=== PATIENT | female | born 1950 | race Caucasian/White ===

== ENCOUNTER → 2018-02-10 10:15 | Outpatient (CLI) | payer MEDICARE, SELFPAY ==
--- NOTE | 2018-02-10 | BRBX_PTH ---
PATIENT: LITO GONZALEZ LOC: [facility] U#:[id number] AGE/SX: 75/F ROOM: RE02/10/[address]: Dr. Mars Sanchez MD : [id number] BED: DIS: SPEC #: [id number] RECD: 02/10/18 14:33 STATUS: AJ LINDA #: [id number] CONRADO: 02/10/18 00:[address]: Mars Sanchez DEPT: SURGICAL PATHOLOGY RECD BY: Hal Jean ENTERED: 02/10/18 14:33 SP TYPE: BREAST BX OTHR DR: Dr. Marleny Camacho MD Tissues: Left breast, NOS Procedures: Surgery Specimen Level IV HEADER OPERATION: Left breast stereotactic needle core biopsy PRE-OP DIAGNOSIS: Left UIQ density at prior biopsy site TISSUE SUBMITTED: Left breast ISCHEMIC TIME: 1 minute FIXATION TIME: 8 hours MICROSCOPIC DIAGNOSIS Left breast, upper inner quadrant density at prior biopsy site, stereotactic needle core biopsy: Focal area of dense fibrosis, foreign body giant cell reaction and old hemorrhage. Fatty breast tissue with focal minimal fibrocystic changes and intraductal hyperplasia without atypia. A minute fragment of hyalinized fibroadenoma. Focal microcalcification. Negative for malignancy. AUDRA:forrest 02/11/18 COMMENT Please make reference to previous specimen ([id number]) left breast, stereotactic needle core biopsy, with diagnosis of adenosis and intraductal hyperplasia without atypia and hyalinized fibroadenoma with focal calcification. Correlation with clinical, radiologic findings and appropriate follow up are necessary. MICROSCOPIC DESCRIPTION Slides are reviewed. GROSS DESCRIPTION Received in fixative is one container labeled with the patient's name and designated left breast. The specimen consists of multiple elongated fragments of marquez-yellow fibroadipose tissue mixed with blood clot that in aggregate measure 5 x 3 x 1 cm. The entire specimen is submitted in eight cassettes. / AUDRA:forrest 02/10/18 TC:5 CPT: 49435
--- NOTE | 2018-02-10 12:24 | PCM.OPRPT ---
Problem List (1) Abnormal mammogram of left breast Status: Acute Report of Operation Date of Procedure: 02/10/18 Pre-Operative Diagnosis: r92.8 abnormal mammogram left Post-Operative Diagnosis: Same Surgery/Procedure Performed:: 37220 stereotactic breast biopsy left Type of Anesthesia:: Local Description of Procedure: Patient was brought into the stereotactic unit placed in the prone position on the fissure table. The left breast was brought down through the opening. A medial to lateral view was obtained. Previous biopsy clip and biopsy area was identified. ?15? views were obtained. I prepped the breast with Betadine. I injected 1% lidocaine plain. A skin hiro was made. Local was injected deep into the breast and the needle was advanced. 2 more stereo views were obtained. The needle was fired 360? circumferential biopsies were obtained. I then backed the needle 10 mm and I took more stereotactic breast biopsies. I then placed a small titanium clip in the biopsy cavity. The breast was x-rayed the clip was in good placement. I sutured the skin closed with a [id number] suture of 4-0 nylon. Sterile dressings were applied. Standard mammograms were obtained. The patient tolerated the procedure well. - Admit VTE Documentation VTE Present on Admission: No VTE Mechan Device Prophylaxis: None VTE Pharm Prophylaxis ordered?: No Reason prophylaxis not ordered:: Treatment Not Indicated
--- NOTE | 2018-02-10 12:32 | OP.PCM_ITS ---
Problem List (1) Abnormal mammogram of left breast Status: Acute Report of Operation Date of Procedure: 02/10/18 Pre-Operative Diagnosis: r92.8 abnormal mammogram left Post-Operative Diagnosis: Same Surgery/Procedure Performed:: 19919 stereotactic breast biopsy left Type of Anesthesia:: Local Description of Procedure: Patient was brought into the stereotactic unit placed in the prone position on the fissure table. The left breast was brought down through the opening. A medial to lateral view was obtained. Previous biopsy clip and biopsy area was identified. ?15? views were obtained. I prepped the breast with Betadine. I injected 1% lidocaine plain. A skin hiro was made. Local was injected deep into the breast and the needle was advanced. 2 more stereo views were obtained. The needle was fired 360? circumferential biopsies were obtained. I then backed the needle 10 mm and I took more stereotactic breast biopsies. I then placed a small titanium clip in the biopsy cavity. The breast was x-rayed the clip was in good placement. I sutured the skin closed with a figure-of- eight suture of 4-0 nylon. Sterile dressings were applied. Standard mammograms were obtained. The patient tolerated the procedure well. - Admit VTE Documentation VTE Present on Admission: No VTE Mechan Device Prophylaxis: None VTE Pharm Prophylaxis ordered?: No Reason prophylaxis not ordered:: Treatment Not Indicated
== END ==
PROVIDERS: Family Provider Internal Medicine; PCP Internal Medicine; Visit Provider Surgery
DX: D24.2 Benign neoplasm of left breast (principal); N60.12 Diffuse cystic mastopathy of left breast; N60.92 Unspecified benign mammary dysplasia of left breast; I47.1 Supraventricular tachycardia; I70.0 Atherosclerosis of aorta; I48.0 Paroxysmal atrial fibrillation; I10 Essential (primary) hypertension; G93.40 Encephalopathy, unspecified; E11.65 Type 2 diabetes mellitus with hyperglycemia; E66.01 Morbid (severe) obesity due to excess calories; Z68.41 Body mass index [BMI] 40.0-44.9, adult; Z79.82 Long term (current) use of aspirin; Z79.84 Long term (current) use of oral hypoglycemic drugs; Z79.899 Other long term (current) drug therapy
CPT/HCPCS: 19081; 88305; J7050; A4648

== ENCOUNTER → 2018-08-15 09:09 | Outpatient (CLI) | payer MEDICARE, SELFPAY ==
[2018-02-06 09:25] VITALS: BMI 43.7
--- NOTE | 2018-08-15 09:14 | BI_ITS ---
MAMMOGRAPHY - UNILATERAL DIAGNOSTIC: LEFT BREAST REASON FOR EXAM: Female, 68 years old. Six-month follow-up of stereotactic biopsy of the nodular density in the upper slightly medial portion of the left breast. PERTINENT HISTORY: Non-contributory. TECHNIQUE: Digital unilateral breast ernie (3D mammographic acquisition) in the CC and MLO projections. 2-D mediolateral oblique (MLO) and craniocaudad (CC) views of both breasts were obtained. CAD: Full Field Digital Mammography with Computer Added Detection was performed. COMPARISON: Comparison is made with prior outside examination dated November 19, 2017. FINDINGS: Breast Composition: There are scattered areas of fibroglandular density. A tissue marker is seen within nodular density in the slightly upper medial portion of the left breast. The nodular density has increased in size as compared to prior study. This most likely secondary to possible hematoma. Further follow-up is recommended. No other significant abnormalities are identified. BI/DIAG MAMM W/CAD, UNILAT IMPRESSION: Status post biopsy of a nodular density in the slightly upper medial portion of the left breast as described. The nodular density at the biopsy site as increase in size and may be related to postoperative film. Further follow-up is recommended. ASSESSMENT CATEGORY: BIRADS Category 3: Probably Benign - Short-Interval Follow-up Suggested. A letter regarding these results will be sent to the patient by the facility within 30 days. Approximately 10% of breast cancers are not detected by mammography. A normal mammogram should not delay biopsy of a clinically suspicious abnormality. Electronically Signed: Murali Malhotra MD at 10:33 EST Tel [phone], Service support ,
--- OUTSIDE RECORDS SUMMARY | 2018-10-19 16:08 | XMS RPT_ITS ---
:1950 Author Organization OHIP Support Name Relationship Address Phone OSIRIS, ADA Unavailable . + [place] [address] ANIBAL GONZALEZ Unavailable [address] + [place] [address] R Unavailable Unavailable Unavailable OSIRIS, ADA Unavailable Unavailable + ANIBAL GONZALEZ Unavailable [address] + [place] [address] R Unavailable Unavailable Unavailable OSIRIS, ADA Unavailable . + [place] [address] ANIBAL GONZALEZ Unavailable [address] + [place] [address] R Unavailable Unavailable Unavailable OSIRIS, ADA Unavailable . + [place] [address] ANIBAL GONZALEZ Unavailable [address] + [place] [address] R Unavailable Unavailable Unavailable OSIRIS, ADA Unavailable . + [place] [address] ANIBAL GONZALEZ Unavailable [address] + [place] [address] R Unavailable Unavailable Unavailable OSIRIS, ADA Unavailable . + [place] [address] ANIBAL GONZALEZ Unavailable [address] + [place] [address] R Unavailable Unavailable Unavailable OSIRIS, ADA Unavailable . + [place] [address] ANIBAL GONZALEZ Unavailable [address] + [place] [address] R Unavailable Unavailable Unavailable OSIRIS, ADA Unavailable . [phone] [place] [address] ANIBAL GONZALEZ Unavailable [address] [phone] [place] [address] R Unavailable Unavailable Unavailable Care Team Providers Name Role Phone TALAMPAS, ABBY D Referring Unavailable TALAMPAS, ABBY D Attending Unavailable TALAMPAS, ABBY D Referring Unavailable TALAMPAS, ABBY D Referring Unavailable TALAMPAS, ABBY D Referring Unavailable TALAMPAS, ABBY D Referring Unavailable TALAMPAS, ABBY D Attending Unavailable TALAMPAS, ABBY D Referring Unavailable Laura, Mars Attending Unavailable Laura, Mars Referring Unavailable Talampas, Abby Primary Care Unavailable [place], Mars Attending Unavailable Talampas, Abby Referring Unavailable Ac Hubbard Attending Unavailable Talampas, Abby Referring Unavailable Talampas, Abby Primary Care Unavailable Celia Petit Attending Unavailable [place], Mars Attending Unavailable Talampas, Abby Referring Unavailable Talampas, Abby Primary Care Unavailable [place] Attending Unavailable Talampas, Abby Primary Care Unavailable Laura, Mars Attending Unavailable Talampas, Abby Referring Unavailable Talampas, Abby Primary Care Unavailable Laura, Mars Attending Unavailable PROBLEMS PROBLEMS DATE TYPE CONDITION / CODE ATTENDING STATUS SOURCE 08/21/2018 Unknown R92.8 - Other Mars Sanchez Active [place] abnormal and [facility] inconclusive Hospital findings on Repository diagnostic imaging of breast / R92.8(ICD-10) 12/18/2017 Active Unknown / NA Active [facility] UNK(Unknown) [facility] [place] Repository 11/19/2017 Active Encounter for NA Active [facility] screening mammogram [facility] [place] for malignant Repository neoplasm of breast / Z12.31(ICD-10) 05/08/2017 Active Type 2 diabetes NA Active [facility] mellitus with other [facility] [place] specified Repository complication / E11.69(ICD-10) 05/08/2017 Active Hyperlipidemia, NA Active [facility] unspecified / [facility] [place] E78.5(ICD-10) Repository 03/26/2016 Active Essential (primary) NA Active [facility] hypertension / [facility] [place] I10(ICD-10) Repository 11/01/2017 Active Type 2 diabetes NA Active [facility] mellitus without [facility] [place] complications / Repository E11.9(ICD-10) 11/01/2017 Active 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 [place] [address] OFFICE VISIT Date of Service: 08/21/18 MR#: [id number] Acct: [id number] Name: LITO GONZALEZ Rep #: [id number] : 1950 Provider: Mars Sanchez MD Age/Sex: 68/F Location: [facility] Status: Draft Intake Intake Visit Reasons: 6 MONTH F/U L Breast U/S 08/15/18 Chief Complaint: 6 month left breast post biopsy Supervisor Fur Dressing Required: No Is patient in pain?: No Allergies No Known Allergies Allergy (Verified 08/21/18 12:47) Medications Aspirin [Aspirin, Baby] 81 mg PO DAILY@0800 #30 tab.chew 09/21/15 [Rx Confirmed 02/18/18] metformin 500 mg tablet 500 mg PO QDAY tab 10/25/17 [History Confirmed 02/18/18] metoprolol succinate ER 50 mg tablet,extended release 24 hr 50 mg PO DAILY #90 tab 07/09/18 [Rx] Is last menstrual period known: No Post menopausal: Yes Patient : No PFSH Medical History Valvular heart disease (Chronic) Sepsis (Acute) Diverticulitis (Acute) Encephalopathy (Acute) DKA (diabetic ketoacidoses) (Acute) Arthritis (Acute) Paroxysmal SVT (supraventricular tachycardia) (Acute) Hypertension (Chronic) Aortic valve calcification (Chronic) Paroxysmal atrial fibrillation (Chronic) Diabetes type 2, uncontrolled (Chronic) Morbid obesity (Chronic) Microcalcification of left breast on mammogram (Acute) Surgical History History of total right knee replacement (TKR) (Chronic) History of appendectomy (Chronic) History of total hysterectomy (Chronic) History of total left knee replacement (Chronic) S/P laparoscopic cholecystectomy (Acute) history left breast stereotactic biopsy (Acute 02/10/18) Family History Father COPD (chronic obstructive pulmonary disease) CAD (coronary artery disease) Mother Cancer Breast cancer Social History Smoking Status: Never smoker second hand exposure: No alcohol intake: never substance use type: does not use caffeine: No what type of physical activity do you participate in: none frequency: does not exercise seatbelt use: always HPI HPI HPI: LITO GONZALEZ, is a 68 F who presents to the office today for follow-up from a left stereotactic breast biopsy which was completed on 02/10/2018 pathology report came back as focal area of dense fibrosis foreign body giant cell reaction and old hemorrhage. Fatty breast tissue with focal minimal fibrocystic changes and intraductal hyperplasia without atypia. There is minute fragments of a hyalinized fibroadenoma and a few focal microcalcifications she recently obtained a mammogram on the left side on August 15, 2018. This showed status post biopsy of a nodular density in the slightly upper medial portion of the left breast. Nodular density at the biopsy site is increased in size and may be related to postoperative and they recommended further films in a short interval she has not been having any pain she has not noticed any cellulitis or signs of infection. Exam Chest Other: Biopsy site on the left side is healing without signs of infection. I cannot palpate any nodular abnormalities within her left breast. Her axillary exam is negative on the left side and a left supraclavicular exam is negative. The right side also shows normal fibroglandular pattern no new lumps or bumps are identified her axillary exam on the right side is negative as is her supraclavicular exam. Assessment AND Plan Problems 1. Abnormal mammogram of left breast R92.8 Plan The patient will be seen at this time and she will be able to obtain her routine mammograms in another 6 months on both sides. I will see her back at that time. Coding Level of Care Code Off vis,est,level 2 Diagnoses Abnormal mammogram of left breast R92.8 Date Mars Sanchez MD Cosigner Signature: Date (if applicable) CC: DIAG MAMM W/CAD, Observed: 08/15/2018 Status: F Source: K[place]STYN [place] 9:15 AM [facility] REPOSITORY [facility] Imaging Services [address] [place] [address] DIAG MAMM W/CAD, UNILAT MR#: [id number] Acct: [id number] Name: LITO GONZALEZ Rep #: [id number] : 1950 F 68 From: Murali Malhotra MD PCP: Abby Camacho MD Status: REG CLI Study: DIAG MAMM W/CAD, UNILAT Date of Exam: 08/15/18 Exam# [id number] Ordering Dr: Mars Sanchez MD MAMMOGRAPHY - UNILATERAL DIAGNOSTIC: LEFT BREAST REASON FOR EXAM: Female, 68 years old. Six-month follow- up of stereotactic biopsy of the nodular density in the upper slightly medial portion of the left breast. PERTINENT HISTORY: Non-contributory. TECHNIQUE: Digital unilateral breast antonio (3D mammographic acquisition) in the CC and MLO projections. 2-D mediolateral oblique (MLO) and craniocaudad (CC) views of both breasts were obtained. CAD: Full Field Digital Mammography with Computer Added Detection was performed. COMPARISON: Comparison is made with prior outside examination dated November 19, 2017. FINDINGS: Breast Composition: There are scattered areas of fibroglandular density. A tissue marker is seen within nodular density in the slightly upper medial portion of the left breast. The nodular density has increased in size as compared to prior study. This most likely secondary to possible hematoma. Further follow-up is recommended. No other significant abnormalities are identified. BI/DIAG MAMM W/CAD, UNILAT IMPRESSION: Status post biopsy of a nodular density in the slightly upper medial portion of the left breast as described. The nodular density at the biopsy site as increase in size and may be related to postoperative film. Further follow-up is recommended. ASSESSMENT CATEGORY: BIRADS Category 3: Probably Benign - Short-Interval Follow- up Suggested. A letter regarding these results will be sent to the patient by the facility within 30 days. Approximately 10% of breast cancers are not detected by mammography. A normal mammogram should not delay biopsy of a clinically suspicious abnormality. Electronically Signed: Murali Malhotra MD at 10:33 EST Tel [phone], Service support , CC: Mars Sanchez MD; Abby Camacho MD Animal Cruelty Investigation Supervisor: Signed PROGRESS Observed: 05/12/2018 Status: COMPLETED Source: [place] 1:21 PM [facility] [place] REPOSITORY HNO ID: [id number] Author: Abby Camacho Service: (none) Author Type: Physician Type: Progress Notes Filed: 05/26/2018 12:43 AM Note Text: Patient presents with: Recheck: Follow up Imm/Inj: Flu Vaccine SUBJECTIVE: Lito Gonzalez is a 67 year old year old lady here today for 6 month follow up appointment for review of medical conditions. Sleeps well. Some nocturia but able to go back to sleep easily. Mostly once a night. Treadmill at home Plans to start back at 15 minutes and work up to 20 minutes. Had insect bites on legs--triple antibiotic for over a week. PAST MEDICAL HISTORY Diagnosis Date - ABNORMAL LIVER FUNCTION STUDY 10/20/2007 - Arrhythmia - Diabetes (HCC) - GENERAL OSTEOARTHROSIS 05/10/2008 - HYPERGLYCEMIA 10/20/2007 - HYPERLIPIDEMIA NEC/NOS 10/12/2005 - HYPERTENSION NOS 10/12/2005 - Impaired fasting glucose 10/20/2007 - Intramural leiomyoma of uterus 1995 - Obesity, unspecified - Palpitations 2003 hospitalized September 2003 for evaluation - Polycythemia, secondary 03/28/2011 - Pure hypercholesterolemia - TACHYCARDIA NOS 04/03/2005 Current Outpatient Prescriptions: metFORMIN (GLUCOPHAGE) 500 mg tablet Take 1 tablet by mouth daily with breakfast. blood sugar diagnostic (BLOOD GLUCOSE TEST) test strip Test blood sugar(s) 4 times daily. Dx: Type 2 DM - Uncontrolled E11.65 Insulin: Yes; Accucheck [facility] Medical: [phone] aspirin, enteric coated (ASPIRIN, ENTERIC COATED) 81 mg EC tablet Take 1 tablet by mouth once daily. metoprolol succinate ER (TOPROL XL) 50 mg 24 hr tablet Take 1 tablet by mouth once daily. Lancets lancets Test blood sugar(s) 4 times daily. Dx: Type 2 DM - Uncontrolled E11.65 Insulin: Yes BRANNON-600 WITH VITAMIN D 600 MG-200 UNIT TAB Take one(1) tablet two(2) times daily. COMPOUNDED PRESCRIPTION Herbal Laxative Take as directed. GLUCOSAMINE 1,000 MG ORAL TAB Take one(1) tablet daily. benzonatate (TESSALON PERLE) 100 mg capsule Take 2 capsules by mouth three times daily as needed. (Patient not taking: Reported on 05/12/2018 ) naproxen sodium (ALEVE) 220 mg tablet Take 1 tablet by mouth twice daily with meals. TAKE WITH FOOD (Patient not taking: Reported on 05/12/2018 ) ranitidine (ZANTAC) 150 mg tablet Take 1 tablet by mouth once daily as needed (Attempting to wean prilosec). No current facility-administered medications for this visit. OBJECTIVE: BP 130/60 Pulse 76 Resp 20 Wt 106.3 kg (234 lb 6.4 oz) BMI 47.34 kg/m? Patient is alert, oriented times 3, no apparent distress, affect is bright, reactive. Last 5 Encounter BP Readings: Date: BP: 05/12/2018 130/60 11/06/2017 120/70 10/23/2017 122/70 05/08/2017 110/80 12/31/2016 128/78 Last 5 Encounter Wt Readings: Date: Wt: 05/12/2018 106.3 kg (234 lb 6.4 oz) 11/06/2017 105.7 kg (233 lb) 10/23/2017 106.1 kg (234 lb) 05/08/2017 104.3 kg (230 lb) 12/31/2016 100.7 kg (222 lb) Heart: Regular rate, rhythm, no murmurs, gallops, rubs. Lungs: Clear to auscultation, bilaterally, breathing non labored. Ext: No cyanosis, clubbing; mild doughy bilateral lower extremities edema. resolving insect bites--pink papules Component Latest Ref Rng AND Units 05/01/2017 11/01/2017 05/07/2018 Protein, Total 6.3 - 8.0 g/dL 7.1 Albumin 3.9 - 4.9 g/dL 4.5 Calcium 8.5 - 10.2 mg/dL 9.8 9.9 10.1 Bilirubin, Total 0.2 - 1.3 mg/dL 0.7 Alkaline Phosphatase 34 - 123 U/L 63 AST 13 - 35 U/L 23 Glucose 74 - 99 mg/dL 103 (H) 114 (H) 107 (H) BUN 7 - 21 mg/dL 25 (H) 23 (H) 24 (H) Creatinine 0.58 - 0.96 mg/dL 0.91 0.90 0.92 Sodium 136 - 144 mmol/L 143 142 141 Potassium 3.7 - 5.1 mmol/L 4.4 4.5 4.3 Chloride 97 - 105 mmol/L 102 104 100 CO2 22 - 30 mmol/L 28 28 26 Anion Gap 9 - 18 mmol/L 13 10 15 ALT 7 - 38 U/L 27 eGFR- >60 >60 >60 eGFR-All Other Races . >60 >60 >60 WBC 3.70 - 11.00 k/uL 7.82 RBC 3.90 - 5.20 m/uL 4.99 Hemoglobin 11.5 - 15.5 g/dL 15.7 (H) Hematocrit 36.0 - 46.0 % 50.4 (H) MCV 80.0 - 100.0 fL 101.0 (H) MCH 26.0 - 34.0 pG 31.5 MCHC 30.5 - 36.0 g/dL 31.2 RDW-CV 11.5 - 15.0 % 13.0 Platelet Count 150 - 400 k/uL 199 MPV 9.0 - 12.7 fL 11.7 Absolute nRBC <0.01 k/uL <0.01 Cholesterol, Total <200 mg/dL 180 185 Triglyceride <150 mg/dL 96 108 HDL Cholesterol >39 mg/dL 38 (L) 37 (L) LDL Cholesterol <100 mg/dL 123 (H) 126 (H) Non HDL Cholesterol <130 mg/dL 142 (H) 148 (H) Fasting Time hrs 9 9 VLDL Cholesterol <30 mg/dL 19 22 TC:HDL Ratio <5.10 4.74 5.00 LDL:HDL Ratio <2.54 3.24 (H) 3.41 (H) Creatinine, Ur Random (UCRR) 20 - 300 mg/dL 28.5 28.5 Albumin, Urine Random 0.0 - 23.0 mg/L <12.0 <12.0 Albumin/Creat Ratio 0 - 30 mg/g Not calculated Not calculated Hemoglobin A1C 4.3 - 5.6 % 6.2 (H) 6.0 (H) 5.9 (H) Estimated Average Glucose mg/dL 131 126 123 TSH 0.400 - 5.500 uU/mL 1.880 ASSESSMENT AND PLAN: Encounter Diagnosis ICD-10-CM 1. Controlled type 2 diabetes mellitus without complication, without long-term current use of insulin ([facility]) E11.9 HGB A1C COMP METABOLIC PANEL CBC 2. Hypertension goal BP (blood pressure) < 140/90 I10 COMP METABOLIC PANEL CBC 3. Hyperlipidemia associated with type 2 diabetes mellitus ([facility]) E11.69 LIPID PANEL BASIC E78.5 4. BMI 45.0-49.9, adult ([facility]) Z68.42 5. Need for vaccination Z23 INFLUENZA SEASONAL HIGH DOSE AGE 65+ 6. Polycythemia, secondary D75.1 CBC 7. Generalized OA M15.9 Above issues addressed with patient. Patient involved in shared decision making for management of medical issues. History and medications reviewed. Epic updated as needed Refills taken care of and meds adjusted as indicated after reviewed history, exam and labs. Health Maintenance reviewed. Updated record and/or ordered tests as recorded. Encouraged on efforts at healthy diet and regular exercise and adequate sleep. Needs to keep working on diet and exercise with lifestyle changes for effective weight loss as well as control of DM, and control of BP and lipids. The majority of the visit was spent counseling and/or coordinating care for the patient. Prno-sz-[id number] time was at least 25 minutes. Abby Camacho MD PROGRESS Observed: 05/12/2018 Status: COMPLETED Source: [place] 1:06 PM [facility] REPOSITORY HNO ID: [id number] Author: Helga Coy LPN Service: (none) Author Type: (none) Type: Progress Notes Filed: 05/26/2018 12:43 AM Note Text: 67 year old female here for INACTIVATED INFLUENZA VACCINE. Season Patient is identified by name and date of : Yes [] CONTRAINDICATIONS color enhanced section Age less than 6 months? No Allergy to eggs, chicken, chicken feathers, or chicken dander? No Allergy to thimerosal (a preservative) or formaldehyde, gelatin? No History of severe reaction to any vaccine component or a previous dose of influenza vaccination? No History of Guillain-[place] Syndrome within 6 weeks after a previous influenza vaccine? No Patient is not moderately or severely ill? No Current temperature greater or equal to 100.4F? No History of Bone Marrow Transplant prior 6 months or solid organ transplant in the past 3 months ? No History of fainting after a prior injection or medical procedure? No- ? If patient has fainted in the past, the CDC recommends sitting or lying down for 15 minutes after the vaccination. [] VERIFICATION color enhanced section Was the answer Yes for any of the above contraindications? No contraindications present. Acceptable to proceed with vaccine. Patient/guardian agrees the above answers are true to the best of their knowledge? Yes Flu vaccine information sheet given? Yes See immunization activity in [facility] for details of immunizations adminstered today. Patient age: [age] year old For The Flu Season 6-35 months old: Fluzone 0.25 ml - IM (Preservative Free) 3 years of age: Fluzone 0.5 ml - IM (Preservative Free) 3 years and older: Fluzone 0.5 ml- IM-(with Preservatives) 65+ years old: 2-49 years old Fluzone High-Dose 0.5 ml - IM (Preservative Free) FLUMIST- intranasal REMEMBER: If patient is less than 9 years of age and this is the first vaccine of Influenza to be received in any flu season, they should receive a second dose in one months time. CNOV Observed: 05/12/2018 Status: COMPLETED Source: [place] 11:40 AM [facility] REPOSITORY Office Visit (INTMWS) LITO GONZALEZ ([id number]) 1950 F Date Time Provider Department 05/12/18 11:40 AM ABBY CAMACHO INTMWS During your visit today, we recorded the following information about you: Pulse Respiration Blood pressure Weight 76/minute 20/minute 130/60 106.3 kg Helga Coy ORLY 05/26/2018 12:43 AM Signed 67 year old female here for INACTIVATED INFLUENZA VACCINE. [id number] Season Patient is identified by name and date of : Yes [] CONTRAINDICATIONS color enhanced section Age less than 6 months? No Allergy to eggs, chicken, chicken feathers, or chicken dander? No Allergy to thimerosal (a preservative) or formaldehyde, gelatin? No History of severe reaction to any vaccine component or a previous dose of influenza vaccination? No History of Guillain-[place] Syndrome within 6 weeks after a previous influenza vaccine? No Patient is not moderately or severely ill? No Current temperature greater or equal to 100.4F? No History of Bone Marrow Transplant prior 6 months or solid organ transplant in the past 3 months ? No History of fainting after a prior injection or medical procedure? No- ? If patient has fainted in the past, the CDC recommends sitting or lying down for 15 minutes after the vaccination. [] VERIFICATION color enhanced section Was the answer Yes for any of the above contraindications? No contraindications present. Acceptable to proceed with vaccine. Patient/guardian agrees the above answers are true to the best of their knowledge? Yes Flu vaccine information sheet given? Yes See immunization activity in [facility] for details of immunizations adminstered today. Patient age: [age] year old For The 1873-7498 Flu Season 6-35 months old: Fluzone 0.25 ml - IM (Preservative Free) 3 years of age: Fluzone 0.5 ml - IM (Preservative Free) 3 years and older: Fluzone 0.5 ml- IM-(with Preservatives) 65+ years old: 2-49 years old Fluzone High-Dose 0.5 ml - IM (Preservative Free) FLUMIST- intranasal REMEMBER: If patient is less than 9 years of age and this is the first vaccine of Influenza to be received in any flu season, they should receive a second dose in one months time. Abby Camacho MD 05/26/2018 12:43 AM Signed Patient presents with: Recheck: Follow up Imm/Inj: Flu Vaccine SUBJECTIVE: Lito Gonzalez is a 67 year old year old lady here today for 6 month follow up appointment for review of medical conditions. Sleeps well. Some nocturia but able to go back to sleep easily. Mostly once a night. Treadmill at home Plans to start back at 15 minutes and work up to 20 minutes. Had insect bites on legs--triple antibiotic for over a week. PAST MEDICAL HISTORY Diagnosis Date - ABNORMAL LIVER FUNCTION STUDY 10/20/2007 - Arrhythmia - Diabetes (HCC) - GENERAL OSTEOARTHROSIS 05/10/2008 - HYPERGLYCEMIA 10/20/2007 - HYPERLIPIDEMIA NEC/NOS 10/12/2005 - HYPERTENSION NOS 10/12/2005 - Impaired fasting glucose 10/20/2007 - Intramural leiomyoma of uterus 1995 - Obesity, unspecified - Palpitations 2003 hospitalized September 2003 for evaluation - Polycythemia, secondary 03/28/2011 - Pure hypercholesterolemia - TACHYCARDIA NOS 04/03/2005 Current Outpatient Prescriptions: metFORMIN (GLUCOPHAGE) 500 mg tablet Take 1 tablet by mouth daily with breakfast. blood sugar diagnostic (BLOOD GLUCOSE TEST) test strip Test blood sugar(s) 4 times daily. Dx: Type 2 DM - Uncontrolled E11.65 Insulin: Yes; Accucheck [facility] Medical: [phone] aspirin, enteric coated (ASPIRIN, ENTERIC COATED) 81 mg EC tablet Take 1 tablet by mouth once daily. metoprolol succinate ER (TOPROL XL) 50 mg 24 hr tablet Take 1 tablet by mouth once daily. Lancets lancets Test blood sugar(s) 4 times daily. Dx: Type 2 DM - Uncontrolled E11.65 Insulin: Yes BRANNON-600 WITH VITAMIN D 600 MG-200 UNIT TAB Take one(1) tablet two(2) times daily. COMPOUNDED PRESCRIPTION Herbal Laxative Take as directed. GLUCOSAMINE 1,000 MG ORAL TAB Take one(1) tablet daily. benzonatate (TESSALON PERLE) 100 mg capsule Take 2 capsules by mouth three times daily as needed. (Patient not taking: Reported on 05/12/2018 ) naproxen sodium (ALEVE) 220 mg tablet Take 1 tablet by mouth twice daily with meals. TAKE WITH FOOD (Patient not taking: Reported on 05/12/2018 ) ranitidine (ZANTAC) 150 mg tablet Take 1 tablet by mouth once daily as needed (Attempting to wean prilosec). No current facility-administered medications for this visit. OBJECTIVE: BP 130/60 Pulse 76 Resp 20 Wt 106.3 kg (234 lb 6.4 oz) BMI 47.34 kg/m? Patient is alert, oriented times 3, no apparent distress, affect is bright, reactive. Last 5 Encounter BP Readings: Date: BP: 05/12/2018 130/60 11/06/2017 120/70 10/23/2017 122/70 05/08/2017 110/80 12/31/2016 128/78 Last 5 Encounter Wt Readings: Date: Wt: 05/12/2018 106.3 kg (234 lb 6.4 oz) 11/06/2017 105.7 kg (233 lb) 10/23/2017 106.1 kg (234 lb) 05/08/2017 104.3 kg (230 lb) 12/31/2016 100.7 kg (222 lb) Heart: Regular rate, rhythm, no murmurs, gallops, rubs. Lungs: Clear to auscultation, bilaterally, breathing non labored. Ext: No cyanosis, clubbing; mild doughy bilateral lower extremities edema. resolving insect bites--pink papules Component Latest Ref Rng AND Units 05/01/2017 11/01/2017 05/07/2018 Protein, Total 6.3 - 8.0 g/dL 7.1 Albumin 3.9 - 4.9 g/dL 4.5 Calcium 8.5 - 10.2 mg/dL 9.8 9.9 10.1 Bilirubin, Total 0.2 - 1.3 mg/dL 0.7 Alkaline Phosphatase 34 - 123 U/L 63 AST 13 - 35 U/L 23 Glucose 74 - 99 mg/dL 103 (H) 114 (H) 107 (H) BUN 7 - 21 mg/dL 25 (H) 23 (H) 24 (H) Creatinine 0.58 - 0.96 mg/dL 0.91 0.90 0.92 Sodium 136 - 144 mmol/L 143 142 141 Potassium 3.7 - 5.1 mmol/L 4.4 4.5 4.3 Chloride 97 - 105 mmol/L 102 104 100 CO2 22 - 30 mmol/L 28 28 26 Anion Gap 9 - 18 mmol/L 13 10 15 ALT 7 - 38 U/L 27 eGFR- >60 >60 >60 eGFR-All Other Races . >60 >60 >60 WBC 3.70 - 11.00 k/uL 7.82 RBC 3.90 - 5.20 m/uL 4.99 Hemoglobin 11.5 - 15.5 g/dL 15.7 (H) Hematocrit 36.0 - 46.0 % 50.4 (H) MCV 80.0 - 100.0 fL 101.0 (H) MCH 26.0 - 34.0 pG 31.5 MCHC 30.5 - 36.0 g/dL 31.2 RDW-CV 11.5 - 15.0 % 13.0 Platelet Count 150 - 400 k/uL 199 MPV 9.0 - 12.7 fL 11.7 Absolute nRBC <0.01 k/uL <0.01 Cholesterol, Total <200 mg/dL 180 185 Triglyceride <150 mg/dL 96 108 HDL Cholesterol >39 mg/dL 38 (L) 37 (L) LDL Cholesterol <100 mg/dL 123 (H) 126 (H) Non HDL Cholesterol <130 mg/dL 142 (H) 148 (H) Fasting Time hrs 9 9 VLDL Cholesterol <30 mg/dL 19 22 TC:HDL Ratio <5.10 4.74 5.00 LDL:HDL Ratio <2.54 3.24 (H) 3.41 (H) Creatinine, Ur Random (UCRR) 20 - 300 mg/dL 28.5 28.5 Albumin, Urine Random 0.0 - 23.0 mg/L <12.0 <12.0 Albumin/Creat Ratio 0 - 30 mg/g Not calculated Not calculated Hemoglobin A1C 4.3 - 5.6 % 6.2 (H) 6.0 (H) 5.9 (H) Estimated Average Glucose mg/dL 131 126 123 TSH 0.400 - 5.500 uU/mL 1.880 ASSESSMENT AND PLAN: Encounter Diagnosis ICD-10-CM 1. Controlled type 2 diabetes mellitus without complication, without long-term current use of insulin ([facility]) E11.9 HGB A1C COMP METABOLIC PANEL CBC 2. Hypertension goal BP (blood pressure) < 140/90 I10 COMP METABOLIC PANEL CBC 3. Hyperlipidemia associated with type 2 diabetes mellitus ([facility]) E11.69 LIPID PANEL BASIC E78.5 4. BMI 45.0-49.9, adult ([facility]) Z68.42 5. Need for vaccination Z23 INFLUENZA SEASONAL HIGH DOSE AGE 65+ 6. Polycythemia, secondary D75.1 CBC 7. Generalized OA M15.9 Above issues addressed with patient. Patient involved in shared decision making for management of medical issues. History and medications reviewed. Epic updated as needed Refills taken care of and meds adjusted as indicated after reviewed history, exam and labs. Health Maintenance reviewed. Updated record and/or ordered tests as recorded. Encouraged on efforts at healthy diet and regular exercise and adequate sleep. Needs to keep working on diet and exercise with lifestyle changes for effective weight loss as well as control of DM, and control of BP and lipids. The majority of the visit was spent counseling and/or coordinating care for the patient. Bxxa-cq-ddlg time was at least 25 minutes. Abby Camacho MD Referring Provider: SELF [200] Allergies As of Date: 05/12/2018 Noted Allergy Reaction LIPITOR (ATORVASTATIN) 06/27/2016 2 - Rash Comments: red itchy rash around neck--resolved after stopping med; hands froze with stiffness that started a week after taking a couple pills--resolving Date Reviewed: 05/12/2018 Reviewed by: Helga Coy LPN - Fully Assessed Reason for Visit: Recheck [92] Cmt: Follow up Imm/Inj [58] Cmt: Flu Vaccine Reason For Visit History Recorded Primary Visit Diagnosis:Controlled type 2 diabetes mellitus without complication, without long-term current use of insulin ([facility]CC) [E11.9] Other Visit Diagnoses:Hypertension goal BP (blood pressure) < 140/90 [I10] Hyperlipidemia associated with type 2 diabetes mellitus (HCC) [E11.69, E78.5] BMI 45.0-49.9, adult (HCC) [Z68.42] Need for vaccination [Z23] Polycythemia, secondary [D75.1] Generalized OA [M15.9] Order(s):INFLUENZA SEASONAL HIGH DOSE AGE 65+ [21105LAF] Order #: [id number] metFORMIN (GLUCOPHAGE) 500 mg tabletTake 1 tablet by mouth daily with breakfast.Disp: 90 tabletRfl: 3 HGB A1C [LOPYU1I] Order #: [id number] FUTURE COMP METABOLIC PANEL [SQCMP] Order #: [id number] FUTURE CBC [SQCBC] Order #: [id number] FUTURE LIPID PANEL BASIC [SQLIPB] Order #: [id number] FUTURE Prescriptions as of 05/12/2018 Sig: METFORMIN 500 MG TABLET Take 1 tablet by mouth daily * BLOOD SUGAR DIAGNOSTIC STRIPS Test blood sugar(s) 4 times d* ASPIRIN 81 MG TABLET,DELAYED * Take 1 tablet by mouth once d* METOPROLOL SUCCINATE ER 50 MG* Take 1 tablet by mouth once d* LANCETS Test blood sugar(s) 4 times d* * BRANNON-600 WITH VITAMIN D 600 MG* Take one(1) tablet two(2) haleigh* * COMPOUNDED PRESCRIPTION Herbal Laxative Take as direc* * GLUCOSAMINE SULFATE DIPOTASSI* Take one(1) tablet daily. BENZONATATE 100 MG CAPSULE Take 2 capsules by mouth thre* Patient not taking: Reported on 05/12/2018 NAPROXEN SODIUM 220 MG TABLET Take 1 tablet by mouth twice * Patient not taking: Reported on 05/12/2018 RANITIDINE 150 MG TABLET Take 1 tablet by mouth once d* Problem List As Of Date 05/12/2018 Noted Resolved BMI 45.0-49.9, adult (HCC) [Z68.42] More... TACHYCARDIA NOS [R00.0] INVALID FOR* Hypertension goal BP (blood pressure) < 140/90 *INVALID FOR* More... Hyperlipidemia associated with type 2 diabetes *INVALID FOR* Pain in joint, lower leg [M25.569] INVALID FOR*12/15/2010 Nonspecific abnormal results of liver function *INVALID FOR*03/04/2012 Diabetes mellitus type 2, controlled, without c*INVALID FOR* More... Generalized OA [M15.9] INVALID FOR* Polycythemia, secondary [D75.1] INVALID FOR* More... Colon cancer screening [Z12.11] INVALID FOR*01/05/2016 Acid indigestion [K30] INVALID FOR* Prescriptions ordered this encounter Disp Refills Start End METFORMIN 500 MG TABLET 90 t* 3 05/12/2018 Route: ORAL Sig: Take 1 tablet by mouth daily with breakfast. Medications Discontinued During This Encounter metFORMIN (GLUCOPHAGE) 500 mg tablet 90 t* 0 03/25/2018 05/12/2018 Route: ORAL Sig: Take 1 tablet by mouth daily with breakfast. Disc: Reason for discontinue is not on file. Disposition: Return in about 6 months (around 11/10/2018) for 6 months follow up. Follow-up and Disposition History Recorded Encounter Status:Closed by ABBY CAMACHO MD on 05/26/18 ALBUMIN/CREAT RATIO Collected: 05/07/2018 Status: F Source: [place] 7:53 AM [facility] REPOSITORY TYPE CODE TESTS RESULT OUT OF REFERENCE UNITS RANGE LAB UCRR 20-300 mg/dL 28.5 Creatinine,Ur ine,Ran LAB UALBR 0.0-23.0 mg/L <12.0 Albumin Urine Random LAB UALBCR 0-30 mg/g Not Albumin/Creat calculated Ratio Performed By: #### UACR #### [facility] [address], [place] [address] CBC Collected: 05/07/2018 Status: F Source: [place] 7:46 AM [facility] REPOSITORY TYPE CODE TESTS RESULT OUT OF REFERENCE UNITS RANGE LAB WBC 3.70-11.00 k/uL WBC 7.82 LAB RBC 3.90-5.20 m/uL RBC 4.99 LAB HGB 11.5-15.5 g/dL High Hemoglobin 15.7 LAB HCT 36.0-46.0 % High Hematocrit 50.4 LAB MCV 80.0-100.0 fL MCV High 101.0 LAB MCH 26.0-34.0 pG MCH 31.5 LAB MCHC 30.5-36.0 g/dL MCHC 31.2 LAB RDWCV 11.5-15.0 % RDW-CV 13.0 LAB PLTCT 150-400 k/uL Platelet Count 199 LAB MPV 9.0-12.7 fL MPV 11.7 LAB ABSNUC <0.01 k/uL Absolute nRBC <0.01 Performed By: #### CBC, CMP, LIPB, HBA1C #### [facility] [address] [place], [place] [address] COMP METABOLIC PANEL Collected: 05/07/2018 Status: F Source: [place] 7:46 AM [facility] REPOSITORY TYPE CODE TESTS RESULT OUT OF REFERENCE UNITS RANGE LAB TP 6.3-8.0 g/dL Protein, Total 7.1 LAB ALB 3.9-4.9 g/dL Albumin 4.5 LAB CA 8.5-10.2 mg/dL Calcium, Total 10.1 LAB TBIL 0.2-1.3 mg/dL Bilirubin, Total 0.7 LAB ALKP 34-123 U/L Alkaline Phosphatase 63 LAB AST 13-35 U/L AST 23 LAB GLU 74-99 mg/dL Glucose High 107 Result Comment: The [place] Diabetes Association (ADA) provides guidance for cutoff values for fasting glucose and random glucose. The ADA defines fasting as no caloric intake for at least 8 hours. Fas ting plasma glucose results between 100 to 125 mg/dL indicate increased risk for diabetes (prediabetes). Fasting plasma glucose results greater than or equal to 126 mg/dL meet the criteria for diagnosis of diabetes. In the absence of unequivocal hyperglycemia, results should be confirmed by repeat testing. In a patient with classic symptoms of hyperglycemia or hyperglycemic crisis, random plasma glucose results greater than or equal to 200 mg/dL meet the criteria for diagnosis of diabetes. Reference: Standards of Medical Care in Diabetes 2016, [place] Diabetes Association. Diabetes Care. 2016.39(Suppl 1). LAB BUN 7-21 mg/dL BUN High 24 LAB CRET 0.58-0.96 mg/dL Creatinine 0.92 LAB NA 136-144 mmol/L Sodium 141 LAB K 3.7-5.1 mmol/L Potassium 4.3 LAB CL 97-105 mmol/L Chloride 100 LAB CO2 22-30 mmol/L CO2 26 LAB AGAP 9-18 mmol/L Anion Gap 15 LAB ALT 7-38 U/L ALT 27 LAB GFRAA eGFR- Amer. >60 LAB GFRNAA . eGFR-All Other Races >60 Result Comment: eGFR (Estimated GFR) Units of measure: mL/min/1.73 meters squared eGFR is derived from the reexpressed MDRD Study equation using the following parameters: serum creatinine, age, gender and race. The creatinine assay has been calibrated to be traceable to IDMS. An eGFR <60 mL/min/1.73m2 for >3 months is consistent with chronic kidney disease. Refer to KDOQI guidelines for clinical interpretation. In patients with unstable renal function, e.g. those with acute kidney injury, the eGFR may not accurately reflect actual GFR. Performed By: #### CBC, CMP, LIPB, HBA1C #### [facility] [address] [place] [place] [id number] LIPID PANEL, BASIC Collected: 05/07/2018 Status: F Source: [place] 7:46 AM [facility] REPOSITORY TYPE CODE TESTS RESULT OUT OF REFERENCE UNITS RANGE LAB CHOL <200 mg/dL Cholesterol 185 Result Comment: <200 mg/dL, Desirable 200-239 mg/dL, Borderline high >239 mg/dL, High LAB TRIGLY <150 mg/dL Triglyceride 108 Result Comment: <150 mg/dL, Normal 150-199 mg/dL, Borderline high 200-499 mg/dL, High >499 mg/dL, Very high LAB HDL >39 mg/dL HDL-Cholesterol Low 37 Result Comment: 40-59 mg/dL, Acceptable >59 mg/dL, High: Negative risk factor for coronary heart disease <40 mg/dL, Low: Positive risk factor for coronary heart disease LAB LDL <100 mg/dL LDL-Cholesterol High 126 Result Comment: <100 mg/dL, Optimal 100-129 mg/dL, Near optimal/above optimal 130-159 mg/dL, Borderline high 160-189 mg/dL, High >189 mg/dL, Very high Secondary prevention optimal LDL Cholesterol levels are recommended to be < 70 mg/dL LAB NONHDL <130 mg/dL Non HDL High Cholesterol 148 Result Comment: <130 mg/dL, Optimal 130-159 mg/dL, Near optimal/above optimal 160-189 mg/dL, Borderline high 190-219 mg/dL, High >219 mg/dL, Very high Secondary prevention optimal non HDL Cholesterol levels are recommended to be < 100 mg/dL LAB FT hrs Fasting Time 9 LAB VLDL <30 mg/dL VLDL Cholesterol 22 LAB TCHDL <5.10 TC:HDL Ratio 5.00 LAB LDLHDL <2.54 High LDL:HDL Ratio 3.41 Result Comment: Reference: 1. National Cholesterol Education Program ATP III Guideline At-A-Glance Quick Desk Reference: National Heart, Lung, and Blood [place]. National Institutes of Health. 2001: NIH Publication No. 01-3305. 2. An International Atherosclerosis Society position paper: global recommendations for the management of dyslipidemia: executive summary, Atherosclerosis. 2014: 232(2):410-413. Performed By: #### CBC, CMP, LIPB, HBA1C #### [facility] [address] [place], [place] [address] HEMOGLOBIN A1C Collected: 05/07/2018 Status: F Source: [place] 7:46 AM [facility] REPOSITORY TYPE CODE TESTS RESULT OUT OF REFERENCE UNITS RANGE LAB HGBA1C 4.3-5.6 % High Hemoglobin A1c 5.9 LAB HBA0 mg/dL Est. Average Glucose 123 Result Comment: eAG: (Estimated average glucose) is a calculated value from HgbA1c and is leasing representative of the average blood glucose level in the last 2-3 month period. Performed By: #### CBC, CMP, LIPB, HBA1C #### [facility] [address] [place], [place] [address] CNPTOUTREACH Observed: 04/29/2018 Status: COMPLETED Source: [place] 12:00 AM [facility] REPOSITORY Patient Outreach (FAMPST) LITO GONZALEZ ([id number]) 1950 F Date Time Provider Department 04/29/18 ABBY CAMACHO During your visit today, we recorded the following information about you: Allergies As of Date: 04/29/2018 Noted Allergy Reaction LIPITOR (ATORVASTATIN) 06/27/2016 2 - Rash Comments: red itchy rash around neck--resolved after stopping med; hands froze with stiffness that started a week after taking a couple pills--resolving Date Reviewed: 11/06/2017 Reviewed by: Musa Ferrell - Fully Assessed Visit Diagnosis:Medication management [Z79.899] Order(s):ALBUMIN/CREAT RATIO RND UR [SQUACR] Order #: [id number] FUTURE Prescriptions as of 04/29/2018 Sig: X METFORMIN 500 MG TABLET Take 1 tablet by mouth daily * BLOOD SUGAR DIAGNOSTIC STRIPS Test blood sugar(s) 4 times d* BENZONATATE 100 MG CAPSULE Take 2 capsules by mouth thre* Patient not taking: Reported on 05/12/2018 NAPROXEN SODIUM 220 MG TABLET Take 1 tablet by mouth twice * Patient not taking: Reported on 05/12/2018 RANITIDINE 150 MG TABLET Take 1 tablet by mouth once d* ASPIRIN 81 MG TABLET,DELAYED * Take 1 tablet by mouth once d* METOPROLOL SUCCINATE ER 50 MG* Take 1 tablet by mouth once d* LANCETS Test blood sugar(s) 4 times d* * BRANNON-600 WITH VITAMIN D 600 MG* Take one(1) tablet two(2) haleigh* * COMPOUNDED PRESCRIPTION Herbal Laxative Take as direc* * GLUCOSAMINE SULFATE DIPOTASSI* Take one(1) tablet daily. Problem List As Of Date 04/29/2018 Noted Resolved BMI 45.0-49.9, adult (HCC) [Z68.42] More... TACHYCARDIA NOS [R00.0] INVALID FOR* Hypertension goal BP (blood pressure) < 140/90 *INVALID FOR* More... Hyperlipidemia associated with type 2 diabetes *INVALID FOR* Pain in joint, lower leg [M25.569] INVALID FOR*12/15/2010 Nonspecific abnormal results of liver function *INVALID FOR*03/04/2012 Diabetes mellitus type 2, controlled, without c*INVALID FOR* More... GENERAL OSTEOARTHROSIS [M15.9] INVALID FOR* Polycythemia, secondary [D75.1] INVALID FOR* More... Colon cancer screening [Z12.11] INVALID FOR*01/05/2016 Acid indigestion [K30] INVALID FOR* Encounter Status:Closed by DENNYS DAVIS on 05/30/18 SURGERY VISIT REPORT Observed: 02/19/2018 Status: F Source: [place] 7:53 AM [facility] REPOSITORY [facility] [address] [place] [address] OFFICE VISIT Date of Service: 02/18/18 MR#: [id number] Acct: [id number] Name: LITO GONZALEZ Rep #: [id number] : 1950 Provider: Mars Sanchez MD Age/Sex: 67/F Location: [facility] Status: Signed Intake Intake Visit Reasons: Lt Breast Bx 02/10 Chief Complaint: left breast bx Supervisor Fur Dressing Required: No Is patient in pain?: No Allergies No Known Allergies Allergy (Verified 02/18/18 09:41) Medications Aspirin [Aspirin, Baby] 81 mg PO DAILY@0800 #30 tab.chew 09/21/15 [Rx Confirmed 02/18/18] metoprolol succinate ER 50 mg tablet,extended release 24 hr 50 mg PO DAILY #90 tab 08/27/17 [Rx Confirmed 02/18/18] metformin 500 mg tablet 500 mg PO QDAY tab 10/25/17 [History Confirmed 02/18/18] Is last menstrual period known: No Post menopausal: Yes Patient : No PFSH Medical History Valvular heart disease (Chronic) Sepsis (Acute) Diverticulitis (Acute) Encephalopathy (Acute) DKA (diabetic ketoacidoses) (Acute) Arthritis (Acute) Paroxysmal SVT (supraventricular tachycardia) (Acute) Hypertension (Chronic) Aortic valve calcification (Chronic) Paroxysmal atrial fibrillation (Chronic) Diabetes type 2, uncontrolled (Chronic) Morbid obesity (Chronic) Microcalcification of left breast on mammogram (Acute) Surgical History History of total right knee replacement (TKR) (Chronic) History of appendectomy (Chronic) History of total hysterectomy (Chronic) History of total left knee replacement (Chronic) S/P laparoscopic cholecystectomy (Acute) history left breast stereotactic biopsy (Acute 02/10/18) Family History Father COPD (chronic obstructive pulmonary disease) CAD (coronary artery disease) Mother Cancer Breast cancer Social History Smoking Status: Never smoker second hand exposure: No alcohol intake: never substance use type: does not use caffeine: No what type of physical activity do you participate in: none frequency: does not exercise seatbelt use: always HPI HPI HPI: LITO GONZALEZ, is a 67 F who presents to the office today for patient is status post a left stereotactic breast biopsy on 02/10/2018. Pathology came back as focal area of dense fibrosis, foreign body giant cell reaction and old hemorrhage. Fatty breast tissue with focal minimal fibrocystic changes and intraductal hyperplasia without atypia. A minute fragment of hyalinized fibroadenoma was identified. Focal microcalcifications are identified. It was negative for malignancy. She has no complaints and is noticing only minimal bruising Exam Chest Other: Incision is clean and dry and there is no signs of infection minimal bruising is identified Assessment AND Plan Problems 1. Abnormal mammogram of left breast R92.8 Plan At this point there is no further surgical interventions that we need to perform. I think we have biopsied the area appropriately and it is benign. She will need a six-month follow-up mammogram on that left breast. Orders Orders: Coding Level of Care Code Off vis,est,level 2 Diagnoses Abnormal mammogram of left breast R92.8 02/19/18 0753 <Electronically signed by Mars Sanchez MD> Date Mars Sanchez MD Cosigner Signature: Date (if applicable) CC: Abby Camacho MD OPERATIVE REPORT Observed: 02/10/2018 Status: F Source: [place] 12:33 PM [facility] REPOSITORY [facility] Medical Records Department [address] [place] [address] [place] [address] Operative Report 02/10/18 1224 MR#: [id number] Acct: [id number] Name: LITO GONZALEZ Rep #: [id number] : 1950 67 From: Mars Sanchez MD PCP: Abby Camacho MD Status: REG CLI Y Location: [facility] Problem List (1) Abnormal mammogram of left breast Status: Acute Report of Operation Date of Procedure: 02/10/18 Pre-Operative Diagnosis: r92.8 abnormal mammogram left Post-Operative Diagnosis: Same Surgery/Procedure Performed:: [id number] stereotactic breast biopsy left Type of Anesthesia:: Local Description of Procedure: Patient was brought into the stereotactic unit placed in the prone position on the fissure table. The left breast was brought down through the opening. A medial to lateral view was obtained. Previous biopsy clip and biopsy area was identified. 15 views were obtained. I prepped the breast with Betadine. I injected 1% lidocaine plain. A skin hiro was made. Local was injected deep into the breast and the needle was advanced. 2 more stereo views were obtained. The needle was fired 360 circumferential biopsies were obtained. I then backed the needle 10 mm and I took more stereotactic breast biopsies. I then placed a small titanium clip in the biopsy cavity. The breast was x-rayed the clip was in good placement. I sutured the skin closed with a [id number] suture of 4-0 nylon. Sterile dressings were applied. Standard mammograms were obtained. The patient tolerated the procedure well. - Admit VTE Documentation VTE Present on Admission: No VTE Mechan Device Prophylaxis: None VTE Pharm Prophylaxis ordered?: No Reason prophylaxis not ordered:: Treatment Not Indicated 02/10/18 1233 <Electronically signed by Mars Sanchez MD> Date Mars Sanchez MD CC: Mars Sanchez MD; Abby Camacho MD Signed BREAST BIOPSY Observed: 02/10/2018 Status: F Source: [place] (CHOOSE SITE) 12:00 AM [facility] REPOSITORY Patient: LITO GONZALEZ : 1950 (67/F) Acct Num: [id number] Phys: Mars Sanchez MD Unit Num: [id number] Loc: [facility] Specimen: [id number] Received: 02/10/18 - 1433 Spec Type: BREAST BX TISSUES TISSUES: Left breast, NOS COMMENT Please make reference to previous specimen ([id number]) left breast, stereotactic needle core biopsy, with diagnosis of adenosis and intraductal hyperplasia without atypia and hyalinized fibroadenoma with focal calcification. Correlation with clinical, radiologic findings and appropriate follow up are necessary. GROSS DESCRIPTION Received in fixative is one container labeled with the patient's name and designated left breast. The specimen consists of multiple elongated fragments of marquez-yellow fibroadipose tissue mixed with blood clot that in aggregate measure 5 x 3 x 1 cm. The entire specimen is submitted in eight cassettes. / SJ:forrest 02/10/18 TC:5 CPT: 15178 HEADER OPERATION: Left breast stereotactic needle core biopsy PRE-OP DIAGNOSIS: Left UIQ density at prior biopsy site TISSUE SUBMITTED: Left breast ISCHEMIC TIME: 1 minute FIXATION TIME: 8 hours MICROSCOPIC DESCRIPTION Slides are reviewed. MICROSCOPIC DIAGNOSIS Left breast, upper inner quadrant density at prior biopsy site, stereotactic needle core biopsy: Focal area of dense fibrosis, foreign body giant cell reaction and old hemorrhage. Fatty breast tissue with focal minimal fibrocystic changes and intraductal hyperplasia without atypia. A minute fragment of hyalinized fibroadenoma. Focal microcalcification. Negative for malignancy. SJ:forrest 02/11/18 Signed Roberto Peterson 02/11/18 <signature on file> Performed By: #### PBRBX #### [facility] [address] [place] [address] [place], [address] SURGERY VISIT REPORT Observed: 02/08/2018 Status: F Source: [place] 9:56 AM [facility] REPOSITORY [facility] [address] [place], [place] [address] [place] [address] OFFICE VISIT Date of Service: 02/06/18 MR#: [id number] Acct: [id number] Name: LITO GONZALEZ Rep #: [id number] : 1950 Provider: Mars Sanchez MD Age/Sex: 67/F Location: [facility] Status: Signed Intake Vital Signs02/06/18 Height 4 ft 11.5 in 02/06/18 Weight: 220 lb Intake Visit Reasons: F/U U/S AND MAMMO @ [facility] 12/18/2017 Chief Complaint: Follow-up visit. Supervisor Fur Dressing Required: No Is patient in pain?: No Allergies No Known Allergies Allergy (Verified 02/06/18 09:27) Medications Aspirin [Aspirin, Baby] 81 mg PO DAILY@0800 #30 tab.chew 09/21/15 [Rx Confirmed 02/06/18] metoprolol succinate ER 50 mg tablet,extended release 24 hr 50 mg PO DAILY #90 tab 08/27/17 [Rx Confirmed 02/06/18] metformin 500 mg tablet 500 mg PO QDAY tab 10/25/17 [History Confirmed 02/06/18] [facility] Medical History Valvular heart disease (Chronic) Sepsis (Acute) Diverticulitis (Acute) Encephalopathy (Acute) DKA (diabetic ketoacidoses) (Acute) Arthritis (Acute) Paroxysmal SVT (supraventricular tachycardia) (Acute) Hypertension (Chronic) Aortic valve calcification (Chronic) Paroxysmal atrial fibrillation (Chronic) Diabetes type 2, uncontrolled (Chronic) Morbid obesity (Chronic) Surgical History History of total right knee replacement (TKR) (Chronic) History of appendectomy (Chronic) History of total hysterectomy (Chronic) History of total left knee replacement (Chronic) Family History Father COPD (chronic obstructive pulmonary disease) CAD (coronary artery disease) Mother Cancer Breast cancer Social History Smoking Status: Never smoker second hand exposure: No alcohol intake: never substance use type: does not use caffeine: No what type of physical activity do you participate in: none frequency: does not exercise seatbelt use: always HPI HPI HPI: LITO GONZALEZ, is a 67 F who presents to the office today for evaluation of an abnormal mammogram. Patient had her mammograms done at the [facility] on 12/18/2017. This showed an irregular area of the left breast most likely a scar and has a low suspicion for malignancy. Stereotactic biopsy is recommended. They stated that this was the area of a prior stereotactic biopsy. This area had become more prominent since her prior mammograms. On rolled and MLO views this appears to be somewhat elongated and resembles postsurgical scarring. The ultrasound also resembles posterior scarring. Stereotactic biopsy was recommended for confirmation. The patient has not noticed any new changes in her breast exam she has not been having any new palpable lumps and no nipple discharge. ROS General General: No weight change, appetite, fatigue, colon cancer, breast cancer or weakness HEENT HEENT: No difficulty swallowing, eye injury, eye surgery, swollen glands or hoarseness Endo Endocrine: Yes diabetes mellitus; no thyroid disease, thyroid cancer, Hair loss, heat intolerance or cold intolerance Skin Skin: No rash or changing moles Breast Breast: Yes abnormal mammogram and abnormal US; no left breast lump, right breast lump, nipple discharge, breast pain or breast enlargement Musc Musculoskeletal: Yes arthritis; no back problems, rheumatoid arthritis, gout or joint pain Cardio Cardiovascular: No murmur, pacemaker, heart disease, atrial fibrillation, high blood pressure, heart attack, heart stent, palpitations, shortness of breat with exertion or chest pain Psych Psychiatric: No depression, anxiety or hearing voices Resp Respiratory: No shortness of breath, No sleep apnea, No cough, No COPD, No asthma, No emphysema, No wheezing Gastro Gastrointestinal: No abdominal pain, No nausea or vomiting, No diarrhea, No constipation, No blood in stool, No acid reflux, No hemorrhoids, No ulcers, No gallbladder problem, No black,tarry stools Isiah Hematologic: No blood thinners, No blood disorders, No bleeding, No anemia, No blood clots Neuro Neurologic: No system reviewed and no additional complaints, except as docu, No as per HPI, No abnormal walking, No abnormal hearing, No abnormal movements, No abnormal speech, No behavioral changes, No burning sensations, No confusion, No seizure-like activity, No unsteadiness, No dizziness, No localized weakness, No frequent falls, No headache(s), No lack of coordination, No loss of vision, No memory loss, No numbness, No other visual disturbances, No radiating pain, No restless legs, No sensory deficit, No fainting, No tingling, No tremor(s), No weakness, No other Exam HENMT Head: normal to inspection, normocephalic, atraumatic Mouth: moist mucous membranes, oropharynx normal Eyes General: appearance normal, both eyes and all related structures Sclera: sclerae normal Neck Neck: no lymphadenopathy noted, trachea midline Neck mass: No Thyroid: thyroid normal Lymphatic: no lymphadenopathy noted Chest Breast inspection: normal inspection of the breasts Breast Palpation: No nipple discharge Resp Other: Respiratory Exam: Deferred Cardio Heart Sounds: no murmurs Other: Cardiac Exam: Deferred GI Other: GI Exam: Deferred Other: Rectal Exam: Deferred Extrem Other: Extremity Exam: Deferred Assessment AND Plan Problems 1. Abnormal mammogram of left breast R92.8 Plan I have discussed above with the patient. I have recommended stereotactic needle core breast biopsy with vacuum assistance. I have described the procedure to the patient. I have discussed with the patient that sometimes the stereotactic lesion may be artifact and is user dependent and therefore prior to undergoing the procedure. A marker clip will be placed to identify the location. Patient has been counseled to the risks/benefits of the procedure. I have explained the risks of the surgery, including but not limited to: infection, bleeding, injury to any blood vessels/nerves, scar tissue, missing the lesion, further surgery, etc. - the patient understands and agrees to proceed. I have answered all of the patient's questions to her satisfaction and she has no further questions. Coding Level of Care Code Off vis,est,level 3 Diagnoses Abnormal mammogram of left breast R92.8 02/08/18 0956 <Electronically signed by Mars Sanchez MD> Date Mars Sanchez MD Cosigner Signature: Date (if applicable) CC: Abby Camacho MD CNCO Observed: 12/18/2017 Status: COMPLETED Source: [facility] 12:55 PM [facility] REPOSITORY HNO ID: [id number] Author: Mammography Coordinator Service: (none) Author Type: Physician Type: Letter Filed: 12/19/2017 11:32 PM Note Text: December 18, 2017 PID: [id number] Lito Gonzalez [address] [place] [address] Dear Ms. Gonzalez, Your recent breast imaging exam on 12/18/2017 showed an abnormal area. At this time we recommend further evaluation. This does not necessarily mean that there is a serious problem in your breast, but it should not be ignored. Please contact your physician as soon as possible to discuss the results of this exam and decide what the next steps in your medical care should be. If you have already been notified of these findings, please disregard this letter. Thank you for allowing us to help in meeting your health care needs. Sincerely, Dr. Portillo Interpreting Radiologist [facility] (Abnormal) CNCO Observed: 12/18/2017 Status: COMPLETED Source: [facility] 12:55 PM [facility] REPOSITORY HNO ID: [id number] Author: Mammography Coordinator Service: (none) Author Type: Physician Type: Letter Filed: 12/19/2017 11:32 PM Note Text: December 18, 2017 PID: [id number] Lito Gonzalez [address] [place] [address] Dear Ms. Gonzalez, Your recent breast imaging exam on 12/18/2017 showed an abnormal area. At this time we recommend further evaluation. This does not necessarily mean that there is a serious problem in your breast, but it should not be ignored. Please contact your physician as soon as possible to discuss the results of this exam and decide what the next steps in your medical care should be. If you have already been notified of these findings, please disregard this letter. Thank you for allowing us to help in meeting your health care needs. Sincerely, Dr. Portillo Interpreting Radiologist [facility] (Abnormal) [facility] BREAST LTD Observed: 12/18/2017 Status: F Source: [facility] 11:25 AM [facility] REPOSITORY * * *Final Report* * * DATE OF EXAM: Dec 18 2017 11:25AM [facility] 0593 - [facility] US BREAST LTD LT / PROCEDURE REASON: call back left breast / abnormal mammogram * * * * Physician Interpretation * * * * #[id number] - [facility] DIAGNOSTIC LT UNILATERAL LEFT DIGITAL DIAGNOSTIC MAMMOGRAM WITH CAD: 12/18/2017 HISTORY: Call Back Left Breast / Abnormal Mammogram. RESULT: TECHNIQUE: The study was acquired using full field digital technology and interpreted from soft copy. Current study was also evaluated with a Computer Aided Detection (CAD). Comparison is made to exams dated: 11/19/2017 mammogram, 08/06/2016 mammogram - [facility], 08/09/2015 mammogram - [facility], and 07/28/2015 mammogram - [facility]. There are scattered fibroglandular elements in the left breast. There is a 3 cm equal density asymmetry in the left breast at 12 o'clock middle depth. This correlates with the biopsy. No other significant masses or calcifications are seen in the breast. SUSPICIOUS OF MALIGNANCY The 3 cm equal density asymmetry in the left breast most likely is fat necrosis or a previous biopsy and is at a low suspicion for malignancy. A stereotactic biopsy is recommended. #[id number] - [facility] BREAST [facility] LT ULTRASOUND OF LEFT BREAST: 12/18/2017 RESULT: Comparison is made to exams dated: 11/19/2017 mammogram, 08/06/2016 mammogram - [facility], 08/09/2015 mammogram - [facility], and 07/28/2015 mammogram - [facility]. Color flow and real-time ultrasound of the left breast were performed. There is an irregular area with an indistinct margin in the left breast at 11 o'clock middle depth. This irregular area is hypoechoic. There is an associated biopsy clip. IMPRESSION: SUSPICIOUS OF MALIGNANCY - FOLLOW-UP RECOMMENDED The irregular area in the left breast most likely is a scar and is at a low suspicion for malignancy. A stereotactic biopsy is recommended. This is at the area of prior stereotactic biopsy. This has become more prominent since the prior mammogram. On rolled and ML views this appears to somewhat elongate and resembles post surgical scarring. The ultrasound also resembles post surgical scarring. Stereotactic biopsy is recommended for confirmation. Franklin de/casimiro:12/18/2017 12:55:50 Manager Party: Camille SABILLON(Rosa)(Ruiz), [facility] letter sent: Abnormal OVERALL STUDY BIRADS: 4a Suspicious abnormality - low suspicion for malignancy Animal Cruelty Investigation Supervisor: Casimiro Transcribe Date/Time: Dec 18 2017 10:35A Dictated by : FRANKLIN PORTILLO MD This examination was interpreted and the report reviewed and electronically signed by: FRANKLIN PORTILLO MD on Dec 18 2017 12:55PM EST [id number] Observed: 12/18/2017 Status: COMPLETED Source: [facility] 11:15 AM [facility] REPOSITORY HNO ID: [id number] Author: Carey Ruvalcaba Rdms Service: (none) Author Type: (none) Type: Progress Notes Filed: 12/18/2017 11:45 AM Note Text: Radiology Service Progress Note PATIENT NAME: Lito Gonzalez DATE OF SERVICE: December 18, 2017 TIME: 11:15 AM PATIENT IDENTITY VERIFICATION COMPLETED USING TWO (2) METHODS: Patient confirmed name verbally and Date of . PATIENT GENDER DATA: Female. status: : No status: NO. PATIENT RELEVANT IMPLANT DATA REVIEWED: Not Applicable RADIOLOGY DEPARTMENT: Ultrasound PERIPHERAL IV DATA: Not applicable SIGNED BY: Carey Ruvalcaba Rdms December 18, 2017 11:15 AM [facility] DIAGNOSTIC LT Observed: 12/18/2017 Status: F Source: [facility] 10:54 AM [facility] REPOSITORY * * *Final Report* * * DATE OF EXAM: Dec 18 2017 10:54AM [facility] 0621 - [facility] DIAGNOSTIC LT / PROCEDURE REASON: call back left breast / abnormal mammogram * * * * Physician Interpretation * * * * RESULT: #[id number] - [facility] DIAGNOSTIC LT UNILATERAL LEFT DIGITAL DIAGNOSTIC MAMMOGRAM WITH CAD: 12/18/2017 HISTORY: Call Back Left Breast / Abnormal Mammogram. RESULT: TECHNIQUE: The study was acquired using full field digital technology and interpreted from soft copy. Current study was also evaluated with a Computer Aided Detection (CAD). Comparison is made to exams dated: 11/19/2017 mammogram, 08/06/2016 mammogram - [facility], 08/09/2015 mammogram - [facility], and 07/28/2015 mammogram - [facility]. There are scattered fibroglandular elements in the left breast. There is a 3 cm equal density asymmetry in the left breast at 12 o'clock middle depth. This correlates with the biopsy. No other significant masses or calcifications are seen in the breast. SUSPICIOUS OF MALIGNANCY The 3 cm equal density asymmetry in the left breast most likely is fat necrosis or a previous biopsy and is at a low suspicion for malignancy. A stereotactic biopsy is recommended. #[id number] - [facility] ULTRASOUND OF LEFT BREAST: 12/18/2017 RESULT: Comparison is made to exams dated: 11/19/2017 mammogram, 08/06/2016 mammogram - [facility], 08/09/2015 mammogram - [facility], and 07/28/2015 mammogram - [facility]. Color flow and real-time ultrasound of the left breast were performed. There is an irregular area with an indistinct margin in the left breast at 11 o'clock middle depth. This irregular area is hypoechoic. There is an associated biopsy clip. IMPRESSION: SUSPICIOUS OF MALIGNANCY - FOLLOW-UP RECOMMENDED The irregular area in the left breast most likely is a scar and is at a low suspicion for malignancy. A stereotactic biopsy is recommended. This is at the area of prior stereotactic biopsy. This has become more prominent since the prior mammogram. On rolled and ML views this appears to somewhat elongate and resembles post surgical scarring. The ultrasound also resembles post surgical scarring. Stereotactic biopsy is recommended for confirmation. Franklin de/casimiro:12/18/2017 12:55:50 Manager Party: Camille HOLDER)(Ruiz), [facility] letter sent: Abnormal OVERALL STUDY BIRADS: 4a Suspicious abnormality - low suspicion for malignancy Animal Cruelty Investigation Supervisor: Casimiro Transcribe Date/Time: Dec 18 2017 10:35A Dictated by: FRANKLIN PORTILLO MD This examination was interpreted and the report reviewed and electronically signed by: FRANKLIN PORTILLO MD on Dec 18 2017 12:55PM EST [id number] Observed: 12/06/2017 Status: COMPLETED Source: [facility] 12:00 AM [facility] REPOSITORY Telephone (INTMWS) LITO GONZALEZ ([id number]) 1950 F Date Time Provider Department 12/06/17 ABBY CAMACHO INTMWS During your visit today, we recorded the following information about you: Inna Hitesh Psr 12/06/2017 1:54 PM Signed Lito Gonzalez is calling Abby Camacho MD today. She spoke to her mail order pharmacy - they are still waiting for a script for her test strips. The office issued a script on 11/26 - and confirmation was received. Can these be recalled in? Patient is getting low on her test strips blood sugar diagnostic (BLOOD GLUCOSE TEST) test strip 300 Strip 11 11/26/2017 Sig: Test blood sugar(s) 4 times daily. ?Dx: Type 2 DM - Uncontrolled E11.65 ?Insulin: Yes; Accucheck [facility] Medical: [phone] Class: Normal Order: [id number] E-Prescribing Status: Receipt confirmed by pharmacy (11/26/2017 ?5:31 PM EDT) Inna Proctor Psr 12/06/2017 2:08 PM Signed Patient calling again. She spoke to her mail order pharmacy and re confirmed they did not receive her test strips- They are resending a request today. The mail order pharmacy gave her a number the office can call- [phone] Abby Camacho MD 12/06/2017 8:49 PM Signed The following approved medication requests have been transmitted electronically. Signed Prescriptions Disp Refills blood sugar diagnostic (BLOOD GLUCOSE TEST) test strip 300 Strip 11 Sig: Test blood sugar(s) 4 times daily. Dx: Type 2 DM - Uncontrolled E11.65 Insulin: Yes; Accucheck [facility] Medical: [phone] JAYLEN: No Authorizing Provider: ABBY CAMACHO MD Does number need called also? Zena Otoole RN 12/07/2017 10:55 AM Signed [facility] medical office closed on Saturday, please call and check on 12/09/17. Thank you, Zena Morocho LPN 12/10/2017 4:06 PM Signed called [facility] medical and had them refax the CMN for Dr Camacho signature. In provider pod for signature. Musa Ferrell 12/10/2017 6:05 PM Signed Signed order faxed back to [facility]. RIKI Weinberg, [facility] 12/11/2017 10:08 AM Signed Patient called today. She states [facility] Medical does not have this fax. She states she would like office to refax. Please advise. Allergies As of Date: 12/06/2017 Noted Allergy Reaction LIPITOR (ATORVASTATIN) 06/27/2016 2 - Rash Comments: red itchy rash around neck--resolved after stopping med; hands froze with stiffness that started a week after taking a couple pills--resolving Date Reviewed: 11/06/2017 Reviewed by: Musa Ferrell - Fully Assessed Reason for Visit: Medication Question [8228] Order(s):blood sugar diagnostic (BLOOD GLUCOSE TEST) test stripTest blood sugar(s) 4 times daily. Dx: Type 2 DM - Uncontrolled E11.65 Insulin: Yes; Accucheck [facility] Medical: [phone]: 300 StripRfl: 11 Prescriptions as of 12/06/2017 Sig: BLOOD SUGAR DIAGNOSTIC STRIPS Test blood sugar(s) 4 times d* BENZONATATE 100 MG CAPSULE Take 2 capsules by mouth thre* METFORMIN 500 MG TABLET Take 1 tablet by mouth daily * NAPROXEN SODIUM 220 MG TABLET Take 1 tablet by mouth twice * RANITIDINE 150 MG TABLET Take 1 tablet by mouth once d* ASPIRIN 81 MG TABLET,DELAYED * Take 1 tablet by mouth once d* METOPROLOL SUCCINATE ER 50 MG* Take 1 tablet by mouth once d* LANCETS Test blood sugar(s) 4 times d* * BRANNON-600 WITH VITAMIN D 600 MG* Take one(1) tablet two(2) haleigh* * COMPOUNDED PRESCRIPTION Herbal Laxative Take as direc* * GLUCOSAMINE SULFATE DIPOTASSI* Take one(1) tablet daily. Problem List As Of Date 12/06/2017 Noted Resolved BMI 45.0-49.9, adult (HCC) [Z68.42] More... TACHYCARDIA NOS [R00.0] INVALID FOR* Hypertension goal BP (blood pressure) < 140/90 *INVALID FOR* More... Hyperlipidemia associated with type 2 diabetes *INVALID FOR* Pain in joint, lower leg [M25.569] INVALID FOR*12/15/2010 Nonspecific abnormal results of liver function *INVALID FOR*03/04/2012 Diabetes mellitus type 2, controlled, without c*INVALID FOR* More... GENERAL OSTEOARTHROSIS [M15.9] INVALID FOR* Polycythemia, secondary [D75.1] INVALID FOR* More... Colon cancer screening [Z12.11] INVALID FOR*01/05/2016 Acid indigestion [K30] INVALID FOR* Prescriptions ordered this encounter Disp Refills Start End BLOOD SUGAR DIAGNOSTIC STRIPS 300 * 11 12/06/2017 Sig: Test blood sugar(s) 4 times daily. Dx: Type 2 DM - Uncontrolled E11.65 Insulin: Yes; Accucheck [facility] Medical: [phone] Medications Discontinued During This Encounter blood sugar diagnostic (BLOOD GLUCOS* 300 * 11 11/26/2017 12/06/2017 Sig: Test blood sugar(s) 4 times daily. Dx: Type 2 DM - Uncontrolled E11.65 Insulin: Yes; Accucheck [facility] Medical: [phone] Disc: Reason for discontinue is not on file. Encounter Status:Closed by MUSA FERERLL on 12/10/17 CARDIOLOGY VISIT Observed: 11/19/2017 Status: F Source: [facility] RE[facility] 11:52 AM [facility] REPOSITORY [facility] [place] [address] OFFICE VISIT Date of Service: 11/15/17 MR#: [id number] Acct: [id number] Name: LITO GONZALEZ Rep #: [id number] : 1950 Provider: Ac Hubbard MD Age/Sex: 67/F Location: [facility] Status: Signed [facility] Chief Complaint: Follow-up visit. Details: LITO GONZALEZ, is a 67 F who presents to the office today for a follow-up visit. She is a lady with a history of hypertension supraventricular tachyarrhythmia atrial fibrillation aortic sclerosis who returns for routine follow-up visit she denies any chest pain or shortness breath or paroxysmal nocturnal dyspnea pedal edema she has had no neck arm or jaw discomfort suggest angina no dizziness or diaphoresis no near syncope or syncope. She tells me that she was recently seen in your office and was noted to be doing well. Her physical exam today demonstrates clear lung martinez regular rate and rhythm no pedal edema soft 1/6 to 2/6 systolic murmur noted left sternal border. Intake Vital Signs11/15/17 Height 5 ft 11/15/17 Weight: 236 lb 11/15/17 Body Mass Index (BMI) 46.0 11/15/17 Blood Pressure 120/72 11/15/17 Blood Pressure Location Lt brachial Intake Visit Reasons: 1 YR FU (we moved from 4-3) Supervisor Fur Dressing Required: No Accompanied by: None Is patient in pain?: No Allergies No Known Allergies Allergy (Verified 11/15/17 11:26) Medications Aspirin [Aspirin, Baby] 81 mg PO DAILY@0800 #30 tab.chew 09/21/15 [Rx Confirmed 11/14/17] metoprolol succinate ER 50 mg tablet,extended release 24 hr 50 mg PO DAILY #90 tab 08/27/17 [Rx Confirmed 11/14/17] metformin 500 mg tablet 500 mg PO QDAY tab 10/25/17 [History Confirmed 11/14/17] Ejection fraction %: 65 to 70 PFS Medical History Valvular heart disease (Chronic) Paroxysmal SVT (supraventricular tachycardia) (Acute) Hypertension (Chronic) Aortic valve calcification (Chronic) Paroxysmal atrial fibrillation (Chronic) Diabetes type 2, uncontrolled (Chronic) Morbid obesity (Chronic) Arthritis (Acute) DKA (diabetic ketoacidoses) (Acute) Diverticulitis (Acute) Encephalopathy (Acute) Sepsis (Acute) Surgical History History of appendectomy (Chronic) History of total hysterectomy (Chronic) History of total left knee replacement (Chronic) History of total right knee replacement (TKR) (Chronic) Family History Father COPD (chronic obstructive pulmonary disease) CAD (coronary artery disease) Mother Cancer Social History Smoking Status: Never smoker alcohol intake: never substance use type: does not use ROS Const Const: Negative for body ache, fever(s), chills, night sweats, daytime sleepiness, difficulty sleeping, weight gain, weight loss, increased appetite, poor appetite, anorexia, other, frequent falls, headache(s), weakness, fatigue or excessive sweating Eyes Eyes: Negative for blind spots, loss of peripheral vision, transient loss of vision, change in vision, floaters, tunnel vision, other, blurry vision or double vision ENT ENT: Positive for balance problems; negative for hearing loss, tinnitus, Nosebleed/epistaxis, post nasal drip, bleeding gums, hoarseness, neck pain, dry mouth, other, dizziness, headache(s), tongue swelling or lip swelling Cardio Chest Pain: No Palpitations: No Edema: None Muscle aches with walking: None Resp Respiratory: Negative for SOB with activity, SOB at rest, SOB orthopnea\SOB lying down, Cough, Coughing up blood/hemoptysis, chest congestion, pain on inspiration, snoring, stridor, wheezing, crackles, paroxysmal nocturnal dyspnea or other GI GI: Negative nausea, vomiting, heartburn, constipation, belching, bloating, cramping, vomiting blood/hematemesis, bright, red blood in stools, black,tarry stools, loose stools, Difficulty Swallowing or other : Negative for hematuria, frequent nighttime urination/ nocturia, erectile dysfunction or abnormal vaginal bleeding Musc Musc: Positive for balance problems; negative for muscle aches/ myalgia, muscle weakness or joint pain Skin Skin: Negative redness, non-healing lesions, unusual bruising, skin ulcer, wounds, jaundice, other or rash Neuro Neuro: Negative for dizziness, lightheadedness, near syncope, syncope, orthostatic symptoms, frequent falls, headache(s), weakness, confusion, memory loss, restless legs, blurry vision, double vision, vertigo, seizures, lack of coordination or other Isiah Hematologic/Lymphatic: Negative for easy bleeding, easy bruising, enlarged lymph nodes or other Endo Endo: Negative for fatigue, cold intolerance, heat intolerance, excessive sweating, flushing, increased thirst/drinking, increased hunger, hair loss, hair growth or other Psych Psych: Negative for anxiety, depression, thoughts of harming anyone, thoughts of harming yourself, visual hallucinations, panic attacks or audible hallucinations Allergy Allergy/Immunology: Negative for throat swelling, Negative for tongue swelling, Negative for hives, Negative for rash, Negative for lip swelling Cardiology Exam Const Appearance: cooperative, healthy appearing, well developed, well groomed and no acute distress Nutritional Appearance: well nourished and average body habitus Orientation: alert, awake and oriented x3 Head Head: normal to inspection, normocephalic and atraumatic Ears: hearing grossly normal bilaterally and external ears normal Nose: external nose normal, nasal mucous membranes and turbinates normal, nares normal, septum normal, no nasal discharge Face and Sinus: face symmetric Mouth: oral mucosae normal, tongue normal, oropharynx normal and moist mucous membranes Teeth and gingiva: dentition normal Throat: posterior oropharynx normal, tonsils normal and uvula midline Eyes General: appearance normal, both eyes and all related structures Eyelids: eyelids normal Conjunctivae: conjunctivae normal Pupils: PERRL, normal by confrontation and accommodation normal EOM: EOM intact bilaterally Neck Neck: normal visual inspection, trachea midline and no JVD JVD: +5 Carotids: normal carotid upstroke and bounding pulses Chest Chest inspection: normal inspection of the chest, symmetric chest movement and normal respiratory effort Auscultation: Bilateral: Clear to Auscultation Cardio Palpation: normal PMI Rate: regular rate Rhythm: regular rhythm Heart sounds: S1 normal and S2 normal Murmur: Grade 2/6 GI GI: normal to inspection, soft, no hepatosplenomegaly and bowel sounds present Neuro General: alert, awake, oriented x3, no focal sensory deficit, gait normal and moves all extremities Skin Skin: no rashes or lesions noted Extremities Pulses: Normal: Right Femoral Pulse, Left Femoral Pulse, Right Dorsalis Pedis Pulse, Left Dorsalis Pedis Pulse, Right Posterior Tibial Pulse, Left Posterior Tibial Pulse, Right Radial Pulse, Left Radial Pulse Lower Extremity Edema: None: Bilateral Musculoskel Musculoskeletal: No joint tenderness Psych Psychological: normal affect Assessment AND Plan 1. Hypertension I10 Plan Her blood pressure appears to be under excellent control on the current medical therapy and I would not recommend we make any changes. 2. Aortic valve calcification I35.9 Per echo 09/19/15, mild Plan She does have mild aortic sclerosis but with a preserved ejection fraction of 65% and no wall motion abnormalities I would recommend serial follow-up with physical exams as well as echocardiograms as deemed necessary. 3. Paroxysmal atrial fibrillation I48.0 Plan She does not appear to have had any recurrences of the above as well. My recommendation is to continue to monitor her carefully. Thank you for allowing me to participate in the care of your patient. 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) Coding Level of Care Code Off vis,est,level 3 Diagnoses Hypertension I10 Aortic valve calcification I35.9 Paroxysmal atrial fibrillation I48.0 Coding Level of Care Code Off vis,est,level 3 Diagnoses Hypertension I10 Aortic valve calcification I35.9 Paroxysmal atrial fibrillation I48.0 11/19/17 1152 <Electronically signed by Ac Hubbard MD> Date Ac Hubbard MD Cosigner Signature: Date (if applicable) CC: Abby Camacho MD PROGRESS Observed: 11/19/2017 Status: COMPLETED Source: [place] 11:02 AM [facility] REPOSITORY HNO ID: [id number] Author: Camille Sabillon Service: (none) Author Type: (none) Type: Progress Notes Filed: 11/19/2017 11:03 AM Note Text: Radiology Service Progress Note PATIENT NAME: Lito Gonzalez DATE OF SERVICE: November 19, 2017 TIME: 11:02 AM PATIENT IDENTITY VERIFICATION COMPLETED USING TWO (2) METHODS: Patient confirmed name verbally and Date of . PATIENT GENDER DATA: Female. status: : No status: NO. PATIENT RELEVANT IMPLANT DATA REVIEWED: Not Applicable RADIOLOGY DEPARTMENT: Women's Health screening PERIPHERAL IV DATA: Not applicable SIGNED BY: Camille Sabillon November 19, 2017 11:02 AM CNCO Observed: 11/19/2017 Status: COMPLETED Source: [place] 10:38 AM [facility] REPOSITORY HNO ID: [id number] Author: Mammography Coordinator Service: (none) Author Type: Physician Type: Letter Filed: 11/20/2017 11:31 PM Note Text: November 19, 2017 PID: [id number] Lito Gonzalez [address] [place] [address] Dear Ms. Gonzalez, Your recent breast imaging exam on 11/19/2017 showed a possible finding that requires additional imaging studies for a complete evaluation. Most such findings are probably benign (not cancer). Please call [phone] to schedule an appointment for these tests if you have not already done so. Your breast images and report will be kept on file here as part of your permanent medical record and are available for your continuing care. Thank you for allowing us to help in meeting your health care needs. Sincerely, Dr. Byers Interpreting Radiologist [facility] (Additional imaging) [facility] SCREENING Observed: 11/19/2017 Status: F Source: [place] 10:31 AM [facility] REPOSITORY * * *Final Report* * * DATE OF EXAM: Nov 19 2017 10:31AM WO [id number] - [facility] SCREENING / PROCEDURE REASON: Encounter for screening mammogram for malignant neoplasm of breast * * * * Physician Interpretation * * * * RESULT: #[id number] - [facility] SCREENING BILATERAL DIGITAL SCREENING MAMMOGRAM WITH CAD: 11/19/2017 HISTORY: Encounter For Screening Mammogram For Malignant Neoplasm Of Breast /Screening Mammogram - patient reports NO breast symptoms /Priors available for comparison. RESULT: TECHNIQUE: The study was acquired using full field digital technology and interpreted from soft copy. Current study was also evaluated with a Computer Aided Detection (CAD). Comparison is made to exams dated: 08/06/2016 mammogram - [facility], 08/09/2015 mammogram - [facility], 07/28/2015 mammogram, and 07/27/2014 mammogram - [facility]. There are scattered fibroglandular elements in both breasts. There is a biopsy clip in the left breast. There is a focal asymmetry in the left breast central to the nipple middle depth. No other significant masses, calcifications, or other findings are seen in either breast. IMPRESSION: INCOMPLETE: NEEDS ADDITIONAL IMAGING EVALUATION The focal asymmetry in the left breast is indeterminate. Additional views are recommended. Lorene cox/casimiro:11/19/2017 10:38:08 Manager Party: Camille SABILLON(Rosa)(Ruiz), [facility] letter sent: Additional Imaging Needed Mammogram BI-RADS: 0 Incomplete: needs additional imaging evaluation Animal Cruelty Investigation Supervisor: Casimiro Transcribe Date/Time: Nov 19 2017 10:11A Dictated by: LORENE BYERS MD This examination was interpreted and the report reviewed and electronically signed by: LORENE BYERS MD on Nov 19 2017 10:38AM EST [id number] PROGRESS Observed: 11/06/2017 Status: COMPLETED Source: [place] 11:59 AM [facility] HNO ID: [id number] Author: Abby Camacho Service: (none) Author Type: Physician Type: Progress Notes Filed: 11/14/2017 11:17 PM Note Text: Patient presents with: Radiology Mammogram: at [facility] SUBJECTIVE: Lito Gonzalez is a 67 year old year old lady here today for 6 month follow up appointment for review of medical conditions. Noted that someone had cough that resolved with chocolate covered coconut. Tried a piece after supper but sugar up to 166 after that. No better with cough. Treated for sinobronchitis through --better now. Cough resolved. had illness too. Doxy and tessalon perles given. Had tried Mucinex and Vicks Nyquil--helped her sleep at night. Was coughing for a bout a month. Sugars AM and 2 hours after supper. AMs run 100 to110 range and PM 110 to 130's. Knows pasta shoots up sugar. Noted has been to senior analyst developer. Treadmill 15 minutes started back daily--can go to 20 minutes once used to it. Got off this winter. PAST MEDICAL HISTORY Diagnosis Date - ABNORMAL LIVER FUNCTION STUDY 10/20/2007 - Arrhythmia - Diabetes (HCC) - GENERAL OSTEOARTHROSIS 05/10/2008 - HYPERGLYCEMIA 10/20/2007 - HYPERLIPIDEMIA NEC/NOS 10/12/2005 - HYPERTENSION NOS 10/12/2005 - Impaired fasting glucose 10/20/2007 - Intramural leiomyoma of uterus 1995 - Obesity, unspecified - Palpitations 2003 hospitalized September 2003 for evaluation - Polycythemia, secondary 03/28/2011 - Pure hypercholesterolemia - TACHYCARDIA NOS 04/03/2005 Current Outpatient Prescriptions: benzonatate (TESSALON PERLE) 100 mg capsule Take 2 capsules by mouth three times daily as needed. metFORMIN (GLUCOPHAGE) 500 mg tablet Take 1 tablet by mouth daily with breakfast. naproxen sodium (ALEVE) 220 mg tablet Take 1 tablet by mouth twice daily with meals. TAKE WITH FOOD ranitidine (ZANTAC) 150 mg tablet Take 1 tablet by mouth once daily as needed (Attempting to wean prilosec). blood sugar diagnostic (BLOOD GLUCOSE TEST) test strip Test blood sugar(s) 4 times daily. Dx: Type 2 DM - Uncontrolled E11.65 Insulin: Yes; Accucheck [facility] Medical: [phone] aspirin, enteric coated (ASPIRIN, ENTERIC COATED) 81 mg EC tablet Take 1 tablet by mouth once daily. metoprolol succinate ER (TOPROL XL) 50 mg 24 hr tablet Take 1 tablet by mouth once daily. Lancets lancets Test blood sugar(s) 4 times daily. Dx: Type 2 DM - Uncontrolled E11.65 Insulin: Yes BRANNON-600 WITH VITAMIN D 600 MG-200 UNIT TAB Take one(1) tablet two(2) times daily. COMPOUNDED PRESCRIPTION Herbal Laxative Take as directed. GLUCOSAMINE 1,000 MG ORAL TAB Take one(1) tablet daily. No current facility-administered medications for this visit. OBJECTIVE: BP 120/70 (BP Site: Left Arm, BP Position: Sitting, BP Cuff Size: Large Adult) Pulse 88 Resp 12 Wt 105.7 kg (233 lb) BMI 47.06 kg/m2 Patient is alert, oriented times 3, no apparent distress, affect is bright, reactive. Last 5 Encounter BP Readings: Date: BP: 11/06/2017 120/70 10/23/2017 122/70 05/08/2017 110/80 12/31/2016 128/78 09/26/2016 120/64 Last 5 Encounter Wt Readings: Date: Wt: 11/06/2017 105.7 kg (233 lb) 10/23/2017 106.1 kg (234 lb) 05/08/2017 104.3 kg (230 lb) 12/31/2016 100.7 kg (222 lb) 09/26/2016 101.2 kg (223 lb) Heart: Regular rate, rhythm, no murmurs, gallops, rubs. Lungs: Clear to auscultation, bilaterally, breathing non labored. Ext: No cyanosis, clubbing, or edema. Component Latest Ref Rng AND Units 09/15/2016 12/26/2016 05/01/2017 11/01/2017 Glucose 74 - 99 mg/dL 113 (H) 103 (H) 114 (H) BUN 7 - 21 mg/dL 21 25 (H) 23 (H) Creatinine 0.58 - 0.96 mg/dL 0.88 0.91 0.90 Sodium 136 - 144 mmol/L 142 143 142 Potassium 3.7 - 5.1 mmol/L 4.4 4.4 4.5 Chloride 97 - 105 mmol/L 102 102 104 CO2 22 - 30 mmol/L 26 28 28 Anion Gap 9 - 18 mmol/L 14 13 10 Calcium 8.5 - 10.2 mg/dL 9.8 9.8 9.9 eGFR- >60 >60 >60 eGFR-All Other Races . >60 >60 >60 Triglyceride <150 mg/dL 90 96 Cholesterol, Total <200 mg/dL 175 180 HDL Cholesterol >39 mg/dL 37 (L) 38 (L) VLDL Cholesterol <30 mg/dL 18 19 LDL Cholesterol <100 mg/dL 120 123 (H) Fasting Time hrs 12 9 TC:HDL Ratio <5.10 4.73 4.74 LDL:HDL Ratio <2.54 3.24 3.24 (H) Non HDL Cholesterol <130 mg/dL 138 142 (H) Creatinine, Ur Random (UCRR) 20 - 300 mg/dL 28.5 Albumin, Urine Random 0.0 - 23.0 mg/L <12.0 Albumin/Creat Ratio 0 - 30 mg/g Not calculated Hemoglobin A1C 4.3 - 5.6 % 5.8 (H) 6.3 (H) 6.2 (H) 6.0 (H) Estimated Average Glucose mg/dL 120 134 131 126 TSH 0.400 - 5.500 uU/mL 1.880 ASSESSMENT AND PLAN: Encounter Diagnosis ICD-10-CM 1. Controlled type 2 diabetes mellitus without complication, without long-term current use of insulin (HCC) E11.9 COMP METABOLIC PANEL CBC HGB A1C 2. Hypertension goal BP (blood pressure) < 140/90 I10 COMP METABOLIC PANEL CBC 3. BMI 45.0-49.9, adult (HCC) Z68.42 4. Screening for breast cancer Z12.31 DAVID SCREENING DAVID SCREENING W ANTONIO LIPID PANEL BASIC 5. Hyperlipidemia associated with type 2 diabetes mellitus (HCC) E11.69 E78.5 Above issues addressed with patient. Patient involved in shared decision making for management of her medical issues. History and medications reviewed. Epic updated as needed Refills taken care of and meds adjusted as indicated after reviewed history, exam and labs. Health Maintenance reviewed. Updated record and/or ordered tests as recorded. Encouraged on efforts at healthy diet and regular exercise and adequate sleep. Needs to keep working on diet and exercise with lifestyle changes for effective weight loss as well as DM control and improve lipids and continue BP control. Noted had gained weight since last year bu may have plateaued. The majority of the visit was spent counseling and/or coordinating care for the patient. Nill-sr-ddrm time was at least 25 minutes. Abby Camacho MD CNOV Observed: 11/06/2017 Status: COMPLETED Source: [place] 11:00 AM [facility] REPOSITORY Office Visit (INTMWS) LITO GONZALEZ ([id number]) 1950 F Date Time Provider Department 11/06/17 11:00 AM ABBY CAMACHO INTMWS During your visit today, we recorded the following information about you: Pulse Respiration Blood pressure Weight 88/minute 12/minute 120/70 105.7 kg Abby Camacho MD 11/14/2017 11:17 PM Signed Patient presents with: Radiology Mammogram: at [facility] SUBJECTIVE: Lito Gonzalez is a 67 year old year old lady here today for 6 month follow up appointment for review of medical conditions. Noted that someone had cough that resolved with chocolate covered coconut. Tried a piece after supper but sugar up to 166 after that. No better with cough. Treated for sinobronchitis through --better now. Cough resolved. had illness too. Doxy and tessalon perles given. Had tried Mucinex and Vicks Nyquil--helped her sleep at night. Was coughing for a bout a month. Sugars AM and 2 hours after supper. AMs run 100 to110 range and PM 110 to 130's. Knows pasta shoots up sugar. Noted has been to senior analyst developer. Treadmill 15 minutes started back daily--can go to 20 minutes once used to it. Got off this winter. PAST MEDICAL HISTORY Diagnosis Date - ABNORMAL LIVER FUNCTION STUDY 10/20/2007 - Arrhythmia - Diabetes (HCC) - GENERAL OSTEOARTHROSIS 05/10/2008 - HYPERGLYCEMIA 10/20/2007 - HYPERLIPIDEMIA NEC/NOS 10/12/2005 - HYPERTENSION NOS 10/12/2005 - Impaired fasting glucose 10/20/2007 - Intramural leiomyoma of uterus 1995 - Obesity, unspecified - Palpitations 2003 hospitalized September 2003 for evaluation - Polycythemia, secondary 03/28/2011 - Pure hypercholesterolemia - TACHYCARDIA NOS 04/03/2005 Current Outpatient Prescriptions: benzonatate (TESSALON PERLE) 100 mg capsule Take 2 capsules by mouth three times daily as needed. metFORMIN (GLUCOPHAGE) 500 mg tablet Take 1 tablet by mouth daily with breakfast. naproxen sodium (ALEVE) 220 mg tablet Take 1 tablet by mouth twice daily with meals. TAKE WITH FOOD ranitidine (ZANTAC) 150 mg tablet Take 1 tablet by mouth once daily as needed (Attempting to wean prilosec). blood sugar diagnostic (BLOOD GLUCOSE TEST) test strip Test blood sugar(s) 4 times daily. Dx: Type 2 DM - Uncontrolled E11.65 Insulin: Yes; Accucheck [facility] Medical: [phone] aspirin, enteric coated (ASPIRIN, ENTERIC COATED) 81 mg EC tablet Take 1 tablet by mouth once daily. metoprolol succinate ER (TOPROL XL) 50 mg 24 hr tablet Take 1 tablet by mouth once daily. Lancets lancets Test blood sugar(s) 4 times daily. Dx: Type 2 DM - Uncontrolled E11.65 Insulin: Yes BRANNON-600 WITH VITAMIN D 600 MG-200 UNIT TAB Take one(1) tablet two(2) times daily. COMPOUNDED PRESCRIPTION Herbal Laxative Take as directed. GLUCOSAMINE 1,000 MG ORAL TAB Take one(1) tablet daily. No current facility-administered medications for this visit. OBJECTIVE: BP 120/70 (BP Site: Left Arm, BP Position: Sitting, BP Cuff Size: Large Adult) Pulse 88 Resp 12 Wt 105.7 kg (233 lb) BMI 47.06 kg/m2 Patient is alert, oriented times 3, no apparent distress, affect is bright, reactive. Last 5 Encounter BP Readings: Date: BP: 11/06/2017 120/70 10/23/2017 122/70 05/08/2017 110/80 12/31/2016 128/78 09/26/2016 120/64 Last 5 Encounter Wt Readings: Date: Wt: 11/06/2017 105.7 kg (233 lb) 10/23/2017 106.1 kg (234 lb) 05/08/2017 104.3 kg (230 lb) 12/31/2016 100.7 kg (222 lb) 09/26/2016 101.2 kg (223 lb) Heart: Regular rate, rhythm, no murmurs, gallops, rubs. Lungs: Clear to auscultation, bilaterally, breathing non labored. Ext: No cyanosis, clubbing, or edema. Component Latest Ref Rng ANDamp; Units 09/15/2016 12/26/2016 05/01/2017 11/01/2017 Glucose 74 - 99 mg/dL 113 (H) 103 (H) 114 (H) BUN 7 - 21 mg/dL 21 25 (H) 23 (H) Creatinine 0.58 - 0.96 mg/dL 0.88 0.91 0.90 Sodium 136 - 144 mmol/L 142 143 142 Potassium 3.7 - 5.1 mmol/L 4.4 4.4 4.5 Chloride 97 - 105 mmol/L 102 102 104 CO2 22 - 30 mmol/L 26 28 28 Anion Gap 9 - 18 mmol/L 14 13 10 Calcium 8.5 - 10.2 mg/dL 9.8 9.8 9.9 eGFR- ANDgt;60 ANDgt;60 ANDgt;60 eGFR-All Other Races . ANDgt;60 ANDgt;60 ANDgt;60 Triglyceride ANDlt;150 mg/dL 90 96 Cholesterol, Total ANDlt;200 mg/dL 175 180 HDL Cholesterol ANDgt;39 mg/dL 37 (L) 38 (L) VLDL Cholesterol ANDlt;30 mg/dL 18 19 LDL Cholesterol ANDlt;100 mg/dL 120 123 (H) Fasting Time hrs 12 9 TC:HDL Ratio ANDlt;5.10 4.73 4.74 LDL:HDL Ratio ANDlt;2.54 3.24 3.24 (H) Non HDL Cholesterol ANDlt;130 mg/dL 138 142 (H) Creatinine, Ur Random (UCRR) 20 - 300 mg/dL 28.5 Albumin, Urine Random 0.0 - 23.0 mg/L ANDlt;12.0 Albumin/Creat Ratio 0 - 30 mg/g Not calculated Hemoglobin A1C 4.3 - 5.6 % 5.8 (H) 6.3 (H) 6.2 (H) 6.0 (H) Estimated Average Glucose mg/dL 120 134 131 126 TSH 0.400 - 5.500 uU/mL 1.880 ASSESSMENT AND PLAN: Encounter Diagnosis ICD-10-CM 1. Controlled type 2 diabetes mellitus without complication, without long-term current use of insulin (HCC) E11.9 COMP METABOLIC PANEL CBC HGB A1C 2. Hypertension goal BP (blood pressure) ANDlt; 140/90 I10 COMP METABOLIC PANEL CBC 3. BMI 45.0-49.9, adult (HCC) Z68.42 4. Screening for breast cancer Z12.31 DAVID SCREENING DAVID SCREENING W ANTONIO LIPID PANEL BASIC 5. Hyperlipidemia associated with type 2 diabetes mellitus (HCC) E11.69 E78.5 Above issues addressed with patient. Patient involved in shared decision making for management of her medical issues. History and medications reviewed. Epic updated as needed Refills taken care of and meds adjusted as indicated after reviewed history, exam and labs. Health Maintenance reviewed. Updated record and/or ordered tests as recorded. Encouraged on efforts at healthy diet and regular exercise and adequate sleep. Needs to keep working on diet and exercise with lifestyle changes for effective weight loss as well as DM control and improve lipids and continue BP control. Noted had gained weight since last year bu may have plateaued. The majority of the visit was spent counseling and/or coordinating care for the patient. Kakc-na-qpjr time was at least 25 minutes. Abby Camacho MD Referring Provider: ABBY CAMACHO [[id number]] Allergies As of Date: 11/06/2017 Noted Allergy Reaction LIPITOR (ATORVASTATIN) 06/27/2016 2 - Rash Comments: red itchy rash around neck--resolved after stopping med; hands froze with stiffness that started a week after taking a couple pills--resolving Date Reviewed: 11/06/2017 Reviewed by: Musa Ferrell - Fully Assessed Reason for Visit: F/U 6 Month [444] Reason For Visit History Recorded Primary Visit Diagnosis:Controlled type 2 diabetes mellitus without complication, without long-term current use of insulin (HCC) [E11.9] Other Visit Diagnoses:Hypertension goal BP (blood pressure) < 140/90 [I10] BMI 45.0-49.9, adult (HCC) [Z68.42] Screening for breast cancer [Z12.31] Hyperlipidemia associated with type 2 diabetes mellitus (HCC) [E11.69, E78.5] Order(s):DAVID SCREENING [[id number]] Order #: [id number] FUTURE DAVID SCREENING W ANTONIO [[id number]] Order #: [id number] FUTURE COMP METABOLIC PANEL [SQCMP] Order #: [id number] FUTURE CBC [SQCBC] Order #: [id number] FUTURE LIPID PANEL BASIC [SQLIPB] Order #: [id number] FUTURE HGB A1C [[id number]] Order #: [id number] FUTURE Prescriptions as of 11/06/2017 Sig: BENZONATATE 100 MG CAPSULE Take 2 capsules by mouth thre* METFORMIN 500 MG TABLET Take 1 tablet by mouth daily * NAPROXEN SODIUM 220 MG TABLET Take 1 tablet by mouth twice * RANITIDINE 150 MG TABLET Take 1 tablet by mouth once d* BLOOD SUGAR DIAGNOSTIC STRIPS Test blood sugar(s) 4 times d* ASPIRIN 81 MG TABLET,DELAYED * Take 1 tablet by mouth once d* METOPROLOL SUCCINATE ER 50 MG* Take 1 tablet by mouth once d* LANCETS Test blood sugar(s) 4 times d* * BRANNON-600 WITH VITAMIN D 600 MG* Take one(1) tablet two(2) haleigh* * COMPOUNDED PRESCRIPTION Herbal Laxative Take as direc* * GLUCOSAMINE SULFATE DIPOTASSI* Take one(1) tablet daily. Problem List As Of Date 11/06/2017 Noted Resolved BMI 45.0-49.9, adult (HCC) [Z68.42] More... TACHYCARDIA NOS [R00.0] INVALID FOR* Hypertension goal BP (blood pressure) < 140/90 *INVALID FOR* More... Hyperlipidemia associated with type 2 diabetes *INVALID FOR* Pain in joint, lower leg [M25.569] INVALID FOR*12/15/2010 Nonspecific abnormal results of liver function *INVALID FOR*03/04/2012 Diabetes mellitus type 2, controlled, without c*INVALID FOR* More... GENERAL OSTEOARTHROSIS [M15.9] INVALID FOR* Polycythemia, secondary [D75.1] INVALID FOR* More... Colon cancer screening [Z12.11] INVALID FOR*01/05/2016 Acid indigestion [K30] INVALID FOR* Disposition: Return in about 6 months (around 05/08/2018) for 6 months follow up, With labs prior. Follow-up and Disposition History Recorded Encounter Status:Closed by ABBY CAMACHO MD on 11/14/17 BASIC METABOLIC PANL Collected: 11/01/2017 Status: F Source: [place] 8:13 AM [facility] REPOSITORY TYPE CODE TESTS RESULT OUT OF REFERENCE UNITS RANGE LAB GLU 74-99 mg/dL High Glucose 114 Result Comment: The [place] Diabetes Association (ADA) provides guidance for cutoff values for fasting glucose and random glucose. The ADA defines fasting as no caloric intake for at least 8 hours. Fas ting plasma glucose results between 100 to 125 mg/dL indicate increased risk for diabetes (prediabetes). Fasting plasma glucose results greater than or equal to 126 mg/dL meet the criteria for diagnosis of diabetes. In the absence of unequivocal hyperglycemia, results should be confirmed by repeat testing. In a patient with classic symptoms of hyperglycemia or hyperglycemic crisis, random plasma glucose results greater than or equal to 200 mg/dL meet the criteria for diagnosis of diabetes. Reference: Standards of Medical Care in Diabetes 2016, [place] Diabetes Association. Diabetes Care. 2016.39(Suppl 1). LAB BUN 7-21 mg/dL BUN High 23 LAB CRET 0.58-0.96 mg/dL Creatinine 0.90 LAB NA 136-144 mmol/L Sodium 142 LAB K 3.7-5.1 mmol/L Potassium 4.5 LAB CL 97-105 mmol/L Chloride 104 LAB CO2 22-30 mmol/L CO2 28 LAB AGAP 9-18 mmol/L Anion Gap 10 LAB CA 8.5-10.2 mg/dL Calcium, Total 9.9 LAB GFRAA eGFR- Amer. >60 LAB GFRNAA . eGFR-All Other Races >60 Result Comment: eGFR (Estimated GFR) Units of measure: mL/min/1.73 meters squared eGFR is derived from the reexpressed MDRD Study equation using the following parameters: serum creatinine, age, gender and race. The creatinine assay has been calibrated to be traceable to IDMS. An eGFR <60 mL/min/1.73m2 for >3 months is consistent with chronic kidney disease. Refer to KDOQI guidelines for clinical interpretation. In patients with unstable renal function, e.g. those with acute kidney injury, the eGFR may not accurately reflect actual GFR. Performed By: #### BMP, LIPB, HBA1C #### [facility] [address] [place] [address] LIPID PANEL, BASIC Collected: 11/01/2017 Status: F Source: [place] 8:13 AM [facility] REPOSITORY TYPE CODE TESTS RESULT OUT OF REFERENCE UNITS RANGE LAB CHOL <200 mg/dL Cholesterol 180 Result Comment: <200 mg/dL, Desirable 200-239 mg/dL, Borderline high >239 mg/dL, High LAB TRIGLY <150 mg/dL Triglyceride 96 Result Comment: <150 mg/dL, Normal 150-199 mg/dL, Borderline high 200-499 mg/dL, High >499 mg/dL, Very high LAB HDL >39 mg/dL HDL-Cholesterol Low 38 Result Comment: 40-59 mg/dL, Acceptable >59 mg/dL, High: Negative risk factor for coronary heart disease <40 mg/dL, Low: Positive risk factor for coronary heart disease LAB LDL <100 mg/dL LDL-Cholesterol High 123 Result Comment: <100 mg/dL, Optimal 100-129 mg/dL, Near optimal/above optimal 130-159 mg/dL, Borderline high 160-189 mg/dL, High >189 mg/dL, Very high Secondary prevention optimal LDL Cholesterol levels are recommended to be < 70 mg/dL LAB NONHDL <130 mg/dL Non HDL High Cholesterol 142 Result Comment: <130 mg/dL, Optimal 130-159 mg/dL, Near optimal/above optimal 160-189 mg/dL, Borderline high 190-219 mg/dL, High >219 mg/dL, Very high Secondary prevention optimal non HDL Cholesterol levels are recommended to be < 100 mg/dL LAB FT hrs Fasting Time 9 LAB VLDL <30 mg/dL VLDL Cholesterol 19 LAB TCHDL <5.10 TC:HDL Ratio 4.74 LAB LDLHDL <2.54 High LDL:HDL Ratio 3.24 Result Comment: Reference: 1. National Cholesterol Education Program ATP III Guideline At-A-Glance Quick Desk Reference: National Heart, Lung, and Blood [place]. National Institutes of Health. 2001: NIH Publication No. 01-3305. 2. An International Atherosclerosis Society position paper: global recommendations for the management of dyslipidemia: executive summary, Atherosclerosis. 2014: 232(2):410-413. Performed By: #### BMP, LIPB, HBA1C #### [facility] [address] [place], [place] [address] HEMOGLOBIN A1C Collected: 11/01/2017 Status: F Source: [place] 8:13 AM [facility] REPOSITORY TYPE CODE TESTS RESULT OUT OF REFERENCE UNITS RANGE LAB HGBA1C 4.3-5.6 % High Hemoglobin A1c 6.0 LAB HBA0 mg/dL Est. Average Glucose 126 Result Comment: eAG: (Estimated average glucose) is a calculated value from HgbA1c and is leasing representative of the average blood glucose level in the last 2-3 month period. Performed By: #### BMP, LIPB, HBA1C #### [facility] [address] [place], [place] [address] TSH Collected: 11/01/2017 Status: F Source: [place] 8:13 AM [facility] REPOSITORY TYPE CODE TESTS RESULT OUT OF RANGE REFERENCE UNITS LAB TSH 0.400-5.500 uU/mL TSH 1.880 Performed By: #### TSH #### [facility] [address] [place], [place] [address] PROGRESS Observed: 10/23/2017 Status: COMPLETED Source: [place] 11:17 AM [facility] REPOSITORY HNO ID: [id number] Author: Jackson Chan) Abdirizak Service: (none) Author Type: Physician Knitter Helper Type: Progress Notes Filed: 10/23/2017 12:07 PM Note Text: Subjective HPI Pt presents with sinus congestion for 2 weeks. She has also had a cough. 5 days ago she tried mucinex dm and has been taking that during the day and nyquil. No fever. No vomiting or diarrhea. Review of Systems Constitutional: Negative. HENT: Positive for congestion, ear pain and sore throat. Eyes: Negative. Respiratory: Positive for cough. Cardiovascular: Negative. Gastrointestinal: Negative. Genitourinary: Negative. Skin: Negative. All other systems reviewed and are negative. PAST MEDICAL HISTORY Diagnosis Date - ABNORMAL LIVER FUNCTION STUDY 10/20/2007 - Arrhythmia - Diabetes (HCC) - GENERAL OSTEOARTHROSIS 05/10/2008 - HYPERGLYCEMIA 10/20/2007 - HYPERLIPIDEMIA NEC/NOS 10/12/2005 - HYPERTENSION NOS 10/12/2005 - Impaired fasting glucose 10/20/2007 - Intramural leiomyoma of uterus 1995 - Obesity, unspecified - Palpitations 2003 hospitalized September 2003 for evaluation - Polycythemia, secondary 03/28/2011 - Pure hypercholesterolemia - TACHYCARDIA NOS 04/03/2005 Current Outpatient Prescriptions: metFORMIN (GLUCOPHAGE) 500 mg tablet Take 1 tablet by mouth daily with breakfast. Disp: 90 tablet Rfl: 3 ranitidine (ZANTAC) 150 mg tablet Take 1 tablet by mouth once daily as needed (Attempting to wean prilosec). Disp: 30 tablet Rfl: 3 blood sugar diagnostic (BLOOD GLUCOSE TEST) test strip Test blood sugar(s) 4 times daily. Dx: Type 2 DM - Uncontrolled E11.65 Insulin: Yes; Accucheck [facility] Medical: [phone] Disp: 300 Strip Rfl: 11 aspirin, enteric coated (ASPIRIN, ENTERIC COATED) 81 mg EC tablet Take 1 tablet by mouth once daily. Disp: Rfl: 0 metoprolol succinate ER (TOPROL XL) 50 mg 24 hr tablet Take 1 tablet by mouth once daily. Disp: Rfl: 0 Lancets lancets Test blood sugar(s) 4 times daily. Dx: Type 2 DM - Uncontrolled E11.65 Insulin: Yes Disp: 100 Each Rfl: 11 BRANNON-600 WITH VITAMIN D 600 MG-200 UNIT TAB Take one(1) tablet two(2) times daily. Disp: Rfl: 0 COMPOUNDED PRESCRIPTION Herbal Laxative Take as directed. Disp: Rfl: 0 GLUCOSAMINE 1,000 MG ORAL TAB Take one(1) tablet daily. Disp: Rfl: 0 doxycycline (VIBRA-TABS) 100 mg tablet Take 1 tablet by mouth twice daily for 10 days. Disp: 20 tablet Rfl: 0 benzonatate (TESSALON PERLE) 100 mg capsule Take 2 capsules by mouth three times daily as needed. Disp: 30 capsule Rfl: 0 naproxen sodium (ALEVE) 220 mg tablet Take 1 tablet by mouth twice daily with meals. TAKE WITH FOOD Disp: Rfl: No current facility-administered medications for this visit. PAST SURGICAL HISTORY Procedure Laterality Date - APPENDECTOMY - BREAST BIOPSY W/STEREOTACTIC GUIDANCE Left 08/23/2015 - COLONOSCOP W/ OR W/O [facility] SPEC 03/02 Colonoscopy - COLONOSCOP W/ OR W/O [facility] SPEC 01/05/16 Colonoscopy - TOTAL ABDOM HYSTERECTOMY 1995 Hysterectomy, EVELIO, BSO for fibroids and bleeding - TOTAL KNEE REPLACEMENT 01/31/2009 Knee replacement, total, left per dr johnson - TOTAL KNEE REPLACEMENT 12/15/2012 right knee FAMILY HISTORY Problem Relation Age of Onset - Breast Cancer Mother dec.age 71 - Diabetes Father dec.age83 - Heart Father CABG, CHF - Alzheimer's Disease Father - Cancer Brother Lung Social History Substance Use Topics - Smoking status: Never Smoker - Smokeless tobacco: Never Used - Alcohol use No BP 122/70 Pulse 80 Temp 36.7 ?C (98 ?F) (Tympanic) Resp 16 Wt 106.1 kg (234 lb) SpO2 98% BMI 47.26 kg/m2 Objective Physical Exam Constitutional: She is oriented to person, place, and time and well-developed, well-nourished, and in no distress. HENT: Head: Normocephalic and atraumatic. Right Ear: Tympanic membrane, external ear and ear canal normal. Left Ear: Tympanic membrane, external ear and ear canal normal. Nose: Mucosal edema and rhinorrhea present. Right sinus exhibits maxillary sinus tenderness. Left sinus exhibits maxillary sinus tenderness. Mouth/Throat: Uvula is midline, oropharynx is clear and moist and mucous membranes are normal. Eyes: Conjunctivae are normal. Neck: Normal range of motion. Neck supple. Cardiovascular: Normal rate, regular rhythm and normal heart sounds. Pulmonary/Chest: Effort normal and breath sounds normal. Harsh cough noted Lymphadenopathy: She has no cervical adenopathy. Neurological: She is alert and oriented to person, place, and time. Skin: Skin is warm and dry. No rash noted. Psychiatric: Affect and judgment normal. Nursing note and vitals reviewed. ASSESSMENT/PLAN: 1. Sinobronchitis - ICD9: 473.9, 490, ICD10: J32.9, J40 - Will begin treatment with as per antibiotic as written, see orders- Doxycycline and tessalon - Supportive care with plenty of fluids, rest, and analgesia prn. - Follow up in one week if symptoms persist or worsen. - Discussed with patient concerning symptoms to go to the emergency department or follow up here. Pt agreeable with this plan. BAO Ruff Observed: 10/23/2017 Status: COMPLETED Source: [place] 10:45 AM [facility] REPOSITORY [facility] LITO [id number]) 1950 F Date Time Provider Department 10/23/17 10:45 AM JACKSON BRAVO (LANI) [facility] During your visit today, we recorded the following information about you: Temperature Pulse Respiration Blood pressure 98 degrees 80/minute 16/minute 122/70 Weight 106.1 kg Jackson Bravo PA-C 10/23/2017 12:07 PM Signed Subjective HPI Pt presents with sinus congestion for 2 weeks. She has also had a cough. 5 days ago she tried mucinex dm and has been taking that during the day and nyquil. No fever. No vomiting or diarrhea. Review of Systems Constitutional: Negative. HENT: Positive for congestion, ear pain and sore throat. Eyes: Negative. Respiratory: Positive for cough. Cardiovascular: Negative. Gastrointestinal: Negative. Genitourinary: Negative. Skin: Negative. All other systems reviewed and are negative. PAST MEDICAL HISTORY Diagnosis Date - ABNORMAL LIVER FUNCTION STUDY 10/20/2007 - Arrhythmia - Diabetes (HCC) - GENERAL OSTEOARTHROSIS 05/10/2008 - HYPERGLYCEMIA 10/20/2007 - HYPERLIPIDEMIA NEC/NOS 10/12/2005 - HYPERTENSION NOS 10/12/2005 - Impaired fasting glucose 10/20/2007 - Intramural leiomyoma of uterus 1995 - Obesity, unspecified - Palpitations 2003 hospitalized September 2003 for evaluation - Polycythemia, secondary 03/28/2011 - Pure hypercholesterolemia - TACHYCARDIA NOS 04/03/2005 Current Outpatient Prescriptions: metFORMIN (GLUCOPHAGE) 500 mg tablet Take 1 tablet by mouth daily with breakfast. Disp: 90 tablet Rfl: 3 ranitidine (ZANTAC) 150 mg tablet Take 1 tablet by mouth once daily as needed (Attempting to wean prilosec). Disp: 30 tablet Rfl: 3 blood sugar diagnostic (BLOOD GLUCOSE TEST) test strip Test blood sugar(s) 4 times daily. Dx: Type 2 DM - Uncontrolled E11.65 Insulin: Yes; Accucheck [facility] Medical: [phone] Disp: 300 Strip Rfl: 11 aspirin, enteric coated (ASPIRIN, ENTERIC COATED) 81 mg EC tablet Take 1 tablet by mouth once daily. Disp: Rfl: 0 metoprolol succinate ER (TOPROL XL) 50 mg 24 hr tablet Take 1 tablet by mouth once daily. Disp: Rfl: 0 Lancets lancets Test blood sugar(s) 4 times daily. Dx: Type 2 DM - Uncontrolled E11.65 Insulin: Yes Disp: 100 Each Rfl: 11 BRANNON-600 WITH VITAMIN D 600 MG-200 UNIT TAB Take one(1) tablet two(2) times daily. Disp: Rfl: 0 COMPOUNDED PRESCRIPTION Herbal Laxative Take as directed. Disp: Rfl: 0 GLUCOSAMINE 1,000 MG ORAL TAB Take one(1) tablet daily. Disp: Rfl: 0 doxycycline (VIBRA-TABS) 100 mg tablet Take 1 tablet by mouth twice daily for 10 days. Disp: 20 tablet Rfl: 0 benzonatate (TESSALON PERLE) 100 mg capsule Take 2 capsules by mouth three times daily as needed. Disp: 30 capsule Rfl: 0 naproxen sodium (ALEVE) 220 mg tablet Take 1 tablet by mouth twice daily with meals. TAKE WITH FOOD Disp: Rfl: No current facility-administered medications for this visit. PAST SURGICAL HISTORY Procedure Laterality Date - APPENDECTOMY - BREAST BIOPSY W/STEREOTACTIC GUIDANCE Left 08/23/2015 - COLONOSCOP W/ OR W/O [facility] SPEC 03/02 Colonoscopy - COLONOSCOP W/ OR W/O [facility] SPEC 01/05/16 Colonoscopy - TOTAL ABDOM HYSTERECTOMY 1995 Hysterectomy, EVELIO, BSO for fibroids and bleeding - TOTAL KNEE REPLACEMENT 01/31/2009 Knee replacement, total, left per dr johnson - TOTAL KNEE REPLACEMENT 12/15/2012 right knee FAMILY HISTORY Problem Relation Age of Onset - Breast Cancer Mother dec.age 71 - Diabetes Father dec.age83 - Heart Father CABG, CHF - Alzheimer's Disease Father - Cancer Brother Lung Social History Substance Use Topics - Smoking status: Never Smoker - Smokeless tobacco: Never Used - Alcohol use No BP 122/70 Pulse 80 Temp 36.7 ?C (98 ?F) (Tympanic) Resp 16 Wt 106.1 kg (234 lb) SpO2 98% BMI 47.26 kg/m2 Objective Physical Exam Constitutional: She is oriented to person, place, and time and well-developed, well-nourished, and in no distress. HENT: Head: Normocephalic and atraumatic. Right Ear: Tympanic membrane, external ear and ear canal normal. Left Ear: Tympanic membrane, external ear and ear canal normal. Nose: Mucosal edema and rhinorrhea present. Right sinus exhibits maxillary sinus tenderness. Left sinus exhibits maxillary sinus tenderness. Mouth/Throat: Uvula is midline, oropharynx is clear and moist and mucous membranes are normal. Eyes: Conjunctivae are normal. Neck: Normal range of motion. Neck supple. Cardiovascular: Normal rate, regular rhythm and normal heart sounds. Pulmonary/Chest: Effort normal and breath sounds normal. Harsh cough noted Lymphadenopathy: She has no cervical adenopathy. Neurological: She is alert and oriented to person, place, and time. Skin: Skin is warm and dry. No rash noted. Psychiatric: Affect and judgment normal. Nursing note and vitals reviewed. ASSESSMENT/PLAN: 1. Sinobronchitis - ICD9: 473.9, 490, ICD10: J32.9, J40 - Will begin treatment with as per antibiotic as written, see orders- Doxycycline and tessalon - Supportive care with plenty of fluids, rest, and analgesia prn. - Follow up in one week if symptoms persist or worsen. - Discussed with patient concerning symptoms to go to the emergency department or follow up here. Pt agreeable with this plan. Jackson Bravo PA-C Referring Provider: SELF [200] Allergies As of Date: 10/23/2017 Noted Allergy Reaction LIPITOR (ATORVASTATIN) 06/27/2016 2 - Rash Comments: red itchy rash around neck--resolved after stopping med; hands froze with stiffness that started a week after taking a couple pills--resolving Date Reviewed: 10/23/2017 Reviewed by: Luis Alfredo Hewitt Ma - Fully Assessed Reason for Visit: Head Congestion [234] Cmt: headache, cough x 2 weeks Primary Visit Diagnosis:Sinobronchitis [J32.9, J40] Order(s):doxycycline (VIBRA-TABS) 100 mg tabletTake 1 tablet by mouth twice daily for 10 days.Disp: 20 tabletRfl: 0 benzonatate (TESSALON PERLE) 100 mg capsuleTake 2 capsules by mouth three times daily as needed.Disp: 30 capsuleRfl: 0 Prescriptions as of 10/23/2017 Sig: METFORMIN 500 MG TABLET Take 1 tablet by mouth daily * RANITIDINE 150 MG TABLET Take 1 tablet by mouth once d* BLOOD SUGAR DIAGNOSTIC STRIPS Test blood sugar(s) 4 times d* ASPIRIN 81 MG TABLET,DELAYED * Take 1 tablet by mouth once d* METOPROLOL SUCCINATE ER 50 MG* Take 1 tablet by mouth once d* LANCETS Test blood sugar(s) 4 times d* * BRANNON-600 WITH VITAMIN D 600 MG* Take one(1) tablet two(2) haleigh* * COMPOUNDED PRESCRIPTION Herbal Laxative Take as direc* * GLUCOSAMINE SULFATE DIPOTASSI* Take one(1) tablet daily. DOXYCYCLINE HYCLATE 100 MG TA* Take 1 tablet by mouth twice * BENZONATATE 100 MG CAPSULE Take 2 capsules by mouth thre* NAPROXEN SODIUM 220 MG TABLET Take 1 tablet by mouth twice * Medication notes this encounter NAPROXEN SODIUM 220 MG TABLET >> Luis Alfredo Hewitt Ma 10/23/2017 11:06 AM >> LUIS ALFREDO HEWITT MA SatOct 23, 2017 11:06 AM not taking Problem List As Of Date 10/23/2017 Noted Resolved BMI 45.0-49.9, adult (HCC) [Z68.42] More... TACHYCARDIA NOS [R00.0] INVALID FOR* Hypertension goal BP (blood pressure) < 140/90 *INVALID FOR* More... Hyperlipidemia associated with type 2 diabetes *INVALID FOR* Pain in joint, lower leg [M25.569] INVALID FOR*12/15/2010 Nonspecific abnormal results of liver function *INVALID FOR*03/04/2012 Diabetes mellitus type 2, controlled, without c*INVALID FOR* More... GENERAL OSTEOARTHROSIS [M15.9] INVALID FOR* Polycythemia, secondary [D75.1] INVALID FOR* More... Colon cancer screening [Z12.11] INVALID FOR*01/05/2016 Acid indigestion [K30] INVALID FOR* Prescriptions ordered this encounter Disp Refills Start End DOXYCYCLINE HYCLATE 100 MG TABLET 20 t* 0 10/23/2017 11/02/2017 Route: ORAL Sig: Take 1 tablet by mouth twice daily for 10 days. BENZONATATE 100 MG CAPSULE 30 c* 0 10/23/2017 Route: ORAL Sig: Take 2 capsules by mouth three times daily as needed. Encounter Status:Closed by JACKSON BRAVO PA-C on 10/23/17 LUCAS Observed: 10/22/2017 Status: COMPLETED Source: [place] 12:00 AM [facility] REPOSITORY Patient Outreach ([facility]) LITO GONZALEZ ([id number]) 1950 F Date Time Provider Department [facility]22[facility] During your visit today, we recorded the following information about you: Allergies As of Date: 10/22/2017 Noted Allergy Reaction LIPITOR (ATORVASTATIN) 06/27/2016 2 - Rash Comments: red itchy rash around neck--resolved after stopping med; hands froze with stiffness that started a week after taking a couple pills--resolving Date Reviewed: 05/08/2017 Reviewed by: Dian Hirsch Manager Erp - Fully Assessed Visit Diagnosis:Medication management [Z79.899] Order(s):EDWARD BLD [SQTSH] Order #: [id number] FUTURE Prescriptions as of 10/22/2017 Sig: X METFORMIN 500 MG TABLET Take 1 tablet by mouth daily * NAPROXEN SODIUM 220 MG TABLET Take 1 tablet by mouth twice * RANITIDINE 150 MG TABLET Take 1 tablet by mouth once d* X BLOOD SUGAR DIAGNOSTIC STRIPS Test blood sugar(s) 4 times d* ASPIRIN 81 MG TABLET,DELAYED * Take 1 tablet by mouth once d* METOPROLOL SUCCINATE ER 50 MG* Take 1 tablet by mouth once d* LANCETS Test blood sugar(s) 4 times d* * BRANNON-600 WITH VITAMIN D 600 MG* Take one(1) tablet two(2) haleigh* * COMPOUNDED PRESCRIPTION Herbal Laxative Take as direc* * GLUCOSAMINE SULFATE DIPOTASSI* Take one(1) tablet daily. Problem List As Of Date 10/22/2017 Noted Resolved BMI 45.0-49.9, adult (HCC) [Z68.42] More... TACHYCARDIA NOS [R00.0] INVALID FOR* Hypertension goal BP (blood pressure) < 140/90 *INVALID FOR* More... Hyperlipidemia associated with type 2 diabetes *INVALID FOR* Pain in joint, lower leg [M25.569] INVALID FOR*12/15/2010 Nonspecific abnormal results of liver function *INVALID FOR*03/04/2012 Diabetes mellitus type 2, controlled, without c*INVALID FOR* More... GENERAL OSTEOARTHROSIS [M15.9] INVALID FOR* Polycythemia, secondary [D75.1] INVALID FOR* More... Colon cancer screening [Z12.11] INVALID FOR*01/05/2016 Acid indigestion [K30] INVALID FOR* Encounter Status:Closed by DENNYS DAVIS on 05/09/18 ALLERGIES ALLERGIES DATE TYPE / CODE NAME / CODE REACTION SEVERITY SOURCE 08/21/2018 Drug No Known Unknown [place] Allergy/416 Allergies/[id number] [facility] 322338(SN 8(RXNORM) Hospital ED CT) Repository 06/27/2016 DRUG ATORVASTATIN RASH [facility] INGREDI/[address] [place] [address] [id number](SNOM Repository ED CT) ENCOUNTERS ENCOUNTERS ADMIT/DISCHARGE ACCOUNT ADMITTING ENCOUNTER LOCATION SOURCE NUMBER CLASS 08/21/2018/08/21/19 [id number] Ambulatory BMSBuilding:Iron Simons 19 MS.[facility] Repository 08/15/2018 [id number] Ambulatory [facility] ing:OPUS Repository 05/12/2018/05/28/20 [id number] Ambulatory [address] Repository 05/07/2018/05/07/20 [id number] Ambulatory [address] Repository 02/18/2018/02/19/20 [id number] Ambulatory BMSBuilding:Iron Simons 18 MS.[facility] Repository 02/10/2018 [id number] Ambulatory [facility] ing:BIRAD Repository 02/10/2018 [id number] Ambulatory BMSBuilding:Iron Simons MS.CF.[facility] Repository 02/06/2018/02/07/20 [id number] Ambulatory BMSBuilding:B Kristyn 18 MS.[facility] Repository 12/18/2017/12/19/19 [id number] Ambulatory [address] Repository 12/18/2017/12/19/19 [id number] Ambulatory [address] Repository 11/19/2017/11/20/19 [id number] Ambulatory [address] Repository 11/15/2017/11/16/19 [id number] Ambulatory BMSBuilding:B Kristyn 18 MS.[facility] Repository 11/14/2017 [id number] Ambulatory BMSBuilding:B Kristyn MS.[facility] Repository 11/06/2017/11/16/[id number] Repository 11/01/[id number] [facility] Repository 10/23/2017/10/24/[id number] Repository PAYERS PAYERS ENCOUNTER GUARANTOR PAYER SUBSCRIBER SOURCE 08/21/2018 LITO Dejesus Primary LITO P [place] [id number] S Insurance:HUMANA MILLERDOB: Community [place] [facility] [id number] Number: Repository [address]Kyj: 330 [id number] [phone] () Date:[id number] [address] [address]EP: 08/21/2018 Secondary NOT GIVENUNK [place] Insurance:SELF PAY [facility] Number: Effective Repository Date:2018-08-18 08/15/2018 LITO Dejesus Primary LITO [place] [id number] S Insurance:AMADOU CUNNINGHAMB: Community [place] [facility] [place] [id number] Number: Repository [address]Phc: 330 [id number] [phone] () Date:[id number] [address]KC: 08/15/2018 Secondary NOT GIVENUNK [place] Insurance:SELF PAY [facility] Number: Effective Repository Date:2018-02-18 02/18/2018 Anibal Morgan Primary LITO CUNNINGHAMB: Kristyn [id number] S Insurance:HUMANA [id number] Community [place] [facility] [place] [place] Number: Repository [address]Yze: 330 [id number] [phone] () Date:[id number] [address]FR: 02/18/2018 Secondary NOT GIVENUNK [place] Insurance:SELF PAY [facility] Number: Effective Repository Date:2018-02-18 02/10/2018 Anibal A Primary LITO GONZALEZDOB: [place] [id number] S Insurance:HUMANA [id number] Community [place] [facility] [place] [place] Number: Repository [address]Efz: (330 [id number] [phone] (HP) Date:1628-26-83ZQ [address] [address]KB: 02/10/2018 Secondary NOT GIVENUNK [place] Insurance:SELF PAY [facility] Number: Effective Repository Date:2018-02-06 02/10/2018 Anibal A Primary LTIO GONZALEZDOB: Kristyn [id number] S Insurance:HUMANA [id number] Community [place] [facility] [place] [place] Number: Repository [address]Iel: 330 [id number] [phone] (HP) Date:[id number] [address]WP: 02/10/2018 Secondary NOT GIVENUNK [place] Insurance:SELF PAY [facility] Number: Effective Repository Date:2018-02-10 02/06/2018 Anibal A Primary LITO GONZALEZDOB: Kristyn [id number] S Insurance:HUMANA [id number] [facility] [place] [facility]ARE [place] [place] Number: Repository [address]Kky: 330 [id number] [phone] (HP) Date:7819-31-96GB [place] [address]WP: 02/06/2018 Secondary NOT GIVENUNK Kristyn Insurance:SELF PAY [facility] Number: Effective Repository Date:2018-02-06 11/15/2017 Anibal A Primary LITO GONZALEZDOB: Kristyn [id number] S Insurance:HUMANA [id number] [facility] [place] [facility] [place] Number: Repository [address]Wgg: 330 [id number] [phone] (HP) Date:5377-00-01LB [place] [address]WP: 11/15/2017 Secondary NOT GIVENUNK Kristyn Insurance:SELF PAY [facility] Number: Effective Repository Date:2017-10-28 11/14/2017 Anibal A Primary NOT GIVENUNK [place] [id number] S Insurance:SELF PAY [facility] alvina Enriquez Number: Effective Repository [phone]: 330) Date:2017-11-14 [phone] ()
== END ==
PROVIDERS: Family Provider Internal Medicine; PCP Internal Medicine; Referring Provider Surgery; Visit Provider Surgery
DX: R92.8 Other abnormal and inconclusive findings on diagnostic imaging of breast (principal); Z98.890 Other specified postprocedural states
CPT/HCPCS: 77061; 77065; G0279

== ENCOUNTER → 2018-12-05 10:56 | Outpatient (CLI) | payer MEDICARE, SELFPAY ==
[2018-11-18 11:11] VITALS: BMI 46.8
--- NOTE | 2018-12-05 11:05 | ECHOD_ITS ---
Reason For Study: MURMUR Procedure This was a 2D Doppler, Color Flow transthoracic echocardiogram. The study was technically difficult. Due to body habitus. Contrast injection was performed. Exam performed in department. Left Ventricle Normal LV size. Left ventricular systolic function is normal. The estimated ejection fraction is 60 %. Stage 2 diastolic dysfunction. No regional wall motion abnormalities noted. Right Ventricle Normal RV size. Normal systolic function. Atria The left atrium is mildly enlarged. Normal right atrium. Mitral Valve Normal mitral valve. Tricuspid Valve The tricuspid valve is not well visualized. Mild tricuspid valve insufficiency. Pulmonary artery systolic pressure is 24 mmHg. Aortic Valve Trisinus/trileaflet aortic valve. Moderate focal aortic valve calcification. Peak aortic valve gradient 25 mmHg. Mean aortic valve gradient 17 mmHg. Calculated aortic valve area (continuity equation) is 1.4 cm2. Pulmonic Valve Normal pulmonic valve. Great Vessels Normal aortic root. The pulmonary artery is normal size. Normal inferior vena cava. Pericardium/Pleural No pericardial effusion. Medication 22 gauge I.V. with prn adaptor inserted into right arm. Diluted definity 2.0ml given slow IV push to enhance endocardial definition. MMode/2D Measurements & Calculations LVIDd: 4.1 cm IVSd: 1.1 cm LVOT diam: 2.0 cm LVIDs: 2.7 cm LVPWd: 1.1 cm RVDd: 2.9 cm FS: 33.3 % LVOT area: 3.0 cm2 Ao root diam: 3.2 cm LAV(MOD-bp): 67.1 ml LA A4 area: 21.3 cm2 LAV(MOD-bp) Indexed: 34.0 ml/m2 LAV(MOD-sp2): 66.2 ml LAV(MOD-sp4): 64.9 ml LA dimension(2D): 3.9 cm RA A4 area: 10.8 cm2 Time Measurements MV dec time: 0.19 sec Doppler Measurements & Calculations MV E max alcides: 122.8 cm/sec Lat Peak E' Alcides: 7.5 cm/sec Med Peak E' Alcides: 6.4 cm/sec MV A max alcides: 102.4 cm/sec E/E' lat: 16.4 E/E' med: 19.2 MV E/A: 1.2 Ao V2 max: 243.3 cm/sec LV V1 max: 113.9 cm/sec SV(LVOT): 80.2 ml Ao max P.7 mmHg LV V1 max P.2 mmHg Ao V2 mean: 202.3 cm/sec LV V1 mean P.8 mmHg Ao mean P.6 mmHg LV V1 mean: 80.3 cm/sec Ao V2 VTI: 65.0 cm LV V1 VTI: 26.6 cm BENITA(I,D): 1.2 cm2 BENITA(V,D): 1.4 cm2 PA V2 max: 86.9 cm/sec TR max alcides: 224.1 cm/sec TR max P.1 mmHg Interpretation Summary Normal LV size. Left ventricular systolic function is normal. The estimated ejection fraction is 60 %. Stage 2 diastolic dysfunction. Mean aortic valve gradient 17 mmHg. Calculated aortic valve area (continuity equation) is 1.4 cm2. Moderate focal aortic valve calcification. Ordering Physician: Celia Calles Referring Physician: Celia Calles Performed By: Jennifer Mays, LYNN, RVT
== END ==
PROVIDERS: Family Provider Internal Medicine; PCP Internal Medicine; Referring Provider Physician Assistant Medical; Visit Provider Physician Assistant Medical
DX: I38 Endocarditis, valve unspecified (principal)
CPT/HCPCS: 93306; Q9957; A4216

== ENCOUNTER 2019-02-02 06:37 | Day surgery (SDC) | payer MEDICARE, SELFPAY ==
[2019-01-05 13:08] VITALS: BMI 46.8
--- NOTE | 2019-01-06 11:23 | HP_ITS ---
Intake Vital Signs 01/05/19 Body Mass Index (BMI) 46.8 01/05/19 Height 0 in 01/05/19 Weight: 248 lb 5 oz 01/05/19 Body Mass Index (BMI) 0.0 01/05/19 Blood Pressure 116/73 01/05/19 Blood Pressure Location Rt brachial 01/05/19 Blood Pressure Position Sitting 01/05/19 Respiratory Rate 18 01/05/19 Pulse Rate 90 01/05/19 Pulse Ox 96 Intake Visit Reasons: C-Scope/[facility] 01/05/16 Marylou Chief Complaint: discuss colonoscopy Community Engagement Representative Required: No Is patient in pain?: No Allergies atorvastatin [From Lipitor] Allergy (Intermediate, Verified 01/05/19 13:06) Rash Medications Aspirin [Aspirin, Baby] 81 mg PO DAILY@0800 #30 tab.chew 09/21/15 [Rx Confirmed 01/05/19] metformin 500 mg tablet 500 mg PO QDAY tab 10/25/17 [History Confirmed 01/05/19] metoprolol succinate ER 50 mg tablet,extended release 24 hr 50 mg PO DAILY #90 tab 07/09/18 [Rx Confirmed 01/05/19] calcium carbonate 500 mg calcium (1,250 mg) tablet 500 mg PO DAILY tab 01/05/19 [History Confirmed 01/05/19] glucosamine HCl 750 mg tablet 750 mg PO BID 01/05/19 [History Confirmed 01/05/19] Is last menstrual period known: No Post menopausal: Yes Patient : No PFSH Medical History Valvular heart disease (Chronic) Sepsis (Resolved) Diverticulitis (Resolved) Encephalopathy (Resolved) DKA (diabetic ketoacidoses) (Resolved) Arthritis (Chronic) Paroxysmal SVT (supraventricular tachycardia) (Acute) Hypertension (Chronic) Aortic valve calcification (Chronic) Paroxysmal atrial fibrillation (Chronic) Diabetes type 2, uncontrolled (Chronic) Morbid obesity (Chronic) Microcalcification of left breast on mammogram (Resolved) Surgical History History of total right knee replacement (TKR) (Chronic) History of appendectomy (Chronic) History of total hysterectomy (Chronic) History of total left knee replacement (Chronic) history left breast stereotactic biopsy (Resolved ~02/10/18) Family History Father COPD (chronic obstructive pulmonary disease) CAD (coronary artery disease) Mother Cancer Breast cancer Social History Smoking Status: Never smoker second hand exposure: No alcohol intake: never substance use type: does not use caffeine: No what type of physical activity do you participate in: none frequency: does not exercise seatbelt use: always HPI HPI HPI: LITO GONZALEZ, is a 68 F who presents to the office today for HPI HPI Surgical H&P: Yes HPI: LITO GONZALEZ, is a 68 F who presents to the office today for evaluation for colonoscopy. Patient had her last colonoscopy in December 2015 where she was noted to have a tubular adenoma removed from her transverse colon. She has not had any further problems with her bowels she is moving her bowels normally and there is no and no blood. Her weight is stable. ROS General General: No weight change, appetite, fatigue, colon cancer, breast cancer or weakness HEENT HEENT: No difficulty swallowing, eye injury, eye surgery, swollen glands or hoarseness Endo Endocrine: Yes diabetes mellitus; no thyroid disease, thyroid cancer, Hair loss, heat intolerance or cold intolerance Musc Musculoskeletal: Yes arthritis; no back problems, rheumatoid arthritis, gout or joint pain Cardio Cardiovascular: Yes murmur; no pacemaker, heart disease, atrial fibrillation, high blood pressure, heart attack, heart stent, palpitations, shortness of breat with exertion or chest pain Resp Respiratory: No shortness of breath, No sleep apnea, No cough, No COPD, No asthma, No emphysema, No wheezing Gastro Gastrointestinal: No abdominal pain, No nausea or vomiting, No diarrhea, No constipation, No blood in stool, No acid reflux, No hemorrhoids, No ulcers, No gallbladder problem, No black,tarry stools Neuro Neurologic: No weakness Exam Const General: no acute distress, well developed, well hydrated Orientation: oriented to person, oriented to place, oriented to time [facility] Head: normocephalic, atraumatic Ears: external ears normal Mouth: moist mucous membranes Eyes Sclera: sclerae normal Pupils: normal by confrontation Neck Neck: no lymphadenopathy noted Neck mass: No Thyroid: thyroid normal, symmetrical Chest Chest palpation & inspection: normal inspection of the chest Resp Effort & Inspection: normal respiratory effort Auscultation: clear to auscultation bilaterally Percussion: percussion normal Cardio Rate: regular rate Rhythm: regular rhythm Heart Sounds: murmur GI Palpation: soft, no hepatosplenomegaly, no masses, nontender Rectal Exam: other Other: Rectal exam deferred. Extrem General: normal to inspection, no clubbing, cyanosis or edema Assessment & Plan Problems 1. Personal history of colonic polyps Z86.010 Plan I have discussed the above with the patient. I have offered the patient colonoscopy for evaluation. I have explained the risks/benefits of the procedure and described the procedure. I have discussed the risks with the patient, including but not limited to: infection, bleeding, perforation of the GI tract requiring emergency surgery, inability to complete the procedure, injury to any internal organs, complications of anesthesia, etc. - the patient understands and agrees to proceed. I have answered all the patient's questions to the patient's satisfaction and the patient has no further questions. The patient has been given instructions for the colon cleansing preparation. Orders Orders: Colonoscopy 01/05/19 Coding Level of Care Code Off vis,new,level 3 Diagnoses Personal history of colonic polyps Z86.010 01/06/19 1124 <Electronically signed by Mars luis MD> Date _ Mars Sanchez MD I have re-examined the patient. There are no clinical changes since date of exam.
[2019-02-02 07:12] VITALS: BP 125/70; PULSE 87; RESP 16; TEMP 36.6; O2SAT 99; BMI 47.2
[2019-02-02 07:31] LABS: Bedside Glucose 121 mg/dL (70-110)
[2019-02-02 08:25] VITALS: BP 125/70; BP 144/83; PULSE 83; RESP 18; TEMP 36.8; O2SAT 94
--- NOTE | 2019-02-02 08:27 | OP.ENDO_ITS ---
02/02/2019 Marleny Camacho [address] [place] [address] Re : Colonoscopy procedure for Jennifer Fabricio Dear Dr. Camacho This procedure was performed on Saturday, February 02, 2019. My impressions and recommendations are as follows: Impressions : - Non-bleeding internal hemorrhoids. - The examination was otherwise normal. - No specimens collected. Recommendations : - Discharge patient to home. - Resume previous diet. - Continue present medications. - Repeat colonoscopy in 10 years for screening purposes. - Return to primary care physician PRN. My findings are described in the full procedure note, which is enclosed. If I can be of further assistance, please feel free to contact me at Doctor phone number(s): , Fax: [phone], Work: . Sincerely, MD Mars Trevino MD 02/02/2019 8:26:48 AM This report has been signed electronically.
[2019-02-02 08:30] VITALS: BP 125/70; BP 139/83; PULSE 82; RESP 18; O2SAT 97
[2019-02-02 08:35] VITALS: BP 125/70; BP 138/79; PULSE 83; RESP 18; O2SAT 97
[2019-02-02 08:40] VITALS: BP 125/70; BP 130/74; PULSE 84; RESP 18; TEMP 36.7; O2SAT 97
[2019-02-02 08:43] VITALS: BP 125/70
== END 2019-02-02 09:21 | disposition home or self-care (01) ==
LOC: EN 06:37 → AC 06:39
PROVIDERS: Family Provider Internal Medicine; PCP Internal Medicine; Referring Provider Internal Medicine; Visit Provider Surgery
PROC: 0DJD8ZZ Inspection of Lower Intestinal Tract, Via Natural or Artificial Opening Endoscopic (ICD-10-PCS; CPT 45378; principal; 2019-02-02 07:55)
DX: Z86.010 Personal history of colon polyps (principal); K64.8 Other hemorrhoids; I47.1 Supraventricular tachycardia; I48.0 Paroxysmal atrial fibrillation; I10 Essential (primary) hypertension; J44.9 Chronic obstructive pulmonary disease, unspecified; E11.9 Type 2 diabetes mellitus without complications; M19.90 Unspecified osteoarthritis, unspecified site; E66.01 Morbid (severe) obesity due to excess calories; Z68.42 Body mass index [BMI] 45.0-49.9, adult; Z79.82 Long term (current) use of aspirin; Z79.899 Other long term (current) drug therapy; Z79.84 Long term (current) use of oral hypoglycemic drugs
CPT/HCPCS: G0105; 82962; J7120

== ENCOUNTER → 2019-04-15 10:44 | Outpatient (CLI) | payer MEDICARE, SELFPAY ==
--- NOTE | 2019-04-15 10:46 | BI_ITS ---
MAMMOGRAPHY - BILATERAL SCREENING REASON FOR EXAM: Female, 68 years old. Routine annual screening examination. PERTINENT HISTORY: Mother with breast cancer. Grandmother with breast cancer. Remote left stereotactic breast biopsy. TECHNIQUE: Digital bilateral breast antonio (3D mammographic acquisition) in the CC and MLO projections. 2-D mediolateral oblique (MLO) and craniocaudad (CC) views of both breasts were obtained. CAD: Full Field Digital Mammography with Computer Added Detection was performed. COMPARISON: Comparison is made with prior study dated November 19, 2017 and August 15, 2018. FINDINGS: Breast Composition: There are scattered areas of fibroglandular density. There are no dominant masses or suspicious calcifications. A tissue clip marker is once again seen in the small density in the upper slightly deep medial portion of the left breast. This has decreased in size as compared to prior study. This most likely represents postbiopsy changes. No other significant abnormalities are identified. BI/SCREEN MAMM (CAD) W/ANTONIO BILAT IMPRESSION: Stable bilateral screening mammogram. Yearly follow-up mammogram recommended. (A) ASSESSMENT CATEGORY: BIRADS Category 2: Benign. A letter regarding these results will be sent to the patient by the facility within 30 days. Approximately 10% of breast cancers are not detected by mammography. A normal mammogram should not delay biopsy of a clinically suspicious abnormality. [id number] Electronically Signed: Murali Malhotra, at 12:38 EDT , Service support ,
== END ==
PROVIDERS: Family Provider Internal Medicine; PCP Internal Medicine; Referring Provider Surgery; Visit Provider Surgery
DX: R92.8 Other abnormal and inconclusive findings on diagnostic imaging of breast (principal); Z12.31 Encounter for screening mammogram for malignant neoplasm of breast
CPT/HCPCS: 77063; 77067

== ENCOUNTER → 2019-11-25 05:56 | Outpatient (CLI) | payer MEDICARE, SELFPAY ==
[2019-11-03 10:58] VITALS: BMI 42.0
--- NOTE | 2019-11-25 08:45 | STRESSREP ---
Stress Test Report Pharmacologic myocardial perfusion stress test. 69-year-old lady with a history of paroxysmal atrial fibrillation, supraventricular tachyarrhythmia, hypertension for preoperative evaluation for hip surgery. Stress protocol: Resting EKG demonstrates normal sinus rhythm with a rate of 80 bpm. An incomplete right bundle branch block is noted. 0.4 mg of regadenoson was infused per usual protocol followed by Intravenous saline flush injection continuous EKG monitoring was performed. The maximum heart rate attained was 106 bpm which was 71% of maximum predicted heart rate the maximum workload was 1 metabolic equivalent. At rest there were no ST or T wave changes noted to suggest abnormal flow reserve at peak infusion nonspecific ST-T wave changes were noted to suggest abnormal flow reserve. The resting blood pressure was 124/62 with a final blood pressure 138/82. No clinical angina was noted. Myocardial perfusion protocol. 15.0 mCi of technetium 99m sestamibi was injected at rest. 0.4 mg of regadenoson was infused per usual protocol peak infusion 45.0 mCi of technetium 99m sestamibi was injected stress images were obtained stress and rest images were reconstructed in comparing the short axis vertical long horizontal long axis. Gated images were also obtained per Perfusion SPECT analysis: Review of the stress images demonstrate normal uptake of tracer noted in all areas of the myocardium the resting images similar demonstrate normal uptake of tracer noted in all areas of the myocardium. No areas of reversibility are noted to suggest ischemia no previous infarct is noted. Gated SPECT analysis: The gated ejection fraction is 64%. Conclusion: Normal pharmacologic myocardial perfusion stress test. Preserved ejection fraction.
== END ==
PROVIDERS: PCP Internal Medicine; Referring Provider Physician Assistant Medical; Visit Provider Physician Assistant Medical
DX: Z01.810 Encounter for preprocedural cardiovascular examination (principal); I45.10 Unspecified right bundle-branch block
CPT/HCPCS: 78452; 93017; A9500; A4216; J2785

== ENCOUNTER 2019-12-02 07:28 | Observation (INO) | payer MEDICARE, SELFPAY ==
[2019-11-03 10:58] VITALS: BMI 42.0
--- NOTE | 2019-11-19 12:16 | EKG12_ITS ---
Test Reason : PREOP Blood Pressure : / mmHG Vent. Rate : 087 BPM Atrial Rate : 087 BPM P-R Int : 162 ms QRS Dur : 130 ms QT Int : 400 ms P-R-T Axes : 065 094 -03 degrees QTc Int : 481 ms Normal sinus rhythm Right bundle branch block T wave abnormality, consider inferior ischemia Abnormal ECG Confirmed by VICKIE RAZA, VIC ([id number]), film or videotape editor EULOGIO GONZALEZ ([id number]) on 11/23/2019 10:57:36 AM Referred By: Roberto Carlos Barney Confirmed By:ELIEL JOHNSTON MD
--- NOTE | 2019-11-19 12:45 | HP.PCM_ITS ---
History and Physical History and Physical [facility] Patient Name: Jennifer Regalado : 1950 From: VILLA GOODSON PA-C DATE OF SURGERY: 11/24/2019 SCHEDULED PROCEDURE: right total hip arthroplasty HISTORY OF PRESENT ILLNESS: Preoperative history and physical exam was performed on November 19, 2019. This is a 69-year-old female who has been having ongoing pain in her right hip for the past 6-8 months. Patient's pain has been intermittent, aching. She has difficulty with going up and down stairs and walking secondary to the pain. She does have start up pain. Pain is located in the right groin and anterior thigh. Patient states she has very difficult time with getting dressed and doing any bathing/showering due to the pain. Patient has had recent falls secondary to her right hip pain. She denies previous surgery on the right hip. Patient has been using a wheelchair and walker for the past 6-8 months. Patient has lost approximately 16 pounds to get ready for the surgery. Patient has attempted conservative measures consisting of physical therapy with no relief in symptoms. She has tried water therapy and land physical therapy. She has also had corticosteroid injection which only gave temporary relief. Patient currently denies any recent chest pain, shortness of breath, fevers chills, recent infections. She does have a medical history pertinent for hypertension, supraventricular tachycardia, diabetes, and obesity. Patient has obtain surgical clearance from the plant electrician Dr. Hubbard and PCP Dr. Camacho. After failing conservative measures and discussing treatment options with Dr. Roberto Carlos Barney, the patient does wish to proceed with a right total hip arthroplasty. Patient has had continued worsening pain in the hip with falls and had progressive osteoarthritis and flattening of the femoral head on x-rays. REVIEW OF SYSTEMS: ROS: Const: Denies anorexia, change in appetite, fever, hard of hearing, vision problems and weight change. CV: Reports irregular heartbeat, but denies chest pain, heart murmur and peripheral vascular disease. Resp: Denies asthma, cough, pneumonia, sleep apnea, SOB, tuberculosis and wheezing. GI: Denies constipation, diarrhea, difficulty swallowing, heartburn, nausea, bloody stools and vomiting. : Urinary: denies incontinence. Musculo: Denies leg swelling, limp, trouble walking and weakness. Skin: Denies Raynaud's, history of shingles and tattoo. Neuro: Denies ambulatory dysfunction, dizziness, numbness/tingling and tremor. Psych: Denies anxiety, depression, insomnia, mental illness and stress. Isiah/Lymph: Denies anemia, bleeding/bruising tendency and past transfusion. Reviewed, no changes - 11/19/2019 at 12:35 pm by Villa Goodson PAST MEDICAL HISTORY: Advance Care Plan: No Advance Directives Effective Date: 12/18/2018 PMH: Medical Problems: Arthritis, Rapid Heart Beat, Diabetes, Supraventricular Tachycardia, Hypertension, Hypercholesterolemia, Secondary Polycythemia Accidents: Fracture - LT ARM - 4TH GRADE Surgical Hx: Appendectomy - [facility] - DR. 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 Personal Habits: Cigarette Use: Never.Alcohol: Denies use.Drug Use: Denies Use.Enjoy Exercising: Daily. Reviewed, no changes - 11/19/2019 at 12:35 pm by Villa Goodson VITALS: Ht: 59 Wt: 224lb Wt k.606 BMI: 45.2 BP: 116/70 Pulse: 79 T: 97.9 T: 36.6C ALLERGIES: Lipitor MEDICATIONS: Metformin HCL 500 mg 1 by mouth every day, Metoprolol Succinate ER 50 mg 1 by mouth every day, Aspirin 81 mg 1 by mouth every day, Calcium Magnesium 750 300- 300 mg 1 tab PO daily, SM Glucosamine Sulfate 1000 mg 1 qd, Factor V 400MG 2 daily PRE-OP EXAM: General appearance:NORMAL Other: Eyes: Conjunctivae and lids: NORMAL Pupils: ERR Ears, Nose, Mouth, and Throat: NORMAL Other: Inspection of lips, teeth and gums: NORMAL Other: Neck: Examination of neck: no masses noted. Respiratory: Assessment of respiratory effort: NORMAL Other: Auscultation of lungs: clear to auscultation no wheezes, rhonchi or rales. Cardiovascular: Auscultation of heart: regular rate and rhythm, positive systolic murmurs. Exam of carotid arteries: NORMAL Other: Gastrointestinal: Exam of abdomen: soft, nontender, nondistended bowel sounds present. PHYSICAL EXAMINATION: Patient presents today in a wheelchair but does ambulate with a walker. Right hip is cool to touch without erythema or signs of infection. Right hip flexion 60, internal rotation neutral, external rotation 20 with increased pain. There is evidence of previous bilateral total knee arthroplasties with incisions well healed without erythema. Sensation intact to light touch. Neurovascularly intact. IMAGING STUDIES: X-rays were obtained that [facility] on November 19, 2019 including 3 views AP pelvis, AP right hip, frog leg right hip reveals no acute finding for fracture or dislocation. Patient has progressive osteoarthritis with progressive flattening of the femoral head, subchondral sclerosis, bone cysts and femoral head and acetabulum, osteophyte formation consistent with severe erosive osteoarthritis. No lytic or blastic lesions were appreciated. IMPRESSION: 1. Severe right hip erosive osteoarthritis 2. Hypertension 3. Supraventricular tachycardia 4. Type 2 diabetes mellitus 5. Hypercholesterolemia 6. Secondary polycythemia 7. Aortic Calcification PLAN: Dr. Roberto Carlos Barney did discuss and review with the patient all treatment options including surgical versus nonsurgical options. Patient does wish to proceed with the above-stated procedure. Potential risks, benefits, and complications of the procedure were discussed in detail including but not limited to , infection, nerve and blood vessel damage, persistent pain, numbness, tingling, paresthesias, blood clot, pulmonary embolism, and requirement for possible further surgery. The patient expressed full understanding and has no further questions for the doctor. Patient does agree to proceed with the above-stated procedure and has signed the surgery consent form. This dictation was created using voice recognition software. Phonetic and/or grammatical errors may exist. ___ I have re-examined the patient. There are no clinical changes since date of exam. ___ See progress notes for changes. ___ Dictated on admission Date: Time: Signature:
[2019-11-19 12:48] LABS: Absolute Lymphocyte Count 2.29 X10^3/uL (0.83-4.51); Absolute Neutrophil Count 4.7 X10^3/uL (2.0-7.7); Basophil# 0.09 X10^3/uL; Basophil% 1.1 % (0-1); Eosinophil# 0.34 X10^3/uL; Eosinophils% 4.1 % (0-5); Hematocrit 45.5 % (37-47); Lymphocyte # 2.29 X10^3/ul (4.0); Lymphocyte % 27.6 % (19-41); Mean Platelet Vol. 11.4 fl (6.2-12.0); Monocyte# 0.89 X10^3/uL; Monocyte% 10.7 % (0-10); NRBC Flagged by Analyzer 0 % (0-5); Neutrophil # 4.68 X10^3/uL (2.7-7.7); Neutrophil % 56.3 % (47-70); Platelet Count 170 K/mm3 (150-450); RBC Distribution Width CV 12.7 % (11.6-14.6); RBC Distribution Width SD 43.5 fl (35.1-43.9); Red Blood Count 4.84 M/mm3 (4.2-5.4); White Blood Count 8.3 K/mm3 (4.4-11.0)
[2019-11-19 13:30] LABS: Anion Gap 9 (5-15); BUN 25 mg/dL (7-18); BUN/Creat Ratio 37.7 RATIO (10-20); Calcium,Total 9.3 mg/dL (8.5-10.1); Chloride 109 mmol/L (98-107); Creatinine, Serum 0.66 mg/dL (0.55-1.02); EST Glomerular Filtration Rate 93 mL/min (>60); Est Glom Filt Rate - Afr Amer 113 mL/min (>60); Glucose 83 mg/dL (74-106); Hemoglobin A1c 6.2 % (4.2-6.3); Potassium 4.3 mmol/L (3.5-5.1); Sodium Level 141 mmol/L (136-145)
[2019-12-02] VITALS (11 sets, daily range): BP systolic 101–140; BP diastolic 49–83; PULSE 68–88; RESP 16–18; TEMP 36.1–36.8; O2SAT 98–100; BMI 44.8; BMI 44.7
--- NOTE | 2019-12-02 | HIP_PTH ---
PATIENT: LITO GONZALEZ LOC: [facility] U#:[id number] AGE/SX: 69/F ROOM: [id number] RE12/02/[address]: Dr. Zahida Love MD : 1950 BED: 1 DIS: 12/03/2019 SPEC #: [id number] RECD: 12/02/19 14:14 STATUS: AJ REQ #: [id number] CONRADO: 12/02/19 00:[address]: Roberto Carlos Barney DEPT: SURGICAL PATHOLOGY RECD BY: Hal Jean ENTERED: 12/03/19 10:14 SP TYPE: TOTAL HIP OTHR DR: MD Dr. Paulino Palomo MD Dr. Liza D Talampas, MD Dr. Steven Widmer, MD Tissues: Hip, NOS Procedures: Decalcification bone/plaque Surgery Specimen Level IV Comments: @ Ordering doctor for DEC edited from to @ by HERMAN at 12/04/19 0841 @ Ordering doctor for SUIV edited from to @ by HERMAN at 12/04/19 0841 @ Submitting doctor edited from to @ by HERMAN at 12/04/19 0841 HEADER OPERATION: ERAS, total hip anterior approach PRE-OP DIAGNOSIS: Severe right hip erosive osteoarthritis TISSUE SUBMITTED: Right femoral head MICROSCOPIC DIAGNOSIS Right femoral head, total hip replacement/resection: Femoral head with degenerative osteoarthritic changes. AUDRA:forrest 12/07/19 MICROSCOPIC DESCRIPTION Slides are reviewed. GROSS DESCRIPTION Received is one container designated right femoral head. The specimen consists of a marquez femoral head measuring 4 x 4 x 3.5 cm. The articular surface displays prominent osteophyte formation, eburnation and bone erosion. No soft tissue is identified. Professor Of Special Education sections are submitted in one cassette after decalcification. / AUDRA:forrest 12/03/19 TC:5 CPT: 57960, 98560
[2019-12-02] MEDS: Gabapentin 600 MG Tablet PO ×2 (07:00→07:24)
[2019-12-02] MEDS: Celecoxib 200 MG Capsule 400 MG PO ×2 (07:00→07:25)
[2019-12-02] MEDS: Acetaminophen 500 MG Tablet 1000 MG PO ×4 (07:00→22:12)
--- NOTE | 2019-12-02 07:00 | RAD_ITS ---
STUDY: X-RAY - PELVIS AND RIGHT HIP REASON FOR EXAM: Female, 69 years old. ANTERIOR TOTAL HIP RIGHT TECHNIQUE: 1 views of the pelvis and hip. COMPARISON: None. FINDINGS: Intraoperative imaging provided for right hip replacement. RAD/Hip 1 view with Pelvis IMPRESSION: Intraoperative imaging provided for right total hip replacement. Electronically Signed: Murali Malhotra, at 12:52 EDT , Service support ,
[2019-12-02 07:20] LABS: Bedside Glucose 108 mg/dL (70-110)
[2019-12-02] MEDS: Lactated Ringers 1,000 ML 999 ML IV ×2 (07:23→12:00)
--- NOTE | 2019-12-02 07:28 | RAD_ITS ---
STUDY: X-RAY - PELVIS AND RIGHT HIP REASON FOR EXAM: Female, 69 years old. Post op anterior hip right TECHNIQUE: 2 views of the pelvis and hip. COMPARISON: Comparison is made with prior study dated September 16, 2015. FINDINGS: The patient is status post right total hip preplacement. There is good alignment. Postoperative soft tissue changes. RAD/Hip Min 2 Views (Portable) IMPRESSION: Status post right total hip replacement. There is good alignment. Postoperative soft tissue changes. Electronically Signed: Murali Malhotra, at 12:43 EDT , Service support ,
[2019-12-02] MEDS: Lactated Ringers 1,000 ML 785 ML IV (08:58)
[2019-12-02] MEDS: Cefazolin 2 GM in 0.9% Normal Saline 100 ML IV (09:12)
[2019-12-02] MEDS: dexAMETHasone 10 MG/ML Vial IV (09:50)
[2019-12-02] MEDS: Lidocaine/D5W 2,000 MG/250 ML IV.SOLN 2000 MG (09:50)
--- NOTE | 2019-12-02 11:04 | PCM.OPRPT ---
Report of Operation Date of Procedure: 12/02/19 Pre-Operative Diagnosis: Right hip primary osteoarthritis Post-Operative Diagnosis: Right hip primary osteoarthritis Surgery/Procedure Performed:: Right minimally invasive direct anterior hip replacement Description of Surgical Findings:: Stable hip equal leg lengths autocad operator: Jordan Sosa Type of Anesthesia:: General Anesthesiologist: Alok Mckeon Special Medications: 2 g Ancef, 1 g TXA at incision, 1 g TXA closure, 10 mg Decadron, joint cocktail (5 mg Duramorph, 30 mL of 0.5% Ropivicaine, 1000 units of epinephrine, 30 mg of Toradol) Estimated Blood Loss (mL): 200 ml Fluids Replaced: 1300 mL crystalloid Description of Procedure: Components used: 1. Accolade 2 Goodrich femoral stem size 2 127? 2. Goodrich trident 2 acetabular shell size 46 mm 3. Goodrich X3 polyethylene MDM femoral head, 36C 4. Luis Miguel [id number] mm, 0mm femoral head Brief history operative indications: 69yo female who failed conservative measures for their hip osteoarthritis. X-rays were consistent with osteoarthritis including joint space narrowing, osteophyte formation and subchondral cysts. Total hip replacement was discussed with the patient with risks and benefits including but not limited to blood loss, DVTs, PEs, neurovascular damage, dislocation, general risks of anesthesia including loss of life. Patient demonstrated an understanding medical clearance is obtained the patient was consented for surgery. Procedure: On the date of procedure the patient's right hip was marked in the preoperative area. Patient was then taken back to the operating room where anesthesia assumed control of the C-spine and airway and administered anesthetic. Patient was transferred to the operating table and placed in the supine position. The hips were placed at the break of the bed and a sacral bump was placed. The right lower extremity was then prepped out in a sterile fashion using chlorhexidine while the surgeon scrubbed. The PA was vital in the positioning of the patient. Upon reentering the room the right lower extremity was draped in the standard orthopedic fashion and the incision was marked. A timeout was called and everyone agreed upon the side, the site, the procedure be performed, antibody given, and patient's identity. At this time incision was made through skin, subcutaneous tissue, and fat down to fascia. The fascia was then incised and the TFL was retracted laterally. A retractor was placed on the lateral border of the femoral neck. Attention was directed to the inferior portion of the approach and all crossing vessels were identified and appropriately coagulated. A retractor was then placed on the medial portion of the femoral neck. The anterior capsule was then cleared of all soft tissue and then H shaped capsulotomy was made. The retractors were then placed inside the capsule. The femoral neck was identified and a cleanup cut was made. At this time a power corkscrew was used to remove the femoral head. The exposure portion of the case took an extended amount of time due to the patient's body habitus with a BMI of 44.8. This was done for the safety of the patient to ensure appropriate anatomic landmarks through the adipose tissue. Attention was then turned toward the acetabulum where the soft tissues were appropriately retracted and the acetabulum was sequentially reamed to 46 mm. A 46 mm cup was then selected and impacted into place. Acetabular liner was impacted into place and locking mechanism was verified. The position of the acetabular cup was then verified under live fluoroscopy. Due to the patient's body habitus and careful retractor placement as well as being careful not to over retract on the soft tissues and neurovascular structures this portion of the case took an extended amount of time. Attention was then turned to the femur. Soft tissue releases on the medial and lateral femoral neck were appropriately done, the leg was externally rotated and lateralized. A Diamond retractor was placed medially and proximally to the greater trochanter this allowed appropriate visualization and exposure of the femoral canal. Rongeour was then used to remove excess lateral bone. A canal finder and entry broach were used to open the proximal canal. Once we verified we were down the femoral canal we subsequently broached up to a size 2 femur. The appropriate neck was placed in the previously selected head was trialed with a 0 mm neck. Traction was pulled and the hip was reduced with internal rotation. Once it was appropriately reduced and stability was checked. There was minimal shuck, equal leg lengths and appropriate stability with hyperextension and external rotation as well as with 90? flexion and internal rotation. Fluoroscopy was then also used to verify the position of the components and leg lengths using the contralateral side for comparison. Due to the patient's body habitus it took an extended amount of time to appropriately and safely expose the femur. The leg had to be repositioned multiple times for appropriate visualization. The trial components were then dislocated the proximal femur was again exposed and the components were removed from the wound. The final components were verified and opened. The wound was copiously irrigated out with normal saline. The acetabulum was checked for any residual debris. The final components were placed and impacted. Traction and internal rotation were again used to reduce the hip. After adequate reduction the hip remained stable with appropriate leg lengths. The final components were once again checked with live fluoroscopy and were found to be satisfactory. The wound was then copiously irrigated with normal saline once more, and hemostasis was obtained. Closure was then done using #1 Vicryl runner to close the fascia. A 2-0 vicryl interuppted sutures were used to close the subcutaneous skin. A 3-0 Monocryl and Steri-Strips were used for final skin closure. Due to the patient's body habitus closure took an extended amount of time. A Silverlon dressing was placed. Patient was awakened by anesthesia and transferred to the [place]. Patient was then transferred to the PACU for recovery. Postoperative plan: Patient will get 24 hours postop antibiotics. Patient will get in-house physical therapy and will be weight-bear as tolerated. Patient will follow up in office in 2 weeks for a wound check and x-rays. Modifier 22: Due to the patient's body habitus with a BMI of 44.8 as you can see above this case took an extended amount of time. This is due to the adipose tissue and appropriate retraction and identifying appropriate landmarks as well as safety of the patient. This should be considered in reimbursement of this case. Case took roughly 30% longer. Grafts/Implants Used: Goodrich - Complications No intraoperative complications - Admit VTE Documentation VTE Present on Admission: No VTE Mechan Device Prophylaxis: SCD's, Thigh High LINDY Hose VTE Pharm Prophylaxis ordered?: Yes
[2019-12-02 12:15] LABS: Bedside Glucose 162 mg/dL (70-110)
[2019-12-02] MEDS: Cefazolin 1 GM/50 ML BAG IV ×2 (15:22→22:15)
--- NOTE | 2019-12-02 15:38 | PCM.CONS.GEN ---
Problem List (1) Status post right hip replacement Status: Acute (2) Type 2 diabetes mellitus Status: Chronic (3) Paroxysmal SVT (supraventricular tachycardia) Status: Chronic (4) Paroxysmal atrial fibrillation Status: Chronic (5) Nonrheumatic aortic (valve) stenosis Status: Chronic (6) Essential (primary) hypertension Status: Chronic Reason for Consult Date of Consultation: 12/02/19 Reason for Consultation: Postoperative medical management. History of Present Illness: The patient is a 69 year old F with past medical history as mentioned above underwent elective right direct anterior hip replacement for right hip osteoarthritis today and I am seeing this patient in consultation for postoperative medical management. At this time, she complained of mild dizziness, no other complaints. She denied right hip pain. She is eating her lunch and sitting in the chair comfortably. She denied chest pain or shortness of breath. She does have a history of type 2 diabetes mellitus, she has been on metformin and her blood sugar has been under control, hemoglobin A1c was 6.2% on October,. She will history of hypertension which has been under control with metoprolol. She will history of paroxysmal atrial fibrillation, currently on sinus rhythm and she is on metoprolol for rate control but not on anticoagulation. Her vital signs are stable. Her preoperative routine blood work that was done on November 19, 2019 was unremarkable. Preoperative EKG done on the same date and revealed normal sinus rhythm and right bundle branch block, no acute ischemic changes or cardiac arrhythmias. She had preoperative nuclear stress test that was normal without evidence of stress-induced myocardial ischemia and ejection fraction was 64%. Past Medical History Past Medical History (Chronic Problems): Chronic Problems (Last Reviewed 11/03/19 @ 11:[address] Ac Hubbard MD) Type 2 diabetes mellitus (Chronic) Paroxysmal SVT (supraventricular tachycardia) (Chronic) Paroxysmal atrial fibrillation (Chronic) Nonrheumatic aortic (valve) stenosis (Chronic) Aortic valve calcification (Chronic) Per echo 09/19/15, mild Essential (primary) hypertension (Chronic) Medical History: Medical History (Last Reviewed 11/03/19 @ 11:[address] Ac Hubbard MD) Paroxysmal SVT (supraventricular tachycardia) (Chronic) I47.1 Paroxysmal atrial fibrillation (Chronic) I48.0 Nonrheumatic aortic (valve) stenosis (Chronic) I35.0 Aortic valve calcification (Chronic) I35.9 Per echo 09/19/15, mild Essential (primary) hypertension (Chronic) I10 Abnormal mammogram of left breast R92.8 Arthritis M19.90 Diabetes type 2, uncontrolled E11.65 Morbid obesity E66.01 DKA (diabetic ketoacidoses) E13.10 Diverticulitis K57.92 Encephalopathy G93.40 Microcalcification of left breast on mammogram R92.0 Sepsis A41.9 Allergies atorvastatin [From Lipitor] Allergy (Intermediate, Verified 12/02/19 07:14) Rash Home Medications: Ambulatory Orders Medication Instructions Recorded metformin 500 mg tablet 500 mg PO QDAY tab 10/25/17 calcium carbonate 500 mg calcium 500 mg PO DAILY tab 01/05/19 (1,250 mg) tablet glucosamine HCl 750 mg tablet 750 mg PO DAILY 01/05/19 aspirin 81 mg tablet,delayed 81 mg PO DAILY 11/03/19 release Metoprolol Succinate 50 mg PO DAILY 11/20/19 Naproxen Sodium [Aleve] 220 mg PO QHS 11/20/19 Naproxen Sodium [Aleve] 440 mg PO DAILY 11/20/19 Surgical History: Surgical History (Last Reviewed 11/03/19 @ 11:[address] Ac Hubbard MD) History of total right knee replacement (TKR) Z96.651 History of appendectomy Z90.49 History of total hysterectomy Z90.710 History of total left knee replacement Z96.652 01/31/2009 history left breast stereotactic biopsy Onset Date: 02/10/18 Surgical History: hysterectomy, total knee arthroplasty, - Psychiatric History: No pertinent psych hx Lives: Spouse/ Significant Other Smoking Status: Never smoker Tobacco Use: Non-smoker Alcohol: None Drugs: None - *Family History Maternal Family History: Family History (Last Reviewed 12/02/19 @ 15:[address] Paulino Harvey MD) Father COPD (chronic obstructive pulmonary disease) CAD (coronary artery disease) Mother Cancer Breast cancer Review of Systems Constitutional: Denies: Anorexia, Chills, Fever, Weakness Eyes: Denies: Blurred vision, Double vision, Drainage, Eyelid Inflammation, Redness HEENT: Denies: Difficulty Hearing, Ear Pain, Eye Pain, Nasal Congestion, Sore Throat Cardiovascular: Reports: Light Headedness. Denies: Chest Pain, Chest Pressure, Chest Tightness, Heaviness, Palpitations, Syncope Respiratory: Denies: Cough, Hemoptysis, Pleuritic Pain, Shortness of Breath, Sputum production, Wheezing Gastrointestinal: Denies: Abdominal Pain, Constipation, Diarrhea, Nausea, Vomiting Genitourinary: Denies: Dysuria, Frequency, Hematuria Musculoskeletal: Denies: Arm Pain, Back Pain, Foot Pain Skin: Denies: Dryness, Rash Neurological: Denies: Balance problems, Blurred vision, Double vision, Change in Speech, Slurred speech, Headaches, Incoordination, Numbness Psychiatric: Denies: Anxiety, Depression Endocrine: Denies: Change in Body Habitus, Polydipsia, Polyuria Patient Problems: Active and Suspected Problems (Last Reviewed 11/03/19 @ 11:[address] Ac Hubbard MD) Status post right hip replacement (Acute) - Physical Exam Vitals/I&O's: Vital Signs Temp Pulse Resp BP Pulse Ox 97.6 F L 80 18 124/64 H 100 12/02/19 13:55 12/02/19 13:55 12/02/19 13:55 12/02/19 13:55 12/02/19 13:55 Oxygen Flow Rate (L/min) 6 Oxygen Delivery Method Room Air Weight: 222 lb 0.088 oz Body Mass Index (BMI) 44.7 Finger Stick Blood Glucose 168 Intake and Output for Last 24 Hours 11/30/19 12/01/19 12/02/19 23:59 23:59 23:59 Intake Total 2860 / 2860 Output Total 450 / 450 Balance 2410 / 2410 General: Alert, Oriented x3, Cooperative, No apparent distress HEENT: Atraumatic, PERRLA, EOMI, Normocephalic Oral: Moist Mucosa, No Gingival or Mucosal Lesions/ Ulcerations Neck: Supple, No JVD, Negative Carotid Bruits, Trachea Midline, Thyroid Normal Size and Texture Lungs: Clear to auscultation, Normal air movement, No rhonchi, No wheeze, No rales Cardiovascular: Regular rate, Regular Rhythm, Normal S1, Normal S2, PMI Normal Abdomen: Bowel Sounds Present, Soft, Non Tender, Non-Distended, No Hepato-splenomegaly, Obese Extremities: No clubbing, No cyanosis, Edema - Nonpitting edema. Skin: No rashes, No breakdown Lymphatic: No Cervical, Supraclavicular, or Inguinal Adenopathy Neurological: Cranial nerves II-XII grossly intact, Motor Exam 5/5 strength throughout Psych/Mental Status: Normal Affect, Appropriate, Alert and oriented to time, place, person, mood and affect Laboratory Results 12/02/19 07:16: POC Glucose 108 12/02/19 12:11: POC Glucose 162 H Clinical Impression(s) from Imaging Studies Hip/Pelvis X-Ray 12/02/19 07:00 IMPRESSION: Intraoperative imaging provided for right total hip replacement. Electronically Signed: Murali Roscoe, at 12:52 EDT , Service support , Hip X-Ray 12/02/19 07:28 IMPRESSION: Status post right total hip replacement. There is good alignment. Postoperative soft tissue changes. Electronically Signed: Murali Malhotra, at 12:43 EDT , Service support , Current Medications Acetaminophen (Tylenol) 1,000 mg PO Q8 [facility] Last Admin: 12/02/19 15:22 Dose: 1,000 mg Documented by: Aspirin (Aspirin, Baby) 81 mg PO BID [facility] Calcium Carbonate (Os-Benito 500) 500 mg PO DAILY@0800 [facility] Last Admin: 12/02/19 14:00 Dose: Not Given Documented by: Enteral Nutritional Formula (Ensure Surgery) 237 ml PO TIDCM [facility] Famotidine (Pepcid) 20 mg PO DAILY [facility] Lactated Ringer's () 1,000 mls @ 125 mls/hr IV .Q8H [facility] Cefazolin Sodium () 1 gm in 50 mls @ 150 mls/hr IV Q8H [facility] Stop: 12/02/19 23:19 Last Admin: 12/02/19 15:22 Dose: 150 mls/hr Documented by: Insulin Human Lispro (Humalog Kwikpen (Bkc)) 0 unit SC ACHS [facility]; Protocol Ketorolac Tromethamine (Toradol (Bkc)) 15 mg IV Q6H PRN PRN PRN Reason: Pain Score 1-5/10 [facility]) [facility] Metformin HCl (Glucophage) 500 mg PO DAILY@0800 [facility] Metoprolol Succinate (Toprol Xl (Beta Glenys)) 50 mg PO DAILY [facility] Morphine Sulfate () 2 - 4 mg IV Q2H PRN PRN PRN Reason: Pain Score 4-10/10 Morphine Sulfate () 0 mg IV Q2H PRN PRN PRN Reason: PAIN SCORE 4-10/10 Ondansetron HCl (Zofran) 4 mg IV Q8H PRN PRN PRN Reason: NAUSEA Oxycodone HCl (Oxyir) 5 - 10 mg PO Q4H PRN PRN PRN Reason: Pain Score 4-10/10 Promethazine HCl (Phenergan) 12.5 mg IM Q6H PRN PRN; Protocol PRN Reason: NAUSEA/VOMITING Senna/Docusate Sodium (Senokot-S, Faby-Colace) 2 tablet PO BID [facility] Sodium Chloride () 10 - 40 ml IV UD PRN PRN Reason: SALINE FLUSH Assessment/Plan All Active Problems (Last Reviewed 11/03/19 @ 11:[address] Ac Hubbard MD) Status post right hip replacement (Acute) This is a 69 years old female patient underwent elective right direct anterior hip replacement for right hip osteoarthritis today and I am seeing this patient for consultation for postoperative medical management. #1 status post right minimally invasive direct anterior hip replacement: This was done for right hip osteoarthritis, postoperative day 0. At this time, she has no pain. Her vital signs are stable. Preoperative CBC, BMP, EKG and stress test reviewed as above. She is on IV cefazolin for perioperative prophylaxis. She is on IV morphine and OxyIR PRN for pain. CBC and BMP was ordered for tomorrow. Orthopedic surgery is managing. #2 type 2 diabetes mellitus: Controlled, hemoglobin A1c was 6.2% on October,. Plan to continue metformin, start Accu-Cheks q. before meals at bedtime, insulin sliding scale. #3 hypertension: Blood pressure stable, continue metoprolol. #4 paroxysmal atrial fibrillation: She is in sinus rhythm, rate is controlled. Continue metoprolol for rate control, she is not on anticoagulation. #5 DVT prophylaxis: She is on aspirin twice daily. This note was generated with [employer] software. It may contain incorrect words, spelling, and punctuation that were not noted in checking the note before signing. Inpatient E&M: 86471 Init Hosp L2
[2019-12-02 15:56] LABS: Bedside Glucose 148 mg/dL (70-110)
[2019-12-02] MEDS: Lactated Ringers 1,000 ML 100 ML IV (15:57)
[2019-12-02] MEDS: Ensure Surgery 237 ML LIQUID PO (17:09)
[2019-12-02] MEDS: Insulin Lispro 100 UNIT/ML INSULN.PEN SC (22:12)
[2019-12-02] MEDS: Aspirin 81 MG TAB.CHEW PO (22:12)
[2019-12-02] MEDS: Senna/Docusate Sodium 1 Tablet 2 TABLET PO (22:12)
[2019-12-02 23:10] LABS: Bedside Glucose 159 mg/dL (70-110)
[2019-12-03 02:13] VITALS: BP 109/58; PULSE 73; RESP 16; TEMP 36.9; O2SAT 100
[2019-12-03 05:35] LABS: Hematocrit 37.6 % (37-47); Hemoglobin 12.4 g/dL (12.0-15.0); Mean Corpuscular Hgb 31.2 pg (27.0-32.0); Mean Corpuscular Volume 94.5 fL (81-99); Platelet Count 181 K/mm3 (150-450); RBC Distribution Width CV 12.8 % (11.6-14.6); RBC Distribution Width SD 44.5 fl (35.1-43.9); Red Blood Count 3.98 M/mm3 (4.2-5.4); White Blood Count 12.8 K/mm3 (4.4-11.0)
[2019-12-03 05:56] LABS: Anion Gap 8 (5-15); BUN 20 mg/dL (7-18); BUN/Creat Ratio 26.7 RATIO (10-20); Calcium,Total 8.9 mg/dL (8.5-10.1); Chloride 108 mmol/L (98-107); Creatinine, Serum 0.75 mg/dL (0.55-1.02); EST Glomerular Filtration Rate 81 mL/min (>60); Est Glom Filt Rate - Afr Amer 98 mL/min (>60); Estimated Creatinine Clearance 82.03 ml/min; Glucose 122 mg/dL (74-106); Potassium 4.1 mmol/L (3.5-5.1); Sodium Level 141 mmol/L (136-145)
[2019-12-03] MEDS: Acetaminophen 500 MG Tablet 1000 MG PO ×2 (07:01→13:34)
[2019-12-03 07:11] LABS: Bedside Glucose 120 mg/dL (70-110)
--- NOTE | 2019-12-03 07:41 | PCM.PN.HOSP ---
Patient Problems: Active and Suspected Problems (Last Reviewed 11/03/19 @ 11:[address] Ac Hubbard MD) Status post right hip replacement (Acute) Reason for Visit: Follow-up on right hip replacement Subjective: Patient was seen and examined. She denied any new complaints. Her blood pressures have been running low this morning. Has mild dizziness when she exerts, no chest pain or shortness of breath. Objective: Physical exam: General: Alert, Oriented x3, Cooperative, No apparent distress HEENT: Atraumatic, PERRLA, EOMI, Normocephalic Oral: Moist Mucosa, No Gingival or Mucosal Lesions/ Ulcerations Neck: Supple, No JVD, Negative Carotid Bruits, Trachea Midline, Thyroid Normal Size and Texture Lungs: Clear to auscultation, Normal air movement, No rhonchi, No wheeze, No rales Cardiovascular: Regular rate, Regular Rhythm, Normal S1, Normal S2, PMI Normal Abdomen: Bowel Sounds Present, Soft, Non Tender, Non-Distended, No Hepato-splenomegaly, Obese Extremities: No clubbing, No cyanosis, Edema - Nonpitting edema. Skin: No rashes, No breakdown Lymphatic: No Cervical, Supraclavicular, or Inguinal Adenopathy Neurological: Cranial nerves II-XII grossly intact, Motor Exam 5/5 strength throughout Psych/Mental Status: Normal Affect, Appropriate, Alert and oriented to time, place, person, mood and affect Vitals/I&O's: Vital Signs Temp Pulse Resp BP Pulse Ox 98.4 F 73 16 109/58 L 100 12/03/19 02:13 12/03/19 02:13 12/03/19 02:13 12/03/19 02:13 12/03/19 02:13 Oxygen Flow Rate (L/min) 2 Oxygen Delivery Method Nasal Cannula Weight: 100.7 kg Body Mass Index (BMI) 44.7 Finger Stick Blood Glucose 168 Intake and Output for Last 24 Hours 12/01/19 12/02/19 12/03/19 23:59 23:59 23:59 Intake Total 4410 / 4410 1600 / 1600 Output Total 2600 / 2600 750 / 750 Balance 1810 / 1810 850 / 850 Laboratory Results 12/02/19 12:11: POC Glucose 162 H 12/02/19 15:53: POC Glucose 148 H 12/02/19 22:03: POC Glucose 159 H 12/03/19 05:09: WBC 12.8 H, RBC 3.98 L, Hgb 12.4, Hct 37.6, MCV 94.5, MCH 31.2, MCHC 33.0, RDW Std Deviation 44.5 H, RDW Coeff of Yovany 12.8, Plt Count 181, MPV 11.0 12/03/19 05:09: Sodium 141, Potassium 4.1, Chloride 108 H, Carbon Dioxide 25.0, Anion Gap 8, BUN 20 H, Creatinine 0.75, Estim Creat Clear Calc 82.03, Est GFR (MDRD) Af Amer 98, Est GFR (MDRD) Non-Af 81, BUN/Creatinine Ratio 26.7 H, Glucose 122 H, Calcium 8.9 12/03/19 07:00: POC Glucose 120 H Current Medications Acetaminophen (Tylenol) 1,000 mg PO Q8 [facility] Last Admin: 12/03/19 07:01 Dose: 1,000 mg Documented by: Aspirin (Aspirin, Baby) 81 mg PO BID [facility] Last Admin: 12/02/19 22:12 Dose: 81 mg Documented by: Calcium Carbonate (Os-Benito 500) 500 mg PO DAILY@0800 [facility] Last Admin: 12/02/19 14:00 Dose: Not Given Documented by: Enteral Nutritional Formula (Ensure Surgery) 237 ml PO TIDCM [facility] Last Admin: 12/02/19 17:09 Dose: 237 ml Documented by: Famotidine (Pepcid) 20 mg PO DAILY [facility] Insulin Human Lispro (Humalog Kwikpen (Bkc)) 0 unit SC [facility]; Protocol Last Admin: 12/03/19 07:01 Dose: Not Given Documented by: Ketorolac Tromethamine (Toradol (Bkc)) 15 mg IV Q6H PRN PRN PRN Reason: Pain Score 1-5/10 [facility] ([facility]) [facility] Metformin HCl (Glucophage) 500 mg PO DAILY@0800 [facility] Metoprolol Succinate (Toprol Xl (Beta Glenys)) 50 mg PO DAILY [facility] Morphine Sulfate () 2 - 4 mg IV Q2H PRN PRN PRN Reason: Pain Score 4-10/10 Morphine Sulfate () 0 mg IV Q2H PRN PRN PRN Reason: PAIN SCORE 4-10/10 Ondansetron HCl (Zofran) 4 mg IV Q8H PRN PRN PRN Reason: NAUSEA Oxycodone HCl (Oxyir) 5 - 10 mg PO Q4H PRN PRN PRN Reason: Pain Score 4-10/10 Promethazine HCl (Phenergan) 12.5 mg IM Q6H PRN PRN; Protocol PRN Reason: NAUSEA/VOMITING Senna/Docusate Sodium (Senokot-S, Faby-Colace) 2 tablet PO BID [facility] Last Admin: 12/02/19 22:12 Dose: 2 tablet Documented by: Sodium Chloride () 10 - 40 ml IV UD PRN PRN Reason: SALINE FLUSH Medical Necessity - Tobacco Use Smoking Status: Never smoker Tobacco Use: Non-smoker Assessment/Plan All Active Problems (Last Reviewed 11/03/19 @ 11:[address] Ac Hubbard MD) Status post right hip replacement (Acute) 69-year-old female who comes in for elective right direct anterior hip replacement for right hip osteoarthritis. 1. POD#11 status post minimally invasive direct anterior hip replacement, pain is fairly controlled, stable vitals 2. Hypertension, blood pressure slightly low, not orthostatic, Recommend metoprolol 25 mg p.o. daily Daily blood pressure checks, discussed log of BP readings with primary care doctor/garnetter in 1 week Discussed with patient and orthopedic team 3. Type II DM, BS are fairly controlled, continue on metformin 4. Paroxysmal atrial fibrillation, in NSR, continue on metoprolol, aspirin 5. DVT prophylaxis: On aspirin twice daily Inpatient E&M: 66266 [facility] Hosp L2
[2019-12-03] MEDS: Ensure Surgery 237 ML LIQUID PO ×2 (07:52→11:25)
[2019-12-03] MEDS: Calcium (Elemental) 500 MG Tablet PO (07:52)
[2019-12-03] MEDS: Aspirin 81 MG TAB.CHEW PO (07:53)
[2019-12-03] MEDS: Famotidine 20 MG Tablet PO (07:53)
[2019-12-03] MEDS: Senna/Docusate Sodium 1 Tablet 2 TABLET PO (07:53)
[2019-12-03] MEDS: metFORMIN HCl 500 MG Tablet PO (07:54)
[2019-12-03 07:57] VITALS: PULSE 80
[2019-12-03] MEDS: Metoprolol(XL)Succ 50 MG Tablet PO (07:57)
--- NOTE | 2019-12-03 08:06 | PCM.PN.ORT ---
Patient Problems: Active and Suspected Problems (Last Reviewed 11/03/19 @ 11:[address] Ac Hubbard MD) Status post right hip replacement (Acute) Subjective: The patient was sitting in bedside chair upon examination. Patient denies any chest pain, shortness of breath, dizziness, lightheadedness, nausea or vomiting, or calf pain. Pain is controlled on medications, patient is only required Tylenol for pain control. No adverse overnight events. Patient is wishing to try to go home today. Objective: Vital signs stable and afebrile. Patient has had some lower blood pressure readings but currently is asymptomatic with no dizziness, lightheadedness. Other vitals are within normal limits. Patient is able to plantarflex and dorsiflex actively. Sensation is intact to light touch to saphenous, sural, superficial and deep peroneal, and tibial distribution. Dressing is clean dry and intact. Negative Homans bilaterally, negative signs and symptoms of DVT. - Physical Exam Vitals/I&O's: Vital Signs Temp Pulse Resp BP Pulse Ox 98.4 F 80 16 109/58 L 100 12/03/19 02:13 12/03/19 07:57 12/03/19 02:13 12/03/19 02:13 12/03/19 02:13 Oxygen Flow Rate (L/min) 2 Oxygen Delivery Method Nasal Cannula Weight: 100.7 kg Body Mass Index (BMI) 44.7 Finger Stick Blood Glucose 168 Intake and Output for Last 24 Hours 12/01/19 12/02/19 12/03/19 23:59 23:59 23:59 Intake Total 4410 / 4410 1600 / 1600 Output Total 2600 / 2600 750 / 750 Balance 1810 / 1810 850 / 850 General: Alert, Oriented x3, Cooperative, No apparent distress Laboratory Results 12/02/19 12:11: POC Glucose 162 H 12/02/19 15:53: POC Glucose 148 H 12/02/19 22:03: POC Glucose 159 H 12/03/19 05:09: WBC 12.8 H, RBC 3.98 L, Hgb 12.4, Hct 37.6, MCV 94.5, MCH 31.2, MCHC 33.0, RDW Std Deviation 44.5 H, RDW Coeff of Yovany 12.8, Plt Count 181, MPV 11.0 12/03/19 05:09: Sodium 141, Potassium 4.1, Chloride 108 H, Carbon Dioxide 25.0, Anion Gap 8, BUN 20 H, Creatinine 0.75, Estim Creat Clear Calc 82.03, Est GFR (MDRD) Af Amer 98, Est GFR (MDRD) Non-Af 81, BUN/Creatinine Ratio 26.7 H, Glucose 122 H, Calcium 8.9 12/03/19 07:00: POC Glucose 120 H Current Medications Acetaminophen (Tylenol) 1,000 mg PO Q8 [facility] Last Admin: 12/03/19 07:01 Dose: 1,000 mg Documented by: Aspirin (Aspirin, Baby) 81 mg PO BID [facility] Last Admin: 12/03/19 07:53 Dose: 81 mg Documented by: Calcium Carbonate (Os-Benito 500) 500 mg PO DAILY@0800 [facility] Last Admin: 12/03/19 07:52 Dose: 500 mg Documented by: Enteral Nutritional Formula (Ensure Surgery) 237 ml PO TIDCM [facility] Last Admin: 12/03/19 07:52 Dose: 237 ml Documented by: Famotidine (Pepcid) 20 mg PO DAILY [facility] Last Admin: 12/03/19 07:53 Dose: 20 mg Documented by: Insulin Human Lispro (Humalog Kwikpen (Bkc)) 0 unit SC [facility]; Protocol Last Admin: 12/03/19 07:01 Dose: Not Given Documented by: Ketorolac Tromethamine (Toradol (Bkc)) 15 mg IV Q6H PRN PRN PRN Reason: Pain Score 1-5/10 [facility] Metformin HCl (Glucophage) 500 mg PO DAILY@0800 [facility] Last Admin: 12/03/19 07:54 Dose: 500 mg Documented by: Metoprolol Succinate (Toprol Xl (Beta Glenys)) 50 mg PO DAILY [facility] Last Admin: 12/03/19 07:57 Dose: 50 mg Documented by: Morphine Sulfate () 2 - 4 mg IV Q2H PRN PRN PRN Reason: Pain Score 4-10/10 Morphine Sulfate () 0 mg IV Q2H PRN PRN PRN Reason: PAIN SCORE 4-10/10 Ondansetron HCl (Zofran) 4 mg IV Q8H PRN PRN PRN Reason: NAUSEA Oxycodone HCl (Oxyir) 5 - 10 mg PO Q4H PRN PRN PRN Reason: Pain Score 4-10/10 Promethazine HCl (Phenergan) 12.5 mg IM Q6H PRN PRN; Protocol PRN Reason: NAUSEA/VOMITING Senna/Docusate Sodium (Senokot-S, Faby-Colace) 2 tablet PO BID [facility] Last Admin: 12/03/19 07:53 Dose: 2 tablet Documented by: Sodium Chloride () 10 - 40 ml IV UD PRN PRN Reason: SALINE FLUSH Medical Necessity - Tobacco Use Smoking Status: Never smoker Tobacco Use: Non-smoker Assessment/Plan All Active Problems (Last Reviewed 11/03/19 @ 11:[address] Ac Hubbard MD) Status post right hip replacement (Acute) 1. S/P right direct anterior total hip arthroplasty POD #1 2. Continue Pain Medications: Tylenol, meloxicam, oxycodone as needed 3. DVT Prophylaxis: Take 81 mg aspirin twice daily for 4 weeks postoperatively for DVT prophylaxis 4. PT/OT: Weightbearing as tolerated with walker 5. H & H: 12.4/37.6, asymptomatic 6. Reactive leukocytosis: Currently 12.8, afebrile. Patient did receive Decadron intraoperatively 7. Continue postoperative medical management per medicine: case was discussed with Dr. Love, will order orthostatic vitals. Plan for possible discharge today pending results. 8. Encouraged Incentive Spirometry 9. Disposition: Plan will be for possible discharge home today if cleared by medicine. Plan will be for patient to get physical therapy this morning and be discharged to try to limit the amount of time in the hospital. Prescriptions will be E scribed to [facility]. I will print the oxycodone prescription and she will only fill if needed. Currently her pain is been well controlled on Tylenol. Patient will follow-up per postop instructions. She will begin outpatient physical therapy on Saturday, December 07, 2019. Patient will follow-up as scheduled for 2-week follow-up with [facility]. I have reviewed the [place] Automated Rx Reporting System (OARRS) report for this patient for refill pattern and other prescriber involvement as part of the appropriate surveillance for the provision of acute and chronic controlled medications. The report was requested and reviewed on the date of this entry and was considered in the prescribing process.
[2019-12-03 08:09] VITALS: BP 104/46; PULSE 86; RESP 18; TEMP 36.8; O2SAT 99
--- NOTE | 2019-12-03 08:39 | PCM.DC.THR ---
Discharge Diet: No Restrictions Discharge Activity: May Not Drive - while taking narcotic pain medications. May shower in (days): 1 - Turn dressing away from water. Dressing must be intact to skin Ice area for (Minutes): 20 - Every 1-2 hours while awake Weight Bearing Status: Weight bearing as tolerated - With walker Elevate: Operative Extremity Additional Activity Instructions:: Wear elastic stockings for 2 weeks. DO NOT use alcohol with narcotic pain medication. DO NOT make important decisions while taking narcotic medication. If you have problems with taking your medication (rash, itching, nausea, etc.) call the office at once. Call your doctor if your incision/area has: Increased Pain/ Swelling, Increased Redness, Foul Smelling Discharge Call your doctor if you observe: Fever of 101 or Higher Remove Dressing in (days):: 4 - Okay to remove dressing on December 07, 2019 Additional Instructions: Follow orthopedic postop instructions After dressing has been removed over the incision, please place washcloth or gauze pad between skin and incision to prevent skin breakdown at the incision. Allergies/Adverse Reactions: Allergies atorvastatin [From Lipitor] Allergy (Intermediate, Verified 12/02/19 07:14) Rash Medications to take at Discharge metformin 500 mg tablet 500 mg PO QDAY tab 10/25/17 calcium carbonate 500 mg calcium (1,250 mg) tablet 500 mg PO DAILY tab 01/05/19 Metoprolol Succinate 50 mg PO DAILY 11/20/19 Acetaminophen [Tylenol] 1,000 mg PO Q8 #100 tab 12/03/19 Aspirin [Aspirin, Baby] 81 mg PO BID 30 Days tab 12/03/19 Famotidine [Pepcid] 20 mg PO DAILY #30 tab 12/03/19 Meloxicam [Mobic] 7.5 mg PO BIDCM #60 tablet 12/03/19 Oxycodone [Oxyir] 5 - 10 mg PO Q4H PRN PRN 3 Days #30 tab 12/03/19 Senna/Docusate Sodium [Senokot-S] 2 tab PO BID #10 tab 12/03/19 The following prescriptions were given: Oxycodone [Oxyir] 5 - 10 mg PO Q4H PRN PRN 3 Days #30 tab PRN Reason: Pain Score 4-1010 Prescription Printed Famotidine [Pepcid] 20 mg PO DAILY #30 tab Transmission Status: Pending to [facility] Senna/Docusate Sodium [Senokot-S] 2 tab PO BID #10 tab Transmission Status: Pending to [facility] Acetaminophen [Tylenol] 1,000 mg PO Q8 #100 tab Transmission Status: Pending to [facility] Primary Care Physician: Marleny Camacho MD [Primary Care Provider] - Test Results: Test results from this visit will be discussed in further detail at your follow-up appointment, if applicable. Please Follow Up With: Onsite Physical Therapy When: 12/07/19 Please Follow Up With: Sergio Torres PA-C When: 12/16/19 @ 9:30 am
--- NOTE | 2019-12-03 10:05 | CASEMGMT ---
STORM CM Face to Face with patient for initial transition planning/care coordination assessment. RN CM introduced self and role at [facility]. Patient sitting in chair, alert and oriented. Patient willing to participate in assessment and is able to answer all questions appropriately. Care providers, pharmacy, and demographics verified. Patient wishes to discharge home and is setup with On-site outpatient therapy in [place]. Patient states she has no further needs or concerns at this time. CM to follow for discharge planning needs that may arise. PCP: Doug Specialists: Haydee branch examiner; lora Barney Preferred Pharmacy: Kenneth getting filled at [facility]. Insurance: [employer] Prescription Benefit: yes Living Will/HPOA: yes, Anibal Regalado LNOK: Living Arrangements: Patient lives with in 2 story house. Patient able to ambulate stairs. Patient states she is independent prior to surgery. Transportation: DME/HHC: Patient states she has shower chair, walker, and cane. Patient is setup for outpatient therapy beginning Saturday. Disposition Plan: Patient to discharge home with outpatient therapy, family support, and follow-up plans in place. Ene SWAN, RN, CM
[2019-12-03 10:28] VITALS: BP 84/45; BP 86/49; BP 91/44; PULSE 86; PULSE 91
--- NOTE | 2019-12-03 11:10 | CASEMGMT ---
JUNG form completed with patient at this time. STORM PITTMAN reviewed JUNG form with patient. Patient voiced understanding and had no questions or concerns at this time. Copy of signed form given to patient, original placed in chart.
[2019-12-03 11:35] LABS: Bedside Glucose 123 mg/dL (70-110)
[2019-12-03] MEDS: oxyCODONE 5 MG Tablet PO (13:34)
== END 2019-12-03 14:08 | disposition home or self-care (01) ==
LOC: MS3 13:24 → SDC 13:37 → MS3 13:37
PROVIDERS: Admitting Provider Specialist; PCP Internal Medicine; Referring Provider Specialist; Visit Provider Internal Medicine
PROC: (CPT 27284; principal; 2019-12-02 08:35)
DX: M16.11 Unilateral primary osteoarthritis, right hip (principal); E11.9 Type 2 diabetes mellitus without complications; I47.1 Supraventricular tachycardia; I45.10 Unspecified right bundle-branch block; I10 Essential (primary) hypertension; D75.1 Secondary polycythemia; E78.00 Pure hypercholesterolemia, unspecified; Z68.41 Body mass index [BMI] 40.0-44.9, adult; Z79.899 Other long term (current) drug therapy; Z79.84 Long term (current) use of oral hypoglycemic drugs; Z79.82 Long term (current) use of aspirin; I48.0 Paroxysmal atrial fibrillation; E66.01 Morbid (severe) obesity due to excess calories
CPT/HCPCS: 27130; 36415; 73501; 73502; 76000; 80048; 82962; 83036; 85025; 85027; 88305; 88311; 93005; 96361; 96365; 96366; 97110; 97116; 97162; 97166; 97530; 97535; 99218; 99251; C1776; J7040; J7120; G0378; G0379; G0463; J2405

== ENCOUNTER → 2020-04-19 10:32 | Outpatient (CLI) | payer MEDICARE, SELFPAY ==
[2019-12-02 13:55] VITALS: BMI 44.7
--- NOTE | 2020-04-19 10:33 | BI_ITS ---
MAMMOGRAPHY - BILATERAL SCREENING REASON FOR EXAM: Female, 69 years old. Routine annual screening examination. PERTINENT HISTORY: Mother with breast cancer. Grandmother with breast cancer. History of prior left stereotactic breast biopsies. TECHNIQUE: Digital bilateral breast antonio (3D mammographic acquisition) in the CC and MLO projections. 2-D mediolateral oblique (MLO) and craniocaudad (CC) views of both breasts were obtained. CAD: Full Field Digital Mammography with Computer Added Detection was performed. COMPARISON: Comparison is made with prior study dated 04/15/2019 and 08/15/2018. FINDINGS: Breast Composition: There are scattered areas of fibroglandular density. There are no dominant masses or suspicious calcifications. A tissue clip marker is once again seen in the central medial aspect of the left breast. This measures 1.2 cm. There has been further decrease in size as compared to prior study. Stable benign-appearing bilateral axillary lymph nodes. No other significant abnormalities are identified. There has been no significant change since the prior study. BI/SCREEN MAMM (CAD) W/ANTONIO BILAT IMPRESSION: Stable bilateral screening mammogram. Yearly follow-up mammogram recommended. (A) ASSESSMENT CATEGORY: BIRADS Category 2: Benign. A letter regarding these results will be sent to the patient by the facility within 30 days. Approximately 10% of breast cancers are not detected by mammography. A normal mammogram should not delay biopsy of a clinically suspicious abnormality. [id number] Electronically Signed: Murali Malhotra, at 12:17 EDT , Service support ,
== END ==
PROVIDERS: PCP Internal Medicine; Referring Provider Surgery; Visit Provider Surgery
DX: Z12.31 Encounter for screening mammogram for malignant neoplasm of breast (principal); Z80.3 Family history of malignant neoplasm of breast
CPT/HCPCS: 77063; 77067

== ENCOUNTER → 2020-05-19 17:27 | Outpatient (CLI) | payer MEDICARE, SELFPAY ==
[2020-04-26 09:30] VITALS: BMI 44.7
== END ==
PROVIDERS: PCP Internal Medicine; Referring Provider Registered Nurse; Visit Provider Registered Nurse
DX: U07.1 COVID-19 (principal)
CPT/HCPCS: 87635; C9803; U0003

== ENCOUNTER → 2021-04-20 09:55 | Outpatient (CLI) | payer MEDICARE, SELFPAY ==
[2020-11-03 11:13] VITALS: BMI 45.1
--- NOTE | 2021-04-20 09:57 | BI_ITS ---
MAMMOGRAPHY - BILATERAL SCREENING REASON FOR EXAM: Female, 70 years old. Routine annual screening examination. PERTINENT HISTORY: Mother with breast cancer. Grandmother with breast cancer. Prior left stereotactic breast biopsies. TECHNIQUE: Digital bilateral breast antonio (3D mammographic acquisition) in the CC and MLO projections. 2-D mediolateral oblique (MLO) and craniocaudad (CC) views of both breasts were obtained. CAD: Full Field Digital Mammography with Computer Added Detection was performed. COMPARISON: Comparison is made with prior study dated 04/19/2020 and 04/15/2019. FINDINGS: Breast Composition: There are scattered areas of fibroglandular density. There are no dominant masses or suspicious calcifications. Again, a tissue clip marker is seen in the central medial aspect of the left breast. The nodular density has decreased in size as compared to prior study. Stable benign-appearing bilateral axillary. No other significant abnormalities are identified. There has been no significant change since the prior study. BI/SCRN MAMM (CAD)W/ANTONIO BILAT IMPRESSION: Stable bilateral screening mammogram. Yearly follow-up mammogram recommended. (A) ASSESSMENT CATEGORY: BIRADS Category 2: Benign. A letter regarding these results will be sent to the patient by the facility within 30 days. Approximately 10% of breast cancers are not detected by mammography. A normal mammogram should not delay biopsy of a clinically suspicious abnormality. [id number] Electronically Signed: Murali Malhotra MD at 11:09 EDT , Service support ,
== END ==
PROVIDERS: PCP Internal Medicine; Referring Provider Internal Medicine; Visit Provider Internal Medicine
DX: Z12.31 Encounter for screening mammogram for malignant neoplasm of breast (principal); Z80.3 Family history of malignant neoplasm of breast
CPT/HCPCS: 77063; 77067

== ENCOUNTER → 2021-12-01 | Outpatient (CLI) | payer MEDICARE, SELFPAY ==
--- NOTE | 2021-12-01 13:53 | ECHOCS_ITS ---
Reason For Study: MURMUR Procedure This was a 2D Doppler, Color Flow transthoracic echocardiogram. The study was technically difficult. Exam performed in department. Left Ventricle Normal LV size. Left ventricular systolic function is normal. The estimated ejection fraction is 60 %. No regional wall motion abnormalities noted. Right Ventricle Normal RV size. Normal systolic function. Atria Normal left atrium. Normal right atrium. Mitral Valve Normal mitral valve. Tricuspid Valve Normal tricuspid valve. Aortic Valve Trisinus/trileaflet aortic valve. Moderate focal aortic valve calcification. Peak aortic valve gradient 54 mmHg. Mean aortic valve gradient 32 mmHg. Moderate aortic stenosis. Mild (1+) aortic valve insufficiency. Pulmonic Valve Normal pulmonic valve. Great Vessels Normal aortic root. The pulmonary artery is normal size. Normal inferior vena cava. Pericardium/Pleural No pericardial effusion. Medication 22 gauge I.V. with prn adaptor inserted into right arm. Diluted definity 2.5ml given slow IV push to enhance endocardial definition. MMode/2D Measurements & Calculations LVIDd: 3.4 cm IVSd: 1.5 cm LVOT diam: 2.0 cm LVIDs: 1.7 cm LVPWd: 1.0 cm FS: 51.1 % LVOT area: 3.0 cm2 Ao root diam: 3.1 cm LAV(MOD-bp): 46.4 ml LVAd ap4: 24.9 cm2 LAV(MOD-bp) Indexed: 25.4 ml/m2 LVLd ap4: 6.9 cm LAV(MOD-sp2): 37.3 ml EDV(MOD-sp4): 72.8 ml LAV(MOD-sp4): 54.9 ml EDV(sp4-el): 76.2 ml LVAs ap4: 15.1 cm2 LVLs ap4: 6.8 cm ESV(MOD-sp4): 28.1 ml ESV(sp4-el): 28.3 ml EF(MOD-sp4): 61.4 % EF(sp4-el): 62.9 % LVAd ap2: 23.9 cm2 SV(MOD-sp4): 44.7 ml SV(MOD-sp2): 39.4 ml LVLd ap2: 7.2 cm EDV(MOD-sp2): 64.6 ml EDV(sp2-el): 67.0 ml LVAs ap2: 12.8 cm2 LVLs ap2: 5.5 cm ESV(MOD-sp2): 25.3 ml ESV(sp2-el): 25.2 ml EF(MOD-sp2): 60.9 % SV(sp4-el): 47.9 ml RA A4 area: 15.4 cm2 Doppler Measurements & Calculations MV E max alcides: 109.0 cm/sec Lat Peak E' Alcides: 8.4 cm/sec Med Peak E' Alcides: 7.7 cm/sec E/E' lat: 13.0 E/E' med: 14.2 Ao V2 max: 368.3 cm/sec AI max alcides: 419.6 cm/sec LV V1 max: 133.9 cm/sec Ao max P.3 mmHg AI max P.4 mmHg LV V1 max P.2 mmHg Ao V2 mean: 265.8 cm/sec AI dec slope: 383.0 cm/sec2 LV V1 mean P.6 mmHg Ao mean P.0 mmHg AI P1/2t: 320.9 msec LV V1 mean: 88.2 cm/sec Ao V2 VTI: 78.2 cm LV V1 VTI: 28.1 cm BENITA(I,D): 1.1 cm2 BENITA(V,D): 1.1 cm2 SV(LVOT): 85.1 ml PA V2 max: 119.2 cm/sec ECHO/Echo Complete W/ Contrast Interpretation Summary Normal LV size. Left ventricular systolic function is normal. The estimated ejection fraction is 60 %. Moderate focal aortic valve calcification. Mean aortic valve gradient 32 mmHg. Moderate aortic stenosis. Mild (1+) aortic valve insufficiency. Ordering Physician: Celia Calles Referring Physician: Celia Calles Performed By: Blanche Guerrier RCS
== END | disposition home or self-care (01) ==
PROVIDERS: PCP Internal Medicine; Referring Provider Physician Assistant Medical; Visit Provider Physician Assistant Medical
DX: I35.0 Nonrheumatic aortic (valve) stenosis (principal); R01.1 Cardiac murmur, unspecified
CPT/HCPCS: 93306; Q9957; A4216; C8929

== ENCOUNTER → 2022-04-25 | Outpatient (CLI) | payer MEDICARE, SELFPAY ==
--- NOTE | 2022-04-25 10:56 | BI_ITS ---
MAMMOGRAPHY - BILATERAL SCREENING REASON FOR EXAM: Female, 71 years old. Routine annual screening examination. PERTINENT HISTORY: Mother with breast cancer. Grandmother with breast cancer. Prior left stereotactic breast biopsy. TECHNIQUE: Digital bilateral breast antonio (3D mammographic acquisition) in the CC and MLO projections. 2-D mediolateral oblique (MLO) and craniocaudad (CC) views of both breasts were obtained. CAD: Full Field Digital Mammography with Computer Added Detection was performed. COMPARISON: Comparison is made with prior study 04/20/2021 and 04/19/2020. FINDINGS: Breast Composition: There are scattered areas of fibroglandular density. There are no dominant masses or suspicious calcifications. A tissue clip marker is once again seen in the small nodular density in the central medial aspect of the left breast. Stable benign-appearing bilateral axillary lymph nodes. No other significant abnormalities are identified. There has been no significant change since the prior study. BI/SCRN MAMM (CAD)W/ANTONIO BILAT IMPRESSION: Stable bilateral screening mammogram. Yearly follow-up mammogram recommended. (A) ASSESSMENT CATEGORY: BIRADS Category 2: Benign. A letter regarding these results will be sent to the patient by the facility within 30 days. Approximately 10% of breast cancers are not detected by mammography. A normal mammogram should not delay biopsy of a clinically suspicious abnormality. [id number] Electronically Signed: Murali Malhotra MD at 12:18 EDT ,
== END | disposition home or self-care (01) ==
LOC: OPBI 10:54
PROVIDERS: PCP Internal Medicine; Referring Provider Internal Medicine; Visit Provider Internal Medicine
DX: Z12.31 Encounter for screening mammogram for malignant neoplasm of breast (principal); Z80.3 Family history of malignant neoplasm of breast
CPT/HCPCS: 77063; 77067

== ENCOUNTER → 2022-12-12 | Outpatient (CLI) | payer MEDICARE, SELFPAY ==
--- NOTE | 2022-12-12 | LES_PTH ---
PATIENT: LITO GONZALEZ LOC: [facility] U#:[id number] AGE/SX: 72/F ROOM: RE12/12/[address]: Dr. Honey Ford DPM : 1950 BED: DIS: 12/12/2022 SPEC #: [id number] RECD: 12/12/22 11:51 STATUS: AJ REYony #: [id number] OCNRADO: 12/12/22 00:[address]: Honey Ford DEPT: SURGICAL PATHOLOGY RECD BY: Hal Jean ENTERED: 12/13/22 11:52 SP TYPE: Lesion OTHR DR: Dr. Marleny Camacho MD Tissues: Skin, NOS Procedures: Surgery Specimen Level IV HEADER OPERATION: Skin biopsy PRE-OP DIAGNOSIS: B07.7 TISSUE SUBMITTED: Skin MICROSCOPIC DIAGNOSIS Right heel skin, biopsy: Consistent with verruca vulgaris. SJ:forrest 12/14/2022 COMMENT Case has been reviewed in consultation with Dr. Starkey who concurs with the above diagnosis. IDC:AM MICROSCOPIC DESCRIPTION Slides are reviewed. GROSS DESCRIPTION Received in fixative is one container labeled with the patient's name and designated right heel. The specimen consists of multiple pieces of marquez-white skin that in aggregate measure 1.5 x 1.0 x 0.3 cm. A few of the pieces show verrucous surfaces. The entire specimen is submitted in one cassette. / SJ:forrest 12/13/2022 TC:5 CPT: 13870
== END | disposition home or self-care (01) ==
LOC: LABSPEC 15:28
PROVIDERS: PCP Internal Medicine; Referring Provider Podiatrist; Visit Provider Podiatrist
DX: B07.0 Plantar wart (principal)
CPT/HCPCS: 88305

== ENCOUNTER → 2024-01-08 | Outpatient (CLI) | payer MEDICARE, SELFPAY ==
--- NOTE | 2024-01-08 12:41 | ECHOCS_ITS ---
Reason For Study: Murmur Procedure This was a 2D Doppler, Color Flow transthoracic echocardiogram. Contrast injection was performed. Exam performed in department. Left Ventricle Normal LV size. Left ventricular systolic function is normal. The estimated ejection fraction is 70 %. No regional wall motion abnormalities noted. Right Ventricle Normal RV size. Normal systolic function. Atria Normal left atrium. Normal right atrium. Mitral Valve Normal mitral valve. Tricuspid Valve Normal tricuspid valve. Aortic Valve Trisinus/trileaflet aortic valve. Moderate focal aortic valve calcification. Peak aortic valve gradient 85 mmHg. Mean aortic valve gradient 56 mmHg. Severe aortic stenosis. Mild (1+) aortic valve insufficiency. Pulmonic Valve Normal pulmonic valve. Great Vessels Normal aortic root. The pulmonary artery is normal size. Normal inferior vena cava. Pericardium/Pleural No pericardial effusion. Medication Diluted definity 2ml given slow IV push to enhance endocardial definition. MMode/2D Measurements & Calculations LVIDd: 4.6 cm IVSd: 0.99 cm LVOT diam: 1.9 cm LVIDs: 2.5 cm LVPWd: 1.0 cm RVDd: 3.1 cm FS: 45.0 % LVOT area: 2.7 cm2 Ao root diam: 3.5 cm LAV(MOD-bp): 41.4 ml LVAd ap4: 25.8 cm2 ACS: 0.72 cm LAV(MOD-bp) Indexed: 20.7 ml/m2 LVLd ap4: 7.4 cm LAV(MOD-sp2): 32.1 ml EDV(MOD-sp4): 73.8 ml LAV(MOD-sp4): 50.7 ml EDV(sp4-el): 76.4 ml LVAs ap4: 11.8 cm2 LVLs ap4: 6.4 cm ESV(MOD-sp4): 19.6 ml ESV(sp4-el): 18.3 ml EF(MOD-sp4): 73.5 % EF(sp4-el): 76.0 % SV(MOD-sp4): 54.2 ml SV(sp4-el): 58.1 ml LA A4 area: 17.9 cm2 LA dimension(2D): 4.1 cm RA A4 area: 10.4 cm2 TAPSE: 2.0 cm Time Measurements MV dec time: 0.31 sec Doppler Measurements & Calculations MV E max alcides: 118.2 cm/sec Lat Peak E' Alcides: 7.9 cm/sec Med Peak E' Alcides: 5.1 cm/sec MV A max alcides: 138.7 cm/sec E/E' lat: 14.9 E/E' med: 23.3 MV E/A: 0.85 MV V2 max: 158.0 cm/sec MV dec slope: 376.5 cm/sec2 Ao V2 max: 459.8 cm/sec MV max P.0 mmHg Ao max P.6 mmHg MV V2 mean: 108.1 cm/sec Ao V2 mean: 362.8 cm/sec MV mean P.2 mmHg Ao mean P.8 mmHg MV V2 VTI: 32.0 cm Ao V2 VTI: 96.8 cm MVA(VTI): 2.1 cm2 AV (velocity ratio): 0.26 BENITA(I,D): 0.70 cm2 BENITA(V,D): 0.70 cm2 AI max alcides: 378.6 cm/sec LV V1 max: 116.6 cm/sec SV(LVOT): 67.8 ml AI max P.3 mmHg LV V1 max P.4 mmHg LV V1 mean P.2 mmHg AI dec slope: 397.9 cm/sec2 LV V1 mean: 86.2 cm/sec AI P1/2t: 278.7 msec LV V1 VTI: 24.7 cm PA V2 max: 88.3 cm/sec ECHO/Echo Complete W/ Contrast Interpretation Summary Normal LV size. Left ventricular systolic function is normal. The estimated ejection fraction is 70 %. Moderate focal aortic valve calcification. Mean aortic valve gradient 56 mmHg. Mild (1+) aortic valve insufficiency. Severe aortic stenosis. Ordering Physician: Celia Calles Referring Physician: Marleny Camacho Performed By: Trini Guadalupe, MANGOCS, RVT
== END | disposition home or self-care (01) ==
LOC: CVS 12:37
PROVIDERS: PCP Internal Medicine; Referring Provider Physician Assistant Medical; Visit Provider Physician Assistant Medical
DX: I35.0 Nonrheumatic aortic (valve) stenosis (principal)
CPT/HCPCS: 93306; Q9957; A4216; C8929

== ENCOUNTER 2024-01-20 08:15 | Day surgery (SDC) | payer MEDICARE, SELFPAY ==
--- NOTE | 2024-01-14 12:21 | RAD_ITS ---
STUDY: X-RAY CHEST REASON FOR EXAM: Female, 73 years old. Aortic valve stenosis. TECHNIQUE: Frontal and lateral views of the chest. COMPARISON: September 16, 2015 FINDINGS: Mild hyperinflation. There is no demonstrated pleural abnormality. Normal size heart. Normal mediastinum and rebel. Normal visualized pulmonary arteries. Aortic tortuosity. Thoracic osteopenia with diffuse mild thoracic spondylosis and increased kyphosis. Normal visualized ribs, clavicles, and shoulders. No abnormality of the visualized soft tissue structures of the upper abdomen. RAD/Chest PA and Lateral IMPRESSION: Hyperinflation with no acute or active cardiopulmonary disease. Electronically Signed: Xiang Murillo MD at 12:51 EDT ,
[2024-01-14 13:01] LABS: Absolute Lymphocyte Count 2.49 X10^3/uL (0.83-4.51); Absolute Neutrophil Count 4.3 X10^3/uL (2.0-7.7); Basophil# 0.11 X10^3/uL; Basophil% 1.3 % (0-1); Eosinophil# 0.46 X10^3/uL; Eosinophils% 5.5 % (0-5); Hematocrit 43.6 % (37-47); Hemoglobin 13.9 g/dL (12.0-15.0); Lymphocyte # 2.49 X10^3/ul (0.83-4.51); Lymphocyte % 29.6 % (19-41); Mean Corp Hgb Conc 31.9 g/dL (32-36); Mean Corpuscular Hgb 30.8 pg (27.0-32.0); Mean Corpuscular Volume 96.5 fL (81-99); Mean Platelet Vol. 12.1 fl (6.2-12.0); Monocyte# 0.98 X10^3/uL; Monocyte% 11.7 % (0-10); NRBC Flagged by Analyzer 0 % (0-5); Neutrophil # 4.33 X10^3/uL (2.7-7.7); Neutrophil % 51.5 % (47-70); Platelet Count 155 K/mm3 (150-450); RBC Distribution Width CV 13.2 % (11.6-14.6); Red Blood Count 4.52 M/mm3 (4.2-5.4); White Blood Count 8.4 K/mm3 (4.4-11.0)
--- NOTE | 2024-01-14 13:11 | PCM.HP.BLA ---
History and Physical Date of Admission: 01/20/24 Jennifer Regalado is a 73 year old female who presents here today for a cardiac catheterization. She has a history of hypertension, supraventricular tachyarrhythmia, paroxysmal atrial fibrillation, aortic sclerosis and stenosis. She does not have any chest discomfort/heaviness/tightness. She does not have any worsening symptoms of shortness of breath. She ambulates with a wheeled walker. She does not have any orthopnea. She denies PND. She does not have any symptoms of congestive heart failure. She does not have any palpitations that she is aware of. She does have positional dizziness. She does not have any near-syncope or syncope. She does not have any lower extremity edema. She does not have any symptoms of claudication. Intake Vital Signs See EMR Allergies See EMR Medications See EMR [facility] Medical History Abnormal mammogram of left breast Aortic valve calcification Arthritis Atrial fibrillation with rapid ventricular response (08/2015) COVID-19 virus detected (05/19/20) Diabetes Diabetes type 2, uncontrolled Diverticulitis DKA (diabetic ketoacidoses) Encephalopathy Essential (primary) hypertension Microcalcification of left breast on mammogram Morbid obesity Nonrheumatic aortic (valve) stenosis Obesity Right bundle branch block (RBBB) Sepsis Type 2 diabetes mellitus Surgical History history left breast stereotactic biopsy (02/10/18) History of appendectomy History of right hip replacement (12/02/19) History of total hysterectomy History of total left knee replacement (01/31/09) History of total right knee replacement (TKR) Family History Father COPD (chronic obstructive pulmonary disease) CAD (coronary artery disease)Mother Cancer Breast cancer Social History Smoking Status: Never smoker second hand exposure: No alcohol intake: never substance use type: does not use caffeine: No what type of physical activity do you participate in: none frequency: does not exercise seatbelt use: always ROS Const Const: Negative for fatigue, weakness, headache(s), frequent falls, difficulty sleeping or excessive sweating Eyes Eyes: Negative for loss of peripheral vision, transient loss of vision, blurry vision, double vision or tunnel vision ENT ENT: Negative for headache(s), dizziness, Nosebleed/epistaxis or balance problems Cardio Chest Pain: No Palpitations: No Edema: Right Muscle aches with walking: None Resp Respiratory: Negative for SOB with activity, SOB at rest, SOB orthopnea\SOB lying down, Cough or paroxysmal nocturnal dyspnea GI GI: Negative nausea, vomiting or heartburn : Negative for hematuria Musc Musc: Negative for muscle aches/ myalgia, muscle weakness, joint pain or balance problems Skin Skin: Negative non-healing lesions, rash or unusual bruising Neuro Neuro: Negative for dizziness, lightheadedness, near syncope, syncope, orthostatic symptoms, frequent falls, headache(s), weakness, confusion, memory loss, blurry vision, double vision, vertigo or lack of coordination Isiah Hematologic/Lymphatic: Negative for easy bleeding or easy bruising Endo Endo: Negative for fatigue, excessive sweating, flushing or increased thirst/drinking Psych Psych: Negative for anxiety or depression Allergy Allergy/Immunology: Negative for hives and Negative for rash Cardiology Exam Const Appearance: cooperative, healthy appearing, comfortable, no acute distress and well developed Orientation: alert, awake and oriented x3 Limitations: physical limitations (ambulates with walker) Head Head: normal to inspection Ears: hearing grossly normal bilaterally Nose: external nose normal Face and Sinus: face symmetric Mouth: oral mucosae normal, lip normal and moist mucous membranes Eyes General: appearance normal, both eyes and all related structures Eyelids: eyelids normal Conjunctivae: conjunctivae normal Pupils: PERRL EOM: EOM intact bilaterally Neck Neck: normal visual inspection and trachea midline; Negative no JVD Carotids: Negative bruit Chest Chest inspection: normal inspection of the chest Auscultation: Bilateral: Clear to Auscultation Cardio Palpation: normal PMI Rate: regular rate Rhythm: regular rhythm Heart sounds: S1 normal, S2 normal and murmur; Negative rub or gallop Murmur: Grade 3/6, harsh and mid systolic GI GI: soft, no hepatosplenomegaly and bowel sounds present Neuro General: patient alert, patient awake, patient oriented x3 and CN's II-XI intact bilaterally Extremities Pulses: Normal: Right Posterior Tibial Pulse, Left Posterior Tibial Pulse, Right Radial Pulse and Left Radial Pulse Lower Extremity Edema: None: Bilateral Psych Psychological: normal affect Supplemental Info Supplemental Information Echocardiogram 01/08/2024: Interpretation Summary Normal LV size. Left ventricular systolic function is normal. The estimated ejection fraction is 70 %. Moderate focal aortic valve calcification. Mean aortic valve gradient 56 mmHg. Mild (1+) aortic valve insufficiency. Severe aortic stenosis. ECHOCARDIOGRAM 12/01/21: Interpretation Summary Normal LV size. Left ventricular systolic function is normal. The estimated ejection fraction is 60 %. Moderate focal aortic valve calcification. Mean aortic valve gradient 32 mmHg. Moderate aortic stenosis. Mild (1+) aortic valve insufficiency. Pharmacologic myocardial perfusion stress test 10/2019: Perfusion SPECT analysis: Review of the stress images demonstrate normal uptake of tracer noted in all areas of the myocardium the resting images similar demonstrate normal uptake of tracer noted in all areas of the myocardium. No areas of reversibility are noted to suggest ischemia no previous infarct is noted. Gated SPECT analysis: The gated ejection fraction is 64%. Conclusion: Normal pharmacologic myocardial perfusion stress test. Preserved ejection fraction. Echocardiogram 2019: Normal LV size. Left ventricular systolic function is normal. The estimated ejection fraction is 60 %. Stage 2 diastolic dysfunction. Mean aortic valve gradient 17 mmHg. Calculated aortic valve area (continuity equation) is 1.4 cm2. Moderate focal aortic valve calcification. Assessment and Plan Assessment and Plan (1) Nonrheumatic aortic (valve) stenosis: Status: Chronic Plan: Patient has a history of aortic valve stenosis. Her most recent echocardiogram from 01/08/2024 demonstrated severe aortic valve stenosis. Would like to proceed with a cardiac catheterization to further assess this. Depending on results, further recommendations will be made.
[2024-01-14 13:13] LABS: Anion Gap 6 (5-15); BUN 24 mg/dL (7-18); BUN/Creat Ratio 28.1 RATIO (10-20); Calcium,Total 9.9 mg/dL (8.5-10.1); Chloride 108 mmol/L (98-107); Creatinine, Serum 0.85 mg/dL (0.55-1.02); EST Glomerular Filtration Rate 69 mL/min (>60); Est Glom Filt Rate - Afr Amer 83 mL/min (>60); Glucose 166 mg/dL (74-106); Potassium 4.7 mmol/L (3.5-5.1); Sodium Level 140 mmol/L (136-145)
[2024-01-17 09:12] VITALS: BMI 47.5
--- NOTE | 2024-01-20 10:51 | CL.D_ITS ---
Patient Name: LITO GONZALEZ Study Date: 01/20/2024 Performing: Ac Hubbard MD Ht: 60 inches 152.4 cm : 1950 Wt: 243.3 lbs 110.22 kg Age: 73 Gender: female BSA: 2.03 PROCEDURE(S) PERFORMED [id number])[facility] CLINICAL PROFILE AND INDICATIONS Indications: Valvular Disease Heart Failure: None Stress/Imaging Stress/Image Study Performed: No CAD Presentations: Other: valve CONCLUSIONS Normal coronary arteries Normal LV size, wall motion,and systolic function Aortic Valve Stenosis- Severe RECOMMENDATIONS Refer for TAVR DESCRIPTION OF PROCEDURE The patient arrived to the procedure lab. The risks and benefits of the procedure as well as a full description of our services here and current unavailability of surgical backup were fully explained to the patient and/or their significant other prior to the catheterization. The Timeout was completed, verifying the correct patient and procedure. The patient's procedural site was prepped and draped in the usual fashion. Local anesthetic was given subcutaneously to right radial region with Lidocaine 2%. Using a modified Seldinger technique, arterial access was obtained via the right radial artery, a 6Fr sheath was inserted. Left Coronary Artery selective angiography was performed in multiple views using a 5 Fr. 4.0 Sublette catheter. Right Coronary Artery selective angiography was then performed in multiple views using a 5 Fr. 4.0 Sublette catheter.The arterial sheath was pulled and a TR Band was applied for hemostasis CORONARY ANGIOGRAPHY DOMINANCE: Left Dominant LEFT HEART ASSESSMENT Left Ventricular Ejection Fraction: by Echo 65 % Normal LV wall motion Normal Left Ventricular systolic function LEFT MAIN: Angiographically normal LEFT ANTERIOR DESCENDING ARTERY: Angiographically normal CIRCUMFLEX ARTERY: Angiographically normal RIGHT CORONARY ARTERY: Angiographically normal VALVE FINDINGS: Aortic Valve Stenosis - severe COMPLICATIONS No Complications PROCEDURE MEDICATIONS Versed 1 mg IV Fentanyl 50 mcg IV Oxygen: 2 L/min via nasal cannula Heparin given IA 01/20/2024 10:12:17 Verapamil 2.5mg, 3000 units of Heparin given IA 01/20/2024 10:12:17 SUMMARY OF HEMODYNAMIC DATA Time AIR REST ECG 08:56:47 ECG 09:57:53 AO 125/78 (99) SA 10:21:59 Signed By Ac Hubbard MD On 01/20/2024 10:50:39 Ac Hubbard MD
== END 2024-01-20 12:30 | disposition home or self-care (01) ==
PROVIDERS: Nurse Practitioner Gerontology; PCP Internal Medicine; Referring Provider Internal Medicine Cardiovascular Disease; Visit Provider Internal Medicine Cardiovascular Disease
DX: I35.0 Nonrheumatic aortic (valve) stenosis (principal); I48.0 Paroxysmal atrial fibrillation; E11.9 Type 2 diabetes mellitus without complications; I10 Essential (primary) hypertension; R42 Dizziness and giddiness
CPT/HCPCS: 36415; 71046; 80048; 85025; 93005; 93454; 99152; 99153; J7040; Q9967; C1769; C1894

== ENCOUNTER 2025-02-25 20:40 | Inpatient (IN) | payer MEDICARE, SELFPAY ==
[2025-02-25] VITALS (14 sets, daily range): BP systolic 94–149; BP diastolic 56–131; PULSE 115–132; RESP 23–37; TEMP 38.4–39.6; O2SAT 97–100; BMI 46.5
--- NOTE | 2025-02-25 20:51 | EKG12_ITS ---
Test Reason : ALTERED LOC Blood Pressure : */* mmHG Vent. Rate : 125 BPM Atrial Rate : 125 BPM P-R Int : 152 ms QRS Dur : 128 ms QT Int : 302 ms P-R-T Axes : 42 92 -19 degrees QTcB Int : 435 ms Sinus tachycardia Right bundle branch block T wave abnormality, consider inferior ischemia Abnormal ECG Confirmed by AMANDA RAZA, LUCIANA ([id number]), industrial editor DAMI JETER ([id number]) on 03/01/2025 10:27:04 AM Referred By: CAROLYN Confirmed By: LUCIANA PATEL MD
--- NOTE | 2025-02-25 21:05 | EKG12_ITS ---
Test Reason : TACHY Blood Pressure : */* mmHG Vent. Rate : 186 BPM Atrial Rate : * BPM P-R Int : * ms QRS Dur : 128 ms QT Int : 248 ms P-R-T Axes : * 99 -40 degrees QTcB Int : 436 ms Critical Test Result: High HR atrial flutter with rapid response Right bundle branch block T wave abnormality, consider inferior ischemia Abnormal ECG When compared with ECG of 25-Feb-2025 20:51, MANUAL COMPARISON REQUIRED DATA IS UNCONFIRMED Confirmed by AMANDA RAZA, LUCIANA ([id number]), assignment editor MOUNIKA SANABRIA ([id number]) on 02/26/2025 10:59:39 AM Referred By: Argueta Confirmed By: LUCIANA PATEL MD
--- NOTE | 2025-02-25 21:07 | EDS_ITS ---
HPI History of Present Illness Chief Complaint: Confusion Informant: spouse/S.O., family and EMS Narrative Narrative: History of hypertension, SVT, paroxysmal atrial fibrillation, aortic sclerosis and mild stenosis. She is status post TAVR 04/06/2024. Patient had a pacemaker placed at that time as well secondary to intermittent complete heart block observed while hospitalized. Primary EMS increased altered mental status. Spouse and family present. States she was driving earlier today however confused. Despite no cough unclear of any vomiting. Spouse states at times will have memory lapse however no diagnosis dementia. From records she is on Eliquis for history of A-fib. On arrival she is confused she has a fever she is tachycardic. Blood pressure 121/73. [facility] Medical History Intermittent complete heart block Presence of cardiac pacemaker Obesity Diabetes COVID-19 virus detected (05/19/20) Atrial fibrillation with rapid ventricular response (08/2015) Right bundle branch block (RBBB) Type 2 diabetes mellitus Nonrheumatic aortic (valve) stenosis Essential (primary) hypertension Microcalcification of left breast on mammogram Abnormal mammogram of left breast Sepsis Diverticulitis Encephalopathy DKA (diabetic ketoacidoses) Arthritis Aortic valve calcification Diabetes type 2, uncontrolled Morbid obesity Home Medications ?Medication ?Instructions ?Recorded ?Last Taken ?Type calcium carbonate (Calcium 500) 500 mg PO DAILY supple ment 01/05/19 Unknown History glucosamine HCl 1,500 mg tablet 1,500 mg PO DAILY 03/30 04/17 Unknown History metoprolol succinate 25 mg 50 mg PO DAILY bp 06/01/24 Unknown History tablet,extended release 24 hr glimepiride 2 mg tablet 4 mg PO BID 06/02/24 Unknown History metformin 500 mg tablet 1,000 mg PO BID diabetes 12/19 Unknown History apixaban 5 mg tablet (Eliquis) 5 mg PO BID #180 tabs 0 02/08/25 Unknown Rx losartan 50 mg tablet 50 mg PO QDAY 02/08/25 Unkno wn History Allergy/AdvReac Type Severity Reaction Status Date / Time atorvastatin (From Lipitor) Allergy Intermediate Rash Verified 02/08/25 10:33 Family History Father COPD (chronic obstructive pulmonary disease) CAD (coronary artery disease) Mother Cancer Breast cancer Surgical History History of right hip replacement (12/02/19) history left breast stereotactic biopsy (02/10/18) History of total right knee replacement (TKR) History of total left knee replacement (01/31/09) History of total hysterectomy History of appendectomy Social History Smoking Status: Never smoker second hand exposure: No alcohol intake: never substance use type: does not use caffeine: No what type of physical activity do you participate in: none frequency: does not exercise seatbelt use: always ROS ROS ED Review of Systems ROS Unobtainable: due to mental status EXAM Physical Exam Const Vital Signs: 02/25/25 20:42 02/25/25 20:56 02/25/25 21:00 Temperature 103 F H Temperature Source Axillary Pulse Rate 129 H 128 H 131 H Respiratory Rate 30 H 23 H 27 H Blood Pressure 121/73 H Blood Pressure Mean 89 Pulse Ox 98 Oxygen Delivery Method Room Air 02/25/25 21:08 02/25/25 21:15 02/25/25 21:30 Temperature Temperature Source Pulse Rate 125 H 128 H Respiratory Rate 36 H 30 H Blood Pressure 149/80 H Blood Pressure Mean 103 Pulse Ox Oxygen Delivery Method Room Air 02/25/25 21:32 02/25/25 21:32 02/25/25 21:45 Temperature Temperature Source Pulse Rate 132 H 128 H Respiratory Rate 25 H 37 H Blood Pressure 143/131 H 143/131 H 149/128 H Blood Pressure Mean 137 137 137 Pulse Ox Oxygen Delivery Method 02/25/25 21:56 02/25/25 22:00 02/25/25 22:47 Temperature 103.2 F H 102.7 F H Temperature Source Axillary Oral Pulse Rate 124 H 123 H 115 H Respiratory Rate 27 H 28 H 26 H Blood Pressure 139/66 H 119/65 94/56 L Blood Pressure Mean 90 83 68 Pulse Ox 99 100 97 Oxygen Delivery Method Room Air Room Air Room Air 02/25/25 23:00 02/25/25 23:29 02/25/25 23:30 Temperature 101.1 F H 101.1 F H Temperature Source Axillary Oral Pulse Rate 119 H 118 H 127 H Respiratory Rate 28 H 29 H 23 H Blood Pressure 135/84 H 135/87 H 131/62 H Blood Pressure Mean 101 103 85 Pulse Ox 97 97 97 Oxygen Delivery Method Room Air Room Air Room Air 02/25/25 23:31 02/26/25 00:00 Temperature 101.1 F H 101.0 F H Temperature Source Axillary Pulse Rate 119 H 117 H Respiratory Rate 29 H 30 H Blood Pressure 138/90 H 131/62 H Blood Pressure Mean 106 85 Pulse Ox 97 100 Oxygen Delivery Method Room Air Positive well nourished and well developed Constitutional Narrative: Nontoxic however confused. Moving all 4 extremities. General Appearance ED: well developed HEENT Reports moist mucous membranes normocephalic and atraumatic Eyes General Eye ED: Yes normal appearance of both eyes Neck full ROM Chest Wall Chest: Negative for tenderness Resp normal respiratory effort and normal air movement Effort and Inspection: symmetric chest movement; Negative for respiratory distress Cardio regular rhythm and no murmurs Rate: tachycardic Peripheral Pulses: pulses 2+ throughout GI normal to inspection, nondistended, normoactive bowel sounds and non-tender Palpation: Negative for guarding or rebound tenderness present Extremity normal to inspection General Extremety ED: Negative for edema or tenderness General Extremity: Negative for edema Neuro Neuro Narrative: Patient tell me her name cannot tell me the place or time. Skin no rashes or lesions noted and no wounds Sepsis Attestation Sepsis Alert: Yes Sepsis Attestation: Agree w/Sepsis Date exam was performed: 02/25/25 Time exam was performed: 21:00 Possible Source of Sepsis: Unknown Sepsis Organ Dysfunction Criteria Present: Lactic Acid > 2 mmol/L Fluid Resuscitation Amount of fluid ordered: 2,000 Reason for lesser fluid bolus:: Concern for fluid overload Sepsis Note Date exam was performed: 02/26/25 Time exam was performed: 00:29 Sepsis Attestation: Sepsis re-evaluation was performed MDM MDM MDM Narrative Medical decision making narrative: Interventions / MDM: Differential diagnosis: Febrile illness, encephalopathy Diagnosis considered but do not suspect: Intra hemorrhage heart CT negative. UTI however urine negative. My EKG interpretation: Sinus tachycardia rate of 125, no ST changes, right bundle branch block. Imaging independently reviewed and interpreted by myself: CT brain: No intracranial hemorrhage. Will be chest x-ray: No acute process. External documents reviewed: N/A Test considered but not ordered:N/A ED course: Presentation confusion febrile tachycardic respirate noted 30s however she was not in any respiratory distress. Sepsis workup initial. She is on Eliquis for CT scan will be ordered. Nursing did cath for urine. Rectal Tylenol for her fever. 2217: CT negative chest x-ray labs white count 11.7. Lactic acid 2.2. Creatinine 1.06. Cath urine negative for infection. COVID flu RSV pending. Febrile illness unclear etiology at this time. I will add viral panel will obtain chest abdomen pelvis CT looking for potential source of infection. 8: CT chest abdomen pelvis IV contrast returning negative. Viral panel pending. No clear etiology with her fever at this time. She is communicating however not baseline. Heart rate 120s blood pressure 120 in the room. Zosyn was started will add vancomycin febrile with unknown origin. Will discuss with hospitalist for admission. Symptomatic to the possibility of atrial flutter with her heart rate now improved with fluids. IV Lopressor x 1 was given. 0000: I spoke with hospitalist Dr. Grimm updated on the findings and workup. Fever of unknown origin tachycardia will place in the ICU. Re-evaluation: stable Disposition discussed with patient/family/significant other: Patient and family Case discussed with consulting clinician: Hospitalist This note was generated with [employer] dictation software. It may contain incorrect words, spelling, and punctuation that were not noted in checking the note before signing. Lab Data Attestation: I reviewed the patient's lab results. Labs: Laboratory Results - last 24 hr 02/25/25 02/25/25 02/25/25 20:30 20:50 21:10 WBC 11.7 H RBC 4.59 Hgb 14.3 Hct 42.3 MCV 92.2 MCH 31.2 MCHC 33.8 RDW Std Deviation 44.8 H RDW Coeff of Yovany 13.2 Plt Count 115 L MPV 11.4 Immature Gran % (Auto) 0.600 Neut % (Auto) 89.7 H Lymph % (Auto) 5.8 L [place] % (Auto) 3.0 Eos % (Auto) 0.0 Baso % (Auto) 0.9 Absolute Neuts (auto) 10.5 H Absolute Lymphs (auto) 0.68 L Nucleated RBC % 0 PT 15.5 H INR 1.2 APTT 30.0 Sodium 134 Potassium 4.5 Chloride 99 Carbon Dioxide 22.3 Anion Gap 13 BUN 22 H Creatinine 1.06 Estim Creat Clear Calc 50.25 Est GFR (MDRD) Non-Af 54 L BUN/Creatinine Ratio 20.8 H Glucose 279 H Lactic Acid 2.2 H* Calcium 9.6 Total Bilirubin 1.33 H AST 21 ALT 27 Alkaline Phosphatase 65 Total Protein 6.7 Albumin 4.1 Globulin 2.6 Albumin/Globulin Ratio 1.5 Urine Color Yellow Urine Clarity Sl. Cloudy Urine pH 7.0 Ur Specific [place] 1.005 Urine Protein 30 H Urine Glucose (UA) 1000 H Urine Ketones Negative Urine Occult Blood 25 H Urine Nitrite Negative Urine Bilirubin Negative Urine Urobilinogen Normal Ur Leukocyte Esterase Negative Urine RBC 0-5 SEEN Urine WBC 0-5 SEEN Ur Squamous Epith Cells 0-5 SEEN Urine Bacteria 0 SEEN Urine Mucus 0 SEEN Radiography Diagnostic Testing: Clinical Impression(s) from Imaging Studies Brain CT 02/25/25 21:45 IMPRESSION: No acute intracranial findings Reading Location: [place] [address] Chest X-Ray 02/25/25 21:45 IMPRESSION: No acute chest findings. Reading Location: [place] [address] Chest/Abdomen/Pelvis CT 02/25/25 22:19 IMPRESSION: No acute chest abdomen or pelvic pathology. Reading Location: [place] [address] Critical Care Time Critical Care Time: Yes Critical care time (excluding procedures): 30-74 minutes, Discussing w/Patient &/or Family/Senior Java Ui Developer, Discussing w/Consultants, Arranging Admission or Transfer, Performing Direct Patient Care at Bedside and - (45 minutes) Discharge Plan Dx/Rx/DC Orders Clinical Impression: Fever, Presence of cardiac pacemaker, Encephalopathy, Acidosis, lactic, Chronic anticoagulation Disposition Disposition: Acute Care [facility]
[2025-02-25 21:18] LABS: Mucous, Urine 0 SEEN /hpf (<or=2+)
[2025-02-25 21:24] LABS: Hematocrit 42.3 % (37-47); Hemoglobin 14.3 g/dL (12.0-15.0); Immature Granulocytes Count 0.070 X10^3/uL (0.0-0.0); Mean Corp Hgb Conc 33.8 g/dL (32-36); Mean Corpuscular Volume 92.2 fL (81-99); Mean Platelet Vol. 11.4 fl (6.2-12.0); NRBC Flagged by Analyzer 0 % (0-5); Platelet Count 115 K/mm3 (150-450); RBC Distribution Width CV 13.2 % (11.6-14.6); RBC Distribution Width SD 44.8 fl (35.1-43.9); Red Blood Count 4.59 M/mm3 (4.2-5.4); White Blood Count 11.7 K/mm3 (4.4-11.0)
[2025-02-25] MEDS: 0.9% Normal Saline (1000mL) 1,000 ML 999 ML IV ×2 (21:27→23:26)
[2025-02-25 21:37] LABS: Color, Urine Yellow (Yellow); Glucose, Dipstick 1000 mg/dl (Normal); Ketone-Dipstick Negative (Negative); Leukocyte Esterase-Dipstick Negative /ul (Negative); Nitrite-Dipstick Negative (Negative); Occult Blood-Urine 25 /ul (Negative); Protein-Dipstick 30 mg/dl (Negative); Specific Gravity, Urine 1.005 (1.002-1.030); Urine Bilirubin Dipstick Negative (Negative)
[2025-02-25 21:41] LABS: Prothrombin Time (Protime)PT. 15.5 SECONDS (11.7-14.9)
[2025-02-25 21:42] LABS: Partial Thromboplast Time 30.0 Seconds (24.1-36.2)
[2025-02-25 21:43] LABS: AST(SGOT) 21 U/L (<=31); Alanine Aminotransfer ALT/SGPT 27 U/L (<=34); Albumin, Serum 4.1 g/dL (3.4-4.8); Alkaline Phosphatase 65 U/L (35-104); Anion Gap 13 (5-15); BUN 22 mg/dL (4-19); BUN/Creat Ratio 20.8 RATIO (10-20); Calcium,Total 9.6 mg/dL (7.6-11.0); Carbon Dioxide 22.3 mmol/L (21.0-32.0); Chloride 99 mmol/L (98-108); Estimated Creatinine Clearance 50.25 ml/min (50-250); Globulin 2.6 g/dL (2.2-4.2); Glucose 279 mg/dL (70-99); Potassium 4.5 mmol/L (3.3-5.1)
--- NOTE | 2025-02-25 21:45 | CT_ITS ---
PROCEDURE: BRAIN/HEAD WITHOUT CONTRAST 02/25/2025 REASON FOR EXAM: ALTERED MENTAL STATUS TECHNIQUE: BRAIN/HEAD WITHOUT CONTRAST Coronal and Sagittal reconstruction series were provided. One or more dose reduction techniques were used (e.g., Automated exposure control, adjustment of the mA and/or kV according to patient size, use of iterative reconstruction technique. RADIATION DOSE SUMMARY: CTDlvol: 45 mGy DLP: 813 mGycm COMPARISON: No FINDINGS: Mild atrophy. Mild white matter change. 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 Arterial calcifications. No acute abnormal brain densities. No intracranial hemorrhage. No hydrocephalus or midline shift. No acute scalp or skull pathology. Unremarkable orbits. Clear sinuses, mastoid air cells, middle ear cavities. CT/Brain/Head without Contrast IMPRESSION: No acute intracranial findings Reading Location: [place] [id number]
--- NOTE | 2025-02-25 21:45 | RAD_ITS ---
PROCEDURE: CHEST 1 VIEW (PORTABLE) 02/25/2025 REASON FOR EXAM: ALTERED MENTAL STATUS TECHNIQUE: Frontal view of the chest. COMPARISON: 01/14/2024 FINDINGS: Normal heart size. Status post AVR. Unremarkable cardiac device. Well inflated lungs. No consolidation, effusion or pneumothorax. Chronic right-sided rotator cuff tear. RAD/Chest 1 View (Portable) IMPRESSION: No acute chest findings. [facility]
[2025-02-25 22:06] LABS: Red Blood Cells-Urine 0-5 SEEN /hpf (0-5); Squamous Epithelial Cells - UA 0-5 SEEN /hpf (5-10)
--- OUTSIDE RECORDS SUMMARY | 2025-02-25 22:07 | XMS RPT_ITS | CCD ---
Author Organization [facility] Care Team Providers Care Dining Service Inspector Name Role Phone Dr. Abby Mcclellan Primary Care Provider [phone] Dr. Abby Mcclellan Referring Provider Marli GARIBAY, LANI Melchor Attending Provider Dr. Ac Hubbard Attending Provider Abby Mcclellan MD Primary Care Provider Dr. Abby Mcclellan Primary Care Provider Dr. Abby Mcclellan Referring Provider Dr. Hawk Flannery Attending Provider [phone] Abby Mcclellan MD Primary Care Provider Abby Mcclellan MD Primary Care Provider Abby Mcclellan MD Primary Care Provider Abby Mcclellan Primary Care Provider [phone] SRINIVASA POON Admitting Unavailable SRINIVASA POON Attending Unavailable TALAMPAS, ABBY, Primary Care Unavailable LINDSEY TOLENTINO Attending Unavailable LINDSEY TOLENTINO Referring Unavailable TALAMPAS, ABBY, Primary Care Unavailable AMERICA DAVIS Attending Unavailable AMERICA DAVIS Referring Unavailable TALAMPAS, ABBY, Primary Care Unavailable TALAMPAS, ABBY, Primary Care Unavailable AMERICA DAVIS Attending Unavailable TALAMPAS, ABBY, Primary Care Unavailable SRINIVASA POON Attending Unavailable TALAMPAS, ABBY, Primary Care Unavailable RENZO HORTA Attending Unavailable TALAMPAS, ABBY, Primary Care Unavailable IRA AQUINO Attending Unavailable LINDSEY TOLENTINO Attending Unavailable TALAMPAS, ABBY, Primary Care Unavailable Hawk LAB SUPPORT TECH.SPA HOST, Heidy Unavailable Dave LAB SUPPORT TECH.WALL MAN, Kamlesh Unavailable Dave LAB SUPPORT TECH.WALL MAN, Kamlesh Gely Unavailable Dave LAB SUPPORT TECH.WALL MAN, Kamlesh Unavailable Dave LAB SUPPORT TECH.WALL MAN, Kamlesh Unavailable Vy RAZA, Dr. Abby Edwards Primary Care Provider Haydee RAZA, Dr. Shen Attending Provider Hawk LAB SUPPORT TECH.SPA HOST, Heidy Unavailable DAVE, KAMLESH Attending Unavailable TALAMPAS, ABBY D Primary Care Unavailable DAVE, KAMLESH Referring Unavailable TALAMPAS, ABBY D Primary Care Unavailable DAVE, KAMLESH Attending Unavailable TALAMPAS, ABBY D Primary Care Unavailable TALAMPAS, ABBY D Primary Care Unavailable TALAMPAS, ABBY D Primary Care Unavailable TALAMPAS, ABBY D Referring Unavailable TALAMPAS, ABBY D Primary Care Unavailable DAVE, KAMLESH Attending Unavailable TALAMPAS, ABBY D Primary Care Unavailable DAVE, KAMLESH Attending Unavailable TALAMPAS, ABBY D Primary Care Unavailable Hawk LAB SUPPORT TECH.SPA HOST, Heidy Unavailable Dr. Abby Mcclellan MD Primary Care Provider Dr. Ac Hubbard MD Attending Provider Dr. Abby Mcclellan MD Referring Provider Hilary Jackman Attending Provider Unavailable Gm Carter Attending Provider Ac Hubbard Attending Unavailable Talampas, Abby D Primary Care Unavailable Haydee, Ac Attending Unavailable Talampas, Abby D Primary Care Unavailable Haydee, [place] Attending Unavailable Talampas, Abby D Primary Care Unavailable Talampas, Abby D Primary Care Unavailable Haydee, Ac Attending Unavailable Talampas, Abby D Primary Care Unavailable Haydee, [place] Attending Unavailable Talampas, Abby D Referring Unavailable Talampas, Abby D Primary Care Unavailable Haydee, Ac Attending Unavailable Talampas, Abby D Referring Unavailable Talampas, Abby D Primary Care Unavailable Gm Robledo Attending Unavailable HaydeeAc tang Attending Unavailable Talampas, Abby D Primary Care Unavailable Talampas, Abby D Primary Care Unavailable Talampas, Abby D Referring Unavailable Jacinda Dexter NP Attending Unavailable Talampas, Abby D Primary Care Unavailable Ac Hubbard Attending Unavailable Talampas, Abby D Referring Unavailable Allergies Allergy Classification Reported Allergen(s) Allergy Type Date of Onset Reaction(s) Facility (20 sources) atorvastatin; Translations: [ATORVASTATIN] Drug Allergy 06-27-2016 [facility] Work Phone: (17 sources) atorvastatin Drug Allergy 06-27-2016 [facility] (1 source) atorvastatin Drug Allergy 02-08-2025 [facility] Repository Medications Current Medications Medication Drug Class(es) Dates Sig (Normalized) Sig (Original) Blood-Glucose Meter (3 sources) Start: 01-11-2025 End: 01-11-2026 Blood-Glucose Meter Indications: Type 2 diabetes mellitus with hyperglycemia, without long-term current use of insulin (HCC) 1 device as directed. For daily fasting am glucose checks. Not on insulin 1 each 01/11/2025 01/11/2026 Active calcium carbonate 1250 mg oral tablet (20 sources) Start: 01-05-2019 take 1 tablet by mouth once daily Calcium Carbonate (Calcium 500) 500 mg calcium (1,250 mg) tablet Active 500 mg PO DAILY January 05, 2019 12:00am supplement calcium carbonat e 500 MG chewable tablet Chew 500 mg daily. Active calcium carbonate 1500 mg / cholecalciferol 200 unt oral tablet (20 sources) Vitamin D Start: 01-09-2006 BRANNON-600 WITH VITAMIN D 600 MG-200 UNIT TAB Take one(1) tablet two(2) times daily. 0 01/09/2006 Active Comment on above: Take one(1) tablet t wo(2) times daily. doxycycline monohydrate 100 mg oral tablet (1 source) Tetracycline-class Drug Start: 07-31-2022 End: 08-07-2022 take 1 tablet by mouth twice daily doxycycline monohydrate 100 mg tablet Take 1 tablet by mouth twice daily for 7 days. 14 tablet 0 07/31/2022 08/07/2022 Active Comment on above: Take 1 tablet by james th twice daily for 7 days. empagliflozin 10 mg oral tablet (3 sources) Sodium-Glucose Cotransporter 2 Inhibitor Start: 01-11-2025 empagliflozin (JARDIANCE) 10 mg tablet Indications: Type 2 diabetes mellitus with hyperglycemia, without long-term current use of insulin (HCC) , Nonrheumatic aortic valve stenosis , Cardiac pacemaker , Hyperlipidemia associated with type 2 diabetes mellitus (HCC) , Hypertension goal BP (blood pressure) Take 1 tablet by mouth daily with breakfast. 90 tablet 1 01/11/2025 Active flaxseed oil (OMEGA 3 ORAL) (3 sources) take 2 capsules by mouth twice daily flaxseed oil (OMEGA 3 ORAL) Take 2 capsules by mouth two times a day. Active glimepiride 4 mg oral tablet (20 sources) Sulfonylurea Start: 09-23-2024 End: 02-15-2025 take 1 tablet by mouth twice daily at mealtime glimepiride (AMARYL) 4 mg tablet Take 1 tablet by mouth two times a day with meals. 180 tablet 3 02/16/2025 Active Start: 06-02-2024 take 2 tablets by mo [facility] twice daily Glimepiride 2 mg tablet Active 4 mg PO TWICE A DAY June 02, 2024 5:09pm Start: 11-15-2023 End: 09-21-2024 take 1 tablet by mouth twice daily at mealtime glimepiride (AMARYL) 4 mg tablet Take 1 tablet by mouth two times a day with meals. 180 tablet 1 09/23/2024 Active Start: 11-15-2023 End: 02-25-2024 take 2 tablets by mouth once daily at breakfast glimepiride (AMARYL) 4 mg tablet Take 2 tablets by mouth daily with breakfast. 14 tablet 0 11/15/2023 02/25/2024 Discontinued Start: 04-19-2023 End: 11-15-2023 take 1 tablet by mouth once daily at breakfast glimepiride (AMARYL) 4 mg tablet Take 1 tablet by mouth daily with breakfast. 14 tablet 0 11/13/2023 11/15/2023 Discontinued Start: 02-12-2022 Glimepiride Ac tive MG PO February 12, 2022 12:00am Start: 12-05-2021 End: 06-02-2024 take 2 tablets by mouth once daily Glimepiride 2 mg tablet Discontinued 4 mg PO DAILY February 12, 2022 12:00am June 02, 2024 5:11pm Comment on above: Take 1 tablet by james th daily with breakfast. Take 2 tablets by mo uth daily with breakfast. Take 1 tablet by james th two times a day with meals. glucosamine hydrochloride 1500 mg oral tablet (20 sources) Start: 0 take 1 tablet by mouth once daily Glucosamine Hcl 1,500 mg tablet Active 1500 mg PO DAILY April 26, 2020 12:00am administer with a meal Start: 01-05-2019 End: 12-03-2019 take 1 tablet by mouth once daily Glucosamine Hcl 750 mg tablet Discontinued 750 mg PO DAILY January 05, 2019 12:00am December 03, 2019 8:47am supplement Start: 04-03-2005 take 1 tablet by james th once daily GLUCOSAMINE 1,000 MG ORAL TAB Take one(1) tablet daily. 0 04/03/2005 Active Comment on above: Take one(1) tablet d aily. Gswpdbkiytl-Sojgbhsel-Z it C-Mn (GLUCOSAMINE 1500 COMPLEX PO) (17 sources) Glucosamine-Calderon oit-Vit C-Mn (GLUCOSAMINE 1500 COMPLEX PO) Take by mouth. Active metFORMIN hydrochloride 500 mg oral tablet (20 sources) Biguanide Start: 5 take 1 tablet by mouth twice daily at mealtime metFORMIN (GLUCOPHAGE) 500 mg tablet Take 1 tablet by mouth two times a day with meals. 180 tablet 3 02/15/2025 Active Start: 09-29-2024 End: 02-09-2025 take 1 tablet by mouth twice daily at mealtime metFORMIN (GLUCOPHAGE) 500 mg tablet Take 1 tablet by mouth two times a day with meals. 180 tablet 3 09/29/2024 02/09/2025 Discontinued Start: 07-31-2023 End: 09-29-2024 take 2 tablets by mouth twice daily Metformin 500 mg tablet Active 1000 mg PO TWICE A DAY June 02, 2024 5:10pm diabetes Start: 09-06-2021 End: 06-02-2024 take 1 tablet by mouth twice daily Metformin 500 mg tablet Discontinued 500 mg PO TWICE A DAY November 01, 2021 2:09pm June 02, 2024 5:11pm diabetes Start: 10-25-2017 End: 11-01-2021 take 1 tablet by mouth once daily Metformin 500 mg tablet Discontinued 500 mg PO daily October 25, 2017 12:00am November 01, 2021 2:09pm diabetes Comment on above: Take 1 tablet by james th twice daily with meals. Take 1 tablet by james th two times a day with meals. Take 2 tablets by mo ut two times a day with meals. 24 hr metoprolol succinate 25 mg extended release oral tablet (20 sources) beta-Adrenergic Liliya Start: 05-07-2024 End: 05-19-2024 take 1 tablet by mouth once daily metoprolol succinate XL (Toprol-XL) 50 MG 24 hr tablet Take 1 tablet (50 mg) by mouth daily. 90 tablet 3 05/19/2024 Active Start: 02-14-2021 take 1 tablet by james th once daily metoprolol succinate ER (TOPROL XL) 25 mg 24 hr tablet Indications: Essential hypertension Take 1 tablet by mouth once daily. (Dr. Hubbard) 02/14/2021 Active Start: 02-14-2021 End: 05-07-2024 take 1 tablet by mouth once daily metoprolol succinate ER (TOPROL XL) 25 mg 24 hr tablet Indications: Essential hypertension Take 1 tablet by mouth once daily. (Dr. Hubbard) 02/14/2021 Active Start: 02-08-2020 End: 06-01-2024 take 1 tablet by mouth once daily Metoprolol Succinate 25 mg tablet extended release 24 hr Discontinued 25 mg PO DAILY 90 3 October 07, 2023 11:57am June 01, 2024 4:04pm bp Start: 12-03-2019 End: 02-08-2020 take 2 tablets by mouth once daily Metoprolol Succinate 50 MG tablet extended release 24 hr Discontinued 25 mg PO DAILY 0 December 03, 2019 11:02am February 08, 2020 2:14pm bp Start: 09-23-2015 End: 02-14-2021 take 25 mg by mouth once daily Metoprolol Succinate Di scontinued 25 MG PO DAILY December 03, 2019 11:02am February 08, 2020 2:14pm Start: 09-21-2015 End: 12-03-2019 take 1 tablet by mouth once daily Metoprolol Succinate 50 mg tablet extended release 24 hr Discontinued 50 mg PO DAILY 90 April 29, 2019 10:28am November 20, 2019 10:29am Start: 09-16-2015 End: 09-21-2015 take 1 tablet by mouth once daily Metoprolol Succinate 25 MG tablet Discontinued 25 mg PO DAILY September 16, 2015 1:00am September 21, 2015 3:17pm Comment on above: Take 1 tablet by james th once daily. (Dr. Hubbard) semaglutide (OZEMPIC) 0.25 mg or 0.5 mg (2 mg/3 mL) pen (13 sources) Start: 03-12-2025 semaglutide (OZEMPIC) 0.25 mg or 0.5 mg (2 mg/3 mL) pen Indications: Class 3 severe obesity due to excess calories with body mass index (BMI) of 45.0 to 49.9 in adult, unspecified whether serious comorbidity present (HCC) , Hyperlipidemia associated with type 2 diabetes mellitus (HCC) , Type 2 diabetes mellitus with hyperglycemia, without long-term current use of insulin (HCC) Inject 0.25 mg subcutaneously one time a week. Patient should start on March 12, 2025. 3 mL 1 03/12/2025 Active Start: 02-15-2025 semaglutide (O ZEMPIC) 0.25 mg or 0.5 mg (2 mg/3 mL) pen Indications: Class 3 severe obesity due to excess calories with body mass index (BMI) of 45.0 to 49.9 in adult, unspecified whether serious comorbidity present (HCC) , Hyperlipidemia associated with type 2 diabetes mellitus (HCC) , Type 2 diabetes mellitus with hyperglycemia, without long-term current use of insulin (HCC) Inject 0.25 mg subcutaneously one time a week. 3 mL 02/15/2025 Active Start: 11-10-2024 End: 02-09-2025 semaglutide (OZEMPIC) 0.25 m g or 0.5 mg (2 mg/3 mL) pen Indications: Class 3 severe obesity due to excess calories with body mass index (BMI) of 45.0 to 49.9 in adult, unspecified whether serious comorbidity present (HCC) , Hyperlipidemia associated with type 2 diabetes mellitus (HCC) , Type 2 diabetes mellitus with hyperglycemia, without long-term current use of insulin (HCC) Inject 0.5 mg subcutaneously one time a week. 3 mL 1 11/10/2024 02/09/2025 Discontinued (Changing Therapy/Dosage Form) Start: 11-10-2024 semaglutide (O ZEMPIC) 0.25 mg or 0.5 mg (2 mg/3 mL) pen Indications: Class 3 severe obesity due to excess calories with body mass index (BMI) of 45.0 to 49.9 in adult, unspecified whether serious comorbidity present (HCC) , Hyperlipidemia associated with type 2 diabetes mellitus (HCC) , Type 2 diabetes mellitus with hyperglycemia, without long-term current use of insulin (HCC) Inject 0.5 mg subcutaneously one time a week. 3 mL 1 11/10/2024 Active Start: 09-29-2024 End: 11-10-2024 semaglutide (OZEMPIC) 0.25 m g or 0.5 mg (2 mg/3 mL) pen Indications: Class 3 severe obesity due to excess calories with body mass index (BMI) of 45.0 to 49.9 in adult, unspecified whether serious comorbidity present (HCC) , Hyperlipidemia associated with type 2 diabetes mellitus (HCC) , Type 2 diabetes mellitus with hyperglycemia, without long-term current use of insulin (HCC) Inject 0.25 mg subcutaneously one time a week. 3 mL 1 09/29/2024 11/10/2024 Discontinued Start: 09-29-2024 semaglutide (O ZEMPIC) 0.25 mg or 0.5 mg (2 mg/3 mL) pen Indications: Class 3 severe obesity due to excess calories with body mass index (BMI) of 45.0 to 49.9 in adult, unspecified whether serious comorbidity present (HCC) , Hyperlipidemia associated with type 2 diabetes mellitus (HCC) (HCC) , Type 2 diabetes mellitus with hyperglycemia, without long-term current use of insulin (HCC) Inject 0.25 mg subcutaneously one time a week. 3 mL 1 09/29/2024 Active traMADol hydrochloride 50 mg oral tablet (1 source) Opioid Agonist Start: 01-11-2025 End: 01-18-2025 take 1 tablet by mouth three times daily as needed for pain traMADol (ULTRAM) 50 mg tablet Indications: Sciatic leg pain Take 1 tablet by mouth three times a day as needed for pain for up to 7 days. 21 tablet 01/11/2025 01/18/2025 Active Walker misc (20 sources) Start: 11-14-2018 Walker misc Indications: Generalized OA , Difficulty walking Trio Rolling Walker 1 Each 11/14/2018 Active Start: 11-14-2018 Walker misc In dications: Generalized OA , Difficulty walking Trio Rolling Walker 1 Each 0 11/14/2018 Active Comment on above: Trio Rolling Walker Completed/Discontinued Medications Medication Drug Class(es) Dates Sig (Normalized) Sig (Original) acetaminophen 325 mg oral tablet (9 sources) Start: 04-06-2024 End: 04-08-2024 take 1 tablet by mouth every four hours as needed for pain Start: 12-03-2019 End: 04-26-2020 Acetaminophen 500 MG tablet Discontinued 1000 mg PO EVERY 8 HOURS 100 0 December 03, 2019 12:00am April 26, 2020 9:27am Do not take more than 3000 mg Tylenol in a 24-hour period. Start: 12-03-2019 End: 04-26-2020 take 3000 mg by mouth every eight hours Acetaminophen Discontinued 1000 MG PO EVERY 8 HOURS December 03, 2019 8:45am April 26, 2020 9:27am Do not take more than 3000 mg Tylenol in a 24-hour period. apixaban 5 mg oral tablet (20 sources) Factor Xa Inhibitor Start: 05-07-2024 End: 02-08-2025 take 1 tablet by mouth twice daily Apixaban (Eliquis) 5 mg tablet Discontinued 5 mg PO TWICE A DAY 60 0 December 15, 2024 4:16pm February 08, 2025 10:52am aspirin 81 mg chewable tablet (20 sources) Platelet Aggregation Inhibitor, Nonsteroidal Anti-inflammatory Drug Start: 12-03-2019 End: 01-02-2020 take 1 tablet by mouth twice daily Aspirin 81 MG tablet,chewable Discontinued 81 mg PO TWICE A DAY 30 0 December 03, 2019 12:00am January 01, 2020 12:00am January 02, 2020 12:02am Take 81 mg aspirin twice daily for 4 weeks postoperatively for DVT prophylaxis Start: 09-23-2015 End: 09-29-2024 take 1 tablet by mouth once daily Aspirin (Adult Aspirin Regimen) 81 mg tablet,delayed release (DR/EC) Discontinued 81 mg PO DAILY November 03, 2020 12:00am June 02, 2024 5:11pm Start: 09-21-2015 End: 11-03-2019 take 1 tablet by mouth once daily Aspirin 81 MG tablet,chewable Discontinued 81 mg PO DAILY@0800 30 0 September 21, 2015 1:00am November 03, 2019 11:03am Comment on above: Take 1 tablet by james th once daily. 10 ml atropine sulfate 0.1 mg/ml prefilled syringe (2 sources) Anticholinergic, Cholinergic Muscarinic Antagonist Start: 4 End: 4 Starting on Sat04/07/24 at 0947, For 1 dose, Shavonne Sutherland: cabinet override benzonatate 100 mg oral capsule (1 source) Non-narcotic Antitussive Start: 8 End: 0 take 2 capsules by mouth every eight hours as needed benzonatate (TESSALON PERLE) 100 mg capsule Take 2 capsules by mouth three times daily as needed. 30 capsule 10/23/2017 05/31/2020 Discontinued Blood-Glucose Meter (TRUE METRIX GLUCOSE METER) (20 sources) Start: 3 End: 5 Blood-Glucose Meter (TRUE METRIX GLUCOSE METER) Indications: Controlled type 2 diabetes mellitus without complication, without long-term current use of insulin (HCC) 1 Each as directed. 1 Each 01/20/2023 01/11/2025 Discontinued Start: 01-20-2023 Blood-Glucose Meter (TRUE METRIX GLUCOSE METER) Indications: Controlled type 2 diabetes mellitus without complication, without long-term current use of insulin (HCC) 1 Each as directed. 1 Each 01/20/2023 Active Start: 01-20-2023 Blood-Glucose Meter (TRUE METRIX GLUCOSE METER) Indications: Controlled type 2 diabetes mellitus without complication, without long-term current use of insulin (HCC) 1 Each as directed. 1 Each 0 01/20/2023 Active Comment on above: 1 Each as directed. cholecalciferol 9.52 unt/ml / glucose 357 mg/ml oral gel (2 sources) Vitamin D Start: 04-06-2024 End: 04-08-2024 15 g, Oral, As needed, low blood sugar, Starting on 04/06/24 at 1422, If blood glucose less than 50 mg/dL and patient ALERT and NOT NPO, give 2 tubes glucose gel. If blood glucose less than 70 mg/dL and patient ALERT and NOT NPO, give 1 tube glucose gel. Repeat blood glucose in 15 minutes. If blood glucose is less than 70 mg/dL, repeat treatment and recheck blood glucose in 15 minutes x2 and notify provider. COMPOUNDED PRESCRIPTION (20 sources) Start: 10-12-2005 End: 09-29-2024 COMPOUNDED PRESCRIPTION Herbal Laxative Take as directed. 0 10/12/2005 09/29/2024 Discontinued Start: 10-12-2005 COMPOUNDED PRE SCRIPTION Herbal Laxative Take as directed. 0 10/12/2005 Active Comment on above: Herbal Laxative Take as directed. docusate sodium 50 mg / sennosides, jail 8.6 mg oral tablet (7 sources) Start: 12-03-2019 End: 04-26-2020 Sennosides-Docusate Sodium 1 TABLET tablet Discontinued 2 {tbl} PO TWICE A DAY 10 December 03, 2019 12:00am April 26, 2020 9:28am Take until first bowel movement, then as needed Start: 12-03-2019 End: 04-26-2020 Sennosides-Docusate Sodium D iscontinued 2 TABLET PO TWICE A DAY December 03, 2019 8:45am April 26, 2020 9:28am Take until first bowel movement, then as needed famotidine 20 mg oral tablet (7 sources) Histamine-2 Receptor Antagonist Start: 12-03-2019 End: 04-26-2020 take 1 tablet by mouth once daily Famotidine 20 MG tablet Discontinued 20 mg PO DAILY 30 December 03, 2019 12:00am April 26, 2020 9:28am glipiZIDE 10 mg oral tablet (2 sources) Sulfonylurea Start: 04-07-2024 End: 04-08-2024 10 mg, Oral, Daily before breakfast, First dose on Sat04/07/24 at 0900, Substituted for glimepiride (Amaryl). glucagon (rdna) 1 mg injection (2 sources) Antihypoglycemic Agent Start: 04-06-2024 End: 04-08-2024 1 mg, IntraMUSCular, PRN, low blood sugar, Blood glucose less than 70 mg/dL and patient NOT ALERT or NPO and does not have IV access., Starting on Sat04/06/24 at 1422, After administration, attempt intravenous access and start D5W at 100 mL/hr. Repeat blood glucose in 15 minutes x2 and notify provider. 150 ml glucose 50 mg/ml injection (4 sources) Start: 04-06-2024 End: 04-08-2024 12.5 g, IntraVENous, PRN, low blood sugar, Blood glucose less than 70 mg/dL and patient NOT ALERT or NPO., Starting on Sat04/06/24 at 1422, If patient does not respond within 5 minutes, repeat dose x1. Start D5W at 100 mL/hour until ordering provider can be reached. Repeat blood glucose in 15 minutes. If blood glucose is less than 70 mg/dL, repeat treatment and recheck blood glucose in 15 minutes x2. If using Glucostabilizer, dose as instructed per system. Start: 04-06-2024 End: 04-08-2024 100 mL/hr, IntraVENous, PRN, Blood sugar less than 70mg/dL, Starting on Sat04/06/24 at 1422, Start infusion following administration of dextrose 50% or glucagon. 3 ml insulin aspart, human 100 unt/ml pen injector (7 sources) Insulin Analog Start: 09-21-2015 End: 10-25-2017 Insulin Aspart U-100 100 UNITS/ML insulin pen Discontinued 6 U SC THREE TIMES DAILY BEFORE MEALS September 21, 2015 1:00am October 25, 2017 3:24pm Start: 09-21-2015 End: 10-25-2017 Insulin Aspart U-100 Discont inued 6 UNITS SC THREE TIMES DAILY BEFORE MEALS September 21, 2015 3:12pm October 25, 2017 3:24pm 3 ml insulin detemir 100 unt/ml pen injector (7 sources) Insulin Analog Start: 09-21-2015 End: 10-25-2017 Insulin Detemir U-100 100 UNITS/ML insulin pen Discontinued 40 U SC TWICE A DAY September 21, 2015 1:00am October 25, 2017 3:24pm Start: 09-21-2015 End: 10-25-2017 Insulin Detemir U-100 Discon tinued 40 UNITS SC TWICE A DAY September 21, 2015 3:12pm October 25, 2017 3:24pm insulin glargine 100 unt/ml injectable solution (2 sources) Insulin Analog Start: 04-07-2024 End: 04-06-2024 inject 10 [IU] by subcutaneous injection once 10 Units, SubCUTAneous, Once, On Sat04/07/24 at 0000, For 1 dose Start: 04-07-2024 End: 04-06-2024 inject 10 [IU] by subcutaneous injection once 10 Units, SubCUTAneous, Once, On Sat04/07/24 at 0000, For 1 dose insulin lispro 100 unt/ml injectable solution (2 sources) Insulin Analog Start: 04-06-2024 End: 04-06-2024 inject 6 [IU] by subcutaneous injection once 6 Units, SubCUTAneous, Once, On Sat04/06/24 at 0930, For 1 dose, Preprocedure iopamidol (Isovue-370) 76 % injection 100 mL (2 sources) Start: 03-10-2024 End: 03-10-2024 take 100 mL intravenously once as needed 100 mL, IntraVENous, IMG once PRN, contrast, Starting on Sat03/10/24 at 1349, For 1 dose levoFLOXacin 500 mg oral tablet (7 sources) Quinolone Antimicrobial Start: 09-21-2015 End: 10-25-2017 take 1 tablet by mouth once daily Levofloxacin 500 MG tablet Discontinued 500 mg PO DAILY September 21, 2015 1:00am October 25, 2017 3:24pm losartan potassium 50 mg oral tablet (20 sources) Angiotensin 2 Receptor Liliya Start: 04-08-2024 End: 05-14-2025 take 1 tablet by mouth once daily Losartan 50 mg tablet Discontinued 50 mg PO daily June 02, 2024 1:00am February 08, 2025 10:34am meloxicam 7.5 mg oral tablet (7 sources) Nonsteroidal Anti-inflammatory Drug Start: 12-03-2019 End: 04-26-2020 take 1 tablet by mouth twice daily at mealtime Meloxicam 7.5 MG tablet Discontinued 7.5 mg PO TWICE DAILY WITH MEALS 60 0 December 03, 2019 12:00am April 26, 2020 9:28am Do not take any other nonsteroidal anti-inflammatory while on meloxicam mupirocin 0.02 mg/mg topical ointment (2 sources) RNA Synthetase Inhibitor Antibacterial Start: 04-06-2024 End: 04-08-2024 1 Application, Nasal, 2 times daily, First dose on Sat04/06/24 at 1430, For 5 days, Recovery & On Unit, Indications: MRSA Nasal Decolonization naproxen sodium 220 mg oral capsule (16 sources) Nonsteroidal Anti-inflammatory Drug Start: 11-20-2019 End: 12-03-2019 take 2 capsules by mouth once daily Naproxen Sodium 220 MG capsule Discontinued 440 mg PO DAILY November 20, 2019 12:00am December 03, 2019 8:48am Start: 11-20-2019 End: 12-03-2019 take 440 mg by mouth once daily Naproxen Sodium Discon tinued 440 MG PO DAILY November 20, 2019 10:45am December 03, 2019 8:48am Start: 09-26-2016 End: 02-14-2021 take 1 tablet by mouth at bedtime Naproxen Sodium 220 MG tablet Discontinued 220 mg PO AT BEDTIME November 20, 2019 12:00am December 03, 2019 8:48am End: 01-11-2025 take 1 capsule by mouth twice daily naproxen sodium (ALEVE) 220 mg cap Take 1 capsule by mouth two times a day. 01/11/2025 Discontinued oxyCODONE hydrochloride 5 mg oral tablet (7 sources) Opioid Agonist Start: 12-03-2019 End: 12-06-2019 take 5-10 mg by mouth every four hours as needed for pain Oxycodone 5 MG tablet Discontinued 5 - 10 mg PO EVERY 4 HOURS NEEDED as needed for Pain Score 4-10/10 30 3 0 December 03, 2019 December 05, 2019 12:00am December 06, 2019 12:02am Presence of right artificial hip joint pantoprazole (2 sources) Proton Pump Inhibitor Start: 04-08-2024 End: 04-08-2024 pantoprazole (ProtoNix) EC tablet 40 mg Pen Needle, Diabetic (2 sources) Start: 09-21-2015 End: 10-25-2017 Pen Needle, Diabetic Discontinued 1 EACH MC 5 TIMES DAILY 150 September 21, 2015 3:23pm October 25, 2017 3:24pm Start: 09-21-2015 End: 10-25-2017 Pen Needle, Diabetic Discont inued 1 EACH MC 5 TIMES DAILY 150 September 21, 2015 1:00am October 25, 2017 3:24pm Pen Needle, Diabetic 1 EACH needle (5 sources) Start: 09-21-2015 End: 10-25-2017 Pen Needle, Diabetic 1 EACH needle Discontinued 1 NMA MC 5 TIMES DAILY 150 0 September 21, 2015 1:00am October 25, 2017 3:24pm Start: 09-21-2015 End: 10-25-2017 Pen Needle, Diabetic 1 EACH needle Discontinued 1 NMA MC 5 TIMES DAILY 150 September 21, 2015 1:00am October 25, 2017 3:24pm microencapsulated potassium chloride 10 meq extended release oral tablet (2 sources) Start: 04-06-2024 End: 04-06-2024 20 mEq, Oral, Once, On Sat04/06/24 at 1630, For 1 dose, Best given with food and plenty of water to minimize gastric irritation. Do not crush or chew. raNITIdine 150 mg oral tablet (1 source) Histamine-2 Receptor Antagonist Start: 03-26-2016 End: 07-01-2020 take 1 tablet by mouth once daily as needed ranitidine (ZANTAC) 150 mg tablet Indications: Acid indigestion Take 1 tablet by mouth once daily as needed (Attempting to wean prilosec). 30 tablet 3 03/26/2016 07/01/2020 Discontinued 5 ml sodium chloride 9 mg/ml injection (4 sources) Start: 04-06-2024 End: 04-07-2024 10 mL, IntraVENous, Every 12 hours scheduled (2 times per day), First dose on Sat04/06/24 at 2100, Recovery (only) Start: 04-06-2024 End: 04-06-2024 take 50 mL intravenously every hour 50 mL/hr, IntraVENous, Continuous, Starting on Sat04/06/24 at 0915, Preprocedure, Upon admission to sameday - please start iv if patient does not have iv access. vancomycin (Vancocin) 1,000 mg in sodium chloride 0.9 % 250 mL IVPB (2 sources) Start: 04-07-2024 End: 04-07-2024 1,000 mg, IntraVENous, at 16 6.7 mL/hr, Administer over 90 Minutes, Once, On Sat04/07/24 at 1215, For 1 dose, Preprocedure, Please send to EP lab [facility] bag, Suspected Indication (Select all that apply): Surgical Prophylaxis Problems Active Problems Problem Classification Problem Date Documented Date Episodic/Chronic Cardiac dysrhythmias (20 sources) Atrial fibrillation with rapid ventricular response; Translations: [Unspecified atrial fibrillation] Onset: 08-29-2015 Chronic Comment on above: sepsis and DKA Conduction disorders (20 sources) Right bundle branch block; Translations: [Unspecified right bundle-branch block] Onset: 03-17-2024 04-07-2024 Chronic Diabetes mellitus with complications (20 sources) Hyperlipidemia; Translations: [Type 2 diabetes mellitus with other specified complication] Onset: 10-12-2005 05-08-2017 Chronic Diabetes mellitus without complication (20 sources) Diabetes mellitus; Translations: [Type 2 diabetes mellitus without complications] Onset: 10-20-2007 Chronic Disorders of lipid metabolism (2 sources) Hyperlipidemia, unspecified; Translations: [Hyperlipidemia associated with type 2 diabetes mellitus (HCC)] Onset: 05-08-2017 Chronic Essential hypertension (20 sources) Essential hypertension; Translations: [Essential (primary) hypertension] Onset: 10-12-2005 Chronic Heart valve disorders (20 sources) Aortic valve calcification; Translations: [Nonrheumatic aortic valve disorder, unspecified] Onset: 12-07-2021 Chronic Comment on above: TAVR 04/06/2024: Ryan odell MAKENZIE 3 transcatheter bioprosthetic aortic valve with a size of 23mm Immunizations and screening for infectious disease (3 sources) Vaccination needed; Translations: [Encounter for immunization] Episodic Malaise and fatigue (7 sources) Fatigue; Translations: [Other fatigue] 11-03-2020 Episodic Osteoarthritis (20 sources) Degenerative joint disease involving multiple joints; Translations: [Polyosteoarthritis, unspecified] Onset: 05-10-2008 Resolved: 10-25-2023 05-12-2018 Chronic Other connective tissue disease (20 sources) History of repair of hip joint; Translations: [Presence of right artificial hip joint] Onset: 12-23-2019 12-23-2019 Chronic Other connective tissue disease (1 source) Plantar fasciitis of right foot; Translations: [Plantar fascial fibromatosis] Episodic Other connective tissue disease (1 source) Falls; Translations: [Repeated falls] 02-25-2024 Episodic Other lower respiratory disease (2 sources) Cough; Translations: [Acute cough] Episodic Other lower respiratory disease (1 source) Cough; Translations: [Acute cough] 07-31-2022 Episodic Other nervous system disorders (20 sources) Walking difficulty due to lower leg; Translations: [Difficulty in walking, not elsewhere classified] 11-28-2018 Chronic Other nervous system disorders (15 sources) Difficulty walking; Translations: [Difficulty in walking, not elsewhere classified] 11-28-2018 Chronic Other nervous system disorders (1 source) Abnormal gait; Translations: [Unspecified abnormalities of gait and mobility] 02-25-2024 Episodic Other nutritional; endocrine; and metabolic disorders (8 sources) Body mass index 40+ - severely obese; Translations: [Morbid (severe) obesity due to excess calories] 09-04-2021 Chronic Other nutritional; endocrine; and metabolic disorders (6 sources) Obesity; Translations: [Obesity, unspecified] 02-12-2022 Chronic Other nutritional; endocrine; and metabolic disorders (1 source) Obesity, unspecified; Translations: [Obesity, unspecified] Chronic Other nutritional; endocrine; and metabolic disorders (20 sources) Severe obesity; Translations: [Morbid (severe) obesity due to excess calories] 12-17-2022 Chronic Residual codes; unclassified (18 sources) Daytime somnolence; Translations: [Other hypersomnia] Onset: 03-10-2024 03-10-2024 Chronic Residual codes; unclassified (2 sources) Other hypersomnia; Translations: [Other hypersomnia] Onset: 03-10-2024 Chronic Residual codes; unclassified (1 source) Edema of the upper extremity ; Translations: [Localized edema] 09-29-2024 Episodic Spondylosis; intervertebral disc disorders; other back problems (2 sources) Sciatica; Translations: [Sciatica, unspecified side] Onset: 01-11-2025 01-11-2025 Episodic Unclassified (2 sources) Cardiac Valve Problem; Translations: [Cardiac Valve Problem] Onset: 03-10-2024 Unclassified (2 sources) New Patient; Translations: [New Patient] Onset: 03-10-2024 Past or Other Problems Problem Classification Problem Date Documented Date Episodic/Chronic Cardiac dysrhythmias (20 sources) Tachycardia; Translations: [Tachycardia, unspecified] Onset: 04-03-2005 Resolved: 10-25-2023 04-16-2006 Episodic Conditions associated with dizziness or vertigo (20 sources) Dizziness; Translations: [Dizziness and giddiness] Onset: 03-10-2024 03-10-2024 Episodic Other aftercare (18 sources) Polypharmacy ; Translations: [Other penitentiary (current) drug therapy] Onset: 03-10-2024 4 Episodic Other aftercare (2 sources) Other penitentiary (current) drug therapy; Translations: [Other petroleum terminal plant operator (current) drug therapy] Onset: 03-10-2024 Episodic Other aftercare (1 source) Encounter for therapeutic drug level monitoring; Translations: [Encounter for therapeutic drug monitoring] Onset: 02-19-2024 Episodic Other connective tissue disease (1 source) Repeated falls; Translations: [Falling episodes] Onset: 02-25-2024 Episodic Other disorders of stomach and duodenum (20 sources) Indigestion; Translations: [Functional dyspepsia] Onset: 03-26-2016 03-26-2016 Episodic Other hematologic conditions (20 sources) Secondary polycythemia; Translations: [Secondary polycythemia] Onset: 03-28-2011 07-24-2021 Episodic Other nervous system disorders (16 sources) Impaired cognition; Translations: [Other symptoms and signs involving cognitive functions and awareness] Onset: 02-25-2024 02-25-2024 Episodic Other nervous system disorders (1 source) Other symptoms and signs involving cognitive functions and awareness; Translations: [Cognitive impairment] Onset: 02-25-2024 Episodic Other nervous system disorders (1 source) Unspecified abnormalities of gait and mobility; Translations: [Abnormality of gait] Onset: 02-25-2024 Episodic Other non-traumatic joint disorders (17 sources) Pain in lower limb; Translations: [Pain in unspecified knee] Onset: 04-21-2007 Resolved: 12-15-2010 12-15-2010 Episodic Other screening for suspected conditions (not mental disorders or infectious disease) (20 sources) Patient encounter status; Translations: [Encounter for screening mammogram for malignant neoplasm of breast] Onset: 10-20-2007 Resolved: 01-05-2016 Episodic Residual codes; unclassified (18 sources) Amnesia; Translations: [Other amnesia] Onset: 03-10-2024 03-10-2024 Episodic Residual codes; unclassified (2 sources) Other amnesia; Translations: [Other amnesia] Onset: 03-10-2024 Episodic Screening and history of mental health and substance abuse codes (2 sources) Encounter for screening for depression; Translations: [Encounter for screening examination for other mental health and behavioral disorders] Onset: 02-25-2024 Episodic Viral infection (7 sources) COVID-19; Translations: [Severe acute respiratory syndrome coronavirus 2 (SARS-CoV-2) detected] Onset: 05-19-2020 11-03-2020 Episodic Results Test Name Value Interpretation Reference Range Facility Cardiology Visit Reporton Cardiology Visit Report [facility] [address] [place] [address] OFFICE VISIT Date of Service: 02/08/25 MR#: [id number] Acct: [id number] Name: LITO GONZALEZ Rep #: [id number] : 1950 Provider: LANI Cartagena Age/Sex: 74/F Location: [facility] Status: Signed HPI HPI History of Present Illness Details: Lito Gonzalez is a 74-year-old female who presents to office today for follow-up for monitoring her cardiovascular health. She has a history of hypertension, SVT, paroxysmal atrial fibrillation, aortic sclerosis and mild stenosis. She is status post TAVR 04/06/2024. Patient had a pacemaker placed at that time as well secondary to intermittent complete heart block observed while hospitalized. Upon presentation today, patient reports right LE edema from her ankle to her toes that is chronic and unchanged over the past 5 years. She reports her feels her breathing is much better now when she is sleeping. Further ROS below. Intake Vital Signs 12/03/23 13:08 06/01/24 13:38 02/08/25 10:29 Height 5 ft 5 ft 5 ft Weight: 230 lb BMI 44.9 BP 129/79 H Blood Pressure Location Lt brachial Position Sitting Respiration 18 Pulse 95 Pulse Source Monitor Pulse Oximetry (%) 97 Intake Visit Reasons: 1 Y FU/BARON @ 10 Air Chipper Required: No Is patient in pain?: No Allergies atorvastatin (From Lipitor) Allergy (Intermediate, Verified 02/08/25 10:33) Rash Medications ???Medication ???Instructions ???Recorded ???Confirmed ???Type calcium carbonate (Calcium 500) 500 mg PO DAILY supplement 9 02/08/25 History glucosamine HCl 1,500 mg tablet 1,500 mg PO DAILY 04/26/20 5 History metoprolol succinate 25 mg 50 mg PO DAILY bp 06/01/24 5 History tablet,extended release 24 hr glimepiride 2 mg tablet 4 mg PO BID 06/02/24 02/08/25 Hist ory metformin 500 mg tablet 1,000 mg PO BID diabetes 06/02/24 02/08/25 History apixaban 5 mg tablet (Eliquis) 5 mg PO BID #180 tabs 02/08/25 Rx losartan 50 mg tablet 50 mg PO QDAY 02/08/25 02/08/25 Hi story Ejection fraction %: 65 Have you fallen in the past year?: Yes PFSH Medical History Intermittent complete heart block Presence of cardiac pacemaker Obesity Diabetes COVID-19 virus detected (05/19/20) Atrial fibrillation with rapid ventricular response (08/2015) Right bundle branch block (RBBB) Type 2 diabetes mellitus Nonrheumatic aortic (valve) stenosis Essential (primary) hypertension Microcalcification of left breast on mammogram Abnormal mammogram of left breast Sepsis Diverticulitis Encephalopathy DKA (diabetic ketoacidoses) Arthritis Aortic valve calcification Diabetes type 2, uncontrolled Morbid obesity Surgical History History of right hip replacement (12/02/19) history left breast stereotactic biopsy (02/10/18) History of total right knee replacement (TKR) History of total left knee replacement (01/31/09) History of total hysterectomy History of appendectomy Family History Father COPD (chronic obstructive pulmonary disease) CAD (coronary artery disease) Mother Cancer Breast cancer Social History Smoking Status: Never smoker second hand exposure: No alcohol intake: never substance use type: does not use caffeine: No what type of physical activity do you participate in: none frequency: does not exercise seatbelt use: always ROS Const Const: Negative for fatigue or weakness Eyes Eyes: Negative for change in vision ENT ENT: Negative for dizziness or balance problems Cardio Chest Pain: No Palpitations: No Edema: Right and None Resp Respiratory: Negative for SOB with activity, SOB at rest or SOB orthopnea SOB lying down GI GI: Negative nausea or heartburn Musc Musc: Negative for balance problems Neuro Neuro: Negative for dizziness, lightheadedness, near syncope, syncope or weakness Endo Endo: Negative for fatigue Cardiology Exam Const Appearance: cooperative, comfortable, no acute distress and well developed; Negative diaphoretic or ill appearing Nutritional Appearance: obese Orientation: alert and oriented x3 Ambulating via wheelchair Head Head: normal to inspection, normocephalic and atraumatic Ears: hearing grossly normal bilaterally Nose: external nose normal and Negative epistaxis Face and Sinus: face symmetric Eyes General: appearance normal, both eyes and all related structures Eyelids: eyelids normal Conjunctivae: conjunctivae normal; Negative scleral icterus EOM: EOM intact bilaterally Neck Neck: no JVD Carot (more content not included)... Normal [facility] Pacemaker Checkon 02-08-2025 Pacemaker Check [facility] [address] [place] [address]. [address] [place] [address] Pacemaker Check Date of Service: 02/08/25 1334 MR#: [id number] Acct: [id number] Name: LITO GONZALEZ Rep #: [id number] : 1950 From: Hilary Jackman Age/Sex: 74/F Location: [facility] Status: Signed Billing Codes PM Device Codes: 82021 PM Dev Prog Eval, Dual Assessment and Plan Assessment and Plan (1) Paroxysmal atrial fibrillation: Status: Acute (2) Intermittent complete heart block: Status: Acute (3) Presence of cardiac pacemaker: Status: Chronic 02/08/25 1335 Date Hilary Espinoza Signature: Date (if applicable) CC: Normal [facility] CNOVon 01-11-2025 CNOV Office Visit (INTMWS ) LITO GONZALEZ ([id number]) 1950 F Date Time Provider Department 01/11/25 11:20 AM KAMLESH ACOSTA During your visit today, we recorded the following information about you: Pulse Blood pressure Weight 108/minute 120/78 110.4 kg Kamlesh Acosta APRN.WALL MAN 01/11/2025 12:32 PM Signed SUBJECTIVE Lito Gonzalez is a 74 year old female here today for a check up on her medical problems. Chief Complaint Patient presents with: Recheck: Oxempic was unable to tolerate the 0.5 mg as it did cause constipation but at 0.25 mg she is back to normal. HPI Lito Gonzalez is a 74 year old female. She is an established patient of Abby Mcclellan MD. Here today for follow up on her DM. Last visit we increased Ozempic. She had to decrease her Ozempic back down to the 0.25 mg dose because of issues with the 0.5 mg dose causing constipation. Not checking her sugars right now. Has labs ordered but has not completed them. Taking Aleve because of low back pain, thinks she is having issues with sciatic pain. Her medications were reviewed today and her list is now up to date. Medications Current Outpatient Medications Medication Sig semaglutide (OZEMPIC) 0.25 mg or 0.5 mg (2 mg/3 mL) pen Inject 0.5 mg subcutaneously one time a week. ELIQUIS 5 mg tab(s) Take 5 mg by mouth two times a day. metFORMIN (GLUCOPHAGE) 500 mg tablet Take 1 tablet by mouth two times a day with meals. glimepiride (AMARYL) 4 mg tablet Take 1 tablet by mouth two times a day with meals. metoprolol succinate ER (TOPROL XL) 25 mg 24 hr tablet Take 1 tablet by mouth once daily. (Dr. Hubbard) BRANNON-600 WITH VITAMIN D 600 MG-200 UNIT TAB Take one(1) tablet two(2) times daily. GLUCOSAMINE 1,000 MG ORAL TAB Take one(1) tablet daily. flaxseed oil (OMEGA 3 ORAL) Take 2 capsules by mouth two times a day. blood sugar diagnostic (BLOOD GLUCOSE TEST) test strip Test blood sugar(s) 1 time daily as directed. Dx: Type 2 DM - Controlled E11.9 Insulin: No traMADol (ULTRAM) 50 mg tablet Take 1 tablet by mouth three times a day as needed for pain for up to 7 days. Blood-Glucose Meter 1 device as directed. For daily fasting am glucose checks. Not on insulin empagliflozin (JARDIANCE) 10 mg tablet Take 1 tablet by mouth daily with breakfast. Walker misc Trio Rolling Walker Lancets lancets Test blood sugar(s) 4 times daily. Dx: Type 2 DM - Uncontrolled E11.65 Insulin: Yes No current facility-administered medications for this visit. ALLERGIES Allergen Reactions Lipitor [Atorvastat* Rash red itchy rash around neck--resolved after stopping med; hands froze with stiffness that started a week after taking a couple pills--resolving ACTIVE PROBLEM LIST Cardiac Pacemaker - 09/29/2024 Cognitive Impairment - 02/25/2024 Paf (Paroxysmal Atrial Fibrillation) ([facility]) - 12/07/2021 Comment: [facility] Nonrheumatic Aortic Valve Stenosis - 12/07/2021 Comment: [facility], echo [facility] Status Post Right Hip Replacement - 12/23/2019 Difficulty in Walking Involving Lower Leg Joint Acid Indigestion - 03/26/2016 Polycythemia, Secondary - 03/28/2011 Comment: This was abnormal, seen by , testing was normal. Generalized Osteoarthrosis, Involving Multiple Sites - 05/10/2008 Diabetes Mellitus ([facility]) - 10/20/2007 Hypertension Goal Bp (Blood Pressure) < 140/90 - 10/12/2005 Hyperlipidemia Associated With Type 2 Diabetes Mellitus ([facility]) - 10/12/2005 Class 3 Severe Obesity Due to Excess Calories With Body Mass Index (Bmi) of 45.0 to 49.9 in Adult ([facility]) Social History Tobacco Use Smoking status: Never Smokeless tobacco: Never Substance Use Topics Alcohol use: No Drug use: No Review of Systems Respiratory: Negative. Cardiovascular: Negative. Musculoskeletal: Positive for back pain. OBJECTIVE BP 120/78 Pulse 108 Wt 243 lb 6.2 oz (110.4kg) SpO2 97% Physical Exam Vitals and nursing note reviewed. Constitutional: General: She is awake. She is not in acute distress. Appearance: Normal appearance. She is well-developed and well-groomed. She is not ill-appearing, toxic-appearing or diaphoretic. HENT: Head: Normocephalic. Right Ear: External ear normal. Left Ear: External ear normal. Nose: Nose normal. Eyes: General: Vision grossly intact. Conjunctiva/sclera: Conjunctivae normal. Pupils: Pupils are equal, round, and reactive to light. Neck: Vascular: No JVD. Trachea: Trachea normal. Cardiovascular: Rate and Rhythm: Normal rate and regular rhythm. Pulses: Normal pulses. Heart sounds: Normal heart sounds. No murmur heard. Pulmonary: Effort: Pulmonary effort is normal. No accessory muscle usage, prolonged expiration or respiratory distress. Breath sounds: Normal breath sounds. Musculoskeletal: Cervical back: Neck supple. Skin: General: Skin is warm and dry. Capillary Refill: Capi (more content not included)... Normal [facility] 01-07-2025 CNPN Telephone (INTMWS) LITO GONZALEZ ([id number]) 1950 F Date Time Provider Department 01/07/25 ABBY MCCLELLAN INTWS During your visit today, we recorded the following information about you: Loretta Guerin RN 01/11/2025 12:25 PM Addendum Patient calls and states that she has appointment with Kamlesh on 01/11/2025. Patient is asking about labs to be done prior to appointment? Please review and advise, STORM Rocha Stephanie, RN 01/11/2025 12:25 PM Signed Patient saw Kamlesh today 01/11/2025. Loretta Guerin RN Allergies As of Date: 01/07/2025 Noted Allergy Reaction LIPITOR (ATORVASTATIN) 06/27/2016 2 - Rash Comments: red itchy rash around neck--resolved after stopping med; hands froze with stiffness that started a week after taking a couple pills--resolving Date Reviewed: 11/10/2024 Reviewed by: Kamlesh Acosta APRN.WALL MAN - Fully Assessed Reason for Visit: Lab Orders [[id number]] Primary Visit Diagnosis:Type 2 diabetes mellitus with hyperglycemia, without long-term current use of insulin (HCC) [E11.65] Other Visit Diagnoses:Hyperlipide shruti associated with type 2 diabetes mellitus (HCC) [E11.69, E78.5] Hypertension goal BP (blood pressure) < 140/90 [I10] Prescriptions as of 01/11/2025 - flaxseed oil (OMEGA 3 ORAL) Take 2 capsules by mouth two times a day. - blood sugar diagnostic (BLOOD GLUCOSE TEST) test strip Test blood sugar(s) 1 time daily as directed. Dx: Type 2 DM - Controlled E11.9 Insulin: No - traMADol (ULTRAM) 50 mg tablet Take 1 tablet by mouth three times a day as needed for pain for up to 7 days. - Blood-Glucose Meter 1 device as directed. For daily fasting am glucose checks. Not on insulin - empagliflozin (JARDIANCE) 10 mg tablet Take 1 tablet by mouth daily with breakfast. - semaglutide (OZEMPIC) 0.25 mg or 0.5 mg (2 mg/3 mL) pen Inject 0.5 mg subcutaneously one time a week. - ELIQUIS 5 mg tab(s) Take 5 mg by mouth two times a day. - metFORMIN (GLUCOPHAGE) 500 mg tablet Take 1 tablet by mouth two times a day with meals. - glimepiride (AMARYL) 4 mg tablet Take 1 tablet by mouth two times a day with meals. - metoprolol succinate ER (TOPROL XL) 25 mg 24 hr tablet Take 1 tablet by mouth once daily. (Dr. Hubbard) - [facility] Tri[facility] Walker - Lancets lancets Test blood sugar(s) 4 times daily. Dx: Type 2 DM - Uncontrolled E11.65 Insulin: Yes - BRANNON-600 WITH VITAMIN D 600 MG-200 UNIT TAB Take one(1) tablet two(2) times daily. - GLUCOSAMINE 1,000 MG ORAL TAB Take one(1) tablet daily. Problem List As Of Date 01/07/2025 Noted Resolved Class 3 severe obesity due to excess calories w* Tachycardia, unspecified [R00.0] 04/03/2005 10/25/2023 Hypertension goal BP (blood pressure) < 140/90 *10/12/2005 Hyperlipidemia associated with type 2 diabetes *10/12/2005 Pain in joint, lower leg [M25.569] 04/21/2007 12/15/2010 Nonspecific abnormal results of liver function *10/20/2007 03/04/2012 Diabetes mellitus (HCC) [E11.9] 10/20/2007 Generalized OA [M15.9] 05/10/2008 10/25/2023 Polycythemia, secondary [D75.1] 03/28/2011 Colon cancer screening [Z12.11] 01/05/2016 01/05/2016 Acid indigestion [K30] 03/26/2016 Difficulty in walking involving lower leg joint* Generalized osteoarthrosis, involving multiple *05/10/2008 Status post right hip replacement [Z96.641] 12/23/2019 PAF (paroxysmal atrial fibrillation) (HCC) [I48*12/07/2021 Nonrheumatic aortic valve stenosis [I35.0] 12/07/2021 Cognitive impairment [R41.89] 02/25/2024 Cardiac pacemaker [Z95.0] 09/29/2024 Encounter Status:Closed by LORETTA GUERIN on 01/11/25 [facility] CNEnedelia 11-10-2024 CNOV Office Visit (INTMWS ) GELY GONZALEZA ([id number]) 1950 F Date Time Provider Department 11/10/24 11:20 AM KAMLESH ACOSTA INTRuizWS During your visit today, we recorded the following information about you: Pulse Blood pressure Weight 84/minute 128/74 108.8 kg Kamlesh Acosta APRN.WALL MAN 11/10/2024 1:23 PM Signed SUBJECTIVE Lito Gonzalez is a 74 year old female here today for a check up on her medical problems. Chief Complaint Patient presents with: Recheck HPI Lito Gonzalez is a 74 year old female. She is an established patient of Abby Mcclellan MD. Here today for follow up. Last visit we started her on Ozempic to improve DM control. She reports few side effects, really the only issue with the medication is she is having some occasional constipation. Treating with Herb lax daily and prunes for constipation. Working on diet. She has had no symptoms of hypoglycemia. She has noticed some weight loss. Overall feeling well. Trying to watch cholesterol intake. Her medications were reviewed today and her list is now up to date. She is compliant on taking her medications: Yes She is tolerating her medication(s) without side effects: Yes She is following an appropriate diet for her medical problems: Yes She is getting some exercise in? Yes- has stationarity bike but has back pain and has not used in a few weeks. She has visited another health care provider since being seen last? :N/A She has had a visit to the emergency department or hospital since being seen last? Yes Medications Current Outpatient Medications Medication Sig ELIQUIS 5 mg tab(s) Take 5 mg by mouth two times a day. metFORMIN (GLUCOPHAGE) 500 mg tablet Take 1 tablet by mouth two times a day with meals. glimepiride (AMARYL) 4 mg tablet Take 1 tablet by mouth two times a day with meals. metoprolol succinate ER (TOPROL XL) 25 mg 24 hr tablet Take 1 tablet by mouth once daily. (Dr. Hubbard) BRANNON-600 WITH VITAMIN D 600 MG-200 UNIT TAB Take one(1) tablet two(2) times daily. GLUCOSAMINE 1,000 MG ORAL TAB Take one(1) tablet daily. semaglutide (OZEMPIC) 0.25 mg or 0.5 mg (2 mg/3 mL) pen Inject 0.5 mg subcutaneously one time a week. blood sugar diagnostic (BLOOD GLUCOSE TEST) test strip Test blood sugar(s) 1 time daily as directed. Dx: Type 2 DM - Controlled E11.9 Insulin: No Blood-Glucose Meter (TRUE METRIX GLUCOSE METER) 1 Each as directed. Walker misc Trio Rolling Walker Lancets lancets Test blood sugar(s) 4 times daily. Dx: Type 2 DM - Uncontrolled E11.65 Insulin: Yes No current facility-administered medications for this visit. ALLERGIES Allergen Reactions Lipitor [Atorvastat* Rash red itchy rash around neck--resolved after stopping med; hands froze with stiffness that started a week after taking a couple pills--resolving ACTIVE PROBLEM LIST Cardiac Pacemaker - 09/29/2024 Cognitive Impairment - 02/25/2024 Paf (Paroxysmal Atrial Fibrillation) (Formerly [facility]) - 12/07/2021 Comment: [facility] Nonrheumatic Aortic Valve Stenosis - 12/07/2021 Comment: [facility], echo 2021 [facility] Status Post Right Hip Replacement - 12/23/2019 Difficulty in Walking Involving Lower Leg Joint Acid Indigestion - 03/26/2016 Polycythemia, Secondary - 03/28/2011 Comment: This was abnormal, seen by , testing was normal. Generalized Osteoarthrosis, Involving Multiple Sites - 05/10/2008 Diabetes Mellitus (Former[facility]) - 10/20/2007 Hypertension Goal Bp (Blood Pressure) < 140/90 - 10/12/2005 Hyperlipidemia Associated With Type 2 Diabetes Mellitus ([facility]) - 10/12/2005 Class 3 Severe Obesity Due to Excess Calories With Body Mass Index (Bmi) of 45.0 to 49.9 in Adult (Formerly [facility]) Social History Tobacco Use Smoking status: Never Smokeless tobacco: Never Substance Use Topics Alcohol use: No Drug use: No Review of Systems Respiratory: Negative. Cardiovascular: Negative. Gastrointestinal: Positive for constipation. Negative for abdominal pain and diarrhea. OBJECTIVE BP 128/74 Pulse 84 Wt 239 lb 13.8 oz (108.8kg) SpO2 98% Physical Exam Vitals and nursing note reviewed. Constitutional: General: She is awake. She is not in acute distress. Appearance: Normal appearance. She is well-developed and well-groomed. She is not ill-appearing, toxic-appearing or diaphoretic. HENT: Head: Normocephalic. Right Ear: External ear normal. Left Ear: External ear normal. Nose: Nose normal. Eyes: General: Vision grossly intact. Conjunctiva/sclera: Conjunctivae normal. Pupils: Pupils are equal, round, and reactive to light. Neck: Vascular: No JVD. Trachea: Trachea normal. Cardiovascular: Rate and Rhythm: Normal rate and regular rhythm. Pulses: Normal pulses. Heart sounds: Normal heart sounds. No murmur heard. Pulmonary: Effort: Pulmonary effort is normal. No accessory muscle usage, prolonged expiration or respiratory distress. (more content not included)... Normal [facility] CNOVon 09-29-2024 CNOV Office Visit (INTMWS ) LITO GONZALEZ ([id number]) 1950 F Date Time Provider Department 09/29/24 11:40 AM KAMLESH ACOSTA INTMWS During your visit today, we recorded the following information about you: Pulse Blood pressure Weight 96/minute 106/72 111.2 kg Kamlesh Acosta APRN.WALL MAN 09/29/2024 1:05 PM Signed SUBJECTIVE Lito Gonzalez is a 74 year old female here today for a check up on her medical problems. Chief Complaint Patient presents with: Recheck: swelling in left arm compared to right No injury that she is aware and no pain HPI Lito Gonzalez is a 74 year old female. She is an established patient of Abby Mcclellan MD. Here today for routine follow up. S/p TAVR on 04/06/2024. Had her heart surgery, had a pacemaker placed the next day. Notes some mild edema in the left upper extremity, no pain, redness or tenderness. This has been slight since she is post pacemaker placement. Seeing [facility] for cardiology follow up. She had labs done 09/19. Lito Gonzalez is a 74 year old female here today for a check up on her diabetes. She is compliant on taking her medications :Yes but she is having some diarrhea with her metformin. She has been checking fingerstick blood sugars: Yes Denies difficulty with this skill. Any low blood sugar reactions? No Denies increased urinating, eating, and drinking. Most recent HbA1c tests were: Lab Results Component Value Date HBA1C 8.9 (H) 09/19/2024 HBA1C 7.9 (H) 02/19/2024 HBA1C 7.7 (H) 10/18/2023 Her medications were reviewed today and her list is now up to date. Medications Current Outpatient Medications Medication Sig ELIQUIS 5 mg tab(s) Take 5 mg by mouth two times a day. glimepiride (AMARYL) 4 mg tablet Take 1 tablet by mouth two times a day with meals. metoprolol succinate ER (TOPROL XL) 25 mg 24 hr tablet Take 1 tablet by mouth once daily. (Dr. Hubbard) BRANNON-600 WITH VITAMIN D 600 MG-200 UNIT TAB Take one(1) tablet two(2) times daily. GLUCOSAMINE 1,000 MG ORAL TAB Take one(1) tablet daily. metFORMIN (GLUCOPHAGE) 500 mg tablet Take 1 tablet by mouth two times a day with meals. semaglutide (OZEMPIC) 0.25 mg or 0.5 mg (2 mg/3 mL) pen Inject 0.25 mg subcutaneously one time a week. blood sugar diagnostic (BLOOD GLUCOSE TEST) test strip Test blood sugar(s) 1 time daily as directed. Dx: Type 2 DM - Controlled E11.9 Insulin: No Blood-Glucose Meter (TRUE METRIX GLUCOSE METER) 1 Each as directed. Walker misc Trio Rolling Walker Lancets lancets Test blood sugar(s) 4 times daily. Dx: Type 2 DM - Uncontrolled E11.65 Insulin: Yes No current facility-administered medications for this visit. ALLERGIES Allergen Reactions Lipitor [Atorvastat* Rash red itchy rash around neck--resolved after stopping med; hands froze with stiffness that started a week after taking a couple pills--resolving ACTIVE PROBLEM LIST Cardiac Pacemaker - 09/29/2024 Cognitive Impairment - 02/25/2024 Paf (Paroxysmal Atrial Fibrillation) (Former[facility]) - 12/07/2021 Comment: [facility] Nonrheumatic Aortic Valve Stenosis - 12/07/2021 Comment: [facility], echo 2021 [facility] Status Post Right Hip Replacement - 12/23/2019 Difficulty in Walking Involving Lower Leg Joint Acid Indigestion - 03/26/2016 Polycythemia, Secondary - 03/28/2011 Comment: This was abnormal, seen by , testing was normal. Generalized Osteoarthrosis, Involving Multiple Sites - 05/10/2008 Diabetes Mellitus ([facility]) - 10/20/2007 Hypertension Goal Bp (Blood Pressure) < 140/90 - 10/12/2005 Hyperlipidemia Associated With Type 2 Diabetes Mellitus ([facility]) ([facility]) - 10/12/2005 Class 3 Severe Obesity Due to Excess Calories With Body Mass Index (Bmi) of 45.0 to 49.9 in Adult ([facility]) Social History Tobacco Use Smoking status: Never Smokeless tobacco: Never Substance Use Topics Alcohol use: No Drug use: No Review of Systems Constitutional: Negative. Respiratory: Negative. Cardiovascular: Negative. OBJECTIVE BP 106/72 Pulse 96 Wt 245 lb 2.4 oz (111.2kg) SpO2 97% Physical Exam Vitals and nursing note reviewed. Constitutional: General: She is awake. She is not in acute distress. Appearance: Normal appearance. She is well-developed and well-groomed. She is not ill-appearing, toxic-appearing or diaphoretic. HENT: Head: Normocephalic. Right Ear: External ear normal. Left Ear: External ear normal. Nose: Nose normal. Eyes: General: Vision grossly intact. Conjunctiva/sclera: Conjunctivae normal. Pupils: Pupils are equal, round, and reactive to light. Neck: Vascular: No JVD. Trachea: Trachea normal. Cardiovascular: Rate and Rhythm: Normal rate and regular rhythm. Pulses: Normal pulses. Heart sounds: Normal heart sounds. No murmur heard. Pulmonary: Effort: Pulmonary effort is normal. No accessory muscle usage, prolonged expiration or respiratory distress. Leydi (more content not included)... Normal [facility] ALBUMIN/CREATININE RATIO, UR INEon 09-19-2024 Albumin DL <= 20 mg/L (U) [Mass/Vol] mg/dL Normal [facility] Comment on above: Order Comment: Speci men Type: URINE SPECIMENOrdering Facility: [facility] Address: [address] [place] [address] Performed By: #### U ACR ####[facility] LABCLIA [id number] [facility] [id number] [place] [address] [place] Albumin/Creatinine (U) [Mass ratio] <13 Normal <30 [facility] Comment on above: Order Comment: Speci men Type: URINE SPECIMENOrdering Facility: [facility] Address: [address] [place] [address] Result Comment: Adul t Male and Female Nephrotic Criteria: <30 mg/g is considered normal to mildly increased 30-300 mg/g is considered moderately increased >300 mg/g is considered severely increased KDIGO. (2013). KDIGO 2012 Clinical Practice Guideline for the Evaluation and Management of Chronic Kidney Disease. Official Journal of the International Society of Nephrology, 3(1), 1-150. Performed By: #### U ACR ####[facility] LABCLIA [id number] [place] [address] [place] Creatinine (U) [Mass/Vol] 95.1 mg/dL Normal 20.0-300.0 [facility] Comment on above: Order Comment: Speci men Type: URINE SPECIMENOrdering Facility: [facility] Address: [address] [place] [address] Performed By: #### U ACR ####[facility] LABCLIA [id number] [place] [address] [place] Comprehensive metabolic 2000 panelon 09-19-2024 Albumin [Mass/Vol] 4.3 g/dL Normal 3.9-4.9 [facility] Comment on above: Order Comment: Speci men Type: BLOOD SPECIMENOrdering Facility: [facility] Address: [address] [place] [address] Performed By: #### 2 4323-8, 33246-9 ####[facility] LABCLIA [id number] [place] [address] [place] ALP [Catalytic activity/Vol] 70 U/L Normal 34-123 [facility] Comment on above: Order Comment: Speci men Type: BLOOD SPECIMENOrdering Facility: [facility] Address: [address] [place] [address] Performed By: #### 2 4323-8, 22890-4 ####[facility] LABCLIA [id number] [place] [id number] [place] ALT [Catalytic activity/Vol] 26 U/L Normal 7-38 [facility] Comment on above: Order Comment: Speci men Type: BLOOD SPECIMENOrdering Facility: [facility] Address: [address] [place] [address] Performed By: #### 2 4323-8, 83887-2 ####[facility] LABCLIA [id number] [place] [id number] [place] Anion gap [Moles/Vol] 13 mmol/L Normal 8-15 [facility] Comment on above: Order Comment: Speci men Type: BLOOD SPECIMENOrdering Facility: [facility] Address: [address] [place] [address] Performed By: #### 2 4323-8, 88337-5 ####[facility] LABCLIA [id number] [place] [address] [place] AST [Catalytic activity/Vol] 21 U/L Normal 13-35 [facility] Comment on above: Order Comment: Speci men Type: BLOOD SPECIMENOrdering Facility: [facility] Address: [address] [place] [address] Performed By: #### 2 4323-8, 96248-6 ####[facility] LABCLIA [id number] [place] [address] [place] Bilirubin [Mass/Vol] 0.5 mg/dL Normal 0.2-1.3 [facility] Comment on above: Order Comment: Speci men Type: BLOOD SPECIMENOrdering Facility: [facility] Address: [address] [place] [address] Performed By: #### 2 4323-8, 44054-3 ####[facility] LABCLIA [id number] [place] [address] [place] Calcium [Mass/Vol] 9.7 mg/dL Normal 8.5-10.2 [facility] Comment on above: Order Comment: Speci men Type: BLOOD SPECIMENOrdering Facility: [facility] Address: [address] [place] [address] Performed By: #### 2 4323-8, 11198-4 ####[facility] LABCLIA [id number] [place] [address] [place] Chloride [Moles/Vol] 104 mmol/L Normal 98-107 [facility] Comment on above: Order Comment: Speci men Type: BLOOD SPECIMENOrdering Facility: [facility] Address: [address] [place] [address] Performed By: #### 2 4323-8, 82479-2 ####[facility] LABCLIA [id number] [place] [address] [place] CO2 [Moles/Vol] 22 mmol/L Normal 22-30 [facility] Comment on above: Order Comment: Speci men Type: BLOOD SPECIMENOrdering Facility: [facility] Address: [address] [place] [address] Performed By: #### 2 4323-8, 73868-7 ####[facility] LABIA [id number] [place] [address] [place] Creatinine [Mass/Vol] 0.84 mg/dL Normal 0.58-0.96 [facility] Comment on above: Order Comment: Speci men Type: BLOOD SPECIMENOrdering Facility: [facility] Address: [address] [place] [address] Performed By: #### 2 4323-8, 89783-5 ####[facility] LABIA [id number] [place] [address] [place] Creatinine and Glomerular filtration rate.predicted panel (S/P/Bld) 72 mL/min/1.73m??? Normal >=60 [facility] Comment on above: Order Comment: Speci men Type: BLOOD SPECIMENOrdering Facility: [facility] Address: [address] [place] [address] Result Comment: Angélica mated Glomerular Filtration Rate (eGFR) is calculated using the 2020 CKD-EPI creatinine equation. This equation utilizes serum creatinine, sex, and age as parameters. The creatinine assay has traceable calibration to isotope dilution-mass spectrometry. Refer to KDIGO guidelines for clinical interpretation. In patients with unstable renal function, e.g. those with acute kidney injury, the eGFR may not accurately reflect actual GFR. Performed By: #### 2 4323-8, 14467-2 ####[facility] LABCLIA [id number] [place] [address] [place] Glucose [Mass/Vol] 190 mg/dL High 74-99 [facility] Comment on above: Order Comment: Speci men Type: BLOOD SPECIMENOrdering Facility: [facility] Address: [address] [place] [address] Result Comment: The [place] Diabetes Association (ADA) provides guidance for cutoff values for fasting glucose and random glucose. The ADA defines fasting as no caloric intake for at least 8 hours. Fasting plasma glucose results between 100 to 125 [...] Standards of Medical Care in Diabetes 2016, [place] Diabetes Association. Diabetes Care. 2016.39(Suppl 1). Performed By: #### 2 4323-8, 31578-0 ####[facility] LABCLIA [id number] [place] [address] [place] Potassium [Moles/Vol] 4.3 mmol/L Normal 3.7-5.1 [facility] Comment on above: Order Comment: Speci men Type: BLOOD SPECIMENOrdering Facility: [facility] Address: [address] [place] [address] Performed By: #### 2 4323-8, 26364-7 ####[facility] LABIA [id number] [place] [address] [place] Protein [Mass/Vol] 7.3 g/dL Normal 6.3-8.0 [facility] Comment on above: Order Comment: Speci men Type: BLOOD SPECIMENOrdering Facility: [facility] Address: [address] [place] [address] Performed By: #### 2 4323-8, 16470-3 ####[facility] LABCLIA [id number] [address] [address] [place] Sodium [Moles/Vol] 139 mmol/L Normal 136-144 [facility] Comment on above: Order Comment: Speci men Type: BLOOD SPECIMENOrdering Facility: [facility] Address: [address] [place] [address] Performed By: #### 2 4323-8, 74612-2 ####[facility] LABCLIA [id number] [place] [address] [place] Urea nitrogen [Mass/Vol] 23 mg/dL High 7-21 [facility] Comment on above: Order Comment: Speci men Type: BLOOD SPECIMENOrdering Facility: [facility] Address: [address] [place] [address] Performed By: #### 2 4323-8, 68357-6 ####[facility] LABIA [id number] [place] [address] [place] HbA1c (Bld)on 09-19-2024 Average glucose Estimated from glycated hemoglobin (Bld) [Mass/Vol] 209 mg/dL Normal [facility] Comment on above: Order Comment: Speci men Type: BLOOD SPECIMENOrdering Facility: [facility] Address: [address] [place] [address] Result Comment: eAG: (Estimated average glucose) is a calculated value from HgbA1c and is public utilities 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 of the average blood glucose level in the last 2-3 month period. Performed By: #### 5 5454-3 ####[facility] [id number] [place] [address] [place] HbA1c (Bld) [Mass fraction] 8.9 % High 4.3-5.6 [facility] Comment on above: Order Comment: Speci men Type: BLOOD SPECIMENOrdering Facility: [facility] Address: [address] [place] [address] Result Comment: Amer [place] Diabetes Association guidelines indicate that patients with HgbA1c in the range 5.7-6.4% are at increased risk for development of diabetes, and intervention by lifestyle modification may be beneficial. HgbA1c greater or equal to 6.5% is considered diagnostic of diabetes. Performed By: #### 5 5454-3 ####[facility] LABCLIA [id number] [place] [address] [place] Lipid 1996 panelon 5 Cholesterol [Mass/Vol] 183 mg/dL Normal <200 [facility] Comment on above: Order Comment: Thomas men Type: BLOOD SPECIMENOrdering Facility: [facility] Address: [address] [place] [address] Result Comment: <200 mg/dL, Desirable 200-239 mg/dL, Borderline high >239 mg/dL, High Performed By: #### 2 4323-8, 80974-8 ####[facility] LABCLIA [id number] [address] [place] Cholesterol in HDL [Mass/Vol] 38 mg/dL Low >39 [facility] Comment on above: Order Comment: Thomas shelton Type: BLOOD SPECIMENOrdering Facility: [facility] Address: [address] [place] [address] Result Comment: 40-5 9 mg/dL, Acceptable >59 mg/dL, High: Negative risk factor for coronary heart disease <40 mg/dL, Low: Positive risk factor for coronary heart disease Performed By: #### 2 4323-8, 96796-3 ####[facility] LABCLIA [id number] [place] [address] [place] Cholesterol in LDL [Mass/Vol] 121 mg/dL High <100 [facility] Comment on above: Order Comment: Thomas shelton Type: BLOOD SPECIMENOrdering Facility: [facility] Address: [address] [place] [address] Result Comment: <100 mg/dL, Optimal 100-129 mg/dL, Near optimal/above optimal 130-159 mg/dL, Borderline high 160-189 mg/dL, High >189 mg/dL, Very high Secondary prevention optimal LDL Cholesterol levels are recommended to be < 70 mg/dL Performed By: #### 2 4323-8, 42944-9 ####[facility] LABCLIA [id number] [place] [address] [place] Cholesterol in LDL/Cholesterol in HDL [Mass ratio] 3.18 {ratio} High <2.54 [facility] Comment on above: Order Comment: Speci men Type: BLOOD SPECIMENOrdering Facility: [facility] Address: [address] [place] [address] Result Comment: Refe ludwince: 1. National Cholesterol Education Program ATP III Guideline At-A-Glance Quick Desk Reference: National Heart, Lung, and Blood [place]. National Institutes of Health. 2001: NIH Publication No. 01-3305. 2. An International Atherosclerosis Society position paper: global recommendations for the management of dyslipidemia: executive summary, Atherosclerosis. 2014: 232(2):410-413. Performed By: #### 2 4323-8, 30762-2 ####[facility] LABCLIA [id number] [place] [address] [place] Cholesterol in VLDL [Mass/Vol] 24 mg/dL Normal <30 [facility] Comment on above: Order Comment: Fransiscoi men Type: BLOOD SPECIMENOrdering Facility: [facility] Address: [address] [place] [address] Performed By: #### 2 4323-8, 21785-8 ####[facility] LABCLIA [id number] [place] [id number] [place] Cholesterol non HDL [Mass/Vol] 145 mg/dL High <130 [facility] Comment on above: Order Comment: Fransiscoi men Type: BLOOD SPECIMENOrdering Facility: [facility] Address: [address] [place] [address] Result Comment: <130 mg/dL, Optimal 130-159 mg/dL, Near optimal/above optimal 160-189 mg/dL, Borderline high 190-219 mg/dL, High >219 mg/dL, Very high Secondary prevention optimal non HDL Cholesterol levels are recommended to be <100 mg/dL Performed By: #### 2 4323-8, 42856-4 ####[facility] LABCLIA [id number] [address] [place] Cholesterol.total/Choles terol in HDL [Mass ratio] 4.82 {ratio} Normal <5.10 [facility] Comment on above: Order Comment: Speci men Type: BLOOD SPECIMENOrdering Facility: [facility] Address: [address] [place] [address] Performed By: #### 2 4323-8, 05367-4 ####[facility] LABCLIA [id number] [address] FASTING TIME 12 hrs Normal [facility] Comment on above: Order Comment: Speci men Type: BLOOD SPECIMENOrdering Facility: [facility] Address: [address] [place] [address] Performed By: #### 2 4323-8, 20459-5 ####[facility] LABIA [id number] [address] STATES [facility] Triglyceride [Mass/Vol] 118 mg/dL Normal <150 [facility] Comment on above: Order Comment: Speci men Type: BLOOD SPECIMENOrdering Facility: [facility] Address: [address] [place] [address] Result Comment: <150 mg/dL, Normal 150-199 mg/dL, Borderline high 200-499 mg/dL, High >499 mg/dL, Very high Performed By: #### 2 4323-8, 32895-1 ####[facility] LABCLIA [id number] [place] [address] [place] Elias 08-18-2024 RYAN Telephone (INTMWS) LITO GONZALEZ ([id number]) 1950 F Date Time Provider Department 08/18/24 ABBY MCCLELLAN INTMWS During your visit today, we recorded the following information about you: Barbara Duran 08/18/2024 12:53 PM Signed Lito is calling Abby Mcclellan MD today to request Lab Orders (September appointment) Patient has been identified by name and birthdate. Duration of symptoms: N/A Person calling: self Call patient at: at home [phone] (home) [phone] (cell) Was an appointment scheduled: Yes: Date/Time: 09-29-24 Closing statement: Abby Light MD 08/19/2024 6:13 PM Signed Labs set to August to available for September appointment Included UACR Allergies As of Date: 08/18/2024 Noted Allergy Reaction LIPITOR (ATORVASTATIN) 06/27/2016 2 - Rash Comments: red itchy rash around neck--resolved after stopping med; hands froze with stiffness that started a week after taking a couple pills--resolving Date Reviewed: 02/25/2024 Reviewed by: Kamlesh Acosta APRN.WALL MAN - Fully Assessed Reason for Visit: Lab Orders [1688] Cmt: September appointment Primary Visit Diagnosis:Type 2 diabetes mellitus with other specified complication, without long-term current use of insulin (HCC) [E11.69] Other Visit Diagnoses:Hypertensio n goal BP (blood pressure) < 140/90 [I10] Hyperlipidemia associated with type 2 diabetes mellitus (HCC) ([facility]) [E11.69, E78.5] Order(s):HEMOGLOBIN A1C [MVTZJ5H] Order #: [id number] FUTURE LIPID PANEL BASIC [SQLIPB] Order #: [id number] FUTURE COMPREHENSIVE METABOLIC PANEL [SQCMP] Order #: [id number] FUTURE ALBUMIN/CREATININE RATIO, URINE [SQUACR] Order #: [id number] FUTURE Prescriptions as of 08/20/2024 - metFORMIN (GLUCOPHAGE) 500 mg tablet Take 2 tablets by mouth two times a day with meals. - glimepiride (AMARYL) 4 mg tablet Take 1 tablet by mouth two times a day with meals. - blood sugar diagnostic (BLOOD GLUCOSE TEST) test strip Test blood sugar(s) 1 time daily as directed. Dx: Type 2 DM - Controlled E11.9 Insulin: No - Blood-Glucose Meter (TRUE METRIX GLUCOSE METER) 1 Each as directed. - metoprolol succinate ER (TOPROL XL) 25 mg 24 hr tablet Take 1 tablet by mouth once daily. (Dr. Hubbard) - Walker misc Trio Rolling Walker - aspirin, enteric coated (ASPIRIN, ENTERIC COATED) 81 mg EC tablet Take 1 tablet by mouth once daily. - Lancets lancets Test blood sugar(s) 4 times daily. Dx: Type 2 DM - Uncontrolled E11.65 Insulin: Yes - BRANNON-600 WITH VITAMIN D 600 MG-200 UNIT TAB Take one(1) tablet two(2) times daily. - COMPOUNDED PRESCRIPTION Herbal Laxative Take as directed. - GLUCOSAMINE 1,000 MG ORAL TAB Take one(1) tablet daily. Problem List As Of Date 08/18/2024 Noted Resolved Class 3 severe obesity due to excess calories w* Tachycardia, unspecified [R00.0] 04/03/2005 10/25/2023 Hypertension goal BP (blood pressure) < 140/90 *10/12/2005 Hyperlipidemia associated with type 2 diabetes *10/12/2005 Pain in joint, lower leg [M25.569] 04/21/2007 12/15/2010 Nonspecific abnormal results of liver function *10/20/2007 03/04/2012 Diabetes mellitus (HCC) [E11.9] 10/20/2007 Generalized OA [M15.9] 05/10/2008 10/25/2023 Polycythemia, secondary [D75.1] 03/28/2011 Colon cancer screening [Z12.11] 01/05/2016 01/05/2016 Acid indigestion [K30] 03/26/2016 Difficulty in walking involving lower leg joint* Generalized osteoarthrosis, involving multiple *05/10/2008 Status post right hip replacement [Z96.641] 12/23/2019 PAF (paroxysmal atrial fibrillation) (HCC) [I48*12/07/2021 Nonrheumatic aortic valve stenosis [I35.0] 12/07/2021 Cognitive impairment [R41.89] 02/25/2024 Encounter Status:Closed by KRISTA JI on 08/20/24 Normal [facility] 36on 06-12-2024 36 3 attempts have no been made to reach patient. She can reach us at [phone] M-F 8-5. We will continue to reach out as well. Normal [facility] Cardiology Visit Reporton Cardiology Visit Report [facility] [address] [place] [address] OFFICE VISIT Date of Service: 06/01/24 MR#: [id number] Acct: [id number] Name: LITO GONZALEZ Rep #: [id number] : 1950 Provider: BRENDA vila Age/Sex: 73/F Location: [facility] Status: Signed HPI HPI History of Present Illness Details: Lito Gonzalez is a 73 year old female who presents here today for a cardiovascular follow up. She has a history of history of hypertension, supraventricular tachyarrhythmia, paroxysmal atrial fibrillation, aortic sclerosis and mild stenosis. She is status post TAVR on 04/06/2024. During her hospitalization, she had intermittent complete heart block, and underwent pacemaker placement. From a cardiac standpoint, the patient is doing well. She denies any palpitations, chest pain, pressure or heaviness. She denies SOB, Orthopnea, and PND. She does not have bleeding issues; no blood in urine, stool or nosebleeds. She does acknowledge a decrease in energy level. She denies myalgias, or claudication. She does not have edema, or sudden weight gain. She denies dizziness, lightheadedness, syncopal or near syncopal episodes, and headaches. Intake Vital Signs 01/20/24 08:53 06/01/24 13:36 06/01/24 13:38 Height 5 ft 5 ft 5 ft Weight: 245 lb BMI 47.8 BP 123/74 H Blood Pressure Location Lt brachial Position Sitting Respiration 20 H Pulse 89 Pulse Source Monitor Pulse Oximetry (%) 95 Intake Visit Reasons: 8 W FU/BARON @ 1:30 (PACER @ [facility]) Air Chipper Required: No Is patient in pain?: No Allergies atorvastatin (From Lipitor) Allergy (Intermediate, Verified 06/01/24 13:53) Rash Medications ???Medication ???Instructions ???Recorded ???Confirmed ???Type calcium carbonate (Calcium 500) 500 mg PO DAILY supplement 01/05/19 06/01/24 History glucosamine HCl 1,500 mg tablet 1,500 mg PO DAILY 04/26/20 06/01/24 History aspirin 81 mg tablet,delayed 81 mg PO DAILY 11/03/20 06/01/24 History release (Adult Aspirin Regimen) metformin 500 mg tablet 500 mg PO BID diabetes 11/01/21 06/01/24 History glimepiride 2 mg tablet 4 mg PO DAILY 02/12/22 06/01/24 History apixaban 5 mg tablet (Eliquis) 5 mg PO BID #180 tabs 06/01/24 06/01/24 Rx metoprolol succinate 25 mg 50 mg PO DAILY bp 06/01/24 History tablet,extended release 24 hr Have you fallen in the past year?: Yes Nurse's Note: no medication list, is on other medications not listed but has no idea what they are [facility] Medical History Intermittent complete heart block Presence of cardiac pacemaker Obesity Diabetes COVID-19 virus detected (05/19/20) Atrial fibrillation with rapid ventricular response (08/2015) Right bundle branch block (RBBB) Type 2 diabetes mellitus Nonrheumatic aortic (valve) stenosis Essential (primary) hypertension Microcalcification of left breast on mammogram Abnormal mammogram of left breast Sepsis Diverticulitis Encephalopathy DKA (diabetic ketoacidoses) Arthritis Aortic valve calcification Diabetes type 2, uncontrolled Morbid obesity Surgical History History of right hip replacement (12/02/19) history left breast stereotactic biopsy (02/10/18) History of total right knee replacement (TKR) History of total left knee replacement (01/31/09) History of total hysterectomy History of appendectomy Family History Father COPD (chronic obstructive pulmonary disease) CAD (coronary artery disease) Mother Cancer Breast cancer Social History Smoking Status: Never smoker second hand exposure: No alcohol intake: never substance use type: does not use caffeine: No what type of physical activity do you participate in: none frequency: does not exercise seatbelt use: always ROS Const Const: Positive for fatigue; Negative for weakness, fever(s), headache(s), chills, frequent falls, weight gain or weight loss Eyes Eyes: Negative for blind spots, loss of peripheral vision, transient loss of vision, blurry vision, change in vision, double vision, floaters or tunnel vision ENT ENT: Negative for headache(s), dizziness, Nosebleed/epistaxis, balance problems or neck pain Cardio Chest Pain: No Palpitations: No Edema: None Muscle aches with walking: None Resp Respiratory: Negative for SOB with activity, SOB at rest or SOB orthopnea SOB lying down GI GI: Negative nausea, vomiting, heartburn, bloating, vomiting blood/hematemesis, bright, red blood in stools or black,tarry stools Musc Musc: Negative for muscle aches/ myalgia, muscle weakness, joint pain or balance problems Neuro Neuro: (more content not included)... Normal [facility] Pacemaker Checkon 06-01-2024 Pacemaker Check [facility] [address] [place] [address]. [address] [place] [address] Pacemaker Check Date of Service: 06/01/24 1418 MR#: [id number] Acct: [id number] Name: LITO GONZALEZ Rep #: [id number] : 1950 From: Hilary Jackman Age/Sex: 73/F Location: [facility] Status: Signed Billing Codes PM Device Codes: 51395 PM Dev Prog Eval, Dual Assessment and Plan Assessment and Plan (1) Presence of cardiac pacemaker: Status: Chronic (2) Intermittent complete heart block: Status: Acute 06/01/24 1545 Date Hilary Gasper Cosigner Signature: Date (if applicable) CC: [facility] 36on 05-27-2024 36 Prior Auth was required and has been approved through 07/28/2025. I attempted to reach the patient to inform of authorization and offer [facility] services but no one answered and VM was is full. Will continue to make further outreaches. Thank you! [facility] 36on 05-19-2024 36 Chart reviewed, Eliquis was started @ [facility] OV 05/07/24, samples & 30 D free card given, pt will be following up w/ Dr. Hubbard. I spoke w/pt, she has 30 Day free card, but needs RX sent in. She has appt w/ Dr. Hubbard in 2 weeks. Gloria Davis to route RX. [facility] 36 Requesting refill apixaban (Eliquis) 5 MG tablet Kenneth Gordon verified [facility] Office Visiton 05-07-2024 Follow-up visit [id number] Lito Gonzalez 1950 F Date Provider Department Center 05/07/2024 [id number] DAVIS [facility] [address] Family History Problem Relation Age of Onset Breast cancer Mother COPD Father Coronary artery disease Father Family Status - Relation Status Age at Mother Father Level of Service:98077 MA OFFICE/OUTPATIENT ESTABLISHED MOD MDM 30 MIN Reason for Visit and Comments: 1 Month Follow Up [[id number]] [facility] Progress Noteon 05-07-2024 Progress Note [facility] [address] [facility] [address] Dept: [phone] Dept Loc: [phone] Reason for Visit: 1 Month Follow Up Assessment and Plan 1. Severe aortic stenosis Assessment & Plan: S/p TAVR with 23 mm Makenzie S3 valve on 04/06/24 -stable, NYHA Class II -stop ASA, start Eliquis, see below -repeat echo to be done today -lifelong SBE prophylaxis -Cardiac Rehab-advised her to schedule an orientation Orders: - ECG 12 lead - CLINIC PERFORMED 2. PAF (paroxysmal atrial fibrillation) (HCC) Assessment & Plan: Hx PAF with RVR in setting of DKA and sepsis -Today pacemaker check reveals PAF with some RVR, AFib burden 2.3% with longest episode 3 hours -CHADS-VASC=4 -HAS-BLED=1 -patient asymptomatic with episodes of AFib -will increase metoprolol succinate to 50 mg daily -stop ASA. Will initiate Eliquis 5 mg BID (age 73, wt 109kg, SCr 0.87). samples provided and 30 day free card given to patient 3. Essential hypertension Assessment & Plan: Well controlled on current doses of losartan and metoprolol succinate 4. Complete heart block (HCC) Assessment & Plan: Noted post TAVR, PPM placed on 04/06/24 -will follow with device clinic at [facility] Follow up for Dr. Hubbard 1-2 months. Subjective HPI Lito Gonzalez is a 73 y.o. female known to Dr. Hubbard with a history of paroxysmal atrial fibrillation, nonrheumatic aortic valve stenosis, T2DM, hypertension, RBBB and left posterior fascicular block. Cath showed minimal CAD. She underwent femoral TAVR with 23 mm Makenzie S3 valve on 04/06/2024. POD 1 echo showed EF 66%, mean ao gradient 12 mm Hg. She developed high degree AV block with intermittent SVT. PPM was implanted on 04/06, beta liliya was resumed. She was discharged on 04/08/2024. She presents today for a one week TAVR follow up accompanied by her . She reports improvement in her SOB that is especially noticed by her and sister. Still reports some fatigue. Denies angina, orthopnea, PND, dizziness, palpitations or abnormal bleeding. Device check today showed PAF with longest AFib event 3 hours, AFib burden 2.3%. Poor rate control with some HR up to 160 bpm. Patient asymptomatic. Review of Systems Constitutional: Negative for chills and fever. Respiratory: Negative for cough and shortness of breath. Cardiovascular: Negative for chest pain, palpitations and leg swelling. Gastrointestinal: Negative for abdominal pain, blood in stool and vomiting. Genitourinary: Negative for hematuria. Neurological: Negative for dizziness and syncope. Allergies Allergen Reactions Atorvastatin Rash red itchy rash around neck--resolved after stopping med; hands froze with stiffness that started a week after taking a couple pills--resolving Outpatient Medications Prior to Visit Medication Sig Dispense Refill calcium carbonate 500 MG chewable tablet Chew 500 mg daily. glimepiride (Amaryl) 4 MG tablet Take 1 tablet by mouth in the morning and 1 tablet in the evening. Take with meals. Glucosamine-Chondroit -Vit C-Mn (GLUCOSAMINE 1500 COMPLEX PO) Take by mouth. [employer] Blood Glucose Test test strip Test blood sugar(s) 1 time daily as directed. Dx: Type 2 DM - Controlled E11.9 Insulin: No metFORMIN (Glucophage) 500 MG tablet Take 2 tablets (1,000 mg) by mouth in the morning and 2 tablets (1,000 mg) in the evening. Take with meals. Resume 04/09/2024. aspirin 81 MG EC tablet Take 81 mg by mouth daily. losartan (Cozaar) 50 MG tablet Take 1 tablet (50 mg) by mouth daily. 30 tablet 3 metoprolol succinate XL (Toprol-XL) 25 MG 24 hr tablet Take 50 mg by mouth daily. No facility-administered medications prior to visit. Past Medical History: Diagnosis Date Atrial fibrillation (HCC) Diabetes mellitus (HCC) Heart valve disease Hypertension Social History Tobacco Use Smoking status: Never Smokeless tobacco: Never Substance Use Topics Alcohol use: Never Past Surgical History: Procedure Laterality Date APPENDECTOMY CARDIAC CATHETERIZATION N/A 04/06/2024 Performed by Srinivasa Poon MD at [facility] OR CARDIAC ELECTROPHYSIOLOGY PROCEDURE N/A 04/07/2024 Performed by Eric Okeefe MD at [facility] Cardiac Cath/EP Lab HYSTERECTOMY TOTAL HIP ARTHROPLASTY Right 12/02/2019 TOTAL KNEE ARTHROPLASTY Left 01/31/2009 TOTAL KNEE ARTHROPLASTY Right Family History Problem Relation Name Age of Onset Breast cancer Mother COPD Father Coronary artery disease Father Objective Vitals: 05/07/24 1537 BP: 122/70 BP Location: Left arm Patient Position: Sitting BP Cuff Size: Large adult Pulse: 103 Weight: 240 lb (109 kg) Height: 4' 11.5 (1.511 m) Body mass index is 47.66 kg/m?. Physical Exam Constitutional: Appearance: Normal appearance. HENT: Head: Normocephalic. Eyes: General: No scleral icterus. Right eye: No discharge. Left eye: No discharge. Cardiovascular: Rate a (more content not included)... [facility] Progress Note Well controlled on current doses of losartan and metoprolol succinate Normal [facility] Progress Note Hx PAF with RVR in setting of DKA and sepsis -Today pacemaker check reveals PAF with some RVR, AFib burden 2.3% with longest episode 3 hours -CHADS-VASC=4 -HAS-BLED=1 -patient asymptomatic with episodes of AFib -will increase metoprolol succinate to 50 mg daily -stop ASA. Will initiate Eliquis 5 mg BID (age 73, wt 109kg, SCr 0.87). samples provided and 30 day free card given to patient [facility] Progress Note Noted post TAVR, PPM placed on 04/06/24 -will follow with device clinic at [facility] Progress Note S/p TAVR with 23 mm Makenzie S3 valve on 04/06/24 -stable, NYHA Class II -stop ASA, start Eliquis, see below -repeat echo to be done today -lifelong SBE prophylaxis -Cardiac Rehab-advised her to schedule an orientation [facility] US Heart TransthoracicOrdere d By: Anibal Young on 05-07-2024 AV Area by Peak Velocity 1.5 cm2 [facility] [employer] Work Phone: AV Area by VTI 1.5 cm2 [facility] Work Phone: AV Mean Gradient 15 mmHg [facility] Work Phone: AV Mean Velocity 1.8 m/s [facility] Work Phone: AV Peak Gradient 28 mmHg [facility] Work Phone: AV Peak Velocity 2.6 m/s [facility] Work Phone: AV Velocity Ratio 0.46 [facility] Work Phone: AV VTI 50.3 cm [facility] [employer] Work Phone: BENITA/BSA Peak Velocity 0.8 cm2/m2 [facility] Work Phone: BENITA/BSA VTI 0.8 cm2/m2 [facility] [employer] Work Phone: E/E' Lateral 16.83 [facility] [employer] Work Phone: E/E' Ratio (Averaged) 16.83 [facility] Work Phone: E/E' Septal 16.83 [facility] [employer] Work Phone: EF BP 67 % 55 - 100 % [facility] [employer] Work Phone: Fractional Shortening 2D 36 % 28 - 44 % [facility] [employer] Work Phone: Interpretation and review of laboratory results Abnormal [facility] [employer] Work Phone: IVC Diameter 1.3 cm [facility] [employer] Work Phone: IVSd 1.0 cm Abnormal 0.6 - 0.9 cm [facility] [employer] Work Phone: LA Diameter 4.1 cm [facility] [employer] Work Phone: LA Size Index 2.05 cm/m2 [facility] [employer] Work Phone: LA Volume 2C 35 mL 22 - 52 mL [facility] [employer] Work Phone: LA Volume 4C 46 mL 22 - 52 mL [facility] [employer] Work Phone: LA Volume A/L 45 mL [facility] [employer] Work Phone: LA Volume BP 41 mL 22 - 52 mL [facility] [employer] Work Phone: LA Volume Index 2C 18 mL/m2 16 - 34 mL/m2 [facility] [employer] Work Phone: LA Volume Index 4C 23 mL/m2 16 - 34 mL/m2 [facility] [employer] Work Phone: LA Volume Index A/L 23 mL/m2 16 - 34 mL/m2 [facility] [employer] Work Phone: LA Volume Index BP 21 ml/m2 16 - 34 ml/m2 [facility] [employer] Work Phone: LV E' Lateral Velocity 6 cm/s [facility] Work Phone: LV E' Septal Velocity 6 cm/s [facility] Work Phone: LV EDV A2C 43 mL [facility] Work Phone: LV EDV A4C 51 mL [facility] Work Phone: LV EDV BP 49 mL Abnormal 56 - 104 mL [facility] Work Phone: LV EDV Index A2C 22 mL/m2 [facility] Work Phone: LV EDV Index A4C 26 mL/m2 [facility] Work Phone: LV EDV Index BP 25 mL/m2 [facility] Work Phone: LV Ejection Fraction A2C 70 % [facility] Work Phone: LV Ejection Fraction A4C 65 % [facility] Work Phone: LV ESV A2C 13 mL [facility] Work Phone: LV ESV A4C 18 mL [facility] Work Phone: LV ESV BP 16 mL Abnormal 19 - 49 mL [facility] Work Phone: LV ESV Index A2C 7 mL/m2 [facility] Work Phone: LV ESV Index A4C 9 mL/m2 [facility] Work Phone: LV ESV Index BP 8 mL/m2 [facility] Work Phone: LV Mass 2D 107.9 g 67 - 162 g [facility] Work Phone: LV Mass 2D Index 53.9 g/m2 43 - 95 g/m2 [facility] Work Phone: LV RWT Ratio 0.56 [facility] Work Phone: LVIDd 3.6 cm Abnormal 3.9 - 5.3 cm [facility] Work Phone: LVIDd Index 1.80 cm/m2 [facility] Work Phone: LVIDs 2.3 cm [facility] Work Phone: LVIDs Index 1.15 cm/m2 [facility] Work Phone: LVOT Area 3.1 cm2 [facility] Work Phone: LVOT Cardiac Output 7.2 liter/minute [facility] Work Phone: LVOT Diameter 2.0 cm [facility] Work Phone: LVOT Mean Gradient 3 mmHg [facility] Work Phone: LVOT Peak Gradient 6 mmHg [facility] Work Phone: LVOT Peak Velocity 1.2 m/s [facility] Work Phone: LVOT Stroke Volume Index 35.8 mL/m2 [facility] Work Phone: LVOT SV 71.6 ml [facility] Work Phone: LVOT VTI 22.8 cm [facility] Work Phone: LVOT:AV VTI Index 0.45 [facility] ealth Work Phone: LVPWd 1.0 cm Abnormal 0.6 - 0.9 cm [facility] Work Phone: MV A Velocity 1.39 m/s [facility] Work Phone: MV Area by VTI 2.3 cm2 [facility] Work Phone: MV E Velocity 1.01 m/s [facility] Work Phone: MV E Wave Deceleration Time 165.2 ms [facility] Work Phone: MV E/A 0.73 [facility] Work Phone: MV Max Velocity 1.5 m/s [facility] Work Phone: MV Mean Gradient 3 mmHg [facility] Work Phone: MV Mean Velocity 0.9 m/s [facility] Work Phone: MV Peak Gradient 9 mmHg [facility] Work Phone: MV VTI 30.7 cm [facility] Work Phone: MV:LVOT VTI Index 1.35 [facility] Work Phone: RA Area 4C 28.4 mL [facility] Work Phone: RA Area 4C 27.9 mL [facility] Work Phone: RV Basal Dimension 3.0 cm [facility] Work Phone: RV Free Wall Peak S' 14 cm/s [facility] Work Phone: RV Longitudinal Dimension 6.3 cm [facility] Work Phone: RV Mid Dimension 2.7 cm [facility] Work Phone: TAPSE 2.2 cm 1.7 cm [facility] Work Phone: [facility] Work Phone: Heart Transthoracicon Left Ventricle: Left ventricle size is normal. Mildly increased wall thickness. Mild septal thickening. Normal left ventricular systolic function. The EF by visual approximation is 65%. Normal wall motion. Right Ventricle: Right ventricle size is normal. Normal systolic function. Aortic Valve: Not well visualized. Marsh Makenzie 3 transcatheter bioprosthetic aortic valve with a size of 23 mm. AV mean gradient is 15 mmHg. Technically difficult study. Left Ventricle Left ventricle size is normal. Mildly increased wall thickness. Mild septal thickening. Normal left ventricular systolic function. The EF by visual approximation is 65%. Normal wall motion. Right Ventricle Right ventricle size is normal. Normal systolic function. Left Atrium Left atrium size is normal. LA Vol Index A/L is 23 mL/m2. Right Atrium Right atrium size is normal. IVC/SVC IVC diameter is normal and decreases greater than 50% during inspiration; therefore the estimated right atrial pressure is normal (~3 mmHg). Mitral Valve Valve structure is normal. MV mean gradient is 3 mmHg. Mild annular calcification (posterior). No regurgitation. No stenosis noted. MV mean gradient is 3 mmHg. Tricuspid Valve Valve structure is normal. Trace regurgitation. Unable to assess RVSP due to insignificant tricuspid regurgitation. Aortic Valve Not well visualized. Marsh Makenzie 3 transcatheter bioprosthetic aortic valve with a size of 23 mm. AV mean gradient is 15 mmHg. No regurgitation. Normal prosthetic gradient. AV mean gradient is 15 mmHg. AV peak velocity is 2.6 m/s. LVOT:AV VTI Index is 0.45. Pulmonic Valve Valve structure is normal. Trace regurgitation. Ascending Aorta Not well visualized. Normal sized sinuses of Valsalva and ascending aorta. Pericardium No pericardial effusion. Septum No interatrial shunt visualized on color Doppler. Study Details Image quality: adequate. Heart rate: 97 bpm. Blood pressure: 143/74 mmHg. Technical qualifiers: Technically difficult study due to patient's body habitus. No contrast was given. Comparison Study There is a prior study available for comparison. Prior study date: 04/07/2024. Echo Additional Conclusions Technically difficult study. CV CPACS Basic metabolic 2000 panelon 05-04-2024 Anion gap [Moles/Vol] 14 mmol/L Normal 8-15 [facility] Comment on above: Order Comment: Speci men Type: BLOOD SPECIMENOrdering Facility: [facility] Address: [address] [place] [address] Performed By: #### 2 4321-2, 3015-3 ####[facility] LABCLIA [id number] [place] [address] [place] Calcium [Mass/Vol] 10.0 mg/dL Normal 8.5-10.2 [facility] Comment on above: Order Comment: Speci men Type: BLOOD SPECIMENOrdering Facility: [facility] Address: [address] [place] [address] Performed By: #### 2 4321-2, 6-3 ####[facility] LABCLIA [id number] [place] [address] [place] Chloride [Moles/Vol] 103 mmol/L Normal 98-107 [facility] Comment on above: Order Comment: Speci men Type: BLOOD SPECIMENOrdering Facility: [facility] Address: [address] [place] [address] Performed By: #### 2 4321-2, 3016-3 ####[facility] LABCLIA [id number] [place] [id number] [place] CO2 [Moles/Vol] 24 mmol/L Normal 22-30 [facility] Comment on above: Order Comment: Speci men Type: BLOOD SPECIMENOrdering Facility: [facility] Address: [address] [place] [address] Performed By: #### 2 4321-2, 3016-3 ####[facility] LABCLIA [id number] [place] [address] [place] Creatinine [Mass/Vol] 0.87 mg/dL Normal 0.58-0.96 [facility] Comment on above: Order Comment: Speci men Type: BLOOD SPECIMENOrdering Facility: [facility] Address: [address] [place] [address] Performed By: #### 2 4321-2, 3016-3 ####[facility] LABCLIA [id number] [place] [address] [place] Creatinine and Glomerular filtration rate.predicted panel (S/P/Bld) 70 mL/min/1.73m??? Normal >=60 [facility] Comment on above: Order Comment: Speci men Type: BLOOD SPECIMENOrdering Facility: [facility] Address: [address] [place] [address] Result Comment: Angélica mated Glomerular Filtration Rate (eGFR) is calculated using the 2020 CKD-EPI creatinine equation. This equation utilizes serum creatinine, sex, and age as parameters. The creatinine assay has traceable calibration to isotope dilution-mass spectrometry. Refer to KDIGO guidelines for clinical interpretation. In patients with unstable renal function, e.g. those with acute kidney injury, the eGFR may not accurately reflect actual GFR. Performed By: #### 2 4321-2, 6-3 ####[facility] LABCLIA [id number] [address] [address] [place] Glucose [Mass/Vol] 213 mg/dL High 74-99 [facility] Comment on above: Order Comment: Thomas shelton Type: BLOOD SPECIMENOrdering Facility: [facility] Address: [address] [place] [address] Result Comment: The [place] [employer] (ADA) provides guidance for cutoff values for fasting glucose and random glucose. The ADA defines fasting as no caloric intake for at least 8 hours. Fasting plasma glucose results between 100 to 125 [...] Standards of Medical Care in Diabetes 2016, [place] [employer]. Diabetes Care. 2016.39(Suppl 1). Performed By: #### 2 4321-2, 3015-3 ####[facility] LABCLIA [id number] [address] [address] [place] Potassium [Moles/Vol] 4.6 mmol/L Normal 3.7-5.1 [facility] Comment on above: Order Comment: Thomas shelton Type: BLOOD SPECIMENOrdering Facility: [facility] Address: [address] [place] [address] Performed By: #### 2 4321-2, 6-3 ####[facility] LABCLIA [id number] [address] [address] [place] Sodium [Moles/Vol] 141 mmol/L Normal 136-144 [facility] Comment on above: Order Comment: Thomas shelton Type: BLOOD SPECIMENOrdering Facility: [facility] Address: [address] [place] [address] Performed By: #### 2 4321-2, 3016-3 ####[facility] LABCLIA [id number] [place] [address] [place] Urea nitrogen [Mass/Vol] 20 mg/dL Normal 7-21 [facility] Comment on above: Order Comment: Speci men Type: BLOOD SPECIMENOrdering Facility: [facility] Address: [address] [place] [address] Performed By: #### 2 4321-2, 3016-3 ####[facility] LABCLIA [id number] [place] [address] [place] CBC W Auto Differential pane l (Bld)on 05-04-2024 Basophils (Bld) [#/Vol] 0.09 10*3/uL Normal <0.11 [facility] Comment on above: Order Comment: Speci men Type: BLOOD SPECIMENOrdering Facility: [facility] Address: [address] [place] [address] Performed By: #### 5 7021-8 ####[facility] LABCLIA [id number] [place] [address] [place] Basophils/100 WBC (Bld) 1.2 % Normal [facility] Comment on above: Order Comment: Speci men Type: BLOOD SPECIMENOrdering Facility: [facility] Address: [address] [place] [address] Performed By: #### 5 7021-8 ####[facility] LABCLIA [id number] [place] [id number] [place] Differential cell count method Nom (Bld) Auto Normal [facility] Comment on above: Order Comment: Speci men Type: BLOOD SPECIMENOrdering Facility: [facility] Address: [address] [place] [address] Performed By: #### 5 7021-8 ####[facility] LABCLIA [id number] [place] [id number] [place] Eosinophils (Bld) [#/Vol] 0.37 10*3/uL Normal <0.46 [facility] Comment on above: Order Comment: Speci men Type: BLOOD SPECIMENOrdering Facility: [facility] Address: [address] [place] [address] Performed By: #### 5 7021-8 ####[facility] LABCLIA [id number] [place] [address] [place] Eosinophils/100 WBC (Bld) 4.8 % Normal [facility] Comment on above: Order Comment: Speci men Type: BLOOD SPECIMENOrdering Facility: [facility] Address: [address] [place] [address] Performed By: #### 5 7021-8 ####[facility] LABCLIA [id number] [place] [address] [place] Erythrocyte distribution width (RBC) [Ratio] 13.2 % Normal 11.5-15.0 [facility] Comment on above: Order Comment: Speci men Type: BLOOD SPECIMENOrdering Facility: [facility] Address: [address] [place] [address] Performed By: #### 5 7021-8 ####[facility] LABCLIA [id number] [place] [address] [place] Hematocrit (Bld) [Volume fraction] 43.6 % Normal 36.0-46.0 [facility] Comment on above: Order Comment: Speci men Type: BLOOD SPECIMENOrdering Facility: [facility] Address: [address] [place] [address] Performed By: #### 5 7021-8 ####[facility] LABCLIA [id number] [place] [address] [place] Hemoglobin (Bld) [Mass/Vol] 14.1 g/dL Normal 11.5-15.5 [facility] Comment on above: Order Comment: Speci men Type: BLOOD SPECIMENOrdering Facility: [facility] Address: [address] [place] [address] Performed By: #### 5 7021-8 ####[facility] LABCLIA [id number] [place] [address] [place] Immature granulocytes (Bld) [#/Vol] 10*3/uL Normal <0.10 [facility] Comment on above: Order Comment: Speci men Type: BLOOD SPECIMENOrdering Facility: [facility] Address: [address] [place] [address] Performed By: #### 5 7021-8 ####[facility] LABCLIA [id number] [place] [address] [place] Immature granulocytes/100 WBC (Bld) 0.3 % Normal [facility] Comment on above: Order Comment: Speci men Type: BLOOD SPECIMENOrdering Facility: [facility] Address: [address] [place] [address] Performed By: #### 5 7021-8 ####[facility] LABCLIA [id number] [place] [address] [place] Lymphocytes (Bld) [#/Vol] 1.67 10*3/uL Normal 1.00-4.00 [facility] Comment on above: Order Comment: Speci men Type: BLOOD SPECIMENOrdering Facility: [facility] Address: [address] [place] [address] Performed By: #### 5 7021-8 ####[facility] LABCLIA [id number] [place] [address] [place] Lymphocytes/100 WBC (Bld) 21.7 % Normal [facility] Comment on above: Order Comment: Speci men Type: BLOOD SPECIMENOrdering Facility: [facility] Address: [address] [place] [address] Performed By: #### 5 7021-8 ####[facility] LABCLIA [id number] [place] [address] [place] MCH (RBC) [Entitic mass] 31.1 pg Normal 26.0-34.0 [facility] Comment on above: Order Comment: Speci men Type: BLOOD SPECIMENOrdering Facility: [facility] Address: [address] [place] [address] Performed By: #### 5 7021-8 ####[facility] LABCLIA [id number] [place] [address] [place] MCHC (RBC) [Mass/Vol] 32.3 g/dL Normal 30.5-36.0 [facility] Comment on above: Order Comment: Speci men Type: BLOOD SPECIMENOrdering Facility: [facility] Address: [address] [place] [address] Performed By: #### 5 7021-8 ####[facility] LABCLIA [id number] [place] [address] [place] MCV (RBC) [Entitic vol] 96.0 fL Normal 80.0-100.0 [facility] Comment on above: Order Comment: Speci men Type: BLOOD SPECIMENOrdering Facility: [facility] Address: [address] [place] [address] Performed By: #### 5 7021-8 ####[facility] LABCLIA [id number] [place] [address] [place] Monocytes (Bld) [#/Vol] 1.04 10*3/uL High <0.87 [facility] Comment on above: Order Comment: Speci men Type: BLOOD SPECIMENOrdering Facility: [facility] Address: [address] [place] [address] Performed By: #### 5 7021-8 ####[facility] LABCLIA [id number] [place] [address] [place] Monocytes/100 WBC (Bld) 13.5 % Normal [facility] Comment on above: Order Comment: Speci men Type: BLOOD SPECIMENOrdering Facility: [facility] Address: [address] [place] [address] Performed By: #### 5 7021-8 ####[facility] LABCLIA [id number] [facility] [address] [address] [place] Neutrophils (Bld) [#/Vol] 4.52 10*3/uL Normal 1.45-7.50 [facility] Comment on above: Order Comment: Speci men Type: BLOOD SPECIMENOrdering Facility: [facility] Address: [address] [place] [address] Performed By: #### 5 7021-8 ####[facility] LABCLIA [id number] [facility] [address] [address] [place] Neutrophils/100 WBC (Bld) 58.5 % Normal [facility] Comment on above: Order Comment: Speci men Type: BLOOD SPECIMENOrdering Facility: [facility] Address: [address] [place] [address] Performed By: #### 5 7021-8 ####[facility] LABCLIA [id number] [place] [address] [place] Nucleated RBC (Bld) [#/Vol] 10*3/uL Normal <0.01 [facility] Comment on above: Order Comment: Speci men Type: BLOOD SPECIMENOrdering Facility: [facility] Address: [address] [place] [address] Performed By: #### 5 7021-8 ####[facility] LABCLIA [id number] [place] [address] [place] Nucleated RBC/100 WBC (Bld) [Ratio] 0.0 /100 WBC Normal [facility] Comment on above: Order Comment: Speci men Type: BLOOD SPECIMENOrdering Facility: [facility] Address: [address] [place] [address] Performed By: #### 5 7021-8 ####[facility] LABCLIA [id number] [facility] [address] [address] [place] Platelet mean volume (Bld) [Entitic vol] 11.9 fL Normal 9.0-12.7 [facility] Comment on above: Order Comment: Speci men Type: BLOOD SPECIMENOrdering Facility: [facility] Address: [address] [place] [address] Performed By: #### 5 7021-8 ####[facility] LABCLIA [id number] [place] [address] [place] Platelets (Bld) [#/Vol] 144 10*3/uL Low 150-400 [facility] Comment on above: Order Comment: Speci men Type: BLOOD SPECIMENOrdering Facility: [facility] Address: [address] [place] [address] Performed By: #### 5 7021-8 ####[facility] LABCLIA [id number] [place] [address] [place] RBC (Bld) [#/Vol] 4.54 10*6/uL Normal 3.90-5.20 [facility] Comment on above: Order Comment: Speci men Type: BLOOD SPECIMENOrdering Facility: [facility] Address: [address] [place] [address] Performed By: #### 5 7021-8 ####[facility] LABIA [id number] [place] [address] [place] WBC (Bld) [#/Vol] 7.71 10*3/uL Normal 3.70-11.00 [facility] Comment on above: Order Comment: Speci men Type: BLOOD SPECIMENOrdering Facility: [facility] Address: [address] [place] [address] Performed By: #### 5 7021-8 ####[facility] LABIA [id number] [place] [address] [place] TSH SerPl-aCncon 05-04-2024 TSH Qn 0.980 m[IU]/L Normal 0.270-4.200 [facility] Comment on above: Order Comment: Speci men Type: BLOOD SPECIMENOrdering Facility: [facility] Address: [address] [place] [id number] Performed By: #### 2 4321-2, 3016-3 ####[facility] LABCLIA [id number] [facility] [id number] [address] [facility] [place] Office Visiton 04-17-2024 Follow-up visit [id number] Lito Gonzalez 1950 F Date Provider Department Center 04/17/2024 [address]96[address]-TQTARSLINDSEY [facility] [address] Family History Problem Relation Age of Onset Breast cancer Mother COPD Father Coronary artery disease Father Family Status - Relation Status Age at Mother Father Level of Service:61705 MA OFFICE/OUTPATIENT ESTABLISHED MOD MDM 30 MIN Reason for Visit and Comments: Hospital Follow-up [832] Normal [facility] Progress Noteon 04-17-2024 Progress Note [facility] [place] [address] [facility] [address] Dept: [phone] Dept Visit type: Established : 1950 Reason for Visit: No chief complaint on file. Assessment and Plan 1. S/P TAVR (transcatheter aortic valve replacement). She has a resting tachycardia today, unclear etiology. Will check labs - Basic metabolic panel - CBC auto differential - [facility] 2. Essential hypertension. BP controlled, continue metoprolol. - ECG 12 lead - CLINIC PERFORMED - Basic metabolic panel - CBC auto differential - TSH - [facility] 3. Aortic valve stenosis, etiology of cardiac valve disease unspecified. S/p TAVR. Continue ASA, SBE prophylaxis. Referred to cardiac rehabEcho and re evaluation in one month. - Basic metabolic panel - CBC auto differential - [facility] 4. Complete heart block (CMS/HCC) (HCC). S/p PPm. Has follow up with device clinic. One month follow up Subjective Lito Gonzalez is a 73 y.o. female with PMH paroxysmal atrial fibrillation ?, nonrheumatic aortic valve stenosis, DM, hypertension, RBBB and left posterior fascicular block that presented to [facility] on 04/06/2024 for TAVR. Femoral TAVR with 23 mm Makenzie S3 valve was performed on 04/06/2024. POD 1 echo showed EF 66%, mean ao gradient 12 mm Hg. She developed high degree AV block with intermittent SVT. PPM was implanted on 04/06, beta liliya was resumed. She was discharged on 04/08/2024. Today she is here for one week follow up. Lito denies any chest pain, dyspnea, groin/wrist complaints, bleeding. Her spouse notes improvement in breathing. Allergies Allergen Reactions Atorvastatin Rash red itchy rash around neck--resolved after stopping med; hands froze with stiffness that started a week after taking a couple pills--resolving Outpatient Medications Prior to Visit Medication Sig Dispense Refill aspirin 81 MG EC tablet Take 81 mg by mouth daily. calcium carbonate 500 MG chewable tablet Chew 500 mg daily. glimepiride (Amaryl) 4 MG tablet Take 1 tablet by mouth in the morning and 1 tablet in the evening. Take with meals. Glucosamine-Chondroit -Vit C-Mn (GLUCOSAMINE 1500 COMPLEX PO) Take by mouth. [employer] Blood Glucose Test test strip Test blood sugar(s) 1 time daily as directed. Dx: Type 2 DM - Controlled E11.9 Insulin: No losartan (Cozaar) 50 MG tablet Take 1 tablet (50 mg) by mouth daily. 30 tablet 3 metFORMIN (Glucophage) 500 MG tablet Take 2 tablets (1,000 mg) by mouth in the morning and 2 tablets (1,000 mg) in the evening. Take with meals. Resume 04/09/2024. metoprolol succinate XL (Toprol-XL) 25 MG 24 hr tablet Take 25 mg by mouth daily. No facility-administered medications prior to visit. Past Medical History: Diagnosis Date Atrial fibrillation (HCC) Diabetes mellitus (HCC) Heart valve disease Hypertension Social History Tobacco Use Smoking status: Never Smokeless tobacco: Never Substance Use Topics Alcohol use: Never Past Surgical History: Procedure Laterality Date APPENDECTOMY CARDIAC CATHETERIZATION N/A 04/06/2024 Performed by Srinivasa Poon MD at [facility] OR CARDIAC ELECTROPHYSIOLOGY PROCEDURE N/A 04/07/2024 Performed by Eric Okeefe MD at [facility] Cardiac Cath/EP Lab HYSTERECTOMY TOTAL HIP ARTHROPLASTY Right 12/02/2019 TOTAL KNEE ARTHROPLASTY Left 01/31/2009 TOTAL KNEE ARTHROPLASTY Right Family History Problem Relation Name Age of Onset Breast cancer Mother COPD Father Coronary artery disease Father Objective Vitals: 04/17/24 1302 BP: 110/70 BP Location: Right arm Patient Position: Sitting BP Cuff Size: Large adult Pulse: 110 SpO2: 100% Weight: 240 lb (109 kg) Height: 4' 11 (1.499 m) Physical Exam Constitutional: Appearance: Normal appearance. She is obese. HENT: Head: Normocephalic and atraumatic. Nose: Nose normal. Eyes: Conjunctiva/sclera: Conjunctivae normal. Pupils: Pupils are equal, round, and reactive to light. Cardiovascular: Rate and Rhythm: Regular rhythm. Tachycardia present. Pulmonary: Effort: Pulmonary effort is normal. Breath sounds: Normal breath sounds. Abdominal: General: Bowel sounds are normal. Palpations: Abdomen is soft. Musculoskeletal: General: Normal range of motion. Cervical back: Normal range of motion and neck supple. Right lower leg: Edema present. Left lower leg: Edema present. Skin: General: Skin is warm and dry. Comments: Right wrist and groin soft without bleeding or hematoma Neurological: General: No focal deficit present. Mental Status: She is alert and oriented to person, place, and time. Psychiatric: Mood and Affect: Mood normal. Thought Content: Thought content normal. Data Reviewed and Summarized EF BP Date Value Ref Range Status 04/07/2024 66 55 - 100 % Final Review of tests/labs done/ordered within my specialty: EKG in office: ST with RBBB Rev (more content not included)... Normal [facility] 36on 04-10-2024 36 Patient s/p TAVR 04/06/24 with CHB s/p PPM placement 04/07/24. BP elevated, 50 mg losartan. Spoke with patient and diarrhea has resolved, she took losartan this morning without concerns. Rescheduled 1 week follow-up to 04/17 as patient's has EGD on 04/16. Normal [facility] 36on 04-09-2024 36 Patient called b/c she started the losartan this morning and now c/o diarrhea Normal [facility] CALCIUM, IONIZEDon 4 CALCIUM IONIZED 4.60 mg/dL Normal 4.30-5.20 [facility] Comment on above: Performed By: #### L AB54 ####Supplier Quality Engineering Manager: GRISEL GARZA ([phone])[facility] ([address] PH, IONIZED CALCIUM 7.39 Normal 7.31-7.46 [facility] Comment on above: Performed By: #### L AB54 ####Supplier Quality Engineering Manager: GRISEL GARZA ([phone])[facility] ([facility])[address] CBC W Auto Differential pane l (Bld)on 04-08-2024 Basophils (Bld) [#/Vol] 0.1 10*3/uL 0.0 - 0.2 10*3/uL [facility] Basophils/100 WBC (Bld) 0.8 % 0.0 - 2.0 % [facility] Eosinophils (Bld) [#/Vol] 0.4 10*3/uL 0.0 - 0.5 10*3/uL [facility] Eosinophils/100 WBC (Bld) 3.7 % 0.0 - 6.0 % [facility] Erythrocyte distribution width (RBC) [Ratio] 13.7 % 11.5 - 15.0 % [facility] Hematocrit (Bld) [Volume fraction] 41.2 % 35.0 - 47.0 % [facility] Hemoglobin (Bld) [Mass/Vol] 13.5 g/dL 11.7 - 16.0 g/dL [facility] Immature granulocytes (Bld) [#/Vol] 0.0 10*3/uL NINF - 0.1 10*3/uL [facility] [employer] Immature granulocytes/100 WBC (Bld) 0.3 % 0.0 - 2.0 % [facility] Interpretation and review of laboratory results Abnormal [facility] Lymphocytes (Bld) [#/Vol] 2.3 10*3/uL 1.0 - 4.3 10*3/uL [facility] Lymphocytes/100 WBC (Bld) 22.5 % 15.0 - 45.0 % [facility] MCH (RBC) [Entitic mass] 30.5 pg 26. 0 - 34.0 pg [facility] MCHC (RBC) [Mass/Vol] 32.8 % 30.5 - 36.0 % [facility] MCV (RBC) [Entitic vol] 93.0 fL 77.0 - 99.0 fL [facility] Monocytes (Bld) [#/Vol] 1.4 10*3/uL High 0.0 - 0.9 10*3/uL [facility] Monocytes/100 WBC (Bld) 13.4 % High 5.0 - 13.0 % [facility] Neutrophils (Bld) [#/Vol] 6.0 10*3/uL 1.8 - 7.5 10*3/uL [facility] Neutrophils/100 WBC (Bld) 59.3 % 38.0 - 82.0 % [facility] Nucleated RBC/100 WBC (Bld) [Ratio] 0.0 % [facility] Platelet mean volume (Bld) [Entitic vol] 11.3 fL 9.0 - 12.7 fL [facility] Platelets (Bld) [#/Vol] 144 10*3/uL 140 - 440 10*3/uL [facility] RBC (Bld) [#/Vol] 4.43 10*6/uL 3.80 - 5.2 0 10*6/uL [facility] WBC (Bld) [#/Vol] 10.1 10*3/uL 3.6 - 10.7 10*3/uL [facility] CBC WITH AUTO DIFFERENTIALon 04-08-2024 Basophils (Bld) [#/Vol] 0.1 10*3/uL Normal 0.0-0.2 [facility] Comment on above: Performed By: #### L [id number] ####Supplier Quality Engineering Manager: GRISEL [phone])[facility] ([facility])[address] [place] [address] Basophils/100 WBC (Bld) 0.8 % Normal 0.0-2.0 S [facility] Comment on above: Performed By: #### L [id number] ####Supplier Quality Engineering Manager: GRISEL GARZA ([phone])[facility] ([facility])[address] [place] [address] [place] Eosinophils (Bld) [#/Vol] 0.4 10*3/uL Normal 0.0-0.5 [facility] Comment on above: Performed By: #### L [id number] ####Supplier Quality Engineering Manager: GRISEL GARZA ([phone])[facility] ([facility])[address] [place] [address] [place] Eosinophils/100 WBC (Bld) 3.7 % Normal 0.0-6.0 [facility] Comment on above: Performed By: #### L [id number] ####Supplier Quality Engineering Manager: GRISEL GARZA ([phone])[facility])[address] [place] [address] Erythrocyte distribution width (RBC) [Ratio] 13.7 % Normal 11.5-15.0 [facility] Comment on above: Performed By: #### L [id number] ####Supplier Quality Engineering Manager: GRISEL GARZA ([phone])[facility])[address] [place] [address] Hematocrit (Bld) [Volume fraction] 41.2 % Normal 35.0-47.0 [facility] Comment on above: Performed By: #### L [id number] ####Supplier Quality Engineering Manager: GRISEL GARZA ([phone])[address] Hemoglobin (Bld) [Mass/Vol] 13.5 g/dL Normal 11.7-16.0 [facility] Comment on above: Performed By: #### L [id number] ####Supplier Quality Engineering Manager: GRISEL GARZA ([phone])[address] IMMATURE GRANS % 0.3 % Normal 0.0-2.0 [facility] Comment on above: Performed By: #### L [id number] ####Supplier Quality Engineering Manager: GRISEL GARZA ([phone])[address] IMMATURE GRANS ABSOLUTE 0.0 10*3/uL Normal <0.1 [facility] Comment on above: Performed By: #### L [id number] ####Supplier Quality Engineering Manager: GRISEL GARZA ([phone])[facility])[address] [place] [address] Lymphocytes (Bld) [#/Vol] 2.3 10*3/uL Normal 1.0-4.3 [facility] Comment on above: Performed By: #### L [id number] ####Supplier Quality Engineering Manager: GRISEL GARZA ([phone])[facility] ([facility])[address] [place] [address] Lymphocytes/100 WBC (Bld) 22.5 % Normal 15.0-45.0 [facility] Comment on above: Performed By: #### L [id number] ####Supplier Quality Engineering Manager: GRISEL GARZA ([phone])[facility] ([facility])[address] [place] [address] MCH (RBC) [Entitic mass] 30.5 pg Normal 26.0-34.0 [facility] Comment on above: Performed By: #### L [id number] ####Supplier Quality Engineering Manager: GRISEL GARZA ([phone])[facility])[address] [place] [address] MCHC 32.8 % Normal 30.5-36.0 [facility] Comment on above: Performed By: #### L [id number] ####Supplier Quality Engineering Manager: GRISEL GARZA ([phone])[facility] ([facility])[address] [place] [address] MCV (RBC) [Entitic vol] 93.0 fL Normal 77.0-99.0 S [facility] Comment on above: Performed By: #### L [id number] ####Supplier Quality Engineering Manager: GRISEL GARZA ([phone])[facility])[address] [place] [address] Monocytes (Bld) [#/Vol] 1.4 10*3/uL High 0.0-0.9 [facility] Comment on above: Performed By: #### L [id number] ####Supplier Quality Engineering Manager: GRISEL GARZA ([phone])[facility])[address] [place] [address] Monocytes/100 WBC (Bld) 13.4 % High 5.0-13.0 S [facility] Comment on above: Performed By: #### L [id number] ####Supplier Quality Engineering Manager: GRISEL GARZA ([phone])[facility] [place] [address] NEUTROPHILS ABSOLUTE 6.0 10*3/uL Normal 1.8-7.5 [facility] Comment on above: Performed By: #### L [id number] ####Supplier Quality Engineering Manager: GRISEL GARZA ([phone])[facility] ([facility])[address] [place] [address] Neutrophils/100 WBC (Bld) 59.3 % Normal 38.0-82.0 [facility] Comment on above: Performed By: #### L [id number] ####Supplier Quality Engineering Manager: GRISEL GARZA ([phone])[facility] ([facility])[address] [place] [address] NRBC 0.0 /100 WBCs Normal 0.0-2.0 [facility] Comment on above: Performed By: #### L [id number] ####Supplier Quality Engineering Manager: GRISEL GARZA ([phone])[facility] ([facility])[address] [place] [address] Platelet mean volume (Bld) [Entitic vol] 11.3 fL Normal 9.0-12.7 [facility] Comment on above: Performed By: #### L [id number] ####Supplier Quality Engineering Manager: GRISEL GARZA ([phone])[facility] ([facility])[address] [place] [address] Platelets (Bld) [#/Vol] 144 10*3/uL Normal 140-440 [facility] Comment on above: Performed By: #### L [id number] ####Supplier Quality Engineering Manager: GRISEL GARZA ([phone])[facility] ([facility])[address] [place] [address] RBC (Bld) [#/Vol] 4.43 10*6/uL Normal 3.80-5.20 [facility] Comment on above: Performed By: #### L [id number] ####Supplier Quality Engineering Manager: GRISEL GARZA ([phone])[facility] ([facility])[address] [place] [address] [place] WBC (Bld) [#/Vol] 10.1 10*3/uL Normal 3.6-10.7 [facility] Comment on above: Performed By: #### L [id number] ####Supplier Quality Engineering Manager: GRISEL GARZA ([phone])[facility] ([facility])[address] [place] [address] COMPREHENSIVE METABOLIC PANE Cedric 04-08-2024 Albumin [Mass/Vol] 3.9 g/dL Normal 3.5-5.0 [facility] Comment on above: Performed By: #### L [id number], [id number], [id number] ####Supplier Quality Engineering Manager: GRISEL GARZA ([phone])[facility] ([facility])[address] [place] [address] ALP [Catalytic activity/Vol] 54 U/L Normal 38-126 [facility] Comment on above: Performed By: #### L [id number], [id number], [id number] ####Supplier Quality Engineering Manager: GRISEL GARZA ([phone])[facility] ([facility])[address] [place] [address] ALT [Catalytic activity/Vol] 27 U/L Normal 0-34 [facility] Comment on above: Performed By: #### L [id number], [id number], [id number] ####Supplier Quality Engineering Manager: GRISEL GARZA ([phone])[facility] ([facility])[address] [place] [address] Anion gap [Moles/Vol] 5 mmol/L Normal 3-13 [facility] Comment on above: Performed By: #### L [id number], [id number], [id number] ####Supplier Quality Engineering Manager: GRISEL GARZA ([phone])[facility] ([facility])[address] [place] [address] AST [Catalytic activity/Vol] 27 U/L Normal 15-46 [facility] Comment on above: Performed By: #### L AB17, [id number], [id number] ####Supplier Quality Engineering Manager: GRISEL GARZA ([phone])[facility])[address] [place] [address] Bilirubin [Mass/Vol] 1.3 mg/dL Normal 0.2-1.3 [facility] Comment on above: Performed By: #### L [id number], [id number], [id number] ####Supplier Quality Engineering Manager: GRISEL GARZA ([phone])[facility])[address] [place] [address] Calcium [Mass/Vol] 9.4 mg/dL Normal 8.4-10.4 [facility] Comment on above: Performed By: #### L [id number], [id number], [id number] ####Supplier Quality Engineering Manager: GRISEL GARZA ([phone])[facility] [place] [address] Chloride [Moles/Vol] 108 mmol/L High 98-107 [facility] Comment on above: Performed By: #### L AB17, [id number], [id number] ####Supplier Quality Engineering Manager: GRISEL GARZA ([phone])[facility] ([facility])[address] [place] [address] CO2 [Moles/Vol] 22 mmol/L Normal 22-30 [facility] Comment on above: Performed By: #### L AB17, [id number], [id number] ####Supplier Quality Engineering Manager: GRISEL GARZA ([phone])[facility])[address] [place] [address] Creatinine [Mass/Vol] 0.74 mg/dL Normal 0.52-1.04 [facility] Comment on above: Performed By: #### L AB17, [id number], [id number] ####Supplier Quality Engineering Manager: GRISEL GARZA ([phone])[facility])[address] [place] [address] GLOMERULAR FILTRATION RATE ML/MIN/1.73 SQ M.PREDICTED 84.5 mL/min/1.73m*2 Normal >60.0 [facility] Comment on above: Result Comment: Calc ulation based on the Chronic Kidney Disease Epidemiology Collaboration (CKD-EPI) equation refit without adjustment for race Performed By: #### L AB17, [id number], [id number] ####Supplier Quality Engineering Manager: GRISEL GARZA ([phone])[facility] ([facility])[address] [place] [address] [place] Glucose [Mass/Vol] 159 mg/dL High 70-100 [facility] Comment on above: Performed By: #### L AB17, [id number], [id number] ####Supplier Quality Engineering Manager: GRISEL GARZA ([phone])[facility] [place] [address] Potassium [Moles/Vol] 3.9 mmol/L Normal 3.5-5.1 [facility] Comment on above: Performed By: #### L AB17, [id number], [id number] ####Supplier Quality Engineering Manager: GRISEL GARZA ([phone])[facility] ([facility])[address] [place] [address] Protein [Mass/Vol] 6.8 g/dL Normal 6.3-8.2 [facility] Comment on above: Performed By: #### L AB17, [id number], [id number] ####Supplier Quality Engineering Manager: GRISEL GARZA ([phone])[facility] [place] [address] Sodium [Moles/Vol] 135 mmol/L Normal 135-145 [facility] Comment on above: Performed By: #### L AB17, [id number], [id number] ####Supplier Quality Engineering Manager: GRISEL GARZA ([phone])[facility] [place] [address] Urea nitrogen [Mass/Vol] 18 mg/dL High 7-17 [facility] Comment on above: Performed By: #### L AB17, [id number], [id number] ####Supplier Quality Engineering Manager: GRISEL GARZA ([phone])[facility] ([facility])[address] [place] [address] [place] Calcium.ionized [Moles/Vol]o n 04-08-2024 Calcium.ionized (Bld) [Moles/Vol] 4.60 mg/dL 4.30 - 5.20 mg/dL [facility] Interpretation and review of laboratory results Normal [facility] PH, IONIZED CALCIUM 7.39 7.31 - 7.46 [facility] Comprehensive metabolic 1998 panelon 04-08-2024 Albumin [Mass/Vol] 3.9 g/dL 3.5 - 5.0 g/dL [facility] ALP [Catalytic activity/Vol] 54 U/L 38 - 126 U/L [facility] ALT [Catalytic activity/Vol] 27 U/L 0 - 34 U/L [facility] Anion gap [Moles/Vol] 5 mmol/L 3 - 13 mmol/L [facility] AST [Catalytic activity/Vol] 27 U/L 15 - 46 U/L [facility] Bilirubin [Mass/Vol] 1.3 mg/dL 0.2 - 1 .3 mg/dL [facility] Calcium [Mass/Vol] 9.4 mg/dL 8.4 - 10. 4 mg/dL [facility] Chloride [Moles/Vol] 108 mmol/L High 98 - 10 7 mmol/L [facility] CO2 [Moles/Vol] 22 mmol/L 22 - 30 mmol/L [facility] Creatinine [Mass/Vol] 0.74 mg/dL 0.52 - 1.04 mg/dL [facility] GFR/1.73 sq M.predicted (S/P/Bld) [Vol rate/Area] 84.5 mL/min - PINF [facility] Comment on above: Calculation based on the Chronic Kidney Disease Epidemiology Collaboration (CKD-EPI) equation refit without adjustment for race Glucose [Mass/Vol] 159 mg/dL High 70 - 100 mg/dL [facility] Interpretation and review of laboratory results Abnormal [facility] Potassium [Moles/Vol] 3.9 mmol/L 3.5 - 5.1 mmol/L [facility] Protein [Mass/Vol] 6.8 g/dL 6.3 - 8.2 g/dL [facility] Sodium [Moles/Vol] 135 mmol/L 135 - 145 mmol/L [facility] Urea nitrogen [Mass/Vol] 18 mg/dL High 7 - 17 mg/d L [facility] ECG 12-LEADon 04-08-2024 ECG 12-LEAD IMPRESSION: Sinus tachycardia RBBB and LPFB Nonspecific ST and T wave changes Electronically Signed On 04-08-2024 08:58:15 EDT by Alen Hernández Normal [facility] ECG 12-LEAD IMPRESSION: Sinus tachycardia RBBB and LPFB Nonspecific ST and T wave changes Electronically Signed On 04-08-2024 08:58:33 EDT by Alen Hidalgo [facility] ECG 12-LEAD IMPRESSION: Sinus tachycardia RBBB and LPFB Nonspecific ST and T wave changes Electronically Signed On 04-08-2024 08:57:47 EDT by Alen Hidalgo [facility] ECG 12-LEAD IMPRESSION: Sinus tachycardia RBBB and LPFB Electronically Signed On 04-08-2024 08:56:00 EDT by Alen Hidalgo [facility] Electrophysiology studyon [facility] - Chemistry and C hemistry - challengeon 04-08-2024 Glucose [Mass/Vol] 253 mg/dL High 70 - 100 mg/dL [facility] Glucose [Mass/Vol] 210 mg/dL High 70 - 100 mg/dL [facility] Magnesium [Mass/Vol] 1.8 mg/dL 1.6 - 2 .3 mg/dL [facility] MAGNESIUMon 04-08-2024 Magnesium [Mass/Vol] 1.8 mg/dL Normal 1.6-2.3 [facility] Comment on above: Performed By: #### L AB17, [id number], [id number] ####Supplier Quality Engineering Manager: GRISEL GARZA ([phone])[facility] ([facility])[address] [place] [address] No Panel Informationon 04-08 Interpretation and review of laboratory results Abnormal [facility] Performed by: [facility], [address] [place] [address] CLIA ID: [id number] [facility] Health P [place] 26 degrees [facility] Health MA Interval 194 ms [facility] Health QRS [place] 93 degrees [facility] QRSD Interval 146 ms [facility] Healt h QT Interval 371 ms [facility] QTC Interval 482 ms [facility] T Wave [place] -72 degrees [facility] Sinus tachycardia RBBB and LPFB Nonspecific ST and T wave changes Electronically Signed On 04-08-2024 08:58:33 EDT by Alen Zurita MD - 04/08/2024 IMPRESSION: Sinus tachycardia RBBB and LPFB Nonspecific ST and T wave changes Electronically Signed On 04-08-2024 08:58:33 EDT [facility] P [place] 52 degrees [facility] MA Interval 173 ms [facility] Health QRS [place] 95 degrees [facility] Health QRSD Interval 138 ms [facility] QT Interval 347 ms [facility] Health QTC Interval 478 ms [facility] Health T Wave [place] -70 degrees [facility] Health Sinus tachycardia RBBB and LPFB Nonspecific ST and T wave changes Electronically Signed On 04-08-2024 08:58:15 EDT by Alen Zurita MD - 04/08/2024 IMPRESSION: Sinus tachycardia RBBB and LPFB Nonspecific ST and T wave changes Electronically Signed On 04-08-2024 08:58:15 EDT by Alen Hernández [facility] Sinus tachycardia RBBB and LPFB Nonspecific ST and T wave changes Electronically Signed On 04-08-2024 08:57:47 EDT by Alen Zurita MD - 04/08/2024 IMPRESSION: Sinus tachycardia RBBB and LPFB Nonspecific ST and T wave changes Electronically Signed On 04-08-2024 08:57:47 EDT by Alen Hernández [facility] [employer] P [place] 40 degrees [facility] MA Interval 204 ms [facility] Health QRS [place] 95 degrees [facility] Health QRSD Interval 141 ms [facility]alt [facility] QT Interval 362 ms [facility] Health QTC Interval 477 ms [facility] T Wave [place] -65 degrees [facility] Sinus tachycardia RBBB and LPFB Electronically Signed On 04-08-2024 08:56:00 EDT by Alen Zurita MD - 04/08/2024 IMPRESSION: Sinus tachycardia RBBB and LPFB Electronically Signed On 04-08-2024 08:56:00 EDT by Alen Hernández [facility] Interpretation and review of laboratory results Abnormal [facility] Performed by: [facility], [address] [place] [address] CLIA ID: [id number] [facility] Interpretation and review of laboratory results Normal [facility] No Panel InformationOrdered By: Alen Hernández on 04-08-2024 P [place] 42 degrees [facility] [employer] Work Phone: [place] Interval 155 ms [employer] Work Phone: QRS [place] 91 degrees [employer] Work Phone: QRSD Interval 143 ms [facility] [facility] Work Phone: QT Interval 356 ms Portr Work Phone: [phone] QTC Interval 474 ms [employer] Work Phone: T Wave [place] -64 degrees [employer] Work Phone: Portr Work Phone: PHOSPHORUSon 04-08-2024 Phosphate [Mass/Vol] 3.4 mg/dL Normal 2.5-4.5 [facility] [employer] [facility] Comment on above: Performed By: #### L AB17, [id number], [id number] ####Supplier Quality Engineering Manager: GRISEL GARZA ([phone])[address] Phosphate [Moles/Vol]on 03-29 Phosphate [Mass/Vol] 3.4 mg/dL 2.5 - 4 .5 mg/dL [facility] Progress Noteon 04-08-2024 Progress Note Nutrition rescreen completed. Chart reviewed. Patient to be monitored and followed by the diet broadcast technician. .BOBBY Dugan Normal [facility] [employer] [facility] Progress Note - Attestation signed by Calvin Barnard MD PhD at 04/08/2024 10:06 AM (Updated) I, Dr. Barnard, saw and evaluated the patient. I personally obtained the parker and critical portions of the history and physical exam. I reviewed the chart, the Team's documentation, and discussed the patient with the Team. I agree with the Team's medical decision making and have edited the note to reflect my clinical findings and my assessment and plan. DOS 04/08/24 73 yo female s/p TAVR on 04/06 who had bifascicular block prior to procedure. Also hx of PAF. Patient developed prolonged AV block now s/p PPM placement. CXR pending and interrogation of PPM BP treated with losartan EF preserved Ok to d/c later today, d/w patient meds and f/u [facility] PROGRESS NOTE Patient Name: Lito Gonzalez : 1950 Subjective: Lito Gonzalez is a 73 y.o. female with PMH paroxysmal atrial fibrillation, nonrheumatic aortic valve stenosis, DM, hypertension, RBBB and left posterior fascicular block that presented to [facility] on 04/06/2024 for TAVR procedure. Pre TAVR echo showing calcified AV with severe stenosis, the peak and mean gradients are 69/46 mm Hg, the BENITA 0.6 cm2 with DI 0.19. Patient underwent successful TAVR through right femoral access. 04/06 Post-TAVR Echo showed EF 69%, AV Mean Gradient 4, no valvular regurg. 04/07 TTE showed EF 66%, AV mean gradient 12 mmHg, no regurgitation. Telemetry showed.'s of both SVT into the 170s, high-grade AV block,. 04 S2 1 AV block and 3 is to 1 AV block. Dose of atropine was given during prolonged run of block with improvement in HR. Patient denied heart palpitations, chest pain, lightheadedness, prior syncopal episodes. Patient diagnosed with new onset complete heart block and dual chamber PPM placed on 04/07/2024. Currently awaiting CXR and Pacemaker interrogation. Interval History: NAEON. Patient only complains of a dull relapsing and remitting headache, but currently no issues. She denies SOB, CP, n/v/c/d. She denies previous history of HTN. Sating well 96% on RA. Review of Systems: Review of Systems Constitutional: Negative for chills and fever. Respiratory: Negative for shortness of breath. Cardiovascular: Negative for chest pain, palpitations and leg swelling. Gastrointestinal: Negative for abdominal distention, abdominal pain, constipation, diarrhea, nausea and vomiting. Neurological: Positive for headaches (dull, relapsing and remitting). Negative for dizziness and light-headedness. Inpatient Medications: Scheduled Meds:aspirin, 81 mg, Oral, Daily glipiZIDE, 10 mg, Oral, qAM AC [Held by provider] metoprolol succinate XL, 25 mg, Oral, Daily mupirocin, 1 Application, Nasal, BID pantoprazole, 40 mg, Oral, qAM AC Or pantoprazole (ProtoNix) 40 mg in sodium chloride (PF) 0.9 % 10 mL injection, 40 mg, IntraVENous, qAM AC Continuous Infusions: PRN Meds used in the last 24hr: n/a Objective: Physical Examination: BP 149/71 (BP Location: Right arm, Patient Position: Lying) Pulse 91 Temp 37 ?C (98.6 ?F) (Temporal) Resp (!) 26 Ht 4' 11 (1.499 m) Wt 243 lb (110 kg) SpO2 93% BMI 49.08 kg/m? Intake/Output Summary (Last 24 hours) at 04/08/2024 0612 Last data filed at 04/08/2024 0141 Gross per 24 hour Intake 370 ml Output 10 ml Net 360 ml Physical Exam Constitutional: General: She is not in acute distress. Appearance: She is obese. She is not ill-appearing. HENT: Head: Normocephalic and atraumatic. Cardiovascular: Rate and Rhythm: Normal rate and regular rhythm. Heart sounds: Normal heart sounds. No murmur heard. Pulmonary: Effort: Pulmonary effort is normal. Breath sounds: Normal breath sounds. No wheezing, rhonchi or rales. Abdominal: General: Abdomen is flat. There is no distension. Palpations: Abdomen is soft. Tenderness: There is no abdominal tenderness. Musculoskeletal: Right lower leg: No edema. Left lower leg: No edema. Skin: General: Skin is warm and dry. Neurological: General: No focal deficit present. Mental Status: She is alert and oriented to person, place, and time. Pertinent Labs: BMP: Lab Results Component Value Date NA 135 04/08/2024 K 3.9 04/08/2024 CL 108 (H) 04/08/2024 CO2 22 04/08/2024 BUN 18 (H) 04/08/2024 CREATININE 0.74 04/08/2024 GLUCOSE 159 (H) 04/08/2024 CALCIUM 9.4 04/08/2024 MG 1.8 04/08/2024 PHOS 3.4 04/08/2024 CBC: Lab Results Component Value Date WBC 10.1 04/08/2024 HGB 13.5 04/08/2024 HCT 41.2 04/08/2024 MCV 93.0 04/08/2024 PLT 144 04/08/2024 Cardiac profile: No results found for: CKTOTAL, CKMB, TROPONINI Coagulation: No results found for: INR, PTT Lipid panel: No results found for: CHOL, HDL, LDL, TRIG Other: No results found for: HGBA1C, T (more content not included)... Normal [facility] Vital signson 04-08-2024 Heart rate 101 /min bpm Port[employer] Heart rate 113 /min bpm [employer] Heart rate 104 /min bpm [facility] [employer] Vital signsOrdered By: Aeln Hernández on 04-08-2024 Heart rate 107 /min bpm Portr Work Phone: XR CHEST 2 VIEWSon 4 XR CHEST 2 VIEWS Patient Name: LITO GONZALEZ : 1950 [facility]#: [id number] Exam Date/Time: 04/08/2024 09:54 Procedure: XR CHEST 2 VIEWS Ordering Provider: MCKNIGHT SHARON Reason For Exam: Post PPM Implant CHEST X-RAY PA/LATERAL CLINICAL INDICATION: Post PPM Implant TECHNIQUE: Frontal and lateral plain films of the chest were obtained. COMPARISON: None FINDINGS: Cardiomediastinal silhouette: There is a left-sided pacemaker device with intact leads in the right atrium and ventricle. Heart size is within normal limits. There is a prosthetic aortic valve. Lungs: No pneumothorax or pleural effusion. No lung consolidation. Bones: Degenerative changes are seen in the thoracic spine and shoulders. No acute osseous findings. IMPRESSION: Recent pacemaker placement with intact leads. No procedural complication identified. Report Dictated on Electronically Signed By: Xiang Miranda MD Electronically Signed Date/Time: 04/08/2024 12:12 PM EDT [facility] XR Chest 2 Viewson Recent pacemaker placement with intact leads. No procedural complication identified. Report Dictated on Electronically Signed By: Xiang Miranda MD Electronically Signed Date/Time: 04/08/2024 12:12 PM EDT [facility] Patient Name: LITO GONZALEZ : 1950 Exam Date/Time: 04/08/2024 09:54 Procedure: XR CHEST 2 VIEWS Ordering Provider: MCKNIGHT SHARON Reason For Exam: Post PPM Implant CHEST X-RAY PA/LATERAL CLINICAL INDICATION: Post PPM Implant TECHNIQUE: Frontal and lateral plain films of the chest were obtained. COMPARISON: None FINDINGS: Cardiomediastinal silhouette: There is a left-sided pacemaker device with intact leads in the right atrium and ventricle. Heart size is within normal limits. There is a prosthetic aortic valve. Lungs: No pneumothorax or pleural effusion. No lung consolidation. Bones: Degenerative changes are seen in the thoracic spine and shoulders. No acute osseous findings. [facility] Xiang Miranda M D - 04/08/2024 Patient Name: LITO GONZALEZ : 1950 Exam Date/Time: 04/08/2024 09:54 Procedure: XR CHEST 2 VIEWS Ordering Provider: MCKNIGHT SHARON Reason For Exam: Post PPM Implant CHEST X-RAY PA/LATERAL CLINICAL INDICATION: Post PPM Implant TECHNIQUE: Frontal and lateral plain films of the chest were obtained. COMPARISON: None FINDINGS: Cardiomediastinal silhouette: There is a left-sided pacemaker device with intact leads in the right atrium and ventricle. Heart size is within normal limits. There is a prosthetic aortic valve. Lungs: No pneumothorax or pleural effusion. No lung consolidation. Bones: Degenerative changes are seen in the thoracic spine and shoulders. No acute osseous findings. IMPRESSION: Recent pacemaker placement with intact leads. No procedural complication identified. Report Dictated on Electronically Signed By: Xiang Miranda MD Electronically Signed Date/Time: 04/08/2024 12:12 PM EDT [facility] Radiology Study observation (narrative) [facility] XR Chest 2 ViewsOrdered By: Xiang Miranda on 04-08-2024 [facility] Work Phone: 36on 04-07-2024 36 scheduled Normal [facility] 36 Can I have an order for a 1 mo follow up echo please? Normal [facility] BASIC METABOLIC PANELon 03-29 Anion gap [Moles/Vol] 4 mmol/L Normal 3-13 [facility] Comment on above: Performed By: #### L AB15 #### Supplier Quality Engineering Manager: GRISEL GARZA ([phone]) [facility] ([facility]) [address] [place] [address] Calcium [Mass/Vol] 8.9 mg/dL Normal 8.4-10.4 [facility] Comment on above: Performed By: #### L AB15 #### Supplier Quality Engineering Manager: GRISEL GARZA ([phone]) [facility] [address] [place] [address] [place] Chloride [Moles/Vol] 109 mmol/L High 98-107 [facility] Comment on above: Performed By: #### L AB15 #### Supplier Quality Engineering Manager: GRISEL GARZA ([phone]) [facility] [address] [place] [address] [place] CO2 [Moles/Vol] 23 mmol/L Normal 22-30 [facility] Comment on above: Performed By: #### L AB15 #### Supplier Quality Engineering Manager: GRISEL GARZA ([phone]) [facility] ([facility]) [address] [place] [address] [place] Creatinine [Mass/Vol] 0.79 mg/dL Normal 0.52-1.04 [facility] Comment on above: Performed By: #### L AB15 #### Supplier Quality Engineering Manager: GRISEL GARZA ([phone]) [facility] ([facility] [address] [place] [address] GLOMERULAR FILTRATION RATE ML/MIN/1.73 SQ M.PREDICTED 78.1 mL/min/1.73m*2 Normal >60.0 [facility] Comment on above: Result Comment: Calc ulation based on the Chronic Kidney Disease Epidemiology Collaboration (CKD-EPI) equation refit without adjustment for race Performed By: #### L AB15 #### Supplier Quality Engineering Manager: GRISEL GARZA ([phone]) [facility] ([facility]) [address] [place] [address] Glucose [Mass/Vol] 270 mg/dL High 70-100 [facility] Comment on above: Performed By: #### L AB15 #### Supplier Quality Engineering Manager: GRISEL GARZA ([phone]) [facility] ([facility]) [address] [place] [address] Potassium [Moles/Vol] 4.1 mmol/L Normal 3.5-5.1 [facility] Comment on above: Performed By: #### L AB15 #### Supplier Quality Engineering Manager: GRISEL GARZA ([phone]) [facility] [address] [place] [address] Sodium [Moles/Vol] 136 mmol/L Normal 135-145 [facility] Comment on above: Performed By: #### L AB15 #### Supplier Quality Engineering Manager: GRISEL AGRZA ([phone]) [facility] ([facility]) [address] [place] [address] Urea nitrogen [Mass/Vol] 20 mg/dL High 7-17 [facility] Comment on above: Performed By: #### L AB15 #### Supplier Quality Engineering Manager: GRISEL GARZA ([phone]) [facility] ([facility]) [address] [place] [address] Basic metabolic 1998 panelon 04-07-2024 Anion gap [Moles/Vol] 4 mmol/L 3 - 13 mmol/L [facility] Calcium [Mass/Vol] 8.9 mg/dL 8.4 - 10. 4 mg/dL [facility] Chloride [Moles/Vol] 109 mmol/L High 98 - 10 7 mmol/L [facility] CO2 [Moles/Vol] 23 mmol/L 22 - 30 mmol/L [facility] [employer] Creatinine [Mass/Vol] 0.79 mg/dL 0.52 - 1.04 mg/dL [facility] [employer] GFR/1.73 sq M.predicted (S/P/Bld) [Vol rate/Area] 78.1 mL/min - PINF [facility] [employer] Comment on above: Calculation based on the Chronic Kidney Disease Epidemiology Collaboration (CKD-EPI) equation refit without adjustment for race Glucose [Mass/Vol] 270 mg/dL High 70 - 100 mg/dL [facility] [employer] Interpretation and review of laboratory results Abnormal [facility] [employer] Potassium [Moles/Vol] 4.1 mmol/L 3.5 - 5.1 mmol/L [facility] [employer] Sodium [Moles/Vol] 136 mmol/L 135 - 145 mmol/L [facility] [employer] Urea nitrogen [Mass/Vol] 20 mg/dL High 7 - 17 mg/d L [facility] [employer] [facility] [employer] CARECOORDon 04-07-2024 [facility] Care Managment Initial Assessment Date: 04/07/2024 Patient Name: Lito Gonzalez : 1950 Patient Information Source of Information: Patient Cognition/Language: WFL - Within Functional Limits Permission given to speak with 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 utilities 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/[facility] as indicated: Yes Confirmation of Payer with patient/family: Yes Payer Name: [employer] [place]: No Confirmation of Primary Care Physician: Confirmed PCP Name: Abby Mcclellan Seen in last 2 years?: Yes Primary Caregiver: Self If assistance needed, confirmed caregiver ready, willing and able to care for patient at discharge: Confirmed with: Living Arrangements Current Residence: House Number of Floors 2 Number of Entry Steps: Bed/Bath Levels: Both second floor Facility: Facility Name: Plan to Return: Lives with: Spouse/significant other Support Systems: Spouse/significant other, Family members Activities of Daily Living Ambulation: Assistance (using a FWW) Bathing/Dressing: Independent Elimination/Continenc e/Toileting: Independent Feeding: Independent Who Assists with Activities of Daily Living: Instrumental Activities of Daily Living Prescription Coverage: Yes [facility]acy Used: [facility] Medication Management: Independent Transportation/Shoppi ng: Independent Transportation Mode: Car Needs Assistance with Transportation at Discharge: No Meal Preparation: Independent Laundry/Cleaning: Independent Finances/Bill Paying: Independent Communication: Independent Types of Care Services/Equipment Utilized Care Services: Dialysis Type: Durable Medical Equipment: Walker Patient's Goal/Discharge Plan Patient expects to be discharged to: home Discharge Planning Actions: No needs identified Patient's Choice Rights and [employer] and Collaborative Relationships Disclosed as Indicated for Post-Acute Care: Interdisciplinary Team Engagement: Social Work Referral for: Additional Information: Patient admitted to [facility] ICU s/p TAVR complicated by CHB today requiring PPM. Spoke with patient and at bedside, introduced self and role. Patient from home with , is using a walker for ambulation otherwise is independent, has PCP and prescription coverage, will have a ride home and denies discharge needs. Breonna Jimenez RN Normal [facility] CBC (HEMOGRAM)on 04-07-2024 Erythrocyte distribution width (RBC) [Ratio] 13.5 % Normal 11.5-15.0 [facility] Comment on above: Performed By: #### L [id number] #### Supplier Quality Engineering Manager: GRISEL GARZA ([phone]) [address] Hematocrit (Bld) [Volume fraction] 40.5 % Normal 35.0-47.0 [facility] Comment on above: Performed By: #### L [id number] #### Supplier Quality Engineering Manager: GRISEL [id number]) [address] Hemoglobin (Bld) [Mass/Vol] 13.1 g/dL Normal 11.7-16.0 [facility] Comment on above: Performed By: #### L [id number] #### Supplier Quality Engineering Manager: GRISEL [id number]) [address] MCH (RBC) [Entitic mass] 30.1 pg Normal 26.0-34.0 [facility] Comment on above: Performed By: #### L [id number] #### Supplier Quality Engineering Manager: GRISEL [id number]) [address] [address] [place] MCHC 32.3 % Normal 30.5-36.0 [facility] Comment on above: Performed By: #### L [id number] #### Supplier Quality Engineering Manager: GRISEL GARZA ([phone]) [facility] ([facility]) [address] [place] [address] MCV (RBC) [Entitic vol] 93.1 fL Normal 77.0-99.0 S [facility] Comment on above: Performed By: #### L [id number] #### Supplier Quality Engineering Manager: GRISEL GARZA ([phone]) [facility] ([facility]) [address] [place] [address] Platelet mean volume (Bld) [Entitic vol] 11.5 fL Normal 9.0-12.7 [facility] Comment on above: Performed By: #### L [id number] #### Supplier Quality Engineering Manager: GRISEL GARZA ([phone]) [facility] ([facility]) [address] [place] [address] Platelets (Bld) [#/Vol] 168 10*3/uL Normal 140-440 [facility] Comment on above: Performed By: #### L [id number] #### Supplier Quality Engineering Manager: GRISEL GARZA ([phone]) [facility] ([facility]) [address] [place] [address] RBC (Bld) [#/Vol] 4.35 10*6/uL Normal 3.80-5.20 [facility] Comment on above: Performed By: #### L [id number] #### Supplier Quality Engineering Manager: GRISEL GARZA ([phone]) [facility] ([facility]) [address] [place] [address] WBC (Bld) [#/Vol] 9.3 10*3/uL Normal 3.6-10.7 [facility] Comment on above: Performed By: #### L [id number] #### Supplier Quality Engineering Manager: GRISEL GARZA ([phone]) [facility] ([facility]) [address] [place] [address] CBC panel Auto (Bld)on 04-07 Erythrocyte distribution width (RBC) [Ratio] 13.5 % 11.5 - 15.0 % [facility] Hematocrit (Bld) [Volume fraction] 40.5 % 35.0 - 47.0 % [facility] Hemoglobin (Bld) [Mass/Vol] 13.1 g/dL 11.7 - 16.0 g/dL [facility] Interpretation and review of laboratory results Normal [facility] MCH (RBC) [Entitic mass] 30.1 pg 26. 0 - 34.0 pg [facility] MCHC (RBC) [Mass/Vol] 32.3 % 30.5 - 36.0 % [facility] MCV (RBC) [Entitic vol] 93.1 fL 77.0 - 99.0 fL [facility] Platelet mean volume (Bld) [Entitic vol] 11.5 fL 9.0 - 12.7 fL [facility] Platelets (Bld) [#/Vol] 168 10*3/uL 140 - 440 10*3/uL [facility] RBC (Bld) [#/Vol] 4.35 10*6/uL 3.80 - 5.2 0 10*6/uL [facility] WBC (Bld) [#/Vol] 9.3 10*3/uL 3.6 - 10.7 10*3/uL [facility] Consulton 04-07-2024 Consult [facility] [place] [facility]iology Consult Note Reason for Consult/Chief Complaint: Complete heart block Referring provider: Ayah Established ornamenter hand: Ayah History of Present Illness: Lito Gonzalez is a 73 y.o. female who was referred urgently by structural heart due to episode of complete heart block. She has a history of right bundle branch block and left posterior fascicular block but denies prior episodes of bradycardia or syncope. She did states she has had prior episodes of tachycardia episodes. She apparently carries a diagnosis of atrial fibrillation but from the outside cardiology I do not have access to EKGs demonstrating his arrhythmia. She has critical aortic stenosis and yesterday had TAVR. Today she had multiple episodes of complete heart block once associated with loss of consciousness briefly. She denies prior history of syncope before the TAVR procedure. Assessment/Plan HF NYHA Class [] I [] II [] III [] IV []Unable to assess The patient new onset complete heart block. She has baseline bifascicular block and no episodes of complete heart block after TAVR. The risks and benefits of a permanent pacemaker were discussed and she agrees to proceed. Medications: aspirin, 81 mg, Oral, Daily atropine, , , glipiZIDE, 10 mg, Oral, qAM AC [Held by provider] metoprolol succinate XL, 25 mg, Oral, Daily mupirocin, 1 Application, Nasal, BID sodium chloride 0.9%, 10 mL, IntraVENous, 2 times per day Infusion Medications: Physical Examination: Vitals: 04/07/24 0945 04/07/24 0946 04/07/24 0947 04/07/24 0949 BP: 105/59 BP Location: Patient Position: Pulse: 110 (!) 24 (!) 49 59 Resp: (!) 28 20 (!) 31 Temp: TempSrc: SpO2: 94% 94% 96% Weight: Height: Intake/Output Summary (Last 24 hours) at 04/07/2024 1200 Last data filed at 04/07/2024 0608 Gross per 24 hour Intake 1240 ml Output 30 ml Net 1210 ml Wt Readings from Last 3 Encounters: 04/07/24 243 lb (110 kg) 03/10/24 249 lb 1.9 oz (113 kg) 03/10/24 250 lb (113 kg) Physical Exam Constitutional: Appearance: Normal appearance. She is obese. She is not ill-appearing. Eyes: General: No scleral icterus. Extraocular Movements: Extraocular movements intact. Pupils: Pupils are equal, round, and reactive to light. Cardiovascular: Rate and Rhythm: Regular rhythm. Tachycardia present. Heart sounds: No gallop. Pulmonary: Effort: Pulmonary effort is normal. Breath sounds: Normal breath sounds. Musculoskeletal: General: No swelling. Skin: General: Skin is warm and dry. Neurological: Mental Status: She is alert and oriented to person, place, and time. Psychiatric: Mood and Affect: Mood normal. Thought Content: Thought content normal. Laboratory Tests: Recent Labs 04/06/24 1422 04/07/24 0007 NA 137 136 K 3.4* 4.1 CL 112* 109* CO2 21* 23 BUN 17 20* CREATININE 0.55 0.79 EGFR >90.0 78.1 No results for input(s): CKTOTAL, CKMB, CKMBINDEX, TROPONINI in the last 72 hours. Recent Labs 04/06/24 1422 04/07/24 0007 WBC 7.2 9.3 HGB 11.7 13.1 HCT 36.1 40.5 MCV 93.8 93.1 PLT 156 168 No results found for: HGBA1C No results found for: TSH No results found for: CHOL No results found for: HDL No results found for: LDLCALC No results found for: TRIG No results found for: CHOLHDL No results found for: LDLCHOLESTER No results for input(s): BNP in the last 72 hours. No results for input(s): INR in the last 72 hours. Results from last 7 days Lab Units 04/01/24 0000 AST U/L 21 ALT U/L 26 Cardiac Tests Personally Reviewed: Last EKG 04/06/24 ECG 12-LEAD (Preliminary) This result has not been signed. Information might be incomplete. Impression Sinus tachycardia RBBB and LPFB Nonspecific repol abnormality, lateral leads Telemetry findings: Sinus rhythm with multiple episodes of complete heart block Reports reviewed: Last Echo 04/06/24 TRANSTHORACIC ECHOCARDIOGRAM (TTE) COMPLETE (CONTRAST/BUBBLE/3D PRN) 04/07/2024 11:40 AM (Final) Interpretation Summary Aortic Valve: Marsh Makenzie 3 Ultra bioprosthetic aortic valve with a size of 23mm mm. AV mean gradient is 12 mmHg. No cusp thickening. No cusp calcification. No regurgitation. No paravalvular regurgitation. No stenosis. AV mean gradient is 12 mmHg. Left Ventricle: Left ventricle size is normal. Mildly increased wall thickness. Normal left ventricular systolic function. EF by 2D Simpsons Biplane is 66%. Normal wall motion. Right Ventricle: Right ventricle size is normal. Normal systolic function. Signed by: Smith Nobles MD on 04/07/2024 11:40 AM Last Cath 04/06/24 CARDIAC PROCEDURE 04/06/2024 1:41 PM (Final) Conclusion Successful TAVR with a 23mm Makenzie S3u, via right transfemoral approach TAVR Procedural Report Interventional Cardiologists: -Srinivasa Poon MD -Devaughn Young MD (F (more content not included)... 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 female with PMH significant for atrial fibrillation, aortic stenosis, DM, underlying bifascicular block admitted for TAVR, which was performed successfully on 04/06. EP service is consulted as patient now with reported complete heart block on telemetry associated with reported syncope per nursing staff. On review of telemetry, patient with periods of both SVT into the 170s and high-grade AV block today with, at one point, 8 consecutive QRS complexes dropped in a row, and with other periods of 4:1 AV block and 3:1 AV block. Dose of atropine given by nursing staff during a prolonged run of block with improvement in HR. During my discussion with the patient this morning, she denies memory of her syncopal episode. Feels very tired and thinks she fell asleep earlier rather than syncopized. Denies heart palpitations, chest pain, lightheadedness. Has chronic LE edema. Assessment/Plan High-Grade AV Block Syncope Recent TAVR - will place PPM this afternoon in the setting of recurrent episodes associated with symptoms SVT - resume home BB after PPM placement Medications: aspirin, 81 mg, Oral, Daily atropine, , , glipiZIDE, 10 mg, Oral, qAM AC [Held by provider] metoprolol succinate XL, 25 mg, Oral, Daily mupirocin, 1 Application, Nasal, BID sodium chloride 0.9%, 10 mL, IntraVENous, 2 times per day Infusion Medications: Physical Examination: Vitals: 04/07/24 0945 04/07/24 0946 04/07/24 0947 04/07/24 0949 BP: 105/59 BP Location: Patient Position: Pulse: 110 (!) 24 (!) 49 59 Resp: (!) 28 20 (!) 31 Temp: TempSrc: SpO2: 94% 94% 96% Weight: Height: Intake/Output Summary (Last 24 hours) at 04/07/2024 1040 Last data filed at 04/07/2024 0608 Gross per 24 hour Intake 1240 ml Output 30 ml Net 1210 ml Wt Readings from Last 3 Encounters: 04/07/24 243 lb (110 kg) 03/10/24 249 lb 1.9 oz (113 kg) 03/10/24 250 lb (113 kg) Physical Exam Constitutional: Appearance: She is not diaphoretic. Comments: Sleeping upon my entrance to the room but easily awakened HENT: Head: Normocephalic and atraumatic. Nose: No rhinorrhea. Eyes: General: No scleral icterus. Cardiovascular: Rate and Rhythm: Regular rhythm. Bradycardia present. Heart sounds: No murmur heard. No friction rub. No gallop. Pulmonary: Effort: Pulmonary effort is normal. Breath sounds: Normal breath sounds. No wheezing. Abdominal: Palpations: Abdomen is soft. Tenderness: There is no abdominal tenderness. Musculoskeletal: Right lower leg: Edema present. Left lower leg: Edema present. Skin: General: Skin is warm and dry. Psychiatric: Mood and Affect: Mood normal. Behavior: Behavior normal. Laboratory Tests: Recent Labs 04/06/24 1422 04/07/24 0007 NA 137 136 K 3.4* 4.1 CL 112* 109* CO2 21* 23 BUN 17 20* CREATININE 0.55 0.79 EGFR >90.0 78.1 No results for input(s): CKTOTAL, CKMB, CKMBINDEX, TROPONINI in the last 72 hours. Recent Labs 04/06/24 1422 04/07/24 0007 WBC 7.2 9.3 HGB 11.7 13.1 HCT 36.1 40.5 MCV 93.8 93.1 PLT 156 168 No results found for: HGBA1C No results found for: TSH No results found for: CHOL No results found for: HDL No results found for: LDLCALC No results found for: TRIG No results found for: CHOLHDL No results found for: LDLCHOLESTER No results for input(s): BNP in the last 72 hours. No results for input(s): INR in the last 72 hours. Results from last 7 days Lab Units 04/01/24 0000 AST U/L 21 ALT U/L 26 No results found for: IRON, TIBC, FERRITIN Cardiac Tests Personally Reviewed: Last EKG 04/06/24 ECG 12-LEAD (Preliminary) This result has not been signed. Information might be incomplete. Impression Sinus tachycardia RBBB and LPFB Anteroseptal infarct, old Telemetry findings: intermittent SVT to 170, high-grade AV block Reports reviewed: Last Echo 04/06/24 TRANSTHORACIC ECHOCARDIOGRAM (TTE) COMPLETE (CONTRAST/BUBBLE/3D PRN) (Preliminary) This result has not been signed. Information might be incomplete. Interpretation Summary Aortic Valve: Marsh Makenzie 3 Ultra bioprosthetic aortic valve with a size of 23mm mm. AV mean gradient is 12 mmHg. No cusp thickening. No cusp calcification. No regurgitation. No stenosis. AV peak gradient is 21 mmHg. AV peak velocity is 2.3 m/s. LVOT:AV VTI Index is 0.58. Left Ventricle: Left ventricle size is normal. Mildly increased wall thickness. Normal left ventricular systolic function. EF by 2D Simpsons Biplane is 66%. Normal wall motion. Right Ventricle: Right ventricle size is normal. Normal systolic function. Aorta: Normal sized annulus and sinuses of Valsalva. Mildly dilated ascending (more content not included)... Normal [facility] ECG 12-LEADon 04-07-2024 ECG 12-LEAD IMPRESSION: Sinus arrhythmia RBBB and LPFB Nonspecific ST and T wave changes Electronically Signed On 04-07-2024 10:38:52 EDT by Charles Dunaway Normal [facility] ECG 12-LEAD IMPRESSION: Sinus rhythm RBBB and LPFB Nonspecific ST and T wave changes Electronically Signed On 04-07-2024 10:38:42 EDT by Charles Dunaway [facility] IDNon 04-07-2024 IDN Problem: Cardiovascular - Adult Goal: Maintains optimal cardiac output and hemodynamic stability Outcome: Progressing Goal: Absence of cardiac dysrhythmias or at baseline Outcome: Progressing Problem: Hematologic - Adult Goal: Maintains hematologic stability Outcome: Progressing Normal [facility] Laboratory - Chemistry and C hemistry - challengeon 04-07-2024 Glucose [Mass/Vol] 162 mg/dL High 70 - 100 mg/dL [facility] [employer] Glucose [Mass/Vol] 222 mg/dL High 70 - 100 mg/dL [facility] [employer] Glucose [Mass/Vol] 208 mg/dL High 70 - 100 mg/dL [facility] [employer] No Panel Informationon 04-07 Interpretation and review of laboratory results Abnormal [facility] [employer] Performed by: [facility], [address] [place] [address] CLIA ID: [id number] [facility] Interpretation and review of laboratory results Abnormal [facility] [employer] Performed by: [facility], [address] [place] [id number] CLIA ID: [id number] [facility] Sinus arrhythmia RBBB and LPFB Nonspecific ST and T wave changes Electronically Signed On 04-07-2024 10:38:52 EDT by Charles Burgess MD - 04/07/2024 IMPRESSION: Sinus arrhythmia RBBB and LPFB Nonspecific ST and T wave changes Electronically Signed On 04-07-2024 10:38:52 EDT by Charles Dunaway [facility] [employer] P [place] 35 degrees [facility] MA Interval 174 ms [facility] QRS [place] 94 degrees [facility] QRSD Interval 143 ms [facility] QT Interval 375 ms [facility] [employer] QTC Interval 483 ms [facility] [employer] T Wave [place] -67 degrees [facility] [employer] Sinus rhythm RBBB and LPFB Nonspecific ST and T wave changes Electronically Signed On 04-07-2024 10:38:42 EDT by Charles Burgess MD - 04/07/2024 IMPRESSION: Sinus rhythm RBBB and LPFB Nonspecific ST and T wave changes Electronically Signed On 04-07-2024 10:38:42 EDT by Charles Dunaway [facility] Interpretation and review of laboratory results Abnormal [facility] [employer] Performed by: [facility], [address] [place] [id number] CLIA ID: [id number] [facility] [employer] [facility] [employer] No Panel InformationOrdered By: Charles Dunaway on 04-07-2024 P [place] 51 degrees [facility] Work Phone: MA Interval 194 ms [facility] Work Phone: QRS [place] 114 degrees [facility] Work Phone: QRSD Interval 144 ms [facility] Work Phone: QT Interval 406 ms [facility] Work Phone: QTC Interval 461 ms [facility] Work Phone: T Wave [place] 208 degrees [facility] Work Phone: [facility] Work Phone: Nursing Noteon 04-07-2024 Nursing Note 1054: Pt monitor alarming bradycardia. This RN to patient's room, pt is alert, HR returned to baseline ST in low 100s. Pt asymptomatic and all other VSS. Pt strip showing short episode of high grade AV block with several dropped QRS complexes. 1057: Pt monitor alarmed for tachycardia. HR was seen at 177. Pt remains asymptomatic. Denies chest pain, SOB, palpitations. This was followed by a prolonged episode of high grade heart block with dropped QRS. After a few seconds, pt became unresponsive with labored breathing. Code Blue called. Minh, RN pushed 1 mg atropine with return of patient to a perfusing bradycardic rhythm prior to CPR being initiated. Pt regained consciousness and denied any discomfort. 1058: Dr. Lucas to bedside. Pacing pads placed on patient and connected to defibrillator, transcutaneous pacing not initiated at this time as pt HR 110-120s. All other VSS. Lindsey Tolentino CNP to bedside. EP consult ordered. 1138: Pt had another episode of tachycardia with HR in 170s. All other VSS. Pt asymptomatic 1159: Dr. Okeefe to bedside for EP consult. Plan to take patient for permanent pacemaker placement. 1215: Pt taken to EP lab for Pacemaker placement. Consent signed. Normal [facility] Progress Noteon 04-07-2024 Progress Note Spoke with Mr. Jagdish kaiser regarding patient status. Questions answered. He will be here around 1-2 p today. He is aware that she will likely be going for pacemaker here shortly. Normal [facility] US Heart TransthoracicOrdere d By: Smith Nobles on 04-07-2024 Ascending Aorta 3.5 cm [facility] Work Phone: Ascending Aorta Index 1.75 cm/m2 [facility] Work Phone: AV Area by Peak Velocity 1.3 cm2 [facility] Work Phone: AV Area by VTI 1.[address] [facility] Work Phone: AV Mean Gradient 12 mmHg [facility] Work Phone: AV Mean Velocity 1.6 m/s [facility] Work Phone: AV Peak Gradient 21 mmHg [facility] Work Phone: [phone] AV Peak Velocity 2.3 m/s [facility] Work Phone: AV Velocity Ratio 0.52 [facility] Work Phone: [phone] AV VTI 37.1 cm [facility] Work Phone: [phone] BENITA/BSA Peak Velocity 0.7 cm2/m2 [facility] Work Phone: [phone] BENITA/BSA VTI 0.8 cm2/m2 [facility] Work Phone: [phone] EF BP 66 % 55 - 100 % [facility] Work Phone: Fractional Shortening 2D 30 % 28 - 44 % [facility] [employer] Work Phone: Interpretation and review of laboratory results Abnormal [facility] [employer] Work Phone: [phone] IVC Diameter 1.7 cm [facility] Work Phone: IVSd 1.4 cm Abnormal 0.6 - 0.9 cm [facility] [employer] Work Phone: [phone] LA Volume 2C 44 mL 22 - 52 mL [facility] [employer] Work Phone: [phone] LA Volume 4C 63 mL Abnormal 22 - 52 mL [facility] [employer] Work Phone: [phone] LA Volume A/L 62 mL [facility] Work Phone: LA Volume BP 59 mL Abnormal 22 - 52 mL [facility] [employer] Work Phone: LA Volume Index 2C 22 mL/m2 16 - 34 mL/m2 [facility] Work Phone: LA Volume Index 4C 32 mL/m2 16 - 34 mL/m2 [facility] Work Phone: [phone] LA Volume Index A/L 31 mL/m2 16 - 34 mL/m2 [facility] [employer] Work Phone: LA Volume Index BP 30 ml/m2 16 - 34 ml/m2 [facility] [employer] Work Phone: [phone] LV E' Lateral Velocity 8 cm/s [facility] Work Phone: LV EDV A2C 56 mL [facility] Work Phone: LV EDV A4C 62 mL [facility] Work Phone: LV EDV BP 63 mL 56 - 104 mL [facility] Work Phone: LV EDV Index A2C 28 mL/m2 [facility] Work Phone: LV EDV Index A4C 31 mL/m2 [facility] Work Phone: LV EDV Index BP 32 mL/m2 [facility] Work Phone: LV Ejection Fraction A2C 68 % [facility] Work Phone: LV Ejection Fraction A4C 69 % [facility] [employer] Work Phone: LV ESV A2C 18 mL [facility] [employer] Work Phone: LV ESV A4C 20 mL [facility] [employer] Work Phone: LV ESV BP 21 mL 19 - 49 mL [facility] [employer] Work Phone: LV ESV Index A2C 9 mL/m2 [facility] Work Phone: LV ESV Index A4C 10 mL/m2 [facility] Work Phone: LV ESV Index BP 11 mL/m2 [facility] Work Phone: LV Mass 2D 175.8 g Abnormal 67 - 162 g [facility] [employer] Work Phone: LV Mass 2D Index 87.9 g/m2 43 - 95 g/m2 [facility] [employer] Work Phone: LV RWT Ratio 0.55 [facility] [employer] Work Phone: LVIDd 4.0 cm 3.9 - 5.3 cm [facility] [employer] Work Phone: LVIDd Index 2.00 cm/m2 [facility] [employer] Work Phone: LVIDs 2.8 cm [facility] [employer] Work Phone: LVIDs Index 1.40 cm/m2 [facility] [employer] Work Phone: LVOT Area 2.5 cm2 [facility] [employer] Work Phone: LVOT Cardiac Output 6.8 liter/minute [facility] Work Phone: LVOT Diameter 1.8 cm [facility] [employer] Work Phone: LVOT Mean Gradient 3 mmHg [facility] [employer] Work Phone: LVOT Peak Gradient 5 mmHg [facility] [employer] Work Phone: LVOT Peak Velocity 1.2 m/s [facility] [employer] Work Phone: [phone] LVOT Stroke Volume Index 27.2 mL/m2 [facility] [employer] Work Phone: LVOT SV 54.4 ml [facility] [employer] Work Phone: LVOT VTI 21.4 cm [facility] [employer] Work Phone: LVOT:AV VTI Index 0.58 [facility] Work Phone: LVPWd 1.1 cm Abnormal 0.6 - 0.9 cm [facility] [employer] Work Phone: Pulm Vein A Duration 108.5 ms [facility] [employer] Work Phone: [phone] Pulm Vein A Velocity 0.4 m/s [facility] [employer] Work Phone: [phone] Pulm Vein Peak D Velocity 0.5 m/s [facility] [employer] Work Phone: [phone] Pulm Vein Peak S Velocity 0.4 m/s [facility] [employer] Work Phone: Pulm Vein S/D 0.8 [facility] h Work Phone: RA Area 4C 41.8 mL [facility] [employer] Work Phone: RA Area 4C 40.8 mL [facility] [employer] Work Phone: [phone] RV Basal Dimension 2.5 cm [facility] [employer] Work Phone: RV Free Wall Peak S' 11 cm/s [facility] [employer] Work Phone: RV Longitudinal Dimension 4.8 cm [facility] [employer] Work Phone: [phone] RV Mid Dimension 2.1 cm [facility] Work Phone: TAPSE 2.3 cm 1.7 cm [facility] Work Phone: [facility] Work Phone: US Heart Transthoracicon Aortic Valve: Frank s Makenzie 3 Ultra bioprosthetic aortic valve with a size of 23mm mm. AV mean gradient is 12 mmHg. No cusp thickening. No cusp calcification. No regurgitation. No paravalvular regurgitation. No stenosis. AV mean gradient is 12 mmHg. Left Ventricle: Left ventricle size is normal. Mildly increased wall thickness. Normal left ventricular systolic function. EF by 2D Simpsons Biplane is 66%. Normal wall motion. Right Ventricle: Right ventricle size is normal. Normal systolic function. Left Ventricle Left ventricle size is normal. Mildly increased wall thickness. Normal left ventricular systolic function. EF by 2D Simpsons Biplane is 66%. Normal wall motion. Indeterminate diastolic function. Right Ventricle Right ventricle size is normal. Normal systolic function. Left Atrium Left atrium size is normal. Right Atrium Right atrium size is normal. IVC/SVC IVC was not assessed. Mitral Valve Mildly thickened leaflets. Mild annular calcification. Trace regurgitation. No stenosis noted. Tricuspid Valve Valve structure is normal. Trace regurgitation. Aortic Valve Marsh Makenzie 3 Ultra bioprosthetic aortic valve with a size of 23mm mm. AV mean gradient is 12 mmHg. No cusp thickening. No cusp calcification. No regurgitation. No paravalvular regurgitation. No stenosis. AV mean gradient is 12 mmHg. Pulmonic Valve Valve structure is normal. Trace regurgitation. Ascending Aorta Normal sized annulus and sinuses of Valsalva. Mildly dilated ascending aorta. Ao ascending diameter is 3.5 cm. Pericardium No pericardial effusion. Septum No interatrial shunt visualized on color Doppler. Pulmonary Artery Pulmonary artery was not well visualized. Study Details Image quality: technically difficult. Heart rate: 112 bpm. Blood pressure: 125/52 mmHg. Technical qualifiers: Technically difficult study and technically difficult study due to patient's body habitus. No contrast was given. CV CPACS Vital signsOrdered By: Charles Dunaway on 04-07-2024 Heart rate 77 /min bpm [facility] Work Phone: Vital signson 04-07-2024 Heart rate 99 /min bpm [facility] ABO and Rh group Confirm Nom (Bld)on 04-06-2024 ABO group Nom (Bld) O [facility] D Ag Ql (RBC) Negative [facility] BASIC METABOLIC PANELon Anion gap [Moles/Vol] 4 mmol/L Normal 3-13 [facility] Comment on above: Performed By: #### L [id number] #### Supplier Quality Engineering Manager: GRISEL GARZA ([phone]) [facility] ([facility]) [address] [place] [address] Calcium [Mass/Vol] 7.7 mg/dL Low 8.4-10.4 [facility] Comment on above: Performed By: #### L [id number] #### Supplier Quality Engineering Manager: GRISEL GARZA ([phone]) [facility] ([facility]) [address] [place] [address] [place] Chloride [Moles/Vol] 112 mmol/L High 98-107 [facility] Comment on above: Performed By: #### L [id number] #### Supplier Quality Engineering Manager: GRISEL GARZA ([phone]) [facility] ([facility]) [address] [place] [address] [place] CO2 [Moles/Vol] 21 mmol/L Low 22-30 [facility] Comment on above: Performed By: #### L [id number] #### Supplier Quality Engineering Manager: GRISEL GARZA ([phone]) [facility]) [address] [place] [address] Creatinine [Mass/Vol] 0.55 mg/dL Normal 0.52-1.04 [facility] Comment on above: Performed By: #### L [id number] #### Supplier Quality Engineering Manager: GRISEL GARZA ([phone]) [facility] ([facility]) [address] [place] [address] [place] GLOMERULAR FILTRATION RATE ML/MIN/1.73 SQ M.PREDICTED >90.0 Normal >60.0 [facility] Comment on above: Result Comment: Calc ulation based on the Chronic Kidney Disease Epidemiology Collaboration (CKD-EPI) equation refit without adjustment for race Performed By: #### L [id number] #### Supplier Quality Engineering Manager: GRISEL GARZA ([phone]) [facility] [address] [place] [address] Glucose [Mass/Vol] 158 mg/dL High 70-100 [facility] Comment on above: Performed By: #### L AB15 #### Supplier Quality Engineering Manager: GRISEL GARZA ([phone]) [facility] ([facility]) [address] [place] [address] Potassium [Moles/Vol] 3.4 mmol/L Low 3.5-5.1 [facility] Comment on above: Performed By: #### L AB15 #### Supplier Quality Engineering Manager: GRISEL GARZA ([phone]) [facility] ([facility]) [address] [place] [address] Sodium [Moles/Vol] 137 mmol/L Normal 135-145 [facility] Comment on above: Performed By: #### L AB15 #### Supplier Quality Engineering Manager: GRISEL GARZA ([phone]) [facility] ([facility]) [address] [place] [address] Urea nitrogen [Mass/Vol] 17 mg/dL Normal 7-17 [facility] Comment on above: Performed By: #### L AB15 #### Supplier Quality Engineering Manager: GRISEL GARZA ([phone]) [facility]) [address] [place] [address] BLOOD TYPE AND SCREEN GELon 04-06-2024 ABO GROUPING O Normal [facility] Comment on above: Performed By: #### L [id number] ####Supplier Quality Engineering Manager: GRISEL GARZA ([phone])[facility] ([facility])[address] [place] [address] RH TYPE IN BLOOD Negative Normal [facility] Comment on above: Performed By: #### L [id number] ####Supplier Quality Engineering Manager: GRISEL GARZA ([phone])[facility] ([facility])[address] [place] [address] Basic metabolic 1998 panelon 04-06-2024 Anion gap [Moles/Vol] 4 mmol/L 3 - 13 mmol/L [facility] Calcium [Mass/Vol] 7.7 mg/dL Low 8.4 - 10. 4 mg/dL [facility] Chloride [Moles/Vol] 112 mmol/L High 98 - 10 7 mmol/L [facility] CO2 [Moles/Vol] 21 mmol/L Low 22 - 30 mmol/L [facility] Creatinine [Mass/Vol] 0.55 mg/dL 0.52 - 1.04 mg/dL [facility] GFR/1.73 sq M.predicted (S/P/Bld) [Vol rate/Area] - PINF [facility] Comment on above: Calculation based on the Chronic Kidney Disease Epidemiology Collaboration (CKD-EPI) equation refit without adjustment for race Glucose [Mass/Vol] 158 mg/dL High 70 - 100 mg/dL [facility] Interpretation and review of laboratory results Abnormal [facility] Potassium [Moles/Vol] 3.4 mmol/L Low 3.5 - 5.1 mmol/L [facility] Sodium [Moles/Vol] 137 mmol/L 135 - 145 mmol/L [facility] Urea nitrogen [Mass/Vol] 17 mg/dL 7 - 17 mg/d L [facility] Blood type and Crossmatch pa bill (Bld)on 04-06-2024 ABO group Nom (Bld) O [facility] Blood group antibody screen GEL Ql Negative [facility] D Ag Ql (RBC) Negative [facility] CBC (HEMOGRAM)on 04-06-2024 Erythrocyte distribution width (RBC) [Ratio] 13.5 % Normal 11.5-15.0 [facility] Comment on above: Performed By: #### L [id number] ####Supplier Quality Engineering Manager: GRISEL GARZA ([phone])[address] Hematocrit (Bld) [Volume fraction] 36.1 % Normal 35.0-47.0 [facility] Comment on above: Performed By: #### L [id number] ####Supplier Quality Engineering Manager: GRISEL GARZA ([phone])[address] Hemoglobin (Bld) [Mass/Vol] 11.7 g/dL Normal 11.7-16.0 [facility] Comment on above: Performed By: #### L [id number] ####Supplier Quality Engineering Manager: GRISEL GARZA ([id number])[facility] ([facility])[address] [place] [address] MCH (RBC) [Entitic mass] 30.4 pg Normal 26.0-34.0 [facility] Comment on above: Performed By: #### L [id number] ####Supplier Quality Engineering Manager: GRISEL GARZA ([id number])[facility])[address] [place] [address] MCHC 32.4 % Normal 30.5-36.0 [facility] Comment on above: Performed By: #### L [id number] ####Supplier Quality Engineering Manager: GRISEL GARZA ([id number])[facility])[address] [place] [address] MCV (RBC) [Entitic vol] 93.8 fL Normal 77.0-99.0 S [facility] Comment on above: Performed By: #### L [id number] ####Supplier Quality Engineering Manager: GRISEL GARZA ([id number])[facility] ([facility])[address] [place] [address] Platelet mean volume (Bld) [Entitic vol] 11.6 fL Normal 9.0-12.7 [facility] Comment on above: Performed By: #### L [id number] ####Supplier Quality Engineering Manager: GRISEL GARZA ([id number])[facility])[address] [place] [address] Platelets (Bld) [#/Vol] 156 10*3/uL Normal 140-440 [facility] Comment on above: Performed By: #### L [id number] ####Supplier Quality Engineering Manager: GRISEL GARZA ([id number])[facility])[address] [place] [address] RBC (Bld) [#/Vol] 3.85 10*6/uL Normal 3.80-5.20 [facility] Comment on above: Performed By: #### L [id number] ####Supplier Quality Engineering Manager: GRISEL GARZA ([phone])[facility])[address] [place] [address] WBC (Bld) [#/Vol] 7.2 10*3/uL Normal 3.6-10.7 [facility] Comment on above: Performed By: #### L [id number] ####Supplier Quality Engineering Manager: GRISEL GARZA ([id number])[facility] ([facility])[address] [place] [address] CBC panel Auto (Bld)on 04-06 Erythrocyte distribution width (RBC) [Ratio] 13.5 % 11.5 - 15.0 % [facility] Hematocrit (Bld) [Volume fraction] 36.1 % 35.0 - 47.0 % [facility] Hemoglobin (Bld) [Mass/Vol] 11.7 g/dL 11.7 - 16.0 g/dL [facility] Interpretation and review of laboratory results Normal [facility] MCH (RBC) [Entitic mass] 30.4 pg 26. 0 - 34.0 pg [facility] MCHC (RBC) [Mass/Vol] 32.4 % 30.5 - 36.0 % [facility] MCV (RBC) [Entitic vol] 93.8 fL 77.0 - 99.0 fL [facility] Platelet mean volume (Bld) [Entitic vol] 11.6 fL 9.0 - 12.7 fL [facility] Platelets (Bld) [#/Vol] 156 10*3/uL 140 - 440 10*3/uL [facility] RBC (Bld) [#/Vol] 3.85 10*6/uL 3.80 - 5.2 0 10*6/uL [facility] WBC (Bld) [#/Vol] 7.2 10*3/uL 3.6 - 10.7 10*3/uL [facility] Cardiac catheterization stud yon 04-06-2024 Successful TAVR with a 23mm Makenzie S3u, via right transfemoral approach TAVR Procedural Report Interventional Cardiologists: -Srinivasa Poon MD -Devaughn Young MD (Fellow) Cardiothoracic Surgeon: -Jayson Key MD Procedure: 1. A 23 MAKENZIE S3 VALVE IMPLANTATION. 2. TRANSFEMORAL TRANSCATHETER AORTIC VALVE REPLACEMENT. Preoperative Diagnosis: Severe and symptomatic aortic stenosis. Postoperative Diagnosis: Severe aortic stenosis. Anesthesia: Conscious Sedation History of Present Illness: This is a very pleasant 73 y.o. female with a history of severe and symptomatic aortic stenosis. her case was discussed in our multidisciplinary valve conference and was felt to be of appropriate candidacy for TAVR. The pros, cons, risks, benefits, and alternatives of transcatheter aortic valve replacement were reviewed with the patient, and questions were answered, she provided informed consent and wished to proceed with the procedure. Description of Procedure: The patient was brought to the operating suite by anesthesia. The patient was placed under light sedation. The patient was then cleaned, prepped and draped in the normal sterile manner. Access was then gained in the right femoral artery, right radial artery, and right femoral vein. Via the right femoral vein, a 6 [place] sheath was placed and temporary pacing wire was placed into the RV apex with appropriate capture, in addition sterile tubing was attached and given the anesthesia for central access. Via right radial artery, a 6-[place] sheath was placed and the pigtail catheter was placed into the aortic annulus with confirmation the implant angle. Via the right femoral artery, a 6-[place] sheath was placed. The patient was then heparinized. Next, two Perclose devices were used using the pre-close strategy. A Super Stiff wire was then placed through the second Perclose into the descending aorta. Then, a 14-[place] Makenzie E-sheath was introduced over the wire into the descending aorta. The sheath was then flushed. Next, an AL1 catheter and a straight wire were used to cross the aortic valve through the e- sheath. The straight wire was then removed and an Amplatz extra stiff wire (formed into a curve) was placed into the LV apex. Next, the AL1 catheter was removed. Next a 23mm Makenzie S3 valve was then advanced through the sheath into the descending aorta.The valve was then mounted on the balloon, the delivery catheter was flexed and advanced around the aortic arch and across the aortic annulus. The valve was then deployed under rapid pacing. Confirmation of an appropriate implant position and appropriately functioning valve was done using TTE. Next, the delivery catheter, extra stiff wire, and large sheath were removed and the Perclose devices were used for hemostasis. A radial band was used for hemostasis of the additional arterial site. Manual pressure was used for hemostasis of the femoral venous access site. Overall, the patient tolerated the procedure well with minimal blood loss. No immediate complications. The patient will return to the Cardiac Care unit for continued monitoring. It was a pleasure taking care of your patient while hospitalized at [facility]. I will continue to follow along while hospitalized. Please do not hesitate to call with any questions. [facility] Cardiac catheterization stud yOrdered By: Srinivasa Poon on 04-06-2024 [facility] [employer] Work Phone: IDNon 04-06-2024 IDN The patient is Moderately Unstable - Medium risk of patient condition declining or worsening The patient's goals for the shift include go home The clinical goals for the shift include hemodynamic stability Over the shift, the patient did not make progress toward the following goals. Barriers to progression include pt with poor short term memory, stable. Recommendations to address these barriers include continue to reinforce and monitor. Normal [facility] Laboratory - Chemistry and C hemistry - challengeon 04-06-2024 Glucose [Mass/Vol] 239 mg/dL High 70 - 100 mg/dL [facility] [employer] Glucose [Mass/Vol] 166 mg/dL High 70 - 100 mg/dL [facility] [employer] Glucose [Mass/Vol] 174 mg/dL High 70 - 100 mg/dL [facility] [employer] Glucose [Mass/Vol] 253 mg/dL High 70 - 100 mg/dL [facility] [employer] No Panel Informationon 04-06 Interpretation and review of laboratory results Abnormal [facility] [employer] Performed by: [facility], [address] [place] [address] CLIA ID: [id number] [facility] [employer] [facility] Interpretation and review of laboratory results Abnormal [facility] Performed by: [facility], [address] [place] [address] CLIA ID: [id number] [facility] [employer] [facility] Interpretation and review of laboratory results Abnormal [facility] Performed by: [facility], [address] [place] [address] CLIA ID: [id number] [facility] [employer] [facility] Interpretation and review of laboratory results Abnormal [facility] Performed by: [facility], [address] [place] [address] CLIA ID: [id number] [facility] Nursing Noteon 04-06-[address] Hernandez made aware of MBS 253 new orders received. Normal [facility] Op Noteon 04-06-2024 Op Note TAVR Procedural Report Interventional Cardiologists: -Srinivasa Poon MD -Devaughn Young MD (Fellow) Cardiothoracic Surgeon: -Jayson Key MD, who served as a collaborating cardiothoracic surgeon and was present for the procedure and remained available in the event that emergency surgical intervention was required. Procedure: 1. A 23 MAKENZIE S3 VALVE IMPLANTATION. 2. TRANSFEMORAL TRANSCATHETER AORTIC VALVE REPLACEMENT. Preoperative Diagnosis: Severe and symptomatic aortic stenosis. Postoperative Diagnosis: Severe aortic stenosis. Anesthesia: Conscious Sedation History of Present Illness: This is a very pleasant 73 y.o. female with a history of severe and symptomatic aortic stenosis. her case was discussed in our multidisciplinary valve conference and was felt to be of appropriate candidacy for TAVR. The pros, cons, risks, benefits, and alternatives of transcatheter aortic valve replacement were reviewed with the patient, and questions were answered, she provided informed consent and wished to proceed with the procedure. Description of Procedure: The patient was brought to the operating suite by anesthesia. The patient was placed under light sedation. The patient was then cleaned, prepped and draped in the normal sterile manner. Access was then gained in the right femoral artery, right radial artery, and right femoral vein. Via the right femoral vein, a 6 [place] sheath was placed and temporary pacing wire was placed into the RV apex with appropriate capture, in addition sterile tubing was attached and given the anesthesia for central access. Via right radial artery, a 6-[place] sheath was placed and the pigtail catheter was placed into the aortic annulus with confirmation the implant angle. Via the right femoral artery, a 6-[place] sheath was placed. The patient was then heparinized. Next, two Perclose devices were used using the pre-close strategy. A Super Stiff wire was then placed through the second Perclose into the descending aorta. Then, a 14-[place] Makenzie E-sheath was introduced over the wire into the descending aorta. The sheath was then flushed. Next, an AL1 catheter and a straight wire were used to cross the aortic valve through the e- sheath. The straight wire was then removed and an Amplatz extra stiff wire (formed into a curve) was placed into the LV apex. Next, the AL1 catheter was removed. Next a 23mm Makenzie S3 valve was then advanced through the sheath into the descending aorta.The valve was then mounted on the balloon, the delivery catheter was flexed and advanced around the aortic arch and across the aortic annulus. The valve was then deployed under rapid pacing. Confirmation of an appropriate implant position and appropriately functioning valve was done using TTE. Next, the delivery catheter, extra stiff wire, and large sheath were removed and the Perclose devices were used for hemostasis. A radial band was used for hemostasis of the additional arterial site. Manual pressure was used for hemostasis of the femoral venous access site. Overall, the patient tolerated the procedure well with minimal blood loss. No immediate complications. Normal [employer] [facility] Heart TransthoracicOrdere d By: Alejandro Walls on 04-06-2024 AV Area (Pre-TAVR) 0.5 cm2 [facility] Work Phone: AV Area by Peak Velocity 1.7 cm2 [facility] Work Phone: AV Area by VTI 1.7 cm2 [facility] Work Phone: AV Mean Gradient 4 mmHg [facility] Work Phone: AV Mean Gradient (Pre-TAVR) 46 mmHg [facility] Work Phone: AV Mean Velocity 0.9 m/s [facility] Work Phone: AV Peak Gradient 7 mmHg [facility] Work Phone: AV Peak Gradient (Pre-TAVR) 69 mmHg [facility] Work Phone: AV Peak Velocity 1.3 m/s [facility] Work Phone: AV Peak Velocity (Pre-TAVR) 4.1 m/s [facility] Work Phone: AV Velocity Ratio 0.62 [facility] Work Phone: AV VTI 24.9 cm [facility] Work Phone: BENITA/BSA Peak Velocity 0.8 cm2/m2 [facility] Work Phone: BENITA/BSA VTI 0.8 cm2/m2 [facility] Work Phone: EF BP 69 % 55 - 100 % [facility] Work Phone: Fractional Shortening 2D 20 % 28 - 44 % [facility] Work Phone: Interpretation and review of laboratory results Abnormal [facility] Work Phone: IVSd 1.4 cm Abnormal 0.6 - 0.9 cm [facility] Work Phone: LV EDV A2C 49 mL [facility] Work Phone: LV EDV A4C 83 mL [facility] Work Phone: LV EDV BP 69 mL 56 - 104 mL [facility] Work Phone: LV EDV Index A2C 24 mL/m2 [facility] Work Phone: LV EDV Index A4C 41 mL/m2 [facility] Work Phone: LV EDV Index BP 34 mL/m2 [facility] Work Phone: LV Ejection Fraction A2C 63 % [facility] Work Phone: LV Ejection Fraction A4C 74 % [facility] [employer] Work Phone: LV ESV A2C 18 mL [facility] Work Phone: LV ESV A4C 22 mL [facility] Work Phone: LV ESV BP 22 mL 19 - 49 mL [facility] Work Phone: LV ESV Index A2C 9 mL/m2 [facility] Work Phone: LV ESV Index A4C 11 mL/m2 [facility] Work Phone: LV ESV Index BP 11 mL/m2 [facility] Work Phone: LV Mass 2D 209.0 g Abnormal 67 - 162 g [facility] Work Phone: LV Mass 2D Index 103.4 g/m2 Abnormal 43 - 95 g/m2 [facility] Work Phone: LV RWT Ratio 0.70 [facility] Work Phone: LVIDd 4.0 cm 3.9 - 5.3 cm [facility] [employer] Work Phone: LVIDd Index 1.98 cm/m2 [facility] [employer] Work Phone: LVIDs 3.2 cm [facility] [employer] Work Phone: LVIDs Index 1.58 cm/m2 [facility] [employer] Work Phone: LVOT Area 2.8 cm2 [facility] [employer] Work Phone: LVOT Cardiac Output 2.8 liter/minute [facility] [employer] Work Phone: LVOT Diameter 1.9 cm [facility] Work Phone: LVOT Mean Gradient 1 mmHg [facility] [employer] Work Phone: LVOT Peak Gradient 2 mmHg [facility] [employer] Work Phone: LVOT Peak Velocity 0.8 m/s [facility] [employer] Work Phone: LVOT Stroke Volume Index 20.5 mL/m2 [facility] [employer] Work Phone: LVOT SV 41.4 ml [facility] [employer] Work Phone: LVOT VTI 14.6 cm [facility] [employer] Work Phone: LVOT:AV VTI Index 0.59 [facility]alt Work Phone: LVPWd 1.4 cm Abnormal 0.6 - 0.9 cm [facility] [employer] Work Phone: [facility] [employer] Work Phone: Heart Transthoracicon Left Ventricle: Left ventricle size is normal. Mildly increased wall thickness. Mass index 2D is 103.4 g/m2. Findings consistent with concentric hypertrophy. Normal left ventricular systolic function. EF by 2D Simpsons Biplane is 69%. Normal wall motion. Right Ventricle: Right ventricle size is normal. Normal systolic function. Aortic Valve: Pre TAVR: Calcified AV with severe stenosis. The peak and mean gradients are 69/46 mm Hg. The BENITA 0.6 cm2 with DI 0.19. Post TAVR: Marsh Makenzie 3 Ultra bioprosthetic aortic valve that is well-seated with a size of 23 mm. AV mean gradient is 4 mmHg. No regurgitation. No paravalvular regurgitation. AV peak velocity is 1.3 m/s. LVOT:AV VTI Index is 0.59. AV area by continuity VTI is 1.7 cm2. Technically difficult study. This echo was done to assist the successful placement of a TAVR valve. Left Ventricle Left ventricle size is normal. Mildly increased wall thickness. Mass index 2D is 103.4 g/m2. Findings consistent with concentric hypertrophy. Normal left ventricular systolic function. EF by 2D Simpsons Biplane is 69%. Normal wall motion. Right Ventricle Right ventricle size is normal. Normal systolic function. Mitral Valve Valve structure is normal. Calcified leaflets. Mild annular calcification. Trace regurgitation. No stenosis noted. Tricuspid Valve Trace regurgitation. Aortic Valve Pre TAVR: Calcified AV with severe stenosis. The peak and mean gradients are 69/46 mm Hg. The BENITA 0.6 cm2 with DI 0.19. Post TAVR: Marsh Makenzie 3 Ultra bioprosthetic aortic valve that is well-seated with a size of 23 mm. AV mean gradient is 4 mmHg. No regurgitation. No paravalvular regurgitation. AV peak velocity is 1.3 m/s. LVOT:AV VTI Index is 0.59. AV area by continuity VTI is 1.7 cm2. Pericardium Evidence of prominent epicardial fat. No pericardial effusion. Study Details Image quality: technically difficult. Heart rate: 96 bpm. Blood pressure: 141/76 mmHg. Technical qualifiers: Technically difficult study due to patient's body habitus and procedure performed with the patient in a supine position. No contrast was given. Structural Heart Pre Procedure Findings Severe aortic valve stenosis. Echo Additional Conclusions Technically difficult study. CV [facility] 36on 04-01-2024 36 Patient called me back and requested me to fax lab orders to [facility]. [phone] I faxed CBC and CMP orders only.Confirmed She is going today. Normal [facility] 36 Spoke with patient and she will have CMP and CBC completed at [facility] today. Jamie Godinez to fax lab orders Normal [facility] CBC W Auto Differential pane l (Bld)on 04-01-2024 Basophils (Bld) [#/Vol] 0.10 10*3/uL Normal <0.11 [facility] Comment on above: Order Comment: Speci men Type: BLOOD SPECIMENOrdering Facility: [facility] Address: [address] [place] [address] Performed By: #### 5 7021-8 ####[facility] LABCLIA [id number] [address] [address] [place] Basophils/100 WBC (Bld) 1.2 % Normal [facility] Comment on above: Order Comment: Speci men Type: BLOOD SPECIMENOrdering Facility: [facility] Address: [address] [place] [address] Performed By: #### 5 7021-8 ####[facility] LABCLIA [id number] [place] [address] [place] Differential cell count method Nom (Bld) Auto Normal [facility] Comment on above: Order Comment: Speci men Type: BLOOD SPECIMENOrdering Facility: [facility] Address: [address] [place] [address] Performed By: #### 5 7021-8 ####[facility] LABCLIA [id number] [place] [address] [place] Eosinophils (Bld) [#/Vol] 0.44 10*3/uL Normal <0.46 [facility] Comment on above: Order Comment: Speci men Type: BLOOD SPECIMENOrdering Facility: [facility] Address: [address] [place] [address] Performed By: #### 5 7021-8 ####[facility]CLIA [id number] [facility] [place] [id number] [place] Eosinophils/100 WBC (Bld) 5.1 % Normal [facility] Comment on above: Order Comment: Speci men Type: BLOOD SPECIMENOrdering Facility: [facility] Address: [address] [place] [address] Performed By: #### 5 7021-8 ####[facility]CLIA [id number] [facility] [place] [id number] [place] Erythrocyte distribution width (RBC) [Ratio] 13.4 % Normal 11.5-15.0 [facility] Comment on above: Order Comment: Speci men Type: BLOOD SPECIMENOrdering Facility: [facility] Address: [address] [place] [address] Performed By: #### 5 7021-8 ####[facility]CLIA [id number] [facility] [place] [address] [place] Hematocrit (Bld) [Volume fraction] 45.5 % Normal 36.0-46.0 [facility] Comment on above: Order Comment: Speci men Type: BLOOD SPECIMENOrdering Facility: [facility] Address: [address] [place] [address] Performed By: #### 5 7021-8 ####[facility] LABCLIA [id number] [place] [address] [place] Hemoglobin (Bld) [Mass/Vol] 14.6 g/dL Normal 11.5-15.5 [facility] Comment on above: Order Comment: Speci men Type: BLOOD SPECIMENOrdering Facility: [facility] Address: [address] [place] [address] Performed By: #### 5 7021-8 ####[facility]CLIA [id number] [facility] [place] [address] [place] Immature granulocytes (Bld) [#/Vol] 0.03 10*3/uL Normal <0.10 [facility] Comment on above: Order Comment: Speci men Type: BLOOD SPECIMENOrdering Facility: [facility] Address: [address] [place] [address] Performed By: #### 5 7021-8 ####[facility] LABCLIA [id number] [place] [address] [place] Immature granulocytes/100 WBC (Bld) 0.4 % Normal [facility] Comment on above: Order Comment: Speci men Type: BLOOD SPECIMENOrdering Facility: [facility] Address: [address] [place] [address] Performed By: #### 5 7021-8 ####[facility] LABCLIA [id number] [place] [address] [place] Lymphocytes (Bld) [#/Vol] 2.30 10*3/uL Normal 1.00-4.00 [facility] Comment on above: Order Comment: Speci men Type: BLOOD SPECIMENOrdering Facility: [facility] Address: [address] [place] [address] Performed By: #### 5 7021-8 ####[facility] LABCLIA [id number] [place] [address] [place] Lymphocytes/100 WBC (Bld) 26.8 % Normal [facility] Comment on above: Order Comment: Speci men Type: BLOOD SPECIMENOrdering Facility: [facility] Address: [address] [place] [address] Performed By: #### 5 7021-8 ####[facility] LABCLIA [id number] [place] [address] [place] MCH (RBC) [Entitic mass] 31.1 pg Normal 26.0-34.0 [facility] Comment on above: Order Comment: Speci men Type: BLOOD SPECIMENOrdering Facility: [facility] Address: [address] [place] [address] Performed By: #### 5 7021-8 ####[facility] LABCLIA [id number] [place] [address] [place] MCHC (RBC) [Mass/Vol] 32.1 g/dL Normal 30.5-36.0 [facility] Comment on above: Order Comment: Speci men Type: BLOOD SPECIMENOrdering Facility: [facility] Address: [address] [place] [address] Performed By: #### 5 7021-8 ####[facility] LABCLIA [id number] [place] [address] [place] MCV (RBC) [Entitic vol] 97.0 fL Normal 80.0-100.0 [facility] Comment on above: Order Comment: Speci men Type: BLOOD SPECIMENOrdering Facility: [facility] Address: [address] [place] [address] Performed By: #### 5 7021-8 ####[facility]CLIA [id number] [facility] [address] [address] [place] Monocytes (Bld) [#/Vol] 0.88 10*3/uL High <0.87 [facility] Comment on above: Order Comment: Speci men Type: BLOOD SPECIMENOrdering Facility: [facility] Address: [address] [place] [address] Performed By: #### 5 7021-8 ####[facility]CLIA [id number] [facility] [address] [address] [place] Monocytes/100 WBC (Bld) 10.3 % Normal [facility] Comment on above: Order Comment: Speci men Type: BLOOD SPECIMENOrdering Facility: [facility] Address: [address] [place] [address] Performed By: #### 5 7021-8 ####[facility] LABCLIA [id number] [address] [address] [place] Neutrophils (Bld) [#/Vol] 4.82 10*3/uL Normal 1.45-7.50 [facility] Comment on above: Order Comment: Speci men Type: BLOOD SPECIMENOrdering Facility: [facility] Address: [address] [place] [address] Performed By: #### 5 7021-8 ####[facility] LABCLIA [id number] [place] [id number] [place] Neutrophils/100 WBC (Bld) 56.2 % Normal [facility] Comment on above: Order Comment: Speci men Type: BLOOD SPECIMENOrdering Facility: [facility] Address: [address] [place] [address] Performed By: #### 5 7021-8 ####[facility] LABCLIA [id number] [place] [address] [place] Nucleated RBC (Bld) [#/Vol] 10*3/uL Normal <0.01 [facility] Comment on above: Order Comment: Speci men Type: BLOOD SPECIMENOrdering Facility: [facility] Address: [address] [place] [address] Performed By: #### 5 7021-8 ####[facility] LABCLIA [id number] [place] [address] [place] Nucleated RBC/100 WBC (Bld) [Ratio] 0.0 /100 WBC Normal [facility] Comment on above: Order Comment: Speci men Type: BLOOD SPECIMENOrdering Facility: [facility] Address: [address] [place] [address] Performed By: #### 5 7021-8 ####[facility] LABCLIA [id number] [place] [address] [place] Platelet mean volume (Bld) [Entitic vol] 12.0 fL Normal 9.0-12.7 [facility] Comment on above: Order Comment: Speci men Type: BLOOD SPECIMENOrdering Facility: [facility] Address: [address] [place] [address] Performed By: #### 5 7021-8 ####[facility] LABCLIA [id number] [place] [address] [place] Platelets (Bld) [#/Vol] 199 10*3/uL Normal 150-400 [facility] Comment on above: Order Comment: Speci men Type: BLOOD SPECIMENOrdering Facility: [facility] Address: [address] [place] [address] Performed By: #### 5 7021-8 ####[facility] LABCLIA [id number] [place] [address] [place] RBC (Bld) [#/Vol] 4.69 10*6/uL Normal 3.90-5.20 [facility] Comment on above: Order Comment: Speci men Type: BLOOD SPECIMENOrdering Facility: [facility] Address: [address] [place] [address] Performed By: #### 5 7021-8 ####[facility] LABCLIA [id number] [place] [address] [place] WBC (Bld) [#/Vol] 8.57 10*3/uL Normal 3.70-11.00 [facility] Comment on above: Order Comment: Speci men Type: BLOOD SPECIMENOrdering Facility: [facility] Address: [address] [place] [address] Performed By: #### 5 7021-8 ####[facility] LABCLIA [id number] [place] [address] [place] Comprehensive metabolic 2000 panelon 04-01-2024 Albumin [Mass/Vol] 4.2 g/dL Normal 3.9-4.9 [facility] Comment on above: Order Comment: Speci men Type: BLOOD SPECIMENOrdering Facility: [facility] Address: [address] [place] [address] Performed By: #### 2 4323-8 ####[facility] LABCLIA [id number] [place] [address] [place] ALP [Catalytic activity/Vol] 68 U/L Normal 34-123 [facility] Comment on above: Order Comment: Speci men Type: BLOOD SPECIMENOrdering Facility: [facility] Address: [address] [place] [address] Performed By: #### 2 4323-8 ####[facility] LABCLIA [id number] [place] [address] [place] ALT [Catalytic activity/Vol] 26 U/L Normal 7-38 [facility] Comment on above: Order Comment: Speci men Type: BLOOD SPECIMENOrdering Facility: [facility] Address: [address] [place] [address] Performed By: #### 2 4323-8 ####[facility]CLIA [id number] [facility] [address] [address] [place] Anion gap [Moles/Vol] 13 mmol/L Normal 8-15 [facility] Comment on above: Order Comment: Speci men Type: BLOOD SPECIMENOrdering Facility: [facility] Address: [address] [place] [address] Performed By: #### 2 4323-8 ####[facility] LABCLIA [id number] [facility] [place] [id number] [place] AST [Catalytic activity/Vol] 21 U/L Normal 13-35 [facility] Comment on above: Order Comment: Speci men Type: BLOOD SPECIMENOrdering Facility: [facility] Address: [address] [place] [address] Performed By: #### 2 4323-8 ####[facility] LABCLIA [id number] [facility] [place] [address] [place] Bilirubin [Mass/Vol] 0.8 mg/dL Normal 0.2-1.3 [facility] Comment on above: Order Comment: Speci men Type: BLOOD SPECIMENOrdering Facility: [facility] Address: [address] [place] [address] Performed By: #### 2 4323-8 ####[facility] LABCLIA [id number] [facility] [place] [id number] [place] Calcium [Mass/Vol] 9.5 mg/dL Normal 8.5-10.2 [facility] Comment on above: Order Comment: Speci men Type: BLOOD SPECIMENOrdering Facility: [facility] Address: [address] [place] [address] Performed By: #### 2 4323-8 ####[facility] LABCLIA [id number] [facility] [place] [id number] [place] Chloride [Moles/Vol] 105 mmol/L Normal 98-107 [facility] Comment on above: Order Comment: Speci men Type: BLOOD SPECIMENOrdering Facility: [facility] Address: [address] [place] [address] Performed By: #### 2 4323-8 ####[facility] LABCLIA [id number] [place] [address] [place] CO2 [Moles/Vol] 21 mmol/L Low 22-30 [facility] Comment on above: Order Comment: Speci men Type: BLOOD SPECIMENOrdering Facility: [facility] Address: [address] [place] [address] Performed By: #### 2 4323-8 ####[facility] LABCLIA [id number] [address] [place] Creatinine [Mass/Vol] 0.69 mg/dL Normal 0.58-0.96 [facility] Comment on above: Order Comment: Speci men Type: BLOOD SPECIMENOrdering Facility: [facility] Address: [address] [place] [address] Performed By: #### 2 4323-8 ####[facility] LABCLIA [id number] [address] Creatinine and Glomerular filtration rate.predicted panel (S/P/Bld) 91 mL/min/1.73m??? Normal >=60 [facility] Comment on above: Order Comment: Speci men Type: BLOOD SPECIMENOrdering Facility: [facility] Address: [address] [place] [address] Result Comment: Angélica mated Glomerular Filtration Rate (eGFR) is calculated using the 2020 CKD-EPI creatinine equation. This equation utilizes serum creatinine, sex, and age as parameters. The creatinine assay has traceable calibration to isotope dilution-mass spectrometry. Refer to KDIGO guidelines for clinical interpretation. In patients with unstable renal function, e.g. those with acute kidney injury, the eGFR may not accurately reflect actual GFR. Performed By: #### 2 4323-8 ####[facility] LABCLIA [id number] [place] [id number] [place] Glucose [Mass/Vol] 215 mg/dL High 74-99 [facility] Comment on above: Order Comment: Thomas shelton Type: BLOOD SPECIMENOrdering Facility: [facility] Address: [address] [place], [place] [id number] Result Comment: The [place] [employer] (ADA) provides guidance for cutoff values for fasting glucose and random glucose. The ADA defines fasting as no caloric intake for at least 8 hours. Fasting plasma glucose results between 100 to 125 [...] Standards of Medical Care in Diabetes 2016, [place] [employer]. Diabetes Care. 2016.39(Suppl 1). Performed By: #### 2 4323-8 ####[facility] LABCLIA [id number] [place] [address] [place] Potassium [Moles/Vol] 4.6 mmol/L Normal 3.7-5.1 [facility] Comment on above: Order Comment: Thomas shelton Type: BLOOD SPECIMENOrdering Facility: [facility] Address: [address] [place] [address] Performed By: #### 2 4323-8 ####[facility] LABCLIA [id number] [address] [address] [place] Protein [Mass/Vol] 7.0 g/dL Normal 6.3-8.0 [facility] Comment on above: Order Comment: Thomas shelton Type: BLOOD SPECIMENOrdering Facility: [facility] Address: [address] [place], [place] [address] Performed By: #### 2 4323-8 ####[facility] LABCLIA [id number] [place] [id number] [place] Sodium [Moles/Vol] 139 mmol/L Normal 136-144 [facility] Comment on above: Order Comment: Speci men Type: BLOOD SPECIMENOrdering Facility: [facility] Address: [address] [place] [address] Performed By: #### 2 4323-8 ####[facility] LABCLIA [id number] [place] [address] [place] Urea nitrogen [Mass/Vol] 21 mg/dL Normal 7-21 [facility] Comment on above: Order Comment: Speci men Type: BLOOD SPECIMENOrdering Facility: [facility] Address: [address] [place] [address] Performed By: #### 2 4323-8 ####[facility] LABCLIA [id number] [place] [address] [place] TYPE + SCREENon 04-01-2024 ABO O Normal [facility] Comment on above: Order Comment: Speci men Type: BLOOD SPECIMENOrdering Facility: [facility] Address: [address] [place] [address] Performed By: #### T SCR ####[facility] MAIN BLOOD BANKCLIA [id number] [place] [address] [place] HISTORICAL AB SCR STATUS Negative Normal [facility] Comment on above: Order Comment: Speci men Type: BLOOD SPECIMENOrdering Facility: [facility] Address: [address] [place] [address] Performed By: #### T SCR ####[facility] MAIN BLOOD BANKCLIA [id number] [place] [id number] [place] Rh Nom (Bld) Negative Normal [facility] Comment on above: Order Comment: Speci men Type: BLOOD SPECIMENOrdering Facility: [facility] Address: [address] [place] [address] Performed By: #### T SCR ####[facility] MAIN BLOOD BANKCLIA [id number] [place] [address] [place] TYPE AND SCREEN EXPIRATION 04/04/2024 23:59 Normal [facility] Comment on above: Order Comment: Speci men Type: BLOOD SPECIMENOrdering Facility: [facility] Address: [address] [place] [address] Performed By: #### T SCR ####CC MAIN BLOOD BANKCLIA [id number] [address] [address] [facility] 3603-17-2024 36 Requested on [employer] Normal [facility] 36on 03-16-2024 36 Approved through [employer]. Scanned under Media Auth# [id number] 04/06-04/07/24 Calendars updated. Just waiting for case request to add to [employer]. Normal [facility] 36 Pended TAVR case request, Gloria Davis LAB SUPPORT TECH to sign. Normal [facility] CT ANGIOGRAM TAVRon 03-11-20 CT ANGIOGRAM TAVR Patient Name: LITO GONZALEZ : 1950 Exam Date/Time: 03/10/2024 14:01 Procedure: CT ANGIOGRAM TAVR Ordering Provider: DAVIS MEGGAN Reason For Exam: AORTIC VALVE STENOSIS [facility] Valve [facility] Cardiovascular CTA CLINICAL INDICATION: 73-year-old female with severe aortic stenosis, being evaluated for transcatheter aortic valve implantation. Computed tomography of the heart, thoracoabdominal aorta, and iliofemoral system was performed using a [employer] Aquilion One 320 detector scanner. Images were reconstructed and analyzed on an advanced post-processing 3D workstation. Dose reduction was employed with automated exposure control. Contrast: 100 mL Isovue-370 Total DLP: 1116 mGy-cm Study Quality: Average Extracardiac Findings: No focal consolidation is seen within the lungs. There is no pleural effusion or pneumothorax. No suspicious pulmonary nodules are identified. No lymphadenopathy is seen within the chest. There is decreased density of the liver parenchyma consistent with fatty infiltration. The gallbladder, spleen, pancreas, adrenal glands, and kidneys appear within normal limits. There is no lymphadenopathy within the abdomen or pelvis. The urinary bladder appears grossly normal. The uterus has been removed. Large and small bowel loops do not appear abnormally dilated or thickened. There is no free fluid or free air within the abdomen or pelvis. No lytic or blastic lesions are seen on the bone windows. Cardiac Chambers: The pericardium is unremarkable. The left and right ventricles are normal in size. The left atrium is mildly dilated. The left atrial appendage is normal in appearance. The right atrium is normal in size. Coronary Arteries: The coronaries have normal origins. Images are limited due to motion artifact. There is a pattern of probably right coronary dominance. There is evidence of coronary atherosclerosis. The present study was not optimized for evaluation of the coronary arteries. Mitral Valve: The mitral annulus has mild calcification, without significant extension into the LVOT. The anterior mitral leaflet is free of the LVOT during systole. Aortic Valve: The aortic valve is tricuspid and heavily calcified. Aortic valve area by planimetry at 35% R-R Interval: 0.94 cm2 Predicted deployment angle (3-cusp view): TELUGU 10, CAU 8 Aortic Annulus: Dimensions: 2.3 x 2.1 cm Area: 3.5 cm2 Perimeter: 69 mm Left coronary height: 10 mm Right coronary height: 10 mm Aorta and Iliofemoral System Note: All vascular measurements are minimal luminal diameters using a centerline technique. Aortic Root and Thoracic Aorta: Sinuses: 3.1 x 3.0 cm Sinotubular junction: 2.7 x 2.6 cm Mid ascending Aorta: 3.6 x 3.3 cm Abdominal Aorta: Infrarenal: 16 mm Bifurcation: 13 mm Right Iliac System: Calcification: Mild. Tortuosity: Mild. RCIA: 10 mm REIA: 7 mm RCFA: 7 mm Left Iliac System: Calcification: Minimal. Tortuosity: Mild. LCIA: 9 mm JADON: 7 mm LCFA: 7 mm IMPRESSION: Aortic stenosis, with descriptive anatomy and annular / aortic root measurements as detailed above. Iliofemoral system as detailed above. Report Dictated on Electronically Signed By: Abdullahi Alvarenga MD Electronically Signed Date/Time: 03/11/2024 12:28 PM EDT [facility] Office Visiton 03-10-2024 Follow-up visit [id number] Lito Gonzalez 1950 F Date Provider Department Center 03/10/2024 [id number] AQUINO [facility] [address] Family History Problem Relation Age of Onset Breast cancer Mother COPD Father Coronary artery disease Father Family Status - Relation Status Age at Mother Father Level of Service:83009 [place] OFFICE/OUTPATIENT NEW HIGH MDM 60 MINUTES Reason for Visit and Comments: Other [0] - Aortic Stenosis [facility] Follow-up visit [id number] Lito Gonzalez 1950 Date Provider Department Center 03/10/2024 [id number] HORTA [facility] [address] Family History Problem Relation Age of Onset Breast cancer Mother COPD Father Coronary artery disease Father Family Status - Relation Status Age at Mother Father Level of Service:18464 [place] OFFICE/OUTPATIENT NEW HIGH MDM 60 MINUTES Reason for Visit and Comments: Cardiac Valve Problem [1334] New Patient [542] - Heart Valve Clinic [facility] Follow-up visit [id number] Lito Gonzalez 1950 Date Provider Department [place] 03/10/2024 [id number] SRINIVASA [facility] [address] Family History Problem Relation Age of Onset Breast cancer Mother COPD Father Coronary artery disease Father Family Status - Relation Status Age at Mother Father Level of Service:17050 [place] OFFICE/OUTPATIENT NEW HIGH MDM 60 MINUTES Reason for Visit and Comments: Cardiac Valve Problem [1334] New Patient [542] - Heart Valve Clinic [facility] PATINSon 03-10-2024 [facility] DISCHARGE INSTRUCTIONS: Please talk with your PCP (primary care provider) Sharon Mcclellan regarding possible sleep apnea testing which can reduce fatigue if you have it diagnosed and start CPAP if necessary. Please change positions slowly to avoid dizziness and falls. Consider getting a falls detection bracelet or emergency response necklace. Please talk with your PCP (primary care provider) to check how to use your glucometer and test strips. Please BEGIN TO USE (or continue to use) your pillbox and have someone else (like a trusted friend or family member) look over your pillbox (AT LEAST ONCE A WEEK) to make sure you're taking what you are supposed to be taking and not doubling up or missing doses (which can be dangerous). [facility] Progress Noteon 03-10-2024 Progress Note Likely multifactoria l Encouraged patient to change positions slowly to avoid dizziness and falls Encouraged continued follow-up with PCP (primary care provider) and cardiology regarding her dizziness - patient and agree/confirm understanding monitor [facility] Progress Note Chronic Patient had had c/o memory loss for AWV (Annual Wellness Visit) from 02/25/24 but declined a geriatrics referral at that time I strongly encouraged patient/ to have patient schedule appt with us at [facility] for baseline memory testing I suspect either MCI (Mild Cognitive Impairment) or mild dementia based on my conversation with patient in our visit today [facility] Progress Note Reviewed med list with patient/ Advised patient speak with PCP (primary care provider) regarding alternative medication for diabetes other than glimepiride given risk of falls, hypoglycemia -patient/ amenable to this suggestion Recommended patient begin to use pillbox. [facility] Progress Note Chronic Never had sleep apnea testing Encouraged her to discuss with her PCP (primary care provider) regarding JUDITH (Obstructive Sleep Apnea) evaluation with sleep study I suspect likely component of untreated JUDITH (Obstructive Sleep Apnea) in addition to obesity hypoventilation syndrome. Treatment of this could improve her overall sleep quality, reduce fatigue, and improve quality of life. Patient/ voice understanding and agreement with this plan. [facility] Progress Note I agree with cardiology plan as discussed with ornamenter hand on same date regarding next steps for further workup/treatment of cardiac disease which likely includes TAVR. On this date of evaluation, the patient has sufficient understanding of procedure(s) to consent to the procedure(s) being discussed and has adequate social support(s). [facility] Progress Note [facility] [address] [facility] [address] Dept: [phone] Dept Loc: [phone] Today's Visit Location: [place]AVR (transcather aortic valve replacement) [place] [facility] [address] [place] [id number] Visit type: [facility] Assessment at TAVR (transcather aortic valve replacement) Clinic Visit Date: 03/10/2024 Reason for Visit: Other (Aortic Stenosis) Assessment and Plan 1. Severe aortic stenosis Assessment & Plan: I agree with cardiology plan as discussed with ornamenter hand on same date regarding next steps for further workup/treatment of cardiac disease which likely includes TAVR. On this date of evaluation, the patient has sufficient understanding of procedure(s) to consent to the procedure(s) being discussed and has adequate social support(s). 2. Memory loss Assessment & Plan: Chronic Patient had had c/o memory loss for AWV (Annual Wellness Visit) from 02/25/24 but declined a geriatrics referral at that time I strongly encouraged patient/ to have patient schedule appt with us at [facility] for baseline memory testing I suspect either MCI (Mild Cognitive Impairment) or mild dementia based on my conversation with patient in our visit today 3. Dizziness Assessment & Plan: Likely multifactorial Encouraged patient to change positions slowly to avoid dizziness and falls Encouraged continued follow-up with PCP (primary care provider) and cardiology regarding her dizziness - patient and agree/confirm understanding monitor 4. Daytime hypersomnolence Assessment & Plan: Chronic Never had sleep apnea testing Encouraged her to discuss with her PCP (primary care provider) regarding JUDITH (Obstructive Sleep Apnea) evaluation with sleep study I suspect likely component of untreated JUDITH (Obstructive Sleep Apnea) in addition to obesity hypoventilation syndrome. Treatment of this could improve her overall sleep quality, reduce fatigue, and improve quality of life. Patient/ voice understanding and agreement with this plan. 5. Polypharmacy Assessment & Plan: Reviewed med list with patient/ Advised patient speak with PCP (primary care provider) regarding alternative medication for diabetes other than glimepiride given risk of falls, hypoglycemia -patient/ amenable to this suggestion Recommended patient begin to use pillbox. Patient and/or patient's family instructed of the following: GERIATRICS DISCHARGE INSTRUCTIONS: Please talk with your PCP (primary care provider) Sharon Mcclellan regarding possible sleep apnea testing which can reduce fatigue if you have it diagnosed and start CPAP if necessary. Please change positions slowly to avoid dizziness and falls. Consider getting a falls detection bracelet or emergency response necklace. Please talk with your PCP (primary care provider) to check how to use your glucometer and test strips. Please BEGIN TO USE (or continue to use) your pillbox and have someone else (like a trusted friend or family member) look over your pillbox (AT LEAST ONCE A WEEK) to make sure you're taking what you are supposed to be taking and not doubling up or missing doses (which can be dangerous). Subjective HPI: Lito Gonzalez is a 73 y.o. female who presents to TAVR (transcather aortic valve replacement) clinic for a combined geriatric/cardiac assessment. The patient is new to me. TAVR Clinic Geriatrics Screening Tool: Presence of cognitive decline (yes=2 points, no=0 points) 2 Living alone with no help from partner/family (yes=1 point, no=0 points) 0 Reduce mobility or falls in the last 6 mos (yes=1 point, no=0 points) 1 Hospitalized in the last 3 mos (yes=1 point, no=0 points) 0 Polypharmacy (>5 medications daily) (yes=1 point, no=0 points)1 Total points: 4 History obtained from caregiver(s): Reece accompanies patient to today's appt AWV (Annual Wellness Visit) performed on 02/25/24 per Care Everywhere indicates: worsening memory, frequent imbalance/falls. Noticing memory is not as good. Some concerns about this. Takes time to remember. More falls, balance is not as good because of arthritis. Using a walker outside of the home now. PMHx of Hypertension, SVT, Paroxysmal A fib, COVID 04/2020, Diabetes, previous cath revealed no coronary disease; CTA performed on 03/10/24. Examples of difficulties patient is experiencing: Positional dizziness Transthoracic Echo (TTE): 01/08/2024 - MG56, EF 70%, BENITA 0.7cm (per my communication with cardiology Nurse Practitioner America Davis) Per note from Julienne Kumar from 03/06/24, she documents: Per note, patient with past medical history HTN, SVT, paroxysmal A Fib, DM. Pt had cardiology follow up on 12/03/2023 where she reported positional dizzines, denied any other symptoms. Echocardiogram was ordered to evaluate status of aortic stenosis, previously m (more content not included)... Normal [facility] Progress Note [facility]: Cardiothoracic Surgery Multidisciplinary Heart Valve Clinic Date: 03/10/24 Patient:Lito Gonzalez 1950 73 y.o. female [id number] Subjective: HPI: Lito Gonzalez [address] Hubbard is being evaluated for aortic valve stenosis. Echocardiogram completed on 01/08/2024 showed severe aortic valve stenosis with peak/mean gradients 85/56 mm Hg. Per note, patient with past medical history HTN, SVT, paroxysmal A Fib, DM. Pt had cardiology follow up on 12/03/2023 where she reported positional dizzines, denied any other symptoms. Echocardiogram was ordered to evaluate status of aortic stenosis, previously moderate with mean gradient 32 mmHg on last echocardiogram in 2021. Echo was completed on 01/08/2024 which demonstrated EF 70%, mild aortic valve insufficiency, severe aortic stenosis with mean gradient 56 mmHg. Cardiac catheterization completed on 01/20/2024 demonstrated normal coronary arteries and severe aortic valve stenosis with recommendation of TAVR. Pt scheduled for CTA TAVR on 03/10/2024. Medical History Past Medical History: Diagnosis Date Atrial fibrillation (HCC) Diabetes mellitus (HCC) Heart valve disease Hypertension Blood thinner - none Cardiac Catheterization 01/20/2024 Transthoracic Echocardiogram 01/08/2024 Review of Systems Constitutional: Positive for fatigue. Negative for activity change, chills, diaphoresis and fever. HENT: Negative for nosebleeds and trouble swallowing. Eyes: Negative for discharge and visual disturbance. Respiratory: Positive for shortness of breath (on exertion going up stairs). Negative for apnea, cough, chest tightness and wheezing. Cardiovascular: Positive for leg swelling. Negative for chest pain and palpitations. Gastrointestinal: Negative for abdominal distention, abdominal pain, blood in stool, diarrhea, nausea and vomiting. Endocrine: Negative for cold intolerance and heat intolerance. Genitourinary: Negative for hematuria. Musculoskeletal: Positive for gait problem (in wheelchair during visit; uses walker). Negative for myalgias. Skin: Negative for color change and rash. Neurological: Positive for syncope (possible syncopal episode while sweeping). Negative for dizziness, seizures, facial asymmetry, speech difficulty, weakness, light-headedness, numbness and headaches. Hematological: Does not bruise/bleed easily. Psychiatric/Behaviora l: Negative for dysphoric mood. Allergies: Atorvastatin Past Medical History: has a past medical history of Atrial fibrillation (HCC), Diabetes mellitus (HCC), Heart valve disease, and Hypertension. Past Surgical History: has a past surgical history that includes Appendectomy; Total hip arthroplasty (Right, 12/02/2019); Hysterectomy; Total knee arthroplasty (Left, 01/31/2009); and Total knee arthroplasty (Right). Social History: reports that she has never smoked. She has never used smokeless tobacco. She reports that she does not drink alcohol. Family History: family history includes Breast cancer in her mother; COPD in her father; Coronary artery disease in her father. Medications: Prior to Admission medications Medication Sig Start Date End Date Taking? Authorizing Provider aspirin 81 MG EC tablet Take 81 mg by mouth daily. Historical Provider, calcium carbonate 500 MG chewable tablet Chew 500 mg daily. Historical Provider, glimepiride (Amaryl) 4 MG tablet Take 1 tablet by mouth in the morning and 1 tablet in the evening. Take with meals. 11/15/23 Historical Provider, Glucosamine-Chondroit -Vit C-Mn (GLUCOSAMINE 1500 COMPLEX PO) Take by mouth. Historical Provider, metFORMIN (Glucophage) 500 MG tablet Take 2 tablets by mouth in the morning and 2 tablets in the evening. Take with meals. 07/31/23 Historical Provider, metoprolol succinate XL (Toprol-XL) 25 MG 24 hr tablet Take 25 mg by mouth daily. 12/19/23 Historical Provider, Objective: BP 128/72 (BP Location: Left arm, Patient Position: Sitting, BP Cuff Size: Adult) Pulse 87 Ht 4' 11 (1.499 m) Wt 249 lb 1.9 oz (113 kg) SpO2 97% BMI 50.32 kg/m? Physical Exam Vitals: BP 128/72 (BP Location: Left arm, Patient Position: Sitting, BP Cuff Size: Adult) Pulse 87 Ht 4' 11 (1.499 m) Wt 249 lb 1.9 oz (113 kg) SpO2 97% BMI 50.32 kg/m? Constitutional: General: Not in acute distress. Appearance: Normal appearance. Not toxic-appearing. Ear, nose, mouth: Bilateral external ear and nose normal. Nose: Nose normal. Mouth: Appearance normal, no bleeding, moist mucus membranes Eyes: General: No scleral icterus. No discharge from bilateral eyes Extraocular Movements: Extraocular movements intact. Pupils equal and reactive bilaterally Cardiovascular: Heart: Regular rhythm. +murmur. Vascular: No carotid bruit. + radiation to bilateral carotids Edema: + edema in bilateral lower extremities Pulmonary: Effort: Pulmonary effort is normal. No respirator (more content not included)... Normal [facility] Progress Note [facility] CARDIOLOGY [address] [address] Dept: [phone] Dept Visit type: New : 1950 Reason for Visit: Cardiac Valve Problem and New Patient (Heart [facility]ve [facility]) Assessment and Plan 1. Nonrheumatic aortic valve stenosis 2. PAF (paroxysmal atrial fibrillation) ([facility]) - ECG 12 lead - CLINIC PERFORMED This is a very pleasant 73 y.o. female with severe and symptomatic aortic stenosis. she is in need of aortic valve replacement. Will get a CTA for anatomic planning. If favorable anatomy for transfemoral TAVR, will likely proceed with TAVR. This decision was made after multidisciplinary discussion, using a shared decision making strategy. CT surgery also saw patient to aide in discussion. It was a pleasure seeing your patient in the office today. Please do not hesitate to call me with any questions. Follow up for Recheck after TAVR. Subjective HPI Lito Gonzalez is a very pleasant 73 y.o. female who is here for evaluation of her aortic valve disease. her symptoms include progressive dyspnea on exertion and fatigue. her most recent echo (reviewed by me today) shows severe aortic stenosis with normal EF and mean aortic valve gradient 56mmHg. Cath showed minimal CAD. Review of Systems Constitutional: Positive for fatigue. Negative for activity change, chills, diaphoresis and fever. HENT: Negative for nosebleeds and trouble swallowing. Eyes: Negative for discharge and visual disturbance. Respiratory: Positive for shortness of breath (on exertion going up to the stairs). Negative for apnea, cough, chest tightness and wheezing. Cardiovascular: Negative for chest pain, palpitations and leg swelling. Gastrointestinal: Negative for abdominal distention, abdominal pain, blood in stool, diarrhea, nausea and vomiting. Endocrine: Negative for cold intolerance and heat intolerance. Genitourinary: Negative for hematuria. Musculoskeletal: Positive for gait problem (in wheelchair during visit, uses walker). Negative for myalgias. Skin: Negative for color change and rash. Neurological: Positive for syncope (possible syncopal episode while sweeping). Negative for dizziness, seizures, facial asymmetry, speech difficulty, weakness, light-headedness, numbness and headaches. Hematological: Does not bruise/bleed easily. Psychiatric/Behaviora l: Positive for confusion (known memory loss). Negative for dysphoric mood. Allergies Allergen Reactions Atorvastatin Rash red itchy rash around neck--resolved after stopping med; hands froze with stiffness that started a week after taking a couple pills--resolving Outpatient Medications Prior to Visit Medication Sig Dispense Refill aspirin 81 MG EC tablet Take 81 mg by mouth daily. calcium carbonate 500 MG chewable tablet Chew 500 mg daily. glimepiride (Amaryl) 4 MG tablet Take 1 tablet by mouth in the morning and 1 tablet in the evening. Take with meals. Glucosamine-Chondroit -Vit C-Mn (GLUCOSAMINE 1500 COMPLEX PO) Take by mouth. [employer] Blood Glucose Test test strip Test blood sugar(s) 1 time daily as directed. Dx: Type 2 DM - Controlled E11.9 Insulin: No metFORMIN (Glucophage) 500 MG tablet Take 2 tablets by mouth in the morning and 2 tablets in the evening. Take with meals. metoprolol succinate XL (Toprol-XL) 25 MG 24 hr tablet Take 25 mg by mouth daily. No facility-administered medications prior to visit. Past Medical History: Diagnosis Date Atrial fibrillation (HCC) Diabetes mellitus (HCC) Heart valve disease Hypertension Social History Tobacco Use Smoking status: Never Smokeless tobacco: Never Substance Use Topics Alcohol use: Never Past Surgical History: Procedure Laterality Date APPENDECTOMY HYSTERECTOMY TOTAL HIP ARTHROPLASTY Right 12/02/2019 TOTAL KNEE ARTHROPLASTY Left 01/31/2009 TOTAL KNEE ARTHROPLASTY Right Family History Problem Relation Name Age of Onset Breast cancer Mother COPD Father Coronary artery disease Father Objective Vitals: 03/10/24 1505 BP: 128/72 BP Location: Left arm Patient Position: Sitting BP Cuff Size: Large adult Pulse: 87 SpO2: 97% Weight: 250 lb (113 kg) Height: 4' 11.5 (1.511 m) Physical Exam Constitutional: General: She is not in acute distress. Appearance: She is not diaphoretic. HENT: Head: Normocephalic. Nose: Nose normal. Mouth/Throat: Mouth: Mucous membranes are moist. Pharynx: No oropharyngeal exudate. Eyes: General: No scleral icterus. Right eye: No discharge. Left eye: No discharge. Neck: Thyroid: No thyromegaly. Vascular: No carotid bruit or JVD. Cardiovascular: Rate and Rhythm: Normal rate and regular rhythm. Pulses: Normal pulses. Heart sounds: Murmur heard. Systolic murmur is present with a grade of 3/6. Pulmonary: Effort: Pulmonary effort is normal. Breath sounds: Normal breath sounds. Abdominal: General: Bowel sounds are normal. There is no (more content not included)... Normal [facility] Progress Noteon 03-06-2024 Progress Note Lito Gonzalez 73 [address] Hubbard is being evaluated for aortic valve stenosis. Echocardiogram completed on 01/08/2024 showed severe aortic valve stenosis with peak/mean gradients 85/56 mm Hg. Per note, patient with past medical history HTN, SVT, paroxysmal A Fib, DM. Pt had cardiology follow up on 12/03/2023 where she reported positional dizzines, denied any other symptoms. Echocardiogram was ordered to evaluate status of aortic stenosis, previously moderate with mean gradient 32 mmHg on last echocardiogram in 2021. Echo was completed on 01/08/2024 which demonstrated EF 70%, mild aortic valve insufficiency, severe aortic stenosis with mean gradient 56 mmHg. Cardiac catheterization completed on 01/20/2024 demonstrated normal coronary arteries and severe aortic valve stenosis with recommendation of TAVR. Pt scheduled for CTA TAVR on 03/10/2024. Past Medical History: Diagnosis Date Atrial fibrillation (HCC) Diabetes mellitus (HCC) Heart valve disease Hypertension Blood thinner - none Cardiac Catheterization 01/20/2024 Transthoracic Echocardiogram 01/08/2024 [facility] 36on 03-04-2024 36 Spoke with patient and scheduled CTA 95 Arch 03/10 1 pm. Reviewed fasting 4 hours prior and oral hydration protocol. Verbalized understanding. [facility] 36on 03-03-2024 36 Labs reviewed and stable. Orders signed. [facility] 36 Reviewed patient's chart, next step In TAVR work-up will be CTA. Pended order, routed to Gloria Davis APRN to sign if appropriate. Will call patient to schedule once signed. BMP completed 01/14/24. Will also pended pre-TAVR labs for patient to complete with CTA. CXR completed 01/14/24. [facility] 36on 02-26-2024 36 Map mailed [facility] CNOVon 02-25-2024 CNOV Office Visit (INTMWS ) LITO GONZALEZ ([id number]) 1950 F Date Time Provider Department 02/25/24 11:20 AM KAMLESH ACOSTA During your visit today, we recorded the following information about you: Pulse Blood pressure Weight 99/minute 122/76 111.1 kg Kamlesh Acosta APRN.CNP 02/25/2024 12:36 PM Signed Korey Gonzalez is a 73 year old female here for a Medicare wellness visit. Medicare Health Risk Assessment General Health Okay Exercise: Minutes/Day No regular routine Exercise: Days/Week N/a Alcohol: Daily Use None Alcohol: Drinks/Day N/a Alcohol: 6 or more drinks N/a Feel off balance Yes, has had some falls, using a walker outside of the house Concerns: Teeth/Dentures No Concerns: Sexual function No Troubled by feelings No Frequency: Eating healthy diet Tries to eat healthy ADLs requiring help No Safety precautions in home/vehicle Yes Smoke, vape, chews tobacco No Difficulty hearing No Difficulty seeing No Current Providers Specialists: I have reviewed specialist-related care of the patient in the medical record. Current care team: Patient Care Team: Abby Mcclellan MD as PCP - General (Internal Medicine) Outside specialists seen: cardiology with [facility] Medical/Family history review Reviewed and updated problem list, medical/surgical/fami ly/social history, medications, and allergies. Opioid use review Opioid Medications (last 90 days) No data to display Anxiety/Depression screening No concerns about depression Recommendation: no further intervention at this time Cognitive screening Mini Cog Score: 1 Cognitive screening reviewed and Recommended referral for further evaluation (score 0-2). Functional Observation Was the patient's Timed Up AND Go test unsteady or ? 12 seconds? Yes Advance Care Planning Surrogate decision maker and/or advance care plan documented Measurements BP 122/76 Pulse 99 Wt 111.1 kg (245 lb) SpO2 97% BMI 47.85 kg/m? Vision Screening: Follows with optometry/ophthalmolo gy SUBJECTIVE Lito Gonzalez is a 73 year old female here today for a check up on her medical problems. Chief Complaint Patient presents with: Medicare Wellness Exam 4 month folllow up HPI Lito Gonzalez is a 73 year old female. Recent work up with cardiology, sees [facility]. Had an ECHO and a heart cath. No blockages but per patient her aorta is small. Referred for TAVR for severe aortic stenosis. Noticing memory is not as good. Some concerns about this. Takes time to remember. More falls, balance is not as good because of arthritis. Using a walker outside of the home now. Otherwise doing well, recent labs stable. Her medications were reviewed today and her list is now up to date. Medications Current Outpatient Medications Medication Sig glimepiride (AMARYL) 4 mg tablet Take 1 tablet by mouth two times a day with meals. metFORMIN (GLUCOPHAGE) 500 mg tablet Take 2 tablets by mouth two times a day with meals. metoprolol succinate ER (TOPROL XL) 25 mg 24 hr tablet Take 1 tablet by mouth once daily. (Dr. Hubbard) aspirin, enteric coated (ASPIRIN, ENTERIC COATED) 81 mg EC tablet Take 1 tablet by mouth once daily. BRANNON-600 WITH VITAMIN D 600 MG-200 UNIT TAB Take one(1) tablet two(2) times daily. GLUCOSAMINE 1,000 MG ORAL TAB Take one(1) tablet daily. blood sugar diagnostic (BLOOD GLUCOSE TEST) test strip Test blood sugar(s) 1 time daily as directed. Dx: Type 2 DM - Controlled E11.9 Insulin: No Blood-Glucose Meter (TRUE METRIX GLUCOSE METER) 1 Each as directed. Walker misc Trio Rolling Walker Lancets lancets Test blood sugar(s) 4 times daily. Dx: Type 2 DM - Uncontrolled E11.65 Insulin: Yes COMPOUNDED PRESCRIPTION Herbal Laxative Take as directed. (Patient not taking: Reported on 02/25/2024) No current facility-administered medications for this visit. ALLERGIES Allergen Reactions Lipitor [Atorvastat* Rash red itchy rash around neck--resolved after stopping med; hands froze with stiffness that started a week after taking a couple pills--resolving ACTIVE PROBLEM LIST Cognitive Impairment - 02/25/2024 Paf (Paroxysmal Atrial Fibrillation) (Hcc) - 12/07/2021 Comment: [facility] Nonrheumatic Aortic Valve Stenosis - 12/07/2021 Comment: [facility], echo 2021 [facility] Status Post Right Hip Replacement - 12/23/2019 Difficulty in Walking Involving Lower Leg Joint Acid Indigestion - 03/26/2016 Polycythemia, Secondary - 03/28/2011 Comment: This was abnormal, seen by , testing was normal. Generalized Osteoarthrosis, Involving Multiple Sites - 05/10/2008 Diabetes Mellitus (Hcc) - 10/20/2007 Hypertension Goal Bp (Blood Pressure) < 140/90 - 10/12/2005 Hyperlipidemia Associated With Type 2 Diabetes Mellitus (Hcc) ([facility]) - 10/12/2005 Class 3 Severe Obesity Due to Excess Calories With Body Mass Index (B (more content not included)... Normal [facility] 36on 02-19-2024 36 Made chart and isabella d [employer] packet w/o map. If I get one by next week I will mail it otherwise I'll call patient w/ good directions. Normal [facility] CBC W Auto Differential pane l (Bld)on 02-19-2024 Basophils (Bld) [#/Vol] 0.14 10*3/uL High <0.11 [facility] Comment on above: Order Comment: Specjosiah men Type: BLOOD SPECIMENOrdering Facility: [facility] Address: [address] [place] [address] Performed By: #### 5 7021-8 ####[facility] LABCLIA [id number] [place] [address] [place] Basophils/100 WBC (Bld) 1.6 % Normal [facility] Comment on above: Order Comment: Thomas shelton Type: BLOOD SPECIMENOrdering Facility: [facility] Address: [address] [place] [address] Performed By: #### 5 7021-8 ####[facility] LABCLIA [id number] [place] [address] [place] Differential cell count method Nom (Bld) Auto Normal [facility] Comment on above: Order Comment: Speci men Type: BLOOD SPECIMENOrdering Facility: [facility] Address: [address] [place] [address] Performed By: #### 5 7021-8 ####[facility] LABCLIA [id number] [place] [address] [place] Eosinophils (Bld) [#/Vol] 0.66 10*3/uL High <0.46 [facility] Comment on above: Order Comment: Speci men Type: BLOOD SPECIMENOrdering Facility: [facility] Address: [address] [place] [address] Performed By: #### 5 7021-8 ####[facility] LABCLIA [id number] [place] [address] [place] Eosinophils/100 WBC (Bld) 7.4 % Normal [facility] Comment on above: Order Comment: Speci men Type: BLOOD SPECIMENOrdering Facility: [facility] Address: [address] [place] [address] Performed By: #### 5 7021-8 ####[facility] LABCLIA [id number] [place] [address] [place] Erythrocyte distribution width (RBC) [Ratio] 13.4 % Normal 11.5-15.0 [facility] Comment on above: Order Comment: Speci men Type: BLOOD SPECIMENOrdering Facility: [facility] Address: [address] [place] [address] Performed By: #### 5 7021-8 ####[facility] LABCLIA [id number] [place] [address] [place] Hematocrit (Bld) [Volume fraction] 45.3 % Normal 36.0-46.0 [facility] Comment on above: Order Comment: Speci men Type: BLOOD SPECIMENOrdering Facility: [facility] Address: [address] [place] [address] Performed By: #### 5 7021-8 ####[facility] LABCLIA [id number] [place] [id number] [place] Hemoglobin (Bld) [Mass/Vol] 14.5 g/dL Normal 11.5-15.5 [facility] Comment on above: Order Comment: Speci men Type: BLOOD SPECIMENOrdering Facility: [facility] Address: [address] [place] [address] Performed By: #### 5 7021-8 ####[facility] LABCLIA [id number] [place] [address] [place] Immature granulocytes (Bld) [#/Vol] 10*3/uL Normal <0.10 [facility] Comment on above: Order Comment: Speci men Type: BLOOD SPECIMENOrdering Facility: [facility] Address: [address] [place] [address] Performed By: #### 5 7021-8 ####[facility] LABCLIA [id number] [place] [address] [place] Immature granulocytes/100 WBC (Bld) 0.2 % Normal [facility] Comment on above: Order Comment: Speci men Type: BLOOD SPECIMENOrdering Facility: [facility] Address: [address] [place] [address] Performed By: #### 5 7021-8 ####[facility] LABCLIA [id number] [place] [address] [place] Lymphocytes (Bld) [#/Vol] 2.97 10*3/uL Normal 1.00-4.00 [facility] Comment on above: Order Comment: Speci men Type: BLOOD SPECIMENOrdering Facility: [facility] Address: [address] [place] [address] Performed By: #### 5 7021-8 ####[facility] LABCLIA [id number] [place] [address] [place] Lymphocytes/100 WBC (Bld) 33.4 % Normal [facility] Comment on above: Order Comment: Speci men Type: BLOOD SPECIMENOrdering Facility: [facility] Address: [address] [place] [address] Performed By: #### 5 7021-8 ####[facility] LABCLIA [id number] [place] [address] [place] MCH (RBC) [Entitic mass] 30.8 pg Normal 26.0-34.0 [facility] Comment on above: Order Comment: Speci men Type: BLOOD SPECIMENOrdering Facility: [facility] Address: [address] [place] [address] Performed By: #### 5 7021-8 ####[facility] LABCLIA [id number] [place] [address] [place] MCHC (RBC) [Mass/Vol] 32.0 g/dL Normal 30.5-36.0 [facility] Comment on above: Order Comment: Speci men Type: BLOOD SPECIMENOrdering Facility: [facility] Address: [address] [place] [address] Performed By: #### 5 7021-8 ####[facility] LABIA [id number] [place] [address] [place] MCV (RBC) [Entitic vol] 96.2 fL Normal 80.0-100.0 [facility] Comment on above: Order Comment: Speci men Type: BLOOD SPECIMENOrdering Facility: [facility] Address: [address] [place] [address] Performed By: #### 5 7021-8 ####[facility] LABIA [id number] [place] [address] [place] Monocytes (Bld) [#/Vol] 1.09 10*3/uL High <0.87 [facility] Comment on above: Order Comment: Speci men Type: BLOOD SPECIMENOrdering Facility: [facility] Address: [address] [place] [address] Performed By: #### 5 7021-8 ####[facility] LABCLIA [id number] [place] [address] [place] Monocytes/100 WBC (Bld) 12.3 % Normal [facility] Comment on above: Order Comment: Speci men Type: BLOOD SPECIMENOrdering Facility: [facility] Address: [address] [place] [address] Performed By: #### 5 7021-8 ####[facility] LABCLIA [id number] [place] [address] [place] Neutrophils (Bld) [#/Vol] 4.00 10*3/uL Normal 1.45-7.50 [facility] Comment on above: Order Comment: Speci men Type: BLOOD SPECIMENOrdering Facility: [facility] Address: [address] [place] [address] Performed By: #### 5 7021-8 ####[facility] LABCLIA [id number] [place] [address] [place] Neutrophils/100 WBC (Bld) 45.1 % Normal [facility] Comment on above: Order Comment: Speci men Type: BLOOD SPECIMENOrdering Facility: [facility] Address: [address] [place] [address] Performed By: #### 5 7021-8 ####[facility] LABCLIA [id number] [place] [address] [place] Nucleated RBC (Bld) [#/Vol] 10*3/uL Normal <0.01 [facility] Comment on above: Order Comment: Speci men Type: BLOOD SPECIMENOrdering Facility: [facility] Address: [address] [place] [address] Performed By: #### 5 7021-8 ####[facility] LABCLIA [id number] [place] [address] [place] Nucleated RBC/100 WBC (Bld) [Ratio] 0.0 /100 WBC Normal [facility] Comment on above: Order Comment: Speci men Type: BLOOD SPECIMENOrdering Facility: [facility] Address: [address] [place] [address] Performed By: #### 5 7021-8 ####[facility] LABCLIA [id number] [place] [address] [place] Platelet mean volume (Bld) [Entitic vol] 11.9 fL Normal 9.0-12.7 [facility] Comment on above: Order Comment: Speci men Type: BLOOD SPECIMENOrdering Facility: [facility] Address: [address] [place] [address] Performed By: #### 5 7021-8 ####[facility] LABCLIA [id number] [place] [address] [place] Platelets (Bld) [#/Vol] 196 10*3/uL Normal 150-400 [facility] Comment on above: Order Comment: Speci men Type: BLOOD SPECIMENOrdering Facility: [facility] Address: [address] [place] [address] Performed By: #### 5 7021-8 ####[facility] LABCLIA [id number] [place] [address] [place] RBC (Bld) [#/Vol] 4.71 10*6/uL Normal 3.90-5.20 [facility] Comment on above: Order Comment: Speci men Type: BLOOD SPECIMENOrdering Facility: [facility] Address: [address] [place] [address] Performed By: #### 5 7021-8 ####[facility] LABCLIA [id number] [place] [address] [place] WBC (Bld) [#/Vol] 8.88 10*3/uL Normal 3.70-11.00 [facility] Comment on above: Order Comment: Speci men Type: BLOOD SPECIMENOrdering Facility: [facility] Address: [address] [place] [address] Performed By: #### 5 7021-8 ####[facility] LABIA [id number] [place] [address] [place] Comprehensive metabolic 2000 panelon 02-19-2024 Albumin [Mass/Vol] 4.3 g/dL Normal 3.9-4.9 [facility] Comment on above: Order Comment: Speci men Type: BLOOD SPECIMENOrdering Facility: [facility] Address: [address] [place] [id number] Performed By: #### 2 4323-8 ####[facility] LABCLIA [id number] [place] [id number] [place] ALP [Catalytic activity/Vol] 61 U/L Normal 34-123 [facility] Comment on above: Order Comment: Speci men Type: BLOOD SPECIMENOrdering Facility: [facility] Address: [address] [place] [address] Performed By: #### 2 4323-8 ####[facility] LABCLIA [id number] [place] [address] [place] ALT [Catalytic activity/Vol] 30 U/L Normal 7-38 [facility] Comment on above: Order Comment: Speci men Type: BLOOD SPECIMENOrdering Facility: [facility] Address: [address] [place] [address] Performed By: #### 2 4323-8 ####[facility] LABCLIA [id number] [place] [address] [place] Anion gap [Moles/Vol] 11 mmol/L Normal 8-15 [facility] Comment on above: Order Comment: Speci men Type: BLOOD SPECIMENOrdering Facility: [facility] Address: [address] [place], [place] [address] Performed By: #### 2 4323-8 ####[facility] LABCLIA [id number] [place] [id number] [place] AST [Catalytic activity/Vol] 25 U/L Normal 13-35 [facility] Comment on above: Order Comment: Speci men Type: BLOOD SPECIMENOrdering Facility: [facility] Address: [address] [place], [place] [address] Performed By: #### 2 4323-8 ####[facility] LABCLIA [id number] [place] [id number] [place] Bilirubin [Mass/Vol] 0.7 mg/dL Normal 0.2-1.3 [facility] Comment on above: Order Comment: Speci men Type: BLOOD SPECIMENOrdering Facility: [facility] Address: [address] [place] [address] Performed By: #### 2 4323-8 ####[facility] LABCLIA [id number] [place] [address] [place] Calcium [Mass/Vol] 9.8 mg/dL Normal 8.5-10.2 [facility] Comment on above: Order Comment: Speci men Type: BLOOD SPECIMENOrdering Facility: [facility] Address: [address] [place] [address] Performed By: #### 2 4323-8 ####[facility] LABCLIA [id number] [place] [address] [place] Chloride [Moles/Vol] 107 mmol/L Normal 98-107 [facility] Comment on above: Order Comment: Speci men Type: BLOOD SPECIMENOrdering Facility: [facility] Address: [address] [place] [address] Performed By: #### 2 4323-8 ####[facility] LABCLIA [id number] [place] [address] [place] CO2 [Moles/Vol] 23 mmol/L Normal 22-30 [facility] Comment on above: Order Comment: Speci men Type: BLOOD SPECIMENOrdering Facility: [facility] Address: [address] [place], [place] [address] Performed By: #### 2 4323-8 ####[facility] LABCLIA [id number] [place] [address] [place] Creatinine [Mass/Vol] 0.79 mg/dL Normal 0.58-0.96 [facility] Comment on above: Order Comment: Speci men Type: BLOOD SPECIMENOrdering Facility: [facility] Address: [address] [place] [address] Performed By: #### 2 4323-8 ####[facility] LABCLIA [id number] [place] [address] [place] Creatinine and Glomerular filtration rate.predicted panel (S/P/Bld) 78 mL/min/1.73m??? Normal >=60 [facility] Comment on above: Order Comment: Thomas shelton Type: BLOOD SPECIMENOrdering Facility: [facility] Address: [address] [place] [address] Result Comment: Angélica mated Glomerular Filtration Rate (eGFR) is calculated using the 2020 CKD-EPI creatinine equation. This equation utilizes serum creatinine, sex, and age as parameters. The creatinine assay has traceable calibration to isotope dilution-mass spectrometry. Refer to KDIGO guidelines for clinical interpretation. In patients with unstable renal function, e.g. those with acute kidney injury, the eGFR may not accurately reflect actual GFR. Performed By: #### 2 4323-8 ####[facility] LABCLIA [id number] [place] [address] [place] Glucose [Mass/Vol] 198 mg/dL High 74-99 [facility] Comment on above: Order Comment: Thomas shelton Type: BLOOD SPECIMENOrdering Facility: [facility] Address: [address] [place] [address] Result Comment: The [place] Diabetes Association (ADA) provides guidance for cutoff values for fasting glucose and random glucose. The ADA defines fasting as no caloric intake for at least 8 hours. Fasting plasma glucose results between 100 to 125 [...] Standards of Medical Care in Diabetes 2016, [place] [employer] Association. Diabetes Care. 2016.39(Suppl 1). Performed By: #### 2 4323-8 ####[facility] LABCLIA [id number] [place] [address] [place] Potassium [Moles/Vol] 4.7 mmol/L Normal 3.7-5.1 [facility] Comment on above: Order Comment: Speci men Type: BLOOD SPECIMENOrdering Facility: [facility] Address: [address] [place] [address] Performed By: #### 2 4323-8 ####[facility] LABCLIA [id number] [place] [address] [place] Protein [Mass/Vol] 7.0 g/dL Normal 6.3-8.0 [facility] Comment on above: Order Comment: Speci men Type: BLOOD SPECIMENOrdering Facility: [facility] Address: [address] [place] [address] Performed By: #### 2 4323-8 ####[facility] LABCLIA [id number] [place] [address] [place] Sodium [Moles/Vol] 141 mmol/L Normal 136-144 [facility] Comment on above: Order Comment: Speci men Type: BLOOD SPECIMENOrdering Facility: [facility] Address: [address] [place] [address] Performed By: #### 2 4323-8 ####[facility] LABCLIA [id number] [place] [address] [place] Urea nitrogen [Mass/Vol] 21 mg/dL Normal 7-21 [facility] Comment on above: Order Comment: Speci men Type: BLOOD SPECIMENOrdering Facility: [facility] Address: [address] [place] [address] Performed By: #### 2 4323-8 ####[facility] LABCLIA [id number] [place] [address] [place] HbA1c (Bld)on 02-19-2024 Average glucose Estimated from glycated hemoglobin (Bld) [Mass/Vol] 180 mg/dL Normal [facility] Comment on above: Order Comment: Thomas shelton Type: BLOOD SPECIMENOrdering Facility: [facility] Address: [address] [place] [address] Result Comment: eAG: (Estimated average glucose) is a calculated value from HgbA1c and is public utilities 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 of the average blood glucose level in the last 2-3 month period. Performed By: #### 5 5454-3 ####[facility] LABCLIA [id number] [address] STATES OF [facility] HbA1c (Bld) [Mass fraction] 7.9 % High 4.3-5.6 [facility] Comment on above: Order Comment: Thomas shelton Type: BLOOD SPECIMENOrdering Facility: [facility] Address: [address] [place] [address] Result Comment: [place] Diabetes Association guidelines indicate that patients with HgbA1c in the range 5.7-6.4% are at increased risk for development of diabetes, and intervention by lifestyle modification may be beneficial. HgbA1c greater or equal to 6.5% is considered diagnostic of diabetes. Performed By: #### 5 5454-3 ####[facility] LABCLIA [id number] [address] OF [facility] 36on 02-13-2024 36 Patient referred to [facility] from Dr Hubbard. Records scanned under Media and printed. I called and scheduled her for 03/10/24 w/ PB (waiting on surgeon availability). I need to make chart and mail AVIATION MANAGER packet. Normal [facility] DAVID SCREENINGon 04-26-2023 [facility] XR CHEST 2V FRONTAL/LATon [facility] XR Chest PA and Lateralon IMPRESSION: No acute radiographic abnormality. Fitness Services Manager: PSCB Transcribe Date/Time: Jul 31 2022 4:03P Dictated by : BRE SAMSON MD This examination was interpreted and the report reviewed and electronically signed by: BRE SAMSON MD on Jul 31 2022 4:04PM [facility] DIVISION OF RADIOLOGY * * *Final Report* * * DATE OF EXAM: Jul 31 2022 3:58PM WOX [id number] - XR CHEST 2V FRONTAL/LAT / PROCEDURE REASON: Acute cough * * * * Physician Interpretation * * * * EXAMINATION: CHEST RADIOGRAPH (2 VIEW FRONTAL & LATERAL) CLINICAL HISTORY: Acute cough MQ: XC2_6 EXAM DATE/TIME: 07/31/2022 3:58 PM COMPARISON: Chest x-ray on 05/18/2020 RESULT: Lines, tubes, and devices: None. Lungs and pleura: Tiny nodular opacities are again visualized in the right upper lung. No consolidation. No lung mass. No pleural effusion. No pneumothorax. Cardiomediastinal silhouette: Stable cardiac silhouette, with tortuosity of the thoracic aorta. There are mediastinal and hilar lymph node calcifications. Bones and soft tissues: The spine shows degenerative changes. DIVISION OF RADIOLOGY Provider, [facility] - 07/31/2022 * * *Final Report* * * DATE OF EXAM: Jul 31 2022 3:58PM WOX 5291 - XR CHEST 2V FRONTAL/LAT / PROCEDURE REASON: Acute cough * * * * Physician Interpretation * * * * EXAMINATION: CHEST RADIOGRAPH (2 VIEW FRONTAL & LATERAL) CLINICAL HISTORY: Acute cough MQ: XC2_6 EXAM DATE/TIME: 07/31/2022 3:58 PM COMPARISON: Chest x-ray on 05/18/2020 RESULT: Lines, tubes, and devices: None. Lungs and pleura: Tiny nodular opacities are again visualized in the right upper lung. No consolidation. No lung mass. No pleural effusion. No pneumothorax. Cardiomediastinal silhouette: Stable cardiac silhouette, with tortuosity of the thoracic aorta. There are mediastinal and hilar lymph node calcifications. Bones and soft tissues: The spine shows degenerative changes. IMPRESSION IMPRESSION: No acute radiographic abnormality. Fitness Services Manager: PSCB Transcribe Date/Time: Jul 31 2022 4:03P Dictated by : BRE SMASON MD This examination was interpreted and the report reviewed and electronically signed by: BRE SAMSON MD on Jul 31 2022 4:04PM EST [facility] Radiology Study observation (narrative) [facility] XR Chest PA and LateralOrder ed By: Cc Provider on 07-31-2022 [facility] XR Chest PA and Lateralon IMPRESSION: Hazy opacities overlying the left midlung. Clinically correlate. Fitness Services Manager: BOOGIE Transcribe Date/Time: May 18 2020 4:48P Dictated by : BRE SAMSON MD This examination was interpreted and the report reviewed and electronically signed by: BRE SAMSON MD on May 18 2020 4:50PM [facility] DIVISION OF RADIOLOGY * * *Final Report* * * DATE OF EXAM: May 18 2020 4:47PM WOX [id number] - XR CHEST 2V FRONTAL/LAT / PROCEDURE REASON: Cough * * * * Physician Interpretation * * * * EXAMINATION: CHEST RADIOGRAPH (2 VIEW FRONTAL & LATERAL) CLINICAL HISTORY: Cough MQ: XC2_6 EXAM DATE/TIME: 05/18/2020 4:47 PM COMPARISON: No relevant prior studies available. RESULT: Lines, tubes, and devices: None. Lungs and pleura: There are hazy opacities overlying the left midlung. The right lung appears clear. No mass lesion identified. No pleural effusions or pneumothorax. Cardiomediastinal silhouette: The cardiac silhouette and mediastinal contour are within normal limits, although lymph node calcifications seen in the right upper mediastinum. Bones and soft tissues: The spine shows degenerative changes. DIVISION OF RADIOLOGY Provider, [facility] - 05/18/2020 * * *Final Report* * * DATE OF EXAM: May 18 2020 4:47PM WOX 5291 - XR CHEST 2V FRONTAL/LAT / PROCEDURE REASON: Cough * * * * Physician Interpretation * * * * EXAMINATION: CHEST RADIOGRAPH (2 VIEW FRONTAL & LATERAL) CLINICAL HISTORY: Cough MQ: XC2_6 EXAM DATE/TIME: 05/18/2020 4:47 PM COMPARISON: No relevant prior studies available. RESULT: Lines, tubes, and devices: None. Lungs and pleura: There are hazy opacities overlying the left midlung. The right lung appears clear. No mass lesion identified. No pleural effusions or pneumothorax. Cardiomediastinal silhouette: The cardiac silhouette and mediastinal contour are within normal limits, although lymph node calcifications seen in the right upper mediastinum. Bones and soft tissues: The spine shows degenerative changes. IMPRESSION IMPRESSION: Hazy opacities overlying the left midlung. Clinically correlate. Fitness Services Manager: BOOGIE Transcribe Date/Time: May 18 2020 4:48P Dictated by : BRE SAMSON MD This examination was interpreted and the report reviewed and electronically signed by: BRE SAMSON MD on May 18 2020 4:50PM EST [facility] Radiology Study observation (narrative) [facility] XR Chest PA and LateralOrder ed By: Ccf Provider on 05-18-2020 [facility] Vital Signs Date Time Vital Sign Value Performing Clinician Harshad hendrickson 02-08-2025 10:29-0400 Body height 152.[address] Abby Mcclellan MD Work Phone: [phone] [place] [address] 02-08-2025 10:29-0400 Body mass index (BMI) [Ratio] 44.9 kg/m2 Dr. Abby Mcclellan MD Work Phone: [phone] [place] [address] 02-08-2025 10:29-0400 Body weight 104.[address] Abby Mcclellan MD Work Phone: 4([phone])[phone] [place] [address] 02-08-2025 10:29-0400 Diastolic blood pressure 79 mm[Hg] Dr. Abby Mcclellan MD Work Phone: 8(468)757-745556 [place] [address] 02-08-2025 10:29-0400 Heart rate 95 /min Dr. Abby Mcclellan MD Work Phone: [facility] 02-08-2025 10:29-0400 Respiratory rate 18 /min Dr. Abby Mcclellan MD Work Phone: [facility] 02-08-2025 10:29-0400 SaO2% (BldA) [Mass fraction] 97 % Dr. Abby Mcclellan MD Work Phone: [facility] 02-08-2025 10:29-0400 Systolic blood pressure 129 mm[Hg] Dr. Abby Mcclellan MD Work Phone: [facility] 01-11-2025 11:16-0400 Body mass index (BMI) [Ratio] 47.53 kg/m2 Kamlesh Acosta APRN.WALL MAN Work Phone: [facility] 01-11-2025 11:16-0400 Body weight 110.4 kg Kamlesh Dave LAB SUPPORT TECH.CN P Work Phone: [facility] 01-11-2025 11:16-0400 Diastolic blood pressure 78 mm[Hg] Kamlesh Dave LAB SUPPORT TECH.WALL MAN Work Phone: [facility] 01-11-2025 11:16-0400 Heart rate 108 /min Kamlesh Dave LAB SUPPORT TECH.CN P Work Phone: [facility] 01-11-2025 11:16-0400 SaO2% (BldA) [Mass fraction] 97 % Kamlesh Dave LAB SUPPORT TECH.WALL MAN Work Phone: [facility] 01-11-2025 11:16-0400 Systolic blood pressure 120 mm[Hg] Kamlesh Dave LAB SUPPORT TECH.WALL MAN Work Phone: [facility] 11-10-2024 11:15-0400 Body mass index (BMI) [Ratio] 46.84 kg/m2 Kamlesh Dave LAB SUPPORT TECH.WALL MAN Work Phone: [facility] 11-10-2024 11:15-0400 Body weight 108.8 kg Kamlesh Dave LAB SUPPORT TECH.CN P Work Phone: [facility] 11-10-2024 11:15-0400 Diastolic blood pressure 74 mm[Hg] Kamlesh Dave LAB SUPPORT TECH.WALL MAN Work Phone: [facility] 11-10-2024 11:15-0400 Heart rate 84 /min Kamlesh Dave LAB SUPPORT TECH.CN P Work Phone: [facility] 11-10-2024 11:15-0400 SaO2% (BldA) [Mass fraction] 98 % Kamlesh Dave LAB SUPPORT TECH.WALL MAN Work Phone: [facility] 11-10-2024 11:15-0400 Systolic blood pressure 128 mm[Hg] Kamlesh Dave LAB SUPPORT TECH.WALL MAN Work Phone: [facility] 09-29-2024 12:05-0500 Body mass index (BMI) [Ratio] 47.88 kg/m2 Kamlesh Dave LAB SUPPORT TECH.WALL MAN Work Phone: [facility] 09-29-2024 12:05-0500 Body weight 111.2 kg Kamlesh Dave LAB SUPPORT TECH.CN P Work Phone: [facility] 09-29-2024 12:05-0500 Diastolic blood pressure 72 mm[Hg] Kamlesh Dave LAB SUPPORT TECH.WALL MAN Work Phone: [facility] 09-29-2024 12:05-0500 Heart rate 96 /min Kamlesh Dave LAB SUPPORT TECH.CN P Work Phone: [facility] 09-29-2024 12:05-0500 SaO2% (BldA) [Mass fraction] 97 % Kamlesh Dave LAB SUPPORT TECH.WALL MAN Work Phone: [facility] 09-29-2024 12:05-0500 Systolic blood pressure 106 mm[Hg] Kamlesh Dave LAB SUPPORT TECH.WALL MAN Work Phone: [facility] 05-07-2024 15:37-0400 Body height 151.1 cm Americaoscar Davis LAB SUPPORT TECH - WALL MAN Work Phone: [facility] [employer] 05-07-2024 15:37-0400 Body mass index (BMI) [Ratio] 47.66 kg/m2 America Davis LAB SUPPORT TECH - WALL MAN Work Phone: [facility] [employer] 05-07-2024 15:37-0400 Body weight 108.86 kg Americaoscar Davis LAB SUPPORT TECH - WALL MAN Work Phone: [facility] [employer] 05-07-2024 15:37-0400 Diastolic blood pressure 70 mm[Hg] America Davis LAB SUPPORT TECH - WALL MAN Work Phone: [facility] [employer] 05-07-2024 15:37-0400 Heart rate 103 /min America Davis LAB SUPPORT TECH - WALL MAN Work Phone: [facility] [employer] 05-07-2024 15:37-0400 Systolic blood pressure 122 mm[Hg] America Davis LAB SUPPORT TECH - WALL MAN Work Phone: [facility] [employer] 05-07-2024 14:26-0400 Body height 149.9 cm Lindsey Tolentino LAB SUPPORT TECH - WALL MAN Work Phone: [facility] [employer] 05-07-2024 14:26-0400 Body mass index (BMI) [Ratio] 48.47 kg/m2 Lindsey Tolentino LAB SUPPORT TECH - WALL MAN Work Phone: [facility] [employer] 05-07-2024 14:26-0400 Body weight 108.86 kg Lindsey Tolentino LAB SUPPORT TECH - WALL MAN Work Phone: [facility] [employer] 04-17-2024 13:02-0400 Body height 149.9 cm Lindsey Tolentino LAB SUPPORT TECH - WALL MAN Work Phone: [facility] [employer] 04-17-2024 13:02-0400 Body mass index (BMI) [Ratio] 48.47 kg/m2 Lindsey Tolentino LAB SUPPORT TECH - WALL MAN Work Phone: [facility] [employer] 04-17-2024 13:02-0400 Body weight 108.86 kg Lindsey Tolentino APRN - WALL MAN Work Phone: [facility] [employer] 04-17-2024 13:02-0400 Diastolic blood pressure 70 mm[Hg] Lindsey Tolentino LAB SUPPORT TECH - WALL MAN Work Phone: [facility] [employer] 04-17-2024 13:02-0400 Heart rate 110 /min Lindsey Tolentino LAB SUPPORT TECH - WALL MAN Work Phone: [facility] [employer] 04-17-2024 13:02-0400 SaO2% (BldA) [Mass fraction] 100 % Lindsey Tolentino LAB SUPPORT TECH - WALL MAN Work Phone: [facility] [employer] 04-17-2024 13:02-0400 Systolic blood pressure 110 mm[Hg] Linsdey Tolentino LAB SUPPORT TECH - WALL MAN Work Phone: [facility] [employer] 04-08-2024 13:00-0400 Diastolic blood pressure 74 mm[Hg] Srinivasa Poon MD Work Phone: [facility] [employer] 04-08-2024 13:00-0400 Heart rate 108 /min Srinivasa Edwards Work Phone: [facility] [employer] 04-08-2024 13:00-0400 Respiratory rate 35 /min Srinivasa Edwards Work Phone: [facility] [employer] 04-08-2024 13:00-0400 Systolic blood pressure 141 mm[Hg] Srinivasa Poon MD Work Phone: [facility] [employer] 04-08-2024 12:07-0400 Body temperature 99.1 [degF] Srinivasa Edwards Work Phone: [facility] [employer] 04-08-2024 12:07-0400 SaO2% (BldA) [Mass fraction] 92 % Srinivasa Poon MD Work Phone: [facility] [employer] 04-08-2024 06:00-0400 Body mass index (BMI) [Ratio] 49.43 kg/m2 Srinivasa Poon MD Work Phone: [facility] [employer] 04-08-2024 06:00-0400 Body weight 111 kg Srinivasa Edwards Work Phone: [facility] [employer] 04-07-2024 09:44-0400 Body height 149.9 cm Srinivasa Edwards Work Phone: [facility] [employer] 03-10-2024 15:49-0400 Body height 149.9 cm Renzo Hernandezung DO Work Phone: [facility] [employer] 03-10-2024 15:49-0400 Body mass index (BMI) [Ratio] 50.32 kg/m2 Renzo Horta DO Work Phone: [facility] [employer] 03-10-2024 15:49-0400 Body weight 113 kg Renzo Hernandezung DO Work Phone: [facility] [employer] 03-10-2024 15:49-0400 Diastolic blood pressure 72 mm[Hg] Renzo Hernandezung DO Work Phone: [facility] [employer] 03-10-2024 15:49-0400 Heart rate 87 /min Renzo Hernandezung DO Work Phone: [facility] [employer] 03-10-2024 15:49-0400 SaO2% (BldA) [Mass fraction] 97 % Renzo Hernandezung DO Work Phone: [facility] [employer] 03-10-2024 15:49-0400 Systolic blood pressure 128 mm[Hg] Renzo Horta DO Work Phone: [facility] [employer] 03-10-2024 15:05-0400 Body height 151.1 cm Srinivasa Edwards Work Phone: [facility] [employer] 03-10-2024 15:05-0400 Body mass index (BMI) [Ratio] 49.65 kg/m2 Srinivasa Poon MD Work Phone: [facility] [employer] 03-10-2024 15:05-0400 Body weight 113.4 kg Srinivasa Edwards Work Phone: [facility] 03-10-2024 15:05-0400 Diastolic blood pressure 72 mm[Hg] Srinivasa Poon MD Work Phone: [facility] 03-10-2024 15:05-0400 Heart rate 87 /min Srinivasa Edwards Work Phone: [facility] [employer] 03-10-2024 15:05-0400 SaO2% (BldA) [Mass fraction] 97 % Srinivasa Poon MD Work Phone: [facility] 03-10-2024 15:05-0400 Systolic blood pressure 128 mm[Hg] Srinivasa Poon MD Work Phone: [facility] 02-25-2024 11:25-0400 Body mass index (BMI) [Ratio] 47.85 kg/m2 Kamlesh Parekhr LAB SUPPORT TECH.WALL MAN Work Phone: [facility] 02-25-2024 11:25-0400 Body weight 111.13 kg Kamlesh Dave LAB SUPPORT TECH.CN P Work Phone: [facility] 02-25-2024 11:25-0400 Diastolic blood pressure 76 mm[Hg] Kamlesh Dave LAB SUPPORT TECH.WALL MAN Work Phone: [facility] 02-25-2024 11:25-0400 Heart rate 99 /min Kamlesh Dave LAB SUPPORT TECH.CN P Work Phone: [facility] 02-25-2024 11:25-0400 SaO2% (BldA) [Mass fraction] 97 % Kamlesh Dave LAB SUPPORT TECH.WALL MAN Work Phone: [facility] 02-25-2024 11:25-0400 Systolic blood pressure 122 mm[Hg] Kamlesh Dave LAB SUPPORT TECH.WALL MAN Work Phone: [facility] 04-19-2023 11:50-0400 Body weight 109.77 kg Kamlesh Dave LAB SUPPORT TECH.CN P Work Phone: [facility] 04-19-2023 11:50-0400 Diastolic blood pressure 78 mm[Hg] Kamlesh Dave LAB SUPPORT TECH.WALL MAN Work Phone: [facility] 04-19-2023 11:50-0400 Heart rate 112 /min Kamlesh Dave LAB SUPPORT TECH.CN P Work Phone: [facility] 04-19-2023 11:50-0400 SaO2% (BldA) [Mass fraction] 96 % Kamlesh Dave LAB SUPPORT TECH.WALL MAN Work Phone: [facility] 04-19-2023 11:50-0400 Systolic blood pressure 118 mm[Hg] Kamlesh Dave LAB SUPPORT TECH.WALL MAN Work Phone: [facility] 07-31-2022 15:17-0500 Body temperature 98.71 [degF] Keily Mckinney LAB SUPPORT TECH.WALL MAN Work Phone: [facility] 07-31-2022 15:17-0500 Body weight 106.87 kg Keily Mckinney LAB SUPPORT TECH.WALL MAN Work Phone: [facility] 07-31-2022 15:17-0500 Diastolic blood pressure 72 mm[Hg] Keily Mckinney LAB SUPPORT TECH.WALL MAN Work Phone: [facility] 07-31-2022 15:17-0500 Heart rate 101 /min Keily Mckinney LAB SUPPORT TECH.WALL MAN Work Phone: [facility] 07-31-2022 15:17-0500 Respiratory rate 18 /min Keily Mckinney LAB SUPPORT TECH.WALL MAN Work Phone: [facility] 07-31-2022 15:17-0500 SaO2% (BldA) [Mass fraction] 96 % Keily Mckinney LAB SUPPORT TECH.WALL MAN Work Phone: [facility] 07-31-2022 15:17-0500 Systolic blood pressure 128 mm[Hg] Keily Mckinney LAB SUPPORT TECH.WALL MAN Work Phone: [facility] 04-18-2022 14:10-0400 Body weight 100.7 kg Abby Mcclellan MD Work Phone: [facility] 04-18-2022 14:10-0400 Diastolic blood pressure 70 mm[Hg] Abby Mcclellan MD Work Phone: [facility] 04-18-2022 14:10-0400 Heart rate 98 /min Abby Mcclellan MD Work Phone: [facility] [facility] 04-18-2022 14:10-0400 SaO2% (BldA) [Mass fraction] 95 % Abby Mcclellan MD Work Phone: [facility] 04-18-2022 14:10-0400 Systolic blood pressure 110 mm[Hg] Abby Mcclellan MD Work Phone: [facility] 02-12-2022 14:09-0400 Body height 152.[address] Abby Mcclellan Work Phone: [facility] Work Phone: 02-12-2022 14:09-0400 Body mass index (BMI) [Ratio] 42 kg/m2 Dr. Abby Mcclellan Work Phone: [facility] Work Phone: 02-12-2022 14:09-0400 Body temperature 96.6 [degF] Dr. Abby Mcclellan Work Phone: [facility] Work Phone: 02-12-2022 14:09-0400 Body weight 97.[address] Abby Mcclellan Work Phone: [facility] Work Phone: 02-12-2022 14:09-0400 Diastolic blood pressure 82 mm[Hg] Dr. Abyb Mcclellan Work Phone: [facility] Work Phone: 02-12-2022 14:09-0400 Heart rate 102 /min Dr. Abby Mcclellan Work Phone: [facility] Work Phone: 02-12-2022 14:09-0400 Respiratory rate 22 /min Dr. Abby Mcclellan Work Phone: [facility] Work Phone: 02-12-2022 14:09-0400 SaO2% (BldA) [Mass fraction] 99 % Dr. Abby Mcclellan Work Phone: [facility] Work Phone: 02-12-2022 14:09-0400 Systolic blood pressure 140 mm[Hg] Dr. Abby Mcclellan Work Phone: [facility] Work Phone: 11-01-2021 13:40-0400 Body height 152.[address] Abby Mcclellan Work Phone: [facility] Work Phone: 11-01-2021 13:40-0400 Body mass index (BMI) [Ratio] 39.8 kg/m2 Dr. Abby Mcclellan Work Phone: [facility] Work Phone: 11-01-2021 13:40-0400 Body weight 92.[address] Abby Mcclellan Work Phone: [facility] Work Phone: 11-01-2021 13:40-0400 Diastolic blood pressure 78 mm[Hg] Dr. Abby Mcclellan Work Phone: [facility] Work Phone: 11-01-2021 13:40-0400 Heart rate 96 /min Dr. Abby Mcclellan Work Phone: [facility] Work Phone: 11-01-2021 13:40-0400 Respiratory rate 20 /min Dr. Abby Mcclellan Work Phone: [facility] Work Phone: 11-01-2021 13:40-0400 SaO2% (BldA) [Mass fraction] 95 % Dr. Abby Mcclellan Work Phone: [facility] Work Phone: 11-01-2021 13:40-0400 Systolic blood pressure 118 mm[Hg] Dr. Abby Mcclellan Work Phone: [facility] Work Phone: Encounters Encounter Date Encounter Type Care Provider Facility Start: 02-15-2025 End: 02-16-2025 Refill Abby Mcclellan MD Work Phone: [facility] [place] Comment on above: Refill Request Start: 02-09-2025 End: 02-15-2025 Refill Abby Mcclellan MD Work Phone: [facility] [place] Comment on above: Medication Problem; Refill Request Start: 02-08-2025 End: 02-08-[address] Abby Mcclellan MD Work Phone: -[facility] Start: 02-08-2025 End: 02-08-2025 Patient encounter procedure Gm Robledo PA -[facility] Work Phone: Start: 01-11-2025 End: 01-11-2025 Patient encounter procedure Kamlesh Acosta APRN.CNP Work Phone: [facility] [place] Comment on above: Type 2 diabetes jose roberto itus with hyperglycemia, without long-term current use of insulin (HCC) (Primary Dx); Nonrheumatic aortic valve stenosis; Cardiac pacemaker; Hyperlipidemia associated with type 2 diabetes mellitus (HCC); Hypertension goal BP (blood pressure) < 140/90; Sciatic leg pain Start: 01-11-2025 End: 01-11-2025 ambulatory KAMLESH PAREKHR Facility:[facility] Start: 01-07-2025 End: 01-07-2025 ambulatory Nu Bruce [facility] Work Phone: [facility] Start: 01-07-2025 End: 01-07-2025 Patient encounter procedure Nu Bruce [facility] Work Phone: [facility] Start: 01-07-2025 End: 01-11-2025 Telephone encounter Abby Mcclellan MD Work Phone: [facility] [place] Comment on above: Lab Orders Start: 01-01-2025 End: 01-01-2025 ambulatory Deshawn Sarmientoamor [facility] [place] Start: 01-01-2025 End: 01-01-2025 Patient encounter procedure Deshawn Sierra [facility] [place] Comment on above: Population Health Na vigation Outreach ([facility]) Start: 12-10-2024 End: 01-30-2025 Refill Abby Mcclellan MD Work Phone: [facility] [place] Comment on above: patient cancelled re quest Start: 12-07-2024 End: 12-07-[address] Abby Mcclellan MD Work Phone: [facility] Work Phone: Start: 12-07-2024 End: 12-07-[address] Ac Hubbard MD -[facility] Work Phone: Start: 12-02-2024 End: 12-02-[address] Abby Mcclellan MD Work Phone: [facility] Work Phone: Start: 12-02-2024 End: 12-02-[address] Ac Hubbard MD -[facility] Work Phone: Start: 11-10-2024 End: 11-10-2024 ambulatory KAMLESH DAVE Facility:[facility] Start: 11-10-2024 End: 11-10-2024 Patient encounter procedure Kamlesh Acosta LAB SUPPORT TECH.WALL MAN Work Phone: [facility] [place] Comment on above: Type 2 diabetes jose roberto itus with hyperglycemia, without long-term current use of insulin (HCC) (Primary Dx); Class 3 severe obesity due to excess calories with body mass index (BMI) of 45.0 to 49.9 in adult, unspecified whether serious comorbidity present (HCC); Hyperlipidemia associated with type 2 diabetes mellitus (HCC) Start: 09-29-2024 End: 09-29-2024 ambulatory KAMLESH ACOSTA Facility:[facility] Start: 09-29-2024 End: 09-29-2024 Patient encounter procedure Kamlesh Acosta LAB SUPPORT TECH.WALL MAN Work Phone: [facility] [place] Comment on above: Type 2 diabetes jose roberto itus with hyperglycemia, without long-term current use of insulin (HCC) (Primary Dx); Hyperlipidemia associated with type 2 diabetes mellitus (HCC) (HCC); Hypertension goal BP (blood pressure) < 140/90; PAF (paroxysmal atrial fibrillation) (HCC); Class 3 severe obesity due to excess calories with body mass index (BMI) of 45.0 to 49.9 in adult, unspecified whether serious comorbidity present (HCC); Encounter for immunization; Nonrheumatic aortic valve stenosis; Arm edema; Cardiac pacemaker Start: 09-21-2024 End: 09-23-2024 Refjose Mcclellan MD Work Phone: [facility] [place] Comment on above: Refill Request Start: 09-19-2024 End: 09-19-2024 ambulatory ABBY MCCLELLAN Facility:[facility] Start: 09-07-2024 End: 09-07-2024 ambulatory Ac Hubbard Facility:[facility] Start: 09-07-2024 End: 09-07-[address] Ac Hubbard MD -[facility] Work Phone: Start: 08-18-2024 End: 08-20-2024 Roosevelt Mcclellan MD Work Phone: [facility] [place] Comment on above: Refill Request Lab Orders (September pointment) Start: 2024 End: 2024 ambulatory Ac Hubbard Facility:[facility] Start: 06-01-2024 End: 06-01-2024 ambulatory Abby Jerry Mcclelaln Facility:[facility] Start: 05-27-2024 End: 12-11-2024 Telephone encounter America Davis LAB SUPPORT TECH - [employer]ALL [employer] Work Phone: [facility]: Prior Authorization Start: 05-19-2024 End: 05-19-2024 ambulatory America Davis LAB SUPPORT TECH - WALL [employer] Work Phone: [facility] Comment on above: PAF (paroxysmal atri al fibrillation) ([facility]) Start: 05-07-2024 End: 05-07-2024 ambulatory AMERICA DAVIS [facility] Start: 05-07-2024 End: 05-07-2024 Office outpatient visit 25 minutes America Davis LAB SUPPORT TECH - WALL [employer] Work Phone: [facility] Comment on above: Severe aortic stenos is (Primary Dx); PAF (paroxysmal atrial fibrillation) (HCC); Essential hypertension; Complete heart block (HCC) Start: 05-07-2024 End: 05-07-2024 ambulatory LINDSEY TOLENTINO [facility] Start: 05-07-2024 End: 05-07-2024 Subsequent hospital visit by physician Lindsey Tolentino APRN - [place] Work Phone: [facility] [address] Non-Invasive [facility] Comment on above: Aortic valve stenosi s, etiology of cardiac valve disease unspecified Start: 05-07-2024 End: 05-07-2024 ambulatory VY MORA [facility] Start: 05-04-2024 End: 05-04-2024 ambulatory ABBY Jerry MCCLELLAN Facility:[facility] Start: 04-23-2024 End: 04-23-2024 Refill Abby Mcclellan MD Work Phone: [facility] [place] Comment on above: Refill Request Start: 04-17-2024 End: 04-17-2024 Office outpatient visit 25 minutes Lindsey Tolentino APRN - [employer] Work Phone: [facility] [place] Comment on above: S/P TAVR (transcathe ter aortic valve replacement) (Primary Dx); Essential hypertension; Aortic valve stenosis, etiology of cardiac valve disease unspecified; Complete heart block (CMS/HCC) ([facility]) Start: 04-17-2024 End: 04-17-2024 ambulatory LINDSEY TOLENTINO [facility] Start: 04-06-2024 End: 04-08-2024 Evaluation and management of inpatient Srinivasa Poon MD Work Phone: [facility] Cardiac Thoracic Vascular Intensive Care Unit CTV ICU T1 Comment on above: Nonrheumatic aortic valve stenosis (Primary Dx); Severe aortic stenosis; Complete heart block (CMS/HCC) ([facility]) Start: 04-03-2024 End: 04-03-2024 ambulatory America Davis LAB SUPPORT TECH - [employer] Work Phone: [facility] Comment on above: Severe aortic stenos is (Primary Dx) Start: 04-01-2024 End: 04-01-2024 ambulatory ABBY MCCLELLAN Facility:[facility] Start: 03-10-2024 End: 03-10-2024 Office outpatient new 60 minutes Ira Aquino MD Work Phone: [facility] Comment on above: Severe aortic stenos is (Primary Dx); Memory loss; Dizziness; Daytime hypersomnolence; Polypharmacy Nonrheumatic aortic valve stenosis (Primary Dx); PAF (paroxysmal atrial fibrillation) ([facility]) Severe aortic stenos is (Primary Dx) Start: 03-10-2024 End: 03-10-2024 ambulatory AMERICAOSCAR DAVIS [facility] Start: 03-10-2024 End: 03-10-2024 Subsequent hospital visit by physician America Davis LAB SUPPORT TECH - [employer] Work Phone: [facility] [address] Comment on above: Nonrheumatic aortic valve stenosis Start: 03-06-2024 Refill Abby monroy MD Work Phone: [facility] [place] Comment on above: Refill Request Start: 02-25-2024 End: 02-25-2024 ambulatory KAMLESH ACOSTA Facility:[facility] Start: 02-25-2024 End: 02-25-2024 Patient encounter procedure Kamlesh Acosta LAB SUPPORT TECH.WALL MAN Work Phone: [facility] [place] Comment on above: Medicare annual well ness visit, subsequent (Primary Dx); Nonrheumatic aortic valve stenosis; Cognitive impairment; Abnormality of gait; Falling episodes; Screening for depression; Encounter for screening examination for other mental health and behavioral disorders; Hypertension goal BP (blood pressure) < 140/90; Type 2 diabetes mellitus with other specified complication, without long-term current use of insulin (HCC); Hyperlipidemia associated with type 2 diabetes mellitus (HCC) (HCC); Encounter for therapeutic drug monitoring Start: 02-19-2024 End: 02-19-2024 ambulatory KAMLESH ACOSTA Facility:[facility] Start: 11-15-2023 Refill Abby monroy MD Work Phone: [facility] [place] Comment on above: Refill Request Start: 11-12-2023 Refill Kamlesh Morgan PRN.WALL MAN Work Phone: [facility] [place] Comment on above: Refill Request Start: 10-07-2023 Telephone encounter Myranda [facility] Comment on above: New Primary Care Pha rmacy Appt. Start: 10-03-2023 ambulatory [facility] Work Phone: [facility] Start: 07-12-2023 Telephone encounter Abby doshi MD Work Phone: Radiology Comment on above: Orders (labs) Start: 05-16-2023 Refill Abby monroy MD Work Phone: [facility] [place] Comment on above: Refill Request Start: 05-11-2023 End: 05-11-2023 ambulatory [facility] Work Phone: [facility] [place] Start: 04-29-2023 Documentation procedure Mammog andre Coordinator [facility] Start: 04-29-2023 Letter encounter Mammography Coordinator [facility] Department Start: 04-26-2023 End: 04-26-2023 Subsequent hospital visit by physician Screen Mammo [facility] Comment on above: Encounter for screen ing mammogram for breast cancer [Z12.31] Start: 04-19-2023 End: 04-19-2023 Patient encounter procedure Kamlesh Dave LAB SUPPORT TECH.WALL MAN Work Phone: [facility] [place] Comment on above: Type 2 diabetes jose roberto itus with hyperglycemia, without long-term current use of insulin (HCC) (Primary Dx); Essential hypertension; Hyperlipidemia associated with type 2 diabetes mellitus (HCC) ; Moderate aortic stenosis by prior echocardiogram; Acute cough Start: 01-18-2023 Telephone encounter Abby doshi MD Work Phone: [facility] [place] Comment on above: Orders (glucometer) Start: 01-16-2023 ambulatory Genna Steiner [facility] [place] Comment on above: Population Health Na vigation Outreach ([employer] [facility] ) Start: 11-09-2022 Refill Abby monroy MD Work Phone: [facility] Comment on above: Refill Request Start: 10-18-2022 Telephone encounter Abby doshi MD Work Phone: [facility] [place] Comment on above: Statin Therapy Start: 07-31-2022 End: 07-31-2022 Subsequent hospital visit by physician Xr [facility] Work Phone: Radiology Comment on above: Acute cough [R05.1] Start: 07-31-2022 End: 07-31-2022 Patient encounter procedure Keily Faye LAB SUPPORT TECH.WALL MAN Work Phone: [facility] Comment on above: Acute cough (Primary Dx) Start: 05-15-2022 End: 05-15-2022 Nursing evaluation of patient and report Mi Nurse Work Phone: [facility] [place] Comment on above: Need for vaccination (Primary Dx) Start: 05-04-2022 Telephone encounter [facility] holden LAB SUPPORT TECH.SPA HOST Work Phone: [facility] [place] Comment on above: Orders Start: 04-25-2022 End: 04-25-[address] Abby Mcclellan Work Phone: [facility] Work Phone: Start: 04-25-2022 End: 04-25-[address] Abby Mcclellan Work Phone: [facility]-Outpatient Breast Imaging Start: 04-18-2022 End: 04-18-2022 Office outpatient visit 25 minutes Abby Mcclellan MD Work Phone: [facility] [place] Comment on above: Controlled type 2 di abetes mellitus without complication, without long-term current use of insulin (HCC) (Primary Dx); Plantar fasciitis of right foot; Nonrheumatic aortic valve stenosis; Encounter for screening mammogram for breast cancer; Essential hypertension Start: 02-12-2022 End: 02-12-[address] Abby Mcclellan Work Phone: [facility] Endocrinology Start: 12-22-2021 ambulatory Munira Edouard [place] [facility] [place] Comment on above: Population Health Na vigation Outreach ([employer] care gaps) Start: 12-05-2021 Telephone encounter Abby doshi MD Work Phone: [facility] [place] Comment on above: Follow Up (helevated glucose) Start: 12-01-2021 Non-patient / Non-visit Dr. Alyssa Mcclellan Work Phone: [facility] Start: 12-01-2021 End: 12-01-[address] Abby Mcclellan Work Phone: [facility]-Cardiovascula r Services Start: 11-01-2021 End: 11-01-[address] Abby Mcclellan Work Phone: [facility] Start: 05-18-2020 End: 05-18-2020 Subsequent hospital visit by physician Xr [facility] Work Phone: Radiology Comment on above: Cough [R05] Procedures Date Procedure Procedure Detail Performing Clinician Start: 05-07-2024 Echo tthrc r-t 2d w/ wom-mode compl spec&colr d Lindsey Tolentino APRN - WALL [employer] Work Phone: Start: 05-07-2024 Ecg routine ecg w/le ast 12 lds trcg only w/o i&r Srinivasa Poon MD Work Phone: Start: 04-17-2024 Ecg routine ecg w/le ast 12 lds trcg only w/o i&r Srinivasa Poon MD Work Phone: Start: 04-08-2024 Glucose quantitative blood xcpt reagent strip Srinivasa Poon MD Work Phone: Start: 04-08-2024 Radiologic exam ches t 2 views Pita Vasquezhan LAB SUPPORT TECH - WALL MAN Work Phone: Start: 04-08-2024 Glucose quantitative blood xcpt reagent strip Srinivasa Poon MD Work Phone: Start: 04-08-2024 Ecg routine ecg w/le ast 12 lds trcg only w/o i&r Jose Herndon MD Work Phone: Start: 04-08-2024 Comprehensive metabo lic panel Jose Herndon MD Work Phone: Start: 04-07-2024 Glucose quantitative blood xcpt reagent strip Srinivasa Poon MD Work Phone: Start: 04-07-2024 Ecg routine ecg w/le ast 12 lds trcg only w/o i&r Pita Horvathoolagkala LAB SUPPORT TECH - WALL MAN Work Phone: Start: 04-07-2024 Electrophysiology study Katia Augustin LAB SUPPORT TECH - WALL MAN Work Phone: Start: 04-07-2024 Ecg routine ecg w/le ast 12 lds trcg only w/o i&r Lindsey Tolentino LAB SUPPORT TECH - WALL MAN Work Phone: Start: 04-07-2024 Ecg routine ecg w/le ast 12 lds trcg only w/o i&r Srinivasa Poon MD Work Phone: Start: 04-07-2024 Echo tthrc r-t 2d w/ wom-mode compl spec&colr d Lindsey Tolentino LAB SUPPORT TECH - W[employer] Work Phone: Start: 04-07-2024 End: 04-07-2024 Glucose quantitative blood xcpt reagent strip Srinivasa Poon MD Work Phone: Start: 04-07-2024 OXYGEN THERAPY Lindsey Delatorre Fer LAB SUPPORT TECH - WALL MAN Work Phone: Start: 04-07-2024 Ecg routine ecg w/le ast 12 lds trcg only w/o i&r Lindsey Delatorre Fer LAB SUPPORT TECH - W[employer] Work Phone: Start: 04-07-2024 Basic metabolic pane l calcium total Lindsey Delatorre Fer LAB SUPPORT TECH - W[employer] Work Phone: Start: 04-06-2024 Glucose quantitative blood xcpt reagent strip Srinivasa Poon MD Work Phone: Start: 04-06-2024 OXYGEN THERAPY Lindsey Delatorre Fer LAB SUPPORT TECH - WALL MAN Work Phone: Start: 04-06-2024 Glucose quantitative blood xcpt reagent strip Srinivasa Poon MD Work Phone: Start: 04-06-2024 Ecg routine ecg w/le ast 12 lds trcg only w/o i&r Lindsey Delatorre Fer LAB SUPPORT TECH - WALL MAN Work Phone: Start: 04-06-2024 Basic metabolic pane l calcium total Lindsey Delatorre Fer LAB SUPPORT TECH - WALL MAN Work Phone: Start: 04-06-2024 End: 04-06-2024 OXYGEN THERAPY Al HADLEY RN - PROCESS DEVELOPMENT CHEMIST Work Phone: Start: 04-06-2024 Cardiac catheterizat ion study Srinivasa Poon MD Work Phone: Start: 04-06-2024 Echo transthorc r-t 2d w/wo m-mode rec f-up/lmtd Joao Davis MD Work Phone: Start: 04-06-2024 End: 04-06-2024 TRANSCATHETER AORTIC VALVE REPLACEMENT (TAVR) - OR Jayson Key MD Work Phone: Start: 04-06-2024 Glucose quantitative blood xcpt reagent strip Srinivasa Poon MD Work Phone: Start: 04-06-2024 Antibody screen SRINIVASA RENDON Comment on above: Performed By: #### L [id number] ####Supplier Quality Engineering Manager: GRISEL GARZA ([phone])[facility] ([facility])[address] [place] [address] Start: 04-06-2024 ABO and Rh group [Ty pe] in Blood by Confirmatory method America Davis LAB SUPPORT TECH - WALL MAN Work Phone: Start: 04-06-2024 Blood typing serologic abo America Davis LAB SUPPORT TECH - WALL MAN Work Phone: Start: 04-06-2024 Glucose quantitative blood xcpt reagent strip Srinivasa Poon MD Work Phone: Start: 04-01-2024 Antibody screen KAMLESH PIRES Comment on above: Order Comment: Speci men Type: BLOOD SPECIMENOrdering Facility: [facility] Address: [address] [place] [address] Performed By: #### T SCR ####[facility] [id number] [place] [address] [place] Start: 03-10-2024 Ecg routine ecg w/le ast 12 lds trcg only w/o i&r Srinivasa Poon MD Work Phone: Start: 02-25-2024 Adult depression scr eening assessment Kamlesh Acosta LAB SUPPORT TECH.WALL MAN Work Phone: Start: 05-11-2023 INFLUENZA VACCINE, P RSV FREE, AGE 65+ YR, HIGH DOSE, QUADRIVALENT (FLUZONE HIGH-DOSE) Abby Mcclellan MD Work Phone: Start: 04-26-2023 Screening mammograph y bi 2-view breast inc cad Abby Mcclellan MD Work Phone: Start: 07-31-2022 Radiologic exam ches t 2 views Keily Mckinney LAB SUPPORT TECH.WALL MAN Work Phone: Start: 04-25-2022 End: 04-25-[address] Abby Mcclellan Work Phone: Start: 04-20-2021 Mammography Abby pierce MD Work Phone: Start: 02-14-2021 Adult depression scr eening assessment Abby Mcclellan MD Work Phone: Start: 05-18-2020 Radiologic exam ches t 2 views Abdullahi Flannery LAB SUPPORT TECH.WALL MAN Work Phone: Start: 02-10-2019 Colonoscopy [facility] holden LAB SUPPORT TECH.SPA HOST Work Phone: Start: 02-02-2019 Colonoscopy Abby pierce MD Work Phone: Plan of Treatment Date Care Activity Detail Author Start: 02-10-2029 Colonoscopy COLONOSCOPY [facility] Start: 02-10-2029 COLORECTAL CANCER SCREENING COLORECTAL CANCER SCREENING [facility] Start: 02-10-2029 Screening for malign ant neoplasm of colon [facility] Start: 01-11-2026 Annual PCP Team [employer] kaleb Disease Visit Annual PCP Team Chronic Disease Visit [facility] Start: 11-10-2025 Annual PCP Team [employer] kaleb Disease Visit Annual PCP Team Chronic Disease Visit [facility] Start: 11-10-2025 BP Controlled (<130/80) BP Controlle d (<130/80) [facility] Start: 09-29-2025 Annual PCP Team [employer] kaleb Disease Visit Annual PCP Team Chronic Disease Visit [facility] Start: 09-29-2025 BP Controlled (<130/80) BP Controlle d (<130/80) [facility] Start: 09-19-2025 Hepatitis B screening Urine Al bumin:Creatinine Ratio [facility] Start: 09-19-2025 Hepatitis B surface antibody level LDL Cholesterol [facility] Start: 06-19-2025 Glaucoma screening Dilated Retinal E xam [facility] Start: 05-21-2025 End: 04-17-2026 US Heart Transthoracic Transthoracic echocardiogram (TTE) complete with contrast, bubble, strain, and 3D PRN CV Echocardiography Routine S/P TAVR (transcatheter aortic valve replacement) Aortic valve stenosis, etiology of cardiac valve disease unspecified Expected: 05/21/2025 (Approximate), Expires: 04/17/2026 [facility] Comment on above: Expected: 05/21/2025 (Approximate), Expires: 04/17/2026 Start: 05-04-2025 Diabetes: Estimated Glomerular Filtration Rate for [facility]ney [facility] Diabetes: Estimated Glomerular Filtration Rate for [facility] Start: 04-08-2025 Diabetes: Estimated Glomerular Filtration Rate for [facility] Diabetes: Estimated Glomerular Filtration Rate for [facility] Start: 04-01-2025 Diabetes: Estimated Glomerular Filtration Rate for [facility] Diabetes: Estimated Glomerular Filtration Rate for [facility] Start: 03-29-2025 Influenza vaccination S [facility] [employer] Start: 03-04-2025 End: 03-04-2025 Patient encounter procedure [facility] [address] Non-Invasive Cardiology Start: 02-24-2025 Annual PCP Team [employer] kaleb Disease Visit Annual PCP Team Chronic Disease Visit [facility] Start: 02-24-2025 Anxiety Screening Anxiety Screening [facility] Start: 02-24-2025 BP Controlled (<130/80) BP Controlle d (<130/80) [facility] Start: 02-24-2025 Depression Screening Depression Scre ening [facility] Start: 02-15-2025 End: 02-15-2025 Patient encounter procedure 02/15/2025 11:00 AM EDT Office Visit [facility] [place] [address] [place] [address] Kamlesh Acosta APRN.WALL MAN [address] [place] [address] 5 week follow up of pain and new medications [facility] Comment on above: 5 week follow up of pain and new medications Start: 01-11-2025 End: 01-11-2025 Patient encounter procedure 01/11/2025 11:20 AM EDT Office Visit Internal Medicine [facility] [address] [place] [address] Kamlesh Acosta APRN.WALL MAN [address] [place] [address] 8 week follow up Internal Medicine Heidi Comment on above: 8 week follow up Start: 12-17-2024 Hemoglobin A1c measurement HbA1C [facility] Start: 11-10-2024 End: 11-10-2024 Patient encounter procedure 11/10/2024 11:20 AM EDT Office Visit Internal Medicine Heidi [address] [place] [address] Kamlesh Acosta APRN.WALL MAN [address] [place] [place] [address] 6 week follow up Internal Medicine Heidi Comment on above: 6 week follow up Start: 10-24-2024 Annual PCP Team Solar/Renewable [employer] Sales kaleb Disease Visit Annual PCP Team Chronic Disease Visit [facility] Start: 10-24-2024 BP Controlled (<130/80) BP Controlle d (<130/80) [facility] Start: 10-24-2024 Covid-19 Vaccine () Covid-19 Vaccine () [facility] Comment on above: Postponed from 03/29 (Declined at this time) Start: 10-24-2024 Diabetic foot examination Diabetic Foot Exam [facility] Start: 10-17-2024 Hepatitis B surface antibody level LDL Cholesterol [facility] Start: 09-29-2024 End: 09-29-2024 Patient encounter procedure Internal Medicine Heidi Comment on above: follow up Start: 09-12-2024 End: 12-12-2024 Comprehensive metabolic 2000 panel - Serum or Plasma COMPREHENSIVE METABOLIC PANEL Lab Routine Type 2 diabetes mellitus with other specified complication, without long-term current use of insulin (HCC) Hypertension goal BP (blood pressure) < 140/90 Expected: 09/12/2024 (Approximate), Expires: 12/12/2024 [facility] Comment on above: Expected: 09/12/2024 (Approximate), Expires: 12/12/2024 Start: 09-12-2024 End: 12-12-2024 Hemoglobin A1c in Blood HEMOGLOBIN A1C Lab Routine Type 2 diabetes mellitus with other specified complication, without long-term current use of insulin (HCC) Expected: 09/12/2024 (Approximate), Expires: 12/12/2024 [facility] Work Phone: Comment on above: Expected: 09/12/2024 (Approximate), Expires: 12/12/2024 Start: 09-12-2024 End: 12-12-2024 Lipid 1996 panel - Serum or Plasma LIPID PANEL BASIC Lab Routine Hyperlipidemia associated with type 2 diabetes mellitus (HCC) (HCC) Expected: 09/12/2024 (Approximate), Expires: 12/12/2024 [facility] Comment on above: Expected: 09/12/2024 (Approximate), Expires: 12/12/2024 Start: 09-12-2024 End: 12-12-2024 Microalbumin/Creatinine [Mass Ratio] in Urine ALBUMIN/CREATININE RATIO, URINE Lab Routine Type 2 diabetes mellitus with other specified complication, without long-term current use of insulin (HCC) Expected: 09/12/2024 (Approximate), Expires: 12/12/2024 [facility] Comment on above: Expected: 09/12/2024 (Approximate), Expires: 12/12/2024 Start: 08-21-2024 Hemoglobin A1c measurement HbA1C [facility] Start: 07-29-2024 Advance Directive Discussion Advance Directive Discussion [facility] Start: 07-29-2024 Medicare Advantage Annual Wellness Visit Medicare Advantage Annual Wellness Visit [facility] Start: 07-26-2024 Annual PCP Team Solar[employer]Ren[employer] Sales kaleb Disease Visit Annual PCP Team Chronic Disease Visit [facility] Start: 07-26-2024 BP Controlled (<130/80) BP Controlle d (<130/80) [facility] Start: 07-26-2024 Diabetes: Urine Albumin-Creatinine Ratio for Kidney Health Diabetes: Urine Albumin-Creatinine Ratio for Kidney Health [facility] Start: 07-26-2024 Hepatitis B screening Urine Al bumin:Creatinine Ratio [facility] Start: 07-10-2024 End: 07-10-2024 Professional / ancillary services management 07/10/2024 1:00 PM EST Ancillary Procedure [facility] [place] [address] [place] [id number] [facility] Start: 06-29-2024 End: 06-29-2024 Patient encounter procedure 06/29/2024 11:20 AM EST Office Visit Internal Medicine Heidi [address] [place] [address] Heidy Hawk, LAB SUPPORT TECH.SPA HOST [address] [place], [place] [id number] 4 month follow up Internal Medicine Heidi Comment on above: 4 month follow up Start: 06-01-2024 End: 08-31-2024 CBC W Auto Differential panel - Blood COMPLETE BLOOD COUNT AND DIFFERENTIAL Lab Routine Encounter for therapeutic drug monitoring Expected: 06/01/2024, Expires: 08/31/2024 [facility] Work Phone: Comment on above: Expected: 06/01/2024 , Expires: 08/31/2024 Start: 06-01-2024 End: 08-31-2024 Comprehensive metabolic 2000 panel - Serum or Plasma COMPREHENSIVE METABOLIC PANEL Lab Routine Encounter for therapeutic drug monitoring Expected: 06/01/2024, Expires: 08/31/2024 [facility] Comment on above: Expected: 06/01/2024 , Expires: 08/31/2024 Start: 06-01-2024 End: 08-31-2024 Hemoglobin A1c in Blood HEMOGLOBIN A1C Lab Routine Type 2 diabetes mellitus with other specified complication, without long-term current use of insulin (HCC) Expected: 06/01/2024, Expires: 08/31/2024 [facility] Comment on above: Expected: 06/01/2024 , Expires: 08/31/2024 Start: 06-01-2024 End: 08-31-2024 Lipid 1996 panel - Serum or Plasma LIPID PANEL BASIC Lab Routine Hyperlipidemia associated with type 2 diabetes mellitus (HCC) (HCC) Expected: 06/01/2024, Expires: 08/31/2024 [facility] Comment on above: Expected: 06/01/2024 , Expires: 08/31/2024 Start: 05-29-2024 Glaucoma screening Dilated Retinal E xam [facility] Start: 05-29-2024 Hepatitis C antibody , confirmatory test Dilated Retinal Exam [facility] Start: 05-07-2024 End: 05-07-2024 Patient encounter procedure [facility] [address] [facility]-In[facility] Start: 05-07-2024 End: 05-07-2024 Professional / ancillary services management 05/07/2024 1:30 PM EDT Ancillary Procedure [facility] [place] [address] [place] [id number] [facility] Start: 04-28-2024 End: 04-28-2024 Professional / ancillary services management 04/28/2024 1:00 PM EDT Ancillary Procedure [facility] [address] [place] [address] [facility] Start: 04-26-2024 Mammography Mammogram Screening [facility] Start: 04-26-2024 Screening for malign ant neoplasm of breast Mammogram Screening [facility] Start: 04-19-2024 Annual PCP Team Solar[employer] Sales kaleb Disease Visit Annual PCP Team Chronic Disease Visit [facility] Start: 04-19-2024 BP Controlled (<130/80) BP Controlle d (<130/80) [facility] Start: 04-19-2024 Hemoglobin A1c measurement HbA1C [facility] Start: 04-17-2024 End: 04-17-2025 Basic metabolic 1998 panel - Serum or Plasma Basic metabolic panel Lab Routine Essential hypertension S/P TAVR (transcatheter aortic valve replacement) Aortic valve stenosis, etiology of cardiac valve disease unspecified Expected: 04/17/2024 (Approximate), Expires: 04/17/2025 [facility] Work Phone: Comment on above: Expected: 04/17/2024 (Approximate), Expires: 04/17/2025 Start: 04-17-2024 End: 04-17-2025 CBC W Auto Differential panel - Blood CBC auto differential Lab Routine Essential hypertension S/P TAVR (transcatheter aortic valve replacement) Aortic valve stenosis, etiology of cardiac valve disease unspecified Expected: 04/17/2024 (Approximate), Expires: 04/17/2025 [facility] Comment on above: Expected: 04/17/2024 (Approximate), Expires: 04/17/2025 Start: 04-17-2024 End: 04-17-2025 Thyrotropin [Units/volume] in Serum or Plasma TSH Lab Routine Essential hypertension S/P TAVR (transcatheter aortic valve replacement) Aortic valve stenosis, etiology of cardiac valve disease unspecified Expected: 04/17/2024 (Approximate), Expires: 04/17/2025 [facility] Comment on above: Expected: 04/17/2024 (Approximate), Expires: 04/17/2025 Start: 04-16-2024 End: 04-16-2024 Patient encounter procedure 04/16/2024 1:30 PM EDT Office Visit [facility] [address] [place] [phone] America Davis APRN - WALL [employer] [address] [place] [address] [facility] Start: 04-15-2024 Hepatitis B surface antibody level LDL Cholesterol [facility] Start: 04-06-2024 End: 04-06-2024 Admission to same day surgery center 04/06/2024 11:00 AM EDT - 04/06/2024 12:45 PM EDT Surgery [facility] [address] [facility] [place] [address] Srinivasa Poon MD [address] [facility] [address] [place] [address] TRANSCATHETER AORTIC VALVE REPLACEMENT, TRANSTHORACIC ECHOCARDIOGRAM [facility] Comment on above: TRANSCATHETER AORTIC VALVE REPLACEMENT, TRANSTHORACIC ECHOCARDIOGRAM Start: 04-06-2024 End: 04-06-2024 Anesthesia consultation 04/06/2024 11:00 AM EDT Anesthesia Event [facility] [address] [facility] [place] [address] Radha Marquez, LAB SUPPORT TECH - WALL MAN [address] [facility] [address] [place] [address] [facility] Start: 04-06-2024 Subsequent hospital visit by physician 04/06/2024 11:00 AM EDT Hospital Encounter [facility] [address] [facility] [place] [address] Srinivasa Poon MD [address] [facility] [address] [place], [place] [id number] Nonrheumatic aortic valve stenosis [facility] Comment on above: Nonrheumatic aortic valve stenosis Start: 04-06-2024 End: 04-06-2024 TRANSCATHETER AORTIC VALVE REPLACEMENT (TAVR) - OR TRANSCATHETER AORTIC VALVE REPLACEMENT (TAVR) - OR Nonrheumatic aortic valve stenosis 04/06/2024 11:00 AM EDT [facility] Start: 03-29-2024 COVID-19 Vaccine ( season) COVID-19 Vaccine ( season) [facility] Start: 03-29-2024 Covid-19 Vaccine ( season) Covid-19 Vaccine () [facility] Start: 03-29-2024 Influenza vaccination Influenza Vacc ine (#1) [facility] Start: 12-18-2023 ANNUAL PCP TEAM BUMPER MACHINE OPERATOR KALEB DISEASE VISIT ANNUAL PCP TEAM CHRONIC DISEASE VISIT [facility] Start: 12-18-2023 BP CONTROLLED (<130/80) BP CONTROLLE D (<130/80) [facility] Start: 12-13-2023 Hepatitis B surface antibody level LDL CHOLESTEROL [facility] Start: 10-25-2023 Hemoglobin A1c measurement HbA1C [facility] Start: 08-14-2023 ANNUAL PCP TEAM BUMPER MACHINE OPERATOR KALEB DISEASE VISIT ANNUAL PCP TEAM CHRONIC DISEASE VISIT [facility] Start: 08-06-2023 Hepatitis B screening URINE AL BUMIN:CREATININE RATIO [facility] Start: 08-06-2023 Hepatitis B surface antibody level LDL CHOLESTEROL [facility] Start: 07-31-2023 BP CONTROLLED (<130/80) BP CONTROLLE D (<130/80) [facility] Start: 07-29-2023 Advance Directive Discussion Advance Directive Discussion [facility] Start: 07-29-2023 Behavioral Health Screening Behavioral Health Screening [facility] Start: 07-29-2023 Depression Assessment Depression Ass essment [facility] Start: 07-29-2023 Medicare Advantage Annual Wellness Visit Medicare Advantage Annual Wellness Visit [facility] Start: 07-15-2023 Hemoglobin A1c measurement HbA1C [facility] Start: 07-15-2023 Hemoglobin A1c/Hemoglobin.total in Blood HbA1C [facility] Start: 2023 Hemoglobin A1c/Hemoglobin.total in Blood HBA1C [facility] Start: 2023 RSV Immunization for Adults (1 - 1-dose 75+ series) RSV Immunization for Adults (1 - 1-dose 75+ series) [facility] Start: 2023 RSV Vaccine (1 - 1-d ose 75+ series) RSV Vaccine (1 - 1-dose 75+ series) [facility] Start: 04-25-2023 Mammography [facility] Start: 04-18-2023 ANNUAL PCP TEAM BUMPER MACHINE OPERATOR KALEB DISEASE VISIT ANNUAL PCP TEAM CHRONIC DISEASE VISIT [facility] Start: 04-18-2023 BP CONTROLLED (<130/80) BP CONTROLLE D (<130/80) [facility] Start: 04-18-2023 COVID-19 VACCINE (#1) COVID-19 VACCI NE (#1) [facility] Comment on above: Postponed from 12/12 (Declined at this time) Start: 04-18-2023 SHINGRIX VACCINE (1 of 2) SHINGRIX VACCINE (1 of 2) [facility] Comment on above: Postponed from 06/14 (Declined at this time) Start: 04-18-2023 Urine microalbumin profile DTAP,TDAP,TD (1 - Tdap) [facility] Comment on above: Postponed from 09/07 (Declined at this time) Start: 04-03-2023 Hepatitis C antibody , confirmatory test DILATED RETINAL EXAM [facility] Start: 03-29-2023 Covid-19 Vaccine ( season) Covid-19 Vaccine ( season) [facility] Start: 03-29-2023 Influenza vaccination Influenza Vacc ine (#1) [facility] Start: 02-03-2023 Hemoglobin A1c/Hemoglobin.total in Blood HBA1C [facility] Start: 12-07-2022 BP CONTROLLED (<130/80) BP CONTROLLE D (<130/80) [facility] Start: 10-10-2022 Hemoglobin A1c/Hemoglobin.total in Blood HBA1C [facility] Start: 09-06-2022 ANNUAL PCP TEAM BUMPER MACHINE OPERATOR KALEB DISEASE VISIT ANNUAL PCP TEAM CHRONIC DISEASE VISIT [facility] Start: 08-28-2022 Hepatitis B screening URINE AL BUMIN:CREATININE RATIO [facility] Start: 08-18-2022 End: 10-18-2022 ALBUMIN/CREAT RATIO RND UR ALBUMIN/CREAT RATIO RND UR Lab Routine Controlled type 2 diabetes mellitus without complication, without long-term current use of insulin (HCC) Expected: 08/18/2022 (Approximate), Expires: 10/18/2022 [facility] Work Phone: Comment on above: Expected: 08/18/2022 (Approximate), Expires: 10/18/2022 Start: 08-18-2022 End: 10-18-2022 CBC panel - Blood by Automated count CBC Lab Routine Controlled type 2 diabetes mellitus without complication, without long-term current use of insulin (HCC) Essential hypertension Expected: 08/18/2022 (Approximate), Expires: 10/18/2022 [facility] Work Phone: Comment on above: Expected: 08/18/2022 (Approximate), Expires: 10/18/2022 Start: 08-18-2022 End: 10-18-2022 Comprehensive metabolic 2000 panel - Serum or Plasma COMP METABOLIC PANEL Lab Routine Controlled type 2 diabetes mellitus without complication, without long-term current use of insulin (HCC) Essential hypertension Expected: 08/18/2022 (Approximate), Expires: 10/18/2022 [facility] Work Phone: Comment on above: Expected: 08/18/2022 (Approximate), Expires: 10/18/2022 Start: 08-18-2022 End: 10-18-2022 Hemoglobin A1c in Blood HGB A1C Lab Routine Controlled type 2 diabetes mellitus without complication, without long-term current use of insulin (HCC) Expected: 08/18/2022 (Approximate), Expires: 10/18/2022 [facility] Work Phone: Comment on above: Expected: 08/18/2022 (Approximate), Expires: 10/18/2022 Start: 08-18-2022 End: 10-18-2022 Lipid 1996 panel - Serum or Plasma LIPID PANEL BASIC Lab Routine Controlled type 2 diabetes mellitus without complication, without long-term current use of insulin (HCC) Essential hypertension Expected: 08/18/2022 (Approximate), Expires: 10/18/2022 [facility] Work Phone: Comment on above: Expected: 08/18/2022 (Approximate), Expires: 10/18/2022 Start: 07-29-2022 ADVANCE DIRECTIVE DISCUSSION ADVANCE DIRECTIVE DISCUSSION [facility] Start: 07-29-2022 DEPRESSION ASSESSMENT DEPRESSION ASS ESSMENT [facility] Start: 07-10-2022 SHINGRIX VACCINE (2 of 2) SHINGRIX VACCINE (2 of 2) [facility] Start: 07-03-2022 Hzv zoster vacc recombinant adjuvanted im njx ZOSTER VACC RECOMBINANT,IM Immunization/Injection Routine Need for vaccination Expected: 07/03/2022 (Approximate) [facility] Work Phone: Comment on above: Expected: 07/03/2022 (Approximate) Start: 04-20-2022 Mammography MAMMOGRAM [facility] Start: 03-29-2022 Influenza vaccination INFLUENZA (#1) [facility] Start: 03-06-2022 Hemoglobin A1c/Hemoglobin.total in Blood HBA1C [facility] Start: 02-14-2022 3 comp foot exam completed DIABETIC FOOT EXAM [facility] Start: 02-14-2022 Adult depression screening assessment DEPRESSION SCREENING [facility] Start: 02-14-2022 COVID-19 VACCINE (#1) COVID-19 VACCI NE (#1) [facility] Comment on above: Postponed from 06/14 (Declined at this time) Start: 02-14-2022 Diabetic foot examination Diabetic Foot Exam [facility] Start: 02-10-2022 Hepatitis B surface antibody level LDL CHOLESTEROL [facility] Start: 02-02-2022 Colonoscopy COLONOSCOPY [facility] Start: 02-02-2022 COLORECTAL CANCER SCREENING COLORECTAL CANCER SCREENING [facility] Start: 07-29-2021 ADVANCE DIRECTIVE DISCUSSION ADVANCE DIRECTIVE DISCUSSION [facility] Start: 07-29-2021 DEPRESSION ASSESSMENT DEPRESSION ASS ESSMENT [facility] Start: 03-10-2021 Hepatitis C antibody , confirmatory test DILATED RETINAL EXAM [facility] Start: 09-07-2011 DTaP/Tdap/Td Vaccine s (1 - Tdap) DTaP/Tdap/Td Vaccines (1 - Tdap) [facility] Start: 09-07-2011 Urine microalbumin profile [facility] Start: 2008 Hepatitis B Vaccine (1 of 3 - Risk 3-dose series) Hepatitis B Vaccine (1 of 3 - Risk 3-dose series) [facility] Start: 2008 RSV Immunization age d 60 or older (1 - 1-dose 60+ series) RSV Immunization aged 60 or older (1 - 1-dose 60+ series) [facility] Start: 2008 RSV Vaccine (1 - 1-d ose 60+ series) RSV Vaccine (1 - 1-dose 60+ series) [facility] Start: 1998 SHINGRIX VACCINE (1 of 2) SHINGRIX VACCINE (1 of 2) [facility] Start: 1993 COLOGUARD (FIT-DNA) COLOGUARD (FIT-D NA) [facility] Start: [address] COLONOGRAPHY [facility] Start: 1993 FECAL OCCULT BLOOD FECAL OCCULT BLOO D [facility] Start: 1993 Screening for malign ant neoplasm of colon [facility] Start: 1993 SIGMOIDOSCOPY SIGMOIDOSCOPY [facility] Start: 1966 BP CONTROLLED (<130/80) BP CONTROLLE D (<130/80) [facility] Start: 1966 Diabetes: Estimated Glomerular Filtration Rate for Kidney Health Diabetes: Estimated Glomerular Filtration Rate for Kidney Health [facility] Start: 1966 Hepatitis C screening Hepatitis C Sc reening [facility] Start: 1960 Depression Screening Depression Scre ening [facility] Start: 1958 Glaucoma screening Diabetes: R etinopathy Screening [facility] Start: 1948 Covid-19 Vaccine (#1) Covid-19 Vacci ne (#1) [facility] Start: 1948 Screening for malign ant neoplasm of colon [facility] Start: 1948 Screening for osteoporosis Bone Density Scan [facility] End: 03-10-2024 CT Chest WO and CT angiogram Coronary arteries W contrast IV [facility] Work Phone: Comment on above: Once for 1 Occurrenc es starting 03/10/2024 until 03/10/2024 ECG 12 lead - CLINIC PERFORMED ECG 12 lead - CLINIC PERFORMED CV ECG Routine PAF (paroxysmal atrial fibrillation) (HCC) 03/10/2024 3:05 PM [facility] ECG 12 lead - CLINIC PERFORMED ECG 12 lead - CLINIC PERFORMED CV ECG Routine Essential hypertension 04/17/2024 1:10 PM EDT [facility] Work [facility]: ECG 12 lead - CLINIC PERFORMED ECG 12 lead - CLINIC PERFORMED CV ECG Routine Severe aortic stenosis 05/07/2024 3:40 PM EDT [facility] Work Phone: Hzv zoster vacc recombinant adjuvanted im njx ZOSTER VACC RECOMBINANT,IM Immunization/Injection Routine Need for vaccination Ordered: 05/04/2022 [facility] Work Phone: Comment on above: Ordered: 05/04/2022 End: 05-18-2023 Screening mammography bi 2-view breast inc cad DAVID SCREENING Radiology Routine Encounter for screening mammogram for breast cancer 1 Occurrences starting 04/18/2022 until 05/18/2023 [facility] Work Phone: Comment on above: 1 Occurrences starti ng 04/18/2022 until 05/18/2023 [facility] Immunizations Immunization Date Immunization Notes Care Provider Chelsie barry 09-29-2024 influenza, high dose seasonal, preservative-free Kamlesh Acosta LAB SUPPORT TECH.[employer] Work Phone: [facility] 09-29-2024 influenza virus vaccine, unspecified formulation Abby Mcclellan MD Work Phone: [facility] 05-11-2023 influenza (HD-IIV4) vaccine, age 65+ yr, high dose, quadrivalent, PF (FLUZONE HIGH-DOSE) Immunization [place] Work Phone: [facility] 05-11-2023 influenza virus vaccine, unspecified formulation Kamlesh Acosta LAB SUPPORT TECH.WALL MAN Work Phone: [facility] 08-14-2022 zoster vaccine recombinant Abby Mcclellan MD Work Phone: [facility] 05-19-2022 influenza, high-dose , quadrivalent vaccine (FLUZONE HIGH DOSE QUADRIVALENT) Keily Mckinney LAB SUPPORT TECH.WALL MAN Work Phone: [facility] 05-19-2022 influenza virus vaccine, unspecified formulation Kamlesh Acosta LAB SUPPORT TECH.[employer] Work Phone: [facility] 05-15-2022 zoster vaccine recombinant Mi Nurse Work Phone: [facility] Work Phone: 06-03-2021 influenza, high-dose , quadrivalent vaccine (FLUZONE HIGH DOSE QUADRIVALENT) Abby Mcclellan MD Work Phone: [facility] 07-01-2020 influenza, high-dose , quadrivalent vaccine (FLUZONE HIGH DOSE QUADRIVALENT) Abby Mcclellan MD Work Phone: [facility] 05-27-2019 influenza, high dose seasonal, preservative-free Abby Mcclellan MD Work Phone: [facility] 05-12-2018 influenza, high dose seasonal, preservative-free Abby Mcclellan MD Work Phone: [facility] 05-08-2017 influenza, high dose seasonal, preservative-free Abby Mcclellan MD Work Phone: [facility] 12-31-2016 pneumococcal polysaccharide vaccine, 23 valent Abby Mcclellan MD Work Phone: [facility] 06-27-2016 influenza, high dose seasonal, preservative-free Abby Mcclellan MD Work Phone: [facility] 11-07-2015 pneumococcal conjuga te vaccine, 13 valent Abby Mcclellan MD Work Phone: [facility] 05-29-2015 influenza, injectabl e, quadrivalent, preservative free Kamlesh Acosta APRN.CNP Work Phone: [facility] 05-29-2015 influenza, seasonal, injectable Dr. Abby Mcclellan Work Phone: [facility] 05-25-2015 influenza, high dose seasonal, preservative-free Abby Mcclellan MD Work Phone: [facility] 08-10-2013 influenza virus vaccine, unspecified formulation Abby Mcclellan MD Work Phone: [facility] 05-19-2012 influenza virus vaccine, unspecified formulation Abby Mcclellan MD Work Phone: [facility] 09-06-2011 tetanus and diphther ia toxoids, adsorbed, preservative free, for adult use (2 Lf of tetanus toxoid and 2 Lf of diphtheria toxoid) Abby Mcclellan MD Work Phone: [facility] Work Phone: 07-25-2011 influenza virus vaccine, unspecified formulation Abby Mcclellan MD Work Phone: [facility] 05-16-2010 influenza virus vaccine, unspecified formulation Abby Mcclellan MD Work Phone: [facility] 05-10-2008 influenza virus vaccine, unspecified formulation Abby Mcclellan MD Work Phone: [facility] 07-08-2007 influenza virus vaccine, unspecified formulation Abby Mcclellan MD Work Phone: [facility] 04-16-2006 tetanus and diphther ia toxoids, adsorbed, preservative free, for adult use (2 Lf of tetanus toxoid and 2 Lf of diphtheria toxoid) Abby Mcclellan MD Work Phone: [facility] Work Phone: Payers Date Payer Category Payer Self-pay [id number] 2022 Medicare (Managed Care) [facility] [id number] 2022 Medicare HMO [employer] [id number] 2022 Medicare [id number] 2021 Medicare [employer] MEDICARE [employer] PPO [id number] 2021-Present [phone] [address] [address] [place] [address] PPO [id number] 2017 Medicare [id number] 2014 Unknown [id number] Unknown [id number] Unknown [id number] Unknown [id number] [id number] Unknown [id number] [id number] Unknown [id number] [id number] Unknown [id number] [id number] Unknown [id number] [id number] Unknown [id number] [id number] Unknown [id number] [id number] Unknown [id number] Social History Date Type Detail Facility Start: 11-01-2021 End: 02-12-2022 Tobacco smoking status NHIS Unknown if ever smoked [facility] Work Phone: Start: 12-02-2019 None [facility] Start: 12-02-2019 Spouse/ Signif icant Other [facility] Start: 11-20-2019 Non-smoker [facility] Start: 1950 Sex Assigned At Female W [facility] Start: 12-15-2010 End: 01-20-2024 Tobacco smoking status NHIS Never smoked tobacco [facility] Work Phone: Start: 02-14-2021 End: 01-11-2025 Alcohol intake Current non-drinker of alcohol (finding) [facility] Start: 1950 Sex Assigned At Not on file [facility] Start: 04-18-2020 End: 04-26-2022 Exposure to SARS-CoV-2 (event) Not sure [facility] Work Phone: Start: 12-15-2010 End: 03-03-2024 Tobacco use and exposure Smokeless tobacco non-user [facility] Work Phone: Start: 12-17-2022 End: 04-19-2023 History of Social function [facility] Work Phone: Start: 12-17-2022 End: 04-19-2023 Tobacco use panel [facility] Work Phone: Adult Depression Screening Assessment 0 [facility] Work Phone: Start: 03-10-2024 End: 05-07-2024 Alcoholic beverage intake Lifetime non-drinker (finding) [facility] Start: 02-07-2024 Sex Female (finding) [facility] [employer] [facility] Procedure Code Equipment Code Equipment Original Text Equipment Identifier Dates Minimally invasive total replacement of hip joint by anterior approach 127 DEGREE STEM FDA Start: 12-02-2019 Minimally invasive total replacement of hip joint by anterior approach ACETABULAR SHELL FDA Start: 12-02-2019 Minimally invasive total replacement of hip joint by anterior approach MDM LINER FDA Start: 12-02-2019 Minimally invasive total replacement of hip joint by anterior approach MDM LINER FDA Start: 12-02-2019 Minimally invasive total replacement of hip joint by anterior approach V40 FEMORAL HEAD FDA Start: 12-02-2019 Minimally invasive total replacement of hip joint by anterior approach 127 DEGREE STEM FDA Start: 12-02-2019 Minimally invasive total replacement of hip joint by anterior approach ACETABULAR SHELL FDA Start: 12-02-2019 Minimally invasive total replacement of hip joint by anterior approach MDM LINER FDA Start: 12-02-2019 Minimally invasive total replacement of hip joint by anterior approach MDM LINER FDA Start: 12-02-2019 Minimally invasive total replacement of hip joint by anterior approach V40 FEMORAL HEAD FDA Start: 12-02-2019 Minimally invasive total replacement of hip joint by anterior approach 127 DEGREE STEM FDA Start: 12-02-2019 Minimally invasive total replacement of hip joint by anterior approach ACETABULAR SHELL FDA Start: 12-02-2019 Minimally invasive total replacement of hip joint by anterior approach MDM LINER FDA Start: 12-02-2019 Minimally invasive total replacement of hip joint by anterior approach MDM LINER FDA Start: 12-02-2019 Minimally invasive total replacement of hip joint by anterior approach V40 FEMORAL HEAD FDA Start: 12-02-2019 Minimally invasive total replacement of hip joint by anterior approach 127 DEGREE STEM FDA Start: 12-02-2019 Minimally invasive total replacement of hip joint by anterior approach ACETABULAR SHELL FDA Start: 12-02-2019 Minimally invasive total replacement of hip joint by anterior approach MDM LINER FDA Start: 12-02-2019 Minimally invasive total replacement of hip joint by anterior approach MDM LINER FDA Start: 12-02-2019 Minimally invasive total replacement of hip joint by anterior approach V40 FEMORAL HEAD FDA Start: 12-02-2019 Minimally invasive total replacement of hip joint by anterior approach 127 DEGREE STEM FDA Start: 12-02-2019 Minimally invasive total replacement of hip joint by anterior approach ACETABULAR SHELL FDA Start: 12-02-2019 Minimally invasive total replacement of hip joint by anterior approach MDM LINER FDA Start: 12-02-2019 Minimally invasive total replacement of hip joint by anterior approach MDM LINER FDA Start: 12-02-2019 Minimally invasive total replacement of hip joint by anterior approach V40 FEMORAL HEAD FDA Start: 12-02-2019 Minimally invasive total replacement of hip joint by anterior approach 127 DEGREE STEM FDA Start: 12-02-2019 Minimally invasive total replacement of hip joint by anterior approach ACETABULAR SHELL FDA Start: 12-02-2019 Minimally invasive total replacement of hip joint by anterior approach MDM LINER FDA Start: 12-02-2019 Minimally invasive total replacement of hip joint by anterior approach MDM LINER FDA Start: 12-02-2019 Minimally invasive total replacement of hip joint by anterior approach V40 FEMORAL HEAD FDA Start: 12-02-2019 Minimally invasive total replacement of hip joint by anterior approach 127 DEGREE STEM FDA Start: 12-02-2019 Minimally invasive total replacement of hip joint by anterior approach ACETABULAR SHELL FDA Start: 12-02-2019 Minimally invasive total replacement of hip joint by anterior approach MDM LINER FDA Start: 12-02-2019 Minimally invasive total replacement of hip joint by anterior approach MDM LINER FDA Start: 12-02-2019 Minimally invasive total replacement of hip joint by anterior approach V40 FEMORAL HEAD FDA Start: 12-02-2019 Lancets-Blood Glucose Strips Start: 09-21-2015 End: 10-25-2017 [id number], [id number], [id number], [id number] Start: 09-22-2015 End: 01-11-2025 Comment on above: Test blood sugar(s) 4 times daily. Dx: Type 2 DM - Uncontrolled E11.65 Insulin: Yes; Accucheck [facility] Medical: [phone] Test blood sugar(s) 4 times daily. Dx: Type 2 DM - Uncontrolled E11.65 Insulin: Yes Test blood sugar(s) 1 time daily as directed. Dx: Type 2 DM - Controlled E11.9 Insulin: No Lancets-Blood Glucose Strips Start: 09-21-2015 End: 10-25-2017 Lead Pacing Tendril Sts 58cm - [id number] - [id number] Start: 04-07-2024 Lead Pacing Tendril Sts 52cm - [id number] - [id number] Start: 04-07-2024 Pacer Assurity D r Rf [place] - [id number] - [id number] Start: 04-07-2024 Valve Aor Makenzie 3 Ultra 23mm - [id number] - [id number] Start: 04-06-2024 Comment on above: Description: [id number] Lancets-Blood Glucose Strips 1 EACH combo pack Start: 09-21-2015 End: 10-25-2017 Lancets-Blood Glucose Strips 1 EACH combo pack Start: 09-21-2015 End: 10-25-2017 Lancets-Blood Glucose Strips 1 EACH combo pack Start: 09-21-2015 End: 10-25-2017 Lancets-Blood Glucose Strips 1 EACH combo pack Start: 09-21-2015 End: 10-25-2017 Lancets-Blood Glucose Strips 1 EACH combo pack Start: 09-21-2015 End: 10-25-2017 Functional Status Date Assessment Result Facility 03-01-2015 Are you deaf, or do you have serious difficulty hearing No 03/01/2015 2:54 PM EDT Chely Burger LPN No [facility] 03-01-2015 Are you blind, or do you have serious difficulty seeing, even when wearing glasses No 03/01/2015 2:54 PM EDT Chely Burger LPN No [facility] 03-01-2015 Do you have serious difficulty walking or climbing stairs Yes 03/01/2015 2:54 PM EDT Chely Burger LPN Yes [facility] 03-01-2015 Do you have difficul ty dressing or bathing No 03/01/2015 2:54 PM EDT Chely Burger LPN No [facility] 03-01-2015 Because of a physica l, mental, or emotional condition, do you have difficulty doing errands alone such as visiting a physician's office or shopping No 03/01/2015 2:54 PM EDT Chely Burger LPN No [facility] Mental Status Date Assessment Result Facility 03-01-2015 Because of a physica l, mental, or emotional condition, do you have serious difficulty concentrating, remembering, or making decisions No 03/01/2015 2:54 PM EDT Chely Burger LPN No [facility] Clinical Notes 08-29-2015 to 02-15-2025 Telephone Encounter - Keisha Petersen - 02/15/2025 11:16 AM EDTTelephone Encounter - Keisha Petersen - 02/15/2025 11:16 AM EDTTelephone Encounter - Lois Ellis RN - 02/09/2025 5:11 PM EDT Note Date & Type Note Facility 02-15-2025 Telephone encount er Note Prescription Refill Information The patient has been identified by name and date of : Yes Caregiver verified no other encounters exist for this prescription request: Yes Caregiver confirmed with patient/requestor that no other refills are due, in the near future, with this provider at this time: Yes The last office visit in the department: 01-11-25 Does the patient have a future office visit with this provider/department: Yes Requested Prescriptions Pending Prescriptions Disp Refills glimepiride (AMARYL) 4 mg tablet 180 tablet 1 Sig: Take 1 tablet by mouth two times a day with meals. Keisha Petersen February 15, 2025 11:17 AM [facility] 02-15-2025 Miscellaneous Notes Formattin g of this note is different from the original. Prescription Refill Information The patient has been identified by name and date of : Yes Caregiver verified no other encounters exist for this prescription request: Yes Caregiver confirmed with patient/requestor that no other refills are due, in the near future, with this provider at this time: Yes The last office visit in the department: 01-11-25 Does the patient have a future office visit with this provider/department: Yes Requested Prescriptions Pending Prescriptions Disp Refills glimepiride (AMARYL) 4 mg tablet 180 tablet 1 Sig: Take 1 tablet by mouth two times a day with meals. Keisha Petersen February 15, 2025 11:17 AM documented in this encounter [facility] 02-09-2025 Telephone encount er Note Pt's last appt was 01/11 with Kamlesh and next appt 02/15 with Kamlesh. Pt calling in stating [facility] has been telling her that she needs to contact her provider's office to get refills on her Metformin. It appears in med history that pt was originally taking 2 tablets by mouth 2 times daily but then in September of this year, it was updated to take 1 tablet by mouth 2 times a day. Last script was sent to [facility] on 08/19/24 but would have originally only been a 4 month supply but since pt decreased down to 1 tab 2 times a day, the script lasted her longer. Pt also states she needs a refill on her Ozempic sent to [facility] in [place]. Due to constipation issues, pt is still only taking 0.25 mg weekly. So pt does not want to increase dosage. She would like this script to be sent to [facility] too but currently she [facility] at [facility] as she is out of medication. [facility] 02-09-2025 Miscellaneous Notes Formattin g of this note might be different from the original. Pt's last appt was 01/11 with Kamlesh and next appt 02/15 with Kamlesh. Pt calling in stating [facility] has been telling her that she needs to contact her provider's office to get refills on her Metformin. It appears in med history that pt was originally taking 2 tablets by mouth 2 times daily but then in September of this year, it was updated to take 1 tablet by mouth 2 times a day. Last script was sent to [facility] on 08/19/24 but would have originally only been a 4 month supply but since pt decreased down to 1 tab 2 times a day, the script lasted her longer. Pt also states she needs a refill on her Ozempic sent to [facility] in [place]. Due to constipation issues, pt is still only taking 0.25 mg weekly. So pt does not want to increase dosage. She would like this script to be sent to [facility] too but currently she needs at least a one month supply to [facility] as she is out of medication. documented in this encounter [facility] 02-08-2025 Procedure note [facility] 02-08-2025 Evaluation note Diagnosis Onset Date Resolution Intermittent complete heart block acute February 08, 2025 10:08am Paroxysmal atrial fibrillation acute February 08, 2025 10:08am Presence of cardiac pacemaker chronic February 08, 2025 10:08am Intermittent complete heart block acute February 08, 2025 10:09am Paroxysmal atrial fibrillation acute February 08, 2025 10:09am Essential (primary) hypertension chronic February 08, 2025 10:09am Nonrheumatic aortic (valve) stenosis chronic February 08, 2025 10:09am [facility] Work Phone: [phone] Telephone encounter Note* Telephone Encounter - Loretta Guerin RN - 01/11/2025 12:24 PM EDT Patient saw Kamlesh today 01/11/2025. Loretta Guerin RN [facility]06-16-2025 Miscellaneous Notes* Telephone Encounter - Loretta Guerin RN - 01/11/2025 12:24 PM EDT Patient saw Kamlesh today 01/11/2025. Loretta Guerin RN * Telephone Encounter - Loretta Guerin RN - 01/07/2025 12:05 PM EDT Patient calls and states that she has appointment with Kamlesh on 01/11/2025. Patient is asking about labs to be done prior to appointment? Please review and advise, Loretta Guerin RN [facility] NoteHNO ID: [id number] Author: KAMLESH ACOSTA APRN.[employer] Service: ? Author Type: Nurse Practitioner Type: Progress Notes Filed: 01/11/2025 12:32 Note Text: SUBJECTIVE Lito Gonzalez is a 74 year old female here today for a check up on her medical problems. Chief Complaint Patient presents with: Recheck: Oxempic was unable to tolerate the 0.5 mg as it did cause constipation but at 0.25 mg she is back to normal. HPI Lito Gonzalez is a 74 year old female. She is an established patient of Abby Mcclellan MD. Here today for follow up on her DM. Last visit we increased Ozempic. She had to decrease her Ozempic back down to the 0.25 mg dose because of issues with the 0.5 mg dose causing constipation. Not checking her sugars right now. Has labs ordered but has not completed them. Taking Aleve because of low back pain, thinks she is having issues with sciatic pain. Her medications were reviewed today and her list is now up to date. Medications Current Outpatient Medications Medication Sig semaglutide (OZEMPIC) 0.25 mg or 0.5 mg (2 mg/3 mL) pen Inject 0.5 mg subcutaneously one time a week. ELIQUIS 5 mg tab(s) Take 5 mg by mouth two times a day. metFORMIN (GLUCOPHAGE) 500 mg tablet Take 1 tablet by mouth two times a day with meals. glimepiride (AMARYL) 4 mg tablet Take 1 tablet by mouth two times a day with meals. metoprolol succinate ER (TOPROL XL) 25 mg 24 hr tablet Take 1 tablet by mouth once daily. (Dr. Hubbard) BRANNON-600 WITH VITAMIN D 600 MG-200 UNIT TAB Take one(1) tablet two(2) times daily. GLUCOSAMINE 1,000 MG ORAL TAB Take one(1) tablet daily. flaxseed oil (OMEGA 3 ORAL) Take 2 capsules by mouth two times a day. blood sugar diagnostic (BLOOD GLUCOSE TEST) test strip Test blood sugar(s) 1 time daily as directed. Dx: Type 2 DM - Controlled E11.9 Insulin: No traMADol (ULTRAM) 50 mg tablet Take 1 tablet by mouth three times a day as needed for pain for up to 7 days. Blood-Glucose Meter 1 device as directed. For daily fasting am glucose checks. Not on insulin empagliflozin (JARDIANCE) 10 mg tablet Take 1 tablet by mouth daily with breakfast. Walker misc Trio Rolling Walker Lancets lancets Test blood sugar(s) 4 times daily. Dx: Type 2 DM - Uncontrolled E11.65 Insulin: Yes No current facility-administered medications for this visit. ALLERGIES Allergen Reactions Lipitor [Atorvastat* Rash red itchy rash around neck--resolved after stopping med; hands froze with stiffness that started a week after taking a couple pills--resolving ACTIVE PROBLEM LIST Cardiac Pacemaker - 09/29/2024 Cognitive Impairment - 02/25/2024 Paf (Paroxysmal Atrial Fibrillation) ([facility]) - 12/07/2021 Comment: [facility] Nonrheumatic Aortic Valve Stenosis - 12/07/2021 Comment: [facility], echo 2021 [facility] Status Post Right Hip Replacement - 12/23/2019 Difficulty in Walking Involving Lower Leg Joint Acid Indigestion - 03/26/2016 Polycythemia, Secondary - 03/28/2011 Comment: This was abnormal, seen by , testing was normal. Generalized Osteoarthrosis, Involving Multiple Sites - 05/10/2008 Diabetes Mellitus ([facility]) - 10/20/2007 Hypertension Goal Bp (Blood Pressure) < 140/90 - 10/12/2005 Hyperlipidemia Associated With Type 2 Diabetes Mellitus ([facility]) - 10/12/2005 Class 3 Severe Obesity Due to Excess Calories With Body Mass Index (Bmi) of 45.0 to 49.9 in Adult ([facility]) Social History Tobacco Use Smoking status: Never Smokeless tobacco: Never Substance Use Topics Alcohol use: No Drug use: No Review of Systems Respiratory: Negative. Cardiovascular: Negative. Musculoskeletal: Positive for back pain. OBJECTIVE BP 120/78 Pulse 108 Wt 243 lb 6.2 oz (110.4kg) SpO2 97% Physical Exam Vitals and nursing note reviewed. Constitutional: General: She is awake. She is not in acute distress. Appearance: Normal appearance. She is well-developed and well-groomed. She is not ill-appearing, toxic-appearing or diaphoretic. HENT: Head: Normocephalic. Right Ear: External ear normal. Left Ear: External ear normal. Nose: Nose normal. Eyes: General: Vision grossly intact. Conjunctiva/sclera: Conjunctivae normal. Pupils: Pupils are equal, round, and reactive to light. Neck: Vascular: No JVD. Trachea: Trachea normal. Cardiovascular: Rate and Rhythm: Normal rate and regular rhythm. Pulses: Normal pulses. Heart sounds: Normal heart sounds. No murmur heard. Pulmonary: Effort: Pulmonary effort is normal. No accessory muscle usage, prolonged expiration or respiratory distress. Breath sounds: Normal breath sounds. Musculoskeletal: Cervical back: Neck supple. Skin: General: Skin is warm and dry. Capillary Refill: Capillary refill takes less than 2 seconds. Neurological: General: No focal deficit present. Mental Status: She is alert and oriented to person, place, and time. Mental status is at baseline. Psychiatric: Attention and Perception: (more content not included)...[facility]06-16-2025 History of Present illness Narrative* Kamlesh Acosta APRN.W[employer] MAN - 01/11/2025 11:17 AM EDT SUBJECTIVE Lito Gonzalez is a 74 year old female here today for a check up on her medical problems. Chief Complaint Patient presents with: Recheck: Oxempic was unable to tolerate the 0.5 mg as it did cause constipation but at 0.25 mg she is back to normal. HPI Lito Gonzalez is a 74 year old female. She is an established patient of Abby Mcclellan MD. Here today for follow up on her DM. Last visit we increased Ozempic. She had to decrease her Ozempic back down to the 0.25 mg dose because of issues with the 0.5 mg dose causing constipation. Not checking hersugars right now. Has labs ordered but has not completed them. Taking Aleve because of low back pain, thinks she is having issues with sciatic pain. Her medications were reviewed today and her list is now up to date. Medications Current Outpatient Medications Medication Sig semaglutide (OZEMPIC) 0.25 mg or 0.5 mg (2 mg/3 mL) pen Inject 0.5 mg subcutaneously one time a week. ELIQUIS 5 mg tab(s) Take 5 mg by mouth two times a day. metFORMIN (GLUCOPHAGE) 500 mg tablet Take 1 tablet by mouth two times a day with meals. glimepiride (AMARYL) 4 mg tablet Take 1 tablet by mouth two times a day with meals. metoprolol succinate ER (TOPROL XL) 25 mg 24 hr tablet Take 1 tablet by mouth once daily. (Dr. Hubbard) BRANNON-600 WITH VITAMIN D 600 MG-200 UNIT TAB Take one(1) tablet two(2) times daily. GLUCOSAMINE 1,000 MG ORAL TAB Take one(1) tablet daily. flaxseed oil (OMEGA 3 ORAL) Take 2 capsules by mouth two times a day. blood sugar diagnostic (BLOOD GLUCOSE TEST) test strip Test blood sugar(s) 1 time daily as directed. Dx: Type 2 DM - Controlled E11.9 Insulin: No traMADol (ULTRAM) 50 mg tablet Take 1 tablet by mouth three times a day as needed for pain for up to 7 days. Blood-Glucose Meter 1 device as directed. For daily fasting am glucose checks. Not on insulin empagliflozin (JARDIANCE) 10 mg tablet Take 1 tablet by mouth daily with breakfast. Walker misc Trio Rolling Walker Lancets lancets Test blood sugar(s) 4 times daily. Dx: Type 2 DM - Uncontrolled E11.65 Insulin: Yes No current facility-administered medications for this visit. ALLERGIES Allergen Reactions Lipitor [Atorvastat* Rash red itchy rash around neck--resolved after stopping med; hands froze with stiffness that started a week after taking a couple pills--resolving ACTIVE PROBLEM LIST Cardiac Pacemaker - 09/29/2024 Cognitive Impairment - 02/25/2024 Paf (Paroxysmal Atrial Fibrillation) ([facility]) - 12/07/2021 Comment: [facility] Nonrheumatic Aortic Valve Stenosis - 12/07/2021 Comment: [facility], echo 2021 [facility] Status Post Right Hip Replacement - 12/23/2019 Difficulty in Walking Involving Lower Leg Joint Acid Indigestion - 03/26/2016 Polycythemia, Secondary - 03/28/2011 Comment: This was abnormal, seen by , testing was normal. Generalized Osteoarthrosis, Involving Multiple Sites - 05/10/2008 Diabetes Mellitus ([facility]) - 10/20/2007 Hypertension Goal Bp (Blood Pressure) < 140/90 - 10/12/2005 Hyperlipidemia Associated With Type 2 Diabetes Mellitus ([facility]) - 10/12/2005 Class 3 Severe Obesity Due to Excess Calories With Body Mass Index (Bmi) of 45.0 to 49.9 in Adult ([facility]) Social History Tobacco Use Smoking status: Never Smokeless tobacco: Never Substance Use Topics Alcohol use: No Drug use: No Review of Systems Respiratory: Negative. Cardiovascular: Negative. Musculoskeletal: Positive for back pain. OBJECTIVE BP 120/78 Pulse 108 Wt 243 lb 6.2 oz (110.4kg) SpO2 97% Physical Exam Vitals and nursing note reviewed. Constitutional: General: She is awake. She is not in acute distress. Appearance: Normal appearance. She is well-developed and well-groomed. She is not ill-appearing, toxic-appearing or diaphoretic. HENT: Head: Normocephalic. Right Ear: External ear normal. Left Ear: External ear normal. Nose: Nose normal. Eyes: General: Vision grossly intact. Conjunctiva/sclera: Conjunctivae normal. Pupils: Pupils are equal, round, and reactive to light. Neck: Vascular: No JVD. Trachea: Trachea normal. Cardiovascular: Rate and Rhythm: Normal rate and regular rhythm. Pulses: Normal pulses. Heart sounds: Normal heart sounds. No murmur heard. Pulmonary: Effort: Pulmonary effort is normal. No accessory muscle usage, prolonged expiration or respiratory distress. Breath sounds: Normal breath sounds. Musculoskeletal: Cervical back: Neck supple. Skin: General: Skin is warm and dry. Capillary Refill: Capillary refill takes less than 2 seconds. Neurological: General: No focal deficit present. Mental Status: She is alert and oriented to person, place, and time. Mental status is at baseline. Psychiatric: Attention and Perception: Attention and perception normal. Mood and Affect: Mood and affect normal. Speech: Speech normal. Behavior: Behavior normal. Behavior is cooperative. Thought Content: Thought content normal. Cognition and Memory: Cognition and memory normal. Judgment: Judgment normal. ASSESSMENT/PLAN: 1. Type 2 diabetes mellitus with hyperglycemia, without long-term current use of insulin (HCC) - ICD9: 250.00, 790.29, ICD10: E11.65 (primary diagnosis) - Barriers to control: diet adherence and lack of exercise - Continue current medications - Start empagliflozin (Jardiance) - Counseled on healthy diet and regular exercise - Discussed need for and benefit of weight loss. BMI 47.53 kg/(m^2) - Not ready for pharmD consult yet - BLOOD SUGAR DIAGNOSTIC STRIPS - BLOOD-GLUCOSE METER - EMPAGLIFLOZIN 10 MG TABLET 2. Nonrheumatic aortic valve stenosis - ICD9: 424.1, ICD10: I35.0 - EMPAGLIFLOZIN 10 MG TABLET 3. Cardiac pacemaker - ICD9: V45.01, ICD10: Z95.0 - EMPAGLIFLOZIN 10 MG TABLET 4. Hyperlipidemia associated with type 2 diabetes mellitus (HCC) - ICD9: 250.80, 272.4, ICD10: E11.69, E78.5 - EMPAGLIFLOZIN 10 MG TABLET 5. Hypertension goal BP (blood pressure) < 140/90 - ICD9: 401.9, ICD10: I10 - Controlled - EMPAGLIFLOZIN 10 MG TABLET 6. Sciatic leg pain - ICD9: 724.3, ICD10: M54.30 Sciatica - Ice for localized tenderness - Warm moist heat for 20 min three times a day - NO NSAIDS - Patient given instructions use of medications as ordered - Follow up if symptoms persist or worsen - TRAMADOL 50 MG TABLET Discussed with patient that although Ultram/tramadol is not a narcotic it does carry the risk of addiction if taken over a long period of time. [place] report reviewed and prescription is reasonable. Discussed that in addition this medicine can lower the seizure threshold and if patient had any history of seizures or seizure like activity which was not shared with provider today, they should not take this medicine. While taking ultram/tramadol patient was instructed to not drive or operate or be in vicinity of heavy machinery. Portions of this note have been entered by ancillary staff. I have reviewed and when necessary edited, so that they are an adequate record of my encounter with this patient Please note that parts of this document were created using voice recognition software and therefore may contain grammatical errors. Patient verbalizes understanding of instructions from today's visit and in agreement with treatmentplan. Questions answered. Agrees to call the office if questions, concerns of issues with acute symptoms not improving or if they worsen. See diagnoses and orders for additional plan(s). Allergies and medications were reviewed, list was updated, and refills given if needed. Past medical, surgical, social, and family history reviewed and updated as appropriate. Encouraged proper diet & exercise as well as compliance with taking medications. Age- appropriate health preventative measures were discussed. Return in about 5 weeks (around 02/15/2025) for recheck on new medication.. Kamlesh Acosta APRN-DANILO [facility] Tele[facility] encounter Note * Telephone Encounter - Loretta Guerin RN - 01/07/2025 12:05 PM EDT Patient calls and states that she has appointment with Kamlesh on 01/11/2025. Patient is asking about labs to be done prior to appointment? Please review and advise, Loretta Guerin RN [facility]06-12-[facility] History of Present illness Narrative* Nu Bruce [facility] - 01/07/2025 11:47 AM EDT Primary Care Pharmacy Panel Management This patient has been identified through Specialty Integration/[employer] Diabetes Registry Review by the primary care pharmacy team. After review, determined that the patient is not a candidate for pharmacy referral at this time dueto follows closely with PCP. Next PCP appt scheduled for next week. Will send not to provider suggesting to place PharmD referral if repeat A1c returns elevated. Nu Bruce RPh documented in this encounterE[facility]06-[facility]-2025 NoteHNO ID: [id number] Author: NU BURCE RPh Service: ? Author Type: Pharmacist Type: Progress Notes Filed: 01/07/2025 11:49 Note Text: Primary Care Pharmacy Panel Management This patient has been identified through Specialty Integration/[employer] Diabetes Registry Review by the primary care pharmacy team. After review, determined that the patient is not a candidate for pharmacy referral at this time due to follows closely with PCP. Next PCP appt scheduled for next week. Will send not to provider suggesting to place PharmD referral if repeat A1c returns elevated. [facility] [place] NotePatient Outreach (PHMEWO) LITO GONZALEZ ([id number]) 1950 F Date Time Provider Department 01/07/25 NU BRUCE PHWHien During your visit today, we recorded the following information about you: Nu Bruce RPh 01/07/2025 11:49 AM Signed Primary Care Pharmacy Panel Management This patient has been identified through Specialty Integration/[employer] Diabetes Registry Review by the primary care pharmacy team. After review, determined that the patient is not a candidate for pharmacy referral at this time due to follows closely with PCP. Next PCP appt scheduled for next week. Will send not to provider suggesting to place PharmD referral if repeat A1c returns elevated. Nu Bruce [facility] Allergies As of Date: 01/07/2025 Noted Allergy Reaction LIPITOR (ATORVASTATIN) 06/27/2016 2 - Rash Comments: red itchy rash around neck--resolved after stopping med; hands froze with stiffness that started a week after taking a couple pills--resolving Date Reviewed: 11/10/2024 Reviewed by: Kamlesh Acosta APRN.WALL MAN - Fully Assessed Prescriptions as of 01/07/2025 - semaglutide (OZEMPIC) 0.25 mg or 0.5 mg (2 mg/3 mL) pen Inject 0.5 mg subcutaneously one time a week. - ELIQUIS 5 mg tab(s) Take 5 mg by mouth two times a day. - metFORMIN (GLUCOPHAGE) 500 mg tablet Take 1 tablet by mouth two times a day with meals. - glimepiride (AMARYL) 4 mg tablet Take 1 tablet by mouth two times a day with meals. - blood sugar diagnostic (BLOOD GLUCOSE TEST) test strip Test blood sugar(s) 1 time daily as directed. Dx: Type 2 DM - Controlled E11.9 Insulin: No - Blood-Glucose Meter (TRUE METRIX GLUCOSE METER) 1 Each as directed. - metoprolol succinate ER (TOPROL XL) 25 mg 24 hr tablet Take 1 tablet by mouth once daily. (Dr. Hubbard) - Walker misc Trio Rolling Walker - Lancets lancets Test blood sugar(s) 4 times daily. Dx: Type 2 DM - Uncontrolled E11.65 Insulin: Yes - BRANNON-600 WITH VITAMIN D 600 MG-200 UNIT TAB Take one(1) tablet two(2) times daily. - GLUCOSAMINE 1,000 MG ORAL TAB Take one(1) tablet daily. Problem List As Of Date 01/07/2025 Noted Resolved Class 3 severe obesity due to excess calories w* Tachycardia, unspecified [R00.0] 04/03/2005 10/25/2023 Hypertension goal BP (blood pressure) < 140/90 *10/12/2005 Hyperlipidemia associated with type 2 diabetes *10/12/2005 Pain in joint, lower leg [M25.569] 04/21/2007 12/15/2010 Nonspecific abnormal results of liver function *10/20/2007 03/04/2012 Diabetes mellitus (HCC) [E11.9] 10/20/2007 Generalized OA [M15.9] 05/10/2008 10/25/2023 Polycythemia, secondary [D75.1] 03/28/2011 Colon cancer screening [Z12.11] 01/05/2016 01/05/2016 Acid indigestion [K30] 03/26/2016 Difficulty in walking involving lower leg joint* Generalized osteoarthrosis, involving multiple *05/10/2008 Status post right hip replacement [Z96.641] 12/23/2019 PAF (paroxysmal atrial fibrillation) (HCC) [I48*12/07/2021 Nonrheumatic aortic valve stenosis [I35.0] 12/07/2021 Cognitive impairment [R41.89] 02/25/2024 Cardiac pacemaker [Z95.0] 09/29/2024 Encounter Status:Closed by NU BRUCE on 01/07/25[facility] 01-01-[facility]25 NoteHNO ID: [id number] Author: DESHAWN WEAVER MA Service: ? Author Type: Figure Clerk Type: Progress Notes Filed: 01/01/2025 15:51 Note Text: POPULATION HEALTH NAVIGATION OUTREACH Action/FYI Gaps due: AWV A1C [place] in [place] but this is confirmed to be done outside of [facility]. No HCCs or med adherence. Reason for Outreach Care Gap/HCC or Scheduling Wellness Visits Care Gaps due: Medicare Annual Wellness Visit HBA1C Patient Contacted: Unable or unnecessary to reach patient: Left message Updated appointment notes Navigation Signature: Deshawn Weaver MA January 01, 2025 3:49 [facility]06-06-2025 History of Present illness Narrative* Deshawn Weaver MA - 01/01/2025 3:49 PM EDT POPULATION HEALTH NAVIGATION OUTREACH Action/FYI Gaps due: AWV A1C [place] in [place] but this is confirmed to be done outside of [facility]. No HCCs or med adherence. Reason for Outreach Care Gap/HCC or Scheduling Wellness Visits Care Gaps due: Medicare Annual Wellness Visit HBA1C Patient Contacted: Unable or unnecessary to reach patient: Left message Updated appointment notes Navigation Signature: Deshawn Weaver MA January 01, 2025 3:49 PM documented in this encounterE[facility]06-[facility] NotePatient Outreach (NETNAV) LITO GONZALEZ ([id number]) 1950 F Date Time Provider Department 01/01/25 DESHAWN WEAVER During your visit today, we recorded the following information about you: Deshawn Weaver MA 01/01/2025 3:51 PM Signed POPULATION HEALTH NAVIGATION OUTREACH Action/FYI Gaps due: AWV A1C [place] in may but this is confirmed to be done outside of [facility]. No HCCs or med adherence. Reason for Outreach Care Gap/HCC or Scheduling Wellness Visits Care Gaps due: Medicare Annual Wellness Visit HBA1C Patient Contacted: Unable or unnecessary to reach patient: Left message Updated appointment notes Navigation Signature: Deshawn Weaver MA January 01, 2025 3:49 PM Allergies As of Date: 01/01/2025 Noted Allergy Reaction LIPITOR (ATORVASTATIN) 06/27/2016 2 - Rash Comments: red itchy rash around neck--resolved after stopping med; hands froze with stiffness that started a week after taking a couple pills--resolving Date Reviewed: 11/10/2024 Reviewed by: Kamlesh Acosta APRN.WALL MAN - Fully Assessed Reason for Visit: Population Health Navigation Outreach [3910] Cmt: Clay gordon Prescriptions as of 01/01/2025 - semaglutide (OZEMPIC) 0.25 mg or 0.5 mg (2 mg/3 mL) pen Inject 0.5 mg subcutaneously one time a week. - ELIQUIS 5 mg tab(s) Take 5 mg by mouth two times a day. - metFORMIN (GLUCOPHAGE) 500 mg tablet Take 1 tablet by mouth two times a day with meals. - glimepiride (AMARYL) 4 mg tablet Take 1 tablet by mouth two times a day with meals. - blood sugar diagnostic (BLOOD GLUCOSE TEST) test strip Test blood sugar(s) 1 time daily as directed. Dx: Type 2 DM - Controlled E11.9 Insulin: No - Blood-Glucose Meter (TRUE METRIX GLUCOSE METER) 1 Each as directed. - metoprolol succinate ER (TOPROL XL) 25 mg 24 hr tablet Take 1 tablet by mouth once daily. (Dr. Hubbard) - Walker misc Trio Rolling Walker - Lancets lancets Test blood sugar(s) 4 times daily. Dx: Type 2 DM - Uncontrolled E11.65 Insulin: Yes - BRANNON-600 WITH VITAMIN D 600 MG-200 UNIT TAB Take one(1) tablet two(2) times daily. - GLUCOSAMINE 1,000 MG ORAL TAB Take one(1) tablet daily. Problem List As Of Date 01/01/2025 Noted Resolved Class 3 severe obesity due to excess calories w* Tachycardia, unspecified [R00.0] 04/03/2005 10/25/2023 Hypertension goal BP (blood pressure) < 140/90 *10/12/2005 Hyperlipidemia associated with type 2 diabetes *10/12/2005 Pain in joint, lower leg [M25.569] 04/21/2007 12/15/2010 Nonspecific abnormal results of liver function *10/20/2007 03/04/2012 Diabetes mellitus (HCC) [E11.9] 10/20/2007 Generalized OA [M15.9] 05/10/2008 10/25/2023 Polycythemia, secondary [D75.1] 03/28/2011 Colon cancer screening [Z12.11] 01/05/2016 01/05/2016 Acid indigestion [K30] 03/26/2016 Difficulty in walking involving lower leg joint* Generalized osteoarthrosis, involving multiple *05/10/2008 Status post right hip replacement [Z96.641] 12/23/2019 PAF (paroxysmal atrial fibrillation) (HCC) [I48*12/07/2021 Nonrheumatic aortic valve stenosis [I35.0] 12/07/2021 Cognitive impairment [R41.89] 02/25/2024 Cardiac pacemaker [Z95.0] 09/29/2024 Encounter Status:Closed by DESHAWN WEAVER on 01/01/25[facility] 11-10-2024 NoteHNO ID: [id number] Author: KAMLESH ACOSTA APRN.[facility] Service: ? Author Type: Nurse Practitioner Type: Progress Notes Filed: 11/10/2024 13:23 Note Text: SUBJECTIVE Lito Gonzalez is a 74 year old female here today for a check up on her medical problems. Chief Complaint Patient presents with: Recheck HPI Lito Gonzalez is a 74 year old female. She is an established patient of Abby Mcclellan MD. Here today for follow up. Last visit we started her on Ozempic to improve DM control. She reports few side effects, really the only issue with the medication is she is having some occasional constipation. Treating with Herb lax daily and prunes for constipation. Working on diet. She has had no symptoms of hypoglycemia. She has noticed some weight loss. Overall feeling well. Trying to watch cholesterol intake. Her medications were reviewed today and her list is now up to date. She is compliant on taking her medications: Yes She is tolerating her medication(s) without side effects: Yes She is following an appropriate diet for her medical problems: Yes She is getting some exercise in? Yes- has stationarity bike but has back pain and has not used in a few weeks. She has visited another health care provider since being seen last? :N/A She has had a visit to the emergency department or hospital since being seen last? Yes Medications Current Outpatient Medications Medication Sig ELIQUIS 5 mg tab(s) Take 5 mg by mouth two times a day. metFORMIN (GLUCOPHAGE) 500 mg tablet Take 1 tablet by mouth two times a day with meals. glimepiride (AMARYL) 4 mg tablet Take 1 tablet by mouth two times a day with meals. metoprolol succinate ER (TOPROL XL) 25 mg 24 hr tablet Take 1 tablet by mouth once daily. (Dr. Hubbard) BRANNON-600 WITH VITAMIN D 600 MG-200 UNIT TAB Take one(1) tablet two(2) times daily. GLUCOSAMINE 1,000 MG ORAL TAB Take one(1) tablet daily. semaglutide (OZEMPIC) 0.25 mg or 0.5 mg (2 mg/3 mL) pen Inject 0.5 mg subcutaneously one time a week. blood sugar diagnostic (BLOOD GLUCOSE TEST) test strip Test blood sugar(s) 1 time daily as directed. Dx: Type 2 DM - Controlled E11.9 Insulin: No Blood-Glucose Meter (TRUE METRIX GLUCOSE METER) 1 Each as directed. Walker misc Trio Rolling Walker Lancets lancets Test blood sugar(s) 4 times daily. Dx: Type 2 DM - Uncontrolled E11.65 Insulin: Yes No current facility-administered medications for this visit. ALLERGIES Allergen Reactions Lipitor [Atorvastat* Rash red itchy rash around neck--resolved after stopping med; hands froze with stiffness that started a week after taking a couple pills--resolving ACTIVE PROBLEM LIST Cardiac Pacemaker - 09/29/2024 Cognitive Impairment - 02/25/2024 Paf (Paroxysmal Atrial Fibrillation) ([facility]) - 12/07/2021 Comment: [facility] Nonrheumatic Aortic Valve Stenosis - 12/07/2021 Comment: [facility], echo [facility] Status Post Right Hip Replacement - 12/23/2019 Difficulty in Walking Involving Lower Leg Joint Acid Indigestion - 03/26/2016 Polycythemia, Secondary - 03/28/2011 Comment: This was abnormal, seen by , testing was normal. Generalized Osteoarthrosis, Involving Multiple Sites - 05/10/2008 Diabetes Mellitus ([facility]) - 10/20/2007 Hypertension Goal Bp (Blood Pressure) < 140/90 - 10/12/2005 Hyperlipidemia Associated With Type 2 Diabetes Mellitus ([facility]) - 10/12/2005 Class 3 Severe Obesity Due to Excess Calories With Body Mass Index (Bmi) of 45.0 to 49.9 in Adult ([facility]) Social History Tobacco Use Smoking status: Never Smokeless tobacco: Never Substance Use Topics Alcohol use: No Drug use: No Review of Systems Respiratory: Negative. Cardiovascular: Negative. Gastrointestinal: Positive for constipation. Negative for abdominal pain and diarrhea. OBJECTIVE BP 128/74 Pulse 84 Wt 239 lb 13.8 oz (108.8kg) SpO2 98% Physical Exam Vitals and nursing note reviewed. Constitutional: General: She is awake. She is not in acute distress. Appearance: Normal appearance. She is well-developed and well-groomed. She is not ill-appearing, toxic-appearing or diaphoretic. HENT: Head: Normocephalic. Right Ear: External ear normal. Left Ear: External ear normal. Nose: Nose normal. Eyes: General: Vision grossly intact. Conjunctiva/sclera: Conjunctivae normal. Pupils: Pupils are equal, round, and reactive to light. Neck: Vascular: No JVD. Trachea: Trachea normal. Cardiovascular: Rate and Rhythm: Normal rate and regular rhythm. Pulses: Normal pulses. Heart sounds: Normal heart sounds. No murmur heard. Pulmonary: Effort: Pulmonary effort is normal. No accessory muscle usage, prolonged expiration or respiratory distress. Breath sounds: Normal breath sounds. Musculoskeletal: Cervical back: Neck supple. Skin: General: Skin is warm and dry. Capillary Refill: Capillary refill takes less than 2 seconds. Neurological: General: No focal deficit p (more content not included)...[facility]04-15-2025 History of Present illness Narrative* Kamlesh Acosta APRN.[employer] - 11/10/2024 11:30 AM EDT SUBJECTIVE Lito Gonzalez is a 74 year old female here today for a check up on her medical problems. Chief Complaint Patient presents with: Recheck HPI Lito Gonzalez is a 74 year old female. She is an established patient of Abby Mcclellan MD. Here today for follow up. Last visit we started her on Ozempic to improve DM control. She reports few side effects, really the only issue with the medication is she is having some occasional constipation. Treating with Herb lax daily and prunes for constipation. Working on diet. She has had no symptoms of hypoglycemia. She has noticed some weight loss. Overall feeling well. Trying to watch cholesterol intake. Her medications were reviewed today and her list is now up to date. She is compliant on taking her medications: Yes She is tolerating her medication(s) without side effects: Yes She is following an appropriate diet for her medical problems: Yes She is getting some exercise in? Yes- has stationarity bike but has back pain and has not used in afew weeks. She has visited another health care provider since being seen last? :N/A She has had a visit to the emergency department or hospital since being seen last? Yes Medications Current Outpatient Medications Medication Sig ELIQUIS 5 mg tab(s) Take 5 mg by mouth two times a day. metFORMIN (GLUCOPHAGE) 500 mg tablet Take 1 tablet by mouth two times a day with meals. glimepiride (AMARYL) 4 mg tablet Take 1 tablet by mouth two times a day with meals. metoprolol succinate ER (TOPROL XL) 25 mg 24 hr tablet Take 1 tablet by mouth once daily. (Dr. Hubbard) BRANNON-600 WITH VITAMIN D 600 MG-200 UNIT TAB Take one(1) tablet two(2) times daily. GLUCOSAMINE 1,000 MG ORAL TAB Take one(1) tablet daily. semaglutide (OZEMPIC) 0.25 mg or 0.5 mg (2 mg/3 mL) pen Inject 0.5 mg subcutaneously one time a week. blood sugar diagnostic (BLOOD GLUCOSE TEST) test strip Test blood sugar(s) 1 time daily as directed. Dx: Type 2 DM - Controlled E11.9 Insulin: No Blood-Glucose Meter (TRUE METRIX GLUCOSE METER) 1 Each as directed. Walker misc Trio Rolling Walker Lancets lancets Test blood sugar(s) 4 times daily. Dx: Type 2 DM - Uncontrolled E11.65 Insulin: Yes No current facility-administered medications for this visit. ALLERGIES Allergen Reactions Lipitor [Atorvastat* Rash red itchy rash around neck--resolved after stopping med; hands froze with stiffness that started a week after taking a couple pills--resolving ACTIVE PROBLEM LIST Cardiac Pacemaker - 09/29/2024 Cognitive Impairment - 02/25/2024 Paf (Paroxysmal Atrial Fibrillation) ([facility]) - 12/07/2021 Comment: [facility] Nonrheumatic Aortic Valve Stenosis - 12/07/2021 Comment: [facility], echo 2021 [facility] Status Post Right Hip Replacement - 12/23/2019 Difficulty in Walking Involving Lower Leg Joint Acid Indigestion - 03/26/2016 Polycythemia, Secondary - 03/28/2011 Comment: This was abnormal, seen by , testing was normal. Generalized Osteoarthrosis, Involving Multiple Sites - 05/10/2008 Diabetes Mellitus (Hcc) - 10/20/2007 Hypertension Goal Bp (Blood Pressure) < 140/90 - 10/12/2005 Hyperlipidemia Associated With Type 2 Diabetes Mellitus (Hcc) - 10/12/2005 Class 3 Severe Obesity Due to Excess Calories With Body Mass Index (Bmi) of 45.0 to 49.9 in Adult ([facility]) Social History Tobacco Use Smoking status: Never Smokeless tobacco: Never Substance Use Topics Alcohol use: No Drug use: No Review of Systems Respiratory: Negative. Cardiovascular: Negative. Gastrointestinal: Positive for constipation. Negative for abdominal pain and diarrhea. OBJECTIVE BP 128/74 Pulse 84 Wt 239 lb 13.8 oz (108.8kg) SpO2 98% Physical Exam Vitals and nursing note reviewed. Constitutional: General: She is awake. She is not in acute distress. Appearance: Normal appearance. She is well-developed and well-groomed. She is not ill-appearing, toxic-appearing or diaphoretic. HENT: Head: Normocephalic. Right Ear: External ear normal. Left Ear: External ear normal. Nose: Nose normal. Eyes: General: Vision grossly intact. Conjunctiva/sclera: Conjunctivae normal. Pupils: Pupils are equal, round, and reactive to light. Neck: Vascular: No JVD. Trachea: Trachea normal. Cardiovascular: Rate and Rhythm: Normal rate and regular rhythm. Pulses: Normal pulses. Heart sounds: Normal heart sounds. No murmur heard. Pulmonary: Effort: Pulmonary effort is normal. No accessory muscle usage, prolonged expiration or respiratory distress. Breath sounds: Normal breath sounds. Musculoskeletal: Cervical back: Neck supple. Skin: General: Skin is warm and dry. Capillary Refill: Capillary refill takes less than 2 seconds. Neurological: General: No focal deficit present. Mental Status: She is alert and oriented to person, place, and time. Mental status is at baseline. Psychiatric: Attention and Perception: Attention and perception normal. Mood and Affect: Mood and affect normal. Speech: Speech normal. Behavior: Behavior normal. Behavior is cooperative. Thought Content: Thought content normal. Cognition and Memory: Cognition and memory normal. Judgment: Judgment normal. ASSESSMENT/PLAN: 1. Type 2 diabetes mellitus with hyperglycemia, without long-term current use of insulin ([facility]) - ICD9: 250.00, 790.29, ICD10: E11.65 (primary diagnosis) - Improving control - Continue current medications - Increase semaglutide (Ozempic) - Counseled on healthy diet and regular exercise - Discussed need for and benefit of weight loss. BMI 46.84 kg/(m^2) - SEMAGLUTIDE 0.25 MG OR 0.5 MG (2 MG/3 ML) SUBCUTANEOUS PEN INJECTOR 2. Class 3 severe obesity due to excess calories with body mass index (BMI) of 45.0 to 49.9 in adult, unspecified whether serious comorbidity present (HCC) - ICD9: 278.01, V85.42, ICD10: E66.813, Z68.42, E66.01 Weight decreasing and overall stable. - Behavioral intervention, - Pharmacological intervention, - Continue current medications, and - Increase Semaglutide (Ozempic) - SEMAGLUTIDE 0.25 MG OR 0.5 MG (2 MG/3 ML) SUBCUTANEOUS PEN INJECTOR 3. Hyperlipidemia associated with type 2 diabetes mellitus (HCC) - ICD9: 250.80, 272.4, ICD10: E11.69, E78.5 See above for DM. Hyperlipidemia stable. - Continue current medications - Counseled on healthy diet and regular exercise - Discussed need for and benefit of weight loss. BMI 46.84 kg/(m^2) - Barriers to control: diet adherence and lack of exercise - Counseled on healthy diet and regular exercise - SEMAGLUTIDE 0.25 MG OR 0.5 MG (2 MG/3 ML) SUBCUTANEOUS PEN INJECTOR Medical Decision Making: Problems: Moderate: 2+ stable chronic illnesses Risk: Moderate: Drug management Medical Decision Making Level: 4 - Moderate Portions of this note have been entered by ancillary staff. I have reviewed and when necessary edited, so that they are an adequate record of my encounter with this patient Please note that parts of this document were created using voice recognition software and therefore may contain grammatical errors. Patient verbalizes understanding of instructions from today's visit and in agreement with treatmentplan. Questions answered. Agrees to call the office if questions, concerns of issues with acute symptoms not improving or if they worsen. See diagnoses and orders for additional plan(s). Allergies and medications were reviewed, list was updated, and refills given if needed. Past medical, surgical, social, and family history reviewed and updated as appropriate. Encouraged proper diet & exercise as well as compliance with taking medications. Age- appropriate health preventative measures were discussed. Return in about 8 weeks (around 01/05/2025) for DM follow up. FRANCISCO Brown documented in this [facility]25 NoteHNO ID: [id number] Author: KAMLESH ACOSTA APRN.CNP Service: ? Author Type: Nurse Practitioner Type: Progress Notes Filed: 09/29/2024 13:05 Note Text: SUBJECTIVE Lito Gonzalez is a 74 year old female here today for a check up on her medical problems. Chief Complaint Patient presents with: Recheck: swelling in left arm compared to right No injury that she is aware and no pain HPI Lito Gonzalez is a 74 year old female. She is an established patient of Abby Mcclellan MD. Here today for routine follow up. S/p TAVR on 04/06/2024. Had her heart surgery, had a pacemaker placed the next day. Notes some mild edema in the left upper extremity, no pain, redness or tenderness. This has been slight since she is post pacemaker placement. Seeing [facility] for cardiology follow up. She had labs done 09/19. Lito Gonzalez is a 74 year old female here today for a check up on her diabetes. She is compliant on taking her medications :Yes but she is having some diarrhea with her metformin. She has been checking fingerstick blood sugars: Yes Denies difficulty with this skill. Any low blood sugar reactions? No Denies increased urinating, eating, and drinking. Most recent HbA1c tests were: Lab Results Component Value Date HBA1C 8.9 (H) 09/19/2024 HBA1C 7.9 (H) 02/19/2024 HBA1C 7.7 (H) 10/18/2023 Her medications were reviewed today and her list is now up to date. Medications Current Outpatient Medications Medication Sig ELIQUIS 5 mg tab(s) Take 5 mg by mouth two times a day. glimepiride (AMARYL) 4 mg tablet Take 1 tablet by mouth two times a day with meals. metoprolol succinate ER (TOPROL XL) 25 mg 24 hr tablet Take 1 tablet by mouth once daily. (Dr. Hubbard) BRANNON-600 WITH VITAMIN D 600 MG-200 UNIT TAB Take one(1) tablet two(2) times daily. GLUCOSAMINE 1,000 MG ORAL TAB Take one(1) tablet daily. metFORMIN (GLUCOPHAGE) 500 mg tablet Take 1 tablet by mouth two times a day with meals. semaglutide (OZEMPIC) 0.25 mg or 0.5 mg (2 mg/3 mL) pen Inject 0.25 mg subcutaneously one time a week. blood sugar diagnostic (BLOOD GLUCOSE TEST) test strip Test blood sugar(s) 1 time daily as directed. Dx: Type 2 DM - Controlled E11.9 Insulin: No Blood-Glucose Meter (TRUE METRIX GLUCOSE METER) 1 Each as directed. Walker misc Trio Rolling Walker Lancets lancets Test blood sugar(s) 4 times daily. Dx: Type 2 DM - Uncontrolled E11.65 Insulin: Yes No current facility-administered medications for this visit. ALLERGIES Allergen Reactions Lipitor [Atorvastat* Rash red itchy rash around neck--resolved after stopping med; hands froze with stiffness that started a week after taking a couple pills--resolving ACTIVE PROBLEM LIST Cardiac Pacemaker - 09/29/2024 Cognitive Impairment - 02/25/2024 Paf (Paroxysmal Atrial Fibrillation) ([facility]) - 12/07/2021 Comment: [facility] Nonrheumatic Aortic Valve Stenosis - 12/07/2021 Comment: [facility], echo 2021 [facility] Status Post Right Hip Replacement - 12/23/2019 Difficulty in Walking Involving Lower Leg Joint Acid Indigestion - 03/26/2016 Polycythemia, Secondary - 03/28/2011 Comment: This was abnormal, seen by , testing was normal. Generalized Osteoarthrosis, Involving Multiple Sites - 05/10/2008 Diabetes Mellitus ([facility]) - 10/20/2007 Hypertension Goal Bp (Blood Pressure) < 140/90 - 10/12/2005 Hyperlipidemia Associated With Type 2 Diabetes Mellitus ([facility]) ([facility]) - 10/12/2005 Class 3 Severe Obesity Due to Excess Calories With Body Mass Index (Bmi) of 45.0 to 49.9 in Adult ([facility]) Social History Tobacco Use Smoking status: Never Smokeless tobacco: Never Substance Use Topics Alcohol use: No Drug use: No Review of Systems Constitutional: Negative. Respiratory: Negative. Cardiovascular: Negative. OBJECTIVE BP 106/72 Pulse 96 Wt 245 lb 2.4 oz (111.2kg) SpO2 97% Physical Exam Vitals and nursing note reviewed. Constitutional: General: She is awake. She is not in acute distress. Appearance: Normal appearance. She is well-developed and well-groomed. She is not ill-appearing, toxic-appearing or diaphoretic. HENT: Head: Normocephalic. Right Ear: External ear normal. Left Ear: External ear normal. Nose: Nose normal. Eyes: General: Vision grossly intact. Conjunctiva/sclera: Conjunctivae normal. Pupils: Pupils are equal, round, and reactive to light. Neck: Vascular: No JVD. Trachea: Trachea normal. Cardiovascular: Rate and Rhythm: Normal rate and regular rhythm. Pulses: Normal pulses. Heart sounds: Normal heart sounds. No murmur heard. Pulmonary: Effort: Pulmonary effort is normal. No accessory muscle usage, prolonged expiration or respiratory distress. Breath sounds: Normal breath sounds. Musculoskeletal: Cervical back: Neck supple. Skin: General: Skin is warm and dry. Capillary Refill: Capillary refill takes less than 2 seconds. Neurological: General: No focal deficit pres (more content not included)...[facility]03-04-2025 History of Present illness Narrative* Kamlesh Acosta APRN.[facility] - 09/29/2024 12:08 PM EST SUBJECTIVE Lito Gonzalez is a 74 year old female here today for a check up on her medical problems. Chief Complaint Patient presents with: Recheck: swelling in left arm compared to right No injury that she is aware and no pain HPI Lito Gonzalez is a 74 year old female. She is an established patient of Abby Mcclellan MD. Here today for routine follow up. S/p TAVR on 04/06/2024. Had her heart surgery, had a pacemaker placed the next day. Notes some mild edema in the left upper extremity, no pain, redness or tenderness. This has been slight since she is post pacemaker placement. Seeing [facility] for cardiology follow up. She had labs done 09/19. Lito Gonzalez is a 74 year old female here today for a check up on her diabetes. She is compliant on taking her medications :Yes but she is having some diarrhea with her metformin.She has been checking fingerstick blood sugars: Yes Denies difficulty with this skill. Any low blood sugar reactions? No Denies increased urinating, eating, and drinking. Most recent HbA1c tests were: Lab Results Component Value Date HBA1C 8.9 (H) 09/19/2024 HBA1C 7.9 (H) 02/19/2024 HBA1C 7.7 (H) 10/18/2023 Her medications were reviewed today and her list is now up to date. Medications Current Outpatient Medications Medication Sig ELIQUIS 5 mg tab(s) Take 5 mg by mouth two times a day. glimepiride (AMARYL) 4 mg tablet Take 1 tablet by mouth two times a day with meals. metoprolol succinate ER (TOPROL XL) 25 mg 24 hr tablet Take 1 tablet by mouth once daily. (Dr. Hubbard) BRANNON-600 WITH VITAMIN D 600 MG-200 UNIT TAB Take one(1) tablet two(2) times daily. GLUCOSAMINE 1,000 MG ORAL TAB Take one(1) tablet daily. metFORMIN (GLUCOPHAGE) 500 mg tablet Take 1 tablet by mouth two times a day with meals. semaglutide (OZEMPIC) 0.25 mg or 0.5 mg (2 mg/3 mL) pen Inject 0.25 mg subcutaneously one time a week. blood sugar diagnostic (BLOOD GLUCOSE TEST) test strip Test blood sugar(s) 1 time daily as directed. Dx: Type 2 DM - Controlled E11.9 Insulin: No Blood-Glucose Meter (TRUE METRIX GLUCOSE METER) 1 Each as directed. Walker misc Trio Rolling Walker Lancets lancets Test blood sugar(s) 4 times daily. Dx: Type 2 DM - Uncontrolled E11.65 Insulin: Yes No current facility-administered medications for this visit. ALLERGIES Allergen Reactions Lipitor [Atorvastat* Rash red itchy rash around neck--resolved after stopping med; hands froze with stiffness that started a week after taking a couple pills--resolving ACTIVE PROBLEM LIST Cardiac Pacemaker - 09/29/2024 Cognitive Impairment - 02/25/2024 Paf (Paroxysmal Atrial Fibrillation) ([facility]) - 12/07/2021 Comment: [facility] Nonrheumatic Aortic Valve Stenosis - 12/07/2021 Comment: [facility], echo 2021 [facility] Status Post Right Hip Replacement - 12/23/2019 Difficulty in Walking Involving Lower Leg Joint Acid Indigestion - 03/26/2016 Polycythemia, Secondary - 03/28/2011 Comment: This was abnormal, seen by , testing was normal. Generalized Osteoarthrosis, Involving Multiple Sites - 05/10/2008 Diabetes Mellitus ([facility]) - 10/20/2007 Hypertension Goal Bp (Blood Pressure) < 140/90 - 10/12/2005 Hyperlipidemia Associated With Type 2 Diabetes Mellitus ([facility]) ([facility]) - 10/12/2005 Class 3 Severe Obesity Due to Excess Calories With Body Mass Index (Bmi) of 45.0 to 49.9 in Adult ([facility]) Social History Tobacco Use Smoking status: Never Smokeless tobacco: Never Substance Use Topics Alcohol use: No Drug use: No Review of Systems Constitutional: Negative. Respiratory: Negative. Cardiovascular: Negative. OBJECTIVE BP 106/72 Pulse 96 Wt 245 lb 2.4 oz (111.2kg) SpO2 97% Physical Exam Vitals and nursing note reviewed. Constitutional: General: She is awake. She is not in acute distress. Appearance: Normal appearance. She is well-developed and well-groomed. She is not ill-appearing, toxic-appearing or diaphoretic. HENT: Head: Normocephalic. Right Ear: External ear normal. Left Ear: External ear normal. Nose: Nose normal. Eyes: General: Vision grossly intact. Conjunctiva/sclera: Conjunctivae normal. Pupils: Pupils are equal, round, and reactive to light. Neck: Vascular: No JVD. Trachea: Trachea normal. Cardiovascular: Rate and Rhythm: Normal rate and regular rhythm. Pulses: Normal pulses. Heart sounds: Normal heart sounds. No murmur heard. Pulmonary: Effort: Pulmonary effort is normal. No accessory muscle usage, prolonged expiration or respiratory distress. Breath sounds: Normal breath sounds. Musculoskeletal: Cervical back: Neck supple. Skin: General: Skin is warm and dry. Capillary Refill: Capillary refill takes less than 2 seconds. Neurological: General: No focal deficit present. Mental Status: She is alert and oriented to person, place, and time. Mental status is at baseline. Psychiatric: Attention and Perception: Attention and perception normal. Mood and Affect: Mood and affect normal. Speech: Speech normal. Behavior: Behavior normal. Behavior is cooperative. Thought Content: Thought content normal. Cognition and Memory: Cognition and memory normal. Judgment: Judgment normal. ASSESSMENT/PLAN: 1. Type 2 diabetes mellitus with hyperglycemia, without long-term current use of insulin ([facility]) - ICD9: 250.00, 790.29, ICD10: E11.65 (primary diagnosis) - Uncontrolled - Decrease metformin because of diarrhea side effect - Start semaglutide (Ozempic) to work on getting hgba1c down - Blood glucose monitoring on a once daily schedule - Counseled on healthy diet and regular exercise - Discussed need for and benefit of weight loss. BMI 47.88 kg/(m^2) - SEMAGLUTIDE 0.25 MG OR 0.5 MG (2 MG/3 ML) SUBCUTANEOUS PEN INJECTOR 2. Hyperlipidemia associated with type 2 diabetes mellitus (HCC) ([facility]) - ICD9: 250.80, 272.4, ICD10: E11.69, E78.5 - Barriers to control: diet adherence and lack of exercise, see above for DM plan Hyperlipidemia is stable. - Counseled on healthy diet and regular exercise - SEMAGLUTIDE 0.25 MG OR 0.5 MG (2 MG/3 ML) SUBCUTANEOUS PEN INJECTOR 3. Hypertension goal BP (blood pressure) < 140/90 - ICD9: 401.9, ICD10: I10 - Controlled - Continue current medications - Recommend home blood pressure monitoring, to bring results to next visit - Encouraged sodium restriction, DASH or Mediterranean diet - Recommend regular aerobic exercise 4. PAF (paroxysmal atrial fibrillation) (HCC) - ICD9: 427.31, ICD10: I48.0 Stable s/p pacemaker. 5. Class 3 severe obesity due to excess calories with body mass index (BMI) of 45.0 to 49.9 in adult, unspecified whether serious comorbidity present (HCC) - ICD9: 278.01, V85.42, ICD10: E66.813, Z68.42, E66.01 - Behavioral intervention, - Pharmacological intervention, and - Add Semaglutide (Ozempic) - SEMAGLUTIDE 0.25 MG OR 0.5 MG (2 MG/3 ML) SUBCUTANEOUS PEN INJECTOR 6. Encounter for immunization - ICD9: V03.89, ICD10: Z23 - INFLUENZA VACCINE, PRSV FREE, AGE 65+ YR, HIGH DOSE, TRIVALENT (FLUZONE HIGH-DOSE) 7. Nonrheumatic aortic valve stenosis - ICD9: 424.1, ICD10: I35.0 Doing well s/p TAVR, following with cardiology. 8. Arm edema - ICD9: 782.3, ICD10: R60.0 Slight edema since having had the incision to the left lateral chest/left medial arm area. No pain associated and this is not bothersome, will monitor. 9. Cardiac pacemaker - ICD9: V45.01, ICD10: Z95.0 Doing well. Portions of this note have been entered by ancillary staff. I have reviewed and when necessary edited, so that they are an adequate record of my encounter with this patient Please note that parts of this document were created using voice recognition software and therefore may contain grammatical errors. Patient verbalizes understanding of instructions from today's visit and in agreement with treatmentplan. Questions answered. Agrees to call the office if questions, concerns of issues with acute symptoms not improving or if they worsen. See diagnoses and orders for additional plan(s). Allergies and medications were reviewed, list was updated, and refills given if needed. Past medical, surgical, social, and family history reviewed and updated as appropriate. Encouraged proper diet & exercise as well as compliance with taking medications. Age- appropriate health preventative measures were discussed. Return in about 6 weeks (around 11/10/2024) for recheck on new medication.. Kamlesh Acosta APRN-DANILO documented [facility] Telephone encounter Note * Telephone Encounter - Abby Mcclellan MD - 09/23/2024 1:13 PM EST The following approved medication requests have been transmitted electronically. Requested Prescriptions Pending Prescriptions Disp Refills glimepiride (AMARYL) 4 mg tablet 180 tablet 1 Sig: Take 1 tablet by mouth two times a day with meals. Abby Mcclellan MD [facility]02-26-2025 Miscellaneous Notes* Telephone Encounter - Abby Mcclellan MD - 09/23/2024 1:13 PM EST The following approved medication requests have been transmitted electronically. Requested Prescriptions Pending Prescriptions Disp Refills glimepiride (AMARYL) 4 mg tablet 180 tablet 1 Sig: Take 1 tablet by mouth two times a day with meals. Abby Mcclellan MD * Telephone Encounter - Patricia Cuenca - 09/21/2024 1:36 PM EST Prescription Refill Information The patient has been identified by name and date of : Yes Caregiver verified no other encounters exist for this prescription request: Yes Caregiver confirmed with patient/requestor that no other refills are due, in the near future, with this provider at this time: Yes The last office visit in the department: 02/25/24 Does the patient have a future office visit with this provider/department: Yes 09/29/24 Requested Prescriptions Pending Prescriptions Disp Refills glimepiride (AMARYL) 4 mg tablet 180 tablet 1 Sig: Take 1 tablet by mouth two times a day with meals. Patricia Cuenca September 21, 2024 1:37 PM documented in this encounterEly[facility]02-24-2025 Telephone encounter Note * Telephone Encounter - Patricia Cuenca - 09/21/2024 1:36 PM EST Prescription Refill Information The patient has been identified by name and date of : Yes Caregiver verified no other encounters exist for this prescription request: Yes Caregiver confirmed with patient/requestor that no other refills are due, in the near future, with this provider at this time: Yes The last office visit in the department: 02/25/24 Does the patient have a future office visit with this provider/department: Yes 09/29/24 Requested Prescriptions Pending Prescriptions Disp Refills glimepiride (AMARYL) 4 mg tablet 180 tablet 1 Sig: Take 1 tablet by mouth two times a day with meals. Patricia Cuenca September 21, 2024 1:37 PM [facility]01-22-2025 Telephone encounter Note* Telephone Encounter - Abby Mcclellan MD - 08/19/2024 6:11 PM EST Labs set to August to for September appointment Included [facility]ACR [facility]01-22-2025 Miscellaneous Notes* Telephone Encounter - Abby Mcclellan MD - 08/19/2024 6:11 PM EST Labs set to August to for September appointment Included UACR * Telephone Encounter - Barbara Duran - 08/18/2024 12:52 PM EST Lito is calling Abby Mcclellan MD today to request Lab Orders (September appointment) Patient has been identified by name and birthdate. Duration of symptoms: N/A Person calling: self Call patient at: at home [phone] (home) [phone] (cell) Was an appointment scheduled: Yes: Date/Time: 09-29-24 Closing statement: Barbara Clements documented in this encounterEly[facility] Hospital01-22-2025 Telephone encounter Note * Telephone Encounter - Abby Mcclellan MD - 08/19/2024 1:04 PM EST The following approved medication requests have been transmitted electronically. Requested Prescriptions Pending Prescriptions Disp Refills metFORMIN (GLUCOPHAGE) 500 mg tablet 180 tablet 3 Sig: Take 2 tablets by mouth two times a day with meals. Abby Mcclellan MD [facility]01-22-2025 Miscellaneous Notes* Telephone Encounter - Abby Mcclellan MD - 08/19/2024 1:04 PM EST The following approved medication requests have been transmitted electronically. Requested Prescriptions Pending Prescriptions Disp Refills metFORMIN (GLUCOPHAGE) 500 mg tablet 180 tablet 3 Sig: Take 2 tablets by mouth two times a day with meals. Abby Mcclellan MD * Telephone Encounter - Barbara Duran - 08/18/2024 12:47 PM EST Prescription Refill Information The patient has been identified by name and date of : Yes Caregiver verified no other encounters exist for this prescription request: Yes Caregiver confirmed with patient/requestor that no other refills are due, in the near future, with this provider at this time: Yes The last office visit in the department: 02-25-24 Does the patient have a future office visit with this provider/department: Yes Requested Prescriptions Pending Prescriptions Disp Refills metFORMIN (GLUCOPHAGE) 500 mg tablet 180 tablet 3 Sig: Take 2 tablets by mouth two times a day with meals. Patient states the pharmacy said she has no refills. Barbara Melchor Jay Clements August 18, 2024 12:53 PM documented in this encounterElyria [facility] Hospital01-21-2025 Telephone encounter Note * Telephone Encounter - Barbara Duran - 08/18/2024 12:52 PM EST Lito is calling Abby Mcclellan MD today to request Lab Orders (September appointment) Patient has been identified by name and birthdate. Duration of symptoms: N/A Person calling: self Call patient at: at home [phone] (home) [phone] (cell) Was an appointment scheduled: Yes: Date/Time: 09-29-24 Closing statement: Barbara Ruiz Jay Clements [facility] Work Phone: 1(923) 498-528001-21-2025 Telephone encounter Note* Telephone Encounter - Barbara Duran - 08/18/2024 12:47 PM EST Prescription Refill Information The patient has been identified by name and date of : Yes Caregiver verified no other encounters exist for this prescription request: Yes Caregiver confirmed with patient/requestor that no other refills are due, in the near future, with this provider at this time: Yes The last office visit in the department: 02-25-24 Does the patient have a future office visit with this provider/department: Yes Requested Prescriptions Pending Prescriptions Disp Refills metFORMIN (GLUCOPHAGE) 500 mg tablet 180 tablet 3 Sig: Take 2 tablets by mouth two times a day with meals. Patient states the pharmacy said she has no refills. Barbara Melchor Jay Clements August 18, 2024 12:53 PM [facility] Work Phone: 1(689) 464-843411-15-2024 Telephone encounter Note* Telephone Encounter - Sadiq Babcock - 06/12/2024 1:54 PM EST 3 attempts have no been made to reach patient. She can reach us at [phone] M-F 8-5. We will continue to reach out as well. [facility] [id number] Miscellaneous Notes* Telephone Encounter - Sadiq Babcock - 06/12/2024 1:54 PM EST 3 attempts have no been made to reach patient. She can reach us at [phone] M-F 8-5. We will continue to reach out as well. * Telephone Encounter - Theresa Felipe - 05/27/2024 2:33 PM EDT Prior Auth was required and has been approved through 07/28/2025. I attempted to reach the patient to inform of authorization and offer SHSP services but no one answered and VM was is full. Will continue to make further outreaches. Thank you! documented in this encounterSSelect Medical Specialty [facility] [id number] Telephone encounter Note* Telephone Encounter - Theresa Felipe - 05/27/2024 2:33 PM EDT Prior Auth was required and has been approved through 07/28/2025. I attempted to reach the patient to inform of authorization and offer SHSP services but no one answered and VM was is full. Will continue to make further outreaches. Thank you! [facility] [id number] Telephone encounter Note* Telephone Encounter - Polly Coleman RN - 05/19/2024 11:01 AM EDT Chart reviewed, Ammy was started @ [facility] 05/07/24, samples & 30 D free card given, pt will be following up w/ Dr. Hubbard. I spoke w/pt, she has 30 Day free card, but needs RX sent in. She has appt w/ Dr. Hubbard in 2 weeks. Gloria Davis to route RX. [facility] [id number] Miscellaneous Notes* Telephone Encounter - Polly Coleman RN - 05/19/2024 11:01 AM EDT Chart reviewed, Eliquis was started @ [facility] 05/07/24, samples & 30 D free card given, pt will be following up w/ Dr. Hubbard. I spoke w/pt, she has 30 Day free card, but needs RX sent in. She has appt w/ Dr. Hubbard in 2 weeks. [facility] Davis to route RX. * Telephone Encounter - Charlotte Godinez - 05/19/2024 10:29 AM EDT Requesting refill apixaban (Eliquis) 5 MG tablet [facility] [place] verified documented in this encounterSSelect Medical Specialty Hospital - [facility] [id number] Telephone encounter Note* Telephone Encounter - Charlotte Godinez - 05/19/2024 10:29 AM EDT Requesting refill apixaban (Eliquis) 5 MG tablet [facility] [place] verified [facility] [id number] History of Present illness Narrative* America Davis APRN - [employer] - 05/07/2024 3:00 PM EDT Images from the original note were not included. [facility] - [address] [address] Dept: [phone] Dept Loc: [phone] Reason for Visit: 1 Month Follow Up Assessment and Plan 1. Severe aortic stenosis Assessment & Plan: S/p TAVR with 23 mm Makenzie S3 valve on 04/06/24 -stable, NYHA Class -continue ASA 81 mg daily -repeat echo to be done today -lifelong SBE prophylaxis -Cardiac Rehab Orders: - ECG 12 lead - CLINIC PERFORMED 2. PAF (paroxysmal atrial fibrillation) (HCC) Assessment & Plan: Hx PAF with RVR in setting of DKA and sepsis -no further episodes of AFib noted 3. Essential hypertension Assessment & Plan: Well controlled on current doses of losartan and metoprolol succinate 4. Complete heart block (HCC) Assessment & Plan: Noted post TAVR, PPM placed on 04/06/[address] Hubbard . Subjective HPI Lito Gonzalez is a 73 y.o. female known to Dr. Hubbard with a history of paroxysmal atrial fibrillation, nonrheumatic aortic valve stenosis, T2DM, hypertension, RBBB and left posterior fascicular block. Cath showed minimal CAD. She underwent femoral TAVR with 23 mm Makenzie S3 valve on 04/06/2024. POD 1 echo showed EF 66%, mean ao gradient 12 mm Hg. She developed high degree AV block with intermittent SVT. PPM was implanted on 04/06, beta liliya was resumed. She was discharged on 04/08/2024. One week noted improvement in SOB Echo at 2 pm SOB noticable better by and sister, Still get tired No cp No ortho, PND No dizzy, palps Sample and 30 day free card Review of Systems Constitutional: Negative for chills and fever. Respiratory: Negative for cough and shortness of breath. Cardiovascular: Negative for chest pain, palpitations and leg swelling. Gastrointestinal: Negative for abdominal pain, blood in stool and vomiting. Genitourinary: Negative for hematuria. Neurological: Negative for dizziness and syncope. Allergies Allergen Reactions Atorvastatin Rash red itchy rash around neck--resolved after stopping med; hands froze with stiffness that started a week after taking a couple pills--resolving Outpatient Medications Prior to Visit Medication Sig Dispense Refill calcium carbonate 500 MG chewable tablet Chew 500 mg daily. glimepiride (Amaryl) 4 MG tablet Take 1 tablet by mouth in the morning and 1 tablet in the evening.Take with meals. Cborlxhjdys-Ogjmfyfdw-Zrp C-Mn (GLUCOSAMINE 1500 COMPLEX PO) Take by mouth. [employer] Blood Glucose Test test strip Test blood sugar(s) 1 time daily as directed. Dx: Type 2 DM - Controlled E11.9 Insulin: No metFORMIN (Glucophage) 500 MG tablet Take 2 tablets (1,000 mg) by mouth in the morning and 2 tablets (1,000 mg) in the evening. Take with meals. Resume 04/09/2024. aspirin 81 MG EC tablet Take 81 mg by mouth daily. losartan (Cozaar) 50 MG tablet Take 1 tablet (50 mg) by mouth daily. 30 tablet 3 metoprolol succinate XL (Toprol-XL) 25 MG 24 hr tablet Take 50 mg by mouth daily. No facility-administered medications prior to visit. Past Medical History: Diagnosis Date Atrial fibrillation (HCC) Diabetes mellitus (HCC) Heart valve disease Hypertension Social History Tobacco Use Smoking status: Never Smokeless tobacco: Never Substance Use Topics Alcohol use: Never Past Surgical History: Procedure Laterality Date APPENDECTOMY CARDIAC CATHETERIZATION N/A 04/06/2024 Performed by Srinivasa Poon MD at [facility] OR CARDIAC ELECTROPHYSIOLOGY PROCEDURE N/A 04/07/2024 Performed by Eric Okeefe MD at [facility] Cardiac Cath/EP Lab HYSTERECTOMY TOTAL HIP ARTHROPLASTY Right 12/02/2019 TOTAL KNEE ARTHROPLASTY Left 01/31/2009 TOTAL KNEE ARTHROPLASTY Right Family History Problem Relation Name Age of Onset Breast cancer Mother COPD Father Coronary artery disease Father Objective Vitals: 05/07/24 1537 BP: 122/70 BP Location: Left arm Patient Position: Sitting BP Cuff Size: Large adult Pulse: 103 Weight: 240 lb (109 kg) Height: 4' 11.5 (1.511 m) Body mass index is 47.66 kg/m . Physical Exam Data Reviewed and Summarized Lab Results Component Value Date WBC 10.1 04/08/2024 HGB 13.5 04/08/2024 HCT 41.2 04/08/2024 MCV 93.0 04/08/2024 PLT 144 04/08/2024 Lab Results Component Value Date GLUCOSE 159 (H) 04/08/2024 CALCIUM 9.4 04/08/2024 NA 135 04/08/2024 K 3.9 04/08/2024 CO2 22 04/08/2024 CL 108 (H) 04/08/2024 BUN 18 (H) 04/08/2024 CREATININE 0.74 04/08/2024 EF BP Date Value Ref Range Status 05/07/2024 67 55 - 100 % MILDRED Ceja CNP documented in this [facility]10-10-2024 History of Present illness Narrative* MILDRED Fuentes CNP - 05/07/2024 3:00 PM EDT Images from the original note were not included. [facility] [place] [address] [facility] [address] Dept: [phone] Dept Loc: [phone] Reason for Visit: 1 Month Follow Up Assessment and Plan 1. Severe aortic stenosis Assessment & Plan: S/p TAVR with 23 mm Makenzie S3 valve on 04/06/24 -stable, NYHA Class II -stop ASA, start Eliquis, see below -repeat echo to be done today -lifelong SBE prophylaxis -Cardiac Rehab-advised her to schedule an orientation Orders: - ECG 12 lead - CLINIC PERFORMED 2. PAF (paroxysmal atrial fibrillation) (HCC) Assessment & Plan: Hx PAF with RVR in setting of DKA and sepsis -Today pacemaker check reveals PAF with some RVR, AFib burden 2.3% with longest episode 3 hours -CHADS-VASC=4 -HAS-BLED=1 -patient asymptomatic with episodes of AFib -will increase metoprolol succinate to 50 mg daily -stop ASA. Will initiate Eliquis 5 mg BID (age 73, wt 109kg, SCr 0.87). samples provided and 30 dayfree card given to patient 3. Essential hypertension Assessment & Plan: Well controlled on current doses of losartan and metoprolol succinate 4. Complete heart block (HCC) Assessment & Plan: Noted post TAVR, PPM placed on 04/06/24 -will follow with device clinic at [facility] Follow up for Dr. Hubbard 1-2 months. Subjective HPI Lito Gonzalez is a 73 y.o. female known to Dr. Hubbard with a history of paroxysmal atrial fibrillation, nonrheumatic aortic valve stenosis, T2DM, hypertension, RBBB and left posterior fascicular block. Cath showed minimal CAD. She underwent femoral TAVR with 23 mm Makenzie S3 valve on 04/06/2024. POD 1 echo showed EF 66%, mean ao gradient 12 mm Hg. She developed high degree AV block with intermittent SVT. PPM was implanted on 04/06, beta liliya was resumed. She was discharged on 04/08/2024. She presents today for a one week TAVR follow up accompanied by her . She reports improvement in her SOB that is especially noticed by her and sister. Still reports some fatigue. Denies angina, orthopnea, PND, dizziness, palpitations or abnormal bleeding. Device check today showed PAF with longest AFib event 3 hours, AFib burden 2.3%. Poor rate control with some HR up to 160 bpm. Patient asymptomatic. Review of Systems Constitutional: Negative for chills and fever. Respiratory: Negative for cough and shortness of breath. Cardiovascular: Negative for chest pain, palpitations and leg swelling. Gastrointestinal: Negative for abdominal pain, blood in stool and vomiting. Genitourinary: Negative for hematuria. Neurological: Negative for dizziness and syncope. Allergies Allergen Reactions Atorvastatin Rash red itchy rash around neck--resolved after stopping med; hands froze with stiffness that started a week after taking a couple pills--resolving Outpatient Medications Prior to Visit Medication Sig Dispense Refill calcium carbonate 500 MG chewable tablet Chew 500 mg daily. glimepiride (Amaryl) 4 MG tablet Take 1 tablet by mouth in the morning and 1 tablet in the evening.Take with meals. Xgbgzlpzkyf-Fbnxgeglz-Dvz C-Mn (GLUCOSAMINE 1500 COMPLEX PO) Take by mouth. [facility] Blood Glucose Test test strip Test blood sugar(s) 1 time daily as directed. Dx: Type 2 DM - Controlled E11.9 Insulin: No metFORMIN (Glucophage) 500 MG tablet Take 2 tablets (1,000 mg) by mouth in the morning and 2 tablets (1,000 mg) in the evening. Take with meals. Resume 04/09/2024. aspirin 81 MG EC tablet Take 81 mg by mouth daily. losartan (Cozaar) 50 MG tablet Take 1 tablet (50 mg) by mouth daily. 30 tablet 3 metoprolol succinate XL (Toprol-XL) 25 MG 24 hr tablet Take 50 mg by mouth daily. No facility-administered medications prior to visit. Past Medical History: Diagnosis Date Atrial fibrillation (HCC) Diabetes mellitus (HCC) Heart valve disease Hypertension Social History Tobacco Use Smoking status: Never Smokeless tobacco: Never Substance Use Topics Alcohol use: Never Past Surgical History: Procedure Laterality Date APPENDECTOMY CARDIAC CATHETERIZATION N/A 04/06/2024 Performed by Srinivasa Poon MD at [facility] OR CARDIAC ELECTROPHYSIOLOGY PROCEDURE N/A 04/07/2024 Performed by Eric Okeefe MD at [facility] Cardiac Cath/EP Lab HYSTERECTOMY TOTAL HIP ARTHROPLASTY Right 12/02/2019 TOTAL KNEE ARTHROPLASTY Left 01/31/2009 TOTAL KNEE ARTHROPLASTY Right Family History Problem Relation Name Age of Onset Breast cancer Mother COPD Father Coronary artery disease Father Objective Vitals: 05/07/24 1537 BP: 122/70 BP Location: Left arm Patient Position: Sitting BP Cuff Size: Large adult Pulse: 103 Weight: 240 lb (109 kg) Height: 4' 11.5 (1.511 m) Body mass index is 47.66 kg/m . Physical Exam Constitutional: Appearance: Normal appearance. HENT: Head: Normocephalic. Eyes: General: No scleral icterus. Right eye: No discharge. Left eye: No discharge. Cardiovascular: Rate and Rhythm: Normal rate and regular rhythm. Pulses: Normal pulses. Dorsalis pedis pulses are 2+ on the right side and 2+ on the left side. Posterior tibial pulses are 2+ on the right side and 2+ on the left side. Heart sounds: Normal heart sounds. No murmur heard. Pulmonary: Effort: Pulmonary effort is normal. Breath sounds: Normal breath sounds. Abdominal: General: Abdomen is flat. Palpations: Abdomen is soft. Musculoskeletal: General: Normal range of motion. Cervical back: Normal range of motion. Right lower le+ Edema present. Left lower le+ Edema present. Skin: General: Skin is warm and dry. Capillary Refill: Capillary refill takes less than 2 seconds. Neurological: Mental Status: She is alert and oriented to person, place, and time. Psychiatric: Mood and Affect: Mood normal. Data Reviewed and Summarized Lab Results Component Value Date WBC 10.1 04/08/2024 HGB 13.5 04/08/2024 HCT 41.2 04/08/2024 MCV 93.0 04/08/2024 PLT 144 04/08/2024 Lab Results Component Value Date GLUCOSE 159 (H) 04/08/2024 CALCIUM 9.4 04/08/2024 NA 135 04/08/2024 K 3.9 04/08/2024 CO2 22 04/08/2024 CL 108 (H) 04/08/2024 BUN 18 (H) 04/08/2024 CREATININE 0.74 04/08/2024 EF BP Date Value Ref Range Status 05/07/2024 67 55 - 100 % Final MILDRED Ceja CNP documented in this [facility]10-10-2024 Evaluation + Plan note* Assessment & Plan Note - MILDRED Fuentes CNP - 05/07/2024 10:31 AM EDT Associated Problem(s): Essential hypertension Well controlled on current doses of losartan and metoprolol succinate [id number] + Plan note* Assessment & Plan Note - MILDRED Fuentes CNP - 05/07/2024 10:31 AM EDTAssociated Problem(s): PAF (paroxysmal atrial fibrillation) (HCC) Hx PAF with RVR in setting of DKA and sepsis -Today pacemaker check reveals PAF with some RVR, AFib burden 2.3% with longest episode 3 hours -CHADS-VASC=4 -HAS-BLED=1 -patient asymptomatic with episodes of AFib -will increase metoprolol succinate to 50 mg daily -stop ASA. Will initiate Eliquis 5 mg BID (age 73, wt 109kg, SCr 0.87). samples provided and 30 dayfree card given to patient [id number] Miscellaneous Notes* Assessment & Plan Note - MILDRED Fuentes CNP - 05/07/2024 10:31 AM EDTAssociated Problem(s): Essential hypertension Well controlled on current doses of losartan and metoprolol succinate * Assessment & Plan Note - MILDRED Fuentes CNP - 05/07/2024 10:31 AM EDT Associated Problem(s): PAF (paroxysmal atrial fibrillation) (HCC) Hx PAF with RVR in setting of DKA and sepsis -no further episodes of AFib noted * Assessment & Plan Note - MILDRED Fuentes CNP - 05/07/2024 10:28 AM EDT Associated Problem(s): Complete heart block (HCC) Noted post TAVR, PPM placed on 04/06/24 * Assessment & Plan Note - MILDRED Fuentes CNP - 05/07/2024 10:13 AM EDT Associated Problem(s): Severe aortic stenosis S/p TAVR with 23 mm Makenzie S3 valve on 04/06/24 -stable, NYHA Class -continue ASA 81 mg daily -repeat echo to be done today -lifelong SBE prophylaxis -Cardiac Rehab documented in this [facility]10-10-2024 Miscellaneous Notes* Assessment & Plan Note - MILDRED Fuentes CNP - 05/07/2024 10:31 AM EDT Associated Problem(s): Essential hypertension Well controlled on current doses of losartan and metoprolol succinate * Assessment & Plan Note - MILDRED Fuentes CNP - 05/07/2024 10:31 AM EDT Associated Problem(s): PAF (paroxysmal atrial fibrillation) (HCC) Hx PAF with RVR in setting of DKA and sepsis -Today pacemaker check reveals PAF with some RVR, AFib burden 2.3% with longest episode 3 hours -CHADS-VASC=4 -HAS-BLED=1 -patient asymptomatic with episodes of AFib -will increase metoprolol succinate to 50 mg daily -stop ASA. Will initiate Eliquis 5 mg BID (age 73, wt 109kg, SCr 0.87). samples provided and 30 dayfree card given to patient * Assessment & Plan Note - MILDRED Fuentes CNP - 05/07/2024 10:28 AM EDT Associated Problem(s): Complete heart block (HCC) Noted post TAVR, PPM placed on 04/06/24 -will follow with device clinic at [facility] * Assessment & Plan Note - MILDRED Fuentes CNP - 05/07/2024 10:13 AM EDT Associated Problem(s): Severe aortic stenosis S/p TAVR with 23 mm Makenzie S3 valve on 04/06/24 -stable, NYHA Class II -stop ASA, start Eliquis, see below -repeat echo to be done today -lifelong SBE prophylaxis -Cardiac Rehab-advised her to schedule an orientation documented in this [facility]10-10-2024 Evaluation + Plan note* Assessment & Plan Note - MILDRED Fuentes CNP - 05/07/2024 10:28 AM EDT Associated Problem(s): Complete heart block (HCC) Noted post TAVR, PPM placed on 04/06/24 -will follow with device clinic at [id number] Evaluation + Plan note* Assessment & Plan Note - MILDRED Fuentes CNP - 05/07/2024 10:13 AM EDTAssociated Problem(s): Severe aortic stenosis S/p TAVR with 23 mm Makenzie S3 valve on 04/06/24 -stable, NYHA Class II -stop ASA, start Eliquis, see below -repeat echo to be done today -lifelong SBE prophylaxis -Cardiac Rehab-advised her to schedule an orientation [id number] Telephone encounter Note* Telephone Encounter - Inna Proctor - 04/23/2024 12:35 PM EDT Prescription Refill Information The patient has been identified by name and date of : Yes Caregiver verified no other encounters exist for this prescription request: Yes Caregiver confirmed with patient/requestor that no other refills are due, in the near future, with this provider at this time: Yes The last office visit in the department: 02/25/2024 Does the patient have a future office visit with this provider/department: Yes Requested Prescriptions Pending Prescriptions Disp Refills glimepiride (AMARYL) 4 mg tablet 180 tablet 1 Sig: Take 1 tablet by mouth two times a day with meals. Inna Proctor April 23, 2024 12:36 PM [facility]09-26-2024 Miscellaneous Notes* Telephone Encounter - Inna Proctor - 04/23/2024 12:35 PM EDT Prescription Refill Information The patient has been identified by name and date of : Yes Caregiver verified no other encounters exist for this prescription request: Yes Caregiver confirmed with patient/requestor that no other refills are due, in the near future, with this provider at this time: Yes The last office visit in the department: 02/25/2024 Does the patient have a future office visit with this provider/department: Yes Requested Prescriptions Pending Prescriptions Disp Refills glimepiride (AMARYL) 4 mg tablet 180 tablet 1 Sig: Take 1 tablet by mouth two times a day with meals. Inna Proctor April 23, 2024 12:36 PM [facility] History of Present illness Narrative* Lindsey Tolentino APRN - DANILO - 04/17/2024 12:45 PM EDT Images from the original note were not included. [facility] - [place] [address] [facility] [address] Dept: [phone] Dept Visit type: Established : 1950 Reason for Visit: No chief complaint on file. Assessment and Plan 1. S/P TAVR (transcatheter aortic valve replacement). She has a resting tachycardia today, unclear etiology. Will check labs - Basic metabolic panel - CBC auto differential - TSH - [facility] Cardiac/Pulmonary Rehab 2. Essential hypertension. BP controlled, continue metoprolol. - ECG 12 lead - CLINIC PERFORMED - Basic metabolic panel - CBC auto differential - TSH - [facility] Cardiac/Pulmonary Rehab 3. Aortic valve stenosis, etiology of cardiac valve disease unspecified. S/p TAVR. Continue ASA, SBE prophylaxis. Referred to cardiac rehabEcho and re evaluation in one month. - Basic metabolic panel - CBC auto differential - TSH - [facility] Cardiac/Pulmonary Rehab 4. Complete heart block (CMS/HCC) (HCC). S/p PPm. Has follow up with device clinic. One month follow up Subjective Lito Gonzalez is a 73 y.o. female with PMH paroxysmal atrial fibrillation ?, nonrheumatic aortic valve stenosis, DM, hypertension, RBBB and left posterior fascicular block that presented to [facility] on 04/06/2024 for TAVR. Femoral TAVR with 23 mm Makenzie S3 valve was performed on 04/06/2024. POD 1 echo showed EF 66%, mean ao gradient 12 mm Hg. She developed high degree AV block with intermittent SVT. PPM was implanted on 04/06, beta liliya was resumed. She was discharged on 04/08/2024. Today she is here for one week follow up. Lito denies any chest pain, dyspnea, groin/wrist complaints, bleeding. Her spouse notes improvement in breathing. Allergies Allergen Reactions Atorvastatin Rash red itchy rash around neck--resolved after stopping med; hands froze with stiffness that started a week after taking a couple pills--resolving Outpatient Medications Prior to Visit Medication Sig Dispense Refill aspirin 81 MG EC tablet Take 81 mg by mouth daily. calcium carbonate 500 MG chewable tablet Chew 500 mg daily. glimepiride (Amaryl) 4 MG tablet Take 1 tablet by mouth in the morning and 1 tablet in the evening.Take with meals. Orvdghnqvfs-Csjrzmfus-Nft C-Mn (GLUCOSAMINE 1500 COMPLEX PO) Take by mouth. [employer] Blood Glucose Test test strip Test blood sugar(s) 1 time daily as directed. Dx: Type 2 DM - Controlled E11.9 Insulin: No losartan (Cozaar) 50 MG tablet Take 1 tablet (50 mg) by mouth daily. 30 tablet 3 metFORMIN (Glucophage) 500 MG tablet Take 2 tablets (1,000 mg) by mouth in the morning and 2 tablets (1,000 mg) in the evening. Take with meals. Resume 04/09/2024. metoprolol succinate XL (Toprol-XL) 25 MG 24 hr tablet Take 25 mg by mouth daily. No facility-administered medications prior to visit. Past Medical History: Diagnosis Date Atrial fibrillation (HCC) Diabetes mellitus (HCC) Heart valve disease Hypertension Social History Tobacco Use Smoking status: Never Smokeless tobacco: Never Substance Use Topics Alcohol use: Never Past Surgical History: Procedure Laterality Date APPENDECTOMY CARDIAC CATHETERIZATION N/A 04/06/2024 Performed by Srinivasa Poon MD at [facility] OR CARDIAC ELECTROPHYSIOLOGY PROCEDURE N/A 04/07/2024 Performed by Eric Okeefe MD at [facility] Cardiac Cath/EP Lab HYSTERECTOMY TOTAL HIP ARTHROPLASTY Right 12/02/2019 TOTAL KNEE ARTHROPLASTY Left 01/31/2009 TOTAL KNEE ARTHROPLASTY Right Family History Problem Relation Name Age of Onset Breast cancer Mother COPD Father Coronary artery disease Father Objective Vitals: 04/17/24 1302 BP: 110/70 BP Location: Right arm Patient Position: Sitting BP Cuff Size: Large adult Pulse: 110 SpO2: 100% Weight: 240 lb (109 kg) Height: 4' 11 (1.499 m) Physical Exam Constitutional: Appearance: Normal appearance. She is obese. HENT: Head: Normocephalic and atraumatic. Nose: Nose normal. Eyes: Conjunctiva/sclera: Conjunctivae normal. Pupils: Pupils are equal, round, and reactive to light. Cardiovascular: Rate and Rhythm: Regular rhythm. Tachycardia present. Pulmonary: Effort: Pulmonary effort is normal. Breath sounds: Normal breath sounds. Abdominal: General: Bowel sounds are normal. Palpations: Abdomen is soft. Musculoskeletal: General: Normal range of motion. Cervical back: Normal range of motion and neck supple. Right lower leg: Edema present. Left lower leg: Edema present. Skin: General: Skin is warm and dry. Comments: Right wrist and groin soft without bleeding or hematoma Neurological: General: No focal deficit present. Mental Status: She is alert and oriented to person, place, and time. Psychiatric: Mood and Affect: Mood normal. Thought Content: Thought content normal. Data Reviewed and Summarized EF BP Date Value Ref Range Status 04/07/2024 66 55 - 100 % Final Review of tests/labs done/ordered within my specialty: EKG in office: with ALEYDA Review of tests/labs done/ordered outside my specialty: Independent interpretation of tests: MILDRED Maza CNP documented in this [facility]09-11-2024 NoteSuccessful dual-chamber pacemaker implant Procedure Details Following informed consent the patient was prepped and draped in usual sterile manner. Intravenous Versed and fentanyl given for sedation. 2% lidocaine with 0.5% bupivacaine with local anesthesia. 1 g vancomycin was administered prior to incision. An incision was made over the left deltopectoral groove. Electrocautery was performed to level the fascia. A pocket was created over the fascia with electrocautery. Using the modified Seldinger technique access was obtained x 2 in the left axillary vein. A 9 [place] sheath was placed and the ventricular is advanced in the heart. This was repeated to 7 [place] sheath for the atrial lead. The atrial lead was then placed into the RV apex for temporary pacing. A curved stylette was placed to the ventricular lead and was placed into the outflow tract and then a prolapsed into the apex. It was actively fixated. There is adequate pacing sensing and 10 V failed stimulate the diaphragm. The atrial lead was then placed into the atrium and a preformed J stylette was placed. The lead was placed in the high right atrium and actively fixated. There is adequate pacing sensing and 10 V felt similar to diaphragm. The lead was secured with 0 silk suture. The pocket irrigated gentamicin solution. The pacemaker attached to leads were placed in the pocket. The wound was closed with 2-0 Vicryl. And then 4-0 Vicryl subcuticular. A sterile dressing was placedand the patient went to lab in stable condition.[facility] [id number] Note Attestation signed by Calvin Barnard MD PhD at 04/21/2024 10:04 AM I, Dr. Barnard, saw and evaluated the patient. I personally obtained the parker and critical portions of the history and physical exam. I reviewed the chart, the Team's documentation, and discussed the patient with the Team. I agree with the Team's medical decision making and have edited the note to reflect my clinical findings and my assessment and plan. 73 yo female with severe s/p TAVR afte which she developed CHB leading to PPM placement. EF preserved. Of note, RBBB and LPFB pre-procedure put at increased risk for PPM after procedure. [facility] [place] [facility] Discharge Summary Name: Lito Gonzalez Date of : 1950 Date of Admission: 04/06/2024 Date of Discharge: 04/08/2024 Discharge Attending: Jose Herndon MD Primary Care Provider: ABBY MCCLELLAN Type of Admission: Admission Code Status: Full Code Reason for Admission Severe aortic stenosis s/p TAVR Discharge Diagnoses: New onset complete heart block Hx of paroxysmal A.fib Hx of hypertension Severe aortic stenosis s/p TAVR Diabetes mellitus with hyperglycemia Class 3 Obesity Hospital Course Lito Gonzalez is a 73 y.o. female with PMH paroxysmal atrial fibrillation, nonrheumatic aortic valve stenosis, DM, hypertension, RBBB and left posterior fascicular block that presented to [facility] on 04/06/2024 for TAVR procedure who presented to the [facility] on 04/06 for TAVR placement due to calcification of the aortic valve with severe stenosis. Her peak and mean gradients were 69/46. TAVR was done through right femoral access and post echo showed an EF of 69% with a mean gradient of 4 and no valvular regurg. Follow-up echo on 04/07 showed an EF of 66% with a AV mean gradient of 12 without regurgitation. Postprocedure patient developed 20s episode of AV block and required biventricular pacemaker placement. 2/2 HTN she was started on losartan 50 daily and resumed her home metoprolol succinate 25 daily for rate control in setting of documented paroxysmal afib. On 04/08 patient was cleared by TAVR team and EP team after CXR placement confirmation of the pacemaker, and was discharged home with cardiac rehab referral and follow-up with both EP and Structural Cardiology. During the patient's stay her chart was investigated to see why she has a hx of paroxysmal afib but has never been on anticoagulation. I could not find definitive diagnosis of Afib. In an office visit note from 07/01/2014 it referenced a hospitalization in September 2003 for palpitations. Outside if this her metoprolol seems to have been originally started for unspecified tachycardia. 2/2 this unclear hx, need for anticoagulation is also unclear at this time. During her time hospitalized in this stay she has not had any episodes of afib. Consultants: IP CONSULT TO CARDIAC REHAB IP CONSULT TO CARDIOLOGY Procedures: 04/06 TAVR placement, 04/07 Biventricular Pacemaker Placement Last diet during hospitalization: Adult diet Regular; Low Sodium (2 gm); Low Potassium (Less than 3000 mg/day) Recommended at discharge: Same as above. Activity No heavy lifting. Light work; Disposition: Home Condition at Discharge: fair Followup Testing/ Instructions: Start taking losartan 50 mg daily starting 04/09. Follow-up 04/16 @ 1:[address] Davis for TAVR follow-up. Programs/services: None Facility/Home Care Agency: NONE Future Appointments Date Time Provider Department Center 04/16/2024 1:30 PM MILDRED Fuentes CNP [facility] Ar 04/28/2024 1:00 PM MICHELLE KUMARI [facility] - DEVICE RN 3 [facility] Ar 05/07/2024 2:00 PM ARCH ECHO 2 [facility] 95 Arch Imag 05/07/2024 3:00 PM MILDRED Fuentes CNP [facility] Ar Discharge Plan Medication List START taking these medications losartan 50 MG tablet Commonly known as: Cozaar Take 1 tablet (50 mg) by mouth daily. Start taking on: April 09, 2024 CHANGE how you take these medications metFORMIN 500 MG tablet Commonly known as: Glucophage Take 2 tablets (1,000 mg) by mouth in the morning and 2 tablets (1,000 mg) in the evening. Take with meals. Resume 04/09/2024. What changed: additional instructions CONTINUE taking these medications aspirin 81 MG EC tablet calcium carbonate 500 MG chewable tablet glimepiride 4 MG tablet Commonly known as: Amaryl GLUCOSAMINE 1500 COMPLEX PO [employer] Blood Glucose Test test strip Generic drug: glucose blood metoprolol succinate XL 25 MG 24 hr tablet Commonly known as: Toprol-XL Where to Get Your Medications These medications were sent to [facility] [address] [place] [address] (more content not included)...[facility]09-11-2024 History of Present illness Narrative* Karli Gonzalez - 04/08/2024 10:30 AM EDT Nutrition rescreen completed. Chart reviewed. Patient to be monitored and followed by the diet broadcast technician. .BOBBY Dugan * MILDRED Juarez CNP - 04/08/2024 9:35 AM EDT [facility] [place]iology Progress Note HPI / Interval History: Lito Gonzalez is a 73 y.o. female with PMH significant for atrial fibrillation, aortic stenosis, DM, underlying bifascicular block admitted for TAVR, which was performed successfully on 04/06. EP serviceis consulted as patient now with reported complete heart block on telemetry associated with reported syncope per nursing staff. On review of telemetry, patient with periods of both SVT into the 170s and high- grade AV block today with, at one point, 8 consecutive QRS complexes dropped in a row, and with other periods of 4:1 AVblock and 3:1 AV block. Dose of atropine given by nursing staff during a prolonged run of block with improvement in HR. On 04/07/24 she underwent an Gasca dual chamber PPM implant without complications. Today, she is sitting up eating breakfast and denies c/o pain in her left shoulder. Also denies chest pain or palpitations. Assessment/Plan HF NYHA Class [] I [] II [] III [] IV []Unable to assess 1.High degree AV block post TAVR: s/p Gasca dual chamber PPM implant 04/07/24. Post implant instructions reviewed with patient, booklet placed with her belongings and follow up was scheduled. Post implant cxr reveals good lead placement and no pneumothorax. Reviewed with Dr Okeefe. Post implant device check revealed normal function. 2. Paroxysmal atrial fibrillation with RVR: she is not symptomatic. Would increase BB now protectedby PPM back up. Ok to resume Eliquis tomorrow with dinner. Ok to discharge from Card/EP standpoint. Medications: aspirin, 81 mg, Oral, Daily glipiZIDE, 10 mg, Oral, qAM AC losartan, 50 mg, Oral, Daily metoprolol succinate XL, 25 mg, Oral, Daily mupirocin, 1 Application, Nasal, BID pantoprazole, 40 mg, Oral, qAM AC Or pantoprazole (ProtoNix) 40 mg in sodium chloride (PF) 0.9 % 10 mL injection, 40 mg, IntraVENous, qAM AC Infusion Medications: Physical Examination: Vitals: 04/08/24 0544 04/08/24 0600 04/08/24 0700 04/08/24 0800 BP: 157/72 159/70 155/65 BP Location: Right arm Patient Position: Lying Pulse: 91 90 86 90 Resp: (!) 19 Temp: 37.3 C (99.1 F) TempSrc: Temporal SpO2: 97% 94% Weight: 244 lb 11.4 oz (111 kg) Height: Intake/Output Summary (Last 24 hours) at 04/08/2024 0936 Last data filed at 04/08/2024 0913 Gross per 24 hour Intake 370 ml Output 110 ml Net 260 ml Patient Vitals for the past 168 hrs: Weight Weight Method 04/08/24 0600 244 lb 11.4 oz (111 kg) -- 04/07/24 0944 243 lb (110 kg) -- 04/07/24 0539 243 lb 6.2 oz (110 kg) -- 04/06/24 1317 249 lb (113 kg) -- 04/06/24 0922 249 lb (113 kg) Stated Physical Exam Constitutional: NAD Psychiatric: Alert. Medical insight fair Neck: No JVD Respiratory: Lungs are CTA Heart: Tachy reg irreg ; Nl S1 and S2, no murmur, no rub, gallop Abdomen: NABS; soft, non-tender, non-distended Extremities: no LE edema Skin: Warm to touch and well perfused. PPM pocket with mild edema and mild ecchymosis, no hematoma Laboratory Tests: Recent Labs 04/06/24 1422 04/07/24 0007 04/08/24 0035 NA 137 136 135 K 3.4* 4.1 3.9 CL 112* 109* 108* CO2 21* 23 22 BUN 17 20* 18* CREATININE 0.55 0.79 0.74 Recent Labs 04/06/24 1422 04/07/24 0007 04/08/24 0035 WBC 7.2 9.3 10.1 HGB 11.7 13.1 13.5 HCT 36.1 40.5 41.2 MCV 93.8 93.1 93.0 PLT 156 168 144 No results for input(s): CKTOTAL, CKMB, CKMBINDEX, TROPONINI in the last 72 hours. No results for input(s): BNP in the last 72 hours. No results for input(s): TRIG, HDL, LDLCALC, CHOL in the last 72 hours. No results found for: LDLCHOLESTER No results found for: TSH EF BP Date Value Ref Range Status 04/07/2024 66 55 - 100 % Final 04/06/24 TRANSTHORACIC ECHOCARDIOGRAM (TTE) COMPLETE (CONTRAST/BUBBLE/3D PRN) 04/07/2024 11:40 AM (Final) Interpretation Summary Aortic Valve: Marsh Makenzie 3 Ultra bioprosthetic aortic valve with a size of 23mm mm. AV mean gradient is 12 mmHg. No cusp thickening. No cusp calcification. No regurgitation. No paravalvular regurgitation. No stenosis. AV mean gradient is 12 mmHg. Left Ventricle: Left ventricle size is normal. Mildly increased wall thickness. Normal left ventricular systolic function. EF by 2D Simpsons Biplane is 66%. Normal wall motion. Right Ventricle: Right ventricle size is normal. Normal systolic function. Signed by: Smith Nobles MD on 04/07/2024 11:40 AM Other reports reviewed: Cardiac Tests: ECG: ST Tracing reviewed. Telemetry findings reviewed: ST-Afib with RVR EF BP Date Value Ref Range Status 04/07/2024 66 55 - 100 % Final MILDRED Moscoso CNP Date Of Service 04/08/2024 * Jose Herndon MD - 04/08/2024 6:11 AM EDT Images from the original note were not included. [facility] CCU PROGRESS NOTE Patient Name: Lito Gonzalez : 1950 Subjective: Lito Gonzalez is a 73 y.o. female with PMH paroxysmal atrial fibrillation, nonrheumatic aortic valve stenosis, DM, hypertension, RBBB and left posterior fascicular block that presented to [facility] on 04/06/2024 for TAVR procedure. Pre TAVR echo showing calcified AV with severe stenosis, the peak and mean gradients are 69/46 mm Hg, the BENITA 0.6 cm2 with DI 0.19. Patient underwent successful TAVR through right femoral access. 04/06 Post-TAVR Echo showed EF 69%, AV Mean Gradient 4, no valvular regurg. 04/07 TTE showed EF 66%, AV mean gradient 12 mmHg, no regurgitation. Telemetry showed.'s of both SVT into the 170s, high-grade AV block,. 04 S2 1 AV block and 3 is to 1AV block. Dose of atropine was given during prolonged run of block with improvement in HR. Patient denied heart palpitations, chest pain, lightheadedness, prior syncopal episodes. Patient diagnosed with new onset complete heart block and dual chamber PPM placed on 04/07/2024. Currently awaiting CXR and Pacemaker interrogation. Interval History: NAEON. Patient only complains of a dull relapsing and remitting headache, but currently no issues. She denies SOB, CP, n/v/c/d. She denies previous history of HTN. Sating well 96% on RA. Review of Systems: Review of Systems Constitutional: Negative for chills and fever. Respiratory: Negative for shortness of breath. Cardiovascular: Negative for chest pain, palpitations and leg swelling. Gastrointestinal: Negative for abdominal distention, abdominal pain, constipation, diarrhea, nauseaand vomiting. Neurological: Positive for headaches (dull, relapsing and remitting). Negative for dizziness and light-headedness. Inpatient Medications: Scheduled Meds:aspirin, 81 mg, Oral, Daily glipiZIDE, 10 mg, Oral, qAM AC [Held by provider] metoprolol succinate XL, 25 mg, Oral, Daily mupirocin, 1 Application, Nasal, BID pantoprazole, 40 mg, Oral, qAM AC Or pantoprazole (ProtoNix) 40 mg in sodium chloride (PF) 0.9 % 10 mL injection, 40 mg, IntraVENous, qAM AC Continuous Infusions: PRN Meds used in the last 24hr: n/a Objective: Physical Examination: BP 149/71 (BP Location: Right arm, Patient Position: Lying) Pulse 91 Temp 37 C (98.6 F) (Temporal) Resp (!) 26 Ht 4' 11 (1.499 m) Wt 243 lb (110 kg) SpO2 93% BMI 49.08 kg/m Intake/Output Summary (Last 24 hours) at 04/08/2024 0612 Last data filed at 04/08/2024 0141 Gross per 24 hour Intake 370 ml Output 10 ml Net 360 ml Physical Exam Constitutional: General: She is not in acute distress. Appearance: She is obese. She is not ill-appearing. HENT: Head: Normocephalic and atraumatic. Cardiovascular: Rate and Rhythm: Normal rate and regular rhythm. Heart sounds: Normal heart sounds. No murmur heard. Pulmonary: Effort: Pulmonary effort is normal. Breath sounds: Normal breath sounds. No wheezing, rhonchi or rales. Abdominal: General: Abdomen is flat. There is no distension. Palpations: Abdomen is soft. Tenderness: There is no abdominal tenderness. Musculoskeletal: Right lower leg: No edema. Left lower leg: No edema. Skin: General: Skin is warm and dry. Neurological: General: No focal deficit present. Mental Status: She is alert and oriented to person, place, and time. Pertinent Labs: BMP: Lab Results Component Value Date NA 135 04/08/2024 K 3.9 04/08/2024 CL 108 (H) 04/08/2024 CO2 22 04/08/2024 BUN 18 (H) 04/08/2024 CREATININE 0.74 04/08/2024 GLUCOSE 159 (H) 04/08/2024 CALCIUM 9.4 04/08/2024 MG 1.8 04/08/2024 PHOS 3.4 04/08/2024 CBC: Lab Results Component Value Date WBC 10.1 04/08/2024 HGB 13.5 04/08/2024 HCT 41.2 04/08/2024 MCV 93.0 04/08/2024 PLT 144 04/08/2024 Cardiac profile: No results found for: CKTOTAL, CKMB, TROPONINI Coagulation: No results found for: INR, PTT Lipid panel: No results found for: CHOL, HDL, LDL, TRIG Other: No results found for: HGBA1C, TSH Chest Imaging: CXR: Cardiac Studies: Telemetry findings reviewed: few desats on RA o/n, few runs of tachycardia. ECG: Encounter Date: 04/06/24 ECG 12 lead Result Value Heart Rate 104 QRSD Interval 141 QT Interval 362 QTC Interval 477 P [place] 40 QRS [place] 95 T Wave [place] -65 MA Interval 204 Impression Sinus tachycardia RBBB and LPFB Anterior infarct, old Echo: 04/06/24 TRANSTHORACIC ECHOCARDIOGRAM (TTE) COMPLETE (CONTRAST/BUBBLE/3D PRN) 04/07/2024 11:40 AM (Final) Interpretation Summary Aortic Valve: Marsh Makenzie 3 Ultra bioprosthetic aortic valve with a size of 23mm mm. AV mean gradient is 12 mmHg. No cusp thickening. No cusp calcification. No regurgitation. No paravalvular regurgitation. No stenosis. AV mean gradient is 12 mmHg. Left Ventricle: Left ventricle size is normal. Mildly increased wall thickness. Normal left ventricular systolic function. EF by 2D Simpsons Biplane is 66%. Normal wall motion. Right Ventricle: Right ventricle size is normal. Normal systolic function. Signed by: Smith Nobles MD on 04/07/2024 11:40 AM Cath Report: 04/06/24 CARDIAC PROCEDURE 04/06/2024 1:41 PM (Final) Conclusion Successful TAVR with a 23mm Makenzie S3u, via right transfemoral approach TAVR Procedural Report Interventional Cardiologists: -Srinivasa Poon MD -Devaughn Young MD (Fellow) Cardiothoracic Surgeon: -Jayson Key MD Procedure: 1. A 23 MAKENZIE S3 VALVE IMPLANTATION. 2. TRANSFEMORAL TRANSCATHETER AORTIC VALVE REPLACEMENT. Preoperative Diagnosis: Severe and symptomatic aortic stenosis. Postoperative Diagnosis: Severe aortic stenosis. Anesthesia: Conscious Sedation History of Present Illness: This is a very pleasant 73 y.o. female with a history of severe and symptomatic aortic stenosis. her case was discussed in our multidisciplinary valve conference and was felt to be of appropriate candidacy for TAVR. The pros, cons, risks, benefits, and alternatives of transcatheter aortic valve replacement were reviewed with the patient, and questions were answered, she provided informed consent and wished to proceed with the procedure. Description of Procedure: The patient was brought to the operating suite by anesthesia. The patientwas placed under light sedation. The patient was then cleaned, prepped and draped in the normal sterile manner. Access was then gained in the right femoral artery, right radial artery, and right femoral vein. Via the right femoral vein, a 6 [place] sheath was placed and temporary pacing wire was placed into the RV apex with appropriate capture, in addition sterile tubing was attached and given theanesthesia for central access. Via right radial artery, a 6-[place] sheath was placed and the pigtail catheter was placed into the aortic annulus with confirmation the implant angle. Via the right femoral artery, a 6-[place] sheath was placed. The patient was then heparinized. Next, two Perclose devices were used using the pre-close strategy. A Super Stiff wire was then placed through the second Perclose into the descending aorta. Then, a 14-[place] Makenzie E-sheath was introduced over the wire into the descending aorta. The sheath was then flushed. Next, an AL1 catheter and a straight wire were used to cross the aortic valve through the e- sheath. The straight wire was then removed and an Amplatz extra stiff wire (formed into a curve) was placed into the LV apex. Next, the AL1 catheter was removed. Next a 23mm Makenzie S3 valve was then advanced through the sheath into the descending aorta.The valve was then mounted on the balloon, the delivery catheter was flexed and advanced around the aortic arch and across the aortic annulus. The valve was then deployed under rapid pacing. Confirmation of an appropriate implant position and appropriately functioning valve was done using TTE. Next, the delivery catheter, extra stiff wire, and large sheath were removed and the Perclose devices were used for hemostasis. A radial band was used for hemostasis of the additional arterial site. Manual pressure was used for hemostasis of the femoral venous access site. Overall, the patient tolerated the procedure well with minimal blood loss. No immediate complications. The patient will return to the Cardiac Care unit for continued monitoring. It was a pleasure taking care of your patient while hospitalized at [facility]. I will continue to follow along while hospitalized. Please do not hesitate to call with any questions. Signed by: Srinivasa Poon MD on 04/06/2024 1:41 PM Assessment/Plan New onset complete heart block -Per EP, baseline bifascicular block and no episodes of complete heart block after TAVR -Permanent dual PPM placed 04/07/2024 -No anticoagulation for 48 hours [04/07/2024-04/09/2024], SCD's in place -Telemetry monitoring -Daily CBC, BMP -EKG stable -CXR,Pacemaker interrogation today Hx of paroxysmal A.fib Hx of hypertension -patient reported -on metoprolol succinate 25 mg daily home med, resumed 2/2 afib with RVR hx -Overnight BP range 140s-150s systolic -Losartan 50 daily Severe aortic stenosis s/p TAVR -Bioprosthetic aortic valve with size of 23 mm placed -TTE post-TAVR showing bioprosthetic aortic valve with AV mean gradient 4 mmHg, normal LV, EF 69%, no regurg. -Patient started on aspirin 81 Mg. -Strict I/Os, currently charted +3.5L however wt 249 --> 244lbs during stay Diabetes mellitus with hyperglycemia -Home medications glimepiride 4 Mg twice daily, metformin thousand Mg twice daily -Start glipizide 10 Mg daily [substituted for glimepiride] -Continue to monitor blood glucose, consider sliding scale insulin if patient continues to be hyperglycemic. - Goals of Care: Full Code - DVT Prophylaxis: SCDs - GI Prophylaxis: Protonix daily - Diet: Regular, low sodium and potassium - BMI Classification: Body mass index is 49.08 kg/m . - Disposition: Likely discharge home pending Pacemaker interrogation and placement with CXR. Associated attestation - Calvin Barnard MD PhD - 04/08/2024 10:06 AM EDT I, Dr. Barnard, saw and evaluated the patient. I personally obtained the parker and critical portions of the history and physical exam. I reviewed the chart, the Team's documentation, and discussed the patient with the Team. I agree with the Team's medical decision making and have edited the note to reflect my clinical findings and my assessment and plan. DOS 04/08/24 73 yo female s/p TAVR on 04/06 who had bifascicular block prior to procedure. Also hx of PAF. Patient developed prolonged AV block now s/p PPM placement. CXR pending and interrogation of PPM BP treated with losartan EF preserved Ok to d/c later today, d/w patient meds and f/u * MILDRED Maza CNP - 04/07/2024 11:57 AM EDT Spoke with Mr. Gonzalez regarding patient status. Questions answered. He will be here around 1-2 p today. He is aware that she will likely be going for pacemaker here shortly. * MILDRED Maza CNP - 04/07/2024 10:17 AM EDT [facility] [place]rophysiology Progress Note HPI / Interval History: Ms Gonzalez is POD 1 TAVR. She denies any chest pain, dyspnea, palpitations, groin complaints. Moxyes90 am this morning she intermittent high degree block. Prior to that she had sinus tachycardia witha HR of 106. Assessment/Plan Severe . POD 1 TAVR. Echo this am. Continue ASA. High degree AV block. Will hold beta liliya, consult EP HTN. BP controlled DM. Her blood sugars have been elevated this admission, requiring insulin. Glucotrol was resumed this am before high degree AV block recognized. Will monitor for needs, continue glucose checks 5. Paroxysmal atrial fibrillation. She is unaware of this diagnosis, she has not been on OAC to herknowledge. CHADSVASC= 4. Will discuss with Dr. Poon/Dr. Hubbard Medications: aspirin, 81 mg, Oral, Daily atropine, , , atropine, , , glipiZIDE, 10 mg, Oral, qAM AC [Held by provider] metoprolol succinate XL, 25 mg, Oral, Daily mupirocin, 1 Application, Nasal, BID sodium chloride 0.9%, 10 mL, IntraVENous, 2 times per day Physical Examination: Vitals: 04/07/24 0945 04/07/24 0946 04/07/24 0947 04/07/24 0949 BP: 105/59 BP Location: Patient Position: Pulse: 110 (!) 24 (!) 49 59 Resp: (!) 28 20 (!) 31 Temp: TempSrc: SpO2: 94% 94% 96% Weight: Height: Intake/Output Summary (Last 24 hours) at 04/07/2024 1127 Last data filed at 04/07/2024 0608 Gross per 24 hour Intake 1240 ml Output 30 ml Net 1210 ml Patient Vitals for the past 168 hrs: Weight Weight Method 04/07/24 0944 243 lb (110 kg) -- 04/07/24 0539 243 lb 6.2 oz (110 kg) -- 04/06/24 1317 249 lb (113 kg) -- 04/06/24 0922 249 lb (113 kg) Stated Physical Exam Constitutional: Appearance: Normal appearance. She is obese. HENT: Head: Normocephalic and atraumatic. Nose: Nose normal. Eyes: Conjunctiva/sclera: Conjunctivae normal. Pupils: Pupils are equal, round, and reactive to light. Cardiovascular: Rate and Rhythm: Normal rate and regular rhythm. Pulmonary: Effort: Pulmonary effort is normal. Breath sounds: Normal breath sounds. Abdominal: General: Bowel sounds are normal. Palpations: Abdomen is soft. Musculoskeletal: General: Normal range of motion. Cervical back: Normal range of motion and neck supple. Right lower leg: Edema present. Left lower leg: Edema present. Skin: General: Skin is warm and dry. Comments: Right wrist and groin soft without bleeding or hematoma Neurological: General: No focal deficit present. Mental Status: She is alert and oriented to person, place, and time. Psychiatric: Mood and Affect: Mood normal. Thought Content: Thought content normal. Laboratory Tests: Recent Labs 04/06/24 1422 04/07/24 000 NA 137 136 K 3.4* 4.1 CL 112* 109* CO2 21* 23 BUN 17 20* CREATININE 0.55 0.79 Recent Labs 04/06/24 1422 04/07/24 0007 WBC 7.2 9.3 HGB 11.7 13.1 HCT 36.1 40.5 MCV 93.8 93.1 PLT 156 168 No results for input(s): CKTOTAL, CKMB, CKMBINDEX, TROPONINI in the last 72 hours. No results for input(s): BNP in the last 72 hours. No results for input(s): TRIG, HDL, LDLCALC, CHOL in the last 72 hours. No results found for: LDLCHOLESTER No results found for: TSH EF BP Date Value Ref Range Status 04/07/2024 66 55 - 100 % Preliminary 04/06/24 TRANSTHORACIC ECHOCARDIOGRAM (TTE) COMPLETE (CONTRAST/BUBBLE/3D PRN) (Preliminary) This result has not been signed. Information might be incomplete. Interpretation Summary Aortic Valve: Marsh Makenzie 3 Ultra bioprosthetic aortic valve with a size of 23mm mm. AV mean gradient is 12 mmHg. No cusp thickening. No cusp calcification. No regurgitation. No stenosis. AV peak gradient is 21 mmHg. AV peak velocity is 2.3 m/s. LVOT:AV VTI Index is 0.58. Left Ventricle: Left ventricle size is normal. Mildly increased wall thickness. Normal left ventricular systolic function. EF by 2D Simpsons Biplane is 66%. Normal wall motion. Right Ventricle: Right ventricle size is normal. Normal systolic function. Aorta: Normal sized annulus and sinuses of Valsalva. Mildly dilated ascending aorta. Ao ascending diameter is 3.5 cm. Other reports reviewed: Cardiac Tests: ECG: SR with RBBB, LPFB Tracing reviewed. Telemetry findings reviewed: see HPI EF BP Date Value Ref Range Status 04/07/2024 66 55 - 100 % Preliminary MILDRED Maza CNP Date Of Service 04/07/2024 documented in this [facility]09-11-2024 [facility] Cardiology /Electrophysiology Progress Note HPI / Interval History: Lito Gonzalez is a 73 y.o. female with PMH significant for atrial fibrillation, aortic stenosis, DM, underlying bifascicular block admitted for TAVR, which was performed successfully on 04/06. EP service is consulted as patient now with reported complete heart block on telemetry associated with reported syncope per nursing staff. On review of telemetry, patient with periods of both SVT into the 170s and high-grade AV block today with, at one point, 8 consecutive QRS complexes dropped in a row, and with other periods of 4:1 AV block and 3:1 AV block. Dose of atropine given by nursing staff during a prolonged run of block with improvement in HR. On 04/07/24 she underwent an Gasca dual chamber PPM implant without complications. Today, she is sitting up eating breakfast and denies c/o pain in her left shoulder. Also denies chest pain or palpitations. Assessment/Plan HF NYHA Class [] I [] II [] III [] IV []Unable to assess 1.High degree AV block post TAVR: s/p Gasca dual chamber PPM implant 04/07/24. Post implant instructions reviewed with patient, booklet placed with her belongings and follow up was scheduled. Post implant cxr reveals good lead placement and no pneumothorax. Reviewed with Dr Okeefe. Post implant device check revealed normal function. 2. Paroxysmal atrial fibrillation with RVR: she is not symptomatic. Would increase BB now protected by PPM back up. Ok to resume Eliquis tomorrow with dinner. Ok to discharge from Card/EP standpoint. Medications: aspirin, 81 mg, Oral, Daily glipiZIDE, 10 mg, Oral, qAM AC losartan, 50 mg, Oral, Daily metoprolol succinate XL, 25 mg, Oral, Daily mupirocin, 1 Application, Nasal, BID pantoprazole, 40 mg, Oral, qAM AC Or pantoprazole (ProtoNix) 40 mg in sodium chloride (PF) 0.9 % 10 mL injection, 40 mg, IntraVENous, qAM AC Infusion Medications: Physical Examination: Vitals: 04/08/24 0544 04/08/24 0600 04/08/24 0700 04/08/24 0800 BP: 157/72 159/70 155/65 BP Location: Right arm Patient Position: Lying Pulse: 91 90 86 90 Resp: (!) Temp: 37.3 ?C (99.1 ?F) TempSrc: Temporal SpO2: 97% 94% Weight: 244 lb 11.4 oz (111 kg) Height: Intake/Output Summary (Last 24 hours) at 04/08/2024 0936 Last data filed at 04/08/2024 0913 Gross per 24 hour Intake 370 ml Output 110 ml Net 260 ml Patient Vitals for the past 168 hrs: Weight Weight Method 04/08/24 0600 244 lb 11.4 oz (111 kg) -- 04/07/24 0944 243 lb (110 kg) -- 04/07/24 0539 243 lb 6.2 oz (110 kg) -- 04/06/24 1317 249 lb (113 kg) -- 04/06/24 0922 249 lb (113 kg) Stated Physical Exam Constitutional: NAD Psychiatric: Alert. Medical insight fair Neck: No JVD Respiratory: Lungs are CTA Heart: Tachy reg irreg ; Nl S1 and S2, no murmur, no rub, gallop Abdomen: NABS; soft, non-tender, non-distended Extremities: no LE edema Skin: Warm to touch and well perfused. PPM pocket with mild edema and mild ecchymosis, no hematoma Laboratory Tests: Recent Labs 04/06/24 1422 04/07/24 0007 04/08/24 0035 NA 137 136 135 K 3.4* 4.1 3.9 CL 112* 109* 108* CO2 21* 23 22 BUN 17 20* 18* CREATININE 0.55 0.79 0.74 Recent Labs 04/06/24 1422 04/07/24 0007 04/08/24 0035 WBC 7.2 9.3 10.1 HGB 11.7 13.1 13.5 HCT 36.1 40.5 41.2 MCV 93.8 93.1 93.0 PLT 156 168 144 No results for input(s): CKTOTAL, CKMB, CKMBINDEX, TROPONINI in the last 72 hours. No results for input(s): BNP in the last 72 hours. No results for input(s): TRIG, HDL, LDLCALC, CHOL in the last 72 hours. No results found for: LDLCHOLESTER No results found for: TSH EF BP Date Value Ref Range Status 04/07/2024 66 55 - 100 % Final 04/06/24 TRANSTHORACIC ECHOCARDIOGRAM (TTE) COMPLETE (CONTRAST/BUBBLE/3D PRN) 04/07/2024 11:40 AM (Final) Interpretation Summary Aortic Valve: Marsh Makenzie 3 Ultra bioprosthetic aortic valve with a size of 23mm mm. AV mean gradient is 12 mmHg. No cusp thickening. No cusp calcification. No regurgitation. No paravalvular regurgitation. No stenosis. AV mean gradient is 12 mmHg. Left Ventricle: Left ventricle size is normal. Mildly increased wall thickness. Normal left ventricular systolic function. EF by 2D Simpsons Biplane is 66%. Normal wall motion. Right Ventricle: Right ventricle size is normal. Normal systolic function. Signed by: Smith Nobles MD on 04/07/2024 11:40 AM Other reports reviewed: Cardiac Tests: ECG: ST Tracing reviewed. Telemetry findings reviewed: ST-Afib with RVR EF BP Date Value Ref Range Status 04/07/2024 66 55 - 100 % Final Susie Blas, LAB SUPPORT TECH - WALL MAN Date Of Service 04/08/2024[facility]10[facility] Plan of care note* Care Plan - Shasta Badillo RN - 04/07/2024 6:09 PM EDT Problem: Cardiovascular - Adult Goal: Maintains optimal cardiac output and hemodynamic stability Outcome: Progressing Goal: Absence of cardiac dysrhythmias or at baseline Outcome: Progressing Problem: Hematologic - Adult Goal: Maintains hematologic stability Outcome: Progressing [id number] Miscellaneous Notes* Care Plan - Shasta Badillo RN - 04/07/2024 6:09 PM EDT Problem: Cardiovascular - Adult Goal: Maintains optimal cardiac output and hemodynamic stability Outcome: Progressing Goal: Absence of cardiac dysrhythmias or at baseline Outcome: Progressing Problem: Hematologic - Adult Goal: Maintains hematologic stability Outcome: Progressing * Care Coordination - Breonna Jimenez RN - 04/07/2024 2:40 PM EDT Care Managment Initial Assessment Date: 04/07/2024 Patient Name: Lito Gonzalez : 1950 Patient Information Source of Information: Patient Cognition/Language: WFL - Within Functional Limits Permission given to speak with 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 utilities 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 as indicated: Yes Confirmation of Payer with patient/family: Yes Payer Name: [employer] [place]: No Confirmation of Primary Care Physician: Confirmed PCP Name: Abby Mcclellan Seen in last 2 years?: Yes Primary Caregiver: Self If assistance needed, confirmed caregiver ready, willing and able to care for patient at discharge: Confirmed with: Living Arrangements Current Residence: House Number of Floors 2 Number of Entry Steps: Bed/Bath Levels: Both second floor Facility: Facility Name: Plan to Return: Lives with: Spouse/significant other Support Systems: Spouse/significant other, Family members Activities of Daily Living Ambulation: Assistance (using a FWW) Bathing/Dressing: Independent Elimination/Continence/Toileting: Independent Feeding: Independent Who Assists with Activities of Daily Living: Instrumental Activities of Daily Living Prescription Coverage: Yes [facility] Medication Management: Independent Transportation/Shopping: Independent Transportation Mode: Car Needs Assistance with Transportation at Discharge: No Meal Preparation: Independent Laundry/Cleaning: Independent Finances/Bill Paying: Independent Communication: Independent Types of Care Services/Equipment Utilized Care Services: Dialysis Type: Durable Medical Equipment: Walker Patient's Goal/Discharge Plan Patient expects to be discharged to: home Discharge Planning Actions: No needs identified Patient's Choice Rights and [employer] and Collaborative Relationships Disclosed as Indicated for Post-Acute Care: Interdisciplinary Team Engagement: Social Work Referral for: Additional Information: Patient admitted to [facility] ICU s/p TAVR complicated by CHB today requiring PPM. Spoke with patient and at bedside, introduced self and role. Patient from home with , is using a walker for ambulation otherwise is independent, has PCP and prescription coverage, willhave a ride home and denies discharge needs. Breonna Jimenez RN * Care Plan - Irma Shane RN - 04/06/2024 7:11 PM EDT The patient is Moderately Unstable - Medium risk of patient condition declining or worsening The patient's goals for the shift include go home The clinical goals for the shift include hemodynamic stability Over the shift, the patient did not make progress toward the following goals. Barriers to progression include pt with poor short term memory, stable. Recommendations to address these barriers includecontinue to reinforce and monitor. * Perioperative Nursing Note - Tamela Lai RN - 04/06/2024 9:[address] Hernandez made aware of MBS 253 new orders received. documented in this [facility]09-10-2024 Note* Care Coordination - Breonna Jimenez RN - 04/07/2024 2:40 PM EDT Care Managment Initial Assessment Date: 04/07/2024 Patient Name: Lito Gonzalez : 1950 Patient Information Source of Information: Patient Cognition/Language: WFL - Within Functional Limits Permission given to speak with 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 utilities 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 as indicated: Yes Confirmation of Payer with patient/family: Yes Payer Name: [employer] : No Confirmation of Primary Care Physician: Confirmed PCP Name: Abby Vy Seen in last 2 years?: Yes Primary Caregiver: Self If assistance needed, confirmed caregiver ready, willing and able to care for patient at discharge: Confirmed with: Living Arrangements Current Residence: House Number of Floors 2 Number of Entry Steps: Bed/Bath Levels: Both second floor Facility: Facility Name: Plan to Return: Lives with: Spouse/significant other Support Systems: Spouse/significant other, Family members Activities of Daily Living Ambulation: Assistance (using a FWW) Bathing/Dressing: Independent Elimination/Continence/Toileting: Independent Feeding: Independent Who Assists with Activities of Daily Living: Instrumental Activities of Daily Living Prescription Coverage: Yes [facility] Medication Management: Independent Transportation/Shopping: Independent Transportation Mode: Car Needs Assistance with Transportation at Discharge: No Meal Preparation: Independent Laundry/Cleaning: Independent Finances/Bill Paying: Independent Communication: Independent Types of Care Services/Equipment Utilized Care Services: Dialysis Type: Durable Medical Equipment: Walker Patient's Goal/Discharge Plan Patient expects to be discharged to: home Discharge Planning Actions: No needs identified Patient's Choice Rights and [employer] and Collaborative Relationships Disclosed as Indicated for Post-Acute Care: Interdisciplinary Team Engagement: Social Work Referral for: Additional Information: Patient admitted to [facility] ICU s/p TAVR complicated by CHB today requiring PPM. Spoke with patient and at bedside, introduced self and role. Patient from home with , is using a walker for ambulation otherwise is independent, has PCP and prescription coverage, willhave a ride home and denies discharge needs. Breonna Jimenez RN [id number] [facility]* Care Coordination - Breonna Jimenez RN - 04/07/2024 2:40 PM EDT Care Managment Initial Assessment Date: 04/07/2024 Patient Name: Lito Gonzalez : 1950 Patient Information Source of Information: Patient Cognition/Language: WFL - Within Functional Limits Permission given to speak with 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 utilities 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 as indicated: Yes Confirmation of Payer with patient/family: Yes Payer Name: [employer] [place]: No Confirmation of Primary Care Physician: Confirmed PCP Name: Abby Mcclellan Seen in last 2 years?: Yes Primary Caregiver: Self If assistance needed, confirmed caregiver ready, willing and able to care for patient at discharge: Confirmed with: Living Arrangements Current Residence: House Number of Floors 2 Number of Entry Steps: Bed/Bath Levels: Both second floor Facility: Facility Name: Plan to Return: Lives with: Spouse/significant other Support Systems: Spouse/significant other, Family members Activities of Daily Living Ambulation: Assistance (using a FWW) Bathing/Dressing: Independent Elimination/Continence/Toileting: Independent Feeding: Independent Who Assists with Activities of Daily Living: Instrumental Activities of Daily Living Prescription Coverage: Yes [facility]acy Used[facility] Medication Management: Independent Transportation/Shopping: Independent Transportation Mode: Car Needs Assistance with Transportation at Discharge: No Meal Preparation: Independent Laundry/Cleaning: Independent Finances/Bill Paying: Independent Communication: Independent Types of Care Services/Equipment Utilized Care Services: Dialysis Type: Durable Medical Equipment: Walker Patient's Goal/Discharge Plan Patient expects to be discharged to: home Discharge Planning Actions: No needs identified Patient's Choice Rights and [employer] and Collaborative Relationships Disclosed as Indicated for Post-Acute Care: Interdisciplinary Team Engagement: Social Work Referral for: Additional Information: Patient admitted to [facility] ICU s/p TAVR complicated by CHB today requiring PPM. Spoke with patient and at bedside, introduced self and role. Patient from home with , is using a walker for ambulation otherwise is independent, has PCP and prescription coverage, willhave a ride home and denies discharge needs. Breonna Jimenez RN Pj [id number] Note Attestation signed by Calvin Barnard MD PhD at 04/21/2024 10:01 AM I, Dr. Barnard, saw and evaluated the patient. I personally obtained the parker and critical portions of the history and physical exam. I reviewed the chart, the Team's documentation, and discussed the patient with the Team. I agree with the Team's medical decision making and have edited the note to reflect my clinical findings and my assessment and plan. 73 yo female with severe s/p TAVR with CHB leading to admission to CCU and placement of PPM. EF preserved. Patient had RBBB and LAHB at baseline. [facility] [place] [facility] CCU HISTORY & PHYSICAL Patient Name: Lito Gonzalez : 1950 Date of Admission: 04/06/2024 8:27 AM Established ornamenter hand: [facility] Subjective: Chief Complaint: Complete heart block, severe POD 1 TAVR History of Present Illness: Lito Gonzalez is a 73 y.o. female with PMH paroxysmal atrial fibrillation, nonrheumatic aortic valve stenosis, DM, hypertension, RBBB and left posterior fascicular block that presented to [facility] on 04/06/2024 for TAVR procedure. Pre TAVR echo showing calcified AV with severe stenosis, the peak and mean gradients are 69/46 mm Hg, the BENITA 0.6 cm2 with DI 0.19. Patient underwent successful TAVR through right femoral access. Patient transferred to HLU for further monitoring. Electrophysiology consulted due to patient having reported complete heart block on telemetry associated with reported syncope per nursing staff. Telemetry showed.'s of both SVT into the 170s, high-grade AV block. Dose of atropine was given by nursing staff during prolonged run of block with improvement in HR. Patient denied any syncopal episode. Patient denied heart palpitations, chest pain, lightheadedness, prior syncopal episodes. Patient diagnosed with new onset complete heart block and dual PPM placed on 04/07/2024. On evaluation at bedside, patient alert, denied lightheadedness, chest pain, visual disturbance, palpitations, abdominal pain, difficulty urinating, headache. Patient stated she was feeling tired. Labs significant for hyperglycemia [208]. Review of Systems: Review of Systems Constitutional: Positive for fatigue. HENT: Negative for sore throat. Eyes: Negative for visual disturbance. Respiratory: Negative for chest tightness and shortness of breath. Cardiovascular: Negative for chest pain and palpitations. Gastrointestinal: Negative for abdominal pain, nausea and vomiting. Genitourinary: Negative for difficulty urinating. Neurological: Negative for syncope, light-headedness and headaches. Psychiatric/Behavioral: Negative for agitation. Past Medical History: Past Medical History: Diagnosis Date Atrial fibrillation (HCC) Diabetes mellitus (HCC) Heart valve disease Hypertension Past Surgical History: Past Surgical History: Procedure Laterality Date APPENDECTOMY CARDIAC CATHETERIZATION N/A 04/06/2024 Performed by Srinivasa Poon MD at [facility] OR HYSTERECTOMY TOTAL HIP ARTHROPLASTY Right 12/02/2019 TOTAL KNEE ARTHROPLASTY Left 01/31/2009 TOTAL KNEE ARTHROPLASTY Right Family History: Family History Problem Relation Name Age of Onset Breast cancer Mother COPD Father Coronary artery disease Father Social History: Social History Tobacco Use Smoking status: Never Smokeless tobacco: Never Substance Use Topics Alcohol use: Never Allergies: Allergies Allergen Reactions Atorvastatin Rash red itchy rash around neck--resolved after stopping med; hands froze with stiffness that started a week after taking a couple pills--resolving Medications: Current Outpatient Medications Medication Instructions aspirin 81 mg, Oral, Daily calcium carbonate 500 mg, Oral, Daily glimepiride (Amaryl) 4 MG tablet 1 tablet, Oral, 2 times daily with meals Vddjntpejpf-Zdvgyjpbx-Pch C-Mn (GLUCOSAMINE 1500 COMPLEX PO) Oral [employer] Blood Glucose Test test strip Test blood sugar(s) 1 time daily as directed. Dx: Type 2 DM - Controlled E11.9 Insulin: No metFORMIN (Glucophage) 500 MG tablet 2 tablets, Oral, 2 times daily with meals metoprolol succinate XL (TOPROL-XL) 25 mg, Oral, Daily Objective: Physical Examination: BP 143/57 (BP Location: Left arm, Patient Position: Lying) Pulse 96 Temp 37.2 ?C (98.9 ?F) (Temporal) Resp 23 Ht 1.499 m (4' 11) Wt 110 kg (243 lb) SpO2 93% BMI 49.08 kg/m? Intake/Output Summary (Last 24 hours) at 04/07/2024 1352 Last data filed at 04/07/2024 1337 Gross per 24 hour Intake 480 ml Output 10 ml Net 470 ml Physical Exam Vitals reviewed. Constitutional: General: She is not in acute distress. Appearance: She is not diaphoretic. HENT: Head: Normocephalic. Mouth/Throat: Mouth: Mucous membranes are dry. Eyes: Extraocular Mo (more content not included)...[facility]09-10-2024 Consult note* Eric Okeefe MD - 04/07/2024 11:59 AM EDT [facility] [place] [facility]rophysiology Consult Note Reason for Consult/Chief Complaint: Complete heart block Referring provider: Ayah Established ornamenter hand: Ayah History of Present Illness: Lito Gonzalez is a 73 y.o. female who was referred urgently by structural heart due to episode of complete heart block. She has a history of right bundle branch block and left posterior fascicular block but denies prior episodes of bradycardia or syncope. She did states she has had prior episodes of tachycardia episodes. She apparently carries a diagnosis of atrial fibrillation but from the outsidecardiology I do not have access to EKGs demonstrating his arrhythmia. She has critical aortic stenosis and yesterday had TAVR. Today she had multiple episodes of complete heart block once associated with loss of consciousness briefly. She denies prior history of syncope before the TAVR procedure. Assessment/Plan HF NYHA Class [] I [] II [] III [] IV []Unable to assess The patient new onset complete heart block. She has baseline bifascicular block and no episodes of complete heart block after TAVR. The risks and benefits of a permanent pacemaker were discussed and she agrees to proceed. Medications: aspirin, 81 mg, Oral, Daily atropine, , , glipiZIDE, 10 mg, Oral, qAM AC [Held by provider] metoprolol succinate XL, 25 mg, Oral, Daily mupirocin, 1 Application, Nasal, BID sodium chloride 0.9%, 10 mL, IntraVENous, 2 times per day Infusion Medications: Physical Examination: Vitals: 04/07/24 0945 04/07/24 0946 04/07/24 0947 04/07/24 0949 BP: 105/59 BP Location: Patient Position: Pulse: 110 (!) 24 (!) 49 59 Resp: (!) 28 20 (!) 31 Temp: TempSrc: SpO2: 94% 94% 96% Weight: Height: Intake/Output Summary (Last 24 hours) at 04/07/2024 1200 Last data filed at 04/07/2024 0608 Gross per 24 hour Intake 1240 ml Output 30 ml Net 1210 ml Wt Readings from Last 3 Encounters: 04/07/24 243 lb (110 kg) 03/10/24 249 lb 1.9 oz (113 kg) 03/10/24 250 lb (113 kg) Physical Exam Constitutional: Appearance: Normal appearance. She is obese. She is not ill-appearing. Eyes: General: No scleral icterus. Extraocular Movements: Extraocular movements intact. Pupils: Pupils are equal, round, and reactive to light. Cardiovascular: Rate and Rhythm: Regular rhythm. Tachycardia present. Heart sounds: No gallop. Pulmonary: Effort: Pulmonary effort is normal. Breath sounds: Normal breath sounds. Musculoskeletal: General: No swelling. Skin: General: Skin is warm and dry. Neurological: Mental Status: She is alert and oriented to person, place, and time. Psychiatric: Mood and Affect: Mood normal. Thought Content: Thought content normal. Laboratory Tests: Recent Labs 04/06/24142104/07/246 NA 137 136 K 3.4* 4.1 CL 112* 109* CO2 21* 23 BUN 17 20* CREATININE 0.55 0.79 EGFR >90.0 78.1 No results for input(s): CKTOTAL, CKMB, CKMBINDEX, TROPONINI in the last 72 hours. Recent Labs 04/06/24142104/07/24 000 WBC 7.2 9.3 HGB 11.7 13.1 HCT 36.1 40.5 MCV 93.8 93.1 PLT 156 168 No results found for: HGBA1C No results found for: TSH No results found for: CHOL No results found for: HDL No results found for: LDLCALC No results found for: TRIG No results found for: CHOLHDL No results found for: LDLCHOLESTER No results for input(s): BNP in the last 72 hours. No results for input(s): INR in the last 72 hours. Results from last 7 days Lab Units 04/01/24 0000 AST U/L 21 ALT U/L 26 Cardiac Tests Personally Reviewed: Last EKG 04/06/24 ECG 12-LEAD (Preliminary) This result has not been signed. Information might be incomplete. Impression Sinus tachycardia RBBB and LPFB Nonspecific repol abnormality, lateral leads Telemetry findings: Sinus rhythm with multiple episodes of complete heart block Reports reviewed: Last Echo 04/06/24 TRANSTHORACIC ECHOCARDIOGRAM (TTE) COMPLETE (CONTRAST/BUBBLE/3D PRN) 04/07/2024 11:40 AM (Final) Interpretation Summary Aortic Valve: Marsh Makenzie 3 Ultra bioprosthetic aortic valve with a size of 23mm mm. AV mean gradient is 12 mmHg. No cusp thickening. No cusp calcification. No regurgitation. No paravalvular regurgitation. No stenosis. AV mean gradient is 12 mmHg. Left Ventricle: Left ventricle size is normal. Mildly increased wall thickness. Normal left ventricular systolic function. EF by 2D Simpsons Biplane is 66%. Normal wall motion. Right Ventricle: Right ventricle size is normal. Normal systolic function. Signed by: Smith Nobles MD on 04/07/2024 11:40 AM Last Cath 04/06/24 CARDIAC PROCEDURE 04/06/2024 1:41 PM (Final) Conclusion Successful TAVR with a 23mm Makenzie S3u, via right transfemoral approach TAVR Procedural Report Interventional Cardiologists: -Srinivasa Poon MD -Devaughn Young MD (Fellow) Cardiothoracic Surgeon: -Jayson Key MD Procedure: 1. A 23 MAKENZIE S3 VALVE IMPLANTATION. 2. TRANSFEMORAL TRANSCATHETER AORTIC VALVE REPLACEMENT. Preoperative Diagnosis: Severe and symptomatic aortic stenosis. Postoperative Diagnosis: Severe aortic stenosis. Anesthesia: Conscious Sedation History of Present Illness: This is a very pleasant 73 y.o. female with a history of severe and symptomatic aortic stenosis. her case was discussed in our multidisciplinary valve conference and was felt to be of appropriate candidacy for TAVR. The pros, cons, risks, benefits, and alternatives of transcatheter aortic valve replacement were reviewed with the patient, and questions were answered, she provided informed consent and wished to proceed with the procedure. Description of Procedure: The patient was brought to the operating suite by anesthesia. The patientwas placed under light sedation. The patient was then cleaned, prepped and draped in the normal sterile manner. Access was then gained in the right femoral artery, right radial artery, and right femoral vein. Via the right femoral vein, a 6 [place] sheath was placed and temporary pacing wire was placed into the RV apex with appropriate capture, in addition sterile tubing was attached and given theanesthesia for central access. Via right radial artery, a 6-[place] sheath was placed and the pigtail catheter was placed into the aortic annulus with confirmation the implant angle. Via the right femoral artery, a 6-[place] sheath was placed. The patient was then heparinized. Next, two Perclose devices were used using the pre-close strategy. A Super Stiff wire was then placed through the second Perclose into the descending aorta. Then, a 14-[place] Makenzie E-sheath was introduced over the wire into the descending aorta. The sheath was then flushed. Next, an AL1 catheter and a straight wire were used to cross the aortic valve through the e- sheath. The straight wire was then removed and an Amplatz extra stiff wire (formed into a curve) was placed into the LV apex. Next, the AL1 catheter was removed. Next a 23mm Makenzie S3 valve was then advanced through the sheath into the descending aorta.The valve was then mounted on the balloon, the delivery catheter was flexed and advanced around the aortic arch and across the aortic annulus. The valve was then deployed under rapid pacing. Confirmation of an appropriate implant position and appropriately functioning valve was done using TTE. Next, the delivery catheter, extra stiff wire, and large sheath were removed and the Perclose devices were used for hemostasis. A radial band was used for hemostasis of the additional arterial site. Manual pressure was used for hemostasis of the femoral venous access site. Overall, the patient tolerated the procedure well with minimal blood loss. No immediate complications. The patient will return to the Cardiac Care unit for continued monitoring. It was a pleasure taking care of your patient while hospitalized at [facility]. I will continue to follow along while hospitalized. Please do not hesitate to call with any questions. Signed by: Srinivasa Poon MD on 04/06/2024 1:41 PM EF BP Date Value Ref Range Status 04/07/2024 66 55 - 100 % Final Eric Okeefe MD DATE of SERVICE: 04/07/2024 [facility] [employer] Work Phone: 1(913) 395-311409-10-2024 Consult note* Eric Okeefe MD - 04/07/2024 11:59 AM EDT [facility] [place] [facility]Electrophysiology Consult Note Reason for Consult/Chief Complaint: Complete heart block Referring provider: Ayah Established ornamenter hand: Ayah History of Present Illness: Lito Gonzalez is a 73 y.o. female who was referred urgently by structural heart due to episode of complete heart block. She has a history of right bundle branch block and left posterior fascicular block but denies prior episodes of bradycardia or syncope. She did states she has had prior episodes of tachycardia episodes. She apparently carries a diagnosis of atrial fibrillation but from the outsidecardiology I do not have access to EKGs demonstrating his arrhythmia. She has critical aortic stenosis and yesterday had TAVR. Today she had multiple episodes of complete heart block once associated with loss of consciousness briefly. She denies prior history of syncope before the TAVR procedure. Assessment/Plan HF NYHA Class [] I [] II [] III [] IV []Unable to assess The patient new onset complete heart block. She has baseline bifascicular block and no episodes of complete heart block after TAVR. The risks and benefits of a permanent pacemaker were discussed and she agrees to proceed. Medications: aspirin, 81 mg, Oral, Daily atropine, , , glipiZIDE, 10 mg, Oral, qAM AC [Held by provider] metoprolol succinate XL, 25 mg, Oral, Daily mupirocin, 1 Application, Nasal, BID sodium chloride 0.9%, 10 mL, IntraVENous, 2 times per day Infusion Medications: Physical Examination: Vitals: 04/07/24 0945 04/07/24 0946 04/07/24 0947 04/07/24 0949 BP: 105/59 BP Location: Patient Position: Pulse: 110 (!) 24 (!) 49 59 Resp: (!) 28 20 (!) 31 Temp: TempSrc: SpO2: 94% 94% 96% Weight: Height: Intake/Output Summary (Last 24 hours) at 04/07/2024 1200 Last data filed at 04/07/2024 0608 Gross per 24 hour Intake 1240 ml Output 30 ml Net 1210 ml Wt Readings from Last 3 Encounters: 04/07/24 243 lb (110 kg) 03/10/24 249 lb 1.9 oz (113 kg) 03/10/24 250 lb (113 kg) Physical Exam Constitutional: Appearance: Normal appearance. She is obese. She is not ill-appearing. Eyes: General: No scleral icterus. Extraocular Movements: Extraocular movements intact. Pupils: Pupils are equal, round, and reactive to light. Cardiovascular: Rate and Rhythm: Regular rhythm. Tachycardia present. Heart sounds: No gallop. Pulmonary: Effort: Pulmonary effort is normal. Breath sounds: Normal breath sounds. Musculoskeletal: General: No swelling. Skin: General: Skin is warm and dry. Neurological: Mental Status: She is alert and oriented to person, place, and time. Psychiatric: Mood and Affect: Mood normal. Thought Content: Thought content normal. Laboratory Tests: Recent Labs 04/06/24 1422 04/07/24 0007 NA 137 136 K 3.4* 4.1 CL 112* 109* CO2 21* 23 BUN 17 20* CREATININE 0.55 0.79 EGFR >90.0 78.1 No results for input(s): CKTOTAL, CKMB, CKMBINDEX, TROPONINI in the last 72 hours. Recent Labs 04/06/24 1422 04/07/24 0007 WBC 7.2 9.3 HGB 11.7 13.1 HCT 36.1 40.5 MCV 93.8 93.1 PLT 156 168 No results found for: HGBA1C No results found for: TSH No results found for: CHOL No results found for: HDL No results found for: LDLCALC No results found for: TRIG No results found for: CHOLHDL No results found for: LDLCHOLESTER No results for input(s): BNP in the last 72 hours. No results for input(s): INR in the last 72 hours. Results from last 7 days Lab Units 04/01/24 0000 AST U/L 21 ALT U/L 26 Cardiac Tests Personally Reviewed: Last EKG 04/06/24 ECG 12-LEAD (Preliminary) This result has not been signed. Information might be incomplete. Impression Sinus tachycardia RBBB and LPFB Nonspecific repol abnormality, lateral leads Telemetry findings: Sinus rhythm with multiple episodes of complete heart block Reports reviewed: Last Echo 04/06/24 TRANSTHORACIC ECHOCARDIOGRAM (TTE) COMPLETE (CONTRAST/BUBBLE/3D PRN) 04/07/2024 11:40 AM (Final) Interpretation Summary Aortic Valve: Marsh Makenzie 3 Ultra bioprosthetic aortic valve with a size of 23mm mm. AV mean gradient is 12 mmHg. No cusp thickening. No cusp calcification. No regurgitation. No paravalvular regurgitation. No stenosis. AV mean gradient is 12 mmHg. Left Ventricle: Left ventricle size is normal. Mildly increased wall thickness. Normal left ventricular systolic function. EF by 2D Simpsons Biplane is 66%. Normal wall motion. Right Ventricle: Right ventricle size is normal. Normal systolic function. Signed by: Smith Nobles MD on 04/07/2024 11:40 AM Last Cath 04/06/24 CARDIAC PROCEDURE 04/06/2024 1:41 PM (Final) Conclusion Successful TAVR with a 23mm Makenzie S3u, via right transfemoral approach TAVR Procedural Report Interventional Cardiologists: -Srinivasa Poon MD -Devaughn Young MD (Fellow) Cardiothoracic Surgeon: -Jayson Key MD Procedure: 1. A 23 MAKENZIE S3 VALVE IMPLANTATION. 2. TRANSFEMORAL TRANSCATHETER AORTIC VALVE REPLACEMENT. Preoperative Diagnosis: Severe and symptomatic aortic stenosis. Postoperative Diagnosis: Severe aortic stenosis. Anesthesia: Conscious Sedation History of Present Illness: This is a very pleasant 73 y.o. female with a history of severe and symptomatic aortic stenosis. her case was discussed in our multidisciplinary valve conference and was felt to be of appropriate candidacy for TAVR. The pros, cons, risks, benefits, and alternatives of transcatheter aortic valve replacement were reviewed with the patient, and questions were answered, she provided informed consent and wished to proceed with the procedure. Description of Procedure: The patient was brought to the operating suite by anesthesia. The patientwas placed under light sedation. The patient was then cleaned, prepped and draped in the normal sterile manner. Access was then gained in the right femoral artery, right radial artery, and right femoral vein. Via the right femoral vein, a 6 [place] sheath was placed and temporary pacing wire was placed into the RV apex with appropriate capture, in addition sterile tubing was attached and given theanesthesia for central access. Via right radial artery, a 6-[place] sheath was placed and the pigtail catheter was placed into the aortic annulus with confirmation the implant angle. Via the right femoral artery, a 6-[place] sheath was placed. The patient was then heparinized. Next, two Perclose devices were used using the pre-close strategy. A Super Stiff wire was then placed through the second Perclose into the descending aorta. Then, a 14-[place] Makenzie E-sheath was introduced over the wire into the descending aorta. The sheath was then flushed. Next, an AL1 catheter and a straight wire were used to cross the aortic valve through the e- sheath. The straight wire was then removed and an Amplatz extra stiff wire (formed into a curve) was placed into the LV apex. Next, the AL1 catheter was removed. Next a 23mm Makenzie S3 valve was then advanced through the sheath into the descending aorta.The valve was then mounted on the balloon, the delivery catheter was flexed and advanced around the aortic arch and across the aortic annulus. The valve was then deployed under rapid pacing. Confirmation of an appropriate implant position and appropriately functioning valve was done using TTE. Next, the delivery catheter, extra stiff wire, and large sheath were removed and the Perclose devices were used for hemostasis. A radial band was used for hemostasis of the additional arterial site. Manual pressure was used for hemostasis of the femoral venous access site. Overall, the patient tolerated the procedure well with minimal blood loss. No immediate complications. The patient will return to the Cardiac Care unit for continued monitoring. It was a pleasure taking care of your patient while hospitalized at [facility]. I will continue to follow along while hospitalized. Please do not hesitate to call with any questions. Signed by: Srinivasa Poon MD on 04/06/2024 1:41 PM EF BP Date Value Ref Range Status 04/07/2024 66 55 - 100 % Final Eric Okeefe MD DATE of SERVICE: 04/07/2024 * Tracey Solomon MD - 04/07/2024 10:40 AM EDTAssociated Order(s): IP CONSULT TO CARDIOLOGY [facility] [place] [facility] [place]iology Consult Note Reason for Consult/Chief Complaint: AV Block s/p TAVR Established ornamenter hand: Ayah History of Present Illness: Lito Gonzalez is a 73 y.o. female with PMH significant for atrial fibrillation, aortic stenosis, DM, underlying bifascicular block admitted for TAVR, which was performed successfully on 04/06. EP serviceis consulted as patient now with reported complete heart block on telemetry associated with reported syncope per nursing staff. On review of telemetry, patient with periods of both SVT into the 170s and high- grade AV block today with, at one point, 8 consecutive QRS complexes dropped in a row, and with other periods of 4:1 AVblock and 3:1 AV block. Dose of atropine given by nursing staff during a prolonged run of block with improvement in HR. During my discussion with the patient this morning, she denies memory of her syncopal episode. Feels very tired and thinks she fell asleep earlier rather than syncopized. Denies heart palpitations, chest pain, lightheadedness. Has chronic LE edema. Assessment/Plan High-Grade AV Block Syncope Recent TAVR - will place PPM this afternoon in the setting of recurrent episodes associated with symptoms SVT - resume home BB after PPM placement Medications: aspirin, 81 mg, Oral, Daily atropine, , , glipiZIDE, 10 mg, Oral, qAM AC [Held by provider] metoprolol succinate XL, 25 mg, Oral, Daily mupirocin, 1 Application, Nasal, BID sodium chloride 0.9%, 10 mL, IntraVENous, 2 times per day Infusion Medications: Physical Examination: Vitals: 04/07/24 0945 04/07/24 0946 04/07/24 0947 04/07/24 0949 BP: 105/59 BP Location: Patient Position: Pulse: 110 (!) 24 (!) 49 59 Resp: (!) 28 20 (!) 31 Temp: TempSrc: SpO2: 94% 94% 96% Weight: Height: Intake/Output Summary (Last 24 hours) at 04/07/2024 1040 Last data filed at 04/07/2024 0608 Gross per 24 hour Intake 1240 ml Output 30 ml Net 1210 ml Wt Readings from Last 3 Encounters: 04/07/24 243 lb (110 kg) 03/10/24 249 lb 1.9 oz (113 kg) 03/10/24 250 lb (113 kg) Physical Exam Constitutional: Appearance: She is not diaphoretic. Comments: Sleeping upon my entrance to the room but easily awakened HENT: Head: Normocephalic and atraumatic. Nose: No rhinorrhea. Eyes: General: No scleral icterus. Cardiovascular: Rate and Rhythm: Regular rhythm. Bradycardia present. Heart sounds: No murmur heard. No friction rub. No gallop. Pulmonary: Effort: Pulmonary effort is normal. Breath sounds: Normal breath sounds. No wheezing. Abdominal: Palpations: Abdomen is soft. Tenderness: There is no abdominal tenderness. Musculoskeletal: Right lower leg: Edema present. Left lower leg: Edema present. Skin: General: Skin is warm and dry. Psychiatric: Mood and Affect: Mood normal. Behavior: Behavior normal. Laboratory Tests: Recent Labs 04/06/24 1422 04/07/24 0007 NA 137 136 K 3.4* 4.1 CL 112* 109* CO2 21* 23 BUN 17 20* CREATININE 0.55 0.79 EGFR >90.0 78.1 No results for input(s): CKTOTAL, CKMB, CKMBINDEX, TROPONINI in the last 72 hours. Recent Labs 04/06/24 1422 04/07/24 0007 WBC 7.2 9.3 HGB 11.7 13.1 HCT 36.1 40.5 MCV 93.8 93.1 PLT 156 168 No results found for: HGBA1C No results found for: TSH No results found for: CHOL No results found for: HDL No results found for: LDLCALC No results found for: TRIG No results found for: CHOLHDL No results found for: LDLCHOLESTER No results for input(s): BNP in the last 72 hours. No results for input(s): INR in the last 72 hours. Results from last 7 days Lab Units 04/01/24 0000 AST U/L 21 ALT U/L 26 No results found for: IRON, TIBC, FERRITIN Cardiac Tests Personally Reviewed: Last EKG 04/06/24 ECG 12-LEAD (Preliminary) This result has not been signed. Information might be incomplete. Impression Sinus tachycardia RBBB and LPFB Anteroseptal infarct, old Telemetry findings: intermittent SVT to 170, high-grade AV block Reports reviewed: Last Echo 04/06/24 TRANSTHORACIC ECHOCARDIOGRAM (TTE) COMPLETE (CONTRAST/BUBBLE/3D PRN) (Preliminary) This result has not been signed. Information might be incomplete. Interpretation Summary Aortic Valve: Marsh Makenzie 3 Ultra bioprosthetic aortic valve with a size of 23mm mm. AV mean gradient is 12 mmHg. No cusp thickening. No cusp calcification. No regurgitation. No stenosis. AV peak gradient is 21 mmHg. AV peak velocity is 2.3 m/s. LVOT:AV VTI Index is 0.58. Left Ventricle: Left ventricle size is normal. Mildly increased wall thickness. Normal left ventricular systolic function. EF by 2D Simpsons Biplane is 66%. Normal wall motion. Right Ventricle: Right ventricle size is normal. Normal systolic function. Aorta: Normal sized annulus and sinuses of Valsalva. Mildly dilated ascending aorta. Ao ascending diameter is 3.5 cm. Last Cath 04/06/24 CARDIAC PROCEDURE 04/06/2024 1:41 PM (Final) Conclusion Successful TAVR with a 23mm Makenzie S3u, via right transfemoral approach TAVR Procedural Report Interventional Cardiologists: -Srinivasa Poon MD -Devaughn Young MD (Fellow) Cardiothoracic Surgeon: -Jayson Key MD Procedure: 1. A 23 MAKENZIE S3 VALVE IMPLANTATION. 2. TRANSFEMORAL TRANSCATHETER AORTIC VALVE REPLACEMENT. Preoperative Diagnosis: Severe and symptomatic aortic stenosis. Postoperative Diagnosis: Severe aortic stenosis. Anesthesia: Conscious Sedation History of Present Illness: This is a very pleasant 73 y.o. female with a history of severe and symptomatic aortic stenosis. her case was discussed in our multidisciplinary valve conference and was felt to be of appropriate candidacy for TAVR. The pros, cons, risks, benefits, and alternatives of transcatheter aortic valve replacement were reviewed with the patient, and questions were answered, she provided informed consent and wished to proceed with the procedure. Description of Procedure: The patient was brought to the operating suite by anesthesia. The patientwas placed under light sedation. The patient was then cleaned, prepped and draped in the normal sterile manner. Access was then gained in the right femoral artery, right radial artery, and right femoral vein. Via the right femoral vein, a 6 [place] sheath was placed and temporary pacing wire was placed into the RV apex with appropriate capture, in addition sterile tubing was attached and given theanesthesia for central access. Via right radial artery, a 6-[place] sheath was placed and the pigtail catheter was placed into the aortic annulus with confirmation the implant angle. Via the right femoral artery, a 6-[place] sheath was placed. The patient was then heparinized. Next, two Perclose devices were used using the pre-close strategy. A Super Stiff wire was then placed through the second Perclose into the descending aorta. Then, a 14-[place] Makenzie E-sheath was introduced over the wire into the descending aorta. The sheath was then flushed. Next, an AL1 catheter and a straight wire were used to cross the aortic valve through the e- sheath. The straight wire was then removed and an Amplatz extra stiff wire (formed into a curve) was placed into the LV apex. Next, the AL1 catheter was removed. Next a 23mm Makenzie S3 valve was then advanced through the sheath into the descending aorta.The valve was then mounted on the balloon, the delivery catheter was flexed and advanced around the aortic arch and across the aortic annulus. The valve was then deployed under rapid pacing. Confirmation of an appropriate implant position and appropriately functioning valve was done using TTE. Next, the delivery catheter, extra stiff wire, and large sheath were removed and the Perclose devices were used for hemostasis. A radial band was used for hemostasis of the additional arterial site. Manual pressure was used for hemostasis of the femoral venous access site. Overall, the patient tolerated the procedure well with minimal blood loss. No immediate complications. The patient will return to the Cardiac Care unit for continued monitoring. It was a pleasure taking care of your patient while hospitalized at [facility]. I will continue to follow along while hospitalized. Please do not hesitate to call with any questions. Signed by: Srinivasa Poon MD on 04/06/2024 1:41 PM Last Stress Test No results found for this or any previous visit. Last EP study No results found for this or any previous visit. EF BP Date Value Ref Range Status 04/07/2024 66 55 - 100 % Preliminary Tracey Solomon MD DATE of SERVICE: 04/07/2024 * Malika Greenberg - 04/07/2024 9:08 AM EDTAssociated Order(s): IP CONSULT TO CARDIAC REHAB Received referral and reviewed chart. Phase II Cardiopulmonary Rehab Referral discussed with Lito Gonzalez. Patient prefers cardiopulmonary rehab at [facility]. Given information on program at preferred location. documented in this encounterS[facility] [id number] Nurse Note* Shasta Badillo RN - 04/07/2024 10:54 AM EDT 1054: Pt monitor alarming bradycardia. This RN to patient's room, pt is alert, HR returned to baseline ST in low 100s. Pt asymptomatic and all other VSS. Pt strip showing short episode of high grade AV block with several dropped QRS complexes. 1057: Pt monitor alarmed for tachycardia. HR was seen at 177. Pt remains asymptomatic. Denies chestpain, SOB, palpitations. This was followed by a prolonged episode of high grade heart block with dropped QRS. After a few seconds, pt became unresponsive with labored breathing. Code Blue called. Minh, RN pushed 1 mg atropine with return of patient to a perfusing bradycardic rhythm prior to CPR being initiated. Pt regained consciousness and denied any discomfort. 1058: Dr. Lucas to bedside. Pacing pads placed on patient and connected to defibrillator, transcutaneous pacing not initiated at this time as pt HR 110- 120s. All other VSS. Lindsey Tolentino, WALL MAN tobedside. EP consult ordered. 1138: Pt had another episode of tachycardia with HR in 170s. All other VSS. Pt asymptomatic 1159: Dr. Okeefe to bedside for EP consult. Plan to take patient for permanent pacemaker placement. 1215: Pt taken to EP lab for Pacemaker placement. Consent signed. [id number]* Shasta Badillo RN - 04/07/2024 10:54 AM EDT 1054: Pt monitor alarming bradycardia. This RN to patient's room, pt is alert, HR returned to baseline ST in low 100s. Pt asymptomatic and all other VSS. Pt strip showing short episode of high grade AV block with several dropped QRS complexes. 1057: Pt monitor alarmed for tachycardia. HR was seen at 177. Pt remains asymptomatic. Denies chestpain, SOB, palpitations. This was followed by a prolonged episode of high grade heart block with dropped QRS. After a few seconds, pt became unresponsive with labored breathing. Code Blue called. Minh, RN pushed 1 mg atropine with return of patient to a perfusing bradycardic rhythm prior to CPR being initiated. Pt regained consciousness and denied any discomfort. 1058: Dr. Lucas to bedside. Pacing pads placed on patient and connected to defibrillator, transcutaneous pacing not initiated at this time as pt HR 110- 120s. All other VSS. Lindsey Tolentino, WALL MAN tobedside. EP consult ordered. 1138: Pt had another episode of tachycardia with HR in 170s. All other VSS. Pt asymptomatic 1159: Dr. Okeefe to bedside for EP consult. Plan to take patient for permanent pacemaker placement. 1215: Pt taken to EP lab for Pacemaker placement. Consent signed. documented in this [facility]09-10-2024 Consult note* Tracey Solomon MD - 04/07/2024 10:40 AM EDTAssociated Order(s): IP CONSULT TO CARDIOLOGY [facility] [place] [facility] [place]Electrophysiology Consult Note Reason for Consult/Chief Complaint: AV Block s/p TAVR Established ornamenter hand: Ayah History of Present Illness: Lito Gonzalez is a 73 y.o. female with PMH significant for atrial fibrillation, aortic stenosis, DM, underlying bifascicular block admitted for TAVR, which was performed successfully on 04/06. EP serviceis consulted as patient now with reported complete heart block on telemetry associated with reported syncope per nursing staff. On review of telemetry, patient with periods of both SVT into the 170s and high- grade AV block today with, at one point, 8 consecutive QRS complexes dropped in a row, and with other periods of 4:1 AVblock and 3:1 AV block. Dose of atropine given by nursing staff during a prolonged run of block with improvement in HR. During my discussion with the patient this morning, she denies memory of her syncopal episode. Feels very tired and thinks she fell asleep earlier rather than syncopized. Denies heart palpitations, chest pain, lightheadedness. Has chronic LE edema. Assessment/Plan High-Grade AV Block Syncope Recent TAVR - will place PPM this afternoon in the setting of recurrent episodes associated with symptoms SVT - resume home BB after PPM placement Medications: aspirin, 81 mg, Oral, Daily atropine, , , glipiZIDE, 10 mg, Oral, qAM AC [Held by provider] metoprolol succinate XL, 25 mg, Oral, Daily mupirocin, 1 Application, Nasal, BID sodium chloride 0.9%, 10 mL, IntraVENous, 2 times per day Infusion Medications: Physical Examination: Vitals: 04/07/24 0945 04/07/24 0946 04/07/24 0947 04/07/24 0949 BP: 105/59 BP Location: Patient Position: Pulse: 110 (!) 24 (!) 49 59 Resp: (!) 28 20 (!) 31 Temp: TempSrc: SpO2: 94% 94% 96% Weight: Height: Intake/Output Summary (Last 24 hours) at 04/07/2024 1040 Last data filed at 04/07/2024 0608 Gross per 24 hour Intake 1240 ml Output 30 ml Net 1210 ml Wt Readings from Last 3 Encounters: 04/07/24 243 lb (110 kg) 03/10/24 249 lb 1.9 oz (113 kg) 03/10/24 250 lb (113 kg) Physical Exam Constitutional: Appearance: She is not diaphoretic. Comments: Sleeping upon my entrance to the room but easily awakened HENT: Head: Normocephalic and atraumatic. Nose: No rhinorrhea. Eyes: General: No scleral icterus. Cardiovascular: Rate and Rhythm: Regular rhythm. Bradycardia present. Heart sounds: No murmur heard. No friction rub. No gallop. Pulmonary: Effort: Pulmonary effort is normal. Breath sounds: Normal breath sounds. No wheezing. Abdominal: Palpations: Abdomen is soft. Tenderness: There is no abdominal tenderness. Musculoskeletal: Right lower leg: Edema present. Left lower leg: Edema present. Skin: General: Skin is warm and dry. Psychiatric: Mood and Affect: Mood normal. Behavior: Behavior normal. Laboratory Tests: Recent Labs 04/06/24 1422 04/07/24 0007 NA 137 136 K 3.4* 4.1 CL 112* 109* CO2 21* 23 BUN 17 20* CREATININE 0.55 0.79 EGFR >90.0 78.1 No results for input(s): CKTOTAL, CKMB, CKMBINDEX, TROPONINI in the last 72 hours. Recent Labs 04/06/24 14204/07/24 0007 WBC 7.2 9.3 HGB 11.7 13.1 HCT 36.1 40.5 MCV 93.8 93.1 PLT 156 168 No results found for: HGBA1C No results found for: TSH No results found for: CHOL No results found for: HDL No results found for: LDLCALC No results found for: TRIG No results found for: CHOLHDL No results found for: LDLCHOLESTER No results for input(s): BNP in the last 72 hours. No results for input(s): INR in the last 72 hours. Results from last 7 days Lab Units 04/01/24 0000 AST U/L 21 ALT U/L 26 No results found for: IRON, TIBC, FERRITIN Cardiac Tests Personally Reviewed: Last EKG 04/06/24 ECG 12-LEAD (Preliminary) This result has not been signed. Information might be incomplete. Impression Sinus tachycardia RBBB and LPFB Anteroseptal infarct, old Telemetry findings: intermittent SVT to 170, high-grade AV block Reports reviewed: Last Echo 04/06/24 TRANSTHORACIC ECHOCARDIOGRAM (TTE) COMPLETE (CONTRAST/BUBBLE/3D PRN) (Preliminary) This result has not been signed. Information might be incomplete. Interpretation Summary Aortic Valve: Marsh Makenzie 3 Ultra bioprosthetic aortic valve with a size of 23mm mm. AV mean gradient is 12 mmHg. No cusp thickening. No cusp calcification. No regurgitation. No stenosis. AV peak gradient is 21 mmHg. AV peak velocity is 2.3 m/s. LVOT:AV VTI Index is 0.58. Left Ventricle: Left ventricle size is normal. Mildly increased wall thickness. Normal left ventricular systolic function. EF by 2D Simpsons Biplane is 66%. Normal wall motion. Right Ventricle: Right ventricle size is normal. Normal systolic function. Aorta: Normal sized annulus and sinuses of Valsalva. Mildly dilated ascending aorta. Ao ascending diameter is 3.5 cm. Last Cath 04/06/24 CARDIAC PROCEDURE 04/06/2024 1:41 PM (Final) Conclusion Successful TAVR with a 23mm Makenzie S3u, via right transfemoral approach TAVR Procedural Report Interventional Cardiologists: -Srinivasa Poon MD -Devaughn Young MD (Fellow) Cardiothoracic Surgeon: -Jayson Key MD Procedure: 1. A 23 MAKENZIE S3 VALVE IMPLANTATION. 2. TRANSFEMORAL TRANSCATHETER AORTIC VALVE REPLACEMENT. Preoperative Diagnosis: Severe and symptomatic aortic stenosis. Postoperative Diagnosis: Severe aortic stenosis. Anesthesia: Conscious Sedation History of Present Illness: This is a very pleasant 73 y.o. female with a history of severe and symptomatic aortic stenosis. her case was discussed in our multidisciplinary valve conference and was felt to be of appropriate candidacy for TAVR. The pros, cons, risks, benefits, and alternatives of transcatheter aortic valve replacement were reviewed with the patient, and questions were answered, she provided informed consent and wished to proceed with the procedure. Description of Procedure: The patient was brought to the operating suite by anesthesia. The patientwas placed under light sedation. The patient was then cleaned, prepped and draped in the normal sterile manner. Access was then gained in the right femoral artery, right radial artery, and right femoral vein. Via the right femoral vein, a 6 [place] sheath was placed and temporary pacing wire was placed into the RV apex with appropriate capture, in addition sterile tubing was attached and given theanesthesia for central access. Via right radial artery, a 6-[place] sheath was placed and the pigtail catheter was placed into the aortic annulus with confirmation the implant angle. Via the right femoral artery, a 6-[place] sheath was placed. The patient was then heparinized. Next, two Perclose devices were used using the pre-close strategy. A Super Stiff wire was then placed through the second Perclose into the descending aorta. Then, a 14-[place] Makenzie E-sheath was introduced over the wire into the descending aorta. The sheath was then flushed. Next, an AL1 catheter and a straight wire were used to cross the aortic valve through the e- sheath. The straight wire was then removed and an Amplatz extra stiff wire (formed into a curve) was placed into the LV apex. Next, the AL1 catheter was removed. Next a 23mm Makenzie S3 valve was then advanced through the sheath into the descending aorta.The valve was then mounted on the balloon, the delivery catheter was flexed and advanced around the aortic arch and across the aortic annulus. The valve was then deployed under rapid pacing. Confirmation of an appropriate implant position and appropriately functioning valve was done using TTE. Next, the delivery catheter, extra stiff wire, and large sheath were removed and the Perclose devices were used for hemostasis. A radial band was used for hemostasis of the additional arterial site. Manual pressure was used for hemostasis of the femoral venous access site. Overall, the patient tolerated the procedure well with minimal blood loss. No immediate complications. The patient will return to the Cardiac Care unit for continued monitoring. It was a pleasure taking care of your patient while hospitalized at [facility]. I will continue to follow along while hospitalized. Please do not hesitate to call with any questions. Signed by: Srinivasa Poon MD on 04/06/2024 1:41 PM Last Stress Test No results found for this or any previous visit. Last EP study No results found for this or any previous visit. EF BP Date Value Ref Range Status 04/07/2024 66 55 - 100 % Preliminary Tracey Solomon MD DATE of SERVICE: 04/07/2024 Portr Work Phone: [phone] 374-868809-10-2024 [facility] [place] [facility] [place]iology Progress Note HPI / Interval History: Ms Gonzalez is POD 1 TAVR. She denies any chest pain, dyspnea, palpitations, groin complaints. Around 10 am this morning she intermittent high degree block. Prior to that she had sinus tachycardia with a HR of 106. Assessment/Plan Severe . POD 1 TAVR. Echo this am. Continue ASA. High degree AV block. Will hold beta liliya, consult EP HTN. BP controlled DM. Her blood sugars have been elevated this admission, requiring insulin. Glucotrol was resumed this am before high degree AV block recognized. Will monitor for needs, continue glucose checks 5. Paroxysmal atrial fibrillation. She is unaware of this diagnosis, she has not been on OAC to her knowledge. CHADSVASC= 4. Will discuss with Dr. Poon/Dr. Hubbard Medications: aspirin, 81 mg, Oral, Daily atropine, , , atropine, , , glipiZIDE, 10 mg, Oral, qAM AC [Held by provider] metoprolol succinate XL, 25 mg, Oral, Daily mupirocin, 1 Application, Nasal, BID sodium chloride 0.9%, 10 mL, IntraVENous, 2 times per day Physical Examination: Vitals: 04/07/24 0945 04/07/24 0946 04/07/24 0947 04/07/24 0949 BP: 105/59 BP Location: Patient Position: Pulse: 110 (!) 24 (!) 49 59 Resp: (!) 28 20 (!) 31 Temp: TempSrc: SpO2: 94% 94% 96% Weight: Height: Intake/Output Summary (Last 24 hours) at 04/07/2024 1127 Last data filed at 04/07/2024 0608 Gross per 24 hour Intake 1240 ml Output 30 ml Net 1210 ml Patient Vitals for the past 168 hrs: Weight Weight Method 04/07/24 0944 243 lb (110 kg) -- 04/07/24 0539 243 lb 6.2 oz (110 kg) -- 04/06/24 1317 249 lb (113 kg) -- 04/06/24 0922 249 lb (113 kg) Stated Physical Exam Constitutional: Appearance: Normal appearance. She is obese. HENT: Head: Normocephalic and atraumatic. Nose: Nose normal. Eyes: Conjunctiva/sclera: Conjunctivae normal. Pupils: Pupils are equal, round, and reactive to light. Cardiovascular: Rate and Rhythm: Normal rate and regular rhythm. Pulmonary: Effort: Pulmonary effort is normal. Breath sounds: Normal breath sounds. Abdominal: General: Bowel sounds are normal. Palpations: Abdomen is soft. Musculoskeletal: General: Normal range of motion. Cervical back: Normal range of motion and neck supple. Right lower leg: Edema present. Left lower leg: Edema present. Skin: General: Skin is warm and dry. Comments: Right wrist and groin soft without bleeding or hematoma Neurological: General: No focal deficit present. Mental Status: She is alert and oriented to person, place, and time. Psychiatric: Mood and Affect: Mood normal. Thought Content: Thought content normal. Laboratory Tests: Recent Labs 04/06/24142104/07/24 000 NA 137 136 K 3.4* 4.1 CL 112* 109* CO2 21* 23 BUN 17 20* CREATININE 0.55 0.79 Recent Labs 04/06/24142104/07/24 000 WBC 7.2 9.3 HGB 11.7 13.1 HCT 36.1 40.5 MCV 93.8 93.1 PLT 156 168 No results for input(s): CKTOTAL, CKMB, CKMBINDEX, TROPONINI in the last 72 hours. No results for input(s): BNP in the last 72 hours. No results for input(s): TRIG, HDL, LDLCALC, CHOL in the last 72 hours. No results found for: LDLCHOLESTER No results found for: TSH EF BP Date Value Ref Range Status 04/07/2024 66 55 - 100 % Preliminary 04/06/24 TRANSTHORACIC ECHOCARDIOGRAM (TTE) COMPLETE (CONTRAST/BUBBLE/3D PRN) (Preliminary) This result has not been signed. Information might be incomplete. Interpretation Summary Aortic Valve: Marsh Makenzie 3 Ultra bioprosthetic aortic valve with a size of 23mm mm. AV mean gradient is 12 mmHg. No cusp thickening. No cusp calcification. No regurgitation. No stenosis. AV peak gradient is 21 mmHg. AV peak velocity is 2.3 m/s. LVOT:AV VTI Index is 0.58. Left Ventricle: Left ventricle size is normal. Mildly increased wall thickness. Normal left ventricular systolic function. EF by 2D Simpsons Biplane is 66%. Normal wall motion. Right Ventricle: Right ventricle size is normal. Normal systolic function. Aorta: Normal sized annulus and sinuses of Valsalva. Mildly dilated ascending aorta. Ao ascending diameter is 3.5 cm. Other reports reviewed: Cardiac Tests: ECG: SR with RBBB, LPFB Tracing reviewed. Telemetry findings reviewed: see HPI EF BP Date Value Ref Range Status 04/07/2024 66 55 - 100 % Preliminary Lindsey Tolentino, LAB SUPPORT TECH - WALL MAN Date Of Service 04/07/2024[facility]09[facility]10[facility] Consult note* Malika Greenberg - 04/07/2024 9:08 AM EDTAssociated Order(s): IP CONSULT TO CARDIAC REHAB Received referral and reviewed chart. Phase II Cardiopulmonary Rehab Referral discussed with Lito Gonzalez. Patient prefers cardiopulmonary rehab at [facility]. Given information on program at preferred location. [id number] NoteReceived referral and reviewed chart. Phase II Cardiopulmonary Rehab Referral discussed with Lito Gonzalez. Patient prefers cardiopulmonary rehab at [facility]. Given information on program at preferred location. [facility]09-09-2024 Plan of care note* Care Plan - Irma Shane RN - 04/06/2024 7:11 PM EDT The patient is Moderately Unstable - Medium risk of patient condition declining or worsening The patient's goals for the shift include go home The clinical goals for the shift include hemodynamic stability Over the shift, the patient did not make progress toward the following goals. Barriers to progression include pt with poor short term memory, stable. Recommendations to address these barriers includecontinue to reinforce and monitor. [id number] NotePatient was transferred to CCU team for stabilization and need for pacer placement when evidence of heart block developed POD1. Please see CCU team notes and discharge summary.[facility]09-09-2024 Hospital Discharge instructions* Discharge Instructions* MILDRED Cardoza CNP - 04/06/2024 4:27 PM EDT - Please call the Heart Valve Clinic with any questions: [phone] -You will have have the following follow up appointments in the Heart Valve Clinic: one week post procedure, one month post procedure with echocardiogram, one year post procedure with echocardiogram. -Wash groin/wrist incision with soap and water, pat dry. Apply bandage for 5 days. If you have a chest incision, you will receive specific instructions from your surgeon regarding care of the incision. -Check incision every day. If you see any changes in the way it looks, call the Heart Valve Clinic at . Look for any of these problems: redness and warmth that does not go away, yellow or green drainage from the wound, fever and chills, numbness in your legs, pain that is getting worse. -It is normal to have a bruise or soft lump in the groin. This will get smaller and go away with time -Do not drive until after your first Heart Valve Clinic Appointment. -Do not lift, push, or pull anything weighing more than 5 lbs or more for one week if you had the procedure through your groin and 4 weeks if you had the procedure through the chest -We strongly encourage a regular exercise program such as cardiac rehabilitation once you have beencleared to resume normal activity. -Eating well is important for your recovery. Eat nutritious foods every day. Please follow a cardiac, 2 gram sodium diet. Please continue to follow any other dietary recommendations provided by your health care provider prior to your valve surgery. -From now on, tell your doctors and health care providers about your heart valve implantation (prosthetic heart valve ). -If you go to the emergency room or are admitted to the hospital during the first year after your procedure, please call the Heart Valve Clinic at -If you have major dental work or other invasive medical procedures (like surgery) you may need to take antibiotics before the dental work or the procedure. Please discuss with your health care provider. - You will need to take blood thinning medications (antiplatelet) after your valve procedure. Generally, this includes aspirin alone, unless you take blood thinning medications for another indication(warfarin, apixaban, rivaroxaban). If you take blood thinning medications, these are generally sufficient and aspirin will not be required unless otherwise specified. Post Pacemaker Discharge Instructions Incision Care: Keep original bandage on for 5 days. Remove it on __04/12/24 . Then, leave incision open to air. Do not remove steri-strips (tape) from incision line if present. Do not put any creams, powders, or ointments on incision. Allow steri-strips to fall off naturally. If still on 10 days post-op, may remove. If you have a pressure dressing (marquez colored, elastic tape covering your shoulder), remove this themorning after your procedure. Pull the tape off slowly to avoid skin tears. There will be another dressing underneath. Leave this one on for 5 days. You may take a sponge bath up until _04/09/24 , then you may shower. No swimming or tub bathing for 6 weeks. Observe area for redness, swelling, or drainage. If these symptoms occur, notify the device clinic immediately: . Some bruising can be expected. If the area around your incision becomes painful to touch after early soreness has gone away, or ifyou experience fever or chills, notify the device clinic immediately. For bleeding that does not stop or increased swelling, come to the Emergency Department. Sedation: If you have received sedation, you must have someone drive you home. You should not drive a car, operate machinery, drink alcohol, or perform any activity that requiresalertness for the rest of the day. The effects of the sedative should resolve by tomorrow. Activity: Keep affected arm below shoulder level for 4 weeks. Do not raise affected arm over your head. No lifting more than 10 pounds with your affected arm for 4 weeks (a gallon of milk weighs 8 pounds). Limit pushing/pulling with affected arm. No driving for __7__ days. You may resume sexual activity in 3 weeks. General Instructions: Carry your ID card with you at all times. Refer to your information booklet for additional information. It is recommended that all family members be certified in CPR. Call the Device Clinic at [phone] if you have any questions regarding your incision, pacemaker, or follow-up appointments documented in this [facility]09-09-2024 NotePatient: Lito Gonzalez Procedure Summary Date: 04/06/24 Room / Location: [facility] Operating Room Anesthesia Start: 1148 Anesthesia Stop: 1345 Procedures: TRANSCATHETER AORTIC VALVE REPLACEMENT, TRANSTHORACIC ECHOCARDIOGRAM TRANSCATHETER AORTIC VALVE REPLACEMENT, TRANSTHORACIC ECHOCARDIOGRAM (Chest) Diagnosis: Nonrheumatic aortic valve stenosis (Same) Surgeons: Srinivasa Poon MD; Jayson Key MD Responsible Provider: Reynaldo Hernandez MD Anesthesia Type: MAC ASA Status: 4 Anesthesia Type: MAC Vitals Value Taken Time BP 111/65 04/06/24 1350 Temp 36.1 ?C (97 ?F) 04/06/24 1350 Pulse 95 04/06/24 1350 Resp 16 04/06/24 1350 SpO2 96 % 04/06/24 1350 Anesthesia Post Evaluation Patient location during evaluation: PACU Patient participation: complete - patient participated Level of consciousness: awake and alert Pain management: satisfactory to patient Airway patency: patent Dental Injury: no Cardiovascular status: acceptable, blood pressure returned to baseline and hemodynamically stable Respiratory status: acceptable and spontaneous ventilation Hydration status: euvolemic Nausea/Vomiting: controlled There were no known notable events for this encounter. Patient can be discharged once all PACU criteria has been met.[facility] [id number] NotePatient: Lito Gnozalez Procedure Summary Date: 04/06/24 [place] [facility] [place] Room Anesthesia Start: 1148 Anesthesia Stop: 1345 Procedures: TRANSCATHETER AORTIC VALVE REPLACEMENT, TRANSTHORACIC ECHOCARDIOGRAM TRANSCATHETER AORTIC VALVE REPLACEMENT, TRANSTHORACIC ECHOCARDIOGRAM (Chest) Diagnosis: Nonrheumatic aortic valve stenosis (Same) Surgeons: Srinivasa Poon MD; Jayson Key MD Responsible Provider: Reynaldo Hernandez MD Anesthesia Type: MAC ASA Status: 4 Anesthesia Type: MAC Vitals Value Taken Time BP 111/65 04/06/24 1350 Temp 36.1 ?C (97 ?F) 04/06/24 1350 Pulse 95 04/06/24 1350 Resp 16 04/06/24 1350 SpO2 96 % 04/06/24 1350 Anesthesia Post Evaluation Patient location during evaluation: ICU Patient participation: complete - patient participated Level of consciousness: awake and alert Pain score: 0 Pain management: satisfactory to patient Multimodal analgesia pain management approach Airway patency: patent Two or more strategies used to mitigate risk of obstructive sleep apnea Cardiovascular status: acceptable and hemodynamically stable Respiratory status: acceptable Hydration status: acceptable There were no known notable events for this encounter. MIPS #430 PONV Patient did not receive an inhalational anesthetic (XX430) MIPS # 424 Perioperative Temperature Management Anesthesia time was 60 minutes or longer (4255F) Anesthesai administered was General (inhalational or TIVA) or Neuraxial block (X0424) At least one body temperature greater than 95.8F/35.5C achieved within the 30 mins immediately prior to or the 15 minutes immediately following anesthesia end time (G9771) MIPS #477 Multimodal Pain Management Not emergent case Patient was administered multimodal pain management (two or more drugs and/or interventions excluding systemic opioids) in the periopeartive period occurring at some time between 6 hours prior to anesthesia start time until discharged from PACU (G2148) MIPS #404 Anesthesiology Smoking Abstinence The patient is not a current smoker (e.g. cigarette, cigar, pipe, e-cigarette/vaping/marijuana) If no stop here (XX404) I completed my handoff to the receiving clinician during which we: 1. Identified the patient 2. Identified the responsible provider 3. Reviewed the pertinent medical history 4. Discussed the surgical course 5. Reviewed intra-op anesthesia management and issues during anesthesia 6. Set expectations for post-procedure period 7. Allowed opportunity for questions and acknowledgement of understanding.[facility]09-09-2024 NoteArterial Line: Date/Time: 04/06/2024 12:28 PM An arterial line was placed Procedure performed using ultrasound guidance - Image permanently retained with wire or catheter in vein.in the Procedural for the following indication(s): continuous blood pressure monitoring and blood sampling needed. A (size) (length) (type) catheter was placed, into the Right femoral artery, secured by Tegaderm and tape. Events: patient tolerated procedure well with no complications. Staffing Performed: Other Other staff: Srinivasa Poon, [facility]09-09-2024 NoteH&P reviewed. The patient was examined and there are no changes to the H&P.[facility]09-09-2024 Note* Perioperative Nursing Note - Tamela Lai RN - 04/06/2024 9:[address] Hernandez made aware of MBS 253 new orders received. [id number] Note* Perioperative Nursing Note - Tamela Lai RN - 04/06/2024 9:[address] Hernandez made aware of MBS 253 new orders received. [id number] Note Attestation signed by Srinivasa Poon MD at 04/06/2024 10:28 PM I, Dr. Poon, saw and evaluated the patient. I personally obtained the parker and critical portions of the history and physical exam. I reviewed the chart and discussed the patient with the Nurse Practitioner. I agree with the Nurse Practitioner's medical decision making. I spoke with Lito Gonzalez this morning. she tells me that nothing has changed clinically since our last office visit. We will proceed with the planned procedure. Srinivasa Poon MD Cardiology Nonrheumatic aortic valve stenosis +1 more Dx Cardiac Valve Problem New Patient ; Referred by Ac Hubbard Reason for Visit Progress Notes Srinivasa Poon MD (Physician) Cardiology Expand All [facility] All [facility] CARDIOLOGY [address] [facility] [address] Dept: [phone] Dept Visit type: New : 1950 Reason for Visit: Cardiac Valve Problem and New Patient (Heart Valve Clinic) Assessment and Plan 1. Nonrheumatic aortic valve stenosis 2. PAF (paroxysmal atrial fibrillation) ([facility]) - ECG 12 lead - CLINIC PERFORMED This is a very pleasant 73 y.o. female with severe and symptomatic aortic stenosis. she is in need of aortic valve replacement. Will get a CTA for anatomic planning. If favorable anatomy for transfemoral TAVR, will likely proceed with TAVR. This decision was made after multidisciplinary discussion, using a shared decision making strategy. CT surgery also saw patient to aide in discussion. It was a pleasure seeing your patient in the office today. Please do not hesitate to call me with any questions. Follow up for Recheck after TAVR. Subjective HPI Lito Gonzalez is a very pleasant 73 y.o. female who is here for evaluation of her aortic valve disease. her symptoms include progressive dyspnea on exertion and fatigue. her most recent echo (reviewed by me today) shows severe aortic stenosis with normal EF and mean aortic valve gradient 56mmHg. Cath showed minimal CAD. Review of Systems Constitutional: Positive for fatigue. Negative for activity change, chills, diaphoresis and fever. HENT: Negative for nosebleeds and trouble swallowing. Eyes: Negative for discharge and visual disturbance. Respiratory: Positive for shortness of breath (on exertion going up to the stairs). Negative for apnea, cough, chest tightness and wheezing. Cardiovascular: Negative for chest pain, palpitations and leg swelling. Gastrointestinal: Negative for abdominal distention, abdominal pain, blood in stool, diarrhea, nausea and vomiting. Endocrine: Negative for cold intolerance and heat intolerance. Genitourinary: Negative for hematuria. Musculoskeletal: Positive for gait problem (in wheelchair during visit, uses walker). Negative for myalgias. Skin: Negative for color change and rash. Neurological: Positive for syncope (possible syncopal episode while sweeping). Negative for dizziness, seizures, facial asymmetry, speech difficulty, weakness, light-headedness, numbness and headaches. Hematological: Does not bruise/bleed easily. Psychiatric/Behavioral: Positive for confusion (known memory loss). Negative for dysphoric mood. Allergies Allergies Allergen Reactions Atorvastatin Rash red itchy rash around neck--resolved after stopping med; hands froze with stiffness that started a week after taking a couple pills--resolving Medications Prior to Visit Outpatient Medications Prior to Visit Medication Sig Dispense Refill aspirin 81 MG EC tablet Take 81 mg by mouth daily. calcium carbonate 500 MG chewable tablet Chew 500 mg daily. glimepiride (Amaryl) 4 MG tablet Take 1 tablet by mouth in the morning and 1 tablet in the evening. Take with meals. Nsumvhiritb-Vwqwytrnt-Rhq C-Mn (GLUCOSAMINE 1500 COMPLEX PO) Take by mouth. [employer] Blood Glucose Test test strip Test blood sugar(s) 1 time daily as directed. Dx: Type 2 DM - Controlled E11.9 Insulin: No metFORMIN (Glucophage) 500 MG tablet Take 2 tablets by mouth in the morning and 2 tablets in the evening. Take with meals. metoprolol succinate XL (Toprol-XL) 25 MG 24 hr tablet Take 25 mg by mouth daily. No facility-administered medications prior to visit. Medical History Past Medical History: Diagnosis Date Atrial fibrillation (HCC) Diabetes mellitus (HCC) Heart valve disease Hypertension Social History Tobacco Use Smoking status: Never Smokeless tobacco: Never Substance Use Topics Alcohol use: Never Surgical History Past Surgical History: Procedure Laterality Date APPENDECTOMY HYSTERECTOMY TOTAL HIP ARTHROPLASTY Right 12/02/2019 TOTAL KNEE ARTHROPLASTY Left 01/31/2009 TOTAL KNEE ARTHROPLASTY Right Family History Family History Problem Relation Name (more content not included)...[facility] 04-03-2024 Note Attestation signed by Srinivasa Poon MD at 04/06/2024 10:28 PM I, Dr. Poon, saw and evaluated the patient. I personally obtained the parker and critical portions of the history and physical exam. I reviewed the chart and discussed the patient with the Nurse Practitioner. I agree with the Nurse Practitioner's medical decision making. I spoke with Lito Gonzalez this morning. she tells me that nothing has changed clinically since our last office visit. We will proceed with the planned procedure. Srinivasa Poon MD Cardiology Nonrheumatic aortic valve stenosis +1 more Dx Cardiac Valve Problem New Patient ; Referred by Ac Hubbard Reason for Visit Progress Notes Srinivasa Poon MD (Physician) Cardiology Expand All [facility] All [facility] CARDIOLOGY [address] [facility] [address] Dept: [phone] Dept Visit type: New : 1950 Reason for Visit: Cardiac Valve Problem and New Patient (Heart Valve Clinic) Assessment and Plan 1. Nonrheumatic aortic valve stenosis 2. PAF (paroxysmal atrial fibrillation) ([facility]) - ECG 12 lead - CLINIC PERFORMED This is a very pleasant 73 y.o. female with severe and symptomatic aortic stenosis. she is in need of aortic valve replacement. Will get a CTA for anatomic planning. If favorable anatomy for transfemoral TAVR, will likely proceed with TAVR. This decision was made after multidisciplinary discussion, using a shared decision making strategy. CT surgery also saw patient to aide in discussion. It was a pleasure seeing your patient in the office today. Please do not hesitate to call me with any questions. Follow up for Recheck after TAVR. Subjective HPI Lito Gonzalez is a very pleasant 73 y.o. female who is here for evaluation of her aortic valve disease. her symptoms include progressive dyspnea on exertion and fatigue. her most recent echo (reviewed by me today) shows severe aortic stenosis with normal EF and mean aortic valve gradient 56mmHg. Cath showed minimal CAD. Review of Systems Constitutional: Positive for fatigue. Negative for activity change, chills, diaphoresis and fever. HENT: Negative for nosebleeds and trouble swallowing. Eyes: Negative for discharge and visual disturbance. Respiratory: Positive for shortness of breath (on exertion going up to the stairs). Negative for apnea, cough, chest tightness and wheezing. Cardiovascular: Negative for chest pain, palpitations and leg swelling. Gastrointestinal: Negative for abdominal distention, abdominal pain, blood in stool, diarrhea, nausea and vomiting. Endocrine: Negative for cold intolerance and heat intolerance. Genitourinary: Negative for hematuria. Musculoskeletal: Positive for gait problem (in wheelchair during visit, uses walker). Negative for myalgias. Skin: Negative for color change and rash. Neurological: Positive for syncope (possible syncopal episode while sweeping). Negative for dizziness, seizures, facial asymmetry, speech difficulty, weakness, light-headedness, numbness and headaches. Hematological: Does not bruise/bleed easily. Psychiatric/Behavioral: Positive for confusion (known memory loss). Negative for dysphoric mood. Allergies Allergies Allergen Reactions Atorvastatin Rash red itchy rash around neck--resolved after stopping med; hands froze with stiffness that started a week after taking a couple pills--resolving Medications Prior to Visit Outpatient Medications Prior to Visit Medication Sig Dispense Refill aspirin 81 MG EC tablet Take 81 mg by mouth daily. calcium carbonate 500 MG chewable tablet Chew 500 mg daily. glimepiride (Amaryl) 4 MG tablet Take 1 tablet by mouth in the morning and 1 tablet in the evening. Take with meals. Atpvtkynqkl-Pneshhicf-Xrr C-Mn (GLUCOSAMINE 1500 COMPLEX PO) Take by mouth. [employer] Blood Glucose Test test strip Test blood sugar(s) 1 time daily as directed. Dx: Type 2 DM - Controlled E11.9 Insulin: No metFORMIN (Glucophage) 500 MG tablet Take 2 tablets by mouth in the morning and 2 tablets in the evening. Take with meals. metoprolol succinate XL (Toprol-XL) 25 MG 24 hr tablet Take 25 mg by mouth daily. No facility-administered medications prior to visit. Medical History Past Medical History: Diagnosis Date Atrial fibrillation (HCC) Diabetes mellitus (HCC) Heart valve disease Hypertension Social History Tobacco Use Smoking status: Never Smokeless tobacco: Never Substance Use Topics Alcohol use: Never Surgical History Past Surgical History: Procedure Laterality Date APPENDECTOMY HYSTERECTOMY TOTAL HIP ARTHROPLASTY Right 12/02/2019 TOTAL KNEE ARTHROPLASTY Left 01/31/2009 TOTAL KNEE ARTHROPLASTY Right Family History Family History Problem Relation Name (more content not included)...[facility] 04-02-2024 NotePre TAVR phone call placed. Reviewed, procedure, instructions and meds. Pt verbalizes understanding. Pt knows to call [phone] with any concerns. Gloria Davis APRN notified for prep for proc orders. Diagnosis: Procedure being done: TAVR Date/time of procedure: 04/06/24 11 am Surgeon: Dr. Poon 2nd surgeon: Dr. Key Admission type: To be admitted Anesthesia: MAC Completed: H&P/EKG/CBC/CMP/CXR Date completed: 04/01/24 Additional orders will need T&S morning of [facility] 04-01-2024 NotePatient: Lito Gonzalez Procedure Information Date/Time: 04/06/24 1100 Procedures: TRANSCATHETER AORTIC VALVE REPLACEMENT, TRANSTHORACIC ECHOCARDIOGRAM TRANSCATHETER AORTIC VALVE REPLACEMENT, TRANSTHORACIC ECHOCARDIOGRAM (Chest) Location: [facility] Operating Room Surgeons: Srinivasa Poon MD; Renzo Horta DO Relevant Problems No relevant active problems Past Medical History: Past Medical History: No date: Atrial fibrillation (HCC) No date: Diabetes mellitus (HCC) No date: Heart valve disease No date: Hypertension Past Surgical History: Past Surgical History: No date: APPENDECTOMY No date: HYSTERECTOMY 12/02/2019: TOTAL HIP ARTHROPLASTY; Right 01/31/2009: TOTAL KNEE ARTHROPLASTY; Left No date: TOTAL KNEE ARTHROPLASTY; Right Social History: TOBACCO: reports that she has never smoked. She has never used smokeless tobacco. ETOH: reports no history of alcohol use. Social History Substance and Sexual Activity Drug Use Not on file Family History: Family History Problem Relation Name Age of Onset ? Breast cancer Mother ? COPD Father ? Coronary artery disease Father Screening: unknown Clinical information reviewed: Physical Exam Airway Mallampati: III TM distance: >3 FB Neck ROM: full Mouth Open: normalendotracheal tube not in place Cardiovascular Dental dentition normal Pulmonary Abdominal Anesthesia Plan patient is NPO appropriate Any family history or previous problems with anesthesia no ASA 4 MAC Any family history or previous problems with anesthesia no The patient is not a current smoker. Anesthetic plan and risks discussed with patient. ERAS Type 04/01/24 Chart reviewed. DOS orders for anesthesia placed according to ERAS protocol. Tavr, no eras Tavr checklist complete, documents in media under external cardiology Radha Marquez, LAB SUPPORT TECH - WALL MAN JUDITH Screening Labs: No results found for: WBC, HGB, HCT, MCV, PLT No results found for: NA, K, CL, CO2, BUN, CREATININE, GLUCOSE, CALCIUM, PROT, BILIRUBINFL, ALKPHOS, AST, ALT, EGFR, GLOB No echocardiogram results found for the past 14 days 03/10/24 ECG 12-LEAD 03/12/2024 10:37 PM (Final) Narrative Sinus Rhythm -Right bundle branch block and right axis -possible right ventricular hypertrophy -consider pulmonary disease. -Old anteroseptal infarct. -T-abnormality -Possible Anterolateral and inferior ischemia. ABNORMAL Signed by: Srinivasa Poon MD on 03/12/2024 10:37 PM Equipment Requests: Additional Equipment RequestsSherry [place] [id number] NoteTAVR procedure, instructions reviewed with pt and . Patient scheduled for TAVR on 04/06/24 at 11 am Will report to [facility] by 9 am Can park in the [facility] Parking Deck or use Assistant Paralegal parking at the [facility] entrance Plan on overnight stay in the hospital Will not be able to drive for 1 week after procedure Will receive moderate sedation through the IV, will be relaxed but awake during the procedure Nothing to eat or drink after midnight Instructed to take morning medications including ASA as prescribed with small sip of water EXCEPT to HOLD vitamins/supplements/glimepiride morning of surgery Hold metformin 2 days prior, last dose 04/03 Will call with any questions/concerns Pre-op testing done in [place] at least 1 week before. Provided patient with lab orders. CXR completed in December Patient/family verbalized understanding.[place] [id number] Note Dx: Procedure: TAVR Date/Time: 04/06/24 at 11:00a Surgeon: SHEILA Location: [facility] Admission: [facility] Anesthesia: [place] [id number] Evaluation + Plan note* Assessment & Plan Note - Ira Aquino MD - 03/10/2024 4:42 PM EDTAssociated Problem(s): Dizziness Likely multifactorial Encouraged patient to change positions slowly to avoid dizziness and falls Encouraged continued follow-up with PCP (primary care provider) and cardiology regarding her dizziness - patient and agree/confirm understanding monitor [address] Sw[address] [id number] Miscellaneous Notes* Assessment & Plan Note - Ira Aquino MD - 03/10/2024 4:42 PM EDTAssociated Problem(s): Dizziness Likely multifactorial Encouraged patient to change positions slowly to avoid dizziness and falls Encouraged continued follow-up with PCP (primary care provider) and cardiology regarding her dizziness - patient and agree/confirm understanding monitor * Assessment & Plan Note - Ira Aquino MD - 03/10/2024 4:41 PM EDTAssociated Problem(s): Memory loss Chronic Patient had had c/o memory loss for AWV (Annual Wellness Visit) from 02/25/24 but declined a geriatrics referral at that time I strongly encouraged patient/ to have patient schedule appt with us at [facility] for baseline memory testing I suspect either MCI (Mild Cognitive Impairment) or mild dementia based on my conversation with patient in our visit today * Assessment & Plan Note - Ira Aquino MD - 03/10/2024 4:28 PM EDTAssociated Problem(s): Polypharmacy Reviewed med list with patient/ Advised patient speak with PCP (primary care provider) regarding alternative medication for diabetes other than glimepiride given risk of falls, hypoglycemia -patient/ amenable to this suggestion Recommended patient begin to use pillbox. * Assessment & Plan Note - Ira Aquino MD - 03/10/2024 4:21 PM EDTAssociated Problem(s): Daytime hypersomnolence Chronic Never had sleep apnea testing Encouraged her to discuss with her PCP (primary care provider) regarding JUDITH (Obstructive Sleep Apnea) evaluation with sleep study I suspect likely component of untreated JUDITH (Obstructive Sleep Apnea) in addition to obesity hypoventilation syndrome. Treatment of this could improve her overall sleep quality, reduce fatigue, and improve quality of life. Patient/ voice understanding and agreement with this plan. * Assessment & Plan Note - Ira Aquino MD - 03/10/2024 4:20 PM EDTAssociated Problem(s): Type 2 diabetes mellitus, without long-term current use of insulin (HCC) 02/19/24 A1c 7.9% Discussed with patient and her the recommendation to have education surrounding how to use new glucometer/test strips so she can check her BG at home due to diabetes and falls as well as dizziness and patient taking glimepiride which has high risk of causing hypoglycemia, dizziness, confusion, falls, etc. - patient/ amenable to this recommendation * Assessment & Plan Note - Ira Aquino MD - 03/10/2024 4:16 PM EDTAssociated Problem(s): Severe aortic stenosis I agree with cardiology plan as discussed with ornamenter hand on same date regarding next steps for further workup/treatment of cardiac disease which likely includes TAVR. On this date of evaluation, the patient has sufficient understanding of procedure(s) to consent to the procedure(s) being discussed and has adequate social support(s). documented in this encounterSSelect Medical Specialty Hospital - [facility] [id number] Evaluation + Plan note* Assessment & Plan Note - Ira Aquino MD - 03/10/2024 4:41 PM EDTAssociated Problem(s): Memory loss Chronic Patient had had c/o memory loss for AWV (Annual Wellness Visit) from 02/25/24 but declined a geriatrics referral at that time I strongly encouraged patient/ to have patient schedule appt with us at [facility] for baseline memory testing I suspect either MCI (Mild Cognitive Impairment) or mild dementia based on my conversation with patient in our visit today [facility] [id number] Evaluation + Plan note* Assessment & Plan Note - Ira Aquino MD - 03/10/2024 4:28 PM EDTAssociated Problem(s): Polypharmacy Reviewed med list with patient/ Advised patient speak with PCP (primary care provider) regarding alternative medication for diabetes other than glimepiride given risk of falls, hypoglycemia -patient/ amenable to this suggestion Recommended patient begin to use pillbox. [facility] [id number] Evaluation + Plan note* Assessment & Plan Note - Ira Aquino MD - 03/10/2024 4:21 PM EDTAssociated Problem(s): Daytime hypersomnolence Chronic Never had sleep apnea testing Encouraged her to discuss with her PCP (primary care provider) regarding JUDITH (Obstructive Sleep Apnea) evaluation with sleep study I suspect likely component of untreated JUDITH (Obstructive Sleep Apnea) in addition to obesity hypoventilation syndrome. Treatment of this could improve her overall sleep quality, reduce fatigue, and improve quality of life. Patient/ voice understanding and agreement with this plan. [facility] [id number] Evaluation + Plan note* Assessment & Plan Note - Ira Aquino MD - 03/10/2024 4:20 PM EDTAssociated Problem(s): Type 2 diabetes mellitus, without long-term current use of insulin (HCC) 02/19/24 A1c 7.9% Discussed with patient and her the recommendation to have education surrounding how to use new glucometer/test strips so she can check her BG at home due to diabetes and falls as well as dizziness and patient taking glimepiride which has high risk of causing hypoglycemia, dizziness, confusion, falls, etc. - patient/ amenable to this recommendation [place] [id number] Note02/19/24 A1c 7.9% Discussed with patient and her the recommendation to have education surrounding how to use new glucometer/test strips so she can check her BG at home due to diabetes and falls as well as dizziness and patient taking glimepiride which has high risk of causing hypoglycemia, dizziness, confusion, falls, etc. - patient/ amenable to this [facility]08-13-2024 Evaluation + Plan note* Assessment & Plan Note - Ira Aquino MD - 03/10/2024 4:16 PM EDTAssociated Problem(s): Severe aortic stenosis I agree with cardiology plan as discussed with ornamenter hand on same date regarding next steps for further workup/treatment of cardiac disease which likely includes TAVR. On this date of evaluation, the patient has sufficient understanding of procedure(s) to consent to the procedure(s) being discussed and has adequate social support(s). [facility] [id number] History of Present illness Narrative* Ira Aquino MD - 03/10/2024 3:30 PM EDT Images from the original note were not included. [facility] [address] [facility] [id number] Dept: [phone] Dept Loc: [phone] Today's Visit Location: TAVR (transcather aortic valve replacement) Clinic [facility] [address] [place] [address] Visit type: [facility] Assessment at TAVR (transcather aortic valve replacement) Clinic Visit Date: 03/10/2024 Reason for Visit: Other (Aortic Stenosis) Assessment and Plan 1. Severe aortic stenosis Assessment & Plan: I agree with cardiology plan as discussed with ornamenter hand on same date regarding next steps for further workup/treatment of cardiac disease which likely includes TAVR. On this date of evaluation, the patient has sufficient understanding of procedure(s) to consent to the procedure(s) being discussed and has adequate social support(s). 2. Memory loss Assessment & Plan: Chronic Patient had had c/o memory loss for AWV (Annual Wellness Visit) from 02/25/24 but declined a geriatrics referral at that time I strongly encouraged patient/ to have patient schedule appt with us at [facility] for baseline memory testing I suspect either MCI (Mild Cognitive Impairment) or mild dementia based on my conversation with patient in our visit today 3. Dizziness Assessment & Plan: Likely multifactorial Encouraged patient to change positions slowly to avoid dizziness and falls Encouraged continued follow-up with PCP (primary care provider) and cardiology regarding her dizziness - patient and agree/confirm understanding monitor 4. Daytime hypersomnolence Assessment & Plan: Chronic Never had sleep apnea testing Encouraged her to discuss with her PCP (primary care provider) regarding JUDITH (Obstructive Sleep Apnea) evaluation with sleep study I suspect likely component of untreated JUDITH (Obstructive Sleep Apnea) in addition to obesity hypoventilation syndrome. Treatment of this could improve her overall sleep quality, reduce fatigue, and improve quality of life. Patient/ voice understanding and agreement with this plan. 5. Polypharmacy Assessment & Plan: Reviewed med list with patient/ Advised patient speak with PCP (primary care provider) regarding alternative medication for diabetes other than glimepiride given risk of falls, hypoglycemia -patient/ amenable to this suggestion Recommended patient begin to use pillbox. Patient and/or patient's family instructed of the following: GERIATRICS DISCHARGE INSTRUCTIONS: Please talk with your PCP (primary care provider) Sharon Mcclellan regarding possible sleep apnea testing which can reduce fatigue if you have it diagnosed and start CPAP if necessary. Please change positions slowly to avoid dizziness and falls. Consider getting a falls detection bracelet or emergency response necklace. Please talk with your PCP (primary care provider) to check how to use your glucometer and test strips. Please BEGIN TO USE (or continue to use) your pillbox and have someone else (like a trusted friend or family member) look over your pillbox (AT LEAST ONCE A WEEK) to make sure you're taking what you are supposed to be taking and not doubling up or missing doses (which can be dangerous). Subjective HPI: Lito Gonzalez is a 73 y.o. female who presents to TAVR (transcather aortic valve replacement) clinic for a combined geriatric/cardiac assessment. The patient is new to me. TAVR Clinic Geriatrics Screening Tool: Presence of cognitive decline (yes=2 points, no=0 points) 2 Living alone with no help from partner/family (yes=1 point, no=0 points) 0 Reduce mobility or falls in the last 6 mos (yes=1 point, no=0 points) 1 Hospitalized in the last 3 mos (yes=1 point, no=0 points) 0 Polypharmacy (>5 medications daily) (yes=1 point, no=0 points)1 Total points: 4 History obtained from caregiver(s): Reece accompanies patient to today's appt AWV (Annual Wellness Visit) performed on 02/25/24 per Care Everywhere indicates: worsening memory, frequent imbalance/falls. Noticing memory is not as good. Some concerns about this. Takes time to remember. More falls, balance is not as good because of arthritis. Using a walker outside of the home now. PMHx of Hypertension, SVT, Paroxysmal A fib, COVID 04/2020, Diabetes, previous cath revealed no coronary disease; CTA performed on 03/10/24. Examples of difficulties patient is experiencing: Positional dizziness Transthoracic Echo (TTE): 01/08/2024 - MG56, EF 70%, BENITA 0.7cm (per my communication with cardiologyNurse Practitioner America Davis) Per note from Julienne Kumar from 03/06/24, she documents: Per note, patient with past medical history HTN, SVT, paroxysmal A Fib, DM. Pt had cardiology follow up on 12/03/2023 where she reported positional dizzines, denied any other symptoms. Echocardiogram was ordered to evaluate status of aortic stenosis, previously moderate with mean gradient 32 mmHg on last echocardiogram in 2021. Echo was completed on 01/08/2024 which demonstrated EF 70%, mild aortic valve insufficiency, severe aortic stenosis with mean gradient 56 mmHg. Cardiac catheterization completed on 01/20/2024 demonstrated normal coronary arteries and severe aortic valve stenosis with recommendation of TAVR. History obtained from patient: Increased fatigue. Less exercise tolerance. Must take a break long term up stairs. Dizzy with quick changes in position. I don't walk much so I don't have a lot of shortness of breath. But I just feel like I am tired orfatigued a lot. Doesn't become short of breath just walking in house along main floor. Doesn't use any ambulatory aide in home but does use walker/wheelchair when out and about. daytime fatigue/hypersomnolence: patient advised Please talk with your PCP (primary care provider)Sharon Mcclellan regarding possible sleep apnea testing which can reduce fatigue if you have it diagnosed and start CPAP if necessary. Able to identify : YES Current events: Does know current [place] President (TEAJ PRICE Nimcophill). What is the name of the recent virus/pandemic? Patient does know about COVID19 pandemic. CAN'T RECALL THE NAME of covid despite oh I had that twice! Type 2 Diabetes Takes glimepiride 4mg daily, metformin 1000mg bid Patient does not check BG levels at home recently bc glucometer out of order. Reviewed progress notes completed by cardiology staff (MIKA) located in cardiology note performed onsame date. Review of Systems Constitutional: Positive for fatigue. Negative for activity change, chills, diaphoresis and fever. HENT: Negative for nosebleeds and trouble swallowing. Eyes: Negative for discharge and visual disturbance. Respiratory: Positive for shortness of breath (on exertion going up stairs). Negative for apnea, cough, chest tightness and wheezing. Cardiovascular: Positive for leg swelling. Negative for chest pain and palpitations. Gastrointestinal: Negative for abdominal distention, abdominal pain, blood in stool, diarrhea, nausea and vomiting. Endocrine: Negative for cold intolerance and heat intolerance. Genitourinary: Negative for hematuria. Musculoskeletal: Positive for gait problem (in wheelchair during visit; uses walker). Negative for myalgias. Skin: Negative for color change and rash. Neurological: Positive for syncope (possible syncopal episode while sweeping). Negative for dizziness, seizures, facial asymmetry, speech difficulty, weakness, light-headedness, numbness and headaches. Hematological: Does not bruise/bleed easily. Psychiatric/Behavioral: Negative for dysphoric mood. Allergies Allergen Reactions Atorvastatin Rash red itchy rash around neck--resolved after stopping med; hands froze with stiffness that started a week after taking a couple pills--resolving Current Outpatient Medications Medication Sig Dispense Refill aspirin 81 MG EC tablet Take 81 mg by mouth daily. calcium carbonate 500 MG chewable tablet Chew 500 mg daily. glimepiride (Amaryl) 4 MG tablet Take 1 tablet by mouth in the morning and 1 tablet in the evening.Take with meals. Whlybwpyxfs-Eiuhovyjv-Lpx C-Mn (GLUCOSAMINE 1500 COMPLEX PO) Take by mouth. [employer] Blood Glucose Test test strip Test blood sugar(s) 1 time daily as directed. Dx: Type 2 DM - Controlled E11.9 Insulin: No metFORMIN (Glucophage) 500 MG tablet Take 2 tablets by mouth in the morning and 2 tablets in the evening. Take with meals. metoprolol succinate XL (Toprol-XL) 25 MG 24 hr tablet Take 25 mg by mouth daily. No current facility-administered medications for this visit. Past Medical History: Diagnosis Date Atrial fibrillation (HCC) Diabetes mellitus (HCC) Heart valve disease Hypertension Social History Tobacco Use Smoking status: Never Smokeless tobacco: Never Substance Use Topics Alcohol use: Never Past Surgical History: Procedure Laterality Date APPENDECTOMY HYSTERECTOMY TOTAL HIP ARTHROPLASTY Right 12/02/2019 TOTAL KNEE ARTHROPLASTY Left 01/31/2009 TOTAL KNEE ARTHROPLASTY Right Family History Problem Relation Name Age of Onset Breast cancer Mother COPD Father Coronary artery disease Father Family Status Relation Name Status Mother (Not Specified) Father (Not Specified) No partnership data on file Functional Status (I: Independent, A: Assisted, D: Dependent) ADLs I A D Notes Bathing [x] [] [] Uses walk in shower Dressing [x] [] [] Toileting [x] [] [] Transfers [x] [] [] Feeding [x] [] [] Ambulation [x] [] [] Assistive devices: Wheelchair and walker (normally just uses walker) IADLs I A D Telephone [x] [] [] Transportation [x] [] [] Driving safety concerns: yes; Pt has had no recent automobile accidents, tickets, getting lost, or unexplained car damage. Family rides with patient and has no concerns. Pt/family is encouraged to notify us and PCP (primary care provider) if/when any of the above warning signs appear for patient driving safety risk. Shopping [x] [] [] Meal prep [x] [] [] No recent safety issues like leaving stove on or leaving water running. Housework [x] [] [] Patient just does what she can. Not like I used to Medications [x] [] [] Finances [x] [] [] Patient does still drive. Patient denies any recent tickets/accidents/getting lost/unexplained car damage. Objective Vitals: BP 128/72 (BP Location: Left arm, Patient Position: Sitting, BP Cuff Size: Adult) Pulse 87 Ht 4' 11 (1.499 m) Wt 249 lb 1.9 oz (113 kg) SpO2 97% BMI 50.32 kg/m Wt Readings from Last 3 Encounters: 03/10/24 249 lb 1.9 oz (113 kg) 03/10/24 250 lb (113 kg) Limited Physical Exam performed in office visit today. A&Ox3 Gait is: patient using Wheelchair. Normally uses walker at home. Must heavily rely upon pushing Wheelchair from behind for balance. Easily fatigued on walking short distances in office today. Mainly discussion at today's appt surrounding patient's chronic medical comorbidities and decision upon next appropriate steps to be taken in cardiac workup. Data Reviewed and Summarized Old records reviewed and summarized here: 02/19/24 CMP reviewed/normal 02/19/24 A1c 7.9% 02/19/24 CBC (blood count test) reviewed/normal with Hb 14.5 I spent total time of 61 minutes face to face with the patient and/or family discussing the diagnosis and importance of compliance with the treatment plan as well as documenting on the day of the visit. In addition, that total time includes the following: -Reviewing previous notes, -Reviewing labs, -Obtaining and/or reviewing separately obtained history, -Communicating results to the patient/family/caregiver, -Counseling/educating the patient/family/caregiver, - Documenting clinical information in the patients electronic record, and - Coordination of care for the patient (Please note: Portions of this note were completed with a voice recognition program. Efforts were made to edit the dictations but occasionally words and phrases are mis-transcribed.) documented in this [facility]08-13-2024 Instructions* Patient Instructions* Ira Aquino MD - 03/10/2024 3:30 PM EDT GERIATRICS DISCHARGE INSTRUCTIONS: Please talk with your PCP (primary care provider) Sharon Mcclellan regarding possible sleep apnea testing which can reduce fatigue if you have it diagnosed and start CPAP if necessary. Please change positions slowly to avoid dizziness and falls. Consider getting a falls detection bracelet or emergency response necklace. Please talk with your PCP (primary care provider) to check how to use your glucometer and test strips. Please BEGIN TO USE (or continue to use) your pillbox and have someone else (like a trusted friend or family member) look over your pillbox (AT LEAST ONCE A WEEK) to make sure you're taking what you are supposed to be taking and not doubling up or missing doses (which can be dangerous). documented in this [facility]08-13-2024 History of Present illness Narrative* Renzo Horta, - 03/10/2024 3:00 PM EDT Images from the original note were not included. [facility]: Cardiothoracic Surgery Multidisciplinary Heart Valve Clinic Date: 03/10/24 Patient:Lito Gonzalez 1950 73 y.o. female [id number] Subjective: HPI: Lito Gonzalez [address] Hubbard is being evaluated for aortic valve stenosis. Echocardiogram completed on 01/08/2024 showed severe aortic valve stenosis with peak/mean gradients 85/56 mm Hg. Per note, patient with past medical history HTN, SVT, paroxysmal A Fib, DM. Pt had cardiology follow up on 12/03/2023 where she reported positional dizzines, denied any other symptoms. Echocardiogram was ordered to evaluate status of aortic stenosis, previously moderate with mean gradient 32 mmHg on last echocardiogram in 2021. Echo was completed on 01/08/2024 which demonstrated EF 70%, mild aortic valve insufficiency, severe aortic stenosis with mean gradient 56 mmHg. Cardiac catheterization completed on 01/20/2024 demonstrated normal coronary arteries and severe aortic valve stenosis with recommendation of TAVR. Pt scheduled for CTA TAVR on 03/10/2024. Medical History Past Medical History: Diagnosis Date Atrial fibrillation (HCC) Diabetes mellitus (HCC) Heart valve disease Hypertension Blood thinner - none Cardiac Catheterization 01/20/2024 Transthoracic Echocardiogram 01/08/2024 Review of Systems Constitutional: Positive for fatigue. Negative for activity change, chills, diaphoresis and fever. HENT: Negative for nosebleeds and trouble swallowing. Eyes: Negative for discharge and visual disturbance. Respiratory: Positive for shortness of breath (on exertion going up stairs). Negative for apnea, cough, chest tightness and wheezing. Cardiovascular: Positive for leg swelling. Negative for chest pain and palpitations. Gastrointestinal: Negative for abdominal distention, abdominal pain, blood in stool, diarrhea, nausea and vomiting. Endocrine: Negative for cold intolerance and heat intolerance. Genitourinary: Negative for hematuria. Musculoskeletal: Positive for gait problem (in wheelchair during visit; uses walker). Negative for myalgias. Skin: Negative for color change and rash. Neurological: Positive for syncope (possible syncopal episode while sweeping). Negative for dizziness, seizures, facial asymmetry, speech difficulty, weakness, light-headedness, numbness and headaches. Hematological: Does not bruise/bleed easily. Psychiatric/Behavioral: Negative for dysphoric mood. Allergies: Atorvastatin Past Medical History: has a past medical history of Atrial fibrillation (HCC), Diabetes mellitus (HCC), Heart valve disease, and Hypertension. Past Surgical History: has a past surgical history that includes Appendectomy; Total hip arthroplasty (Right, 12/02/2019);Hysterectomy; Total knee arthroplasty (Left, 01/31/2009); and Total knee arthroplasty (Right). Social History: reports that she has never smoked. She has never used smokeless tobacco. She reports that she does not drink alcohol. Family History: family history includes Breast cancer in her mother; COPD in her father; Coronary artery disease inher father. Medications: Prior to Admission medications Medication Sig Start Date End Date Taking? Authorizing Provider aspirin 81 MG EC tablet Take 81 mg by mouth daily. Historical Provider, calcium carbonate 500 MG chewable tablet Chew 500 mg daily. Historical Provider, glimepiride (Amaryl) 4 MG tablet Take 1 tablet by mouth in the morning and 1 tablet in the evening.Take with meals. 11/15/23 Historical Provider, Aijwhfdaigg-Bmaozfzdt-Wfh C-Mn (GLUCOSAMINE 1500 COMPLEX PO) Take by mouth. Historical Provider, metFORMIN (Glucophage) 500 MG tablet Take 2 tablets by mouth in the morning and 2 tablets in the evening. Take with meals. 07/31/23 Historical Provider, metoprolol succinate XL (Toprol-XL) 25 MG 24 hr tablet Take 25 mg by mouth daily. 12/19/23 Historical Provider, Objective: BP 128/72 (BP Location: Left arm, Patient Position: Sitting, BP Cuff Size: Adult) Pulse 87 Ht 4' 11 (1.499 m) Wt 249 lb 1.9 oz (113 kg) SpO2 97% BMI 50.32 kg/m Physical Exam Vitals: BP 128/72 (BP Location: Left arm, Patient Position: Sitting, BP Cuff Size: Adult) Pulse 87 Ht 4' 11 (1.499 m) Wt 249 lb 1.9 oz (113 kg) SpO2 97% BMI 50.32 kg/m Constitutional: General: Not in acute distress. Appearance: Normal appearance. Not toxic-appearing. Ear, nose, mouth: Bilateral external ear and nose normal. Nose: Nose normal. Mouth: Appearance normal, no bleeding, moist mucus membranes Eyes: General: No scleral icterus. No discharge from bilateral eyes Extraocular Movements: Extraocular movements intact. Pupils equal and reactive bilaterally Cardiovascular: Heart: Regular rhythm. +murmur. Vascular: No carotid bruit. + radiation to bilateral carotids Edema: + edema in bilateral lower extremities Pulmonary: Effort: Pulmonary effort is normal. No respiratory distress. Breath sounds: Normal breath sounds. No wheezing. Chest wall: No tenderness. Abdominal: Appearance: Not distended Palpations: There is no abdominal tenderness, no guarding. Musculoskeletal: Bilateral upper and lower extremities: Normal range of motion, no deformity Head: Normocephalic and atraumatic. Neck: Normal range of motion and neck supple. No muscular tenderness. Lymphadenopathy: Cervical: No cervical adenopathy. Skin: General: Skin is warm and dry. Coloration: Skin is not jaundiced. Neurological: General: No focal deficit present. Cranial Nerves: No obvious cranial nerve deficit. Psychiatric: Mood and Affect: Mood normal. Thought Content: Thought content normal. Patient has good judgement and insight Mental Status: Alert and oriented to place, person, and time. Labs: Reviewed in EMR No results found for: WBC, HGB, HCT, MCV, PLT No results found for: NA, K, CL, CO2, BUN, CREATININE, GLUCOSE, CALCIUM Diagnostics: Reviewed in EMR Assessment/Plan: Mrs. Gonzalez is a pleasant 73 year old female who is seen with family today in valve clinic. They have known aortic stenosis which has progressed to severe and are now having increased symptoms. They would benefit both in quantity and quality of life with a valve replacement. The procedural details as well as risks, benefits and alteratives were discussed with them. They would not pursue if this required open heart surgery primarily but are interested in percutaneous options. This is very reasonable given their age, functional status and comorbidities. They are open to surgical salvage if the unlikely need arose. The patient and her families questions were answered to their satisfaction and they would like to proceed toward TAVR. Plan for CTA TAVR in near future with subsequent discussion at multidisciplinary conference and TAVR in the near future. Patient consents to surgical bailout: [x] Yes [] No If No why: ATTESTATION I personally performed the evaluation and management of Lito Gonzalez in the development of a treatment plan for this patient. I personally interviewed the patient and performed an individual physical examination. In addition, I discussed the patient's condition and treatment options with them. I have also reviewed and agree with the past medical, family and social history unless otherwise noted. All of the patient's questions were answered. I personally spent 60 minutes of time between the face to face encounter, physical exam, reviewing the medical history, coordinating the patient's care, cou nseling/educating the patient, ordering prescriptions/medications/tests/procedures, interpreting results and documenting clinical information in the patient's electronic health record on the day of e encounter. Electronically signed by Renzo Horta DO, TARIQ KAM Patient Care Team: Abby Mcclellan as PCP - General (Internal Medicine) Disclaimers: INFORMED CONSENT: The nature and purpose of the proposed treatment and/or procedure have been discussed. The risks and benefits of the proposed treatment or procedures have been reviewed. Alternatives have been reviewed in addition to the risks and benefits of not receiving treatments or undergoingprocedures. Pursuant to this discussion, the patient agrees to undergo the proposed treatment or procedure. Captured images seen in this note are not a substitute for a comprehensive interpretation of the entire data set as reflected by the interpreting physician with regard to radiology, echocardiography,and other diagnostic images. documented in this [facility]08-13-2024 History of Present illness Narrative* Srinivasa Poon MD - 03/10/2024 2:30 PM EDT Images from the original note were not included. [facility] [address] [id number] Dept: [phone] Dept Visit type: New : 1950 Reason for Visit: Cardiac Valve Problem and New Patient (Heart Valve Clinic) Assessment and Plan 1. Nonrheumatic aortic valve stenosis 2. PAF (paroxysmal atrial fibrillation) (HCC) - ECG 12 lead - CLINIC PERFORMED This is a very pleasant 73 y.o. female with severe and symptomatic aortic stenosis. she is in need of aortic valve replacement. Will get a CTA for anatomic planning. If favorable anatomy for transfemoral TAVR, will likely proceed with TAVR. This decision was made after multidisciplinary discussion, using a shared decision making strategy. CT surgery also saw patient to aide in discussion. It was a pleasure seeing your patient in the office today. Please do not hesitate to call me with any questions. Follow up for Recheck after TAVR. Subjective HPI Lito Gonzalez is a very pleasant 73 y.o. female who is here for evaluation of her aortic valve disease. her symptoms include progressive dyspnea on exertion and fatigue. her most recent echo (reviewed by me today) shows severe aortic stenosis with normal EF and mean aortic valve gradient 56mmHg. Cathshowed minimal CAD. Review of Systems Constitutional: Positive for fatigue. Negative for activity change, chills, diaphoresis and fever. HENT: Negative for nosebleeds and trouble swallowing. Eyes: Negative for discharge and visual disturbance. Respiratory: Positive for shortness of breath (on exertion going up to the stairs). Negative for apnea, cough, chest tightness and wheezing. Cardiovascular: Negative for chest pain, palpitations and leg swelling. Gastrointestinal: Negative for abdominal distention, abdominal pain, blood in stool, diarrhea, nausea and vomiting. Endocrine: Negative for cold intolerance and heat intolerance. Genitourinary: Negative for hematuria. Musculoskeletal: Positive for gait problem (in wheelchair during visit, uses walker). Negative for myalgias. Skin: Negative for color change and rash. Neurological: Positive for syncope (possible syncopal episode while sweeping). Negative for dizziness, seizures, facial asymmetry, speech difficulty, weakness, light-headedness, numbness and headaches. Hematological: Does not bruise/bleed easily. Psychiatric/Behavioral: Positive for confusion (known memory loss). Negative for dysphoric mood. Allergies Allergen Reactions Atorvastatin Rash red itchy rash around neck--resolved after stopping med; hands froze with stiffness that started a week after taking a couple pills--resolving Outpatient Medications Prior to Visit Medication Sig Dispense Refill aspirin 81 MG EC tablet Take 81 mg by mouth daily. calcium carbonate 500 MG chewable tablet Chew 500 mg daily. glimepiride (Amaryl) 4 MG tablet Take 1 tablet by mouth in the morning and 1 tablet in the evening.Take with meals. Cxeugesvlia-Duobagtqg-Gcq C-Mn (GLUCOSAMINE 1500 COMPLEX PO) Take by mouth. [employer] Blood Glucose Test test strip Test blood sugar(s) 1 time daily as directed. Dx: Type 2 DM - Controlled E11.9 Insulin: No metFORMIN (Glucophage) 500 MG tablet Take 2 tablets by mouth in the morning and 2 tablets in the evening. Take with meals. metoprolol succinate XL (Toprol-XL) 25 MG 24 hr tablet Take 25 mg by mouth daily. No facility-administered medications prior to visit. Past Medical History: Diagnosis Date Atrial fibrillation (HCC) Diabetes mellitus (HCC) Heart valve disease Hypertension Social History Tobacco Use Smoking status: Never Smokeless tobacco: Never Substance Use Topics Alcohol use: Never Past Surgical History: Procedure Laterality Date APPENDECTOMY HYSTERECTOMY TOTAL HIP ARTHROPLASTY Right 12/02/2019 TOTAL KNEE ARTHROPLASTY Left 01/31/2009 TOTAL KNEE ARTHROPLASTY Right Family History Problem Relation Name Age of Onset Breast cancer Mother COPD Father Coronary artery disease Father Objective Vitals: 03/10/24 1505 BP: 128/72 BP Location: Left arm Patient Position: Sitting BP Cuff Size: Large adult Pulse: 87 SpO2: 97% Weight: 250 lb (113 kg) Height: 4' 11.5 (1.511 m) Physical Exam Constitutional: General: She is not in acute distress. Appearance: She is not diaphoretic. HENT: Head: Normocephalic. Nose: Nose normal. Mouth/Throat: Mouth: Mucous membranes are moist. Pharynx: No oropharyngeal exudate. Eyes: General: No scleral icterus. Right eye: No discharge. Left eye: No discharge. Neck: Thyroid: No thyromegaly. Vascular: No carotid bruit or JVD. Cardiovascular: Rate and Rhythm: Normal rate and regular rhythm. Pulses: Normal pulses. Heart sounds: Murmur heard. Systolic murmur is present with a grade of 3/6. Pulmonary: Effort: Pulmonary effort is normal. Breath sounds: Normal breath sounds. Abdominal: General: Bowel sounds are normal. There is no distension. Palpations: There is no hepatomegaly. Tenderness: There is no abdominal tenderness. Musculoskeletal: General: Normal range of motion. Cervical back: Normal range of motion. Right lower leg: No edema. Left lower leg: No edema. Skin: General: Skin is warm and dry. Neurological: Mental Status: She is oriented to person, place, and time. Psychiatric: Mood and Affect: Mood normal. Behavior: Behavior normal. Data Reviewed and Summarized No results found for: EFBP, PLVEF, LVEFPHYS, LVEF2D, EF Review of tests/labs done/ordered within my specialty: EKG in office: Review of tests/labs done/ordered outside my specialty: Independent interpretation of tests: I personally reviewed the images from Lito Gonzalez's most recent TTE and cath in the office today, to help with medical decision making. My interpretation is noted in the HPI section of this note. Srinivasa Poon MD documented in this [facility]08-09-2024 Telephone encounter Note* Telephone Encounter - Abby Mcclellan MD - 03/06/2024 6:06 PM EDT The following approved medication requests have been transmitted electronically. Requested Prescriptions Signed Prescriptions Disp Refills metFORMIN (GLUCOPHAGE) 500 mg tablet 180 tablet 3 Sig: Take 2 tablets by mouth two times a day with meals. Authorizing Provider: ABBY MCCLELLAN MD [facility]08-09-2024 Miscellaneous Notes* Telephone Encounter - Abby Mcclellan MD - 03/06/2024 6:06 PM EDT The following approved medication requests have been transmitted electronically. Requested Prescriptions Signed Prescriptions Disp Refills metFORMIN (GLUCOPHAGE) 500 mg tablet 180 tablet 3 Sig: Take 2 tablets by mouth two times a day with meals. Authorizing Provider: ABBY MCCLELLAN MD * Telephone Encounter - Chrissy Dawn LPN - 03/06/2024 2:03 PM EDT In review this is a new pharmacy. Rx would be needed. * Telephone Encounter - Keisha Petersen - 03/06/2024 1:32 PM EDT Prescription Refill Information The patient has been identified by name and date of : Yes Caregiver verified no other encounters exist for this prescription request: Yes Caregiver confirmed with patient/requestor that no other refills are due, in the near future, with this provider at this time: Yes The last office visit in the department: 02-25-24 Does the patient have a future office visit with this provider/department: Yes Requested Prescriptions Pending Prescriptions Disp Refills metFORMIN (GLUCOPHAGE) 500 mg tablet 180 tablet 3 Sig: Take 2 tablets by mouth two times a day with meals. Keisha Petersen March 06, 2024 1:33 PM [facility] Tele[facility] encounter Note * Telephone Encounter - Chrissy Dawn LPN - 03/06/2024 2:03 PM EDT In review this is a new pharmacy. Rx would be needed. [facility]08-09-2024 Telephone encounter Note* Telephone Encounter - Keisha Petersen - 03/06/2024 1:32 PM EDT Prescription Refill Information The patient has been identified by name and date of : Yes Caregiver verified no other encounters exist for this prescription request: Yes Caregiver confirmed with patient/requestor that no other refills are due, in the near future, with this provider at this time: Yes The last office visit in the department: 02-25-24 Does the patient have a future office visit with this provider/department: Yes Requested Prescriptions Pending Prescriptions Disp Refills metFORMIN (GLUCOPHAGE) 500 mg tablet 180 tablet 3 Sig: Take 2 tablets by mouth two times a day with meals. Keisha Petersen March 06, 2024 1:33 PM [facility]07-30-2024 Instructions* Patient Instructions* Kamlesh Acosta APRN.[employer] - 02/25/2024 11:31 AM EDT Screening schedule The following prevention plan is recommended: Depression Screening Never done Anxiety Screening Never done RSV Vaccine(1 - 1-dose 60+ series) Never done DTaP,Tdap,Td Vaccine(1 - Tdap) due on 09/07/2011 WHAT YOU CAN DO TO PREVENT FALLS Many falls can be prevented. By making some changes, you can lower your chances of falling. Four things YOU can do to prevent falls for you* and your caregiver 1. Begin a regular exercise program Exercise is one of the most important ways to lower your chances of falling. It makes you stronger and helps you feel better. Exercises that improve balance and coordination (like Silver Chi) are the most helpful. Lack of exercise leads to weakness and increases your chances of falling. Ask your doctor or health care provider about the best type of exercise program for you. 2. Have your health care provider review your medicines Have your doctor or pharmacist review all the medicines you take, even [id number] medicines. As you get older, the way medicines work in your body can change. Some medicines, or combinations of medicines, can make you sleepy or dizzy andcan cause you to fall. 3. Have your vision checked Have your eyes checked by an eye doctor at least once a year. You may be wearing the wrong glasses or have a condition like glaucoma or cataracts that limits your vision. Poor vision can increase your chances of falling. 4. Make your home safer About half of all falls happen at home. To make your home safer: Remove things you can trip over (like papers, books, clothes, and shoes) from stairs and places where you walk. Remove small throw rugs or use double-sided tape to keep the rugs from slipping. Keep items you use often in cabinets you can reach easily without using a step stool. Have grab bars put in next to your toilet and in the tub or shower. Use non-slip mats in the bathtub and on shower floors. Improve the lighting in your home. As you get older, you need brighter lights to see well. Hang light-weight curtains or shades to reduce glare. Have handrails and lights put in on all staircases. Wear shoes both inside and outside the house. Avoid going barefoot or wearing slippers. For more information, contact: Centers for Disease Control and Prevention www.cdc.gov/injury * This information may not apply if you have certain medical conditions. WHAT YOU CAN DO TO PREVENT FALLS Many falls can be prevented. By making some changes, you can lower your chances of falling. Four things YOU can do to prevent falls for you* and your caregiver 1. Begin a regular exercise program Exercise is one of the most important ways to lower your chances of falling. It makes you stronger and helps you feel better. Exercises that improve balance and coordination (like Silver Chi) are the most helpful. Lack of exercise leads to weakness and increases your chances of falling. Ask your doctor or health care provider about the best type of exercise program for you. 2. Have your health care provider review your medicines Have your doctor or pharmacist review all the medicines you take, even [id number] medicines. As you get older, the way medicines work in your body can change. Some medicines, or combinations of medicines, can make you sleepy or dizzy andcan cause you to fall. 3. Have your vision checked Have your eyes checked by an eye doctor at least once a year. You may be wearing the wrong glasses or have a condition like glaucoma or cataracts that limits your vision. Poor vision can increase your chances of falling. 4. Make your home safer About half of all falls happen at home. To make your home safer: Remove things you can trip over (like papers, books, clothes, and shoes) from stairs and places where you walk. Remove small throw rugs or use double-sided tape to keep the rugs from slipping. Keep items you use often in cabinets you can reach easily without using a step stool. Have grab bars put in next to your toilet and in the tub or shower. Use non-slip mats in the bathtub and on shower floors. Improve the lighting in your home. As you get older, you need brighter lights to see well. Hang light-weight curtains or shades to reduce glare. Have handrails and lights put in on all staircases. Wear shoes both inside and outside the house. Avoid going barefoot or wearing slippers. For more information, contact: Centers for Disease Control and Prevention www.cdc.gov/injury * This information may not apply if you have certain medical conditions. documented in [facility]24 NoteHNO ID: [id number] Author: KAMLESH ACOSTA APRN.CNP Service: ? Author Type: Nurse Practitioner Type: Progress Notes Filed: 02/25/2024 12:36 Note Text: Korey Gonzalez is a 73 year old female here for a Medicare wellness visit. Medicare Health Risk Assessment General Health Okay Exercise: Minutes/Day No regular routine Exercise: Days/Week N/a Alcohol: Daily Use None Alcohol: Drinks/Day N/a Alcohol: 6 or more drinks N/a Feel off balance Yes, has had some falls, using a walker outside of the house Concerns: Teeth/Dentures No Concerns: Sexual function No Troubled by feelings No Frequency: Eating healthy diet Tries to eat healthy ADLs requiring help No Safety precautions in home/vehicle Yes Smoke, vape, chews tobacco No Difficulty hearing No Difficulty seeing No Current Providers Specialists: I have reviewed specialist-related care of the patient in the medical record. Current care team: Patient Care Team: Abby Mcclellan MD as PCP - General (Internal Medicine) Outside specialists seen: cardiology with [facility]/Family history review Reviewed and updated problem list, medical/surgical/family/social history, medications, and allergies. Opioid use review Opioid Medications (last 90 days) No data to display Anxiety/Depression screening No concerns about depression Recommendation: no further intervention at this time Cognitive screening Mini Cog Score: 1 Cognitive screening reviewed and Recommended referral for further evaluation (score 0-2). Functional Observation Was the patient's Timed Up AND Go test unsteady or ? 12 seconds? Yes Advance Care Planning Surrogate decision maker and/or advance care plan documented Measurements BP 122/76 Pulse 99 Wt 111.1 kg (245 lb) SpO2 97% BMI 47.85 kg/m? Vision Screening: Follows with optometry/ophthalmology SUBJECTIVE Lito Gonzalez is a 73 year old female here today for a check up on her medical problems. Chief Complaint Patient presents with: Medicare Wellness Exam 4 month folllow up HPI Lito Gonzalez is a 73 year old female. Recent work up with cardiology, sees [facility]. Had an ECHO and a heart cath. No blockages but per patient her aorta is small. Referred for TAVR for severe aortic stenosis. Noticing memory is not as good. Some concerns about this. Takes time to remember. More falls, balance is not as good because of arthritis. Using a walker outside of the home now. Otherwise doing well, recent labs stable. Her medications were reviewed today and her list is now up to date. Medications Current Outpatient Medications Medication Sig glimepiride (AMARYL) 4 mg tablet Take 1 tablet by mouth two times a day with meals. metFORMIN (GLUCOPHAGE) 500 mg tablet Take 2 tablets by mouth two times a day with meals. metoprolol succinate ER (TOPROL XL) 25 mg 24 hr tablet Take 1 tablet by mouth once daily. (Dr. Hubbard) aspirin, enteric coated (ASPIRIN, ENTERIC COATED) 81 mg EC tablet Take 1 tablet by mouth once daily. BRANNON-600 WITH VITAMIN D 600 MG-200 UNIT TAB Take one(1) tablet two(2) times daily. GLUCOSAMINE 1,000 MG ORAL TAB Take one(1) tablet daily. blood sugar diagnostic (BLOOD GLUCOSE TEST) test strip Test blood sugar(s) 1 time daily as directed. Dx: Type 2 DM - Controlled E11.9 Insulin: No Blood-Glucose Meter (TRUE METRIX GLUCOSE METER) 1 Each as directed. Walker misc Trio Rolling Walker Lancets lancets Test blood sugar(s) 4 times daily. Dx: Type 2 DM - Uncontrolled E11.65 Insulin: Yes COMPOUNDED PRESCRIPTION Herbal Laxative Take as directed. (Patient not taking: Reported on 02/25/2024) No current facility-administered medications for this visit. ALLERGIES Allergen Reactions Lipitor [Atorvastat* Rash red itchy rash around neck--resolved after stopping med; hands froze with stiffness that started a week after taking a couple pills--resolving ACTIVE PROBLEM LIST Cognitive Impairment - 02/25/2024 Paf (Paroxysmal Atrial Fibrillation) (Hcc) - 12/07/2021 Comment: [facility] Nonrheumatic Aortic Valve Stenosis - 12/07/2021 Comment: [facility], echo [facility] Status Post Right Hip Replacement - 12/23/2019 Difficulty in Walking Involving Lower Leg Joint Acid Indigestion - 03/26/2016 Polycythemia, Secondary - 03/28/2011 Comment: This was abnormal, seen by , testing was normal. Generalized Osteoarthrosis, Involving Multiple Sites - 05/10/2008 Diabetes Mellitus (Hcc) - 10/20/2007 Hypertension Goal Bp (Blood Pressure) < 140/90 - 10/12/2005 Hyperlipidemia Associated With Type 2 Diabetes Mellitus (Hcc) (Former[facility]) - 10/12/2005 Class 3 Severe Obesity Due to Excess Calories With Body Mass Index (Bmi) of 45.0 to 49.9 in Adult ([facility]) Social History Tobacco Use Smoking status: Never Smokeless tobacco: Never Substance Use Topics Alcohol use: No Drug use: No Review of Systems Constitutional: Negative. Respiratory: (more content not included)...[facility]07-30-2024 History of Present illness Narrative* Kamlesh Acotsa APRN.WALL MAN - 02/25/2024 11:21 AM EDT Images from the original note were not included. Korey Gonzalez is a 73 year old female here for a Medicare wellness visit. Medicare Health Risk Assessment General Health Okay Exercise: Minutes/Day No regular routine Exercise: Days/Week N/a Alcohol: Daily Use None Alcohol: Drinks/Day N/a Alcohol: 6 or more drinks N/a Feel off balance Yes, has had some falls, using a walker outside of the house Concerns: Teeth/Dentures No Concerns: Sexual function No Troubled by feelings No Frequency: Eating healthy diet Tries to eat healthy ADLs requiring help No Safety precautions in home/vehicle Yes Smoke, vape, chews tobacco No Difficulty hearing No Difficulty seeing No Current Providers Specialists: I have reviewed specialist-related care of the patient in the medical record. Current care team: Patient Care Team: Abby Mcclellan MD as PCP - General (Internal Medicine) Outside specialists seen: cardiology with [facility] Medical/Family history review Reviewed and updated problem list, medical/surgical/family/social history, medications, and allergies. Opioid use review Opioid Medications (last 90 days) No data to display Anxiety/Depression screening No concerns about depression Recommendation: no further intervention at this time Cognitive screening Mini Cog Score: 1 Cognitive screening reviewed and Recommended referral for further evaluation (score 0-2). Functional Observation Was the patient's Timed Up & Go test unsteady or ? 12 seconds? Yes Advance Care Planning Surrogate decision maker and/or advance care plan documented Measurements BP 122/76 Pulse 99 Wt 111.1 kg (245 lb) SpO2 97% BMI 47.85 kg/m Vision Screening: Follows with optometry/ophthalmology SUBJECTIVE Lito Gonzalez is a 73 year old female here today for a check up on her medical problems. Chief Complaint Patient presents with: Medicare Wellness Exam 4 month folllow up HPI Lito Gonzalez is a 73 year old female. Recent work up with cardiology, sees [facility]. Had an ECHO and a heart cath. No blockages but per patient her aorta is small. Referred for TAVR for severe aortic stenosis. Noticing memory is not as good. Some concerns about this. Takes time to remember. More falls, balance is not as good because of arthritis. Using a walker outside of the home now. Otherwise doing well, recent labs stable. Her medications were reviewed today and her list is now up to date. Medications Current Outpatient Medications Medication Sig glimepiride (AMARYL) 4 mg tablet Take 1 tablet by mouth two times a day with meals. metFORMIN (GLUCOPHAGE) 500 mg tablet Take 2 tablets by mouth two times a day with meals. metoprolol succinate ER (TOPROL XL) 25 mg 24 hr tablet Take 1 tablet by mouth once daily. (Dr. Hubbard) aspirin, enteric coated (ASPIRIN, ENTERIC COATED) 81 mg EC tablet Take 1 tablet by mouth once daily. BRANNON-600 WITH VITAMIN D 600 MG-200 UNIT TAB Take one(1) tablet two(2) times daily. GLUCOSAMINE 1,000 MG ORAL TAB Take one(1) tablet daily. blood sugar diagnostic (BLOOD GLUCOSE TEST) test strip Test blood sugar(s) 1 time daily as directed. Dx: Type 2 DM - Controlled E11.9 Insulin: No Blood-Glucose Meter (TRUE METRIX GLUCOSE METER) 1 Each as directed. Walker misc Trio Rolling Walker Lancets lancets Test blood sugar(s) 4 times daily. Dx: Type 2 DM - Uncontrolled E11.65 Insulin: Yes COMPOUNDED PRESCRIPTION Herbal Laxative Take as directed. (Patient not taking: Reported on 02/25/2024) No current facility-administered medications for this visit. ALLERGIES Allergen Reactions Lipitor [Atorvastat* Rash red itchy rash around neck--resolved after stopping med; hands froze with stiffness that started a week after taking a couple pills--resolving ACTIVE PROBLEM LIST Cognitive Impairment - 02/25/2024 Paf (Paroxysmal Atrial Fibrillation) ([facility]) - 12/07/2021 Comment: [facility] Nonrheumatic Aortic Valve Stenosis - 12/07/2021 Comment: [facility], echo 2021 [facility] Status Post Right Hip Replacement - 12/23/2019 Difficulty in Walking Involving Lower Leg Joint Acid Indigestion - 03/26/2016 Polycythemia, Secondary - 03/28/2011 Comment: This was abnormal, seen by , testing was normal. Generalized Osteoarthrosis, Involving Multiple Sites - 05/10/2008 Diabetes Mellitus ([facility]) - 10/20/2007 Hypertension Goal Bp (Blood Pressure) < 140/90 - 10/12/2005 Hyperlipidemia Associated With Type 2 Diabetes Mellitus ([facility]) ([facility]) - 10/12/2005 Class 3 Severe Obesity Due to Excess Calories With Body Mass Index (Bmi) of 45.0 to 49.9 in Adult ([facility]) Social History Tobacco Use Smoking status: Never Smokeless tobacco: Never Substance Use Topics Alcohol use: No Drug use: No Review of Systems Constitutional: Negative. Respiratory: Negative. Cardiovascular: Negative. OBJECTIVE BP 122/76 Pulse 99 Wt 245 lb (111.1kg) SpO2 97% Physical Exam Vitals and nursing note reviewed. Constitutional: General: She is awake. She is not in acute distress. Appearance: Normal appearance. She is well-developed and well-groomed. She is not ill-appearing, toxic-appearing or diaphoretic. HENT: Head: Normocephalic. Right Ear: External ear normal. Left Ear: External ear normal. Nose: Nose normal. Eyes: General: Vision grossly intact. Conjunctiva/sclera: Conjunctivae normal. Pupils: Pupils are equal, round, and reactive to light. Neck: Vascular: No JVD. Trachea: Trachea normal. Cardiovascular: Rate and Rhythm: Normal rate and regular rhythm. Pulses: Normal pulses. Heart sounds: Murmur heard. Pulmonary: Effort: Pulmonary effort is normal. No accessory muscle usage, prolonged expiration or respiratory distress. Breath sounds: Normal breath sounds. Musculoskeletal: Cervical back: Neck supple. Skin: General: Skin is warm and dry. Capillary Refill: Capillary refill takes less than 2 seconds. Neurological: General: No focal deficit present. Mental Status: She is alert and oriented to person, place, and time. Mental status is at baseline. Psychiatric: Attention and Perception: Attention and perception normal. Mood and Affect: Mood and affect normal. Speech: Speech normal. Behavior: Behavior normal. Behavior is cooperative. Thought Content: Thought content normal. Cognition and Memory: Cognition and memory normal. Judgment: Judgment normal. ASSESSMENT/PLAN: 1. Medicare annual wellness visit, subsequent - ICD9: V70.0, ICD10: Z00.00 (primary diagnosis) - Counseled on healthy diet and regular exercise - Fall avoidance information provided - Personalized prevention plan provided 2. Nonrheumatic aortic valve stenosis - ICD9: 424.1, ICD10: I35.0 Following with cardiology, referred for TAVR 3. Cognitive impairment - ICD9: 294.9, ICD10: R41.89 Discussed geriatrics consult, she declines at this time. 4. Abnormality of gait - ICD9: 781.2, ICD10: R26.9 - FALLS RISK EDUCATION 5. Falling episodes - ICD9: 781.99, E888.9, ICD10: R29.6 - FALLS RISK EDUCATION 6. Screening for depression - ICD9: V79.0, ICD10: Z13.31 - DEPRESSION SCREENING 7. Encounter for screening examination for other mental health and behavioral disorders - ICD9: V79.8, ICD10: Z13.39 - ANXIETY SCREENING 8. Hypertension goal BP (blood pressure) < 140/90 - ICD9: 401.9, ICD10: I10 - Controlled - Continue current medications - Recommend home blood pressure monitoring, to bring results to next visit - Encouraged sodium restriction, DASH or Mediterranean diet - Recommend regular aerobic exercise 9. Type 2 diabetes mellitus with other specified complication, without long-term current use of insulin (HCC) - ICD9: 250.80, ICD10: E11.69 - Improving control - Continue current medications - Counseled on healthy diet and regular exercise - Discussed need for and benefit of weight loss. BMI 47.85 kg/(m^2) - HEMOGLOBIN A1C 10. Hyperlipidemia associated with type 2 diabetes mellitus (HCC) (HCC) - ICD9: 250.80, 272.4, ICD10: E11.69, E78.5 - Control undetermined, due for labs - Counseled on healthy diet and regular exercise - LIPID PANEL BASIC 11. Encounter for therapeutic drug monitoring - ICD9: V58.83, ICD10: Z51.81 - COMPLETE BLOOD COUNT AND DIFFERENTIAL - COMPREHENSIVE METABOLIC PANEL Portions of this note have been entered by ancillary staff. I have reviewed and when necessary edited, so that they are an adequate record of my encounter with this patient Please note that parts of this document were created using voice recognition software and therefore may contain grammatical errors. Patient verbalizes understanding of instructions from today's visit and in agreement with treatmentplan. Questions answered. Agrees to call the office if questions, concerns of issues with acute symptoms not improving or if they worsen. See diagnoses and orders for additional plan(s). Allergies and medications were reviewed, list was updated, and refills given if needed. Past medical, surgical, social, and family history reviewed and updated as appropriate. Encouraged proper diet & exercise as well as compliance with taking medications. Age- appropriate health preventative measures were discussed. Return in about 4 months (around 06/27/2024) for Follow up on chronic conditions and medications.. Kamlesh Acosta APRN-[facility]O documented in this encounterE[facility]04-19-2024 Miscellaneous Notes* Addendum Note - Kamlesh Acosta APRN.CNP - 11/15/2023 12:08 PM EDTAddended by: KAMLESH ACOSTA on: 11/15/2023 12:08 PM Modules accepted: Orders * Telephone Encounter - Saji Choudhury LPN - 11/15/2023 11:51 AM EDT Pt calls to [facility] Looks like on 11/12, short term supply also went to mail away pharmacy. Also, the sig needs updated, pt states glimepiride was increased to 2 tablets daily, not 1. Rx pending. Please review and advise. Saji Choudhury LPN documented in this encounterEly[facility]04-17-2024 Miscellaneous Notes* Telephone Encounter - Zena Coleman LPN - 11/13/2023 10:40 AM EDT Detailed VM left on pt's identified voicemail of information below. Zena Coleman LPN * Telephone Encounter - Abby Mcclellan MD - 11/13/2023 10:03 AM EDT The following approved medication requests have been transmitted electronically. Requested Prescriptions Pending Prescriptions Disp Refills glimepiride (AMARYL) 4 mg tablet 14 tablet 0 Sig: Take 1 tablet by mouth daily with breakfast. Signed Prescriptions Disp Refills glimepiride (AMARYL) 4 mg tablet 180 tablet 3 Sig: Take 1 tablet by mouth daily with breakfast. Authorizing Provider: ABBY MCCLELLAN MD * Telephone Encounter - Zena Coleman LPN - 11/13/2023 8:55 AM EDT Spoke with pt and she does not take 2 mg any longer. Need to have the short term Amaryl 4 mg sent to local pharmacy. Pt is out of medication. Please advise when sent to the pharmacy. Zena Coleman LPN * Telephone Encounter - Abby Mcclellan MD - 11/12/2023 5:11 PM EDT The following approved medication requests have been transmitted electronically. Requested Prescriptions Signed Prescriptions Disp Refills glimepiride (AMARYL) 4 mg tablet 180 tablet 3 Sig: Take 1 tablet by mouth daily with breakfast. Authorizing Provider: ABBY MCCLELLAN glimepiride (AMARYL) 2 mg tablet 14 tablet 0 Sig: Take 1 tablet by mouth daily with breakfast. Authorizing Provider: ABBY MCCLELLAN MD * Telephone Encounter - Salud Vargas LPN - 11/12/2023 4:42 PM EDT Patient has been identified by name and date of : Yes Patient phones for refill(s): Requested Prescriptions Pending Prescriptions Disp Refills glimepiride (AMARYL) 4 mg tablet 180 tablet 3 Sig: Take 1 tablet by mouth daily with breakfast. glimepiride (AMARYL) 2 mg tablet 14 tablet 0 Sig: Take 1 tablet by mouth daily with breakfast. Date of last office visit in primary care: 10/25/2023 Date of next office visit in primary care: 02/25/2024 Please advise. Thank you. Salud Vargas LPN. * Telephone Encounter - Trini Calle - 11/12/2023 3:29 PM EDT Patient needs this sent locally for a gap supply to [facility] and to the mail order at [facility] please send TREVOR Patient has been identified by name and date of : Yes Requested Prescriptions Pending Prescriptions Disp Refills glimepiride (AMARYL) 4 mg tablet 180 tablet 3 Sig: Take 1 tablet by mouth daily with breakfast. RX INSTRUCTIONS: Patient aware RX will be sent to pharmacy. No need to notify patient. Patient aware RX escripted to mail away pharmacy. No need to notify patient. Trini Clements documented in this encounterElyria [facility] Hospital03-12-2024 Miscellaneous Notes* Telephone Encounter - Myranda Byrne HUC - 10/08/2023 2:09 PM EDT Telephoned the patient to schedule a new Primary Care pharmacy appt. Left a message. Made two attempts to contact the patient. Patient star not have MyChart. If the patient returns a call, an appt will be scheduled. Encounter routed to the clinical pharmacist. * Telephone Encounter - Myranda Byrne HUC - 10/07/2023 1:43 PM EDT Telephoned the patient to schedule a new Primary Care pharmacy appt. Left a message. documented in this encounterElyria [facility]03-08-2024 History of Present illness Narrative* Kamlesh Acosta APRN.CNP - 10/04/2023 7:28 AM EST Nu, I agree, I will sign off on the order and can discuss more with her at her visit. Thanks! * Nu Bruce RPh - 10/03/2023 11:48 AM EST Primary Care Pharmacy Panel Management This patient has been identified through panel management efforts by the primary care pharmacy team. Patient has appt with D[facility] upcoming on 10/24 to address diabetes. Consult to Pharmacy order pended toPCP for consideration and signature. Nu Bruce RPh documented in this encounterElyria [facility] Hospital12-15-2023 Miscellaneous Notes* Telephone Encounter - Tanja Lester Ma - 07/12/2023 1:40 PM EST Patient notified. * Telephone Encounter - Ema Beltran APRN.CNP - 07/12/2023 1:03 PM EST It is not quite time to get her HgbA1c drawn. She has upcoming appointment with Kamlesh and A1c can bedone in office and/or be ordered at that time. Thank you Ema Beltran APRN.DANILO * Telephone Encounter - Keily Gallardo - 07/12/2023 8:09 AM EST Hello! Patient came in requesting to get some lab work done, but there are no orders in. Please advise if patient needs labs done before her next 3 month follow up this month. Thank you! Keily. documented in this encounterElyria [facility] Hospital10-19-2023 Miscellaneous Notes* Telephone Encounter - Abby Mcclellan MD - 05/16/2023 12:01 PM EDT Okayed * Telephone Encounter - Inna Proctor - 05/16/2023 11:35 AM EDT Patient calling back [facility] did send her a meter and test strips. However, she just got a letter from [facility] stating they need a new script for the diabetic teststrips She's not sure why they need a new order. * Telephone Encounter - Teresa Worrell LPN - 05/16/2023 11:33 AM EDT Phone call to patient. Meter and test strips were refilled on 01/20/2023 and 12/17/2022. There shouldbe refills on the test strips. Advised to return call * Telephone Encounter - Camille Krause - 05/16/2023 10:04 AM EDT Patient has been identified by name and date of : Yes Requested Prescriptions Pending Prescriptions Disp Refills Blood-Glucose Meter (TRUE METRIX GLUCOSE METER) 1 Each 0 Si Each as directed. blood sugar diagnostic (BLOOD GLUCOSE TEST) test strip 100 Strip 3 Sig: Test blood sugar(s) 1 time daily as directed. Dx: Type 2 DM - Controlled E11.9 Insulin: No RX INSTRUCTIONS: Patient aware RX will be sent to pharmacy. No need to notify patient. Camille Clements documented in this encounterElyria [facility] Hospital10-02-2023 Miscellaneous Notes* Letter - [facility] - 04/29/2023 8:25 AM EDT April 29, 2023 PID: [id number] Lito Gonzalez [address] [place] [address] Dear Dangelo Fabricio, We are pleased to inform you that the results of your recent breast imaging exam on 04/26/2023 are normal. Early detection of cancer is very important. We also understand recommendations regarding breast cancer screening are controversial. Please discuss with your primary care provider which strategy is best for you and whether a mammogram is right for you. Your imaging studies and report will be [facility] as part of your permanent medical record and are available for your continuing care. Thank you for allowing us to help in meeting your health care needs. Sincerely, Dr. Alex Interpreting Radiologist [facility] (Normal over 40) documented in this encounterElyria Memorial Hospital09-29-2023 History of Present illness Narrative* Karla Armas RT(R) - 04/26/2023 2:50 PM EDT Radiology Service Progress Note PATIENT NAME: Lito Gonzalez DATE OF SERVICE: April 26, 2023 TIME: 2:43 PM PATIENT IDENTITY VERIFICATION COMPLETED USING TWO (2) IDENTIFIERS: Name and Date of confirmedby patient verbally. FALL SCREENING: Has the patient had 2 falls in the last year or 1 fall with injury or currently using an Ambulatory Assistive Device (Walker, Cane, Wheelchair, Crutches, etc.)? No PATIENT GENDER DATA: Female. status: : No status: NO. PATIENT RELEVANT IMPLANT DATA REVIEWED: Not Applicable RADIOLOGY DEPARTMENT: Mammography PERIPHERAL IV DATA: Not applicable SIGNED BY: RT Cha(Rosa) April 26, 2023 2:43 PM documented in this encounterElyria Memorial Hospital09-29-2023 Miscellaneous Notes* Result Encounter Note - Heidy Hawk APRN.CNS - 04/26/2023 2:50 PM EDT Negative, 1 year screening follow-up documented in this encounterElyria Memorial Hospital09-22-2023 Instructions* Patient Instructions* Kamlesh Acosta APRN.CNP - 04/19/2023 12:12 PM EDT Follow up in 3 months but call if blood sugar checks are consistently running above 175 with the higher dose of glimepiride. documented in this encounterElyria Memorial Hospital09-22-2023 History of Present illness Narrative* Kamlesh Acosta APRN.CNP - 04/19/2023 11:57 AM EDT SUBJECTIVE Lito Gonzalez is a 72 year old female here today for a check up on her medical problems. Chief Complaint Patient presents with: 4 month follow up Cough: for about two weeks. Moist non-productive. fatigue HPI Lito Gonzalez is a 72 year old female established patient who presents for a 4 month follow up. Last seen 12/17/2022. Discussed DM, HTN, HLD, obesity, moderate aortic stenosis, PAF and statin intolerance. Issues with a cough, getting better. Onset about 2 weeks ago. Cough is moist, not productive. She denies shortness of breath, chest pain or chest tightness. Other than the cough she is doing pretty well. No new swelling in the feet or legs. No abnomral weight gain. She had labs done prior to today that she would like to go over. Notes sugars running higher, no low blood sugars or symptoms of low blood sugars. She does admit to eating more fruit with it having been summer time. Her medications were reviewed today and her list is now up to date. Medications Current Outpatient Medications Medication Sig metFORMIN (GLUCOPHAGE) 500 mg tablet Take 1 tablet by mouth twice daily with meals. metoprolol succinate ER (TOPROL XL) 25 mg 24 hr tablet Take 1 tablet by mouth once daily. (Dr. Hubbard) aspirin, enteric coated (ASPIRIN, ENTERIC COATED) 81 mg EC tablet Take 1 tablet by mouth once daily. BRANNON-600 WITH VITAMIN D 600 MG-200 UNIT TAB Take one(1) tablet two(2) times daily. COMPOUNDED PRESCRIPTION Herbal Laxative Take as directed. GLUCOSAMINE 1,000 MG ORAL TAB Take one(1) tablet daily. glimepiride (AMARYL) 4 mg tablet Take 1 tablet by mouth daily with breakfast. Blood-Glucose Meter (TRUE METRIX GLUCOSE METER) 1 Each as directed. blood sugar diagnostic (BLOOD GLUCOSE TEST) test strip Test blood sugar(s) 1 time daily as directed. Dx: Type 2 DM - Controlled E11.9 Insulin: No Walker misc Trio Rolling Walker Lancets lancets Test blood sugar(s) 4 times daily. Dx: Type 2 DM - Uncontrolled E11.65 Insulin: Yes No current facility-administered medications for this visit. ALLERGIES Allergen Reactions Lipitor [Atorvastat* Rash red itchy rash around neck--resolved after stopping med; hands froze with stiffness that started a week after taking a couple pills--resolving ACTIVE PROBLEM LIST Paf (Paroxysmal Atrial Fibrillation) (Formerly [facility]) - 12/07/2021 Comment: [facility] Moderate Aortic Stenosis By Prior Echocardiogram - 12/07/2021 Comment: [facility], echo 2021 [facility] Status Post Right Hip Replacement - 12/23/2019 Difficulty in Walking Involving Lower Leg Joint Acid Indigestion - 03/26/2016 Polycythemia, Secondary - 03/28/2011 Comment: This was abnormal, seen by , testing was normal. Generalized Oa - 05/10/2008 Generalized Osteoarthrosis, Involving Multiple Sites - 05/10/2008 Hypertension Goal Bp (Blood Pressure) < 140/90 - 10/12/2005 Hyperlipidemia Associated With Type 2 Diabetes Mellitus (Hcc) - 10/12/2005 Tachycardia, Unspecified - 04/03/2005 Class 3 Severe Obesity Due to Excess Calories With Body Mass Index (Bmi) of 45.0 to 49.9 in Adult (Formerly [facility]) Social History Tobacco Use Smoking status: Never Smokeless tobacco: Never Substance Use Topics Alcohol use: No Drug use: No Review of Systems Constitutional: Negative. Respiratory: Positive for cough. Negative for apnea, choking, chest tightness, shortness of breath,wheezing and stridor. Cardiovascular: Negative. OBJECTIVE BP 118/78 Pulse 112 Wt 242 lb (109.8kg) SpO2 96% Physical Exam Vitals and nursing note reviewed. Constitutional: General: She is awake. She is not in acute distress. Appearance: Normal appearance. She is well-developed and well-groomed. She is not ill-appearing, toxic-appearing or diaphoretic. HENT: Head: Normocephalic. Right Ear: External ear normal. Left Ear: External ear normal. Nose: Nose normal. Eyes: General: Vision grossly intact. Conjunctiva/sclera: Conjunctivae normal. Pupils: Pupils are equal, round, and reactive to light. Neck: Vascular: No JVD. Trachea: Trachea normal. Cardiovascular: Rate and Rhythm: Normal rate and regular rhythm. Pulses: Normal pulses. Heart sounds: Murmur heard. Pulmonary: Effort: Pulmonary effort is normal. No accessory muscle usage, prolonged expiration or respiratory distress. Breath sounds: Normal breath sounds. Musculoskeletal: Cervical back: Neck supple. Right lower leg: No edema. Left lower leg: No edema. Skin: General: Skin is warm and dry. Capillary Refill: Capillary refill takes less than 2 seconds. Neurological: General: No focal deficit present. Mental Status: She is alert and oriented to person, place, and time. Mental status is at baseline. Psychiatric: Attention and Perception: Attention and perception normal. Mood and Affect: Mood and affect normal. Speech: Speech normal. Behavior: Behavior normal. Behavior is cooperative. Thought Content: Thought content normal. Cognition and Memory: Cognition and memory normal. Judgment: Judgment normal. ASSESSMENT/PLAN: 1. Type 2 diabetes mellitus with hyperglycemia, without long-term current use of insulin (HCC) - ICD9: 250.00, 790.29, ICD10: E11.65 (primary diagnosis) - Worsening control - Continue current medications - Increase glimepiride - Discussed diabetic education issues of diabetes complications and monitoring required, hypoglycemic/hyperglycemic symptoms, and medication-specific side effects and monitoring - Follow up in 3 months, sooner should any other issues arise. 2. Essential hypertension - ICD9: 401.9, ICD10: I10 - Controlled - Continue current medications - Recommend home blood pressure monitoring, to bring results to next visit - Encouraged sodium restriction, DASH or Mediterranean diet - Recommend regular aerobic exercise 3. Hyperlipidemia associated with type 2 diabetes mellitus (HCC) - ICD9: 250.80, 272.4, ICD10: E11.69, E78.5 - Controlled - Continue current medications 4. Moderate aortic stenosis by prior echocardiogram - ICD9: 424.1, ICD10: I35.0 Stable per patient, monitored by cardiology. 5. Acute cough - ICD9: 786.2, ICD10: R05.1 No signs of this being cardiac related, reviewed signs and symptoms to monitor for and when to seekmedical attention. Portions of this note have been entered by ancillary staff. I have reviewed and when necessary edited, so that they are an adequate record of my encounter with this patient Please note that parts of this document were created using voice recognition software and therefore may contain grammatical errors. Patient verbalizes understanding of instructions from today's visit and in agreement with treatmentplan. Questions answered. Agrees to call the office if questions, concerns of issues with acute symptoms not improving or if they worsen. See diagnoses and orders for additional plan(s). Allergies and medications were reviewed, list was updated, and refills given if needed. Past medical, surgical, social, and family history reviewed and updated as appropriate. Encouraged proper diet & exercise as well as compliance with taking medications. Age- appropriate health preventative measures were discussed. Return in about 3 months (around 07/19/2023) for follow up on DM. Kamlesh Acosta APRN-DANILO documented [facility] Miscellaneous Notes* Telephone Encounter - Abby Mcclellan MD - 01/20/2023 12:02 AM EDT The following approved medication requests have been transmitted electronically. Requested Prescriptions Signed Prescriptions Disp Refills Blood-Glucose Meter (TRUE METRIX GLUCOSE METER) 1 Each 0 Si Each as directed. Authorizing Provider: ABBY MCCLELLAN MD * Telephone Encounter - Rhonda Hernandez LPN - 01/18/2023 2:58 PM EDT Spoke with patient and the strips she was sent was True Metrix test strips. Would like a script for a True Metrix Glucose Meter sent to [facility] pharmacy. * Telephone Encounter - Barbara Thompson Pss - 01/18/2023 1:15 PM EDT Lito is calling because [facility] is supposed to send her a glucometer, but keeps sending strips instead. Please send an order for her glucometer (she reports having a Next Luiz?) documented in this [facility]06[facility]-2023 History of Present illness Narrative* Genna Steiner MA - 01/16/2023 7:51 AM EDT POPULATION HEALTH NAVIGATION OUTREACH Action/FYI Follow up due around 04/19/2023, with fasting labs prior Patient Identified by Name and : NO Outreach Outcome/Action Unable to reach patient: Left message Did you use a PCP flex slot to schedule this appointment? N/A Reason for Outreach Care Gap or Scheduling/Wellness visits Payer: Payor: [employer] MEDICARE / Plan: [employer] / Product Type: HMO / Care Gap Reviewed:: Follow-up appointment Advance Directive Reminder: Reminder note to check Health Maintenance for items below Health Maintenance items due: DIABETIC FOOT EXAM due on 02/14/2022 ADVANCE DIRECTIVE DISCUSSION due on 07/29/2022 Navigation Signature: Genna Steiner MA January 16, 2023 7:51 AM documented in this [facility]04-14-2023 Miscellaneous Notes* Telephone Encounter - Chrissy Dawn LPN - 11/09/2022 11:01 AM EDT Last seen pcp 08/14/22. Next appt is 12/17/22. * Telephone Encounter - Dina Messer [facility] - 11/09/2022 10:03 AM EDT Patient has been identified by name and date of : Yes Requested Prescriptions Pending Prescriptions Disp Refills glimepiride (AMARYL) 2 mg tablet 90 tablet 3 Sig: Take 1 tablet by mouth daily with breakfast. RX INSTRUCTIONS: Patient aware RX will be sent to pharmacy. No need to notify patient. Dina Messer [facility] documented in this [facility]03-24-2023 Miscellaneous Notes* Telephone Encounter - Krista Valerio LPN - 10/19/2022 12:32 PM EDT No answer. Did not leave patient name but left providers message and ask to call office and ask to speak to a nurse if they needed patient information. * Telephone Encounter - Heidy Hawk APRN.ZACH - 10/18/2022 4:44 PM EDT Who is Khushboo? Notes indicate prior atorvastatin intolerance. PCP can address at next visit if .anme would like to try alternate medication The 10-year ASCVD risk score (Anna Marie DK, et al., 2019) is: 34.5% Values used to calculate the score: Age: 72 years Sex: Female Is Non- : No Diabetic: Yes Tobacco smoker: No Systolic Blood Pressure: 130 mmHg Is BP treated: Yes HDL Cholesterol: 39 mg/dL Total Cholesterol: 191 mg/dL * Telephone Encounter - Mojgan Henriquez RN - 10/18/2022 3:37 PM EDT Khushboo Williamson called in and reports she had sent a fax in about the patient being a diabetic and that they are not on a Statin to help decrease the risk of Cardiovascular disease. She would likea call back to see how the provider has addressed this situation. documented in this [facility]01-03-2023 History of Present illness Narrative* Suzanne Zaidi RT(R) - 07/31/2022 3:50 PM EST Radiology Service Progress Note PATIENT NAME: Lito Gonzalez DATE OF SERVICE: July 31, 2022 TIME: 3:47 PM PATIENT IDENTITY VERIFICATION COMPLETED USING TWO (2) IDENTIFIERS: Name and Date of confirmedby patient verbally. FALL SCREENING: Has the patient had 2 falls in the last year or 1 fall with injury or currently using an Ambulatory Assistive Device (Walker, Cane, Wheelchair, Crutches, etc.)? Yes, Patient High Riskfor Falls What interventions were put in place to prevent falls during this visit? Offered Assistance with Transfers/Clothing and Instructed Patient to Remain Seated (Not on Exam Table) Until Exam PATIENT GENDER DATA: Female. status: : No status: NO. PATIENT RELEVANT IMPLANT DATA REVIEWED: Not Applicable RADIOLOGY DEPARTMENT: General X-ray: Exam(s) Completed: Chest X-Ray PERIPHERAL IV DATA: Not applicable SIGNED BY: RT Atul(R) July 31, 2022 3:47 PM documented in this [facility]01-03-2023 History of Present illness Narrative* Keily Mckinney APRN.WALL MAN - 07/31/2022 3:30 PM EST This note was created using NoteWriter. Subjective Lito Gonzalez is a 72 year old female. 72 year old female with PMH HTN, hyperlipidemia, PAF,DM, acid indigestion presents for complaints of illness. Acute onset of symptoms was July 15 +cough Dry and harsh Denies hemoptysis. Denies CP Denies fever or chills. Denies N/V/D Utilized Delsym cough syrup, stating that her sugars became elevated 121-128 is her normal sugars. Stating she takes her sugars on Saturday/Saturday and noticed that it was elevated Yesterdays sugar was 143. Denies tobacco usage States that she attended a family gathering mid June someone there was obviously sick The history is provided by the patient. No foreign languages department chair was used. Cough This is a new problem. The current episode started more than 1 week ago. The problem occurs constantly. The problem has been gradually worsening. The cough is Non-productive. There has been no fever.Pertinent negatives include no chest pain, no chills, no sweats, no weight loss, no ear congestion,no ear pain, no headaches, no rhinorrhea, no sore throat, no myalgias, no shortness of breath, no wheezing and no eye redness. She has tried nothing for the symptoms. The treatment provided no relief. She is not a smoker. Her past medical history does not include bronchitis, pneumonia, bronchiectasis, COPD, emphysema or asthma. PAST MEDICAL HISTORY Diagnosis Date ABNORMAL LIVER FUNCTION STUDY 10/20/2007 Arrhythmia Diabetes (HCC) Difficulty in walking involving lower leg joint GENERAL OSTEOARTHROSIS 05/10/2008 HYPERGLYCEMIA 10/20/2007 HYPERLIPIDEMIA NEC/NOS 10/12/2005 HYPERTENSION NOS 10/12/2005 Impaired fasting glucose 10/20/2007 Intramural leiomyoma of uterus 1995 Obesity, unspecified Palpitations 2003 hospitalized September 2003 for evaluation Polycythemia, secondary 03/28/2011 Pure hypercholesterolemia TACHYCARDIA NOS 04/03/2005 PAST SURGICAL HISTORY Procedure Laterality Date APPENDECTOMY ARTHRP ACETBLR/PROX FEM PROSTC AGRFT/ALGRFT Right 12/02/2019 Dr. Barney at [facility] ARTHRP KNE CONDYLE&PLATU MEDIAL&LAT COMPARTMENTS 01/31/2009 Knee replacement, total, left per dr johnson ARTHRP KNE CONDYLE&PLATU MEDIAL&LAT COMPARTMENTS 12/15/2012 right knee BX BREAST W/DEVICE 1ST LESION STEREOTACTIC GUID Left 08/23/2015 COLONOSCOPY FLX DX W/COLLJ SPEC WHEN PFRMD 03/02 Colonoscopy COLONOSCOPY FLX DX W/COLLJ SPEC WHEN PFRMD 01/05/16 Colonoscopy TOTAL ABDOMINAL HYSTERECT W/WO RMVL TUBE OVARY 1995 Hysterectomy, EVELIO, BSO for fibroids and bleeding ALLERGIES Lipitor [Atorvastatin] MEDICATIONS metFORMIN (GLUCOPHAGE) 500 mg tablet Take 1 tablet by mouth twice daily with meals. glimepiride (AMARYL) 2 mg tablet Take 1 tablet by mouth daily with breakfast. metoprolol succinate ER (TOPROL XL) 25 mg 24 hr tablet Take 1 tablet by mouth once daily. (Dr. Hubbard) blood sugar diagnostic (BLOOD GLUCOSE TEST) test strip Test blood sugar(s) 4 times daily. Dx: Type 2 DM - Uncontrolled Insulin: Yes; Accucheck [facility]RISTI. [facility] Medical: [phone] Walker misc Trio Rolling Walker aspirin, enteric coated (ASPIRIN, ENTERIC COATED) 81 mg EC tablet Take 1 tablet by mouth once daily. Lancets lancets Test blood sugar(s) 4 times daily. Dx: Type 2 DM - Uncontrolled Insulin: Yes BRANNON-600 WITH VITAMIN D 600 MG-200 UNIT TAB Take one(1) tablet two(2) times daily. COMPOUNDED PRESCRIPTION Herbal Laxative Take as directed. GLUCOSAMINE 1,000 MG ORAL TAB Take one(1) tablet daily. doxycycline monohydrate 100 mg tablet Take 1 tablet by mouth twice daily for 7 days. FAMILY HISTORY Problem Relation Age of Onset Breast Cancer Mother dec.age 71 Diabetes Father dec.age83 Heart Father CABG, CHF Alzheimer's Disease Father Cancer Brother Lung Social History Tobacco Use Smoking status: Never Smokeless tobacco: Never Substance Use Topics Alcohol use: No Drug use: No Review of Systems Constitutional: Negative for chills, fatigue, fever and weight loss. HENT: Positive for congestion. Negative for ear pain, rhinorrhea and sore throat. Eyes: Negative for pain, discharge, redness and itching. Respiratory: Positive for cough. Negative for apnea, chest tightness, shortness of breath and wheezing. Cardiovascular: Negative for chest pain. Gastrointestinal: Negative for abdominal pain, diarrhea, nausea and vomiting. Musculoskeletal: Negative for arthralgias, back pain and myalgias. Skin: Negative for color change, pallor, rash and wound. Allergic/Immunologic: Negative for environmental allergies, food allergies and immunocompromised state. Neurological: Negative for dizziness, facial asymmetry and headaches. Hematological: Negative for adenopathy. Does not bruise/bleed easily. Psychiatric/Behavioral: Negative for agitation and behavioral problems. Objective BP 128/72 Pulse 101 Temp 37.1 C (98.7 F) (Tympanic) Resp 18 Wt 106.9 kg (235 lb 9.6 oz) SpO2 96% BMI 46.01 kg/m Physical Exam Vitals and nursing note reviewed. Constitutional: General: She is not in acute distress. Appearance: Normal appearance. She is normal weight. She is not ill-appearing, toxic-appearing or diaphoretic. HENT: Head: Normocephalic and atraumatic. Right Ear: Ear canal and external ear normal. Left Ear: Ear canal and external ear normal. Nose: Nose normal. No congestion or rhinorrhea. Mouth/Throat: Mouth: Mucous membranes are moist. Pharynx: No oropharyngeal exudate or posterior oropharyngeal erythema. Eyes: General: Right eye: No discharge. Left eye: No discharge. Extraocular Movements: Extraocular movements intact. Conjunctiva/sclera: Conjunctivae normal. Pupils: Pupils are equal, round, and reactive to light. Cardiovascular: Rate and Rhythm: Normal rate and regular rhythm. Pulses: Normal pulses. Heart sounds: Normal heart sounds. No murmur heard. No friction rub. Pulmonary: Effort: Pulmonary effort is normal. No respiratory distress. Breath sounds: Normal breath sounds. No stridor. No wheezing, rhonchi or rales. Comments: Rhonchi right mid lobe and right lower lobe Chest: Chest wall: No tenderness. Abdominal: General: Abdomen is flat. There is no distension. Palpations: Abdomen is soft. There is no mass. Tenderness: There is no abdominal tenderness. There is no right CVA tenderness, left CVA tenderness, guarding or rebound. Hernia: No hernia is present. Musculoskeletal: General: No swelling, tenderness, deformity or signs of injury. Normal range of motion. Cervical back: Normal range of motion and neck supple. No rigidity. Right lower leg: No edema. Left lower leg: No edema. Lymphadenopathy: Cervical: No cervical adenopathy. Skin: General: Skin is warm and dry. Capillary Refill: Capillary refill takes less than 2 seconds. Coloration: Skin is not jaundiced or pale. Findings: No bruising, erythema, lesion or rash. Neurological: General: No focal deficit present. Mental Status: She is alert and oriented to person, place, and time. Cranial Nerves: No cranial nerve deficit. Sensory: No sensory deficit. Motor: No weakness. Coordination: Coordination normal. Gait: Gait normal. Psychiatric: Mood and Affect: Mood normal. Behavior: Behavior normal. Thought Content: Thought content normal. Judgment: Judgment normal. Assessment and Plan ASSESSMENT/PLAN: 1. Acute cough - ICD9: 786.2, ICD10: R05.1 X 2 weeks Harsh and non productive. Rhonchi noted right lobe Denies additional and accompanying sx. - XR CHEST 2V FRONTAL/LAT-negative Given worsening cough, rhonchi will cover with Doxcyline Discussed red flags Follow up with PCP Keily Mckinney APRN.WALL MAN documented [facility] this [facility]10-[facility] History of Present illness Narrative* Viki Sibley LPN - 05/15/2022 10:24 AM EDT Patient presents for Shingrix vaccines. Denies any problems at this time. Tolerated injection well. Viki Sibley LPN documented in this [facility]10-07-2022 Miscellaneous Notes* Telephone Encounter - Viki Sibley LPN - 05/04/2022 9:47 AM EDT Patient scheduled for nurse visit 05/15/22 to receive Shingrix vaccine. Please place order at this time. Viki Sibley LPN documented in this [facility]09-21-2022 Instructions* Patient Instructions* Abby Mcclellan MD - 04/18/2022 2:55 PM EDT Consider arch support socks. documented in this [facility]09-21-2022 History of Present illness Narrative* Abby Mcclellan MD - 04/18/2022 2:45 PM EDT This note was created using NoteWriter. Subjective Lito Gonzalez is a 71 year old female. Patient presents with: Follow Up SUBJECTIVE: Lito Gonzalez is a 71 year old year old lady here today for 3 month follow up appointment for review of medical conditions. Thinks had COVID in August. Flu like symptoms and cough. Lost appetite and nothing tasted good. Lost weight. Coughed rosy much ribs were sore. Did not get tested then. Lasted almost a month. Hair came out when went to get her head done. Told her had COVID head. Had documented COVID infection April 2020. Was treated back then. Heel hurts when walks on it--right. Thinks heel spur. Has corn on little toe left foot. Tried Dr. Chin's topical but only small amount comes off. Triedcompound W--no help. Trying duct tape now. Hurts sometimes really badly. Noted that had lost 21 pounds.Snacks a lot. Really exercising. Exercise bike 20 to 30 minutes. From 50 to 325 pedals. Form completed for insurance to [facility] and send test strips. Does not want COVID vaccine. Gets mammogram and colonoscopy at [facility]. Last scope was 2015. Lost wedding wring when had COVID probably in August. Colonoscopy done by Dr. Sanchez at [facility]. 2018. Told 10 years for next one. PAST MEDICAL HISTORY Diagnosis Date ABNORMAL LIVER FUNCTION STUDY 10/20/2007 Arrhythmia Diabetes (HCC) Difficulty in walking involving lower leg joint GENERAL OSTEOARTHROSIS 05/10/2008 HYPERGLYCEMIA 10/20/2007 HYPERLIPIDEMIA NEC/NOS 10/12/2005 HYPERTENSION NOS 10/12/2005 Impaired fasting glucose 10/20/2007 Intramural leiomyoma of uterus 1995 Obesity, unspecified Palpitations 2004 hospitalized September 2003 for evaluation Polycythemia, secondary 03/28/2011 Pure hypercholesterolemia TACHYCARDIA NOS 04/03/2005 Current Outpatient Medications Medication Sig glimepiride (AMARYL) 2 mg tablet Take 1 tablet by mouth daily with breakfast. metFORMIN (GLUCOPHAGE) 500 mg tablet Take 1 tablet by mouth twice daily with meals. metoprolol succinate ER (TOPROL XL) 25 mg 24 hr tablet Take 1 tablet by mouth once daily. (Dr. Hubbard) blood sugar diagnostic (BLOOD GLUCOSE TEST) test strip Test blood sugar(s) 4 times daily. Dx: Type 2 DM - Uncontrolled E11.65 Insulin: Yes; Accucheck [facility]RISTI. [facility] Medical: [phone] Walker misc Trio Rolling Walker aspirin, enteric coated (ASPIRIN, ENTERIC COATED) 81 mg EC tablet Take 1 tablet by mouth once daily. Lancets lancets Test blood sugar(s) 4 times daily. Dx: Type 2 DM - Uncontrolled E11.65 Insulin: Yes BRANONN-600 WITH VITAMIN D 600 MG-200 UNIT TAB Take one(1) tablet two(2) times daily. COMPOUNDED PRESCRIPTION Herbal Laxative Take as directed. GLUCOSAMINE 1,000 MG ORAL TAB Take one(1) tablet daily. No current facility-administered medications for this visit. Review of Systems Objective BP 110/70 Pulse 98 Wt 100.7 kg (222 lb) SpO2 95% BMI 43.36 kg/m Physical Exam Constitutional: Appearance: Normal appearance. She is obese. HENT: Head: Normocephalic. Eyes: Conjunctiva/sclera: Conjunctivae normal. Cardiovascular: Rate and Rhythm: Normal rate and regular rhythm. Heart sounds: Murmur (LUSB) heard. Systolic murmur is present with a grade of 3/6. Pulmonary: Effort: Pulmonary effort is normal. Breath sounds: Normal breath sounds. Musculoskeletal: Right lower le+ Edema present. Left lower le+ Edema present. Skin: General: Skin is warm and dry. Neurological: General: No focal deficit present. Mental Status: She is alert and oriented to person, place, and time. Psychiatric: Mood and Affect: Mood normal. Behavior: Behavior normal. Thought Content: Thought content normal. Judgment: Judgment normal. Component Latest Ref Rng & Units 06/30/2020 02/10/2021 08/28/2021 12/04/2021 04/12/2022 Protein, Total 6.3 - 8.0 g/dL 7.4 6.8 7.0 Albumin 3.9 - 4.9 g/dL 4.3 4.2 4.1 Calcium 8.5 - 10.2 mg/dL 9.8 9.5 9.9 Bilirubin, Total 0.2 - 1.3 mg/dL 0.8 0.7 0.7 Alkaline Phosphatase 34 - 123 U/L 66 70 83 AST 13 - 35 U/L 29 24 17 Glucose 74 - 99 mg/dL 121 (H) 146 (H) 585 (H) BUN 7 - 21 mg/dL 22 (H) 24 (H) 15 Creatinine 0.58 - 0.96 mg/dL 0.83 0.84 0.67 Sodium 136 - 144 mmol/L 140 140 129 (L) Potassium 3.7 - 5.1 mmol/L 4.2 4.3 4.9 Chloride 97 - 105 mmol/L 103 106 (H) 95 (L) CO2 22 - 30 mmol/L 29 23 22 Anion Gap 9 - 18 mmol/L 8 (L) 11 12 ALT 7 - 38 U/L 29 24 15 eGFR- >60 >60 eGFR-All Other Races . >60 >60 eGFR >=60 mL/min/1.73m 92 WBC 3.70 - 11.00 k/uL 5.96 7.48 RBC 3.90 - 5.20 m/uL 4.94 4.89 Hemoglobin 11.5 - 15.5 g/dL 15.1 15.4 Hematocrit 36.0 - 46.0 % 47.6 (H) 47.5 (H) MCV 80.0 - 100.0 fL 96.4 97.1 MCH 26.0 - 34.0 pG 30.6 31.5 MCHC 30.5 - 36.0 g/dL 31.7 32.4 RDW-CV 11.5 - 15.0 % 14.4 12.9 Platelet Count 150 - 400 k/uL 196 174 MPV 9.0 - 12.7 fL 11.7 12.1 Absolute nRBC <0.01 k/uL <0.01 <0.01 Cholesterol, Total <200 mg/dL 204 (H) 174 Triglyceride <150 mg/dL 136 90 HDL Cholesterol >39 mg/dL 37 (L) 37 (L) LDL Cholesterol <100 mg/dL 140 (H) 119 (H) Non HDL Cholesterol <130 mg/dL 167 (H) 137 (H) Fasting Time hrs 12 12 VLDL Cholesterol <30 mg/dL 27 18 TC:HDL Ratio <5.10 5.51 (H) 4.70 LDL:HDL Ratio <2.54 3.78 (H) 3.22 (H) Creatinine, Ur Random (UCRR) 20 - 300 mg/dL 52.4 Albumin, Urine Random mg/L <12.0 Albumin/Creat Ratio <30 mg/g Not calculated Hemoglobin A1C 4.3 - 5.6 % 6.5 (H) 6.9 (H) 10.2 (H) 13.8 (H) 6.2 (H) Estimated Average Glucose mg/dL 140 151 246 349 131 Assessment and Plan ASSESSMENT/PLAN: 1. Controlled type 2 diabetes mellitus without complication, without long-term current use of insulin (HCC) - ICD9: 250.00, ICD10: E11.9 (primary diagnosis) Controlled. - Continue current medications - HGB A1C - COMP METABOLIC PANEL - LIPID PANEL BASIC - CBC - ALBUMIN/CREAT RATIO RND UR 2. Plantar fasciitis of right foot - ICD9: 728.71, ICD10: M72.2 Further evaluation and treatment as indicated. 3. Nonrheumatic aortic valve stenosis - ICD9: 424.1, ICD10: I35.0 Further evaluation and treatment as indicated. 4. Encounter for screening mammogram for breast cancer - ICD9: V76.12, ICD10: Z12.31 - Set up for mammogram, yearly mammogram recommended - [facility] SCREENING 5. Essential hypertension - ICD9: 401.9, ICD10: I10 - good control - Continue current medication(s) - Recommended regular aerobic exercise. - Discussed need and benefit for weight loss. - Goal of BP <130/80 - COMP METABOLIC PANEL - LIPID PANEL BASIC - CBC Abby Mcclellan MD [facility] History of Present illness Narrative* Munira Edouard MA - 12/22/2021 1:38 PM EDT POPULATION HEALTH NAVIGATION OUTREACH Action/FYI LM for pt to call to schedule mammogram after 04/20/2022 and colonoscopy, emery,ad, hgba1c order is insystem, added notes to upcoming ov Pt identified by name and : NO Outreach Outcome/Action Unable to reach patient: Left message Reason for Outreach Care Gap or Scheduling/Wellness visits Payer: Payor: [employer]ICARE / Plan: [employer] MED[employer]ARE PPO / Product Type: PPO / Care Gap Reviewed:: Breast Cancer screening Colorectal Cancer Screening Diabetic Eye Exam HBA1C Reminder: Reminder note to check Health Maintenance for items below Health Maintenance items due: SHINGRIX VACCINE(1 of 2) Never done DTAP,TDAP,TD(1 - Tdap) due on 09/07/2011 DILATED RETINAL EXAM due on 03/10/2021 ADVANCE DIRECTIVE DISCUSSION Never done Message Sent to Practice: No Navigation Signature: Munira Edouard MA December 22, 2021 1:38 PM documented in [facility] Miscellaneous Notes* Telephone Encounter - Teresa Stuart Ma - 12/05/2021 2:22 PM EDT Left message for patient to call office * Telephone Encounter - Heidy Hawk APRN.CNS - 12/05/2021 1:56 PM EDT Let her know to start taking glimepiride daily until seen in office. Rx sent * Telephone Encounter - Teresa Stuart Ma - 12/05/2021 12:17 PM EDT Spoke to patient, states she feels fine and surprised it is this high. States blood sugar at home is 325 non fasting. She is agreeable to adding an additional medication. * Telephone Encounter - Abby Mcclellan MD - 12/05/2021 11:30 AM EDT Paged about critical value. Glucose on labs done yesterday afternoon 585 See labs below. Sugars are out of control with HgA1C up to 13.8--means average sugars 349. Call patient to see how she is doing. She has a glucometer--see how her sugar is doing. If clinically stable, can have her work with PharmD on medication adjustments TREVOR. If signs and symptoms of dehydration, infection, etc, needs to go to ER. Has follow up with Heidy this . If stable, I can add an oral med to start helping to get sugars down (add to metformin) Component Latest Ref Rng & Units 02/10/2021 08/28/2021 12/04/2021 Protein, Total 6.3 - 8.0 g/dL 6.8 7.0 Albumin 3.9 - 4.9 g/dL 4.2 4.1 Calcium 8.5 - 10.2 mg/dL 9.5 9.9 Bilirubin, Total 0.2 - 1.3 mg/dL 0.7 0.7 Alkaline Phosphatase 34 - 123 U/L 70 83 AST 13 - 35 U/L 24 17 Glucose 74 - 99 mg/dL 146 (H) 585 (H) BUN 7 - 21 mg/dL 24 (H) 15 Creatinine 0.58 - 0.96 mg/dL 0.84 0.67 Sodium 136 - 144 mmol/L 140 129 (L) Potassium 3.7 - 5.1 mmol/L 4.3 4.9 Chloride 97 - 105 mmol/L 106 (H) 95 (L) CO2 22 - 30 mmol/L 23 22 Anion Gap 9 - 18 mmol/L 11 12 ALT 7 - 38 U/L 24 15 eGFR- >60 eGFR-All Other Races . >60 eGFR >=60 mL/min/1.73m 92 WBC 3.70 - 11.00 k/uL 7.48 RBC 3.90 - 5.20 m/uL 4.89 Hemoglobin 11.5 - 15.5 g/dL 15.4 Hematocrit 36.0 - 46.0 % 47.5 (H) MCV 80.0 - 100.0 fL 97.1 MCH 26.0 - 34.0 pG 31.5 MCHC 30.5 - 36.0 g/dL 32.4 RDW-CV 11.5 - 15.0 % 12.9 Platelet Count 150 - 400 k/uL 174 MPV 9.0 - 12.7 fL 12.1 Absolute nRBC <0.01 k/uL <0.01 Cholesterol, Total <200 mg/dL 174 Triglyceride <150 mg/dL 90 HDL Cholesterol >39 mg/dL 37 (L) LDL Cholesterol <100 mg/dL 119 (H) Non HDL Cholesterol <130 mg/dL 137 (H) Fasting Time hrs 12 VLDL Cholesterol <30 mg/dL 18 TC:HDL Ratio <5.10 4.70 LDL:HDL Ratio <2.54 3.22 (H) Creatinine, Ur Random (UCRR) 20 - 300 mg/dL 52.4 Albumin, Urine Random mg/L <12.0 Albumin/Creat Ratio <30 mg/g Not calculated Hemoglobin A1C 4.3 - 5.6 % 6.9 (H) 10.2 (H) 13.8 (H) Estimated Average Glucose mg/dL 151 246 349 documented in [facility]10[facility] History of Present illness Narrative* Suzanne Zaidi (Rt), Carlos - 05/18/2020 4:30 PM EDT Radiology Service Progress Note PATIENT NAME: Lito Gonzalez DATE OF SERVICE: May 18, 2020 TIME: 4:47 PM PATIENT IDENTITY VERIFICATION COMPLETED USING TWO (2) IDENTIFIERS: Name and Date of confirmedby patient verbally. FALL SCREENING: Has the patient had 2 falls in the last year or 1 fall with injury or currently using an Ambulatory Assistive Device (Walker, Cane, Wheelchair, Crutches, etc.)? No PATIENT GENDER DATA: Female. status: : No status: NO. PATIENT RELEVANT IMPLANT DATA REVIEWED: Not Applicable RADIOLOGY DEPARTMENT: General X-ray: Exam(s) Completed: Chest X-Ray PERIPHERAL IV DATA: Not applicable SIGNED BY: RT Atul May 18, 2020 4:47 PM documented in this encounterE[facility]06[facility] History of Past illness Narrative* Problem Noted Date Resolved Date Colon cancer screening 01/05/2016 6 Nonspecific abnormal results of liver function s lorrie 10/20/2007 03/04/2012 Diabetes mellitus type 2, controlled, without co mplications 10/20/2007 06/29/2020 Last Assessment & Plan: DIABETES MELLITUS: Ms. Gonzalez was last seen on 05/2016. Since our last visit she denies excessive thirst or increased frequency of urination, chest pain or dyspnea , numbness, tingling or pain in extremities, new or unusual visual symptoms, low sugar/hypoglycemic reactions, weight loss/gain, lightheadedness/dizziness and bowel changes/loose stools. Follows a diabetic diet most of the time. She is compliant with medication(s) and is tolerating med(s) without any side effects. She reports checking her glucose on a once a day schedule with sugars twice daily range fastings: 104, 114. Patient's last HgA1C was Hemoglobin A1C (%) Date Value 09/15/2016 5.8 2016 Test sent to [facility]. ) Last Ophthalmology exam was within the past 12 months Assessment: Stable, good controle PLAN: No change. Cut back on testing to 1 x per Pain in joint, lower leg 04/21/2007 011 documented as of this encounter (statuses as of 12/08/2021) [facility] History of Past illness Narrative* Problem Noted Date Resolved Date Colon cancer screening 01/05/2016 6 Nonspecific abnormal results of liver function s lorrie 10/20/2007 03/04/2012 Diabetes mellitus type 2, controlled, without co mplications 10/20/2007 06/29/2020 Last Assessment & Plan: DIABETES MELLITUS: Ms. Gonzalez was last seen on 05/2016. Since our last visit she denies excessive thirst or increased frequency of urination, chest pain or dyspnea , numbness, tingling or pain in extremities, new or unusual visual symptoms, low sugar/hypoglycemic reactions, weight loss/gain, lightheadedness/dizziness and bowel changes/loose stools. Follows a diabetic diet most of the time. She is compliant with medication(s) and is tolerating med(s) without any side effects. She reports checking her glucose on a once a day schedule with sugars twice daily range fastings: 104, 114. Patient's last HgA1C was Hemoglobin A1C (%) Date Value 09/15/2016 5.8 2016 Test sent to [facility]. ) Last Ophthalmology exam was within the past 12 months Assessment: Stable, good controle PLAN: No change. Cut back on testing to 1 x per Pain in joint, lower leg 04/21/2007 011 documented as of this encounter (statuses as of 12/22/2021) [facility] of Past illness Narrative* Problem Noted Date Resolved Date Colon cancer screening 01/05/2016 6 Nonspecific abnormal results of liver function s lorrie 10/20/2007 03/04/2012 Diabetes mellitus type 2, controlled, without co mplications 10/20/2007 06/29/2020 Last Assessment & Plan: DIABETES MELLITUS: Ms. Gonzalez was last seen on 05/2016. Since our last visit she denies excessive thirst or increased frequency of urination, chest pain or dyspnea , numbness, tingling or pain in extremities, new or unusual visual symptoms, low sugar/hypoglycemic reactions, weight loss/gain, lightheadedness/dizziness and bowel changes/loose stools. Follows a diabetic diet most of the time. She is compliant with medication(s) and is tolerating med(s) without any side effects. She reports checking her glucose on a once a day schedule with sugars twice daily range fastings: 104, 114. Patient's last HgA1C was Hemoglobin A1C (%) Date Value 09/15/2016 5.8 2016 Test sent to [facility]. ) Last Ophthalmology exam was within the past 12 months Assessment: Stable, good controle PLAN: No change. Cut back on testing to 1 x per Pain in joint, lower leg 04/21/2007 011 documented as of this encounter (statuses as of 05/04/2022) [facility] of Past illness Narrative* Problem Noted Date Resolved Date Colon cancer screening 01/05/2016 6 Nonspecific abnormal results of liver function s lorrie 10/20/2007 03/04/2012 Diabetes mellitus type 2, controlled, without co mplications 10/20/2007 06/29/2020 Last Assessment & Plan: DIABETES MELLITUS: Ms. Gonzalez was last seen on 05/2016. Since our last visit she denies excessive thirst or increased frequency of urination, chest pain or dyspnea , numbness, tingling or pain in extremities, new or unusual visual symptoms, low sugar/hypoglycemic reactions, weight loss/gain, lightheadedness/dizziness and bowel changes/loose stools. Follows a diabetic diet most of the time. She is compliant with medication(s) and is tolerating med(s) without any side effects. She reports checking her glucose on a once a day schedule with sugars twice daily range fastings: 104, 114. Patient's last HgA1C was Hemoglobin A1C (%) Date Value 09/15/2016 5.8 2016 Test sent to [facility]. ) Last Ophthalmology exam was within the past 12 months Assessment: Stable, good controle PLAN: No change. Cut back on testing to 1 x per Pain in joint, lower leg 04/21/2007 011 documented as of this encounter (statuses as of 05/15/2022) [facility] of Past illness Narrative* Problem Noted Date Resolved Date Colon cancer screening 01/05/2016 6 Nonspecific abnormal results of liver function s bebecomfort 10/20/2007 03/04/2012 Diabetes mellitus type 2, controlled, without co mplications 10/20/2007 06/29/2020 Last Assessment & Plan: DIABETES MELLITUS: Ms. Gonzalez was last seen on 05/2016. Since our last visit she denies excessive thirst or increased frequency of urination, chest pain or dyspnea , numbness, tingling or pain in extremities, new or unusual visual symptoms, low sugar/hypoglycemic reactions, weight loss/gain, lightheadedness/dizziness and bowel changes/loose stools. Follows a diabetic diet most of the time. She is compliant with medication(s) and is tolerating med(s) without any side effects. She reports checking her glucose on a once a day schedule with sugars twice daily range fastings: 104, 114. Patient's last HgA1C was Hemoglobin A1C (%) Date Value 09/15/2016 5.8 2016 Test sent to [facility]. ) Last Ophthalmology exam was within the past 12 months Assessment: Stable, good controle PLAN: No change. Cut back on testing to 1 x per Pain in joint, lower leg 04/21/2007 011 documented as of this encounter (statuses as of 05/25/2022) [facility] of Past illness Narrative* Problem Noted Date Resolved Date Colon cancer screening 01/05/2016 6 Nonspecific abnormal results of liver function s bebecomfort 10/20/2007 03/04/2012 Diabetes mellitus type 2, controlled, without co mplications 10/20/2007 06/29/2020 Last Assessment & Plan: DIABETES MELLITUS: Ms. Gonzalez was last seen on 05/2016. Since our last visit she denies excessive thirst or increased frequency of urination, chest pain or dyspnea , numbness, tingling or pain in extremities, new or unusual visual symptoms, low sugar/hypoglycemic reactions, weight loss/gain, lightheadedness/dizziness and bowel changes/loose stools. Follows a diabetic diet most of the time. She is compliant with medication(s) and is tolerating med(s) without any side effects. She reports checking her glucose on a once a day schedule with sugars twice daily range fastings: 104, 114. Patient's last HgA1C was Hemoglobin A1C (%) Date Value 09/15/2016 5.8 2016 Test sent to [facility]. ) Last Ophthalmology exam was within the past 12 months Assessment: Stable, good controle PLAN: No change. Cut back on testing to 1 x per Pain in joint, lower leg 04/21/2007 011 documented as of this encounter (statuses as of 08/02/2022) [facility] of Past illness Narrative* Problem Noted Date Resolved Date Colon cancer screening 01/05/2016 6 Nonspecific abnormal results of liver function s lorrie 10/20/2007 03/04/2012 Diabetes mellitus type 2, controlled, without co mplications 10/20/2007 06/29/2020 Last Assessment & Plan: DIABETES MELLITUS: Ms. Gonzalez was last seen on 05/2016. Since our last visit she denies excessive thirst or increased frequency of urination, chest pain or dyspnea , numbness, tingling or pain in extremities, new or unusual visual symptoms, low sugar/hypoglycemic reactions, weight loss/gain, lightheadedness/dizziness and bowel changes/loose stools. Follows a diabetic diet most of the time. She is compliant with medication(s) and is tolerating med(s) without any side effects. She reports checking her glucose on a once a day schedule with sugars twice daily range fastings: 104, 114. Patient's last HgA1C was Hemoglobin A1C (%) Date Value 09/15/2016 5.8 2016 Test sent to [facility]. ) Last Ophthalmology exam was within the past 12 months Assessment: Stable, good controle PLAN: No change. Cut back on testing to 1 x per Pain in joint, lower leg 04/21/2007 011 documented as of this encounter (statuses as of 10/19/2022) [facility] of [facility] illness Narrative* Problem Noted Date Resolved Date Colon cancer screening 01/05/2016 6 Nonspecific abnormal results of liver function s bebecomfort 10/20/2007 03/04/2012 Diabetes mellitus type 2, controlled, without co mplications 10/20/2007 06/29/2020 Last Assessment & Plan: DIABETES MELLITUS: Ms. Gonzalez was last seen on 05/2016. Since our last visit she denies excessive thirst or increased frequency of urination, chest pain or dyspnea , numbness, tingling or pain in extremities, new or unusual visual symptoms, low sugar/hypoglycemic reactions, weight loss/gain, lightheadedness/dizziness and bowel changes/loose stools. Follows a diabetic diet most of the time. She is compliant with medication(s) and is tolerating med(s) without any side effects. She reports checking her glucose on a once a day schedule with sugars twice daily range fastings: 104, 114. Patient's last HgA1C was Hemoglobin A1C (%) Date Value 09/15/2016 5.8 2016 Test sent to [facility]. ) Last Ophthalmology exam was within the past 12 months Assessment: Stable, good controle PLAN: No change. Cut back on testing to 1 x per Pain in joint, lower leg 04/21/2007 011 documented as of this encounter (statuses as of 11/09/2022) [facility] of Past illness Narrative* Problem Noted Date Resolved Date Colon cancer screening 01/05/2016 6 Nonspecific abnormal results of liver function s bebedy 10/20/2007 03/04/2012 Diabetes mellitus type 2, controlled, without co mplications 10/20/2007 06/29/2020 Last Assessment & Plan: DIABETES MELLITUS: Ms. Gonzalez was last seen on 05/2016. Since our last visit she denies excessive thirst or increased frequency of urination, chest pain or dyspnea , numbness, tingling or pain in extremities, new or unusual visual symptoms, low sugar/hypoglycemic reactions, weight loss/gain, lightheadedness/dizziness and bowel changes/loose stools. Follows a diabetic diet most of the time. She is compliant with medication(s) and is tolerating med(s) without any side effects. She reports checking her glucose on a once a day schedule with sugars twice daily range fastings: 104, 114. Patient's last HgA1C was Hemoglobin A1C (%) Date Value 09/15/2016 5.8 2016 Test sent to [facility]. ) Last Ophthalmology exam was within the past 12 months Assessment: Stable, good controle PLAN: No change. Cut back on testing to 1 x per Pain in joint, lower leg 04/21/2007 011 documented as of this encounter (statuses as of 01/16/2023) [facility] of [facility] illness Narrative* Problem Noted Date Resolved Date Colon cancer screening 01/05/2016 6 Nonspecific abnormal results of liver function s lorrie 10/20/2007 03/04/2012 Diabetes mellitus type 2, controlled, without co mplications 10/20/2007 06/29/2020 Last Assessment & Plan: DIABETES MELLITUS: Ms. Gonzalez was last seen on 05/2016. Since our last visit she denies excessive thirst or increased frequency of urination, chest pain or dyspnea , numbness, tingling or pain in extremities, new or unusual visual symptoms, low sugar/hypoglycemic reactions, weight loss/gain, lightheadedness/dizziness and bowel changes/loose stools. Follows a diabetic diet most of the time. She is compliant with medication(s) and is tolerating med(s) without any side effects. She reports checking her glucose on a once a day schedule with sugars twice daily range fastings: 104, 114. Patient's last HgA1C was Hemoglobin A1C (%) Date Value 09/15/2016 5.8 2016 Test sent to [facility]. ) Last Ophthalmology exam was within the past 12 months Assessment: Stable, good controle PLAN: No change. Cut back on testing to 1 x per Pain in joint, lower leg 04/21/2007 011 documented as of this encounter (statuses as of 01/21/2023) [facility] illness Narrative* Problem Noted Date Diagnosed Date Resolved Date Colon cancer screening 01/05/201601/04 Nonspecific abnormal results of liver function study 10/20/2007 03/04/2012 Diabetes mellitus type 2, co ntrolled, without complications 10/20/2007 06/29/2020 Last Assessment & Plan: DIABETES MELLITUS: Ms. Gonzalez was last seen on 05/2016. Since our last visit she denies excessive thirst or increased frequency of urination, chest pain or dyspnea , numbness, tingling or pain in extremities, new or unusual visual symptoms, low sugar/hypoglycemic reactions, weight loss/gain, lightheadedness/dizziness and bowel changes/loose stools. Follows a diabetic diet most of the time. She is compliant with medication(s) and is tolerating med(s) without any side effects. She reports checking her glucose on a once a day schedule with sugars twice daily range fastings: 104, 114. Patient's last HgA1C was Hemoglobin A1C (%) Date Value 09/15/2016 5.8 2016 Test sent to [facility]. ) Last Ophthalmology exam was within the past 12 months Assessment: Stable, good controle PLAN: No change. Cut back on testing to 1 x per Pain in joint, lower leg 04/21/2007 documented as of this encounter (statuses as of 04/19/2023) [facility] illness Narrative* Problem Noted Date Diagnosed Date Resolved Date Colon cancer screening 01/05/201601/04 Nonspecific abnormal results of liver function study 10/20/2007 03/04/2012 Diabetes mellitus type 2, co ntrolled, without complications 10/20/2007 06/29/2020 Last Assessment & Plan: DIABETES MELLITUS: Ms. Gonzalez was last seen on 05/2016. Since our last visit she denies excessive thirst or increased frequency of urination, chest pain or dyspnea , numbness, tingling or pain in extremities, new or unusual visual symptoms, low sugar/hypoglycemic reactions, weight loss/gain, lightheadedness/dizziness and bowel changes/loose stools. Follows a diabetic diet most of the time. She is compliant with medication(s) and is tolerating med(s) without any side effects. She reports checking her glucose on a once a day schedule with sugars twice daily range fastings: 104, 114. Patient's last HgA1C was Hemoglobin A1C (%) Date Value 09/15/2016 5.8 2016 Test sent to [facility]. ) Last Ophthalmology exam was within the past 12 months Assessment: Stable, good controle PLAN: No change. Cut back on testing to 1 x per Pain in joint, lower leg 04/21/2007 documented as of this encounter (statuses as of 05/02/2023) [facility] illness Narrative* Problem Noted Date Diagnosed Date Resolved Date Colon cancer screening 01/05/201601/04 Nonspecific abnormal results of liver function study 10/20/2007 03/04/2012 Diabetes mellitus type 2, co ntrolled, without complications 10/20/2007 06/29/2020 Last Assessment & Plan: DIABETES MELLITUS: Ms. Gonzalez was last seen on 05/2016. Since our last visit she denies excessive thirst or increased frequency of urination, chest pain or dyspnea , numbness, tingling or pain in extremities, new or unusual visual symptoms, low sugar/hypoglycemic reactions, weight loss/gain, lightheadedness/dizziness and bowel changes/loose stools. Follows a diabetic diet most of the time. She is compliant with medication(s) and is tolerating med(s) without any side effects. She reports checking her glucose on a once a day schedule with sugars twice daily range fastings: 104, 114. Patient's last HgA1C was Hemoglobin A1C (%) Date Value 09/15/2016 5.8 2016 Test sent to [facility]. ) Last Ophthalmology exam was within the past 12 months Assessment: Stable, good controle PLAN: No change. Cut back on testing to 1 x per Pain in joint, lower leg 04/21/2007 documented as of this encounter (statuses as of 05/11/2023) [facility] illness Narrative* Problem Noted Date Diagnosed Date Resolved Date Colon cancer screening 01/05/201601/04 Nonspecific abnormal results of liver function study 10/20/2007 03/04/2012 Diabetes mellitus type 2, co ntrolled, without complications 10/20/2007 06/29/2020 Last Assessment & Plan: DIABETES MELLITUS: Ms. Gonzalez was last seen on 05/2016. Since our last visit she denies excessive thirst or increased frequency of urination, chest pain or dyspnea , numbness, tingling or pain in extremities, new or unusual visual symptoms, low sugar/hypoglycemic reactions, weight loss/gain, lightheadedness/dizziness and bowel changes/loose stools. Follows a diabetic diet most of the time. She is compliant with medication(s) and is tolerating med(s) without any side effects. She reports checking her glucose on a once a day schedule with sugars twice daily range fastings: 104, 114. Patient's last HgA1C was Hemoglobin A1C (%) Date Value 09/15/2016 5.8 2016 Test sent to [facility]. ) Last Ophthalmology exam was within the past 12 months Assessment: Stable, good controle PLAN: No change. Cut back on testing to 1 x per Pain in joint, lower leg 04/21/2007 documented as of this encounter (statuses as of 05/16/2023) [facility] History of Past illness Narrative* Problem Noted Date Diagnosed Date Resolved Date Colon cancer screening 01/05/201601/04 Nonspecific abnormal results of liver function study 10/20/2007 03/04/2012 Diabetes mellitus type 2, co ntrolled, without complications 10/20/2007 06/29/2020 Last Assessment & Plan: DIABETES MELLITUS: Ms. Gonzalez was last seen on 05/2016. Since our last visit she denies excessive thirst or increased frequency of urination, chest pain or dyspnea , numbness, tingling or pain in extremities, new or unusual visual symptoms, low sugar/hypoglycemic reactions, weight loss/gain, lightheadedness/dizziness and bowel changes/loose stools. Follows a diabetic diet most of the time. She is compliant with medication(s) and is tolerating med(s) without any side effects. She reports checking her glucose on a once a day schedule with sugars twice daily range fastings: 104, 114. Patient's last HgA1C was Hemoglobin A1C (%) Date Value 09/15/2016 5.8 2016 Test sent to [facility]. ) Last Ophthalmology exam was within the past 12 months Assessment: Stable, good controle PLAN: No change. Cut back on testing to 1 x per Pain in joint, lower leg 04/21/2007 documented as of this encounter (statuses as of 06/02/2023) [facility] History of Past illness Narrative* Problem Noted Date Diagnosed Date Resolved Date Colon cancer screening 01/05/201601/04 Nonspecific abnormal results of liver function study 10/20/2007 03/04/2012 Diabetes mellitus type 2, co ntrolled, without complications 10/20/2007 06/29/2020 Last Assessment & Plan: DIABETES MELLITUS: Ms. Gonzalez was last seen on 05/2016. Since our last visit she denies excessive thirst or increased frequency of urination, chest pain or dyspnea , numbness, tingling or pain in extremities, new or unusual visual symptoms, low sugar/hypoglycemic reactions, weight loss/gain, lightheadedness/dizziness and bowel changes/loose stools. Follows a diabetic diet most of the time. She is compliant with medication(s) and is tolerating med(s) without any side effects. She reports checking her glucose on a once a day schedule with sugars twice daily range fastings: 104, 114. Patient's last HgA1C was Hemoglobin A1C (%) Date Value 09/15/2016 5.8 2016 Test sent to [facility]. ) Last Ophthalmology exam was within the past 12 months Assessment: Stable, good controle PLAN: No change. Cut back on testing to 1 x per Pain in joint, lower leg 04/21/2007 documented as of this encounter (statuses as of 07/12/2023) [facility] History of Past illness Narrative* Problem Noted Date Diagnosed Date Resolved Date Colon cancer screening 01/05/201601/04 Nonspecific abnormal results of liver function study 10/20/2007 03/04/2012 Diabetes mellitus type 2, co ntrolled, without complications 10/20/2007 06/29/2020 Last Assessment & Plan: DIABETES MELLITUS: Ms. Gonzalez was last seen on 05/2016. Since our last visit she denies excessive thirst or increased frequency of urination, chest pain or dyspnea , numbness, tingling or pain in extremities, new or unusual visual symptoms, low sugar/hypoglycemic reactions, weight loss/gain, lightheadedness/dizziness and bowel changes/loose stools. Follows a diabetic diet most of the time. She is compliant with medication(s) and is tolerating med(s) without any side effects. She reports checking her glucose on a once a day schedule with sugars twice daily range fastings: 104, 114. Patient's last HgA1C was Hemoglobin A1C (%) Date Value 09/15/2016 5.8 2016 Test sent to [facility]. ) Last Ophthalmology exam was within the past 12 months Assessment: Stable, good controle PLAN: No change. Cut back on testing to 1 x per Pain in joint, lower leg 04/21/2007 documented as of this encounter (statuses as of 10/07/2023) [facility] History of Past illness Narrative* Problem Noted Date Diagnosed Date Resolved Date Colon cancer screening 01/05/201601/04 Nonspecific abnormal results of liver function study 10/20/2007 03/04/2012 Diabetes mellitus type 2, co ntrolled, without complications 10/20/2007 06/29/2020 Last Assessment & Plan: DIABETES MELLITUS: Ms. Gonzalez was last seen on 05/2016. Since our last visit she denies excessive thirst or increased frequency of urination, chest pain or dyspnea , numbness, tingling or pain in extremities, new or unusual visual symptoms, low sugar/hypoglycemic reactions, weight loss/gain, lightheadedness/dizziness and bowel changes/loose stools. Follows a diabetic diet most of the time. She is compliant with medication(s) and is tolerating med(s) without any side effects. She reports checking her glucose on a once a day schedule with sugars twice daily range fastings: 104, 114. Patient's last HgA1C was Hemoglobin A1C (%) Date Value 09/15/2016 5.8 2016 Test sent to [facility]. ) Last Ophthalmology exam was within the past 12 months Assessment: Stable, good controle PLAN: No change. Cut back on testing to 1 x per Pain in joint, lower leg 04/21/2007 documented as of this encounter (statuses as of 10/08/2023) [facility] History of Past illness Narrative* Problem Noted Date Diagnosed Date Resolved Date Colon cancer screening 01/05/201601/04 Generalized OA 05/10/2008 10/25/2023 Nonspecific abnormal results of liver function study 10/20/2007 03/04/2012 Diabetes mellitus type 2, co ntrolled, without complications 10/20/2007 06/29/2020 Last Assessment & Plan: DIABETES MELLITUS: Ms. Gonzalez was last seen on 05/2016. Since our last visit she denies excessive thirst or increased frequency of urination, chest pain or dyspnea , numbness, tingling or pain in extremities, new or unusual visual symptoms, low sugar/hypoglycemic reactions, weight loss/gain, lightheadedness/dizziness and bowel changes/loose stools. Follows a diabetic diet most of the time. She is compliant with medication(s) and is tolerating med(s) without any side effects. She reports checking her glucose on a once a day schedule with sugars twice daily range fastings: 104, 114. Patient's last HgA1C was Hemoglobin A1C (%) Date Value 09/15/2016 5.8 2016 Test sent to [facility]. ) Last Ophthalmology exam was within the past 12 months Assessment: Stable, good controle PLAN: No change. Cut back on testing to 1 x per Pain in joint, lower leg 04/21/2007 Tachycardia, unspecified 04/03/2005 documented as of this encounter (statuses as of 11/13/2023) [facility] History of Past illness Narrative* Problem Noted Date Diagnosed Date Resolved Date Colon cancer screening 01/05/201601/04 Generalized OA 05/10/2008 10/25/2023 Nonspecific abnormal results of liver function study 10/20/2007 03/04/2012 Diabetes mellitus type 2, co ntrolled, without complications 10/20/2007 06/29/2020 Last Assessment & Plan: DIABETES MELLITUS: Ms. Gonzalez was last seen on 05/2016. Since our last visit she denies excessive thirst or increased frequency of urination, chest pain or dyspnea , numbness, tingling or pain in extremities, new or unusual visual symptoms, low sugar/hypoglycemic reactions, weight loss/gain, lightheadedness/dizziness and bowel changes/loose stools. Follows a diabetic diet most of the time. She is compliant with medication(s) and is tolerating med(s) without any side effects. She reports checking her glucose on a once a day schedule with sugars twice daily range fastings: 104, 114. Patient's last HgA1C was Hemoglobin A1C (%) Date Value 09/15/2016 5.8 2016 Test sent to [facility]. ) Last Ophthalmology exam was within the past 12 months Assessment: Stable, good controle PLAN: No change. Cut back on testing to 1 x per Pain in joint, lower leg 04/21/2007 Tachycardia, unspecified 04/03/2005 documented as of this encounter (statuses as of 11/15/2023) [facility] Evaluation note* Diagnosis Onset Date Resolution Status Essential (primary) hypertension chronic Nonrheumatic aortic (valve) stenosis chronic Atrial fibrillation with rap id ventricular response August, resolved [facility] Work Phone: Evaluation note* Diagnosis Onset Date Resolution Status Diabetes acute Obesity acute Essential (primary) hypertension chronic [facility] Work Phone: Evaluation note* Diagnosis Need for vaccination- Primary Need for prophylactic vaccination and inoculation against unspecified single disease [facility] Diagnosis Need for vaccination- Primary Need for prophylactic vaccination and inoculation against unspecified single disease [facility] Diagnosis Controlled type 2 diabetes mellitus without complication, without long-term current use of insulin (HCC)- Primary Plantar fasciitis of right foot Plantar fascial fibromatosis Nonrheumatic aortic valve stenosis Aortic valve disorders Encounter for screening mammogram for breast cancer Essential hypertension Unspecified essential hypertension [facility] Diagnosis Acute cough- Primary [facility] Diagnosis Controlled type 2 diabetes mellitus without complication, without long-term current use of insulin (HCC)- Primary [facility] Diagnosis Type 2 diabetes mellitus with hyperglycemia, without long-term current use of insulin (HCC)- Primary Essential hypertension Unspecified essential hypertension Hyperlipidemia associated with type 2 diabetes mellitus (HCC) Moderate aortic stenosis by prior echocardiogram Aortic valve disorders Acute cough [facility] Diagnosis Controlled type 2 diabetes mellitus without complication, without long-term current use of insulin (HCC) [facility] Diagnosis Encounter for screening mammogram for breast cancer [facility] Diagnosis Type 2 diabetes mellitus with other specified complication, without long-term current use of insulin (HCC)- Primary Hypertension goal BP (blood pressure) < 140/90 Unspecified essential hypertension Hyperlipidemia associated with type 2 diabetes mellitus (HCC) (HCC) [facility]* Diagnosis Medicare annual wellness visit, subsequent- Primary Routine general medical examination at a health care facility Nonrheumatic aortic valve stenosis Aortic valve disorders Cognitive impairment Unspecified persistent mental disorders due to conditions classified elsewhere Abnormality of gait Falling episodes Lack of coordination Screening for depression Encounter for screening examination for other mental health and behavioral disorders Hypertension goal BP (blood pressure) < 140/90 Unspecified essential hypertension Type 2 diabetes mellitus with other specified complication, without long-term current use of insulin (HCC) Hyperlipidemia associated with type 2 diabetes mellitus (HCC) (HCC) Encounter for therapeutic drug monitoring [facility] Diagnosis Severe aortic stenosis- Primary Aortic valve disorders Memory loss Dizziness Dizziness and giddiness Daytime hypersomnolence Polypharmacy Issue of repeat prescriptions documented in this encounter [facility] note* Diagnosis Nonrheumatic aortic valve stenosis- Primary PAF (paroxysmal atrial fibrillation) ([facility]) Atrial fibrillation documented in this encounter [facility] note* Diagnosis Nonrheumatic aortic valve stenosis documented in this encounter [facility] note* Diagnosis Severe aortic stenosis- Primary Aortic valve disorders documented in this encounter [facility] note* Diagnosis Nonrheumatic aortic valve stenosis- Primary Severe aortic stenosis- Primary Aortic valve disorders Nonrheumatic aortic valve stenosis documented in this encounter [facility] note* Diagnosis Nonrheumatic aortic valve stenosis- Primary Nonrheumatic aortic valve stenosis Severe aortic stenosis Aortic valve disorders Complete heart block (CMS/HCC) (HCC) Atrioventricular block, complete Complete heart block (CMS/HCC) (HCC) Atrioventricular block, complete Nonrheumatic aortic valve stenosis Complete heart block (CMS/HCC) (HCC) Atrioventricular block, complete Encounter for adjustment or management of cardiac device documented in this encounter [facility] note* Diagnosis S/P TAVR (transcatheter aortic valve replacement)- Primary Essential hypertension Unspecified essential hypertension Aortic valve stenosis, etiology of cardiac valve disease unspecified Complete heart block (HCC) Atrioventricular block, complete documented in this encounter [facility] note* Diagnosis Controlled type 2 diabetes mellitus without complication, without long-term current use of insulin (HCC)- Primary BMI 45.0-49.9, adult ([facility]) Body Mass Index 45.0-49.9, adult Hypertension goal BP (blood pressure) < 140/90 Unspecified essential hypertension Hand pain, left Pain in limb Need for shingles vaccine Need for prophylactic vaccination and inoculation against other viral diseases Acute cough [facility] Diagnosis Severe aortic stenosis- Primary Aortic valve disorders PAF (paroxysmal atrial fibrillation) (HCC) Atrial fibrillation Essential hypertension Unspecified essential hypertension Complete heart block (HCC) Atrioventricular block, complete Encounter for adjustment or management of cardiac device documented in this encounter [facility] note* Diagnosis Aortic valve stenosis, etiology of cardiac valve disease unspecified Encounter for adjustment or management of cardiac device documented in this encounter [facility] note* Diagnosis Severe aortic stenosis- Primary Aortic valve disorders Memory loss Dizziness Dizziness and giddiness Daytime hypersomnolence Polypharmacy Issue of repeat prescriptions Severe aortic stenosis- Primary Aortic valve disorders PAF (paroxysmal atrial fibrillation) ([facility]) Atrial fibrillation Essential hypertension Unspecified essential hypertension Complete heart block (HCC) Atrioventricular block, complete PAF (paroxysmal atrial fibrillation) ([facility]) Atrial fibrillation Encounter for adjustment or management of cardiac device documented in this encounter [facility] note* Diagnosis Controlled type 2 diabetes mellitus without complication, without long-term current use of insulin ([facility])- Primary BMI 45.0-49.9, adult ([facility]) Body Mass Index 45.0-49.9, adult Hypertension goal BP (blood pressure) < 140/90 Unspecified essential hypertension Hand pain, left Pain in limb Need for shingles vaccine Need for prophylactic vaccination and inoculation against other viral diseases Type 2 diabetes mellitus with other specified complication, without long-term current use of insulin ([facility])- Primary Hypertension goal BP (blood pressure) < 140/90 Unspecified essential hypertension Hyperlipidemia associated with type 2 diabetes mellitus ([facility]) ([facility]) documented in this encounter [facility] note* Diagnosis Controlled type 2 diabetes mellitus without complication, without long-term current use of insulin ([facility])- Primary BMI 45.0-49.9, adult ([facility]) Body Mass Index 45.0-49.9, adult Hypertension goal BP (blood pressure) < 140/90 Unspecified essential hypertension Hand pain, left Pain in limb Need for shingles vaccine Need for prophylactic vaccination and inoculation against other viral diseases Type 2 diabetes mellitus with hyperglycemia, without long-term current use of insulin ([facility])- Primary Hyperlipidemia associated with type 2 diabetes mellitus (HCC) ([facility]) Hypertension goal BP (blood pressure) < 140/90 Unspecified essential hypertension PAF (paroxysmal atrial fibrillation) ([facility]) Atrial fibrillation Class 3 severe obesity due to excess calories with body mass index (BMI) of 45.0 to 49.9 in adult, unspecified whether serious comorbidity present ([facility]) Encounter for immunization Need for other specified prophylactic vaccination against single bacterial disease Nonrheumatic aortic valve stenosis Aortic valve disorders Arm edema Edema Cardiac pacemaker Cardiac pacemaker in situ documented in this encounter [facility] note* Diagnosis Controlled type 2 diabetes mellitus without complication, without long-term current use of insulin ([facility])- Primary BMI 45.0-49.9, adult ([facility]) Body Mass Index 45.0-49.9, adult Hypertension goal BP (blood pressure) < 140/90 Unspecified essential hypertension Hand pain, left Pain in limb Need for shingles vaccine Need for prophylactic vaccination and inoculation against other viral diseases Type 2 diabetes mellitus with hyperglycemia, without long-term current use of insulin (HCC)- Primary Class 3 severe obesity due to excess calories with body mass index (BMI) of 45.0 to 49.9 in adult, unspecified whether serious comorbidity present (HCC) Hyperlipidemia associated with type 2 diabetes mellitus (HCC) documented in this encounter [facility] noteNo assessment information availableK[facility] Work Phone: Evaluation note* Diagnosis Controlled type 2 diabetes mellitus without complication, without long-term current use of insulin (HCC)- Primary BMI 45.0-49.9, adult ([facility]) Body Mass Index 45.0-49.9, adult Hypertension goal BP (blood pressure) < 140/90 Unspecified essential hypertension Hand pain, left Pain in limb Need for shingles vaccine Need for prophylactic vaccination and inoculation against other viral diseases Type 2 diabetes mellitus with hyperglycemia, without long-term current use of insulin (HCC)- Primary Nonrheumatic aortic valve stenosis Aortic valve disorders Cardiac pacemaker Cardiac pacemaker in situ Hyperlipidemia associated with type 2 diabetes mellitus (HCC) Hypertension goal BP (blood pressure) < 140/90 Unspecified essential hypertension Sciatic leg pain documented in this encounter [facility] note* Diagnosis Controlled type 2 diabetes mellitus without complication, without long-term current use of insulin (HCC)- Primary BMI 45.0-49.9, adult (HCC) Body Mass Index 45.0-49.9, adult Hypertension goal BP (blood pressure) < 140/90 Unspecified essential hypertension Hand pain, left Pain in limb Need for shingles vaccine Need for prophylactic vaccination and inoculation against other viral diseases Type 2 diabetes mellitus with hyperglycemia, without long-term current use of insulin (HCC)- Primary Hyperlipidemia associated with type 2 diabetes mellitus (HCC) Hypertension goal BP (blood pressure) < 140/90 Unspecified essential hypertension documented in this encounter [facility] note* Diagnosis Controlled type 2 diabetes mellitus without complication, without long-term current use of insulin (HCC)- Primary BMI 45.0-49.9, adult (HCC) Body Mass Index 45.0-49.9, adult Hypertension goal BP (blood pressure) < 140/90 Unspecified essential hypertension Hand pain, left Pain in limb Need for shingles vaccine Need for prophylactic vaccination and inoculation against other viral diseases Class 3 severe obesity due to excess calories with body mass index (BMI) of 45.0 to 49.9 in adult, unspecified whether serious comorbidity present (HCC) Hyperlipidemia associated with type 2 diabetes mellitus (HCC) Type 2 diabetes mellitus with hyperglycemia, without long-term current use of insulin (HCC) [facility] Diagnosis Onset Date Resolution Status Admit Date Intermittent complete heart block acute February 08, 2025 10:09am Paroxysmal atrial fibrillation acute February 08, 2025 10:09am Essential (primary) hypertension chronic February 08, 2025 10:09am Nonrheumatic aortic (valve) stenosis chronic February 08, 2025 10:09am [place] [facility] Work Phone: Evaluation note* Diagnosis Controlled type 2 diabetes mellitus without complication, without long-term current use of insulin (HCC)- Primary BMI 45.0-49.9, adult (HCC) Body Mass Index 45.0-49.9, adult Hypertension goal BP (blood pressure) < 140/90 Unspecified essential hypertension Hand pain, left Pain in limb Need for shingles vaccine Need for prophylactic vaccination and inoculation against other viral diseases Class 3 severe obesity due to excess calories with body mass index (BMI) of 45.0 to 49.9 in adult, unspecified whether serious comorbidity present (HCC) Hyperlipidemia associated with type 2 diabetes mellitus (HCC) Type 2 diabetes mellitus with hyperglycemia, without long-term current use of insulin (HCC) [facility] Diagnostic Procedure Only (Routine) - Pending Review Specialty Diagnoses / Procedures Referred By Contac t Referred To Contact [facility] Diagnoses Encounter for screening mammogram for breast cancer Procedures DAVID SCREENING SCREENING MAMMOGRAPHY BI 2-VIEW BREAST INC Abby So MD [address] [place] [address] [facility] [address] [place] [address] Referral ID Status Reason Start Date Expiration Date Visits Requested Visits Authorized [id number] Pending Review Auto-Generat ed Referral 04/18/2022 05/18/2023 1 1 [facility] for referral (narrative)* Diagnostic Procedure Only (Routine) - Closed Specialty Diagnoses / Procedures Referred By Zandra oliva Referred To Contact [facility] Diagnoses Encounter for screening mammogram for breast cancer Procedures DAVID SCREENING SCREENING MAMMOGRAPHY BI 2-VIEW BREAST INC Abby So MD [address] [place] [address] [facility] [address] [place] [address] Referral ID Status Reason Start Date Expiration Date V isits Requested Visits Authorized [id number] Closed Auto-Generate d Referral 04/18/2022 05/18/2023 1 1 [facility] for referral (narrative)No reason for referral information availableK[facility] Work Phone: Reason for visit Narrative* Diagnostic Procedure Only (Routine) - Closed Specialty Diagnoses / Procedures Referred By Zandra oliva Referred To Contact [facility] Diagnoses Encounter for screening mammogram for breast cancer Procedures DAVID SCREENING SCREENING MAMMOGRAPHY BI 2-VIEW BREAST INC Abby So MD [address] [place] [address] [facility] [address] [place] [address] Referral ID Status Reason Start Date Expiration Date V isits Requested Visits Authorized [id number] Closed Auto-Generate d Referral 04/18/2022 05/18/2023 1 1 [facility] Chief Complaint and Reason for Visit Chief Complaint f/u visit Michael NONRHEUMATIC AORTIC STENOSIS HAYDEE Reason for Visit Essential (primary) hypertension Nonrheumatic aortic (valve) stenosis Atrial fibrillation with rapid ventricular response 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, 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, 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 ILED SCREENING Reason for Visit Diabetes Obesity Essential (primary) hypertension Chief Complaint Admit Date Pacer Check Remote September 07, 2024 2:00am Pacer Check Remote December 02, 2024 2:21am Pacer Check Remote December 07, 2024 2:00a m Chief Complaint Admit Date Pacer Check Remote December 02, 2024 2:21am Pacer Check Remote December 07, 2024 2:00a m ANNUAL IN CLINIC/SD @ 10:30 February 08, 2 025 10:08am 1 Y FU/BARON @ 10 February 08, 2025 10:0 9am Reason for Visit Admit Date Intermittent complete heart block January 262024 10:09am Paroxysmal atrial fibrillation January 10:09am Essential (primary) hypertension February 082024 10:09am Nonrheumatic aortic (valve) stenosis Jan 10:09am Reason for Visit Admit Date Intermittent complete heart block January 262024 10:08am Paroxysmal atrial fibrillation January 10:08am Presence of cardiac pacemaker February 08, 2025 10:08am Intermittent complete heart block January 262024 10:09am Paroxysmal atrial fibrillation January 10:09am Essential (primary) hypertension February 082024 10:09am Nonrheumatic aortic (valve) stenosis Jan 10:09am Chief Complaint Admit Date Pacer Check Remote December 02, 2024 2:21am Pacer Check Remote December 07, 2024 2:00a m Pacer Check Remote February 08, 2025 9:00 am ANNUAL IN CLINIC/SD @ 10:30 February 08, 2 025 10:08am 1 Y FU/BARON @ 10 February 08, 2025 10:0 9am Family History No Family History Records Found Relationship Condition Age at Onset Recorded Date/T glory father Chronic obstructive pulmonary disease Unk nown Coronary artery disease Unknown mother Malignant neoplasm Unknown Malignant neoplasm of breast Unknown Advance Directives No Advanced Directives Records Found Advance Directive Response Recorded Date/ Time Advance Directives No August 11:43am Living Will Yes December 02, 2019 1: 55pm Power of Hand Flatwork Finisher Yes December 02, 2019 1:55pm Documents on File Type Date Recorded 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 Yes December 02, 2019 1:55pm Advance Directives Yes January 19 8:53am Reason for Referral Specialty Diagnoses / Procedures Referred By Contac t Referred To Contact Radiology Diagnoses Nonrheumatic aortic valve stenosis Procedures CTA Angiogram TAVR America Davis APRN - WALL MAN [address] [place] [address] Referral ID Status Reason Start Date Expiration Date Visits Re quested Visits Authorized [id number] Closed 03/10/2024 05/09/2024 1 1 Specialty Diagnoses / Procedures Referred By Contac t Referred To Contact Cardiology Diagnoses S/P TAVR (transcatheter aortic valve replacement) Aortic valve stenosis, etiology of cardiac valve disease unspecified Procedures Transthoracic echocardiogram (TTE) complete with contrast, bubble, strain, and 3D PRN MA ECHO TTHRC R-T 2D W/WOM-MODE COMPL SPEC&COLR D MA TTE W OR WO FOL WCON,DOPPLER Lindsey Tolentino LAB SUPPORT TECH - WALL MAN [address] [address] Referral ID Status Reason Start Date Expiration Date V isits Requested Visits Authorized [id number] Pending Review 04/17/2024 04/17/2025 1 1 Specialty Diagnoses / Procedures Referred By Contac t Referred To Contact Cardiology Diagnoses Essential hypertension S/P TAVR (transcatheter aortic valve replacement) Aortic valve stenosis, etiology of cardiac valve disease unspecified Procedures MA OFFICE/OUTPATIENT [facility] 60 MINUTES Lindsey Tolentino LAB SUPPORT TECH - WALL MAN [address] [address] Referral ID Status Reason Start Date Expiration Date Visits Requested Visits Authorized [id number] Pending Review Specialty Services Required 04/17/2024 04/17/2025 1 1 [facility]ty Diagnoses / [facility] Ref[facility] To Contact Cardiology Diagnoses Aortic valve stenosis, etiology of cardiac valve disease unspecified Procedures Transthoracic echocardiogram (TTE) complete with contrast, bubble, strain, and 3D PRN MA ECHO TTHRC R-T 2D W/WOM-MODE COMPL SPEC&COLR D MA TTE W OR WO FOL WCON,Lindsey Castro, LAB SUPPORT TECH - WALL MAN [address] [place] [id number] Referral ID Status Reason Start Date Expiration Date Visits Re quested Visits Authorized [id number] Closed 05/07/2024 07/05/2024 1 1 Summary Purpose Additional Source Comments Goals (unrecognized section and content) Goals may be documented in a n alternate sectionGoals may be documented in an alternate sectionGoals may be documented in an alternate sectionGoals may be documented in an alternate sectionGoals may be documented in an alternate sectionGoals may be documented in an alternate sectionGoals may be documented in an alternate section Source Comments (unrecognize d section and content) In the event this informatio n is protected by the Federal Confidentiality of Alcohol and Drug Abuse Patient Records regulations: The Federal rules restrict any use of the information to criminally investigate or prosecute any alcohol or drug abuse patient.[facility] the event this information is protected by the Federal Confidentiality of Alcohol and Drug Abuse Patient Records regulations: The Federal rules restrict any use of the information to criminally investigate or prosecute any alcohol or drug abuse patient.[facility] HospitalIn the event this information is protected by the Federal Confidentiality of Alcohol and Drug Abuse Patient Records regulations: The Federal rules restrict any use of the information to criminally investigate or prosecute any alcohol or drug abuse patient.[facility] HospitalIn the event this information is protected by the Federal Confidentiality of Alcohol and Drug Abuse Patient Records regulations: The Federal rules restrict any use of the information to criminally investigate or prosecute any alcohol or drug abuse patient.[facility] HospitalIn the event this information is protected by the Federal Confidentiality of Alcohol and Drug Abuse Patient Records regulations: The Federal rules restrict any use of the information to criminally investigate or prosecute any alcohol or drug abuse patient.[facility] HospitalIn the event this information is protected by the Federal Confidentiality of Alcohol and Drug Abuse Patient Records regulations: The Federal rules restrict any use of the information to criminally investigate or prosecute any alcohol or drug abuse patient.[facility] HospitalIn the event this information is protected by the Federal Confidentiality of Alcohol and Drug Abuse Patient Records regulations: The Federal rules restrict any use of the information to criminally investigate or prosecute any alcohol or drug abuse patient.[facility] HospitalIn the event this information is protected by the Federal Confidentiality of Alcohol and Drug Abuse Patient Records regulations: The Federal rules restrict any use of the information to criminally investigate or prosecute any alcohol or drug abuse patient.[facility] HospitalIn the event this information is protected by the Federal Confidentiality of Alcohol and Drug Abuse Patient Records regulations: The Federal rules restrict any use of the information to criminally investigate or prosecute any alcohol or drug abuse patient.[facility] HospitalIn the event this information is protected by the Federal Confidentiality of Alcohol and Drug Abuse Patient Records regulations: The Federal rules restrict any use of the information to criminally investigate or prosecute any alcohol or drug abuse patient.[facility] HospitalIn the event this information is protected by the Federal Confidentiality of Alcohol and Drug Abuse Patient Records regulations: The Federal rules restrict any use of the information to criminally investigate or prosecute any alcohol or drug abuse patient.[facility] HospitalIn the event this information is protected by the Federal Confidentiality of Alcohol and Drug Abuse Patient Records regulations: The Federal rules restrict any use of the information to criminally investigate or prosecute any alcohol or drug abuse patient.[facility] HospitalIn the event this information is protected by the Federal Confidentiality of Alcohol and Drug Abuse Patient Records regulations: The Federal rules restrict any use of the information to criminally investigate or prosecute any alcohol or drug abuse patient.[facility] HospitalIn the event this information is protected by the Federal Confidentiality of Alcohol and Drug Abuse Patient Records regulations: The Federal rules restrict any use of the information to criminally investigate or prosecute any alcohol or drug abuse patient.[facility] HospitalIn the event this information is protected by the Federal Confidentiality of Alcohol and Drug Abuse Patient Records regulations: The Federal rules restrict any use of the information to criminally investigate or prosecute any alcohol or drug abuse patient.[facility] HospitalIn the event this information is protected by the Federal Confidentiality of Alcohol and Drug Abuse Patient Records regulations: The Federal rules restrict any use of the information to criminally investigate or prosecute any alcohol or drug abuse patient.[facility] HospitalIn the event this information is protected by the Federal Confidentiality of Alcohol and Drug Abuse Patient Records regulations: The Federal rules restrict any use of the information to criminally investigate or prosecute any alcohol or drug abuse patient.[facility] HospitalIn the event this information is protected by the Federal Confidentiality of Alcohol and Drug Abuse Patient Records regulations: The Federal rules restrict any use of the information to criminally investigate or prosecute any alcohol or drug abuse patient.[facility] HospitalIn the event this information is protected by the Federal Confidentiality of Alcohol and Drug Abuse Patient Records regulations: The Federal rules restrict any use of the information to criminally investigate or prosecute any alcohol or drug abuse patient.[facility] HospitalIn the event this information is protected by the Federal Confidentiality of Alcohol and Drug Abuse Patient Records regulations: The Federal rules restrict any use of the information to criminally investigate or prosecute any alcohol or drug abuse patient.[facility] HospitalIn the event this information is protected by the Federal Confidentiality of Alcohol and Drug Abuse Patient Records regulations: The Federal rules restrict any use of the information to criminally investigate or prosecute any alcohol or drug abuse patient.[facility] HospitalIn the event this information is protected by the Federal Confidentiality of Alcohol and Drug Abuse Patient Records regulations: The Federal rules restrict any use of the information to criminally investigate or prosecute any alcohol or drug abuse patient.[facility] HospitalIn the event this information is protected by the Federal Confidentiality of Alcohol and Drug Abuse Patient Records regulations: The Federal rules restrict any use of the information to criminally investigate or prosecute any alcohol or drug abuse patient.[facility] HospitalIn the event this information is protected by the Federal Confidentiality of Alcohol and Drug Abuse Patient Records regulations: The Federal rules restrict any use of the information to criminally investigate or prosecute any alcohol or drug abuse patient.[facility] HospitalIn the event this information is protected by the Federal Confidentiality of Alcohol and Drug Abuse Patient Records regulations: The Federal rules restrict any use of the information to criminally investigate or prosecute any alcohol or drug abuse patient.[facility] HospitalIn the event this information is protected by the Federal Confidentiality of Alcohol and Drug Abuse Patient Records regulations: The Federal rules restrict any use of the information to criminally investigate or prosecute any alcohol or drug abuse patient.[facility] HospitalIn the event this information is protected by the Federal Confidentiality of Alcohol and Drug Abuse Patient Records regulations: The Federal rules restrict any use of the information to criminally investigate or prosecute any alcohol or drug abuse patient.[facility] HospitalIn the event this information is protected by the Federal Confidentiality of Alcohol and Drug Abuse Patient Records regulations: The Federal rules restrict any use of the information to criminally investigate or prosecute any alcohol or drug abuse patient.[facility] HospitalIn the event this information is protected by the Federal Confidentiality of Alcohol and Drug Abuse Patient Records regulations: The Federal rules restrict any use of the information to criminally investigate or prosecute any alcohol or drug abuse patient.[facility] HospitalIn the event this information is protected by the Federal Confidentiality of Alcohol and Drug Abuse Patient Records regulations: The Federal rules restrict any use of the information to criminally investigate or prosecute any alcohol or drug abuse patient.[facility] the event this information is protected by the Federal Confidentiality of Alcohol and Drug Abuse Patient Records regulations: The Federal rules restrict any use of the information to criminally investigate or prosecute any alcohol or drug abuse patient.[facility] HospitalIn the event this information is protected by the Federal Confidentiality of Alcohol and Drug Abuse Patient Records regulations: The Federal rules restrict any use of the information to criminally investigate or prosecute any alcohol or drug abuse patient.[facility] HospitalIn the event this information is protected by the Federal Confidentiality of Alcohol and Drug Abuse Patient Records regulations: The Federal rules restrict any use of the information to criminally investigate or prosecute any alcohol or drug abuse patient.[facility]In the event this information is protected by the Federal Confidentiality of Alcohol and Drug Abuse Patient Records regulations: The Federal rules restrict any use of the information to criminally investigate or prosecute any alcohol or drug abuse patient.[facility] HospitalIn the event this information is protected by the Federal Confidentiality of Alcohol and Drug Abuse Patient Records regulations: The Federal rules restrict any use of the information to criminally investigate or prosecute any alcohol or drug abuse patient.[facility] HospitalIn the event this information is protected by the Federal Confidentiality of Alcohol and Drug Abuse Patient Records regulations: The Federal rules restrict any use of the information to criminally investigate or prosecute any alcohol or drug abuse patient.[facility] HospitalIn the event this information is protected by the Federal Confidentiality of Alcohol and Drug Abuse Patient Records regulations: The Federal rules restrict any use of the information to criminally investigate or prosecute any alcohol or drug abuse patient.[facility] Reason for Visit (unrecogniz ed section and content) Reason Comments Follow Up helevated glucose Reason Onset Date Comments Population Health Navigation Outreach 12/22/2021 [employer] [facility] gaps Reason Comments Orders Reason Comments Imm/Inj Reason Comments Follow Up Reason Comments Cough Cough and congestion x 2 weeks Reason Comments Statin Therapy Reason Comments Refill Request Reason Onset Date Comments Population Health Navigation Outreach 01/16/2023 [employer] [facility] Gaps Reason Comments Orders glucometer Reason Comments 4 month follow up Cough for about two weeks. Moist non-productive.fatigue Reason Comments Orders labs Reason Comments New Primary Care Pharmacy Appt. Reason Onset Date Comments Refill Request 11/12/2023 Reason Onset Date Comments Refill Request 11/15/2023 Reason Comments Medicare Wellness Exam 4 month folllow up Reason Onset Date Comments Refill Request 03/06/2024 Reason Comments Other Aortic Stenosis Reason Comments Cardiac Valve Problem New Patient [facility] Specialty Diagnoses / Procedures [facility] Ref[facility] To Contact Radiology Diagnoses Nonrheumatic aortic valve stenosis Procedures CTA Angiogram TAVR America Davis APRN - WALL MAN [address] [place] [address] Referral ID Status Reason Start Date Expiration Date Visits Re quested Visits Authorized [id number] Closed 03/10/2024 05/09/2024 1 1 Specialty Diagnoses / Procedures [facility] Referred To Contact Diagnoses Nonrheumatic aortic valve stenosis Procedures MA REPLACE AORTIC VALVE PERQ FEMORAL ARTRY APPROACH TRANSCATHETER AORTIC VALVE REPLACEMENT, TRANSTHORACIC ECHOCARDIOGRAM TRANSCATHETER AORTIC VALVE REPLACEMENT, TRANSTHORACIC ECHOCARDIOGRAM Srinivasa Poon MD [address] [place] [address] Referral ID Status Reason Start Date Expiration Date Visits Re quested Visits Authorized [id number] 03/17/2024 1 1 Reason Comments Hospital Follow-up Reason Onset Date Comments Refill Request 04/23/2024 Reason Comments 1 Month Follow Up Specialty Diagnoses / Procedures Referred By Contac t Referred To Contact Cardiology Diagnoses Aortic valve stenosis, etiology of cardiac valve disease unspecified Procedures Transthoracic echocardiogram (TTE) complete with contrast, bubble, strain, and 3D PRN MA ECHO TTHRC R-T 2D W/WOM-MODE COMPL SPEC&COLR D MA TTE W OR WO FOL WCON,DOPPLER FerLindsey, LAB SUPPORT TECH - WALL MAN [address] [address] Referral ID Status Reason Start Date Expiration Date Visits Re quested Visits Authorized [id number] Closed 05/07/2024 07/05/2024 1 1 Reason Onset Date Comments Refill Request 08/18/2024 Reason Comments Lab Orders March appointment Reason Onset Date Comments Refill Request 09/21/2024 Reason Comments Recheck swelling in left arm compared to right No injury that she is aware and no pain Reason Comments Recheck Reason Onset Date Comments Prior Authorization 05/27/2024 Reason Onset Date Comments Population Health Navigation Outreach 01/01/2025 [employer] work[employer] gordon Reason Comments Recheck Oxempic was unable t o tolerate the 0.5 mg as it did cause constipation but at 0.25 mg she is back to normal. Reason Comments Lab Orders Reason Onset Date Comments patient cancelled request 12/10/2024 Reason Comments Medication Problem Refill Request Reason Onset Date Comments Refill Request 02/15/2025 Care Teams (unrecognized sec tion and content) Dining Service Inspector Relationship Specialty Start Date End Date Abby Mcclellan MD [address] [place] [address] PCP - General Internal Medicine 12/05/12 Dining Service Inspector Relationship Specialty Start Date End Date Abby Mcclellan MD [address] [place] [address] PCP - General Internal Medicine 12/05/12 Dining Service Inspector Relationship Specialty Start Date End Date Abby Mcclellan MD [address] [place], [place] [address] PCP - General Internal Medicine 12/05/12 Dining Service Inspector Relationship Specialty Start Date End Date Abby Mcclellan MD [address] [place] [address] PCP - General Internal Medicine 12/05/12 Dining Service Inspector Relationship Specialty Start Date End Date Abby Mcclellan MD [address] [facility] [place] [address] PCP - General Internal Medicine 12/05/12 Dining Service Inspector Relationship Specialty Start Date End Date Abby Mcclellan MD [address] [facility] [place] [address] PCP - General Internal Medicine 12/05/12 Dining Service Inspector Relationship Specialty Start Date End Date Abby Mcclellan MD [address] [facility] [place] [address] PCP - General Internal Medicine 12/05/12 Dining Service Inspector Relationship Specialty Start Date End Date Abby Mcclellan MD [address] [facility] [place] [address] PCP - General Internal Medicine 12/05/12 Dining Service Inspector Relationship Specialty Start Date End Date Abby Mcclellan MD [address] [facility] [place] [address] PCP - General Internal Medicine 12/05/12 Dining Service Inspector Relationship Specialty Start Date End Date Abby Mcclellan MD [address] [facility] [place] [address] PCP - General Internal Medicine 12/05/12 Dining Service Inspector Relationship Specialty Start Date End Date Abby Mcclellan MD [address] [facility] [place] [address] PCP - General Internal Medicine 12/05/12 Dining Service Inspector Relationship Specialty Start Date End Date Abby Mcclellan MD [address] [facility] [place] [address] PCP - General Internal Medicine 12/05/12 Dining Service Inspector Relationship Specialty Start Date End Date Abby Mcclellan MD [address] [facility] [place] [address] PCP - General Internal Medicine 12/05/12 Dining Service Inspector Relationship Specialty Start Date End Date Abby Mcclellan MD [address] [facility] [place] [address] PCP - General Internal Medicine 12/05/12 Dining Service Inspector Relationship Specialty Start Date End Date Abby Mcclellan MD [address] [place] [address] PCP - General Internal Medicine 12/05/12 Dining Service Inspector Relationship Specialty Start Date End Date Abby Mcclellan MD [address] [place] [address] PCP - General Internal Medicine 12/05/12 Dining Service Inspector Relationship Specialty Start Date End Date Abby Mcclellan MD [address] [place] [address] PCP - General Internal Medicine 12/05/12 Dining Service Inspector Relationship Specialty Start Date End Date Abby Mcclellan [address] [facility] [place] [address] PCP - General Internal Medicine 03/10/24 Dining Service Inspector Relationship Specialty Start Date End Date Abby Mcclellan [address] [facility] [place] [address] PCP - General Internal Medicine 03/10/24 Dining Service Inspector Relationship Specialty Start Date End Date Abby Mcclellan [address] [facility] [place] [address] PCP - General Internal Medicine 03/10/24 Dining Service Inspector Relationship Specialty Start Date End Date Abby Mcclellan [address] [facility] [place] [address] PCP - General Internal Medicine 03/10/24 Dining Service Inspector Relationship Specialty Start Date End Date Abby Mcclellan [address] [place] [address] PCP - General Internal Medicine 03/10/24 Dining Service Inspector Relationship Specialty Start Date End Date Abby Mcclellan [address] [place] [address] PCP - General Internal Medicine 03/10/24 Dining Service Inspector Relationship Specialty Start Date End Date Abby Mcclellan MD [address] [place] [address] PCP - General Internal Medicine 12/05/12 Dining Service Inspector Relationship Specialty Start Date End Date Abby Mcclellan MD [address] [place] [address] PCP - General Internal Medicine 12/05/12 Dining Service Inspector Relationship Specialty Start Date End Date Abby Mcclellan [address] [facility] [place] [address] PCP - General Internal Medicine 03/10/24 Dining Service Inspector Relationship Specialty Start Date End Date Abby Mcclellan [address] [facility] [place] [address] PCP - General Internal Medicine 03/10/24 Dining Service Inspector Relationship Specialty Start Date End Date Abby Mcclellan [address] [place] [address] PCP - General Internal Medicine 03/10/24 Dining Service Inspector Relationship Specialty Start Date End Date Abby Mcclellan [address] [place] [address] PCP - General Internal Medicine 03/10/24 Dining Service Inspector Relationship Specialty Start Date End Date Abby Mcclellan MD [address] [place] [address] PCP - General Internal Medicine 12/05/12 Heidy Hawk APRN.SPA HOST [address] [place] [address] Friction Welding Machine Operator Internal Medicine 07/06/24 Kamlesh Acosta APRN.WALL MAN [address] [place] [id number] Friction Welding Machine Operator Internal Medicine 07/06/24 Dining Service Inspector Relationship Specialty Start Date End Date Abby Mcclellan MD [address] [place] [address] PCP - General Internal Medicine 12/05/12 Heidy Hawk, LAB SUPPORT TECH.SPA HOST [address] [place] [address] Friction Welding Machine Operator Internal Medicine 07/06/24 Kamlesh Acosta APRN.WALL MAN [address] [place] [address] Friction Welding Machine Operator Internal Medicine 07/06/24 Dining Service Inspector Relationship Specialty Start Date End Date Abby Mcclellan MD [address] [place] [address] PCP - General Internal Medicine 12/05/12 Heidy Hawk, LAB SUPPORT TECH.SPA HOST [address] [place] [address] Friction Welding Machine Operator Internal Medicine 07/06/24 Kamlesh Acosta LAB SUPPORT TECH.WALL MAN [address] [facility] [place] [address] Friction Welding Machine Operator Internal Medicine 07/06/24 Dining Service Inspector Relationship Specialty Start Date End Date Abby Mcclellan MD [address] [facility] [place] [address] PCP - General Internal Medicine 12/05/12 Heidy Hawk LAB SUPPORT TECH.SPA HOST [address] [facility] [place] [address] Friction Welding Machine Operator Internal Medicine 07/06/24 Kamlesh Acosta APRN.WALL MAN [address] [facility] [place] [address] Friction Welding Machine Operator Internal Medicine 07/06/24 Dining Service Inspector Relationship Specialty Start Date End Date Abby Mcclellan MD [address] [facility] [place] [place] [address] PCP - General Internal Medicine 12/05/12 Heidy Hawk LAB SUPPORT TECH.SPA HOST [address] [facility] [place] [place] [address] Friction Welding Machine Operator Internal Medicine 07/06/24 Kamlesh Acosta LAB SUPPORT TECH.WALL MAN [address] [facility] [place] [address] Friction Welding Machine Operator Internal Medicine 10/20/24 Team Status: Active Member Role Status Dates Dr. Abby Mcclellan MD Family Provider Active Dr. Abby Mcclellan MD Primary Care Provider Active Team Status: Inactive Member Role Status Dates Dr. Abby Mcclellan MD Primary Care Provider Active Start: September 07, 2024 End: September 07, 2024 Dr. Ac Hubbard MD Attending Provider Active S tart: September 07, 2024 End: September 07, 2024 Team Status: Inactive Member Role Status Dates Dr. Abby Mcclellan MD Primary Care Provider Active Start: December 02, 2024 End: December 02, 2024 Dr. Ac Hubbard MD Attending Provider Active S tart: December 02, 2024 End: December 02, 2024 Team Status: Inactive Member Role Status Dates Dr. Abby Mcclellan MD Primary Care Provider Active Start: December 07, 2024 End: December 07, 2024 Dr. Ac Hubbard MD Attending Provider Active S tart: December 07, 2024 End: December 07, 2024 Dining Service Inspector Relationship Specialty Start Date End Date Abby Mcclellan [address] [place] [address] PCP - General Internal Medicine 03/10/24 Dining Service Inspector Relationship Specialty Start Date End Date Abby Mcclellan MD [address] [place], [place] [id number] PCP - General Internal Medicine 12/05/12 Kamlesh Acosta, LAB SUPPORT TECH.WALL MAN [address] [facility] [place] [address] Friction Welding Machine Operator Internal Medicine 10/20/24 Heidy Hawk, MILDRED.SPA HOST [address] [facility] [place] [address] Friction Welding Machine Operator Internal Medicine 12/16/24 Dining Service Inspector Relationship Specialty Start Date End Date Abby Mcclellan MD [address] [facility] [place] [address] PCP - General Internal Medicine 12/05/12 Kamlesh Acosta APRN.WALL MAN [address] [facility] [place] [address] Friction Welding Machine Operator Internal Medicine 10/20/24 Heidy Hawk APRN.SPA HOST [address] [facility] [place] [address] Friction Welding Machine Operator Internal Medicine 12/16/24 Dining Service Inspector Relationship Specialty Start Date End Date Abby Mcclellan MD [address] [facility] [place] [address] PCP - General Internal Medicine 12/05/12 Kamlesh Acosta APRN.WALL MAN [address] [facility] [place] [address] Friction Welding Machine Operator Internal Medicine 10/20/24 Heidy Hawk APRN.SPA HOST [address] [facility] [place] [address] Friction Welding Machine Operator Internal Medicine 12/16/24 Dining Service Inspector Relationship Specialty Start Date End Date Abby Mcclellan MD [address] [facility] [place] [address] PCP - General Internal Medicine 12/05/12 Kamlesh Acosta APRN.WALL MAN [address] [facility] [place] [address] Friction Welding Machine Operator Internal Medicine 10/20/24 Heidy Hawk APRN.SPA HOST [address] [facility] [place] [address] Friction Welding Machine Operator Internal Medicine 12/16/24 Dining Service Inspector Relationship Specialty Start Date End Date Abby Mcclellan MD [address] [place] [address] PCP - General Internal Medicine 12/05/12 Heidy Hawk, LAB SUPPORT TECH.SPA HOST [address] [place] [address] Friction Welding Machine Operator Internal Medicine 07/06/24 12/15/24 Kalmesh Acosta LAB SUPPORT TECH.WALL MAN [address] [place], [place] [address] Friction Welding Machine Operator Internal Medicine 10/20/24 Heidy Hawk, LAB SUPPORT TECH.SPA HOST [address] [place] [address] Friction Welding Machine Operator Internal Medicine 12/16/24 Team Status: Active Member Role/Relationship Status Dates Dr. Abby Mcclellan MD Primary Care Provider Active Team Status: Inactive Member Role/Relationship Status Dates Dr. Abby Mcclellan MD Primary Care Provider Active Start: December 02, 2024 End: December 02, 2024 Dr. Ac Hubbard MD Attending Provider Active S tart: December 02, 2024 End: December 02, 2024 Team Status: Inactive Member Role/Relationship Status Dates Dr. Abby Mcclellan MD Primary Care Provider Active Start: December 07, 2024 End: December 07, 2024 Dr. Ac Hubbard MD Attending Provider Active S tart: December 07, 2024 End: December 07, 2024 Team Status: Active Member Role/Relationship Status Dates Dr. Abby Mcclellan MD Primary Care Provider Active Start: February 08, 2025 Dr. Abby Mcclellan MD Referring Provider Active Start: February 08, 2025 Hilary Jackman Attending Provider Active Start: Preeti mead 2024 Team Status: Inactive Member Role/Relationship Status Dates Dr. Abby Mcclellan MD Primary Care Provider Active Start: February 08, 2025 End: February 08, 2025 Dr. Abby Mcclellan MD Referring Provider Active Start: February 08, 2025 End: February 08, 2025 LANI Cartagena Attending Provider Active St art: February 08, 2025 End: February 08, 2025 Team Status: Inactive Member Role/Relationship Status Dates Dr. Abby Mcclellan MD Primary Care Provider Active Start: February 08, 2025 End: February 08, 2025 Dr. Abby Mcclellan MD Referring Provider Active Start: February 08, 2025 End: February 08, 2025 Hilary Jackman Attending Provider Active Start: 2024 End: February 08, 2025 Team Status: Inactive Member Role/Relationship Status Dates Dr. Abby Mcclellan MD Primary Care Provider Active Start: February 08, 2025 End: February 08, 2025 Dr. Ac Hubbard MD Attending Provider Active S tart: February 08, 2025 End: February 08, 2025 Team Status: Inactive Member Role/Relationship Status Dates Dr. Abby Mcclellan MD Primary Care Provider Active Start: February 08, 2025 End: February 08, 2025 Dr. Abby Mcclellan MD Referring Provider Active Start: February 08, 2025 End: February 08, 2025 Hilary Jackman Attending Provider Active Start: 2024 End: February 08, 2025 Team Status: Inactive Member Role/Relationship Status Dates Dr. Abby Mcclellan MD Primary Care Provider Active Start: February 08, 2025 End: February 08, 2025 Dr. Abby Mcclellan MD Referring Provider Active Start: February 08, 2025 End: February 08, 2025 LANI Cartagena Attending Provider Active St art: February 08, 2025 End: February 08, 2025 Dining Service Inspector Relationship Specialty Start Date End Date Abby Mcclellan MD [address] [place] [address] PCP - General Internal Medicine 12/05/12 Kamlesh Acosta APRN.WALL MAN [address] [place], [place] [address] [facility] Internal Medicine 10/20/24 Heidy Hawk APRN.SPA HOST [address] [place], [place] [address] [facility] Internal Medicine 12/16/24 Scheduled Active and Recently Administ ered Medications (unrecognized section and content) Medication Order 04/06/2024 04/07/2024 04/08/2024 aspirin EC tablet 81 mg 81 mg, Oral, Daily, First dose on Sat04/07/24 at 0900, Do not crush, chew, or split. 0933 (Given - Provider: Shasta Badillo RN) 0807 (Given - Provider: Alida Pina RN) ceFAZolin in dextrose 4% (Ancef) IVPB 2,000 mg (COMPLETED) 2,000 mg, IntraVENous, Administer over 30 Minutes, Once, On Sat04/06/24 at 0915, For 1 dose, Preprocedure, Administer within 1 hour prior to incision. Recommend to repeat in 3-4 hours after initial dose if still intra-op. premix bag, Suspected Indication (Select all that apply): Surgical Prophylaxis 1158 (Given - Provider: Al Araujo APRN - PROCESS DEVELOPMENT CHEMIST) glipiZIDE (Glucotrol) tablet 10 mg 10 mg, Oral, Daily before breakfast, First dose on Sat04/07/24 at 0900, Substituted for glimepiride (Amaryl). 0933 (Given - Provider: Shasta Badillo RN) 0630 (Given - Provider: Rhonda Kay, STORM) insulin glargine (Lantus) injection 10 Units (COMPLETED) 10 Units, SubCUTAneous, Once, On Sat04/07/24 at 0000, For 1 dose 2356 (Given - Provider: hRonda Kay, STORM - Comment: [id number]) Insulin Lispro (Humalog) injection 0-12 Units (CANCELED)(Linked Group 1) 0-12 Units, SubCUTAneous, 3 times daily with meals, First dose on Sat04/06/24 at 1700, Medium Dose Correction Algorithm Glucose: Dose: LESS than 139 No Insulin 140-199 2 Unit 200-249 4 Units 250-299 6 Units 300-349 8 Units 350-400 10 Units Above 400 12 Units 1642 (Given - Provider: Irma Shane, STORM) 0800 (Not Given - Provider: Shasta Badillo RN - Reason: Other - Comment: discontinued) Insulin Lispro (Humalog) injection 6 Units (COMPLETED) 6 Units, SubCUTAneous, Once, On Sat04/06/24 at 0930, For 1 dose, Preprocedure 0932 (Given - Provider: Tamela Lai, STORM) losartan (Cozaar) tablet 50 mg 50 mg, Oral, Daily, First dose on Sat04/08/24 at 0900 0802 (Given - Provider: Alida Pina RN) metoprolol succinate XL (Toprol-XL) 24 hr tablet 25 mg 25 mg, Oral, Daily, First dose on Sat04/07/24 at 0900, Do not crush or chew. 0933 (Given - Provider: Shasta Badillo RN)1020 (Held by provider - Provider: Lindsey Tolentino APRN - WALL MAN - Reason: Other) 0728 (Unheld by provider - Provider: Jose Herndon MD)0801 (Given - Provider: Alida Pina RN) mupirocin (Bactroban) 2 % ointment 1 Application 1 Application, Nasal, 2 times daily, First dose on Sat04/06/24 at 1430, For 5 days, Recovery & On Unit, Indications: MRSA Nasal Decolonization 164 (Given - Provider: Irma Shane, STORM)2107 (Given - Provider: Rhonda Kay, STORM) 0933 (Given - Provider: Shasta Badillo RN)2049 (Given - Provider: Rhonda Kay RN) 0808 (Given - Provider: Alida Pina RN) pantoprazole (ProtoNix) 40 mg in sodium chloride (PF) 0.9 % 10 mL injection(Linked Group 2) 40 mg, IntraVENous, Administer over 2 Minutes, Daily before breakfast, First dose on Sat04/08/24 at 0600, Give only if unable to tolerate po. 0630 (See Alternative - Provider: Rhonda Kay, STORM) pantoprazole (ProtoNix) EC tablet 40 mg(Linked Group 2) 40 mg, Oral, Daily before breakfast, First dose on Sat04/08/24 at 0600, Do not crush, chew, or split. 0630 (Given - Provider: Rhonda Kay, STORM) potassium chloride CR (Klor-Con M10) ER tablet 20 mEq (COMPLETED) 20 mEq, Oral, Once, On Sat04/06/24 at 1630, For 1 dose, Best given with food and plenty of water to minimize gastric irritation. Do not crush or chew. 1642 (Given - Provider: Irma Shane, STORM) sodium chloride 0.9% (NS) flush 10 mL (CANCELED) 10 mL, IntraVENous, Every 12 hours scheduled (2 times per day), First dose on Sat04/06/24 at 2100, Recovery (only) 2108 (Given - Provider: Rhonda Kay RN) 0900 (Given - Provider: Shasta Badillo, STORM) vancomycin (Vancocin) 1,000 mg in sodium chloride 0.9 % 250 mL IVPB (COMPLETED) 1,000 mg, IntraVENous, at 166.7 mL/hr, Administer over 90 Minutes, Once, On Sat04/07/24 at 1215, For 1 dose, Preprocedure, Please send to EP lab [facility] bag, Suspected Indication (Select all that apply): Surgical Prophylaxis 1238 (New Bag - Provider: Shivani Diaz RN)1350 (Stopped - Provider: Shasta Badillo RN - Comment: Not infusing on return to U) Continuous Medication Order 04/06/2024 04/07/2024 04/08/2024 sodium chloride 0.9 % infusion (CANCELED) 50 mL/hr, IntraVENous, Continuous, Starting on Sat04/06/24 at 0915, Preprocedure, Upon admission to sameday - please start iv if patient does not have iv access. 0943 (New Bag - Provider: Tamela Lai RN)1148 (Continued by Anesthesia - Provider: Al Araujo APRN - PROCESS DEVELOPMENT CHEMIST)1309 (Anesthesia Volume Adjustment - Provider: Al Araujo, LAB SUPPORT TECH - PROCESS DEVELOPMENT CHEMIST) 6620 (Stopped - Provider: Shasta Badillo RN - Comment: Not infusing on assessment) PRN Medication Order 04/06/2024 04/07/2024 04/08/2024 acetaminophen (Tylenol) tablet 650 mg 650 mg, Oral, Every 4 hours PRN, mild pain (1-3), Fever > 100.5 F (38 C), Starting on Sat04/06/24 at 1419, Recovery & On Unit, Maximum dose of acetaminophen is 4000 mg from all sources in 24 hours. bupivacaine PF (Marcaine) 0.5 % injection (CANCELED) As needed, Starting on Sat04/07/24 at 1246, Intraprocedure 1246 (Given - Provider: Eric Okeefe MD)1247 (Given - Provider: Eric Okeefe MD) dextrose 5 % infusion 100 mL/hr, IntraVENous, PRN, Blood sugar less than 70mg/dL, Starting on Sat04/06/24 at 1422, Start infusion following administration of dextrose 50% or glucagon. dextrose 50 % solution 12.5 g 12.5 g, IntraVENous, PRN, low blood sugar, Blood glucose less than 70 mg/dL and patient NOT ALERT or NPO., Starting on Sat04/06/24 at 1422, If patient does not respond within 5 minutes, repeat dose x1. Start D5W at 100 mL/hour until ordering provider can be reached. Repeat blood glucose in 15 minutes. If blood glucose is less than 70 mg/dL, repeat treatment and recheck blood glucose in 15 minutes x2. If using Glucostabilizer, dose as instructed per system. diphenhydrAMINE (BENADryl) injection (CANCELED) IntraVENous, As needed, Starting on Sat04/07/24 at 1245, Intraprocedure 1245 (Given - Provider: Shivani Diaz RN) fentaNYL (Sublimaze) injection (CANCELED) IntraVENous, As needed, Starting on Sat04/07/24 at 1238, Intraprocedure 1238 (Given - Provider: Shivani Diaz RN) gentamicin (Garamycin) 80 mg in sodium chloride 0.9 % 500 mL irrigation (CANCELED) Irrigation, As needed, Starting on Sat04/07/24 at 1328, Intraprocedure 1328 (Given - Provider: Shivani Diaz RN) glucagon (human recombinant) injection 1 mg 1 mg, IntraMUSCular, PRN, low blood sugar, Blood glucose less than 70 mg/dL and patient NOT ALERT or NPO and does not have IV access., Starting on Sat04/06/24 at 1422, After administration, attempt intravenous access and start D5W at 100 mL/hr. Repeat blood glucose in 15 minutes x2 and notify provider. glucose oral gel 15 g 15 g, Oral, As needed, low blood sugar, Starting on Sat04/06/24 at 1422, If blood glucose less than 50 mg/dL and patient ALERT and NOT NPO, give 2 tubes glucose gel. If blood glucose less than 70 mg/dL and patient ALERT and NOT NPO, give 1 tube glucose gel. Repeat blood glucose in 15 minutes. If blood glucose is less than 70 mg/dL, repeat treatment and recheck blood glucose in 15 minutes x2 and notify provider. heparin 4,000 Units in sodium chloride 0.9 % 4,000 mL OR irrigation (CANCELED) As needed, Starting on Sat04/06/24 at 1145, Intraprocedure 1145 (Given - Provider: Srinivasa Poon MD) iodixanol (VISIPaque) 320 MG/ML injection (COMPLETED) Continuous PRN, Starting on Sat04/06/24 at 1257, Intraprocedure 1257 (New Bag - Provider: Srinivasa Poon MD) 0700 (Stopped - Provider: Shasta Badillo RN - Comment: Given during procedure) lidocaine (Xylocaine) 2 % injection (CANCELED) Infiltration, As needed, Starting on Sat04/07/24 at 1246, Intraprocedure 1246 (Given - Provider: Eric Okeefe MD)1247 (Given - Provider: Shivani Diaz RN) midazolam (Versed) injection (CANCELED) IntraVENous, As needed, Starting on Sat04/07/24 at 1238, Intraprocedure 1238 (Given - Provider: Shivani Diaz RN) No Frequency Medication Order 04/06/2024 04/07/2024 04/08/2024 atropine 1 MG/10ML syringe - Pyxis ADS Override Pull (COMPLETED) Starting on Sat04/07/24 at 0947, For 1 dose, Shavonne Sutherland: cabinet override 1057 (Given - Provider: Jayson Badillo RN) Linked Groups Order Group 1: Insulin Lispro (Humalog) injection 0-12 Units (CANCELED)Jump to med 0-12 Units, SubCUTAneous, 3 times daily with meals, First dose on Sat04/06/24 at 1700, Medium Dose Correction Algorithm Glucose: Dose: LESS than 139 No Insulin 140-199 2 Unit 200-249 4 Units 250-299 6 Units 300-349 8 Units 350-400 10 Units Above 400 12 Units And Insulin Lispro (Humalog) injection 0-12 Units (CANCELED) 0-12 Units, SubCUTAneous, Nightly, First dose on Sat04/06/24 at 2100, If continuous tube feedings/TPN/NPO, give correction dose based on result, no reduction in dose. If eating or bolus tube feeding: Medium Dose Correction Algorithm Glucose: Dose: LESS than 139 No Insulin 140-199 2 Unit 200-249 4 Units 250-299 6 Units 300-349 8 Units 350-400 10 Units Above 400 12 Units Group 2: pantoprazole (ProtoNix) EC tablet 40 mgJump to med 40 mg, Oral, Daily before breakfast, First dose on Sat04/08/24 at 0600, Do not crush, chew, or split. Or pantoprazole (ProtoNix) 40 mg in sodium chloride (PF) 0.9 % 10 mL injectionJump to med 40 mg, IntraVENous, Administer over 2 Minutes, Daily before breakfast, First dose on Sat04/08/24 at 0600, Give only if unable to tolerate po. INFORMATION SOURCE (unrecogn ized section and content) DATE CREATED AUTHOR 06/15/2024 [facility] DATE CREATED AUTHOR AUTHOR'S ORGANIZ ATION 01/13/2025 [facility] DATE CREATED AUTHOR AUTHOR'S ORGANIZ ATION 02/18/2025 [facility] FOR RECORDS PERTAINING TO PATIENTS WHO ARE OR HAVE BEEN ENROLLED IN A CHEMICAL DEPENDENCY/SUBSTANCEABUSE PROGRAM, SOME INFORMATION MAY BE OMITTED. This clinical summary was aggregated from multiple sources. Caution should be exercised in using it in the provision of clinical care. This summary normalizes information from multiple sources, and as a consequence, information in this document may materially change the coding, format and clinical context of patient data. In addition, data may be omitted in some cases. CLINICAL DECISIONS SHOULD BE BASED ON THE PRIMARY CLINICAL RECORDS. [facility]. provides no warranty or guarantee of the accuracy or completeness of information in this document.
--- NOTE | 2025-02-25 22:19 | CT_ITS ---
PROCEDURE: CT CHEST, ABD, PEL W/CONTRAST 02/25/2025 REASON FOR EXAM: FEVER UNKNOWN CAUSE TECHNIQUE: Chest, abdomen and pelvis CT with intravenous contrast. Coronal and Sagittal reconstruction series were provided. One or more dose reduction techniques were used (e.g., Automated exposure control, adjustment of the mA and/or kV according to patient size, use of iterative reconstruction technique. PATIENT PREPARATION: Per protocol ORAL CONTRAST TYPE: None. AMOUNT: mL CONTRAST: Isovue 300 VOLUME: 88mL Gauge IV RADIATION DOSE SUMMARY: CTDlvol: 66 mGy DLP: 2188 mGycm COMPARISON: Chest x-ray 02/25/2025 FINDINGS: Unremarkable base of neck and axilla. Normal esophagus. Normal heart size. Status post AVR. No acute vascular pathology. Thoracic spine scoliosis and degeneration. Left-sided cardiac device. No acute chest wall findings. Central airways are patent. Under aerated lungs. No consolidation, effusion, or pneumothorax. Small gallstone. Unremarkable liver, pancreas,, kidneys. Bilateral small adrenal gland nodules favoring benign etiology. No hydronephrosis. Normal bladder. Status post hysterectomy. No retroperitoneal or pelvic adenopathy. Nondistended bowel. No signs of appendicitis. No acute large bowel findings. Status post right THR. Lumbar spine degeneration. No acute abdominal wall findings. CT/CT Chest, Abd, Pel w/Contrast IMPRESSION: No acute chest abdomen or pelvic pathology. Reading Location: [place] [address]
[2025-02-25] MEDS: Piperacil/Tazobactam 4.5 GM in 0.9% Normal Saline (100mL MB+) 100 ML IV (23:17)
[2025-02-25] MEDS: Vancomycin HCl 2,000 MG in 0.9% Normal Saline (500mL Bag) 500 ML 250 MG IV (23:57)
[2025-02-26] VITALS (48 sets, daily range): BP systolic 82–176; BP diastolic 48–134; PULSE 78–188; RESP 21–39; TEMP 37.3–39.4; O2SAT 95–100; BMI 47.5
--- NOTE | 2025-02-26 00:01 | PCM.HP.STD ---
[facility] - General General Date of Admission: 02/26/25 Date of Service: 02/26/25 Chief Complaint: Fever and Confusion. HPI Narrative LITO REGALADO, is a 74 F with a past medical history of essential hypertension on losartan and metoprolol, hyperlipidemia; with intolerance to atorvastatin (rash), morbid (class III) obesity; with BMI of 46.5 this admission, DM-2; of unknown control on glimepiride twice daily and metformin twice daily, history of DKA, paroxysmal atrial fibrillation; on apixaban twice daily, history of intermittent complete heart block; s/p PPM (03/2024), history of RBBB, history of SVT, history of nonrheumatic aortic valve stenosis with aortic valve calcification; s/p TAVR (03/2024), history of COVID-19 (2019), history of total hysterectomy, history of appendectomy, history of diverticulitis and OA; s/p Right THR (2019) and bilateral TKR's who presents to [facility] complaining of fever and confusion. Mrs. Regalado is not a fully-reliable historian at this time so information was gathered from chart, medical staff and computer. According to the records she was driving during the day of February 25, 2025 when her family noted she was confused causing them to activate EMS. The family had noted memory lapses but she has not no formal previous diagnosis of dementia. In the ER she was noted to have a fever of 103 ?F present on admission in addition to Leukocytosis of 11.7 K, Lactic acidosis of 2.2 mmol/L and persistent tachycardia of ~120 bpm all present on admission consistent with suspected Sepsis of unknown origin complicated by clinical evidence of Metabolic Encephalopathy possibly due at least in part to Adverse Drug Reaction to metformin with CT scan of the chest abdomen pelvis with IV contrast revealing no acute chest, abdomen or pelvic pathology and CXR that revealed no acute chest findings and head CT without contrast that revealed no acute intracranial findings. She was also noted to have moderate thrombocytopenia of 115 K present on admission and Hyperglycemia of 279 mg/dL present on admission with ABG and beta-hydroxybutyrate pending at this time. Her viral respiratory panel is still pending at this time. She was then admitted to the ICU for ongoing care under the Sepsis protocol for [facility] that is expected to extend beyond 2 midnights. [facility] Medical History Intermittent complete heart block Presence of cardiac pacemaker Obesity Diabetes COVID-19 virus detected (05/19/20) Atrial fibrillation with rapid ventricular response (08/2015) Right bundle branch block (RBBB) Type 2 diabetes mellitus Nonrheumatic aortic (valve) stenosis Essential (primary) hypertension Microcalcification of left breast on mammogram Abnormal mammogram of left breast Sepsis Diverticulitis Encephalopathy DKA (diabetic ketoacidoses) Arthritis Aortic valve calcification Diabetes type 2, uncontrolled Morbid obesity Home Medications ?Medication ?Instructions ?Recorded ?Last Taken ?Type calcium carbonate (Calcium 500) 500 mg PO DAILY supplement 01/05/19 Unknown History glucosamine HCl 1,500 mg tablet 1,500 mg PO DAILY 04/26/20 Unknown History metoprolol succinate 25 mg 50 mg PO DAILY bp 06/01/24 Unknown History tablet,extended release 24 hr glimepiride 2 mg tablet 4 mg PO BID 06/02/24 Unknown History metformin 500 mg tablet 1,000 mg PO BID diabetes 06/02/24 Unknown History apixaban 5 mg tablet (Eliquis) 5 mg PO BID #180 tabs 02/08/25 Unknown Rx losartan 50 mg tablet 50 mg PO QDAY 02/08/25 Unknown History Allergy/AdvReac Type Severity Reaction Status Date / Time atorvastatin (From Lipitor) Allergy Intermediate Rash Verified 02/08/25 10:33 Family History Father COPD (chronic obstructive pulmonary disease) CAD (coronary artery disease) Mother Cancer Breast cancer Surgical History History of right hip replacement (12/02/19) history left breast stereotactic biopsy (02/10/18) History of total right knee replacement (TKR) History of total left knee replacement (01/31/09) History of total hysterectomy History of appendectomy Social History Smoking Status: Never smoker second hand exposure: No alcohol intake: never substance use type: does not use caffeine: No what type of physical activity do you participate in: none frequency: does not exercise seatbelt use: always ROS ROS Narrative Full review of systems was not possible due to patient's confusion. Vital Signs Vital Signs Vital Signs: 02/25/25 20:42 02/25/25 20:56 02/25/25 21:00 Temperature 103 F H Temperature Source Axillary Pulse Rate 129 H 128 H 131 H Respiratory Rate 30 H 23 H 27 H Blood Pressure 121/73 H Blood Pressure Mean 89 Pulse Ox 98 Oxygen Delivery Method Room Air 02/25/25 21:08 02/25/25 21:15 02/25/25 21:30 Temperature Temperature Source Pulse Rate 125 H 128 H Respiratory Rate 36 H 30 H Blood Pressure 149/80 H Blood Pressure Mean 103 Pulse Ox Oxygen Delivery Method Room Air 02/25/25 21:32 02/25/25 21:32 02/25/25 21:45 Temperature Temperature Source Pulse Rate 132 H 128 H Respiratory Rate 25 H 37 H Blood Pressure 143/131 H 143/131 H 149/128 H Blood Pressure Mean 137 137 137 Pulse Ox Oxygen Delivery Method 02/25/25 21:56 02/25/25 22:00 02/25/25 22:47 Temperature 103.2 F H 102.7 F H Temperature Source Axillary Oral Pulse Rate 124 H 123 H 115 H Respiratory Rate 27 H 28 H 26 H Blood Pressure 139/66 H 119/65 94/56 L Blood Pressure Mean 90 83 68 Pulse Ox 99 100 97 Oxygen Delivery Method Room Air Room Air Room Air 02/25/25 23:00 02/25/25 23:29 02/25/25 23:30 Temperature 101.1 F H 101.1 F H Temperature Source Axillary Oral Pulse Rate 119 H 118 H 127 H Respiratory Rate 28 H 29 H 23 H Blood Pressure 135/84 H 135/87 H 131/62 H Blood Pressure Mean 101 103 85 Pulse Ox 97 97 97 Oxygen Delivery Method Room Air Room Air Room Air 02/25/25 23:31 Temperature 101.1 F H Temperature Source Pulse Rate 119 H Respiratory Rate 29 H Blood Pressure 138/90 H Blood Pressure Mean 106 Pulse Ox 97 Oxygen Delivery Method Weight Weight: 238 lb 1.588 oz Body Mass Index (BMI) 46.5 Physical Exam Const Constitutional Narrative: Patient is confused and lethargic but arousable. Orientation / Consciousness: confused and lethargic HEENT normocephalic, head/scalp atraumatic, hearing grossly normal bilaterally and moist oral mucous membranes Eyes PERRL, EOMs intact bilaterally and conjunctivae normal Neck no lymphadenopathy, supple and no JVD Resp normal respiratory effort, no retractions, no use of accessory muscles and clear to auscultation bilaterally Cardio regular rate and regular rhythm Cardio Narrative: Tachycardia at ~130 bpm noted. GI normal to inspection, nondistended, normoactive bowel sounds, soft to palpation, non-tender and non-distended Extremity normal to inspection, full ROM and no clubbing, cyanosis or edema Skin Skin Narrative: Patient has evidence of rash, abscess, wounds or jaundice. Neuro Neuro Narrative: Patient cannot tell me her name, time or place. Psych Psych Narrative: Patient is lethargic and confused but arousable. Results Medical Records Data Attestation: I reviewed the patient's medical records Lab / Micro Data Attestation: I reviewed the patient's lab results. 02/26/25 04:51 02/25/25 20:30 Labs: Laboratory Results - last 24 hr 02/25/25 20:30: WBC 11.7 H, RBC 4.59, Hgb 14.3, Hct 42.3, MCV 92.2, MCH 31.2, MCHC 33.8, RDW Std Deviation 44.8 H, RDW Coeff of Yovany 13.2, Plt Count 115 L, MPV 11.4, Immature Gran % (Auto) 0.600, Neut % (Auto) 89.7 H, Lymph % (Auto) 5.8 L, [place] % (Auto) 3.0, Eos % (Auto) 0.0, Baso % (Auto) 0.9, Absolute Neuts (auto) 10.5 H, Absolute Lymphs (auto) 0.68 L, Nucleated RBC % 0, PT 15.5 H, INR 1.2, APTT 30.0, Sodium 134, Potassium 4.5, Chloride 99, Carbon Dioxide 22.3, Anion Gap 13, BUN 22 H, Creatinine 1.06, Estim Creat Clear Calc 50.25, Est GFR (MDRD) Non-Af 54 L, BUN/Creatinine Ratio 20.8 H, Glucose 279 H, Calcium 9.6, Total Bilirubin 1.33 H, AST 21, ALT 27, Alkaline Phosphatase 65, Total Protein 6.7, Albumin 4.1, Globulin 2.6, Albumin/Globulin Ratio 1.5 02/25/25 20:50: Lactic Acid 2.2 H* 02/25/25 21:10: Urine Color Yellow, Urine Clarity Sl. Cloudy, Urine pH 7.0, Ur Specific [place] 1.005, Urine Protein 30 H, Urine Glucose (UA) 1000 H, Urine Ketones Negative, Urine Occult Blood 25 H, Urine Nitrite Negative, Urine Bilirubin Negative, Urine Urobilinogen Normal, Ur Leukocyte Esterase Negative, Urine RBC 0-5 SEEN, Urine WBC 0-5 SEEN, Ur Squamous Epith Cells 0-5 SEEN, Urine Bacteria 0 SEEN, Urine Mucus 0 SEEN Micro: Microbiology 02/25/25 21:11 Mucosa - Nose SARS-CoV-2, Influenza & RSV (PCR) - Final Imaging Radiology Impression Brain CT 02/25/25 21:45 IMPRESSION: No acute intracranial findings Reading Location: [place] [address] Chest X-Ray 02/25/25 21:45 IMPRESSION: No acute chest findings. Reading Location: [facility] Chest/Abdomen/Pelvis CT 02/25/25 22:19 IMPRESSION: No acute chest abdomen or pelvic pathology. Reading Location: [place] [address] Assessment & Plan Assessment/Plan (1) Sepsis due to undetermined organism: (2) Fever: QUALIFIERS: Fever type: unspecified Qualified Code(s): R50.9 - Fever, unspecified (3) Lactic acidosis: (4) Tachycardia: (5) Metabolic encephalopathy: (6) Adverse drug reaction: QUALIFIERS: Encounter type: initial encounter Qualified Code(s): T50.905A - Adverse effect of unspecified drugs, medicaments and biological substances, initial encounter (7) Hyperglycemia due to type 2 diabetes mellitus: QUALIFIERS: Diabetes mellitus penitentiary insulin use: without buttermaker continuous churn use Qualified Code(s): E11.65 - Type 2 diabetes mellitus with hyperglycemia (8) Morbid obesity with BMI of 45.0-49.9, adult: (9) Thrombocytopenia: (10) Paroxysmal atrial fibrillation: (11) Chronic anticoagulation: PLAN: Plan 1. Fever of 103 ?F present on admission in addition to Leukocytosis of 11.7 K, Lactic acidosis of 2.2 mmol/L and persistent tachycardia of ~120 bpm all present on admission consistent with suspected Sepsis of unknown origin - Admit to ICU for treatment under the sepsis protocol. Continue empiric IV piperacillin-tazobactam and IV vancomycin begun in ER and await culture and sensitivity data. Serialize lactate. Keep n.p.o. for now and give pantoprazole 40 mg IV daily for GI prophylaxis. Give ondansetron IV as needed for nausea and vomiting. Give acetaminophen as needed for pain or fever. 2. Metabolic Encephalopathy due to #1 - Check TSH, B12, Folate, HgbA1c, CAROLA and UDS to evaluate for potentially reversible causes of confusion. We will minimize potentially PROFESSOR OF SURGERY-active medications in an effort to allow sensorium to clear. Otherwise, continue conservative treatment and monitor for improvement. 3. Suspected Adverse Drug Reaction to metformin contributing to or causing #1 & #2 - Hold metformin and monitor for improvement. 4. DM-2; of unknown control on glimepiride twice daily and metformin twice daily with Hyperglycemia of 279 mg/dL present on admission complicating #1 - #3 - Keep NPO as outlined in #1. Check FSBS q. 6 hours plus lowest-intensity SSI. Check HgbA1c to objectively evaluate quality of diabetic control. Check beta-hydroxybutyrate and ABG to evaluate for evidence of DKA with a known history of DKA. 5. Morbid (class III) obesity; with BMI of 46.5 this admission adding to the burden of disease outlined from #1 - #4 - Weight loss will be recommended when sensorium clears. Check TSH. This complicates her case and may hamper recovery. 6. Paroxysmal atrial fibrillation; on apixaban twice daily - Hold apixaban for now and cover with full-dose enoxaparin with patient unable to safely tolerate oral intake at this time. 7. Moderate Thrombocytopenia of 115K present on admission - Check CBC daily to follow trend. 8. Essential hypertension on losartan and metoprolol - Hold scheduled oral antihypertensives at this time in light of #1. 9. Hyperlipidemia; with intolerance to atorvastatin (rash) - Noted. Check Lipid Profile. 10. History of intermittent complete heart block; s/p PPM (03/2024) - Noted. 11. History of RBBB - Noted. 12. History of SVT - Noted. 13. History of nonrheumatic aortic valve stenosis with aortic valve calcification; s/p TAVR (03/2024) - Stable. 14. History of COVID-19 (2019) - Noted. 15. History of total hysterectomy - Noted for the sake of completeness. 16. History of appendectomy - Noted. 17. History of diverticulitis - Noted with no signs of recurrence on CT this admission. 18. OA; s/p Right THR (2019) and bilateral TKR's - Stable. 19. DVT/GI prophylaxis - Enoxaparin 100 mg sq x 1 plus SCD's. Pantoprazole 40 mg IV daily. Hold further enoxaparin if platelet count drops below 100K. Total time: Approximately (but not less than) 75 minutes. Update: Patient developed atrial fibrillation; with rapid ventricular response a few hours after arrival to ICU which was initially treated with digoxin 0.5 mg IV once. Patient then slowed down transiently and then she sped up to 130 bpm with a systolic blood pressure of ~80 mmHg therefore IV amiodarone infusion was ordered in addition to Levophed drip to keep MAP greater than 65 mmHg. [employer] LEADER was updated with plan. Sepsis Attestation Sepsis Alert: Yes Sepsis Attestation: Agree w/Sepsis Date exam was performed: 02/26/25 Time exam was performed: 00:45 Possible Source of Sepsis: Unknown Sepsis Organ Dysfunction Criteria Present: Lactic Acid > 2 mmol/L and New/Unexplained change in mental status Supportive Findings: In the ER she was noted to have a fever of 103 ?F present on admission in addition to Leukocytosis of 11.7 K, Lactic acidosis of 2.2 mmol/L and persistent tachycardia of ~120 bpm all present on admission consistent with suspected Sepsis of unknown origin complicated by clinical evidence of Metabolic Encephalopathy possibly due at least in part to Adverse Drug Reaction to metformin. Fluid Resuscitation Fluid resuscitation indicated?: Yes Fluid Resuscitation ordered: 30 ml/kg fluid bolus ordered Amount of fluid ordered: 2 Sepsis Note Date exam was performed: 02/26/25 Time exam was performed: 04:45 Sepsis Attestation: Sepsis re-evaluation was performed Response to fluids: Fluid responsive hypotension Charges/Coding Visit Charges Inpatient E&M: 76456 Init Hosp L3
--- OUTSIDE RECORDS SUMMARY | 2025-02-26 00:20 | XMS RPT_ITS | CCD ---
Author Organization [facility] Care Team Providers Care Drip Pumper Name Role Phone Dr. Abby Mcclellan Primary [...] Unavailable TALAMPAS, ABBY, Primary Care Unavailable Hawk NEWSPAPER EDITOR MANAGING.RIP/MOULD OPERATOR, Heidy Unavailable Dave NEWSPAPER EDITOR MANAGING.PURCHASING AND CLAIMS SUPERVISOR, Kamlesh Unavailable Dave NEWSPAPER EDITOR MANAGING.PURCHASING AND CLAIMS SUPERVISOR, Kamlesh Gely Unavailable Dave NEWSPAPER EDITOR MANAGING.PURCHASING AND CLAIMS SUPERVISOR, Kamlesh Unavailable Dave NEWSPAPER EDITOR MANAGING.PURCHASING AND CLAIMS SUPERVISOR, Kamlesh Unavailable Vy RAZA, Dr. Abby Edwards Primary Care Provider [phone] Haydee RAZA, Dr. Shen Attending Provider Hawk NEWSPAPER EDITOR MANAGING.RIP/MOULD OPERATOR, Heidy Unavailable DAVE, KAMLESH Attending Unavailable TALAMPAS, [...] TALAMPAS, ABBY D Primary Care Unavailable Hawk NEWSPAPER EDITOR MANAGING.RIP/MOULD OPERATOR, Heidy Unavailable Dr. Abby Mcclellan MD Primary Care Provider Dr. Ac Hubbard MD Attending Provider Dr. Abby Mcclellan MD Referring Provider Hilary Jackman Attending Provider Unavailable Gm Carter Attending Provider Ac Hubbard Attending Unavailable Talampas, Abby D Primary Care Unavailable Haydee, Southold Attending Unavailable Talampas, Abby D Primary Care Unavailable Haydee, Ac Attending Unavailable Talampas, Abby D Primary Care Unavailable Talampas, Abby D Primary Care Unavailable Haydee, Ac Attending Unavailable Talampas, Abby D Primary Care Unavailable Haydee, Southold Attending Unavailable Talampas, Abby D Referring Unavailable Talampas, Abby D Primary Care Unavailable Haydee, Southold Attending Unavailable Talampas, Abby D Referring Unavailable [...] sources) atorvastatin; Translations: [ATORVASTATIN] Drug Allergy 06-27-2016 [facility] Work Phone: (17 sources) atorvastatin Drug Allergy 06-27-2016 [facility] (1 source) atorvastatin Drug Allergy 02-08-2025 [facility] Repository Medications Current Medications Medication Drug Class(es) [...] Start: 06-02-2024 take 2 tablets by mo [facility] twice daily Glimepiride 2 mg tablet [...] on above: Take one(1) tablet d aily. Ghvvqvmhazq-Jatopnyos-J it C-Mn (GLUCOSAMINE 1500 COMPLEX PO) (17 [...] directed. docusate sodium 50 mg / sennosides, long term 8.6 mg oral tablet (7 sources) Start: [...] dose, Preprocedure, Please send to EP lab [facility] bag, Suspected Indication (Select all that apply): [...] aftercare (18 sources) Polypharmacy ; Translations: [Other fdc (current) drug therapy] Onset: 03-10-2024 4 Episodic Other aftercare (2 sources) Other fdc (current) drug therapy; Translations: [Other manager intermediate (current) drug therapy] Onset: 03-10-2024 Episodic Other [...] Facility Cardiology Visit Reporton Cardiology Visit Report [facility] [address] [place] [address] OFFICE VISIT Date of Service: 02/08/25 MR#: [id number] Acct: [id number] Name: LITO GONZALEZ Rep #: [id number] : 1950 Provider: LANI Cartagena Age/Sex: 74/F Location[place] [facility] [place] Status: Signed HPI HPI History of [...] Visit Reasons: 1 Y FU/BARON @ 10 Polysomnographer Required: No Is patient in pain?: No [...] JVD Carot (more content not included)... Normal [facility] Pacemaker Checkon 02-08-2025 Pacemaker Check [facility] [address] [place] [address]. [address] [place] [address] Pacemaker Check Date of Service: 02/08/25 1334 MR#: [id number] Acct: [id number] Name: LITO GONZALEZ Rep #: [id number] : 1950 From: Hilary Jackman Age/Sex: 74/F Location[place] [facility] [place] Status: Signed Billing Codes PM Device Codes: 55944 PM Dev Prog Eval, Dual Assessment and Plan Assessment and Plan (1) Paroxysmal atrial fibrillation: Status: Acute (2) Intermittent complete heart block: Status: Acute (3) Presence of cardiac pacemaker: Status: Chronic 02/08/25 1335 Date Hilary Espinoza Signature: Date (if applicable) CC: Normal [facility] CNOVon 01-11-2025 CNOV Office Visit (INTMWS ) LITO GONZALEZ ([id number]) 1950 F Date Time Provider Department 01/11/25 11:20 AM KAMLESH ACOSTA During your visit today, we recorded the following information about you: Pulse Blood pressure Weight 108/minute 120/78 110.4 kg Kamlesh Acosta APRN.PURCHASING AND CLAIMS SUPERVISOR 01/11/2025 12:32 PM Signed SUBJECTIVE Lito Gonzalez [...] Impairment - 02/25/2024 Paf (Paroxysmal Atrial Fibrillation) ([facility]) - 12/07/2021 Comment: [facility] Nonrheumatic Aortic Valve Stenosis - 12/07/2021 Comment: [facility], echo 2021 [facility] Status Post Right Hip Replacement - 12/23/2019 Difficulty in Walking Involving Lower Leg Joint Acid Indigestion - 03/26/2016 Polycythemia, Secondary - 03/28/2011 Comment: This was abnormal, seen by , testing was normal. Generalized Osteoarthrosis, Involving Multiple Sites - 05/10/2008 Diabetes Mellitus ([facility]) - 10/20/2007 Hypertension Goal Bp (Blood Pressure) < 140/90 - 10/12/2005 Hyperlipidemia Associated With Type 2 Diabetes Mellitus ([facility]) - 10/12/2005 Class 3 Severe Obesity Due to Excess Calories With Body Mass Index (Bmi) of 45.0 to 49.9 in Adult ([facility]) Social History Tobacco Use Smoking status: Never [...] Refill: Capi (more content not included)... Normal [facility] 01-07-2025 CNPN Telephone (INTMWS) LITO GONZALEZ ([id number]) 1950 F Date Time Provider Department 01/07/25 [...] Date Reviewed: 11/10/2024 Reviewed by: Kamlesh Acosta APRN.PURCHASING AND CLAIMS SUPERVISOR - Fully Assessed Reason for Visit: Lab [...] mouth once daily. [facility] Hubbard[facility] - Lancets lancets Test [...] Encounter Status:Closed by LORETTA GUERIN on 01/11/25 [facility] CNEnedelia 11-10-2024 CNOV Office Visit (INTMWS ) GELY GONZALEZA ([id number]) 1950 F Date Time Provider Department 11/10/24 11:20 AM KAMLESH ACOSTA INTRuizWS During your visit today, we recorded the following information about you: Pulse Blood pressure Weight 84/minute 128/74 108.8 kg Kamlesh Acosta APRN.PURCHASING AND CLAIMS SUPERVISOR 11/10/2024 1:23 PM Signed SUBJECTIVE Lito Gonzalez [...] Impairment - 02/25/2024 Paf (Paroxysmal Atrial Fibrillation) ([facility]) - 12/07/2021 Comment: [facility] Nonrheumatic Aortic Valve Stenosis - 12/07/2021 Comment: [facility], echo 2021 [facility] Status Post Right Hip Replacement - 12/23/2019 Difficulty in Walking Involving Lower Leg Joint Acid Indigestion - 03/26/2016 Polycythemia, Secondary - 03/28/2011 Comment: This was abnormal, seen by , testing was normal. Generalized Osteoarthrosis, Involving Multiple Sites - 05/10/2008 Diabetes Mellitus ([facility]) - 10/20/2007 Hypertension Goal Bp (Blood Pressure) < 140/90 - 10/12/2005 Hyperlipidemia Associated With Type 2 Diabetes Mellitus ([facility]) - 10/12/2005 Class 3 Severe Obesity Due to Excess Calories With Body Mass Index (Bmi) of 45.0 to 49.9 in Adult ([facility]) Social History Tobacco Use Smoking status: Never [...] respiratory distress. (more content not included)... Normal [facility] CNOVon 09-29-2024 CNOV Office Visit (INTMWS ) LITO GONZALEZ ([id number]) 1950 F Date Time Provider Department 09/29/24 11:40 AM KAMLESH ACOSTA INTMWS During your visit today, we recorded the following information about you: Pulse Blood pressure Weight 96/minute 106/72 111.2 kg aKmlesh Acosta APRN.PURCHASING AND CLAIMS SUPERVISOR 09/29/2024 1:05 PM Signed SUBJECTIVE Lito Gonzalez [...] since she is post pacemaker placement. Seeing [facility] for cardiology follow up. She [...] Impairment - 02/25/2024 Paf (Paroxysmal Atrial Fibrillation) ([facility]) - 12/07/2021 Comment: [facility] Nonrheumatic Aortic Valve Stenosis - 12/07/2021 Comment: [facility], echo 2021 [facility] Status Post Right Hip Replacement - 12/23/2019 Difficulty in Walking Involving Lower Leg Joint Acid Indigestion - 03/26/2016 Polycythemia, Secondary - 03/28/2011 Comment: This was abnormal, seen by , testing was normal. Generalized Osteoarthrosis, Involving Multiple Sites - 05/10/2008 Diabetes Mellitus ([facility]) - 10/20/2007 Hypertension Goal Bp (Blood Pressure) < 140/90 - 10/12/2005 Hyperlipidemia Associated With Type 2 Diabetes Mellitus ([facility]) ([facility]) - 10/12/2005 Class 3 Severe Obesity Due to Excess Calories With Body Mass Index (Bmi) of 45.0 to 49.9 in Adult ([facility]) Social History Tobacco Use Smoking status: Never [...] distress. Leydi (more content not included)... Normal [facility] ALBUMIN/CREATININE RATIO, UR INEon 09-19-2024 Albumin DL <= 20 mg/L (U) [Mass/Vol] mg/dL Normal [facility] Comment on above: Order Comment: Speci men Type: URINE SPECIMENOrdering Facility: [facility] Address: [address] [place] [address] Performed By: #### U ACR ####[facility] LABCLIA [id number] [facility] [id number] [place] [address] [place] Albumin/Creatinine (U) [Mass ratio] <13 Normal <30 [facility] Comment on above: Order Comment: Speci men Type: URINE SPECIMENOrdering Facility: [facility] Address: [address] [place] [address] Result Comment: Adul t Male and Female Nephrotic Criteria: <30 mg/g is considered normal to mildly increased 30-300 mg/g is considered moderately increased >300 mg/g is considered severely increased KDIGO. (2013). KDIGO 2012 Clinical Practice Guideline for the Evaluation and Management of Chronic Kidney Disease. Official Journal of the International Society of Nephrology, 3(1), 1-150. Performed By: #### U ACR ####[facility] LABCLIA [id number] [place] [address] [place] Creatinine (U) [Mass/Vol] 95.1 mg/dL Normal 20.0-300.0 [facility] Comment on above: Order Comment: Speci men Type: URINE SPECIMENOrdering Facility: [facility] Address: [address] [place] [address] Performed By: #### U ACR ####[facility] LABCLIA [id number] [place] [address] [place] Comprehensive metabolic 2000 panelon 09-19-2024 Albumin [Mass/Vol] 4.3 g/dL Normal 3.9-4.9 [facility] Comment on above: Order Comment: Speci men Type: BLOOD SPECIMENOrdering Facility: [facility] Address: [address] [place] [address] Performed By: #### 2 4323-8, 69787-0 ####[facility] LABCLIA [id number] [place] [address] [place] ALP [Catalytic activity/Vol] 70 U/L Normal 34-123 [facility] Comment on above: Order Comment: Speci men Type: BLOOD SPECIMENOrdering Facility: [facility] Address: [address] [place] [address] Performed By: #### 2 4323-8, 96927-4 ####[facility] LABCLIA [id number] [place] [id number] [place] ALT [Catalytic activity/Vol] 26 U/L Normal 7-38 [facility] Comment on above: Order Comment: Speci men Type: BLOOD SPECIMENOrdering Facility: [facility] Address: [address] [place] [address] Performed By: #### 2 4323-8, 79376-7 ####[facility] LABCLIA [id number] [place] [id number] [place] Anion gap [Moles/Vol] 13 mmol/L Normal 8-15 [facility] Comment on above: Order Comment: Speci men Type: BLOOD SPECIMENOrdering Facility: [facility] Address: [address] [place] [address] Performed By: #### 2 4323-8, 67806-1 ####[facility] LABCLIA [id number] [place] [address] [place] AST [Catalytic activity/Vol] 21 U/L Normal 13-35 [facility] Comment on above: Order Comment: Speci men Type: BLOOD SPECIMENOrdering Facility: [facility] Address: [address] [place] [address] Performed By: #### 2 4323-8, 36422-3 ####[facility] LABCLIA [id number] [place] [address] [place] Bilirubin [Mass/Vol] 0.5 mg/dL Normal 0.2-1.3 [facility] Comment on above: Order Comment: Speci men Type: BLOOD SPECIMENOrdering Facility: [facility] Address: [address] [place] [address] Performed By: #### 2 4323-8, 56651-7 ####[facility] LABCLIA [id number] [place] [address] [place] Calcium [Mass/Vol] 9.7 mg/dL Normal 8.5-10.2 [facility] Comment on above: Order Comment: Speci men Type: BLOOD SPECIMENOrdering Facility: [facility] Address: [address] [place] [address] Performed By: #### 2 4323-8, 28649-2 ####[facility] LABCLIA [id number] [place] [address] [place] Chloride [Moles/Vol] 104 mmol/L Normal 98-107 [facility] Comment on above: Order Comment: Speci men Type: BLOOD SPECIMENOrdering Facility: [facility] Address: [address] [place] [address] Performed By: #### 2 4323-8, 94910-7 ####[facility] LABCLIA [id number] [place] [address] [place] CO2 [Moles/Vol] 22 mmol/L Normal 22-30 [facility] Comment on above: Order Comment: Speci men Type: BLOOD SPECIMENOrdering Facility: [facility] Address: [address] [place] [address] Performed By: #### 2 4323-8, 35819-7 ####[facility] LABIA [id number] [place] [address] [place] Creatinine [Mass/Vol] 0.84 mg/dL Normal 0.58-0.96 [facility] Comment on above: Order Comment: Speci men Type: BLOOD SPECIMENOrdering Facility: [facility] Address: [address] [place] [address] Performed By: #### 2 4323-8, 60058-5 ####[facility] LABIA [id number] [place] [address] [place] Creatinine and Glomerular filtration rate.predicted panel (S/P/Bld) 72 mL/min/1.73m??? Normal >=60 [facility] Comment on above: Order Comment: Speci men Type: BLOOD SPECIMENOrdering Facility: [facility] Address: [address] [place] [address] Result Comment: Angélica mated Glomerular Filtration Rate [...] actual GFR. Performed By: #### 2 4323-8, 11160-3 ####[facility] LABCLIA [id number] [place] [address] [place] Glucose [Mass/Vol] 190 mg/dL High 74-99 [facility] Comment on above: Order Comment: Speci men Type: BLOOD SPECIMENOrdering Facility: [facility] Address: [address] [place] [address] Result Comment: The [place] Diabetes Association (ADA) provides guidance for cutoff [...] Standards of Medical Care in Diabetes 2016, [place] Diabetes Association. Diabetes Care. 2016.39(Suppl 1). Performed By: #### 2 4323-8, 63912-0 ####[facility] LABCLIA [id number] [place] [address] [place] Potassium [Moles/Vol] 4.3 mmol/L Normal 3.7-5.1 [facility] Comment on above: Order Comment: Speci men Type: BLOOD SPECIMENOrdering Facility: [facility] Address: [address] [place] [address] Performed By: #### 2 4323-8, 19262-1 ####[facility] LABIA [id number] [place] [address] [place] Protein [Mass/Vol] 7.3 g/dL Normal 6.3-8.0 [facility] Comment on above: Order Comment: Speci men Type: BLOOD SPECIMENOrdering Facility: [facility] Address: [address] [place] [address] Performed By: #### 2 4323-8, 52036-8 ####[facility] LABCLIA [id number] [address] [address] [place] Sodium [Moles/Vol] 139 mmol/L Normal 136-144 [facility] Comment on above: Order Comment: Speci men Type: BLOOD SPECIMENOrdering Facility: [facility] Address: [address] [place] [address] Performed By: #### 2 4323-8, 01475-2 ####[facility] LABCLIA [id number] [place] [address] [place] Urea nitrogen [Mass/Vol] 23 mg/dL High 7-21 [facility] Comment on above: Order Comment: Speci men Type: BLOOD SPECIMENOrdering Facility: [facility] Address: [address] [place] [address] Performed By: #### 2 4323-8, 17835-5 ####[facility] LABIA [id number] [place] [address] [place] HbA1c (Bld)on 09-19-2024 Average glucose Estimated from glycated hemoglobin (Bld) [Mass/Vol] 209 mg/dL Normal [facility] Comment on above: Order Comment: Speci men Type: BLOOD SPECIMENOrdering Facility: [facility] Address: [address] [place] [address] Result Comment: eAG: (Estimated average glucose) is a calculated value from HgbA1c and is financial representative of the average blood glucose level in the last 2-3 month period. Performed By: #### 5 5454-3 ####[facility] [id number] [place] [address] [place] HbA1c (Bld) [Mass fraction] 8.9 % High 4.3-5.6 [facility] Comment on above: Order Comment: Speci men Type: BLOOD SPECIMENOrdering Facility: [facility] Address: [address] [place] [address] Result Comment: Amer [place] Diabetes Association guidelines indicate that patients with HgbA1c in the range 5.7-6.4% are at increased risk for development of diabetes, and intervention by lifestyle modification may be beneficial. HgbA1c greater or equal to 6.5% is considered diagnostic of diabetes. Performed By: #### 5 5454-3 ####[facility] LABCLIA [id number] [place] [address] [place] Lipid 1996 panelon 5 Cholesterol [Mass/Vol] 183 mg/dL Normal <200 [facility] Comment on above: Order Comment: Thomas men Type: BLOOD SPECIMENOrdering Facility: [facility] Address: [address] [place] [address] Result Comment: <200 mg/dL, Desirable 200-239 mg/dL, Borderline high >239 mg/dL, High Performed By: #### 2 4323-8, 07910-4 ####[facility] LABCLIA [id number] [address] [place] Cholesterol in HDL [Mass/Vol] 38 mg/dL Low >39 [facility] Comment on above: Order Comment: Thomas shelton Type: BLOOD SPECIMENOrdering Facility: [facility] Address: [address] [place] [address] Result Comment: 40-5 9 mg/dL, Acceptable >59 mg/dL, High: Negative risk factor for coronary heart disease <40 mg/dL, Low: Positive risk factor for coronary heart disease Performed By: #### 2 4323-8, 87454-3 ####[facility] LABCLIA [id number] [place] [address] [place] Cholesterol in LDL [Mass/Vol] 121 mg/dL High <100 [facility] Comment on above: Order Comment: Thomas shelton Type: BLOOD SPECIMENOrdering Facility: [facility] Address: [address] [place] [address] Result Comment: <100 mg/dL, Optimal 100-129 mg/dL, Near optimal/above optimal 130-159 mg/dL, Borderline high 160-189 mg/dL, High >189 mg/dL, Very high Secondary prevention optimal LDL Cholesterol levels are recommended to be < 70 mg/dL Performed By: #### 2 4323-8, 94029-9 ####[facility] LABCLIA [id number] [place] [address] [place] Cholesterol in LDL/Cholesterol in HDL [Mass ratio] 3.18 {ratio} High <2.54 [facility] Comment on above: Order Comment: Speci men Type: BLOOD SPECIMENOrdering Facility: [facility] Address: [address] [place] [address] Result Comment: Refe ludwince: 1. National Cholesterol Education Program ATP III Guideline At-A-Glance Quick Desk Reference: National Heart, Lung, and Blood [place]. National Institutes of Health. 2001: NIH Publication No. 01-3305. 2. An International Atherosclerosis Society position paper: global recommendations for the management of dyslipidemia: executive summary, Atherosclerosis. 2014: 232(2):410-413. Performed By: #### 2 4323-8, 60229-9 ####[facility] LABCLIA [id number] [place] [address] [place] Cholesterol in VLDL [Mass/Vol] 24 mg/dL Normal <30 [facility] Comment on above: Order Comment: Fransiscoi men Type: BLOOD SPECIMENOrdering Facility: [facility] Address: [address] [place] [address] Performed By: #### 2 4323-8, 59737-0 ####[facility] LABCLIA [id number] [place] [id number] [place] Cholesterol non HDL [Mass/Vol] 145 mg/dL High <130 [facility] Comment on above: Order Comment: Fransiscoi men Type: BLOOD SPECIMENOrdering Facility: [facility] Address: [address] [place] [address] Result Comment: <130 mg/dL, Optimal 130-159 mg/dL, Near optimal/above optimal 160-189 mg/dL, Borderline high 190-219 mg/dL, High >219 mg/dL, Very high Secondary prevention optimal non HDL Cholesterol levels are recommended to be <100 mg/dL Performed By: #### 2 4323-8, 51620-9 ####[facility] LABCLIA [id number] [address] [place] Cholesterol.total/Choles terol in HDL [Mass ratio] 4.82 {ratio} Normal <5.10 [facility] Comment on above: Order Comment: Speci men Type: BLOOD SPECIMENOrdering Facility: [facility] Address: [address] [place] [address] Performed By: #### 2 4323-8, 15653-6 ####[facility] LABCLIA [id number] [address] FASTING TIME 12 hrs Normal [facility] Comment on above: Order Comment: Speci men Type: BLOOD SPECIMENOrdering Facility: [facility] Address: [address] [place] [address] Performed By: #### 2 4323-8, 36489-0 ####[facility] LABIA [id number] [address] [place] [facility] Triglyceride [Mass/Vol] 118 mg/dL Normal <150 [facility] Comment on above: Order Comment: Speci men Type: BLOOD SPECIMENOrdering Facility: [facility] Address: [address] [place] [address] Result Comment: <150 mg/dL, Normal 150-199 mg/dL, Borderline high 200-499 mg/dL, High >499 mg/dL, Very high Performed By: #### 2 4323-8, 03826-5 ####[facility] LABCLIA [id number] [place] [address] [place] Elias 08-18-2024 RYAN Telephone (INTMWS) LITO GONZALEZ ([id number]) 1950 F Date Time Provider Department 08/18/24 ABBY MCCLELLAN INTMWS During your visit today, we recorded the following information about you: Barbara Duran 08/18/2024 12:53 PM Signed Lito is calling Abby Mcclellan MD today to request Lab Orders (September appointment) Patient has been identified by name and birthdate. Duration of symptoms: N/A Person calling: self Call patient at: at home [phone] (home) [phone] (cell) Was an appointment scheduled: Yes: Date/Time: [...] Date Reviewed: 02/25/2024 Reviewed by: Kamlesh Acosta APRN.PURCHASING AND CLAIMS SUPERVISOR - Fully Assessed Reason for Visit: Lab Orders [1688] Cmt: September appointment Primary Visit Diagnosis:Type 2 diabetes mellitus with other specified complication, without long-term current use of insulin (HCC) [E11.69] Other Visit Diagnoses:Hypertensio n goal BP (blood pressure) < 140/90 [I10] Hyperlipidemia associated with type 2 diabetes mellitus (HCC) ([facility]) [E11.69, E78.5] Order(s):HEMOGLOBIN A1C [BELPS5A] Order #: [id number] FUTURE LIPID PANEL BASIC [SQLIPB] Order #: [id number] FUTURE COMPREHENSIVE METABOLIC PANEL [SQCMP] Order #: [id number] FUTURE ALBUMIN/CREATININE RATIO, URINE [SQUACR] Order #: [id number] FUTURE Prescriptions as of 08/20/2024 - metFORMIN [...] Status:Closed by KRISTA JI on 08/20/24 Normal [facility] 36on 06-12-2024 36 3 attempts have no been made to reach patient. She can reach us at [phone] M-F 8-5. We will continue to reach out as well. Normal [facility] Cardiology Visit Reporton Cardiology Visit Report [facility] [address] [place] [address] OFFICE VISIT Date of Service: 06/01/24 MR#: [id number] Acct: [id number] Name: LITO GONZALEZ Rep #: [id number] : 1950 Provider: BRENDA vila Age/Sex: 73/F [place] [facility] [place] Status: Signed HPI HPI History of [...] 8 W FU/BARON @ 1:30 (PACER @ [facility]) Polysomnographer Required: No Is patient in pain?: No [...] but has no idea what they are [facility] Medical History Intermittent complete heart block Presence [...] Neuro Neuro: (more content not included)... Normal [facility] Pacemaker Checkon 06-01-2024 Pacemaker Check [facility] [address] [place] [address]. [address] [place] [address] Pacemaker Check Date of Service: 06/01/24 1418 MR#: [id number] Acct: [id number] Name: LITO GONZALEZ Rep #: [id number] : 1950 From: Hilary Jackman Age/Sex: 73/F Location[place] [facility] [place] Status: Signed Billing Codes PM Device Codes: 06321 PM Dev Prog Eval, Dual Assessment and Plan Assessment and Plan (1) Presence of cardiac pacemaker: Status: Chronic (2) Intermittent complete heart block: Status: Acute 06/01/24 1545 Date Hilary Gasper Cosigner Signature: Date (if applicable) CC: [facility] 36on 05-27-2024 36 Prior Auth was required and has been approved through 07/28/2025. I attempted to reach the patient to inform of authorization and offer [facility] services but no one answered and VM was is full. Will continue to make further outreaches. Thank you! [facility] 36on 05-19-2024 36 Chart reviewed, Eliquis was started @ [facility] PURCHASING AND CLAIMS SUPERVISOR OV 05/07/24, samples & 30 D free card given, pt will be following up w/ Dr. Hubbard. I spoke w/pt, she has 30 Day free card, but needs RX sent in. She has appt w/ Dr. Hubbard in 2 weeks. Gloria Davis to route RX. [facility] 36 Requesting refill apixaban (Eliquis) 5 MG tablet Kenneth Gordon verified [facility] Office Visiton 05-07-2024 Follow-up visit [id number] Lito Gonzalez 1950 F Date Provider Department Center 05/07/2024 07712-DTZHAMERICA DAVIS [facility] [address] Family History Problem Relation Age of Onset Breast cancer Mother COPD Father Coronary artery disease Father Family Status - Relation Status Age at Mother Father Level of Service:09403 [place] OFFICE/OUTPATIENT ESTABLISHED MOD MDM 30 MIN Reason for Visit and Comments: 1 Month Follow Up [[id number]] [facility] Progress Noteon 05-07-2024 Progress Note [facility] [place] [address] [facility] [address] Dept: [phone] Dept Loc: [phone] Reason for Visit: 1 Month Follow Up [...] 04/06/24 -will follow with device clinic at [facility][Note 3] Group Follow up for Dr. Hubbard 1-2 [...] 04/06/2024 Performed by Srinivasa Poon MD at [facility] OR CARDIAC ELECTROPHYSIOLOGY PROCEDURE N/A 04/07/2024 Performed by Eric Okeefe MD at [facility] Cardiac Cath/EP Lab HYSTERECTOMY TOTAL HIP ARTHROPLASTY [...] Cardiovascular: Rate a (more content not included)... [facility] Progress Note Well controlled on current doses of losartan and metoprolol succinate Normal [facility] Progress Note Hx PAF with RVR [...] 30 day free card given to patient [facility] Progress Note Noted post TAVR, PPM placed on 04/06/24 -will follow with device clinic at [facility] Progress Note S/p TAVR with 23 mm Makenzie S3 valve on 04/06/24 -stable, NYHA Class II -stop ASA, start Eliquis, see below -repeat echo to be done today -lifelong SBE prophylaxis -Cardiac Rehab-advised her to schedule an orientation [facility] US Heart TransthoracicOrdere d By: Anibal Young on 05-07-2024 AV Area by Peak Velocity 1.5 cm2 [facility] [employer] Work Phone: AV Area by VTI 1.5 cm2 [facility] Work Phone: AV Mean Gradient 15 mmHg [facility] Work Phone: AV Mean Velocity 1.8 m/s [facility] Work Phone: AV Peak Gradient 28 mmHg [facility] Work Phone: AV Peak Velocity 2.6 m/s [facility] Work Phone: AV Velocity Ratio 0.46 [facility] Work Phone: AV VTI 50.3 cm [facility] [employer] Work Phone: BENITA/BSA Peak Velocity 0.8 cm2/m2 [facility] Work Phone: BENITA/BSA VTI 0.8 cm2/m2 [facility] [employer] Work Phone: E/E' Lateral 16.83 [facility] [employer] Work Phone: E/E' Ratio (Averaged) 16.83 [facility] Work Phone: E/E' Septal 16.83 [facility] [employer] Work Phone: EF BP 67 % 55 - 100 % [facility] [employer] Work Phone: Fractional Shortening 2D 36 % 28 - 44 % [facility] [employer] Work Phone: Interpretation and review of laboratory results Abnormal [facility] [employer] Work Phone: IVC Diameter 1.3 cm [facility] [employer] Work Phone: IVSd 1.0 cm Abnormal 0.6 - 0.9 cm [facility] [employer] Work Phone: LA Diameter 4.1 cm [facility] [employer] Work Phone: LA Size Index 2.05 cm/m2 [facility] [employer] Work Phone: LA Volume 2C 35 mL 22 - 52 mL [facility] [employer] Work Phone: LA Volume 4C 46 mL 22 - 52 mL [facility] [employer] Work Phone: LA Volume A/L 45 mL [facility] Work Phone: LA Volume BP 41 mL 22 - 52 mL [facility] [employer] Work Phone: LA Volume Index 2C 18 mL/m2 16 - 34 mL/m2 [facility] [employer] Work Phone: LA Volume Index 4C 23 mL/m2 16 - 34 mL/m2 [facility] [employer] Work Phone: LA Volume Index A/L 23 mL/m2 16 - 34 mL/m2 [facility] [employer] Work Phone: LA Volume Index BP 21 ml/m2 16 - 34 ml/m2 [facility] [employer] Work Phone: LV E' Lateral Velocity 6 cm/s [facility] Work Phone: LV E' Septal Velocity 6 cm/s [facility] Work Phone: LV EDV A2C 43 mL [facility] Work Phone: LV EDV A4C 51 mL [facility] Work Phone: LV EDV BP 49 mL Abnormal 56 - 104 mL [facility] Work Phone: LV EDV Index A2C 22 mL/m2 [facility] Work Phone: LV EDV Index A4C 26 mL/m2 [facility] Work Phone: LV EDV Index BP 25 mL/m2 [facility] Work Phone: LV Ejection Fraction A2C 70 % [facility] Work Phone: LV Ejection Fraction A4C 65 % [facility] Work Phone: LV ESV A2C 13 mL [facility] Work Phone: LV ESV A4C 18 mL [facility] Work Phone: LV ESV BP 16 mL Abnormal 19 - 49 mL [facility] Work Phone: LV ESV Index A2C 7 mL/m2 [facility] Work Phone: LV ESV Index A4C 9 mL/m2 [facility] Work Phone: LV ESV Index BP 8 mL/m2 [facility] Work Phone: LV Mass 2D 107.9 g 67 - 162 g [facility] Work Phone: LV Mass 2D Index 53.9 g/m2 43 - 95 g/m2 [facility] Work Phone: LV RWT Ratio 0.56 [facility] Work Phone: LVIDd 3.6 cm Abnormal 3.9 - 5.3 cm [facility] Work Phone: LVIDd Index 1.80 cm/m2 [facility] Work Phone: LVIDs 2.3 cm [facility] Work Phone: LVIDs Index 1.15 cm/m2 [facility] Work Phone: LVOT Area 3.1 cm2 [facility] Work Phone: LVOT Cardiac Output 7.2 liter/minute [facility] Work Phone: LVOT Diameter 2.0 cm [facility] Work Phone: LVOT Mean Gradient 3 mmHg [facility] Work Phone: LVOT Peak Gradient 6 mmHg [facility] Work Phone: LVOT Peak Velocity 1.2 m/s [facility] Work Phone: LVOT Stroke Volume Index 35.8 mL/m2 [facility] Work Phone: LVOT SV 71.6 ml [facility] Work Phone: LVOT VTI 22.8 cm [facility] Work Phone: LVOT:AV VTI Index 0.45 [facility] Work Phone: LVPWd 1.0 cm Abnormal 0.6 - 0.9 cm [facility] Work Phone: MV A Velocity 1.39 m/s [facility] Work Phone: MV Area by VTI 2.3 cm2 [facility] Work Phone: MV E Velocity 1.01 m/s [facility] Work Phone: MV E Wave Deceleration Time 165.2 ms [facility] Work Phone: MV E/A 0.73 [facility] Work Phone: MV Max Velocity 1.5 m/s [facility] Work Phone: MV Mean Gradient [...] Anion gap [Moles/Vol] 14 mmol/L Normal 8-15 [facility] Comment on above: Order Comment: Speci men Type: BLOOD SPECIMENOrdering Facility: [facility] Address: [address] [place] [address] Performed By: #### 2 4321-2, 3015-3 ####[facility] [id number] [place] [address] [place] Calcium [Mass/Vol] 10.0 mg/dL Normal 8.5-10.2 [facility] Comment on above: Order Comment: Speci men Type: BLOOD SPECIMENOrdering Facility: [facility] Address: [address] [place] [address] Performed By: #### 2 4321-2, 6-3 ####[facility] [id number] [place] [address] [place] Chloride [Moles/Vol] 103 mmol/L Normal 98-107 [facility] Comment on above: Order Comment: Speci men Type: BLOOD SPECIMENOrdering Facility: [facility] Address: [address] [place] [address] Performed By: #### 2 4321-2, 3016-3 ####[facility] [id number] [place] [id number] [place] CO2 [Moles/Vol] 24 mmol/L Normal 22-30 [facility] Comment on above: Order Comment: Speci men Type: BLOOD SPECIMENOrdering Facility: [facility] Address: [address] [place] [address] Performed By: #### 2 4321-2, 3016-3 ####[facility] [id number] [place] [address] [place] Creatinine [Mass/Vol] 0.87 mg/dL Normal 0.58-0.96 [facility] Comment on above: Order Comment: Speci men Type: BLOOD SPECIMENOrdering Facility: [facility] Address: [address] [place] [address] Performed By: #### 2 4321-2, 3016-3 ####[facility] [id number] [place] [address] [place] Creatinine and Glomerular filtration rate.predicted panel (S/P/Bld) 70 mL/min/1.73m??? Normal >=60 [facility] Comment on above: Order Comment: Speci men Type: BLOOD SPECIMENOrdering Facility: [facility] Address: [address] [place] [address] Result Comment: Angélica mated Glomerular Filtration Rate [...] GFR. Performed By: #### 2 4321-2, 6-3 ####[facility] [id number] [address] [address] [place] Glucose [Mass/Vol] 213 mg/dL High 74-99 [facility] Comment on above: Order Comment: Thomas shelton Type: BLOOD SPECIMENOrdering Facility: [facility] Address: [address] [place] [address] Result Comment: The [place] [employer] Association (ADA) provides guidance for cutoff [...] Standards of Medical Care in Diabetes 2016, [place] [employer]. Diabetes Care. 2016.39(Suppl 1). Performed By: #### 2 4321-2, 3015-3 ####[facility] [id number] [address] [address] [place] Potassium [Moles/Vol] 4.6 mmol/L Normal 3.7-5.1 [facility] Comment on above: Order Comment: Thomas shelton Type: BLOOD SPECIMENOrdering Facility: [facility] Address: [address] [place] [address] Performed By: #### 2 4321-2, 6-3 ####[facility] [id number] [address] [address] [place] Sodium [Moles/Vol] 141 mmol/L Normal 136-144 [facility] Comment on above: Order Comment: Thomas shelton Type: BLOOD SPECIMENOrdering Facility: [facility] Address: [address] [place] [address] Performed By: #### 2 4321-2, 3016-3 ####[facility]CL[facility] [id number] [place] [address] [place] Urea nitrogen [Mass/Vol] 20 mg/dL Normal 7-21 [facility] Comment on above: Order Comment: Speci men Type: BLOOD SPECIMENOrdering Facility: [facility] Address: [address] [place] [address] Performed By: #### 2 4321-2, 3016-3 ####[facility] [id number] [place] [address] [place] CBC W Auto Differential pane l (Bld)on 05-04-2024 Basophils (Bld) [#/Vol] 0.09 10*3/uL Normal <0.11 [facility] Comment on above: Order Comment: Speci men Type: BLOOD SPECIMENOrdering Facility: [facility] Address: [address] [place] [address] Performed By: #### 5 7021-8 ####[facility]CL[facility] [id number] [place] [address] [place] Basophils/100 WBC (Bld) 1.2 % Normal [facility] Comment on above: Order Comment: Speci men Type: BLOOD SPECIMENOrdering Facility: [facility] Address: [address] [place] [address] Performed By: #### 5 7021-8 ####[facility] [id number] [place] [id number] [place] Differential cell count method Nom (Bld) Auto Normal [facility] Comment on above: Order Comment: Speci men Type: BLOOD SPECIMENOrdering Facility: [facility] Address: [address] [place] [address] Performed By: #### 5 7021-8 ####[facility]CL[facility] [id number] [place] [id number] [place] Eosinophils (Bld) [#/Vol] 0.37 10*3/uL Normal <0.46 [facility] Comment on above: Order Comment: Speci men Type: BLOOD SPECIMENOrdering Facility: [facility] Address: [address] [place] [address] Performed By: #### 5 7021-8 ####[facility] [id number] [place] [address] [place] Eosinophils/100 WBC (Bld) 4.8 % Normal [facility] Comment on above: Order Comment: Speci men Type: BLOOD SPECIMENOrdering Facility: [facility] Address: [address] [place] [address] Performed By: #### 5 7021-8 ####[facility]CL[facility] [id number] [place] [address] [place] Erythrocyte distribution width (RBC) [Ratio] 13.2 % Normal 11.5-15.0 [facility] Comment on above: Order Comment: Speci men Type: BLOOD SPECIMENOrdering Facility: [facility] Address: [address] [place] [address] Performed By: #### 5 7021-8 ####[facility]CL[facility] [id number] [place] [address] [place] Hematocrit (Bld) [Volume fraction] 43.6 % Normal 36.0-46.0 [facility] Comment on above: Order Comment: Speci men Type: BLOOD SPECIMENOrdering Facility: [facility] Address: [address] [place] [address] Performed By: #### 5 7021-8 ####[facility] [id number] [place] [address] [place] Hemoglobin (Bld) [Mass/Vol] 14.1 g/dL Normal 11.5-15.5 [facility] Comment on above: Order Comment: Speci men Type: BLOOD SPECIMENOrdering Facility: [facility] Address: [address] [place] [address] Performed By: #### 5 7021-8 ####[facility]CL[facility] [id number] [place] [address] [place] Immature granulocytes (Bld) [#/Vol] 10*3/uL Normal <0.10 [facility] Comment on above: Order Comment: Speci men Type: BLOOD SPECIMENOrdering Facility: [facility] Address: [address] [place] [address] Performed By: #### 5 7021-8 ####[facility]CL[facility] [id number] [place] [address] [place] Immature granulocytes/100 WBC (Bld) 0.3 % Normal [facility] Comment on above: Order Comment: Speci men Type: BLOOD SPECIMENOrdering Facility: [facility] Address: [address] [place] [address] Performed By: #### 5 7021-8 ####[facility]CL[facility] [id number] [place] [address] [place] Lymphocytes (Bld) [#/Vol] 1.67 10*3/uL Normal 1.00-4.00 [facility] Comment on above: Order Comment: Speci men Type: BLOOD SPECIMENOrdering Facility: [facility] Address: [address] [place] [address] Performed By: #### 5 7021-8 ####[facility]CL[facility] [id number] [place] [address] [place] Lymphocytes/100 WBC (Bld) 21.7 % Normal [facility] Comment on above: Order Comment: Speci men Type: BLOOD SPECIMENOrdering Facility: [facility] Address: [address] [place] [address] Performed By: #### 5 7021-8 ####[facility]CL[facility] [id number] [place] [address] [place] MCH (RBC) [Entitic mass] 31.1 pg Normal 26.0-34.0 [facility] Comment on above: Order Comment: Speci men Type: BLOOD SPECIMENOrdering Facility: [facility] Address: [address] [place] [address] Performed By: #### 5 7021-8 ####[facility]CL[facility] [id number] [place] [address] [place] MCHC (RBC) [Mass/Vol] 32.3 g/dL Normal 30.5-36.0 [facility] Comment on above: Order Comment: Speci men Type: BLOOD SPECIMENOrdering Facility: [facility] Address: [address] [place] [address] Performed By: #### 5 7021-8 ####[facility]CL[facility] [id number] [place] [address] [place] MCV (RBC) [Entitic vol] 96.0 fL Normal 80.0-100.0 [facility] Comment on above: Order Comment: Speci men Type: BLOOD SPECIMENOrdering Facility: [facility] Address: [address] [place] [address] Performed By: #### 5 7021-8 ####[facility]CL[facility] [id number] [place] [address] [place] Monocytes (Bld) [#/Vol] 1.04 10*3/uL High <0.87 [facility] Comment on above: Order Comment: Speci men Type: BLOOD SPECIMENOrdering Facility: [facility] Address: [address] [place] [address] Performed By: #### 5 7021-8 ####[facility]CL[facility] [id number] [place] [address] [place] Monocytes/100 WBC (Bld) 13.5 % Normal [facility] Comment on above: Order Comment: Speci men Type: BLOOD SPECIMENOrdering Facility: [facility] Address: [address] [place] [address] Performed By: #### 5 7021-8 ####[facility]CL[facility] [id number] [facility] [address] [address] [place] Neutrophils (Bld) [#/Vol] 4.52 10*3/uL Normal 1.45-7.50 [facility] Comment on above: Order Comment: Speci men Type: BLOOD SPECIMENOrdering Facility: [facility] Address: [address] [place] [address] Performed By: #### 5 7021-8 ####[facility] [id number] [facility] [address] [address] [place] Neutrophils/100 WBC (Bld) 58.5 % Normal [facility] Comment on above: Order Comment: Speci men Type: BLOOD SPECIMENOrdering Facility: [facility] Address: [address] [place] [address] Performed By: #### 5 7021-8 ####[facility]CLIA [id number] [place] [address] [place] Nucleated RBC (Bld) [#/Vol] 10*3/uL Normal <0.01 [facility] Comment on above: Order Comment: Speci men Type: BLOOD SPECIMENOrdering Facility: [facility] Address: [address] [place] [address] Performed By: #### 5 7021-8 ####[facility]CL[facility] [id number] [place] [address] [place] Nucleated RBC/100 WBC (Bld) [Ratio] 0.0 /100 WBC Normal [facility] Comment on above: Order Comment: Speci men Type: BLOOD SPECIMENOrdering Facility: [facility] Address: [address] [place] [address] Performed By: #### 5 7021-8 ####[facility]CLIA [id number] [facility] [address] [address] [place] Platelet mean volume (Bld) [Entitic vol] 11.9 fL Normal 9.0-12.7 [facility] Comment on above: Order Comment: Speci men Type: BLOOD SPECIMENOrdering Facility: [facility] Address: [address] [place] [address] Performed By: #### 5 7021-8 ####[facility]CLIA [id number] [place] [address] [place] Platelets (Bld) [#/Vol] 144 10*3/uL Low 150-400 [facility] Comment on above: Order Comment: Speci men Type: BLOOD SPECIMENOrdering Facility: [facility] Cardiology Address: [address] [place] [address] Performed By: #### 5 7021-8 ####[facility] LABCLIA [id number] [place] [address] [place] RBC (Bld) [#/Vol] 4.54 10*6/uL Normal 3.90-5.20 [facility] Comment on above: Order Comment: Speci men Type: BLOOD SPECIMENOrdering Facility: [facility] Address: [address] [place] [address] Performed By: #### 5 7021-8 ####[facility] LABIA [id number] [place] [address] [place] WBC (Bld) [#/Vol] 7.71 10*3/uL Normal 3.70-11.00 [facility] Comment on above: Order Comment: Speci men Type: BLOOD SPECIMENOrdering Facility: [facility] Address: [address] [place] [address] Performed By: #### 5 7021-8 ####[facility] LABIA [id number] [place] [address] [place] TSH SerPl-aCncon 05-04-2024 TSH Qn 0.980 m[IU]/L Normal 0.270-4.200 [facility] Comment on above: Order Comment: Speci men Type: BLOOD SPECIMENOrdering Facility: [facility] Address: [address] [id number] Performed By: #### 2 4321-2, 3016-3 ####[facility] LABCLIA [id number] [facility] [id number], [place] [address] [place] Office Visiton 04-17-2024 Follow-up visit [id number] Lito Gonzalez 1950 F Date Provider Department Center 04/17/2024 [id number] [facility] [facility] JORGE SHMGCV [address] Ar Family History Problem Relation Age of Onset Breast cancer Mother COPD Father Coronary artery disease Father Family Status - Relation Status Age at Mother Father Level of Service:37357 [place] OFFICE/OUTPATIENT ESTABLISHED MOD MDM 30 MIN Reason for Visit and Comments: Hospital Follow-up [832] Normal [facility] Progress Noteon 04-17-2024 Progress Note [facility] [place] [address] [facility] [address] Dept: [phone] Dept Visit type: Established : 1950 Reason for Visit: No chief complaint on file. Assessment and Plan 1. S/P TAVR (transcatheter aortic valve replacement). She has a resting tachycardia today, unclear etiology. Will check labs - Basic metabolic panel - CBC auto differential - [facility] 2. Essential hypertension. BP controlled, [...] - CBC auto differential - TSH - [facility] 4. Complete heart block (CMS/HCC) (HCC). S/p PPm. Has follow up with device clinic. One month follow up Subjective Lito Gonzalez is a 73 y.o. female with PMH paroxysmal atrial fibrillation ?, nonrheumatic aortic valve stenosis, DM, hypertension, RBBB and left posterior fascicular block that presented to [facility] on 04/06/2024 for TAVR. Femoral TAVR with [...] 04/06/2024 Performed by Srinivasa Poon MD at [facility] OR CARDIAC ELECTROPHYSIOLOGY PROCEDURE N/A 04/07/2024 Performed by Eric Okeefe MD at [facility] Cardiac Cath/EP Lab HYSTERECTOMY TOTAL HIP ARTHROPLASTY [...] RBBB Rev (more content not included)... Normal [facility] 36on 04-10-2024 36 Patient s/p TAVR 04/06/24 with CHB s/p PPM placement 04/07/24. BP elevated, 50 mg losartan. Spoke with patient and diarrhea has resolved, she took losartan this morning without concerns. Rescheduled 1 week follow-up to 04/17 as patient's has EGD on 04/16. Normal [facility] 36on 04-09-2024 36 Patient called b/c she started the losartan this morning and now c/o diarrhea Normal [facility] CALCIUM, IONIZEDon 4 CALCIUM IONIZED 4.60 mg/dL Normal 4.30-5.20 [facility] Comment on above: Performed By: #### L AB54 ####Clinical Resource Coordinator: GRISEL GARZA ([phone])[facility] ([address] PH, IONIZED CALCIUM 7.39 Normal 7.31-7.46 [facility] Comment on above: Performed By: #### L AB54 ####Clinical Resource Coordinator: GRISEL GARZA ([phone])[facility] ([facility])[address] CBC W Auto Differential pane l (Bld)on 04-08-2024 Basophils (Bld) [#/Vol] 0.1 10*3/uL 0.0 - 0.2 10*3/uL [facility] Basophils/100 WBC (Bld) 0.8 % 0.0 - 2.0 % [facility] Eosinophils (Bld) [#/Vol] 0.4 10*3/uL 0.0 - 0.5 10*3/uL [facility] Eosinophils/100 WBC (Bld) 3.7 % 0.0 - 6.0 % [facility] Erythrocyte distribution width (RBC) [Ratio] 13.7 % 11.5 - 15.0 % [facility] Hematocrit (Bld) [Volume fraction] 41.2 % 35.0 - 47.0 % [facility] Hemoglobin (Bld) [Mass/Vol] 13.5 g/dL 11.7 - 16.0 g/dL [facility] Immature granulocytes (Bld) [#/Vol] 0.0 10*3/uL NINF - 0.1 10*3/uL [facility] [employer] Immature granulocytes/100 WBC (Bld) 0.3 % 0.0 - 2.0 % [facility] Interpretation and review of laboratory results Abnormal [facility] Lymphocytes (Bld) [#/Vol] 2.3 10*3/uL 1.0 - 4.3 10*3/uL [facility] Lymphocytes/100 WBC (Bld) 22.5 % 15.0 - 45.0 % [facility] MCH (RBC) [Entitic mass] 30.5 pg 26. 0 - 34.0 pg [facility] MCHC (RBC) [Mass/Vol] 32.8 % 30.5 - 36.0 % [facility] MCV (RBC) [Entitic vol] 93.0 fL 77.0 - 99.0 fL [facility] Monocytes (Bld) [#/Vol] 1.4 10*3/uL High 0.0 - 0.9 10*3/uL [facility] Monocytes/100 WBC (Bld) 13.4 % High 5.0 - 13.0 % [facility] Neutrophils (Bld) [#/Vol] 6.0 10*3/uL 1.8 - 7.5 10*3/uL [facility] Neutrophils/100 WBC (Bld) 59.3 % 38.0 - 82.0 % [facility] Nucleated RBC/100 WBC (Bld) [Ratio] 0.0 % [facility] Platelet mean volume (Bld) [Entitic vol] 11.3 fL 9.0 - 12.7 fL [facility] Platelets (Bld) [#/Vol] 144 10*3/uL 140 - 440 10*3/uL [facility] RBC (Bld) [#/Vol] 4.43 10*6/uL 3.80 - 5.2 0 10*6/uL [facility] WBC (Bld) [#/Vol] 10.1 10*3/uL 3.6 - 10.7 10*3/uL [facility] CBC WITH AUTO DIFFERENTIALon 04-08-2024 Basophils (Bld) [#/Vol] 0.1 10*3/uL Normal 0.0-0.[address] [facility] Comment on above: Performed By: #### L [id number] ####Clinical Resource Coordinator: GRISEL [phone])[facility] ([facility])[address] [place] [address] Basophils/100 WBC (Bld) 0.8 % Normal 0.0-2.0 S [facility] Comment on above: Performed By: #### L [id number] ####Clinical Resource Coordinator: GRISEL GARZA ([phone])[facility] ([facility])[address] [place] [address] [place] Eosinophils (Bld) [#/Vol] 0.4 10*3/uL Normal 0.0-0.[address] [facility] Comment on above: Performed By: #### L [id number] ####Clinical Resource Coordinator: GRISEL GARZA ([phone])[facility] ([facility])[address] [place] [address] [place] Eosinophils/100 WBC (Bld) 3.7 % Normal 0.0-6.[address] [facility] Comment on above: Performed By: #### L [id number] ####Clinical Resource Coordinator: GRISEL GARZA ([phone])[facility])[address] [place] [address] Erythrocyte distribution width (RBC) [Ratio] 13.7 % Normal 11.5-15.[address] [facility] Comment on above: Performed By: #### L [id number] ####Clinical Resource Coordinator: GRISEL GARZA ([phone])[facility])[address] [place] [address] Hematocrit (Bld) [Volume fraction] 41.2 % Normal 35.0-47.[address] [facility] Comment on above: Performed By: #### L [id number] ####Clinical Resource Coordinator: GRISEL GARZA ([phone])[address] Hemoglobin (Bld) [Mass/Vol] 13.5 g/dL Normal 11.7-16.[address] [facility] Comment on above: Performed By: #### L [id number] ####Clinical Resource Coordinator: GRISEL GARZA ([phone])[address] IMMATURE GRANS % 0.3 % Normal 0.0-2.0 [facility] Comment on above: Performed By: #### L [id number] ####Clinical Resource Coordinator: GRISEL GARZA ([phone])[address] IMMATURE GRANS ABSOLUTE 0.0 10*3/uL Normal <0.[address] [facility] Comment on above: Performed By: #### L [id number] ####Clinical Resource Coordinator: GRISEL GARZA ([phone])[facility])[address] [place] [address] Lymphocytes (Bld) [#/Vol] 2.3 10*3/uL Normal 1.0-4.[address] [facility] Comment on above: Performed By: #### L [id number] ####Clinical Resource Coordinator: GRISEL GARZA ([phone])[facility] ([facility])[address] [place] [address] Lymphocytes/100 WBC (Bld) 22.5 % Normal 15.0-45.[address] [facility] Comment on above: Performed By: #### L [id number] ####Clinical Resource Coordinator: GRISEL GARZA ([phone])[facility] ([facility])[address] [place] [address] MCH (RBC) [Entitic mass] 30.5 pg Normal 26.0-34.[address] [facility] Comment on above: Performed By: #### L [id number] ####Clinical Resource Coordinator: GRISEL GARZA ([phone])[facility])[address] [place] [address] MCHC 32.8 % Normal 30.5-36.[address] [facility] Comment on above: Performed By: #### L [id number] ####Clinical Resource Coordinator: GRISEL GARZA ([phone])[facility] ([facility])[address] [place] [address] MCV (RBC) [Entitic vol] 93.0 fL Normal 77.0-99.0 S [facility] Comment on above: Performed By: #### L [id number] ####Clinical Resource Coordinator: GRISEL GARZA ([phone])[facility])[address] [place] [address] Monocytes (Bld) [#/Vol] 1.4 10*3/uL High 0.0-0.[address] [facility] Comment on above: Performed By: #### L [id number] ####Clinical Resource Coordinator: GRISEL GARZA ([phone])[facility])[address] [place] [address] Monocytes/100 WBC (Bld) 13.4 % High 5.0-13.0 S [facility] Comment on above: Performed By: #### L [id number] ####Clinical Resource Coordinator: GRISEL GARZA ([phone])[facility] [place] [address] NEUTROPHILS ABSOLUTE 6.0 10*3/uL Normal 1.8-7.5 [facility] Comment on above: Performed By: #### L [id number] ####Clinical Resource Coordinator: GRISEL GARZA ([phone])[facility] ([facility])[address] [place] [address] Neutrophils/100 WBC (Bld) 59.3 % Normal 38.0-82.0 [facility] Comment on above: Performed By: #### L [id number] ####Clinical Resource Coordinator: GRISEL GARZA ([phone])[facility] ([facility])[address] [place] [address] NRBC 0.0 /100 WBCs Normal 0.0-2.0 [facility] Comment on above: Performed By: #### L [id number] ####Clinical Resource Coordinator: GRISEL GARZA ([phone])[facility] ([facility])[address] [place] [address] Platelet mean volume (Bld) [Entitic vol] 11.3 fL Normal 9.0-12.7 [facility] Comment on above: Performed By: #### L [id number] ####Clinical Resource Coordinator: GRISEL GARZA ([phone])[facility] ([facility])[address] [place] [address] Platelets (Bld) [#/Vol] 144 10*3/uL Normal 140-440 [facility] Comment on above: Performed By: #### L [id number] ####Clinical Resource Coordinator: GRISEL GARZA ([phone])[facility] ([facility])[address] [place] [address] RBC (Bld) [#/Vol] 4.43 10*6/uL Normal 3.80-5.20 [facility] Comment on above: Performed By: #### L [id number] ####Clinical Resource Coordinator: GRISEL GARZA ([phone])[facility] ([facility])[address] [place] [address] [place] WBC (Bld) [#/Vol] 10.1 10*3/uL Normal 3.6-10.7 [facility] Comment on above: Performed By: #### L [id number] ####Clinical Resource Coordinator: GRISEL GARZA ([phone])[facility] ([facility])[address] [place] [address] COMPREHENSIVE METABOLIC PANE Cedric 04-08-2024 Albumin [Mass/Vol] 3.9 g/dL Normal 3.5-5.0 [facility] Comment on above: Performed By: #### L AB17, AVY105, KMD025 ####Clinical Resource Coordinator: GRISEL GARZA ([phone])[facility] ([facility])[address] [place] [address] ALP [Catalytic activity/Vol] 54 U/L Normal 38-126 [facility] Comment on above: Performed By: #### L AB17, [id number], [id number] ####Clinical Resource Coordinator: GRISEL GARZA ([phone])[facility] ([facility])[address] [place] [address] ALT [Catalytic activity/Vol] 27 U/L Normal 0-34 [facility] Comment on above: Performed By: #### L AB17, KNB801, UYC611 ####Clinical Resource Coordinator: GRISEL GARZA ([phone])[facility] ([facility])[address] [place] [address] Anion gap [Moles/Vol] 5 mmol/L Normal 3-13 [facility] Comment on above: Performed By: #### L AB17, QUT687, CII867 ####Clinical Resource Coordinator: GRISEL GARZA ([phone])[facility] ([facility])[address] [place] [address] AST [Catalytic activity/Vol] 27 U/L Normal 15-46 [facility] Comment on above: Performed By: #### L AB17, RDB873, DIU449 ####Clinical Resource Coordinator: GRISEL GARZA ([phone])[facility])[address] [place] [address] Bilirubin [Mass/Vol] 1.3 mg/dL Normal 0.2-1.3 [facility] Comment on above: Performed By: #### L AB17, OZT750, OVB218 ####Clinical Resource Coordinator: GRISEL GARZA ([phone])[facility])[address] [place] [address] Calcium [Mass/Vol] 9.4 mg/dL Normal 8.4-10.4 [facility] Comment on above: Performed By: #### L AB17, YIT349, JDJ176 ####Clinical Resource Coordinator: GRISEL GARZA ([phone])[facility] ([facility] [place] [address] Chloride [Moles/Vol] 108 mmol/L High 98-107 [facility] Comment on above: Performed By: #### L AB17, YMA129, VWP065 ####Clinical Resource Coordinator: GRISEL GARZA ([phone])[facility] ([facility])[address] [place] [address] CO2 [Moles/Vol] 22 mmol/L Normal 22-30 [facility] Comment on above: Performed By: #### L AB17, GRS253, RBV937 ####Clinical Resource Coordinator: GRISEL GARZA ([phone])[facility])[address] [place] [address] Creatinine [Mass/Vol] 0.74 mg/dL Normal 0.52-1.04 [facility] Comment on above: Performed By: #### L AB17, FBH490, USW090 ####Clinical Resource Coordinator: GRISEL GARZA ([phone])[facility])[address] [place] [address] GLOMERULAR FILTRATION RATE ML/MIN/1.73 SQ M.PREDICTED 84.5 mL/min/1.73m*2 Normal >60.0 [facility] Comment on above: Result Comment: Calc ulation based on the Chronic Kidney Disease Epidemiology Collaboration (CKD-EPI) equation refit without adjustment for race Performed By: #### L AB17, OZA213, AFB032 ####Clinical Resource Coordinator: GRISEL GARZA ([phone])[facility] ([facility])[address] [place] [address] [place] Glucose [Mass/Vol] 159 mg/dL High 70-100 [facility] Comment on above: Performed By: #### L AB17, XJN053, GXK513 ####Clinical Resource Coordinator: GRISEL GARZA ([phone])[facility] ([facility] [place] [address] Potassium [Moles/Vol] 3.9 mmol/L Normal 3.5-5.1 [facility] Comment on above: Performed By: #### L AB17, QGK277, MTH601 ####Clinical Resource Coordinator: GRISEL GARZA ([phone])[facility] ([facility])[address] [place] [address] Protein [Mass/Vol] 6.8 g/dL Normal 6.3-8.2 [facility] Comment on above: Performed By: #### L AB17, APQ104, GPW995 ####Clinical Resource Coordinator: GRISEL GARZA ([phone])[facility] ([facility] [place] [address] Sodium [Moles/Vol] 135 mmol/L Normal 135-145 [facility] Comment on above: Performed By: #### L AB17, NBZ581, VVS112 ####Clinical Resource Coordinator: GRISEL GARZA ([phone])[facility] [place] [address] Urea nitrogen [Mass/Vol] 18 mg/dL High 7-[address] [facility] Comment on above: Performed By: #### L AB17, LAZ502, GRH728 ####Clinical Resource Coordinator: GRISEL GARZA ([phone])[facility] ([facility])[address] [place] [address] [place] Calcium.ionized [Moles/Vol]o n 04-08-2024 Calcium.ionized (Bld) [Moles/Vol] 4.60 mg/dL 4.30 - 5.20 mg/dL [facility] Interpretation and review of laboratory results Normal [facility] PH, IONIZED CALCIUM 7.39 7.31 - 7.46 [facility] Comprehensive metabolic 1998 panelon 04-08-2024 Albumin [Mass/Vol] 3.9 g/dL 3.5 - 5.0 g/dL [facility] ALP [Catalytic activity/Vol] 54 U/L 38 - 126 U/L [facility] ALT [Catalytic activity/Vol] 27 U/L 0 - 34 U/L [facility] Anion gap [Moles/Vol] 5 mmol/L 3 - 13 mmol/L [facility] AST [Catalytic activity/Vol] 27 U/L 15 - 46 U/L [facility] Bilirubin [Mass/Vol] 1.3 mg/dL 0.2 - 1 .3 mg/dL [facility] Calcium [Mass/Vol] 9.4 mg/dL 8.4 - 10. 4 mg/dL [facility] Chloride [Moles/Vol] 108 mmol/L High 98 - 10 7 mmol/L [facility] CO2 [Moles/Vol] 22 mmol/L 22 - 30 mmol/L [facility] Creatinine [Mass/Vol] 0.74 mg/dL 0.52 - 1.04 mg/dL [facility] GFR/1.73 sq M.predicted (S/P/Bld) [Vol rate/Area] 84.5 mL/min - PINF [facility] Comment on above: Calculation based on the Chronic Kidney Disease Epidemiology Collaboration (CKD-EPI) equation refit without adjustment for race Glucose [Mass/Vol] 159 mg/dL High 70 - 100 mg/dL [facility] Interpretation and review of laboratory results Abnormal [facility] Potassium [Moles/Vol] 3.9 mmol/L 3.5 - 5.1 mmol/L [facility] Protein [Mass/Vol] 6.8 g/dL 6.3 - 8.2 g/dL [facility] Sodium [Moles/Vol] 135 mmol/L 135 - 145 mmol/L [facility] Urea nitrogen [Mass/Vol] 18 mg/dL High 7 - 17 mg/d L [facility] ECG 12-LEADon 04-08-2024 ECG 12-LEAD IMPRESSION: Sinus tachycardia RBBB and LPFB Nonspecific ST and T wave changes Electronically Signed On 04-08-2024 08:58:15 EDT by Alen Hernández Normal [facility] System [facility] ECG 12-LEAD IMPRESSION: Sinus tachycardia RBBB and LPFB Nonspecific ST and T wave changes Electronically Signed On 04-08-2024 08:58:33 EDT by Alen Hidalgo [facility] ECG 12-LEAD IMPRESSION: Sinus tachycardia RBBB and LPFB Nonspecific ST and T wave changes Electronically Signed On 04-08-2024 08:57:47 EDT by Alen Hidalgo [facility] ECG 12-LEAD IMPRESSION: Sinus tachycardia RBBB and LPFB Electronically Signed On 04-08-2024 08:56:00 EDT by Alen Hidalgo [facility] Electrophysiology studyon [facility] Laboratory - Chemistry and C hemistry - challengeon 04-08-2024 Glucose [Mass/Vol] 253 mg/dL High 70 - 100 mg/dL [facility] Glucose [Mass/Vol] 210 mg/dL High 70 - 100 mg/dL [facility] Magnesium [Mass/Vol] 1.8 mg/dL 1.6 - 2 .3 mg/dL [facility] MAGNESIUMon 04-08-2024 Magnesium [Mass/Vol] 1.8 mg/dL Normal 1.6-2.3 [facility] Comment on above: Performed By: #### L AB17, [id number], [id number] ####Clinical Resource Coordinator: GRISEL GARZA ([phone])[facility] ([facility])[address] [place] [address] No Panel Informationon 04-08 Interpretation and review of laboratory results Abnormal [facility] Performed by: [facility], [address] [place] [address] CLIA ID: [id number] [facility] Health P [place] 26 degrees [facility] [place] Interval 194 ms [facility] Health QRS [place] 93 degrees [facility] QRSD Interval 146 ms [facility] Healt h QT Interval 371 ms [facility] QTC Interval 482 ms [facility] T Wave [place] -72 degrees [facility] Sinus tachycardia RBBB and LPFB Nonspecific ST and T wave changes Electronically Signed On 04-08-2024 08:58:33 EDT by Alen Zurita MD - 04/08/2024 IMPRESSION: Sinus tachycardia RBBB and LPFB Nonspecific ST and T wave changes Electronically Signed On 04-08-2024 08:58:33 EDT by Alen [facility] P [place] 52 degrees [facility] [place] Interval 173 ms [facility] Health QRS [place] 95 degrees [facility] Health QRSD Interval 138 ms [facility] QT Interval 347 ms [facility] Health QTC Interval 478 ms [facility] Health T Wave [place] -70 degrees [facility] Health Sinus tachycardia RBBB and LPFB Nonspecific ST and T wave changes Electronically Signed On 04-08-2024 08:58:15 EDT by Alen Zurita MD - 04/08/2024 IMPRESSION: Sinus tachycardia RBBB and LPFB Nonspecific ST and T wave changes Electronically Signed On 04-08-2024 08:58:15 EDT by Alen Hernández [facility] Sinus tachycardia RBBB and LPFB Nonspecific ST and T wave changes Electronically Signed On 04-08-2024 08:57:47 EDT by Alen Zurita MD - 04/08/2024 IMPRESSION: Sinus tachycardia RBBB and LPFB Nonspecific ST and T wave changes Electronically Signed On 04-08-2024 08:57:47 EDT by Alen Hernández [facility] [employer] P [place] 40 degrees [facility] [place] Interval 204 ms [facility] Health QRS [place] 95 degrees [facility] Health QRSD Interval 141 ms [facility]alt [facility] QT Interval 362 ms [facility] Health QTC Interval 477 ms [facility] T Wave [place] -65 degrees [facility] Sinus tachycardia RBBB and LPFB Electronically Signed On 04-08-2024 08:56:00 EDT by Alen Zurita MD - 04/08/2024 IMPRESSION: Sinus tachycardia RBBB and LPFB Electronically Signed On 04-08-2024 08:56:00 EDT by Alen Hernández [facility] Interpretation and review of laboratory results Abnormal [facility] Performed by: [facility], [address] [place] [address] CLIA ID: [id number] [facility] Interpretation and review of laboratory results Normal [facility] No Panel InformationOrdered By: Alen Hernández on 04-08-2024 P [place] 42 degrees [facility] [employer] Work Phone: VT Interval 155 ms [email or web address] Work Phone: QRS [place] 91 degrees [email or web address] Work Phone: QRSD Interval 143 ms [facility] Work Phone: QT Interval 356 ms [email or web address] Work Phone: [phone] QTC Interval 474 ms [email or web address] Work Phone: T Wave [place] -64 degrees [email or web address] Work Phone: [email or web address] Work Phone: PHOSPHORUSon 04-08-2024 Phosphate [Mass/Vol] 3.4 mg/dL Normal 2.5-4.5 [facility] [employer] [facility] Comment on above: Performed By: #### L [id number], [id number], [id number] ####Clinical Resource Coordinator: GRISEL GARZA ([phone])[address] Phosphate [Moles/Vol]on 03-29 Phosphate [Mass/Vol] 3.4 mg/dL 2.5 - 4 .5 mg/dL [facility] Progress Noteon 04-08-2024 Progress Note Nutrition rescreen completed. Chart reviewed. Patient to be monitored and followed by the diet pc maintenance technician. .BOBBY Dugan Normal [facility] [employer] [facility] Progress Note - Attestation signed by Calvin [...] later today, d/w patient meds and f/u [facility] Heart & Vascular [facility] CCU PROGRESS NOTE Patient Name: Lito Gonzalez : 1950 Subjective: Lito Gonzalez is a 73 y.o. female with PMH paroxysmal atrial fibrillation, nonrheumatic aortic valve stenosis, DM, hypertension, RBBB and left posterior fascicular block that presented to [facility] on 04/06/2024 for TAVR procedure. Pre TAVR [...] HGBA1C, T (more content not included)... Normal [facility] Vital signson 04-08-2024 Heart rate 101 /min bpm [email or web address] Heart rate 113 /min bpm [place] [employer] Heart rate 104 /min bpm [facility] [employer] Vital signsOrdered By: Alen Hernández on 04-08-2024 Heart rate 107 /min bpm [email or web address] Work Phone: XR CHEST 2 VIEWSon 4 XR CHEST 2 VIEWS Patient Name: LITO GONZALEZ : 1950 [facility]#: [id number] Exam Date/Time: 04/08/2024 09:54 Procedure: XR CHEST [...] Electronically Signed Date/Time: 04/08/2024 12:12 PM EDT [facility] XR Chest 2 Viewson Recent pacemaker placement with intact leads. No procedural complication identified. Report Dictated on Electronically Signed By: Xiang Miranda MD Electronically Signed Date/Time: 04/08/2024 12:12 PM EDT [facility] Patient Name: LITO GONZALEZ : 1950 [...] spine and shoulders. No acute osseous findings. [facility] Xiang Miranda M D - 04/08/2024 [...] Electronically Signed Date/Time: 04/08/2024 12:12 PM EDT [facility] Radiology Study observation (narrative) [facility] XR Chest 2 ViewsOrdered By: Xiang Miranda on 04-08-2024 [facility] Work Phone: 36on 04-07-2024 36 scheduled Normal [facility] 36 Can I have an order for a 1 mo follow up echo please? Normal [facility] BASIC METABOLIC PANELon 03-29 Anion gap [Moles/Vol] 4 mmol/L Normal 3-13 [facility] Comment on above: Performed By: #### L AB15 #### Clinical Resource Coordinator: GRISEL GARZA ([phone]) [facility] ([facility]) [address] [place] [address] Calcium [Mass/Vol] 8.9 mg/dL Normal 8.4-10.4 [facility] Comment on above: Performed By: #### L AB15 #### Clinical Resource Coordinator: GRISEL GARZA ([id number]) [facility] ([facility] [address] [place] [address] [place] Chloride [Moles/Vol] 109 mmol/L High 98-107 [facility] Comment on above: Performed By: #### L AB15 #### Clinical Resource Coordinator: GRISEL GARZA ([id number]) [facility] [address] [place] [address] [place] CO2 [Moles/Vol] 23 mmol/L Normal 22-30 [facility] Comment on above: Performed By: #### L AB15 #### Clinical Resource Coordinator: GRISEL GARZA ([id number]) [facility] ([facility]) [address] [place] [address] [place] Creatinine [Mass/Vol] 0.79 mg/dL Normal 0.52-1.04 [facility] Comment on above: Performed By: #### L AB15 #### Clinical Resource Coordinator: GRISEL GARZA ([phone]) [facility] ([facility] [address] [place] [address] GLOMERULAR FILTRATION RATE ML/MIN/1.73 SQ M.PREDICTED 78.1 mL/min/1.73m*2 Normal >60.0 [facility] Comment on above: Result Comment: Calc ulation based on the Chronic Kidney Disease Epidemiology Collaboration (CKD-EPI) equation refit without adjustment for race Performed By: #### L AB15 #### Clinical Resource Coordinator: GRISEL GARZA ([id number]) [facility] ([facility]) [address] [place] [address] Glucose [Mass/Vol] 270 mg/dL High 70-100 [facility] Comment on above: Performed By: #### L AB15 #### Clinical Resource Coordinator: GRISEL GARZA ([id number]) [facility] ([facility]) [address] [place] [address] Potassium [Moles/Vol] 4.1 mmol/L Normal 3.5-5.1 [facility] Comment on above: Performed By: #### L AB15 #### Clinical Resource Coordinator: GRISEL GARZA ([id number]) [facility] [address] [place] [address] Sodium [Moles/Vol] 136 mmol/L Normal 135-145 [facility] Comment on above: Performed By: #### L AB15 #### Clinical Resource Coordinator: GRISEL GARAZ ([id number]) [facility] ([facility]) [address] [place] [address] Urea nitrogen [Mass/Vol] 20 mg/dL High 7-17 [facility] Comment on above: Performed By: #### L AB15 #### Clinical Resource Coordinator: GRISEL GARZA ([id number]) [facility] ([facility]) [address] [place] [address] Basic metabolic 1998 panelon 04-07-2024 Anion gap [Moles/Vol] 4 mmol/L 3 - 13 mmol/L [facility] Calcium [Mass/Vol] 8.9 mg/dL 8.4 - 10. 4 mg/dL [facility] Chloride [Moles/Vol] 109 mmol/L High 98 - 10 7 mmol/L [facility] CO2 [Moles/Vol] 23 mmol/L 22 - 30 mmol/L [facility] [employer] Creatinine [Mass/Vol] 0.79 mg/dL 0.52 - 1.04 mg/dL [facility] [employer] GFR/1.73 sq M.predicted (S/P/Bld) [Vol rate/Area] 78.1 mL/min - PINF [facility] [employer] Comment on above: Calculation based on the Chronic Kidney Disease Epidemiology Collaboration (CKD-EPI) equation refit without adjustment for race Glucose [Mass/Vol] 270 mg/dL High 70 - 100 mg/dL [facility] [employer] Interpretation and review of laboratory results Abnormal [facility] [employer] Potassium [Moles/Vol] 4.1 mmol/L 3.5 - 5.1 mmol/L [facility] [employer] Sodium [Moles/Vol] 136 mmol/L 135 - 145 mmol/L [facility] [employer] Urea nitrogen [Mass/Vol] 20 mg/dL High 7 - 17 mg/d L [facility] [employer] [facility] [employer] CARECOORDon 04-07-2024 [facility] Care Managment Initial Assessment Date: 04/07/2024 Patient Name: Lito Gonzalez : 1950 Patient Information Source of Information: Patient Cognition/Language: WFL - Within Functional Limits Permission given to speak with patient financial representative/[facility] [place] as indicated: Yes Confirmation of Payer [...] Referral for: Additional Information: Patient admitted to [facility] ICU s/p TAVR complicated by CHB today requiring PPM. Spoke with patient and at bedside, introduced self and role. Patient from home with , is using a walker for ambulation otherwise is independent, has PCP and prescription coverage, will have a ride home and denies discharge needs. Breonna Jimenez RN Normal [facility] CBC (HEMOGRAM)on 04-07-2024 Erythrocyte distribution width (RBC) [Ratio] 13.5 % Normal 11.5-15.0 [facility] Comment on above: Performed By: #### L [id number] #### Clinical Resource Coordinator: GRISEL GARZA ([id number]) [address] Hematocrit (Bld) [Volume fraction] 40.5 % Normal 35.0-47.0 [facility] Comment on above: Performed By: #### L [id number] #### Clinical Resource Coordinator: GRISEL [id number]) [address] Hemoglobin (Bld) [Mass/Vol] 13.1 g/dL Normal 11.7-16.0 [facility] Comment on above: Performed By: #### L [id number] #### Clinical Resource Coordinator: GRISEL [id number]) [address] MCH (RBC) [Entitic mass] 30.1 pg Normal 26.0-34.0 [facility] Comment on above: Performed By: #### L AB294 #### Clinical Resource Coordinator: GRISEL [id number]) [address] [address] [place] MCHC 32.3 % Normal 30.5-36.0 [facility] Comment on above: Performed By: #### L AB294 #### Clinical Resource Coordinator: GRISEL GARZA ([id number]) [facility] ([facility]) [address] [place] [address] MCV (RBC) [Entitic vol] 93.1 fL Normal 77.0-99.0 S [facility] Comment on above: Performed By: #### L AB294 #### Clinical Resource Coordinator: GRISEL GARZA ([id number]) [facility] ([facility]) [address] [place] [address] Platelet mean volume (Bld) [Entitic vol] 11.5 fL Normal 9.0-12.7 [facility] Comment on above: Performed By: #### L AB294 #### Clinical Resource Coordinator: GRISEL GARZA ([id number]) [facility] ([facility]) [address] [place] [address] Platelets (Bld) [#/Vol] 168 10*3/uL Normal 140-440 [facility] Comment on above: Performed By: #### L AB294 #### Clinical Resource Coordinator: GRISEL GARZA ([phone]) [facility] ([facility]) [address] [place] [address] RBC (Bld) [#/Vol] 4.35 10*6/uL Normal 3.80-5.20 [facility] Comment on above: Performed By: #### L [id number] #### Clinical Resource Coordinator: GRISEL GARZA ([id number]) [facility] ([facility]) [address] [place] [address] WBC (Bld) [#/Vol] 9.3 10*3/uL Normal 3.6-10.7 [facility] Comment on above: Performed By: #### L AB294 #### Clinical Resource Coordinator: GRISEL GARZA ([id number]) [facility] ([facility]) [address] [place] [address] CBC panel Auto (Bld)on 04-07 Erythrocyte distribution width (RBC) [Ratio] 13.5 % 11.5 - 15.0 % [facility] Hematocrit (Bld) [Volume fraction] 40.5 % 35.0 - 47.0 % [facility] Hemoglobin (Bld) [Mass/Vol] 13.1 g/dL 11.7 - 16.0 g/dL [facility] Interpretation and review of laboratory results Normal [facility] MCH (RBC) [Entitic mass] 30.1 pg 26. 0 - 34.0 pg [facility] MCHC (RBC) [Mass/Vol] 32.3 % 30.5 - 36.0 % [facility] MCV (RBC) [Entitic vol] 93.1 fL 77.0 - 99.0 fL [facility] Platelet mean volume (Bld) [Entitic vol] 11.5 fL 9.0 - 12.7 fL [facility] Platelets (Bld) [#/Vol] 168 10*3/uL 140 - 440 10*3/uL [facility] RBC (Bld) [#/Vol] 4.35 10*6/uL 3.80 - 5.2 0 10*6/uL [facility] WBC (Bld) [#/Vol] 9.3 10*3/uL 3.6 - 10.7 10*3/uL [facility] Consulton 04-07-2024 Consult [facility] Heart & Vascular [place] [facility] Cardiology /Electrophysiology Consult Note Reason for Consult/Chief Complaint: Complete heart block Referring provider: Ayah Established front end software developer: Ayah History of Present Illness: Lito Gonzalez [...] MD (F (more content not included)... Normal [facility] Consult [facility] Heart & Vascular [place] [facility] Cardiology /Electrophysiology Consult Note Reason for Consult/Chief Complaint: AV Block s/p TAVR Established front end software developer: Ayah History of Present Illness: Lito Gonzalez [...] dilated ascending (more content not included)... Normal [facility] ECG 12-LEADon 04-07-2024 ECG 12-LEAD IMPRESSION: Sinus arrhythmia RBBB and LPFB Nonspecific ST and T wave changes Electronically Signed On 04-07-2024 10:38:52 EDT by Charles Dunaway Normal [facility] ECG 12-LEAD IMPRESSION: Sinus rhythm RBBB and LPFB Nonspecific ST and T wave changes Electronically Signed On 04-07-2024 10:38:42 EDT by Charles Dunaway [facility] IDNon 04-07-2024 IDN Problem: Cardiovascular - Adult Goal: Maintains optimal cardiac output and hemodynamic stability Outcome: Progressing Goal: Absence of cardiac dysrhythmias or at baseline Outcome: Progressing Problem: Hematologic - Adult Goal: Maintains hematologic stability Outcome: Progressing Normal [facility] Laboratory - Chemistry and C hemistry - challengeon 04-07-2024 Glucose [Mass/Vol] 162 mg/dL High 70 - 100 mg/dL [facility] [employer] Glucose [Mass/Vol] 222 mg/dL High 70 - 100 mg/dL [facility] [employer] Glucose [Mass/Vol] 208 mg/dL High 70 - 100 mg/dL [facility] [employer] No Panel Informationon 04-07 Interpretation and review of laboratory results Abnormal [facility] [employer] Performed by: [facility], [address] [place] [address] CLIA ID: [id number] [facility] Interpretation and review of laboratory results Abnormal [facility] [employer] Performed by: [facility], [address] [place] [id number] CLIA ID: [id number] [facility] Health [facility] Sinus arrhythmia RBBB and LPFB Nonspecific ST and T wave changes Electronically Signed On 04-07-2024 10:38:52 EDT by Charles Burgess MD - 04/07/2024 IMPRESSION: Sinus arrhythmia RBBB and LPFB Nonspecific ST and T wave changes Electronically Signed On 04-07-2024 10:38:52 EDT by Charles Dunaway [facility] [employer] P [place] 35 degrees [facility] VT Interval 174 ms [facility] QRS [place] 94 degrees [facility] QRSD Interval 143 ms [facility] QT Interval 375 ms [facility] [employer] QTC Interval 483 ms [facility] [employer] T Wave [place] -67 degrees [facility] [employer] Sinus rhythm RBBB and LPFB Nonspecific ST and T wave changes Electronically Signed On 04-07-2024 10:38:42 EDT by Charles Burgess MD - 04/07/2024 IMPRESSION: Sinus rhythm RBBB and LPFB Nonspecific ST and T wave changes Electronically Signed On 04-07-2024 10:38:42 EDT by Charles Dunaway [facility] Interpretation and review of laboratory results Abnormal [facility] [employer] Performed by: [facility], [address] [place] [id number] CLIA ID: [id number] [facility] [employer] [facility] [employer] No Panel InformationOrdered By: Charles Dunaway on 04-07-2024 P [place] 51 degrees [facility] Work Phone: VT Interval 194 ms [facility] Work Phone: QRS [place] 114 degrees [facility] Work Phone: QRSD Interval 144 ms [facility] Work Phone: QT Interval 406 ms [facility] Work Phone: QTC Interval 461 ms [facility] Work Phone: T Wave [place] 208 degrees [facility] Work Phone: [facility] Work Phone: Nursing Noteon 04-07-2024 Nursing [...] lab for Pacemaker placement. Consent signed. Normal [facility] Progress Noteon 04-07-2024 Progress Note Spoke with Mr. Jagdish kaiser regarding patient status. Questions answered. He will be here around 1-2 p today. He is aware that she will likely be going for pacemaker here shortly. Normal [facility] US Heart TransthoracicOrdere d By: Smith Nobles on 04-07-2024 Ascending Aorta 3.5 cm [facility] Work Phone: Ascending Aorta Index 1.75 cm/m2 [facility] Work Phone: AV Area by Peak Velocity 1.3 cm2 [facility] Work Phone: AV Area by VTI 1.5 cm2 [facility] Work Phone: AV Mean Gradient 12 mmHg [facility] alth Work Phone: AV Mean Velocity 1.6 m/s [facility] Work Phone: AV Peak Gradient 21 mmHg [facility] Work Phone: [phone] AV Peak Velocity 2.3 m/s [facility] Work Phone: AV Velocity Ratio 0.52 [facility] Work Phone: [phone] AV VTI 37.1 cm [facility] Work Phone: [phone] BENITA/BSA Peak Velocity 0.7 cm2/m2 [facility] Work Phone: [phone] BENITA/BSA VTI 0.8 cm2/m2 [facility] Work Phone: [phone] EF BP 66 % 55 - 100 % [facility] Work Phone: Fractional Shortening 2D 30 % 28 - 44 % [facility] [employer] Work Phone: Interpretation and review of laboratory results Abnormal [facility] [employer] Work Phone: [phone] IVC Diameter 1.7 cm [facility] Work Phone: IVSd 1.4 cm Abnormal 0.6 - 0.9 cm [facility] [employer] Work Phone: [phone] LA Volume 2C 44 mL 22 - 52 mL [facility] [employer] Work Phone: [phone] LA Volume 4C 63 mL Abnormal 22 - 52 mL [facility] [employer] Work Phone: [phone] LA Volume A/L 62 mL [facility] Work Phone: LA Volume BP 59 mL Abnormal 22 - 52 mL [facility] [employer] Work Phone: LA Volume Index 2C 22 mL/m2 16 - 34 mL/m2 [facility] Work Phone: LA Volume Index 4C 32 mL/m2 16 - 34 mL/m2 [facility] Work Phone: [phone] LA Volume Index A/L 31 mL/m2 16 - 34 mL/m2 [facility] [employer] Work Phone: LA Volume Index BP 30 ml/m2 16 - 34 ml/m2 [facility] [employer] Work Phone: [phone] LV E' Lateral Velocity 8 cm/s [facility] Work Phone: LV EDV A2C 56 mL [facility] Work Phone: LV EDV A4C 62 mL [facility] Work Phone: LV EDV BP 63 mL 56 - 104 mL [facility] Work Phone: LV EDV Index A2C 28 mL/m2 [facility] Work Phone: LV EDV Index A4C 31 mL/m2 [facility] Work Phone: LV EDV Index BP 32 mL/m2 [facility] Work Phone: LV Ejection Fraction A2C 68 % [facility] Work Phone: LV Ejection Fraction A4C 69 % [facility] [employer] Work Phone: LV ESV A2C 18 mL [facility] [employer] Work Phone: LV ESV A4C 20 mL [facility] [employer] Work Phone: LV ESV BP 21 mL 19 - 49 mL [facility] [employer] Work Phone: LV ESV Index A2C 9 mL/m2 [facility] Work Phone: LV ESV Index A4C 10 mL/m2 [facility] Work Phone: LV ESV Index BP 11 mL/m2 [facility] Work Phone: LV Mass 2D 175.8 g Abnormal 67 - 162 g [facility] [employer] Work Phone: LV Mass 2D Index 87.9 g/m2 43 - 95 g/m2 [facility] [employer] Work Phone: LV RWT Ratio 0.55 [facility] [employer] Work Phone: LVIDd 4.0 cm 3.9 - 5.3 cm [facility] [employer] Work Phone: LVIDd Index 2.00 cm/m2 [facility] [employer] Work Phone: LVIDs 2.8 cm [facility] [employer] Work Phone: LVIDs Index 1.40 cm/m2 [facility] [employer] Work Phone: LVOT Area 2.5 cm2 [facility] [employer] Work Phone: LVOT Cardiac Output 6.8 liter/minute [facility] Work Phone: LVOT Diameter 1.8 cm [facility] Work Phone: LVOT Mean Gradient 3 mmHg [facility] [employer] Work Phone: LVOT Peak Gradient 5 mmHg [facility] [employer] Work Phone: LVOT Peak Velocity 1.2 m/s [facility] [employer] Work Phone: [phone] LVOT Stroke Volume Index 27.2 mL/m2 [facility] [employer] Work Phone: LVOT SV 54.4 ml [facility] [employer] Work Phone: LVOT VTI 21.4 cm [facility] [employer] Work Phone: LVOT:AV VTI Index 0.58 [facility] Work Phone: LVPWd 1.1 cm Abnormal 0.6 - 0.9 cm [facility] [employer] Work Phone: Pulm Vein A Duration 108.5 ms [facility] [employer] Work Phone: [phone] Pulm Vein A Velocity 0.4 m/s [facility] [employer] Work Phone: [phone] Pulm Vein Peak D Velocity 0.5 m/s [facility] [employer] Work Phone: [phone] Pulm Vein Peak S Velocity 0.4 m/s [facility] [employer] Work Phone: Pulm Vein S/D 0.8 [facility] Work Phone: RA Area 4C 41.8 mL [facility] [employer] Work Phone: RA Area 4C 40.8 mL [facility] [employer] Work Phone: [phone] RV Basal Dimension 2.5 cm [facility] [employer] Work Phone: RV Free Wall Peak S' 11 cm/s [facility] [employer] Work Phone: RV Longitudinal Dimension 4.8 cm [facility] [employer] Work Phone: [phone] RV Mid Dimension 2.[address] [facility] Work Phone: TAPSE 2.3 cm 1.7 cm [email or web address] Work Phone: [email or web address] Work Phone: US Heart Transthoracicon Aortic Valve: [...] on 04-07-2024 Heart rate 77 /min bpm [email or web address] Work Phone: Vital signson 04-07-2024 Heart rate 99 /min bpm [email or web address] ABO and Rh group Confirm Nom (Bld)on 04-06-2024 ABO group Nom (Bld) O [facility] D Ag Ql [facility]RBC) [facility] BASIC METABOLIC PANELon Anion gap [Moles/Vol] 4 mmol/L Normal 3-13 [facility] Comment on above: Performed By: #### L AB15 #### Clinical Resource Coordinator: GRISEL GARZA ([phone]) [facility] ([facility]) [address] [place] [address] Calcium [Mass/Vol] 7.7 mg/dL Low 8.4-10.4 [facility] Comment on above: Performed By: #### L AB15 #### Clinical Resource Coordinator: GRISEL GARZA ([phone]) [facility] ([facility]) [address] [place] [address] [place] Chloride [Moles/Vol] 112 mmol/L High 98-107 [facility] Comment on above: Performed By: #### L AB15 #### Clinical Resource Coordinator: GRISEL GARZA ([phone]) [facility] ([facility]) [address] [place] [address] [place] CO2 [Moles/Vol] 21 mmol/L Low 22-30 [facility] Comment on above: Performed By: #### L AB15 #### Clinical Resource Coordinator: GRISEL GARZA ([phone]) [facility]) [address] [place] [address] Creatinine [Mass/Vol] 0.55 mg/dL Normal 0.52-1.04 [facility] Comment on above: Performed By: #### L AB15 #### Clinical Resource Coordinator: GRISEL GARZA ([phone]) [facility] ([facility]) [address] [place] [address] [place] GLOMERULAR FILTRATION RATE ML/MIN/1.73 SQ M.PREDICTED >90.0 Normal >60.0 [facility] Comment on above: Result Comment: Calc ulation based on the Chronic Kidney Disease Epidemiology Collaboration (CKD-EPI) equation refit without adjustment for race Performed By: #### L AB15 #### Clinical Resource Coordinator: GRISEL GARZA ([phone]) [facility] ([facility] [address] [place] [address] Glucose [Mass/Vol] 158 mg/dL High 70-[address] [facility] Comment on above: Performed By: #### L AB15 #### Clinical Resource Coordinator: GRISEL GARZA ([phone]) [facility] ([facility]) [address] [place] [address] Potassium [Moles/Vol] 3.4 mmol/L Low 3.5-5.1 [facility] Comment on above: Performed By: #### L AB15 #### Clinical Resource Coordinator: GRISEL GARZA ([phone]) [facility] ([facility]) [address] [place] [address] Sodium [Moles/Vol] 137 mmol/L Normal 135-[address] [facility] Comment on above: Performed By: #### L AB15 #### Clinical Resource Coordinator: GRISEL GARZA ([phone]) [facility] ([facility]) [address] [place] [address] Urea nitrogen [Mass/Vol] 17 mg/dL Normal 7-[address] [facility] Comment on above: Performed By: #### L AB15 #### Clinical Resource Coordinator: GRISEL GARZA ([phone]) [facility]) [address] [place] [address] BLOOD TYPE AND SCREEN GELon 04-06-2024 ABO GROUPING O Normal [facility] Comment on above: Performed By: #### L AB276 ####Clinical Resource Coordinator: GRISEL GARZA ([phone])[facility] ([facility])[address] [place] [address] RH TYPE IN BLOOD Negative Normal [facility] Comment on above: Performed By: #### L AB276 ####Clinical Resource Coordinator: GRISEL GARZA ([phone])[facility] ([facility])[address] [place] [address] Basic metabolic 1998 panelon 04-06-2024 Anion gap [Moles/Vol] 4 mmol/L 3 - 13 mmol/L [facility] Calcium [Mass/Vol] 7.7 mg/dL Low 8.4 - 10. 4 mg/dL [facility] Chloride [Moles/Vol] 112 mmol/L High 98 - 10 7 mmol/L [facility] CO2 [Moles/Vol] 21 mmol/L Low 22 - 30 mmol/L [facility] Creatinine [Mass/Vol] 0.55 mg/dL 0.52 - 1.04 mg/dL [facility] GFR/1.73 sq M.predicted (S/P/Bld) [Vol rate/Area] - PINF [facility] Comment on above: Calculation based on the Chronic Kidney Disease Epidemiology Collaboration (CKD-EPI) equation refit without adjustment for race Glucose [Mass/Vol] 158 mg/dL High 70 - 100 mg/dL [facility] Interpretation and review of laboratory results Abnormal [facility] Potassium [Moles/Vol] 3.4 mmol/L Low 3.5 - 5.1 mmol/L [facility] Sodium [Moles/Vol] 137 mmol/L 135 - 145 mmol/L [facility] Urea nitrogen [Mass/Vol] 17 mg/dL 7 - 17 mg/d L [facility] Blood type and Crossmatch pa bill (Bld)on 04-06-2024 ABO group Nom (Bld) O [facility] Blood group antibody screen GEL Ql Negative [facility] D Ag Ql (RBC) Negative [facility] CBC (HEMOGRAM)on 04-06-2024 Erythrocyte distribution width (RBC) [Ratio] 13.5 % Normal 11.5-15.0 [facility] Comment on above: Performed By: #### L AB294 ####Clinical Resource Coordinator: GRISEL GARZA ([phone])[address] Hematocrit (Bld) [Volume fraction] 36.1 % Normal 35.0-47.0 [facility] Comment on above: Performed By: #### L AB294 ####Clinical Resource Coordinator: GRISEL GARZA ([phone])[address] Hemoglobin (Bld) [Mass/Vol] 11.7 g/dL Normal 11.7-16.0 [facility] Comment on above: Performed By: #### L AB294 ####Clinical Resource Coordinator: GRISEL GARZA ([phone])[facility] ([facility])[address] [place] [address] MCH (RBC) [Entitic mass] 30.4 pg Normal 26.0-34.[address] [facility] Comment on above: Performed By: #### L AB294 ####Clinical Resource Coordinator: GRISEL GARZA ([phone])[facility])[address] [place] [address] MCHC 32.4 % Normal 30.5-36.[address] [facility] Comment on above: Performed By: #### L AB294 ####Clinical Resource Coordinator: GRISEL GARZA ([phone])[facility])[address] [place] [address] MCV (RBC) [Entitic vol] 93.8 fL Normal 77.0-99.0 S [facility] Comment on above: Performed By: #### L AB294 ####Clinical Resource Coordinator: GRISEL GARZA ([phone])[facility] ([facility])[address] [place] [address] Platelet mean volume (Bld) [Entitic vol] 11.6 fL Normal 9.0-12.[address] [facility] Comment on above: Performed By: #### L AB294 ####Clinical Resource Coordinator: GRISEL GARZA ([phone])[facility])[address] [place] [address] Platelets (Bld) [#/Vol] 156 10*3/uL Normal 140-[address] [facility] Comment on above: Performed By: #### L AB294 ####Clinical Resource Coordinator: GRISEL GARZA ([phone])[facility])[address] [place] [address] RBC (Bld) [#/Vol] 3.85 10*6/uL Normal 3.80-5.[address] [facility] Comment on above: Performed By: #### L AB294 ####Clinical Resource Coordinator: GRISEL GARZA ([phone])[facility])[address] [place] [address] WBC (Bld) [#/Vol] 7.2 10*3/uL Normal 3.6-10.7 [facility] Comment on above: Performed By: #### L AB294 ####Clinical Resource Coordinator: GRISEL GARZA ([phone])[facility] ([facility])[address] [place] [address] CBC panel Auto (Bld)on 04-06 Erythrocyte distribution width (RBC) [Ratio] 13.5 % 11.5 - 15.0 % [facility] Hematocrit (Bld) [Volume fraction] 36.1 % 35.0 - 47.0 % [facility] Hemoglobin (Bld) [Mass/Vol] 11.7 g/dL 11.7 - 16.0 g/dL [facility] Interpretation and review of laboratory results Normal [facility] MCH (RBC) [Entitic mass] 30.4 pg 26. 0 - 34.0 pg [facility] MCHC (RBC) [Mass/Vol] 32.4 % 30.5 - 36.0 % [facility] MCV (RBC) [Entitic vol] 93.8 fL 77.0 - 99.0 fL [facility] Platelet mean volume (Bld) [Entitic vol] 11.6 fL 9.0 - 12.7 fL [facility] Platelets (Bld) [#/Vol] 156 10*3/uL 140 - 440 10*3/uL [facility] RBC (Bld) [#/Vol] 3.85 10*6/uL 3.80 - 5.2 0 10*6/uL [facility] WBC (Bld) [#/Vol] 7.2 10*3/uL 3.6 - 10.7 10*3/uL [facility] Cardiac catheterization stud yon 04-06-2024 Successful TAVR [...] Via the right femoral vein, a 6 Macanese sheath was placed and temporary pacing wire was placed into the RV apex with appropriate capture, in addition sterile tubing was attached and given the anesthesia for central access. Via right radial artery, a 6-Macanese sheath was placed and the pigtail catheter was placed into the aortic annulus with confirmation the implant angle. Via the right femoral artery, a 6-Macanese sheath was placed. The patient was then heparinized. Next, two Perclose devices were used using the pre-close strategy. A Super Stiff wire was then placed through the second Perclose into the descending aorta. Then, a 14-Macanese Makenzie E-sheath was introduced over the wire [...] care of your patient while hospitalized at [facility]. I will continue to follow along while hospitalized. Please do not hesitate to call with any questions. [facility] Cardiac catheterization stud yOrdered By: Srinivasa Poon on 04-06-2024 [facility] [employer] Work Phone: IDNon 04-06-2024 IDN The patient [...] include continue to reinforce and monitor. Normal [facility] Laboratory - Chemistry and C hemistry - challengeon 04-06-2024 Glucose [Mass/Vol] 239 mg/dL High 70 - 100 mg/dL [facility] [employer] Glucose [Mass/Vol] 166 mg/dL High 70 - 100 mg/dL [facility] [employer] Glucose [Mass/Vol] 174 mg/dL High 70 - 100 mg/dL [facility] [employer] Glucose [Mass/Vol] 253 mg/dL High 70 - 100 mg/dL [facility] [employer] No Panel Informationon 04-06 Interpretation and review of laboratory results Abnormal [facility] [employer] Performed by: [facility], [address] [place] [address] CLIA ID: [id number] [facility] [employer] [facility] Interpretation and review of laboratory results Abnormal [facility] Performed by: [facility], [address] [place] [address] CLIA ID: [id number] [facility] [employer] [facility] Interpretation and review of laboratory results Abnormal [facility] Performed by: [facility], [address] [place] [address] CLIA ID: [id number] [facility] [employer] [facility] Interpretation and review of laboratory results Abnormal [facility] Performed by: [facility], [address] [place] [address] CLIA ID: [id number] [facility] Nursing Noteon 04-06-[address] Hernandez made aware of MBS 253 new orders received. Normal [facility] Op Noteon 04-06-2024 Op Note [...] Via the right femoral vein, a 6 Macanese sheath was placed and temporary pacing wire was placed into the RV apex with appropriate capture, in addition sterile tubing was attached and given the anesthesia for central access. Via right radial artery, a 6-Macanese sheath was placed and the pigtail catheter was placed into the aortic annulus with confirmation the implant angle. Via the right femoral artery, a 6-Macanese sheath was placed. The patient was then heparinized. Next, two Perclose devices were used using the pre-close strategy. A Super Stiff wire was then placed through the second Perclose into the descending aorta. Then, a 14-Macanese Makenzie E-sheath was introduced over the wire [...] minimal blood loss. No immediate complications. Normal [employer] [facility] US Heart TransthoracicOrdere d By: Alejandro Walls on 04-06-2024 AV Area (Pre-TAVR) 0.5 cm2 [facility] Work Phone: AV Area by Peak Velocity 1.7 cm2 [facility] Work Phone: AV Area by VTI 1.7 cm2 [facility] th Work Phone: AV Mean Gradient 4 mmHg [facility] Work Phone: AV Mean Gradient (Pre-TAVR) 46 mmHg [facility] Work Phone: AV Mean Velocity 0.9 m/s [facility] Work Phone: AV Peak Gradient 7 mmHg [facility] Work Phone: AV Peak Gradient (Pre-TAVR) 69 mmHg [facility] Work Phone: AV Peak Velocity 1.3 m/s [facility] Work Phone: AV Peak Velocity (Pre-TAVR) 4.1 m/s [facility] Work Phone: AV Velocity Ratio 0.62 [facility] Work Phone: AV VTI 24.9 cm [facility] Work Phone: BENITA/BSA Peak Velocity 0.8 cm2/m2 [facility] Work Phone: BENITA/BSA VTI 0.8 cm2/m2 [facility] Work Phone: EF BP 69 % 55 - 100 % [facility] Work Phone: Fractional Shortening 2D 20 % 28 - 44 % [facility] Work Phone: Interpretation and review of laboratory results Abnormal [facility] Work Phone: IVSd 1.4 cm Abnormal 0.6 - 0.9 cm [facility] Work Phone: LV EDV A2C 49 mL [facility] Work Phone: LV EDV A4C 83 mL [facility] Work Phone: LV EDV BP 69 mL 56 - 104 mL [facility] Work Phone: LV EDV Index A2C 24 mL/m2 [facility] Work Phone: LV EDV Index A4C 41 mL/m2 [facility] Work Phone: LV EDV Index BP 34 mL/m2 [facility] Work Phone: LV Ejection Fraction A2C 63 % [facility] Work Phone: LV Ejection Fraction A4C 74 % [facility] [employer] Work Phone: LV ESV A2C 18 mL [facility] Work Phone: LV ESV A4C 22 mL [facility] Work Phone: LV ESV BP 22 mL 19 - 49 mL [facility] Work Phone: LV ESV Index A2C 9 mL/m2 [facility] Work Phone: LV ESV Index A4C 11 mL/m2 [facility] Work Phone: LV ESV Index BP 11 mL/m2 [facility] lt Work Phone: LV Mass 2D 209.0 g Abnormal 67 - 162 g [facility] Work Phone: LV Mass 2D Index 103.4 g/m2 Abnormal 43 - 95 g/m2 [facility] Work Phone: LV RWT Ratio 0.70 [facility] Work Phone: LVIDd 4.0 cm 3.9 - 5.3 cm [facility] [employer] Work Phone: LVIDd Index 1.98 cm/m2 [facility] [employer] Work Phone: LVIDs 3.2 cm [facility] [employer] Work Phone: LVIDs Index 1.58 cm/m2 [facility] [employer] Work Phone: LVOT Area 2.8 cm2 [facility] [employer] Work Phone: LVOT Cardiac Output 2.8 liter/minute [facility] [employer] Work Phone: LVOT Diameter 1.9 cm [facility] Work Phone: LVOT Mean Gradient 1 mmHg [facility] [employer] Work Phone: LVOT Peak Gradient 2 mmHg [facility] [employer] Work Phone: LVOT Peak Velocity 0.8 m/s [facility] [employer] Work Phone: LVOT Stroke Volume Index 20.5 mL/m2 [facility] [employer] Work Phone: LVOT SV 41.4 ml [facility] [employer] Work Phone: LVOT VTI 14.6 cm [facility] [employer] Work Phone: LVOT:AV VTI Index 0.59 [facility] Work Phone: LVPWd 1.4 cm Abnormal 0.6 - 0.9 cm [facility] [employer] Work Phone: [facility] [employer] Work Phone: Heart Transthoracicon Left Ventricle: Left [...] Echo Additional Conclusions Technically difficult study. CV [facility] 36on 04-01-2024 36 Patient called me back and requested me to fax lab orders to [facility]. [phone] I faxed CBC and CMP orders only.Confirmed She is going today. Normal [facility] 36 Spoke with patient and she will have CMP and CBC completed at [facility] today. Jamie Godinez to fax lab orders Normal [facility] CBC W Auto Differential pane l (Bld)on 04-01-2024 Basophils (Bld) [#/Vol] 0.10 10*3/uL Normal <0.11 [facility] Comment on above: Order Comment: Speci men Type: BLOOD SPECIMENOrdering Facility: [facility] Address: [address] [place] [address] Performed By: #### 5 7021-8 ####[facility] [id number] [address] [address] [place] Basophils/100 WBC (Bld) 1.2 % Normal [facility] Comment on above: Order Comment: Speci men Type: BLOOD SPECIMENOrdering Facility: [facility] Address: [address] [place] [address] Performed By: #### 5 7021-8 ####[facility] LABCL[facility] [id number] [place] [address] [place] Differential cell count method Nom (Bld) Auto Normal [facility] Comment on above: Order Comment: Speci men Type: BLOOD SPECIMENOrdering Facility: [facility] Address: [address] [place] [address] Performed By: #### 5 7021-8 ####[facility] LAB[facility] [id number] [place] [address] [place] Eosinophils (Bld) [#/Vol] 0.44 10*3/uL Normal <0.46 [facility] Comment on above: Order Comment: Speci men Type: BLOOD SPECIMENOrdering Facility: [facility] Address: [address] [place] [address] Performed By: #### 5 7021-8 ####[facility] LABCLIA [id number] [facility] [place] [id number] [place] Eosinophils/100 WBC (Bld) 5.1 % Normal [facility] Comment on above: Order Comment: Speci men Type: BLOOD SPECIMENOrdering Facility: [facility] Address: [address] [place] [address] Performed By: #### 5 7021-8 ####[facility]IA [id number] [facility] [place] [id number] [place] Erythrocyte distribution width (RBC) [Ratio] 13.4 % Normal 11.5-15.0 [facility] Comment on above: Order Comment: Speci men Type: BLOOD SPECIMENOrdering Facility: [facility] Address: [address] [place] [address] Performed By: #### 5 7021-8 ####[facility] LABCLIA [id number] [facility] [place] [address] [place] Hematocrit (Bld) [Volume fraction] 45.5 % Normal 36.0-46.0 [facility] Comment on above: Order Comment: Speci men Type: BLOOD SPECIMENOrdering Facility: [facility] Address: [address] [place] [address] Performed By: #### 5 7021-8 ####[facility]CL[facility] [id number] [place] [address] [place] Hemoglobin (Bld) [Mass/Vol] 14.6 g/dL Normal 11.5-15.5 [facility] Comment on above: Order Comment: Speci men Type: BLOOD SPECIMENOrdering Facility: [facility] Address: [address] [place] [address] Performed By: #### 5 7021-8 ####[facility] [id number] [facility] [place] [address] [place] Immature granulocytes (Bld) [#/Vol] 0.03 10*3/uL Normal <0.10 [facility] Comment on above: Order Comment: Speci men Type: BLOOD SPECIMENOrdering Facility: [facility] Address: [address] [place] [address] Performed By: #### 5 7021-8 ####[facility] [id number] [place] [address] [place] Immature granulocytes/100 WBC (Bld) 0.4 % Normal [facility] Comment on above: Order Comment: Speci men Type: BLOOD SPECIMENOrdering Facility: [facility] Address: [address] [place] [address] Performed By: #### 5 7021-8 ####[facility]CLIA [id number] [place] [address] [place] Lymphocytes (Bld) [#/Vol] 2.30 10*3/uL Normal 1.00-4.00 [facility] Comment on above: Order Comment: Speci men Type: BLOOD SPECIMENOrdering Facility: [facility] Address: [address] [place] [address] Performed By: #### 5 7021-8 ####[facility]IA [id number] [place] [address] [place] Lymphocytes/100 WBC (Bld) 26.8 % Normal [facility] Comment on above: Order Comment: Speci men Type: BLOOD SPECIMENOrdering Facility: [facility] Address: [address] [place] [address] Performed By: #### 5 7021-8 ####[facility] LABCLIA [id number] [place] [address] [place] MCH (RBC) [Entitic mass] 31.1 pg Normal 26.0-34.0 [facility] Comment on above: Order Comment: Speci men Type: BLOOD SPECIMENOrdering Facility: [facility] Address: [address] [place] [address] Performed By: #### 5 7021-8 ####[facility] LABCLIA [id number] [place] [address] [place] MCHC (RBC) [Mass/Vol] 32.1 g/dL Normal 30.5-36.0 [facility] Comment on above: Order Comment: Speci men Type: BLOOD SPECIMENOrdering Facility: [facility] Address: [address] [place] [address] Performed By: #### 5 7021-8 ####[facility]CLIA [id number] [place] [address] [place] MCV (RBC) [Entitic vol] 97.0 fL Normal 80.0-100.0 [facility] Comment on above: Order Comment: Speci men Type: BLOOD SPECIMENOrdering Facility: [facility] Address: [address] [place] [address] Performed By: #### 5 7021-8 ####[facility]CL[facility] [id number] [facility] [address] [address] [place] Monocytes (Bld) [#/Vol] 0.88 10*3/uL High <0.87 [facility] Comment on above: Order Comment: Speci men Type: BLOOD SPECIMENOrdering Facility: [facility] Address: [address] [place] [address] Performed By: #### 5 7021-8 ####[facility]CLIA [id number] [facility] [address] [address] [place] Monocytes/100 WBC (Bld) 10.3 % Normal [facility] Comment on above: Order Comment: Speci men Type: BLOOD SPECIMENOrdering Facility: [facility] Address: [address] [place] [address] Performed By: #### 5 7021-8 ####[facility] LABCLIA [id number] [address] [address] [place] Neutrophils (Bld) [#/Vol] 4.82 10*3/uL Normal 1.45-7.50 [facility] Comment on above: Order Comment: Speci men Type: BLOOD SPECIMENOrdering Facility: [facility] Address: [address] [place] [address] Performed By: #### 5 7021-8 ####[facility] LABCLIA [id number] [place] [id number] [place] Neutrophils/100 WBC (Bld) 56.2 % Normal [facility] Comment on above: Order Comment: Speci men Type: BLOOD SPECIMENOrdering Facility: [facility] Address: [address] [place] [address] Performed By: #### 5 7021-8 ####[facility] LABCLIA [id number] [place] [address] [place] Nucleated RBC (Bld) [#/Vol] 10*3/uL Normal <0.01 [facility] Comment on above: Order Comment: Speci men Type: BLOOD SPECIMENOrdering Facility: [facility] Address: [address] [place] [address] Performed By: #### 5 7021-8 ####[facility] LABCLIA [id number] [place] [address] [place] Nucleated RBC/100 WBC (Bld) [Ratio] 0.0 /100 WBC Normal [facility] Comment on above: Order Comment: Speci men Type: BLOOD SPECIMENOrdering Facility: [facility] Address: [address] [place] [address] Performed By: #### 5 7021-8 ####[facility] LABCLIA [id number] [place] [address] [place] Platelet mean volume (Bld) [Entitic vol] 12.0 fL Normal 9.0-12.7 [facility] Comment on above: Order Comment: Speci men Type: BLOOD SPECIMENOrdering Facility: [facility] Address: [address] [place] [address] Performed By: #### 5 7021-8 ####[facility] LABCLIA [id number] [place] [address] [place] Platelets (Bld) [#/Vol] 199 10*3/uL Normal 150-400 [facility] Comment on above: Order Comment: Speci men Type: BLOOD SPECIMENOrdering Facility: [facility] Address: [address] [place] [address] Performed By: #### 5 7021-8 ####[facility] LABCLIA [id number] [place] [address] [place] RBC (Bld) [#/Vol] 4.69 10*6/uL Normal 3.90-5.20 [facility] Comment on above: Order Comment: Speci men Type: BLOOD SPECIMENOrdering Facility: [facility] Address: [address] [place] [address] Performed By: #### 5 7021-8 ####[facility] LABCLIA [id number] [place] [address] [place] WBC (Bld) [#/Vol] 8.57 10*3/uL Normal 3.70-11.00 [facility] Comment on above: Order Comment: Speci men Type: BLOOD SPECIMENOrdering Facility: [facility] Address: [address] [place] [address] Performed By: #### 5 7021-8 ####[facility] LABCLIA [id number] [place] [address] [place] Comprehensive metabolic 2000 panelon 04-01-2024 Albumin [Mass/Vol] 4.2 g/dL Normal 3.9-4.9 [facility] Comment on above: Order Comment: Speci men Type: BLOOD SPECIMENOrdering Facility: [facility] Address: [address] [place] [address] Performed By: #### 2 4323-8 ####[facility] LABCLIA [id number] [place] [address] [place] ALP [Catalytic activity/Vol] 68 U/L Normal 34-123 [facility] Comment on above: Order Comment: Speci men Type: BLOOD SPECIMENOrdering Facility: [facility] Address: [address] [place] [address] Performed By: #### 2 4323-8 ####[facility] LABCLIA [id number] [place] [address] [place] ALT [Catalytic activity/Vol] 26 U/L Normal 7-38 [facility] Comment on above: Order Comment: Speci men Type: BLOOD SPECIMENOrdering Facility: [facility] Address: [address] [place] [address] Performed By: #### 2 4323-8 ####[facility] LABCLIA [id number] [facility] [address] [address] [place] Anion gap [Moles/Vol] 13 mmol/L Normal 8-15 [facility] Comment on above: Order Comment: Speci men Type: BLOOD SPECIMENOrdering Facility: [facility] Address: [address] [place] [address] Performed By: #### 2 4323-8 ####[facility] LABCLIA [id number] [facility] [place] [id number] [place] AST [Catalytic activity/Vol] 21 U/L Normal 13-35 [facility] Comment on above: Order Comment: Speci men Type: BLOOD SPECIMENOrdering Facility: [facility] Address: [address] [place] [address] Performed By: #### 2 4323-8 ####[facility] LABCLIA [id number] [facility] [place] [address] [place] Bilirubin [Mass/Vol] 0.8 mg/dL Normal 0.2-1.3 [facility] Comment on above: Order Comment: Speci men Type: BLOOD SPECIMENOrdering Facility: [facility] Address: [address] [place] [address] Performed By: #### 2 4323-8 ####[facility] LABCLIA [id number] [facility] [place] [id number] [place] Calcium [Mass/Vol] 9.5 mg/dL Normal 8.5-10.2 [facility] Comment on above: Order Comment: Speci men Type: BLOOD SPECIMENOrdering Facility: [facility] Address: [address] [place] [address] Performed By: #### 2 4323-8 ####[facility] LABCLIA [id number] [facility] [place] [id number] [place] Chloride [Moles/Vol] 105 mmol/L Normal 98-107 [facility] Comment on above: Order Comment: Speci men Type: BLOOD SPECIMENOrdering Facility: [facility] Address: [address] [place] [address] Performed By: #### 2 4323-8 ####[facility] LABCLIA [id number] [place] [address] [place] CO2 [Moles/Vol] 21 mmol/L Low 22-30 [facility] Comment on above: Order Comment: Speci men Type: BLOOD SPECIMENOrdering Facility: [facility] Address: [address] [place] [address] Performed By: #### 2 4323-8 ####[facility] LABCLIA [id number] [address] [place] Creatinine [Mass/Vol] 0.69 mg/dL Normal 0.58-0.96 [facility] Comment on above: Order Comment: Speci men Type: BLOOD SPECIMENOrdering Facility: [facility] Address: [address] [place] [address] Performed By: #### 2 4323-8 ####[facility] LABCLIA [id number] [address] Creatinine and Glomerular filtration rate.predicted panel (S/P/Bld) 91 mL/min/1.73m??? Normal >=60 [facility] Comment on above: Order Comment: Speci men Type: BLOOD SPECIMENOrdering Facility: [facility] Address: [address] [place] [address] Result Comment: Angélica mated Glomerular Filtration Rate [...] actual GFR. Performed By: #### 2 4323-8 ####[facility] LABCLIA [id number] [place] [id number] [place] Glucose [Mass/Vol] 215 mg/dL High 74-99 [facility] Comment on above: Order Comment: Thomas shelton Type: BLOOD SPECIMENOrdering Facility: [facility] Address: [address] [place], [place] [id number] Result Comment: The [place] [employer] (ADA) provides guidance for cutoff [...] Standards of Medical Care in Diabetes 2016, [place] [employer]. Diabetes Care. 2016.39(Suppl 1). Performed By: #### 2 4323-8 ####[facility] LABCLIA [id number] [place] [address] [place] Potassium [Moles/Vol] 4.6 mmol/L Normal 3.7-5.1 [facility] Comment on above: Order Comment: Thomas shelton Type: BLOOD SPECIMENOrdering Facility: [facility] Address: [address] [place] [address] Performed By: #### 2 4323-8 ####[facility] LABCLIA [id number] [address] [address] [place] Protein [Mass/Vol] 7.0 g/dL Normal 6.3-8.0 [facility] Comment on above: Order Comment: Thomas shelton Type: BLOOD SPECIMENOrdering Facility: [facility] Address: [address] [place], [place] [address] Performed By: #### 2 4323-8 ####[facility] LABCLIA [id number] [place] [id number] [place] Sodium [Moles/Vol] 139 mmol/L Normal 136-144 [facility] Comment on above: Order Comment: Speci men Type: BLOOD SPECIMENOrdering Facility: [facility] Address: [address] [place] [address] Performed By: #### 2 4323-8 ####[facility] LABCLIA [id number] [place] [address] [place] Urea nitrogen [Mass/Vol] 21 mg/dL Normal 7-21 [facility] Comment on above: Order Comment: Speci men Type: BLOOD SPECIMENOrdering Facility: [facility] Address: [address] [place] [address] Performed By: #### 2 4323-8 ####[facility] LABCLIA [id number] [place] [address] [place] TYPE + SCREENon 04-01-2024 ABO O Normal [facility] Comment on above: Order Comment: Speci men Type: BLOOD SPECIMENOrdering Facility: [facility] Address: [address] [place] [address] Performed By: #### T SCR ####[facility] BLOOD BANKCLIA [id number] [place] [address] [place] HISTORICAL AB SCR STATUS Negative Normal [facility] Comment on above: Order Comment: Speci men Type: BLOOD SPECIMENOrdering Facility: [facility] Address: [address] [place] [address] Performed By: #### T SCR ####[facility] BLOOD BANKCLIA [id number] [place] [id number] [place] Rh Nom (Bld) Negative Normal [facility] Comment on above: Order Comment: Speci men Type: BLOOD SPECIMENOrdering Facility: [facility] Address: [address] [place] [address] Performed By: #### T SCR ####[facility] BLOOD BANKCLIA [id number] [place] [address] [place] TYPE AND SCREEN EXPIRATION 04/04/2024 23:59 Normal [facility] Comment on above: Order Comment: Speci men Type: BLOOD SPECIMENOrdering Facility: [facility] Address: [address] [place] [address] Performed By: #### T SCR ####[facility] MA[facility] BLOOD BANKCLIA [id number] [address] [address] [facility] 3603-17-2024 36 Requested on Snapboard Normal [facility] 36on 03-16-2024 36 Approved through [employer]. Scanned under Media Auth# [id number] 04/06-04/07/24 Calendars updated. Just waiting for case request to add to Snapboard. Normal [facility] 36 Pended TAVR case request, Gloria Davis NEWSPAPER EDITOR MANAGING to sign. Normal [facility] CT ANGIOGRAM TAVRon 03-11-20 CT ANGIOGRAM TAVR Patient Name: LITO GONZALEZ : 1950 Exam Date/Time: 03/10/2024 14:01 Procedure: CT ANGIOGRAM TAVR Ordering Provider: DAVIS MEGGAN Reason For Exam: AORTIC VALVE STENOSIS [facility] Valve [facility] Cardiovascular CTA CLINICAL INDICATION: 73-year-old female with severe aortic stenosis, being evaluated for transcatheter aortic valve implantation. Computed tomography of the heart, thoracoabdominal aorta, and iliofemoral system was performed using a [employer] Aquilion One 320 detector scanner. Images were [...] 0.94 cm2 Predicted deployment angle (3-cusp view): ROLF 10, CAU 8 Aortic Annulus: Dimensions: 2.3 [...] Electronically Signed Date/Time: 03/11/2024 12:28 PM EDT [facility] Office Visiton 03-10-2024 Follow-up visit [id number] Lito Gonzalez 1950 F Date Provider Department Center 03/10/2024 [id number] AQUINO [facility] [address] Family History Problem Relation Age of Onset Breast cancer Mother COPD Father Coronary artery disease Father Family Status - Relation Status Age at Mother Father Level of Service:34700 [place] OFFICE/OUTPATIENT NEW HIGH MDM 60 MINUTES Reason for Visit and Comments: Other [0] - Aortic Stenosis [facility] Follow-up visit [id number] Lito Gonzalez 1950 Date Provider Department Center 03/10/2024 [id number] HORTA [facility] [address] Family History Problem Relation Age of Onset Breast cancer Mother COPD Father Coronary artery disease Father Family Status - Relation Status Age at Mother Father Level of Service:34695 [place] OFFICE/OUTPATIENT NEW HIGH MDM 60 MINUTES Reason for Visit and Comments: Cardiac Valve Problem [1334] New Patient [542] - Heart Valve Clinic [facility] Follow-up visit [id number] Lito Gonzalez 1950 Date Provider Department [place] 03/10/2024 [id number] SRINIVASA [facility] [address] Family History Problem Relation Age of Onset Breast cancer Mother COPD Father Coronary artery disease Father Family Status - Relation Status Age at Mother Father Level of Service:65796 [place] OFFICE/OUTPATIENT NEW HIGH MDM 60 MINUTES Reason for Visit and Comments: Cardiac Valve Problem [1334] New Patient [542] - Heart Valve Clinic [facility] PATINSon 03-10-2024 [facility] DISCHARGE INSTRUCTIONS: Please talk with your [...] or missing doses (which can be dangerous). [facility] Progress Noteon 03-10-2024 Progress Note Likely multifactoria l Encouraged patient to change positions slowly to avoid dizziness and falls Encouraged continued follow-up with PCP (primary care provider) and cardiology regarding her dizziness - patient and agree/confirm understanding monitor [facility] Progress Note Chronic Patient had had c/o memory loss for AWV (Annual Wellness Visit) from 02/25/24 but declined a geriatrics referral at that time I strongly encouraged patient/ to have patient schedule appt with us at [facility] for baseline memory testing I suspect either MCI (Mild Cognitive Impairment) or mild dementia based on my conversation with patient in our visit today [facility] Progress Note Reviewed med list with patient/ Advised patient speak with PCP (primary care provider) regarding alternative medication for diabetes other than glimepiride given risk of falls, hypoglycemia -patient/ amenable to this suggestion Recommended patient begin to use pillbox. [facility] Progress Note Chronic Never had sleep apnea [...] voice understanding and agreement with this plan. [facility] Progress Note I agree with cardiology plan as discussed with front end software developer on same date regarding next steps for further workup/treatment of cardiac disease which likely includes TAVR. On this date of evaluation, the patient has sufficient understanding of procedure(s) to consent to the procedure(s) being discussed and has adequate social support(s). [facility] Progress Note [facility] [address] [facility] [address] Dept: [phone] Dept Loc: [phone] Today's Visit Location: TAVR (transcather aortic valve replacement) Clinic [facility] Cardiology [address] [place] [address] Visit type: [facility] Assessment at TAVR (transcather aortic valve replacement) Clinic Visit Date: 03/10/2024 Reason for Visit: Other (Aortic Stenosis) Assessment and Plan 1. Severe aortic stenosis Assessment & Plan: I agree with cardiology plan as discussed with front end software developer on same date regarding next steps for [...] have patient schedule appt with us at [facility] for baseline memory testing I suspect either [...] previously m (more content not included)... Normal [facility] Progress Note [facility] Group: Cardiothoracic Surgery Multidisciplinary Heart Valve Clinic Date: 03/10/24 Patient:Lito Gonzalez 1950 73 y.o. female [id number] Subjective: HPI: Lito Gonzalez 73 y.o. referred [...] No respirator (more content not included)... Normal [facility] Progress Note [facility] [address] [facility] [address] Dept: [phone] Dept Visit type: New : 1950 Reason for Visit: Cardiac Valve Problem and New Patient (Heart Valve Clinic) Assessment and Plan 1. Nonrheumatic aortic valve stenosis 2. PAF (paroxysmal atrial fibrillation) ([facility]) - ECG 12 lead - CLINIC PERFORMED [...] is no (more content not included)... Normal [facility] Progress Noteon 03-06-2024 Progress Note Lito [...] none Cardiac Catheterization 01/20/2024 Transthoracic Echocardiogram 01/08/2024 [facility] 36on 03-04-2024 36 Spoke with patient and scheduled CTA [address] 03/10 1 pm. Reviewed fasting 4 hours prior and oral hydration protocol. Verbalized understanding. [facility] 36on 03-03-2024 36 Labs reviewed and stable. Orders signed. [facility] 36 Reviewed patient's chart, next step In TAVR work-up will be CTA. Pended order, routed to Gloria Davis APRN to sign if appropriate. Will call patient to schedule once signed. BMP completed 01/14/24. Will also pended pre-TAVR labs for patient to complete with CTA. CXR completed 01/14/24. [facility] 36on 02-26-2024 36 Map mailed [facility] CNOVon 02-25-2024 CNOV Office Visit (INTMWS ) LITO GONZALEZ ([id number]) 1950 F Date Time Provider Department 02/25/24 [...] (Internal Medicine) Outside specialists seen: cardiology with [facility] Medical/Family history review Reviewed and updated problem [...] female. Recent work up with cardiology, sees [facility]. Had an ECHO and a heart cath. 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 Generalized Osteoarthrosis, Involving Multiple Sites - 05/10/2008 Diabetes Mellitus (Hcc) - 10/20/2007 Hypertension Goal Bp (Blood Pressure) < 140/90 - 10/12/2005 Hyperlipidemia Associated With Type 2 Diabetes Mellitus (Hcc) ([facility]) - 10/12/2005 Class 3 Severe Obesity Due to Excess Calories With Body Mass Index (B (more content not included)... Normal [facility] 36on 02-19-2024 36 Made chart and isabella d PARCEL POST CLERK packet w/o map. If I get one by next week I will mail it otherwise I'll call patient w/ good directions. Normal [facility] CBC W Auto Differential pane l (Bld)on 02-19-2024 Basophils (Bld) [#/Vol] 0.14 10*3/uL High <0.11 [facility] Comment on above: Order Comment: Specjosiah men Type: BLOOD SPECIMENOrdering Facility: [facility] Address: [address] [place] [address] Performed By: #### 5 7021-8 ####[facility] LABCLIA [id number] [place] [address] [place] Basophils/100 WBC (Bld) 1.6 % [facility] Comment on above: Order Comment: Thomas shelton Type: BLOOD SPECIMENOrdering Facility: [facility] Address: [address] [place] [address] Performed By: #### 5 7021-8 ####[facility] LABCLIA [id number] [place] [address] [place] Differential cell count method Nom (Bld) Auto Normal [facility] Comment on above: Order Comment: Speci men Type: BLOOD SPECIMENOrdering Facility: [facility] Address: [address] [place] [address] Performed By: #### 5 7021-8 ####[facility] LABCLIA [id number] [place] [address] [place] Eosinophils (Bld) [#/Vol] 0.66 10*3/uL High <0.46 [facility] Comment on above: Order Comment: Speci men Type: BLOOD SPECIMENOrdering Facility: [facility] Address: [address] [place] [address] Performed By: #### 5 7021-8 ####[facility] LABCLIA [id number] [place] [address] [place] Eosinophils/100 WBC (Bld) 7.4 % Normal [facility] Comment on above: Order Comment: Speci men Type: BLOOD SPECIMENOrdering Facility: [facility] Address: [address] [place] [address] Performed By: #### 5 7021-8 ####[facility] LABCLIA [id number] [place] [address] [place] Erythrocyte distribution width (RBC) [Ratio] 13.4 % Normal 11.5-15.0 [facility] Comment on above: Order Comment: Speci men Type: BLOOD SPECIMENOrdering Facility: [facility] Address: [address] [place] [address] Performed By: #### 5 7021-8 ####[facility] LABCLIA [id number] [place] [address] [place] Hematocrit (Bld) [Volume fraction] 45.3 % Normal 36.0-46.0 [facility] Comment on above: Order Comment: Speci men Type: BLOOD SPECIMENOrdering Facility: [facility] Address: [address] [place] [address] Performed By: #### 5 7021-8 ####[facility] LABCLIA [id number] [place] [id number] [place] Hemoglobin (Bld) [Mass/Vol] 14.5 g/dL Normal 11.5-15.5 [facility] Comment on above: Order Comment: Speci men Type: BLOOD SPECIMENOrdering Facility: [facility] Address: [address] [place] [address] Performed By: #### 5 7021-8 ####[facility] LABCLIA [id number] [place] [address] [place] Immature granulocytes (Bld) [#/Vol] 10*3/uL Normal <0.10 [facility] Comment on above: Order Comment: Speci men Type: BLOOD SPECIMENOrdering Facility: [facility] Address: [address] [place] [address] Performed By: #### 5 7021-8 ####[facility] [facility] [id number] [place] [address] [place] Immature granulocytes/100 WBC (Bld) 0.2 % Normal [facility] Comment on above: Order Comment: Speci men Type: BLOOD SPECIMENOrdering Facility: [facility] Address: [address] [place] [address] Performed By: #### 5 7021-8 ####[facility] LABCLIA [id number] [place] [address] [place] Lymphocytes (Bld) [#/Vol] 2.97 10*3/uL Normal 1.00-4.00 [facility] Comment on above: Order Comment: Speci men Type: BLOOD SPECIMENOrdering Facility: [facility] Address: [address] [place] [address] Performed By: #### 5 7021-8 ####[facility] LABCLIA [id number] [place] [address] [place] Lymphocytes/100 WBC (Bld) 33.4 % Normal [facility] Comment on above: Order Comment: Speci men Type: BLOOD SPECIMENOrdering Facility: [facility] Address: [address] [place] [address] Performed By: #### 5 7021-8 ####[facility] LABCLIA [id number] [place] [address] [place] MCH (RBC) [Entitic mass] 30.8 pg Normal 26.0-34.0 [facility] Comment on above: Order Comment: Speci men Type: BLOOD SPECIMENOrdering Facility: [facility] Address: [address] [place] [address] Performed By: #### 5 7021-8 ####[facility] LABCLIA [id number] [place] [address] [place] MCHC (RBC) [Mass/Vol] 32.0 g/dL Normal 30.5-36.0 [facility] Comment on above: Order Comment: Speci men Type: BLOOD SPECIMENOrdering Facility: [facility] Address: [address] [place] [address] Performed By: #### 5 7021-8 ####[facility] LABIA [id number] [place] [address] [place] MCV (RBC) [Entitic vol] 96.2 fL Normal 80.0-100.0 [facility] Comment on above: Order Comment: Speci men Type: BLOOD SPECIMENOrdering Facility: [facility] Address: [address] [place] [address] Performed By: #### 5 7021-8 ####[facility] LABIA [id number] [place] [address] [place] Monocytes (Bld) [#/Vol] 1.09 10*3/uL High <0.87 [facility] Comment on above: Order Comment: Speci men Type: BLOOD SPECIMENOrdering Facility: [facility] Address: [address] [place] [address] Performed By: #### 5 7021-8 ####[facility] LABCLIA [id number] [place] [address] [place] Monocytes/100 WBC (Bld) 12.3 % Normal [facility] Comment on above: Order Comment: Speci men Type: BLOOD SPECIMENOrdering Facility: [facility] Address: [address] [place] [address] Performed By: #### 5 7021-8 ####[facility] LABCLIA [id number] [place] [address] [place] Neutrophils (Bld) [#/Vol] 4.00 10*3/uL Normal 1.45-7.50 [facility] Comment on above: Order Comment: Speci men Type: BLOOD SPECIMENOrdering Facility: [facility] Address: [address] [place] [address] Performed By: #### 5 7021-8 ####[facility] LABCLIA [id number] [place] [address] [place] Neutrophils/100 WBC (Bld) 45.1 % Normal [facility] Comment on above: Order Comment: Speci men Type: BLOOD SPECIMENOrdering Facility: [facility] Address: [address] [place] [address] Performed By: #### 5 7021-8 ####[facility] LABCLIA [id number] [place] [address] [place] Nucleated RBC (Bld) [#/Vol] 10*3/uL Normal <0.01 [facility] Comment on above: Order Comment: Speci men Type: BLOOD SPECIMENOrdering Facility: [facility] Address: [address] [place] [address] Performed By: #### 5 7021-8 ####[facility] LABCLIA [id number] [place] [address] [place] Nucleated RBC/100 WBC (Bld) [Ratio] 0.0 /100 WBC Normal [facility] Comment on above: Order Comment: Speci men Type: BLOOD SPECIMENOrdering Facility: [facility] Address: [address] [place] [address] Performed By: #### 5 7021-8 ####[facility] LABCLIA [id number] [place] [address] [place] Platelet mean volume (Bld) [Entitic vol] 11.9 fL Normal 9.0-12.7 [facility] Comment on above: Order Comment: Speci men Type: BLOOD SPECIMENOrdering Facility: [facility] Address: [address] [place] [address] Performed By: #### 5 7021-8 ####[facility] LABCLIA [id number] [place] [address] [place] Platelets (Bld) [#/Vol] 196 10*3/uL Normal 150-400 [facility] Comment on above: Order Comment: Speci men Type: BLOOD SPECIMENOrdering Facility: [facility] Address: [address] [place] [address] Performed By: #### 5 7021-8 ####[facility] LABCLIA [id number] [place] [address] [place] RBC (Bld) [#/Vol] 4.71 10*6/uL Normal 3.90-5.20 [facility] Comment on above: Order Comment: Speci men Type: BLOOD SPECIMENOrdering Facility: [facility] Address: [address] [place] [address] Performed By: #### 5 7021-8 ####[facility] LABCLIA [id number] [place] [address] [place] WBC (Bld) [#/Vol] 8.88 10*3/uL Normal 3.70-11.00 [facility] Comment on above: Order Comment: Speci men Type: BLOOD SPECIMENOrdering Facility: [facility] Address: [address] [place] [address] Performed By: #### 5 7021-8 ####[facility] LABIA [id number] [place] [address] [place] Comprehensive metabolic 2000 panelon 02-19-2024 Albumin [Mass/Vol] 4.3 g/dL Normal 3.9-4.9 [facility] Comment on above: Order Comment: Speci men Type: BLOOD SPECIMENOrdering Facility: [facility] Address: [address] [id number] Performed By: #### 2 4323-8 ####[facility] LABCLIA [id number] [place] [id number] [place] ALP [Catalytic activity/Vol] 61 U/L Normal 34-123 [facility] Comment on above: Order Comment: Speci men Type: BLOOD SPECIMENOrdering Facility: [facility] Address: [address] [place] [address] Performed By: #### 2 4323-8 ####[facility] LABCLIA [id number] [place] [address] [place] ALT [Catalytic activity/Vol] 30 U/L Normal 7-38 [facility] Comment on above: Order Comment: Speci men Type: BLOOD SPECIMENOrdering Facility: [facility] Address: [address] [place] [address] Performed By: #### 2 4323-8 ####[facility] LABCLIA [id number] [place] [address] [place] Anion gap [Moles/Vol] 11 mmol/L Normal 8-15 [facility] Comment on above: Order Comment: Speci men Type: BLOOD SPECIMENOrdering Facility: [facility] Address: [address] [place], [place] [address] Performed By: #### 2 4323-8 ####[facility] LABCLIA [id number] [place] [id number] [place] AST [Catalytic activity/Vol] 25 U/L Normal 13-35 [facility] Comment on above: Order Comment: Speci men Type: BLOOD SPECIMENOrdering Facility: [facility] Address: [address] [place], [place] [address] Performed By: #### 2 4323-8 ####[facility] LABCLIA [id number] [place] [id number] [place] Bilirubin [Mass/Vol] 0.7 mg/dL Normal 0.2-1.3 [facility] Comment on above: Order Comment: Speci men Type: BLOOD SPECIMENOrdering Facility: [facility] Address: [address] [place] [address] Performed By: #### 2 4323-8 ####[facility] LABCLIA [id number] [place] [address] [place] Calcium [Mass/Vol] 9.8 mg/dL Normal 8.5-10.2 [facility] Comment on above: Order Comment: Speci men Type: BLOOD SPECIMENOrdering Facility: [facility] Address: [address] [place] [address] Performed By: #### 2 4323-8 ####[facility] LABCLIA [id number] [place] [address] [place] Chloride [Moles/Vol] 107 mmol/L Normal 98-107 [facility] Comment on above: Order Comment: Speci men Type: BLOOD SPECIMENOrdering Facility: [facility] Address: [address] [place] [address] Performed By: #### 2 4323-8 ####[facility] LABCLIA [id number] [place] [address] [place] CO2 [Moles/Vol] 23 mmol/L Normal 22-30 [facility] Comment on above: Order Comment: Speci men Type: BLOOD SPECIMENOrdering Facility: [facility] Address: [address] [place], [place] [address] Performed By: #### 2 4323-8 ####[facility] LABCLIA [id number] [place] [address] [place] Creatinine [Mass/Vol] 0.79 mg/dL Normal 0.58-0.96 [facility] Comment on above: Order Comment: Speci men Type: BLOOD SPECIMENOrdering Facility: [facility] Address: [address] [place] [address] Performed By: #### 2 4323-8 ####[facility] LABCLIA [id number] [place] [address] [place] Creatinine and Glomerular filtration rate.predicted panel (S/P/Bld) 78 mL/min/1.73m??? Normal >=60 [facility] Comment on above: Order Comment: Thomas shelton Type: BLOOD SPECIMENOrdering Facility: [facility] Address: [address] [place] [address] Result Comment: Angélica mated Glomerular Filtration Rate [...] actual GFR. Performed By: #### 2 4323-8 ####[facility] LABCLIA [id number] [place] [address] [place] Glucose [Mass/Vol] 198 mg/dL High 74-99 [facility] Comment on above: Order Comment: Thomas shelton Type: BLOOD SPECIMENOrdering Facility: [facility] Address: [address] [place] [address] Result Comment: The [place] Diabetes Association (ADA) provides guidance for cutoff [...] Standards of Medical Care in Diabetes 2016, [place] [employer]. Diabetes Care. 2016.39(Suppl 1). Performed By: #### 2 4323-8 ####[facility] LABCLIA [id number] [place] [address] [place] Potassium [Moles/Vol] 4.7 mmol/L Normal 3.7-5.1 [facility] Comment on above: Order Comment: Speci men Type: BLOOD SPECIMENOrdering Facility: [facility] Address: [address] [place] [address] Performed By: #### 2 4323-8 ####[facility] LABCLIA [id number] [place] [address] [place] Protein [Mass/Vol] 7.0 g/dL Normal 6.3-8.0 [facility] Comment on above: Order Comment: Speci men Type: BLOOD SPECIMENOrdering Facility: [facility] Address: [address] [place] [address] Performed By: #### 2 4323-8 ####[facility] LABCLIA [id number] [place] [address] [place] Sodium [Moles/Vol] 141 mmol/L Normal 136-144 [facility] Comment on above: Order Comment: Speci men Type: BLOOD SPECIMENOrdering Facility: [facility] Address: [address] [place] [address] Performed By: #### 2 4323-8 ####[facility] LABCLIA [id number] [place] [address] [place] Urea nitrogen [Mass/Vol] 21 mg/dL Normal 7-21 [facility] Comment on above: Order Comment: Speci men Type: BLOOD SPECIMENOrdering Facility: [facility] Address: [address] [place] [address] Performed By: #### 2 4323-8 ####[facility] LABCLIA [id number] [place] [address] [place] HbA1c (Bld)on 02-19-2024 Average glucose Estimated from glycated hemoglobin (Bld) [Mass/Vol] 180 mg/dL Normal [facility] Comment on above: Order Comment: Thomas shelton Type: BLOOD SPECIMENOrdering Facility: [facility] Address: [address] [place] [address] Result Comment: eAG: (Estimated average glucose) is a calculated value from HgbA1c and is financial representative of the average blood glucose level in the last 2-3 month period. Performed By: #### 5 5454-3 ####[facility] LABCLIA [id number] [address] STATES OF [facility] HbA1c (Bld) [Mass fraction] 7.9 % High 4.3-5.6 [facility] Comment on above: Order Comment: Thomas shelton Type: BLOOD SPECIMENOrdering Facility: [facility] Address: [address] [place] [address] Result Comment: [place] Diabetes Association guidelines indicate that patients with HgbA1c in the range 5.7-6.4% are at increased risk for development of diabetes, and intervention by lifestyle modification may be beneficial. HgbA1c greater or equal to 6.5% is considered diagnostic of diabetes. Performed By: #### 5 5454-3 ####[facility] LABCLIA [id number] [address] OF [facility] 36on 02-13-2024 36 Patient referred to [facility] from Dr Hubbard. Records scanned under Media and printed. I called and scheduled her for 03/10/24 w/ PB (waiting on surgeon availability). I need to make chart and mail PARCEL POST CLERK packet. Normal [facility] DAVID SCREENINGon 04-26-2023 [facility] XR CHEST 2V FRONTAL/LATon [facility] XR Chest PA and Lateralon IMPRESSION: No acute radiographic abnormality. Press Loader: PSCB Transcribe Date/Time: Jul 31 2022 4:03P Dictated by : BRE SAMSON MD This examination was interpreted and the report reviewed and electronically signed by: BRE SAMSON MD on Jul 31 2022 4:04PM [facility] DIVISION OF RADIOLOGY * * *Final [...] shows degenerative changes. DIVISION OF RADIOLOGY Provider, [facility] - 07/31/2022 * * *Final Report* * [...] changes. IMPRESSION IMPRESSION: No acute radiographic abnormality. Press Loader: PSCB Transcribe Date/Time: Jul 31 2022 4:03P Dictated by : BRE SAMSON MD This examination was interpreted and the report reviewed and electronically signed by: BRE SAMSON MD on Jul 31 2022 4:04PM EST [facility] Radiology Study observation (narrative) [facility] XR Chest PA and LateralOrder ed By: Cc Provider on 07-31-2022 [facility] XR Chest PA and Lateralon IMPRESSION: Hazy opacities overlying the left midlung. Clinically correlate. Press Loader: BOOGIE Transcribe Date/Time: May 18 2020 4:48P Dictated by : BRE SAMSON MD This examination was interpreted and the report reviewed and electronically signed by: BRE SAMSON MD on May 18 2020 4:50PM [facility] DIVISION OF RADIOLOGY * * *Final [...] shows degenerative changes. DIVISION OF RADIOLOGY Provider, [facility] - 05/18/2020 * * *Final Report* * [...] opacities overlying the left midlung. Clinically correlate. Press Loader: BOOGIE Transcribe Date/Time: May 18 2020 4:48P Dictated by : BRE SAMSON MD This examination was interpreted and the report reviewed and electronically signed by: BRE SAMSON MD on May 18 2020 4:50PM EST [facility] Radiology Study observation (narrative) [facility] XR Chest PA and LateralOrder ed By: Ccf Provider on 05-18-2020 [facility] Vital Signs Date Time Vital Sign Value Performing Clinician Harshad hendrickson 02-08-2025 10:29-0400 Body height 152.[address] Abby Mcclellan MD Work Phone: [phone] [place] [address] 02-08-2025 10:29-0400 Body mass index (BMI) [Ratio] 44.9 kg/m2 Dr. Abby Mcclellan MD Work Phone: [phone])[phone] [place] [address] 02-08-2025 10:29-0400 Body weight 104.[address] Abby Mcclellan MD Work Phone: [phone])[phone] [place] [address] 02-08-2025 10:29-0400 Diastolic blood pressure 79 mm[Hg] Dr. Abby Mcclellan MD Work Phone: [phone])[phone] [place] [address] 02-08-2025 10:29-0400 Heart rate 95 /min Dr. Abby Mclcellan MD Work Phone: [facility] 02-08-2025 10:29-0400 Respiratory rate 18 /min Dr. Abby Mcclellna MD Work Phone: [facility] 02-08-2025 10:29-0400 SaO2% (BldA) [Mass fraction] 97 % Dr. Abby Mcclellan MD Work Phone: [facility] 02-08-2025 10:29-0400 Systolic blood pressure 129 mm[Hg] Dr. Abby Mcclellan MD Work Phone: [facility] 01-11-2025 11:16-0400 Body mass index (BMI) [Ratio] 47.53 kg/m2 Kamlesh Acosta APRN.PURCHASING AND CLAIMS SUPERVISOR Work Phone: [facility] 01-11-2025 11:16-0400 Body weight 110.4 kg Kamlesh Dave NEWSPAPER EDITOR MANAGING.CN P Work Phone: [facility] 01-11-2025 11:16-0400 Diastolic blood pressure 78 mm[Hg] Kamlesh Dave NEWSPAPER EDITOR MANAGING.PURCHASING AND CLAIMS SUPERVISOR Work Phone: [facility] 01-11-2025 11:16-0400 Heart rate 108 /min Kamlesh Dave NEWSPAPER EDITOR MANAGING.CN P Work Phone: [facility] 01-11-2025 11:16-0400 SaO2% (BldA) [Mass fraction] 97 % Kamlesh Dave NEWSPAPER EDITOR MANAGING.PURCHASING AND CLAIMS SUPERVISOR Work Phone: [facility] 01-11-2025 11:16-0400 Systolic blood pressure 120 mm[Hg] Kamlesh Dave NEWSPAPER EDITOR MANAGING.PURCHASING AND CLAIMS SUPERVISOR Work Phone: [facility] 11-10-2024 11:15-0400 Body mass index (BMI) [Ratio] 46.84 kg/m2 Kamlesh Dave NEWSPAPER EDITOR MANAGING.PURCHASING AND CLAIMS SUPERVISOR Work Phone: [facility] 11-10-2024 11:15-0400 Body weight 108.8 kg Kamlesh Dave NEWSPAPER EDITOR MANAGING.CN P Work Phone: [facility] 11-10-2024 11:15-0400 Diastolic blood pressure 74 mm[Hg] Kamlesh Dave NEWSPAPER EDITOR MANAGING.PURCHASING AND CLAIMS SUPERVISOR Work Phone: [facility] 11-10-2024 11:15-0400 Heart rate 84 /min Kamlesh Dave NEWSPAPER EDITOR MANAGING.CN P Work Phone: [facility] 11-10-2024 11:15-0400 SaO2% (BldA) [Mass fraction] 98 % Kamlesh Dave NEWSPAPER EDITOR MANAGING.PURCHASING AND CLAIMS SUPERVISOR Work Phone: [facility] 11-10-2024 11:15-0400 Systolic blood pressure 128 mm[Hg] Kamlesh Dave NEWSPAPER EDITOR MANAGING.PURCHASING AND CLAIMS SUPERVISOR Work Phone: [facility] 09-29-2024 12:05-0500 Body mass index (BMI) [Ratio] 47.88 kg/m2 Kamlesh Dave NEWSPAPER EDITOR MANAGING.PURCHASING AND CLAIMS SUPERVISOR Work Phone: [facility] 09-29-2024 12:05-0500 Body weight 111.2 kg Kamlesh Dave NEWSPAPER EDITOR MANAGING.CN P Work Phone: [facility] 09-29-2024 12:05-0500 Diastolic blood pressure 72 mm[Hg] Kamlesh Dave NEWSPAPER EDITOR MANAGING.PURCHASING AND CLAIMS SUPERVISOR Work Phone: [facility] 09-29-2024 12:05-0500 Heart rate 96 /min Kamlesh Dave NEWSPAPER EDITOR MANAGING.CN P Work Phone: [facility] 09-29-2024 12:05-0500 SaO2% (BldA) [Mass fraction] 97 % Kamlesh Dave NEWSPAPER EDITOR MANAGING.PURCHASING AND CLAIMS SUPERVISOR Work Phone: [facility] 09-29-2024 12:05-0500 Systolic blood pressure 106 mm[Hg] Kamlesh Dave NEWSPAPER EDITOR MANAGING.PURCHASING AND CLAIMS SUPERVISOR Work Phone: [facility] 05-07-2024 15:37-0400 Body height 151.1 cm Americaoscar Davis NEWSPAPER EDITOR MANAGING - PURCHASING AND CLAIMS SUPERVISOR Work Phone: [facility] [employer] 05-07-2024 15:37-0400 Body mass index (BMI) [Ratio] 47.66 kg/m2 America Davis NEWSPAPER EDITOR MANAGING - PURCHASING AND CLAIMS SUPERVISOR Work Phone: [facility] [employer] 05-07-2024 15:37-0400 Body weight 108.86 kg Americaoscar Davis NEWSPAPER EDITOR MANAGING - PURCHASING AND CLAIMS SUPERVISOR Work Phone: [facility] [employer] 05-07-2024 15:37-0400 Diastolic blood pressure 70 mm[Hg] America Davis NEWSPAPER EDITOR MANAGING - PURCHASING AND CLAIMS SUPERVISOR Work Phone: [facility] [employer] 05-07-2024 15:37-0400 Heart rate 103 /min America Davis NEWSPAPER EDITOR MANAGING - PURCHASING AND CLAIMS SUPERVISOR Work Phone: [facility] [employer] 05-07-2024 15:37-0400 Systolic blood pressure 122 mm[Hg] America Davis NEWSPAPER EDITOR MANAGING - PURCHASING AND CLAIMS SUPERVISOR Work Phone: [facility] [employer] 05-07-2024 14:26-0400 Body height 149.9 cm Lindsey Tolentino NEWSPAPER EDITOR MANAGING - PURCHASING AND CLAIMS SUPERVISOR Work Phone: [facility] [employer] 05-07-2024 14:26-0400 Body mass index (BMI) [Ratio] 48.47 kg/m2 Lindsey Tolentino NEWSPAPER EDITOR MANAGING - PURCHASING AND CLAIMS SUPERVISOR Work Phone: [facility] [employer] 05-07-2024 14:26-0400 Body weight 108.86 kg Lindsey Tolentino NEWSPAPER EDITOR MANAGING - PURCHASING AND CLAIMS SUPERVISOR Work Phone: [facility] [employer] 04-17-2024 13:02-0400 Body height 149.9 cm Lindsey Tolentino NEWSPAPER EDITOR MANAGING - PURCHASING AND CLAIMS SUPERVISOR Work Phone: [facility] [employer] 04-17-2024 13:02-0400 Body mass index (BMI) [Ratio] 48.47 kg/m2 Lindsey Tolentino NEWSPAPER EDITOR MANAGING - PURCHASING AND CLAIMS SUPERVISOR Work Phone: [facility] [employer] 04-17-2024 13:02-0400 Body weight 108.86 kg Lindsey Tolentino APRN - PURCHASING AND CLAIMS SUPERVISOR Work Phone: [facility] [employer] 04-17-2024 13:02-0400 Diastolic blood pressure 70 mm[Hg] Lindsey Tolentino NEWSPAPER EDITOR MANAGING - PURCHASING AND CLAIMS SUPERVISOR Work Phone: [facility] [employer] 04-17-2024 13:02-0400 Heart rate 110 /min Lindsey Tolentino NEWSPAPER EDITOR MANAGING - PURCHASING AND CLAIMS SUPERVISOR Work Phone: [facility] [employer] 04-17-2024 13:02-0400 SaO2% (BldA) [Mass fraction] 100 % Lindsey Tolentino NEWSPAPER EDITOR MANAGING - PURCHASING AND CLAIMS SUPERVISOR Work Phone: [facility] [employer] 04-17-2024 13:02-0400 Systolic blood pressure 110 mm[Hg] Lindsey Tolentino NEWSPAPER EDITOR MANAGING - PURCHASING AND CLAIMS SUPERVISOR Work Phone: [facility] [employer] 04-08-2024 13:00-0400 Diastolic blood pressure 74 mm[Hg] Srinivasa Poon MD Work Phone: [facility] [employer] 04-08-2024 13:00-0400 Heart rate 108 /min Srinivasa Edwards Work Phone: [facility] [employer] 04-08-2024 13:00-0400 Respiratory rate 35 /min Srinivasa Edwards Work Phone: [facility] [employer] 04-08-2024 13:00-0400 Systolic blood pressure 141 mm[Hg] Srinivasa Poon MD Work Phone: [facility] [employer] 04-08-2024 12:07-0400 Body temperature 99.1 [degF] Srinivasa Edwards Work Phone: [facility] [employer] 04-08-2024 12:07-0400 SaO2% (BldA) [Mass fraction] 92 % Srinivasa Poon MD Work Phone: [facility] [employer] 04-08-2024 06:00-0400 Body mass index (BMI) [Ratio] 49.43 kg/m2 Srinivasa Poon MD Work Phone: [facility] [employer] 04-08-2024 06:00-0400 Body weight 111 kg Srinivasa Edwards Work Phone: [facility] [employer] 04-07-2024 09:44-0400 Body height 149.9 cm Srinivasa Edwards Work Phone: [facility] [employer] 03-10-2024 15:49-0400 Body height 149.9 cm Renzo Hernandezung DO Work Phone: [facility] [employer] 03-10-2024 15:49-0400 Body mass index (BMI) [Ratio] 50.32 kg/m2 Renzo Horta DO Work Phone: [facility] [employer] 03-10-2024 15:49-0400 Body weight 113 kg Renzo Hernandezung DO Work Phone: [facility] [employer] 03-10-2024 15:49-0400 Diastolic blood pressure 72 mm[Hg] Renzo Hernandezung DO Work Phone: [facility] [employer] 03-10-2024 15:49-0400 Heart rate 87 /min Renzo Hernandezung DO Work Phone: [facility] [employer] 03-10-2024 15:49-0400 SaO2% (BldA) [Mass fraction] 97 % Renzo Hernandezung DO Work Phone: [facility] [employer] 03-10-2024 15:49-0400 Systolic blood pressure 128 mm[Hg] Renzo Horta DO Work Phone: [facility] [employer] 03-10-2024 15:05-0400 Body height 151.1 cm Srinivasa Edwards Work Phone: [facility] [employer] 03-10-2024 15:05-0400 Body mass index (BMI) [Ratio] 49.65 kg/m2 Srinivasa Poon MD Work Phone: [facility] [employer] 03-10-2024 15:05-0400 Body weight 113.4 kg Srinivasa Edwards Work Phone: [facility] 03-10-2024 15:05-0400 Diastolic blood pressure 72 mm[Hg] Srinivasa Poon MD Work Phone: [facility] 03-10-2024 15:05-0400 Heart rate 87 /min Srinivasa Edwards Work Phone: [facility] [employer] 03-10-2024 15:05-0400 SaO2% (BldA) [Mass fraction] 97 % Srinivasa Poon MD Work Phone: [facility] 03-10-2024 15:05-0400 Systolic blood pressure 128 mm[Hg] Srinivasa Poon MD Work Phone: [facility] 02-25-2024 11:25-0400 Body mass index (BMI) [Ratio] 47.85 kg/m2 Kamlesh Parekhr NEWSPAPER EDITOR MANAGING.PURCHASING AND CLAIMS SUPERVISOR Work Phone: [facility] 02-25-2024 11:25-0400 Body weight 111.13 kg Kamlesh Dave NEWSPAPER EDITOR MANAGING.CN P Work Phone: [facility] 02-25-2024 11:25-0400 Diastolic blood pressure 76 mm[Hg] Kamlesh Dave NEWSPAPER EDITOR MANAGING.PURCHASING AND CLAIMS SUPERVISOR Work Phone: [facility] 02-25-2024 11:25-0400 Heart rate 99 /min Kamlesh Dave NEWSPAPER EDITOR MANAGING.CN P Work Phone: [facility] 02-25-2024 11:25-0400 SaO2% (BldA) [Mass fraction] 97 % Kamlesh Dave NEWSPAPER EDITOR MANAGING.PURCHASING AND CLAIMS SUPERVISOR Work Phone: [facility] 02-25-2024 11:25-0400 Systolic blood pressure 122 mm[Hg] Kamlesh Dave NEWSPAPER EDITOR MANAGING.PURCHASING AND CLAIMS SUPERVISOR Work Phone: [facility] 04-19-2023 11:50-0400 Body weight 109.77 kg Kamlesh Dave NEWSPAPER EDITOR MANAGING.CN P Work Phone: [facility] 04-19-2023 11:50-0400 Diastolic blood pressure 78 mm[Hg] Kamlesh Dave NEWSPAPER EDITOR MANAGING.PURCHASING AND CLAIMS SUPERVISOR Work Phone: [facility] 04-19-2023 11:50-0400 Heart rate 112 /min Kamlesh Dave NEWSPAPER EDITOR MANAGING.CN P Work Phone: [facility] 04-19-2023 11:50-0400 SaO2% (BldA) [Mass fraction] 96 % Kamlesh Dave NEWSPAPER EDITOR MANAGING.PURCHASING AND CLAIMS SUPERVISOR Work Phone: [facility] 04-19-2023 11:50-0400 Systolic blood pressure 118 mm[Hg] Kamlesh Dave NEWSPAPER EDITOR MANAGING.PURCHASING AND CLAIMS SUPERVISOR Work Phone: [facility] 07-31-2022 15:17-0500 Body temperature 98.71 [degF] Keily Mckinney NEWSPAPER EDITOR MANAGING.PURCHASING AND CLAIMS SUPERVISOR Work Phone: [facility] 07-31-2022 15:17-0500 Body weight 106.87 kg Keily Mckinney NEWSPAPER EDITOR MANAGING.PURCHASING AND CLAIMS SUPERVISOR Work Phone: [facility] 07-31-2022 15:17-0500 Diastolic blood pressure 72 mm[Hg] Keily Mckinney NEWSPAPER EDITOR MANAGING.PURCHASING AND CLAIMS SUPERVISOR Work Phone: [facility] 07-31-2022 15:17-0500 Heart rate 101 /min Keily Mckinney NEWSPAPER EDITOR MANAGING.PURCHASING AND CLAIMS SUPERVISOR Work Phone: [facility] 07-31-2022 15:17-0500 Respiratory rate 18 /min Keily Mckinney NEWSPAPER EDITOR MANAGING.PURCHASING AND CLAIMS SUPERVISOR Work Phone: [facility] 07-31-2022 15:17-0500 SaO2% (BldA) [Mass fraction] 96 % Keily Mckinney NEWSPAPER EDITOR MANAGING.PURCHASING AND CLAIMS SUPERVISOR Work Phone: [facility] 07-31-2022 15:17-0500 Systolic blood pressure 128 mm[Hg] Keily Mckinney NEWSPAPER EDITOR MANAGING.PURCHASING AND CLAIMS SUPERVISOR Work Phone: [facility] 04-18-2022 14:10-0400 Body weight 100.7 kg Abby Mcclellan MD Work Phone: [facility] 04-18-2022 14:10-0400 Diastolic blood pressure 70 mm[Hg] Abby Mcclellan MD Work Phone: [facility] 04-18-2022 14:10-0400 Heart rate 98 /min Abby Mcclellan MD Work Phone: [facility] 04-18-2022 14:10-0400 SaO2% (BldA) [Mass fraction] 95 % Abby Mcclellan MD Work Phone: [facility] 04-18-2022 14:10-0400 Systolic blood pressure 110 mm[Hg] Abby Mcclellan MD Work Phone: [facility] 02-12-2022 14:09-0400 Body height 152.[address] Abby Mcclellan Work Phone: [facility] Work Phone: 02-12-2022 14:09-0400 Body mass index (BMI) [Ratio] 42 kg/m2 Dr. Abby Mcclellan Work Phone: [facility] Work Phone: 02-12-2022 14:09-0400 Body temperature 96.6 [degF] Dr. Abby Mcclellan Work Phone: [facility] Work Phone: 02-12-2022 14:09-0400 Body weight 97.[address] Abby Mcclellan Work Phone: [facility] Work Phone: 02-12-2022 14:09-0400 Diastolic blood pressure 82 mm[Hg] Dr. Abby Mcclellan Work Phone: [facility] Work Phone: 02-12-2022 14:09-0400 Heart rate 102 /min Dr. Abby Mcclellan Work Phone: [facility] Work Phone: 02-12-2022 14:09-0400 Respiratory rate 22 /min Dr. Abby Mcclellan Work Phone: [facility] Work Phone: 02-12-2022 14:09-0400 SaO2% (BldA) [Mass fraction] 99 % Dr. Abby Mcclellan Work Phone: [facility] Work Phone: 02-12-2022 14:09-0400 Systolic blood pressure 140 mm[Hg] Dr. Abby Mcclellan Work Phone: [facility] Work Phone: 11-01-2021 13:40-0400 Body height 152.[address] Abby Mcclellan Work Phone: [facility] Work Phone: 11-01-2021 13:40-0400 Body mass index (BMI) [Ratio] 39.8 kg/m2 Dr. Abby Mcclellan Work Phone: [facility] Work Phone: 11-01-2021 13:40-0400 Body weight 92.[address] Abby Mcclellan Work Phone: [facility] Work Phone: 11-01-2021 13:40-0400 Diastolic blood pressure 78 mm[Hg] Dr. Abby Mcclellan Work Phone: [facility] Work Phone: 11-01-2021 13:40-0400 Heart rate 96 /min Dr. Abby Mcclellan Work Phone: [facility] Work Phone: 11-01-2021 13:40-0400 Respiratory rate 20 /min Dr. Abby Mcclellan Work Phone: [facility] Work Phone: 11-01-2021 13:40-0400 SaO2% (BldA) [Mass fraction] 95 % Dr. Abby Mcclellan Work Phone: [facility] Work Phone: 11-01-2021 13:40-0400 Systolic blood pressure 118 mm[Hg] Dr. Abby Mcclellan Work Phone: [facility] Work Phone: Encounters Encounter Date Encounter Type Care Provider Facility Start: 02-15-2025 End: 02-16-2025 Refill Abby Mcclellan MD Work Phone: [facility] [place] Comment on above: Refill Request Start: 02-09-2025 End: 02-15-2025 Refill Abby Mcclellan MD Work Phone: [facility] [place] Comment on above: Medication Problem; Refill Request Start: 02-08-2025 End: 02-08-[address] Abby Mcclellan MD Work Phone: -[facility] Start: 02-08-2025 End: 02-08-2025 Patient encounter procedure Gm Robledo PA -[facility] Work Phone: Start: 01-11-2025 End: 01-11-2025 Patient encounter procedure Kamlesh Acosta APRN.CNP Work Phone: [facility] [place] Comment on above: Type 2 diabetes jose roberto itus with hyperglycemia, without long-term current use of insulin (HCC) (Primary Dx); Nonrheumatic aortic valve stenosis; Cardiac pacemaker; Hyperlipidemia associated with type 2 diabetes mellitus (HCC); Hypertension goal BP (blood pressure) < 140/90; Sciatic leg pain Start: 01-11-2025 End: 01-11-2025 ambulatory KAMLESH PAREKHR Facility:[facility] Start: 01-07-2025 End: 01-07-2025 ambulatory Nu Bruce [facility] Work Phone: [facility] Start: 01-07-2025 End: 01-07-2025 Patient encounter procedure Nu Bruce [facility] Work Phone: [facility] Start: 01-07-2025 End: 01-11-2025 Telephone encounter Abby Mcclellan MD Work Phone: [facility] [place] Comment on above: Lab Orders Start: 01-01-2025 End: 01-01-2025 ambulatory Deshawn Sarmientoamor [facility] [place] Start: 01-01-2025 End: 01-01-2025 Patient encounter procedure Deshawn Sierra [facility] [place] Comment on above: Population Health Na vigation Outreach ([facility] Start: 12-10-2024 End: 01-30-2025 Refill Abby Mcclellan MD Work Phone: [facility] [place] Comment on above: patient cancelled re quest Start: 12-07-2024 End: 12-07-[address] Abby Mcclellan MD Work Phone: [facility] Work Phone: Start: 12-07-2024 End: 12-07-[address] Ac Hubbard MD -[facility] Work Phone: Start: 12-02-2024 End: 12-02-[address] Abby Mcclellan MD Work Phone: [facility] Work Phone: Start: 12-02-2024 End: 12-02-[address] Ac Hubbard MD -[facility] Work Phone: Start: 11-10-2024 End: 11-10-2024 ambulatory KAMLESH DAVE Facility:[facility] Start: 11-10-2024 End: 11-10-2024 Patient encounter procedure Kamlesh Acosta NEWSPAPER EDITOR MANAGING.PURCHASING AND CLAIMS SUPERVISOR Work Phone: [facility] [place] Comment on [...] Start: 09-29-2024 End: 09-29-2024 ambulatory KAMLESH ACOSTA Facility:[facility] Start: 09-29-2024 End: 09-29-2024 Patient encounter procedure Kamlesh Acosta NEWSPAPER EDITOR MANAGING.PURCHASING AND CLAIMS SUPERVISOR Work Phone: [facility] [place] Comment on [...] Start: 09-19-2024 End: 09-19-2024 ambulatory ABBY MCCLELLAN Facility:[facility] Start: 09-07-2024 End: 09-07-2024 ambulatory Ac Hubbard Facility[facility] Start: 09-07-2024 End: 09-07-[address] Ac Hubbard MD -[facility] Work Phone: Start: 08-18-2024 End: 08-20-2024 Roosevelt Mcclellan MD Work Phone: [facility] [place] Comment on above: Refill Request Lab Orders (September pointment) Start: 2024 End: 2024 ambulatory Ac Hubbard Facility:[facility] Start: 06-01-2024 End: 06-01-2024 ambulatory Abby Jerry Mcclellan Facility:[facility] Start: 05-27-2024 End: 12-11-2024 Telephone encounter America Davis NEWSPAPER EDITOR MANAGING - PURCHASING AND CLAIMS SUPERVISOR Work Phone: [facility] on above: Prior Authorization Start: 05-19-2024 End: 05-19-2024 ambulatory America Davis NEWSPAPER EDITOR MANAGING - PURCHASING AND CLAIMS SUPERVISOR Work Phone: [facility] Comment on above: PAF (paroxysmal atri al fibrillation) ([facility]) Start: 05-07-2024 End: 05-07-2024 ambulatory AMERICA DAVIS [facility] Start: 05-07-2024 End: 05-07-2024 Office outpatient visit 25 minutes America Davis NEWSPAPER EDITOR MANAGING - PURCHASING AND CLAIMS SUPERVISOR Work Phone: [facility] Comment on above: Severe aortic stenos is (Primary Dx); PAF (paroxysmal atrial fibrillation) (HCC); Essential hypertension; Complete heart block (HCC) Start: 05-07-2024 End: 05-07-2024 ambulatory LINDSEY TOLENTINO [facility] Start: 05-07-2024 End: 05-07-2024 Subsequent hospital visit by physician Lindsey Tolentino APRN - [place] Work Phone: [facility] [address] [facility]Invasive Cardiology Comment on above: Aortic valve stenosi s, etiology of cardiac valve disease unspecified Start: 05-07-2024 End: 05-07-2024 ambulatory VY MORA [facility] Start: 05-04-2024 End: 05-04-2024 ambulatory ABBY Jerry MCCLELLAN Facility:[facility] Start: 04-23-2024 End: 04-23-2024 Refill Abby Mcclellan MD Work Phone: [facility] [place] Comment on above: Refill Request Start: 04-17-2024 End: 04-17-2024 Office outpatient visit 25 minutes Lindsey Tolentino APRN - PURCHASING AND CLAIMS SUPERVISOR Work Phone: [facility] Cardiology - [place] Comment on above: S/P TAVR (transcathe ter aortic valve replacement) (Primary Dx); Essential hypertension; Aortic valve stenosis, etiology of cardiac valve disease unspecified; Complete heart block (CMS/HCC) ([facility]) Start: 04-17-2024 End: 04-17-2024 ambulatory LINDSEY TOLENTINO [facility] Start: 04-06-2024 End: 04-08-2024 Evaluation and management of inpatient Srinivasa Poon MD Work Phone: [facility] Cardiac Thoracic Vascular Intensive Care Unit CTV ICU T1 Comment on above: Nonrheumatic aortic valve stenosis (Primary Dx); Severe aortic stenosis; Complete heart block (CMS/HCC) ([facility]) Start: 04-03-2024 End: 04-03-2024 ambulatory America Davis NEWSPAPER EDITOR MANAGING - PURCHASING AND CLAIMS SUPERVISOR Work Phone: [facility] Cardiology Comment on above: Severe aortic stenos is (Primary Dx) Start: 04-01-2024 End: 04-01-2024 ambulatory ABBY MCCLELLAN Facility:[facility] Start: 03-10-2024 End: 03-10-2024 Office outpatient new 60 minutes Ira Aquino MD Work Phone: [facility] Cardiology Comment on above: Severe aortic stenos is (Primary Dx); Memory loss; Dizziness; Daytime hypersomnolence; Polypharmacy Nonrheumatic aortic valve stenosis (Primary Dx); PAF (paroxysmal atrial fibrillation) ([facility]) Severe aortic stenos is (Primary Dx) Start: 03-10-2024 End: 03-10-2024 ambulatory AMERICAOSCAR DAVIS [facility] Start: 03-10-2024 End: 03-10-2024 Subsequent hospital visit by physician America Davis NEWSPAPER EDITOR MANAGING - PURCHASING AND CLAIMS SUPERVISOR Work Phone: [facility] [address] Comment on above: Nonrheumatic aortic valve stenosis Start: 03-06-2024 Refill Abby monroy MD Work Phone: [facility] [place] Comment on above: Refill Request Start: 02-25-2024 End: 02-25-2024 ambulatory KAMLESH ACOSTA Facility:[facility] Start: 02-25-2024 End: 02-25-2024 Patient encounter procedure Kamlesh Acosta NEWSPAPER EDITOR MANAGING.PURCHASING AND CLAIMS SUPERVISOR Work Phone: [facility] [place] Comment on above: Medicare annual well ness [...] Start: 02-19-2024 End: 02-19-2024 ambulatory KAMLESH ACOSTA Facility:[facility] Start: 11-15-2023 Refill Abby monroy MD Work Phone: [facility] [place] Comment on above: Refill Request Start: 11-12-2023 Refill Kamlesh Morgan PRN.PURCHASING AND CLAIMS SUPERVISOR Work Phone: [facility] [place] Comment on above: Refill Request Start: 10-07-2023 Telephone encounter Myranda [facility] Comment on above: New Primary Care Pha rmacy Appt. Start: 10-03-2023 ambulatory [facility] Work Phone: [facility] Start: 07-12-2023 Telephone encounter Abby doshi MD Work Phone: Radiology Comment on above: Orders (labs) Start: 05-16-2023 Refill Abby monroy MD Work Phone: [facility] [place] Comment on above: Refill Request Start: 05-11-2023 End: 05-11-2023 ambulatory [facility] [place] Work Phone: [facility] [place] Start: 04-29-2023 Documentation procedure Mammog andre Coordinator [facility] Start: 04-29-2023 Letter encounter Mammography Coordinator [facility] Department Start: 04-26-2023 End: 04-26-2023 Subsequent hospital visit by physician Screen Mammo [facility] Comment on above: Encounter for screen ing mammogram for breast cancer [Z12.31] Start: 04-19-2023 End: 04-19-2023 Patient encounter procedure Kamlesh Dave NEWSPAPER EDITOR MANAGING.PURCHASING AND CLAIMS SUPERVISOR Work Phone: [facility] [place] Comment on above: Type 2 diabetes jose roberto itus with hyperglycemia, without long-term current use of insulin (HCC) (Primary Dx); Essential hypertension; Hyperlipidemia associated with type 2 diabetes mellitus (HCC) ; Moderate aortic stenosis by prior echocardiogram; Acute cough Start: 01-18-2023 Telephone encounter Abby doshi MD Work Phone: [facility] [place] Comment on above: Orders (glucometer) Start: 01-16-2023 ambulatory Genna Steiner [facility] Comment on above: Population Health Na vigation Outreach ([employer] [facility] G[facility] ) Start: 11-09-2022 Refill Abby monroy MD Work Phone: [facility] Comment on above: Refill Request Start: 10-18-2022 Telephone encounter Abby doshi MD Work Phone: [facility] [place] Comment on above: Statin Therapy Start: 07-31-2022 End: 07-31-2022 Subsequent hospital visit by physician Xr [facility] [place] Work Phone: Radiology Comment on above: Acute cough [R05.1] Start: 07-31-2022 End: 07-31-2022 Patient encounter procedure Keily Faye NEWSPAPER EDITOR MANAGING.PURCHASING AND CLAIMS SUPERVISOR Work Phone: [facility] Comment on above: Acute cough (Primary Dx) Start: 05-15-2022 End: 05-15-2022 Nursing evaluation of patient and report Mi Nurse Work Phone: [facility] [place] Comment on above: Need for vaccination (Primary Dx) Start: 05-04-2022 Telephone encounter [place] holden NEWSPAPER EDITOR MANAGING.RIP/MOULD OPERATOR Work Phone: [facility] [place] Comment on above: Orders Start: 04-25-2022 End: 04-25-[address] Abby Mcclellan Work Phone: [facility] Work Phone: Start: 04-25-2022 End: 04-25-[address] Abby Mcclellan Work Phone: [facility]-Outpatient Breast Imaging Start: 04-18-2022 End: 04-18-2022 Office outpatient visit 25 minutes Abby Mcclellan MD Work Phone: [facility] [place] Comment on above: Controlled type 2 di abetes mellitus without complication, without long-term current use of insulin (HCC) (Primary Dx); Plantar fasciitis of right foot; Nonrheumatic aortic valve stenosis; Encounter for screening mammogram for breast cancer; Essential hypertension Start: 02-12-2022 End: 02-12-[address] Abby Mcclellan Work Phone: [facility] Start: 12-22-2021 ambulatory Munira Edouard [place] [facility] [place] Comment on above: Population Health Na vigation Outreach ([employer] care gaps) Start: 12-05-2021 Telephone encounter Abby doshi MD Work Phone: [facility] [place] Comment on above: Follow Up (helevated glucose) Start: 12-01-2021 Non-patient / Non-visit Dr. Alyssa Mcclellan Work Phone: [facility] Start: 12-01-2021 End: 12-01-[address] Abby Mcclellan Work Phone: [facility]Cardiovascula [facility] Services Start: 11-01-2021 End: 11-01-[address] Abby Mcclellan Work Phone: [facility] Start: 05-18-2020 End: 05-18-2020 Subsequent hospital visit by physician Xr [facility] Work Phone: Radiology Comment on above: Cough [R05] Procedures Date Procedure Procedure Detail Performing Clinician Start: 05-07-2024 Echo tthrc r-t 2d w/ wom-mode compl spec&colr d Lindsey Tolentino APRN - PURCHASING AND CLAIMS SUPERVISOR Work Phone: Start: 05-07-2024 Ecg routine ecg w/le ast 12 lds trcg only w/o i&r Srinivasa Poon MD Work Phone: Start: 04-17-2024 Ecg routine ecg w/le ast 12 lds trcg only w/o i&r Srinivasa Poon MD Work Phone: Start: 04-08-2024 Glucose quantitative blood xcpt reagent strip Srinivasa Poon MD Work Phone: Start: 04-08-2024 Radiologic exam ches t 2 views Pita Vasquezhan NEWSPAPER EDITOR MANAGING - PURCHASING AND CLAIMS SUPERVISOR Work Phone: Start: 04-08-2024 Glucose quantitative blood [...] lds trcg only w/o i&r Pita Horvathoolagkala NEWSPAPER EDITOR MANAGING - PURCHASING AND CLAIMS SUPERVISOR Work Phone: Start: 04-07-2024 Electrophysiology study Katia Augustin NEWSPAPER EDITOR MANAGING - PURCHASING AND CLAIMS SUPERVISOR Work Phone: Start: 04-07-2024 Ecg routine ecg w/le ast 12 lds trcg only w/o i&r Lindsey Tolentino NEWSPAPER EDITOR MANAGING - PURCHASING AND CLAIMS SUPERVISOR Work Phone: Start: 04-07-2024 Ecg routine ecg w/le ast 12 lds trcg only w/o i&r Srinivasa Poon MD Work Phone: Start: 04-07-2024 Echo tthrc r-t 2d w/ wom-mode compl spec&colr d Lindsey Tolentino NEWSPAPER EDITOR MANAGING - PURCHASING AND CLAIMS SUPERVISOR Work Phone: Start: 04-07-2024 End: 04-07-2024 Glucose quantitative blood xcpt reagent strip Srinivasa Poon MD Work Phone: Start: 04-07-2024 OXYGEN THERAPY Lindsey Delatorre Fer NEWSPAPER EDITOR MANAGING - PURCHASING AND CLAIMS SUPERVISOR Work Phone: Start: 04-07-2024 Ecg routine ecg w/le ast 12 lds trcg only w/o i&r Lindsey Delatorre Fer NEWSPAPER EDITOR MANAGING - PURCHASING AND CLAIMS SUPERVISOR Work Phone: Start: 04-07-2024 Basic metabolic pane l calcium total Lindsey Delatorre Fer NEWSPAPER EDITOR MANAGING - PURCHASING AND CLAIMS SUPERVISOR Work Phone: Start: 04-06-2024 Glucose quantitative blood xcpt reagent strip Srinivasa Poon MD Work Phone: Start: 04-06-2024 OXYGEN THERAPY Lindsey Delatorre Fer NEWSPAPER EDITOR MANAGING - PURCHASING AND CLAIMS SUPERVISOR Work Phone: Start: 04-06-2024 Glucose quantitative blood xcpt reagent strip Srinivasa Poon MD Work Phone: Start: 04-06-2024 Ecg routine ecg w/le ast 12 lds trcg only w/o i&r Lindsey Delatorre Fer NEWSPAPER EDITOR MANAGING - PURCHASING AND CLAIMS SUPERVISOR Work Phone: Start: 04-06-2024 Basic metabolic pane l calcium total Lindsey Delatorre Fer NEWSPAPER EDITOR MANAGING - PURCHASING AND CLAIMS SUPERVISOR Work Phone: Start: 04-06-2024 End: 04-06-2024 OXYGEN THERAPY Al HADLEY RN - TOOL MACHINE SETUP OPERATOR Work Phone: Start: 04-06-2024 Cardiac catheterizat ion [...] on above: Performed By: #### L [id number] ####Clinical Resource Coordinator: GRISEL GARZA ([phone])[facility] ([facility])[address] [place] [address] Start: 04-06-2024 ABO and Rh group [Ty pe] in Blood by Confirmatory method America Davis NEWSPAPER EDITOR MANAGING - PURCHASING AND CLAIMS SUPERVISOR Work Phone: Start: 04-06-2024 Blood typing serologic abo America Davis NEWSPAPER EDITOR MANAGING - PURCHASING AND CLAIMS SUPERVISOR Work Phone: Start: 04-06-2024 Glucose quantitative blood xcpt reagent strip Srinivasa Poon MD Work Phone: Start: 04-01-2024 Antibody screen KAMLESH PIRES Comment on above: Order Comment: Speci men Type: BLOOD SPECIMENOrdering Facility: [facility] Address: [address] [place] [address] Performed By: #### T SCR ####CC [facility] [id number] [place] [address] [place] Start: 03-10-2024 Ecg routine ecg w/le ast 12 lds trcg only w/o i&r Srinivasa Poon MD Work Phone: Start: 02-25-2024 Adult depression scr eening assessment Kamlesh Acosta NEWSPAPER EDITOR MANAGING.PURCHASING AND CLAIMS SUPERVISOR Work Phone: Start: 05-11-2023 INFLUENZA VACCINE, P RSV FREE, AGE 65+ YR, HIGH DOSE, QUADRIVALENT (FLUZONE HIGH-DOSE) Abby Mcclellan MD Work Phone: Start: 04-26-2023 Screening mammograph y bi 2-view breast inc cad Abby Mcclellan MD Work Phone: Start: 07-31-2022 Radiologic exam ches t 2 views Keily Mckinney NEWSPAPER EDITOR MANAGING.PURCHASING AND CLAIMS SUPERVISOR Work Phone: Start: 04-25-2022 End: 04-25-[address] Abby Mcclellan Work Phone: Start: 04-20-2021 Mammography Abby pierce MD Work Phone: Start: 02-14-2021 Adult depression scr eening assessment Abby Mcclellan MD Work Phone: Start: 05-18-2020 Radiologic exam ches t 2 views Abdullahi Flannery NEWSPAPER EDITOR MANAGING.PURCHASING AND CLAIMS SUPERVISOR Work Phone: Start: 02-10-2019 Colonoscopy Heidy holden NEWSPAPER EDITOR MANAGING.RIP/MOULD OPERATOR Work Phone: Start: 02-02-2019 Colonoscopy Abby pierce MD Work Phone: Plan of Treatment Date Care Activity Detail Author Start: 02-10-2029 Colonoscopy COLONOSCOPY [facility] Start: 02-10-2029 COLORECTAL CANCER SCREENING COLORECTAL CANCER SCREENING [facility] Start: 02-10-2029 Screening for malign ant neoplasm of colon [facility] Start: 01-11-2026 Annual PCP Team Curtain Fitter kaleb Disease Visit Annual PCP Team Chronic Disease Visit [facility] Start: 11-10-2025 Annual PCP Team Curtain Fitter kaleb Disease Visit Annual PCP Team Chronic Disease Visit [facility] Start: 11-10-2025 BP Controlled (<130/80) BP Controlle d (<130/80) [facility] Start: 09-29-2025 Annual PCP Team Curtain Fitter kaleb Disease Visit Annual PCP Team Chronic Disease Visit [facility] Start: 09-29-2025 BP Controlled (<130/80) BP Controlle d (<130/80) [facility] Start: 09-19-2025 Hepatitis B screening Urine Al bumin:Creatinine Ratio [facility] Start: 09-19-2025 Hepatitis B surface antibody level LDL Cholesterol [facility] Start: 06-19-2025 Glaucoma screening Dilated Retinal E xam [facility] Start: 05-21-2025 End: 04-17-2026 US Heart Transthoracic Transthoracic echocardiogram (TTE) complete with contrast, bubble, strain, and 3D PRN CV Echocardiography Routine S/P TAVR (transcatheter aortic valve replacement) Aortic valve stenosis, etiology of cardiac valve disease unspecified Expected: 05/21/2025 (Approximate), Expires: 04/17/2026 [facility] Comment on above: Expected: 05/21/2025 (Approximate), Expires: 04/17/2026 Start: 05-04-2025 Diabetes: Estimated Glomerular Filtration Rate for Kidney Health Diabetes: Estimated Glomerular Filtration Rate for Kidney Health [facility] Start: 04-08-2025 Diabetes: Estimated Glomerular Filtration Rate for Kidney Health Diabetes: Estimated Glomerular Filtration Rate for Kidney Health [facility] Start: 04-01-2025 Diabetes: Estimated Glomerular Filtration Rate for Kidney Health Diabetes: Estimated Glomerular Filtration Rate for Kidney Health [facility] Start: 03-29-2025 Influenza vaccination [facility] Start: 03-04-2025 End: 03-04-2025 Patient encounter procedure [facility] [address] [facility] Start: 02-24-2025 Annual PCP Team Curtain Fitter kaleb Disease Visit Annual PCP Team Chronic Disease Visit [facility] Start: 02-24-2025 Anxiety Screening Anxiety Screening [facility] Start: 02-24-2025 BP Controlled (<130/80) BP Controlle d (<130/80) [facility] Start: 02-24-2025 Depression Screening Depression Scre ening [facility] Start: 02-15-2025 End: 02-15-2025 Patient encounter procedure 02/15/2025 11:00 AM EDT Office Visit Internal Medicine [place] [address] [place] [address] Kamlesh Acosta APRN.PURCHASING AND CLAIMS SUPERVISOR [address] [place] [address] 5 week follow up of pain and new medications [facility] Comment on above: 5 week follow up of pain and new medications Start: 01-11-2025 End: 01-11-2025 Patient encounter procedure 01/11/2025 11:20 AM EDT Office Visit Internal Medicine [place] [address] [place] [address] Kamlesh Acosta APRN.PURCHASING AND CLAIMS SUPERVISOR [address] [place] [address] 8 week follow up [facility] Comment on above: 8 week follow up Start: 12-17-2024 Hemoglobin A1c measurement HbA1C [facility] Start: 11-10-2024 End: 11-10-2024 Patient encounter procedure 11/10/2024 11:20 AM EDT Office Visit Internal Medicine [place] [address] [place] [address] Kamlesh Acosta APRN.PURCHASING AND CLAIMS SUPERVISOR [address] [place] [address] 6 week follow up [facility] Comment on above: 6 week follow up Start: 10-24-2024 Annual PCP Team Curtain Fitter kaleb Disease Visit Annual PCP Team Chronic Disease Visit [facility] Start: 10-24-2024 BP Controlled (<130/80) BP Controlle d (<130/80) [facility] Start: 10-24-2024 Covid-19 Vaccine () Covid-19 Vaccine () [facility] Comment on above: Postponed from 03/29 (Declined at this time) Start: 10-24-2024 Diabetic foot examination Diabetic Foot Exam [facility] Start: 10-17-2024 Hepatitis B surface antibody level LDL Cholesterol [facility] Start: 09-29-2024 End: 09-29-2024 Patient encounter procedure [facility] Comment on above: follow up Start: 09-12-2024 End: 12-12-2024 Comprehensive metabolic 2000 panel - Serum or Plasma COMPREHENSIVE METABOLIC PANEL Lab Routine Type 2 diabetes mellitus with other specified complication, without long-term current use of insulin (HCC) Hypertension goal BP (blood pressure) < 140/90 Expected: 09/12/2024 (Approximate), Expires: 12/12/2024 [facility] Comment on above: Expected: 09/12/2024 (Approximate), Expires: 12/12/2024 Start: 09-12-2024 End: 12-12-2024 Hemoglobin A1c in Blood HEMOGLOBIN A1C Lab Routine Type 2 diabetes mellitus with other specified complication, without long-term current use of insulin (HCC) Expected: 09/12/2024 (Approximate), Expires: 12/12/2024 [facility] Work Phone: Comment on above: Expected: 09/12/2024 (Approximate), Expires: 12/12/2024 Start: 09-12-2024 End: 12-12-2024 Lipid 1996 panel - Serum or Plasma LIPID PANEL BASIC Lab Routine Hyperlipidemia associated with type 2 diabetes mellitus (HCC) (HCC) Expected: 09/12/2024 (Approximate), Expires: 12/12/2024 [facility] Comment on above: Expected: 09/12/2024 (Approximate), Expires: 12/12/2024 Start: 09-12-2024 End: 12-12-2024 Microalbumin/Creatinine [Mass Ratio] in Urine ALBUMIN/CREATININE RATIO, URINE Lab Routine Type 2 diabetes mellitus with other specified complication, without long-term current use of insulin (HCC) Expected: 09/12/2024 (Approximate), Expires: 12/12/2024 [facility] Comment on above: Expected: 09/12/2024 (Approximate), Expires: 12/12/2024 Start: 08-21-2024 Hemoglobin A1c measurement HbA1C [facility] Start: 07-29-2024 Advance Directive Discussion Advance Directive Discussion [facility] Start: 07-29-2024 Medicare Advantage Annual Wellness Visit Medicare Advantage Annual Wellness Visit [facility] Start: 07-26-2024 Annual PCP Team Curtain Fitter kaleb Disease Visit Annual PCP Team Chronic Disease Visit [facility] Start: 07-26-2024 BP Controlled (<130/80) BP Controlle d (<130/80) [facility] Start: 07-26-2024 Diabetes: Urine Albumin-Creatinine Ratio for Kidney Health Diabetes: Urine Albumin-Creatinine Ratio for Kidney Health [facility] Start: 07-26-2024 Hepatitis B screening Urine Al bumin:Creatinine Ratio [facility] Start: 07-10-2024 End: 07-10-2024 Professional / ancillary services management 07/10/2024 1:00 PM EST Ancillary Procedure [facility] [place] [address] [place] [id number] [facility] [place] Start: 06-29-2024 End: 06-29-2024 Patient encounter procedure 06/29/2024 11:20 AM EST Office Visit Internal Medicine [facility] [address] [place] [address] Heidy Hawk, NEWSPAPER EDITOR MANAGING.RIP/MOULD OPERATOR [address] [place], [place] [address] 4 month follow up [facility] Comment on above: 4 month follow up Start: 06-01-2024 End: 08-31-2024 CBC W Auto Differential panel - Blood COMPLETE BLOOD COUNT AND DIFFERENTIAL Lab Routine Encounter for therapeutic drug monitoring Expected: 06/01/2024, Expires: 08/31/2024 [facility] Work Phone: Comment on above: Expected: 06/01/2024 , Expires: 08/31/2024 Start: 06-01-2024 End: 08-31-2024 Comprehensive metabolic 2000 panel - Serum or Plasma COMPREHENSIVE METABOLIC PANEL Lab Routine Encounter for therapeutic drug monitoring Expected: 06/01/2024, Expires: 08/31/2024 [facility] Comment on above: Expected: 06/01/2024 , Expires: 08/31/2024 Start: 06-01-2024 End: 08-31-2024 Hemoglobin A1c in Blood HEMOGLOBIN A1C Lab Routine Type 2 diabetes mellitus with other specified complication, without long-term current use of insulin (HCC) Expected: 06/01/2024, Expires: 08/31/2024 [facility] Comment on above: Expected: 06/01/2024 , Expires: 08/31/2024 Start: 06-01-2024 End: 08-31-2024 Lipid 1996 panel - Serum or Plasma LIPID PANEL BASIC Lab Routine Hyperlipidemia associated with type 2 diabetes mellitus (HCC) (HCC) Expected: 06/01/2024, Expires: 08/31/2024 [facility] Comment on above: Expected: 06/01/2024 , Expires: 08/31/2024 Start: 05-29-2024 Glaucoma screening Dilated Retinal E xam [facility] Start: 05-29-2024 Hepatitis C antibody , confirmatory test Dilated Retinal Exam [facility] Start: 05-07-2024 End: 05-07-2024 Patient encounter procedure [facility] [address] [facility] Start: 05-07-2024 End: 05-07-2024 Professional / ancillary services management 05/07/2024 1:30 PM EDT Ancillary Procedure [facility] [place] [address] [place] [id number] [facility] [place] Start: 04-28-2024 End: 04-28-2024 Professional / ancillary services management 04/28/2024 1:00 PM EDT Ancillary Procedure [facility] [address] [place] [address] [facility] Start: 04-26-2024 Mammography Mammogram Screening [facility] Start: 04-26-2024 Screening for malign ant neoplasm of breast Mammogram Screening [facility] Start: 04-19-2024 Annual PCP Team Curtain Fitter kaleb Disease Visit Annual PCP Team Chronic Disease Visit [facility] Start: 04-19-2024 BP Controlled (<130/80) BP Controlle d (<130/80) [facility] Start: 04-19-2024 Hemoglobin A1c measurement HbA1C [facility] Start: 04-17-2024 End: 04-17-2025 Basic metabolic 1998 panel - Serum or Plasma Basic metabolic panel Lab Routine Essential hypertension S/P TAVR (transcatheter aortic valve replacement) Aortic valve stenosis, etiology of cardiac valve disease unspecified Expected: 04/17/2024 (Approximate), Expires: 04/17/[address] [facility] Work Phone: Comment on above: Expected: 04/17/2024 (Approximate), Expires: 04/17/2025 Start: 04-17-2024 End: 04-17-2025 CBC W Auto Differential panel - Blood CBC auto differential Lab Routine Essential hypertension S/P TAVR (transcatheter aortic valve replacement) Aortic valve stenosis, etiology of cardiac valve disease unspecified Expected: 04/17/2024 (Approximate), Expires: 04/17/2025 [facility] Comment on above: Expected: 04/17/2024 (Approximate), Expires: 04/17/2025 Start: 04-17-2024 End: 04-17-2025 Thyrotropin [Units/volume] in Serum or Plasma TSH Lab Routine Essential hypertension S/P TAVR (transcatheter aortic valve replacement) Aortic valve stenosis, etiology of cardiac valve disease unspecified Expected: 04/17/2024 (Approximate), Expires: 04/17/2025 [facility] Comment on above: Expected: 04/17/2024 (Approximate), Expires: 04/17/2025 Start: 04-16-2024 End: 04-16-2024 Patient encounter procedure 04/16/2024 1:30 PM EDT Office Visit [facility] [address] [place] [phone] America Davis APRN - PURCHASING AND CLAIMS SUPERVISOR [address] [place] [address] [facility] Start: 04-15-2024 Hepatitis B surface antibody level LDL Cholesterol [facility] Start: 04-06-2024 End: 04-06-2024 Admission to same day surgery center 04/06/2024 11:00 AM EDT - 04/06/2024 12:45 PM EDT Surgery [facility] [address] [facility] [place] [address] Srinivasa Poon MD [address] [facility] [address] [place] [address] TRANSCATHETER AORTIC VALVE REPLACEMENT, TRANSTHORACIC ECHOCARDIOGRAM [facility] Comment on above: TRANSCATHETER AORTIC VALVE REPLACEMENT, TRANSTHORACIC ECHOCARDIOGRAM Start: 04-06-2024 End: 04-06-2024 Anesthesia consultation 04/06/2024 11:00 AM EDT Anesthesia Event [facility] [address] [facility] [place] [address] Radha Marquez, NEWSPAPER EDITOR MANAGING - PURCHASING AND CLAIMS SUPERVISOR [address] [facility] [address] [place] [address] [facility] Start: 04-06-2024 Subsequent hospital visit by physician 04/06/2024 11:00 AM EDT Hospital Encounter [facility] [address] [facility] [place] [address] Srinivasa Poon MD [address] [facility] [address] [place], [place] [id number] Nonrheumatic aortic valve stenosis [facility] Comment on above: Nonrheumatic aortic valve stenosis Start: 04-06-2024 End: 04-06-2024 TRANSCATHETER AORTIC VALVE REPLACEMENT (TAVR) - OR TRANSCATHETER AORTIC VALVE REPLACEMENT (TAVR) - OR Nonrheumatic aortic valve stenosis 04/06/2024 11:00 AM EDT [facility] Start: 03-29-2024 COVID-19 Vaccine ( season) COVID-19 Vaccine ( season) [facility] Start: 03-29-2024 Covid-19 Vaccine ( season) Covid-19 Vaccine () [facility] Start: 03-29-2024 Influenza vaccination Influenza Vacc ine (#1) [facility] Start: 12-18-2023 ANNUAL PCP TEAM WEB PRODUCER KALEB DISEASE VISIT ANNUAL PCP TEAM CHRONIC DISEASE VISIT [facility] Start: 12-18-2023 BP CONTROLLED (<130/80) BP CONTROLLE D (<130/80) [facility] Start: 12-13-2023 Hepatitis B surface antibody level LDL CHOLESTEROL [facility] Start: 10-25-2023 Hemoglobin A1c measurement HbA1C [facility] Start: 08-14-2023 ANNUAL PCP TEAM WEB PRODUCER KALEB DISEASE VISIT ANNUAL PCP TEAM CHRONIC DISEASE VISIT [facility] Start: 08-06-2023 Hepatitis B screening URINE AL BUMIN:CREATININE RATIO [facility] Start: 08-06-2023 Hepatitis B surface antibody level LDL CHOLESTEROL [facility] Start: 07-31-2023 BP CONTROLLED (<130/80) BP CONTROLLE D (<130/80) [facility] Start: 07-29-2023 Advance Directive Discussion Advance Directive Discussion [facility] Start: 07-29-2023 Behavioral Health Screening Behavioral Health Screening [facility] Start: 07-29-2023 Depression Assessment Depression Ass essment [facility] Start: 07-29-2023 Medicare Advantage Annual Wellness Visit Medicare Advantage Annual Wellness Visit [facility] Start: 07-15-2023 Hemoglobin A1c measurement HbA1C [facility] Start: 07-15-2023 Hemoglobin A1c/Hemoglobin.total in Blood HbA1C [facility] Start: 2023 Hemoglobin A1c/Hemoglobin.total in Blood HBA1C [facility] Start: 2023 RSV Immunization for Adults (1 - 1-dose 75+ series) RSV Immunization for Adults (1 - 1-dose 75+ series) [facility] Start: 2023 RSV Vaccine (1 - 1-d ose 75+ series) RSV Vaccine (1 - 1-dose 75+ series) [facility] Start: 04-25-2023 Mammography [facility] Start: 04-18-2023 ANNUAL PCP TEAM WEB PRODUCER KALEB DISEASE VISIT ANNUAL PCP TEAM CHRONIC DISEASE VISIT [facility] Start: 04-18-2023 BP CONTROLLED (<130/80) BP CONTROLLE D (<130/80) [facility] Start: 04-18-2023 COVID-19 VACCINE (#1) COVID-19 VACCI NE (#1) [facility] Comment on above: Postponed from 12/12 (Declined at this time) Start: 04-18-2023 SHINGRIX VACCINE (1 of 2) SHINGRIX VACCINE (1 of 2) [facility] Comment on above: Postponed from 06/14 (Declined at this time) Start: 04-18-2023 Urine microalbumin profile DTAP,TDAP,TD (1 - Tdap) [facility] Comment on above: Postponed from 09/07 (Declined at this time) Start: 04-03-2023 Hepatitis C antibody , confirmatory test DILATED RETINAL EXAM [facility] Start: 03-29-2023 Covid-19 Vaccine ( season) Covid-19 Vaccine ( season) [facility] Start: 03-29-2023 Influenza vaccination Influenza Vacc ine (#1) [facility] Start: 02-03-2023 Hemoglobin A1c/Hemoglobin.total in Blood HBA1C [facility] Start: 12-07-2022 BP CONTROLLED (<130/80) BP CONTROLLE D (<130/80) [facility] Start: 10-10-2022 Hemoglobin A1c/Hemoglobin.total in Blood HBA1C [facility] Start: 09-06-2022 ANNUAL PCP TEAM WEB PRODUCER KALEB DISEASE VISIT ANNUAL PCP TEAM CHRONIC DISEASE VISIT [facility] Start: 08-28-2022 Hepatitis B screening URINE AL BUMIN:CREATININE RATIO [facility] Start: 08-18-2022 End: 10-18-2022 ALBUMIN/CREAT RATIO RND UR ALBUMIN/CREAT RATIO RND UR Lab Routine Controlled type 2 diabetes mellitus without complication, without long-term current use of insulin (HCC) Expected: 08/18/2022 (Approximate), Expires: 10/18/2022 [facility] Work Phone: Comment on above: Expected: 08/18/2022 (Approximate), Expires: 10/18/2022 Start: 08-18-2022 End: 10-18-2022 CBC panel - Blood by Automated count CBC Lab Routine Controlled type 2 diabetes mellitus without complication, without long-term current use of insulin (HCC) Essential hypertension Expected: 08/18/2022 (Approximate), Expires: 10/18/2022 [facility] Work Phone: Comment on above: Expected: 08/18/2022 (Approximate), Expires: 10/18/2022 Start: 08-18-2022 End: 10-18-2022 Comprehensive metabolic 2000 panel - Serum or Plasma COMP METABOLIC PANEL Lab Routine Controlled type 2 diabetes mellitus without complication, without long-term current use of insulin (HCC) Essential hypertension Expected: 08/18/2022 (Approximate), Expires: 10/18/2022 [facility] Work Phone: Comment on above: Expected: 08/18/2022 (Approximate), Expires: 10/18/2022 Start: 08-18-2022 End: 10-18-2022 Hemoglobin A1c in Blood HGB A1C Lab Routine Controlled type 2 diabetes mellitus without complication, without long-term current use of insulin (HCC) Expected: 08/18/2022 (Approximate), Expires: 10/18/2022 [facility] Work Phone: Comment on above: Expected: 08/18/2022 (Approximate), Expires: 10/18/2022 Start: 08-18-2022 End: 10-18-2022 Lipid 1996 panel - Serum or Plasma LIPID PANEL BASIC Lab Routine Controlled type 2 diabetes mellitus without complication, without long-term current use of insulin (HCC) Essential hypertension Expected: 08/18/2022 (Approximate), Expires: 10/18/2022 [facility] Work Phone: Comment on above: Expected: 08/18/2022 (Approximate), Expires: 10/18/2022 Start: 07-29-2022 ADVANCE DIRECTIVE DISCUSSION ADVANCE DIRECTIVE DISCUSSION [facility] Start: 07-29-2022 DEPRESSION ASSESSMENT DEPRESSION ASS ESSMENT [facility] Start: 07-10-2022 SHINGRIX VACCINE (2 of 2) SHINGRIX VACCINE (2 of 2) [facility] Start: 07-03-2022 Hzv zoster vacc recombinant adjuvanted im njx ZOSTER VACC RECOMBINANT,IM Immunization/Injection Routine Need for vaccination Expected: 07/03/2022 (Approximate) [facility] Work Phone: Comment on above: Expected: 07/03/2022 (Approximate) Start: 04-20-2022 Mammography MAMMOGRAM [facility] Start: 03-29-2022 Influenza vaccination INFLUENZA (#1) [facility] Start: 03-06-2022 Hemoglobin A1c/Hemoglobin.total in Blood HBA1C [facility] Start: 02-14-2022 3 comp foot exam completed DIABETIC FOOT EXAM [facility] Start: 02-14-2022 Adult depression screening assessment DEPRESSION SCREENING [facility] Start: 02-14-2022 COVID-19 VACCINE (#1) COVID-19 VACCI NE (#1) [facility] Comment on above: Postponed from 06/14 (Declined at this time) Start: 02-14-2022 Diabetic foot examination Diabetic Foot Exam [facility] Start: 02-10-2022 Hepatitis B surface antibody level LDL CHOLESTEROL [facility] Start: 02-02-2022 Colonoscopy COLONOSCOPY [facility] Start: 02-02-2022 COLORECTAL CANCER SCREENING COLORECTAL CANCER SCREENING [facility] Start: 07-29-2021 ADVANCE DIRECTIVE DISCUSSION ADVANCE DIRECTIVE DISCUSSION [facility] Start: 07-29-2021 DEPRESSION ASSESSMENT DEPRESSION ASS ESSMENT [facility] Start: 03-10-2021 Hepatitis C antibody , confirmatory test DILATED RETINAL EXAM [facility] Start: 09-07-2011 DTaP/Tdap/Td Vaccine s (1 - Tdap) DTaP/Tdap/Td Vaccines (1 - Tdap) [facility] Start: 09-07-2011 Urine microalbumin profile [facility] Start: 2008 Hepatitis B Vaccine (1 of 3 - Risk 3-dose series) Hepatitis B Vaccine (1 of 3 - Risk 3-dose series) [facility] Start: 2008 RSV Immunization age d 60 or older (1 - 1-dose 60+ series) RSV Immunization aged 60 or older (1 - 1-dose 60+ series) [facility] Start: 2008 RSV Vaccine (1 - 1-d ose 60+ series) RSV Vaccine (1 - 1-dose 60+ series) [facility] Start: 1998 SHINGRIX VACCINE (1 of 2) SHINGRIX VACCINE (1 of 2) [facility] Start: 1993 COLOGUARD (FIT-DNA) COLOGUARD (FIT-D NA) [facility] Start: [address] COLONOGRAPHY [facility] Start: 1993 FECAL OCCULT BLOOD FECAL OCCULT BLOO D [facility] Start: 1993 Screening for malign ant neoplasm of colon [facility] Start: 1993 SIGMOIDOSCOPY SIGMOIDOSCOPY [facility] Start: 1966 BP CONTROLLED (<130/80) BP CONTROLLE D (<130/80) [facility] Start: 1966 Diabetes: Estimated Glomerular Filtration Rate for Kidney Health Diabetes: Estimated Glomerular Filtration Rate for Kidney Health [facility] Start: 1966 Hepatitis C screening Hepatitis C Sc reening [facility] Start: 1960 Depression Screening Depression Scre ening [facility] Start: 1958 Glaucoma screening Diabetes: R etinopathy Screening [facility] Start: 1948 Covid-19 Vaccine (#1) Covid-19 Vacci ne (#1) [facility] Start: 1948 Screening for malign ant neoplasm of colon [facility] Start: 1950 Screening for osteoporosis Bone Density Scan [facility] End: 03-10-2024 CT Chest WO and CT angiogram Coronary arteries W contrast IV [facility] Work Phone: Comment on above: Once for 1 Occurrenc es starting 03/10/2024 until 03/10/2024 ECG 12 lead - CLINIC PERFORMED ECG 12 lead - CLINIC PERFORMED CV ECG Routine PAF (paroxysmal atrial fibrillation) (HCC) 03/10/2024 3:05 PM EDT [facility] Work Phone: ECG 12 lead - CLINIC PERFORMED ECG 12 lead - CLINIC PERFORMED CV ECG Routine Essential hypertension 04/17/2024 1:10 PM EDT [facility] Work Phone: ECG 12 lead - CLINIC PERFORMED ECG 12 lead - CLINIC PERFORMED CV ECG Routine Severe aortic stenosis 05/07/2024 3:[address] [facility] Work Phone: Hzv zoster vacc recombinant adjuvanted im njx ZOSTER VACC RECOMBINANT,IM Immunization/Injection Routine Need for vaccination Ordered: 05/04/2022 [facility] Work Phone: Comment on above: Ordered: 05/04/2022 End: 05-18-2023 Screening mammography bi 2-view breast inc cad DAVID SCREENING Radiology Routine Encounter for screening mammogram for breast cancer 1 Occurrences starting 04/18/2022 until 05/18/2023 [facility] Work Phone: Comment on above: 1 Occurrences starti ng 04/18/2022 until 05/18/2023 [place] Immunizations Immunization Date Immunization Notes Care Provider Chelsie barry 09-29-2024 influenza, high dose seasonal, preservative-free Kamlesh Acosta NEWSPAPER EDITOR MANAGING.PURCHASING AND CLAIMS SUPERVISOR Work Phone: [facility] 09-29-2024 influenza virus vaccine, unspecified formulation Abby Mcclellan MD Work Phone: [facility] 05-11-2023 influenza (HD-IIV4) vaccine, age 65+ yr, high dose, quadrivalent, PF (FLUZONE HIGH-DOSE) Immunization [place] Work Phone: [facility] 05-11-2023 influenza virus vaccine, unspecified formulation Kamlesh Acosta NEWSPAPER EDITOR MANAGING.PURCHASING AND CLAIMS SUPERVISOR Work Phone: [facility] 08-14-2022 zoster vaccine recombinant Abby Mcclellan MD Work Phone: [facility] 05-19-2022 influenza, high-dose , quadrivalent vaccine (FLUZONE HIGH DOSE QUADRIVALENT) Keily Mckinney NEWSPAPER EDITOR MANAGING.PURCHASING AND CLAIMS SUPERVISOR Work Phone: [facility] 05-19-2022 influenza virus vaccine, unspecified formulation Kamlesh Acosta NEWSPAPER EDITOR MANAGING.PURCHASING AND CLAIMS SUPERVISOR Work Phone: [facility] 05-15-2022 zoster vaccine recombinant Mi Nurse Work Phone: [facility] Work Phone: 06-03-2021 influenza, high-dose , quadrivalent vaccine (FLUZONE HIGH DOSE QUADRIVALENT) Abby Mcclellan MD Work Phone: [facility] 07-01-2020 influenza, high-dose , quadrivalent vaccine (FLUZONE HIGH DOSE QUADRIVALENT) Abby Mcclellan MD Work Phone: [facility] 05-27-2019 influenza, high dose seasonal, preservative-free Abby Mcclellan MD Work Phone: [facility] 05-12-2018 influenza, high dose seasonal, preservative-free Abby Mcclellan MD Work Phone: [facility] 05-08-2017 influenza, high dose seasonal, preservative-free Abby Mcclellan MD Work Phone: [facility] 12-31-2016 pneumococcal polysaccharide vaccine, 23 valent Abby Mcclellan MD Work Phone: [facility] 06-27-2016 influenza, high dose seasonal, preservative-free Abby Mcclellan MD Work Phone: [facility] 11-07-2015 pneumococcal conjuga te vaccine, 13 valent Abby Mcclellan MD Work Phone: [facility] 05-29-2015 influenza, injectabl e, quadrivalent, preservative free Kamlesh Acosta APRN.CNP Work Phone: [facility] 05-29-2015 influenza, seasonal, injectable Dr. Abby Mcclellan Work Phone: [facility] 05-25-2015 influenza, high dose seasonal, preservative-free Abyb Mcclellan MD Work Phone: [facility] 08-10-2013 influenza virus vaccine, unspecified formulation Abby Mcclellan MD Work Phone: [facility] 05-19-2012 influenza virus vaccine, unspecified formulation Abby Mcclellan MD Work Phone: [facility] 09-06-2011 tetanus and diphther ia toxoids, adsorbed, preservative free, for adult use (2 Lf of tetanus toxoid and 2 Lf of diphtheria toxoid) Abby Mcclellan MD Work Phone: [facility] Work Phone: 07-25-2011 influenza virus vaccine, unspecified formulation Abby Mcclellan MD Work Phone: [facility] 05-16-2010 influenza virus vaccine, unspecified formulation Abby Mcclellan MD Work Phone: [facility] 05-10-2008 influenza virus vaccine, unspecified formulation Abby Mcclellan MD Work Phone: [facility] 07-08-2007 influenza virus vaccine, unspecified formulation Abby Mcclellan MD Work Phone: [facility] 04-16-2006 tetanus and diphther ia toxoids, adsorbed, preservative free, for adult use (2 Lf of tetanus toxoid and 2 Lf of diphtheria toxoid) Abby Mcclellan MD Work Phone: [facility] Work Phone: Payers Date Payer Category Payer Self-pay [id number] 2022 Medicare (Managed Care) [facility] [id number] 2022 Medicare HMO [employer] MEDICARE [id number] 2022 Medicare [id number] 2021 Medicare HUMANA MEDICARE [employer] MEDICARE PPO [id number] 2021-Present [phone] [address] [address] [place] [address] PPO [id number] 2017 Medicare [id number] 2014 Unknown [id number] Unknown [id number] Unknown [id number] Unknown [id number] Unknown [id number] Unknown [id number] Unknown [id number] Unknown [id number] Unknown [id number] Unknown [id number] Unknown [id number] Social History Date Type Detail Facility Start: 11-01-2021 End: 02-12-2022 Tobacco smoking status NHIS Unknown if ever smoked [facility] Work Phone: Start: 12-02-2019 None [facility] Start: 12-02-2019 Spouse/ Signif icant Other [facility] Start: 11-20-2019 Non-smoker [facility] Start: 1950 Sex Assigned At Female [facility] Start: 12-15-2010 End: 01-20-2024 Tobacco smoking status NHIS Never smoked tobacco [facility] Work Phone: Start: 02-14-2021 End: 01-11-2025 Alcohol intake Current non-drinker of alcohol (finding) [facility] Start: 1950 Sex Assigned At Not on file [facility] Start: 04-18-2020 End: 04-26-2022 Exposure to SARS-CoV-2 (event) Not sure [facility] Work Phone: Start: 12-15-2010 End: 03-03-2024 Tobacco use and exposure Smokeless tobacco non-user [facility] Work Phone: Start: 12-17-2022 End: 04-19-2023 History of Social function [facility] Work Phone: Start: 12-17-2022 End: 04-19-2023 Tobacco use panel [facility] Work Phone: Adult Depression Screening Assessment 0 [facility] Work Phone: Start: 03-10-2024 End: 05-07-2024 Alcoholic beverage intake Lifetime non-drinker (finding) [email or web address] Start: 02-07-2024 Sex Female (finding) [facility] [employer] Procedure Code Equipment Code Equipment [...] Lancets-Blood Glucose Strips Start: 09-21-2015 End: 10-25-2017 [id number], [id number], [id number], [id number] Start: 09-22-2015 End: 01-11-2025 Comment on above: Test blood sugar(s) 4 times daily. Dx: Type 2 DM - Uncontrolled E11.65 Insulin: Yes; Accucheck [facility] Medical: [phone] Test blood sugar(s) 4 times daily. Dx: Type 2 DM - Uncontrolled E11.65 Insulin: Yes Test blood sugar(s) 1 time daily as directed. Dx: Type 2 DM - Controlled E11.9 Insulin: No Lancets-Blood Glucose Strips Start: 09-21-2015 End: 10-25-2017 Lead Pacing Tendril Sts 58cm - [id number] - [id number] Start: 04-07-2024 Lead Pacing Tendril Sts 52cm - [id number] - [id number] Start: 04-07-2024 Pacer Assurity D r Rf Jovon - [id number] - [id number] Start: 04-07-2024 Valve Aor Makenzie 3 Ultra 23mm - [id number] - [id number] Start: 04-06-2024 Comment on above: Description: [id number] Lancets-Blood Glucose Strips 1 EACH combo [...] 2:54 PM EDT Chely Burger LPN No [facility] 03-01-2015 Are you blind, or do you have serious difficulty seeing, even when wearing glasses No 03/01/2015 2:54 PM EDT Chely Burger LPN No [facility] 03-01-2015 Do you have serious difficulty walking or climbing stairs Yes 03/01/2015 2:54 PM EDT Chely Burger LPN Yes [facility] 03-01-2015 Do you have difficul ty dressing or bathing No 03/01/2015 2:54 PM EDT Chely Burger LPN No [facility] 03-01-2015 Because of a physica l, mental, or emotional condition, do you have difficulty doing errands alone such as visiting a physician's office or shopping No 03/01/2015 2:54 PM EDT Chely Burger LPN No [facility] Mental Status Date Assessment Result Facility 03-01-2015 Because of a physica l, mental, or emotional condition, do you have serious difficulty concentrating, remembering, or making decisions No 03/01/2015 2:54 PM EDT Chely Burger LPN No [facility] Clinical Notes 08-29-2015 to 02-15-2025 Telephone [...] Keisha Petersen February 15, 2025 11:17 AM [facility] 02-15-2025 Miscellaneous Notes Formattin g of [...] 2025 11:17 AM documented in this encounter [facility] 02-09-2025 Telephone encount er Note Pt's [...] a refill on her Ozempic sent to [facility] in [place]. Due to constipation issues, pt is still only taking 0.25 mg weekly. So pt does not want to increase dosage. She would like this script to be sent to [facility] too but currently she needs at [facility] as she is out of medication. [facility] 02-09-2025 Miscellaneous Notes Formattin g of this note might be different from the original. Pt's last appt was 01/11 with Kamlesh and next appt 02/15 with Kamlesh. Pt calling in stating [facility] has been telling her that she needs to contact her provider's office to get refills on her Metformin. It appears in med history that pt was originally taking 2 tablets by mouth 2 times daily but then in September of this year, it was updated to take 1 tablet by mouth 2 times a day. Last script was sent to [facility] on 08/19/24 but would have originally only been a 4 month supply but since pt decreased down to 1 tab 2 times a day, the script lasted her longer. Pt also states she needs a refill on her Ozempic sent to [facility] in [place]. Due to constipation issues, pt is still only taking 0.25 mg weekly. So pt does not want to increase dosage. She would like this script to be sent to [facility] too but currently she needs at least a one month supply to [facility] as she is out of medication. documented in this encounter [facility] 02-08-2025 Procedure note [facility] 02-08-2025 Evaluation note Diagnosis Onset [...] (valve) stenosis chronic February 08, 2025 10:09am [facility] Work Phone: [phone] Telephone encounter Note* Telephone Encounter - Loretta Guerin RN - 01/11/2025 12:24 PM EDT Patient saw Kamlesh today 01/11/2025. Loretta Guerin RN [facility]06-16-2025 Miscellaneous Notes* Telephone Encounter - Loretta [...] advise, Loretta Guerin RN documented in this encounterMer[facility]06-16-2025 NoteHNO ID: [id number] Author: KAMLESH ACOSTA APRN.PURCHASING AND CLAIMS SUPERVISOR Service: ? Author Type: Nurse Practitioner Type: [...] Impairment - 02/25/2024 Paf (Paroxysmal Atrial Fibrillation) ([facility]) - 12/07/2021 Comment: [facility] Nonrheumatic Aortic Valve Stenosis - 12/07/2021 Comment: [facility], echo 2021 [facility] Status Post Right Hip Replacement - 12/23/2019 Difficulty in Walking Involving Lower Leg Joint Acid Indigestion - 03/26/2016 Polycythemia, Secondary - 03/28/2011 Comment: This was abnormal, seen by , testing was normal. Generalized Osteoarthrosis, Involving Multiple Sites - 05/10/2008 Diabetes Mellitus ([facility]) - 10/20/2007 Hypertension Goal Bp (Blood Pressure) < 140/90 - 10/12/2005 Hyperlipidemia Associated With Type 2 Diabetes Mellitus ([facility]) - 10/12/2005 Class 3 Severe Obesity Due to Excess Calories With Body Mass Index (Bmi) of 45.0 to 49.9 in Adult ([facility]) Social History Tobacco Use Smoking status: Never [...] Psychiatric: Attention and Perception: (more content not included)...[facility]06-16-2025 History of Present illness Narrative* Kamlesh Acosta APRN.PURCHASING AND CLAIMS SUPERVISOR - 01/11/2025 11:17 AM EDT SUBJECTIVE Lito [...] Impairment - 02/25/2024 Paf (Paroxysmal Atrial Fibrillation) ([facility]) - 12/07/2021 Comment: [facility] Nonrheumatic Aortic Valve Stenosis - 12/07/2021 Comment: [facility], echo 2021 [facility] Status Post Right Hip Replacement - 12/23/2019 Difficulty in Walking Involving Lower Leg Joint Acid Indigestion - 03/26/2016 Polycythemia, Secondary - 03/28/2011 Comment: This was abnormal, seen by , testing was normal. Generalized Osteoarthrosis, Involving Multiple Sites - 05/10/2008 Diabetes Mellitus ([facility]) - 10/20/2007 Hypertension Goal Bp (Blood Pressure) < 140/90 - 10/12/2005 Hyperlipidemia Associated With Type 2 Diabetes Mellitus ([facility]) - 10/12/2005 Class 3 Severe Obesity Due to Excess Calories With Body Mass Index (Bmi) of 45.0 to 49.9 in Adult ([facility]) Social History Tobacco Use Smoking status: Never [...] medication.. Kamlesh Acosta APRN-DANILO documented in this encounterMer[facility]06-12-2025 Telephone encounter Note * Telephone Encounter - Loretta Guerin RN - 01/07/2025 12:05 PM EDT Patient calls and states that she has appointment with Kamlesh on 01/11/2025. Patient is asking about labs to be done prior to appointment? Please review and advise, Loretta Guerin RN [facility]06-12-2025 History of Present illness Narrative* Nu Bruce [facility] - 01/07/2025 11:47 AM EDT Primary Care [...] elevated. Nu Bruce RPh documented in this encounterMercy Health [facility]field [facility]06-12-2025 NoteHNO ID: [id number] Author: NU BRUCE RPh Service: ? Author Type: Pharmacist Type: [...] if repeat A1c returns elevated. [facility] NotePatient Outreach (PHMEWO) LITO GONZALEZ ([id number]) 1950 F Date Time Provider Department 01/07/25 [...] if repeat A1c returns elevated. Nu Bruce [facility] Allergies As of Date: 01/07/2025 Noted Allergy Reaction LIPITOR (ATORVASTATIN) 06/27/2016 2 - Rash Comments: red itchy rash around neck--resolved after stopping med; hands froze with stiffness that started a week after taking a couple pills--resolving Date Reviewed: 11/10/2024 Reviewed by: Kamlesh Acosta APRN.PURCHASING AND CLAIMS SUPERVISOR - Fully Assessed Prescriptions as of 01/07/2025 [...] 09/29/2024 Encounter Status:Closed by NU BRUCE on 01/07/25[facility] 01-01-2025 NoteHNO ID: [id number] Author: DESHAWN WEAVER MA Service: ? Author Type: Metal Bending Machine Operator Type: Progress Notes Filed: 01/01/2025 15:51 Note [...] Deshawn Weaver MA January 01, 2025 3:49 [facility]06-06-2025 History of Present illness Narrative* Deshawn Weaver [...] 01, 2025 3:49 PM documented in this encounterMercy [facility]06-06-2025 NotePatient Outreach (NETNAV) LITO GONZALEZ ([id number]) 1950 F Date Time Provider Department 01/01/25 [...] Date Reviewed: 11/10/2024 Reviewed by: Kamlesh Acosta APRN.PURCHASING AND CLAIMS SUPERVISOR - Fully Assessed Reason for Visit: Population [...] 1 tablet by mouth once daily. (Dr. Hubbadr) - Walker misc Trio Rolling Walker - [...] 09/29/2024 Encounter Status:Closed by DESHAWN WEAVER on 01/01/25[facility] 11-10-2024 NoteHNO ID: [id number] Author: KAMLESH ACOSTA APRN.[facility] Service: ? Author Type: Nurse Practitioner Type: [...] Impairment - 02/25/2024 Paf (Paroxysmal Atrial Fibrillation) ([facility]) - 12/07/2021 Comment: [facility] Nonrheumatic Aortic Valve Stenosis - 12/07/2021 Comment: [facility], echo 2021 [facility] Status Post Right Hip Replacement - 12/23/2019 Difficulty in Walking Involving Lower Leg Joint Acid Indigestion - 03/26/2016 Polycythemia, Secondary - 03/28/2011 Comment: This was abnormal, seen by , testing was normal. Generalized Osteoarthrosis, Involving Multiple Sites - 05/10/2008 Diabetes Mellitus ([facility]) - 10/20/2007 Hypertension Goal Bp (Blood Pressure) < 140/90 - 10/12/2005 Hyperlipidemia Associated With Type 2 Diabetes Mellitus ([facility]) - 10/12/2005 Class 3 Severe Obesity Due to Excess Calories With Body Mass Index (Bmi) of 45.0 to 49.9 in Adult ([facility]) Social History Tobacco Use Smoking status: Never [...] No focal deficit p (more content not included)...[facility]04-15-2025 History of Present illness Narrative* Kamlesh Acosta APRN.PURCHASING AND CLAIMS SUPERVISOR - 11/10/2024 11:30 AM EDT SUBJECTIVE Lito [...] Impairment - 02/25/2024 Paf (Paroxysmal Atrial Fibrillation) ([facility]) - 12/07/2021 Comment: [facility] Nonrheumatic Aortic Valve Stenosis - 12/07/2021 Comment: [facility], echo 2021 [facility] Status Post Right Hip Replacement - 12/23/2019 [...] (Bmi) of 45.0 to 49.9 in Adult ([facility]) Social History Tobacco Use Smoking status: Never [...] hyperglycemia, without long-term current use of insulin ([facility]) - ICD9: 250.00, 790.29, ICD10: E11.65 (primary [...] follow up. FRANCISCO Brown documented in this encounterMercy [facility]03-04-2025 NoteHNO ID: [id number] Author: KAMLESH ACOSTA APRN.CNP Service: ? Author [...] since she is post pacemaker placement. Seeing [facility] for cardiology follow up. She had labs [...] Impairment - 02/25/2024 Paf (Paroxysmal Atrial Fibrillation) ([facility]) - 12/07/2021 Comment: [facility] Nonrheumatic Aortic Valve Stenosis - 12/07/2021 Comment: [facility], echo 2021 [facility] Status Post Right Hip Replacement - 12/23/2019 Difficulty in Walking Involving Lower Leg Joint Acid Indigestion - 03/26/2016 Polycythemia, Secondary - 03/28/2011 Comment: This was abnormal, seen by , testing was normal. Generalized Osteoarthrosis, Involving Multiple Sites - 05/10/2008 Diabetes Mellitus ([facility]) - 10/20/2007 Hypertension Goal Bp (Blood Pressure) < 140/90 - 10/12/2005 Hyperlipidemia Associated With Type 2 Diabetes Mellitus ([facility]) ([facility]) - 10/12/2005 Class 3 Severe Obesity Due to Excess Calories With Body Mass Index (Bmi) of 45.0 to 49.9 in Adult ([facility]) Social History Tobacco Use Smoking status: Never [...] No focal deficit pres (more content not included)...[facility]03-04-2025 History of Present illness Narrative* Kamlesh Acosta APRN.PURCHASING AND CLAIMS SUPERVISOR - 09/29/2024 12:08 PM EST SUBJECTIVE Lito [...] since she is post pacemaker placement. Seeing [facility] for cardiology follow up. She [...] Impairment - 02/25/2024 Paf (Paroxysmal Atrial Fibrillation) ([facility]) - 12/07/2021 Comment: [facility] Nonrheumatic Aortic Valve Stenosis - 12/07/2021 Comment: [facility], echo 2021 [facility] Status Post Right Hip Replacement - 12/23/2019 Difficulty in Walking Involving Lower Leg Joint Acid Indigestion - 03/26/2016 Polycythemia, Secondary - 03/28/2011 Comment: This was abnormal, seen by , testing was normal. Generalized Osteoarthrosis, Involving Multiple Sites - 05/10/2008 Diabetes Mellitus ([facility]) - 10/20/2007 Hypertension Goal Bp (Blood Pressure) < 140/90 - 10/12/2005 Hyperlipidemia Associated With Type 2 Diabetes Mellitus ([facility]) ([facility]) - 10/12/2005 Class 3 Severe Obesity Due to Excess Calories With Body Mass Index (Bmi) of 45.0 to 49.9 in Adult ([facility]) Social History Tobacco Use Smoking status: Never [...] hyperglycemia, without long-term current use of insulin ([facility]) - ICD9: 250.00, 790.29, ICD10: E11.65 (primary [...] associated with type 2 diabetes mellitus (HCC) ([facility]) - ICD9: 250.80, 272.4, ICD10: E11.69, E78.5 [...] medication.. Kamlesh Acosta APRN-DANILO documented in this encounterMercy [facility]02-26-2025 Telephone encounter Note * Telephone Encounter - Abby Mcclellan MD - 09/23/2024 1:13 PM EST The following approved medication requests have been transmitted electronically. Requested Prescriptions Pending Prescriptions Disp Refills glimepiride (AMARYL) 4 mg tablet 180 tablet 1 Sig: Take 1 tablet by mouth two times a day with meals. Abby Mcclellan MD [facility]02-26-2025 Miscellaneous Notes* Telephone Encounter - Abby [...] 21, 2024 1:37 PM documented in this encounterMercy Health [facility]field Hospital02-24-2025 Telephone encounter Note * Telephone Encounter [...] Patricia Cuenca September 21, 2024 1:37 PM [facility]01-22-2025 Telephone encounter Note* Telephone Encounter - Abby Mcclellan MD - 08/19/2024 6:11 PM EST Labs set to August to for September appointment Included UACR [facility]01-22-2025 Miscellaneous Notes* Telephone Encounter - Abby [...] calling: self Call patient at: at home [phone] (home) [phone] (cell) Was an appointment scheduled: Yes: Date/Time: 09-29-24 Closing statement: Barbara Clements documented in this encounterMercy Health Fairfield Hospital01-22-2025 Telephone encounter Note * Telephone Encounter - Abby Mcclellan MD - 08/19/2024 1:04 PM EST The following approved medication requests have been transmitted electronically. Requested Prescriptions Pending Prescriptions Disp Refills metFORMIN (GLUCOPHAGE) 500 mg tablet 180 tablet 3 Sig: Take 2 tablets by mouth two times a day with meals. Abby Mcclellan MD [facility]01-22-2025 Miscellaneous Notes* Telephone Encounter - Abby [...] 18, 2024 12:53 PM documented in this encounterMercy Health [facility]field Hospital01-21-2025 Telephone encounter Note * Telephone Encounter - Barbara Duran - 08/18/2024 12:52 PM EST Lito is calling Abby Mcclellan MD today to request Lab Orders (September appointment) Patient has been identified by name and birthdate. Duration of symptoms: N/A Person calling: self Call patient at: at home [phone] (home) [phone] (cell) Was an appointment scheduled: Yes: Date/Time: 09-29-24 Closing statement: Barbara Ruiz Jay Clements [facility] Work Phone: 1(997) 479-781001-21-2025 Telephone encounter Note* Telephone Encounter - Barbara [...] Jay Clements August 18, 2024 12:53 PM [facility] Work Phone: 1(679) 159-347111-15-2024 Telephone encounter Note* Telephone Encounter - Sadiq Babcock - 06/12/2024 1:54 PM EST 3 attempts have no been made to reach patient. She can reach us at [phone] M-F 8-5. We will continue to reach out as well. [facility] [id number] Miscellaneous Notes* Telephone Encounter - Sadiq Babcock - 06/12/2024 1:54 PM EST 3 attempts have no been made to reach patient. She can reach us at [phone] M-F 8-5. We will continue to reach [...] further outreaches. Thank you! documented in this encounterSGuernsey Memorial [id number] Telephone encounter Note* Telephone Encounter - Theresa Felipe - 05/27/2024 2:33 PM EDT Prior Auth was required and has been approved through 07/28/2025. I attempted to reach the patient to inform of authorization and offer [facility] services but no one answered and VM was is full. Will continue to make further outreaches. Thank you! [facility] [id number] Telephone encounter Note* Telephone Encounter - Polly [...] 2 weeks. Gloria Davis to route RX. [facility] [id number] Miscellaneous Notes* Telephone Encounter - Polly Coleman [...] refill apixaban (Eliquis) 5 MG tablet [facility] verified documented in this encounterSGuernsey Memorial [id number] Telephone encounter Note* Telephone Encounter - Charlotte Godinez - 05/19/2024 10:29 AM EDT Requesting refill apixaban (Eliquis) 5 MG tablet [facility] [place] verified [facility] [id number] History of Present illness Narrative* America Davis APRN - PURCHASING AND CLAIMS SUPERVISOR - 05/07/2024 3:00 PM EDT Images from the original note were not included. [facility] CARDIOLOG[facility] - [address] [address] Dept: [phone] Dept Loc: [phone] Reason for Visit: 1 Month Follow Up [...] 1 tablet in the evening.Take with meals. Jjjucfgymjk-Jsdibgxsx-Jpd C-Mn (GLUCOSAMINE 1500 COMPLEX PO) Take by [...] 04/06/2024 Performed by Srinivasa Poon MD at [facility] OR CARDIAC ELECTROPHYSIOLOGY PROCEDURE N/A 04/07/2024 Performed by Eric Okeefe MD at [facility] Cardiac Cath/EP Lab HYSTERECTOMY TOTAL HIP ARTHROPLASTY [...] % MILDRED Ceja CNP documented in this [facility]10-10-2024 History of Present illness Narrative* MILDRED Fuentes CNP - 05/07/2024 3:00 PM EDT Images from the original note were not included. [facility]IOLOG[facility] - [place] [address] [facility] [address] Dept: [phone] Dept Loc: [phone] Reason for Visit: 1 Month Follow Up [...] 04/06/24 -will follow with device clinic at [facility] Follow up for Dr. Hubbard [...] 1 tablet in the evening.Take with meals. Qipiaerwcvg-Zzqevagqa-Lcq C-Mn (GLUCOSAMINE 1500 COMPLEX PO) Take by [...] 04/06/2024 Performed by Srinivasa Poon MD at [facility] OR CARDIAC ELECTROPHYSIOLOGY PROCEDURE N/A 04/07/2024 Performed by Eric Okeefe MD at [facility] Cardiac Cath/EP Lab HYSTERECTOMY TOTAL HIP ARTHROPLASTY [...] Final MILDRED Ceja CNP documented in this [facility]10-10-2024 Evaluation + Plan note* Assessment & Plan Note - MILDRED Fuentes CNP - 05/07/2024 10:31 AM EDT Associated Problem(s): Essential hypertension Well controlled on current doses of losartan and metoprolol succinate [facility] [id number] Evaluation + Plan note* Assessment & Plan [...] and 30 dayfree card given to patient [facility] [id number] Miscellaneous Notes* Assessment & Plan Note - [...] SBE prophylaxis -Cardiac Rehab documented in this [facility]10-10-2024 Miscellaneous Notes* Assessment & Plan Note - [...] 04/06/24 -will follow with device clinic at [facility] * Assessment & Plan Note - MILDRED Fuentes CNP - 05/07/2024 10:13 AM EDT Associated Problem(s): Severe aortic stenosis S/p TAVR with 23 mm Makenzie S3 valve on 04/06/24 -stable, NYHA Class II -stop ASA, start Eliquis, see below -repeat echo to be done today -lifelong SBE prophylaxis -Cardiac Rehab-advised her to schedule an orientation documented in this [facility]10-10-2024 Evaluation + Plan note* Assessment & Plan Note - MILDRED Fuentes CNP - 05/07/2024 10:28 AM EDT Associated Problem(s): Complete heart block (HCC) Noted post TAVR, PPM placed on 04/06/24 -will follow with device clinic at [facility] [id number] Evaluation + Plan note* Assessment & Plan Note - MILDRED Fuentes CNP - 05/07/2024 10:13 AM EDTAssociated Problem(s): Severe aortic stenosis S/p TAVR with 23 mm Makenzie S3 valve on 04/06/24 -stable, NYHA Class II -stop ASA, start Eliquis, see below -repeat echo to be done today -lifelong SBE prophylaxis -Cardiac Rehab-advised her to schedule an orientation [facility] [id number] Telephone encounter Note* Telephone Encounter - Inna [...] Inna Proctor April 23, 2024 12:36 PM [facility]09-26-2024 Miscellaneous Notes* Telephone Encounter - Inna [...] 23, 2024 12:36 PM documented in this [facility]Mer[facility] History of Present illness Narrative* Lindsey Tolentino APRN - DANILO - 04/17/2024 12:45 PM EDT Images from the original note were not included. [facility] - [place] [address] [facility] [address] Dept: [phone] Dept Visit type: Established : 1950 Reason for Visit: No chief complaint on file. Assessment and Plan 1. S/P TAVR (transcatheter aortic valve replacement). She has a resting tachycardia today, unclear etiology. Will check labs - Basic metabolic panel - CBC auto differential - TSH - [facility] Cardiac/Pulmonary Rehab 2. Essential hypertension. BP controlled, continue metoprolol. - ECG 12 lead - CLINIC PERFORMED - Basic metabolic panel - CBC auto differential - TSH - [facility] Cardiac/Pulmonary Rehab 3. Aortic valve stenosis, etiology of cardiac valve disease unspecified. S/p TAVR. Continue ASA, SBE prophylaxis. Referred to cardiac rehabEcho and re evaluation in one month. - Basic metabolic panel - CBC auto differential - TSH - [facility] Cardiac/Pulmonary Rehab 4. Complete heart block (CMS/HCC) (HCC). S/p PPm. Has follow up with device clinic. One month follow up Subjective Lito Gonzalez is a 73 y.o. female with PMH paroxysmal atrial fibrillation ?, nonrheumatic aortic valve stenosis, DM, hypertension, RBBB and left posterior fascicular block that presented to [facility] on 04/06/2024 for TAVR. Femoral TAVR with [...] 1 tablet in the evening.Take with meals. Lzvsrtvjjro-Snjijzqzv-Fwq C-Mn (GLUCOSAMINE 1500 COMPLEX PO) Take by [...] 04/06/2024 Performed by Srinivasa Poon MD at [facility] OR CARDIAC ELECTROPHYSIOLOGY PROCEDURE N/A 04/07/2024 Performed by Eric Okeefe MD at [facility] Cardiac Cath/EP Lab HYSTERECTOMY TOTAL HIP ARTHROPLASTY [...] tests: MILDRED Maza CNP documented in this [facility]09-11-2024 NoteSuccessful dual-chamber pacemaker implant Procedure Details Following [...] in the left axillary vein. A 9 Macanese sheath was placed and the ventricular is advanced in the heart. This was repeated to 7 Macanese sheath for the atrial lead. The atrial [...] the patient went to lab in stable condition.[facility] [id number] Note Attestation signed by Calvin Barnard MD [...] at increased risk for PPM after procedure. [facility] [place] [facility] Cardiology Discharge Summary Name: Lito Gonzalez Date [...] left posterior fascicular block that presented to [facility] on 04/06/2024 for TAVR procedure who presented to the [facility] on [facility]06 for TAVR placement due to [...] Your Medications These medications were sent to [facility] [address] [place] [address] (more content not included)...[facility]09-11-2024 History of Present illness Narrative* Karli Gonzalez - 04/08/2024 10:30 AM EDT Nutrition rescreen completed. Chart reviewed. Patient to be monitored and followed by the diet pc maintenance technician. .BOBBY Dugan * MILDRED Juarez CNP - 04/08/2024 9:35 AM EDT [facility] and [facility] [place] [facility] Cardiology /Electrophysiology Progress Note HPI / Interval [...] from the original note were not included. [facility] [place] [facility] CCU PROGRESS NOTE Patient Name: Lito Gonzalez : 1950 Subjective: Lito Gonzalez is a 73 y.o. female with PMH paroxysmal atrial fibrillation, nonrheumatic aortic valve stenosis, DM, hypertension, RBBB and left posterior fascicular block that presented to [facility] on 04/06/2024 for TAVR procedure. Pre TAVR [...] QT Interval 362 QTC Interval 477 P [place] 40 QRS [place] 95 T Wave [place] -65 VT Interval 204 Impression Sinus tachycardia RBBB and [...] Via the right femoral vein, a 6 Macanese sheath was placed and temporary pacing wire was placed into the RV apex with appropriate capture, in addition sterile tubing was attached and given theanesthesia for central access. Via right radial artery, a 6-Macanese sheath was placed and the pigtail catheter was placed into the aortic annulus with confirmation the implant angle. Via the right femoral artery, a 6-Macanese sheath was placed. The patient was then heparinized. Next, two Perclose devices were used using the pre-close strategy. A Super Stiff wire was then placed through the second Perclose into the descending aorta. Then, a 14-Macanese Makenzie E-sheath was introduced over the wire [...] care of your patient while hospitalized at [facility]. I will continue to follow along while [...] Maza CNP - 04/07/2024 10:17 AM EDT [facility] [place] [facility] Cardiology /Electrophysiology Progress Note HPI / Interval History: Ms Gonzalez is POD 1 TAVR. She denies any chest pain, dyspnea, palpitations, groin complaints. Dqfxrr50 am this morning she intermittent high degree [...] Date Of Service 04/07/2024 documented in this [facility]09-11-2024 [facility] Cardiology /Electrophysiology Progress Note HPI / [...] 55 - 100 % Final Susie Blas, NEWSPAPER EDITOR MANAGING - PURCHASING AND CLAIMS SUPERVISOR Date Of Service 04/08/2024[facility]09-10-2024 Plan of care note* Care Plan - Shasta Badillo RN - 04/07/2024 6:09 PM EDT Problem: Cardiovascular - Adult Goal: Maintains optimal cardiac output and hemodynamic stability Outcome: Progressing Goal: Absence of cardiac dysrhythmias or at baseline Outcome: Progressing Problem: Hematologic - Adult Goal: Maintains hematologic stability Outcome: Progressing [facility] [id number] Miscellaneous Notes* Care Plan - Shasta Badillo [...] Limits Permission given to speak with patient financial representative/caregiver as indicated: Yes Confirmation of Payer with patient/family: Yes Payer Name: [employer] : No Confirmation of Primary Care Physician: [...] 253 new orders received. documented in this [facility]09-10-2024 Note* Care Coordination - Breonna Jimenez RN - 04/07/2024 2:40 PM EDT Care Managment Initial Assessment Date: 04/07/2024 Patient Name: Lito Gonzalez : 1950 Patient Information Source of Information: Patient Cognition/Language: WFL - Within Functional Limits Permission given to speak with patient financial representative/caregiver as indicated: Yes Confirmation of Payer with patient/family: Yes Payer Name: [employer]: No Confirmation of Primary Care Physician: Confirmed [...] and denies discharge needs. Breonna Jimenez RN [facility] [id number] Note* Care Coordination - Breonna Jimenez RN - 04/07/2024 2:40 PM EDT Care Managment Initial Assessment Date: 04/07/2024 Patient Name: Lito Gonzalez : 1950 Patient Information Source of Information: Patient Cognition/Language: WFL - Within Functional Limits Permission given to speak with patient financial representative/caregiver as indicated: Yes Confirmation of Payer with patient/family: Yes Payer Name: [employer] : No Confirmation of Primary Care Physician: [...] Living Prescription Coverage: Yes Pharmacy Used: [facility] Medication Management: Independent Transportation/Shopping: Independent Transportation Mode: [...] denies discharge needs. Breonna Jimenez RN Pj [facility] [id number] Note Attestation signed by Calvin Barnard MD [...] Patient had RBBB and LAHB at baseline. [facility] [place] [facility] CCU HISTORY & PHYSICAL Patient Name: Lito Gonzalez : 1950 Date of Admission: 04/06/2024 8:27 AM Established front end software developer: [facility] Subjective: Chief Complaint: Complete heart block, severe POD 1 TAVR History of Present Illness: Lito Gonzalez is a 73 y.o. female with PMH paroxysmal atrial fibrillation, nonrheumatic aortic valve stenosis, DM, hypertension, RBBB and left posterior fascicular block that presented to [facility] on 04/06/2024 for TAVR procedure. Pre TAVR [...] 04/06/2024 Performed by Srinivasa Poon MD at [facility] OR HYSTERECTOMY TOTAL HIP ARTHROPLASTY Right 12/02/2019 [...] tablet, Oral, 2 times daily with meals Ovodvxxvlvl-Sizdwqmfw-Ltd C-Mn (GLUCOSAMINE 1500 COMPLEX PO) Oral [employer] [...] dry. Eyes: Extraocular Mo (more content not included)...[facility]09-10-2024 Consult note* Eric Okeefe MD - 04/07/2024 11:59 AM EDT [facility] [place] [facility] Cardiology /Electrophysiology Consult Note Reason for Consult/Chief Complaint: Complete heart block Referring provider: Ayah Established front end software developer: Ayah History of Present Illness: Lito Gonzalez [...] Via the right femoral vein, a 6 Macanese sheath was placed and temporary pacing wire was placed into the RV apex with appropriate capture, in addition sterile tubing was attached and given theanesthesia for central access. Via right radial artery, a 6-Macanese sheath was placed and the pigtail catheter was placed into the aortic annulus with confirmation the implant angle. Via the right femoral artery, a 6-Macanese sheath was placed. The patient was then heparinized. Next, two Perclose devices were used using the pre-close strategy. A Super Stiff wire was then placed through the second Perclose into the descending aorta. Then, a 14-Macanese Makenzie E-sheath was introduced over the wire [...] care of your patient while hospitalized at [facility]. I will continue to follow along while hospitalized. Please do not hesitate to call with any questions. Signed by: Srinivasa Poon MD on 04/06/2024 1:41 PM EF BP Date Value Ref Range Status 04/07/2024 66 55 - 100 % Final Eric Okeefe MD DATE of SERVICE: 04/07/2024 [facility] [employer] Work Phone: 1(607) 901-950309-10-2024 Consult note* Eric Okeefe MD - 04/07/2024 11:59 AM EDT [facility] [place] [facility] Cardiology /Electrophysiology Consult Note Reason for Consult/Chief Complaint: Complete heart block Referring provider: Ayah Established front end software developer: Ayah History of Present Illness: Lito Gonzalez [...] Via the right femoral vein, a 6 Macanese sheath was placed and temporary pacing wire was placed into the RV apex with appropriate capture, in addition sterile tubing was attached and given theanesthesia for central access. Via right radial artery, a 6-Macanese sheath was placed and the pigtail catheter was placed into the aortic annulus with confirmation the implant angle. Via the right femoral artery, a 6-Macanese sheath was placed. The patient was then heparinized. Next, two Perclose devices were used using the pre-close strategy. A Super Stiff wire was then placed through the second Perclose into the descending aorta. Then, a 14-Macanese Makenzie E-sheath was introduced over the wire [...] care of your patient while hospitalized at [facility]. I will continue to follow along while hospitalized. Please do not hesitate to call with any questions. Signed by: Srinivasa Poon MD on 04/06/2024 1:41 PM EF BP Date Value Ref Range Status 04/07/2024 66 55 - 100 % Final Eric Okeefe MD DATE of SERVICE: 04/07/2024 * Tracey Solomon MD - 04/07/2024 10:40 AM EDTAssociated Order(s): IP CONSULT TO CARDIOLOGY [facility] [place] [facility] Cardiology /Electrophysiology Consult Note Reason for Consult/Chief Complaint: AV Block s/p TAVR Established front end software developer: Ayah History of Present Illness: Lito Gonzalez [...] Via the right femoral vein, a 6 Macanese sheath was placed and temporary pacing wire was placed into the RV apex with appropriate capture, in addition sterile tubing was attached and given theanesthesia for central access. Via right radial artery, a 6-Macanese sheath was placed and the pigtail catheter was placed into the aortic annulus with confirmation the implant angle. Via the right femoral artery, a 6-Macanese sheath was placed. The patient was then heparinized. Next, two Perclose devices were used using the pre-close strategy. A Super Stiff wire was then placed through the second Perclose into the descending aorta. Then, a 14-Macanese Makenzie E-sheath was introduced over the wire [...] care of your patient while hospitalized at [facility]. I will continue to follow along while [...] Lito Gonzalez. Patient prefers cardiopulmonary rehab at [facility]. Given information on program at preferred location. documented in this encounterSGuernsey Memorial [id number] Nurse Note* Shasta Badillo RN - 04/07/2024 [...] 110- 120s. All other VSS. Lindsey Tolentino, PURCHASING AND CLAIMS SUPERVISOR tobedside. EP consult ordered. 1138: Pt had another episode of tachycardia with HR in 170s. All other VSS. Pt asymptomatic 1159: Dr. Okeefe to bedside for EP consult. Plan to take patient for permanent pacemaker placement. 1215: Pt taken to EP lab for Pacemaker placement. Consent signed. [facility] [id number] Nurse Note* Shasta Badillo RN - 04/07/2024 [...] 110- 120s. All other VSS. Lindsey Tolentino, PURCHASING AND CLAIMS SUPERVISOR tobedside. EP consult ordered. 1138: Pt had another episode of tachycardia with HR in 170s. All other VSS. Pt asymptomatic 1159: Dr. Okeefe to bedside for EP consult. Plan to take patient for permanent pacemaker placement. 1215: Pt taken to EP lab for Pacemaker placement. Consent signed. documented in this [facility]09-10-2024 Consult note* Tracey Solomon MD - 04/07/2024 10:40 AM EDTAssociated Order(s): IP CONSULT TO CARDIOLOGY [facility] [place] [facility] Cardiology /Electrophysiology Consult Note Reason for Consult/Chief Complaint: AV Block s/p TAVR Established front end software developer: Ayah History of Present Illness: Lito Gonzalez [...] Via the right femoral vein, a 6 Macanese sheath was placed and temporary pacing wire was placed into the RV apex with appropriate capture, in addition sterile tubing was attached and given theanesthesia for central access. Via right radial artery, a 6-Macanese sheath was placed and the pigtail catheter was placed into the aortic annulus with confirmation the implant angle. Via the right femoral artery, a 6-Macanese sheath was placed. The patient was then heparinized. Next, two Perclose devices were used using the pre-close strategy. A Super Stiff wire was then placed through the second Perclose into the descending aorta. Then, a 14-Macanese Makenzie E-sheath was introduced over the wire [...] care of your patient while hospitalized at [facility]. I will continue to follow along while [...] Tracey Solomon MD DATE of SERVICE: 04/07/2024 [email or web address] Work Phone: 1(266) 102-386709-10-2024 [facility] [place] [facility] Cardiology /Electrophysiology Progress Note HPI / Interval [...] 55 - 100 % Preliminary Lindsey Tolentino, NEWSPAPER EDITOR MANAGING - PURCHASING AND CLAIMS SUPERVISOR Date Of Service 04/07/2024[facility]09-10-2024 Consult note* Malika Greenberg - 04/07/2024 9:08 AM EDTAssociated Order(s): IP CONSULT TO CARDIAC REHAB Received referral and reviewed chart. Phase II Cardiopulmonary Rehab Referral discussed with Lito Gonzalez. Patient prefers cardiopulmonary rehab at [facility]. Given information on program at preferred location. [facility] [id number] NoteReceived referral and reviewed chart. Phase II Cardiopulmonary Rehab Referral discussed with Lito Gonzalez. Patient prefers cardiopulmonary rehab at [facility]. Given information on program at preferred location. [facility]09-09-2024 Plan of care note* Care Plan - [...] these barriers includecontinue to reinforce and monitor. [facility] [id number] NotePatient was transferred to CCU team for stabilization and need for pacer placement when evidence of heart block developed POD1. Please see CCU team notes and discharge summary.[facility]09-09-2024 Hospital Discharge instructions* Discharge Instructions* MILDRED Cardoza CNP - 04/06/2024 4:27 PM EDT - Please call the Heart Valve Clinic with any questions: [phone] -You will have have the following follow [...] in CPR. Call the Device Clinic at [phone] if you have any questions regarding your incision, pacemaker, or follow-up appointments documented in this [facility]09-09-2024 NotePatient: Lito Gonzalez Procedure Summary Date: 04/06/24 Room / Location: [facility] Operating Room Anesthesia Start: 1148 Anesthesia Stop: [...] discharged once all PACU criteria has been met.[facility] [id number] NotePatient: Lito Gonzalez Procedure Summary Date: 04/06/24 Room / Location: [facility] Operating Room Anesthesia Start: 1148 Anesthesia Stop: [...] Allowed opportunity for questions and acknowledgement of understanding.[facility]09-09-2024 NoteArterial Line: Date/Time: 04/06/2024 12:28 PM [...] Staffing Performed: Other Other staff: Srinivasa Poon, [facility]09-09-2024 NoteH&P reviewed. The patient was examined and there are no changes to the H&P.[facility]09-09-2024 Note* Perioperative Nursing Note - Tamela Lai RN - 04/06/2024 9:[address] Hernandez made aware of MBS 253 new orders received. [facility] [id number] Note* Perioperative Nursing Note - Tamela Lai RN - 04/06/2024 9:[address] Hernandez made aware of MBS 253 new orders received. [facility] [id number] Note Attestation signed by Srinivasa Poon MD [...] Srinivasa Poon MD (Physician) Cardiology Exp[employer] All [facility] All [facility] CARDIOLOGY [address] [facility] [address] Dept: [phone] Dept Visit type: New : 1950 Reason for Visit: Cardiac Valve Problem and New Patient (Heart Valve Clinic) Assessment and Plan 1. Nonrheumatic aortic valve stenosis 2. PAF (paroxysmal atrial fibrillation) ([facility]) - ECG 12 lead - CLINIC PERFORMED [...] tablet in the evening. Take with meals. Kwtjffljnrx-Xgzzoynju-Wrk C-Mn (GLUCOSAMINE 1500 COMPLEX PO) Take by [...] History Problem Relation Name (more content not included)...[facility] 04-03-2024 Note Attestation signed by Srinivasa [...] MD (Physician) Cardiology Expand All Collapse All [facility] CARDIOLOGY [address] [facility] [address] Dept: [phone] Dept Visit type: New : 1950 Reason for Visit: Cardiac Valve Problem and New Patient (Heart Valve Clinic) Assessment and Plan 1. Nonrheumatic aortic valve stenosis 2. PAF (paroxysmal atrial fibrillation) ([facility]) - ECG 12 lead - CLINIC PERFORMED [...] tablet in the evening. Take with meals. Kbrjqkulfcl-Fipeqlfpq-Wto C-Mn (GLUCOSAMINE 1500 COMPLEX PO) Take by mouth. DocSendoger Blood Glucose Test test strip Test blood [...] History Problem Relation Name (more content not included)...[facility] 04-02-2024 NotePre TAVR phone call placed. Reviewed, procedure, instructions and meds. Pt verbalizes understanding. Pt knows to call [phone] with any concerns. Gloria Davis APRN notified for prep for proc orders. Diagnosis: Procedure being done: TAVR Date/time of procedure: 04/06/24 11 am Surgeon: Dr. Poon 2nd surgeon: Dr. Key Admission type: To be admitted Anesthesia: MAC Completed: H&P/EKG/CBC/CMP/CXR Date completed: 04/01/24 Additional orders will need T&S morning of [facility] 04-01-2024 NotePatient: Lito Gonzalez Procedure Information Date/Time: 04/06/24 1100 Procedures: TRANSCATHETER AORTIC VALVE REPLACEMENT, TRANSTHORACIC ECHOCARDIOGRAM TRANSCATHETER AORTIC VALVE REPLACEMENT, TRANSTHORACIC ECHOCARDIOGRAM (Chest) Location: [facility] Operating Room Surgeons: Srinivasa Poon MD; Renzo [...] in media under external cardiology Radha Marquez, NEWSPAPER EDITOR MANAGING - PURCHASING AND CLAIMS SUPERVISOR JUDITH Screening Labs: No results found for: [...] 03/12/2024 10:37 PM Equipment Requests: Additional Equipment RequestsAmanda [place] [id number] NoteTAVR procedure, instructions reviewed with pt and . Patient scheduled for TAVR on 04/06/24 at 11 am Will report to [facility] by 9 am Can park in the [facility] Deck or use [employer] parking at the [facility] entrance Plan on overnight stay in the [...] with any questions/concerns Pre-op testing done in [place] at least 1 week before. Provided patient with lab orders. CXR completed in December Patient/family verbalized understanding.[place] [id number] Note Dx: Procedure: TAVR Date/Time: 04/06/24 at 11:00a Surgeon: SHEILA Location: [facility] Anesthesia: [place] [id number] Evaluation + Plan note* Assessment & Plan Note - Ira Aquino MD - 03/10/2024 4:42 PM EDTAssociated Problem(s): Dizziness Likely multifactorial Encouraged patient to change positions slowly to avoid dizziness and falls Encouraged continued follow-up with PCP (primary care provider) and cardiology regarding her dizziness - patient and agree/confirm understanding monitor [id number] Miscellaneous Notes* Assessment & Plan Note - [...] have patient schedule appt with us at [facility] for baseline memory testing I suspect either [...] agree with cardiology plan as discussed with front end software developer on same date regarding next steps for further workup/treatment of cardiac disease which likely includes TAVR. On this date of evaluation, the patient has sufficient understanding of procedure(s) to consent to the procedure(s) being discussed and has adequate social support(s). documented in this encounterSGuernsey Memorial [id number] Evaluation + Plan note* Assessment & Plan Note - Ira Aquino MD - 03/10/2024 4:41 PM EDTAssociated Problem(s): Memory loss Chronic Patient had had c/o memory loss for AWV (Annual Wellness Visit) from 02/25/24 but declined a geriatrics referral at that time I strongly encouraged patient/ to have patient schedule appt with us at [facility] for baseline memory testing I suspect either MCI (Mild Cognitive Impairment) or mild dementia based on my conversation with patient in our visit today [facility] [id number] Evaluation + Plan note* Assessment & Plan Note - Ira Aquino MD - 03/10/2024 4:28 PM EDTAssociated Problem(s): Polypharmacy Reviewed med list with patient/ Advised patient speak with PCP (primary care provider) regarding alternative medication for diabetes other than glimepiride given risk of falls, hypoglycemia -patient/ amenable to this suggestion Recommended patient begin to use pillbox. [facility] [id number] Evaluation + Plan note* Assessment & Plan Note - Ira Aquino MD - 03/10/2024 4:21 PM EDTAssociated Problem(s): Daytime hypersomnolence Chronic Never had sleep apnea testing Encouraged her to discuss with her PCP (primary care provider) regarding JUDITH (Obstructive Sleep Apnea) evaluation with sleep study I suspect likely component of untreated JUDIHT (Obstructive Sleep Apnea) in addition to obesity hypoventilation syndrome. Treatment of this could improve her overall sleep quality, reduce fatigue, and improve quality of life. Patient/ voice understanding and agreement with this plan. [facility] [id number] Evaluation + Plan note* Assessment & Plan [...] etc. - patient/ amenable to this recommendation [place] [id number] Note02/19/24 A1c 7.9% Discussed with patient and her the recommendation to have education surrounding how to use new glucometer/test strips so she can check her BG at home due to diabetes and falls as well as dizziness and patient taking glimepiride which has high risk of causing hypoglycemia, dizziness, confusion, falls, etc. - patient/ amenable to this [facility]08-13-2024 Evaluation + Plan note* Assessment & Plan Note - Ira Aquino MD - 03/10/2024 4:16 PM EDTAssociated Problem(s): Severe aortic stenosis I agree with cardiology plan as discussed with front end software developer on same date regarding next steps for further workup/treatment of cardiac disease which likely includes TAVR. On this date of evaluation, the patient has sufficient understanding of procedure(s) to consent to the procedure(s) being discussed and has adequate social support(s). [facility] [id number] History of Present illness Narrative* Ira Aquino MD - 03/10/2024 3:30 PM EDT Images from the original note were not included. [facility] CARDIOLOGY [address] [facility] [address] Dept: [phone] Dept Loc: [phone] Today's Visit Location: TAVR (transcather aortic valve replacement) Clinic [facility] Cardiology [address] [place] [address] Visit type: [facility] Assessment at TAVR (transcather aortic valve replacement) Clinic Visit Date: 03/10/2024 Reason for Visit: Other (Aortic Stenosis) Assessment and Plan 1. Severe aortic stenosis Assessment & Plan: I agree with cardiology plan as discussed with front end software developer on same date regarding next steps for [...] have patient schedule appt with us at [facility] for baseline memory testing I suspect either [...] Less exercise tolerance. Must take a break chcf up stairs. Dizzy with quick changes in [...] Current events: Does know current [place] President (TEJA PRICE Nimcophill). What is the name of [...] 1 tablet in the evening.Take with meals. Lwcunesdmqp-Feuezeaev-Rmo C-Mn (GLUCOSAMINE 1500 COMPLEX PO) Take by [...] and phrases are mis-transcribed.) documented in this [facility]08-13-2024 Instructions* Patient Instructions* Ira Aquino MD - [...] (which can be dangerous). documented in this [facility]08-13-2024 History of Present illness Narrative* Renzo Horta, - 03/10/2024 3:00 PM EDT Images from the original note were not included. [facility]: Cardiothoracic Surgery Multidisciplinary Heart Valve Clinic Date: 03/10/24 Patient:Lito Gonzalez 1950 73 y.o. female [id number] Subjective: HPI: Lito Gonzalez 73 y.o. referred [...] the evening.Take with meals. 11/15/23 Historical Provider, Payhqrgyzgl-Jdmrcdwlt-Kvx C-Mn (GLUCOSAMINE 1500 COMPLEX PO) Take by [...] echocardiography,and other diagnostic images. documented in this [facility]08-13-2024 History of Present illness Narrative* Srinivasa Poon MD - 03/10/2024 2:30 PM EDT Images from the original note were not included. [facility] CARDIOLOGY [address] [facility] [address] Dept: [phone] Dept Visit type: New : 1950 Reason [...] 1 tablet in the evening.Take with meals. Dmvnjmuqjrp-Gywkfbtzm-Ybt C-Mn (GLUCOSAMINE 1500 COMPLEX PO) Take by [...] note. Srinivasa Poon MD documented in this [facility]08-09-2024 Telephone encounter Note* Telephone Encounter - Abby Mcclellan MD - 03/06/2024 6:06 PM EDT The following approved medication requests have been transmitted electronically. Requested Prescriptions Signed Prescriptions Disp Refills metFORMIN (GLUCOPHAGE) 500 mg tablet 180 tablet 3 Sig: Take 2 tablets by mouth two times a day with meals. Authorizing Provider: ABBY MCCLELLAN MD [facility]08-09-2024 Miscellaneous Notes* Telephone Encounter - Abby [...] 06, 2024 1:33 PM documented in this encounterMercy Health Fairfield Hospital08-09-2024 Telephone encounter Note * Telephone Encounter - Chrissy Dawn LPN - 03/06/2024 2:03 PM EDT In review this is a new pharmacy. Rx would be needed. [facility]08-09-2024 Telephone encounter Note* Telephone Encounter - [...] Keisha Petersen March 06, 2024 1:33 PM [facility]07-30-2024 Instructions* Patient Instructions* Kamlesh Acosta APRN.PURCHASING AND CLAIMS SUPERVISOR - 02/25/2024 11:31 AM EDT Screening schedule [...] review all the medicines you take, even yies-dmk-aqdaygj medicines. As you get older, the way [...] review all the medicines you take, even nijt-fra-rkhiqdq medicines. As you get older, the way [...] have certain medical conditions. documented in this encounterMercy Health Fairfield Hospital07-30-2024 NoteHNO ID: [id number] Author: KAMLESH ACOSTA APRN.CNP Service: ? Author [...] (Paroxysmal Atrial Fibrillation) (Hcc) - 12/07/2021 Comment: [facility] Nonrheumatic Aortic Valve Stenosis - 12/07/2021 Comment: [facility], echo 2021 [facility] Status Post Right Hip Replacement - 12/23/2019 Difficulty in Walking Involving Lower Leg Joint Acid Indigestion - 03/26/2016 Polycythemia, Secondary - 03/28/2011 Comment: This was abnormal, seen by , testing was normal. Generalized Osteoarthrosis, Involving Multiple Sites - 05/10/2008 Diabetes Mellitus (Hcc) - 10/20/2007 Hypertension Goal Bp (Blood Pressure) < 140/90 - 10/12/2005 Hyperlipidemia Associated With Type 2 Diabetes Mellitus (Hcc) ([facility]) - 10/12/2005 Class 3 Severe Obesity Due to Excess Calories With Body Mass Index (Bmi) of 45.0 to 49.9 in Adult ([facility]) Social History Tobacco Use Smoking status: Never Smokeless tobacco: Never Substance Use Topics Alcohol use: No Drug use: No Review of Systems Constitutional: Negative. Respiratory: (more content not included)...[facility]07-30-2024 History of Present illness Narrative* Kamlesh Acosta APRN.PURCHASING AND CLAIMS SUPERVISOR - 02/25/2024 11:21 AM EDT Images from [...] Outside specialists seen: cardiology with [facility] Medical/Family history review Reviewed and [...] Impairment - 02/25/2024 Paf (Paroxysmal Atrial Fibrillation) ([facility]) - 12/07/2021 Comment: [facility] Nonrheumatic Aortic Valve Stenosis - 12/07/2021 Comment: [facility], echo 2021 [facility] Status Post Right Hip Replacement - 12/23/2019 Difficulty in Walking Involving Lower Leg Joint Acid Indigestion - 03/26/2016 Polycythemia, Secondary - 03/28/2011 Comment: This was abnormal, seen by , testing was normal. Generalized Osteoarthrosis, Involving Multiple Sites - 05/10/2008 Diabetes Mellitus ([facility]) - 10/20/2007 Hypertension Goal Bp (Blood Pressure) < 140/90 - 10/12/2005 Hyperlipidemia Associated With Type 2 Diabetes Mellitus ([facility]) ([facility]) - 10/12/2005 Class 3 Severe Obesity Due to Excess Calories With Body Mass Index (Bmi) of 45.0 to 49.9 in Adult ([facility]) Social History Tobacco Use Smoking status: Never [...] medications.. Kamlesh Acosta APRN-DANILO documented in this encounterMercy Health Fairfield Hospital04-19-2024 Miscellaneous Notes* Addendum Note - Kamlesh Acosta APRN.CNP - 11/15/2023 12:08 PM EDTAddended by: KAMLESH ACOSTA on: 11/15/2023 12:08 PM Modules accepted: Orders * Telephone Encounter - Saji Choudhury LPN - 11/15/2023 11:51 AM EDT Pt calls to state [facility] [place] Looks like on 11/12, short term supply also went to mail away pharmacy. Also, the sig needs updated, pt states glimepiride was increased to 2 tablets daily, not 1. Rx pending. Please review and advise. Saji Choudhury LPN documented in this encounterMercy Health Fairfield Hospital04-17-2024 Miscellaneous Notes* Telephone Encounter - Zena [...] sent locally for a gap supply to [facility] and to the mail order at [facility] please send TREVOR Patient has been identified [...] notify patient. Trini Clements documented in this encounterMercy Health Fairfield Hospital03-12-2024 Miscellaneous Notes* Telephone Encounter - Myranda [...] appt. Left a message. documented in this encounterMercy Health Fairfield Hospital03-08-2024 History of Present illness Narrative* Kamlesh [...] signature. Nu Bruce RPh documented in this encounterMercy Health Fairfield Hospital12-15-2023 Miscellaneous Notes* Telephone Encounter - Tanja [...] month. Thank you! Keily. documented in this encounterMercy Health Fairfield Hospital10-19-2023 Miscellaneous Notes* Telephone Encounter - Abby Mcclellan MD - 05/16/2023 12:01 PM EDT Okayed * Telephone Encounter - Inna Proctor - 05/16/2023 11:35 AM EDT Patient calling back [facility] did send her a meter and test strips. However, she just got a letter from [facility] stating they need a new script for [...] notify patient. Camille Clements documented in this encounterMercy Health Fairfield Hospital10-02-2023 Miscellaneous Notes* Letter - [facility] - 04/29/2023 8:25 AM EDT April 29, 2023 PID: [id number] Lito Gonzalez [address] [place] [address] Dear Dangelo Fabricio, We are pleased to [...] report will be kept on [facility] at [facility] as part of your permanent medical record and are available for your continuing care. Thank you for allowing us to help in meeting your health care needs. Sincerely, Dr. Alex Interpreting Radiologist (Normal over 40) documented in this encounterMercy Health Fairfield Hospital09-29-2023 History of Present illness Narrative* Karla [...] 26, 2023 2:43 PM documented in this encounterMercy Health Fairfield Hospital09-29-2023 Miscellaneous Notes* Result Encounter Note - Heidy Hawk APRN.CNS - 04/26/2023 2:50 PM EDT Negative, 1 year screening follow-up documented in this encounterMercy Health Fairfield Hospital09-22-2023 Instructions* Patient Instructions* Kamlesh Acosta APRN.CNP - 04/19/2023 12:12 PM EDT Follow up in 3 months but call if blood sugar checks are consistently running above 175 with the higher dose of glimepiride. documented in this encounterMercy Health Fairfield Hospital09-22-2023 History of Present illness Narrative* Kamlesh [...] ACTIVE PROBLEM LIST Paf (Paroxysmal Atrial Fibrillation) ([facility]) - 12/07/2021 Comment: [facility] Moderate Aortic Stenosis By Prior Echocardiogram - 12/07/2021 Comment: [facility], echo 2021 [facility] Status Post Right Hip Replacement - 12/23/2019 [...] (Bmi) of 45.0 to 49.9 in Adult ([facility]) Social History Tobacco Use Smoking status: Never [...] DM. Kamlesh Acosta APRN-DANILO documented in this encounterMercy Health Fairfield Hospital06-25-2023 Miscellaneous Notes* Telephone Encounter - Abby [...] a True Metrix Glucose Meter sent to [facility] pharmacy. * Telephone Encounter - Barbara Thompson Pss - 01/18/2023 1:15 PM EDT Lito is calling because [facility] is supposed to send her a glucometer, but keeps sending strips instead. Please send an order for her glucometer (she reports having a Next Luiz?) documented in this encounterMercy Health Fairfield Hospital06-21-2023 History of Present illness Narrative* Genna [...] visits Payer: Payor: [employer] MEDICARE / Plan: Am[employer] PLUS / Product Type: HMO / Care Gap Reviewed:: Follow-up appointment Advance Directive Reminder: Reminder note to check Health Maintenance for items below Health Maintenance items due: DIABETIC FOOT EXAM due on 02/14/2022 ADVANCE DIRECTIVE DISCUSSION due on 07/29/2022 Navigation Signature: Genna Steiner MA January 16, 2023 7:51 AM documented in this encounterMercy Health Fairfield Hospital04-14-2023 Miscellaneous Notes* Telephone Encounter - Chrissy Dawn LPN - 11/09/2022 11:01 AM EDT Last seen pcp 08/14/22. Next appt is 12/17/22. * Telephone Encounter - Dina Messer [facility] - 11/09/2022 10:03 AM EDT Patient has been identified by name and date of : Yes Requested Prescriptions Pending Prescriptions Disp Refills glimepiride (AMARYL) 2 mg tablet 90 tablet 3 Sig: Take 1 tablet by mouth daily with breakfast. RX INSTRUCTIONS: Patient aware RX will be sent to pharmacy. No need to notify patient. Dina Messer [facility] documented in this encounterMercy Health Fairfield Hospital03-24-2023 Miscellaneous Notes* Telephone Encounter - Krista [...] has addressed this situation. documented in this encounterMercy Health Fairfield Hospital01-03-2023 History of Present illness Narrative* Suzanne [...] 31, 2022 3:47 PM documented in this encounterMercy Health Fairfield Hospital01-03-2023 History of Present illness Narrative* Keily Mckinney APRN.PURCHASING AND CLAIMS SUPERVISOR - 07/31/2022 3:30 PM EST This note [...] history is provided by the patient. No social group worker was used. Cough This is a new [...] PROSTC AGRFT/ALGRFT Right 12/02/2019 Dr. Barney at [facility] ARTHRP KNE CONDYLE&PLATU MEDIAL&LAT COMPARTMENTS 01/31/2009 Knee [...] - Uncontrolled Insulin: Yes; Accucheck [facility] Medical: [phone] Walker misc Trio Rolling Walker aspirin, enteric [...] flags Follow up with PCP Keily Mckinney APRN.PURCHASING AND CLAIMS SUPERVISOR documented in this [facility]10-18-2022 History of Present illness Narrative* Viki Sibley LPN - 05/15/2022 10:24 AM EDT Patient presents for Shingrix vaccines. Denies any problems at this time. Tolerated injection well. Viki Sibley LPN documented in this [facility]10-07-2022 Miscellaneous Notes* Telephone Encounter - Viki Sibley LPN - 05/04/2022 9:47 AM EDT Patient scheduled for nurse visit 05/15/22 to receive Shingrix vaccine. Please place order at this time. Viki Sibley LPN documented in this [facility]09-21-2022 Instructions* Patient Instructions* Abby Mcclellan MD - 04/18/2022 2:55 PM EDT Consider arch support socks. documented in this [facility]09-21-2022 History of Present illness Narrative* Abby Mcclellan [...] 325 pedals. Form completed for insurance to [facility] and send test strips. Does not want COVID vaccine. Gets mammogram and colonoscopy at [facility]. Last scope was 2015. Lost wedding wring when had COVID probably in August. Colonoscopy done by Dr. Sanchez at [facility]. 2018. Told 10 years for next one. [...] Uncontrolled E11.65 Insulin: Yes; Accucheck [facility] Medical: [phone] Walker misc Trio Rolling Walker aspirin, enteric [...] up for mammogram, yearly mammogram recommended - [facility] SCREENING 5. Essential hypertension - ICD9: 401.9, ICD10: I10 - good control - Continue current medication(s) - Recommended regular aerobic exercise. - Discussed need and benefit for weight loss. - Goal of BP <130/80 - COMP METABOLIC PANEL - LIPID PANEL BASIC - CBC Abby Mcclellan MD documented in this encounterMercy Health Fairfield Hospital05-27-2022 History of Present illness Narrative* Munira [...] 22, 2021 1:38 PM documented in this encounterMercy Health Fairfield Hospital05-10-2022 Miscellaneous Notes* Telephone Encounter - Teresa [...] mg/dL [phone] documented in this encounterMercy Health Fairfield Hospital10-21-2020 History of Present illness Narrative* Suzanne [...] 18, 2020 4:47 PM documented in this encounterMercy Health Fairfield Hospital06-09-2016 History of Past illness Narrative* Problem [...] Value 09/15/2016 5.8 2016 Test sent to [facility]. ) Last Ophthalmology exam was within the past 12 months Assessment: Stable, good controle PLAN: No change. Cut back on testing to 1 x per Pain in joint, lower leg 04/21/2007 011 documented as of this encounter (statuses as of 12/08/2021) [facility]06-[facility] History of Past illness Narrative* Problem [...] Value 09/15/2016 5.8 2016 Test sent to [facility]. ) Last Ophthalmology exam was within the past 12 months Assessment: Stable, good controle PLAN: No change. Cut back on testing to 1 x per Pain in joint, lower leg 04/21/2007 011 documented as of this encounter (statuses as of 12/22/2021) [facility] History of Past illness Narrative* Problem [...] Value 09/15/2016 5.8 2016 Test sent to [facility]. ) Last Ophthalmology exam was within the past 12 months Assessment: Stable, good controle PLAN: No change. Cut back on testing to 1 x per Pain in joint, lower leg 04/21/2007 011 documented as of this encounter (statuses as of 05/04/2022) [facility] History of Past illness Narrative* Problem [...] Value 09/15/2016 5.8 2016 Test sent to [facility]. ) Last Ophthalmology exam was within the past 12 months Assessment: Stable, good controle PLAN: No change. Cut back on testing to 1 x per Pain in joint, lower leg 04/21/2007 011 documented as of this encounter (statuses as of 05/15/2022) [facility] History of Past illness Narrative* Problem [...] Value 09/15/2016 5.8 2016 Test sent to [facility]. ) Last Ophthalmology exam was within the past 12 months Assessment: Stable, good controle PLAN: No change. Cut back on testing to 1 x per Pain in joint, lower leg 04/21/2007 011 documented as of this encounter (statuses as of 05/25/2022) [facility] History of Past illness Narrative* Problem [...] Value 09/15/2016 5.8 2016 Test sent to [facility]. ) Last Ophthalmology exam was within the past 12 months Assessment: Stable, good controle PLAN: No change. Cut back on testing to 1 x per Pain in joint, lower leg 04/21/2007 011 documented as of this encounter (statuses as of 08/02/2022) [facility] History of Past illness Narrative* Problem [...] Value 09/15/2016 5.8 2016 Test sent to [facility]. ) Last Ophthalmology exam was within the past 12 months Assessment: Stable, good controle PLAN: No change. Cut back on testing to 1 x per Pain in joint, lower leg 04/21/2007 011 documented as of this encounter (statuses as of 10/19/2022) [facility] History of Past illness Narrative* Problem [...] Value 09/15/2016 5.8 2016 Test sent to [facility] [facility]. ) Last Ophthalmology exam was within the past 12 months Assessment: Stable, good controle PLAN: No change. Cut back on testing to 1 x per Pain in joint, lower leg 04/21/2007 011 documented as of this encounter (statuses as of 11/09/2022) [facility] History of Past illness Narrative* Problem [...] Value 09/15/2016 5.8 2016 Test sent to [facility]. ) Last Ophthalmology exam was within the past 12 months Assessment: Stable, good controle PLAN: No change. Cut back on testing to 1 x per Pain in joint, lower leg 04/21/2007 011 documented as of this encounter (statuses as of 01/16/2023) [facility] History of Past illness Narrative* Problem [...] Value 09/15/2016 5.8 2016 Test sent to [facility]. ) Last Ophthalmology exam was within the past 12 months Assessment: Stable, good controle PLAN: No change. Cut back on testing to 1 x per Pain in joint, lower leg 04/21/2007 011 documented as of this encounter (statuses as of 01/21/2023) [facility] History of Past illness Narrative* Problem [...] Value 09/15/2016 5.8 2016 Test sent to [facility]. ) Last Ophthalmology exam was within the past 12 months Assessment: Stable, good controle PLAN: No change. Cut back on testing to 1 x per Pain in joint, lower leg 04/21/2007 documented as of this encounter (statuses as of 04/19/2023) [facility] History of Past illness Narrative* Problem [...] Value 09/15/2016 5.8 2016 Test sent to [facility]. ) Last Ophthalmology exam was within the past 12 months Assessment: Stable, good controle PLAN: No change. Cut back on testing to 1 x per Pain in joint, lower leg 04/21/2007 documented as of this encounter (statuses as of 05/02/2023) [facility] History of Past illness Narrative* Problem [...] Value 09/15/2016 5.8 2016 Test sent to [facility]. ) Last Ophthalmology exam was within the past 12 months Assessment: Stable, good controle PLAN: No change. Cut back on testing to 1 x per Pain in joint, lower leg 04/21/2007 documented as of this encounter (statuses as of 05/11/2023) [facility] History of Past illness Narrative* Problem [...] Value 09/15/2016 5.8 2016 Test sent to [facility]. ) Last Ophthalmology exam was within the past 12 months Assessment: Stable, good controle PLAN: No change. Cut back on testing to 1 x per Pain in joint, lower leg 04/21/2007 documented as of this encounter (statuses as of 05/16/2023) [facility] History of Past illness Narrative* Problem [...] Value 09/15/2016 5.8 2016 Test sent to [facility]. ) Last Ophthalmology exam was within the past 12 months Assessment: Stable, good controle PLAN: No change. Cut back on testing to 1 x per Pain in joint, lower leg 04/21/2007 documented as of this encounter (statuses as of 06/02/2023) [facility] History of Past illness Narrative* Problem [...] Value 09/15/2016 5.8 2016 Test sent to [facility]. ) Last Ophthalmology exam was within the past 12 months Assessment: Stable, good controle PLAN: No change. Cut back on testing to 1 x per Pain in joint, lower leg 04/21/2007 documented as of this encounter (statuses as of 07/12/2023) [facility] History of Past illness Narrative* Problem [...] Value 09/15/2016 5.8 2016 Test sent to [facility]. ) Last Ophthalmology exam was within the past 12 months Assessment: Stable, good controle PLAN: No change. Cut back on testing to 1 x per Pain in joint, lower leg 04/21/2007 documented as of this encounter (statuses as of 10/07/2023) [facility] History of Past illness Narrative* Problem [...] Value 09/15/2016 5.8 2016 Test sent to [facility]. ) Last Ophthalmology exam was within the past 12 months Assessment: Stable, good controle PLAN: No change. Cut back on testing to 1 x per Pain in joint, lower leg 04/21/2007 documented as of this encounter (statuses as of 10/08/2023) [facility] History of Past illness Narrative* Problem [...] Value 09/15/2016 5.8 2016 Test sent to [facility]. ) Last Ophthalmology exam was within the past 12 months Assessment: Stable, good controle PLAN: No change. Cut back on testing to 1 x per Pain in joint, lower leg 04/21/2007 Tachycardia, unspecified 04/03/2005 documented as of this encounter (statuses as of 11/13/2023) [facility] History of Past illness Narrative* Problem [...] Value 09/15/2016 5.8 2016 Test sent to [facility]. ) Last Ophthalmology exam was within the past 12 months Assessment: Stable, good controle PLAN: No change. Cut back on testing to 1 x per Pain in joint, lower leg 04/21/2007 Tachycardia, unspecified 04/03/2005 documented as of this encounter (statuses as of 11/15/2023) [facility] Evaluation note* Diagnosis Onset Date Resolution Status Essential (primary) hypertension chronic Nonrheumatic aortic (valve) stenosis chronic Atrial fibrillation with rap id ventricular response August, resolved [facility] Work Phone: Evaluation note* Diagnosis Onset Date Resolution Status Diabetes acute Obesity acute Essential (primary) hypertension chronic [facility] Work Phone: Evaluation note* Diagnosis Need for vaccination- Primary Need for prophylactic vaccination and inoculation against unspecified single disease [facility] Diagnosis Need for vaccination- Primary Need for prophylactic vaccination and inoculation against unspecified single disease [facility] Diagnosis Controlled type 2 diabetes mellitus without complication, without long-term current use of insulin (HCC)- Primary Plantar fasciitis of right foot Plantar fascial fibromatosis Nonrheumatic aortic valve stenosis Aortic valve disorders Encounter for screening mammogram for breast cancer Essential hypertension Unspecified essential hypertension [facility]* Diagnosis Acute cough- Primary [facility]* Diagnosis Controlled type 2 diabetes mellitus without complication, without long-term current use of insulin (HCC)- Primary [facility]* Diagnosis Type 2 diabetes mellitus with hyperglycemia, without long-term current use of insulin (HCC)- Primary Essential hypertension Unspecified essential hypertension Hyperlipidemia associated with type 2 diabetes mellitus (HCC) Moderate aortic stenosis by prior echocardiogram Aortic valve disorders Acute cough [facility]* Diagnosis Controlled type 2 diabetes mellitus without complication, without long-term current use of insulin (HCC) [facility]* Diagnosis Encounter for screening mammogram for breast cancer [facility]* Diagnosis Type 2 diabetes mellitus with other specified complication, without long-term current use of insulin (HCC)- Primary Hypertension goal BP (blood pressure) < 140/90 Unspecified essential hypertension Hyperlipidemia associated with type 2 diabetes mellitus (HCC) (HCC) [facility]* Diagnosis Medicare annual wellness visit, subsequent- [...] therapeutic drug monitoring [facility]* Diagnosis Severe aortic stenosis- Primary Aortic valve disorders Memory loss Dizziness Dizziness and giddiness Daytime hypersomnolence Polypharmacy Issue of repeat prescriptions documented in this encounter [facility] note* Diagnosis Nonrheumatic aortic valve stenosis- Primary PAF (paroxysmal atrial fibrillation) ([facility]) Atrial fibrillation documented in this encounter [facility] note* Diagnosis Nonrheumatic aortic valve stenosis documented in this encounter [facility] note* Diagnosis Severe aortic stenosis- Primary Aortic valve disorders documented in this encounter [facility] note* Diagnosis Nonrheumatic aortic valve stenosis- Primary Severe aortic stenosis- Primary Aortic valve disorders Nonrheumatic aortic valve stenosis documented in this encounter [facility] note* Diagnosis Nonrheumatic aortic valve stenosis- Primary Nonrheumatic aortic valve stenosis Severe aortic stenosis Aortic valve disorders Complete heart block (CMS/HCC) (HCC) Atrioventricular block, complete Complete heart block (CMS/HCC) (HCC) Atrioventricular block, complete Nonrheumatic aortic valve stenosis Complete heart block (CMS/HCC) (HCC) Atrioventricular block, complete Encounter for adjustment or management of cardiac device documented in this encounter [facility] note* Diagnosis S/P TAVR (transcatheter aortic valve replacement)- Primary Essential hypertension Unspecified essential hypertension Aortic valve stenosis, etiology of cardiac valve disease unspecified Complete heart block (HCC) Atrioventricular block, complete documented in this encounter [facility] note* Diagnosis Controlled type 2 diabetes mellitus without complication, without long-term current use of insulin (HCC)- Primary BMI 45.0-49.9, adult ([facility]) Body Mass Index 45.0-49.9, adult Hypertension goal BP (blood pressure) < 140/90 Unspecified essential hypertension Hand pain, left Pain in limb Need for shingles vaccine Need for prophylactic vaccination and inoculation against other viral diseases Acute cough documented [facility]* Diagnosis Severe aortic stenosis- Primary Aortic valve disorders PAF (paroxysmal atrial fibrillation) (HCC) Atrial fibrillation Essential hypertension Unspecified essential hypertension Complete heart block (HCC) Atrioventricular block, complete Encounter for adjustment or management of cardiac device documented in this encounter [facility] note* Diagnosis Aortic valve stenosis, etiology of cardiac valve disease unspecified Encounter for adjustment or management of cardiac device documented in this encounter [facility] note* Diagnosis Severe aortic stenosis- Primary Aortic valve disorders Memory loss Dizziness Dizziness and giddiness Daytime hypersomnolence Polypharmacy Issue of repeat prescriptions Severe aortic stenosis- Primary Aortic valve disorders PAF (paroxysmal atrial fibrillation) ([facility]) Atrial fibrillation Essential hypertension Unspecified essential hypertension Complete heart block (HCC) Atrioventricular block, complete PAF (paroxysmal atrial fibrillation) ([facility]) Atrial fibrillation Encounter for adjustment or management of cardiac device documented in this encounter [facility] note* Diagnosis Controlled type 2 diabetes mellitus without complication, without long-term current use of insulin ([facility])- Primary BMI 45.0-49.9, adult ([facility]) Body Mass Index 45.0-49.9, adult Hypertension goal BP (blood pressure) < 140/90 Unspecified essential hypertension Hand pain, left Pain in limb Need for shingles vaccine Need for prophylactic vaccination and inoculation against other viral diseases Type 2 diabetes mellitus with other specified complication, without long-term current use of insulin ([facility])- Primary Hypertension goal BP (blood pressure) < 140/90 Unspecified essential hypertension Hyperlipidemia associated with type 2 diabetes mellitus ([facility]) ([facility]) documented in this encounter [facility] note* Diagnosis Controlled type 2 diabetes mellitus without complication, without long-term current use of insulin ([facility])- Primary BMI 45.0-49.9, adult ([facility]) Body Mass Index 45.0-49.9, adult Hypertension goal BP (blood pressure) < 140/90 Unspecified essential hypertension Hand pain, left Pain in limb Need for shingles vaccine Need for prophylactic vaccination and inoculation against other viral diseases Type 2 diabetes mellitus with hyperglycemia, without long-term current use of insulin ([facility])- Primary Hyperlipidemia associated with type 2 diabetes mellitus (HCC) ([facility]) Hypertension goal BP (blood pressure) < 140/90 Unspecified essential hypertension PAF (paroxysmal atrial fibrillation) ([facility]) Atrial fibrillation Class 3 severe obesity due to excess calories with body mass index (BMI) of 45.0 to 49.9 in adult, unspecified whether serious comorbidity present ([facility]) Encounter for immunization Need for other specified prophylactic vaccination against single bacterial disease Nonrheumatic aortic valve stenosis Aortic valve disorders Arm edema Edema Cardiac pacemaker Cardiac pacemaker in situ documented in this encounter [facility] note* Diagnosis Controlled type 2 diabetes mellitus without complication, without long-term current use of insulin ([facility])- Primary BMI 45.0-49.9, adult ([facility]) Body Mass Index 45.0-49.9, adult Hypertension goal [...] diabetes mellitus (HCC) documented in this encounter [facility] noteNo assessment information [facility]Prov[facility] Work [facility]: [facility]* Diagnosis Controlled type 2 diabetes mellitus without complication, without long-term current use of insulin (HCC)- Primary BMI 45.0-49.9, adult ([facility]) Body Mass Index 45.0-49.9, adult Hypertension goal [...] Sciatic leg pain documented in this encounter [facility] note* Diagnosis Controlled type 2 [...] Unspecified essential hypertension documented in this encounter [facility] note* Diagnosis Controlled type 2 [...] of insulin (HCC) [facility]* Diagnosis Onset Date Resolution Status Admit Date Intermittent complete heart block acute February 08, 2025 10:09am Paroxysmal atrial fibrillation acute February 08, 2025 10:09am Essential (primary) hypertension chronic February 08, 2025 10:09am Nonrheumatic aortic (valve) stenosis chronic February 08, 2025 10:09am [employer] Work Phone: Evaluation note* Diagnosis Controlled type [...] of insulin (HCC) [facility] Diagnostic Procedure Only (Routine) - Pending Review Specialty Diagnoses / Procedures Referred By Contac t Referred To Contact [facility] Diagnoses Encounter for screening mammogram for breast cancer Procedures DAVID SCREENING SCREENING MAMMOGRAPHY BI 2-VIEW BREAST INC Abby So MD [address] [place] [address] [facility] [address] [place] [address] Referral ID Status Reason Start Date Expiration Date Visits Requested Visits Authorized [id number] Pending Review Auto-Generat ed Referral 04/18/2022 05/18/2023 1 1 [facility] for referral (narrative)* Diagnostic Procedure Only (Routine) - Closed Specialty Diagnoses / Procedures Referred By Zandra oliva Referred To Contact [facility] Diagnoses Encounter for screening mammogram for breast cancer Procedures DAVID SCREENING SCREENING MAMMOGRAPHY BI 2-VIEW BREAST INC Abby So MD [address] [place] [address] [facility] [address] [place] [address] Referral ID Status Reason Start Date Expiration Date V isits Requested Visits Authorized [id number] Closed Auto-Generate d Referral 04/18/2022 05/18/2023 1 1 [facility] for referral (narrative)No reason for referral information availableProv[facility] Work Phone: Reason for visit Narrative* Diagnostic Procedure Only (Routine) - Closed Specialty Diagnoses / Procedures Referred By Zandra oliva Referred To Contact [facility] Diagnoses Encounter for screening mammogram for breast cancer Procedures DAVID SCREENING SCREENING MAMMOGRAPHY BI 2-VIEW BREAST INC Abby So MD [address] [place] [address] [facility] [address] [place] [address] Referral ID Status Reason Start Date Expiration Date V isits Requested Visits Authorized [id number] Closed Auto-Generate d Referral 04/18/2022 05/18/2023 1 1 [facility] Chief Complaint and Reason for Visit Chief Complaint f/u visit Michael NONRHEUMATIC AORTIC STENOSIS HAYDEE Reason for Visit Essential (primary) hypertension Nonrheumatic aortic (valve) stenosis Atrial fibrillation with rapid ventricular response 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 Yes December 02, 2019 1:55pm Advance Directives Yes January 19 8:53am Reason for Referral Specialty Diagnoses / Procedures Referred By Contac t Referred To Contact Radiology Diagnoses Nonrheumatic aortic valve stenosis Procedures CTA Angiogram TAVR America Davis APRN - PURCHASING AND CLAIMS SUPERVISOR [address] [place] [address] Referral ID Status Reason Start Date Expiration Date Visits Re quested Visits Authorized [id number] Closed 03/10/2024 05/09/2024 1 1 Specialty Diagnoses / Procedures Referred By Contac t Referred To Contact Cardiology Diagnoses S/P TAVR (transcatheter aortic valve replacement) Aortic valve stenosis, etiology of cardiac valve disease unspecified Procedures Transthoracic echocardiogram (TTE) complete with contrast, bubble, strain, and 3D PRN VT ECHO TTHRC R-T 2D W/WOM-MODE COMPL SPEC&COLR D VT TTE W OR WO FOL WCON,DOPPLER Lindsey Tolentino NEWSPAPER EDITOR MANAGING - PURCHASING AND CLAIMS SUPERVISOR [address] [address] Referral ID Status Reason Start Date Expiration Date V isits Requested Visits Authorized [id number] Pending Review 04/17/2024 04/17/2025 1 1 Specialty Diagnoses / Procedures Referred By Contac t Referred To Contact Cardiology Diagnoses Essential hypertension S/P TAVR (transcatheter aortic valve replacement) Aortic valve stenosis, etiology of cardiac valve disease unspecified Procedures VT OFFICE/OUTPATIENT [facility] 60 MINUTES Lindsey Tolentino NEWSPAPER EDITOR MANAGING - PURCHASING AND CLAIMS SUPERVISOR [address] [address] Referral ID Status Reason Start Date Expiration Date Visits Requested Visits Authorized [id number] Pending Review Specialty Services Required 04/17/2024 04/17/2025 1 1 Specialty Diagnoses / Procedures [facility] Ref[facility] To Contact Cardiology Diagnoses Aortic valve stenosis, etiology of cardiac valve disease unspecified Procedures Transthoracic echocardiogram (TTE) complete with contrast, bubble, strain, and 3D PRN VT ECHO TTHRC R-T 2D W/WOM-MODE COMPL SPEC&COLR D VT TTE W OR WO FOL WCON,Lindsey Castro, NEWSPAPER EDITOR MANAGING - PURCHASING AND CLAIMS SUPERVISOR [address] [place] [address] Referral ID Status Reason Start Date Expiration Date Visits Re quested Visits Authorized [id number] Closed 05/07/2024 07/05/2024 1 1 Summary Purpose [...] or prosecute any alcohol or drug abuse patient.[facility] Hospital[facility] the event this information is protected by the Federal Confidentiality of Alcohol and Drug Abuse Patient Records regulations: The Federal rules restrict any use of the information to criminally investigate or prosecute any alcohol or drug abuse patient.[facility] HospitalIn the event this information is protected by the Federal Confidentiality of Alcohol and Drug Abuse Patient Records regulations: The Federal rules restrict any use of the information to criminally investigate or prosecute any alcohol or drug abuse patient.[facility] HospitalIn the event this information is protected by the Federal Confidentiality of Alcohol and Drug Abuse Patient Records regulations: The Federal rules restrict any use of the information to criminally investigate or prosecute any alcohol or drug abuse patient.[facility] HospitalIn the event this information is protected by the Federal Confidentiality of Alcohol and Drug Abuse Patient Records regulations: The Federal rules restrict any use of the information to criminally investigate or prosecute any alcohol or drug abuse patient.[facility] HospitalIn the event this information is protected by the Federal Confidentiality of Alcohol and Drug Abuse Patient Records regulations: The Federal rules restrict any use of the information to criminally investigate or prosecute any alcohol or drug abuse patient.[facility] HospitalIn the event this information is protected by the Federal Confidentiality of Alcohol and Drug Abuse Patient Records regulations: The Federal rules restrict any use of the information to criminally investigate or prosecute any alcohol or drug abuse patient.[facility] HospitalIn the event this information is protected by the Federal Confidentiality of Alcohol and Drug Abuse Patient Records regulations: The Federal rules restrict any use of the information to criminally investigate or prosecute any alcohol or drug abuse patient.[facility] HospitalIn the event this information is protected by the Federal Confidentiality of Alcohol and Drug Abuse Patient Records regulations: The Federal rules restrict any use of the information to criminally investigate or prosecute any alcohol or drug abuse patient.[facility] HospitalIn the event this information is protected by the Federal Confidentiality of Alcohol and Drug Abuse Patient Records regulations: The Federal rules restrict any use of the information to criminally investigate or prosecute any alcohol or drug abuse patient.[facility] HospitalIn the event this information is protected by the Federal Confidentiality of Alcohol and Drug Abuse Patient Records regulations: The Federal rules restrict any use of the information to criminally investigate or prosecute any alcohol or drug abuse patient.[facility] HospitalIn the event this information is protected by the Federal Confidentiality of Alcohol and Drug Abuse Patient Records regulations: The Federal rules restrict any use of the information to criminally investigate or prosecute any alcohol or drug abuse patient.[facility] HospitalIn the event this information is protected by the Federal Confidentiality of Alcohol and Drug Abuse Patient Records regulations: The Federal rules restrict any use of the information to criminally investigate or prosecute any alcohol or drug abuse patient.[facility] HospitalIn the event this information is protected by the Federal Confidentiality of Alcohol and Drug Abuse Patient Records regulations: The Federal rules restrict any use of the information to criminally investigate or prosecute any alcohol or drug abuse patient.[facility] HospitalIn the event this information is protected by the Federal Confidentiality of Alcohol and Drug Abuse Patient Records regulations: The Federal rules restrict any use of the information to criminally investigate or prosecute any alcohol or drug abuse patient.[facility] HospitalIn the event this information is protected by the Federal Confidentiality of Alcohol and Drug Abuse Patient Records regulations: The Federal rules restrict any use of the information to criminally investigate or prosecute any alcohol or drug abuse patient.[facility] HospitalIn the event this information is protected by the Federal Confidentiality of Alcohol and Drug Abuse Patient Records regulations: The Federal rules restrict any use of the information to criminally investigate or prosecute any alcohol or drug abuse patient.[facility] HospitalIn the event this information is protected by the Federal Confidentiality of Alcohol and Drug Abuse Patient Records regulations: The Federal rules restrict any use of the information to criminally investigate or prosecute any alcohol or drug abuse patient.[facility] HospitalIn the event this information is protected by the Federal Confidentiality of Alcohol and Drug Abuse Patient Records regulations: The Federal rules restrict any use of the information to criminally investigate or prosecute any alcohol or drug abuse patient.[facility] HospitalIn the event this information is protected by the Federal Confidentiality of Alcohol and Drug Abuse Patient Records regulations: The Federal rules restrict any use of the information to criminally investigate or prosecute any alcohol or drug abuse patient.[facility] HospitalIn the event this information is protected by the Federal Confidentiality of Alcohol and Drug Abuse Patient Records regulations: The Federal rules restrict any use of the information to criminally investigate or prosecute any alcohol or drug abuse patient.[facility] HospitalIn the event this information is protected by the Federal Confidentiality of Alcohol and Drug Abuse Patient Records regulations: The Federal rules restrict any use of the information to criminally investigate or prosecute any alcohol or drug abuse patient.[facility] HospitalIn the event this information is protected by the Federal Confidentiality of Alcohol and Drug Abuse Patient Records regulations: The Federal rules restrict any use of the information to criminally investigate or prosecute any alcohol or drug abuse patient.[facility] HospitalIn the event this information is protected by the Federal Confidentiality of Alcohol and Drug Abuse Patient Records regulations: The Federal rules restrict any use of the information to criminally investigate or prosecute any alcohol or drug abuse patient.[facility] HospitalIn the event this information is protected by the Federal Confidentiality of Alcohol and Drug Abuse Patient Records regulations: The Federal rules restrict any use of the information to criminally investigate or prosecute any alcohol or drug abuse patient.[facility] HospitalIn the event this information is protected by the Federal Confidentiality of Alcohol and Drug Abuse Patient Records regulations: The Federal rules restrict any use of the information to criminally investigate or prosecute any alcohol or drug abuse patient.[facility] HospitalIn the event this information is protected by the Federal Confidentiality of Alcohol and Drug Abuse Patient Records regulations: The Federal rules restrict any use of the information to criminally investigate or prosecute any alcohol or drug abuse patient.[facility] HospitalIn the event this information is protected by the Federal Confidentiality of Alcohol and Drug Abuse Patient Records regulations: The Federal rules restrict any use of the information to criminally investigate or prosecute any alcohol or drug abuse patient.[facility] HospitalIn the event this information is protected by the Federal Confidentiality of Alcohol and Drug Abuse Patient Records regulations: The Federal rules restrict any use of the information to criminally investigate or prosecute any alcohol or drug abuse patient.[facility] HospitalIn the event this information is protected by the Federal Confidentiality of Alcohol and Drug Abuse Patient Records regulations: The Federal rules restrict any use of the information to criminally investigate or prosecute any alcohol or drug abuse patient.[facility] the event this information is protected by the Federal Confidentiality of Alcohol and Drug Abuse Patient Records regulations: The Federal rules restrict any use of the information to criminally investigate or prosecute any alcohol or drug abuse patient.[facility] HospitalIn the event this information is protected by the Federal Confidentiality of Alcohol and Drug Abuse Patient Records regulations: The Federal rules restrict any use of the information to criminally investigate or prosecute any alcohol or drug abuse patient.[facility] HospitalIn the event this information is protected [...] or prosecute any alcohol or drug abuse patient.[facility] HospitalIn the event this information is protected by the Federal Confidentiality of Alcohol and Drug Abuse Patient Records regulations: The Federal rules restrict any use of the information to criminally investigate or prosecute any alcohol or drug abuse patient.[facility] HospitalIn the event this information is protected by the Federal Confidentiality of Alcohol and Drug Abuse Patient Records regulations: The Federal rules restrict any use of the information to criminally investigate or prosecute any alcohol or drug abuse patient.[facility] HospitalIn the event this information is protected by the Federal Confidentiality of Alcohol and Drug Abuse Patient Records regulations: The Federal rules restrict any use of the information to criminally investigate or prosecute any alcohol or drug abuse patient.[facility] Reason for Visit (unrecogniz ed section [...] Clinic Specialty Diagnoses / Procedures [facility] To Contact Radiology Diagnoses Nonrheumatic aortic valve stenosis Procedures CTA Angiogram TAVR America Davis APRN - PURCHASING AND CLAIMS SUPERVISOR [address] [place] [address] Referral ID Status Reason Start Date Expiration Date Visits Re quested Visits Authorized [id number] Closed 03/10/2024 05/09/2024 1 1 Specialty Diagnoses / Procedures [facility] Referred To Contact Diagnoses Nonrheumatic aortic valve stenosis Procedures VT REPLACE AORTIC VALVE PERQ FEMORAL ARTRY APPROACH TRANSCATHETER AORTIC VALVE REPLACEMENT, TRANSTHORACIC ECHOCARDIOGRAM TRANSCATHETER AORTIC VALVE REPLACEMENT, TRANSTHORACIC ECHOCARDIOGRAM Srinivasa Poon MD [address] [place] [address] Referral ID Status Reason Start Date Expiration Date Visits Re quested Visits Authorized [id number] 03/17/2024 1 1 Reason Comments Hospital Follow-up Reason Onset Date Comments Refill Request 04/23/2024 Reason Comments 1 Month Follow Up Specialty Diagnoses / Procedures Referred By [facility] t Referred To Contact Cardiology Diagnoses Aortic valve stenosis, etiology of cardiac valve disease unspecified Procedures Transthoracic echocardiogram (TTE) complete with contrast, bubble, strain, and 3D PRN VT ECHO TTHRC R-T 2D W/WOM-MODE COMPL SPEC&COLR D VT TTE W OR WO FOL WCON,DOPPLER FerLindsey, NEWSPAPER EDITOR MANAGING - PURCHASING AND CLAIMS SUPERVISOR [address] [address] Referral ID Status Reason Start Date Expiration Date Visits Re quested Visits Authorized [id number] Closed 05/07/2024 07/05/2024 1 1 Reason Onset [...] Care Teams (unrecognized sec tion and content) Drip Pumper Relationship Specialty Start Date End Date Abby Mcclellan MD [address] [place] [address] PCP - General Internal Medicine 12/05/12 Drip Pumper Relationship Specialty Start Date End Date Abby Mcclellan MD [address] [place] [address] PCP - General Internal Medicine 12/05/12 Drip Pumper Relationship Specialty Start Date End Date Abby Mcclellan MD [address] [place], [place] [address] PCP - General Internal Medicine 12/05/12 Drip Pumper Relationship Specialty Start Date End Date Abby Mcclellan MD [address] [place] [address] PCP - General Internal Medicine 12/05/12 Drip Pumper Relationship Specialty Start Date End Date Abby Mcclellan MD [address] [place] [address] PCP - General Internal Medicine 12/05/12 Drip Pumper Relationship Specialty Start Date End Date Abby Mcclellan MD [address] [place] [address] PCP - General Internal Medicine 12/05/12 Drip Pumper Relationship Specialty Start Date End Date Abby Mcclellan MD [address] [place] [address] PCP - General Internal Medicine 12/05/12 Drip Pumper Relationship Specialty Start Date End Date Abby Mcclellan MD [address] [place] [address] PCP - General Internal Medicine 12/05/12 Drip Pumper Relationship Specialty Start Date End Date Abby Mcclellan MD [address] [place] [address] PCP - General Internal Medicine 12/05/12 Drip Pumper Relationship Specialty Start Date End Date Abby Mcclellan MD [address] [place] [address] PCP - General Internal Medicine 12/05/12 Drip Pumper Relationship Specialty Start Date End Date Abby Mcclellan MD [address] [place] [address] PCP - General Internal Medicine 12/05/12 Drip Pumper Relationship Specialty Start Date End Date Abby Mcclellan MD [address] [place] [address] PCP - General Internal Medicine 12/05/12 Drip Pumper Relationship Specialty Start Date End Date Abby Mcclellan MD [address] [place] [address] PCP - General Internal Medicine 12/05/12 Drip Pumper Relationship Specialty Start Date End Date Abby Mcclellan MD [address] [place] [address] PCP - General Internal Medicine 12/05/12 Drip Pumper Relationship Specialty Start Date End Date Abby Mcclellan MD [address] [place] [address] PCP - General Internal Medicine 12/05/12 Drip Pumper Relationship Specialty Start Date End Date Abby Mcclellan MD [address] [place] [address] PCP - General Internal Medicine 12/05/12 Drip Pumper Relationship Specialty Start Date End Date Abby Mcclellan MD [address] [place] [address] PCP - General Internal Medicine 12/05/12 Drip Pumper Relationship Specialty Start Date End Date Abby Mcclellan [address] [place] [address] PCP - General Internal Medicine 03/10/24 Drip Pumper Relationship Specialty Start Date End Date Abby Mcclellan [address] [place] [address] PCP - General Internal Medicine 03/10/24 Drip Pumper Relationship Specialty Start Date End Date Abby Mcclellan [address] [place] [address] PCP - General Internal Medicine 03/10/24 Drip Pumper Relationship Specialty Start Date End Date Abby Mcclellan [address] [place] [address] PCP - General Internal Medicine 03/10/24 Drip Pumper Relationship Specialty Start Date End Date Abby Mcclellan [address] [place] [address] PCP - General Internal Medicine 03/10/24 Drip Pumper Relationship Specialty Start Date End Date Abby Mcclellan [address] [place] [address] PCP - General Internal Medicine 03/10/24 Drip Pumper Relationship Specialty Start Date End Date Abby Mcclellan MD [address] [place] [address] PCP - General Internal Medicine 12/05/12 Drip Pumper Relationship Specialty Start Date End Date Abby Mcclellan MD [address] [place] [address] PCP - General Internal Medicine 12/05/12 Drip Pumper Relationship Specialty Start Date End Date Abby Mcclellan [address] [place] [address] PCP - General Internal Medicine 03/10/24 Drip Pumper Relationship Specialty Start Date End Date Abby Mcclellan [address] [facility] [address] PCP - General Internal Medicine 03/10/24 Drip Pumper Relationship Specialty Start Date End Date Abby Mcclellan [address] [place] [address] PCP - General Internal Medicine 03/10/24 Drip Pumper Relationship Specialty Start Date End Date Abby Mcclellan [address] [place] [address] PCP - General Internal Medicine 03/10/24 Drip Pumper Relationship Specialty Start Date End Date Abby Mcclellan MD [address] [place] [address] PCP - General Internal Medicine 12/05/12 Heidy Hawk APRN.RIP/MOULD OPERATOR [address] [place] [address] Artificial Stone Setter Internal Medicine 07/06/24 Kamlesh Acosta APRN.PURCHASING AND CLAIMS SUPERVISOR [address] [place] [address] Artificial Stone Setter Internal Medicine 07/06/24 Drip Pumper Relationship Specialty Start Date End Date Abby Mcclellan MD [address] [place] [address] PCP - General Internal Medicine 12/05/12 Heidy Hawk, NEWSPAPER EDITOR MANAGING.RIP/MOULD OPERATOR [address] [place] [address] Artificial Stone Setter Internal Medicine 07/06/24 Kamlesh Acosta APRN.PURCHASING AND CLAIMS SUPERVISOR [address] [place] [address] Artificial Stone Setter Internal Medicine 07/06/24 Drip Pumper Relationship Specialty Start Date End Date Abby Mcclellan MD [address] [place] [address] PCP - General Internal Medicine 12/05/12 Heidy Hawk, NEWSPAPER EDITOR MANAGING.RIP/MOULD OPERATOR [address] [place] [address] Artificial Stone Setter Internal Medicine 07/06/24 Kamlesh Acosta NEWSPAPER EDITOR MANAGING.PURCHASING AND CLAIMS SUPERVISOR [address] [place] [address] Artificial Stone Setter Internal Medicine 07/06/24 Drip Pumper Relationship Specialty Start Date End Date Abby Mcclellan MD [address] [place] [address] PCP - General Internal Medicine 12/05/12 Heidy Hawk NEWSPAPER EDITOR MANAGING.RIP/MOULD OPERATOR [address] [place] [address] Artificial Stone Setter Internal Medicine 07/06/24 Kamlesh Acosta APRN.PURCHASING AND CLAIMS SUPERVISOR [address] [place] [address] Artificial Stone Setter Internal Medicine 07/06/24 Drip Pumper Relationship Specialty Start Date End Date Abby Mcclellan MD [address] [place] [address] PCP - General Internal Medicine 12/05/12 Heidy Hawk NEWSPAPER EDITOR MANAGING.RIP/MOULD OPERATOR [address] [place] [address] Artificial Stone Setter Internal Medicine 07/06/24 Kamlesh Acosta NEWSPAPER EDITOR MANAGING.PURCHASING AND CLAIMS SUPERVISOR [address] [place] [address] Artificial Stone Setter Internal Medicine 10/20/24 Team Status: Active Member [...] December 07, 2024 End: December 07, 2024 Drip Pumper Relationship Specialty Start Date End Date Abby Mcclellan [address] [place] [address] PCP - General Internal Medicine 03/10/24 Drip Pumper Relationship Specialty Start Date End Date Abby Mcclellan MD [address] [place], [place] [address] PCP - General Internal Medicine 12/05/12 Kamlesh Acosta, NEWSPAPER EDITOR MANAGING.PURCHASING AND CLAIMS SUPERVISOR [address] [place] [address] Artificial Stone Setter Internal Medicine 10/20/24 Heidy Hawk, MILDRED.RIP/MOULD OPERATOR [address] [place] [address] Artificial Stone Setter Internal Medicine 12/16/24 Drip Pumper Relationship Specialty Start Date End Date Abby Mcclellan MD [address] [place] [address] PCP - General Internal Medicine 12/05/12 Kamlesh Acosta APRN.PURCHASING AND CLAIMS SUPERVISOR [address] [place] [address] Artificial Stone Setter Internal Medicine 10/20/24 Heidy Hawk APRN.RIP/MOULD OPERATOR [address] [place] [address] Artificial Stone Setter Internal Medicine 12/16/24 Drip Pumper Relationship Specialty Start Date End Date Abby Mcclellan MD [address] [place] [address] PCP - General Internal Medicine 12/05/12 Kamlesh Acosta APRN.PURCHASING AND CLAIMS SUPERVISOR [address] [place] [address] Artificial Stone Setter Internal Medicine 10/20/24 Heidy Hawk APRN.RIP/MOULD OPERATOR [address] [place] [address] Artificial Stone Setter Internal Medicine 12/16/24 Drip Pumper Relationship Specialty Start Date End Date Abby Mcclellan MD [address] [place] [address] PCP - General Internal Medicine 12/05/12 Kamlesh Acosta APRN.PURCHASING AND CLAIMS SUPERVISOR [address] [place] [address] Artificial Stone Setter Internal Medicine 10/20/24 Heidy Hawk APRN.RIP/MOULD OPERATOR [address] [place] [address] Artificial Stone Setter Internal Medicine 12/16/24 Drip Pumper Relationship Specialty Start Date End Date Abby Mcclellan MD [address] [place] [address] PCP - General Internal Medicine 12/05/12 Heidy Hawk, NEWSPAPER EDITOR MANAGING.RIP/MOULD OPERATOR [address] [place] [address] Artificial Stone Setter Internal Medicine 07/06/24 12/15/24 Kamlesh Acosta NEWSPAPER EDITOR MANAGING.PURCHASING AND CLAIMS SUPERVISOR [address] [place], [place] [address] Artificial Stone Setter Internal Medicine 10/20/24 Heidy Hawk, NEWSPAPER EDITOR MANAGING.RIP/MOULD OPERATOR [address] [place] [address] Artificial Stone Setter Internal Medicine 12/16/24 Team Status: Active Member [...] Referring Provider Active Start: February 08, 2025 iHlary Jackman Attending Provider Active Start: Preeti mead [...] February 08, 2025 End: February 08, 2025 Drip Pumper Relationship Specialty Start Date End Date Abby Mcclellan MD [address] [place] [address] PCP - General Internal Medicine 12/05/12 Kamlesh Acosta APRN.PURCHASING AND CLAIMS SUPERVISOR [address] [place], [place] [address] [facility] Internal Medicine 10/20/24 Heidy Hawk APRN.RIP/MOULD OPERATOR [address] [place], [place] [address] [facility] Internal Medicine 12/16/24 Scheduled Active and Recently [...] (Given - Provider: Al Araujo APRN - TOOL MACHINE SETUP OPERATOR) glipiZIDE (Glucotrol) tablet 10 mg 10 mg, Oral, Daily before breakfast, First dose on Sat04/07/24 at 0900, Substituted for glimepiride (Amaryl). 0933 (Given - Provider: Shasta Badillo RN) 0630 (Given - Provider: Rhonda Kay, STORM) insulin glargine (Lantus) injection 10 Units (COMPLETED) 10 Units, SubCUTAneous, Once, On Sat04/07/24 at 0000, For 1 dose 2356 (Given - Provider: Rhonda Kay, STORM - Comment: [id number]) Insulin [...] provider - Provider: Lindsey Tolentino APRN - PURCHASING AND CLAIMS SUPERVISOR - Reason: Other) 0728 (Unheld by provider [...] dose, Preprocedure, Please send to EP lab ADD-[place] bag, Suspected Indication (Select all that apply): [...] Anesthesia - Provider: Al Araujo APRN - TOOL MACHINE SETUP OPERATOR)1309 (Anesthesia Volume Adjustment - Provider: Al Araujo, NEWSPAPER EDITOR MANAGING - TOOL MACHINE SETUP OPERATOR) 4848 (Stopped - Provider: Shasta Badillo RN - [...] section and content) DATE CREATED AUTHOR 06/15/2024 [facility] DATE CREATED AUTHOR AUTHOR'S ORGANIZ ATION 01/13/2025 [facility] DATE CREATED AUTHOR AUTHOR'S ORGANIZ ATION 02/18/2025 [facility] FOR RECORDS PERTAINING TO PATIENTS WHO ARE [...] BE BASED ON THE PRIMARY CLINICAL RECORDS. [facility] [employer] [facility]. provides no warranty or guarantee of the accuracy or completeness of information in this document.
--- NOTE | 2025-02-26 00:31 | ED.RN ---
report called to Alyson nava.
--- OUTSIDE RECORDS SUMMARY | 2025-02-26 00:58 | XMS RPT_ITS | CCD ---
Author Organization [facility] Care Team Providers Care Distance Learning Technician Name Role Phone Dr. Abby Mcclellan Primary [...] Care Unavailable AMERICA DAVIS Attending Unavailable AMERICA DAIVS Referring Unavailable TALAMPAS, ABBY, Primary Care Unavailable TALAMPAS, ABBY, Primary Care Unavailable AMERICA DAVIS Attending Unavailable TALAMPAS, ABBY, Primary Care Unavailable SRINIVASA POON Attending Unavailable TALAMPAS, ABBY, Primary Care Unavailable RENZO HORTA Attending Unavailable TALAMPAS, ABBY, Primary Care Unavailable IRA AQUINO Attending Unavailable LINDSEY TOLENTINO Attending Unavailable TALAMPAS, ABBY, Primary Care Unavailable Hawk WOUND CARE TECHNICIAN.CHILD AND ADOLESCENT PSYCHOLOGIST, Heidy Unavailable Dave WOUND CARE TECHNICIAN.WAREHOUSE OPERATOR, Kamlesh Unavailable Dave WOUND CARE TECHNICIAN.WAREHOUSE OPERATOR, Kamlesh Gely Unavailable Dave WOUND CARE TECHNICIAN.WAREHOUSE OPERATOR, Kamlesh Unavailable Dave WOUND CARE TECHNICIAN.WAREHOUSE OPERATOR, Kamlesh Unavailable Vy RAZA, Dr. Abby Edwards Primary Care Provider [phone] Haydee RAZA, Dr. Shen Attending Provider Hawk WOUND CARE TECHNICIAN.CHILD AND ADOLESCENT PSYCHOLOGIST, Heidy Unavailable DAVE, KAMLESH Attending Unavailable TALAMPAS, [...] TALAMPAS, ABBY D Primary Care Unavailable Hawk WOUND CARE TECHNICIAN.CHILD AND ADOLESCENT PSYCHOLOGIST, Heidy Unavailable Dr. Abby Mcclellan MD Primary Care Provider Dr. Ac Hubbard MD Attending Provider Dr. Abby Mcclellan MD Referring Provider Hilary Jackman Attending Provider Unavailable Gm Carter Attending Provider Ac Hubbard Attending Unavailable Talampas, Abby D Primary Care Unavailable Haydee, Purdy Attending Unavailable Talampas, Abby D Primary Care Unavailable Haydee, Ac Attending Unavailable Talampas, Abby D Primary Care Unavailable Talampas, Abby D Primary Care Unavailable Haydee, Ac Attending Unavailable Talampas, Abby D Primary Care Unavailable Haydee, Purdy Attending Unavailable Talampas, Abby D Referring Unavailable Talampas, Abby D Primary Care Unavailable Haydee, Purdy Attending Unavailable Talampas, Abby D Referring Unavailable [...] sources) atorvastatin; Translations: [ATORVASTATIN] Drug Allergy 06-27-2016 [facility] Work Phone: (17 sources) atorvastatin Drug Allergy 06-27-2016 [facility] (1 source) atorvastatin Drug Allergy 02-08-2025 [facility] Repository Medications Current Medications Medication Drug Class(es) [...] Start: 06-02-2024 take 2 tablets by mo [facility] twice daily Glimepiride 2 mg tablet Active [...] on above: Take one(1) tablet d aily. Bkaectlzwxg-Udcnxtlmn-C it C-Mn (GLUCOSAMINE 1500 COMPLEX PO) (17 [...] directed. docusate sodium 50 mg / sennosides, assisted 8.6 mg oral tablet (7 sources) Start: [...] dose, Preprocedure, Please send to EP lab ADD-Harvey bag, Suspected Indication (Select all that apply): [...] aftercare (18 sources) Polypharmacy ; Translations: [Other halfway (current) drug therapy] Onset: 03-10-2024 4 Episodic Other aftercare (2 sources) Other halfway (current) drug therapy; Translations: [Other petroleum terminal [...] Facility Cardiology Visit Reporton Cardiology Visit Report [facility] [address] [place] [address] OFFICE VISIT Date of Service: 02/08/25 MR#: [id number] Acct: [id number] Name: LITO GONZALEZ Rep #: [id number] : 1950 Provider: LANI Cartagena Age/Sex: 74/F Location: [facility] Status: Signed HPI HPI History of Present [...] Visit Reasons: 1 Y FU/BARON @ 10 Tubing Tester Required: No Is patient in pain?: No [...] JVD Carot (more content not included)... Normal [facility] Pacemaker Checkon 02-08-2025 Pacemaker Check [facility] [address] [place] [address]. [address] [place] [address] Pacemaker Check Date of Service: 02/08/25 1334 MR#: [id number] Acct: [id number] Name: LITO GONZALEZ Rep #: [id number] : 1950 From: Hilary Jackman Age/Sex: 74/F Location: [facility] Status: Signed Billing Codes PM Device Codes: 71742 PM Dev Prog Eval, Dual Assessment and Plan Assessment and Plan (1) Paroxysmal atrial fibrillation: Status: Acute (2) Intermittent complete heart block: Status: Acute (3) Presence of cardiac pacemaker: Status: Chronic 02/08/25 1335 Date Hilary Espinoza Signature: Date (if applicable) CC: Normal [facility] CNOVon 01-11-2025 CNOV Office Visit (INTMWS ) LITO GONZALEZ ([id number]) 1950 F Date Time Provider Department 01/11/25 11:20 AM KAMLESH ACOSTA During your visit today, we recorded the following information about you: Pulse Blood pressure Weight 108/minute 120/78 110.4 kg Kamlesh Acosta APRN.WAREHOUSE OPERATOR 01/11/2025 12:32 PM Signed SUBJECTIVE Lito Gonzalez [...] - 02/25/2024 Paf (Paroxysmal Atrial Fibrillation) (Formerly [facility]) - 12/07/2021 Comment: [facility] Nonrheumatic Aortic Valve Stenosis - 12/07/2021 Comment: [facility], echo 2021 [facility] Status Post Right Hip Replacement - 12/23/2019 Difficulty in Walking Involving Lower Leg Joint Acid Indigestion - 03/26/2016 Polycythemia, Secondary - 03/28/2011 Comment: This was abnormal, seen by , testing was normal. Generalized Osteoarthrosis, Involving Multiple Sites - 05/10/2008 Diabetes Mellitus (Formerly [facility]) - 10/20/2007 Hypertension Goal Bp (Blood Pressure) < 140/90 - 10/12/2005 Hyperlipidemia Associated With Type 2 Diabetes Mellitus (Formerly [facility]) - 10/12/2005 Class 3 Severe Obesity Due to Excess Calories With Body Mass Index (Bmi) of 45.0 to 49.9 in Adult (Formerly [facility]) Social History Tobacco Use Smoking status: Never [...] Refill: Capi (more content not included)... Normal [facility] 01-07-2025 CNPN Telephone (INTMWS) LITO GONZALEZ ([id number]) 1950 F Date Time Provider Department 01/07/25 [...] Date Reviewed: 11/10/2024 Reviewed by: Kamlesh Acosta APRN.WAREHOUSE OPERATOR - Fully Assessed Reason for Visit: Lab [...] mouth once daily. (Dr. Hubbard) [facility] - Lancets lancets Test [...] Encounter Status:Closed by LORETTA GUERIN on 01/11/25 [facility] CNEnedelia 11-10-2024 CNOV Office Visit (INTMWS ) GELY GONZALEZA ([id number]) 1950 F Date Time Provider Department 11/10/24 11:20 AM KAMLESH ACOSTA INTRuizWS During your visit today, we recorded the following information about you: Pulse Blood pressure Weight 84/minute 128/74 108.8 kg Kamlesh Acosta APRN.WAREHOUSE OPERATOR 11/10/2024 1:23 PM Signed SUBJECTIVE Lito Gonzalez [...] - 02/25/2024 Paf (Paroxysmal Atrial Fibrillation) (Formerly [facility]) - 12/07/2021 Comment: [facility] Nonrheumatic Aortic Valve Stenosis - 12/07/2021 Comment: [facility], echo 2021 [facility] Status Post Right Hip Replacement - 12/23/2019 Difficulty in Walking Involving Lower Leg Joint Acid Indigestion - 03/26/2016 Polycythemia, Secondary - 03/28/2011 Comment: This was abnormal, seen by , testing was normal. Generalized Osteoarthrosis, Involving Multiple Sites - 05/10/2008 Diabetes Mellitus (Formerly [facility]) - 10/20/2007 Hypertension Goal Bp (Blood Pressure) < 140/90 - 10/12/2005 Hyperlipidemia Associated With Type 2 Diabetes Mellitus (Formerly [facility]) - 10/12/2005 Class 3 Severe Obesity Due to Excess Calories With Body Mass Index (Bmi) of 45.0 to 49.9 in Adult (Formerly [facility]) Social History Tobacco Use Smoking status: Never [...] respiratory distress. (more content not included)... Normal [facility] CNOVon 09-29-2024 CNOV Office Visit (INTMWS ) LITO GONZALEZ ([id number]) 1950 F Date Time Provider Department 09/29/24 11:40 AM KAMLESH ACOSTA INTMWS During your visit today, we recorded the following information about you: Pulse Blood pressure Weight 96/minute 106/72 111.2 kg Kamlesh Acosta APRN.WAREHOUSE OPERATOR 09/29/2024 1:05 PM Signed SUBJECTIVE Lito Gonzalez [...] since she is post pacemaker placement. Seeing [facility] for cardiology follow up. She [...] - 02/25/2024 Paf (Paroxysmal Atrial Fibrillation) (Formerly [facility]) - 12/07/2021 Comment: [facility] Nonrheumatic Aortic Valve Stenosis - 12/07/2021 Comment: [facility], echo 2021 [facility] Status Post Right Hip Replacement - 12/23/2019 Difficulty in Walking Involving Lower Leg Joint Acid Indigestion - 03/26/2016 Polycythemia, Secondary - 03/28/2011 Comment: This was abnormal, seen by , testing was normal. Generalized Osteoarthrosis, Involving Multiple Sites - 05/10/2008 Diabetes Mellitus (Formerly [facility]) - 10/20/2007 Hypertension Goal Bp (Blood Pressure) < 140/90 - 10/12/2005 Hyperlipidemia Associated With Type 2 Diabetes Mellitus ([facility]) ([facility]) - 10/12/2005 Class 3 Severe Obesity Due to Excess Calories With Body Mass Index (Bmi) of 45.0 to 49.9 in Adult (Formerly [facility]) Social History Tobacco Use Smoking status: Never [...] distress. Leydi (more content not included)... Normal [facility] ALBUMIN/CREATININE RATIO, UR INEon 09-19-2024 Albumin DL <= 20 mg/L (U) [Mass/Vol] mg/dL Normal [facility] Comment on above: Order Comment: Speci men Type: URINE SPECIMENOrdering Facility: [facility] Address: [address] [place] [address] Performed By: #### U ACR ####[facility] LABCLIA [id number] [facility] [id number] [place] [address] [place] Albumin/Creatinine (U) [Mass ratio] <13 Normal <30 [facility] Comment on above: Order Comment: Speci men Type: URINE SPECIMENOrdering Facility: [facility] Address: [address] [place] [address] Result Comment: Adul t Male and Female Nephrotic Criteria: <30 mg/g is considered normal to mildly increased 30-300 mg/g is considered moderately increased >300 mg/g is considered severely increased KDIGO. (2013). KDIGO 2012 Clinical Practice Guideline for the Evaluation and Management of Chronic Kidney Disease. Official Journal of the International Society of Nephrology, 3(1), 1-150. Performed By: #### U ACR ####[facility] LABCLIA [id number] [place] [address] [place] Creatinine (U) [Mass/Vol] 95.1 mg/dL Normal 20.0-300.0 [facility] Comment on above: Order Comment: Speci men Type: URINE SPECIMENOrdering Facility: [facility] Address: [address] [place] [address] Performed By: #### U ACR ####[facility] LABCLIA [id number] [place] [address] [place] Comprehensive metabolic 2000 panelon 09-19-2024 Albumin [Mass/Vol] 4.3 g/dL Normal 3.9-4.9 [facility] Comment on above: Order Comment: Speci men Type: BLOOD SPECIMENOrdering Facility: [facility] Address: [address] [place] [address] Performed By: #### 2 4323-8, 84390-6 ####[facility] LABCLIA [id number] [place] [address] [place] ALP [Catalytic activity/Vol] 70 U/L Normal 34-123 [facility] Comment on above: Order Comment: Speci men Type: BLOOD SPECIMENOrdering Facility: [facility] Address: [address] [place] [address] Performed By: #### 2 4323-8, 13646-4 ####[facility] LABCLIA [id number] [place] [id number] [place] ALT [Catalytic activity/Vol] 26 U/L Normal 7-38 [facility] Comment on above: Order Comment: Speci men Type: BLOOD SPECIMENOrdering Facility: [facility] Address: [address] [place] [address] Performed By: #### 2 4323-8, 60105-2 ####[facility] LABCLIA [id number] [place] [id number] [place] Anion gap [Moles/Vol] 13 mmol/L Normal 8-15 [facility] Comment on above: Order Comment: Speci men Type: BLOOD SPECIMENOrdering Facility: [facility] Address: [address] [place] [address] Performed By: #### 2 4323-8, 46175-4 ####[facility] LABCLIA [id number] [place] [address] [place] AST [Catalytic activity/Vol] 21 U/L Normal 13-35 [facility] Comment on above: Order Comment: Speci men Type: BLOOD SPECIMENOrdering Facility: [facility] Address: [address] [place] [address] Performed By: #### 2 4323-8, 64340-3 ####[facility] LABCLIA [id number] [place] [address] [place] Bilirubin [Mass/Vol] 0.5 mg/dL Normal 0.2-1.3 [facility] Comment on above: Order Comment: Speci men Type: BLOOD SPECIMENOrdering Facility: [facility] Address: [address] [place] [address] Performed By: #### 2 4323-8, 05483-3 ####[facility] LABCLIA [id number] [place] [address] [place] Calcium [Mass/Vol] 9.7 mg/dL Normal 8.5-10.2 [facility] Comment on above: Order Comment: Speci men Type: BLOOD SPECIMENOrdering Facility: [facility] Address: [address] [place] [address] Performed By: #### 2 4323-8, 84854-7 ####[facility] LABCLIA [id number] [place] [address] [place] Chloride [Moles/Vol] 104 mmol/L Normal 98-107 [facility] Comment on above: Order Comment: Speci men Type: BLOOD SPECIMENOrdering Facility: [facility] Address: [address] [place] [address] Performed By: #### 2 4323-8, 34934-2 ####[facility] LABCLIA [id number] [place] [address] [place] CO2 [Moles/Vol] 22 mmol/L Normal 22-30 [facility] Comment on above: Order Comment: Speci men Type: BLOOD SPECIMENOrdering Facility: [facility] Address: [address] [place] [address] Performed By: #### 2 4323-8, 19578-7 ####[facility] LABIA [id number] [place] [address] [place] Creatinine [Mass/Vol] 0.84 mg/dL Normal 0.58-0.96 [facility] Comment on above: Order Comment: Speci men Type: BLOOD SPECIMENOrdering Facility: [facility] Address: [address] [place] [address] Performed By: #### 2 4323-8, 52561-1 ####[facility] LABIA [id number] [place] [address] [place] Creatinine and Glomerular filtration rate.predicted panel (S/P/Bld) 72 mL/min/1.73m??? Normal >=60 [facility] Comment on above: Order Comment: Speci men Type: BLOOD SPECIMENOrdering Facility: [facility] Address: [address] [place] [address] Result Comment: Angélica mated Glomerular Filtration Rate [...] actual GFR. Performed By: #### 2 4323-8, 61958-6 ####[facility] LABCLIA [id number] [place] [address] [place] Glucose [Mass/Vol] 190 mg/dL High 74-99 [facility] Comment on above: Order Comment: Speci men Type: BLOOD SPECIMENOrdering Facility: [facility] Address: [address] [place] [address] Result Comment: The [place] Diabetes Association (ADA) provides guidance for cutoff [...] Standards of Medical Care in Diabetes 2016, [place] Diabetes Association. Diabetes Care. 2016.39(Suppl 1). Performed By: #### 2 4323-8, 34744-9 ####[facility] LABCLIA [id number] [place] [address] [place] Potassium [Moles/Vol] 4.3 mmol/L Normal 3.7-5.1 [facility] Comment on above: Order Comment: Speci men Type: BLOOD SPECIMENOrdering Facility: [facility] Address: [address] [place] [address] Performed By: #### 2 4323-8, 74717-2 ####[facility] LABIA [id number] [place] [address] [place] Protein [Mass/Vol] 7.3 g/dL Normal 6.3-8.0 [facility] Comment on above: Order Comment: Speci men Type: BLOOD SPECIMENOrdering Facility: [facility] Address: [address] [place] [address] Performed By: #### 2 4323-8, 75035-6 ####[facility] LABCLIA [id number] [address] [address] [place] Sodium [Moles/Vol] 139 mmol/L Normal 136-144 [facility] Comment on above: Order Comment: Speci men Type: BLOOD SPECIMENOrdering Facility: [facility] Address: [address] [place] [address] Performed By: #### 2 4323-8, 41191-1 ####[facility] LABCLIA [id number] [place] [address] [place] Urea nitrogen [Mass/Vol] 23 mg/dL High 7-21 [facility] Comment on above: Order Comment: Speci men Type: BLOOD SPECIMENOrdering Facility: [facility] Address: [address] [place] [address] Performed By: #### 2 4323-8, 33124-6 ####[facility] LABIA [id number] [place] [address] [place] HbA1c (Bld)on 09-19-2024 Average glucose Estimated from glycated hemoglobin (Bld) [Mass/Vol] 209 mg/dL Normal [facility] Comment on above: Order Comment: Speci men Type: BLOOD SPECIMENOrdering Facility: [facility] Address: [address] [place] [address] Result Comment: eAG: (Estimated average glucose) is a calculated value from HgbA1c and is canvas products 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 of the average blood glucose level in the last 2-3 month period. Performed By: #### 5 5454-3 ####[facility] [id number] [place] [address] [place] HbA1c (Bld) [Mass fraction] 8.9 % High 4.3-5.6 [facility] Comment on above: Order Comment: Speci men Type: BLOOD SPECIMENOrdering Facility: [facility] Address: [address] [place] [address] Result Comment: Amer [place] Diabetes Association guidelines indicate that patients with HgbA1c in the range 5.7-6.4% are at increased risk for development of diabetes, and intervention by lifestyle modification may be beneficial. HgbA1c greater or equal to 6.5% is considered diagnostic of diabetes. Performed By: #### 5 5454-3 ####[facility] LABCLIA [id number] [place] [address] [place] Lipid 1996 panelon 5 Cholesterol [Mass/Vol] 183 mg/dL Normal <200 [facility] Comment on above: Order Comment: Thomas men Type: BLOOD SPECIMENOrdering Facility: [facility] Address: [address] [place] [address] Result Comment: <200 mg/dL, Desirable 200-239 mg/dL, Borderline high >239 mg/dL, High Performed By: #### 2 4323-8, 00570-3 ####[facility] LABCLIA [id number] [address] [place] Cholesterol in HDL [Mass/Vol] 38 mg/dL Low >39 [facility] Comment on above: Order Comment: Thomas shelton Type: BLOOD SPECIMENOrdering Facility: [facility] Address: [address] [place] [address] Result Comment: 40-5 9 mg/dL, Acceptable >59 mg/dL, High: Negative risk factor for coronary heart disease <40 mg/dL, Low: Positive risk factor for coronary heart disease Performed By: #### 2 4323-8, 03218-9 ####[facility] LABCLIA [id number] [place] [address] [place] Cholesterol in LDL [Mass/Vol] 121 mg/dL High <100 [facility] Comment on above: Order Comment: Thomas shelton Type: BLOOD SPECIMENOrdering Facility: [facility] Address: [address] [place] [address] Result Comment: <100 mg/dL, Optimal 100-129 mg/dL, Near optimal/above optimal 130-159 mg/dL, Borderline high 160-189 mg/dL, High >189 mg/dL, Very high Secondary prevention optimal LDL Cholesterol levels are recommended to be < 70 mg/dL Performed By: #### 2 4323-8, 13336-3 ####[facility] LABCLIA [id number] [place] [address] [place] Cholesterol in LDL/Cholesterol in HDL [Mass ratio] 3.18 {ratio} High <2.54 [facility] Comment on above: Order Comment: Speci men Type: BLOOD SPECIMENOrdering Facility: [facility] Address: [address] [place] [address] Result Comment: Refe ludwince: 1. National Cholesterol Education Program ATP III Guideline At-A-Glance Quick Desk Reference: National Heart, Lung, and Blood [place]. National Institutes of Health. 2001: NIH Publication No. 01-3305. 2. An International Atherosclerosis Society position paper: global recommendations for the management of dyslipidemia: executive summary, Atherosclerosis. 2014: 232(2):410-413. Performed By: #### 2 4323-8, 85193-1 ####[facility] LABCLIA [id number] [place] [address] [place] Cholesterol in VLDL [Mass/Vol] 24 mg/dL Normal <30 [facility] Comment on above: Order Comment: Fransiscoi men Type: BLOOD SPECIMENOrdering Facility: [facility] Address: [address] [place] [address] Performed By: #### 2 4323-8, 23954-4 ####[facility] LABCLIA [id number] [place] [id number] [place] Cholesterol non HDL [Mass/Vol] 145 mg/dL High <130 [facility] Comment on above: Order Comment: Fransiscoi men Type: BLOOD SPECIMENOrdering Facility: [facility] Address: [address] [place] [address] Result Comment: <130 mg/dL, Optimal 130-159 mg/dL, Near optimal/above optimal 160-189 mg/dL, Borderline high 190-219 mg/dL, High >219 mg/dL, Very high Secondary prevention optimal non HDL Cholesterol levels are recommended to be <100 mg/dL Performed By: #### 2 4323-8, 91362-7 ####[facility] LABCLIA [id number] [address] [place] Cholesterol.total/Choles terol in HDL [Mass ratio] 4.82 {ratio} Normal <5.10 [facility] Comment on above: Order Comment: Speci men Type: BLOOD SPECIMENOrdering Facility: [facility] Address: [address] [place] [address] Performed By: #### 2 4323-8, 63596-3 ####[facility] LABCLIA [id number] [address] FASTING TIME 12 hrs Normal [facility] Comment on above: Order Comment: Speci men Type: BLOOD SPECIMENOrdering Facility: [facility] Address: [address] [place] [address] Performed By: #### 2 4323-8, 56872-2 ####[facility] LABIA [id number] [address] STATES [facility] Triglyceride [Mass/Vol] 118 mg/dL Normal <150 [facility] Comment on above: Order Comment: Speci men Type: BLOOD SPECIMENOrdering Facility: [facility] Address: [address] [place] [address] Result Comment: <150 mg/dL, Normal 150-199 mg/dL, Borderline high 200-499 mg/dL, High >499 mg/dL, Very high Performed By: #### 2 4323-8, 72195-8 ####[facility] LABCLIA [id number] [place] [address] [place] Elias 08-18-2024 RYAN Telephone (INTMWS) LITO GONZALEZ ([id number]) 1950 F Date Time Provider Department 08/18/24 ABBY MCCLLELAN INTMWS During your visit today, we recorded the following information about you: Barbara Duran 08/18/2024 12:53 PM Signed Lito is calling Abby Mcclellan MD today to request Lab Orders (September appointment) Patient has been identified by name and birthdate. Duration of symptoms: N/A Person calling: self Call patient at: at home [phone] (home) [phone] (cell) Was an appointment scheduled: Yes: Date/Time: [...] Date Reviewed: 02/25/2024 Reviewed by: Kamlesh Acosta APRN.WAREHOUSE OPERATOR - Fully Assessed Reason for Visit: Lab Orders [1688] Cmt: September appointment Primary Visit Diagnosis:Type 2 diabetes mellitus with other specified complication, without long-term current use of insulin (HCC) [E11.69] Other Visit Diagnoses:Hypertensio n goal BP (blood pressure) < 140/90 [I10] Hyperlipidemia associated with type 2 diabetes mellitus (HCC) ([facility]) [E11.69, E78.5] Order(s):HEMOGLOBIN A1C [[id number]] Order #: [id number] FUTURE LIPID PANEL BASIC [SQLIPB] Order #: [id number] FUTURE COMPREHENSIVE METABOLIC PANEL [SQCMP] Order #: [id number] FUTURE ALBUMIN/CREATININE RATIO, URINE [SQUACR] Order #: [id number] FUTURE Prescriptions as of 08/20/2024 - metFORMIN [...] Status:Closed by KRISTA JI on 08/20/24 Normal [facility] 36on 06-12-2024 36 3 attempts have no been made to reach patient. She can reach us at [phone] M-F 8-5. We will continue to reach out as well. Normal [facility] Cardiology Visit Reporton Cardiology Visit Report [facility] [address] [place] [address] OFFICE VISIT Date of Service: 06/01/24 MR#: [id number] Acct: [id number] Name: LITO GONZALEZ Rep #: [id number] : 1950 Provider: BRENDA vila Age/Sex: 73/F Location: [facility] Status: Signed HPI HPI History of Present [...] 8 W FU/BARON @ 1:30 (PACER @ [facility]) Tubing Tester Required: No Is patient in pain?: No [...] but has no idea what they are [facility] Medical History Intermittent complete heart block Presence [...] disease) Mother Cancer Breast cancer Social History (Reviewed 06/01/24 @ 13:56 by Jacinda Dexter [employer], [employer]) Smoking Status: Never smoker second hand exposure: [...] Neuro Neuro: (more content not included)... Normal [facility] Pacemaker Checkon 06-01-2024 Pacemaker Check [facility] [address] [place] [address]. [address] [place] [address] Pacemaker Check Date of Service: 06/01/24 1418 MR#: [id number] Acct: [id number] Name: LITO OGNZALEZ Rep #: [id number] : 1950 From: Hilary Jackman Age/Sex: 73/F Location: [facility] Status: Signed Billing Codes PM Device Codes: 13017 PM Dev Prog Eval, Dual Assessment and Plan Assessment and Plan (1) Presence of cardiac pacemaker: Status: Chronic (2) Intermittent complete heart block: Status: Acute 06/01/24 1545 Date Hilary Gasper Cosigner Signature: Date (if applicable) CC: [facility] 36on 05-27-2024 36 Prior Auth was required and has been approved through 07/28/2025. I attempted to reach the patient to inform of authorization and offer [facility] services but no one answered and VM was is full. Will continue to make further outreaches. Thank you! [facility] 36on 05-19-2024 36 Chart reviewed, Eliquis was started @ Gloria Davis WAREHOUSE OPERATOR OV 05/07/24, samples & 30 D free card given, pt will be following up w/ Dr. Hubbard. I spoke w/pt, she has 30 Day free card, but needs RX sent in. She has appt w/ Dr. Hubbard in 2 weeks. Gloria Davis to route RX. [facility] 36 Requesting refill apixaban (Eliquis) 5 MG tablet Kenneth Gordon verified [facility] Office Visiton 05-07-2024 Follow-up visit [id number] Lito Gonzalez 1950 F Date Provider Department Center 05/07/2024 43714-JFBOAMERICA DAVIS [facility] JORGE [facility] [address] Family History Problem Relation Age of Onset Breast cancer Mother COPD Father Coronary artery disease Father Family Status - Relation Status Age at Mother Father Level of Service:66882 [place] OFFICE/OUTPATIENT ESTABLISHED MOD MDM 30 MIN Reason for Visit and Comments: 1 Month Follow Up [[id number]] [facility] Progress Noteon 05-07-2024 Progress Note [facility] [place] [address] [facility] [facility] [address] Dept: [phone] Dept Loc: [phone] Reason for Visit: 1 Month Follow Up [...] 04/06/24 -will follow with device clinic at [facility] Follow up for Dr. Hubbard 1-2 [...] 04/06/2024 Performed by Srinivasa Poon MD at [facility] OR CARDIAC ELECTROPHYSIOLOGY PROCEDURE N/A 04/07/2024 Performed by Eric Okeefe MD at [facility] Cardiac Cath/EP Lab HYSTERECTOMY TOTAL HIP ARTHROPLASTY [...] Cardiovascular: Rate a (more content not included)... [facility] Progress Note Well controlled on current doses of losartan and metoprolol succinate Normal [facility] Progress Note Hx PAF with RVR [...] 30 day free card given to patient [facility] Progress Note Noted post TAVR, PPM placed on 04/06/24 -will follow with device clinic at [facility] Progress Note S/p TAVR with 23 mm Makenzie S3 valve on 04/06/24 -stable, NYHA Class II -stop ASA, start Eliquis, see below -repeat echo to be done today -lifelong SBE prophylaxis -Cardiac Rehab-advised her to schedule an orientation [facility] US Heart TransthoracicOrdere d By: Anibal Young on 05-07-2024 AV Area by Peak Velocity 1.5 cm2 [facility] [employer] Work Phone: AV Area by VTI 1.5 cm2 [facility] Work Phone: AV Mean Gradient 15 mmHg [facility] Work Phone: AV Mean Velocity 1.8 m/s [facility] Work Phone: AV Peak Gradient 28 mmHg [facility] Work Phone: AV Peak Velocity 2.6 m/s [facility] Work Phone: AV Velocity Ratio 0.46 [facility] Work Phone: AV VTI 50.3 cm [facility] [employer] Work Phone: BENITA/BSA Peak Velocity 0.8 cm2/m2 [facility] Work Phone: BENITA/BSA VTI 0.8 cm2/m2 [facility] [employer] Work Phone: E/E' Lateral 16.83 [facility] [employer] Work Phone: E/E' Ratio (Averaged) 16.83 [facility] Work Phone: E/E' Septal 16.83 [facility] [employer] Work Phone: EF BP 67 % 55 - 100 % [facility] [employer] Work Phone: Fractional Shortening 2D 36 % 28 - 44 % [facility] [employer] Work Phone: Interpretation and review of laboratory results Abnormal [facility] [employer] Work Phone: IVC Diameter 1.3 cm [facility] [employer] Work Phone: IVSd 1.0 cm Abnormal 0.6 - 0.9 cm [facility] [employer] Work Phone: LA Diameter 4.1 cm [facility] [employer] Work Phone: LA Size Index 2.05 cm/m2 [facility] [employer] Work Phone: LA Volume 2C 35 mL 22 - 52 mL [facility] [employer] Work Phone: LA Volume 4C 46 mL 22 - 52 mL [facility] [employer] Work Phone: LA Volume A/L 45 mL [facility] [employer] Work Phone: LA Volume BP 41 mL 22 - 52 mL [facility] [employer] Work Phone: LA Volume Index 2C 18 mL/m2 16 - 34 mL/m2 [facility] [employer] Work Phone: LA Volume Index 4C 23 mL/m2 16 - 34 mL/m2 [facility] [employer] Work Phone: LA Volume Index A/L 23 mL/m2 16 - 34 mL/m2 [facility] [employer] Work Phone: LA Volume Index BP 21 ml/m2 16 - 34 ml/m2 [facility] [employer] Work Phone: LV E' Lateral Velocity 6 cm/s [facility] Work Phone: LV E' Septal Velocity 6 cm/s [facility] Work Phone: LV EDV A2C 43 mL [facility] Work Phone: LV EDV A4C 51 mL [facility] Work Phone: LV EDV BP 49 mL Abnormal 56 - 104 mL [facility] Work Phone: LV EDV Index A2C 22 mL/m2 [facility] Work Phone: LV EDV Index A4C 26 mL/m2 [facility] Work Phone: LV EDV Index BP 25 mL/m2 [facility] Work Phone: LV Ejection Fraction A2C 70 % [facility] Work Phone: LV Ejection Fraction A4C 65 % [facility] Work Phone: LV ESV A2C 13 mL [facility] Work Phone: LV ESV A4C 18 mL [facility] Work Phone: LV ESV BP 16 mL Abnormal 19 - 49 mL [facility] Work Phone: LV ESV Index A2C 7 mL/m2 [facility] Work Phone: LV ESV Index A4C 9 mL/m2 [facility] Work Phone: LV ESV Index BP 8 mL/m2 [facility] Work Phone: LV Mass 2D 107.9 g 67 - 162 g [facility] Work Phone: LV Mass 2D Index 53.9 g/m2 43 - 95 g/m2 [facility] Work Phone: LV RWT Ratio 0.56 [facility] Work Phone: LVIDd 3.6 cm Abnormal 3.9 - 5.3 cm [facility] Work Phone: LVIDd Index 1.80 cm/m2 [facility] Work Phone: LVIDs 2.3 cm [facility] Work Phone: LVIDs Index 1.15 cm/m2 [facility] Work Phone: LVOT Area 3.1 cm2 [facility] Work Phone: LVOT Cardiac Output 7.2 liter/minute [facility] Work Phone: LVOT Diameter 2.0 cm [facility] Work Phone: LVOT Mean Gradient 3 mmHg [facility] Work Phone: LVOT Peak Gradient 6 mmHg [facility] Work Phone: LVOT Peak Velocity 1.2 m/s [facility] Work Phone: LVOT Stroke Volume Index 35.8 mL/m2 [facility] Work Phone: LVOT SV 71.6 ml [facility] Work Phone: LVOT VTI 22.8 cm [facility] Work Phone: LVOT:AV VTI Index 0.45 [facility] ealth Work Phone: LVPWd 1.0 cm Abnormal 0.6 - 0.9 cm [facility] Work Phone: MV A Velocity 1.39 m/s [facility] Work Phone: MV Area by VTI 2.3 cm2 [facility] Work Phone: MV E Velocity 1.01 m/s [facility] Work Phone: MV E Wave Deceleration Time 165.2 ms [facility] Work Phone: MV E/A 0.73 [facility] Work Phone: MV Max Velocity 1.5 m/s [facility] Work Phone: MV Mean [...] Anion gap [Moles/Vol] 14 mmol/L Normal 8-15 [facility] Comment on above: Order Comment: Speci men Type: BLOOD SPECIMENOrdering Facility: [facility] Address: [address] [place] [address] Performed By: #### 2 4321-2, 3015-3 ####[facility] LABCLIA [id number] [place] [address] [place] Calcium [Mass/Vol] 10.0 mg/dL Normal 8.5-10.2 [facility] Comment on above: Order Comment: Speci men Type: BLOOD SPECIMENOrdering Facility: [facility] Address: [address] [place] [address] Performed By: #### 2 4321-2, 6-3 ####[facility] LABCLIA [id number] [place] [address] [place] Chloride [Moles/Vol] 103 mmol/L Normal 98-107 [facility] Comment on above: Order Comment: Speci men Type: BLOOD SPECIMENOrdering Facility: [facility] Address: [address] [place] [address] Performed By: #### 2 4321-2, 3016-3 ####[facility] LABCLIA [id number] [place] [id number] [place] CO2 [Moles/Vol] 24 mmol/L Normal 22-30 [facility] Comment on above: Order Comment: Speci men Type: BLOOD SPECIMENOrdering Facility: [facility] Address: [address] [place] [address] Performed By: #### 2 4321-2, 3016-3 ####[facility] LABCLIA [id number] [place] [address] [place] Creatinine [Mass/Vol] 0.87 mg/dL Normal 0.58-0.96 [facility] Comment on above: Order Comment: Speci men Type: BLOOD SPECIMENOrdering Facility: [facility] Address: [address] [place] [address] Performed By: #### 2 4321-2, 3016-3 ####[facility] LABCLIA [id number] [place] [address] [place] Creatinine and Glomerular filtration rate.predicted panel (S/P/Bld) 70 mL/min/1.73m??? Normal >=60 [facility] Comment on above: Order Comment: Speci men Type: BLOOD SPECIMENOrdering Facility: [facility] Address: [address] [place] [address] Result Comment: Angélica mated Glomerular Filtration Rate [...] By: #### 2 4321-2, 6-3 ####[facility] LABCLIA [id number] [address] [address] [place] Glucose [Mass/Vol] 213 mg/dL High 74-99 [facility] Comment on above: Order Comment: Thomas shelton Type: BLOOD SPECIMENOrdering Facility: [facility] Address: [address] [place] [address] Result Comment: The [place] Diabetes Association (ADA) provides guidance for cutoff [...] Standards of Medical Care in Diabetes 2016, [place] Diabetes Association. Diabetes Care. 2016.39(Suppl 1). Performed By: #### 2 4321-2, 3015-3 ####[facility] LABCLIA [id number] [address] [address] [place] Potassium [Moles/Vol] 4.6 mmol/L Normal 3.7-5.1 [facility] Comment on above: Order Comment: Thomas shelton Type: BLOOD SPECIMENOrdering Facility: [facility] Address: [address] [place] [address] Performed By: #### 2 4321-2, 6-3 ####[facility] LABCLIA [id number] [address] [address] [place] Sodium [Moles/Vol] 141 mmol/L Normal 136-144 [facility] Comment on above: Order Comment: Thomas shelton Type: BLOOD SPECIMENOrdering Facility: [facility] Address: [address] [place] [address] Performed By: #### 2 4321-2, 3016-3 ####[facility] LABCLIA [id number] [place] [address] [place] Urea nitrogen [Mass/Vol] 20 mg/dL Normal 7-21 [facility] Comment on above: Order Comment: Speci men Type: BLOOD SPECIMENOrdering Facility: [facility] Address: [address] [place] [address] Performed By: #### 2 4321-2, 3016-3 ####[facility] LABCLIA [id number] [place] [address] [place] CBC W Auto Differential pane l (Bld)on 05-04-2024 Basophils (Bld) [#/Vol] 0.09 10*3/uL Normal <0.11 [facility] Comment on above: Order Comment: Speci men Type: BLOOD SPECIMENOrdering Facility: [facility] Address: [address] [place] [address] Performed By: #### 5 7021-8 ####[facility] LABCLIA [id number] [place] [address] [place] Basophils/100 WBC (Bld) 1.2 % Normal [facility] Comment on above: Order Comment: Speci men Type: BLOOD SPECIMENOrdering Facility: [facility] Address: [address] [place] [address] Performed By: #### 5 7021-8 ####[facility] LABCLIA [id number] [place] [id number] [place] Differential cell count method Nom (Bld) Auto Normal [facility] Comment on above: Order Comment: Speci men Type: BLOOD SPECIMENOrdering Facility: [facility] Address: [address] [place] [address] Performed By: #### 5 7021-8 ####[facility] LABCLIA [id number] [place] [id number] [place] Eosinophils (Bld) [#/Vol] 0.37 10*3/uL Normal <0.46 [facility] Comment on above: Order Comment: Speci men Type: BLOOD SPECIMENOrdering Facility: [facility] Address: [address] [place] [address] Performed By: #### 5 7021-8 ####[facility] LABCLIA [id number] [place] [address] [place] Eosinophils/100 WBC (Bld) 4.8 % Normal [facility] Comment on above: Order Comment: Speci men Type: BLOOD SPECIMENOrdering Facility: [facility] Address: [address] [place] [address] Performed By: #### 5 7021-8 ####[facility] LABCLIA [id number] [place] [address] [place] Erythrocyte distribution width (RBC) [Ratio] 13.2 % Normal 11.5-15.0 [facility] Comment on above: Order Comment: Speci men Type: BLOOD SPECIMENOrdering Facility: [facility] Address: [address] [place] [address] Performed By: #### 5 7021-8 ####[facility] LABCLIA [id number] [place] [address] [place] Hematocrit (Bld) [Volume fraction] 43.6 % Normal 36.0-46.0 [facility] Comment on above: Order Comment: Speci men Type: BLOOD SPECIMENOrdering Facility: [facility] Address: [address] [place] [address] Performed By: #### 5 7021-8 ####[facility] LABCLIA [id number] [place] [address] [place] Hemoglobin (Bld) [Mass/Vol] 14.1 g/dL Normal 11.5-15.5 [facility] Comment on above: Order Comment: Speci men Type: BLOOD SPECIMENOrdering Facility: [facility] Address: [address] [place] [address] Performed By: #### 5 7021-8 ####[facility] LABCLIA [id number] [place] [address] [place] Immature granulocytes (Bld) [#/Vol] 10*3/uL Normal <0.10 [facility] Comment on above: Order Comment: Speci men Type: BLOOD SPECIMENOrdering Facility: [facility] Address: [address] [place] [address] Performed By: #### 5 7021-8 ####[facility] LABCLIA [id number] [place] [address] [place] Immature granulocytes/100 WBC (Bld) 0.3 % Normal [facility] Comment on above: Order Comment: Speci men Type: BLOOD SPECIMENOrdering Facility: [facility] Address: [address] [place] [address] Performed By: #### 5 7021-8 ####[facility] LABCLIA [id number] [place] [address] [place] Lymphocytes (Bld) [#/Vol] 1.67 10*3/uL Normal 1.00-4.00 [facility] Comment on above: Order Comment: Speci men Type: BLOOD SPECIMENOrdering Facility: [facility] Address: [address] [place] [address] Performed By: #### 5 7021-8 ####[facility] LABCLIA [id number] [place] [address] [place] Lymphocytes/100 WBC (Bld) 21.7 % Normal [facility] Comment on above: Order Comment: Speci men Type: BLOOD SPECIMENOrdering Facility: [facility] Address: [address] [place] [address] Performed By: #### 5 7021-8 ####[facility] LABCLIA [id number] [place] [address] [place] MCH (RBC) [Entitic mass] 31.1 pg Normal 26.0-34.0 [facility] Comment on above: Order Comment: Speci men Type: BLOOD SPECIMENOrdering Facility: [facility] Address: [address] [place] [address] Performed By: #### 5 7021-8 ####[facility] LABCLIA [id number] [place] [address] [place] MCHC (RBC) [Mass/Vol] 32.3 g/dL Normal 30.5-36.0 [facility] Comment on above: Order Comment: Speci men Type: BLOOD SPECIMENOrdering Facility: [facility] Address: [address] [place] [address] Performed By: #### 5 7021-8 ####[facility] LABCLIA [id number] [place] [address] [place] MCV (RBC) [Entitic vol] 96.0 fL Normal 80.0-100.0 [facility] Comment on above: Order Comment: Speci men Type: BLOOD SPECIMENOrdering Facility: [facility] Address: [address] [place] [address] Performed By: #### 5 7021-8 ####[facility] LABCLIA [id number] [place] [address] [place] Monocytes (Bld) [#/Vol] 1.04 10*3/uL High <0.87 [facility] Comment on above: Order Comment: Speci men Type: BLOOD SPECIMENOrdering Facility: [facility] Address: [address] [place] [address] Performed By: #### 5 7021-8 ####[facility] LABCLIA [id number] [place] [address] [place] Monocytes/100 WBC (Bld) 13.5 % Normal [facility] Comment on above: Order Comment: Speci men Type: BLOOD SPECIMENOrdering Facility: [facility] Address: [address] [place] [address] Performed By: #### 5 7021-8 ####[facility] LABCLIA [id number] [facility] [address] [address] [place] Neutrophils (Bld) [#/Vol] 4.52 10*3/uL Normal 1.45-7.50 [facility] Comment on above: Order Comment: Speci men Type: BLOOD SPECIMENOrdering Facility: [facility] Address: [address] [place] [address] Performed By: #### 5 7021-8 ####[facility] LABCLIA [id number] [facility] [address] [address] [place] Neutrophils/100 WBC (Bld) 58.5 % Normal [facility] Comment on above: Order Comment: Speci men Type: BLOOD SPECIMENOrdering Facility: [facility] Address: [address] [place] [address] Performed By: #### 5 7021-8 ####[facility] LABCLIA [id number] [place] [address] [place] Nucleated RBC (Bld) [#/Vol] 10*3/uL Normal <0.01 [facility] Comment on above: Order Comment: Speci men Type: BLOOD SPECIMENOrdering Facility: [facility] Address: [address] [place] [address] Performed By: #### 5 7021-8 ####[facility] LABCLIA [id number] [place] [address] [place] Nucleated RBC/100 WBC (Bld) [Ratio] 0.0 /100 WBC Normal [facility] Comment on above: Order Comment: Speci men Type: BLOOD SPECIMENOrdering Facility: [facility] Address: [address] [place] [address] Performed By: #### 5 7021-8 ####[facility] LABCLIA [id number] [facility] [address] [address] [place] Platelet mean volume (Bld) [Entitic vol] 11.9 fL Normal 9.0-12.7 [facility] Comment on above: Order Comment: Speci men Type: BLOOD SPECIMENOrdering Facility: [facility] Address: [address] [place] [address] Performed By: #### 5 7021-8 ####[facility] LABCLIA [id number] [place] [address] [place] Platelets (Bld) [#/Vol] 144 10*3/uL Low 150-400 [facility] Comment on above: Order Comment: Speci men Type: BLOOD SPECIMENOrdering Facility: [facility] Address: [address] [place] [address] Performed By: #### 5 7021-8 ####[facility] LABCLIA [id number] [place] [address] [place] RBC (Bld) [#/Vol] 4.54 10*6/uL Normal 3.90-5.20 [facility] Comment on above: Order Comment: Speci men Type: BLOOD SPECIMENOrdering Facility: [facility] Address: [address] [place] [address] Performed By: #### 5 7021-8 ####[facility] LABIA [id number] [place] [address] [place] WBC (Bld) [#/Vol] 7.71 10*3/uL Normal 3.70-11.00 [facility] Comment on above: Order Comment: Speci men Type: BLOOD SPECIMENOrdering Facility: [facility] Address: [address] [place] [address] Performed By: #### 5 7021-8 ####[facility] LABIA [id number] [place] [address] [place] TSH SerPl-aCncon 05-04-2024 TSH Qn 0.980 m[IU]/L Normal 0.270-4.200 [facility] Comment on above: Order Comment: Speci men Type: BLOOD SPECIMENOrdering Facility: [facility] Address: [address] [place] [id number] Performed By: #### 2 4321-2, 3016-3 ####[facility] LABCLIA [id number] [facility] [id number] [address] [place] Office Visiton 04-17-2024 Follow-up visit [id number] Lito Gonzalez 1950 F Date Provider Department Center 04/17/2024 [id number]-LMYPLULINDSEY [facility] [facility] JORGE SHMGC[facility] [address] Family History Problem Relation Age of Onset Breast cancer Mother COPD Father Coronary artery disease Father Family Status - Relation Status Age at Mother Father Level of Service:49809 [place] OFFICE/OUTPATIENT ESTABLISHED MOD MDM 30 MIN Reason for Visit and Comments: Hospital Follow-up [832] Normal [facility] Progress Noteon 04-17-2024 Progress Note [facility] [place] [address] [facility] [address] Dept: [phone] Dept Visit type: Established : 1950 Reason for Visit: No chief complaint on file. Assessment and Plan 1. S/P TAVR (transcatheter aortic valve replacement). She has a resting tachycardia today, unclear etiology. Will check labs - Basic metabolic panel - CBC auto differential [facility] 2. Essential hypertension. BP [...] - CBC auto differential - [facility] 4. Complete heart block (CMS/HCC) (HCC). S/p PPm. Has follow up with device clinic. One month follow up Subjective Lito Gonzalez is a 73 y.o. female with PMH paroxysmal atrial fibrillation ?, nonrheumatic aortic valve stenosis, DM, hypertension, RBBB and left posterior fascicular block that presented to [facility] on 04/06/2024 for TAVR. Femoral TAVR with [...] 04/06/2024 Performed by Srinivasa Poon MD at [facility] OR CARDIAC ELECTROPHYSIOLOGY PROCEDURE N/A 04/07/2024 Performed by Eric Okeefe MD at [facility] Cardiac Cath/EP Lab HYSTERECTOMY TOTAL HIP ARTHROPLASTY [...] RBBB Rev (more content not included)... Normal [facility] 36on 04-10-2024 36 Patient s/p TAVR 04/06/24 with CHB s/p PPM placement 04/07/24. BP elevated, 50 mg losartan. Spoke with patient and diarrhea has resolved, she took losartan this morning without concerns. Rescheduled 1 week follow-up to 04/17 as patient's has EGD on 04/16. Normal [facility] 36on 04-09-2024 36 Patient called b/c she started the losartan this morning and now c/o diarrhea Normal [facility] CALCIUM, IONIZEDon 4 CALCIUM IONIZED 4.60 mg/dL Normal 4.30-5.20 [facility] Comment on above: Performed By: #### L [id number] ####Prototype Model Maker: GRISEL GARZA ([id number])[facility] ([address] PH, IONIZED CALCIUM 7.39 Normal 7.31-7.[address] [facility] Comment on above: Performed By: #### L AB54 ####Prototype Model Maker: GRISEL GARZA ([id number])[facility] ([facility])[address] CBC W Auto Differential pane l (Bld)on 04-08-2024 Basophils (Bld) [#/Vol] 0.1 10*3/uL 0.0 - 0.2 10*3/uL [facility] Basophils/100 WBC (Bld) 0.8 % 0.0 - 2.0 % [facility] Eosinophils (Bld) [#/Vol] 0.4 10*3/uL 0.0 - 0.5 10*3/uL [facility] Eosinophils/100 WBC (Bld) 3.7 % 0.0 - 6.0 % [facility] Erythrocyte distribution width (RBC) [Ratio] 13.7 % 11.5 - 15.0 % [facility] Hematocrit (Bld) [Volume fraction] 41.2 % 35.0 - 47.0 % [facility] Hemoglobin (Bld) [Mass/Vol] 13.5 g/dL 11.7 - 16.0 g/dL [facility] Immature granulocytes (Bld) [#/Vol] 0.0 10*3/uL NINF - 0.1 10*3/uL [facility] [employer] Immature granulocytes/100 WBC (Bld) 0.3 % 0.0 - 2.0 % [facility] Interpretation and review of laboratory results Abnormal [facility] Lymphocytes (Bld) [#/Vol] 2.3 10*3/uL 1.0 - 4.3 10*3/uL [facility] Lymphocytes/100 WBC (Bld) 22.5 % 15.0 - 45.0 % [facility] MCH (RBC) [Entitic mass] 30.5 pg 26. 0 - 34.[address] [facility] MCHC (RBC) [Mass/Vol] 32.8 % 30.5 - 36.0 % [facility] MCV (RBC) [Entitic vol] 93.0 fL 77.0 - 99.[address] [facility] Monocytes (Bld) [#/Vol] 1.4 10*3/uL High 0.0 - 0.9 10*3/uL [facility] Monocytes/100 WBC (Bld) 13.4 % High 5.0 - 13.0 % [facility] Neutrophils (Bld) [#/Vol] 6.0 10*3/uL 1.8 - 7.5 10*3/uL [facility] Neutrophils/100 WBC (Bld) 59.3 % 38.0 - 82.0 % [facility] Nucleated RBC/100 WBC (Bld) [Ratio] 0.0 % [facility] Platelet mean volume (Bld) [Entitic vol] 11.3 fL 9.0 - 12.[address] [facility] Platelets (Bld) [#/Vol] 144 10*3/uL 140 - 440 10*3/uL [facility] RBC (Bld) [#/Vol] 4.43 10*6/uL 3.80 - 5.2 0 10*6/uL [facility] WBC (Bld) [#/Vol] 10.1 10*3/uL 3.6 - 10.7 10*3/uL [facility] CBC WITH AUTO DIFFERENTIALon 04-08-2024 Basophils (Bld) [#/Vol] 0.1 10*3/uL Normal 0.0-0.2 [facility] Comment on above: Performed By: #### L [id number] ####Prototype Model Maker: GRISEL [id number])[facility] ([facility])[address] [place] [address] Basophils/100 WBC (Bld) 0.8 % Normal 0.0-2.0 S [facility] Comment on above: Performed By: #### L [id number] ####Prototype Model Maker: GRISEL GARZA ([id number])[facility] ([facility])[address] [place] [address] [place] Eosinophils (Bld) [#/Vol] 0.4 10*3/uL Normal 0.0-0.5 [facility] Comment on above: Performed By: #### L [id number] ####Prototype Model Maker: GRISEL GARZA ([id number])[facility] ([facility])[address] [place] [address] [place] Eosinophils/100 WBC (Bld) 3.7 % Normal 0.0-6.0 [facility] Comment on above: Performed By: #### L [id number] ####Prototype Model Maker: GRISEL GARZA ([id number])[facility])[address] [place] [address] Erythrocyte distribution width (RBC) [Ratio] 13.7 % Normal 11.5-15.0 [facility] Comment on above: Performed By: #### L [id number] ####Prototype Model Maker: GRISEL GARZA ([id number])[facility])[address] [place] [address] Hematocrit (Bld) [Volume fraction] 41.2 % Normal 35.0-47.0 [facility] Comment on above: Performed By: #### L [id number] ####Prototype Model Maker: GRISEL GARZA ([id number])[address] Hemoglobin (Bld) [Mass/Vol] 13.5 g/dL Normal 11.7-16.0 [facility] Comment on above: Performed By: #### L [id number] ####Prototype Model Maker: GRISEL GARZA ([id number])[address] IMMATURE GRANS % 0.3 % Normal 0.0-2.0 [facility] Comment on above: Performed By: #### L [id number] ####Prototype Model Maker: GRISEL GARZA ([id number])[address] IMMATURE GRANS ABSOLUTE 0.0 10*3/uL Normal <0.1 [facility] Comment on above: Performed By: #### L [id number] ####Prototype Model Maker: GRISEL GARZA ([id number])[facility])[address] [place] [address] Lymphocytes (Bld) [#/Vol] 2.3 10*3/uL Normal 1.0-4.3 [facility] Comment on above: Performed By: #### L [id number] ####Prototype Model Maker: GRISEL GARZA ([id number])[facility] ([facility])[address] [place] [address] Lymphocytes/100 WBC (Bld) 22.5 % Normal 15.0-45.0 [facility] Comment on above: Performed By: #### L [id number] ####Prototype Model Maker: GRISEL GARZA ([id number])[facility] ([facility])[address] [place] [address] MCH (RBC) [Entitic mass] 30.5 pg Normal 26.0-34.0 [facility] Comment on above: Performed By: #### L [id number] ####Prototype Model Maker: GRISEL GARZA ([id number])[facility])[address] [place] [address] MCHC 32.8 % Normal 30.5-36.0 [facility] Comment on above: Performed By: #### L [id number] ####Prototype Model Maker: GRISEL GARZA ([id number])[facility] ([facility])[address] [place] [address] MCV (RBC) [Entitic vol] 93.0 fL Normal 77.0-99.0 S [facility] Comment on above: Performed By: #### L [id number] ####Prototype Model Maker: GRISEL GARZA ([id number])[facility])[address] [place] [address] Monocytes (Bld) [#/Vol] 1.4 10*3/uL High 0.0-0.9 [facility] Comment on above: Performed By: #### L [id number] ####Prototype Model Maker: GRISEL GARZA ([id number])[facility])[address] [place] [address] Monocytes/100 WBC (Bld) 13.4 % High 5.0-13.0 S [facility] Comment on above: Performed By: #### L [id number] ####Prototype Model Maker: GRISEL GARZA ([id number])[facility] [place] [address] NEUTROPHILS ABSOLUTE 6.0 10*3/uL Normal 1.8-7.5 [facility] Comment on above: Performed By: #### L [id number] ####Prototype Model Maker: GRISEL GARZA ([id number])[facility] ([facility])[address] [place] [address] Neutrophils/100 WBC (Bld) 59.3 % Normal 38.0-82.0 [facility] Comment on above: Performed By: #### L [id number] ####Prototype Model Maker: GRISEL GARZA ([id number])[facility] ([facility])[address] [place] [address] NRBC 0.0 /100 WBCs Normal 0.0-2.0 [facility] Comment on above: Performed By: #### L [id number] ####Prototype Model Maker: GRISEL GARZA ([id number])[facility] ([facility])[address] [place] [address] Platelet mean volume (Bld) [Entitic vol] 11.3 fL Normal 9.0-12.7 [facility] Comment on above: Performed By: #### L [id number] ####Prototype Model Maker: GRISEL GARZA ([id number])[facility] ([facility])[address] [place] [address] Platelets (Bld) [#/Vol] 144 10*3/uL Normal 140-440 [facility] Comment on above: Performed By: #### L [id number] ####Prototype Model Maker: GRISEL GARZA ([id number])[facility] ([facility])[address] [place] [address] RBC (Bld) [#/Vol] 4.43 10*6/uL Normal 3.80-5.20 [facility] Comment on above: Performed By: #### L [id number] ####Prototype Model Maker: GRISEL GARZA ([id number])[facility] ([facility])[address] [place] [address] [place] WBC (Bld) [#/Vol] 10.1 10*3/uL Normal 3.6-10.7 [facility] Comment on above: Performed By: #### L [id number] ####Prototype Model Maker: GRISEL GARZA ([id number])[facility] ([facility])[address] [place] [address] COMPREHENSIVE METABOLIC PANE Cedric 04-08-2024 Albumin [Mass/Vol] 3.9 g/dL Normal 3.5-5.0 [facility] Comment on above: Performed By: #### L AB17, [id number], [id number] ####Prototype Model Maker: GRISEL GARZA ([id number])[facility] ([facility])[address] [place] [address] ALP [Catalytic activity/Vol] 54 U/L Normal 38-126 [facility] Comment on above: Performed By: #### L AB17, [id number], [id number] ####Prototype Model Maker: GRISEL GARZA ([id number])[facility] ([facility])[address] [place] [address] ALT [Catalytic activity/Vol] 27 U/L Normal 0-34 [facility] Comment on above: Performed By: #### L AB17, HLI859, MDX716 ####Prototype Model Maker: GRISEL GARZA ([id number])[facility] ([facility])[address] [place] [address] Anion gap [Moles/Vol] 5 mmol/L Normal 3-13 [facility] Comment on above: Performed By: #### L AB17, EWO285, IGS594 ####Prototype Model Maker: GRISEL GARZA ([id number])[facility] ([facility])[address] [place] [address] AST [Catalytic activity/Vol] 27 U/L Normal 15-46 [facility] Comment on above: Performed By: #### L AB17, SGE802, ZCV456 ####Prototype Model Maker: GRISEL GARZA ([id number])[facility])[address] [place] [address] Bilirubin [Mass/Vol] 1.3 mg/dL Normal 0.2-1.3 [facility] Comment on above: Performed By: #### L AB17, [id number], YIE330 ####Prototype Model Maker: GRISEL GARZA ([id number])[facility])[address] [place] [address] Calcium [Mass/Vol] 9.4 mg/dL Normal 8.4-10.4 [facility] Comment on above: Performed By: #### L AB17, DQN024, MFX613 ####Prototype Model Maker: GRISEL GARZA ([id number])[facility] [place] [address] Chloride [Moles/Vol] 108 mmol/L High 98-107 [facility] Comment on above: Performed By: #### L AB17, UCA451, MWB269 ####Prototype Model Maker: GRISEL GARZA ([id number])[facility] ([facility])[address] [place] [address] CO2 [Moles/Vol] 22 mmol/L Normal 22-30 [facility] Comment on above: Performed By: #### L AB17, IIF193, MWM660 ####Prototype Model Maker: GRISEL GARZA ([id number])[facility])[address] [place] [address] Creatinine [Mass/Vol] 0.74 mg/dL Normal 0.52-1.04 [facility] Comment on above: Performed By: #### L AB17, IMH138, ZYY939 ####Prototype Model Maker: GRISEL GARZA ([id number])[facility])[address] [place] [address] GLOMERULAR FILTRATION RATE ML/MIN/1.73 SQ M.PREDICTED 84.5 mL/min/1.73m*2 Normal >60.0 [facility] Comment on above: Result Comment: Calc ulation based on the Chronic Kidney Disease Epidemiology Collaboration (CKD-EPI) equation refit without adjustment for race Performed By: #### L AB17, YLY835, ZHU821 ####Prototype Model Maker: GRISEL GARZA ([id number])[facility] ([facility])[address] [place] [address] [place] Glucose [Mass/Vol] 159 mg/dL High 70-100 [facility] Comment on above: Performed By: #### L AB17, FTH129, GVY626 ####Prototype Model Maker: GRISEL GARZA ([id number])[facility] [place] [address] Potassium [Moles/Vol] 3.9 mmol/L Normal 3.5-5.1 [facility] Comment on above: Performed By: #### L AB17, [id number], KEE806 ####Prototype Model Maker: GRISEL GARZA ([id number])[facility] ([facility])[address] [place] [address] Protein [Mass/Vol] 6.8 g/dL Normal 6.3-8.2 [facility] Comment on above: Performed By: #### L AB17, DKM094, XUJ105 ####Prototype Model Maker: GRISEL GARZA ([id number])[facility] [place] [address] Sodium [Moles/Vol] 135 mmol/L Normal 135-145 [facility] Comment on above: Performed By: #### L AB17, OHS401, PTT047 ####Prototype Model Maker: GRISEL GARZA ([id number])[facility] [place] [address] Urea nitrogen [Mass/Vol] 18 mg/dL High 7-17 [facility] Comment on above: Performed By: #### L AB17, OFB537, ZZV463 ####Prototype Model Maker: GRISEL GARZA ([id number])[facility] ([facility])[address] [place] [address] [place] Calcium.ionized [Moles/Vol]o n 04-08-2024 Calcium.ionized (Bld) [Moles/Vol] 4.60 mg/dL 4.30 - 5.20 mg/dL [facility] Interpretation and review of laboratory results Normal [facility] PH, IONIZED CALCIUM 7.39 7.31 - 7.46 [facility] Comprehensive metabolic 1998 panelon 04-08-2024 Albumin [Mass/Vol] 3.9 g/dL 3.5 - 5.0 g/dL [facility] ALP [Catalytic activity/Vol] 54 U/L 38 - 126 U/L [facility] ALT [Catalytic activity/Vol] 27 U/L 0 - 34 U/L [facility] Anion gap [Moles/Vol] 5 mmol/L 3 - 13 mmol/L [facility] AST [Catalytic activity/Vol] 27 U/L 15 - 46 U/L [facility] Bilirubin [Mass/Vol] 1.3 mg/dL 0.2 - 1 .3 mg/dL [facility] Calcium [Mass/Vol] 9.4 mg/dL 8.4 - 10. 4 mg/dL [facility] Chloride [Moles/Vol] 108 mmol/L High 98 - 10 7 mmol/L [facility] CO2 [Moles/Vol] 22 mmol/L 22 - 30 mmol/L [facility] Creatinine [Mass/Vol] 0.74 mg/dL 0.52 - 1.04 mg/dL [facility] GFR/1.73 sq M.predicted (S/P/Bld) [Vol rate/Area] 84.5 mL/min - PINF [facility] Comment on above: Calculation based on the Chronic Kidney Disease Epidemiology Collaboration (CKD-EPI) equation refit without adjustment for race Glucose [Mass/Vol] 159 mg/dL High 70 - 100 mg/dL [facility] Interpretation and review of laboratory results Abnormal [facility] Potassium [Moles/Vol] 3.9 mmol/L 3.5 - 5.1 mmol/L [facility] Protein [Mass/Vol] 6.8 g/dL 6.3 - 8.2 g/dL [facility] Sodium [Moles/Vol] 135 mmol/L 135 - 145 mmol/L [facility] Urea nitrogen [Mass/Vol] 18 mg/dL High 7 - 17 mg/d L [facility] ECG 12-LEADon 04-08-2024 ECG 12-LEAD IMPRESSION: Sinus tachycardia RBBB and LPFB Nonspecific ST and T wave changes Electronically Signed On 04-08-2024 08:58:15 EDT by Alen Hernández Normal [facility] ECG 12-LEAD IMPRESSION: Sinus tachycardia RBBB and LPFB Nonspecific ST and T wave changes Electronically Signed On 04-08-2024 08:58:33 EDT by Alen Hidalgo [facility] ECG 12-LEAD IMPRESSION: Sinus tachycardia RBBB and LPFB Nonspecific ST and T wave changes Electronically Signed On 04-08-2024 08:57:47 EDT by Alen Hidalgo [facility] ECG 12-LEAD IMPRESSION: Sinus tachycardia RBBB and LPFB Electronically Signed On 04-08-2024 08:56:00 EDT by Alen Hidalgo [facility] Electrophysiology studyon [facility] Laboratory - Chemistry and C hemistry - challengeon 04-08-2024 Glucose [Mass/Vol] 253 mg/dL High 70 - 100 mg/dL [facility] Glucose [Mass/Vol] 210 mg/dL High 70 - 100 mg/dL [facility] Magnesium [Mass/Vol] 1.8 mg/dL 1.6 - 2 .3 mg/dL [facility] MAGNESIUMon 04-08-2024 Magnesium [Mass/Vol] 1.8 mg/dL Normal 1.6-2.3 [facility] Comment on above: Performed By: #### L AB17, [id number], [id number] ####Prototype Model Maker: GRISEL GARZA ([id number])[facility] ([facility])[address] [place] [address] No Panel Informationon 04-08 Interpretation and review of laboratory results Abnormal [facility] Performed by: [facility], [address] [place] [address] CLIA ID: [id number] [facility] P [place] 26 degrees [facility] CA Interval 194 ms [facility] QRS [place] [address] [facility] QRSD Interval 146 ms [facility] Healt h QT Interval [address] [facility] QTC Interval [address] [facility] T Wave [place] -[address] [facility] Sinus tachycardia RBBB and LPFB Nonspecific ST and T wave changes Electronically Signed On 04-08-2024 08:58:33 EDT by Alen Zurita MD - 04/08/2024 IMPRESSION: Sinus tachycardia RBBB and LPFB Nonspecific ST and T wave changes Electronically Signed On 04-08-2024 08:58:33 EDT by [facility]en [facility] P [place] 52 degrees [facility] CA Interval 173 ms [facility] QRS [place] 95 degrees [facility] QRSD Interval 138 ms [facility] QT Interval 347 ms [facility] QTC Interval 478 ms [facility] T Wave [place] -70 degrees [facility] Sinus tachycardia RBBB and LPFB Nonspecific ST and T wave changes Electronically Signed On 04-08-2024 08:58:15 EDT by Alen Zurita MD - 04/08/2024 IMPRESSION: Sinus tachycardia RBBB and LPFB Nonspecific ST and T wave changes Electronically Signed On 04-08-2024 08:58:15 EDT by Alen Hernández [facility] Sinus tachycardia RBBB and LPFB Nonspecific ST and T wave changes Electronically Signed On 04-08-2024 08:57:47 EDT by Alen Zurita MD - 04/08/2024 IMPRESSION: Sinus tachycardia RBBB and LPFB Nonspecific ST and T wave changes Electronically Signed On 04-08-2024 08:57:47 EDT by Alen Hernández [facility] [employer] P [place] 40 degrees [facility] CA Interval 204 ms [facility] QRS [place] 95 degrees [facility] QRSD Interval 141 ms [facility]alt [facility] QT Interval 362 ms [facility] QTC Interval [address] [facility] T Wave [place] -[address] [facility] Sinus tachycardia RBBB and LPFB Electronically Signed On 04-08-2024 08:56:00 EDT by Alen Zurita MD - 04/08/2024 IMPRESSION: Sinus tachycardia RBBB and LPFB Electronically Signed On 04-08-2024 08:56:00 EDT by Alen Hernández [facility] Interpretation and review of laboratory results Abnormal [facility] Performed by: [facility], [address] [place] [address] CLIA ID: [id number] [facility] Interpretation and review of laboratory results Normal [facility] No Panel InformationOrdered By: Alen Hernández on 04-08-2024 P [place] 42 degrees [facility] [employer] Work Phone: [place] Interval 155 ms [employer] Work Phone: QRS [place] 91 degrees [employer] Communication Work Phone: QRSD Interval 143 ms [facility] Work Phone: QT Interval 356 ms [employer] Work Phone: [phone] QTC Interval 474 ms [employer] Work Phone: T Wave [place] -64 degrees [employer] Work Phone: [employer] Work Phone: PHOSPHORUSon 04-08-2024 Phosphate [Mass/Vol] 3.4 mg/dL Normal 2.5-4.5 [facility] [email or web address].at [facility] Comment on above: Performed By: #### L [id number], [id number], [id number] ####Prototype Model Maker: GRISEL GARZA ([id number])[address] Phosphate [Moles/Vol]on 03-29 Phosphate [Mass/Vol] 3.4 mg/dL 2.5 - 4 .5 mg/dL [facility] Progress Noteon 04-08-2024 Progress Note Nutrition rescreen completed. Chart reviewed. Patient to be monitored and followed by the diet health physics technician. .BOBBY Dugan Normal [facility] [employer] [facility] Progress Note - Attestation signed [...] later today, d/w patient meds and f/u [facility] Heart & Vascular [facility] CCU PROGRESS NOTE Patient Name: Lito Gonzalez : 1950 Subjective: Lito Gonzalez is a 73 y.o. female with PMH paroxysmal atrial fibrillation, nonrheumatic aortic valve stenosis, DM, hypertension, RBBB and left posterior fascicular block that presented to [facility] on 04/06/2024 for TAVR procedure. Pre TAVR [...] HGBA1C, T (more content not included)... [facility] Vital signson 04-08-2024 Heart rate 101 /min bpm [employer] Heart rate 113 /min bpm [employer] Heart rate 104 /min bpm [facility] [employer] Vital signsOrdered By: Alen Hernández on 04-08-2024 Heart rate 107 /min bpm [employer] Work Phone: XR CHEST 2 VIEWSon 4 XR CHEST 2 VIEWS Patient Name: LITO GONZALEZ : [address] [facility]#: [id number] Exam Date/Time: 04/08/2024 09:54 Procedure: XR CHEST [...] Electronically Signed Date/Time: 04/08/2024 12:12 PM EDT [facility] XR Chest 2 Viewson Recent pacemaker placement with intact leads. No procedural complication identified. Report Dictated on Electronically Signed By: Xiang Miranda MD Electronically Signed Date/Time: 04/08/2024 12:12 PM EDT [facility] Patient Name: LITO GONZALEZ : 1950 [...] spine and shoulders. No acute osseous findings. [facility] Xiang Miranda M D - 04/08/2024 [...] Electronically Signed Date/Time: 04/08/2024 12:12 PM EDT [facility] Radiology Study observation (narrative) [facility] XR Chest 2 ViewsOrdered By: Xiang Miranda on 04-08-[address] [facility] Work Phone: 36on 04-07-2024 36 scheduled Normal [facility] 36 Can I have an order for a 1 mo follow up echo please? Normal [facility] BASIC METABOLIC PANELon 03-29 Anion gap [Moles/Vol] 4 mmol/L Normal 3-13 [facility] Comment on above: Performed By: #### L [id number] #### Prototype Model Maker: GRISEL GARZA ([id number]) [facility] ([facility]) [address] [place] [address] Calcium [Mass/Vol] 8.9 mg/dL Normal 8.4-10.4 [facility] Comment on above: Performed By: #### L AB15 #### Prototype Model Maker: GRISEL GARZA ([id number]) [facility] [address] [place] [address] [place] Chloride [Moles/Vol] 109 mmol/L High 98-107 [facility] Comment on above: Performed By: #### L AB15 #### Prototype Model Maker: GRISEL GARZA ([id number]) [facility] [address] [place] [address] [place] CO2 [Moles/Vol] 23 mmol/L Normal 22-30 [facility] Comment on above: Performed By: #### L AB15 #### Prototype Model Maker: GRISEL GARZA ([id number]) [facility] ([facility]) [address] [place] [address] [place] Creatinine [Mass/Vol] 0.79 mg/dL Normal 0.52-1.04 [facility] Comment on above: Performed By: #### L AB15 #### Prototype Model Maker: GRISEL GARZA ([id number]) [facility] [address] [place] [address] GLOMERULAR FILTRATION RATE ML/MIN/1.73 SQ M.PREDICTED 78.1 mL/min/1.73m*2 Normal >60.0 [facility] Comment on above: Result Comment: Calc ulation based on the Chronic Kidney Disease Epidemiology Collaboration (CKD-EPI) equation refit without adjustment for race Performed By: #### L AB15 #### Prototype Model Maker: GRISEL GARZA ([id number]) [facility] ([facility]) [address] [place] [address] Glucose [Mass/Vol] 270 mg/dL High 70-100 [facility] Comment on above: Performed By: #### L AB15 #### Prototype Model Maker: GRISEL GARZA ([id number]) [facility] ([facility]) [address] [place] [address] Potassium [Moles/Vol] 4.1 mmol/L Normal 3.5-5.1 [facility] Comment on above: Performed By: #### L AB15 #### Prototype Model Maker: GRISEL GARZA ([id number]) [facility] [address] [place] [address] Sodium [Moles/Vol] 136 mmol/L Normal 135-145 [facility] Comment on above: Performed By: #### L AB15 #### Prototype Model Maker: GRISEL GARZA ([id number]) [facility] ([facility]) [address] [place] [address] Urea nitrogen [Mass/Vol] 20 mg/dL High 7-17 [facility] Comment on above: Performed By: #### L AB15 #### Prototype Model Maker: GRISEL GARZA ([id number]) [facility] ([facility]) [address] [place] [address] Basic metabolic 1998 panelon 04-07-2024 Anion gap [Moles/Vol] 4 mmol/L 3 - 13 mmol/L [facility] Calcium [Mass/Vol] 8.9 mg/dL 8.4 - 10. 4 mg/dL [facility] Chloride [Moles/Vol] 109 mmol/L High 98 - 10 7 mmol/L [facility] CO2 [Moles/Vol] 23 mmol/L 22 - 30 mmol/L [facility] [employer] Creatinine [Mass/Vol] 0.79 mg/dL 0.52 - 1.04 mg/dL [facility] [employer] GFR/1.73 sq M.predicted (S/P/Bld) [Vol rate/Area] 78.1 mL/min - PINF [facility] [employer] Comment on above: Calculation based on the Chronic Kidney Disease Epidemiology Collaboration (CKD-EPI) equation refit without adjustment for race Glucose [Mass/Vol] 270 mg/dL High 70 - 100 mg/dL [facility] [employer] Interpretation and review of laboratory results Abnormal [facility] [employer] Potassium [Moles/Vol] 4.1 mmol/L 3.5 - 5.1 mmol/L [facility] [employer] Sodium [Moles/Vol] 136 mmol/L 135 - 145 mmol/L [facility] [employer] Urea nitrogen [Mass/Vol] 20 mg/dL High 7 - 17 mg/d L [facility] [employer] [facility] [employer] [facility] CARECOORDon 04-07-2024 [facility] Initial Assessment Date: 04/07/2024 Patient Name: Lito Gonzalez : 1950 Patient Information Source of Information: Patient Cognition/Language: WFL - Within Functional Limits 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 Spoke with patient and at bedside, introduced self and role. Patient from home with , is using a walker for ambulation otherwise is independent, has PCP and prescription coverage, will have a ride home and denies discharge needs. Breonna Jimenez RN Normal [facility] CBC (HEMOGRAM)on 04-07-2024 Erythrocyte distribution width (RBC) [Ratio] 13.5 % Normal 11.5-15.0 [facility] Comment on above: Performed By: #### L [id number] #### Prototype Model Maker: GRISEL GARZA ([id number]) [address] Hematocrit (Bld) [Volume fraction] 40.5 % Normal 35.0-47.0 [facility] Comment on above: Performed By: #### L [id number] #### Prototype Model Maker: GRISEL [id number]) [address] Hemoglobin (Bld) [Mass/Vol] 13.1 g/dL Normal 11.7-16.0 [facility] Comment on above: Performed By: #### L [id number] #### Prototype Model Maker: GRISEL [id number]) [address] MCH (RBC) [Entitic mass] 30.1 pg Normal 26.0-34.0 [facility] Comment on above: Performed By: #### L [id number] #### Prototype Model Maker: GRISEL [id number]) [address] [address] [place] MCHC 32.3 % Normal 30.5-36.0 [facility] Comment on above: Performed By: #### L [id number] #### Prototype Model Maker: GRISEL GARZA ([id number]) [facility] ([facility]) [address] [place] [address] MCV (RBC) [Entitic vol] 93.1 fL Normal 77.0-99.0 S [facility] Comment on above: Performed By: #### L [id number] #### Prototype Model Maker: GRISEL GARZA ([id number]) [facility] ([facility]) [address] [place] [address] Platelet mean volume (Bld) [Entitic vol] 11.5 fL Normal 9.0-12.7 [facility] Comment on above: Performed By: #### L [id number] #### Prototype Model Maker: GRISEL GARZA ([id number]) [facility] ([facility]) [address] [place] [address] Platelets (Bld) [#/Vol] 168 10*3/uL Normal 140-440 [facility] Comment on above: Performed By: #### L [id number] #### Prototype Model Maker: GRISEL GARZA ([id number]) [facility] ([facility]) [address] [place] [address] RBC (Bld) [#/Vol] 4.35 10*6/uL Normal 3.80-5.20 [facility] Comment on above: Performed By: #### L [id number] #### Prototype Model Maker: GRISEL GARZA ([id number]) [facility] ([facility]) [address] [place] [address] WBC (Bld) [#/Vol] 9.3 10*3/uL Normal 3.6-10.7 [facility] Comment on above: Performed By: #### L [id number] #### Prototype Model Maker: GRISEL GARZA ([id number]) [facility] ([facility]) [address] [place] [address] CBC panel Auto (Bld)on 04-07 Erythrocyte distribution width (RBC) [Ratio] 13.5 % 11.5 - 15.0 % [facility] Hematocrit (Bld) [Volume fraction] 40.5 % 35.0 - 47.0 % [facility] Hemoglobin (Bld) [Mass/Vol] 13.1 g/dL 11.7 - 16.0 g/dL [facility] Interpretation and review of laboratory results Normal [facility] MCH (RBC) [Entitic mass] 30.1 pg 26. 0 - 34.[address] [facility] MCHC (RBC) [Mass/Vol] 32.3 % 30.5 - 36.0 % [facility] MCV (RBC) [Entitic vol] 93.1 fL 77.0 - 99.[address] [facility] Platelet mean volume (Bld) [Entitic vol] 11.5 fL 9.0 - 12.[address] [facility] Platelets (Bld) [#/Vol] 168 10*3/uL 140 - 440 10*3/uL [facility] RBC (Bld) [#/Vol] 4.35 10*6/uL 3.80 - 5.2 0 10*6/uL [facility] WBC (Bld) [#/Vol] 9.3 10*3/uL 3.6 - 10.7 10*3/uL [facility] Consulton 04-07-[address] [facility] Heart & Vascular [place] [facility] /Electrophysiology Consult Note Reason for Consult/Chief Complaint: Complete heart block Referring provider: Ayah Established lapel stitcher: Ayah History of Present Illness: Lito Gonzalez [...] MD (F (more content not included)... Normal [facility] Consult [facility] Heart & Vascular [place] [facility] Cardiology /Electrophysiology Consult Note Reason for Consult/Chief Complaint: AV Block s/p TAVR Established lapel stitcher: Ayah History of Present Illness: Lito Gonzalez [...] dilated ascending (more content not included)... Normal [facility] ECG 12-LEADon 04-07-2024 ECG 12-LEAD IMPRESSION: Sinus arrhythmia RBBB and LPFB Nonspecific ST and T wave changes Electronically Signed On 04-07-2024 10:38:52 EDT by Charles Dunaway Normal [facility] ECG 12-LEAD IMPRESSION: Sinus rhythm RBBB and LPFB Nonspecific ST and T wave changes Electronically Signed On 04-07-2024 10:38:42 EDT by Charles Dunaway [facility] IDNon 04-07-2024 IDN Problem: Cardiovascular - Adult Goal: Maintains optimal cardiac output and hemodynamic stability Outcome: Progressing Goal: Absence of cardiac dysrhythmias or at baseline Outcome: Progressing Problem: Hematologic - Adult Goal: Maintains hematologic stability Outcome: Progressing Normal [facility] Laboratory - Chemistry and C hemistry - challengeon 04-07-2024 Glucose [Mass/Vol] 162 mg/dL High 70 - 100 mg/dL [facility] Glucose [Mass/Vol] 222 mg/dL High 70 - 100 mg/dL [facility] [facility] Glucose [Mass/Vol] 208 mg/dL High 70 - 100 mg/dL [facility] No Panel Informationon 04-07 Interpretation and review of laboratory results Abnormal [facility] [facility] Performed by: [facility], [address] [place] [address] CLIA ID: [id number] [facility] Interpretation and review of laboratory results Abnormal [facility] [facility] Performed by: [facility], [address] [place] [id number] CLIA ID: [id number] [facility] Sinus arrhythmia RBBB and LPFB Nonspecific ST and T wave changes Electronically Signed On 04-07-2024 10:38:52 EDT by Charles Burgess MD - 04/07/2024 IMPRESSION: Sinus arrhythmia RBBB and LPFB Nonspecific ST and T wave changes Electronically Signed On 04-07-2024 10:38:52 EDT by Charles Dunaway [facility] [facility] P [place] 35 degrees [facility] CA Interval 174 ms [facility] QRS [place] 94 degrees [facility] QRSD Interval 143 ms [facility] QT Interval 375 ms [facility] [facility] QTC Interval 483 ms [facility] [facility] T Wave [place] -67 degrees [facility] [facility] Sinus rhythm RBBB and LPFB Nonspecific ST and T wave changes Electronically Signed On 04-07-2024 10:38:42 EDT by Charles Burgess MD - 04/07/2024 IMPRESSION: Sinus rhythm RBBB and LPFB Nonspecific ST and T wave changes Electronically Signed On 04-07-2024 10:38:42 EDT by Charles Dunaway [facility] Interpretation and review of laboratory results Abnormal [facility] [facility] Performed by: [facility], [address] [place] [address] CLIA ID: [id number] [facility] [facility] [facility] No Panel InformationOrdered By: Charles Dunaway on 04-07-2024 P [place] 51 degrees [facility] Work Phone: CA Interval 194 ms [facility] Work Phone: QRS [place] 114 degrees [facility] Work Phone: QRSD Interval 144 ms [facility] Work Phone: QT Interval 406 ms [facility] Work Phone: QTC Interval 461 ms [facility] Work Phone: T Wave [place] 208 degrees [facility] Work Phone: [facility] Work Phone: Nursing Noteon 04-07-2024 [...] lab for Pacemaker placement. Consent signed. Normal [facility] Progress Noteon 04-07-2024 Progress Note Spoke with Mr. Jagdish kaiser regarding patient status. Questions answered. He will be here around 1-2 p today. He is aware that she will likely be going for pacemaker here shortly. Normal [facility] US Heart TransthoracicOrdere d By: Smith Nobles on 04-07-2024 Ascending Aorta 3.5 cm [facility] Work Phone: Ascending Aorta Index 1.75 cm/m2 [facility] Work Phone: AV Area by Peak Velocity 1.3 cm2 [facility] Work Phone: AV Area by VTI 1.5 cm2 [facility] Work Phone: AV Mean Gradient 12 mmHg [facility] alth Work Phone: AV Mean Velocity 1.6 m/s [facility] Work Phone: AV Peak Gradient 21 mmHg [facility] Work Phone: [phone] AV Peak Velocity 2.3 m/s [facility] Work Phone: AV Velocity Ratio 0.52 [facility] Work Phone: [phone] AV VTI 37.1 cm [facility] Work Phone: [phone] BENITA/BSA Peak Velocity 0.7 cm2/m2 [facility] Work Phone: [phone] BENITA/BSA VTI 0.8 cm2/m2 [facility] Work Phone: [phone] EF BP 66 % 55 - 100 % [facility] Work Phone: Fractional Shortening 2D 30 % 28 - 44 % [facility] [employer] Work Phone: Interpretation and review of laboratory results Abnormal [facility] [employer] Work Phone: [phone] IVC Diameter 1.[address] [facility] Work Phone: IVSd 1.4 cm Abnormal 0.6 - 0.9 cm [facility] [employer] Work Phone: [phone] LA Volume 2C 44 mL 22 - 52 mL [facility] [facility] Work Phone: [phone] LA Volume 4C 63 mL Abnormal 22 - 52 mL [facility] Work Phone: [phone] LA Volume A/L 62 mL [place] Work Phone: LA Volume BP 59 mL Abnormal 22 - 52 mL [facility] [facility] Work Phone: LA Volume Index 2C 22 mL/m2 16 - 34 mL/m2 [facility] Work Phone: LA Volume Index 4C 32 mL/m2 16 - 34 mL/m2 [facility] Work Phone: [phone] LA Volume Index A/L 31 mL/m2 16 - 34 mL/m2 [facility] [facility] Work Phone: LA Volume Index BP 30 ml/m2 16 - 34 ml/m2 [facility] [facility] Work Phone: [phone] LV E' Lateral Velocity 8 cm/s [place] Work Phone: LV EDV A2C 56 mL [facility] Work Phone: LV EDV A4C 62 mL [facility] Work Phone: LV EDV BP 63 mL 56 - 104 mL [facility] Work Phone: LV EDV Index A2C 28 mL/m2 [facility] Work Phone: LV EDV Index A4C 31 mL/m2 [facility] Work Phone: LV EDV Index BP 32 mL/m2 [facility] Work Phone: LV Ejection Fraction A2C 68 % [facility] Work Phone: LV Ejection Fraction A4C 69 % [facility] Work Phone: LV ESV A2C 18 mL [facility] Work Phone: LV ESV A4C 20 mL [facility] Work Phone: LV ESV BP 21 mL 19 - 49 mL [facility] Work Phone: LV ESV Index A2C 9 mL/m2 [facility] Work Phone: LV ESV Index A4C 10 mL/m2 [facility] Work Phone: LV ESV Index BP 11 mL/m2 [facility] Work Phone: LV Mass 2D 175.8 g Abnormal 67 - 162 g [facility] [employer] Work Phone: LV Mass 2D Index 87.9 g/m2 43 - 95 g/m2 [facility] [facility] Work Phone: LV RWT Ratio 0.55 [facility] [facility] Work Phone: LVIDd 4.0 cm 3.9 - 5.3 cm [facility] [facility] Work Phone: LVIDd Index 2.00 cm/m2 [facility] [facility] Work Phone: LVIDs 2.8 cm [facility] [facility] Work Phone: LVIDs Index 1.40 cm/m2 [facility] [facility] Work Phone: LVOT Area 2.5 cm2 [facility] [employer] Work Phone: LVOT Cardiac Output 6.8 liter/minute [facility] Work Phone: LVOT Diameter 1.8 cm [facility] [employer] Work Phone: LVOT Mean Gradient 3 mmHg [facility] [facility] Work Phone: LVOT Peak Gradient 5 mmHg [facility] [facility] Work Phone: LVOT Peak Velocity 1.2 m/s [facility] [facility] Work Phone: [phone] LVOT Stroke Volume Index 27.2 mL/m2 [facility] [employer] Work Phone: LVOT SV 54.4 ml [facility] [facility] Work Phone: LVOT VTI 21.4 cm [facility] [employer] Work Phone: LVOT:AV VTI Index 0.58 [facility] ealt Work Phone: LVPWd 1.1 cm Abnormal 0.6 - 0.9 cm [facility] [employer] Work Phone: Pulm Vein A Duration 108.5 ms [facility] [employer] Work Phone: [phone] Pulm Vein A Velocity 0.4 m/s [facility] [facility] Work Phone: [phone] Pulm Vein Peak D Velocity 0.5 m/s [facility] [facility] Work Phone: [phone] Pulm Vein Peak S Velocity 0.4 m/s [facility] Work Phone: Pulm Vein S/D 0.8 [facility] h Work Phone: RA Area 4C 41.8 mL [facility] Work Phone: RA Area 4C 40.8 mL [facility] [employer] Work Phone: [phone] RV Basal Dimension 2.5 cm [facility] [facility] Work Phone: RV Free Wall Peak S' 11 cm/s [facility] [facility] Work Phone: RV Longitudinal Dimension 4.8 cm [facility] [facility] Work Phone: [phone] RV Mid Dimension 2.[address] [facility] Work Phone: TAPSE 2.3 cm 1.7 cm [employer] Work Phone: [employer] Work Phone: US Heart Transthoracicon Aortic Valve: [...] on 04-07-2024 Heart rate 77 /min bpm [employer] Work Phone: Vital signson 04-07-2024 Heart rate 99 /min bpm [employer] ABO and Rh group Confirm Nom (Bld)on 04-06-2024 ABO group Nom (Bld) O [facility] D Ag [facility]l [facility]RBC) [facility] BASIC METABOLIC PANELon Anion gap [Moles/Vol] 4 mmol/L Normal 3-13 [facility] Comment on above: Performed By: #### L AB15 #### Prototype Model Maker: GRISEL GARZA ([id number]) [facility]) [address] [place] [address] Calcium [Mass/Vol] 7.7 mg/dL Low 8.4-10.4 [facility] Comment on above: Performed By: #### L AB15 #### Prototype Model Maker: GRISEL GARZA ([id number]) [facility] ([facility]) [address] [place] [address] [place] Chloride [Moles/Vol] 112 mmol/L High 98-107 [facility] Comment on above: Performed By: #### L AB15 #### Prototype Model Maker: GRISEL GARZA ([id number]) [facility] ([facility]) [address] [place] [address] [place] CO2 [Moles/Vol] 21 mmol/L Low 22-30 [facility] Comment on above: Performed By: #### L AB15 #### Prototype Model Maker: GRISEL GARZA ([id number]) [facility]) [address] [place] [address] Creatinine [Mass/Vol] 0.55 mg/dL Normal 0.52-1.04 [facility] Comment on above: Performed By: #### L AB15 #### Prototype Model Maker: GRISEL GARZA ([id number]) [facility] ([facility]) [address] [place] [address] [place] GLOMERULAR FILTRATION RATE ML/MIN/1.73 SQ M.PREDICTED >90.0 Normal >60.0 [facility] Comment on above: Result Comment: Calc ulation based on the Chronic Kidney Disease Epidemiology Collaboration (CKD-EPI) equation refit without adjustment for race Performed By: #### L AB15 #### Prototype Model Maker: GRISEL GARZA ([id number]) [facility] [address] [place] [address] Glucose [Mass/Vol] 158 mg/dL High 70-100 [facility] Comment on above: Performed By: #### L AB15 #### Prototype Model Maker: GRISEL GARZA ([id number]) [facility] ([facility]) [address] [place] [address] Potassium [Moles/Vol] 3.4 mmol/L Low 3.5-5.1 [facility] Comment on above: Performed By: #### L AB15 #### Prototype Model Maker: GRISEL GARZA ([id number]) [facility] ([facility]) [address] [place] [address] Sodium [Moles/Vol] 137 mmol/L Normal 135-145 [facility] Comment on above: Performed By: #### L AB15 #### Prototype Model Maker: GRISEL GARZA ([id number]) [facility] ([facility]) [address] [place] [address] Urea nitrogen [Mass/Vol] 17 mg/dL Normal 7-17 [facility] Comment on above: Performed By: #### L AB15 #### Prototype Model Maker: GRISEL GARZA ([id number]) [facility]) [address] [place] [address] BLOOD TYPE AND SCREEN GELon 04-06-2024 ABO GROUPING O Normal [facility] Comment on above: Performed By: #### L AB276 ####Prototype Model Maker: GRISEL GARZA ([id number])[facility] ([facility])[address] [place] [address] RH TYPE IN BLOOD Negative Normal [facility] Comment on above: Performed By: #### L AB276 ####Prototype Model Maker: GRISEL GARAZ ([id number])[facility] ([facility])[address] [place] [address] Basic metabolic 1998 panelon 04-06-2024 Anion gap [Moles/Vol] 4 mmol/L 3 - 13 mmol/L [facility] Calcium [Mass/Vol] 7.7 mg/dL Low 8.4 - 10. 4 mg/dL [facility] Chloride [Moles/Vol] 112 mmol/L High 98 - 10 7 mmol/L [facility] CO2 [Moles/Vol] 21 mmol/L Low 22 - 30 mmol/L [facility] Creatinine [Mass/Vol] 0.55 mg/dL 0.52 - 1.04 mg/dL [facility] GFR/1.73 sq M.predicted (S/P/Bld) [Vol rate/Area] - PINF [facility] Comment on above: Calculation based on the Chronic Kidney Disease Epidemiology Collaboration (CKD-EPI) equation refit without adjustment for race Glucose [Mass/Vol] 158 mg/dL High 70 - 100 mg/dL [facility] Interpretation and review of laboratory results Abnormal [facility] Potassium [Moles/Vol] 3.4 mmol/L Low 3.5 - 5.1 mmol/L [facility] Sodium [Moles/Vol] 137 mmol/L 135 - 145 mmol/L [facility] Urea nitrogen [Mass/Vol] 17 mg/dL 7 - 17 mg/d L [facility] Blood type and Crossmatch pa bill (Bld)on 04-06-2024 ABO group Nom (Bld) O [facility] Blood group antibody screen GEL Ql Negative [facility] D Ag Ql (RBC) Negative [facility] CBC (HEMOGRAM)on 04-06-2024 Erythrocyte distribution width (RBC) [Ratio] 13.5 % Normal 11.5-15.0 [facility] Comment on above: Performed By: #### L AB294 ####Prototype Model Maker: GRISEL GARZA ([id number])[address] Hematocrit (Bld) [Volume fraction] 36.1 % Normal 35.0-47.0 [facility] Comment on above: Performed By: #### L AB294 ####Prototype Model Maker: GRISEL GARZA ([id number])[address] Hemoglobin (Bld) [Mass/Vol] 11.7 g/dL Normal 11.7-16.0 [facility] Comment on above: Performed By: #### L AB294 ####Prototype Model Maker: RGISEL GARZA ([id number])[facility] ([facility])[address] [place] [address] MCH (RBC) [Entitic mass] 30.4 pg Normal 26.0-34.0 [facility] Comment on above: Performed By: #### L AB294 ####Prototype Model Maker: GRISEL GARZA ([id number])[facility])[address] [place] [address] MCHC 32.4 % Normal 30.5-36.0 [facility] Comment on above: Performed By: #### L AB294 ####Prototype Model Maker: GRISEL GARZA ([id number])[facility])[address] [place] [address] MCV (RBC) [Entitic vol] 93.8 fL Normal 77.0-99.0 S [facility] Comment on above: Performed By: #### L AB294 ####Prototype Model Maker: GRISEL GARZA ([id number])[facility] ([facility])[address] [place] [address] Platelet mean volume (Bld) [Entitic vol] 11.6 fL Normal 9.0-12.7 [facility] Comment on above: Performed By: #### L AB294 ####Prototype Model Maker: GRISEL GARZA ([id number])[facility])[address] [place] [address] Platelets (Bld) [#/Vol] 156 10*3/uL Normal 140-440 [facility] Comment on above: Performed By: #### L AB294 ####Prototype Model Maker: GRISEL GARZA ([id number])[facility])[address] [place] [address] RBC (Bld) [#/Vol] 3.85 10*6/uL Normal 3.80-5.20 [facility] Comment on above: Performed By: #### L AB294 ####Prototype Model Maker: GRISEL GARZA ([id number])[facility])[address] [place] [address] WBC (Bld) [#/Vol] 7.2 10*3/uL Normal 3.6-10.[address] [facility] Comment on above: Performed By: #### L AB294 ####Prototype Model Maker: GRISEL GARZA ([id number])[facility] ([facility])[address] [place] [address] CBC panel Auto (Bld)on 04-06 Erythrocyte distribution width (RBC) [Ratio] 13.5 % 11.5 - 15.0 % [facility] Hematocrit (Bld) [Volume fraction] 36.1 % 35.0 - 47.0 % [facility] Hemoglobin (Bld) [Mass/Vol] 11.7 g/dL 11.7 - 16.0 g/dL [facility] Interpretation and review of laboratory results Normal [facility] MCH (RBC) [Entitic mass] 30.4 pg 26. 0 - 34.[address] [facility] MCHC (RBC) [Mass/Vol] 32.4 % 30.5 - 36.0 % [facility] MCV (RBC) [Entitic vol] 93.8 fL 77.0 - 99.[address] [facility] Platelet mean volume (Bld) [Entitic vol] 11.6 fL 9.0 - 12.[address] [facility] Platelets (Bld) [#/Vol] 156 10*3/uL 140 - 440 10*3/uL [facility] RBC (Bld) [#/Vol] 3.85 10*6/uL 3.80 - 5.2 0 10*6/uL [facility] WBC (Bld) [#/Vol] 7.2 10*3/uL 3.6 - 10.7 10*3/uL [facility] Cardiac catheterization stud yon 04-06-2024 Successful TAVR [...] Via the right femoral vein, a 6 Australian sheath was placed and temporary pacing wire was placed into the RV apex with appropriate capture, in addition sterile tubing was attached and given the anesthesia for central access. Via right radial artery, a 6-Australian sheath was placed and the pigtail catheter was placed into the aortic annulus with confirmation the implant angle. Via the right femoral artery, a 6-Australian sheath was placed. The patient was then heparinized. Next, two Perclose devices were used using the pre-close strategy. A Super Stiff wire was then placed through the second Perclose into the descending aorta. Then, a 14-Australian Makenzie E-sheath was introduced over the wire [...] care of your patient while hospitalized at [facility]. I will continue to follow along while hospitalized. Please do not hesitate to call with any questions. [facility] Cardiac catheterization stud yOrdered By: Srinivasa Poon on 04-06-2024 [facility] Work Phone: IDNon 04-06-2024 IDN The patient [...] include continue to reinforce and monitor. Normal [facility] - Chemistry and C hemistry - challengeon 04-06-2024 Glucose [Mass/Vol] 239 mg/dL High 70 - 100 mg/dL [facility] Glucose [Mass/Vol] 166 mg/dL High 70 - 100 mg/dL [facility] Glucose [Mass/Vol] 174 mg/dL High 70 - 100 mg/dL [facility] Glucose [Mass/Vol] 253 mg/dL High 70 - 100 mg/dL [facility] [facility] No Panel Informationon 04-06 Interpretation and review of laboratory results Abnormal [facility] Performed by: [facility], [address] [place] [address] CLIA ID: [id number] [facility] Interpretation and review of laboratory results Abnormal [facility] Performed by: [facility], [address] [place] [address] CLIA ID: [id number] [facility] Interpretation and review of laboratory results Abnormal [facility] Performed by: [facility], [address] [place] [address] CLIA ID: [id number] [facility] Interpretation and review of laboratory results Abnormal [facility] Performed by: [facility], [address] [place] [address] CLIA ID: [id number] [facility] Nursing Noteon 04-06-[address] Hernandez made aware of MBS 253 new orders received. Normal [facility] Op Noteon 04-06-2024 Op Note [...] Via the right femoral vein, a 6 Australian sheath was placed and temporary pacing wire was placed into the RV apex with appropriate capture, in addition sterile tubing was attached and given the anesthesia for central access. Via right radial artery, a 6-Australian sheath was placed and the pigtail catheter was placed into the aortic annulus with confirmation the implant angle. Via the right femoral artery, a 6-Australian sheath was placed. The patient was then heparinized. Next, two Perclose devices were used using the pre-close strategy. A Super Stiff wire was then placed through the second Perclose into the descending aorta. Then, a 14-Australian Makenzie E-sheath was introduced over the wire [...] minimal blood loss. No immediate complications. Normal [facility] US Heart TransthoracicOrdere d By: Alejandro Walls on 04-06-2024 AV Area (Pre-TAVR) 0.5 cm2 [facility] Work Phone: AV Area by Peak Velocity 1.7 cm2 [facility] Work Phone: AV Area by VTI 1.7 cm2 [facility] th Work Phone: AV Mean Gradient 4 [facility] Work Phone: AV Mean Gradient (Pre-TAVR) 46 mmHg [facility] Work Phone: AV Mean Velocity 0.9 m/s [facility] Work Phone: AV Peak Gradient 7 mmHg [facility] Work Phone: AV Peak Gradient (Pre-TAVR) 69 mmHg [facility] Work Phone: AV Peak Velocity 1.3 m/s [facility] Work Phone: AV Peak Velocity (Pre-TAVR) 4.1 m/s [facility] Work Phone: AV Velocity Ratio 0.62 [facility] Work Phone: AV VTI 24.9 cm [facility] Work Phone: BENITA/BSA Peak Velocity 0.8 cm2/m2 [facility] Work Phone: BENITA/BSA VTI 0.8 cm2/m2 [facility] Work Phone: EF BP 69 % 55 - 100 % [facility] Work Phone: Fractional Shortening 2D 20 % 28 - 44 % [facility] Work Phone: Interpretation and review of laboratory results Abnormal [facility] Work Phone: IVSd 1.4 cm Abnormal 0.6 - 0.9 cm [facility] Work Phone: LV EDV A2C 49 mL [facility] Work Phone: LV EDV A4C 83 mL [facility] Work Phone: LV EDV BP 69 mL 56 - 104 mL [facility] Work Phone: LV EDV Index A2C 24 mL/m2 [facility] Work Phone: LV EDV Index A4C 41 mL/m2 [facility] Work Phone: LV EDV Index BP 34 mL/m2 [facility] Work Phone: LV Ejection Fraction A2C 63 % [facility] Work Phone: LV Ejection Fraction A4C 74 % [facility] [employer] Work Phone: LV ESV A2C 18 mL [facility] Work Phone: LV ESV A4C 22 mL [facility] Work Phone: LV ESV BP 22 mL 19 - 49 mL [facility] Work Phone: LV ESV Index A2C 9 mL/m2 [facility] Work Phone: LV ESV Index A4C 11 mL/m2 [facility] Work Phone: LV ESV Index BP 11 mL/m2 [facility] Work Phone: LV Mass 2D 209.0 g Abnormal 67 - 162 g [facility] Work Phone: LV Mass 2D Index 103.4 g/m2 Abnormal 43 - 95 g/m2 [facility] Work Phone: LV RWT Ratio 0.70 [facility] Work Phone: LVIDd 4.0 cm 3.9 - 5.3 cm [facility] [facility] Work Phone: LVIDd Index 1.98 cm/m2 [facility] [facility] Work Phone: LVIDs 3.2 cm [facility] [facility] Work Phone: LVIDs Index 1.58 cm/m2 [facility] [facility] Work Phone: LVOT Area 2.8 cm2 [facility] Work Phone: LVOT Cardiac Output 2.8 liter/minute [facility] Work Phone: LVOT Diameter 1.9 cm [facility] Work Phone: LVOT Mean Gradient 1 mmHg [facility] Work Phone: LVOT Peak Gradient 2 mmHg [facility] Work Phone: LVOT Peak Velocity 0.8 m/s [facility] Work Phone: LVOT Stroke Volume Index 20.5 mL/m2 [facility] Work Phone: LVOT SV 41.4 ml [facility] [facility] Work Phone: LVOT VTI 14.6 cm [facility] [facility] Work Phone: LVOT:AV VTI Index 0.59 [facility] ealt Work Phone: LVPWd 1.4 cm Abnormal 0.6 - 0.9 cm [facility] [facility] Work Phone: [facility] Work Phone: Heart Transthoracicon Left Ventricle: Left [...] Echo Additional Conclusions Technically difficult study. CV [facility] 36on 04-01-2024 36 Patient called me back and requested me to fax lab orders to [facility]. [phone] I faxed CBC and CMP orders only.Confirmed She is going today. Normal [facility] 36 Spoke with patient and she will have CMP and CBC completed at [facility] today. Jamie Godinez to fax lab orders Normal [facility] CBC W Auto Differential pane l (Bld)on 04-01-2024 Basophils (Bld) [#/Vol] 0.10 10*3/uL Normal <0.11 [facility] Comment on above: Order Comment: Speci men Type: BLOOD SPECIMENOrdering Facility: [facility] Address: [address] [place] [address] Performed By: #### 5 7021-8 ####[facility] LABCLIA [id number] [address] [address] [place] Basophils/100 WBC (Bld) 1.2 % Normal [facility] Comment on above: Order Comment: Speci men Type: BLOOD SPECIMENOrdering Facility: [facility] Address: [address] [place] [address] Performed By: #### 5 7021-8 ####[facility] LABCLIA [id number] [place] [address] [place] Differential cell count method Nom (Bld) Auto Normal [facility] Comment on above: Order Comment: Speci men Type: BLOOD SPECIMENOrdering Facility: [facility] Address: [address] [place] [address] Performed By: #### 5 7021-8 ####[facility] LABCLIA [id number] [place] [address] [place] Eosinophils (Bld) [#/Vol] 0.44 10*3/uL Normal <0.46 [facility] Comment on above: Order Comment: Speci men Type: BLOOD SPECIMENOrdering Facility: [facility] Address: [address] [place] [address] Performed By: #### 5 7021-8 ####[facility] LABCLIA [id number] [facility] [place] [id number] [place] Eosinophils/100 WBC (Bld) 5.1 % Normal [facility] Comment on above: Order Comment: Speci men Type: BLOOD SPECIMENOrdering Facility: [facility] Address: [address] [place] [address] Performed By: #### 5 7021-8 ####[facility] LABCLIA [id number] [facility] [place] [id number] [place] Erythrocyte distribution width (RBC) [Ratio] 13.4 % Normal 11.5-15.0 [facility] Comment on above: Order Comment: Speci men Type: BLOOD SPECIMENOrdering Facility: [facility] Address: [address] [place] [address] Performed By: #### 5 7021-8 ####[facility] LABCLIA [id number] [facility] [place] [address] [place] Hematocrit (Bld) [Volume fraction] 45.5 % Normal 36.0-46.0 [facility] Comment on above: Order Comment: Speci men Type: BLOOD SPECIMENOrdering Facility: [facility] Address: [address] [place] [address] Performed By: #### 5 7021-8 ####[facility] LABCLIA [id number] [place] [address] [place] Hemoglobin (Bld) [Mass/Vol] 14.6 g/dL Normal 11.5-15.5 [facility] Comment on above: Order Comment: Speci men Type: BLOOD SPECIMENOrdering Facility: [facility] Address: [address] [place] [address] Performed By: #### 5 7021-8 ####[facility] LABCLIA [id number] [facility] [place] [address] [place] Immature granulocytes (Bld) [#/Vol] 0.03 10*3/uL Normal <0.10 [facility] Comment on above: Order Comment: Speci men Type: BLOOD SPECIMENOrdering Facility: [facility] Address: [address] [place] [address] Performed By: #### 5 7021-8 ####[facility] LABCLIA [id number] [place] [address] [place] Immature granulocytes/100 WBC (Bld) 0.4 % Normal [facility] Comment on above: Order Comment: Speci men Type: BLOOD SPECIMENOrdering Facility: [facility] Address: [address] [place] [address] Performed By: #### 5 7021-8 ####[facility] LABCLIA [id number] [place] [address] [place] Lymphocytes (Bld) [#/Vol] 2.30 10*3/uL Normal 1.00-4.00 [facility] Comment on above: Order Comment: Speci men Type: BLOOD SPECIMENOrdering Facility: [facility] Address: [address] [place] [address] Performed By: #### 5 7021-8 ####[facility] LABCLIA [id number] [place] [address] [place] Lymphocytes/100 WBC (Bld) 26.8 % Normal [facility] Comment on above: Order Comment: Speci men Type: BLOOD SPECIMENOrdering Facility: [facility] Address: [address] [place] [address] Performed By: #### 5 7021-8 ####[facility] LABCLIA [id number] [place] [address] [place] MCH (RBC) [Entitic mass] 31.1 pg Normal 26.0-34.0 [facility] Comment on above: Order Comment: Speci men Type: BLOOD SPECIMENOrdering Facility: [facility] Address: [address] [place] [address] Performed By: #### 5 7021-8 ####[facility] LABCLIA [id number] [place] [address] [place] MCHC (RBC) [Mass/Vol] 32.1 g/dL Normal 30.5-36.0 [facility] Comment on above: Order Comment: Speci men Type: BLOOD SPECIMENOrdering Facility: [facility] Address: [address] [place] [address] Performed By: #### 5 7021-8 ####[facility] LABCLIA [id number] [place] [address] [place] MCV (RBC) [Entitic vol] 97.0 fL Normal 80.0-100.0 [facility] Comment on above: Order Comment: Speci men Type: BLOOD SPECIMENOrdering Facility: [facility] Address: [address] [place] [address] Performed By: #### 5 7021-8 ####[facility] LABCLIA [id number] [facility] [address] [address] [place] Monocytes (Bld) [#/Vol] 0.88 10*3/uL High <0.87 [facility] Comment on above: Order Comment: Speci men Type: BLOOD SPECIMENOrdering Facility: [facility] Address: [address] [place] [address] Performed By: #### 5 7021-8 ####[facility] LABCLIA [id number] [facility] [address] [address] [place] Monocytes/100 WBC (Bld) 10.3 % Normal [facility] Comment on above: Order Comment: Speci men Type: BLOOD SPECIMENOrdering Facility: [facility] Address: [address] [place] [address] Performed By: #### 5 7021-8 ####[facility] LABCLIA [id number] [address] [address] [place] Neutrophils (Bld) [#/Vol] 4.82 10*3/uL Normal 1.45-7.50 [facility] Comment on above: Order Comment: Speci men Type: BLOOD SPECIMENOrdering Facility: [facility] Address: [address] [place] [address] Performed By: #### 5 7021-8 ####[facility] LABCLIA [id number] [place] [id number] [place] Neutrophils/100 WBC (Bld) 56.2 % Normal [facility] Comment on above: Order Comment: Speci men Type: BLOOD SPECIMENOrdering Facility: [facility] Address: [address] [place] [address] Performed By: #### 5 7021-8 ####[facility] LABCLIA [id number] [place] [address] [place] Nucleated RBC (Bld) [#/Vol] 10*3/uL Normal <0.01 [facility] Comment on above: Order Comment: Speci men Type: BLOOD SPECIMENOrdering Facility: [facility] Address: [address] [place] [address] Performed By: #### 5 7021-8 ####[facility] LABCLIA [id number] [place] [address] [place] Nucleated RBC/100 WBC (Bld) [Ratio] 0.0 /100 WBC Normal [facility] Comment on above: Order Comment: Speci men Type: BLOOD SPECIMENOrdering Facility: [facility] Address: [address] [place] [address] Performed By: #### 5 7021-8 ####[facility] LABCLIA [id number] [place] [address] [place] Platelet mean volume (Bld) [Entitic vol] 12.0 fL Normal 9.0-12.7 [facility] Comment on above: Order Comment: Speci men Type: BLOOD SPECIMENOrdering Facility: [facility] Address: [address] [place] [address] Performed By: #### 5 7021-8 ####[facility] LABCLIA [id number] [place] [address] [place] Platelets (Bld) [#/Vol] 199 10*3/uL Normal 150-400 [facility] Comment on above: Order Comment: Speci men Type: BLOOD SPECIMENOrdering Facility: [facility] Address: [address] [place] [address] Performed By: #### 5 7021-8 ####[facility] LABCLIA [id number] [place] [address] [place] RBC (Bld) [#/Vol] 4.69 10*6/uL Normal 3.90-5.20 [facility] Comment on above: Order Comment: Speci men Type: BLOOD SPECIMENOrdering Facility: [facility] Address: [address] [place] [address] Performed By: #### 5 7021-8 ####[facility] LABCLIA [id number] [place] [address] [place] WBC (Bld) [#/Vol] 8.57 10*3/uL Normal 3.70-11.00 [facility] Comment on above: Order Comment: Speci men Type: BLOOD SPECIMENOrdering Facility: [facility] Address: [address] [place] [address] Performed By: #### 5 7021-8 ####[facility] LABCLIA [id number] [place] [address] [place] Comprehensive metabolic 2000 panelon 04-01-2024 Albumin [Mass/Vol] 4.2 g/dL Normal 3.9-4.9 [facility] Comment on above: Order Comment: Speci men Type: BLOOD SPECIMENOrdering Facility: [facility] Address: [address] [place] [address] Performed By: #### 2 4323-8 ####[facility] LABCLIA [id number] [place] [address] [place] ALP [Catalytic activity/Vol] 68 U/L Normal 34-123 [facility] Comment on above: Order Comment: Speci men Type: BLOOD SPECIMENOrdering Facility: [facility] Address: [address] [place] [address] Performed By: #### 2 4323-8 ####[facility] LABCLIA [id number] [place] [address] [place] ALT [Catalytic activity/Vol] 26 U/L Normal 7-38 [facility] Comment on above: Order Comment: Speci men Type: BLOOD SPECIMENOrdering Facility: [facility] Address: [address] [place] [address] Performed By: #### 2 4323-8 ####[facility] LABCLIA [id number] [facility] [address] [address] [place] Anion gap [Moles/Vol] 13 mmol/L Normal 8-15 [facility] Comment on above: Order Comment: Speci men Type: BLOOD SPECIMENOrdering Facility: [facility] Address: [address] [place] [address] Performed By: #### 2 4323-8 ####[facility] LABCLIA [id number] [facility] [place] [id number] [place] AST [Catalytic activity/Vol] 21 U/L Normal 13-35 [facility] Comment on above: Order Comment: Speci men Type: BLOOD SPECIMENOrdering Facility: [facility] Address: [address] [place] [address] Performed By: #### 2 4323-8 ####[facility] LABCLIA [id number] [facility] [place] [address] [place] Bilirubin [Mass/Vol] 0.8 mg/dL Normal 0.2-1.3 [facility] Comment on above: Order Comment: Speci men Type: BLOOD SPECIMENOrdering Facility: [facility] Address: [address] [place] [address] Performed By: #### 2 4323-8 ####[facility] LABCLIA [id number] [facility] [place] [id number] [place] Calcium [Mass/Vol] 9.5 mg/dL Normal 8.5-10.2 [facility] Comment on above: Order Comment: Speci men Type: BLOOD SPECIMENOrdering Facility: [facility] Address: [address] [place] [address] Performed By: #### 2 4323-8 ####[facility] LABCLIA [id number] [facility] [place] [id number] [place] Chloride [Moles/Vol] 105 mmol/L Normal 98-107 [facility] Comment on above: Order Comment: Speci men Type: BLOOD SPECIMENOrdering Facility: [facility] Address: [address] [place] [address] Performed By: #### 2 4323-8 ####[facility] LABCLIA [id number] [place] [address] [place] CO2 [Moles/Vol] 21 mmol/L Low 22-30 [facility] Comment on above: Order Comment: Speci men Type: BLOOD SPECIMENOrdering Facility: [facility] Address: [address] [place] [address] Performed By: #### 2 4323-8 ####[facility] LABCLIA [id number] [address] [place] Creatinine [Mass/Vol] 0.69 mg/dL Normal 0.58-0.96 [facility] Comment on above: Order Comment: Speci men Type: BLOOD SPECIMENOrdering Facility: [facility] Address: [address] [place] [address] Performed By: #### 2 4323-8 ####[facility] LABCLIA [id number] [address] Creatinine and Glomerular filtration rate.predicted panel (S/P/Bld) 91 mL/min/1.73m??? Normal >=60 [facility] Comment on above: Order Comment: Speci men Type: BLOOD SPECIMENOrdering Facility: [facility] Address: [address] [place] [address] Result Comment: Angélica mated Glomerular Filtration Rate [...] Performed By: #### 2 4323-8 ####[facility] LABCLIA [id number] [place] [id number] [place] Glucose [Mass/Vol] 215 mg/dL High 74-99 [facility] Comment on above: Order Comment: Thomas shelton Type: BLOOD SPECIMENOrdering Facility: [facility] Address: [address] [place], [place] [address] Result Comment: The [place] Diabetes Association (ADA) provides guidance for cutoff [...] Standards of Medical Care in Diabetes 2016, [place] Diabetes Association. Diabetes Care. 2016.39(Suppl 1). Performed By: #### 2 4323-8 ####[facility] LABCLIA [id number] [place] [address] [place] Potassium [Moles/Vol] 4.6 mmol/L Normal 3.7-5.1 [facility] Comment on above: Order Comment: Thomas shelton Type: BLOOD SPECIMENOrdering Facility: [facility] Address: [address] [place] [address] Performed By: #### 2 4323-8 ####[facility] LABCLIA [id number] [address] [address] [place] Protein [Mass/Vol] 7.0 g/dL Normal 6.3-8.0 [facility] Comment on above: Order Comment: Thomas shelton Type: BLOOD SPECIMENOrdering Facility: [facility] Address: [address] [place], [place] [address] Performed By: #### 2 4323-8 ####[facility] LABCLIA [id number] [place] [id number] [place] Sodium [Moles/Vol] 139 mmol/L Normal 136-144 [facility] Comment on above: Order Comment: Speci men Type: BLOOD SPECIMENOrdering Facility: [facility] Address: [address] [place] [address] Performed By: #### 2 4323-8 ####[facility] LABCLIA [id number] [place] [address] [place] Urea nitrogen [Mass/Vol] 21 mg/dL Normal 7-21 [facility] Comment on above: Order Comment: Speci men Type: BLOOD SPECIMENOrdering Facility: [facility] Address: [address] [place] [address] Performed By: #### 2 4323-8 ####[facility] LABCLIA [id number] [place] [address] [place] TYPE + SCREENon 04-01-2024 ABO O Normal [facility] Comment on above: Order Comment: Speci men Type: BLOOD SPECIMENOrdering Facility: [facility] Address: [address] [place] [address] Performed By: #### T SCR ####[facility] MAIN BLOOD BANKCLIA [id number] [place] [address] [place] HISTORICAL AB SCR STATUS Negative Normal [facility] Comment on above: Order Comment: Speci men Type: BLOOD SPECIMENOrdering Facility: [facility] Address: [address] [place] [address] Performed By: #### T SCR ####CC MAIN BLOOD BANKCLIA [id number] [place] [id number] [place] Rh Nom (Bld) Negative Normal [facility] Comment on above: Order Comment: Speci men Type: BLOOD SPECIMENOrdering Facility: [facility] Address: [address] [place] [address] Performed By: #### T SCR ####CC MAIN BLOOD BANKCLIA [id number] [place] [address] [place] TYPE AND SCREEN EXPIRATION 04/04/2024 23:59 Normal [facility] Comment on above: Order Comment: Speci men Type: BLOOD SPECIMENOrdering Facility: [facility] Address: [address] [place] [address] Performed By: #### T SCR ####CC MAIN BLOOD BANKCLIA [id number] [address] [address] [facility] 3603-17-2024 36 Requested on Snapboard Normal [facility] 36on 03-16-2024 36 Approved through [employer]. Scanned under Media Auth# [id number] 04/06-04/07/24 Calendars updated. Just waiting for case request to add to Snapboard. Normal [facility] 36 Pended TAVR case request, Gloria Davis WOUND CARE TECHNICIAN to sign. Normal [facility] CT ANGIOGRAM TAVRon 03-11-20 CT ANGIOGRAM TAVR Patient Name: LITO GONZALEZ : 1950 Exam Date/Time: 03/10/2024 14:01 Procedure: CT ANGIOGRAM TAVR Ordering Provider: DAVIS MEGGAN Reason For Exam: AORTIC VALVE STENOSIS [facility] Valve [facility] Cardiovascular CTA CLINICAL INDICATION: 73-year-old female with severe aortic stenosis, being evaluated for transcatheter aortic valve implantation. Computed tomography of the heart, thoracoabdominal aorta, and iliofemoral system was performed using a [employer] Aquilion One 320 detector scanner. Images were [...] Electronically Signed Date/Time: 03/11/2024 12:28 PM EDT [facility] Office Visiton 03-10-2024 Follow-up visit [id number] Lito Gonzalez 1950 F Date Provider Department Center 03/10/2024 [id number] AQUINO [facility] JOR[facility] [address] Family History Problem Relation Age of Onset Breast cancer Mother COPD Father Coronary artery disease Father Family Status - Relation Status Age at Mother Father Level of Service:38442 [place] OFFICE/OUTPATIENT NEW HIGH MDM 60 MINUTES Reason for Visit and Comments: Other [0] - Aortic Stenosis [facility] Follow-up visit [id number] Lito Gonzalez 1950 Date Provider Department Center 03/10/2024 [id number] HORTA [facility] [address] Family History Problem Relation Age of Onset Breast cancer Mother COPD Father Coronary artery disease Father Family Status - Relation Status Age at Mother Father Level of Service:82230 [place] OFFICE/OUTPATIENT NEW HIGH MDM 60 MINUTES Reason for Visit and Comments: Cardiac Valve Problem [1334] New Patient [542] - Heart Valve Clinic [facility] Follow-up visit [id number] Lito Gonzalez 1950 Date Provider Department [place] 03/10/2024 [id number] SRINIVASA [facility] J[facility] 95 Ar Family History Problem Relation Age of Onset Breast cancer Mother COPD Father Coronary artery disease Father Family Status - Relation Status Age at Mother Father Level of Service:32461 [place] OFFICE/OUTPATIENT NEW HIGH MDM 60 MINUTES Reason for Visit and Comments: Cardiac Valve Problem [1334] New Patient [542] - Heart Valve Clinic [facility] PATINSon 03-10-2024 [facility] GERIATRICS DISCHARGE INSTRUCTIONS: Please talk with your [...] or missing doses (which can be dangerous). [facility] Progress Noteon 03-10-2024 Progress Note Likely multifactoria l Encouraged patient to change positions slowly to avoid dizziness and falls Encouraged continued follow-up with PCP (primary care provider) and cardiology regarding her dizziness - patient and agree/confirm understanding monitor [facility] Progress Note Chronic Patient had had c/o memory loss for AWV (Annual Wellness Visit) from 02/25/24 but declined a geriatrics referral at that time I strongly encouraged patient/ to have patient schedule appt with us at [facility] for baseline memory testing I suspect either MCI (Mild Cognitive Impairment) or mild dementia based on my conversation with patient in our visit today [facility] Progress Note Reviewed med list with patient/ Advised patient speak with PCP (primary care provider) regarding alternative medication for diabetes other than glimepiride given risk of falls, hypoglycemia -patient/ amenable to this suggestion Recommended patient begin to use pillbox. [facility] Progress Note Chronic Never had sleep apnea [...] voice understanding and agreement with this plan. [facility] Progress Note I agree with cardiology plan as discussed with lapel stitcher on same date regarding next steps for further workup/treatment of cardiac disease which likely includes TAVR. On this date of evaluation, the patient has sufficient understanding of procedure(s) to consent to the procedure(s) being discussed and has adequate social support(s). [facility] Progress Note [facility] [address] [facility] [address] Dept: [phone] Dept Loc: [phone] Today's Visit Location: TAVR (transcather aortic valve replacement) Clinic [facility] [address] [place] [address] Visit type: [facility] Assessment at TAVR (transcather aortic valve replacement) Clinic Visit Date: 03/10/2024 Reason for Visit: Other (Aortic Stenosis) Assessment and Plan 1. Severe aortic stenosis Assessment & Plan: I agree with cardiology plan as discussed with lapel stitcher on same date regarding next steps for [...] with us at [facility] for baseline memory testing I suspect either [...] (more content not included)... Normal [facility] Progress Note [facility] Medical Group: Cardiothoracic Surgery Multidisciplinary Heart Valve Clinic Date: 03/10/24 Patient:Lito Gonzalez 1950 73 y.o. female [id number] Subjective: HPI: Lito Gonzalez 73 y.o. referred [...] (more content not included)... Normal [facility] Progress Note [facility] [address] [facility] [address] Dept: [phone] Dept Visit type: New : 1950 Reason for Visit: Cardiac Valve Problem and New Patient (Heart Valve Clinic) Assessment and Plan 1. Nonrheumatic aortic valve stenosis 2. PAF (paroxysmal atrial fibrillation) ([facility]) - ECG 12 lead - CLINIC PERFORMED [...] is no (more content not included)... Normal [facility] Progress Noteon 03-06-2024 Progress Note Lito [...] none Cardiac Catheterization 01/20/2024 Transthoracic Echocardiogram 01/08/2024 [facility] 36on 03-04-2024 36 Spoke with patient and scheduled CTA [address] 03/10 1 pm. Reviewed fasting 4 hours prior and oral hydration protocol. Verbalized understanding. [facility] 36on 03-03-2024 36 Labs reviewed and stable. Orders signed. [facility] 36 Reviewed patient's chart, next step In TAVR work-up will be CTA. Pended order, routed to Gloria Davis APRN to sign if appropriate. Will call patient to schedule once signed. BMP completed 01/14/24. Will also pended pre-TAVR labs for patient to complete with CTA. CXR completed 01/14/24. [facility] 36on 02-26-2024 36 Map mailed [facility] CNOVon 02-25-2024 CNOV Office Visit (INTMWS ) LITO GONZALEZ ([id number]) 1950 F Date Time Provider Department 02/25/24 [...] (Internal Medicine) Outside specialists seen: cardiology with [facility] Medical/Family history review Reviewed and updated [...] female. Recent work up with cardiology, sees [facility]. Had an ECHO and a heart [...] Take 1 tablet by mouth once daily. 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 Generalized Osteoarthrosis, Involving Multiple Sites - 05/10/2008 Diabetes Mellitus (Hcc) - 10/20/2007 Hypertension Goal Bp (Blood Pressure) < 140/90 - 10/12/2005 Hyperlipidemia Associated With Type 2 Diabetes Mellitus (Hcc) ([facility]) - 10/12/2005 Class 3 Severe Obesity Due to Excess Calories With Body Mass Index (B (more content not included)... Normal [facility] 36on 02-19-2024 36 Made chart and isabella d [employer] packet w/o map. If I get one by next week I will mail it otherwise I'll call patient w/ good directions. Normal [facility] CBC W Auto Differential pane l (Bld)on 02-19-2024 Basophils (Bld) [#/Vol] 0.14 10*3/uL High <0.11 [facility] Comment on above: Order Comment: Specjosiah men Type: BLOOD SPECIMENOrdering Facility: [facility] Address: [address] [place] [address] Performed By: #### 5 7021-8 ####[facility] LABCLIA [id number] [place] [address] [place] Basophils/100 WBC (Bld) 1.6 % [facility] Comment on above: Order Comment: Thomas shelton Type: BLOOD SPECIMENOrdering Facility: [facility] Address: [address] [place] [address] Performed By: #### 5 7021-8 ####[facility] LABCLIA [id number] [place] [address] [place] Differential cell count method Nom (Bld) Auto Normal [facility] Comment on above: Order Comment: Speci men Type: BLOOD SPECIMENOrdering Facility: [facility] Address: [address] [place] [address] Performed By: #### 5 7021-8 ####[facility] LABCLIA [id number] [place] [address] [place] Eosinophils (Bld) [#/Vol] 0.66 10*3/uL High <0.46 [facility] Comment on above: Order Comment: Speci men Type: BLOOD SPECIMENOrdering Facility: [facility] Address: [address] [place] [address] Performed By: #### 5 7021-8 ####[facility] LABCLIA [id number] [place] [address] [place] Eosinophils/100 WBC (Bld) 7.4 % Normal [facility] Comment on above: Order Comment: Speci men Type: BLOOD SPECIMENOrdering Facility: [facility] Address: [address] [place] [address] Performed By: #### 5 7021-8 ####[facility] LABCLIA [id number] [place] [address] [place] Erythrocyte distribution width (RBC) [Ratio] 13.4 % Normal 11.5-15.0 [facility] Comment on above: Order Comment: Speci men Type: BLOOD SPECIMENOrdering Facility: [facility] Address: [address] [place] [address] Performed By: #### 5 7021-8 ####[facility] LABCLIA [id number] [place] [address] [place] Hematocrit (Bld) [Volume fraction] 45.3 % Normal 36.0-46.0 [facility] Comment on above: Order Comment: Speci men Type: BLOOD SPECIMENOrdering Facility: [facility] Address: [address] [place] [address] Performed By: #### 5 7021-8 ####[facility] LABCLIA [id number] [place] [id number] [place] Hemoglobin (Bld) [Mass/Vol] 14.5 g/dL Normal 11.5-15.5 [facility] Comment on above: Order Comment: Speci men Type: BLOOD SPECIMENOrdering Facility: [facility] Address: [address] [place] [address] Performed By: #### 5 7021-8 ####[facility] LABCLIA [id number] [place] [address] [place] Immature granulocytes (Bld) [#/Vol] 10*3/uL Normal <0.10 [facility] Comment on above: Order Comment: Speci men Type: BLOOD SPECIMENOrdering Facility: [facility] Address: [address] [place] [address] Performed By: #### 5 7021-8 ####[facility] LABCLIA [id number] [place] [address] [place] Immature granulocytes/100 WBC (Bld) 0.2 % Normal [facility] Comment on above: Order Comment: Speci men Type: BLOOD SPECIMENOrdering Facility: [facility] Address: [address] [place] [address] Performed By: #### 5 7021-8 ####[facility] LABCLIA [id number] [place] [address] [place] Lymphocytes (Bld) [#/Vol] 2.97 10*3/uL Normal 1.00-4.00 [facility] Comment on above: Order Comment: Speci men Type: BLOOD SPECIMENOrdering Facility: [facility] Address: [address] [place] [address] Performed By: #### 5 7021-8 ####[facility] LABCLIA [id number] [place] [address] [place] Lymphocytes/100 WBC (Bld) 33.4 % Normal [facility] Comment on above: Order Comment: Speci men Type: BLOOD SPECIMENOrdering Facility: [facility] Address: [address] [place] [address] Performed By: #### 5 7021-8 ####[facility] LABCLIA [id number] [place] [address] [place] MCH (RBC) [Entitic mass] 30.8 pg Normal 26.0-34.0 [facility] Comment on above: Order Comment: Speci men Type: BLOOD SPECIMENOrdering Facility: [facility] Address: [address] [place] [address] Performed By: #### 5 7021-8 ####[facility] LABCLIA [id number] [place] [address] [place] MCHC (RBC) [Mass/Vol] 32.0 g/dL Normal 30.5-36.0 [facility] Comment on above: Order Comment: Speci men Type: BLOOD SPECIMENOrdering Facility: [facility] Address: [address] [place] [address] Performed By: #### 5 7021-8 ####[facility] LABIA [id number] [place] [address] [place] MCV (RBC) [Entitic vol] 96.2 fL Normal 80.0-100.0 [facility] Comment on above: Order Comment: Speci men Type: BLOOD SPECIMENOrdering Facility: [facility] Address: [address] [place] [address] Performed By: #### 5 7021-8 ####[facility] LABIA [id number] [place] [address] [place] Monocytes (Bld) [#/Vol] 1.09 10*3/uL High <0.87 [facility] Comment on above: Order Comment: Speci men Type: BLOOD SPECIMENOrdering Facility: [facility] Address: [address] [place] [address] Performed By: #### 5 7021-8 ####[facility] LABCLIA [id number] [place] [address] [place] Monocytes/100 WBC (Bld) 12.3 % Normal C [facility] Comment on above: Order Comment: Speci men Type: BLOOD SPECIMENOrdering Facility: [facility] Address: [address] [place] [address] Performed By: #### 5 7021-8 ####[facility] LABCLIA [id number] [place] [place] [address] [place] Neutrophils (Bld) [#/Vol] 4.00 10*3/uL Normal 1.45-7.50 [facility] Comment on above: Order Comment: Speci men Type: BLOOD SPECIMENOrdering Facility: [facility] Address: [address] [place] [address] Performed By: #### 5 7021-8 ####[facility] LABCLIA [id number] [place] [address] [place] Neutrophils/100 WBC (Bld) 45.1 % Normal [facility] Comment on above: Order Comment: Speci men Type: BLOOD SPECIMENOrdering Facility: [facility] Address: [address] [place] [address] Performed By: #### 5 7021-8 ####[facility] LABCLIA [id number] [place] [address] [place] Nucleated RBC (Bld) [#/Vol] 10*3/uL Normal <0.01 [facility] Comment on above: Order Comment: Speci men Type: BLOOD SPECIMENOrdering Facility: [facility] Address: [address] [place] [address] Performed By: #### 5 7021-8 ####[facility] LABCLIA [id number] [place] [address] [place] Nucleated RBC/100 WBC (Bld) [Ratio] 0.0 /100 WBC Normal [facility] Comment on above: Order Comment: Speci men Type: BLOOD SPECIMENOrdering Facility: [facility] Address: [address] [place] [address] Performed By: #### 5 7021-8 ####[facility] LABCLIA [id number] [place] [address] [place] Platelet mean volume (Bld) [Entitic vol] 11.9 fL Normal 9.0-12.7 [facility] Comment on above: Order Comment: Speci men Type: BLOOD SPECIMENOrdering Facility: [facility] Address: [address] [place] [address] Performed By: #### 5 7021-8 ####[facility] LABCLIA [id number] [place] [address] [place] Platelets (Bld) [#/Vol] 196 10*3/uL Normal 150-400 [facility] Comment on above: Order Comment: Speci men Type: BLOOD SPECIMENOrdering Facility: [facility] Address: [address] [place] [address] Performed By: #### 5 7021-8 ####[facility] LABCLIA [id number] [place] [address] [place] RBC (Bld) [#/Vol] 4.71 10*6/uL Normal 3.90-5.20 [facility] Comment on above: Order Comment: Speci men Type: BLOOD SPECIMENOrdering Facility: [facility] Address: [address] [place] [address] Performed By: #### 5 7021-8 ####[facility] LABCLIA [id number] [place] [address] [place] WBC (Bld) [#/Vol] 8.88 10*3/uL Normal 3.70-11.00 [facility] Comment on above: Order Comment: Speci men Type: BLOOD SPECIMENOrdering Facility: [facility] Address: [address] [place] [address] Performed By: #### 5 7021-8 ####[facility] LABIA [id number] [place] [address] [place] Comprehensive metabolic 2000 panelon 02-19-2024 Albumin [Mass/Vol] 4.3 g/dL Normal 3.9-4.9 [facility] Comment on above: Order Comment: Speci men Type: BLOOD SPECIMENOrdering Facility: [facility] Address: [address] [address] Performed By: #### 2 4323-8 ####[facility] LABCLIA [id number] [place] [id number] [place] ALP [Catalytic activity/Vol] 61 U/L Normal 34-123 [facility] Comment on above: Order Comment: Speci men Type: BLOOD SPECIMENOrdering Facility: [facility] Address: [address] [place] [address] Performed By: #### 2 4323-8 ####[facility] LABCLIA [id number] [place] [address] [place] ALT [Catalytic activity/Vol] 30 U/L Normal 7-38 [facility] Comment on above: Order Comment: Speci men Type: BLOOD SPECIMENOrdering Facility: [facility] Address: [address] [place] [address] Performed By: #### 2 4323-8 ####[facility] LABCLIA [id number] [place] [address] [place] Anion gap [Moles/Vol] 11 mmol/L Normal 8-15 [facility] Comment on above: Order Comment: Speci men Type: BLOOD SPECIMENOrdering Facility: [facility] Address: [address] [place], [place] [address] Performed By: #### 2 4323-8 ####[facility] LABCLIA [id number] [place] [id number] [place] AST [Catalytic activity/Vol] 25 U/L Normal 13-35 [facility] Comment on above: Order Comment: Speci men Type: BLOOD SPECIMENOrdering Facility: [facility] Address: [address] [place], [place] [id number] Performed By: #### 2 4323-8 ####[facility] LABCLIA [id number] [place] [id number] [place] Bilirubin [Mass/Vol] 0.7 mg/dL Normal 0.2-1.3 [facility] Comment on above: Order Comment: Speci men Type: BLOOD SPECIMENOrdering Facility: [facility] Address: [address] [place] [address] Performed By: #### 2 4323-8 ####[facility] LABCLIA [id number] [place] [address] [place] Calcium [Mass/Vol] 9.8 mg/dL Normal 8.5-10.2 [facility] Comment on above: Order Comment: Speci men Type: BLOOD SPECIMENOrdering Facility: [facility] Address: [address] [place] [address] Performed By: #### 2 4323-8 ####[facility] LABCLIA [id number] [place] [address] [place] Chloride [Moles/Vol] 107 mmol/L Normal 98-107 [facility] Comment on above: Order Comment: Speci men Type: BLOOD SPECIMENOrdering Facility: [facility] Address: [address] [place] [address] Performed By: #### 2 4323-8 ####[facility] LABCLIA [id number] [place] [address] [place] CO2 [Moles/Vol] 23 mmol/L Normal 22-30 [facility] Comment on above: Order Comment: Speci men Type: BLOOD SPECIMENOrdering Facility: [facility] Address: [address] [place], [place] [address] Performed By: #### 2 4323-8 ####[facility] LABCLIA [id number] [place] [address] [place] Creatinine [Mass/Vol] 0.79 mg/dL Normal 0.58-0.96 [facility] Comment on above: Order Comment: Speci men Type: BLOOD SPECIMENOrdering Facility: [facility] Address: [address] [place] [address] Performed By: #### 2 4323-8 ####[facility] LABCLIA [id number] [place] [address] [place] Creatinine and Glomerular filtration rate.predicted panel (S/P/Bld) 78 mL/min/1.73m??? Normal >=60 [facility] Comment on above: Order Comment: Thomas shelton Type: BLOOD SPECIMENOrdering Facility: [facility] Address: [address] [place] [address] Result Comment: Angélica mated Glomerular Filtration Rate [...] Performed By: #### 2 4323-8 ####[facility] LABCLIA [id number] [place] [address] [place] Glucose [Mass/Vol] 198 mg/dL High 74-99 [facility] Comment on above: Order Comment: Thomas shelton Type: BLOOD SPECIMENOrdering Facility: [facility] Address: [address] [place] [address] Result Comment: The [place] Diabetes Association (ADA) provides guidance for cutoff [...] Standards of Medical Care in Diabetes 2016, [place] Diabetes Association. Diabetes Care. 2016.39(Suppl 1). Performed By: #### 2 4323-8 ####[facility] LABCLIA [id number] [place] [address] [place] Potassium [Moles/Vol] 4.7 mmol/L Normal 3.7-5.1 [facility] Comment on above: Order Comment: Speci men Type: BLOOD SPECIMENOrdering Facility: [facility] Address: [address] [place] [address] Performed By: #### 2 4323-8 ####[facility] LABCLIA [id number] [place] [address] [place] Protein [Mass/Vol] 7.0 g/dL Normal 6.3-8.0 [facility] Comment on above: Order Comment: Speci men Type: BLOOD SPECIMENOrdering Facility: [facility] Address: [address] [place] [address] Performed By: #### 2 4323-8 ####[facility] LABCLIA [id number] [place] [address] [place] Sodium [Moles/Vol] 141 mmol/L Normal 136-144 [facility] Comment on above: Order Comment: Speci men Type: BLOOD SPECIMENOrdering Facility: [facility] Address: [address] [place] [address] Performed By: #### 2 4323-8 ####[facility] LABCLIA [id number] [place] [address] [place] Urea nitrogen [Mass/Vol] 21 mg/dL Normal 7-21 [facility] Comment on above: Order Comment: Speci men Type: BLOOD SPECIMENOrdering Facility: [facility] Address: [address] [place] [address] Performed By: #### 2 4323-8 ####[facility] LABCLIA [id number] [place] [address] [place] HbA1c (Bld)on 02-19-2024 Average glucose Estimated from glycated hemoglobin (Bld) [Mass/Vol] 180 mg/dL Normal [facility] Comment on above: Order Comment: Thomas shelton Type: BLOOD SPECIMENOrdering Facility: [facility] Address: [address] [place] [address] Result Comment: eAG: (Estimated average glucose) is a calculated value from HgbA1c and is canvas products 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 of the average blood glucose level in the last 2-3 month period. Performed By: #### 5 5454-3 ####[facility] LABCLIA [id number] [address] [place] [facility] HbA1c (Bld) [Mass fraction] 7.9 % High 4.3-5.6 [facility] Comment on above: Order Comment: Thomas shelton Type: BLOOD SPECIMENOrdering Facility: [facility] Address: [address] [place] [address] Result Comment: [place] Diabetes Association guidelines indicate that patients with HgbA1c in the range 5.7-6.4% are at increased risk for development of diabetes, and intervention by lifestyle modification may be beneficial. HgbA1c greater or equal to 6.5% is considered diagnostic of diabetes. Performed By: #### 5 5454-3 ####[facility] LABCLIA [id number] [address] [facility] 36on 02-13-2024 36 Patient referred to [facility] from Dr Hubbard. Records scanned under Media and printed. I called and scheduled her for 03/10/24 w/ PB (waiting on surgeon availability). I need to make chart and mail [employer] packet. Normal [facility] DAVID SCREENINGon 04-26-2023 [facility] XR CHEST 2V FRONTAL/LATon [facility] XR Chest PA and Lateralon IMPRESSION: No acute radiographic abnormality. Pipe Changer: PSCB Transcribe Date/Time: Jul 31 2022 4:03P Dictated by : BRE SAMSON MD This examination was interpreted and the report reviewed and electronically signed by: BRE SAMSON MD on Jul 31 2022 4:04PM [facility] DIVISION OF RADIOLOGY * * *Final Report* [...] shows degenerative changes. DIVISION OF RADIOLOGY Provider, [facility] - 07/31/2022 * * *Final Report* [...] changes. IMPRESSION IMPRESSION: No acute radiographic abnormality. Pipe Changer: PSCB Transcribe Date/Time: Jul 31 2022 4:03P Dictated by : BRE SAMSON MD This examination was interpreted and the report reviewed and electronically signed by: BRE SAMSON MD on Jul 31 2022 4:04PM EST [facility] Radiology Study observation (narrative) [facility] XR Chest PA and LateralOrder ed By: Cc Provider on 07-31-2022 [facility] XR Chest PA and Lateralon IMPRESSION: Hazy opacities overlying the left midlung. Clinically correlate. Pipe Changer: BOOGIE Transcribe Date/Time: May 18 2020 4:48P Dictated by : BRE SAMSON MD This examination was interpreted and the report reviewed and electronically signed by: BRE SAMSON MD on May 18 2020 4:50PM [facility] DIVISION OF RADIOLOGY * * *Final Report* [...] shows degenerative changes. DIVISION OF RADIOLOGY Provider, [facility] - 05/18/2020 * * *Final Report* [...] opacities overlying the left midlung. Clinically correlate. Pipe Changer: BOOGIE Transcribe Date/Time: May 18 2020 4:48P Dictated by : BRE SAMSON MD This examination was interpreted and the report reviewed and electronically signed by: BRE SAMSON MD on May 18 2020 4:50PM EST [facility] Radiology Study observation (narrative) [facility] XR Chest PA and LateralOrder ed By: Ccf Provider on 05-18-2020 [facility] Vital Signs Date Time Vital Sign Value Performing Clinician Harshad hendrickson 02-08-2025 10:29-0400 Body height 152.[address] Abby Mcclellan MD Work Phone: [phone] [place] [address] 02-08-2025 10:29-0400 Body mass index (BMI) [Ratio] 44.9 kg/m2 Dr. Abby Mcclellan MD Work Phone: 0(526)[phone] [place] [address] 02-08-2025 10:29-0400 Body weight 104.[address] Abby Mcclellan MD Work Phone: [phone])[phone] [place] [address] 02-08-2025 10:29-0400 Diastolic blood pressure 79 mm[Hg] Dr. Abby Mcclellan MD Work Phone: [phone](402)[phone] [place] [address] 02-08-2025 10:29-0400 Heart rate 95 /min Dr. Abby Mcclellan MD Work Phone: [facility] 02-08-2025 10:29-0400 Respiratory rate 18 /min Dr. Abby Mcclellan MD Work Phone: [facility] 02-08-2025 10:29-0400 SaO2% (BldA) [Mass fraction] 97 % Dr. Abby Mcclellan MD Work Phone: [facility] 02-08-2025 10:29-0400 Systolic blood pressure 129 mm[Hg] Dr. Abby Mcclellan MD Work Phone: [facility] 01-11-2025 11:16-0400 Body mass index (BMI) [Ratio] 47.53 kg/m2 Kamlesh Acosta APRN.WAREHOUSE OPERATOR Work Phone: [facility] 01-11-2025 11:16-0400 Body weight 110.4 kg Kamlesh Dave WOUND CARE TECHNICIAN.CN P Work Phone: [facility] 01-11-2025 11:16-0400 Diastolic blood pressure 78 mm[Hg] Kamlesh Dave WOUND CARE TECHNICIAN.WAREHOUSE OPERATOR Work Phone: [facility] 01-11-2025 11:16-0400 Heart rate 108 /min Kamlesh Dave WOUND CARE TECHNICIAN.CN P Work Phone: [facility] 01-11-2025 11:16-0400 SaO2% (BldA) [Mass fraction] 97 % Kamlesh Dave WOUND CARE TECHNICIAN.WAREHOUSE OPERATOR Work Phone: [facility] 01-11-2025 11:16-0400 Systolic blood pressure 120 mm[Hg] Kamlesh Dave WOUND CARE TECHNICIAN.WAREHOUSE OPERATOR Work Phone: [facility] 11-10-2024 11:15-0400 Body mass index (BMI) [Ratio] 46.84 kg/m2 Kamlesh Dave WOUND CARE TECHNICIAN.WAREHOUSE OPERATOR Work Phone: [facility] 11-10-2024 11:15-0400 Body weight 108.8 kg Kamlesh Dave WOUND CARE TECHNICIAN.CN P Work Phone: [facility] 11-10-2024 11:15-0400 Diastolic blood pressure 74 mm[Hg] Kamlesh Dave WOUND CARE TECHNICIAN.WAREHOUSE OPERATOR Work Phone: [facility] 11-10-2024 11:15-0400 Heart rate 84 /min Kamlesh Dave WOUND CARE TECHNICIAN.CN P Work Phone: [facility] 11-10-2024 11:15-0400 SaO2% (BldA) [Mass fraction] 98 % Kamlesh Dave WOUND CARE TECHNICIAN.WAREHOUSE OPERATOR Work Phone: [facility] 11-10-2024 11:15-0400 Systolic blood pressure 128 mm[Hg] Kamlesh Dave WOUND CARE TECHNICIAN.WAREHOUSE OPERATOR Work Phone: [facility] 09-29-2024 12:05-0500 Body mass index (BMI) [Ratio] 47.88 kg/m2 Kamlesh Dave WOUND CARE TECHNICIAN.WAREHOUSE OPERATOR Work Phone: [facility] 09-29-2024 12:05-0500 Body weight 111.2 kg Kamlesh Dave WOUND CARE TECHNICIAN.CN P Work Phone: [facility] 09-29-2024 12:05-0500 Diastolic blood pressure 72 mm[Hg] Kamlesh Dave WOUND CARE TECHNICIAN.WAREHOUSE OPERATOR Work Phone: [facility] 09-29-2024 12:05-0500 Heart rate 96 /min Kamlesh Dave WOUND CARE TECHNICIAN.CN P Work Phone: [facility] 09-29-2024 12:05-0500 SaO2% (BldA) [Mass fraction] 97 % Kamlesh Dave WOUND CARE TECHNICIAN.WAREHOUSE OPERATOR Work Phone: [facility] 09-29-2024 12:05-0500 Systolic blood pressure 106 mm[Hg] Kamlesh Dave WOUND CARE TECHNICIAN.WAREHOUSE OPERATOR Work Phone: [facility] 05-07-2024 15:37-0400 Body height 151.1 cm Americaoscar Davis WOUND CARE TECHNICIAN - WAREHOUSE OPERATOR Work Phone: [facility] [employer] 05-07-2024 15:37-0400 Body mass index (BMI) [Ratio] 47.66 kg/m2 America Davis WOUND CARE TECHNICIAN - WAREHOUSE OPERATOR Work Phone: [facility] [employer] 05-07-2024 15:37-0400 Body weight 108.86 kg Americaoscar Davis WOUND CARE TECHNICIAN - WAREHOUSE OPERATOR Work Phone: [facility] [employer] 05-07-2024 15:37-0400 Diastolic blood pressure 70 mm[Hg] America Davis WOUND CARE TECHNICIAN - WAREHOUSE OPERATOR Work Phone: [facility] [employer] 05-07-2024 15:37-0400 Heart rate 103 /min America Davis WOUND CARE TECHNICIAN - WAREHOUSE OPERATOR Work Phone: [facility] [employer] 05-07-2024 15:37-0400 Systolic blood pressure 122 mm[Hg] America Davis WOUND CARE TECHNICIAN - WAREHOUSE OPERATOR Work Phone: [facility] [employer] 05-07-2024 14:26-0400 Body height 149.9 cm Lindsey Tolentino WOUND CARE TECHNICIAN - WAREHOUSE OPERATOR Work Phone: [facility] [employer] [facility] 05-07-2024 14:26-0400 Body mass index (BMI) [Ratio] 48.47 kg/m2 Lindsey Tolentino WOUND CARE TECHNICIAN - WAREHOUSE OPERATOR Work Phone: [facility] [employer] 05-07-2024 14:26-0400 Body weight 108.86 kg Lindsey Tolentino WOUND CARE TECHNICIAN - WAREHOUSE OPERATOR Work Phone: [facility] [employer] 04-17-2024 13:02-0400 Body height 149.9 cm Lindsey Tolentino WOUND CARE TECHNICIAN - WAREHOUSE OPERATOR Work Phone: [facility] [employer] 04-17-2024 13:02-0400 Body mass index (BMI) [Ratio] 48.47 kg/m2 Lindsey Tolentino WOUND CARE TECHNICIAN - WAREHOUSE OPERATOR Work Phone: [facility] [facility] 04-17-2024 13:02-0400 Body weight 108.86 kg Lindsey Tolentino APRN - WAREHOUSE OPERATOR Work Phone: [facility] [employer] 04-17-2024 13:02-0400 Diastolic blood pressure 70 mm[Hg] Lindsey Tolentino WOUND CARE TECHNICIAN - WAREHOUSE OPERATOR Work Phone: [facility] [facility] 04-17-2024 13:02-0400 Heart rate 110 /min Lindsey Tolentino WOUND CARE TECHNICIAN - WAREHOUSE OPERATOR Work Phone: [facility] [facility] 04-17-2024 13:02-0400 SaO2% (BldA) [Mass fraction] 100 % Lindsey Tolentino WOUND CARE TECHNICIAN - WAREHOUSE OPERATOR Work Phone: [facility] [facility] 04-17-2024 13:02-0400 Systolic blood pressure 110 mm[Hg] Lindsey Tolentino WOUND CARE TECHNICIAN - WAREHOUSE OPERATOR Work Phone: [facility] [facility] 04-08-2024 13:00-0400 Diastolic blood pressure 74 mm[Hg] Srinivasa Poon MD Work Phone: [facility] [facility] 04-08-2024 13:00-0400 Heart rate 108 /min Srinivasa Edwards Work Phone: [facility] [facility] 04-08-2024 13:00-0400 Respiratory rate 35 /min Srinivasa Edwards Work Phone: [facility] [employer] [facility] 04-08-2024 13:00-0400 Systolic blood pressure 141 mm[Hg] Srinivasa Poon MD Work Phone: [facility] [facility] 04-08-2024 12:07-0400 Body temperature 99.1 [degF] Srinivasa Edwards Work Phone: [facility] [facility] 04-08-2024 12:07-0400 SaO2% (BldA) [Mass fraction] 92 % Srinivasa Poon MD Work Phone: [facility] [facility] 04-08-2024 06:00-0400 Body mass index (BMI) [Ratio] 49.43 kg/m2 Srinivasa Poon MD Work Phone: [facility] [facility] 04-08-2024 06:00-0400 Body weight 111 kg Srinivasa Edwards Work Phone: [facility] [facility] 04-07-2024 09:44-0400 Body height 149.9 cm Srinivasa Edwards Work Phone: [facility] [facility] 03-10-2024 15:49-0400 Body height 149.9 cm Renzo Hernandezung DO Work Phone: [facility] [facility] 03-10-2024 15:49-0400 Body mass index (BMI) [Ratio] 50.32 kg/m2 Renzo Horta DO Work Phone: [facility] [facility] 03-10-2024 15:49-0400 Body weight 113 kg Renzo Hernandezung DO Work Phone: [facility] [facility] 03-10-2024 15:49-0400 Diastolic blood pressure 72 mm[Hg] Renzo Hernandezung DO Work Phone: [facility] [facility] 03-10-2024 15:49-0400 Heart rate 87 /min Renzo Hernandezung DO Work Phone: [facility] [facility] 03-10-2024 15:49-0400 SaO2% (BldA) [Mass fraction] 97 % Renzo Hernandezung DO Work Phone: [facility] 03-10-2024 15:49-0400 Systolic blood pressure 128 mm[Hg] Renzo Horta DO Work Phone: [facility] 03-10-2024 15:05-0400 Body height 151.1 cm Srinivasa Edwards Work Phone: [facility] [facility] 03-10-2024 15:05-0400 Body mass index (BMI) [Ratio] 49.65 kg/m2 Srinivasa Poon MD Work Phone: [facility] 03-10-2024 15:05-0400 Body weight 113.4 kg Srinivasa Edwards Work Phone: [facility] 03-10-2024 15:05-0400 Diastolic blood pressure 72 mm[Hg] Srinivasa Poon MD Work Phone: [facility] 03-10-2024 15:05-0400 Heart rate 87 /min Srinivasa Edwards Work Phone: [facility] [facility] 03-10-2024 15:05-0400 SaO2% (BldA) [Mass fraction] 97 % Srinviasa Poon MD Work Phone: [facility] 03-10-2024 15:05-0400 Systolic blood pressure 128 mm[Hg] Srinivasa Poon MD Work Phone: [facility] 02-25-2024 11:25-0400 Body mass index (BMI) [Ratio] 47.85 kg/m2 Kamlesh Parekhr WOUND CARE TECHNICIAN.WAREHOUSE OPERATOR Work Phone: [facility] 02-25-2024 11:25-0400 Body weight 111.13 kg Kamlesh Dave WOUND CARE TECHNICIAN.CN P Work Phone: [facility] 02-25-2024 11:25-0400 Diastolic blood pressure 76 mm[Hg] Kamlesh Dave WOUND CARE TECHNICIAN.WAREHOUSE OPERATOR Work Phone: [facility] 02-25-2024 11:25-0400 Heart rate 99 /min Kamlesh Dave WOUND CARE TECHNICIAN.CN P Work Phone: [facility] 02-25-2024 11:25-0400 SaO2% (BldA) [Mass fraction] 97 % Kamlesh Dave WOUND CARE TECHNICIAN.WAREHOUSE OPERATOR Work Phone: [facility] 02-25-2024 11:25-0400 Systolic blood pressure 122 mm[Hg] Kamlesh Dave WOUND CARE TECHNICIAN.WAREHOUSE OPERATOR Work Phone: [facility] 04-19-2023 11:50-0400 Body weight 109.77 kg Kamlesh Dave WOUND CARE TECHNICIAN.CN P Work Phone: [facility] 04-19-2023 11:50-0400 Diastolic blood pressure 78 mm[Hg] Kamlesh Dave WOUND CARE TECHNICIAN.WAREHOUSE OPERATOR Work Phone: [facility] 04-19-2023 11:50-0400 Heart rate 112 /min Kamlesh Dave WOUND CARE TECHNICIAN.CN P Work Phone: [facility] 04-19-2023 11:50-0400 SaO2% (BldA) [Mass fraction] 96 % Kamlesh Dave WOUND CARE TECHNICIAN.WAREHOUSE OPERATOR Work Phone: [facility] 04-19-2023 11:50-0400 Systolic blood pressure 118 mm[Hg] Kamlesh Dave WOUND CARE TECHNICIAN.WAREHOUSE OPERATOR Work Phone: [facility] 07-31-2022 15:17-0500 Body temperature 98.71 [degF] Keily Mckinney WOUND CARE TECHNICIAN.WAREHOUSE OPERATOR Work Phone: [facility] 07-31-2022 15:17-0500 Body weight 106.87 kg Keily Mckinney WOUND CARE TECHNICIAN.WAREHOUSE OPERATOR Work Phone: [facility] 07-31-2022 15:17-0500 Diastolic blood pressure 72 mm[Hg] Keily Mckinney WOUND CARE TECHNICIAN.WAREHOUSE OPERATOR Work Phone: [facility] 07-31-2022 15:17-0500 Heart rate 101 /min Keily Mckinney WOUND CARE TECHNICIAN.WAREHOUSE OPERATOR Work Phone: [facility] 07-31-2022 15:17-0500 Respiratory rate 18 /min Keily Mckinney WOUND CARE TECHNICIAN.WAREHOUSE OPERATOR Work Phone: [facility] 07-31-2022 15:17-0500 SaO2% (BldA) [Mass fraction] 96 % Keily Mckinney WOUND CARE TECHNICIAN.WAREHOUSE OPERATOR Work Phone: [facility] 07-31-2022 15:17-0500 Systolic blood pressure 128 mm[Hg] Keily Mckinney WOUND CARE TECHNICIAN.WAREHOUSE OPERATOR Work Phone: [facility] 04-18-2022 14:10-0400 Body weight 100.7 kg Abby Mcclellan MD Work Phone: [facility] 04-18-2022 14:10-0400 Diastolic blood pressure 70 mm[Hg] Abby Mcclellan MD Work Phone: [facility] 04-18-2022 14:10-0400 Heart rate 98 /min Abby Mcclellan MD Work Phone: [facility] 04-18-2022 14:10-0400 SaO2% (BldA) [Mass fraction] 95 % Abby Mcclellan MD Work Phone: [facility] 04-18-2022 14:10-0400 Systolic blood pressure 110 mm[Hg] Abby Mcclellan MD Work Phone: [facility] 02-12-2022 14:09-0400 Body height 152.[address] Abby Mcclellan Work Phone: [facility] Work Phone: 02-12-2022 14:09-0400 Body mass index (BMI) [Ratio] 42 kg/m2 Dr. Abby Mcclellan Work Phone: [facility] Work Phone: 02-12-2022 14:09-0400 Body temperature 96.6 [degF] Dr. Abby Mcclellan Work Phone: [facility] Work Phone: 02-12-2022 14:09-0400 Body weight 97.[address] Abby Mcclellan Work Phone: [facility] Work Phone: 02-12-2022 14:09-0400 Diastolic blood pressure 82 mm[Hg] Dr. Abby Mcclellan Work Phone: [facility] Work Phone: 02-12-2022 14:09-0400 Heart rate 102 /min Dr. Abby Mcclellan Work Phone: [facility] Work Phone: 02-12-2022 14:09-0400 Respiratory rate 22 /min Dr. Abby Mcclellan Work Phone: [facility] Work Phone: 02-12-2022 14:09-0400 SaO2% (BldA) [Mass fraction] 99 % Dr. Abby Mcclellan Work Phone: [facility] Work Phone: 02-12-2022 14:09-0400 Systolic blood pressure 140 mm[Hg] Dr. Abby Mcclellan Work Phone: [facility] Work Phone: 11-01-2021 13:40-0400 Body height 152.[address] Abby Mcclellan Work Phone: [facility] Work Phone: 11-01-2021 13:40-0400 Body mass index (BMI) [Ratio] 39.8 kg/m2 Dr. Abby Mcclellan Work Phone: [facility] Work Phone: 11-01-2021 13:40-0400 Body weight 92.[address] Abby Mcclellan Work Phone: [facility] Work Phone: 11-01-2021 13:40-0400 Diastolic blood pressure 78 mm[Hg] Dr. Abby Mcclellan Work Phone: [facility] Work Phone: 11-01-2021 13:40-0400 Heart rate 96 /min Dr. Abby Mcclellan Work Phone: [facility] Work Phone: 11-01-2021 13:40-0400 Respiratory rate 20 /min Dr. Abby Mcclellan Work Phone: [facility] Work Phone: 11-01-2021 13:40-0400 SaO2% (BldA) [Mass fraction] 95 % Dr. Abby Mcclellan Work Phone: [facility] Work Phone: 11-01-2021 13:40-0400 Systolic blood pressure 118 mm[Hg] Dr. Abby Mcclellan Work Phone: [facility] Work Phone: Encounters Encounter Date Encounter Type Care Provider Facility Start: 02-15-2025 End: 02-16-2025 Refill Abby Mcclellan MD Work Phone: [facility] Comment on above: Refill Request Start: 02-09-2025 End: 02-15-2025 Refill Abby Mcclellan MD Work Phone: [facility] Comment on above: Medication Problem; Refill Request Start: 02-08-2025 End: 02-08-[address] Abby Mcclellan MD Work Phone: -[facility] Start: 02-08-2025 End: 02-08-2025 Patient encounter procedure Gm Robledo PA -[facility] Work Phone: Start: 01-11-2025 End: 01-11-2025 Patient encounter procedure Kamlesh Acosta APRN.CNP Work Phone: [facility] Comment on above: Type 2 diabetes jose roberto itus with hyperglycemia, without long-term current use of insulin (HCC) (Primary Dx); Nonrheumatic aortic valve stenosis; Cardiac pacemaker; Hyperlipidemia associated with type 2 diabetes mellitus (HCC); Hypertension goal BP (blood pressure) < 140/90; Sciatic leg pain Start: 01-11-2025 End: 01-11-2025 ambulatory KAMLESH PAREKHR Facility:[facility] Start: 01-07-2025 End: 01-07-2025 ambulatory Nu Bruce [facility] Work Phone: [facility] Start: 01-07-2025 End: 01-07-2025 Patient encounter procedure Nu Bruce [facility] Work Phone: [facility] Start: 01-07-2025 End: 01-11-2025 Telephone encounter Abby Mcclellan MD Work Phone: [facility] Comment on above: Lab Orders Start: 01-01-2025 End: 01-01-2025 ambulatory Deshawn Sarmientoamor [facility] [place] Start: 01-01-2025 End: 01-01-2025 Patient encounter procedure Deshawn Sierra [facility] [place] Comment on above: Population Health Na vigation Outreach [facility] Start: 12-10-2024 End: 01-30-2025 Refill Abby Mcclellan MD Work Phone: [facility] Comment on above: patient cancelled re quest Start: 12-07-2024 End: 12-07-[address] Abby Mcclellan MD Work Phone: [facility] Work Phone: Start: 12-07-2024 End: 12-07-[address] Ac Hubbard MD -[facility] Work Phone: Start: 12-02-2024 End: 12-02-[address] Abby Mcclellan MD Work Phone: [facility] Work Phone: Start: 12-02-2024 End: 12-02-[address] Ac Hubbard MD -[facility] Work Phone: Start: 11-10-2024 End: 11-10-2024 ambulatory KAMLESH DAVE Facility:[facility] Start: 11-10-2024 End: 11-10-2024 Patient encounter procedure Kamlesh Acosta WOUND CARE TECHNICIAN.WAREHOUSE OPERATOR Work Phone: [facility] Comment [...] Start: 09-29-2024 End: 09-29-2024 ambulatory KAMLESH ACOSTA Facility:[facility] Start: 09-29-2024 End: 09-29-2024 Patient encounter procedure Kamlesh Acosta WOUND CARE TECHNICIAN.WAREHOUSE OPERATOR Work Phone: [facility] Comment [...] Start: 09-19-2024 End: 09-19-2024 ambulatory ABBY MCCLELLAN Facility:[facility] Start: 09-07-2024 End: 09-07-2024 ambulatory Ac Hubbard Facility:[facility] Start: 09-07-2024 End: 09-07-[address] Ac Hubbard MD -[facility] Work Phone: Start: 08-18-2024 End: 08-20-2024 Roosevelt Mcclellan MD Work Phone: [facility] Comment on above: Refill Request Lab Orders (September pointment) Start: 2024 End: 2024 ambulatory Ac Hubbard Facility:[facility] Start: 06-01-2024 End: 06-01-2024 ambulatory Abby Jerry Mcclellan Facility:[facility] Start: 05-27-2024 End: 12-11-2024 Telephone encounter America Davis WOUND CARE TECHNICIAN - WAREHOUSE OPERATOR Work Phone: [facility] Comment on above: Prior Authorization Start: 05-19-2024 End: 05-19-2024 ambulatory America Davis WOUND CARE TECHNICIAN - WAREHOUSE OPERATOR Work Phone: [facility] Comment on above: PAF (paroxysmal atri al fibrillation) ([facility]) Start: 05-07-2024 End: 05-07-2024 ambulatory AMERICA DAVIS [facility] Start: 05-07-2024 End: 05-07-2024 Office outpatient visit 25 minutes America Davis WOUND CARE TECHNICIAN - WAREHOUSE OPERATOR Work Phone: [facility] Comment on above: Severe aortic stenos is (Primary Dx); PAF (paroxysmal atrial fibrillation) (HCC); Essential hypertension; Complete heart block (HCC) Start: 05-07-2024 End: 05-07-2024 ambulatory LINDSEY TOLENTINO [facility] Start: 05-07-2024 End: 05-07-2024 Subsequent hospital visit by physician Lindsey Tolentino APRN - [place] Work Phone: [facility] [address] Non-Invasive Card[facility] Comment on above: Aortic valve stenosi s, etiology of cardiac valve disease unspecified Start: 05-07-2024 End: 05-07-2024 ambulatory VY MORA [facility] Start: 05-04-2024 End: 05-04-2024 ambulatory ABBY Jerry MCCLELLAN Facility:[facility] Start: 04-23-2024 End: 04-23-2024 Refill Abby Mcclellan MD Work Phone: [facility] Comment on above: Refill Request Start: 04-17-2024 End: 04-17-2024 Office outpatient visit 25 minutes Lindsey Tolentino APRN - WAREHOUSE OPERATOR Work Phone: [facility] Cardiology - [place] Comment on above: S/P TAVR (transcathe ter aortic valve replacement) (Primary Dx); Essential hypertension; Aortic valve stenosis, etiology of cardiac valve disease unspecified; Complete heart block (CMS/HCC) ([facility]) Start: 04-17-2024 End: 04-17-2024 ambulatory LINDSEY TOLENTINO [facility] Start: 04-06-2024 End: 04-08-2024 Evaluation and management of inpatient Srinivasa Poon MD Work Phone: [facility] Cardiac Thoracic Vascular Intensive Care Unit CTV ICU T1 Comment on above: Nonrheumatic aortic valve stenosis (Primary Dx); Severe aortic stenosis; Complete heart block (CMS/HCC) ([facility]) Start: 04-03-2024 End: 04-03-2024 ambulatory America Davis WOUND CARE TECHNICIAN - WAREHOUSE OPERATOR Work Phone: [facility] Cardiology Comment on above: Severe aortic stenos is (Primary Dx) Start: 04-01-2024 End: 04-01-2024 ambulatory ABBY MCCLELLAN Facility:[facility] Start: 03-10-2024 End: 03-10-2024 Office outpatient new 60 minutes Ira Aquino MD Work Phone: [facility] Cardiology Comment on above: Severe aortic stenos is (Primary Dx); Memory loss; Dizziness; Daytime hypersomnolence; Polypharmacy Nonrheumatic aortic valve stenosis (Primary Dx); PAF (paroxysmal atrial fibrillation) ([facility]) Severe aortic stenos is (Primary Dx) Start: 03-10-2024 End: 03-10-2024 ambulatory AMERICAOSCAR DAVIS [facility] Start: 03-10-2024 End: 03-10-2024 Subsequent hospital visit by physician America Davis WOUND CARE TECHNICIAN - WAREHOUSE OPERATOR Work Phone: [facility] [address] Comment on above: Nonrheumatic aortic valve stenosis Start: 03-06-2024 Refill Abby monroy MD Work Phone: [facility] Comment on above: Refill Request Start: 02-25-2024 End: 02-25-2024 ambulatory KAMLESH ACOSTA Facility:[facility] Start: 02-25-2024 End: 02-25-2024 Patient encounter procedure Kamlesh Acosta WOUND CARE TECHNICIAN.WAREHOUSE OPERATOR Work Phone: [facility] Comment on above: Medicare annual well ness [...] Start: 02-19-2024 End: 02-19-2024 ambulatory KAMLESH ACOSTA Facility:[facility] Start: 11-15-2023 Refill Abby monroy MD Work Phone: [facility] Comment on above: Refill Request Start: 11-12-2023 Refill Kamlesh Morgan PRN.WAREHOUSE OPERATOR Work Phone: [facility] Comment on above: Refill Request Start: 10-07-2023 Telephone encounter Myranda [facility] Comment on above: New Primary Care Pha rmacy Appt. Start: 10-03-[address] [facility] RP h Work Phone: [facility] Start: 07-12-2023 Telephone encounter Abby doshi MD Work Phone: Radiology Comment on above: Orders (labs) Start: 05-16-2023 Refill Abby monroy MD Work Phone: [facility] Comment on above: Refill Request Start: 05-11-2023 End: 05-11-2023 ambulatory [facility] Work Phone: [facility] Start: 04-29-2023 Documentation procedure Mammog andre Coordinator [facility] Start: 04-29-2023 Letter encounter Mammography Coordinator [facility] Department Start: 04-26-2023 End: 04-26-2023 Subsequent hospital visit by physician Screen Mammo [facility] Comment on above: Encounter for screen ing mammogram for breast cancer [Z12.31] Start: 04-19-2023 End: 04-19-2023 Patient encounter procedure Kamlesh Dave WOUND CARE TECHNICIAN.WAREHOUSE OPERATOR Work Phone: [facility] Comment on above: Type 2 diabetes jose roberto itus with hyperglycemia, without long-term current use of insulin (HCC) (Primary Dx); Essential hypertension; Hyperlipidemia associated with type 2 diabetes mellitus (HCC) ; Moderate aortic stenosis by prior echocardiogram; Acute cough Start: 01-18-2023 Telephone encounter Abby doshi MD Work Phone: [facility] Comment on above: Orders (glucometer) Start: 01-16-2023 ambulatory Genna Steiner [facility] [place] Comment on above: Population Health Na vigation Outreach ([employer] [facility] ) Start: 11-09-2022 Refill Abby monroy MD Work Phone: [facility] Comment on above: Refill Request Start: 10-18-2022 Telephone encounter Abby doshi MD Work Phone: [facility] Comment on above: Statin Therapy Start: 07-31-2022 End: 07-31-2022 Subsequent hospital visit by physician Xr [facility] Work Phone: Radiology Comment on above: Acute cough [R05.1] Start: 07-31-2022 End: 07-31-2022 Patient encounter procedure Keily Faye WOUND CARE TECHNICIAN.WAREHOUSE OPERATOR Work Phone: [facility] Comment on above: Acute cough (Primary Dx) Start: 05-15-2022 End: 05-15-2022 Nursing evaluation of patient and report Mi Nurse Work Phone: [facility] [place] Comment on above: Need for vaccination (Primary Dx) Start: 05-04-2022 Telephone encounter [facility] holden WOUND CARE TECHNICIAN.CHILD AND ADOLESCENT PSYCHOLOGIST Work Phone: [facility] Comment on above: Orders Start: 04-25-2022 End: 04-25-[address] Abby Mcclellan Work Phone: [facility] Work Phone: Start: 04-25-2022 End: 04-25-[address] Abby Mcclellan Work Phone: [facility]-Outpatient Breast Imaging Start: 04-18-2022 End: 04-18-2022 Office outpatient visit 25 minutes Abby Mcclellan MD Work Phone: [facility] Comment on above: Controlled type 2 di abetes mellitus without complication, without long-term current use of insulin (HCC) (Primary Dx); Plantar fasciitis of right foot; Nonrheumatic aortic valve stenosis; Encounter for screening mammogram for breast cancer; Essential hypertension Start: 02-12-2022 End: 02-12-[address] Abby Mcclellan Work Phone: [facility] Start: 12-22-2021 ambulatory Munira Edouard [facility] [place] Comment on above: Population Health Na vigation Outreach ([employer] care gaps) Start: 12-05-2021 Telephone encounter Abby doshi MD Work Phone: [facility] Comment on above: Follow Up (helevated glucose) Start: 12-01-2021 Non-patient / Non-visit Dr. Alyssa Mcclellan Work Phone: [facility] Start: 12-01-2021 End: 12-01-[address] Abby Mcclellan Work Phone: [facility]-Cardiovascula r Services Start: 11-01-2021 End: 11-01-[address] Abby Mcclellan Work Phone: [facility] Start: 05-18-2020 End: 05-18-2020 Subsequent hospital visit by physician Xr [facility] Work Phone: Radiology Comment on above: Cough [R05] Procedures Date Procedure Procedure Detail Performing Clinician Start: 05-07-2024 Echo tthrc r-t 2d w/ wom-mode compl spec&colr d Lindsey Tolentino APRN - WAREHOUSE OPERATOR Work Phone: Start: 05-07-2024 Ecg routine ecg w/le ast 12 lds trcg only w/o i&r Srinivasa Poon MD Work Phone: Start: 04-17-2024 Ecg routine ecg w/le ast 12 lds trcg only w/o i&r Srinivasa Poon MD Work Phone: Start: 04-08-2024 Glucose quantitative blood xcpt reagent strip Srinivasa Poon MD Work Phone: Start: 04-08-2024 Radiologic exam ches t 2 views Pita Vasquezhan WOUND CARE TECHNICIAN - WAREHOUSE OPERATOR Work Phone: Start: 04-08-2024 Glucose quantitative blood [...] lds trcg only w/o i&r Pita Horvathoolagkala WOUND CARE TECHNICIAN - WAREHOUSE OPERATOR Work Phone: Start: 04-07-2024 Electrophysiology study Katia Augustin WOUND CARE TECHNICIAN - WAREHOUSE OPERATOR Work Phone: Start: 04-07-2024 Ecg routine ecg w/le ast 12 lds trcg only w/o i&r Lindsey Tolentino WOUND CARE TECHNICIAN - WAREHOUSE OPERATOR Work Phone: Start: 04-07-2024 Ecg routine ecg w/le ast 12 lds trcg only w/o i&r Srinivasa Poon MD Work Phone: Start: 04-07-2024 Echo tthrc r-t 2d w/ wom-mode compl spec&colr d Lindsey Tolentino WOUND CARE TECHNICIAN - WAREHOUSE OPERATOR Work Phone: Start: 04-07-2024 End: 04-07-2024 Glucose quantitative blood xcpt reagent strip Srinivasa Poon MD Work Phone: Start: 04-07-2024 OXYGEN THERAPY Lindsey Delatorre Fer WOUND CARE TECHNICIAN - WAREHOUSE OPERATOR Work Phone: Start: 04-07-2024 Ecg routine ecg w/le ast 12 lds trcg only w/o i&r Lindsey Delatorre Fer WOUND CARE TECHNICIAN - WAREHOUSE OPERATOR Work Phone: Start: 04-07-2024 Basic metabolic pane l calcium total Lindsey Delatorre Fer WOUND CARE TECHNICIAN - WAREHOUSE OPERATOR Work Phone: Start: 04-06-2024 Glucose quantitative blood xcpt reagent strip Srinivasa Poon MD Work Phone: Start: 04-06-2024 OXYGEN THERAPY Lindsey Delatorre Fer WOUND CARE TECHNICIAN - WAREHOUSE OPERATOR Work Phone: Start: 04-06-2024 Glucose quantitative blood xcpt reagent strip Srinivasa Poon MD Work Phone: Start: 04-06-2024 Ecg routine ecg w/le ast 12 lds trcg only w/o i&r Lindsey Delatorre Fer WOUND CARE TECHNICIAN - WAREHOUSE OPERATOR Work Phone: Start: 04-06-2024 Basic metabolic pane l calcium total Lindsey Delatorre Fer WOUND CARE TECHNICIAN - WAREHOUSE OPERATOR Work Phone: Start: 04-06-2024 End: 04-06-2024 OXYGEN THERAPY Al HADLEY RN - TRANSFORMER MOLDER Work Phone: Start: 04-06-2024 Cardiac catheterizat ion [...] on above: Performed By: #### L [id number] ####Prototype Model Maker: GRISEL GARZA ([id number])[facility] ([facility])[address] [place] [address] Start: 04-06-2024 ABO and Rh group [Ty pe] in Blood by Confirmatory method America Davis WOUND CARE TECHNICIAN - WAREHOUSE OPERATOR Work Phone: Start: 04-06-2024 Blood typing serologic abo America Davis WOUND CARE TECHNICIAN - WAREHOUSE OPERATOR Work Phone: Start: 04-06-2024 Glucose quantitative blood xcpt reagent strip Srinivasa Poon MD Work Phone: Start: 04-01-2024 Antibody screen KAMLESH PIRES Comment on above: Order Comment: Speci men Type: BLOOD SPECIMENOrdering Facility: [facility] Address: [address] [place] [address] Performed By: #### T SCR ####[facility] [id number] [place] [address] [place] Start: 03-10-2024 Ecg routine ecg w/le ast 12 lds trcg only w/o i&r Srinivasa Poon MD Work Phone: Start: 02-25-2024 Adult depression scr eening assessment Kamlesh Acosta WOUND CARE TECHNICIAN.WAREHOUSE OPERATOR Work Phone: Start: 05-11-2023 INFLUENZA VACCINE, P RSV FREE, AGE 65+ YR, HIGH DOSE, QUADRIVALENT (FLUZONE HIGH-DOSE) Abby Mcclellan MD Work Phone: Start: 04-26-2023 Screening mammograph y bi 2-view breast inc cad Abby Mcclellan MD Work Phone: Start: 07-31-2022 Radiologic exam ches t 2 views Keily Mckinney WOUND CARE TECHNICIAN.WAREHOUSE OPERATOR Work Phone: Start: 04-25-2022 End: 04-25-[address] Abby Mcclellan Work Phone: Start: 04-20-2021 Mammography Abby pierce MD Work Phone: Start: 02-14-2021 Adult depression scr eening assessment Abby Mcclellan MD Work Phone: Start: 05-18-2020 Radiologic exam ches t 2 views Abdullahi Flannery WOUND CARE TECHNICIAN.WAREHOUSE OPERATOR Work Phone: Start: 02-10-2019 Colonoscopy Heidy holden WOUND CARE TECHNICIAN.CHILD AND ADOLESCENT PSYCHOLOGIST Work Phone: Start: 02-02-2019 Colonoscopy Abby pierce MD Work Phone: Plan of Treatment Date Care Activity Detail Author Start: 02-10-2029 Colonoscopy COLONOSCOPY [facility] Start: 02-10-2029 COLORECTAL CANCER SCREENING COLORECTAL CANCER SCREENING [facility] Start: 02-10-2029 Screening for malign ant neoplasm of colon [facility] Start: 01-11-2026 Annual PCP Team [employer] kaleb Disease Visit Annual PCP Team Chronic Disease Visit [facility] Start: 11-10-2025 Annual PCP Team [employer] Associate kaleb Disease Visit Annual PCP Team Chronic Disease Visit [facility] Start: 11-10-2025 BP Controlled (<130/80) BP Controlle d (<130/80) [facility] Start: 09-29-2025 Annual PCP Team [employer] Associate kaleb Disease Visit Annual PCP Team Chronic Disease Visit [facility] Start: 09-29-2025 BP Controlled (<130/80) BP Controlle d (<130/80) [facility] Start: 09-19-2025 Hepatitis B screening Urine Al bumin:Creatinine Ratio [facility] Start: 09-19-2025 Hepatitis B surface antibody level LDL Cholesterol [facility] Start: 06-19-2025 Glaucoma screening Dilated Retinal E xam [facility] Start: 05-21-2025 End: 04-17-2026 US Heart Transthoracic Transthoracic echocardiogram (TTE) complete with contrast, bubble, strain, and 3D PRN CV Echocardiography Routine S/P TAVR (transcatheter aortic valve replacement) Aortic valve stenosis, etiology of cardiac valve disease unspecified Expected: 05/21/2025 (Approximate), Expires: 04/17/[address] [facility] Comment on above: Expected: 05/21/2025 (Approximate), Expires: 04/17/2026 Start: 05-04-2025 Diabetes: Estimated Glomerular Filtration Rate for Kidney Health Diabetes: Estimated Glomerular Filtration Rate for Kidney Health [facility] Start: 04-08-2025 Diabetes: Estimated Glomerular Filtration Rate for Kidney Health Diabetes: Estimated Glomerular Filtration Rate for Kidney Health [facility] Start: 04-01-2025 Diabetes: Estimated Glomerular Filtration Rate for Kidney Health Diabetes: Estimated Glomerular Filtration Rate for Kidney Health [facility] Start: 03-29-2025 Influenza vaccination [facility] [employer] Start: 03-04-2025 End: 03-04-2025 Patient encounter procedure [facility] [address] Non-Invasive Card[facility] Start: 02-24-2025 Annual PCP Team [employer] kaleb Disease Visit Annual PCP Team Chronic Disease Visit [facility] Start: 02-24-2025 Anxiety Screening Anxiety Screening [facility] Start: 02-24-2025 BP Controlled (<130/80) BP Controlle d (<130/80) [facility] Start: 02-24-2025 Depression Screening Depression Scre ening [facility] Start: 02-15-2025 End: 02-15-2025 Patient encounter procedure 02/15/2025 11:00 AM EDT Office Visit [facility] [address] [place] [address] Kamlesh Acosta APRN.WAREHOUSE OPERATOR [address] [facility] [place] [address] 5 week follow up of pain and new medications [facility] Comment on above: 5 week follow up of pain and new medications Start: 01-11-2025 End: 01-11-2025 Patient encounter procedure 01/11/2025 11:20 AM EDT Office Visit Internal Medicine [place] [address] [place] [address] Kamlesh Acosta APRN.WAREHOUSE OPERATOR [address] [place] [address] 8 week follow up Internal Medicine Heidi Comment on above: 8 week follow up Start: 12-17-2024 Hemoglobin A1c measurement HbA1C [facility] Start: 11-10-2024 End: 11-10-2024 Patient encounter procedure 11/10/2024 11:20 AM EDT Office Visit Internal Medicine [place] [address] [place] [address] Kamlesh Acosta APRN.WAREHOUSE OPERATOR [address] [facility] [address] 6 week follow up Internal Medicine Heidi Comment on above: 6 week follow up Start: 10-24-2024 Annual PCP Team [employer] Ac[employer] Associate kaleb Disease Visit Annual PCP Team Chronic Disease Visit [facility] Start: 10-24-2024 BP Controlled (<130/80) BP Controlle d (<130/80) [facility] Start: 10-24-2024 Covid-19 Vaccine () Covid-19 Vaccine () [facility] Comment on above: Postponed from 03/29 (Declined at this time) Start: 10-24-2024 Diabetic foot examination Diabetic Foot Exam [facility] Start: 10-17-2024 Hepatitis B surface antibody level LDL Cholesterol [facility] Start: 09-29-2024 End: 09-29-2024 Patient encounter procedure Internal Medicine Heidi Comment on above: follow up Start: 09-12-2024 End: 12-12-2024 Comprehensive metabolic 2000 panel - Serum or Plasma COMPREHENSIVE METABOLIC PANEL Lab Routine Type 2 diabetes mellitus with other specified complication, without long-term current use of insulin (HCC) Hypertension goal BP (blood pressure) < 140/90 Expected: 09/12/2024 (Approximate), Expires: 12/12/2024 [facility] Comment on above: Expected: 09/12/2024 (Approximate), Expires: 12/12/2024 Start: 09-12-2024 End: 12-12-2024 Hemoglobin A1c in Blood HEMOGLOBIN A1C Lab Routine Type 2 diabetes mellitus with other specified complication, without long-term current use of insulin (HCC) Expected: 09/12/2024 (Approximate), Expires: 12/12/2024 [facility] Work Phone: Comment on above: Expected: 09/12/2024 (Approximate), Expires: 12/12/2024 Start: 09-12-2024 End: 12-12-2024 Lipid 1996 panel - Serum or Plasma LIPID PANEL BASIC Lab Routine Hyperlipidemia associated with type 2 diabetes mellitus (HCC) (HCC) Expected: 09/12/2024 (Approximate), Expires: 12/12/2024 [facility] Comment on above: Expected: 09/12/2024 (Approximate), Expires: 12/12/2024 Start: 09-12-2024 End: 12-12-2024 Microalbumin/Creatinine [Mass Ratio] in Urine ALBUMIN/CREATININE RATIO, URINE Lab Routine Type 2 diabetes mellitus with other specified complication, without long-term current use of insulin (HCC) Expected: 09/12/2024 (Approximate), Expires: 12/12/2024 [facility] Comment on above: Expected: 09/12/2024 (Approximate), Expires: 12/12/2024 Start: 08-21-2024 Hemoglobin A1c measurement HbA1C [facility] Start: 07-29-2024 Advance Directive Discussion Advance Directive Discussion [facility] Start: 07-29-2024 Medicare Advantage Annual Wellness Visit Medicare Advantage Annual Wellness Visit [facility] Start: 07-26-2024 Annual PCP Team [employer] Associate kaleb Disease Visit Annual PCP Team Chronic Disease Visit [facility] Start: 07-26-2024 BP Controlled (<130/80) BP Controlle d (<130/80) [facility] Start: 07-26-2024 Diabetes: Urine Albumin-Creatinine Ratio for Kidney Health Diabetes: Urine Albumin-Creatinine Ratio for Kidney Health [facility] Start: 07-26-2024 Hepatitis B screening Urine Al bumin:Creatinine Ratio [facility] Start: 07-10-2024 End: 07-10-2024 Professional / ancillary services management 07/10/2024 1:00 PM EST Ancillary Procedure [facility] [place] [address] [place] [phone] [facility] [place] Start: 06-29-2024 End: 06-29-2024 Patient encounter procedure 06/29/2024 11:20 AM EST Office Visit Internal Medicine Heidi [address] [place] [address] Heidy Hawk, WOUND CARE TECHNICIAN.CHILD AND ADOLESCENT PSYCHOLOGIST [address] [place], [place] [id number] 4 month follow up Internal Medicine Heidi Comment on above: 4 month follow up Start: 06-01-2024 End: 08-31-2024 CBC W Auto Differential panel - Blood COMPLETE BLOOD COUNT AND DIFFERENTIAL Lab Routine Encounter for therapeutic drug monitoring Expected: 06/01/2024, Expires: 08/31/2024 [facility] Work Phone: Comment on above: Expected: 06/01/2024 , Expires: 08/31/2024 Start: 06-01-2024 End: 08-31-2024 Comprehensive metabolic 2000 panel - Serum or Plasma COMPREHENSIVE METABOLIC PANEL Lab Routine Encounter for therapeutic drug monitoring Expected: 06/01/2024, Expires: 08/31/2024 [facility] Comment on above: Expected: 06/01/2024 , Expires: 08/31/2024 Start: 06-01-2024 End: 08-31-2024 Hemoglobin A1c in Blood HEMOGLOBIN A1C Lab Routine Type 2 diabetes mellitus with other specified complication, without long-term current use of insulin (HCC) Expected: 06/01/2024, Expires: 08/31/2024 [facility] Comment on above: Expected: 06/01/2024 , Expires: 08/31/2024 Start: 06-01-2024 End: 08-31-2024 Lipid 1996 panel - Serum or Plasma LIPID PANEL BASIC Lab Routine Hyperlipidemia associated with type 2 diabetes mellitus (HCC) (HCC) Expected: 06/01/2024, Expires: 08/31/2024 [facility] Comment on above: Expected: 06/01/2024 , Expires: 08/31/2024 Start: 05-29-2024 Glaucoma screening Dilated Retinal E xam [facility] Start: 05-29-2024 Hepatitis C antibody , confirmatory test Dilated Retinal Exam [facility] Start: 05-07-2024 End: 05-07-2024 Patient encounter procedure [facility] [address] [facility]-In[facility] Start: 05-07-2024 End: 05-07-2024 Professional / ancillary services management 05/07/2024 1:30 PM EDT Ancillary Procedure [facility] [place] [address] [place] [phone] [facility] [place] Start: 04-28-2024 End: 04-28-2024 Professional / ancillary services management 04/28/2024 1:00 PM EDT Ancillary Procedure [facility] [address] [place] [address] [facility] Start: 04-26-2024 Mammography Mammogram Screening [facility] Start: 04-26-2024 Screening for malign ant neoplasm of breast Mammogram Screening [facility] Start: 04-19-2024 Annual PCP Team [employer] Associate kaleb Disease Visit Annual PCP Team Chronic Disease Visit [facility] Start: 04-19-2024 BP Controlled (<130/80) BP Controlle d (<130/80) [facility] Start: 04-19-2024 Hemoglobin A1c measurement HbA1C [facility] Start: 04-17-2024 End: 04-17-2025 Basic metabolic 1998 panel - Serum or Plasma Basic metabolic panel Lab Routine Essential hypertension S/P TAVR (transcatheter aortic valve replacement) Aortic valve stenosis, etiology of cardiac valve disease unspecified Expected: 04/17/2024 (Approximate), Expires: 04/17/2025 [facility] Work Phone: Comment on above: Expected: 04/17/2024 (Approximate), Expires: 04/17/2025 Start: 04-17-2024 End: 04-17-2025 CBC W Auto Differential panel - Blood CBC auto differential Lab Routine Essential hypertension S/P TAVR (transcatheter aortic valve replacement) Aortic valve stenosis, etiology of cardiac valve disease unspecified Expected: 04/17/2024 (Approximate), Expires: 04/17/[address] [facility] Comment on above: Expected: 04/17/2024 (Approximate), Expires: 04/17/2025 Start: 04-17-2024 End: 04-17-2025 Thyrotropin [Units/volume] in Serum or Plasma TSH Lab Routine Essential hypertension S/P TAVR (transcatheter aortic valve replacement) Aortic valve stenosis, etiology of cardiac valve disease unspecified Expected: 04/17/2024 (Approximate), Expires: 04/17/[address] [facility] Comment on above: Expected: 04/17/2024 (Approximate), Expires: 04/17/2025 Start: 04-16-2024 End: 04-16-2024 Patient encounter procedure 04/16/2024 1:30 PM EDT Office Visit [facility] [address] [place] [phone] America Davis APRN - WAREHOUSE OPERATOR [address] [place] [address] [facility] Start: 04-15-2024 Hepatitis B surface antibody level LDL Cholesterol [facility] Start: 04-06-2024 End: 04-06-2024 Admission to same day surgery center 04/06/2024 11:00 AM EDT - 04/06/2024 12:45 PM EDT Surgery [facility] [address] [facility] [place] [address] Srinivasa Poon MD [address] [facility] [address] [place] [address] TRANSCATHETER AORTIC VALVE REPLACEMENT, TRANSTHORACIC ECHOCARDIOGRAM [facility] Comment on above: TRANSCATHETER AORTIC VALVE REPLACEMENT, TRANSTHORACIC ECHOCARDIOGRAM Start: 04-06-2024 End: 04-06-2024 Anesthesia consultation 04/06/2024 11:00 AM EDT Anesthesia Event [facility] [address] [facility] [place] [address] Radha Marquez, WOUND CARE TECHNICIAN - WAREHOUSE OPERATOR [address] [facility] [address] [place] [address] [facility] Start: 04-06-2024 Subsequent hospital visit by physician 04/06/2024 11:00 AM EDT Hospital Encounter [facility] [address] [facility] [place] [address] Srinivasa Poon MD [address] [facility] [address] [place], [place] [phone] Nonrheumatic aortic valve stenosis [facility] Comment on above: Nonrheumatic aortic valve stenosis Start: 04-06-2024 End: 04-06-2024 TRANSCATHETER AORTIC VALVE REPLACEMENT (TAVR) - OR TRANSCATHETER AORTIC VALVE REPLACEMENT (TAVR) - OR Nonrheumatic aortic valve stenosis 04/06/2024 11:00 AM EDT [facility] Start: 03-29-2024 COVID-19 Vaccine ( season) COVID-19 Vaccine ( season) [facility] Start: 03-29-2024 Covid-19 Vaccine ( season) Covid-19 Vaccine () [facility] Start: 03-29-2024 Influenza vaccination Influenza Vacc ine (#1) [facility] Start: 12-18-2023 ANNUAL PCP TEAM PRODUCTION LINE OPERATOR KALEB DISEASE VISIT ANNUAL PCP TEAM CHRONIC DISEASE VISIT [facility] Start: 12-18-2023 BP CONTROLLED (<130/80) BP CONTROLLE D (<130/80) [facility] Start: 12-13-2023 Hepatitis B surface antibody level LDL CHOLESTEROL [facility] Start: 10-25-2023 Hemoglobin A1c measurement HbA1C [facility] Start: 08-14-2023 ANNUAL PCP TEAM PRODUCTION LINE OPERATOR KALEB DISEASE VISIT ANNUAL PCP TEAM CHRONIC DISEASE VISIT [facility] Start: 08-06-2023 Hepatitis B screening URINE AL BUMIN:CREATININE RATIO [facility] Start: 08-06-2023 Hepatitis B surface antibody level LDL CHOLESTEROL [facility] Start: 07-31-2023 BP CONTROLLED (<130/80) BP CONTROLLE D (<130/80) [facility] Start: 07-29-2023 Advance Directive Discussion Advance Directive Discussion [facility] Start: 07-29-2023 Behavioral Health Screening Behavioral Health Screening [facility] Start: 07-29-2023 Depression Assessment Depression Ass essment [facility] Start: 07-29-2023 Medicare Advantage Annual Wellness Visit Medicare Advantage Annual Wellness Visit [facility] Start: 07-15-2023 Hemoglobin A1c measurement HbA1C [facility] Start: 07-15-2023 Hemoglobin A1c/Hemoglobin.total in Blood HbA1C [facility] Start: 2023 Hemoglobin A1c/Hemoglobin.total in Blood HBA1C [facility] Start: 2023 RSV Immunization for Adults (1 - 1-dose 75+ series) RSV Immunization for Adults (1 - 1-dose 75+ series) [facility] Start: 2023 RSV Vaccine (1 - 1-d ose 75+ series) RSV Vaccine (1 - 1-dose 75+ series) [facility] Start: 04-25-2023 Mammography [facility] Start: 04-18-2023 ANNUAL PCP TEAM PRODUCTION LINE OPERATOR KALEB DISEASE VISIT ANNUAL PCP TEAM CHRONIC DISEASE VISIT [facility] Start: 04-18-2023 BP CONTROLLED (<130/80) BP CONTROLLE D (<130/80) [facility] Start: 04-18-2023 COVID-19 VACCINE (#1) COVID-19 VACCI NE (#1) [facility] Comment on above: Postponed from 12/12 (Declined at this time) Start: 04-18-2023 SHINGRIX VACCINE (1 of 2) SHINGRIX VACCINE (1 of 2) [facility] Comment on above: Postponed from 06/14 (Declined at this time) Start: 04-18-2023 Urine microalbumin profile DTAP,TDAP,TD (1 - Tdap) [facility] Comment on above: Postponed from 09/07 (Declined at this time) Start: 04-03-2023 Hepatitis C antibody , confirmatory test DILATED RETINAL EXAM [facility] Start: 03-29-2023 Covid-19 Vaccine ( season) Covid-19 Vaccine ( season) [facility] Start: 03-29-2023 Influenza vaccination Influenza Vacc ine (#1) [facility] Start: 02-03-2023 Hemoglobin A1c/Hemoglobin.total in Blood HBA1C [facility] Start: 12-07-2022 BP CONTROLLED (<130/80) BP CONTROLLE D (<130/80) [facility] Start: 10-10-2022 Hemoglobin A1c/Hemoglobin.total in Blood HBA1C [facility] Start: 09-06-2022 ANNUAL PCP TEAM PRODUCTION LINE OPERATOR KALEB DISEASE VISIT ANNUAL PCP TEAM CHRONIC DISEASE VISIT [facility] Start: 08-28-2022 Hepatitis B screening URINE AL BUMIN:CREATININE RATIO [facility] Start: 08-18-2022 End: 10-18-2022 ALBUMIN/CREAT RATIO RND UR ALBUMIN/CREAT RATIO RND UR Lab Routine Controlled type 2 diabetes mellitus without complication, without long-term current use of insulin (HCC) Expected: 08/18/2022 (Approximate), Expires: 10/18/2022 [facility] Work Phone: Comment on above: Expected: 08/18/2022 (Approximate), Expires: 10/18/2022 Start: 08-18-2022 End: 10-18-2022 CBC panel - Blood by Automated count CBC Lab Routine Controlled type 2 diabetes mellitus without complication, without long-term current use of insulin (HCC) Essential hypertension Expected: 08/18/2022 (Approximate), Expires: 10/18/2022 [facility] Work Phone: Comment on above: Expected: 08/18/2022 (Approximate), Expires: 10/18/2022 Start: 08-18-2022 End: 10-18-2022 Comprehensive metabolic 2000 panel - Serum or Plasma COMP METABOLIC PANEL Lab Routine Controlled type 2 diabetes mellitus without complication, without long-term current use of insulin (HCC) Essential hypertension Expected: 08/18/2022 (Approximate), Expires: 10/18/2022 [facility] Work Phone: Comment on above: Expected: 08/18/2022 (Approximate), Expires: 10/18/2022 Start: 08-18-2022 End: 10-18-2022 Hemoglobin A1c in Blood HGB A1C Lab Routine Controlled type 2 diabetes mellitus without complication, without long-term current use of insulin (HCC) Expected: 08/18/2022 (Approximate), Expires: 10/18/2022 [facility] Work Phone: Comment on above: Expected: 08/18/2022 (Approximate), Expires: 10/18/2022 Start: 08-18-2022 End: 10-18-2022 Lipid 1996 panel - Serum or Plasma LIPID PANEL BASIC Lab Routine Controlled type 2 diabetes mellitus without complication, without long-term current use of insulin (HCC) Essential hypertension Expected: 08/18/2022 (Approximate), Expires: 10/18/2022 [facility] Work Phone: Comment on above: Expected: 08/18/2022 (Approximate), Expires: 10/18/2022 Start: 07-29-2022 ADVANCE DIRECTIVE DISCUSSION ADVANCE DIRECTIVE DISCUSSION [facility] Start: 07-29-2022 DEPRESSION ASSESSMENT DEPRESSION ASS ESSMENT [facility] Start: 07-10-2022 SHINGRIX VACCINE (2 of 2) SHINGRIX VACCINE (2 of 2) [facility] Start: 07-03-2022 Hzv zoster vacc recombinant adjuvanted im njx ZOSTER VACC RECOMBINANT,IM Immunization/Injection Routine Need for vaccination Expected: 07/03/2022 (Approximate) [facility] Work Phone: Comment on above: Expected: 07/03/2022 (Approximate) Start: 04-20-2022 Mammography MAMMOGRAM [facility] Start: 03-29-2022 Influenza vaccination INFLUENZA (#1) [facility] Start: 03-06-2022 Hemoglobin A1c/Hemoglobin.total in Blood HBA1C [facility] Start: 02-14-2022 3 comp foot exam completed DIABETIC FOOT EXAM [facility] Start: 02-14-2022 Adult depression screening assessment DEPRESSION SCREENING [facility] Start: 02-14-2022 COVID-19 VACCINE (#1) COVID-19 VACCI NE (#1) [facility] Comment on above: Postponed from 06/14 (Declined at this time) Start: 02-14-2022 Diabetic foot examination Diabetic Foot Exam [facility] Start: 02-10-2022 Hepatitis B surface antibody level LDL CHOLESTEROL [facility] Start: 02-02-2022 Colonoscopy COLONOSCOPY [facility] Start: 02-02-2022 COLORECTAL CANCER SCREENING COLORECTAL CANCER SCREENING [facility] Start: 07-29-2021 ADVANCE DIRECTIVE DISCUSSION ADVANCE DIRECTIVE DISCUSSION [facility] Start: 07-29-2021 DEPRESSION ASSESSMENT DEPRESSION ASS ESSMENT [facility] Start: 03-10-2021 Hepatitis C antibody , confirmatory test DILATED RETINAL EXAM [facility] Start: 09-07-2011 DTaP/Tdap/Td Vaccine s (1 - Tdap) DTaP/Tdap/Td Vaccines (1 - Tdap) [facility] Start: 09-07-2011 Urine microalbumin profile [facility] Start: 2008 Hepatitis B Vaccine (1 of 3 - Risk 3-dose series) Hepatitis B Vaccine (1 of 3 - Risk 3-dose series) [facility] Start: 2008 RSV Immunization age d 60 or older (1 - 1-dose 60+ series) RSV Immunization aged 60 or older (1 - 1-dose 60+ series) [facility] Start: 2008 RSV Vaccine (1 - 1-d ose 60+ series) RSV Vaccine (1 - 1-dose 60+ series) [facility] Start: 1998 SHINGRIX VACCINE (1 of 2) SHINGRIX VACCINE (1 of 2) [facility] Start: 1993 COLOGUARD (FIT-DNA) COLOGUARD (FIT-D NA) [facility] Start: [address] COLONOGRAPHY [facility] Start: 1993 FECAL OCCULT BLOOD FECAL OCCULT BLOO D [facility] Start: 1993 Screening for malign ant neoplasm of colon [facility] Start: 1993 SIGMOIDOSCOPY SIGMOIDOSCOPY [facility] Start: 1966 BP CONTROLLED (<130/80) BP CONTROLLE D (<130/80) [facility] Start: 1966 Diabetes: Estimated Glomerular Filtration Rate for Kidney Health Diabetes: Estimated Glomerular Filtration Rate for Kidney Health [facility] Start: 1966 Hepatitis C screening Hepatitis C Sc reening [facility] Start: 1960 Depression Screening Depression Scre ening [facility] Start: 1958 Glaucoma screening Diabetes: R etinopathy Screening [facility] Start: 1948 Covid-19 Vaccine (#1) Covid-19 Vacci ne (#1) [facility] Start: 1948 Screening for malign ant neoplasm of colon [facility] Start: 1948 Screening for osteoporosis Bone Density Scan [facility] End: 03-10-2024 CT Chest WO and CT angiogram Coronary arteries W contrast IV [facility] Work Phone: Comment on above: Once for 1 Occurrenc es starting 03/10/2024 until 03/10/2024 ECG 12 lead - CLINIC PERFORMED ECG 12 lead - CLINIC PERFORMED CV ECG Routine PAF (paroxysmal atrial fibrillation) (HCC) 03/10/2024 3:05 PM [facility]T [facility]: ECG 12 lead - CLINIC PERFORMED ECG 12 lead - CLINIC PERFORMED CV ECG Routine Essential hypertension 04/17/2024 1:10 PM EDT [facility] Work [facility]: ECG 12 lead - CLINIC PERFORMED ECG 12 lead - CLINIC PERFORMED CV ECG Routine Severe aortic stenosis 05/07/2024 3:40 PM EDT [facility] Work Phone: Hzv zoster vacc recombinant adjuvanted im njx ZOSTER VACC RECOMBINANT,IM Immunization/Injection Routine Need for vaccination Ordered: 05/04/2022 [facility] Work Phone: Comment on above: Ordered: 05/04/2022 End: 05-18-2023 Screening mammography bi 2-view breast inc cad DAVID SCREENING Radiology Routine Encounter for screening mammogram for breast cancer 1 Occurrences starting 04/18/2022 until 05/18/2023 [facility] Work Phone: Comment on above: 1 Occurrences starti ng 04/18/2022 until 05/18/2023 [facility] Immunizations Immunization Date Immunization Notes Care Provider Chelsie barry 09-29-2024 influenza, high dose seasonal, preservative-free Kamlesh Acosta WOUND CARE TECHNICIAN.WAREHOUSE OPERATOR Work Phone: [facility] 09-29-2024 influenza virus vaccine, unspecified formulation Abby Mcclellan MD Work Phone: [facility] 05-11-2023 influenza (HD-IIV4) vaccine, age 65+ yr, high dose, quadrivalent, PF (FLUZONE HIGH-DOSE) Immunization [place] Work Phone: [facility] 05-11-2023 influenza virus vaccine, unspecified formulation Kamlesh Acosta WOUND CARE TECHNICIAN.WAREHOUSE OPERATOR Work Phone: [facility] 08-14-2022 zoster vaccine recombinant Abby Mcclellan MD Work Phone: [facility] 05-19-2022 influenza, high-dose , quadrivalent vaccine (FLUZONE HIGH DOSE QUADRIVALENT) Keily Mckinney WOUND CARE TECHNICIAN.WAREHOUSE OPERATOR Work Phone: [facility] 05-19-2022 influenza virus vaccine, unspecified formulation Kamlesh Acosta WOUND CARE TECHNICIAN.WAREHOUSE OPERATOR Work Phone: [facility] 05-15-2022 zoster vaccine recombinant Mi Nurse Work Phone: [facility] Work Phone: 06-03-2021 influenza, high-dose , quadrivalent vaccine (FLUZONE HIGH DOSE QUADRIVALENT) Abby Mcclellan MD Work Phone: [facility] 07-01-2020 influenza, high-dose , quadrivalent vaccine (FLUZONE HIGH DOSE QUADRIVALENT) Abby Mcclellan MD Work Phone: [facility] 05-27-2019 influenza, high dose seasonal, preservative-free Abby Mcclellan MD Work Phone: [facility] 05-12-2018 influenza, high dose seasonal, preservative-free Abby Mcclellan MD Work Phone: [facility] 05-08-2017 influenza, high dose seasonal, preservative-free Abby Mcclellan MD Work Phone: [facility] 12-31-2016 pneumococcal polysaccharide vaccine, 23 valent Abby Mcclellan MD Work Phone: [facility] 06-27-2016 influenza, high dose seasonal, preservative-free Abby Mcclellan MD Work Phone: [facility] 11-07-2015 pneumococcal conjuga te vaccine, 13 valent Abby Mcclellan MD Work Phone: [facility] 05-29-2015 influenza, injectabl e, quadrivalent, preservative free Kamlesh Acosta APRN.CNP Work Phone: [facility] 05-29-2015 influenza, seasonal, injectable Dr. Abby Mcclellan Work Phone: [facility] 05-25-2015 influenza, high dose seasonal, preservative-free Abby Mcclellan MD Work Phone: [facility] 08-10-2013 influenza virus vaccine, unspecified formulation Abby Mcclellan MD Work Phone: [facility] 05-19-2012 influenza virus vaccine, unspecified formulation Abby Mcclellan MD Work Phone: [facility] 09-06-2011 tetanus and diphther ia toxoids, adsorbed, preservative free, for adult use (2 Lf of tetanus toxoid and 2 Lf of diphtheria toxoid) Abby Mcclellan MD Work Phone: [facility] Work Phone: 07-25-2011 influenza virus vaccine, unspecified formulation Abby Mcclellan MD Work Phone: [facility] 05-16-2010 influenza virus vaccine, unspecified formulation Abby Mcclellan MD Work Phone: [facility] 05-10-2008 influenza virus vaccine, unspecified formulation Abby Mcclellan MD Work Phone: [facility] 07-08-2007 influenza virus vaccine, unspecified formulation Abby Mcclellan MD Work Phone: [facility] 04-16-2006 tetanus and diphther ia toxoids, adsorbed, preservative free, for adult use (2 Lf of tetanus toxoid and 2 Lf of diphtheria toxoid) Abby Mcclellan MD Work Phone: [facility] Work Phone: Payers Date Payer Category Payer Self-pay [id number] 2022 Medicare (Managed Care) [facility] [id number] 2022 Medicare HMO [employer] MEDICARE [id number] 2022 Medicare [id number] 2021 Medicare HUMANA MEDICARE HU[employer]NA MEDICARE PPO [id number] 2021-Present [phone] [address] [address] [place] [address] PPO [id number] 2017 Medicare [id number] 2014 Unknown [id number] Unknown [id number] Unknown [id number] [id number] Unknown [id number]. [id number] Unknown [id number]. [id number] Unknown [id number] 2.462 Unknown [id number]. 2.462 Unknown [id number]. 2.462 Unknown [id number]. 2.462 Unknown [id number] 2.462 Unknown [id number] [id number] Social History Date Type Detail Facility Start: 11-01-2021 End: 02-12-2022 Tobacco smoking status NHIS Unknown if ever smoked [facility] Work Phone: Start: 12-02-2019 None [facility] Start: 12-02-2019 Spouse/ Signif icant Other [facility] Start: 11-20-2019 Non-smoker [facility] Start: 1950 Sex Assigned At Female W [facility] Start: 12-15-2010 End: 01-20-2024 Tobacco smoking status NHIS Never smoked tobacco [facility] Work Phone: Start: 02-14-2021 End: 01-11-2025 Alcohol intake Current non-drinker of alcohol (finding) [facility] Start: 1950 Sex Assigned At Not on file [facility] Start: 04-18-2020 End: 04-26-2022 Exposure to SARS-CoV-2 (event) Not sure [facility] Work Phone: Start: 12-15-2010 End: 03-03-2024 Tobacco use and exposure Smokeless tobacco non-user [facility] Work Phone: Start: 12-17-2022 End: 04-19-2023 History of Social function [facility] Work Phone: Start: 12-17-2022 End: 04-19-2023 Tobacco use panel [facility] Work Phone: Adult Depression Screening Assessment 0 [facility] Work Phone: Start: 03-10-2024 End: 05-07-2024 Alcoholic beverage intake Lifetime non-drinker (finding) [employer] Start: 02-07-2024 Sex Female (finding) [facility] [employer] Procedure Code Equipment Code Equipment [...] Lancets-Blood Glucose Strips Start: 09-21-2015 End: 10-25-2017 [id number], [id number], [id number], [id number] Start: 09-22-2015 End: 01-11-2025 Comment on above: Test blood sugar(s) 4 times daily. Dx: Type 2 DM - Uncontrolled E11.65 Insulin: Yes; Accucheck [facility] Medical: [phone] Test blood sugar(s) 4 times daily. Dx: Type 2 DM - Uncontrolled E11.65 Insulin: Yes Test blood sugar(s) 1 time daily as directed. Dx: Type 2 DM - Controlled E11.9 Insulin: No Lancets-Blood Glucose Strips Start: 09-21-2015 End: 10-25-2017 Lead Pacing Tendril Sts 58cm - [id number] - [id number] Start: 04-07-2024 Lead Pacing Tendril Sts 52cm - [id number] - [id number] Start: 04-07-2024 Pacer Assurity D r Rf Jovon - [id number] - [id number] Start: 04-07-2024 Valve Aor Makenzie 3 Ultra 23mm - [id number] - [id number] Start: 04-06-2024 Comment on above: Description: [id number] Lancets-Blood Glucose Strips 1 EACH combo [...] 2:54 PM EDT Chely Burger LPN No [facility] 03-01-2015 Are you blind, or do you have serious difficulty seeing, even when wearing glasses No 03/01/2015 2:54 PM EDT Chely Burger LPN No [facility] 03-01-2015 Do you have serious difficulty walking or climbing stairs Yes 03/01/2015 2:54 PM EDT Chely Burger LPN Yes [facility] 03-01-2015 Do you have difficul ty dressing or bathing No 03/01/2015 2:54 PM EDT Chely Burger LPN No [facility] 03-01-2015 Because of a physica l, mental, or emotional condition, do you have difficulty doing errands alone such as visiting a physician's office or shopping No 03/01/2015 2:54 PM EDT Chely Burger LPN No [facility] Mental Status Date Assessment Result Facility 03-01-2015 Because of a physica l, mental, or emotional condition, do you have serious difficulty concentrating, remembering, or making decisions No 03/01/2015 2:54 PM EDT Chley Burger LPN No [facility] Clinical Notes 08-29-2015 to 02-15-2025 Telephone Encounter [...] Keisha Petersen February 15, 2025 11:17 AM [facility] 02-15-2025 Miscellaneous Notes Formattin g of this [...] 2025 11:17 AM documented in this encounter [facility] 02-09-2025 Telephone encount er Note Pt's last [...] a refill on her Ozempic sent to [facility] in [place]. Due to constipation issues, pt is still only taking 0.25 mg weekly. So pt does not want to increase dosage. She would like this script to be sent to [facility] too but currently she [facility] is [facility]. [facility] 02-09-2025 Miscellaneous Notes Formattin g of this note might be different from the original. Pt's last appt was 01/11 with Kamlesh and next appt 02/15 with Kamlesh. Pt calling in stating [facility] has been telling her that she needs to contact her provider's office to get refills on her Metformin. It appears in med history that pt was originally taking 2 tablets by mouth 2 times daily but then in September of this year, it was updated to take 1 tablet by mouth 2 times a day. Last script was sent to [facility] on 08/19/24 but would have originally only been a 4 month supply but since pt decreased down to 1 tab 2 times a day, the script lasted her longer. Pt also states she needs a refill on her Ozempic sent to [facility] in [place]. Due to constipation issues, pt is still only taking 0.25 mg weekly. So pt does not want to increase dosage. She would like this script to be sent to [facility] too but currently she needs at least a one month supply to [facility] as she is out of medication. documented in this encounter [facility] 02-08-2025 Procedure note [facility] 02-08-2025 Evaluation note Diagnosis Onset Date Resolution [...] (valve) stenosis chronic February 08, 2025 10:09am [facility] Work Phone: [phone] Telephone encounter Note* Telephone Encounter - Loretta Guerin RN - 01/11/2025 12:24 PM EDT Patient saw Kamlesh today 01/11/2025. Loretta Guerin RN [facility]06-16-2025 Miscellaneous Notes* Telephone Encounter - Loretta Guerin [...] advise, Loretta Guerin RN documented in this encounterKindred Hospital [facility]06-16-2025 NoteHNO ID: [id number] Author: KAMLESH ACOSTA APRN.WAREHOUSE OPERATOR Service: ? Author Type: Nurse Practitioner Type: [...] - 02/25/2024 Paf (Paroxysmal Atrial Fibrillation) (Formerly [facility]) - 12/07/2021 Comment: [facility] Nonrheumatic Aortic Valve Stenosis - 12/07/2021 Comment: [facility], echo 2021 [facility] Status Post Right Hip Replacement - 12/23/2019 Difficulty in Walking Involving Lower Leg Joint Acid Indigestion - 03/26/2016 Polycythemia, Secondary - 03/28/2011 Comment: This was abnormal, seen by , testing was normal. Generalized Osteoarthrosis, Involving Multiple Sites - 05/10/2008 Diabetes Mellitus (Formerly [facility]) - 10/20/2007 Hypertension Goal Bp (Blood Pressure) < 140/90 - 10/12/2005 Hyperlipidemia Associated With Type 2 Diabetes Mellitus (Formerly [facility]) - 10/12/2005 Class 3 Severe Obesity Due to Excess Calories With Body Mass Index (Bmi) of 45.0 to 49.9 in Adult (Formerly [facility]) Social History Tobacco Use Smoking status: Never [...] Psychiatric: Attention and Perception: (more content not included)...[facility]06-16-2025 History of Present illness Narrative* Kamlesh Acosta APRN.WAREHOUSE OPERATOR - 01/11/2025 11:17 AM EDT SUBJECTIVE Lito [...] - 02/25/2024 Paf (Paroxysmal Atrial Fibrillation) (Formerly [facility]) - 12/07/2021 Comment: [facility] Nonrheumatic Aortic Valve Stenosis - 12/07/2021 Comment: [facility], echo 2021 [facility] Status Post Right Hip Replacement - 12/23/2019 Difficulty in Walking Involving Lower Leg Joint Acid Indigestion - 03/26/2016 Polycythemia, Secondary - 03/28/2011 Comment: This was abnormal, seen by , testing was normal. Generalized Osteoarthrosis, Involving Multiple Sites - 05/10/2008 Diabetes Mellitus ([facility]) - 10/20/2007 Hypertension Goal Bp (Blood Pressure) < 140/90 - 10/12/2005 Hyperlipidemia Associated With Type 2 Diabetes Mellitus ([facility]) - 10/12/2005 Class 3 Severe Obesity Due to Excess Calories With Body Mass Index (Bmi) of 45.0 to 49.9 in Adult ([facility]) Social History Tobacco Use Smoking status: Never [...] medication.. Kamlesh Acosta APRN-DANILO documented in this encounterKind[facility]06-[facility]-2025 Telephone encounter Note * Telephone Encounter - Loretta Guerin RN - 01/07/2025 12:05 PM EDT Patient calls and states that she has appointment with Kamlesh on 01/11/2025. Patient is asking about labs to be done prior to appointment? Please review and advise, Loretta Guerin RN [facility]06-12-2025 History of Present illness Narrative* Nu Bruce [facility] - 01/07/2025 11:47 AM EDT Primary [...] elevated. Nu Bruce RPh documented in this encounterKindred Hospital [facility]06-12-2025 NoteHNO ID: [id number] Author: NU BRUCE RPh Service: ? Author [...] if repeat A1c returns elevated. [facility] NotePatient Outreach (PHMEWO) LITO GONZALEZ ([id number]) 1950 F Date Time Provider Department 01/07/25 [...] if repeat A1c returns elevated. Nu Bruce [facility] Allergies As of Date: 01/07/2025 Noted Allergy Reaction LIPITOR (ATORVASTATIN) 06/27/2016 2 - Rash Comments: red itchy rash around neck--resolved after stopping med; hands froze with stiffness that started a week after taking a couple pills--resolving Date Reviewed: 11/10/2024 Reviewed by: Kamlesh Acosta APRN.WAREHOUSE OPERATOR - Fully Assessed Prescriptions as of 01/07/2025 [...] 09/29/2024 Encounter Status:Closed by NU BRUCE on 01/07/25[facility] 01-01-2025 NoteHNO ID: [id number] Author: DESHAWN WEAVER MA Service: ? Author Type: Hospital Food Service Worker Type: Progress Notes Filed: 01/01/2025 15:51 Note [...] Deshawn Weaver MA January 01, 2025 3:49 [facility]06-06-2025 History of Present illness Narrative* Deshawn [...] 01, 2025 3:49 PM documented in this encounterKindred [facility]06-[facility]-2025 NotePatient Outreach (NETNAV) LITO GONZALEZ ([id number]) 1950 F Date Time Provider Department 01/01/25 [...] Date Reviewed: 11/10/2024 Reviewed by: Kamlesh Acosta APRN.WAREHOUSE OPERATOR - Fully Assessed Reason for Visit: Population [...] 09/29/2024 Encounter Status:Closed by DESHAWN WEAVER on 01/01/25[facility] 11-10-2024 NoteHNO ID: [id number] Author: KAMLESH ACOSTA APRN.[facility] Service: ? Author Type: Nurse Practitioner [...] - 02/25/2024 Paf (Paroxysmal Atrial Fibrillation) (Formerly [facility]) - 12/07/2021 Comment: [facility] Nonrheumatic Aortic Valve Stenosis - 12/07/2021 Comment: [facility], echo 2021 [facility] Status Post Right Hip Replacement - 12/23/2019 Difficulty in Walking Involving Lower Leg Joint Acid Indigestion - 03/26/2016 Polycythemia, Secondary - 03/28/2011 Comment: This was abnormal, seen by , testing was normal. Generalized Osteoarthrosis, Involving Multiple Sites - 05/10/2008 Diabetes Mellitus ([facility]) - 10/20/2007 Hypertension Goal Bp (Blood Pressure) < 140/90 - 10/12/2005 Hyperlipidemia Associated With Type 2 Diabetes Mellitus ([facility]) - 10/12/2005 Class 3 Severe Obesity Due to Excess Calories With Body Mass Index (Bmi) of 45.0 to 49.9 in Adult ([facility]) Social History Tobacco Use Smoking status: Never [...] No focal deficit p (more content not included)...[facility]04-15-2025 History of Present illness Narrative* Kamlesh Acosta APRN.WAREHOUSE OPERATOR - 11/10/2024 11:30 AM EDT SUBJECTIVE Lito [...] - 02/25/2024 Paf (Paroxysmal Atrial Fibrillation) (Former[facility]) - 12/07/2021 Comment: [facility] Nonrheumatic Aortic Valve Stenosis - 12/07/2021 Comment: [facility], echo 2021 [facility] Status Post Right Hip Replacement - [...] of 45.0 to 49.9 in Adult ([facility]) Social History Tobacco Use Smoking status: Never [...] hyperglycemia, without long-term current use of insulin ([facility]) - ICD9: 250.00, 790.29, ICD10: E11.65 (primary [...] follow up. FRANCISCO Brown documented in this encounterKindred Hospital [facility]03-04-2025 NoteHNO ID: [id number] Author: KAMLESH ACOSTA APRN.CNP Service: ? Author [...] since she is post pacemaker placement. Seeing [facility] for cardiology follow up. She had [...] - 02/25/2024 Paf (Paroxysmal Atrial Fibrillation) (Former[facility]) - 12/07/2021 Comment: [facility] Nonrheumatic Aortic Valve Stenosis - 12/07/2021 Comment: [facility], echo 2021 [facility] Status Post Right Hip Replacement - 12/23/2019 Difficulty in Walking Involving Lower Leg Joint Acid Indigestion - 03/26/2016 Polycythemia, Secondary - 03/28/2011 Comment: This was abnormal, seen by , testing was normal. Generalized Osteoarthrosis, Involving Multiple Sites - 05/10/2008 Diabetes Mellitus ([facility]) - 10/20/2007 Hypertension Goal Bp (Blood Pressure) < 140/90 - 10/12/2005 Hyperlipidemia Associated With Type 2 Diabetes Mellitus ([facility]) ([facility]) - 10/12/2005 Class 3 Severe Obesity Due to Excess Calories With Body Mass Index (Bmi) of 45.0 to 49.9 in Adult ([facility]) Social History Tobacco Use Smoking status: Never [...] No focal deficit pres (more content not included)...[facility]03-04-2025 History of Present illness Narrative* Kamlesh Acosta APRN.WAREHOUSE OPERATOR - 09/29/2024 12:08 PM EST SUBJECTIVE Lito [...] since she is post pacemaker placement. Seeing [facility] for cardiology follow up. She [...] - 02/25/2024 Paf (Paroxysmal Atrial Fibrillation) ([facility]) - 12/07/2021 Comment: [facility] Nonrheumatic Aortic Valve Stenosis - 12/07/2021 Comment: [facility], echo 2021 [facility] Status Post Right Hip Replacement - 12/23/2019 Difficulty in Walking Involving Lower Leg Joint Acid Indigestion - 03/26/2016 Polycythemia, Secondary - 03/28/2011 Comment: This was abnormal, seen by , testing was normal. Generalized Osteoarthrosis, Involving Multiple Sites - 05/10/2008 Diabetes Mellitus ([facility]) - 10/20/2007 Hypertension Goal Bp (Blood Pressure) < 140/90 - 10/12/2005 Hyperlipidemia Associated With Type 2 Diabetes Mellitus ([facility]) ([facility]) - 10/12/2005 Class 3 Severe Obesity Due to Excess Calories With Body Mass Index (Bmi) of 45.0 to 49.9 in Adult ([facility]) Social History Tobacco Use Smoking status: Never [...] hyperglycemia, without long-term current use of insulin ([facility]) - ICD9: 250.00, 790.29, ICD10: E11.65 (primary [...] associated with type 2 diabetes mellitus (HCC) ([facility]) - ICD9: 250.80, 272.4, ICD10: E11.69, E78.5 [...] medication.. Kamlesh Acosta APRN-DANILO documented in this encounterKindred Hospital [facility]02-26-2025 Telephone encounter Note * Telephone Encounter - Abby Mcclellan MD - 09/23/2024 1:13 PM EST The following approved medication requests have been transmitted electronically. Requested Prescriptions Pending Prescriptions Disp Refills glimepiride (AMARYL) 4 mg tablet 180 tablet 1 Sig: Take 1 tablet by mouth two times a day with meals. Abby Mcclellan MD [facility]02-26-2025 Miscellaneous Notes* Telephone Encounter - Abby Mcclellan [...] 21, 2024 1:37 PM documented in this encounterKindred Hospital [facility]02-24-2025 Telephone encounter Note * Telephone Encounter - [...] Patricia Cuenca September 21, 2024 1:37 PM [facility]01-22-2025 Telephone encounter Note* Telephone Encounter - Abby Mcclellan MD - 08/19/2024 6:11 PM EST Labs set to August to for September appointment Included UACR [facility]01-22-2025 Miscellaneous Notes* Telephone Encounter - Abby Mcclellan [...] calling: self Call patient at: at home [phone] (home) [phone] (cell) Was an appointment scheduled: Yes: Date/Time: 09-29-24 Closing statement: Barbara Clements documented in this encounterKindred Hospital [facility]01-22-2025 Telephone encounter Note * Telephone Encounter - Abby Mcclellan MD - 08/19/2024 1:04 PM EST The following approved medication requests have been transmitted electronically. Requested Prescriptions Pending Prescriptions Disp Refills metFORMIN (GLUCOPHAGE) 500 mg tablet 180 tablet 3 Sig: Take 2 tablets by mouth two times a day with meals. Abby Mcclellan MD [facility]01-22-2025 Miscellaneous Notes* Telephone Encounter - Abby Mcclellan [...] 18, 2024 12:53 PM documented in this encounterKindred Hospital [facility]01-21-2025 Telephone encounter Note * Telephone Encounter - Barbara Duran - 08/18/2024 12:52 PM EST Lito is calling Abby Mcclellan MD today to request Lab Orders (September appointment) Patient has been identified by name and birthdate. Duration of symptoms: N/A Person calling: self Call patient at: at home [phone] (home) [phone] (cell) Was an appointment scheduled: Yes: Date/Time: 09-29-24 Closing statement: Barbara Ruiz Jay Clements [facility] Work Phone: 1(901) 300-989601-21-2025 Telephone encounter Note* Telephone Encounter - Barbara [...] Jay Clements August 18, 2024 12:53 PM [facility] Work Phone: 1(369) 210-393511-15-2024 Telephone encounter Note* Telephone Encounter - Sadiq Babcock - 06/12/2024 1:54 PM EST 3 attempts have no been made to reach patient. She can reach us at [phone] M-F 8-5. We will continue to reach out as well. [facility] [id number] Miscellaneous Notes* Telephone Encounter - Sadiq Babcock - 06/12/2024 1:54 PM EST 3 attempts have no been made to reach patient. She can reach us at [phone] M-F 8-5. We will continue to reach [...] further outreaches. Thank you! documented in this encounterSDoctors HospitalSvsqci48-33-3728 Telephone encounter Note* Telephone Encounter - Theresa Felipe - 05/27/2024 2:33 PM EDT Prior Auth was required and has been approved through 07/28/2025. I attempted to reach the patient to inform of authorization and offer [facility] services but no one answered and VM was is full. Will continue to make further outreaches. Thank you! [facility] [id number] Telephone encounter Note* Telephone Encounter - Polly [...] 2 weeks. Gloria Davis to route RX. [facility] [id number] Miscellaneous Notes* Telephone Encounter - Polly Coleman [...] tablet [facility] verified documented in this encounterSDoctors [id number] Telephone encounter Note* Telephone Encounter - Charlotte Godinez - 05/19/2024 10:29 AM EDT Requesting refill apixaban (Eliquis) 5 MG tablet [facility] [place] verified [facility] [id number] History of Present illness Narrative* America Davis APRN - WAREHOUSE OPERATOR - 05/07/2024 3:00 PM EDT Images from the original note were not included. [facility] - [address] [address] Dept: [phone] Dept Loc: [phone] Reason for Visit: 1 Month Follow Up [...] 1 tablet in the evening.Take with meals. Ttuubdvyoii-Oojlrlnjg-Vdq C-Mn (GLUCOSAMINE 1500 COMPLEX PO) Take by [...] 04/06/2024 Performed by Srinivasa Poon MD at [facility] OR CARDIAC ELECTROPHYSIOLOGY PROCEDURE N/A 04/07/2024 Performed by Eric Okeefe MD at [facility] Cardiac Cath/EP Lab HYSTERECTOMY TOTAL HIP ARTHROPLASTY [...] % MILDRED Ceja CNP documented in this [facility]10-10-2024 History of Present illness Narrative* MILDRED Fuentes CNP - 05/07/2024 3:00 PM EDT Images from the original note were not included. [facility] - [place] [address] [facility] [address] Dept: [phone] Dept Loc: [phone] Reason for Visit: 1 Month Follow Up [...] 04/06/24 -will follow with device clinic at [facility] Follow up for Dr. Hubbard [...] 1 tablet in the evening.Take with meals. Ckvwcmygaua-Ygyepaerd-Vxd C-Mn (GLUCOSAMINE 1500 COMPLEX PO) Take by [...] 04/06/2024 Performed by Srinivasa Poon MD at [facility] OR CARDIAC ELECTROPHYSIOLOGY PROCEDURE N/A 04/07/2024 Performed by Eric Okeefe MD at [facility] Cardiac Cath/EP Lab HYSTERECTOMY TOTAL HIP ARTHROPLASTY [...] Final MILDRED Ceja CNP documented in this [facility]10-10-2024 Evaluation + Plan note* Assessment & Plan Note - MILDRED Fuentes CNP - 05/07/2024 10:31 AM EDT Associated Problem(s): Essential hypertension Well controlled on current doses of losartan and metoprolol succinate [facility] [id number] Evaluation + Plan note* Assessment & Plan [...] and 30 dayfree card given to patient [facility] [id number] Miscellaneous Notes* Assessment & Plan Note - [...] SBE prophylaxis -Cardiac Rehab documented in this [facility]10-10-2024 Miscellaneous Notes* Assessment & Plan Note - [...] 04/06/24 -will follow with device clinic at [facility] * Assessment & Plan Note - MILDRED Fuentes CNP - 05/07/2024 10:13 AM EDT Associated Problem(s): Severe aortic stenosis S/p TAVR with 23 mm Makenzie S3 valve on 04/06/24 -stable, NYHA Class II -stop ASA, start Eliquis, see below -repeat echo to be done today -lifelong SBE prophylaxis -Cardiac Rehab-advised her to schedule an orientation documented in this [facility]10-10-2024 Evaluation + Plan note* Assessment & Plan Note - MILDRED Fuentes CNP - 05/07/2024 10:28 AM EDT Associated Problem(s): Complete heart block (HCC) Noted post TAVR, PPM placed on 04/06/24 -will follow with device clinic at [facility] [id number] Evaluation + Plan note* Assessment & Plan Note - MILDRED Fuentes CNP - 05/07/2024 10:13 AM EDTAssociated Problem(s): Severe aortic stenosis S/p TAVR with 23 mm Makenzie S3 valve on 04/06/24 -stable, NYHA Class II -stop ASA, start Eliquis, see below -repeat echo to be done today -lifelong SBE prophylaxis -Cardiac Rehab-advised her to schedule an orientation [facility] [id number] Telephone encounter Note* Telephone Encounter - Inna [...] Inna Proctor April 23, 2024 12:36 PM [facility]09-26-2024 Miscellaneous Notes* Telephone Encounter - Inna Proctor [...] 23, 2024 12:36 PM documented in this encounterKindred Hospital [place]09-20-2024 History of Present illness Narrative* Lindsey Tolentino APRN - DANILO - 04/17/2024 12:45 PM EDT Images from the original note were not included. [facility] CARDIOLOGY - [place] [address] [facility] [address] Dept: [phone] Dept Visit type: Established : 1950 Reason for Visit: No chief complaint on file. Assessment and Plan 1. S/P TAVR (transcatheter aortic valve replacement). She has a resting tachycardia today, unclear etiology. Will check labs - Basic metabolic panel - CBC auto differential - TSH - [facility] Cardiac/Pulmonary Rehab 2. Essential hypertension. BP controlled, continue metoprolol. - ECG 12 lead - CLINIC PERFORMED - Basic metabolic panel - CBC auto differential - TSH - [facility] Cardiac/Pulmonary Rehab 3. Aortic valve stenosis, etiology of cardiac valve disease unspecified. S/p TAVR. Continue ASA, SBE prophylaxis. Referred to cardiac rehabEcho and re evaluation in one month. - Basic metabolic panel - CBC auto differential - TSH - [facility] Cardiac/Pulmonary Rehab 4. Complete heart block (CMS/HCC) (HCC). S/p PPm. Has follow up with device clinic. One month follow up Subjective Lito Gonzalez is a 73 y.o. female with PMH paroxysmal atrial fibrillation ?, nonrheumatic aortic valve stenosis, DM, hypertension, RBBB and left posterior fascicular block that presented to [facility] on 04/06/2024 for TAVR. Femoral TAVR with [...] 1 tablet in the evening.Take with meals. Jfjpdnfjkzm-Kqoqqkcxf-Blg C-Mn (GLUCOSAMINE 1500 COMPLEX PO) Take by [...] 04/06/2024 Performed by Srinivasa Poon MD at [facility] OR CARDIAC ELECTROPHYSIOLOGY PROCEDURE N/A 04/07/2024 Performed by Eric Okeefe MD at [facility] Cardiac Cath/EP Lab HYSTERECTOMY TOTAL HIP ARTHROPLASTY [...] tests: MILDRED Maza CNP documented in this [facility]09-11-2024 NoteSuccessful dual-chamber pacemaker implant Procedure Details Following [...] in the left axillary vein. A 9 Australian sheath was placed and the ventricular is advanced in the heart. This was repeated to 7 Australian sheath for the atrial lead. The atrial [...] the patient went to lab in stable condition.[facility] [id number] Note Attestation signed by Calvin Barnard MD [...] at increased risk for PPM after procedure. [facility] Heart & [facility] [place] [facility] Cardiology Discharge Summary Name: Lito Gonzalez Date [...] left posterior fascicular block that presented to [facility] on 04/06/2024 for TAVR procedure who presented to the [facility] on 04/06 for TAVR placement [...] Your Medications These medications were sent to [facility] [address] [place] [address] (more content not included)...[facility]09-11-2024 History of Present illness Narrative* Karli Gonzalez - 04/08/2024 10:30 AM EDT Nutrition rescreen completed. Chart reviewed. Patient to be monitored and followed by the diet health physics technician. .BOBBY Dugan * MILDRED Juarez CNP - 04/08/2024 9:35 AM EDT [facility] and [facility] [place] [facility] Cardiology /Electrophysiology Progress Note HPI / Interval [...] from the original note were not included. [facility] [place] [facility] CCU PROGRESS NOTE Patient Name: Lito Gonzalez : 1950 Subjective: Lito Gonzalez is a 73 y.o. female with PMH paroxysmal atrial fibrillation, nonrheumatic aortic valve stenosis, DM, hypertension, RBBB and left posterior fascicular block that presented to [facility] on 04/06/2024 for TAVR procedure. Pre TAVR [...] QT Interval 362 QTC Interval 477 P [place] 40 QRS [place] 95 T Wave [place] -65 CA Interval 204 Impression Sinus tachycardia RBBB and [...] Via the right femoral vein, a 6 Australian sheath was placed and temporary pacing wire was placed into the RV apex with appropriate capture, in addition sterile tubing was attached and given theanesthesia for central access. Via right radial artery, a 6-Australian sheath was placed and the pigtail catheter was placed into the aortic annulus with confirmation the implant angle. Via the right femoral artery, a 6-Australian sheath was placed. The patient was then heparinized. Next, two Perclose devices were used using the pre-close strategy. A Super Stiff wire was then placed through the second Perclose into the descending aorta. Then, a 14-Australian Makenzie E-sheath was introduced over the wire [...] AL1 catheter was removed. Next a 23mm Makenzei S3 valve was then advanced through the [...] care of your patient while hospitalized at [facility]. I will continue to follow along while [...] Maza CNP - 04/07/2024 10:17 AM EDT [facility] [place] [facility] Cardiology /Electrophysiology Progress Note HPI / Interval History: Ms Gonzalez is POD 1 TAVR. She denies any chest pain, dyspnea, palpitations, groin complaints. Ilbnap90 am this morning she intermittent high degree [...] Date Of Service 04/07/2024 documented in this [facility]09-11-2024 [facility] Vascular [facility] Cardiology /Electrophysiology Progress Note HPI / Interval [...] 55 - 100 % Final Susie Blas, WOUND CARE TECHNICIAN - WAREHOUSE OPERATOR Date Of Service 04/08/2024[facility]09-10-2024 Plan of care note* Care Plan - Shasta Badillo RN - 04/07/2024 6:09 PM EDT Problem: Cardiovascular - Adult Goal: Maintains optimal cardiac output and hemodynamic stability Outcome: Progressing Goal: Absence of cardiac dysrhythmias or at baseline Outcome: Progressing Problem: Hematologic - Adult Goal: Maintains hematologic stability Outcome: Progressing 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 Breonna Jimenez RN [facility] [id number] Note* Care Coordination - Breonna Jimenez RN - 04/07/2024 2:40 PM EDT Care Managment Initial Assessment Date: 04/07/2024 Patient Name: Lito Gonzalez : 1950 Patient Information Source of Information: Patient Cognition/Language: WFL - Within Functional Limits Permission given to speak with patient canvas products 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 as indicated: Yes Confirmation of [...] Living Prescription Coverage: Yes Pharmacy Used: [facility] Medication Management: Independent Transportation/Shopping: Independent Transportation Mode: [...] denies discharge needs. Breonna Jimenez RN Pj [facility] [id number] Note Attestation signed by Calvin Barnard MD [...] Patient had RBBB and LAHB at baseline. [facility] [place] [facility] CCU HISTORY & PHYSICAL Patient Name: Lito Gonzalez : 1950 Date of Admission: 04/06/2024 8:27 AM Established lapel stitcher: [facility] Subjective: Chief Complaint: Complete heart block, severe POD 1 TAVR History of Present Illness: Lito Gonzalez is a 73 y.o. female with PMH paroxysmal atrial fibrillation, nonrheumatic aortic valve stenosis, DM, hypertension, RBBB and left posterior fascicular block that presented to [facility] on 04/06/2024 for TAVR procedure. Pre TAVR [...] 04/06/2024 Performed by Srinivasa Poon MD at [facility] OR HYSTERECTOMY TOTAL HIP ARTHROPLASTY Right 12/02/2019 [...] tablet, Oral, 2 times daily with meals Iirqrfpjgzy-Olejjzhjw-Spm C-Mn (GLUCOSAMINE 1500 COMPLEX PO) Oral [employer] [...] dry. Eyes: Extraocular Mo (more content not included)...[facility]09-10-2024 Consult note* Eric Okeefe MD - 04/07/2024 11:59 AM EDT [facility] [place] [facility] Cardiology /Electrophysiology Consult Note Reason for Consult/Chief Complaint: Complete heart block Referring provider: Ayah Established lapel stitcher: Ayah History of Present Illness: Lito Gonzalez [...] Via the right femoral vein, a 6 Australian sheath was placed and temporary pacing wire was placed into the RV apex with appropriate capture, in addition sterile tubing was attached and given theanesthesia for central access. Via right radial artery, a 6-Australian sheath was placed and the pigtail catheter was placed into the aortic annulus with confirmation the implant angle. Via the right femoral artery, a 6-Australian sheath was placed. The patient was then heparinized. Next, two Perclose devices were used using the pre-close strategy. A Super Stiff wire was then placed through the second Perclose into the descending aorta. Then, a 14-Australian Makenzie E-sheath was introduced over the wire [...] care of your patient while hospitalized at [facility]. I will continue to follow along while hospitalized. Please do not hesitate to call with any questions. Signed by: Srinivasa Poon MD on 04/06/2024 1:41 PM EF BP Date Value Ref Range Status 04/07/2024 66 55 - 100 % Final Eric Okeefe MD DATE of SERVICE: 04/07/2024 [facility] [employer] Work Phone: 1(221) 125-793309-10-2024 Consult note* Eric Okeefe MD - 04/07/2024 11:59 AM EDT [facility] [place] [facility] Cardiology /Electrophysiology Consult Note Reason for Consult/Chief Complaint: Complete heart block Referring provider: Ayah Established lapel stitcher: Ayah History of Present Illness: Lito Gonzalez [...] Via the right femoral vein, a 6 Australian sheath was placed and temporary pacing wire was placed into the RV apex with appropriate capture, in addition sterile tubing was attached and given theanesthesia for central access. Via right radial artery, a 6-Australian sheath was placed and the pigtail catheter was placed into the aortic annulus with confirmation the implant angle. Via the right femoral artery, a 6-Australian sheath was placed. The patient was then heparinized. Next, two Perclose devices were used using the pre-close strategy. A Super Stiff wire was then placed through the second Perclose into the descending aorta. Then, a 14-Australian Makenzie E-sheath was introduced over the wire [...] care of your patient while hospitalized at [facility]. I will continue to follow along while hospitalized. Please do not hesitate to call with any questions. Signed by: Srinivasa Poon MD on 04/06/2024 1:41 PM EF BP Date Value Ref Range Status 04/07/2024 66 55 - 100 % Final Eric Okeefe MD DATE of SERVICE: 04/07/2024 * Tracey Solomon MD - 04/07/2024 10:40 AM EDTAssociated Order(s): IP CONSULT TO CARDIOLOGY [facility] [place] [facility] Cardiology /Electrophysiology Consult Note Reason for Consult/Chief Complaint: AV Block s/p TAVR Established lapel stitcher: Ayah History of Present Illness: Lito Gonzalez [...] Via the right femoral vein, a 6 Australian sheath was placed and temporary pacing wire was placed into the RV apex with appropriate capture, in addition sterile tubing was attached and given theanesthesia for central access. Via right radial artery, a 6-Australian sheath was placed and the pigtail catheter was placed into the aortic annulus with confirmation the implant angle. Via the right femoral artery, a 6-Australian sheath was placed. The patient was then heparinized. Next, two Perclose devices were used using the pre-close strategy. A Super Stiff wire was then placed through the second Perclose into the descending aorta. Then, a 14-Australian Makenzie E-sheath was introduced over the wire [...] care of your patient while hospitalized at [facility]. I will continue to follow along while [...] Lito Gonzalez. Patient prefers cardiopulmonary rehab at [facility]. Given information on program at preferred location. documented in this encounterSDoctors [id number] Nurse Note* Shasta Badillo RN - 04/07/2024 [...] 110- 120s. All other VSS. Lindsey Tolentino, WAREHOUSE OPERATOR tobedside. EP consult ordered. 1138: Pt had another episode of tachycardia with HR in 170s. All other VSS. Pt asymptomatic 1159: Dr. Okeefe to bedside for EP consult. Plan to take patient for permanent pacemaker placement. 1215: Pt taken to EP lab for Pacemaker placement. Consent signed. [facility] [id number] Nurse Note* Shasta Badillo RN - 04/07/2024 [...] 110- 120s. All other VSS. Lindsey Tolentino, WAREHOUSE OPERATOR tobedside. EP consult ordered. 1138: Pt had another episode of tachycardia with HR in 170s. All other VSS. Pt asymptomatic 1159: Dr. Okeefe to bedside for EP consult. Plan to take patient for permanent pacemaker placement. 1215: Pt taken to EP lab for Pacemaker placement. Consent signed. documented in this [facility]09-10-2024 Consult note* Tracey Solomon MD - 04/07/2024 10:40 AM EDTAssociated Order(s): IP CONSULT TO CARDIOLOGY [facility] [place] [facility] Cardiology /Electrophysiology Consult Note Reason for Consult/Chief Complaint: AV Block s/p TAVR Established lapel stitcher: Ayah History of Present Illness: Lito Gonzalez [...] Via the right femoral vein, a 6 Australian sheath was placed and temporary pacing wire was placed into the RV apex with appropriate capture, in addition sterile tubing was attached and given theanesthesia for central access. Via right radial artery, a 6-Australian sheath was placed and the pigtail catheter was placed into the aortic annulus with confirmation the implant angle. Via the right femoral artery, a 6-Australian sheath was placed. The patient was then heparinized. Next, two Perclose devices were used using the pre-close strategy. A Super Stiff wire was then placed through the second Perclose into the descending aorta. Then, a 14-Australian Makenzie E-sheath was introduced over the wire [...] care of your patient while hospitalized at [facility]. I will continue to follow along while [...] Tracey Solomon MD DATE of SERVICE: 04/07/2024 [employer] Work Phone: 1(199) 617-893509-10-2024 [facility] and Vascular [place] [facility] Cardiology /Electrophysiology Progress Note HPI / Interval [...] 55 - 100 % Preliminary Lindsey Tolentino, WOUND CARE TECHNICIAN - WAREHOUSE OPERATOR Date Of Service 04/07/2024[facility]09-10-2024 Consult note* Malika Greenberg - 04/07/2024 9:08 AM EDTAssociated Order(s): IP CONSULT TO CARDIAC REHAB Received referral and reviewed chart. Phase II Cardiopulmonary Rehab Referral discussed with Lito Gonzalez. Patient prefers cardiopulmonary rehab at [facility]. Given information on program at preferred location. [facility] [id number] NoteReceived referral and reviewed chart. Phase II Cardiopulmonary Rehab Referral discussed with Lito Gonzalez. Patient prefers cardiopulmonary rehab at [facility]. Given information on program at preferred location. [facility]09-09-2024 Plan of care note* Care Plan [...] these barriers includecontinue to reinforce and monitor. [facility] [id number] NotePatient was transferred to CCU team for stabilization and need for pacer placement when evidence of heart block developed POD1. Please see CCU team notes and discharge summary.[facility]09-09-2024 Hospital Discharge instructions* Discharge Instructions* MILDRED Cardoza CNP - 04/06/2024 4:27 PM EDT - Please call the Heart Valve Clinic with any questions: [phone] -You will have have the following follow [...] in CPR. Call the Device Clinic at [phone] if you have any questions regarding your incision, pacemaker, or follow-up appointments documented in this [facility]09-09-2024 NotePatient: Lito Gonzalez Procedure Summary Date: 04/06/24 Room / Location: [facility] Operating Room Anesthesia Start: 1148 Anesthesia Stop: [...] all PACU criteria has been met.[facility] [id number] NotePatient: Lito Gonzalez Procedure Summary Date: 04/06/24 Room / Location: [facility] Operating Room Anesthesia Start: 1148 Anesthesia Stop: [...] Allowed opportunity for questions and acknowledgement of understanding.[facility]09-09-2024 NoteArterial Line: Date/Time: 04/06/2024 12:28 PM [...] Staffing Performed: Other Other staff: Srinivasa Poon, [facility]09-09-2024 NoteH&P reviewed. The patient was examined and there are no changes to the H&P.[facility]09-09-2024 Note* Perioperative Nursing Note - Tamela Lai RN - 04/06/2024 9:[address] Hernandez made aware of MBS 253 new orders received. [facility] [id number] Note* Perioperative Nursing Note - Tamela Lai RN - 04/06/2024 9:[address] Hernandez made aware of MBS 253 new orders received. [facility] [id number] Note Attestation signed by Srinivasa Poon MD [...] Srinivasa Poon MD (Physician) Cardiology Expand All [facility] All [facility] MEDICAL [facility] CARDIOLOGY [address] [facility] [address] Dept: [phone] Dept Visit type: New : 1950 Reason for Visit: Cardiac Valve Problem and New Patient (Heart Valve Clinic) Assessment and Plan 1. Nonrheumatic aortic valve stenosis 2. PAF (paroxysmal atrial fibrillation) ([facility]) - ECG 12 lead - CLINIC PERFORMED [...] tablet in the evening. Take with meals. Vugjczuvxfu-Qoiksekus-Jjy C-Mn (GLUCOSAMINE 1500 COMPLEX PO) Take by [...] History Problem Relation Name (more content not included)...[facility] 04-03-2024 Note Attestation signed by Srinivasa [...] MD (Physician) Cardiology Expand All Coll[employer] All [facility] CARDIOLOGY [address] [facility] [address] Dept: [phone] Dept Visit type: New : 1950 Reason for Visit: Cardiac Valve Problem and New Patient (Heart Valve Clinic) Assessment and Plan 1. Nonrheumatic aortic valve stenosis 2. PAF (paroxysmal atrial fibrillation) ([facility]) - ECG 12 lead - CLINIC PERFORMED [...] tablet in the evening. Take with meals. Kaxotdlbcjq-Sjdqibctk-Npe C-Mn (GLUCOSAMINE 1500 COMPLEX PO) Take by mouth. [employer] Blood Glucose Test test strip Test blood [...] History Problem Relation Name (more content not included)...[facility] 04-02-2024 NotePre TAVR phone call placed. Reviewed, procedure, instructions and meds. Pt verbalizes understanding. Pt knows to call [phone] with any concerns. Gloria Davis APRN notified for prep for proc orders. Diagnosis: Procedure being done: TAVR Date/time of procedure: 04/06/24 11 am Surgeon: Dr. Poon 2nd surgeon: Dr. Key Admission type: To be admitted Anesthesia: MAC Completed: H&P/EKG/CBC/CMP/CXR Date completed: 04/01/24 Additional orders will need T&S morning of [facility] 04-01-2024 NotePatient: Lito Gonzalez Procedure Information Date/Time: 04/06/24 1100 Procedures: TRANSCATHETER AORTIC VALVE REPLACEMENT, TRANSTHORACIC ECHOCARDIOGRAM TRANSCATHETER AORTIC VALVE REPLACEMENT, TRANSTHORACIC ECHOCARDIOGRAM (Chest) Location: [facility] Operating Room Surgeons: Srinivasa Poon MD; Renzo [...] in media under external cardiology Radha Marquez, WOUND CARE TECHNICIAN - WAREHOUSE OPERATOR JUDITH Screening Labs: No results found for: [...] 03/12/2024 10:37 PM Equipment Requests: Additional Equipment RequestsMe[place] [id number] NoteTAVR procedure, instructions reviewed with pt and . Patient scheduled for TAVR on 04/06/24 at 11 am Will report to [facility] by 9 am Can park in the [facility] Parking Deck or use [facility] Social Worker parking at the [facility] entrance Plan on overnight stay in [...] with any questions/concerns Pre-op testing done in [facility] at least 1 week before. Provided patient with lab orders. CXR completed in December Patient/family verbalized understanding.[place] [id number] Note Dx: Procedure: TAVR Date/Time: 04/06/24 at 11:00a Surgeon: SHEILA Location: [facility] Admission: [facility] Anesthesia: [place] [id number] Evaluation + Plan note* Assessment & Plan Note - Ira Aquino MD - 03/10/2024 4:42 PM EDTAssociated Problem(s): Dizziness Likely multifactorial Encouraged patient to change positions slowly to avoid dizziness and falls Encouraged continued follow-up with PCP (primary care provider) and cardiology regarding her dizziness - patient and agree/confirm understanding monitor [id number] Miscellaneous Notes* Assessment & Plan Note - [...] with us at [facility] for baseline memory testing I suspect either [...] agree with cardiology plan as discussed with lapel stitcher on same date regarding next steps for further workup/treatment of cardiac disease which likely includes TAVR. On this date of evaluation, the patient has sufficient understanding of procedure(s) to consent to the procedure(s) being discussed and has adequate social support(s). documented in this encounterSDoctors [id number] Evaluation + Plan note* Assessment & Plan Note - Ira Aquino MD - 03/10/2024 4:41 PM EDTAssociated Problem(s): Memory loss Chronic Patient had had c/o memory loss for AWV (Annual Wellness Visit) from 02/25/24 but declined a geriatrics referral at that time I strongly encouraged patient/ to have patient schedule appt with us at [facility] for baseline memory testing I suspect either MCI (Mild Cognitive Impairment) or mild dementia based on my conversation with patient in our visit today [facility] [id number] Evaluation + Plan note* Assessment & Plan Note - Ira Aquino MD - 03/10/2024 4:28 PM EDTAssociated Problem(s): Polypharmacy Reviewed med list with patient/ Advised patient speak with PCP (primary care provider) regarding alternative medication for diabetes other than glimepiride given risk of falls, hypoglycemia -patient/ amenable to this suggestion Recommended patient begin to use pillbox. [facility] [id number] Evaluation + Plan note* Assessment & Plan [...] voice understanding and agreement with this plan. [facility] [id number] Evaluation + Plan note* Assessment & Plan [...] etc. - patient/ amenable to this recommendation [place] [id number] Note02/19/24 A1c 7.9% Discussed with patient and her the recommendation to have education surrounding how to use new glucometer/test strips so she can check her BG at home due to diabetes and falls as well as dizziness and patient taking glimepiride which has high risk of causing hypoglycemia, dizziness, confusion, falls, etc. - patient/ amenable to this [facility]08-13-2024 Evaluation + Plan note* Assessment & Plan Note - Ira Aquino MD - 03/10/2024 4:16 PM EDTAssociated Problem(s): Severe aortic stenosis I agree with cardiology plan as discussed with lapel stitcher on same date regarding next steps for further workup/treatment of cardiac disease which likely includes TAVR. On this date of evaluation, the patient has sufficient understanding of procedure(s) to consent to the procedure(s) being discussed and has adequate social support(s). [id number] History of Present illness Narrative* Ira Aquino MD - 03/10/2024 3:30 PM EDT Images from the original note were not included. [facility] [address] [facility] [address] Dept: [phone] Dept Loc: [phone] Today's Visit Location: TAVR (transcather aortic valve replacement) Clinic [facility] [address] [place] [address] Visit type: [facility] Assessment at TAVR (transcather aortic valve replacement) Clinic Visit Date: 03/10/2024 Reason for Visit: Other (Aortic Stenosis) Assessment and Plan 1. Severe aortic stenosis Assessment & Plan: I agree with cardiology plan as discussed with lapel stitcher on same date regarding next steps for [...] with us at [facility] for baseline memory testing I suspect either [...] 0.7cm (per my communication with cardiologyNurse Practitioner Aemrica Davis) Per note from Julienne Kumar from [...] Less exercise tolerance. Must take a break retirement up stairs. Dizzy with quick changes in [...] 1 tablet in the evening.Take with meals. Rbhliknywrq-Bfvozqvws-Rpp C-Mn (GLUCOSAMINE 1500 COMPLEX PO) Take by [...] and phrases are mis-transcribed.) documented in this [facility]08-13-2024 Instructions* Patient Instructions* Ira Aquino MD - [...] (which can be dangerous). documented in this [facility]08-13-2024 History of Present illness Narrative* Renzo Horta, - 03/10/2024 3:00 PM EDT Images from the original note were not included. [facility] Group: Cardiothoracic Surgery Multidisciplinary Heart Valve Clinic Date: 03/10/24 Patient:Lito Gonzalez 1950 73 y.o. female [id number] Subjective: HPI: Lito Gonzalez 73 y.o. referred [...] the evening.Take with meals. 11/15/23 Historical Provider, Qbsnnovoxry-Tynoeouus-Dgh C-Mn (GLUCOSAMINE 1500 COMPLEX PO) Take by [...] echocardiography,and other diagnostic images. documented in this [facility]08-13-2024 History of Present illness Narrative* Srinivasa Poon MD - 03/10/2024 2:30 PM EDT Images from the original note were not included. [facility] [address] [facility] [address] Dept: [phone] Dept Visit type: New : 1950 Reason [...] 1 tablet in the evening.Take with meals. Orsfpfizhiq-Wexbynqfa-Cyg C-Mn (GLUCOSAMINE 1500 COMPLEX PO) Take by [...] note. Srinivasa Poon MD documented in this [facility]08-09-2024 Telephone encounter Note* Telephone Encounter - Abby Mcclellan MD - 03/06/2024 6:06 PM EDT The following approved medication requests have been transmitted electronically. Requested Prescriptions Signed Prescriptions Disp Refills metFORMIN (GLUCOPHAGE) 500 mg tablet 180 tablet 3 Sig: Take 2 tablets by mouth two times a day with meals. Authorizing Provider: ABBY MCCLELLAN MD [facility]08-09-2024 Miscellaneous Notes* Telephone Encounter - Abby Mcclellan [...] 06, 2024 1:33 PM documented in this [facility]Kind[facility]08-[facility]-2024 Telephone encounter Note * Telephone Encounter - Chrissy Dawn LPN - 03/06/2024 2:03 PM EDT In review this is a new pharmacy. Rx would be needed. [facility]08-09-2024 Telephone encounter Note* Telephone Encounter - Keisha [...] Keisha Petersen March 06, 2024 1:33 PM [facility]07-30-2024 Instructions* Patient Instructions* Kamlesh Acosta APRN.WAREHOUSE OPERATOR - 02/25/2024 11:31 AM EDT Screening schedule [...] review all the medicines you take, even itpo-vju-dlmdcao medicines. As you get older, the way [...] review all the medicines you take, even bnni-thk-bjxhbfv medicines. As you get older, the way [...] have certain medical conditions. documented in this encounterKind[facility]07-30-2024 NoteHNO ID: [id number] Author: KAMLESH ACOSTA APRN.CNP Service: ? Author [...] (Paroxysmal Atrial Fibrillation) (Hcc) - 12/07/2021 Comment: [facility] Nonrheumatic Aortic Valve Stenosis - 12/07/2021 Comment: [facility], echo 2021 [facility] Status Post Right Hip Replacement - 12/23/2019 Difficulty in Walking Involving Lower Leg Joint Acid Indigestion - 03/26/2016 Polycythemia, Secondary - 03/28/2011 Comment: This was abnormal, seen by , testing was normal. Generalized Osteoarthrosis, Involving Multiple Sites - 05/10/2008 Diabetes Mellitus (Hcc) - 10/20/2007 Hypertension Goal Bp (Blood Pressure) < 140/90 - 10/12/2005 Hyperlipidemia Associated With Type 2 Diabetes Mellitus (Hcc) ([facility]) - 10/12/2005 Class 3 Severe Obesity Due to Excess Calories With Body Mass Index (Bmi) of 45.0 to 49.9 in Adult (Formerly [facility]) Social History Tobacco Use Smoking status: Never Smokeless tobacco: Never Substance Use Topics Alcohol use: No Drug use: No Review of Systems Constitutional: Negative. Respiratory: (more content not included)...[facility]07-30-2024 History of Present illness Narrative* Kamlesh Acosta APRN.WAREHOUSE OPERATOR - 02/25/2024 11:21 AM EDT Images from [...] Current care team: Patient Care Team: Abby Mclcellan MD as PCP - General (Internal Medicine) [...] - 02/25/2024 Paf (Paroxysmal Atrial Fibrillation) ([facility]) - 12/07/2021 Comment: [facility] Nonrheumatic Aortic Valve Stenosis - 12/07/2021 Comment: [facility], echo 2021 [facility] Status Post Right Hip Replacement - 12/23/2019 Difficulty in Walking Involving Lower Leg Joint Acid Indigestion - 03/26/2016 Polycythemia, Secondary - 03/28/2011 Comment: This was abnormal, seen by , testing was normal. Generalized Osteoarthrosis, Involving Multiple Sites - 05/10/2008 Diabetes Mellitus ([facility]) - 10/20/2007 Hypertension Goal Bp (Blood Pressure) < 140/90 - 10/12/2005 Hyperlipidemia Associated With Type 2 Diabetes Mellitus ([facility]) ([facility]) - 10/12/2005 Class 3 Severe Obesity Due to Excess Calories With Body Mass Index (Bmi) of 45.0 to 49.9 in Adult ([facility]) Social History Tobacco Use Smoking status: Never [...] medications.. Kamlesh Acosta APRN-DANILO documented in this encounterKind[facility]04-19-2024 Miscellaneous Notes* Addendum Note - Kamlesh Acosta APRN.CNP - 11/15/2023 12:08 PM EDTAddended by: KAMLESH ACOSTA on: 11/15/2023 12:08 PM Modules accepted: Orders * Telephone Encounter - Saji Choudhury LPN - 11/15/2023 11:51 AM EDT Pt calls to state [facility] Looks like on 11/12, short term supply also went to mail away pharmacy. Also, the sig needs updated, pt states glimepiride was increased to 2 tablets daily, not 1. Rx pending. Please review and advise. Saji Choudhury LPN documented in this encounterKindred [facility]04-17-2024 Miscellaneous Notes* Telephone Encounter - Zena Coleman [...] sent locally for a gap supply to [facility] and to the mail order at [facility] please send TREVOR Patient has been [...] away pharmacy. No need to notify patient. Triin Clements documented in this encounterKind[facility]03-12-2024 Miscellaneous Notes* Telephone Encounter - Myranda Byrne [...] appt. Left a message. documented in this encounterKindred [facility]03-08-2024 History of Present illness Narrative* Kamlesh Acosta [...] signature. Nu Bruce RPh documented in this encounterKind[facility]12-15-2023 Miscellaneous Notes* Telephone Encounter - Tanja Lester [...] month. Thank you! Keily. documented in this encounterKindred [facility]10-19-2023 Miscellaneous Notes* Telephone Encounter - Abby Mcclellan MD - 05/16/2023 12:01 PM EDT Okayed * Telephone Encounter - Inna Proctor - 05/16/2023 11:35 AM EDT Patient calling back [facility] did send her a meter and test strips. However, she just got a letter from [facility] stating they need a new script [...] notify patient. Camille Clements documented in this encounterKindred [facility]10-02-2023 Miscellaneous Notes* Letter - [facility] - 04/29/2023 8:25 AM EDT April 29, 2023 PID: [id number] Lito Gonzalez [address] [place] [address] Dear Dangelo Fabricio, We are pleased to [...] report will be kept on file at [facility] as part of your permanent medical record and are available for your continuing care. Thank you for allowing us to help in meeting your health care needs. Sincerely, Dr. Alex Interpreting Radiologist [facility] (Normal over 40) documented in this encounterKindred Hospital [facility]09-29-2023 History of Present illness Narrative* Karla Armas [...] 26, 2023 2:43 PM documented in this encounterKindred [facility]09-29-2023 Miscellaneous Notes* Result Encounter Note - Heidy Hawk APRN.CNS - 04/26/2023 2:50 PM EDT Negative, 1 year screening follow-up documented in this encounterKindred [facility]09-22-2023 Instructions* Patient Instructions* Kamlesh Acosta APRN.CNP - 04/19/2023 12:12 PM EDT Follow up in 3 months but call if blood sugar checks are consistently running above 175 with the higher dose of glimepiride. documented in this encounterKindred [facility]09-22-2023 History of Present illness Narrative* Kamlesh Acosta [...] PROBLEM LIST Paf (Paroxysmal Atrial Fibrillation) ([facility]) - 12/07/2021 Comment: [facility] Moderate Aortic Stenosis By Prior Echocardiogram - 12/07/2021 Comment: [facility], echo 2021 [facility] Status Post Right Hip Replacement - [...] of 45.0 to 49.9 in Adult ([facility]) Social History Tobacco Use Smoking status: Never [...] DM. Kamlesh Acosta APRN-DANILO documented in this encounterKindred [facility]06-25-2023 Miscellaneous Notes* Telephone Encounter - Abby Mcclellan [...] a True Metrix Glucose Meter sent to [facility] pharmacy. * Telephone Encounter - Barbara Thompson Pss - 01/18/2023 1:15 PM EDT Lito is calling because [facility] is supposed to send her a glucometer, but keeps sending strips instead. Please send an order for her glucometer (she reports having a Next Luiz?) documented in this encounterKindred Hospital [facility]06-21-2023 History of Present illness Narrative* Genna Steiner [...] visits Payer: Payor: [employer] MEDICARE / Plan: Host Committee PLUS / Product Type: HMO / Care Gap Reviewed:: Follow-up appointment Advance Directive Reminder: Reminder note to check Health Maintenance for items below Health Maintenance items due: DIABETIC FOOT EXAM due on 02/14/2022 ADVANCE DIRECTIVE DISCUSSION due on 07/29/2022 Navigation Signature: Genna Steiner MA January 16, 2023 7:51 AM documented in this encounterKindred [facility]04-14-2023 Miscellaneous Notes* Telephone Encounter - Chrissy Dawn [...] [facility] documented in this encounterKindred [facility]03-24-2023 Miscellaneous Notes* Telephone Encounter - Krista Valerio [...] has addressed this situation. documented in this encounterKindred Hospital [facility]01-03-2023 History of Present illness Narrative* Suzanne Zaidi [...] 31, 2022 3:47 PM documented in this encounterKindred Hospital [facility]01-03-2023 History of Present illness Narrative* Keily Mckinney APRN.WAREHOUSE OPERATOR - 07/31/2022 3:30 PM EST This note [...] history is provided by the patient. No technical data analyst was used. Cough This is a new [...] PROSTC AGRFT/ALGRFT Right 12/02/2019 Dr. Barney at [facility] ARTHRP KNE CONDYLE&PLATU MEDIAL&LAT COMPARTMENTS 01/31/2009 Knee replacement, total, left per dr johnson ARTHRP KNE CONDYLE&PLATU MEDIAL&LAT COMPARTMENTS 12/15/2012 right knee BX BREAST W/DEVICE 1ST LESION STEREOTACTIC GUID Left 08/23/2015 COLONOSCOPY FLX DX W/COLLJ SPEC WHEN PFRMD 03/02 Colonoscopy COLONOSCOPY FLX DX W/COLLJ SPEC WHEN PFRMD 01/05/16 Colonoscopy TOTAL ABDOMINAL HYSTERECT W/WO RMVL TUBE OVARY 1995 Hysterectomy, VEELIO, BSO for fibroids and bleeding ALLERGIES Lipitor [...] DM - Uncontrolled Insulin: Yes; Accucheck [facility] Medical: [phone] Walker misc Trio Rolling Walker aspirin, enteric [...] flags Follow up with PCP Keily Mckinney APRN.WAREHOUSE OPERATOR documented in this [facility]10-18-2022 History of Present illness Narrative* Viki Sibley LPN - 05/15/2022 10:24 AM EDT Patient presents for Shingrix vaccines. Denies any problems at this time. Tolerated injection well. Viki Sibley LPN documented in this [facility]10-07-2022 Miscellaneous Notes* Telephone Encounter - Viki Sibley LPN - 05/04/2022 9:47 AM EDT Patient scheduled for nurse visit 05/15/22 to receive Shingrix vaccine. Please place order at this time. Viki Sibley LPN documented in this [facility]09-21-2022 Instructions* Patient Instructions* Abby Mcclellan MD - 04/18/2022 2:55 PM EDT Consider arch support socks. documented in this [facility]09-21-2022 History of Present illness Narrative* Abby Mcclellan [...] pedals. Form completed for insurance to [facility] and send test strips. Does not want COVID vaccine. Gets mammogram and colonoscopy at [facility]. Last scope was 2015. Lost wedding wring when had COVID probably in August. Colonoscopy done by Dr. Sanchez at [facility]. 2018. Told 10 years for next [...] - Uncontrolled E11.65 Insulin: Yes; Accucheck [facility] Medical: [phone] Walker misc Trio Rolling Walker aspirin, enteric [...] up for mammogram, yearly mammogram recommended - [facility] SCREENING 5. Essential hypertension - ICD9: 401.9, ICD10: I10 - good control - Continue current medication(s) - Recommended regular aerobic exercise. - Discussed need and benefit for weight loss. - Goal of BP <130/80 - COMP METABOLIC PANEL - LIPID PANEL BASIC - CBC Abby Mcclellan MD documented in this encounterKindred [facility]05-27-2022 History of Present illness Narrative* Munira Edouard [...] 22, 2021 1:38 PM documented in this encounterKindred [facility]05-10-2022 Miscellaneous Notes* Telephone Encounter - Teresa Stuart [...] mg/dL [phone] documented in this encounterKind[facility]10-21-2020 History of Present illness Narrative* Suzanne Zaidi [...] 18, 2020 4:47 PM documented in this encounterKind[facility]06-09-2016 History of Past illness Narrative* Problem Noted [...] Value 09/15/2016 5.8 2016 Test sent to [facility]. ) Last Ophthalmology exam was within the past 12 months Assessment: Stable, good controle PLAN: No change. Cut back on testing to 1 x per Pain in joint, lower leg 04/21/2007 011 documented as of this encounter (statuses as of 12/08/2021) [facility] History of Past illness Narrative* Problem Noted [...] Value 09/15/2016 5.8 2016 Test sent to [facility]. ) Last Ophthalmology exam was within the past 12 months Assessment: Stable, good controle PLAN: No change. Cut back on testing to 1 x per Pain in joint, lower leg 04/21/2007 011 documented as of this encounter (statuses as of 12/22/2021) [facility] History of Past illness Narrative* Problem Noted [...] Value 09/15/2016 5.8 2016 Test sent to [facility]. ) Last Ophthalmology exam was within the past 12 months Assessment: Stable, good controle PLAN: No change. Cut back on testing to 1 x per Pain in joint, lower leg 04/21/2007 011 documented as of this encounter (statuses as of 05/04/2022) [facility] History of Past illness Narrative* Problem Noted [...] Value 09/15/2016 5.8 2016 Test sent to [facility]. ) Last Ophthalmology exam was within the past 12 months Assessment: Stable, good controle PLAN: No change. Cut back on testing to 1 x per Pain in joint, lower leg 04/21/2007 011 documented as of this encounter (statuses as of 05/15/2022) [facility] History of Past illness Narrative* Problem Noted [...] Value 09/15/2016 5.8 2016 Test sent to [facility]. ) Last Ophthalmology exam was within the past 12 months Assessment: Stable, good controle PLAN: No change. Cut back on testing to 1 x per Pain in joint, lower leg 04/21/2007 011 documented as of this encounter (statuses as of 05/25/2022) [facility] History of Past illness Narrative* Problem Noted [...] Value 09/15/2016 5.8 2016 Test sent to [facility]. ) Last Ophthalmology exam was within the past 12 months Assessment: Stable, good controle PLAN: No change. Cut back on testing to 1 x per Pain in joint, lower leg 04/21/2007 011 documented as of this encounter (statuses as of 08/02/2022) [facility] History of Past illness Narrative* Problem Noted [...] Value 09/15/2016 5.8 2016 Test sent to [facility]. ) Last Ophthalmology exam was within the past 12 months Assessment: Stable, good controle PLAN: No change. Cut back on testing to 1 x per Pain in joint, lower leg 04/21/2007 011 documented as of this encounter (statuses as of 10/19/2022) [facility] History of Past illness Narrative* Problem Noted [...] Value 09/15/2016 5.8 2016 Test sent to [facility]. ) Last Ophthalmology exam was within the past 12 months Assessment: Stable, good controle PLAN: No change. Cut back on testing to 1 x per Pain in joint, lower leg 04/21/2007 011 documented as of this encounter (statuses as of 11/09/2022) [facility] History of Past illness Narrative* Problem Noted [...] Value 09/15/2016 5.8 2016 Test sent to [facility]. ) Last Ophthalmology exam was within the past 12 months Assessment: Stable, good controle PLAN: No change. Cut back on testing to 1 x per Pain in joint, lower leg 04/21/2007 011 documented as of this encounter (statuses as of 01/16/2023) [facility] History of Past illness Narrative* Problem Noted [...] Value 09/15/2016 5.8 2016 Test sent to [facility]. ) Last Ophthalmology exam was within the past 12 months Assessment: Stable, good controle PLAN: No change. Cut back on testing to 1 x per Pain in joint, lower leg 04/21/2007 011 documented as of this encounter (statuses as of 01/21/2023) [facility] History of Past illness Narrative* Problem Noted [...] Value 09/15/2016 5.8 2016 Test sent to [facility]. ) Last Ophthalmology exam was within the past 12 months Assessment: Stable, good controle PLAN: No change. Cut back on testing to 1 x per Pain in joint, lower leg 04/21/2007 documented as of this encounter (statuses as of 04/19/2023) [facility] History of Past illness Narrative* Problem Noted [...] Value 09/15/2016 5.8 2016 Test sent to [facility]. ) Last Ophthalmology exam was within the past 12 months Assessment: Stable, good controle PLAN: No change. Cut back on testing to 1 x per Pain in joint, lower leg 04/21/2007 documented as of this encounter (statuses as of 05/02/2023) [facility] History of Past illness Narrative* Problem Noted [...] Value 09/15/2016 5.8 2016 Test sent to [facility]. ) Last Ophthalmology exam was within the past 12 months Assessment: Stable, good controle PLAN: No change. Cut back on testing to 1 x per Pain in joint, lower leg 04/21/2007 documented as of this encounter (statuses as of 05/11/2023) [facility] History of Past illness Narrative* Problem Noted [...] Value 09/15/2016 5.8 2016 Test sent to [facility]. ) Last Ophthalmology exam was within the past 12 months Assessment: Stable, good controle PLAN: No change. Cut back on testing to 1 x per Pain in joint, lower leg 04/21/2007 documented as of this encounter (statuses as of 05/16/2023) [facility] History of Past illness Narrative* Problem Noted [...] Value 09/15/2016 5.8 2016 Test sent to [facility]. ) Last Ophthalmology exam was within the past 12 months Assessment: Stable, good controle PLAN: No change. Cut back on testing to 1 x per Pain in joint, lower leg 04/21/2007 documented as of this encounter (statuses as of 06/02/2023) [facility] History of Past illness Narrative* Problem Noted Date Diagnosed Date Resolved Date Colon cancer screening 01/05/201601/04 Nonspecific abnormal results of liver function study 10/20/2007 03/04/2012 Diabetes mellitus type 2, co ntrolled, without complications 10/20/2007 06/29/2020 Last Assessment & Plan: DIABETES MELLITUS: Ms. Goznalez was last seen on 05/2016. Since our [...] Value 09/15/2016 5.8 2016 Test sent to [facility]. ) Last Ophthalmology exam was within the past 12 months Assessment: Stable, good controle PLAN: No change. Cut back on testing to 1 x per Pain in joint, lower leg 04/21/2007 documented as of this encounter (statuses as of 07/12/2023) [facility] History of Past illness Narrative* Problem Noted [...] Value 09/15/2016 5.8 2016 Test sent to [facility]. ) Last Ophthalmology exam was within the past 12 months Assessment: Stable, good controle PLAN: No change. Cut back on testing to 1 x per Pain in joint, lower leg 04/21/2007 documented as of this encounter (statuses as of 10/07/2023) [facility] History of Past illness Narrative* Problem Noted [...] Value 09/15/2016 5.8 2016 Test sent to [facility]. ) Last Ophthalmology exam was within the past 12 months Assessment: Stable, good controle PLAN: No change. Cut back on testing to 1 x per Pain in joint, lower leg 04/21/2007 documented as of this encounter (statuses as of 10/08/2023) [facility] History of Past illness Narrative* Problem Noted [...] Value 09/15/2016 5.8 2016 Test sent to [facility]. ) Last Ophthalmology exam was within the past 12 months Assessment: Stable, good controle PLAN: No change. Cut back on testing to 1 x per Pain in joint, lower leg 04/21/2007 Tachycardia, unspecified 04/03/2005 documented as of this encounter (statuses as of 11/13/2023) [facility] History of Past illness Narrative* Problem Noted [...] Value 09/15/2016 5.8 2016 Test sent to [facility]. ) Last Ophthalmology exam was within the past 12 months Assessment: Stable, good controle PLAN: No change. Cut back on testing to 1 x per Pain in joint, lower leg 04/21/2007 Tachycardia, unspecified 04/03/2005 documented as of this encounter (statuses as of 11/15/2023) [facility] Evaluation note* Diagnosis Onset Date Resolution Status Essential (primary) hypertension chronic Nonrheumatic aortic (valve) stenosis chronic Atrial fibrillation with rap id ventricular response August, resolved [facility] Work Phone: Evaluation note* Diagnosis Onset Date Resolution Status Diabetes acute Obesity acute Essential (primary) hypertension chronic [facility] Work Phone: Evaluation note* Diagnosis Need for vaccination- Primary Need for prophylactic vaccination and inoculation against unspecified single disease [facility] [place] [facility] Diagnosis Need for vaccination- Primary Need for prophylactic vaccination and inoculation against unspecified single disease [facility] [place] [facility]* Diagnosis Controlled type 2 diabetes mellitus without complication, without long-term current use of insulin (HCC)- Primary Plantar fasciitis of right foot Plantar fascial fibromatosis Nonrheumatic aortic valve stenosis Aortic valve disorders Encounter for screening mammogram for breast cancer Essential hypertension Unspecified essential hypertension [facility] [place] [facility]* Diagnosis Acute cough- Primary [facility] [place] [facility]* Diagnosis Controlled type 2 diabetes mellitus without complication, without long-term current use of insulin (HCC)- Primary [facility] [place] [facility]* Diagnosis Type 2 diabetes mellitus with hyperglycemia, without long-term current use of insulin (HCC)- Primary Essential hypertension Unspecified essential hypertension Hyperlipidemia associated with type 2 diabetes mellitus (HCC) Moderate aortic stenosis by prior echocardiogram Aortic valve disorders Acute cough [facility] [place] [facility]* Diagnosis Controlled type 2 diabetes mellitus without complication, without long-term current use of insulin (HCC) [facility] [place] [facility]* Diagnosis Encounter for screening mammogram for breast cancer [facility] [place] [facility]* Diagnosis Type 2 diabetes mellitus with other specified complication, without long-term current use of insulin (HCC)- Primary Hypertension goal BP (blood pressure) < 140/90 Unspecified essential hypertension Hyperlipidemia associated with type 2 diabetes mellitus (HCC) (HCC) [facility] [place] [facility]* Diagnosis Medicare annual wellness visit, subsequent- [...] therapeutic drug monitoring [facility] [place] [facility]* Diagnosis Severe aortic stenosis- Primary Aortic valve disorders Memory loss Dizziness Dizziness and giddiness Daytime hypersomnolence Polypharmacy Issue of repeat prescriptions documented in this encounter [facility] note* Diagnosis Nonrheumatic aortic valve stenosis- Primary PAF (paroxysmal atrial fibrillation) ([facility]) Atrial fibrillation documented in this encounter [facility] note* Diagnosis Nonrheumatic aortic valve stenosis documented in this encounter [facility] note* Diagnosis Severe aortic stenosis- Primary Aortic valve disorders documented in this encounter [facility] note* Diagnosis Nonrheumatic aortic valve stenosis- Primary Severe aortic stenosis- Primary Aortic valve disorders Nonrheumatic aortic valve stenosis documented in this encounter [facility] note* Diagnosis Nonrheumatic aortic valve stenosis- Primary Nonrheumatic aortic valve stenosis Severe aortic stenosis Aortic valve disorders Complete heart block (CMS/HCC) (HCC) Atrioventricular block, complete Complete heart block (CMS/HCC) (HCC) Atrioventricular block, complete Nonrheumatic aortic valve stenosis Complete heart block (CMS/HCC) (HCC) Atrioventricular block, complete Encounter for adjustment or management of cardiac device documented in this encounter [facility] note* Diagnosis S/P TAVR (transcatheter aortic valve replacement)- Primary Essential hypertension Unspecified essential hypertension Aortic valve stenosis, etiology of cardiac valve disease unspecified Complete heart block (HCC) Atrioventricular block, complete documented in this encounter [facility] note* Diagnosis Controlled type 2 diabetes mellitus without complication, without long-term current use of insulin (HCC)- Primary BMI 45.0-49.9, adult ([facility]) Body Mass Index 45.0-49.9, adult Hypertension goal BP (blood pressure) < 140/90 Unspecified essential hypertension Hand pain, left Pain in limb Need for shingles vaccine Need for prophylactic vaccination and inoculation against other viral diseases Acute cough [facility] [place] [facility]* Diagnosis Severe aortic stenosis- Primary Aortic valve disorders PAF (paroxysmal atrial fibrillation) (HCC) Atrial fibrillation Essential hypertension Unspecified essential hypertension Complete heart block (HCC) Atrioventricular block, complete Encounter for adjustment or management of cardiac device documented in this encounter [facility] note* Diagnosis Aortic valve stenosis, etiology of cardiac valve disease unspecified Encounter for adjustment or management of cardiac device documented in this encounter [facility] note* Diagnosis Severe aortic stenosis- Primary Aortic valve disorders Memory loss Dizziness Dizziness and giddiness Daytime hypersomnolence Polypharmacy Issue of repeat prescriptions Severe aortic stenosis- Primary Aortic valve disorders PAF (paroxysmal atrial fibrillation) ([facility]) Atrial fibrillation Essential hypertension Unspecified essential hypertension Complete heart block (HCC) Atrioventricular block, complete PAF (paroxysmal atrial fibrillation) ([facility]) Atrial fibrillation Encounter for adjustment or management of cardiac device documented in this encounter [facility] note* Diagnosis Controlled type 2 diabetes mellitus without complication, without long-term current use of insulin ([facility])- Primary BMI 45.0-49.9, adult ([facility]) Body Mass Index 45.0-49.9, adult Hypertension goal BP (blood pressure) < 140/90 Unspecified essential hypertension Hand pain, left Pain in limb Need for shingles vaccine Need for prophylactic vaccination and inoculation against other viral diseases Type 2 diabetes mellitus with other specified complication, without long-term current use of insulin ([facility])- Primary Hypertension goal BP (blood pressure) < 140/90 Unspecified essential hypertension Hyperlipidemia associated with type 2 diabetes mellitus ([facility]) ([facility]) documented in this encounter [facility] note* Diagnosis Controlled type 2 diabetes mellitus without complication, without long-term current use of insulin ([facility])- Primary BMI 45.0-49.9, adult ([facility]) Body Mass Index 45.0-49.9, adult Hypertension goal BP (blood pressure) < 140/90 Unspecified essential hypertension Hand pain, left Pain in limb Need for shingles vaccine Need for prophylactic vaccination and inoculation against other viral diseases Type 2 diabetes mellitus with hyperglycemia, without long-term current use of insulin ([facility])- Primary Hyperlipidemia associated with type 2 diabetes mellitus (HCC) ([facility]) Hypertension goal BP (blood pressure) < 140/90 Unspecified essential hypertension PAF (paroxysmal atrial fibrillation) ([facility]) Atrial fibrillation Class 3 severe obesity due to excess calories with body mass index (BMI) of 45.0 to 49.9 in adult, unspecified whether serious comorbidity present ([facility]) Encounter for immunization Need for other specified prophylactic vaccination against single bacterial disease Nonrheumatic aortic valve stenosis Aortic valve disorders Arm edema Edema Cardiac pacemaker Cardiac pacemaker in situ documented in this encounter [facility] note* Diagnosis Controlled type 2 diabetes mellitus without complication, without long-term current use of insulin ([facility])- Primary BMI 45.0-49.9, adult ([facility]) Body Mass Index 45.0-49.9, adult Hypertension goal [...] diabetes mellitus (HCC) documented in this encounter [facility] noteNo assessment information [facility] Work [facility]: [facility] note* Diagnosis Controlled type 2 diabetes mellitus without complication, without long-term current use of insulin (HCC)- Primary BMI 45.0-49.9, adult ([facility]) Body Mass Index 45.0-49.9, adult Hypertension goal [...] Sciatic leg pain documented in this encounter [facility] note* Diagnosis Controlled type 2 diabetes [...] Unspecified essential hypertension documented in this encounter [facility] note* Diagnosis Controlled type 2 diabetes [...] (HCC) [facility] Diagnosis Onset Date Resolution Status Admit Date Intermittent complete heart block acute February 08, 2025 10:09am Paroxysmal atrial fibrillation acute February 08, 2025 10:09am Essential (primary) hypertension chronic February 08, 2025 10:09am Nonrheumatic aortic (valve) stenosis chronic February 08, 2025 10:09am [facility] Work Phone: Evaluation note* Diagnosis Controlled type [...] of insulin (HCC) [facility] Diagnostic Procedure Only (Routine) - Pending Review Specialty Diagnoses / Procedures Referred By Contac t Referred To Contact [facility] Diagnoses Encounter for screening mammogram for breast cancer Procedures DAVID SCREENING SCREENING MAMMOGRAPHY BI 2-VIEW BREAST INC Abby So MD [address] [place] [address] [facility] [address] [place] [address] Referral ID Status Reason Start Date Expiration Date Visits Requested Visits Authorized [id number] Pending Review Auto-Generat ed Referral 04/18/2022 05/18/2023 1 1 [facility] for referral (narrative)* Diagnostic Procedure Only (Routine) - Closed Specialty Diagnoses / Procedures Referred By Zandra oliva Referred To Contact [facility] Diagnoses Encounter for screening mammogram for breast cancer Procedures DAVID SCREENING SCREENING MAMMOGRAPHY BI 2-VIEW BREAST INC Abby So MD [address] [place] [address] [facility] [address] [place] [address] Referral ID Status Reason Start Date Expiration Date V isits Requested Visits Authorized [id number] Closed Auto-Generate d Referral 04/18/2022 05/18/2023 1 1 [facility] for referral (narrative)No reason for referral information availableChildren[facility] [place] Work Phone: Reason for visit Narrative* Diagnostic Procedure Only (Routine) - Closed Specialty Diagnoses / Procedures Referred By Zandra oliva Referred To Contact [facility] Diagnoses Encounter for screening mammogram for breast cancer Procedures DAVID SCREENING SCREENING MAMMOGRAPHY BI 2-VIEW BREAST INC Abby So MD [address] [place] [address] [facility] [address] [place] [address] Referral ID Status Reason Start Date Expiration Date V isits Requested Visits Authorized [id number] Closed Auto-Generate d Referral 04/18/2022 05/18/2023 1 1 [facility] Chief Complaint and Reason for Visit Chief Complaint f/u visit Michael NONRHEUMATIC AORTIC STENOSIS [place] Reason for Visit Essential (primary) hypertension Nonrheumatic aortic (valve) stenosis Atrial fibrillation with rapid ventricular response Chief Complaint [employer], DIABETES, NPP MA ILED SCREENING Reason for [...] December 02, 2019 1: 55pm Power of Environmental Monitoring Technician Yes December 02, 2019 1:55pm Documents on File Type Date Recorded Patient Hand Bunch Maker Expl anation Advance Directive(s) Advance Directive(s) 01/05/2016 [...] Do you have a Healthcare Power of Environmental Monitoring Technician? Yes December 02, 2019 1:55pm Advance Directives Yes January 19 8:53am Reason for Referral Specialty Diagnoses / Procedures Referred By Contac t Referred To Contact Radiology Diagnoses Nonrheumatic aortic valve stenosis Procedures CTA Angiogram TAVR America Davis APRN - WAREHOUSE OPERATOR [address] [place] [address] Referral ID Status Reason Start Date Expiration Date Visits Re quested Visits Authorized [id number] Closed 03/10/2024 05/09/2024 1 1 Specialty Diagnoses / Procedures Referred By Contac t Referred To Contact Cardiology Diagnoses S/P TAVR (transcatheter aortic valve replacement) Aortic valve stenosis, etiology of cardiac valve disease unspecified Procedures Transthoracic echocardiogram (TTE) complete with contrast, bubble, strain, and 3D PRN CA ECHO TTHRC R-T 2D W/WOM-MODE COMPL SPEC&COLR D CA TTE W OR WO FOL WCON,DOPPLER Lindsey Tolentino WOUND CARE TECHNICIAN - WAREHOUSE OPERATOR [address] [address] Referral ID Status Reason Start Date Expiration Date V isits Requested Visits Authorized [id number] Pending Review 04/17/2024 04/17/2025 1 1 Specialty Diagnoses / Procedures Referred By Contac t Referred To Contact Cardiology Diagnoses Essential hypertension S/P TAVR (transcatheter aortic valve replacement) Aortic valve stenosis, etiology of cardiac valve disease unspecified Procedures CA OFFICE/OUTPATIENT [facility] 60 MINUTES Lindsey Tolentino WOUND CARE TECHNICIAN - WAREHOUSE OPERATOR [address] [address] Referral ID Status Reason Start Date Expiration Date Visits Requested Visits Authorized [id number] Pending Review Specialty Services Required 04/17/2024 04/17/2025 1 1 Specialty Diagnoses / Procedures [facility] Diagnoses Aortic valve stenosis, etiology of cardiac valve disease unspecified Procedures Transthoracic echocardiogram (TTE) complete with contrast, bubble, strain, and 3D PRN CA ECHO TTHRC R-T 2D W/WOM-MODE COMPL SPEC&COLR D CA TTE W OR WO FOL WCON,Lindsey Castro, WOUND CARE TECHNICIAN - WAREHOUSE OPERATOR [address] [place] [id number] Referral ID Status Reason Start Date Expiration Date Visits Re quested Visits Authorized [id number] Closed 05/07/2024 07/05/2024 1 1 Summary Purpose [...] or prosecute any alcohol or drug abuse patient.[facility] the event this information is protected by the Federal Confidentiality of Alcohol and Drug Abuse Patient Records regulations: The Federal rules restrict any use of the information to criminally investigate or prosecute any alcohol or drug abuse patient.[facility] the event this information is protected by the Federal Confidentiality of Alcohol and Drug Abuse Patient Records regulations: The Federal rules restrict any use of the information to criminally investigate or prosecute any alcohol or drug abuse patient.[facility] the event this information is protected by the Federal Confidentiality of Alcohol and Drug Abuse Patient Records regulations: The Federal rules restrict any use of the information to criminally investigate or prosecute any alcohol or drug abuse patient.[facility] the event this information is protected by the Federal Confidentiality of Alcohol and Drug Abuse Patient Records regulations: The Federal rules restrict any use of the information to criminally investigate or prosecute any alcohol or drug abuse patient.[facility] the event this information is protected by the Federal Confidentiality of Alcohol and Drug Abuse Patient Records regulations: The Federal rules restrict any use of the information to criminally investigate or prosecute any alcohol or drug abuse patient.[facility] the event this information is protected by the Federal Confidentiality of Alcohol and Drug Abuse Patient Records regulations: The Federal rules restrict any use of the information to criminally investigate or prosecute any alcohol or drug abuse patient.[facility] the event this information is protected by the Federal Confidentiality of Alcohol and Drug Abuse Patient Records regulations: The Federal rules restrict any use of the information to criminally investigate or prosecute any alcohol or drug abuse patient.[facility] the event this information is protected by the Federal Confidentiality of Alcohol and Drug Abuse Patient Records regulations: The Federal rules restrict any use of the information to criminally investigate or prosecute any alcohol or drug abuse patient.[facility]In the event this information is protected by the Federal Confidentiality of Alcohol and Drug Abuse Patient Records regulations: The Federal rules restrict any use of the information to criminally investigate or prosecute any alcohol or drug abuse patient.[facility]In the event this information is protected by the Federal Confidentiality of Alcohol and Drug Abuse Patient Records regulations: The Federal rules restrict any use of the information to criminally investigate or prosecute any alcohol or drug abuse patient.[facility]In the event this information is protected by the Federal Confidentiality of Alcohol and Drug Abuse Patient Records regulations: The Federal rules restrict any use of the information to criminally investigate or prosecute any alcohol or drug abuse patient.[facility] the event this information is protected by the Federal Confidentiality of Alcohol and Drug Abuse Patient Records regulations: The Federal rules restrict any use of the information to criminally investigate or prosecute any alcohol or drug abuse patient.[facility] the event this information is protected by the Federal Confidentiality of Alcohol and Drug Abuse Patient Records regulations: The Federal rules restrict any use of the information to criminally investigate or prosecute any alcohol or drug abuse patient.[facility]In the event this information is protected by the Federal Confidentiality of Alcohol and Drug Abuse Patient Records regulations: The Federal rules restrict any use of the information to criminally investigate or prosecute any alcohol or drug abuse patient.[facility]In the event this information is protected by the Federal Confidentiality of Alcohol and Drug Abuse Patient Records regulations: The Federal rules restrict any use of the information to criminally investigate or prosecute any alcohol or drug abuse patient.[facility]In the event this information is protected by the Federal Confidentiality of Alcohol and Drug Abuse Patient Records regulations: The Federal rules restrict any use of the information to criminally investigate or prosecute any alcohol or drug abuse patient.[facility]In the event this information is protected by the Federal Confidentiality of Alcohol and Drug Abuse Patient Records regulations: The Federal rules restrict any use of the information to criminally investigate or prosecute any alcohol or drug abuse patient.[facility] the event this information is protected by the Federal Confidentiality of Alcohol and Drug Abuse Patient Records regulations: The Federal rules restrict any use of the information to criminally investigate or prosecute any alcohol or drug abuse patient.[facility]In the event this information is protected by the Federal Confidentiality of Alcohol and Drug Abuse Patient Records regulations: The Federal rules restrict any use of the information to criminally investigate or prosecute any alcohol or drug abuse patient.[facility] the event this information is protected by the Federal Confidentiality of Alcohol and Drug Abuse Patient Records regulations: The Federal rules restrict any use of the information to criminally investigate or prosecute any alcohol or drug abuse patient.[facility]In the event this information is protected by the Federal Confidentiality of Alcohol and Drug Abuse Patient Records regulations: The Federal rules restrict any use of the information to criminally investigate or prosecute any alcohol or drug abuse patient.[facility] DaytonIn the event this information is protected by the Federal Confidentiality of Alcohol and Drug Abuse Patient Records regulations: The Federal rules restrict any use of the information to criminally investigate or prosecute any alcohol or drug abuse patient.[facility]In the event this information is protected by the Federal Confidentiality of Alcohol and Drug Abuse Patient Records regulations: The Federal rules restrict any use of the information to criminally investigate or prosecute any alcohol or drug abuse patient.[facility]In the event this information is protected by the Federal Confidentiality of Alcohol and Drug Abuse Patient Records regulations: The Federal rules restrict any use of the information to criminally investigate or prosecute any alcohol or drug abuse patient.[facility] DaytonIn the event this information is protected by the Federal Confidentiality of Alcohol and Drug Abuse Patient Records regulations: The Federal rules restrict any use of the information to criminally investigate or prosecute any alcohol or drug abuse patient.[facility] DaytonIn the event this information is protected by the Federal Confidentiality of Alcohol and Drug Abuse Patient Records regulations: The Federal rules restrict any use of the information to criminally investigate or prosecute any alcohol or drug abuse patient.[facility]In the event this information is protected by the Federal Confidentiality of Alcohol and Drug Abuse Patient Records regulations: The Federal rules restrict any use of the information to criminally investigate or prosecute any alcohol or drug abuse patient.[facility] DaytonIn the event this information is protected by the Federal Confidentiality of Alcohol and Drug Abuse Patient Records regulations: The Federal rules restrict any use of the information to criminally investigate or prosecute any alcohol or drug abuse patient.[facility] DaytonIn the event this information is protected by the Federal Confidentiality of Alcohol and Drug Abuse Patient Records regulations: The Federal rules restrict any use of the information to criminally investigate or prosecute any alcohol or drug abuse patient.[facility] the event this information is protected by the Federal Confidentiality of Alcohol and Drug Abuse Patient Records regulations: The Federal rules restrict any use of the information to criminally investigate or prosecute any alcohol or drug abuse patient.[facility]In the event this information is protected by the Federal Confidentiality of Alcohol and Drug Abuse Patient Records regulations: The Federal rules restrict any use of the information to criminally investigate or prosecute any alcohol or drug abuse patient.[facility] DaytonIn the event this information is protected by [...] or prosecute any alcohol or drug abuse patient.[facility] DaytonIn the event this information is protected by the Federal Confidentiality of Alcohol and Drug Abuse Patient Records regulations: The Federal rules restrict any use of the information to criminally investigate or prosecute any alcohol or drug abuse patient.[facility] the event this information is protected by the Federal Confidentiality of Alcohol and Drug Abuse Patient Records regulations: The Federal rules restrict any use of the information to criminally investigate or prosecute any alcohol or drug abuse patient.[facility] DaytonIn the event this information is protected by the Federal Confidentiality of Alcohol and Drug Abuse Patient Records regulations: The Federal rules restrict any use of the information to criminally investigate or prosecute any alcohol or drug abuse patient.[facility] Reason for Visit (unrecogniz ed section and [...] Clinic Specialty Diagnoses / [facility] To Contact Radiology Diagnoses Nonrheumatic aortic valve stenosis Procedures CTA Angiogram TAVR America Davis APRN - WAREHOUSE OPERATOR [address] [place] [address] Referral ID Status Reason Start Date Expiration Date Visits Re quested Visits Authorized [id number] Closed 03/10/2024 05/09/2024 1 1 Specialty Diagnoses / Procedures [facility] Referred To Contact Diagnoses Nonrheumatic aortic valve stenosis Procedures CA REPLACE AORTIC VALVE PERQ FEMORAL ARTRY APPROACH TRANSCATHETER AORTIC VALVE REPLACEMENT, TRANSTHORACIC ECHOCARDIOGRAM TRANSCATHETER AORTIC VALVE REPLACEMENT, TRANSTHORACIC ECHOCARDIOGRAM Srinivasa Poon MD [address] [place] [address] Referral ID Status Reason Start Date Expiration Date Visits Re quested Visits Authorized [id number] 03/17/2024 1 1 Reason Comments Hospital Follow-up Reason Onset Date Comments Refill Request 04/23/2024 Reason Comments 1 Month Follow Up Specialty Diagnoses / Procedures Referred By [facility] t Referred To Contact Cardiology Diagnoses Aortic valve stenosis, etiology of cardiac valve disease unspecified Procedures Transthoracic echocardiogram (TTE) complete with contrast, bubble, strain, and 3D PRN CA ECHO TTHRC R-T 2D W/WOM-MODE COMPL SPEC&COLR D CA TTE W OR WO FOL WCON,DOPPLER FerLindsey, WOUND CARE TECHNICIAN - WAREHOUSE OPERATOR [address] [address] Referral ID Status Reason Start Date Expiration Date Visits Re quested Visits Authorized [id number] Closed 05/07/2024 07/05/2024 1 1 Reason Onset [...] Care Teams (unrecognized sec tion and content) Distance Learning Technician Relationship Specialty Start Date End Date Abby Mcclellan MD [address] [place] [address] PCP - General Internal Medicine 12/05/12 Distance Learning Technician Relationship Specialty Start Date End Date Abby Mcclellan MD [address] [place] [address] PCP - General Internal Medicine 12/05/12 Distance Learning Technician Relationship Specialty Start Date End Date Abby Mcclellan MD [address] [place], [place] [id number] PCP - General Internal Medicine 12/05/12 Distance Learning Technician Relationship Specialty Start Date End Date Abby Mcclellan MD [address] [place] [address] PCP - General Internal Medicine 12/05/12 Distance Learning Technician Relationship Specialty Start Date End Date Abby Mcclellan MD [address] [place] [address] PCP - General Internal Medicine 12/05/12 Distance Learning Technician Relationship Specialty Start Date End Date Abby Mcclellan MD [address] [place] [address] PCP - General Internal Medicine 12/05/12 Distance Learning Technician Relationship Specialty Start Date End Date Abby Mcclellan MD [address] [place] [address] PCP - General Internal Medicine 12/05/12 Distance Learning Technician Relationship Specialty Start Date End Date Abby Mcclellan MD [address] [place] [address] PCP - General Internal Medicine 12/05/12 Distance Learning Technician Relationship Specialty Start Date End Date Abby Mcclellan MD [address] [place] [address] PCP - General Internal Medicine 12/05/12 Distance Learning Technician Relationship Specialty Start Date End Date Abby Mcclellan MD [address] [place] [address] PCP - General Internal Medicine 12/05/12 Distance Learning Technician Relationship Specialty Start Date End Date Abby Mcclellan MD [address] [place] [address] PCP - General Internal Medicine 12/05/12 Distance Learning Technician Relationship Specialty Start Date End Date Abby Mcclellan MD [address] [place] [address] PCP - General Internal Medicine 12/05/12 Distance Learning Technician Relationship Specialty Start Date End Date Abby Mcclellan MD [address] [place] [address] PCP - General Internal Medicine 12/05/12 Distance Learning Technician Relationship Specialty Start Date End Date Abby Mcclellan MD [address] [place] [address] PCP - General Internal Medicine 12/05/12 Distance Learning Technician Relationship Specialty Start Date End Date Abby Mcclellan MD [address] [place] [address] PCP - General Internal Medicine 12/05/12 Distance Learning Technician Relationship Specialty Start Date End Date Abby Mcclellan MD [address] [place] [address] PCP - General Internal Medicine 12/05/12 Distance Learning Technician Relationship Specialty Start Date End Date Abby Mcclellan MD [address] [place] [address] PCP - General Internal Medicine 12/05/12 Distance Learning Technician Relationship Specialty Start Date End Date Abby Mcclellan [address] [place] [address] PCP - General Internal Medicine 03/10/24 Distance Learning Technician Relationship Specialty Start Date End Date Abby Mcclellan [address] [place] [address] PCP - General Internal Medicine 03/10/24 Distance Learning Technician Relationship Specialty Start Date End Date Abby Mcclellan [address] [place] [address] PCP - General Internal Medicine 03/10/24 Distance Learning Technician Relationship Specialty Start Date End Date Abby Mcclellan [address] [place] [address] PCP - General Internal Medicine 03/10/24 Distance Learning Technician Relationship Specialty Start Date End Date Abby Mcclellan [address] [place] [address] PCP - General Internal Medicine 03/10/24 Distance Learning Technician Relationship Specialty Start Date End Date Abby Mcclellan [address] [place] [address] PCP - General Internal Medicine 03/10/24 Distance Learning Technician Relationship Specialty Start Date End Date Abby Mcclellan MD [address] [place] [address] PCP - General Internal Medicine 12/05/12 Distance Learning Technician Relationship Specialty Start Date End Date Abby Mcclellan MD [address] [place] [address] PCP - General Internal Medicine 12/05/12 Distance Learning Technician Relationship Specialty Start Date End Date Abby Mcclellan [address] [place] [address] PCP - General Internal Medicine 03/10/24 Distance Learning Technician Relationship Specialty Start Date End Date Abby Mcclellan [address] [facility] [place] [address] PCP - General Internal Medicine 03/10/24 Distance Learning Technician Relationship Specialty Start Date End Date Abby Mcclellan [address] [place] [address] PCP - General Internal Medicine 03/10/24 Distance Learning Technician Relationship Specialty Start Date End Date Abby Mcclellan [address] [place] [address] PCP - General Internal Medicine 03/10/24 Distance Learning Technician Relationship Specialty Start Date End Date Abby Mcclellan MD [address] [place] [address] PCP - General Internal Medicine 12/05/12 Heidy Hawk APRN.CHILD AND ADOLESCENT PSYCHOLOGIST [address] [place] [address] Chiropractic Practice Manager Internal Medicine 07/06/24 Kamlesh Acosta APRN.WAREHOUSE OPERATOR [address] [place] [address] Chiropractic Practice Manager Internal Medicine 07/06/24 Distance Learning Technician Relationship Specialty Start Date End Date Abby Mcclellan MD [address] [place] [address] PCP - General Internal Medicine 12/05/12 Heidy Hawk, WOUND CARE TECHNICIAN.CHILD AND ADOLESCENT PSYCHOLOGIST [address] [place] [address] Chiropractic Practice Manager Internal Medicine 07/06/24 Kamlesh Acosta APRN.WAREHOUSE OPERATOR [address] [place] [address] Chiropractic Practice Manager Internal Medicine 07/06/24 Distance Learning Technician Relationship Specialty Start Date End Date Abby Mcclellan MD [address] [place] [address] PCP - General Internal Medicine 12/05/12 Heidy Hawk, WOUND CARE TECHNICIAN.CHILD AND ADOLESCENT PSYCHOLOGIST [address] [place] [address] Chiropractic Practice Manager Internal Medicine 07/06/24 Kamlesh Acosta WOUND CARE TECHNICIAN.WAREHOUSE OPERATOR [address] [facility] [place] [address] Chiropractic Practice Manager Internal Medicine 07/06/24 Distance Learning Technician Relationship Specialty Start Date End Date Abby Mcclellan MD [address] [facility] [place] [address] PCP - General Internal Medicine 12/05/12 Heidy Hawk WOUND CARE TECHNICIAN.CHILD AND ADOLESCENT PSYCHOLOGIST [address] [facility] [place] [address] Chiropractic Practice Manager Internal Medicine 07/06/24 Kamlesh Acosta APRN.WAREHOUSE OPERATOR [address] [facility] [place] [address] Chiropractic Practice Manager Internal Medicine 07/06/24 Distance Learning Technician Relationship Specialty Start Date End Date Abby Mcclellan MD [address] [facility] [place] [address] PCP - General Internal Medicine 12/05/12 Heidy Hawk WOUND CARE TECHNICIAN.CHILD AND ADOLESCENT PSYCHOLOGIST [address] [facility] [place] [address] Chiropractic Practice Manager Internal Medicine 07/06/24 Kamlesh Acosta WOUND CARE TECHNICIAN.WAREHOUSE OPERATOR [address] [facility] [place] [address] Chiropractic Practice Manager Internal Medicine 10/20/24 Team Status: Active Member [...] December 07, 2024 End: December 07, 2024 Distance Learning Technician Relationship Specialty Start Date End Date Abby Mcclellan [address] [place] [address] PCP - General Internal Medicine 03/10/24 Distance Learning Technician Relationship Specialty Start Date End Date Abby Mcclellan MD [address] [place], [place] [address] PCP - General Internal Medicine 12/05/12 Kamlesh Acosta, WOUND CARE TECHNICIAN.WAREHOUSE OPERATOR [address] [place] [address] Chiropractic Practice Manager Internal Medicine 10/20/24 Heidy Hawk, MILDRED.CHILD AND ADOLESCENT PSYCHOLOGIST [address] [place] [address] Chiropractic Practice Manager Internal Medicine 12/16/24 Distance Learning Technician Relationship Specialty Start Date End Date Abby Mcclellan MD [address] [place] [address] PCP - General Internal Medicine 12/05/12 Kamlesh Acosta APRN.WAREHOUSE OPERATOR [address] [place] [address] Chiropractic Practice Manager Internal Medicine 10/20/24 Heidy Hawk APRN.CHILD AND ADOLESCENT PSYCHOLOGIST [address] [place] [address] Chiropractic Practice Manager Internal Medicine 12/16/24 Distance Learning Technician Relationship Specialty Start Date End Date Abby Mcclellan MD [address] [place] [address] PCP - General Internal Medicine 12/05/12 Kamlesh Acosta APRN.WAREHOUSE OPERATOR [address] [place] [address] Chiropractic Practice Manager Internal Medicine 10/20/24 Heidy Hawk APRN.CHILD AND ADOLESCENT PSYCHOLOGIST [address] [place] [address] Chiropractic Practice Manager Internal Medicine 12/16/24 Distance Learning Technician Relationship Specialty Start Date End Date Abby Mcclellan MD [address] [place] [address] PCP - General Internal Medicine 12/05/12 Kamlesh Acosta APRN.WAREHOUSE OPERATOR [address] [place] [address] Chiropractic Practice Manager Internal Medicine 10/20/24 Heidy Hawk APRN.CHILD AND ADOLESCENT PSYCHOLOGIST [address] [place] [address] Chiropractic Practice Manager Internal Medicine 12/16/24 Distance Learning Technician Relationship Specialty Start Date End Date Abby Mcclellan MD [address] [place] [address] PCP - General Internal Medicine 12/05/12 Heidy Hawk, WOUND CARE TECHNICIAN.CHILD AND ADOLESCENT PSYCHOLOGIST [address] [place] [address] Chiropractic Practice Manager Internal Medicine 07/06/24 12/15/24 Kamlesh Acosta WOUND CARE TECHNICIAN.WAREHOUSE OPERATOR [address] [place], [place] [address] Chiropractic Practice Manager Internal Medicine 10/20/24 Heidy Hawk, WOUND CARE TECHNICIAN.CHILD AND ADOLESCENT PSYCHOLOGIST [address] [place] [address] Chiropractic Practice Manager Internal Medicine 12/16/24 Team Status: Active Member [...] February 08, 2025 End: February 08, 2025 Hialry Jcakman Attending Provider Active Start: 2024 End: February 08, 2025 Team Status: Inactive Member Role/Relationship Status Dates Dr. Abby Mcclellan MD Primary Care Provider Active Start: February 08, 2025 End: February 08, 2025 Dr. Abby Mcclellan MD Referring Provider Active Start: February 08, 2025 End: February 08, 2025 LANI Cartagena Attending Provider Active St art: February 08, 2025 End: February 08, 2025 Distance Learning Technician Relationship Specialty Start Date End Date Abby Mcclellan MD [address] [place] [address] PCP - General Internal Medicine 12/05/12 Kamlesh Acosta APRN.WAREHOUSE OPERATOR [address] [place], [place] [address] [facility] Internal Medicine 10/20/24 Heidy Hawk APRN.CHILD AND ADOLESCENT PSYCHOLOGIST [address] [place], [place] [address] [facility] Internal Medicine 12/16/24 Scheduled Active and [...] (Given - Provider: Al Araujo APRN - TRANSFORMER MOLDER) glipiZIDE (Glucotrol) tablet 10 mg 10 mg, [...] provider - Provider: Lindsey Tolentino APRN - WAREHOUSE OPERATOR - Reason: Other) 0728 (Unheld by provider [...] dose, Preprocedure, Please send to EP lab ADD-Harvey bag, Suspected Indication (Select all that apply): [...] Anesthesia - Provider: Al Araujo APRN - TRANSFORMER MOLDER)1309 (Anesthesia Volume Adjustment - Provider: Al Araujo, WOUND CARE TECHNICIAN - TRANSFORMER MOLDER) 0064 (Stopped - Provider: Shasta Badillo RN - [...] section and content) DATE CREATED AUTHOR 06/15/2024 [facility] DATE CREATED AUTHOR AUTHOR'S ORGANIZ ATION 01/13/2025 [facility] DATE CREATED AUTHOR AUTHOR'S ORGANIZ ATION 02/18/2025 [facility] FOR RECORDS PERTAINING TO PATIENTS WHO ARE [...] BE BASED ON THE PRIMARY CLINICAL RECORDS. [facility]. provides no warranty or guarantee of the accuracy or completeness of information in this document.
[2025-02-26 01:27] LABS: Reflex Lactate? Y
--- NOTE | 2025-02-26 01:30 | PCM.RX.CS ---
Consult Antibiotic Management Pharmacy has been consulted to manage selected antibiotic: Vancomycin Type of Intervention Type of Consult: New start Suspected Infection Suspected Infection: Sepsis Labs Labs: Sodium 134 mmol/L (133-145) 02/25/25 20:30 Potassium 4.5 mmol/L (3.3-5.1) 02/25/25 20:30 Chloride 99 mmol/L (98-108) 02/25/25 20:30 Carbon Dioxide 22.3 mmol/L (21.0-32.0) 02/25/25 20:30 Anion Gap 13 (5-15) 02/25/25 20:30 BUN 22 mg/dL (4-19) H 02/25/25 20:30 Creatinine 1.06 mg/dL (0.70-1.20) 02/25/25 20:30 Est GFR (MDRD) Non-Af 54 (>60) L 02/25/25 20:30 BUN/Creatinine Ratio 20.8 RATIO (10-20) H 02/25/25 20:30 Glucose 279 mg/dL (70-99) H 02/25/25 20:30 Microbiology Microbiology: Microbiology 02/25/25 21:11 Mucosa - Nose SARS-CoV-2, Influenza & RSV (PCR) - Final Dosing Weight Weight used for dosin kg Estimated Creatinine Clearance Estimated Creatinine Clearance: 50 Goal Trough Goal Trough: 15-20 mcg/mL Pharmacy Plan for Drug Dosing Pharmacy Plan for Drug Dosing: Pharmacy Service will continue to monitor and adjust dosing as required. Follow-Up Labs Follow-Up Labs: Trough: Vancomycin Date/Time Labs Ordered Labs to be done on [date and time ordered]: 02/27/25 @1131
[2025-02-26] MEDS: Pantoprazole Sodium 40 MG in 0.9% Normal Saline (100mL MB+) 100 ML 330 MG IV ×2 (02:05→20:43)
[2025-02-26] MEDS: 0.9% Normal Saline (1000mL) 1,000 ML 999 ML IV (02:06)
[2025-02-26 02:21] LABS: Barbiturate Urine NEGATIVE (< 200 ng/mL); Benzodiazepine Urine NEGATIVE (< 200 ng/mL); PCP Urine NEGATIVE (< 25 ng/mL); THC Urine NEGATIVE (< 50 ng/mL)
[2025-02-26 02:23] LABS: Alcohol, Blood (Medical)-Serum < 10.1 mg/dL (<=10.0)
[2025-02-26] MEDS: Digoxin 250 MCG/ML Ampul 500 MCG IV (02:23)
[2025-02-26 02:35] LABS: Allen Test Positive; Base Excess -5 mmol/L (-2 to +2); PO2 61 mmHG (75-100); SITE R Radial; SO2 92 % (95-99)
[2025-02-26 02:37] LABS: Vitamin B12 378 pg/mL (180-914)
[2025-02-26 02:38] LABS: FOLATES,SERUM (FOLIC ACID) 8.82 ng/mL (4.60-34.80)
[2025-02-26] MEDS: Albumin Human 25% (100 mL) 25 GM/100 ML BAG IV (03:35)
[2025-02-26 05:09] LABS: Hematocrit 37.1 % (37-47); Hemoglobin 12.5 g/dL (12.0-15.0); Immature Granulocytes Count 0.190 X10^3/uL (0.0-0.0); Mean Corp Hgb Conc 33.7 g/dL (32-36); Mean Corpuscular Volume 93.0 fL (81-99); Mean Platelet Vol. 11.4 fl (6.2-12.0); NRBC Flagged by Analyzer 0 % (0-5); POSITIVE COUNT YES; POSITIVE DIFFERENTIAL YES; Platelet Count 94 K/mm3 (150-450); RBC Distribution Width CV 13.2 % (11.6-14.6); RBC Distribution Width SD 45.2 fl (35.1-43.9); Red Blood Count 3.99 M/mm3 (4.2-5.4); White Blood Count 11.3 K/mm3 (4.4-11.0)
[2025-02-26 05:10] LABS: Differential Indicated SCAN CRITERIA MET
[2025-02-26 05:27] LABS: Reflex Lactate? Y
[2025-02-26 05:40] LABS: AST(SGOT) 31 U/L (<=31); Alanine Aminotransfer ALT/SGPT 30 U/L (<=34); Albumin, Serum 3.5 g/dL (3.4-4.8); Alkaline Phosphatase 43 U/L (35-104); Anion Gap 13 (5-15); BUN 18 mg/dL (4-19); BUN/Creat Ratio 16.1 RATIO (10-20); Calcium,Total 8.2 mg/dL (7.6-11.0); Carbon Dioxide 19.1 mmol/L (21.0-32.0); Chloride 105 mmol/L (98-108); Estimated Creatinine Clearance 48.45 ml/min (50-250); Globulin 2.0 g/dL (2.2-4.2); Glucose 263 mg/dL (70-99); Potassium 3.8 mmol/L (3.3-5.1)
[2025-02-26 05:46] LABS: Differential Comment SCANNED
[2025-02-26] MEDS: Amiodarone 150 MG in Dextrose 5%-Water (100mL Bag) 100 ML 600 MG IV BOLUS (05:59)
[2025-02-26] MEDS: Norepinephrine 8 MG in 0.9% Normal Saline (250mL Bag) 242 ML 9.4 MG CONT INF (05:59)
[2025-02-26] MEDS: Amiodarone 360 MG in Dextrose 5% Viaflo Bag 192.8 ML 33.3 MG CONT INF (06:14)
[2025-02-26 06:37] LABS: BETA-HYDROXYBUTYRATE 0.4 mmol/L (0.0-0.3)
[2025-02-26 06:37] LABS: Cholesterol 103 mg/dL (<=200); Low Density Lipoprotein Calc. 55 mg/dL; Triglycerides 100 mg/dL; Very Low Density Lipoprotein 20 mg/dL (5-40); cholesterol:hdl ratio screen 3.69
[2025-02-26] MEDS: Piperacil/Tazobactam 3.375 GM in 0.9% Normal Saline (50mL MB+) 50 ML IV ×3 (06:52→20:43)
--- NOTE | 2025-02-26 07:09 | CON.PCM.CC_ITS ---
Assessment & Plan Assessment/Plan (1) Septic shock: PLAN: Plan RECOMMENDATIONS: 1. Continue empiric antibiotics. 2. Continue Levophed to maintain mean arterial pressure at or above 65 mmHg. 3. Continue amiodarone as ordered. 4. Given positive blood cultures, will obtain echocardiogram. 5. Infectious diseases consultation. 6. Patient to remain n.p.o. for now pending improvement in mental status. IMPRESSIONS: 1. Septic shock The patient presented with sepsis due to gram-positive bacteremia with acute sepsis related organ dysfunction as evidenced by altered mental status and lactic acidemia. The patient did receive IV fluid resuscitation, but was ultimately placed on vasopressor support due to hemodynamic instability. Initial CT chest/abdomen/pelvis demonstrated no significant pathology. However, subsequent blood cultures were positive for gram-positive cocci. The patient does have a history of a TAVR with bioprosthetic aortic valve in place along with a pacemaker. Will obtain echocardiogram along with ID consultation. 2. Encephalopathy Most likely related to presenting sepsis. CT head was unremarkable. TSH is within normal limits. Continue supportive measures as noted above. 3. Morbid obesity/hypertension/hyperlipidemia/diabetes mellitus/paroxysmal atrial fibrillation/history of complete heart block status post pacemaker placement/aortic valve stenosis status post TAVR Complicates care, management, recovery and prognosis. Continue to hold home antihypertensives. Will initiate sliding scale insulin coverage and Accu-Cheks. Continue amiodarone as ordered to address paroxysmal atrial fibrillation. While the patient was being maintained on Eliquis on an outpatient basis, if she is not able to clear her sensorium enough to take in p.o. intake, she will require initiation of a heparin infusion. TIME: 35 minutes of critical care time, independent of procedures, was spent addressing the patient's septic shock, encephalopathy, review of all data and collaboration with the care team. HPI Consult Data Date of Consult: 02/26/25 HPI Narrative Reason for Consultation: Sepsis HPI Narrative: The patient is a 74-year-old female, with a history as outlined below, who presented to the emergency department on February 25 with fever and altered mental status. History pertinent to the patient's hospitalization was obtained primarily via chart review, as the patient is too encephalopathic to provide any additional details. She does have a documented history that includes paroxysmal atrial fibrillation, valvular heart disease status post, history of intermittent heart block requiring pacemaker placement, diabetes mellitus and hypertension. She was last evaluated 2 weeks ago in the cardiology clinic. On presentation to the emergency department, the patient was documented to be febrile with a temperature of 103 ?F. She was also notably tachycardic and tachypneic. Presenting blood pressure was documented to be 121/73 mmHg. The patient was maintaining appropriate oxygen saturations on room air. Laboratory evaluation revealed a white blood cell count of 12,000. Platelet count was low at 115,000. Arterial blood gas was notable for a pH of 7.45 with a pCO2 of 27 and PO2 of 61. Chemistry profile was unremarkable, with the exception of a lactate of 2.2. Total bilirubin was noted to be 1.86. TSH was within normal limits. Urine analysis was negative for nitrites and leukocyte esterase. Toxicology screen, including alcohol level was negative. CT imaging of the chest/abdomen/pelvis was obtained without any discernible pathology identified. COVID, influenza and RSV PCR's were negative. The patient received supplemental IV fluid hydration and was initiated on antimicrobial therapy. She was admitted to the medical intensive care unit for further management. Overnight, the patient's hemodynamic status remains somewhat tenuous despite fluid resuscitation. The patient was ultimately placed on low-dose vasopressor support this morning to maintain hemodynamic stability. I also spoke with microbiology who indicated that the patient's blood cultures were all positive for gram-positive cocci in chains. [facility] Medical History Intermittent complete heart block Presence of cardiac pacemaker Obesity Diabetes COVID-19 virus detected (05/19/20) Atrial fibrillation with rapid ventricular response (08/2015) Right bundle branch block (RBBB) Type 2 diabetes mellitus Nonrheumatic aortic (valve) stenosis Essential (primary) hypertension Microcalcification of left breast on mammogram Abnormal mammogram of left breast Sepsis Diverticulitis Encephalopathy DKA (diabetic ketoacidoses) Arthritis Aortic valve calcification Diabetes type 2, uncontrolled Morbid obesity Home Medications ?Medication ?Instructions ?Recorded ?Last Taken ?Type calcium carbonate (Calcium 500) 500 mg PO DAILY supple ment 01/05/19 Unknown History glucosamine HCl 1,500 mg tablet 1,500 mg PO DAILY 03/30 04/17 Unknown History metoprolol succinate 25 mg 50 mg PO DAILY bp 06/01/24 Unknown History tablet,extended release 24 hr glimepiride 2 mg tablet 4 mg PO BID 06/02/24 Unknown History metformin 500 mg tablet 1,000 mg PO BID diabetes 12/19 Unknown History apixaban 5 mg tablet (Eliquis) 5 mg PO BID #180 tabs 0 02/08/25 Unknown Rx losartan 50 mg tablet 50 mg PO QDAY 02/08/25 Unkno wn History Allergy/AdvReac Type Severity Reaction Status Date / Time atorvastatin (From Lipitor) Allergy Intermediate Rash Verified 02/08/25 10:33 Family History Father COPD (chronic obstructive pulmonary disease) CAD (coronary artery disease) Mother Cancer Breast cancer Surgical History History of right hip replacement (12/02/19) history left breast stereotactic biopsy (02/10/18) History of total right knee replacement (TKR) History of total left knee replacement (01/31/09) History of total hysterectomy History of appendectomy Social History Smoking Status: Never smoker second hand exposure: No alcohol intake: never substance use type: does not use caffeine: No what type of physical activity do you participate in: none frequency: does not exercise seatbelt use: always ROS Review of Systems ROS Unobtainable: due to mental status Physical Exam Const Constitutional Narrative: The patient will arouse to verbal stimulation but is disoriented and confused. She is alert and oriented to person only. General Appearance: lethargic and ill appearing HEENT normocephalic and head/scalp atraumatic HEENT Narrative: Dry mucous membranes. Eyes PERRL, EOMs intact bilaterally and conjunctivae normal Neck supple General: trachea midline Chest inspection of chest normal Resp normal respiratory effort Effort and Inspection: tachypneic Auscultation: Negative for rales, rhonchi or wheezes Cardio regular rate and regular rhythm GI normal to inspection, nondistended, normoactive bowel sounds Extremity no clubbing, cyanosis or edema Skin no rashes or lesions noted Neuro CN's II-XII intact bilaterally and no focal motor deficits Psych Mood & Affect: flat affect Lab / Micro Data 02/26/25 04:51 02/26/25 04:51 Labs: Laboratory Results - last 24 hr 02/25/25 20:30: WBC 11.7 H, RBC 4.59, Hgb 14.3, Hct 42.3, MCV 92.2, MCH 31.2, MCHC 33.8, RDW Std Deviation 44.8 H, RDW Coeff of Yovany 13.2, Plt Count 115 L, MPV 11.4, Immature Gran % (Auto) 0.600, Neut % (Auto) 89.7 H, Lymph % (Auto) 5.8 L, [place] % (Auto) 3.0, Eos % (Auto) 0.0, Baso % (Auto) 0.9, Absolute Neuts (auto) 10.5 H, Absolute Lymphs (auto) 0.68 L, Nucleated RBC % 0, PT 15.5 H, INR 1.2, APTT 30.0, Sodium 134, Potassium 4.5, Chloride 99, Carbon Dioxide 22.3, Anion Gap 13, BUN 22 H, Creatinine 1.06, Estim Creat Clear Calc 50.25, Est GFR (MDRD) Non-Af 54 L, BUN/Creatinine Ratio 20.8 H, Glucose 279 H, Calcium 9.6, Total Bilirubin 1.33 H, AST 21, ALT 27, Alkaline Phosphatase 65, Total Protein 6.7, Albumin 4.1, Globulin 2.6, Albumin/Globulin Ratio 1.5 02/25/25 20:50: Lactic Acid 2.2 H* 02/25/25 21:10: Urine Color Yellow, Urine Clarity Sl. Cloudy, Urine pH 7.0, Ur Specific [place] 1.005, Urine Protein 30 H, Urine Glucose (UA) 1000 H, Urine Ketones Negative, Urine Occult Blood 25 H, Urine Nitrite Negative, Urine Bilirubin Negative, Urine Urobilinogen Normal, Ur Leukocyte Esterase Negative, Urine RBC 0-5 SEEN, Urine WBC 0-5 SEEN, Ur Squamous Epith Cells 0-5 SEEN, Urine Bacteria 0 SEEN, Urine Mucus 0 SEEN 02/26/25 01:19: Lactic Acid 2.2 H*, Vitamin B12 378, Serum Folate 8.82, b- Hydroxybutyric mmol/L 0.4 H, TSH 1.010, Ethyl Alcohol < 10.1 02/26/25 01:30: Urine Opiates Screen NEGATIVE, U Buprenorphine Qual NEGATIVE, Ur Oxycodone Screen NEGATIVE, Urine Methadone Screen NEGATIVE, Urine Fentanyl Screen NEGATIVE, Ur Barbiturates Screen NEGATIVE, Ur Phencyclidine Scrn NEGATIVE, Ur Amphetamines Screen NEGATIVE, U Benzodiazepines Scrn NEGATIVE, Urine Cocaine Screen NEGATIVE, U Cannabinoids Screen NEGATIVE 02/26/25 04:51: WBC 11.3 H, RBC 3.99 L, Hgb 12.5, Hct 37.1, MCV 93.0, MCH 31.3, MCHC 33.7, RDW Std Deviation 45.2 H, RDW Coeff of [place]ov[place] 13.2, Plt Count 94 L, MPV 11.4, Immature Gran % (Auto) 1.700 H, Neut % (Auto) 90.0 H, Lymph % (Auto) 2.8 L , [place] % (Auto) 4.2, Eos % (Auto) 0.3, Baso % (Auto) 1.0, Absolute Neuts (auto) 10.2 H, Absolute Lymphs (auto) 0.31 L, Nucleated RBC % 0, Differential Comment SCANNED, Platelet Estimate MOD DEC, Sodium 137, Potassium 3.8, Chloride 105, C arbon Dioxide 19.1 L, Anion Gap 13, BUN 18, Creatinine 1.11, Estim Creat Clear Calc 48.45 L, Est GFR (MDRD) Non-Af 52 L, BUN/Creatinine Ratio 16.1, Glucose 263 H, Calcium 8.2, Total Bilirubin 1.86 H, AST 31, ALT 30, Alkaline Phosphatase 43, Total Protein 5.5 L, Albumin 3.5, Globulin 2.0 L, Albumin/Globulin Ratio 1.8, Triglycerides 100, Cholesterol 103, LDL Cholesterol, Calc 55, VLDL Cholesterol 20, HDL Cholesterol 28 L, Cholesterol/HDL Ratio 3.69 Micro: Microbiology 02/25/25 20:30 Blood Culture (Wb) - Venous Blood Culture - Preliminary 02/25/25 21:11 Mucosa - Nose SARS-CoV-2, Influenza & RSV (PCR) - Final ABG Data ABG results: ABG 02/26/25 02:32 Specimen Type ART Sample Site R Radial pH 7.45 Bicarbonate Actual 19.2 L Total CO2 20 Base Excess -5 L O2 Saturation 92 L ABG pCO2 27.6 L ABG pO2 61 L [place] Test Positive O2 Delivery Device Room Air Vent Mode Not entered Imaging Radiology Impression Brain CT 02/25/25 21:45 IMPRESSION: No acute intracranial findings Reading Location: [facility] Chest X-Ray 02/25/25 21:45 IMPRESSION: No acute chest findings. Reading Location: [facility] Chest/Abdomen/Pelvis CT 02/25/25 22:19 IMPRESSION: No acute chest abdomen or pelvic pathology. Reading Location: [facility] Charges/Coding Procedures Hospitalists Procedures: [id number] Critical Care 1st Hr
--- NOTE | 2025-02-26 07:35 | ECHOCS_ITS ---
Reason For Study Reason For Study: GRAM+ BACTEREMIA. Procedure This was a 2D Doppler, Color Flow transthoracic echocardiogram. The study was technically difficult. The patient was scanned supine. Contrast injection was performed. Exam performed portable in ICU/CCU. Left Ventricle Normal left ventricular size. Mildly increased left ventricular wall thickness. Normal LVEF with estimated ejection fraction of 55 to 60%. No regional wall motion abnormalities. Indeterminate diastolic function due to elevated LA pressure secondary to mitral valve stenosis. Right Ventricle Mildly increased right ventricular size, normal wall thickness, preserved function. Atria There is mild biatrial dilatation. Mitral Valve Bileaflet diffuse mitral valve thickening. Mild mitral valve stenosis. Trivial mitral valve insufficiency. Tricuspid Valve Normal tricuspid valve. Unable to estimate RV systolic pressure due to inadequate jet, pulmonary artery pressure probably normal. Mild tricuspid valve insufficiency. Aortic Valve Not well-visualized. 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 Pulmonic Valve The pulmonic valve is not well visualized. Great Vessels The aortic root is not well visualized. Pericardium/Pleural No pericardial effusion. Epicardial fat. Medication Diluted definity 1.0ml given slow IV push to enhance endocardial definition. MMode/2D Measurements & Calculations LVIDd: 4.2 cm IVSd: 1.1 cm Ao root diam: 2.6 cm LVIDs: 2.9 cm LVPWd: 1.1 cm FS: 31.8 % LAV(MOD-bp): 41.2 ml LVAd ap4: 20.7 cm2 LVAd ap2: 20.2 cm2 LAV(MOD-bp) Indexed: 20.6 ml/m2 LVLd ap4: 7.4 cm LVLd ap2: 7.1 cm LAV(MOD-sp2): 44.2 ml EDV(MOD-sp4): 48.5 ml EDV(MOD-sp2): 46.6 ml LAV(MOD-sp4): 35.9 ml EDV(sp4-el): 49.5 ml EDV(sp2-el): 48.5 ml LVAs ap4: 10.8 cm2 LVAs ap2: 10.5 cm2 LVLs ap4: 6.4 cm LVLs ap2: 6.3 cm ESV(MOD-sp4): 15.3 ml ESV(MOD-sp2): 14.6 ml ESV(sp4-el): 15.5 ml ESV(sp2-el): 14.8 ml EF(MOD-sp4): 68.5 % EF(MOD-sp2): 68.6 % EF(sp4-el): 68.8 % SV(MOD-sp4): 33.2 ml SV(MOD-sp2): 32.0 ml SV(sp4-el): 34.1 ml SI(MOD-sp4): 16.6 ml/m2 SI(MOD-sp2): 16.0 ml/m2 LA A4 area: 15.5 cm2 LA dimension(2D): 4.1 cm TAPSE: 1.4 cm Time Measurements MV dec time: 0.23 sec Doppler Measurements & Calculations MV E max alcides: 136.0 cm/sec Lat Peak E' Alcides: 9.4 cm/sec Med Peak E' Alcides: 10.4 cm/sec MV A max alcides: 140.1 cm/sec E/E' lat: 14.5 E/E' med: 13.0 MV E/A: 0.97 MV V2 max: 150.7 cm/sec MV P1/2t max alcides: 147.1 cm/sec Ao V2 max: 181.9 cm/sec MV max P.1 mmHg MV P1/2t: 66.7 msec Ao max P.2 mmHg MV V2 mean: 104.6 cm/sec MV dec slope: 645.9 cm/sec2 Ao V2 mean: 118.8 cm/sec MV mean P.7 mmHg MVA(P1/2t): 3.3 cm2 Ao mean P.3 mmHg MV V2 VTI: 34.2 cm Ao V2 VTI: 31.6 cm AV (velocity ratio): 0.51 LV V1 max: 93.3 cm/sec PA V2 max: 64.5 cm/sec TR max alcides: 264.0 cm/sec LV V1 max P.5 mmHg PA V2 mean: 50.9 cm/sec TR max P.9 mmHg LV V1 mean P.6 mmHg LV V1 mean: 59.3 cm/sec LV V1 VTI: 16.3 cm ECHO/Echo Complete W/ Contrast Interpretation Summary Normal left ventricular size. Mildly increased left ventricular wall thickness. Normal LVEF with estimated ejection fraction of 55 to 60%. No regional wall motion abnormalities. Indeterminate adriel stolic function due to elevated LA pressure secondary to mitral valve stenosis. Mildly increased right ventricular size, normal wall thickness, preserved funct ion. Not well-visualized bioprosthetic valve. 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 Bileaflet diffuse mitral valve thickening with heavy calcification in the poste rior mitral leaflet and mild mitral stenosis by Doppler measurements. Ordering Physician: Donnell Mendez Referring Physician: Marleny Camacho Performed By: Jennifer Mays, RDCS, RVT
[2025-02-26] MEDS: TITRATION PARAMETER CHANGE 1 EACH IV (08:26)
[2025-02-26 09:22] LABS: Troponin T High Sensitivity 31 ng/L (<=14)
--- NOTE | 2025-02-26 10:05 | RAD_ITS ---
PROCEDURE: CHEST 1 VIEW (PORTABLE) 02/26/2025 REASON FOR EXAM: SHORTNESS OF BREATH TECHNIQUE: Frontal view of the chest. COMPARISON: Chest x-ray of 02/25/2025. RAD/Chest 1 View (Portable) IMPRESSION: Lungs are hypoinflated, and examination is further limited by some degree of pa tient motion. No significant interval pneumonic process seen. No pleural effusion or pneumothorax is noted. The cardiomediastinal silhouette is stable, with a calcified and tortuous aorta noted. Aortic valve stent graft and left thoracic transvenous pacemaker with atrial and ventricular leads appear stable. No interval osseous change is noted. Reading Location: [place] [id number]
[2025-02-26 11:10] LABS: Troponin T High Sens 2 HR 38 ng/L (<=14)
--- NOTE | 2025-02-26 11:20 | RAD_ITS ---
PROCEDURE: CXR FOR LINE PLACEMENT 02/26/2025 REASON FOR EXAM: CONFIRM PICC LINE TECHNIQUE: CXR FOR LINE PLACEMENT COMPARISON: Prior study dated February 25, 2025. FINDINGS: A right-sided PICC line catheter has been placed with the tip at the junction of the superior vena cava and right atrium. EKG electrodes are seen. Vascular congestion and mild CHF. Degenerative changes of the shoulder joints. RAD/CXR for Line Placement IMPRESSION: The tip of the PICC line catheter is at the junction of the superior vena cava and right atrium. Reading Location: [id number]
[2025-02-26] MEDS: Amiodarone 360 MG in Dextrose 5% Viaflo Bag 192.8 ML 16.7 MG CONT INF ×2 (12:15→22:36)
[2025-02-26] MEDS: Vancomycin HCl 1,000 MG in 0.9% Normal Saline (250mL Bag) 250 ML 250 MG IV (12:37)
--- NOTE | 2025-02-26 12:46 | CASEMGMT ---
RN CM Assessment Face to Face with patient for initial transition planning/care coordination assessment. Pt is currently disoriented. Pt's at bedside and willing to help answer this RN CM questions for initial assessment. Care providers, pharmacy, and demographics verified. Admitting dx: Sepsis of unknown origin LACE Strata: 2 PCP: Marleny Camacho Specialists: states that the pt sees [facility] Preferred Pharmacy: [facility] Insurance: [employer] [facility] Prescription Benefit: Yes LNOK: Anibal Fabricio (H), Uma Garrison (Sister) Living Arrangements: Pt lives with her in a 2 story home with 2 steps to enter ADLs/IADLs: Anibal states that the pt is indep at baseline. Current 6-Click score is 6. Per ICU rounds, PT is to be held today. Transportation: Self normally, DME: states that the pt does not wear any additional oxygen at baseline. CM to follow. Pt states that the pt has a BGM with sufficient supplies to care for her DM. also states that the pt has a FWW, Cane, and lift chair HHC/SNF: reports HH history x 15 years ago after knee surgery. Denies SNF hx Pt?s goal: TBD Plan: TBD. At this time, the pt's reports that it is too early to tell what the pt will need or want at the time of DC. Follow for SNF, HH, and/or home oxygen needs. Noted that the pt takes Eliquis @ home. states that they are able to afford this and denies the savings card at this time. Pt's denies any further questions or concerns at this time. CM to follow. Iron Regalado RN, CM
--- NOTE | 2025-02-26 12:59 | PN_ITS ---
Subjective Subjective Patient seen and examined. Patient is quite lethargic and still not really able to answer any questions. I saw her with her nurse by bedside. Patient remains febrile and tachypneic. She is on 2 L of oxygen and on broad-spectrum antibiotics. Unable to do review of systems. Objective Data Objective Data Vital Signs: Vital Signs Temp Pulse Resp BP Pulse Ox O2 Del Method O2 Flow Rate 102.9 F H 92 36 H 124/75 H 98 Nasal Cannula 2 02/26/25 11:00 02/26/25 11:00 02/26/25 11:00 02/26/25 11:00 02/26/25 11:00 02/26/25 11:00 02/26/25 11:00 Oxygen Flow Rate (L/min) 2 Oxygen Delivery Method Nasal Cannula Weight: 241 lb 13.553 oz Body Mass Index (BMI) 47.5 Intake & Output: Intake and Output for Last 24 Hours 02/24/25 02/25/25 02/26/25 23:59 23:59 23:59 Intake Total 4233.13 / 4233.13 Output Total 450 / 450 Balance 3783.13 / 3783.13 Lab / Micro Data 02/26/25 04:51 02/26/25 04:51 Labs: Laboratory Results - last 24 hr 02/25/25 20:30: WBC 11.7 H, RBC 4.59, Hgb 14.3, Hct 42.3, MCV 92.2, MCH 31.2, MCHC 33.8, RDW Std Deviation 44.8 H, RDW Coeff of Yovany 13.2, Plt Count 115 L, MPV 11.4, Immature Gran % (Auto) 0.600, Neut % (Auto) 89.7 H, Lymph % (Auto) 5.8 L, [place] % (Auto) 3.0, Eos % (Auto) 0.0, Baso % (Auto) 0.9, Absolute Neuts (auto) 10.5 H, Absolute Lymphs (auto) 0.68 L, Nucleated RBC % 0, PT 15.5 H, INR 1.2, APTT 30.0, Sodium 134, Potassium 4.5, Chloride 99, Carbon Dioxide 22.3, Anion Gap 13, BUN 22 H, Creatinine 1.06, Estim Creat Clear Calc 50.25, Est GFR (MDRD) Non-Af 54 L, BUN/Creatinine Ratio 20.8 H, Glucose 279 H, Calcium 9.6, Total Bilirubin 1.33 H, AST 21, ALT 27, Alkaline Phosphatase 65, Total Protein 6.7, Albumin 4.1, Globulin 2.6, Albumin/Globulin Ratio 1.5 02/25/25 20:50: Lactic Acid 2.2 H* 02/25/25 21:10: Urine Color Yellow, Urine Clarity Sl. Cloudy, Urine pH 7.0, Ur Specific [place] 1.005, Urine Protein 30 H, Urine Glucose (UA) 1000 H, Urine Ketones Negative, Urine Occult Blood 25 H, Urine Nitrite Negative, Urine Bilirubin Negative, Urine Urobilinogen Normal, Ur Leukocyte Esterase Negative, Urine RBC 0-5 SEEN, Urine WBC 0-5 SEEN, Ur Squamous Epith Cells 0-5 SEEN, Urine Bacteria 0 SEEN, Urine Mucus 0 SEEN 02/26/25 01:19: Lactic Acid 2.2 H*, Vitamin B12 378, Serum Folate 8.82, b- Hydroxybutyric mmol/L 0.4 H, TSH 1.010, Ethyl Alcohol < 10.1 02/26/25 01:30: Urine Opiates Screen NEGATIVE, U Buprenorphine Qual NEGATIVE, Ur Oxycodone Screen NEGATIVE, Urine Methadone Screen NEGATIVE, Urine Fentanyl Screen NEGATIVE, Ur Barbiturates Screen NEGATIVE, Ur Phencyclidine Scrn NEGATIVE, Ur Amphetamines Screen NEGATIVE, U Benzodiazepines Scrn NEGATIVE, Urine Cocaine Screen NEGATIVE, U Cannabinoids Screen NEGATIVE 02/26/25 04:51: WBC 11.3 H, RBC 3.99 L, Hgb 12.5, Hct 37.1, MCV 93.0, MCH 31.3, MCHC 33.7, RDW Std Deviation 45.2 H, RDW Coeff of Yovany 13.2, Plt Count 94 L, MPV 11.4, Immature Gran % (Auto) 1.700 H, Neut % (Auto) 90.0 H, Lymph % (Auto) 2.8 L , [place] % (Auto) 4.2, Eos % (Auto) 0.3, Baso % (Auto) 1.0, Absolute Neuts (auto) 10.2 H, Absolute Lymphs (auto) 0.31 L, Nucleated RBC % 0, Differential Comment SCANNED, Platelet Estimate MOD DEC, Sodium 137, Potassium 3.8, Chloride 105, C arbon Dioxide 19.1 L, Anion Gap 13, BUN 18, Creatinine 1.11, Estim Creat Clear Calc 48.45 L, Est GFR (MDRD) Non-Af 52 L, BUN/Creatinine Ratio 16.1, Glucose 263 H, Hemoglobin A1c 8.6 H, Calcium 8.2, Total Bilirubin 1.86 H, AST 31, ALT 30, Alkaline Phosphatase 43, Total Protein 5.5 L, Albumin 3.5, Globulin 2.0 L, Albumin/Globulin Ratio 1.8, Triglycerides 100, Cholesterol 103, LDL Cholesterol, Calc 55, VLDL Cholesterol 20, HDL Cholesterol 28 L, Cholesterol/HDL Ratio 3.69 02/26/25 06:05: Lactic Acid 2.3 H* 02/26/25 08:15: Troponin T High Sens 31 H 02/26/25 10:20: Troponin T Hi Sens 2 Hr 38 H Micro: Microbiology 02/25/25 21:25 Blood Culture (Wb) - Left Hand Bacteria Detection (PCR) - Final Streptococcus agalactiae (B) 02/25/25 21:25 Blood Culture (Wb) - Left Hand Blood Culture - Preliminary 02/25/25 20:30 Blood Culture (Wb) - Venous Blood Culture - Preliminary 02/25/25 22:30 Mucosa - Nose Respiratory Panel (PCR) - Final 02/25/25 21:11 Mucosa - Nose SARS-CoV-2, Influenza & RSV (PCR) - Final ABG Data ABG results: ABG 02/26/25 02:32 Specimen Type ART Sample Site R Radial pH 7.45 Bicarbonate Actual 19.2 L Total CO2 20 Base Excess -5 L O2 Saturation 92 L ABG pCO2 27.6 L ABG pO2 61 L [place] Test Positive O2 Delivery Device Room Air Vent Mode Not entered Radiography Diagnostic Testing: Radiology Impression Brain CT 02/25/25 21:45 IMPRESSION: No acute intracranial findings Reading Location: [facility] Chest X-Ray 02/25/25 21:45 IMPRESSION: No acute chest findings. Reading Location: [facility] Chest/Abdomen/Pelvis CT 02/25/25 22:19 IMPRESSION: No acute chest abdomen or pelvic pathology. Reading Location: [facility] Chest X-Ray 02/26/25 10:05 IMPRESSION: Lungs are hypoinflated, and examination is further limited by some degree of patient motion. No significant interval pneumonic process seen. No pleural effusion or pneumothorax is noted. The cardiomediastinal silhouette is stable, with a calcified and tortuous aorta noted. Aortic valve stent graft and left thoracic transvenous pacemaker with atrial and ventricular leads appear stable. No interval osseous change is noted. Reading Location: [facility] Physical Exam Const Constitutional Narrative: Patient able to mumble in response to questions but is very confused and lethargic. Orientation / Consciousness: confused and lethargic HEENT head/scalp atraumatic HEENT Narrative: Very dry lips and oral mucosa. Neck no lymphadenopathy and supple Lymph Lymphatic: no lymphedema noted Resp Resp Narrative: Tachypneic. Mildly diminished breath sounds bibasilarly. No wheezes or crackles. On 2 L of oxygen by nasal cannula. Cardio regular rate, regular rhythm, S1 normal heart sound, S2 normal heart sound and no murmurs GI normal to inspection, nondistended, normoactive bowel sounds, soft to palpation and non-tender Extremity normal capillary refill and no clubbing, cyanosis or edema General Extremity: no tenderness to palpation of joints or extremities Skin General Skin Exam: no breakdown Neuro Neuro Narrative: Confused, lethargic, moves all extremities spontaneously. Motor Exam: general weakness Assessment & Plan Assessment/Plan (1) Septic shock: (2) Metabolic encephalopathy: (3) Lactic acidosis: PLAN: Plan #Septic shock * Etiology is not clear. Still remains febrile with temperature over one 112.9 Fahrenheit. Also on low-dose Levophed. On IV vancomycin and Zosyn. * Blood and urine cultures ordered. Currently NPO. Critical care on board. * Continue hydrating with IV fluids. #Acute encephalopathy likely due to septic shock: Management as above. Urine drug screen is negative. #Paroxysmal A-fib: Eliquis on hold. Currently on therapeutic Lovenox. Rate controlled #Benign essential hypertension: On losartan and metoprolol which are both on hold due to septic shock #Hyperlipidemia: On statin #History of heart block: s/p pacemaker #DVT prophylaxis: on lovenox therapeutic dose. CODE STATUS: * Patient's counseled extensively about different types of CODE STATUS including full code, DNR CCA and DNR CCA. elects for her to be full code. * Total [id number] time 16 minutes. * Total time spent on evaluation and management of patient, reviewing chart and specialist notes, discussing plan with patient's , discussion with nursing and ancillary staff as well as documentation: 35 mins Charges/Coding Visit Charges Inpatient E&M: 27426 PROLNG IP/OBS E/M EA 15 MIN Procedures Hospitalists Procedures: 30689 Advncd Care Plan 30 Min
[2025-02-26 13:36] LABS: Troponin T High Sens 4 HR 41 ng/L (<=14)
--- NOTE | 2025-02-26 14:58 | CASEMGMT ---
Social Work Pt's spouse states pt has completed HCPOA and living will and he will bring a copy in for scanning into the medical record. NAIDA Carter
--- NOTE | 2025-02-26 15:24 | PCM.CONS.GEN ---
Assessment & Plan Assessment/Plan (1) Septic shock: (2) Streptococcal bacteremia: PLAN: Feeling better. Unclear source of GBS in blood. CT chest/abd/pelvis showed no sign infection. No recent procedures and no focal symptoms. UA neg. TTE showed no vegetation. With h/o TAVR and pacer, will order ALEKSANDAR for 03/01. On empiric vanc/zosyn. If strep is the only growth, plan would be to narrow to ceftriaxone 2gm daily iv. Will follow, thank you HPI Consult Data Date of Consult: 02/26/25 HPI Narrative Reason for Consultation: bacteremia HPI Narrative: LITO GONZALEZ, is a 74 F with h/o TAVR 04/06/2024 and pacer, DM, presented to ED 02/25 with one day h/o altered mental status. No recent illnesses, no new procedures or dental work. Had fever and taken to ED. Admitted to icu on vanc/zosyn. Now bcx with strep. No abd pain, dysuria, rash, aches, congestion, cough, or dyspnea. Family at bedside, she is feeling better. Full ROS performed and neg except as noted above. [facility] Medical History Intermittent complete heart block Presence of cardiac pacemaker Obesity Diabetes COVID-19 virus detected (05/19/20) Atrial fibrillation with rapid ventricular response (08/2015) Right bundle branch block (RBBB) Type 2 diabetes mellitus Nonrheumatic aortic (valve) stenosis Essential (primary) hypertension Microcalcification of left breast on mammogram Abnormal mammogram of left breast Sepsis Diverticulitis Encephalopathy DKA (diabetic ketoacidoses) Arthritis Aortic valve calcification Diabetes type 2, uncontrolled Morbid obesity Home Medications ?Medication ?Instructions ?Recorded ?Last Taken ?Type metoprolol succinate 25 mg 25 mg PO DAILY bp 06/01/24 Unknown History tablet,extended release 24 hr metformin 500 mg tablet 500 mg PO BID diabetes 06/02/24 Unknown History apixaban 5 mg tablet (Eliquis) 5 mg PO BID #180 tabs 02/08/25 Unknown Rx Fulda 3 Fish OiL PO BID supplment 02/26/25 Unknown History blood sugar diagnostic (Accu-Chek 02/26/25 Unknown History Guide test strips) blood-glucose meter (Accu-Chek 02/26/25 Unknown History Guide Me Glucose Meter) calcium 600 mg (as 1 tab PO BID supplement 02/26/25 Unknown History carbonate)-vitamin D3 5 mcg (200 unit) tablet (Calcium 600 + D(3)) glimepiride 4 mg tablet 4 mg PO BID diabetes 02/26/25 Unknown History glucosamine sulfate 500 mg tablet 1,000 mg PO DAILY supplement 02/26/25 Unknown History (Glucosamine) semaglutide 0.25 mg or 0.5 mg (2 0.5 mg subcut QWEEK diabetes 02/26/25 Unknown History mg/3 mL) subcutaneous pen injector (Ozempic) Allergy/AdvReac Type Severity Reaction Status Date / Time atorvastatin (From Lipitor) Allergy Intermediate Rash Verified 02/08/25 10:33 Family History Father COPD (chronic obstructive pulmonary disease) CAD (coronary artery disease) Mother Cancer Breast cancer Surgical History History of right hip replacement (12/02/19) history left breast stereotactic biopsy (02/10/18) History of total right knee replacement (TKR) History of total left knee replacement (01/31/09) History of total hysterectomy History of appendectomy Social History Smoking Status: Never smoker second hand exposure: No alcohol intake: never substance use type: does not use caffeine: No what type of physical activity do you participate in: none frequency: does not exercise seatbelt use: always Physical Exam Const alert and no apparent distress General Appearance: cooperative HEENT normocephalic and head/scalp atraumatic Eyes PERRL and EOMs intact bilaterally Neck supple and No nodes Resp normal air movement and clear to auscultation bilaterally Cardio regular rate and regular rhythm GI soft to palpation, non-tender and non-distended Extremity General Extremity: edema Skin no rashes or lesions noted Skin Narrative: no splinter hemorrhages on hands or feet. No redness/tenderness over L chest pacer Neuro CN's II-XII intact bilaterally Medical Records Data Attestation: I reviewed the patient's medical records Lab / Micro Data 02/26/25 04:51 02/26/25 04:51 Labs: Laboratory Results - last 24 hr 02/25/25 20:30: WBC 11.7 H, RBC 4.59, Hgb 14.3, Hct 42.3, MCV 92.2, MCH 31.2, MCHC 33.8, RDW Std Deviation 44.8 H, RDW Coeff of Yovany 13.2, Plt Count 115 L, MPV 11.4, Immature Gran % (Auto) 0.600, Neut % (Auto) 89.7 H, Lymph % (Auto) 5.8 L, [place] % (Auto) 3.0, Eos % (Auto) 0.0, Baso % (Auto) 0.9, Absolute Neuts (auto) 10.5 H, Absolute Lymphs (auto) 0.68 L, Nucleated RBC % 0, PT 15.5 H, INR 1.2, APTT 30.0, Sodium 134, Potassium 4.5, Chloride 99, Carbon Dioxide 22.3, Anion Gap 13, BUN 22 H, Creatinine 1.06, Estim Creat Clear Calc 50.25, Est GFR (MDRD) Non-Af 54 L, BUN/Creatinine Ratio 20.8 H, Glucose 279 H, Calcium 9.6, Total Bilirubin 1.33 H, AST 21, ALT 27, Alkaline Phosphatase 65, Total Protein 6.7, Albumin 4.1, Globulin 2.6, Albumin/Globulin Ratio 1.5 02/25/25 20:50: Lactic Acid 2.2 H* 02/25/25 21:10: Urine Color Yellow, Urine Clarity Sl. Cloudy, Urine pH 7.0, Ur Specific [place] 1.005, Urine Protein 30 H, Urine Glucose (UA) 1000 H, Urine Ketones Negative, Urine Occult Blood 25 H, Urine Nitrite Negative, Urine Bilirubin Negative, Urine Urobilinogen Normal, Ur Leukocyte Esterase Negative, Urine RBC 0-5 SEEN, Urine WBC 0-5 SEEN, Ur Squamous Epith Cells 0-5 SEEN, Urine Bacteria 0 SEEN, Urine Mucus 0 SEEN 02/26/25 01:19: Lactic Acid 2.2 H*, Vitamin B12 378, Serum Folate 8.82, b-Hydroxybutyric mmol/L 0.4 H, TSH 1.010, Ethyl Alcohol < 10.1 02/26/25 01:30: Urine Opiates Screen NEGATIVE, U Buprenorphine Qual NEGATIVE, Ur Oxycodone Screen NEGATIVE, Urine Methadone Screen NEGATIVE, Urine Fentanyl Screen NEGATIVE, Ur Barbiturates Screen NEGATIVE, Ur Phencyclidine Scrn NEGATIVE, Ur Amphetamines Screen NEGATIVE, U Benzodiazepines Scrn NEGATIVE, Urine Cocaine Screen NEGATIVE, U Cannabinoids Screen NEGATIVE 02/26/25 04:51: WBC 11.3 H, RBC 3.99 L, Hgb 12.5, Hct 37.1, MCV 93.0, MCH 31.3, MCHC 33.7, RDW Std Deviation 45.2 H, RDW Coeff of Yovany 13.2, Plt Count 94 L, MPV 11.4, Immature Gran % (Auto) 1.700 H, Neut % (Auto) 90.0 H, Lymph % (Auto) 2.8 L, [place] % (Auto) 4.2, Eos % (Auto) 0.3, Baso % (Auto) 1.0, Absolute Neuts (auto) 10.2 H, Absolute Lymphs (auto) 0.31 L, Nucleated RBC % 0, Differential Comment SCANNED, Platelet Estimate MOD DEC, Sodium 137, Potassium 3.8, Chloride 105, Carbon Dioxide 19.1 L, Anion Gap 13, BUN 18, Creatinine 1.11, Estim Creat Clear Calc 48.45 L, Est GFR (MDRD) Non-Af 52 L, BUN/Creatinine Ratio 16.1, Glucose 263 H, Hemoglobin A1c 8.6 H, Calcium 8.2, Total Bilirubin 1.86 H, AST 31, ALT 30, Alkaline Phosphatase 43, Total Protein 5.5 L, Albumin 3.5, Globulin 2.0 L, Albumin/Globulin Ratio 1.8, Triglycerides 100, Cholesterol 103, LDL Cholesterol, Calc 55, VLDL Cholesterol 20, HDL Cholesterol 28 L, Cholesterol/HDL Ratio 3.69 02/26/25 06:05: Lactic Acid 2.3 H* 02/26/25 08:15: Troponin T High Sens 31 H 02/26/25 10:20: Troponin T Hi Sens 2 Hr 38 H 02/26/25 12:45: Troponin T Hi Sens 4Hr 41 H Micro: Microbiology 02/25/25 21:25 Blood Culture (Wb) - Left Hand Bacteria Detection (PCR) - Final Streptococcus agalactiae (B) 02/25/25 21:25 Blood Culture (Wb) - Left Hand Blood Culture - Preliminary 02/25/25 20:30 Blood Culture (Wb) - Venous Blood Culture - Preliminary 02/25/25 22:30 Mucosa - Nose Respiratory Panel (PCR) - Final 02/25/25 21:11 Mucosa - Nose SARS-CoV-2, Influenza & RSV (PCR) - Final ABG Data ABG results: ABG 02/26/25 02:32 Specimen Type ART Sample Site R Radial pH 7.45 Bicarbonate Actual 19.2 L Total CO2 20 Base Excess -5 L O2 Saturation 92 L ABG pCO2 27.6 L ABG pO2 61 L [place] Test Positive O2 Delivery Device Room Air Vent Mode Not entered Imaging Radiology Impression Brain CT 02/25/25 21:45 IMPRESSION: No acute intracranial findings Reading Location: [facility] Chest X-Ray 02/25/25 21:45 IMPRESSION: No acute chest findings. Reading Location: [facility] Chest/Abdomen/Pelvis CT 02/25/25 22:19 IMPRESSION: No acute chest abdomen or pelvic pathology. Reading Location: [facility] Echocardiogram 02/26/25 07:35 Interpretation Summary Normal left ventricular size. Mildly increased left ventricular wall thickness. Normal LVEF with estimated ejection fraction of 55 to 60%. No regional wall motion abnormalities. Indeterminate diastolic function due to elevated LA pressure secondary to mitral valve stenosis. Mildly increased right ventricular size, normal wall thickness, preserved function. Not well-visualized bioprosthetic valve. 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 [place]af[place] diffuse mitral valve thickening with heavy calcification in the posterior mitral leaflet and mild mitral stenosis by Doppler measurements. Ordering Physician: Donnell Mendez Referring Physician: Marleny Camacho Performed By: Jennifer Mays, LYNN, RVT Chest X-Ray 02/26/25 10:05 IMPRESSION: Lungs are hypoinflated, and examination is further limited by some degree of patient motion. No significant interval pneumonic process seen. No pleural effusion or pneumothorax is noted. The cardiomediastinal silhouette is stable, with a calcified and tortuous aorta noted. Aortic valve stent graft and left thoracic transvenous pacemaker with atrial and ventricular leads appear stable. No interval osseous change is noted. Reading Location: [facility] Chest X-Ray 02/26/25 11:20 IMPRESSION: The tip of the PICC line catheter is at the junction of the superior vena cava and right atrium. Reading Location: [id number]
[2025-02-26] MEDS: Calcium Carb/Vitamin D 1 TABLET Tablet PO (20:43)
[2025-02-27] VITALS (26 sets, daily range): BP systolic 99–142; BP diastolic 45–100; PULSE 74–137; RESP 20–37; TEMP 36.8–38.2; O2SAT 94–100; BMI 48.9
[2025-02-27] MEDS: Vancomycin HCl 1,000 MG in 0.9% Normal Saline (250mL Bag) 250 ML 250 MG IV (01:09)
[2025-02-27] MEDS: Piperacil/Tazobactam 3.375 GM in 0.9% Normal Saline (50mL MB+) 50 ML IV ×3 (06:13→21:58)
[2025-02-27 08:56] LABS: Hematocrit 39.2 % (37-47); Hemoglobin 13.2 g/dL (12.0-15.0); Immature Granulocytes Count 0.100 X10^3/uL (0.0-0.0); Mean Corp Hgb Conc 33.7 g/dL (32-36); Mean Corpuscular Volume 92.5 fL (81-99); Mean Platelet Vol. 11.8 fl (6.2-12.0); NRBC Flagged by Analyzer 0 % (0-5); POSITIVE COUNT YES; POSITIVE MORPHOLOGY YES; Platelet Count 63 K/mm3 (150-450); RBC Distribution Width CV 13.5 % (11.6-14.6); RBC Distribution Width SD 46.3 fl (35.1-43.9); Red Blood Count 4.24 M/mm3 (4.2-5.4); White Blood Count 9.0 K/mm3 (4.4-11.0)
[2025-02-27 08:57] LABS: Differential Indicated SCAN CRITERIA MET
[2025-02-27 09:13] LABS: Anion Gap 11 (5-15); BUN 19 mg/dL (4-19); BUN/Creat Ratio 21.6 RATIO (10-20); Calcium,Total 8.4 mg/dL (7.6-11.0); Carbon Dioxide 18.8 mmol/L (21.0-32.0); Chloride 108 mmol/L (98-108); Estimated Creatinine Clearance 63.73 ml/min (50-250); Glucose 156 mg/dL (70-99); Potassium 3.6 mmol/L (3.3-5.1)
[2025-02-27] MEDS: Calcium Carb/Vitamin D 1 TABLET Tablet PO ×2 (09:54→22:10)
--- NOTE | 2025-02-27 10:29 | PN.CC_ITS ---
Objective Data Objective Data Vital Signs: Vital Signs Last response 3 Temperature 37.8 C H 02/27/25 09:00 Temperature Source Core 02/27/25 09:00 Pulse Rate 117 H 02/27/25 08:00 Pulse Strength Normal (2+) 02/26/25 10:00 Respiratory Rate 24 H 02/27/25 08:00 Respiratory Effort Normal, Non-Labored 02/27/25 04:00 Respiratory Depth Normal 02/27/25 04:00 Respiratory Pattern Tachypnea 02/27/25 04:00 Blood Pressure 124/69 H 02/27/25 08:00 Blood Pressure Mean 87 02/27/25 08:00 Blood Pressure Source Monitor 02/27/25 08:00 Blood Pressure Position Supine 02/27/25 08:00 Blood Pressure Location Left Forearm 02/27/25 08:00 Pulse Ox 97 02/27/25 08:00 Oxygen Delivery Method Room Air 02/27/25 08:00 Oxygen Flow Rate (L/min) 2 02/27/25 04:00 I&O: I&O Last 24 Hours 3 02/26/25 02/26/25 02/27/25 11:59 23:59 11:59 Intake Total 4033.13 / 4875.98 842.85 / 4875.98 490 / 490 Output Total 250 / 1000 450 / 1000 700 / 700 Balance 3783.13 / 3875.98 392.85 / 3875.98 -210 / -210 I&O: Total Stay 3 02/25/25 20:40 thru 02/27/25 08:00 Intake Total 5365.98 Output Total 1400 Balance 3965.98 Current Meds Ordered / Administered: Current meds ordered / Administered 3 Generic Name Dose Route Start Last Admin Trade Name Freq PRN Reason Stop Dose Admin Acetaminophen 650 mg 02/26/25 10:05 02/27/25 10:25 Acetaminophen 325 Mg Tablet PO 650 mg Q4H PRN PRN Administration Pain 1-10 or Fever Amiodarone HCl 200 mg 02/27/25 10:00 02/27/25 09:55 Amiodarone 200 Mg Tablet PO 200 mg BID JESSE Administration Calcium/Vitamin D 1 tablet 02/26/25 22:00 02/27/25 09:54 Calcium Carb/Vitamin D 1 Tablet Tablet PO 1 tablet BID JESSE Administration Pantoprazole Sodium 40 mg/ 100 mls @ 330 mls/hr 02/26/25 00:46 02/26/25 22:04 Sodium Chloride IV Infused 2200 JESSE Infusion Piperacillin Sod/Tazobactam 50 mls @ 12.5 mls/hr 02/26/25 06:00 02/27/25 06:13 Sod 3.375 gm/ Sodium Chloride IV 12.5 mls/hr Q8 JESSE Administration Vancomycin IV-PHARMACY TO DOSE 500 mls @ 250 mls/hr 02/26/25 01:09 1 each/ Sodium Chloride IV PRN PRN Rx to Dose Protocol Sodium Chloride 250 mls @ 15 mls/hr 02/26/25 01:10 IV .[id number] PRN Saline Flush Sodium Chloride 250 mls @ 15 mls/hr 02/26/25 01:10 IV .[id number] PRN Additional IVPB Infusion Vancomycin HCl 1,000 mg/ 270 mls @ 250 mls/hr 02/26/25 12:00 02/27/25 02:16 Sodium Chloride IV Infused Q12H JESSE Infusion Norepinephrine Bitartrate 8 mg 250 mls @ 9.375 mls/hr 02/26/25 05:45 02/27/25 08:32 / Sodium Chloride CONT INF Not Given .[id number] [facility] Protocol 5 MCG/MIN Insulin Human Lispro 0 unit 02/26/25 16:42 02/27/25 08:19 Insulin Lispro 100 Unit/Ml Insuln.Pen SC Not Given ACHS [facility] Protocol Ondansetron HCl 4 mg 02/26/25 01:09 Ondansetron 4 Mg/2 Ml Vial IV Q6H PRN PRN NAUSEA/VOMITING Sodium Chloride 10 - 40 ml 02/26/25 01:10 0.9% Saline Lock 10 Ml Syringe IV UD PRN SALINE FLUSH Vancomycin Protocol 1 lab 02/27/25 10:30 Vancomycin Trough/Random Due MC 02/27/25 12:30 DAILY [facility] Lab / Micro Data 02/27/25 08:40 02/27/25 08:40 Labs: Laboratory Results - last 24 hr 02/26/25 10:20: Troponin T Hi Sens 2 Hr 38 H 02/26/25 12:45: Troponin T Hi Sens 4Hr 41 H 02/26/25 17:31: POC Glucose 213 H 02/26/25 21:32: POC Glucose 213 H 02/27/25 08:04: POC Glucose 136 H 02/27/25 08:40: WBC 9.0, RBC 4.24, Hgb 13.2, Hct 39.2, MCV 92.5, MCH 31.1, MCHC 33.7, RDW Std Deviation 46.3 H, RDW Coeff of Yovany 13.5, Plt Count 63 L, MPV 11.8, Immature Gran % (Auto) 1.100 H, Neut % (Auto) 73.8 H, Lymph % (Auto) 18.6 L, Craven % (Auto) 5.5, Eos % (Auto) 0.4, Baso % (Auto) 0.6, Absolute Neuts (auto) 6.7, Absolute Lymphs (auto) 1.68, Nucleated RBC % 0, Sodium 137, Potassium 3.6, Chloride 108, Carbon Dioxide 18.8 L, Anion Gap 11, BUN 19, Creatinine 0.86, Estim Creat Clear Calc 63.73, Est GFR (MDRD) Non-Af 70, BUN/Creatinine Ratio 21.6 H, Glucose 156 H, Calcium 8.4 Micro: Microbiology 02/25/25 21:25 Blood Culture (Wb) - Left Hand Bacteria Detection (PCR) - Final Streptococcus agalactiae (B) 02/25/25 21:25 Blood Culture (Wb) - Left Hand Blood Culture - Preliminary Streptococcus agalactiae (B) 02/25/25 20:30 Blood Culture (Wb) - Venous Blood Culture - Preliminary Streptococcus agalactiae (B) 02/25/25 22:30 Mucosa - Nose Respiratory Panel (PCR) - Final Imaging Radiology Impression Echocardiogram 02/26/25 07:35 Interpretation Summary Normal left ventricular size. Mildly increased left ventricular wall thickness. Normal LVEF with estimated ejection fraction of 55 to 60%. No regional wall motion abnormalities. Indeterminate diastolic function due to elevated LA pressure secondary to mitral valve stenosis. Mildly increased right ventricular size, normal wall thickness, preserved function. Not well-visualized bioprosthetic valve. 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 Bileaflet diffuse mitral valve thickening with heavy calcification in the posterior mitral leaflet and mild mitral stenosis by Doppler measurements. Ordering Physician: Donnell Mendez Referring Physician: Marleny Camacho Performed By: Jennifer Mays, RDCS, RVT Chest X-Ray 02/26/25 10:05 IMPRESSION: Lungs are hypoinflated, and examination is further limited by some degree of patient motion. No significant interval pneumonic process seen. No pleural effusion or pneumothorax is noted. The cardiomediastinal silhouette is stable, with a calcified and tortuous aorta noted. Aortic valve stent graft and left thoracic transvenous pacemaker with atrial and ventricular leads appear stable. No interval osseous change is noted. Reading Location: [facility] Chest X-Ray 02/26/25 11:20 IMPRESSION: The tip of the PICC line catheter is at the junction of the superior vena cava and right atrium. Reading Location: [id number] Assessment and Plan . Assessment and plan: IMPRESSIONS: 1. Septic shock - GPC bacteremia in setting of bioprosthetic AV, concern for endocarditis - low grade fevers continue - await culture ID/ sens. - ID consult following 2. Encephalopathy - reportedly normal MS earlier this AM - head CT negative 3. RVR atrial fibrillation - VR > 130s during my exam - hemodynamically tolerated - amiodarone drip -> PO x 1 this AM 3. Morbid obesity/hypertension/hyperlipidemia/diabetes mellitus/paroxysmal atrial fibrillation/history of complete heart block status post pacemaker placement/aortic valve stenosis status post TAVR Complicates care, management, recovery and prognosis. Continue to hold home antihypertensives. Will initiate sliding scale insulin coverage and Accu-Cheks. Continue amiodarone as ordered to address paroxysmal atrial fibrillation. While the patient was being maintained on Eliquis on an outpatient basis, if she is not able to clear her sensorium enough to take in p.o. intake, she will require initiation of a heparin infusion. RECOMMENDATIONS: 1. Continue empiric antibiotics. 2. Continue Levophed to maintain mean arterial pressure at or above 65 mmHg. 3. trial of amiodarone 200 mg BID low threshold to resume IV drip if RVR remains uncontrolled. 4. ALEKSANDAR planned 03/01. 5. follow MS carefully low threshold for brain MRI. 6. clear liquid diet. Critical Care Time: 50 minutes The entirety of this encounter was done via Telemedicine Physical Exam Const alert and no apparent distress General Appearance: cooperative and comfortable HEENT normocephalic Eyes PERRL Neck full ROM Resp normal respiratory effort Cardio Rate: tachycardic Rhythm: abnormal rhythm Subjective Subjective Stable overnight, slept poorly. She seems slow/ groggy but nurse tells me she was sharp mentally earlier.
--- NOTE | 2025-02-27 10:38 | PN_ITS ---
Subjective Subjective Patient seen and examined. She is alert and more communicative today and feels much better. She has no active complaints and had an uneventful night. She is febrile with temp of 100.1F. Review of systems is otherwise negative. Objective Data Objective Data Vital Signs: Vital Signs Temp Pulse Resp BP Pulse Ox O2 Del Method O2 Flow Rate 100.1 F H 117 H 24 H 124/69 H 97 Room Air 2 02/27/25 09:00 02/27/25 08:00 02/27/25 08:00 02/27/25 08:00 02/27/25 08:00 02/27/25 08:00 02/27/25 04:00 Oxygen Flow Rate (L/min) 2 Oxygen Delivery Method Room Air Weight: 249 lb 5.485 oz Body Mass Index (BMI) 48.9 Intake & Output: Intake and Output for Last 24 Hours 02/25/25 02/26/25 02/27/25 23:59 23:59 23:59 Intake Total 4875.98 / 4875.98 490 / 490 Output Total 700 / 1000 700 / 700 Balance 4175.98 / 3875.98 -210 / -210 Lab / Micro Data 02/27/25 08:40 02/27/25 08:40 Labs: Laboratory Results - last 24 hr 02/26/25 10:20: Troponin T Hi Sens 2 Hr 38 H 02/26/25 12:45: Troponin T Hi Sens 4Hr 41 H 02/26/25 17:31: POC Glucose 213 H 02/26/25 21:32: POC Glucose 213 H 02/27/25 08:04: POC Glucose 136 H 02/27/25 08:40: WBC 9.0, RBC 4.24, Hgb 13.2, Hct 39.2, MCV 92.5, MCH 31.1, MCHC 33.7, RDW Std Deviation 46.3 H, RDW Coeff of Yovany 13.5, Plt Count 63 L, MPV 11.8, Immature Gran % (Auto) 1.100 H, Neut % (Auto) 73.8 H, Lymph % (Auto) 18.6 L, Collin % (Auto) 5.5, Eos % (Auto) 0.4, Baso % (Auto) 0.6, Absolute Neuts (auto) 6.7, Absolute Lymphs (auto) 1.68, Nucleated RBC % 0, Sodium 137, Potassium 3.6, Chloride 108, Carbon Dioxide 18.8 L, Anion Gap 11, BUN 19, Creatinine 0.86, Estim Creat Clear Calc 63.73, Est GFR (MDRD) Non-Af 70, BUN/Creatinine Ratio 21.6 H, Glucose 156 H, Calcium 8.4 Micro: Microbiology 02/25/25 21:25 Blood Culture (Wb) - Left Hand Bacteria Detection (PCR) - Final Streptococcus agalactiae (B) 02/25/25 21:25 Blood Culture (Wb) - Left Hand Blood Culture - Preliminary Streptococcus agalactiae (B) 02/25/25 20:30 Blood Culture (Wb) - Venous Blood Culture - Preliminary Streptococcus agalactiae (B) 02/25/25 22:30 Mucosa - Nose Respiratory Panel (PCR) - Final 02/25/25 21:11 Mucosa - Nose SARS-CoV-2, Influenza & RSV (PCR) - Final Radiography Diagnostic Testing: Radiology Impression Echocardiogram 02/26/25 07:35 Interpretation Summary Normal left ventricular size. Mildly increased left ventricular wall thickness. Normal LVEF with estimated ejection fraction of 55 to 60%. No regional wall motion abnormalities. Indeterminate diastolic function due to elevated LA pressure secondary to mitral valve stenosis. Mildly increased right ventricular size, normal wall thickness, preserved function. Not well-visualized bioprosthetic valve. 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 Bileaflet diffuse mitral valve thickening with heavy calcification in the posterior mitral leaflet and mild mitral stenosis by Doppler measurements. Ordering Physician: Donnell Mendez Referring Physician: Marleny Camacho Performed By: Jennifer Mays, RDCS, RVT Chest X-Ray 02/26/25 10:05 IMPRESSION: Lungs are hypoinflated, and examination is further limited by some degree of patient motion. No significant interval pneumonic process seen. No pleural effusion or pneumothorax is noted. The cardiomediastinal silhouette is stable, with a calcified and tortuous aorta noted. Aortic valve stent graft and left thoracic transvenous pacemaker with atrial and ventricular leads appear stable. No interval osseous change is noted. Reading Location: [facility]--1 Chest X-Ray 02/26/25 11:20 IMPRESSION: The tip of the PICC line catheter is at the junction of the superior vena cava and right atrium. Reading Location: [id number] Physical Exam Const alert and oriented x3 Constitutional Narrative: flat affect HEENT normocephalic, head/scalp atraumatic, hearing grossly normal bilaterally and moist oral mucous membranes Eyes PERRL, EOMs intact bilaterally and conjunctivae normal Neck no lymphadenopathy, supple and no JVD Lymph Lymphatic: no lymphedema noted Resp Resp Narrative: Mildly diminished breath sounds bibasilarly. No wheezes or crackles. Now on room air. Cardio regular rhythm, S1 normal heart sound, S2 normal heart sound and no murmurs Cardio Narrative: Tachycardic GI normal to inspection, nondistended, normoactive bowel sounds, soft to palpation, non-tender and non-distended Extremity normal to inspection, full ROM, normal capillary refill and no clubbing, cyanosis or edema General Extremity: no tenderness to palpation of joints or extremities Skin General Skin Exam: no breakdown Neuro CN's II-XII intact bilaterally Neuro Narrative: alert, communicative today. Motor Exam: general weakness Psych thought process normal and cooperative Appearance: appropriate Assessment & Plan Assessment/Plan (1) Septic shock: (2) Metabolic encephalopathy: (3) Lactic acidosis: PLAN: Plan #Septic shock * Still remains febrile with temperature over one 112.9 Fahrenheit. Also on low-dose Levophed. On IV vancomycin and Zosyn. * Blood and urine cultures ordered. Currently NPO. Critical care on board. * Continue hydrating with IV fluids.]weaned off levophed * blood cultures growing Strep agalactiae in 1/2 samples. Urine cultures pending. #Acute encephalopathy likely due to septic shock: Management as above. Urine drug screen is negative. #Paroxysmal A-fib: Eliquis on hold. Currently on therapeutic Lovenox. Rate controlled #Benign essential hypertension: On losartan and metoprolol which are both on hold due to septic shock #Hyperlipidemia: On statin #History of heart block: s/p pacemaker #DVT prophylaxis: on lovenox therapeutic dose. CODE STATUS: * full code Charges/Coding Visit Charges Inpatient E&M: 12339 Subs Hosp L2
[2025-02-27] MEDS: 0.9% Saline Lock 10 ML Syringe IV (11:39)
[2025-02-27] MEDS: Vancomycin Trough/Random Due 1 LAB MC (11:39)
[2025-02-27 12:12] LABS: Vancomycin, Trough Level 14.6 ug/mL (5.0-15.0)
--- NOTE | 2025-02-27 12:21 | PCM.RX.CS ---
Consult Antibiotic Management Pharmacy has been consulted to manage selected antibiotic: Vancomycin Type of Intervention Type of Consult: Follow-up Suspected Infection Suspected Infection: Bacteremia Labs Labs: Sodium 137 mmol/L (133-145) 02/27/25 08:40 Potassium 3.6 mmol/L (3.3-5.1) 02/27/25 08:40 Chloride 108 mmol/L (98-108) 02/27/25 08:40 Carbon Dioxide 18.8 mmol/L (21.0-32.0) L 02/27/25 08:40 Anion Gap 11 (5-15) 02/27/25 08:40 BUN 19 mg/dL (4-19) 02/27/25 08:40 Creatinine 0.86 mg/dL (0.70-1.20) 02/27/25 08:40 Est GFR (MDRD) Non-Af 70 (>60) 02/27/25 08:40 BUN/Creatinine Ratio 21.6 RATIO (10-20) H 02/27/25 08:40 Glucose 156 mg/dL (70-99) H 02/27/25 08:40 Vancomycin Trough 14.6 ug/mL (5.0-15.0) 02/27/25 11:30 Microbiology Microbiology: Microbiology 02/26/25 18:05 Blood Culture (Wb) - Pic Blood Culture - Preliminary 02/25/25 21:10 Urine, Clean Catch Urine Culture - Preliminary Mixed Gram Positive Organisms Beta streptococcus Gram negative ashley 02/25/25 21:25 Blood Culture (Wb) - Left Hand Bacteria Detection (PCR) - Final Streptococcus agalactiae (B) 02/25/25 21:25 Blood Culture (Wb) - Left Hand Blood Culture - Preliminary Streptococcus agalactiae (B) 02/25/25 20:30 Blood Culture (Wb) - Venous Blood Culture - Preliminary Streptococcus agalactiae (B) 02/25/25 22:30 Mucosa - Nose Respiratory Panel (PCR) - Final 02/25/25 21:11 Mucosa - Nose SARS-CoV-2, Influenza & RSV (PCR) - Final Pharmacy Plan for Drug Dosing Pharmacy Plan for Drug Dosing: VANCOMYCIN LEVEL RECEIVED Current Vancomycin Dose: 1000MG Q12 Number of Doses Received: 3 Vancomycin Level: 14.6 MG/DL Hours Since Last Dose: 10.5 Renal Function: SCr 0.86 mg/dL Renal Function Trend: 63 mL/min Lab/Micro: GBS in blood cx Vancomycin Plan/Comments: 10.5 hour trough is subtherapeutic at 14.6mg/dL (goal 15-20). Will increase dose to 1250mg Q12 and get a level prior to 4th dose of new regimen. Pending Level: 03/01/25 @ 0000 Pharmacy Service will continue to monitor and adjust dosing as required.
[2025-02-27] MEDS: Vancomycin HCl 1,250 MG in 0.9% Normal Saline (250mL Bag) 250 ML 167 MG IV (12:47)
[2025-02-27] MEDS: Pantoprazole Sodium 40 MG in 0.9% Normal Saline (100mL MB+) 100 ML 330 MG IV (21:59)
[2025-02-28] VITALS (18 sets, daily range): BP systolic 110–188; BP diastolic 57–91; PULSE 80–109; RESP 19–34; TEMP 36.6–38; O2SAT 93–98; BMI 49.3
[2025-02-28] MEDS: 0.9% Normal Saline (250mL Bag) 250 ML 15 ML IV (00:44)
[2025-02-28] MEDS: Vancomycin HCl 1,250 MG in 0.9% Normal Saline (250mL Bag) 250 ML 167 MG IV (00:45)
[2025-02-28] MEDS: Piperacil/Tazobactam 3.375 GM in 0.9% Normal Saline (50mL MB+) 50 ML IV (05:10)
[2025-02-28 05:37] LABS: Hematocrit 35.8 % (37-47); Hemoglobin 11.9 g/dL (12.0-15.0); Immature Granulocytes Count 0.040 X10^3/uL (0.0-0.0); Mean Corp Hgb Conc 33.2 g/dL (32-36); Mean Corpuscular Volume 91.8 fL (81-99); Mean Platelet Vol. 12.9 fl (6.2-12.0); NRBC Flagged by Analyzer 0 % (0-5); POSITIVE COUNT YES; POSITIVE MORPHOLOGY YES; Platelet Count 59 K/mm3 (150-450); RBC Distribution Width CV 13.5 % (11.6-14.6); RBC Distribution Width SD 45.5 fl (35.1-43.9); Red Blood Count 3.90 M/mm3 (4.2-5.4); White Blood Count 7.4 K/mm3 (4.4-11.0)
[2025-02-28 05:42] LABS: Differential Indicated SCAN CRITERIA MET
[2025-02-28 06:20] LABS: Differential Comment SCANNED
[2025-02-28 06:27] LABS: Anion Gap 10 (5-15); BUN 16 mg/dL (4-19); BUN/Creat Ratio 20.6 RATIO (10-20); Calcium,Total 8.0 mg/dL (7.6-11.0); Carbon Dioxide 18.8 mmol/L (21.0-32.0); Chloride 108 mmol/L (98-108); Estimated Creatinine Clearance 68.81 ml/min (50-250); Glucose 176 mg/dL (70-99); Potassium 3.5 mmol/L (3.3-5.1)
[2025-02-28] MEDS: Calcium Carb/Vitamin D 1 TABLET Tablet PO ×2 (08:20→22:59)
--- NOTE | 2025-02-28 09:15 | PN_ITS ---
Subjective Subjective Patient seen and examined. She had no complaints and looked much better today. Review of systems is otherwise negative. Objective Data Objective Data Vital Signs: Vital Signs Temp Pulse Resp BP Pulse Ox O2 Del Method O2 Flow Rate 100.2 F H 98 27 H 151/78 H 98 Nasal Cannula 2 02/28/25 05:00 02/28/25 05:00 02/28/25 05:00 02/28/25 05:00 02/28/25 07:08 02/28/25 07:08 02/28/25 07:08 Oxygen Flow Rate (L/min) 2 Oxygen Delivery Method Nasal Cannula Weight: 251 lb 1.704 oz Body Mass Index (BMI) 49.3 Intake & Output: Intake and Output for Last 24 Hours 02/26/25 02/27/25 02/28/25 23:59 23:59 23:59 Intake Total 4875.98 / 4875.98 2121.98 / 2121.98 325.25 / 325.25 Output Total 700 / 1000 1430 / 1430 475 / 475 Balance 4175.98 / 3875.98 691.98 / 691.98 -149.75 / -149.75 Lab / Micro Data 02/28/25 05:17 02/28/25 05:17 Labs: Laboratory Results - last 24 hr 02/27/25 11:28: POC Glucose 225 H 02/27/25 11:30: Vancomycin Trough 14.6 02/27/25 15:50: POC Glucose 207 H 02/27/25 22:00: POC Glucose 172 H 02/28/25 05:17: WBC 7.4, RBC 3.90 L, Hgb 11.9 L, Hct 35.8 L, MCV 91.8, MCH 30.5, MCHC 33.2, RDW Std Deviation 45.5 H, RDW Coeff of Yovany 13.5, Plt Count 59 L, MPV 12.9 H, Immature Gran % (Auto) 0.500, Neut % (Auto) 66.9, Lymph % (Auto) 20.6, M iker % (Auto) 10.1 H, Eos % (Auto) 1.5, Baso % (Auto) 0.4, Absolute Neuts (auto) 5.0, Absolute Lymphs (auto) 1.53, Nucleated RBC % 0, Differential Comment SCANNED, Platelet Estimate MOD DEC, Sodium 137, Potassium 3.5, Chloride 108, C arbon Dioxide 18.8 L, Anion Gap 10, BUN 16, Creatinine 0.78, Estim Creat Clear Calc 68.81, Est GFR (MDRD) Non-Af 78, BUN/Creatinine Ratio 20.6 H, Glucose 176 H , Calcium 8.0 02/28/25 08:12: POC Glucose 170 H Micro: Microbiology 02/25/25 20:30 Blood Culture (Wb) - Venous Blood Culture - Final Streptococcus agalactiae (B) 02/25/25 21:25 Blood Culture (Wb) - Left Hand Bacteria Detection (PCR) - Final Streptococcus agalactiae (B) 02/25/25 21:25 Blood Culture (Wb) - Left Hand Blood Culture - Final Streptococcus agalactiae (B) 02/26/25 18:05 Blood Culture (Wb) - Pic Blood Culture - Preliminary Streptococcus agalactiae (B) 02/25/25 21:10 Urine, Clean Catch Urine Culture - Preliminary Mixed Gram Positive Organisms Beta streptococcus Gram negative ashley 02/25/25 22:30 Mucosa - Nose Respiratory Panel (PCR) - Final 02/25/25 21:11 Mucosa - Nose SARS-CoV-2, Influenza & RSV (PCR) - Final Physical Exam Const alert, oriented x3 and no apparent distress General Appearance: cooperative HEENT normocephalic, head/scalp atraumatic, hearing grossly normal bilaterally and moist oral mucous membranes Eyes PERRL, EOMs intact bilaterally and conjunctivae normal Neck no lymphadenopathy, supple and no JVD Lymph Lymphatic: no lymphedema noted Resp Resp Narrative: Mildly diminished breath sounds bibasilarly. No wheezes or crackles. on 2L of oxygen by nasal canula Cardio regular rate, regular rhythm, S1 normal heart sound, S2 normal heart sound and no murmurs GI normal to inspection, nondistended, normoactive bowel sounds, soft to palpation, non-tender and non-distended Extremity normal to inspection, full ROM, normal capillary refill and no clubbing, cyanosis or edema General Extremity: no tenderness to palpation of joints or extremities Skin General Skin Exam: no breakdown Neuro CN's II-XII intact bilaterally and no focal motor deficits Neuro Narrative: alert, communicative today. Motor Exam: general weakness Psych thought process normal and cooperative Psych Narrative: Patient is lethargic and confused but arousable. Appearance: appropriate Assessment & Plan Assessment/Plan (1) Septic shock: (2) Metabolic encephalopathy: (3) Lactic acidosis: PLAN: Plan #Septic shock * Still remains febrile with temperature over one 112.9 Fahrenheit. Also on low-dose Levophed. On IV vancomycin and Zosyn. * Blood and urine cultures ordered. Critical care on board. * Continue hydrating with IV fluids.]weaned off levophed * blood cultures growing Strep agalactiae in 2/2 samples. Urine cultures pending. * will repeat blood cultures. DC vancomycin and zosyn and narrow down to IV ceftriaxone based on sensitivities. Consult ID. #Acute encephalopathy likely due to septic shock: Management as above. Urine drug screen is negative. #Paroxysmal A-fib: Eliquis on hold. Currently on therapeutic Lovenox. Rate controlled #Benign essential hypertension: On losartan and metoprolol which are both on hold due to septic shock. Will resume as shock has resolved. #Hyperlipidemia: On statin #History of heart block: s/p pacemaker #DVT prophylaxis: on lovenox therapeutic dose. CODE STATUS: * full code * Disposition: transfer to PCU. Charges/Coding Visit Charges Inpatient E&M: 33777 Subs Hosp L2
[2025-02-28] MEDS: Metoprolol(XL)Succ 25 MG Tablet PO (11:27)
--- NOTE | 2025-02-28 13:01 | RAD_ITS ---
PROCEDURE: CHEST 1 VIEW (PORTABLE) 02/28/2025 REASON FOR EXAM: TACHYPNEA TECHNIQUE: Frontal view of the chest. COMPARISON: Chest radiograph 02/26/2025. FINDINGS: Hardware: Stable left chest wall pacemaker and prior aortic valve replacement. Stable right PICC with tip overlying the right atrium. Heart: The heart size is normal. Lungs: Bibasilar atelectasis. No focal consolidation, pleural effusion or pneumothorax. Bones: Degenerative changes are identified within the thoracic spine. RAD/Chest 1 View (Portable) IMPRESSION: No Acute Findings. Reading Location: [id number]
--- NOTE | 2025-02-28 13:02 | PCM.PN.TICU ---
Objective Data Objective Data Vital Signs: Vital Signs Last response Temperature 37.8 C H 02/28/25 12:00 Temperature Source Core 02/28/25 11:00 Pulse Rate 88 02/28/25 12:00 Pulse Strength Normal (2+) 02/28/25 10:00 Respiratory Rate 34 H 02/28/25 12:00 Respiratory Effort Normal 02/28/25 08:00 Respiratory Depth Shallow 02/28/25 08:00 Respiratory Pattern Normal 02/28/25 08:00 Blood Pressure 139/72 H 02/28/25 12:00 Blood Pressure Mean 94 02/28/25 12:00 Blood Pressure Source Monitor 02/28/25 12:00 Blood Pressure Position Semi-Fowlers 02/28/25 11:00 Blood Pressure Location Left Forearm 02/28/25 11:00 Pulse Ox 98 02/28/25 12:00 Oxygen Delivery Method Nasal Cannula 02/28/25 12:00 Oxygen Flow Rate (L/min) 2 02/28/25 12:00 I&O: I&O Last 24 Hours 02/27/25 02/28/25 02/28/25 23:59 11:59 23:59 Intake Total 1425 / 2121.98 855.25 / 855.25 Output Total 730 / 1430 775 / 775 Balance 695 / 691.98 80.25 / 80.25 I&O: Total Stay 02/25/25 20:40 thru 02/28/25 11:30 Intake Total 7853.21 Output Total 2905 Balance 4948.21 Current Meds Ordered / Administered: Current meds ordered / Administered Generic Name Dose Route Start Last Admin Trade Name Gypsy PRN Reason Stop Dose Admin Acetaminophen 650 mg 02/26/25 10:05 02/27/25 10:25 Acetaminophen 325 Mg Tablet PO 650 mg Q4H PRN PRN Administration Pain 1-10 or Fever Amiodarone HCl 200 mg 02/27/25 10:00 02/28/25 08:21 Amiodarone 200 Mg Tablet PO 200 mg BID JESSE Administration Calcium/Vitamin D 1 tablet 02/26/25 22:00 02/28/25 08:20 Calcium Carb/Vitamin D 1 Tablet Tablet PO 1 tablet BID JESSE Administration Pantoprazole Sodium 40 mg/ 100 mls @ 330 mls/hr 02/26/25 00:46 02/27/25 22:18 Sodium Chloride IV Infused 2200 JESSE Infusion Sodium Chloride 250 mls @ 15 mls/hr 02/26/25 01:10 02/28/25 02:24 IV 15 mls/hr .[id number] PRN Infusion Saline Flush Sodium Chloride 250 mls @ 15 mls/hr 02/26/25 01:10 IV .[id number] PRN Additional IVPB Infusion Norepinephrine Bitartrate 8 mg 250 mls @ 9.375 mls/hr 02/26/25 05:45 02/28/25 12:00 / Sodium Chloride CONT INF Not Given .[id number] JESSE Protocol 5 MCG/MIN Ceftriaxone Sodium 1 gm in 50 mls @ 100 mls/hr 02/28/25 10:00 Rocephin IV Q24 JESSE Insulin Human Lispro 0 unit 02/26/25 16:42 02/28/25 11:28 Insulin Lispro 100 Unit/Ml Insuln.Pen SC 1 u ACHS [facility] Administration Protocol Metoprolol Succinate 25 mg 02/28/25 10:00 02/28/25 11:27 Metoprolol(Xl)Succ 25 Mg Tablet PO 25 mg DAILY [facility] Administration Protocol Ondansetron HCl 4 mg 02/26/25 01:09 Ondansetron 4 Mg/2 Ml Vial IV Q6H PRN PRN NAUSEA/VOMITING Sodium Chloride 10 - 40 ml 02/26/25 01:10 02/27/25 11:39 0.9% Saline Lock 10 Ml Syringe IV 10 ml UD PRN Administration SALINE FLUSH Lab / Micro Data 02/28/25 05:17 02/28/25 05:17 Labs: Laboratory Results - last 24 hr 02/27/25 15:50: POC Glucose 207 H 02/27/25 22:00: POC Glucose 172 H 02/28/25 05:17: WBC 7.4, RBC 3.90 L, Hgb 11.9 L, Hct 35.8 L, MCV 91.8, MCH 30.5, MCHC 33.2, RDW Std Deviation 45.5 H, RDW Coeff of Yovany 13.5, Plt Count 59 L, MPV 12.9 H, Immature Gran % (Auto) 0.500, Neut % (Auto) 66.9, Lymph % (Auto) 20.6, [place] % (Auto) 10.1 H, Eos % (Auto) 1.5, Baso % (Auto) 0.4, Absolute Neuts (auto) 5.0, Absolute Lymphs (auto) 1.53, Nucleated RBC % 0, Differential Comment SCANNED, Platelet Estimate MOD DEC, Sodium 137, Potassium 3.5, Chloride 108, Carbon Dioxide 18.8 L, Anion Gap 10, BUN 16, Creatinine 0.78, Estim Creat Clear Calc 68.81, Est GFR (MDRD) Non-Af 78, BUN/Creatinine Ratio 20.6 H, Glucose 176 H, Calcium 8.0 02/28/25 08:12: POC Glucose 170 H 02/28/25 11:26: POC Glucose 165 H Micro: Microbiology 02/25/25 21:10 Urine, Clean Catch Urine Culture - Final Mixed Gram Positive Organisms Streptococcus agalactiae (B) Gram negative ashley 02/25/25 20:30 Blood Culture (Wb) - Venous Blood Culture - Final Streptococcus agalactiae (B) 02/25/25 21:25 Blood Culture (Wb) - Left Hand Bacteria Detection (PCR) - Final Streptococcus agalactiae (B) 02/25/25 21:25 Blood Culture (Wb) - Left Hand Blood Culture - Final Streptococcus agalactiae (B) 02/26/25 18:05 Blood Culture (Wb) - Pic Blood Culture - Preliminary Streptococcus agalactiae (B) Assessment and Plan . Assessment and plan: IMPRESSIONS: 1. Septic shock - Group B Strep + bacteremia in setting of bioprosthetic AV, concern for endocarditis - low grade fevers continue - ALEKSANDAR in AM - ID consult following 2. Tachypnea concern for pulmonary pathology - not in resp distress - suspect edema 3. Encephalopathy - reportedly normal MS earlier this AM - head CT negative - seems slowed but less so than previously 4. RVR atrial fibrillation, improved - converted back to NSR on oral amiodarone overnight - hemodynamically tolerated - amiodarone drip -> PO x 1 this AM 5. Morbid obesity/hypertension/hyperlipidemia/diabetes mellitus/paroxysmal atrial fibrillation/history of complete heart block status post pacemaker placement/aortic valve stenosis status post TAVR Complicates care, management, recovery and prognosis. Continue to hold home antihypertensives. Will initiate sliding scale insulin coverage and Accu-Cheks. Continue amiodarone as ordered to address paroxysmal atrial fibrillation. While the patient was being maintained on Eliquis on an outpatient basis, if she is not able to clear her sensorium enough to take in p.o. intake, she will require initiation of a heparin infusion. RECOMMENDATIONS: 1. Continue antibiotics per ID. 2. pressors PRN MAP >65 mmHg. 3. continue amiodarone 200 mg BID 4. ALEKSANDAR planned 03/01. 5. check CXR to evaluate for edema 6. clear liquid diet. Critical Care Time: 50 minutes The entirety of this encounter was done via Telemedicine Frank Hanson MD Physical Exam Const alert and no apparent distress HEENT normocephalic Eyes PERRL Neck full ROM Resp normal respiratory effort Effort and Inspection: tachypneic Cardio regular rate Subjective Subjective Looks good, denies dyspnea yet remains persistently tachypneic with RR 38
[2025-02-28 15:22] LABS: Magnesium 1.8 mg/dL (1.5-2.2)
[2025-02-28] MEDS: Pantoprazole Sodium 40 MG in 0.9% Normal Saline (100mL MB+) 100 ML 330 MG IV (22:59)
[2025-03-01] VITALS (9 sets, daily range): BP systolic 116–152; BP diastolic 45–81; PULSE 86–112; RESP 16–24; TEMP 36.4–36.9; O2SAT 90–96; BMI 49.4
[2025-03-01 05:53] LABS: Hematocrit 35.9 % (37-47); Hemoglobin 12.2 g/dL (12.0-15.0); Immature Granulocytes Count 0.060 X10^3/uL (0.0-0.0); Mean Corp Hgb Conc 34.0 g/dL (32-36); Mean Corpuscular Volume 91.3 fL (81-99); Mean Platelet Vol. 12.2 fl (6.2-12.0); NRBC Flagged by Analyzer 0 % (0-5); POSITIVE COUNT YES; Platelet Count 76 K/mm3 (150-450); RBC Distribution Width CV 13.4 % (11.6-14.6); RBC Distribution Width SD 45.7 fl (35.1-43.9); Red Blood Count 3.93 M/mm3 (4.2-5.4); White Blood Count 8.7 K/mm3 (4.4-11.0)
[2025-03-01 06:52] LABS: Anion Gap 14 (5-15); BUN 14 mg/dL (4-19); BUN/Creat Ratio 20.6 RATIO (10-20); Calcium,Total 8.5 mg/dL (7.6-11.0); Carbon Dioxide 15.3 mmol/L (21.0-32.0); Chloride 108 mmol/L (98-108); Estimated Creatinine Clearance 68.93 ml/min (50-250); Glucose 212 mg/dL (70-99); Potassium 3.6 mmol/L (3.3-5.1)
--- NOTE | 2025-03-01 08:00 | ECHOTEE_ITS ---
Reason For Study Reason For Study: Endocarditis Medication ALEKSANDAR probe 6VT-D (SN [id number]) passed without difficulty. No complications were noted. Cetacaine Topical [place] given X3 orally. Versed 2 mg given slow IVP. Fentanyl 50 mcg given slow IVP. Performed a rapid injection of agitated mix of 9 cc saline and 1cc air to assess for atrial septal defect. Left Ventricle Normal LV size. Left ventricular systolic function is normal. The left ventricular ejection fraction is 60 %. No regional wall motion abnormalities noted. Right Ventricle Normal RV size. The right ventricle is normal in size, function, and thickness. Atria Bubble contrast study is negative for PFO/ASD. The left atrium is mildly enlarged. No thrombus is detected in the left atrial appendage. Normal right atrium. ICD or pacer leads identified within the right atrium. Mitral Valve Mild focal mitral valve calcification, bileaflet. Mild restriction of the mitral valve. Mild mitral valve stenosis. Mild (1+) mitral valve insufficiency. Tricuspid Valve Normal tricuspid valve. Aortic Valve Bioprosthetic aortic valve. Bioprosthetic aortic valve functioning normally. Pulmonic Valve Normal pulmonic valve. Vessels Normal aortic root. Pericardium No pericardial effusion. ECHO/Echo Transesophageal (ALEKSANDAR) Interpretation Summary Normal LV size. Left ventricular systolic function is normal. The left ventricular ejection fraction is 60 %. Bubble contrast study is negative for PFO/ASD. Mild focal mitral valve calcification, bileaflet. Bioprosthetic aortic valve functioning normally. No evidence of vegetation noted to suggest endocarditis. Ordering Physician: Jesus Alberto Lopez Referring Physician: Marleny Camacho M.D. Performed By: Juliane Silva RDCS
--- NOTE | 2025-03-01 08:25 | PN.CC_ITS ---
Assessment & Plan Assessment/Plan (1) Septic shock: PLAN: Plan RECOMMENDATIONS: 1. Continue antimicrobials per ID recommendations. 2. Tentative plans for transesophageal echocardiogram. 3. Encourage incentive spirometer use and mobilize patient as tolerated. 4. Will sign off from a critical care perspective. Please call with any additional questions. IMPRESSIONS: 1. Septic shock The patient presented with sepsis due to GBS bacteremia with acute sepsis related organ dysfunction as evidenced by altered mental status and lactic acidemia. The patient did receive IV fluid resuscitation, but was ultimately placed on vasopressor support due to hemodynamic instability. Initial CT chest/abdomen/pelvis demonstrated no significant pathology. With supportive care, including antimicrobial therapy, the patient has been weaned from vasopressor support and remains hemodynamically stable. Given her history of TAVR with bioprosthetic aortic valve along with pacemaker, surface echocardiogram was obtained but demonstrated no evidence of valvular vegetations. Plan to proceed with transesophageal echocardiogram. Antimicrobial management will be deferred to infectious diseases. 2. Encephalopathy Resolved. Most likely related to presenting sepsis. CT head was unremarkable. TSH is within normal limits. Continue supportive measures as noted above. 3. Morbid obesity/hypertension/hyperlipidemia/diabetes mellitus/paroxysmal atrial fibrillation/history of complete heart block status post pacemaker placement/aortic valve stenosis status post TAVR Complicates care, management, recovery and prognosis. Continue to hold home antihypertensives. Will initiate sliding scale insulin coverage and Accu-Cheks. Continue amiodarone as ordered to address paroxysmal atrial fibrillation. PT/OT to work with the patient. This note was generated with [employer] dictation software. It may contain incorrect words, spelling, and punctuation that were not noted in checking the note before signing. Subjective Subjective The patient was seen and examined at the bedside this morning. Events from the last 24 hours have been reviewed. The patient is currently afebrile, hemodynamically stable and maintaining appropriate oxygen saturations on 2 L/min via nasal cannula. The patient is documented to be overall net +5.2 L for the hospitalization. White blood cell count is normal. Platelet count is decreased at 76,000. Creatinine is within normal limits. Objective Data Objective Data The patient's most recent lab work, culture data and imaging studies have all been personally reviewed. Blood cultures were positive for group B streptococcus. Vital Signs: Vital Signs Temp Pulse Resp BP Pulse Ox O2 Del Method O2 Flow Rate 97.8 F 112 H 24 H 152/81 H 96 Nasal Cannula 2 03/01/25 04:00 03/01/25 04:00 03/01/25 04:00 03/01/25 04:00 03/01/25 08:16 03/01/25 08:16 03/01/25 08:16 Oxygen Flow Rate (L/min) 2 Oxygen Delivery Method Nasal Cannula Weight: 251 lb 12.286 oz Body Mass Index (BMI) 49.4 Intake & Output: Intake and Output for Last 24 Hours 02/27/25 02/28/25 03/01/25 23:59 23:59 23:59 Intake Total 2121.98 / 2121.98 1875.00 / 1875.00 Output Total 1430 / 1430 925 / 1275 600 / 600 Balance 691.98 / 691.98 950.00 / 600.00 -600 / -600 Lab / Micro Data Attestation: I reviewed the patient's lab results. 03/01/25 05:37 03/01/25 05:37 Labs: Laboratory Results - last 24 hr 02/28/25 05:17: Phosphorus 1.7 L, Magnesium 1.8 02/28/25 08:12: POC Glucose 170 H 02/28/25 11:26: POC Glucose 165 H 02/28/25 16:08: POC Glucose 168 H 02/28/25 22:56: POC Glucose 236 H 03/01/25 05:37: WBC 8.7, RBC 3.93 L, Hgb 12.2, Hct 35.9 L, MCV 91.3, MCH 31.0, MCHC 34.0, RDW Std Deviation 45.7 H, RDW Coeff of Yovany 13.4, Plt Count 76 L, MPV 12.2 H, Immature Gran % (Auto) 0.700, Neut % (Auto) 70.6 H, Lymph % (Auto) 16.8 L, [place] % (Auto) 10.6 H, Eos % (Auto) 0.6, Baso % (Auto) 0.7, Absolute Neuts (auto) 6.2, Absolute Lymphs (auto) 1.46, Nucleated RBC % 0, Sodium 137, Potassium 3.6, Chloride 108, Carbon Dioxide 15.3 L, Anion Gap 14, BUN 14, C reatinine 0.69 L, Estim Creat Clear Calc 68.93, Est GFR (MDRD) Non-Af 90, B UN/Creatinine Ratio 20.6 H, Glucose 212 H, Calcium 8.5 03/01/25 06:55: POC Glucose 225 H Micro: Microbiology 02/26/25 18:05 Blood Culture (Wb) - Pic Blood Culture - Final Streptococcus agalactiae (B) 02/25/25 21:10 Urine, Clean Catch Urine Culture - Final Mixed Gram Positive Organisms Streptococcus agalactiae (B) Gram negative ashley 02/25/25 20:30 Blood Culture (Wb) - Venous Blood Culture - Final Streptococcus agalactiae (B) 02/25/25 21:25 Blood Culture (Wb) - Left Hand Bacteria Detection (PCR) - Final Streptococcus agalactiae (B) 02/25/25 21:25 Blood Culture (Wb) - Left Hand Blood Culture - Final Streptococcus agalactiae (B) 02/25/25 22:30 Mucosa - Nose Respiratory Panel (PCR) - Final 02/25/25 21:11 Mucosa - Nose SARS-CoV-2, Influenza & RSV (PCR) - Final Radiography Diagnostic Testing: Radiology Impression Chest X-Ray 02/28/25 13:01 IMPRESSION: No Acute Findings. Reading Location: [facility] Physical Exam Const alert and no apparent distress General Appearance: cooperative HEENT normocephalic and head/scalp atraumatic HEENT Narrative: Dry mucous membranes. Eyes PERRL, EOMs intact bilaterally and conjunctivae normal Neck supple General: trachea midline Chest inspection of chest normal Resp normal respiratory effort Auscultation: wheezes; Negative for rales or rhonchi Cardio regular rate and regular rhythm GI normal to inspection, nondistended, normoactive bowel sounds Extremity no clubbing, cyanosis or edema Skin no rashes or lesions noted Neuro CN's II-XII intact bilaterally, moves all extremities and no focal motor deficits Psych cooperative and affect normal Charges/Coding Visit Charges Inpatient E&M: 78483 Subs Hosp L2
[2025-03-01] MEDS: Metoprolol(XL)Succ 25 MG Tablet PO (10:06)
--- NOTE | 2025-03-01 11:27 | PCM.PN.ID ---
Physical Exam Narrative Feeling much better, no fever, out of icu, had ALEKSANDAR this AM. No cough, no abd pain, no n/v/d. Const alert and no apparent distress General Appearance: cooperative Resp normal air movement and clear to auscultation bilaterally Cardio regular rate and regular rhythm GI soft to palpation, non-tender and non-distended Extremity General Extremity: edema Skin no rashes or lesions noted ID ID: Route of nutrition/ use of supplements: [] Nutritional Intake: [] IV Site: [] Juares Catheter: [] Assessment & Plan Assessment/Plan (1) Septic shock: (2) Streptococcal bacteremia: PLAN: Feeling better. Unclear source of GBS in blood. CT chest/abd/pelvis showed no sign infection. No recent procedures and no focal symptoms. UA neg. TTE showed no vegetation. With h/o TAVR and pacer, ordered ALEKSANDAR for 03/01 (negative per verbal report from primary team). On ceftriaxone 2gm daily iv. Ok for home with one week po keflex. Will follow prn, d/w Dr. Borjas
[2025-03-01] MEDS: Calcium Carb/Vitamin D 1 TABLET Tablet PO ×2 (11:38→21:35)
--- NOTE | 2025-03-01 14:04 | CASEMGMT ---
Discharge Planning A list of?SNF providers including quality and resource use data and consistent with the patient's preferred geographic region, medical needs, and insurance network was created in [facility].? This list was provided to the RN ZAIN. Susie Collins, Discharge Planning Asst.
--- NOTE | 2025-03-01 14:11 | CASEMGMT ---
STORM P[facility]TMAN updated by therapy that patient would benefit from SNF at discharge. STORM CM in to discuss with patient and , patient sleeping. RN CM dicussed SNF LOC and is agreeable to SNF at discharge. STORM CM provided SNF list to review and provide preferences, voiced understanding. had no further questions, CM to follow up with in the morning. CM will continue to follow this patient and plan for a safe discharge.
--- NOTE | 2025-03-01 19:27 | PN.HOSP_ITS ---
Reason for Visit Chief Complaint: Fever and Confusion. Subjective Subjective Patient was seen and examined today, she is currently on 2 L of oxygen, I talked with infectious diseases today and transition the patient over to oral Keflex and stopped her IV antibiotics. Patient will be seen by PT and OT and reevaluated tomorrow for possible discharge. Patient's ALEKSANDAR today was unremarkable. Objective Data Objective Data Vital Signs: Vital Signs Temp Pulse Resp BP Pulse Ox O2 Del Method O2 Flow Rate 98.5 F 93 20 H 118/45 L 95 Nasal Cannula 2 03/01/25 15:23 03/01/25 15:23 03/01/25 15:23 03/01/25 15:23 03/01/25 15:23 03/01/25 15:23 03/01/25 15:23 Oxygen Flow Rate (L/min) 2 Oxygen Delivery Method Nasal Cannula Weight: 114.2 kg Body Mass Index (BMI) 49.4 Intake & Output: Intake and Output for Last 24 Hours 02/27/25 02/28/25 03/01/25 23:59 23:59 23:59 Intake Total 2121.98 / 2121.98 1875.00 / 1875.00 120 / 120 Output Total 1430 / 1430 925 / 1275 1000 / 1000 Balance 691.98 / 691.98 950.00 / 600.00 -880 / -880 Lab / Micro Data 03/01/25 05:37 03/01/25 05:37 Labs: Laboratory Results - last 24 hr 02/28/25 22:56: POC Glucose 236 H 03/01/25 05:37: WBC 8.7, RBC 3.93 L, Hgb 12.2, Hct 35.9 L, MCV 91.3, MCH 31.0, MCHC 34.0, RDW Std Deviation 45.7 H, RDW Coeff of Yovany 13.4, Plt Count 76 L, MPV 12.2 H, Immature Gran % (Auto) 0.700, Neut % (Auto) 70.6 H, Lymph % (Auto) 16.8 L, [place] % (Auto) 10.6 H, Eos % (Auto) 0.6, Baso % (Auto) 0.7, Absolute Neuts (auto) 6.2, Absolute Lymphs (auto) 1.46, Nucleated RBC % 0, Sodium 137, Potassium 3.6, Chloride 108, Carbon Dioxide 15.3 L, Anion Gap 14, BUN 14, C reatinine 0.69 L, Estim Creat Clear Calc 68.93, Est GFR (MDRD) Non-Af 90, B UN/Creatinine Ratio 20.6 H, Glucose 212 H, Calcium 8.5 03/01/25 06:55: POC Glucose 225 H 03/01/25 11:18: POC Glucose 180 H Micro: Microbiology 02/26/25 18:05 Blood Culture (Wb) - Pic Blood Culture - Final Streptococcus agalactiae (B) 02/25/25 21:10 Urine, Clean Catch Urine Culture - Final Mixed Gram Positive Organisms Streptococcus agalactiae (B) Gram negative ashley 02/25/25 20:30 Blood Culture (Wb) - Venous Blood Culture - Final Streptococcus agalactiae (B) 02/25/25 21:25 Blood Culture (Wb) - Left Hand Bacteria Detection (PCR) - Final Streptococcus agalactiae (B) 02/25/25 21:25 Blood Culture (Wb) - Left Hand Blood Culture - Final Streptococcus agalactiae (B) 02/25/25 22:30 Mucosa - Nose Respiratory Panel (PCR) - Final 02/25/25 21:11 Mucosa - Nose SARS-CoV-2, Influenza & RSV (PCR) - Final Radiography Diagnostic Testing: Radiology Impression Transesophageal Echocardiogram 03/01/25 08:00 Interpretation Summary Normal LV size. Left ventricular systolic function is normal. The left ventricular ejection fraction is 60 %. Bubble contrast study is negative for PFO/ASD. Mild focal mitral valve calcification, bileaflet. Bioprosthetic aortic valve functioning normally. No evidence of vegetation noted to suggest endocarditis. Ordering Physician: Jesus Alberto Lopez Referring Physician: Marleny Camacho M.D. Performed By: Juliane Silva RDCS Physical Exam Const alert, oriented x3 and no apparent distress Constitutional Narrative: Patient has class III obesity General Appearance: cooperative, well kempt and well developed Orientation / Consciousness: awake, oriented to person and oriented to place HEENT normocephalic, head/scalp atraumatic and moist oral mucous membranes Eyes PERRL, EOMs intact bilaterally and conjunctivae normal Neck supple, no JVD, thyroid normal and no carotid bruits General: trachea midline Resp normal respiratory effort and clear to auscultation bilaterally Auscultation: Negative for rales, rhonchi or wheezes Cardio regular rate, regular rhythm, S1 normal heart sound, S2 normal heart sound, no murmurs, no rub and no gallops GI normal to inspection, nondistended, normoactive bowel sounds, soft to palpation, non-tender and non-distended Extremity no clubbing, cyanosis or edema Skin no rashes or lesions noted General Skin Exam: no breakdown Neuro CN's II-XII intact bilaterally, no focal motor deficits and no sensory deficits noted Sensorium / Orientation: awake, alert, oriented to person and oriented to place Speech: speech normal Psych affect normal Assessment & Plan Assessment/Plan (1) Septic shock: PLAN: Plan 1. Septic shock secondary to strep agalactiae-again patient was transitioned over to Keflex, her ALEKSANDAR was unremarkable for vegetation. #2 metabolic encephalopathy-cleared at this time, secondary to septic shock #3 class III obesity-complicates care, management, recovery, and prognosis #4 type 2 diabetes-blood sugars will continue to be monitored, sliding scale insulin will be administered as needed #5 generalized debility-patient will be seen by PT and OT #6 paroxysmal atrial fibrillation-patient is currently off Eliquis, she will resume this medication after she is discharged from the hospital. Total clinical time spent by myself addressing the patient's medical issues, reviewing all of her data, and collaborating with the patient's care team: 35 minutes Charges/Coding Visit Charges Inpatient E&M: 69391 Subs Hosp L2
[2025-03-01] MEDS: Pantoprazole Sodium 40 MG in 0.9% Normal Saline (100mL MB+) 100 ML 330 MG IV (21:34)
[2025-03-02 02:00] VITALS: BP 144/88; PULSE 94; RESP 20; TEMP 36.8; O2SAT 94
[2025-03-02 03:45] VITALS: BMI 49.3
[2025-03-02] MEDS: 0.9% Saline Lock 10 ML Syringe IV ×4 (07:09→22:27)
[2025-03-02 07:14] LABS: Hematocrit 38.2 % (37-47); Hemoglobin 12.5 g/dL (12.0-15.0); Immature Granulocytes Count 0.090 X10^3/uL (0.0-0.0); Mean Corp Hgb Conc 32.7 g/dL (32-36); Mean Corpuscular Volume 92.7 fL (81-99); Mean Platelet Vol. 11.7 fl (6.2-12.0); NRBC Flagged by Analyzer 0 % (0-5); POSITIVE COUNT YES; Platelet Count 98 K/mm3 (150-450); RBC Distribution Width CV 13.7 % (11.6-14.6); RBC Distribution Width SD 46.8 fl (35.1-43.9); Red Blood Count 4.12 M/mm3 (4.2-5.4); White Blood Count 7.9 K/mm3 (4.4-11.0)
[2025-03-02 07:15] LABS: Anion Gap 11 (5-15); BUN 14 mg/dL (4-19); BUN/Creat Ratio 21.7 RATIO (10-20); Calcium,Total 8.6 mg/dL (7.6-11.0); Carbon Dioxide 20.3 mmol/L (21.0-32.0); Chloride 107 mmol/L (98-108); Estimated Creatinine Clearance 68.85 ml/min (50-250); Glucose 215 mg/dL (70-99); Potassium 3.7 mmol/L (3.3-5.1)
[2025-03-02 07:19] LABS: Differential Indicated SCAN CRITERIA MET
--- NOTE | 2025-03-02 09:19 | CASEMGMT ---
Addendum entered by Ene Matthew 03/02/25 09:46: [facility] received updated from TCU and they do not have a bed available. STORM PITTMAN updated DC Transcript Clerk to send referral to next preference. CM will continue to follow this patient and plan for a safe discharge. Original Note: [facility]TM[facility] spoke with regarding SNF preferences: 1. [facility] 2. [facility] 3. [facility]. [facility]. had no further questions or concerns. [facility]ORM [facility]TMAN made referral to [facility] in [facility], awaiting acceptance. CM will continue to follow this patient and plan for a safe discharge.
[2025-03-02 10:23] VITALS: BP 127/66; PULSE 95; RESP 18; TEMP 36.5; O2SAT 94
[2025-03-02 10:28] VITALS: BP 127/66; PULSE 95
[2025-03-02] MEDS: Metoprolol(XL)Succ 25 MG Tablet PO (10:28)
[2025-03-02] MEDS: Calcium Carb/Vitamin D 1 TABLET Tablet PO ×2 (10:28→22:26)
[2025-03-02] MEDS: Furosemide 20 MG/2 ML VIAL IV ×2 (11:41→16:57)
--- NOTE | 2025-03-02 11:50 | CASEMGMT ---
Addendum entered by Susie Collins 03/02/25 11:52: [facility] has declined. RN CM updated. Susie Collins DC Planning Asst. Original Note: Discharge Planning SNF referral sent to [facility]. Susie Collins DC Planning Asst.
--- NOTE | 2025-03-02 11:52 | CASEMGMT ---
Addendum entered by Susie Collins 03/02/25 14:03: Both pt and her updated. Susie Collins DC Planning Asst. Addendum entered by Susie Collins 03/02/25 13:59: [facility] has accepted and will submit for precert. STORM PITTMAN updated. Susie Collins DC Planning Asst. Original Note: Discharge Planning SNF referral sent to [facility]. Susie Collins DC Planning Asst.
[2025-03-02 15:20] VITALS: BP 125/64; PULSE 94; RESP 14; TEMP 36.9; O2SAT 95
--- NOTE | 2025-03-02 16:21 | PCM.PN.HOSP ---
Reason for Visit Chief Complaint: Fever and Confusion. Subjective Subjective Patient was seen and examined today, she is on room air but has audible expiratory wheezing. Patient also appears to have generalized edema, I have elected to place her on IV Lasix starting today. Patient did not do well with physical therapy and we are currently awaiting approval for her to go to a care home facility for short-term skilled services. Objective Data Objective Data Vital Signs: Vital Signs Temp Pulse Resp BP Pulse Ox O2 Del Method O2 Flow Rate 98.5 F 94 14 125/64 H 95 Room Air 2 03/02/25 15:20 03/02/25 15:20 03/02/25 15:20 03/02/25 15:20 03/02/25 15:20 03/02/25 15:20 03/01/25 15:23 Oxygen Flow Rate (L/min) 2 Oxygen Delivery Method Room Air Weight: 114 kg Body Mass Index (BMI) 49.3 Intake & Output: Intake and Output for Last 24 Hours 02/28/25 03/01/25 03/02/25 23:59 23:59 23:59 Intake Total 1875.00 / 1875.00 120 / 120 100 / 100 Output Total 925 / 1275 1000 / 1000 1000 / 1000 Balance 950.00 / 600.00 -880 / -880 -900 / -900 Lab / Micro Data 03/03/25 05:38 03/03/25 05:38 Labs: Laboratory Results - last 24 hr 03/01/25 16:50: POC Glucose 244 H 03/01/25 21:39: POC Glucose 284 H 03/02/25 06:44: WBC 7.9, RBC 4.12 L, Hgb 12.5, Hct 38.2, MCV 92.7, MCH 30.3, MCHC 32.7, RDW Std Deviation 46.8 H, RDW Coeff of Yovany 13.7, Plt Count 98 L, MPV 11.7, Immature Gran % (Auto) 1.100 H, Neut % (Auto) 58.2, Lymph % (Auto) 23.7, [place] % (Auto) 13.4 H, Eos % (Auto) 2.8, Baso % (Auto) 0.8, Absolute Neuts (auto) 4.6, Absolute Lymphs (auto) 1.88, Nucleated RBC % 0, Platelet Estimate MOD DEC, Sodium 139, Potassium 3.7, Chloride 107, Carbon Dioxide 20.3 L, Anion Gap 11, BUN 14, Creatinine 0.65 L, Estim Creat Clear Calc 68.85, Est GFR (MDRD) Non-Af 91, BUN/Creatinine Ratio 21.7 H, Glucose 215 H, Calcium 8.6 03/02/25 07:07: POC Glucose 207 H 03/02/25 11:40: POC Glucose 243 H Micro: Microbiology 02/28/25 13:40 Blood Culture (Wb) - Right Wrist Blood Culture - Preliminary No growth in 48 hours. 02/26/25 18:05 Blood Culture (Wb) - Pic Blood Culture - Final Streptococcus agalactiae (B) 02/25/25 21:10 Urine, Clean Catch Urine Culture - Final Mixed Gram Positive Organisms Streptococcus agalactiae (B) Gram negative ashley 02/25/25 20:30 Blood Culture (Wb) - Venous Blood Culture - Final Streptococcus agalactiae (B) 02/25/25 21:25 Blood Culture (Wb) - Left Hand Bacteria Detection (PCR) - Final Streptococcus agalactiae (B) 02/25/25 21:25 Blood Culture (Wb) - Left Hand Blood Culture - Final Streptococcus agalactiae (B) 02/25/25 22:30 Mucosa - Nose Respiratory Panel (PCR) - Final 02/25/25 21:11 Mucosa - Nose SARS-CoV-2, Influenza & RSV (PCR) - Final Physical Exam Narrative alert, oriented x3 and no apparent distress Constitutional Narrative: Patient has class III obesity General Appearance: cooperative, well kempt and well developed Orientation / Consciousness: awake, oriented to person and oriented to place HEENT normocephalic, head/scalp atraumatic and moist oral mucous membranes Eyes PERRL, EOMs intact bilaterally and conjunctivae normal Neck supple, no JVD, thyroid normal and no carotid bruits General: trachea midline Resp normal respiratory effort Auscultation: Negative for rales, rhonchi, scattered expiratory wheezes are noted anteriorly Cardio regular rate, regular rhythm, S1 normal heart sound, S2 normal heart sound, no murmurs, no rub and no gallops GI normal to inspection, nondistended, normoactive bowel sounds, soft to palpation, non-tender and non-distended Extremity Patient has generalized edema in her arms and in particular of the left hand Skin no rashes or lesions noted General Skin Exam: no breakdown Neuro CN's II-XII intact bilaterally, no focal motor deficits and no sensory deficits noted Sensorium / Orientation: awake, alert, oriented to person and oriented to place Speech: speech normal Psych affect normal Assessment & Plan Assessment/Plan (1) Streptococcal bacteremia: (2) Septic shock: PLAN: Plan 1. Septic shock secondary to strep agalactiae-again patient was transitioned over to Keflex, her ALEKSANDAR was unremarkable for vegetation. #2 metabolic encephalopathy-cleared at this time, secondary to septic shock #3 class III obesity-complicates care, management, recovery, and prognosis #4 type 2 diabetes-blood sugars will continue to be monitored, sliding scale insulin will be administered as needed #5 generalized debility-patient will be seen by PT and OT #6 paroxysmal atrial fibrillation-patient is currently off Eliquis, she will resume this medication after she is discharged from the hospital. #7 generalized edema-less likely from fluid administration during this hospital admission, I have decided to place the patient on IV Lasix Total clinical time spent by myself addressing the patient's medical issues, reviewing all of her data, and collaborating with the patient's care team: 35 minutes Charges/Coding Visit Charges Inpatient E&M: 55127 Subs Hosp L2
[2025-03-02 22:05] VITALS: BP 169/73; PULSE 96; RESP 16; TEMP 37.1; O2SAT 93
[2025-03-02] MEDS: Pantoprazole Sodium 40 MG in 0.9% Normal Saline (100mL MB+) 100 ML 330 MG IV (22:27)
[2025-03-03] VITALS (7 sets, daily range): BP systolic 124–159; BP diastolic 58–85; PULSE 70–92; RESP 15–18; TEMP 36.6–37.1; O2SAT 93–96
[2025-03-03 05:52] LABS: Hematocrit 38.0 % (37-47); Hemoglobin 12.6 g/dL (12.0-15.0); Immature Granulocytes Count 0.180 X10^3/uL (0.0-0.0); Mean Corp Hgb Conc 33.2 g/dL (32-36); Mean Corpuscular Volume 92.2 fL (81-99); Mean Platelet Vol. 11.0 fl (6.2-12.0); NRBC Flagged by Analyzer 0 % (0-5); Platelet Count 126 K/mm3 (150-450); RBC Distribution Width CV 13.4 % (11.6-14.6); RBC Distribution Width SD 45.8 fl (35.1-43.9); Red Blood Count 4.12 M/mm3 (4.2-5.4); White Blood Count 8.4 K/mm3 (4.4-11.0)
[2025-03-03 06:26] LABS: Anion Gap 12 (5-15); BUN 19 mg/dL (4-19); BUN/Creat Ratio 26.2 RATIO (10-20); Calcium,Total 8.9 mg/dL (7.6-11.0); Carbon Dioxide 23.2 mmol/L (21.0-32.0); Chloride 105 mmol/L (98-108); Estimated Creatinine Clearance 68.85 ml/min (50-250); Glucose 259 mg/dL (70-99); Potassium 3.5 mmol/L (3.3-5.1)
[2025-03-03] MEDS: Furosemide 20 MG/2 ML VIAL IV ×2 (10:39→17:26)
[2025-03-03] MEDS: Calcium Carb/Vitamin D 1 TABLET Tablet PO ×2 (10:40→21:22)
[2025-03-03] MEDS: Metoprolol(XL)Succ 25 MG Tablet PO (10:40)
[2025-03-03] MEDS: 0.9% Saline Lock 10 ML Syringe IV ×2 (10:47→21:22)
--- NOTE | 2025-03-03 14:54 | CASEMGMT ---
[facility] has obtained auth to admit. [facility] CM updated. Susie Collins DC Planning Asst.
--- NOTE | 2025-03-03 15:11 | TREXTCAR_ITS ---
Diet Diet Order/Speech Therapy: INPATIENT Hospital Diet / Speech Therapy Order(s) 03/01/25 10:07 Diet: Cardiac - Heart Healthy Food consistency:: Regular Liquid Consistency:: Regular/Thin Dietary Modifications:: Consistent Carbohydrate Routine Orders/Code Status Code Status: Full Code DC O2, CPAP, BIPAP needs Home O2 Discharge instructions: No Therapies Weight Bearing: Full weight bearing Physical Therapy: Eval and Treat Occupational Therapy: Eval and Treat Problem/Diagnosis (1) Septic shock: Status: Acute Code(s): A41.9 - Sepsis, unspecified organism; R65.21 - Severe sepsis with septic shock Plan 1. Septic shock secondary to strep agalactiae-again patient was transitioned over to Keflex, her ALEKSANDAR was unremarkable for vegetation. #2 metabolic encephalopathy-cleared at this time, secondary to septic shock #3 class III obesity-complicates care, management, recovery, and prognosis #4 type 2 diabetes-blood sugars will continue to be monitored, sliding scale insulin will be administered as needed #5 generalized debility-patient will be seen by PT and OT #6 paroxysmal atrial fibrillation-patient is currently off Eliquis, she will resume this medication after she is discharged from the hospital. Total clinical time spent by myself addressing the patient's medical issues, reviewing all of her data, and collaborating with the patient's care team: 35 minutes Allergies/Procedures Done in Hospital Allergies atorvastatin (From Lipitor) Allergy (Intermediate, Verified 02/08/25 10:33) Rash Procedures: Transesophageal Echo and Transthoracic Echo Type of Care/Length of Stay Estimated LOS: Convalescent Care Less Than 30 days Type of Care Needed: Skilled Rehab Potential: Good Prognosis: Good Additional Orders/Day of Discharge H&P will serve as current which was dated: 02/26/25 Day of Discharge: 03/03/25 Dietary and Speech Recommendations Dietitian Recommendations/Changes: Adjust to cardiac, consistent carbohydrate diet. Will monitor weight trends. Discharge Plan Admission Admit Date/Time: 02/26/25 00:39 Primary Reason for Your Visit: Septic shock Attending Provider: Alen Borjas Primary Care Provider: Marleny Camacho Consulting Providers: Doug Nye; Jesus Alberto Lopez; Candis Willson Discharge Orders/Prescriptions Prescriptions: New amiodarone 200 mg Tablet 200 mg PO BID Qty: 0 0RF Rx Instructions: Continue 200 mg twice a day for 7 days, then reduce the dose of Cordarone to 200 mg daily thereafter cephalexin 500 mg Capsule 500 mg PO Q6 Qty: 0 0RF Rx Instructions: Continue cephalexin 500 mg every 6 hours x 1 week and then discontinue insulin lispro [Humalog KwikPen Insulin] 100 unit/mL Insulin Pen See Protocol subcut ACHS Qty: 1 0RF Protocol: 3. Sliding Scale Insulin Med Dosing Condition: 150-189 mg/dl = 1 unit Condition: 190-229 mg/dl = 2 units Condition: 230-269 mg/dl = 3 units Condition: 270-309 mg/dl = 4 units Condition: 310-349 mg/dl = 5 units Condition: 350-399 mg/dl = 6 units Condition: 400-449 mg/dl = 7 units Condition: Greater than 449 call physician Protocol Text: Suggested for: - Patients on Total Daily Insulin Dose of 37-55 units - Obese, infected, or steroid patients MEDIUM DOSING ALGORITHIM pantoprazole 40 mg Tablet,Delayed Release (Dr/Ec) 40 mg PO QHS Qty: 0 0RF nystatin 100,000 unit/gram Powder 1 applic topical BID Qty: 0 0RF Protocol: *Topical Application Instructions APPLICATION INSTRUCTIONS: apply to groin furosemide [Lasix] 40 mg tablet 40 mg PO DAILY Qty: 1 0RF Continued Eliquis 5 mg tablet 5 mg PO BID Qty: 180 3RF metoprolol succinate 25 mg tablet extended release 24 hr 25 mg PO DAILY glimepiride 4 mg tablet 4 mg PO BID (DME) Accu-Chek Guide test strips Strip MISCELLANEOUS (DME) blood-glucose meter [Accu-Chek Guide Me Glucose Mtr] Misc MISCELLANEOUS Patient Comments: [NO ORIGINAL SIG] calcium carbonate-vitamin D3 [Calcium 600 + D(3)] 600 mg-5 mcg (200 unit) tablet 1 tab PO BID metformin 500 mg tablet 500 mg PO BID Discontinued glucosamine sulfate [Glucosamine] 500 mg tablet 1,000 mg PO DAILY Rx Instructions: administer with meals Ozempic 0.25 mg or 0.5 mg (2 mg/3 mL) pen injector 0.5 mg SUBCUT QWEEK Patient Comments: [NO ORIGINAL SIG] [place] 3 Fish OiL capsule PO BID Patient Comments: 2 capsules two times a day Referrals / Follow Up: Marleny Camacho MD [Primary Care Provider] - Jacinda Dexter NP, BIODIESEL PRODUCT DEVELOPMENT MANAGER-C [Non-Staff -Ordering Privileges] - See Referral Note (In 3 weeks-call office for appointment) Disposition Disposition (needs filled in before D/C Order can be placed): Intermediate Facility
--- NOTE | 2025-03-03 15:31 | PCM.DC.SUM ---
Providers Date of Admission: 02/26/25 Date of Discharge: 03/03/25 Primary Care Physician: Dr. Marleny Camacho MD Consultations 02/26/25 01:09 Consult: Agricultural Equipment Design Engineer / Pulmonary Medicine Routine Consulting Provider: Intensivists/Pulmonary Med Reason for Consult: Sepsis of Unknown origin, Metabolic Encephalopathy and suspected ADR. EMERGENT Consult: No Notified: Yes Date Notified: 02/26/25 Time Notified: 05:13 Method of Notification: Text 02/26/25 07:35 Consult: Infectious Disease Routine Consulting Provider: Jesus Alberto Lopez Reason for Consult: Septic Shock, Gram + bacteremia EMERGENT Consult: No Notified: Yes Date Notified: 02/26/25 Time Notified: 07:35 Method of Notification: Text Reason For Visit: SEPSIS OF UNKNOWN ORIGIN, METABOLIC Diagnosis Discharge Diagnosis (1) Septic shock: Status: Acute Code(s): A41.9 - Sepsis, unspecified organism; R65.21 - Severe sepsis with septic shock Plan 1. Septic shock secondary to strep agalactiae-again patient was transitioned over to Keflex, her ALEKSANDAR was unremarkable for vegetation. #2 metabolic encephalopathy-cleared at this time, secondary to septic shock #3 class III obesity-complicates care, management, recovery, and prognosis #4 type 2 diabetes-blood sugars will continue to be monitored, sliding scale insulin will be administered as needed #5 generalized debility-patient will be seen by PT and OT #6 paroxysmal atrial fibrillation-patient is currently off Eliquis, she will resume this medication after she is discharged from the hospital. Total clinical time spent by myself addressing the patient's medical issues, reviewing all of her data, and collaborating with the patient's care team: 35 minutes Medications at Discharge Home Medications metoprolol succinate 25 mg tablet,extended release 24 hr 25 mg PO DAILY bp 06/01/24 metformin 500 mg tablet 500 mg PO BID diabetes 06/02/24 apixaban 5 mg tablet (Eliquis) 5 mg PO BID #180 tabs 02/08/25 blood sugar diagnostic (Accu-Chek Guide test strips) 02/26/25 blood-glucose meter (Accu-Chek Guide Me Glucose Meter) 02/26/25 calcium 600 mg (as carbonate)-vitamin D3 5 mcg (200 unit) tablet (Calcium 600 + D(3)) 1 tab PO BID supplement 02/26/25 glimepiride 4 mg tablet 4 mg PO BID diabetes 02/26/25 amiodarone 200 mg tablet 200 mg PO BID #0 tabs 03/03/25 cephalexin 500 mg capsule 500 mg PO Q6 #0 caps 03/03/25 furosemide 40 mg tablet (Lasix) 40 mg PO DAILY #1 TAB 03/03/25 insulin lispro 100 unit/mL subcutaneous pen (Humalog KwikPen (U-100) Insulin) See Protocol subcut ACHS #1 mL 03/03/25 nystatin 100,000 unit/gram topical powder 1 applic topical BID #0 grams 03/03/25 pantoprazole 40 mg tablet,delayed release 40 mg PO QHS #0 tabs 03/03/25 Hospital Course Operations None Procedures None Summary of Care Provided Minutes Spent on Discharge: 32 Hospital Course: 74-year-old white female was seen in the emergency room at [facility] with complaints of altered mental status at home according to the family. Family states she had been driving earlier in the day but was confused. Workup in the emergency room revealed a slightly elevated white blood cell count 11.7, chemistry profile was remarkable for glucose of 279 and lactic acid was elevated at 2.2. Urinalysis was unremarkable, CT of the brain showed no acute intracranial findings, chest x-ray was unremarkable, CT of the abdomen pelvis and chest showed no acute chest pathology or abdominal pathology. Patient's high temperature in the emergency room was 103.2. Patient was admitted to the ICU for presumed sepsis, she was placed on IV antibiotics and seen in consultation by critical care. 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 Infectious diseases were consulted and the patient underwent an echocardiogram which showed no evidence of vegetation. A transesophageal echocardiogram was also obtained which showed no evidence of vegetation. Notification of the organism in the blood was strep agalactiae. Patient was moved to the PCU eventually and was seen by PT and OT, it was recommended that she go into a [facility] facility for short-term rehab services and the patient and her family consented. On 03/04/2025, the patient was seen and examined:alert, oriented x3 and no apparent distress Constitutional Narrative: Patient has class III obesity General Appearance: cooperative, well kempt and well developed Orientation / Consciousness: awake, oriented to person and oriented to place HEENT normocephalic, head/scalp atraumatic and moist oral mucous membranes Eyes PERRL, EOMs intact bilaterally and conjunctivae normal Neck supple, no JVD, thyroid normal and no carotid bruits General: trachea midline Resp normal respiratory effort Auscultation: Negative for rales, rhonchi, scattered expiratory wheezes are noted anteriorly Cardio regular rate, regular rhythm, S1 normal heart sound, S2 normal heart sound, no murmurs, no rub and no gallops GI normal to inspection, nondistended, normoactive bowel sounds, soft to palpation, non-tender and non-distended Extremity Patient has generalized edema in her arms and in particular of the left hand Skin no rashes or lesions noted General Skin Exam: no breakdown Neuro CN's II-XII intact bilaterally, no focal motor deficits and no sensory deficits noted Sensorium / Orientation: awake, alert, oriented to person and oriented to place Speech: speech normal Psych affect normal Patient was felt to be stable for discharge to the extended care facility on 03/04/2025. Weight / BMI Weight Weight: 112.8 kg Body Mass Index (BMI) 48.8 ABG / Lab / Microbiology Data 03/04/25 03:53 03/04/25 03:53 Laboratory: Laboratory Results - last 24 hr 03/02/25 22:36: POC Glucose 305 H 03/03/25 05:38: WBC 8.4, RBC 4.12 L, Hgb 12.6, Hct 38.0, MCV 92.2, MCH 30.6, MCHC 33.2, RDW Std Deviation 45.8 H, RDW Coeff of Yovany 13.4, Plt Count 126 L, MPV 11.0, Immature Gran % (Auto) 2.200 H, Neut % (Auto) 53.1, Lymph % (Auto) 26.2, [place] % (Auto) 13.5 H, Eos % (Auto) 4.0, Baso % (Auto) 1.0, Absolute Neuts (auto) 4.4, Absolute Lymphs (auto) 2.19, Nucleated RBC % 0, Sodium 140, Potassium 3.5, Chloride 105, Carbon Dioxide 23.2, Anion Gap 12, BUN 19, Creatinine 0.74, Estim Creat Clear Calc 68.85, Est GFR (MDRD) Non-Af 84, BUN/Creatinine Ratio 26.2 H, Glucose 259 H, Calcium 8.9 03/03/25 06:25: POC Glucose 264 H 03/03/25 10:56: POC Glucose 265 H Microbiology: Microbiology 02/28/25 19:30 Blood Culture (Wb) - Right Hand Blood Culture - Final No growth in 5 days. 02/28/25 13:40 Blood Culture (Wb) - Right Wrist Blood Culture - Final No growth in 5 days. 02/26/25 18:05 Blood Culture (Wb) - Pic Blood Culture - Final Streptococcus agalactiae (B) 02/25/25 21:10 Urine, Clean Catch Urine Culture - Final Mixed Gram Positive Organisms Streptococcus agalactiae (B) Gram negative ashley 02/25/25 20:30 Blood Culture (Wb) - Venous Blood Culture - Final Streptococcus agalactiae (B) 02/25/25 21:25 Blood Culture (Wb) - Left Hand Bacteria Detection (PCR) - Final Streptococcus agalactiae (B) 02/25/25 21:25 Blood Culture (Wb) - Left Hand Blood Culture - Final Streptococcus agalactiae (B) 02/25/25 22:30 Mucosa - Nose Respiratory Panel (PCR) - Final 02/25/25 21:11 Mucosa - Nose SARS-CoV-2, Influenza & RSV (PCR) - Final D/C Instructions DC O2, CPAP, BIPAP Needs Home O2 Discharge instructions: No Meaningful Use Info Meaningful Use Meaningful Use Diagnoses (Choose all that apply): None applicable Discharge Plan Admission Admit Date/Time: 02/26/25 00:39 Primary Reason for Your Visit: Septic shock Attending Provider: Alen Borjas Primary Care Provider: Marleny Camacho Consulting Providers: Doug Nye; Jesus Alberto Lopez; Candis Willson Discharge Orders/Prescriptions Prescriptions: New amiodarone 200 mg Tablet 200 mg PO BID Qty: 0 0RF Rx Instructions: Continue 200 mg twice a day for 7 days, then reduce the dose of Cordarone to 200 mg daily thereafter cephalexin 500 mg Capsule 500 mg PO Q6 Qty: 0 0RF Rx Instructions: Continue cephalexin 500 mg every 6 hours x 1 week and then discontinue insulin lispro [Humalog KwikPen Insulin] 100 unit/mL Insulin Pen See Protocol subcut ACHS Qty: 1 0RF Protocol: 3. Sliding Scale Insulin Med Dosing Condition: 150-189 mg/dl = 1 unit Condition: 190-229 mg/dl = 2 units Condition: 230-269 mg/dl = 3 units Condition: 270-309 mg/dl = 4 units Condition: 310-349 mg/dl = 5 units Condition: 350-399 mg/dl = 6 units Condition: 400-449 mg/dl = 7 units Condition: Greater than 449 call physician Protocol Text: Suggested for: - Patients on Total Daily Insulin Dose of 37-55 units - Obese, infected, or steroid patients MEDIUM DOSING ALGORITHIM pantoprazole 40 mg Tablet,Delayed Release (Dr/Ec) 40 mg PO QHS Qty: 0 0RF nystatin 100,000 unit/gram Powder 1 applic topical BID Qty: 0 0RF Protocol: *Topical Application Instructions APPLICATION INSTRUCTIONS: apply to groin furosemide [Lasix] 40 mg tablet 40 mg PO DAILY Qty: 1 0RF Continued Eliquis 5 mg tablet 5 mg PO BID Qty: 180 3RF metoprolol succinate 25 mg tablet extended release 24 hr 25 mg PO DAILY glimepiride 4 mg tablet 4 mg PO BID (DME) Accu-Chek Guide test strips Strip MISCELLANEOUS (DME) blood-glucose meter [Accu-Chek Guide Me Glucose Mtr] Misc MISCELLANEOUS Patient Comments: [NO ORIGINAL SIG] calcium carbonate-vitamin D3 [Calcium 600 + D(3)] 600 mg-5 mcg (200 unit) tablet 1 tab PO BID metformin 500 mg tablet 500 mg PO BID Discontinued glucosamine sulfate [Glucosamine] 500 mg tablet 1,000 mg PO DAILY Rx Instructions: administer with meals Ozempic 0.25 mg or 0.5 mg (2 mg/3 mL) pen injector 0.5 mg SUBCUT QWEEK Patient Comments: [NO ORIGINAL SIG] [place] 3 Fish OiL capsule PO BID Patient Comments: 2 capsules two times a day Referrals / Follow Up: Marleny Camacho MD [Primary Care Provider] - Jacinda Dexter NP, FIRE EXTINGUISHER REPAIRER INSPECTOR-C [Non-Staff -Ordering Privileges] - See Referral Note (In 3 weeks-call office for appointment) Disposition Disposition (needs filled in before D/C Order can be placed): Long-Term Facility Charges/Coding Visit Charges Inpatient E&M: 18763 Disch Hosp >30min
--- NOTE | 2025-03-03 17:48 | PN.HOSP_ITS ---
Reason for Visit Chief Complaint: Fever and Confusion. Subjective Subjective Patient was seen and examined today, she continues to diurese on IV Lasix. We received confirmation today that she was excepted by [facility], however, patient would not be transported until approximately 9 PM tonight and the fpc asked if we could keep the patient 1 more day in the hospital and I agreed, she can continue with IV diuresis in the meantime and be reevaluated tomorrow. Objective Data Objective Data Vital Signs: Vital Signs Temp Pulse Resp BP Pulse Ox O2 Del Method O2 Flow Rate 97.8 F 88 15 124/58 H 96 Room Air 2 03/03/25 17:21 03/03/25 17:21 03/03/25 17:21 03/03/25 17:21 03/03/25 17:21 03/03/25 17:37 03/01/25 15:23 Oxygen Flow Rate (L/min) 2 Oxygen Delivery Method Room Air Weight: 114 kg Body Mass Index (BMI) 49.3 Intake & Output: Intake and Output for Last 24 Hours 03/01/25 03/02/25 03/03/25 23:59 23:59 23:59 Intake Total 120 / 120 800 / 800 575 / 575 Output Total 1000 / 1000 3020 / 3020 1825 / 1825 Balance -880 / -880 -2220 / -2220 -1250 / -1250 Lab / Micro Data 03/04/25 03:53 03/04/25 03:53 Labs: Laboratory Results - last 24 hr 03/02/25 22:36: POC Glucose 305 H 03/03/25 05:38: WBC 8.4, RBC 4.12 L, Hgb 12.6, Hct 38.0, MCV 92.2, MCH 30.6, MCHC 33.2, RDW Std Deviation 45.8 H, RDW Coeff of Yovany 13.4, Plt Count 126 L, MPV 11.0, Immature Gran % (Auto) 2.200 H, Neut % (Auto) 53.1, Lymph % (Auto) 26.2, M iker % (Auto) 13.5 H, Eos % (Auto) 4.0, Baso % (Auto) 1.0, Absolute Neuts (auto) 4.4, Absolute Lymphs (auto) 2.19, Nucleated RBC % 0, Sodium 140, Potassium 3.5, Chloride 105, Carbon Dioxide 23.2, Anion Gap 12, BUN 19, Creatinine 0.74, Estim Creat Clear Calc 68.85, Est GFR (MDRD) Non-Af 84, BUN/Creatinine Ratio 26.2 H, G lucose 259 H, Calcium 8.9 03/03/25 06:25: POC Glucose 264 H 03/03/25 10:56: POC Glucose 265 H Micro: Microbiology 02/28/25 19:30 Blood Culture (Wb) - Right Hand Blood Culture - Preliminary No growth in 48 hours. 02/28/25 13:40 Blood Culture (Wb) - Right Wrist Blood Culture - Preliminary No growth in 48 hours. 02/26/25 18:05 Blood Culture (Wb) - Pic Blood Culture - Final Streptococcus agalactiae (B) 02/25/25 21:10 Urine, Clean Catch Urine Culture - Final Mixed Gram Positive Organisms Streptococcus agalactiae (B) Gram negative ashley 02/25/25 20:30 Blood Culture (Wb) - Venous Blood Culture - Final Streptococcus agalactiae (B) 02/25/25 21:25 Blood Culture (Wb) - Left Hand Bacteria Detection (PCR) - Final Streptococcus agalactiae (B) 02/25/25 21:25 Blood Culture (Wb) - Left Hand Blood Culture - Final Streptococcus agalactiae (B) 02/25/25 22:30 Mucosa - Nose Respiratory Panel (PCR) - Final 02/25/25 21:11 Mucosa - Nose SARS-CoV-2, Influenza & RSV (PCR) - Final Physical Exam Narrative alert, oriented x3 and no apparent distress Constitutional Narrative: Patient has class III obesity General Appearance: cooperative, well kempt and well developed Orientation / Consciousness: awake, oriented to person and oriented to place HEENT normocephalic, head/scalp atraumatic and moist oral mucous membranes Eyes PERRL, EOMs intact bilaterally and conjunctivae normal Neck supple, no JVD, thyroid normal and no carotid bruits General: trachea midline Resp normal respiratory effort Auscultation: Negative for rales, rhonchi, scattered expiratory wheezes are noted anteriorly Cardio regular rate, regular rhythm, S1 normal heart sound, S2 normal heart sound, no murmurs, no rub and no gallops GI normal to inspection, nondistended, normoactive bowel sounds, soft to palpation, non-tender and non-distended Extremity Patient has generalized edema in her arms and in particular of the left hand Skin no rashes or lesions noted General Skin Exam: no breakdown Neuro CN's II-XII intact bilaterally, no focal motor deficits and no sensory deficits noted Sensorium / Orientation: awake, alert, oriented to person and oriented to place Speech: speech normal Psych affect normal Assessment & Plan Assessment/Plan (1) Septic shock: PLAN: Plan 1. Septic shock secondary to strep agalactiae-again patient was transitioned over to Keflex #2 metabolic encephalopathy-cleared at this time, secondary to septic shock #3 class III obesity-complicates care, management, recovery, and prognosis #4 type 2 diabetes-blood sugars will continue to be monitored, sliding scale insulin will be administered as needed #5 generalized debility-patient will be seen by PT and OT #6 paroxysmal atrial fibrillation-patient is currently off Eliquis, she will resume this medication after she is discharged from the hospital. #7 generalized edema-probably secondary to fluid administration during this hospitalization, IV Lasix will be continued Total clinical time spent by myself addressing the patient's medical issues, reviewing all of her data, and collaborating with the patient's care team: 35 minutes Charges/Coding Visit Charges Inpatient E&M: 81498 Subs Hosp L2
[2025-03-04 04:01] LABS: Hematocrit 39.2 % (37-47); Hemoglobin 13.2 g/dL (12.0-15.0); Immature Granulocytes Count 0.310 X10^3/uL (0.0-0.0); Mean Corp Hgb Conc 33.7 g/dL (32-36); Mean Corpuscular Volume 91.4 fL (81-99); Mean Platelet Vol. 10.8 fl (6.2-12.0); NRBC Flagged by Analyzer 0 % (0-5); Platelet Count 154 K/mm3 (150-450); RBC Distribution Width CV 13.4 % (11.6-14.6); RBC Distribution Width SD 44.7 fl (35.1-43.9); Red Blood Count 4.29 M/mm3 (4.2-5.4); White Blood Count 9.0 K/mm3 (4.4-11.0)
[2025-03-04 04:20] VITALS: BP 122/59; PULSE 95; RESP 16; TEMP 37; O2SAT 94
[2025-03-04 04:52] LABS: Anion Gap 12 (5-15); BUN 18 mg/dL (4-19); BUN/Creat Ratio 24.7 RATIO (10-20); Calcium,Total 8.6 mg/dL (7.6-11.0); Carbon Dioxide 24.8 mmol/L (21.0-32.0); Chloride 100 mmol/L (98-108); Estimated Creatinine Clearance 68.85 ml/min (50-250); Glucose 286 mg/dL (70-99); Potassium 3.4 mmol/L (3.3-5.1)
[2025-03-04 05:18] VITALS: BMI 48.8
[2025-03-04 09:53] VITALS: BP 140/64; PULSE 103; RESP 20; TEMP 36.8; O2SAT 94
[2025-03-04 09:55] VITALS: PULSE 103
[2025-03-04] MEDS: Calcium Carb/Vitamin D 1 TABLET Tablet PO (09:55)
[2025-03-04] MEDS: Furosemide 20 MG/2 ML VIAL IV (09:55)
[2025-03-04] MEDS: Metoprolol(XL)Succ 25 MG Tablet PO (09:55)
--- NOTE | 2025-03-04 11:07 | CASEMGMT ---
Discharge Planning Discharge orders, signed med list, and transport time sent to [facility]. Physicians will transport pt by cot at 11a. Nursing, SW, pt, and her updated. Susie He DC Planning Asst.
--- NOTE | 2025-03-04 11:36 | NURSING ---
Attempted to call [facility] for report x2, no answers
--- NOTE | 2025-03-04 13:41 | CASEMGMT ---
Patient discharging to [facility] for skilled level of care. 7000 completed and filed in chart.
== END 2025-03-04 11:25 | disposition skilled nursing facility (03) | DRG 871 ==
LOC: ED 23:21 → ICU 02-26 00:55 → PCU 02-28 14:44
PROVIDERS: Student in an Organized Health Care Education/Training Program; Admitting Provider Internal Medicine; Emergency Provider Emergency Medicine; PCP Internal Medicine; Visit Provider Internal Medicine
DX: A40.1 Sepsis due to streptococcus, group B (principal); G93.41 Metabolic encephalopathy; R65.21 Severe sepsis with septic shock; Z68.42 Body mass index [BMI] 45.0-49.9, adult; E11.65 Type 2 diabetes mellitus with hyperglycemia; I10 Essential (primary) hypertension; Z95.2 Presence of prosthetic heart valve; I48.0 Paroxysmal atrial fibrillation; E78.5 Hyperlipidemia, unspecified; E66.813 Obesity, class 3; R60.1 Generalized edema; Z95.0 Presence of cardiac pacemaker; Z79.1 Long term (current) use of non-steroidal anti-inflammatories (NSAID); Z79.01 Long term (current) use of 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; Z79.84 Long term (current) use of oral hypoglycemic drugs; Z79.899 Other long term (current) drug therapy; Z86.16 Personal history of COVID-19
CPT/HCPCS: 36415; 36569; 36600; 70450; 71045; 71260; 74177; 80048; 80053; 80061; 80202; 80307; 81001; 82010; 82077; 82607; 82746; 82803; 82962; 83036; 83605; 83735; 84100; 84443; 84484; 85025; 85610; 85730; 87040; 87077; 87086; 87088; 87149; 87186; 87631; 87633; 93005; 93306; 93312; 93320; 93325; 94762; 97162; 97167; 97530; 97535; 97802; 97803; 99285; P9047; Q9957; Q9967; A4216; C8929; J1938

== ENCOUNTER 2025-03-05 10:08 | Emergency (ER) | payer MEDICARE, SELFPAY ==
[2025-03-05 10:11] VITALS: BP 118/84; PULSE 106; RESP 24; TEMP 36.9; O2SAT 95; BMI 48.2
[2025-03-05 10:33] VITALS: BP 136/94; PULSE 113; RESP 20; TEMP 36.9; O2SAT 95
--- NOTE | 2025-03-05 10:56 | EKG12_ITS ---
Test Reason : Blood Pressure : */* mmHG Vent. Rate : 95 BPM Atrial Rate : 95 BPM P-R Int : 150 ms QRS Dur : 134 ms QT Int : 416 ms P-R-T Axes : 37 92 6 degrees QTcB Int : 522 ms Normal sinus rhythm Right bundle branch block Abnormal ECG bpm Confirmed by LUCIANA PATEL MD ([id number]), school photograph editor MOUNIKA SANABRIA ([id number]) on 03/08/2025 1:03:50 PM Referred By: Confirmed By: LUCIANA PATEL MD
--- NOTE | 2025-03-05 10:57 | EX.ED.DYSGE1 ---
HPI History of Present Illness Chief Complaint: Shortness of Breath Informant: patient, EMS and SNF Narrative Narrative: 74-year-old female sent to the ER today, she just arrived at [facility] yesterday after being discharged from the hospital here where she was treated for bacteremia and septic shock, according to the [facility] facility she has asymmetric swelling in her upper extremities, they did a Doppler of the left upper extremity and is positive for DVT so they started her on Eliquis but this morning she was tachypneic around 40 and tachycardic in the 120 area so they sent her here to be evaluated for pulmonary embolus. The patient does not recall this and states she has no complaints. She denies any dyspnea, chest discomfort, syncope or near syncope. She states her left arm is edematous but it does not hurt and she denies any other complaints right now. [facility] Medical History Paroxysmal atrial fibrillation Intermittent complete heart block Presence of cardiac pacemaker Obesity Diabetes COVID-19 virus detected (05/19/20) Atrial fibrillation with rapid ventricular response (08/2015) Right bundle branch block (RBBB) Type 2 diabetes mellitus Nonrheumatic aortic (valve) stenosis Essential (primary) hypertension Microcalcification of left breast on mammogram Abnormal mammogram of left breast Sepsis Diverticulitis Encephalopathy DKA (diabetic ketoacidoses) Arthritis Aortic valve calcification Diabetes type 2, uncontrolled Morbid obesity Home Medications ?Medication ?Instructions ?Recorded ?Last Taken ?Type metoprolol succinate 25 mg 25 mg PO DAILY bp 06/01/24 Unknown History tablet,extended release 24 hr metformin 500 mg tablet 500 mg PO BID diabetes 06/02/24 Unknown History apixaban 5 mg tablet (Eliquis) 5 mg PO BID #180 tabs 02/08/25 Unknown Rx blood sugar diagnostic (Accu-Chek 02/26/25 Unknown History Guide test strips) blood-glucose meter (Accu-Chek 02/26/25 Unknown History Guide Me Glucose Meter) calcium 600 mg (as 1 tab PO BID supplement 02/26/25 Unknown History carbonate)-vitamin D3 5 mcg (200 unit) tablet (Calcium 600 + D(3)) glimepiride 4 mg tablet 4 mg PO BID diabetes 02/26/25 Unknown History amiodarone 200 mg tablet 200 mg PO BID #0 tabs 03/03/25 Unknown Rx cephalexin 500 mg capsule 500 mg PO Q6 #0 caps 03/03/25 Unknown Rx furosemide 40 mg tablet (Lasix) 40 mg PO DAILY #1 TAB 03/03/25 Unknown Rx insulin lispro 100 unit/mL See Protocol subcut ACHS #1 mL 03/03/25 Unknown Rx subcutaneous pen (Humalog KwikPen (U-100) Insulin) nystatin 100,000 unit/gram topical 1 applic topical BID #0 grams 03/03/25 Unknown Rx powder pantoprazole 40 mg tablet,delayed 40 mg PO QHS #0 tabs 03/03/25 Unknown Rx release Allergy/AdvReac Type Severity Reaction Status Date / Time atorvastatin (From Lipitor) Allergy Intermediate Rash Verified 03/05/25 10:09 Family History Father COPD (chronic obstructive pulmonary disease) CAD (coronary artery disease) Mother Cancer Breast cancer Surgical History History of right hip replacement (12/02/19) history left breast stereotactic biopsy (02/10/18) History of total right knee replacement (TKR) History of total left knee replacement (01/31/09) History of total hysterectomy History of appendectomy Social History Smoking Status: Never smoker second hand exposure: No alcohol intake: never substance use type: does not use caffeine: No what type of physical activity do you participate in: none frequency: does not exercise seatbelt use: always ROS ROS ED Constitutional Constitutional ED: Denies chills or fever(s) Eyes Eyes: Denies change in vision or diplopia ENT ENT ED: Denies rhinorrhea or sore throat Cardiovascular Cardiovascular: Denies chest pain or palpitations Respiratory/Chest Respiratory/Chest: Denies cough or dyspnea Gastrointestinal Gastrointestinal: Denies abdominal pain, diarrhea, nausea or vomiting Genitourinary Genitourinary ED: Denies dysuria or hematuria Musculoskeletal Musculoskeletal: Reports other Details: Left arm swelling ; Denies back pain or neck pain Integumentary Denies abscess or rash Neurologic Neurologic: Denies headache(s), paresthesias or weakness Psychiatric Psychiatric: Denies anxiety or suicidal thoughts EXAM Physical Exam Const Vital Signs: 03/05/25 10:11 03/05/25 10:15 03/05/25 10:33 Temperature 98.4 F 98.4 F Temperature Source Oral Oral Pulse Rate 106 H 113 H Respiratory Rate 24 H 20 H Respiratory Effort Normal Non-Labored Respiratory Pattern Tachypnea Blood Pressure 118/84 H 136/94 H Blood Pressure Mean 95 108 Pulse Ox 95 95 Oxygen Delivery Method Room Air Room Air 03/05/25 11:30 Temperature 98.3 F Temperature Source Oral Pulse Rate 94 Respiratory Rate 22 H Respiratory Effort Respiratory Pattern Blood Pressure 133/72 H Blood Pressure Mean 92 Pulse Ox 93 Oxygen Delivery Method Room Air Positive well nourished, well developed and obese General Appearance ED: well developed and NAD Nutritional Appearance: obese HEENT Reports moist mucous membranes normocephalic and atraumatic Eyes PERRL and EOMs intact bilaterally Neck full ROM and supple Resp normal respiratory effort and clear to auscultation bilaterally Cardio regular rate, regular rhythm and no murmurs GI non-tender and non-distended Auscultation: normoactive bowel sounds Palpation: soft Back/Spine no CVA tenderness General Back: other FROM Extremity normal to inspection Extremity Narrative: Strong 2+/4 left radial pulse despite edema General Extremety ED: Yes edema; Negative for pulses abnormal or tenderness General Extremity: edema left upper extremity severe (All compartments soft nondistended nontender. There is some bruising discoloration to the dorsum of the left hand but it is nontender and she has brisk cap refill all fingers.); Negative for pulses abnormal Neuro oriented x3, CN's II-XII intact bilaterally and no sensory deficits noted Sensorium / Orientation: awake and alert Motor Exam: strength 5/5 throughout Psych mental status grossly normal Skin no rashes or lesions noted and no wounds MDM MDM MDM Narrative Medical decision making narrative: Here in the ER, her vital signs are essentially unremarkable, her heart rate is just over 100 and her respirations are 20. She denies any dyspnea or respiratory distress. She denies any chest discomfort. Given the vital signs that [facility] had earlier, sent her for CTA of the chest, I reviewed the images and report which I agree with, it is basically normal. Is negative for PE and no pneumonia or other infiltrate. Prior to doing this I reviewed her labs from yesterday showing that her renal function was normal. Did not EKG today that shows at the time of it being performed, sinus rhythm with a right bundle branch block which is stable, and heart rate 95, no injury pattern. I do not think we need to repeat any other labs. She was started on Eliquis as appropriate for the DVT diagnosed in the left upper extremity, stable for discharge back to [facility] facility. History & Record Review Additional record(s) reviewed:: Prior inpatient record and Prior labs Radiography Diagnostic Testing: Clinical Impression(s) from Imaging Studies Chest CTA 03/05/25 11:07 IMPRESSION: No evidence of pulmonary embolism. No pulmonary infiltration or mass lesion is seen. Reading Location: [id number] Rhythm Strip Rhythm Strip: Sinus Rhythm Rate: 95 Ectopy: None EKG Initial EKG: Attestation: I personally reviewed and interpreted this EKG as follows: Interpretation: Sinus Rhythm, No Acute Injury Pattern and RBBB Comments: Other than widened QRS, normal intervals and normal axis borderline rightward Prior EKG tracings: available for review Prior: Unchanged Discharge Plan Triage Chief Complaint: Shortness of Breath ED Provider: Luther Zapata Dx/Rx/DC Orders Clinical Impression: Tachycardia, Acute deep vein thrombosis (DVT) of left upper extremity, Anticoagulated on apixaban Instructions: DVT Tx Prescriptions: No Action Eliquis 5 mg tablet 5 mg PO BID Qty: 180 3RF metoprolol succinate 25 mg tablet extended release 24 hr 25 mg PO DAILY glimepiride 4 mg tablet 4 mg PO BID (DME) Accu-Chek Guide test strips Strip MISCELLANEOUS (DME) blood-glucose meter [Accu-Chek Guide Me Glucose Mtr] Misc MISCELLANEOUS Patient Comments: [NO ORIGINAL SIG] calcium carbonate-vitamin D3 [Calcium 600 + D(3)] 600 mg-5 mcg (200 unit) tablet 1 tab PO BID amiodarone 200 mg Tablet 200 mg PO BID Qty: 0 0RF Rx Instructions: Continue 200 mg twice a day for 7 days, then reduce the dose of Cordarone to 200 mg daily thereafter cephalexin 500 mg Capsule 500 mg PO Q6 Qty: 0 0RF Rx Instructions: Continue cephalexin 500 mg every 6 hours x 1 week and then discontinue insulin lispro [Humalog KwikPen Insulin] 100 unit/mL Insulin Pen See Protocol subcut ACHS Qty: 1 0RF Protocol: 3. Sliding Scale Insulin Med Dosing Condition: 150-189 mg/dl = 1 unit Condition: 190-229 mg/dl = 2 units Condition: 230-269 mg/dl = 3 units Condition: 270-309 mg/dl = 4 units Condition: 310-349 mg/dl = 5 units Condition: 350-399 mg/dl = 6 units Condition: 400-449 mg/dl = 7 units Condition: Greater than 449 call physician Protocol Text: Suggested for: - Patients on Total Daily Insulin Dose of 37-55 units - Obese, infected, or steroid patients MEDIUM DOSING ALGORITHIM pantoprazole 40 mg Tablet,Delayed Release (Dr/Ec) 40 mg PO QHS Qty: 0 0RF nystatin 100,000 unit/gram Powder 1 applic topical BID Qty: 0 0RF Protocol: *Topical Application Instructions APPLICATION INSTRUCTIONS: apply to groin furosemide [Lasix] 40 mg tablet 40 mg PO DAILY Qty: 1 0RF metformin 500 mg tablet 500 mg PO BID Primary Care Provider: Marleny Camacho Referrals: Marleny Camacho MD [Primary Care Provider] - Activity Restrictions/Additional Instructions: CTA chest normal no PE continue apixaban for presumed left upper extremity DVT Print Language: Georgian Disposition Disposition: Home, Self Care
--- NOTE | 2025-03-05 11:07 | CT_ITS ---
PROCEDURE: CTA CHEST W/WO CONTRAST 03/05/2025 REASON FOR EXAM: TACHYCARDIC, DVT TECHNIQUE: CTA CHEST W/WO CONTRAST Multiplanar Sagittal and Coronal images were obtained. 3D post processing was performed CONTRAST: Isovue 370 VOLUME: 95 mL One or more dose reduction techniques were used (e.g., Automated exposure control, adjustment of the mA and/or kV according to patient size, use of iterative reconstruction technique). RADIATION DOSE SUMMARY: CTDlvol: 13.3 mGy DLP: 429.69 mGycm COMPARISON: Prior chest radiograph dated February 28, 2025. FINDINGS: Hardware: A dual-chamber pacemaker is seen. Lymph nodes: Calcified right hilar lymph nodes. Heart: The heart is not enlarged. Coronary artery calcification. Prior aortic valve replacement. Thoracic Aorta: No thoracic aortic aneurysm or dissection. Atherosclerotic plaque formation of the thoracic aorta and aortic arch. Pulmonary Vessels: No evidence of pulmonary embolism. Lungs and Airways: Mild degree of scarring at the lung bases. No evidence of infiltration or mass lesion. Pleura: No pleural effusion. Upper Abdomen: Unremarkable Bones: Bone windows are unremarkable. CT/CTA Chest W/WO Contrast IMPRESSION: No evidence of pulmonary embolism. No pulmonary infiltration or mass lesion is seen. Reading Location: [facility]
[2025-03-05 11:30] VITALS: BP 133/72; PULSE 94; RESP 22; TEMP 36.8; O2SAT 93
[2025-03-05 11:50] VITALS: BP 128/70; PULSE 104; RESP 22; TEMP 36.9; O2SAT 92
--- NOTE | 2025-03-05 12:12 | ED.RN ---
called to inform of pt's discharge to [facility]
--- NOTE | 2025-03-05 13:25 | ED.RN ---
multiple attempts to [facility] to give report with no answer
== END 2025-03-05 13:39 | disposition home or self-care (01) ==
PROVIDERS: Emergency Provider Emergency Medicine; PCP Internal Medicine; Visit Provider Emergency Medicine
DX: R00.0 Tachycardia, unspecified (principal); I82.622 Acute embolism and thrombosis of deep veins of left upper extremity; E11.9 Type 2 diabetes mellitus without complications; Z86.16 Personal history of COVID-19
CPT/HCPCS: 71275; 93005; 99285; Q9967; A4216

== ENCOUNTER → 2025-03-30 | Outpatient (REF) | payer MEDICARE, SELFPAY ==
--- OUTSIDE RECORDS SUMMARY | 2025-03-30 04:35 | XMS RPT_ITS | CCD ---
Author Organization [facility] Care Team Providers Care Nuclear Medicine Supervisor Name Role Phone Dr. Abby Mcclellan Primary Care Provider Dr. Abby Mcclellan Referring Provider Marli GARIBAY, LANI Cummings Attending Provider Dr. Ac Hubbard Attending Provider Abby Mcclellan MD Primary Care Provider Dr. Abby Mcclellan Primary Care Provider Dr. Abby Mccllelan Referring Provider Dr. Hawk Flannery Attending Provider Abby Mcclellan MD Primary Care Provider Abby Mcclellan MD Primary Care Provider Abby Mcclellan MD Primary Care Provider Abby Mcclellan Primary Care Provider Hawk VICE PRESIDENT PLANNING.SENIOR AUDIT MANAGER, Heidy Unavailable Dave VICE PRESIDENT PLANNING.ROBOTIC MAINTENANCE TECHNICIAN, Kamlesh Unavailable Dave VICE PRESIDENT PLANNING.ROBOTIC MAINTENANCE TECHNICIANKamlesh Radha Unavailable Dave VICE PRESIDENT PLANNING.ROBOTIC MAINTENANCE TECHNICIAN, Kamlesh Unavailable Dave VICE PRESIDENT PLANNING.ROBOTIC MAINTENANCE TECHNICIAN, Kamlesh Unavailable Dr. Abby Mcclellan MD Primary Care Provider Dr. Ac Hubbard MD Attending Provider Hawk VICE PRESIDENT PLANNING.SENIOR AUDIT MANAGER, Heidy Unavailable DAVE, KAMLESH Attending Unavailable TALAMPAS, [...] TALAMPAS, ABBY D Primary Care Unavailable Hawk VICE PRESIDENT PLANNING.SENIOR AUDIT MANAGER, Heidy Unavailable Dr. Abby Mcclellan MD Primary Care Provider [phone] Haydee RAZA, Dr. Shen Attending Provider Doug RAZA, Dr. Abby Edwards Referring Provider Hilary Jackman Attending Provider Unavailable Gm Carter Attending Provider Carolyn BARTHOLOMEW, Dr. Chowdary Emergency Provider [phone] Gavin BARTHOLOMEW, Dr. Camacho Admit Provider Unavail able de Gavin BARTHOLOMEW, Dr. Camacho Attending Provider Unav ailable Carolyn BARTHOLOMEW, Dr. Chowdary Emergency Provider [phone] de Gavin BARTHOLOMEW, Dr. Camacho Admit Provider Unavail able de Gavin BARTHOLOMEW, Dr. Camacho Other Provider Unavail able John RAZA, Dr. Granda Other Provider Dr. Alen Borjas DO Attending Provider Anamika RAZA, Dr. Candis Amaya Other Provider Mera RAZA, Dr. Terrazas Other Provider Ivana RAZA, Dr. Rivera Other Provider Margarito RAZA, Dr. Orlando Other Provider Andrea BARTHOLOMEW, Dr. Jacobo Attending Provider [phone] Dr. Donnell Mendez DO Other Provider Marybeth RAZA, Dr. Doug Dejesus Other Provider Margie RAZA, Dr. Marie Other Provider [phone] Karely RAZA, Dr. Anton Other Provider Latasha RAZA, Dr. Naranjo Other Provider [phone] James RAZA, Dr. Bennett Other Provider Jesus RAZA, Dr. Botello Other Provider [phone] Rocael RAZA, Dr. Shepherd Other Provider Damian RAZA, Dr. Quarles Other Provider Anthony RAZA, Dr. Solitario Other Provider Unavailabl cherri Blanco MD, Dr. Roper Other Provider Hui RAZA, Dr. Meza Other Provider Sho RAZA, Dr. Koch Other Provider Sagrario RAZA, Dr. Reich Other Provider Breanna BARTHOLOMEW, Dr. Hightower Other Provider [phone] Harriet RAZA, Dr. Erwin Other Provider Femi RAZA, Dr. Lyman Other Provider Louis BARTHOLOMEW, Dr. Gunter Other Provider Alok RAZA, Dr. Warner Other Provider Randall RAZA, Dr. Silverio Other Provider [phone] Samuel RAZA, Cesar Attending Provider Dr. Donnell Mendez DO Referring Provider Anamika RAZA, Dr. Candis Amaya Attending Provider Dr. Alen Borjas DO Other Provider [phone] Benny RAZA, Dr. Sloan Emergency Provider TALAMPAS, ABBY, Primary Care Unavailable IRA AQUINO Attending Unavailable RENZO HORTA Attending Unavailable TALAMPAS, ABBY, Primary Care Unavailable SRINIVASA POON Attending Unavailable TALAMPAS, ABBY, Primary Care Unavailable SUNITA DAVIS Attending Unavailable TALAMPAS, ABBY, Primary Care Unavailable TALAMPAS, ABBY, Primary Care Unavailable SUNITA DAVIS Referring Unavailable SUNITA DAVIS Attending Unavailable TALAMPAS, ABBY, Primary Care Unavailable LINDSEY TOLENTINO Referring Unavailable LINDSEY TOLENTINO Attending Unavailable TALAMPAS, ABBY, Primary Care Unavailable SRINIVASA POON Attending Unavailable SRINIVASA POON Admitting Unavailable TALAMPAS, ABBY, Primary Care Unavailable LINDSEY TOLENTINO Attending Unavailable Benny RAZA, Dr. Sloan Attending Provider Loulou Ellison MD Attending Provider UnavailMk Harper Consulting Unavailable Talampas, Abby D Primary Care Unavailable Anamika, Candis Monique Attending Unavailable Doug Argueta Admitting Unavailable Miguel Heath Consulting Unavailable Darion Pimentel Consulting Unavailable Donnell Mendez Consulting Unavailable Doug Rueda Consulting Unavailable Frank Hanson Consulting Unavailable Desean Cali Consulting Unavailable Marcella Pagan Consulting UnavailDonald Webb Consulting Unavailable Ayan Lee Consulting Unavailable Joao Cote Consulting Unavailable Robina Salgado Consulting Unavailable Altaf Cruz Consulting Unavailable Jacquelin Blanco Consulting Unavailable Derrick Ames Consulting Unavailable August Berkowitz Consulting Unavailable Sagrario Damir Consulting Unavailable Campbell Carlos Consulting Unavailable Rip Larios Consulting Unavailable Nura Kahn Consulting Unavailable Jani Myers Consulting Unavailable Timmy Dickinson Consulting Unavailable Jean Claude Pereira Consulting Unavailable Doug Argueta Consulting Unavailable Jesus Alberto Lopez Consulting Unavailable Koram, Candis Monique Consulting Unavailable Talampas, Abby D Primary Care Unavailable Haydee, Ac Attending Unavailable Talampas, Abby D Primary Care Unavailable Haydee, [place] Attending Unavailable Talampas, Abby D Primary Care Unavailable Haydee, Ac Attending Unavailable Talampas, Abby D Primary Care Unavailable Priscila Goodwinbe Attending Unavailabl e Talampas, Abby D Primary Care Unavailable Loulou Goodwin Attending Unavailabl e Talampas, Abby D Primary Care Unavailable Loulou Goodwin Attending UnavailLuther Smith Attending Unavailable Talampas, Abby D Primary Care Unavailable Talampas, Abby D Primary Care Unavailable Doug Argueta Consulting Unavailable Doug Argueta Admitting Unavailable Alen Borjas Attending Unavailable Jesus Alberto Lopez Consulting Unavailable Candis Willson Consulting Unavailable Donnell Mendez Attending Unavailable Doug Argueta Referring Unavailable TereletsAlen esquivel Consulting Unavailable Donnell Mendez Referring Unavailable Talampas, Abby D Primary Care Unavailable Mostafavifar, Jennymad Attending Unavailable Talampas, Abby D Primary Care Unavailable Haydee, [place] Attending Unavailable Tereletsky, Alen Attending Unavailable Talampas, Abby D Primary Care Unavailable Haydee, [place] Attending Unavailable Talampas, Abby D Primary Care Unavailable Talampas, Abby D Referring Unavailable Haydee, Ac Attending Unavailable Talampas, Abby D Primary Care Unavailable Talampas, Abby D Referring Unavailable Gm Robledo Attending Unavailable Talampas, Abby D Primary Care Unavailable Talampas, Abby D Referring Unavailable Isacc LIU, Jacinda Attending Unavailable Talampas, Abby D Primary Care Unavailable Talampas, Abby D Referring Unavailable Haydee, Ac Attending Unavailable Talampas, Abby D Primary Care Unavailable Haydee, Maric[place] Attending Unavailable Talampas, Abby D Primary Care Unavailable Haydee, Ac Attending Unavailable Talampas, Abby D Primary Care Unavailable Haydee, Ac Attending Unavailable Doug Argueta Attending Unavailable Allergies Allergy Classification Reported Allergen(s) Allergy Type Date of Onset Reaction(s) Facility (20 sources) atorvastatin; Translations: [ATORVASTATIN] Drug Allergy 06-27-2016 [facility] Work Phone: (17 sources) atorvastatin Drug Allergy 06-27-2016 [facility] (1 source) atorvastatin Drug Allergy 03-05-2025 [facility] Repository Medications Current Medications Medication Drug Class(es) Dates Sig (Normalized) Sig (Original) amiodarone hydrochloride 200 mg oral tablet (3 sources) Antiarrhythmic Start: 03-03-2025 take 1 tablet by mouth twice daily, then take 1 tablet by mouth once daily Amiodarone 200 mg Tablet Active 200 mg PO TWICE A DAY 0 0 March 03, 2025 12:00am Continue 200 mg twice a day for 7 days, then reduce the dose of Cordarone to 200 mg daily thereafter Blood-Glucose Meter (3 sources) Start: 01-11-2025 End: 01-11-2026 Blood-Glucose Meter Indications: Type 2 diabetes mellitus with hyperglycemia, without long-term current use of insulin (HCC) 1 device as directed. For daily fasting am glucose checks. Not on insulin 1 each 01/11/2025 01/11/2026 Active Blood-Glucose Meter (Accu-Chek Guide Me Glucose Mtr) [facility] (3 sources) Start: 02-26-2025 Blood-Glucose Meter (Accu-Chek Guide Me Glucose Mtr) [facility] [place] [facility] February 26, 2025 12:00am diabetes calcium carbonate 1250 mg oral tablet (20 [...] oral tablet (20 sources) Vitamin D Start: 02-26-2025 Calcium Carbon ate-Vitamin D3 (Calcium 600 + D(3)) 600 mg-5 mcg (200 unit) tablet Active 1 {tbl} PO TWICE A DAY February 26, 2025 12:00am supplement Start: 01-09-2006 BRANNON-600 WITH V ITAMIN D 600 MG-200 UNIT TAB Take one(1) tablet two(2) times daily. 0 01/09/2006 Active Comment on above: Take one(1) tablet t wo(2) times daily. cephalexin 500 mg oral capsule (3 sources) Cephalosporin Antibacterial Start: 025 Cephalexin 500 mg Capsule Active 500 mg PO EVERY 6 HOURS 0 0 March 03, 2025 12:00am Continue cephalexin 500 mg every 6 hours x 1 week and then discontinue doxycycline monohydrate 100 mg oral tablet (1 source) Tetracycline-class Drug Start: 023 End: 023 take 1 tablet by mouth twice daily doxycycline monohydrate 100 mg tablet Take 1 tablet by mouth twice daily for 7 days. 14 tablet 0 07/31/2022 08/07/2022 Active Comment on above: Take 1 tablet by james twice daily for 7 days. empagliflozin 10 mg oral tablet (3 sources) Sodium-Glucose Cotransporter 2 Inhibitor Start: 06-16-2 025 empagliflozin (JARDIANCE) 10 mg tablet Indications: Type 2 diabetes mellitus with hyperglycemia, without long-term current use of insulin ([facility]) , Nonrheumatic aortic valve stenosis , Cardiac [...] by mouth two times a day. Active furosemide 40 mg oral tablet (3 sources) Loop Diuretic Start: 025 take 1 tablet by mouth once daily Furosemide (Lasix) 40 mg tablet Active 40 mg PO DAILY 1 March 03, 2025 12:00am glimepiride 4 mg oral tablet (20 sources) Sulfonylurea Start: 025 take 1 tablet by mouth twice daily Glimepiride 4 mg tablet Active 4 mg PO TWICE A DAY February 26, 2025 12:00am diabetes Start: 09-23-2024 End: 02-15-2025 take 1 tablet by mouth twice daily at mealtime glimepiride (AMARYL) 4 mg tablet Take 1 tablet by mouth two times a day with meals. 180 tablet 3 02/16/2025 Active Start: 06-02-2024 take 2 tablets by mo uth twice daily Glimepiride 2 mg tablet Active [...] on above: Take 1 tablet by james daily with breakfast. Take 2 tablets by mo [facility] daily with breakfast. Take 1 tablet by james th two times a day with meals. Glucosamine-Chondroit- Vit C-Mn (GLUCOSAMINE 1500 COMPLEX PO) (17 sources) Glucosamine-Calderon droit-Vi t C-Mn (GLUCOSAMINE 1500 COMPLEX PO) Take by mouth. Active 3 ml insulin lispro 100 unt/ml pen injector (5 sources) Insulin Analog Start: 03-03-2025 Insulin Lispro (Humalog Kwikpen Insulin) 100 unit/mL Insulin Pen Active 0 U SC BEFORE MEALS AND AT BEDTIME March 03, 2025 12:00am Please contact the information source for Protocol details. Start: 04-06-2024 End: 04-06-2024 inject 6 [IU] by subcutaneous injection once 6 Units, SubCUTAneous, Once, On Sat04/06/24 at 0930, For 1 dose, Preprocedure metFORMIN hydrochloride 500 mg oral tablet (20 sources) Biguanide Start: 07-31-2023 End: 09-29-2024 take 2 tablets by mouth twice daily Metformin 500 mg tablet Active 1000 mg PO TWICE A DAY June 02, 2024 5:10pm diabetes Start: 09-06-2021 End: 02-09-2025 take 1 tablet by mouth [...] on above: Take 1 tablet by james twice daily with meals. Take 1 tablet by james two times a day with meals. Take 2 tablets by mo [facility] two times a day with meals. 24 hr metoprolol succinate 25 mg extended release oral tablet (20 sources) beta-Adrenergic Liliya Start: 05-07-2024 End: 05-19-2024 take 1 tablet by mouth once daily metoprolol succinate XL (Toprol-XL) 50 MG 24 hr tablet Take 1 tablet (50 mg) by mouth daily. 90 tablet 3 05/19/2024 Active Start: 02-14-2021 Metoprolol Suc cinate 25 mg tablet extended release 24 hr Active 50 mg PO DAILY June 01, 2024 4:03pm bp Start: 02-14-2021 End: 05-07-2024 take 1 tablet [...] Succinate Di scontinued 25 MG PO DAILY 0 December 03, 2019 11:02am February 08, 2020 2:14pm Start: 09-21-2015 End: 12-03-2019 take 1 tablet by mouth once daily Metoprolol Succinate 50 mg tablet extended release 24 hr Discontinued 50 mg PO DAILY 90 3 April 29, 2019 10:28am November 20, 2019 10:29am Start: 09-16-2015 End: 09-21-2015 take 1 tablet by mouth once daily Metoprolol Succinate 25 MG tablet Discontinued 25 mg PO DAILY September 16, 2015 1:00am September 21, 2015 3:17pm Comment on above: Take 1 tablet by james once daily. (Dr. Hubbard) nystatin 100 unt/mg topical powder (3 sources) Polyene Antifungal Start: Nystatin 100,000 unit/gram Powder Active 1 NMA TOPICAL TWICE A DAY 0 0 March 03, 2025 12:00am Please contact the information source for Protocol details. pantoprazole 40 mg delayed release oral tablet (5 sources) Proton Pump Inhibitor Start: 5 take 1 tablet by mouth at bedtime Pantoprazole 40 mg Tablet,Delayed Release (Dr/Ec) Active 40 mg PO AT BEDTIME 0 0 March 03, 2025 12:00am Start: 04-08-2024 End: 04-08-2024 pantoprazole (ProtoNix) EC t ablet 40 mg semaglutide (OZEMPIC) 0.25 m g or 0.5 mg (2 mg/3 mL) pen (13 sources) Start: 03-12-2025 semaglutide (O ZEMPIC) 0.25 mg or 0.5 [...] Sig (Original) acetaminophen 325 mg oral tablet (13 sources) Start: 04-06-2024 End: 04-08-2024 take 1 tablet by mouth every four hours as needed for pain Start: 12-03-2019 End: 04-26-2020 Acetaminophen 500 MG tablet Discontinued 1000 mg PO EVERY 8 HOURS 100 December 03, 2019 12:00am April 26, 2020 [...] 5 mg PO TWICE A DAY 60 December 15, 2024 4:16pm February 08, 2025 10:52am aspirin 81 mg chewable tablet (20 sources) Platelet Aggregation Inhibitor, Nonsteroidal Anti-inflammatory Drug Start: 12-03-2019 End: 01-02-2020 take 1 tablet by mouth twice daily Aspirin 81 MG tablet,chewable Discontinued 81 mg PO TWICE A DAY 30 December 03, 2019 12:00am January 01, 2020 [...] on Sat04/07/24 at 0947, For 1 dose, EladioeddieShavonne: cabinet override benzonatate 100 mg oral capsule [...] As needed, low blood sugar, Starting on 9/9/24 at 1422, If blood glucose less than [...] directed. docusate sodium 50 mg / sennosides, half-way 8.6 mg oral tablet (11 sources) Start: 12-03-2019 End: 04-26-2020 Sennosides-Docusate Sodium 1 TABLET tablet Discontinued 2 {tbl} PO TWICE A DAY December 03, 2019 12:00am April 26, 2020 9:28am Take until first bowel movement, then as needed Start: 12-03-2019 End: 04-26-2020 Sennosides-Docusate Sodium D iscontinued 2 TABLET PO TWICE A DAY December 03, 2019 8:45am April 26, 2020 9:28am Take until first bowel movement, then as needed famotidine 20 mg oral tablet (11 sources) Histamine-2 Receptor Antagonist Start: 12-03-2019 End: [...] in 15 minutes x2 and notify provider. glucosamine sulfate 500 mg oral tablet (20 sources) Start: 02-26-2025 End: 03-03-2025 take 2 tablets by mouth once daily at mealtime Glucosamine Sulfate (Glucosamine) 500 mg tablet Discontinued 1000 mg PO DAILY February 26, 2025 12:00am March 03, 2025 3:27pm supplement administer with meals Start: 04-26-2020 take 1 tablet by james th once daily Glucosamine Hcl 1,500 mg tablet [...] on above: Take one(1) tablet d aily. 150 ml glucose 50 mg/ml injection (4 [...] insulin aspart, human 100 unt/ml pen injector (11 sources) Insulin Analog Start: 09-21-2015 End: 10-25-2017 [...] ml insulin detemir 100 unt/ml pen injector (11 sources) Insulin Analog Start: 09-21-2015 End: 10-25-2017 [...] On Sat04/07/24 at 0000, For 1 dose iopamidol (Isovue-370) 76 % injection 100 mL (2 sources) Start: 03-10-2024 End: 03-10-2024 take 100 mL intravenously once as needed 100 mL, IntraVENous, IMG once PRN, contrast, Starting on Sat03/10/24 at 1349, For 1 dose levoFLOXacin 500 mg oral tablet (11 sources) Quinolone Antimicrobial Start: 09-21-2015 End: 10-25-2017 [...] 2025 10:34am meloxicam 7.5 mg oral tablet (11 sources) Nonsteroidal Anti-inflammatory Drug Start: 12-03-2019 End: [...] Decolonization naproxen sodium 220 mg oral capsule (20 sources) Nonsteroidal Anti-inflammatory Drug Start: 11-20-2019 End: [...] mouth two times a day. 01/11/2025 Discontinued [place] 3 Fish OiL capsule (3 sources) Start: 02-26-2025 End: 03-03-2025 [place] 3 Fish OiL capsule Discontinued PO TWICE A DAY February 26, 2025 12:00am March 03, 2025 3:28pm supplment oxyCODONE hydrochloride 5 mg oral tablet (11 sources) Opioid Agonist Start: 12-03-2019 End: 12-06-2019 take 5-10 mg by mouth every four hours as needed for pain Oxycodone 5 MG tablet Discontinued 5 - 10 mg PO EVERY 4 HOURS NEEDED as needed for Pain Score 4-10/10 30 3 0 December 03, 2019 December 05, 2019 12:00am December 06, 2019 12:02am Presence of right artificial hip joint Pen Needle, Diabetic (2 sources) Start: 09-21-2015 End: 10-25-2017 Pen Needle, Diabetic Discontinued 1 EACH MC 5 TIMES DAILY 150 September 21, 2015 3:23pm October 25, 2017 3:24pm Start: 09-21-2015 End: 10-25-2017 Pen Needle, Diabetic Discont inued 1 EACH MC 5 TIMES DAILY 150 September 21, 2015 1:00am October 25, 2017 3:24pm Pen Needle, Diabetic 1 EACH needle (9 sources) Start: 09-21-2015 End: 10-25-2017 Pen Needle, [...] End: 04-06-2024 20 mEq, Oral, Once, On 04/06/24 at 1630, For 1 dose, Best given [...] prilosec). 30 tablet 3 03/26/2016 07/01/2020 Discontinued Semaglutide (3 sources) Start: 02-26-2025 End: 03-03-2025 Semaglutide (Ozempic) 0.25 mg or 0.5 mg (2 mg/3 mL) pen injector Discontinued 0.5 mg SC EVERY WEEK February 26, 2025 12:00am March 03, 2025 3:28pm diabetes 5 ml sodium chloride 9 mg/ml injection [...] dose, Preprocedure, Please send to EP lab ADD-[place] bag, Suspected Indication (Select all that apply): Surgical Prophylaxis Problems Active Problems Problem Classification Problem Date Documented Da te Episodic/Chronic Bacterial infection; unspecified site (8 sources) Bacteremia caused by Gram-positive bacteria; Translations: [Bacteremia] Onset: 5 02-26-2025 Episodic Cardiac dysrhythmias (20 sources) Atrial fibrillation with rapid ventricular response; Translations: [Unspecified atrial fibrillation] Onset: Chronic Comment on above: sepsis and DKA Cardiac dysrhythmias (20 sources) Tachycardia; Translations: [Tachycardia, unspecified] Onset: 5 Resolved: 4 04-16-2006 Episodic Coagulation and hemorrhagic disorders (9 sources) Thrombocytopenic disorder; Translations: [Thrombocytopenia, unspecified] Onset: 5 02-26-2025 Chronic Conduction disorders (20 sources) Right bundle branch block; Translations: [Unspecified right bundle-branch block] Onset: 4 04-07-2024 Chronic Diabetes mellitus with complications (20 sources) Hyperlipidemia; Translations: [Type 2 diabetes mellitus with other specified complication] Onset: 6 05-08-2017 Chronic Diabetes mellitus without complication (20 sources) Diabetes mellitus; Translations: [Type 2 diabetes mellitus without complications] Onset: 8 Chronic Disorders of lipid metabolism (2 sources) Hyperlipidemia, unspecified; Translations: [Hyperlipidemia associated with type 2 diabetes mellitus (HCC)] Onset: 7 Chronic E Codes: Adverse effects of medical drugs (9 sources) Adverse reaction to drug; Translations: [Adverse effect of unspecified drugs, medicaments and biological substances, initial encounter] Onset: 5 02-26-2025 Episodic Essential hypertension (20 sources) Essential hypertension; Translations: [Essential (primary) hypertension] Onset: 6 Chronic Fever of unknown origin (13 sources) Fever; Translations: [Fever, unspecified] Onset: 5 02-25-2025 Episodic Fluid and electrolyte disorders (12 sources) Lactic acidosis; Translations: [Lactic acidosis] 02-25-2025 Episodic Heart valve disorders (20 sources) Aortic valve calcification; Translations: [Nonrheumatic aortic valve disorder, unspecified] Onset: 2 Chronic Comment on above: TAVR 04/06/2024: Ryan odell KATHARINE 3 transcatheter bioprosthetic aortic valve with a size of 23mm Immunizations and screening for infectious disease (3 sources) Vaccination needed; Translations: [Encounter for immunization] Episodic Malaise and fatigue (11 sources) Fatigue; Translations: [Other fatigue] 11-03-2020 Episodic Osteoarthritis (20 sources) Degenerative joint disease involving multiple joints; Translations: [Polyosteoarthritis, unspecified] Onset: 8 Resolved: 4 05-12-2018 Chronic Other aftercare (12 sources) Long-term current use of anticoagulant; Translations: [MCC (current) use of 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] 02-25-2025 Episodic Other aftercare (2 sources) Anticoagulant effect; Translations: [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] 03-05-2025 Episodic Other aftercare (1 source) MCC (current) use of 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; Translations: [MCC (current) use of 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] Onset: 5 Episodic Other connective tissue disease (20 sources) History of repair of hip joint; Translations: [Presence of right artificial hip joint] Onset: 0 12-23-2019 Chronic Other connective tissue disease (1 source) Plantar fasciitis of right foot; Translations: [Plantar fascial fibromatosis] Episodic Other connective tissue disease (1 source) Falls; Translations: [Repeated falls] 02-25-2024 Episodic Other lower respiratory disease (2 sources) Cough; Translations: [Acute cough] Episodic Other lower respiratory disease (1 source) Cough; Translations: [Acute cough] 07-31-2022 Episodic Other lower respiratory disease (1 source) Shortness of breath; Translations: [Shortness of breath] Onset: Episodic Other nervous system disorders (20 sources) Walking difficulty due to lower leg; Translations: [Difficulty in walking, not elsewhere classified] 11-28-2018 Chronic Other nervous system disorders (15 sources) Difficulty walking; Translations: [Difficulty in walking, not elsewhere classified] 11-28-2018 Chronic Other nervous system disorders (8 sources) Metabolic encephalopathy; Translations: [Metabolic encephalopathy] 02-26-2025 Chronic Other nervous system disorders (8 sources) Disorder of brain; Translations: [Encephalopathy, unspecified] 02-25-2025 Chronic Other nervous system disorders (1 source) Metabolic encephalopathy; Translations: [Metabolic encephalopathy] Onset: Chronic Other nervous system disorders (1 source) Abnormal gait; Translations: [Unspecified abnormalities of gait and mobility] 02-25-2024 Episodic Other nutritional; endocrine; and metabolic disorders (16 sources) Body mass index 40+ - severely obese; Translations: [Morbid (severe) obesity due to excess calories] 09-04-2021 Chronic Other nutritional; endocrine; and metabolic disorders (10 sources) Obesity; Translations: [Obesity, unspecified] 02-12-2022 Chronic Other nutritional; endocrine; and metabolic disorders (1 source) Obesity, unspecified; Translations: [Obesity, unspecified] Chronic Other nutritional; endocrine; and metabolic disorders (20 sources) Severe obesity; Translations: [Morbid (severe) obesity due to excess calories] 12-17-2022 Chronic Other nutritional; endocrine; and metabolic disorders (1 source) Morbid (severe) obesity due to excess calories; Translations: [Morbid (severe) obesity due to excess calories] Onset: 5 Chronic Other nutritional; endocrine; and metabolic disorders (1 source) Body mass index (BMI) 45.0-49.9, adult; Translations: [Body mass index [BMI] 45.0-49.9, adult] Onset: 5 Chronic Phlebitis; thrombophlebitis and thromboembolism (2 sources) Acute deep venous thrombosis of upper extremity; Translations: [Acute embolism and thrombosis of deep veins of left upper extremity] 03-05-2025 Episodic Residual codes; unclassified (18 sources) Daytime somnolence; Translations: [Other hypersomnia] Onset: 4 03-10-2024 Chronic Residual codes; unclassified (2 sources) Other hypersomnia; Translations: [Other hypersomnia] Onset: 4 Chronic Residual codes; unclassified (1 source) Edema of the upper extremity ; Translations: [Localized edema] 09-29-2024 Episodic Septicemia (except in labor) (16 sources) Sepsis; Translations: [Sepsis, unspecified organism] Onset: 5 02-26-2025 Episodic Shock (1 source) Severe sepsis with septic shock; Translations: [Severe sepsis with septic shock] Onset: 5 Episodic Spondylosis; intervertebral disc disorders; other back problems (2 sources) Sciatica; Translations: [Sciatica, unspecified side] Onset: 5 01-11-2025 Episodic Unclassified (3 sources) In 3 weeks-call office for appointment Unclassified (2 sources) Cardiac Valve Problem; Translations: [Cardiac Valve Problem] Onset: 4 Unclassified (2 sources) New Patient; Translations: [New Patient] Onset: 4 Unclassified (1 source) Acidosis, unspecified; Translations: [Acidosis, unspecified] Onset: 5 Past or Other Problems Problem Classification Problem Date Documented Date Episodic/Chronic Conditions associated with dizziness or vertigo (20 sources) Dizziness; Translations: [Dizziness and giddiness] Onset: 03-10-2024 03-10-2024 Episodic Other aftercare (18 sources) Polypharmacy ; Translations: [Other senior living (current) drug therapy] Onset: 03-10-2024 03-10-2024 Episodic Other aftercare (1 source) Encounter for therapeutic drug level monitoring; Translations: [Encounter for therapeutic drug monitoring] Onset: 02-19-2024 Episodic Other aftercare (2 sources) Other senior living (current) drug therapy; Translations: [Other director long term care (current) drug therapy] Onset: 03-10-2024 Episodic Other connective tissue disease (1 source) [...] behavioral disorders] Onset: 02-25-2024 Episodic Viral infection (11 sources) COVID-19; Translations: [Severe acute respiratory syndrome coronavirus 2 (SARS-CoV-2) detected] Onset: 05-19-2020 11-03-2020 Episodic Results Test Name Value Interpretation Reference Range Facility Absolute lymphocyte countOrd ered By: Loulou Ellison on 03-08-2025 Lymphocytes Auto (Unsp spec) [#/Vol] 2.83 10*3/uL 0.83-4.51 [facility] Absolute neutrophil countOrd ered By: Loulou Ellison on 03-08-2025 Neutrophils (Bld) [#/Vol] 7.7 10*3/uL 2.0-7.7 [facility] Anion gap in Serum or Plasma Ordered By: Loulou Kasitirsocherri on 03-08-2025 Anion gap [Moles/Vol] 11 mmol/L 5-15 [facility] Automated lymphocyte count a s percentage of total leukocytesOrdered By: Loulou Kasitirsocherri on 03-08-2025 Lymphocytes/100 WBC Auto (Unsp spec) 22.9 % 19-41 [facility] BUN/creatinine ratioOrdered By: Loulou Landcherri on 03-08-2025 Urea nitrogen/Creatinine [Mass ratio] 21.6 mg/mg High 10-20 [facility] Basophil percentageOrdered B y: Loulou Ellison on 03-08-2025 Basophils/100 WBC (Bld) 0.9 % 0-1 [facility] Bilirubin, totalOrdered By: Loulou Ellison on 03-08-2025 Bilirubin [Mass/Vol] 0.57 mg/dL 0.00-1.30 [facility] Carbon dioxide, total [Moles /volume] in Central venous bloodOrdered By: Loulou Kasitirsocherri on 03-08-2025 CO2 [Moles/Vol] 25.2 mmol/L 21.0-32.0 [facility] Chloride assayOrdered By: ginette Landcherri on 03-08-2025 Chloride [Moles/Vol] 97 mmol/L Low 98-108 [facility] Eosinophil percentageOrdered By: ginette Lande on 03-08-2025 Eosinophils/100 WBC (Bld) 3.2 % 0-5 [facility] Erythrocyte distribution wid th ratioOrdered By: tammieelmo Kasitirsocherri on 03-08-2025 Erythrocyte distribution width (RBC) [Ratio] 13.0 % 11.6-14.6 [facility] Erythrocyte distribution wid th standard deviationOrdered By: Loulou Ellison on 03-08-2025 Erythrocyte distribution width (RBC) [Ratio] 44.7 fl High 35.1-43.9 [facility] Glomerular filtration rate ( GFR) estimation/1.73 sq m using serum, plasma, or whole bOrdered By: Loulou Ellison on 03-08-2025 GFR/1.73 sq M.predicted among non-blacks MDRD (S/P/Bld) [Vol rate/Area] 82 mL/min/{1.73_m2} >60 [facility] Comment on above: mL/min/1.73m2 CKD-EP I Creatinine Equation (2020) Hematocrit Auto (Bld) [Volum e fraction]Ordered By: Loulou Ellison on 03-08-2025 Hematocrit (Bld) [Volume fraction] 40.0 % 37-47 [facility] Hemoglobin measurementOrdere d By: Loulou Ellison on 03-08-2025 Hemoglobin (Bld) [Mass/Vol] 12.9 g/dL 12.0-15.0 [facility] Immature granulocytes/100 WB C Auto (Bld)Ordered By: Loulou Ellison 03-08-2025 Immature granulocytes/100 WBC (Bld) 0.800 % 0.0-0.9 [facility] Comment on above: IG% - Immature Granu locytes (promyelocytes, myelocytes and metamyelocytes) > 1% indicates that a LEFT SHIFT is Present. Laboratory - Chemistry and C hemistry - challengeOrdered By: Loulou Ellison on 03-08-2025 AST [Catalytic activity/Vol] 20 U/L <32 [facility] MCV (mean corpuscular volume ) determinationOrdered By: Loulou Ellison 03-08-2025 MCV (RBC) [Entitic vol] 93.7 fL 81-99 [facility] Mean corpuscular hemoglobin (MCH) determinationOrdered By: Loulou Ellison 03-08-2025 MCH (RBC) [Entitic mass] 30.2 pg 27.0-32.0 [facility] Mean corpuscular hemoglobin concentration (MCHC) determinationOrdered By: Loulou Ellison on 03-08-2025 MCHC (RBC) [Mass/Vol] 32.3 g/dL 32-36 [facility] Mean platelet volume determi nationOrdered By: Loulou Ellison on 03-08-2025 Platelet mean volume (Bld) [Entitic vol] 11.8 fL 6.2-12.0 [facility] Monocyte percentageOrdered B y: Loulou Ellison on 03-08-2025 Monocytes/100 WBC (Bld) 10.2 % High 0-10 [facility] Neutrophil percentageOrdered By: Loulou Ellison on 03-08-2025 Neutrophils/100 WBC (Bld) 62.0 % 47-70 [facility] Nucleated red blood cell per centageOrdered By: Loulou Ellison on 03-08-2025 Nucleated RBC/100 WBC (Bld) [Ratio] 0 % 0-5 [facility] Platelet countOrdered By: Ami Ellison on 03-08-2025 Platelets (Bld) [#/Vol] 258 10*3/uL 150-450 [facility] Potassium measurement (mass/ volume)Ordered By: Loulou Ellison on 03-08-2025 Potassium (Unsp spec) [Mass/Vol] 3.9 mmol/L 3.3-5.1 [facility] RBC Auto (Bld) [#/Vol]Ordere d By: Loulou Ellison on 03-08-2025 RBC (Bld) [#/Vol] 4.27 10*6/uL 4.2-5.4 [facility] Serum creatinine measurement (mass/volume)Ordered By: Loulou Ellison on 03-08-2025 Creatinine [Mass/Vol] 0.76 mg/dL 0.70-1.20 [facility] Serum globulin measurementOr dered By: Loulou Ellison on 03-08-2025 Globulin (S) [Mass/Vol] 3.6 g/dL 2.2-4.2 [facility] Serum glucose measurement (m ass/volume)Ordered By: Loulou Ellison on 03-08-2025 Glucose [Mass/Vol] 192 mg/dL High 70-99 [facility] Serum or plasma alanine martinez otransferase (ALT) measurementOrdered By: Loulou Ellison on 03-08-2025 ALT [Catalytic activity/Vol] 16 U/L <35 [facility] Serum or plasma albumin wendi urement (mass/volume)Ordered By: Loulou Ellison on 03-08-2025 Albumin [Mass/Vol] 3.1 g/dL Low 3.4-4.8 [facility] Serum or plasma albumin/glob ulin mass ratioOrdered By: Loulou Ellison on 03-08-2025 Albumin/Globulin [Mass ratio] 0.9 {ratio} 0.9-2.4 [facility] Serum or plasma alkaline vicente sphatase measurementOrdered By: Loulou Ellison on 03-08-2025 ALP [Catalytic activity/Vol] 60 U/L 35-104 [facility] Serum or plasma calcium wendi urement (mass/volume)Ordered By: Loulou Ellison on 03-08-2025 Calcium [Mass/Vol] 9.3 mg/dL 7.6-11.0 [facility] Serum or plasma urea nitroge n measurement (mass/volume)Ordered By: Loulou Ellison on 03-08-2025 Urea nitrogen [Mass/Vol] 16 mg/dL 4- [facility] Sodium levelOrdered By: Daina aminnarinder Terra on 03-08-2025 Sodium [Moles/Vol] 134 mmol/L 133-145 [facility] Total proteinOrdered By: Chet Ellison on 03-08-2025 Protein [Mass/Vol] 6.6 g/dL 5.9-8.4 [facility] White blood cell (WBC) count Ordered By: Loulou Ellison on 03-08-2025 WBC (Bld) [#/Vol] 12.4 10*3/uL High 4.4-11.0 [facility] Basic Metabolic Profile (BMP )on 03-07-2025 BUN Normal - [facility] Comment on above: Result Comment: Canc elled via OM: Order cancelled - Patient discharged Performed By: #### L 100.0100, L500.2500 ####[facility] [address] [place], [address] BUN/CRE Normal 10-20 [facility] Comment on above: Result Comment: Canc elled via OM: Order cancelled - Patient discharged Performed By: #### L 100.0100, L500.2500 ####[facility] [address] [place], [address] Calcium Normal 7.6-11.0 [facility] Comment on above: Result Comment: Canc elled via OM: Order cancelled - Patient discharged Performed By: #### L 100.0100, L500.2500 ####[facility] [address] [place], [address] CL Normal 98-108 [facility] Comment on above: Result Comment: Canc elled via OM: Order cancelled - Patient discharged Performed By: #### L 100.0100, L500.2500 ####[facility] [address] [place], [address] CO2 Normal 21.0-32.0 [facility] Comment on above: Result Comment: Canc elled via OM: Order cancelled - Patient discharged Performed By: #### L 100.0100, L500.2500 ####[facility] [address] [place], [address] CREAT,SERUM Normal 0.70-1.20 [facility] Comment on above: Result Comment: Canc elled via OM: Order cancelled - Patient discharged Performed By: #### L 100.0100, L500.2500 ####[facility] [address] [place], [address] eGFR Normal >60 [facility] Comment on above: Result Comment: Canc elled via OM: Order cancelled - Patient discharged Performed By: #### L 100.0100, L500.2500 ####[facility] [address] [place], [address] GAP Normal 5-15 [facility] Comment on above: Result Comment: Canc elled via OM: Order cancelled - Patient discharged Performed By: #### L 100.0100, L500.2500 ####[facility] [address] [place], [address] GLU Normal 70-99 [facility] Comment on above: Result Comment: Canc elled via OM: Order cancelled - Patient discharged Performed By: #### L 100.0100, L500.2500 ####[facility] [address] [place], [address] Potassium Normal 3.3-5.1 [facility] Comment on above: Result Comment: Canc elled via OM: Order cancelled - Patient discharged Performed By: #### L 100.0100, L500.2500 ####[facility] [address] [place], [address] Basic Metabolic Profile (BMP) Normal 133-145 [facility] Comment on above: Result Comment: Canc elled via OM: Order cancelled - Patient discharged Performed By: #### L 100.0100, L500.2500 ####[facility] [address] [place], [address] CBC W/Diff, Automatedon 08- 0 Absolute Neut Normal 2.0-7.7 [facility] Comment on above: Result Comment: Canc elled via OM: Order cancelled - Patient discharged Performed By: #### L 100.0100, L500.2500 ####[facility] [address] [place], [address] HCT Normal 37-47 [facility] Comment on above: Result Comment: Canc elled via OM: Order cancelled - Patient discharged Performed By: #### L 100.0100, L500.2500 ####[facility] [address] [place], [address] HGB Normal 12.0-15.0 [facility] Comment on above: Result Comment: Canc elled via OM: Order cancelled - Patient discharged Performed By: #### L 100.0100, L500.2500 ####[facility] [address] [place], [address] MCH Normal 27.0-32.0 [facility] Comment on above: Result Comment: Canc elled via OM: Order cancelled - Patient discharged Performed By: #### L 100.0100, L500.2500 ####[facility] [address] [place], [address] MCHC Normal 32-36 [facility] Comment on above: Result Comment: Canc elled via OM: Order cancelled - Patient discharged Performed By: #### L 100.0100, L500.2500 ####[facility] [address] [place], [address] MCV Normal 81-99 [facility] Comment on above: Result Comment: Canc elled via OM: Order cancelled - Patient discharged Performed By: #### L 100.0100, L500.2500 ####[facility] [address] [place], [address] NEUT% Normal 47-70 [facility] Comment on above: Result Comment: Canc elled via OM: Order cancelled - Patient discharged Performed By: #### L 100.0100, L500.2500 ####[facility] [address] [place], [address] PLT Normal 150-450 [facility] Comment on above: Result Comment: Canc elled via OM: Order cancelled - Patient discharged Performed By: #### L 100.0100, L500.2500 ####[facility] [address] [place], [address] RBC Normal 4.2-5.4 [facility] Comment on above: Result Comment: Canc elled via OM: Order cancelled - Patient discharged Performed By: #### L 100.0100, L500.2500 ####[facility] [address] [place], [address] RDW CV Normal 11.6-14.6 [facility] Comment on above: Result Comment: Canc elled via OM: Order cancelled - Patient discharged Performed By: #### L 100.0100, L500.2500 ####[facility] [address] [place], [address] RDW SD Normal 35.1-43.9 [facility] Comment on above: Result Comment: Canc elled via OM: Order cancelled - Patient discharged Performed By: #### L 100.0100, L500.2500 ####[facility] [address] [place], [address] WBC Normal 4.4-11.0 [facility] Comment on above: Result Comment: Canc elled via OM: Order cancelled - Patient discharged Performed By: #### L 100.0100, L500.2500 ####[facility] [address] [place], [address] Basic Metabolic Profile (BMP )on 03-06-2025 BUN Normal 4-19 [facility] Comment on above: Result Comment: Canc elled via OM: Order cancelled - Patient discharged Performed By: #### L 500.2500, L100.0100 ####[facility] [address] [place], [address] BUN/CRE Normal 10-20 [facility] Comment on above: Result Comment: Canc elled via OM: Order cancelled - Patient discharged Performed By: #### L 500.2500, L100.0100 ####[facility] [address] [place], [address] Calcium Normal 7.6-11.0 [facility] Comment on above: Result Comment: Canc elled via OM: Order cancelled - Patient discharged Performed By: #### L 500.2500, L100.0100 ####[facility] [address] [place], [address] CL Normal 98-108 [facility] Comment on above: Result Comment: Canc elled via OM: Order cancelled - Patient discharged Performed By: #### L 500.2500, L100.0100 ####[facility] [address] [place], [address] CO2 Normal 21.0-32.0 [facility] Comment on above: Result Comment: Canc elled via OM: Order cancelled - Patient discharged Performed By: #### L 500.2500, L100.0100 ####[facility] [address] [place], [address] CREAT,SERUM Normal 0.70-1.20 [facility] Comment on above: Result Comment: Canc elled via OM: Order cancelled - Patient discharged Performed By: #### L 500.2500, L100.0100 ####[facility] [address] [place], [address] eGFR Normal >60 [facility] Comment on above: Result Comment: Canc elled via OM: Order cancelled - Patient discharged Performed By: #### L 500.2500, L100.0100 ####[facility] [address] [place], [address] GAP Normal 5-15 [facility] Comment on above: Result Comment: Canc elled via OM: Order cancelled - Patient discharged Performed By: #### L 500.2500, L100.0100 ####[facility] [address] [place], [address] GLU Normal 70-99 [facility] Comment on above: Result Comment: Canc elled via OM: Order cancelled - Patient discharged Performed By: #### L 500.2500, L100.0100 ####[facility] [address] [place], [address] Potassium Normal 3.3-5.1 [facility] Comment on above: Result Comment: Canc elled via OM: Order cancelled - Patient discharged Performed By: #### L 500.2500, L100.0100 ####[facility] [address] [place], [address] Basic Metabolic Profile (BMP) Normal 133-145 [facility] Comment on above: Result Comment: Canc elled via OM: Order cancelled - Patient discharged Performed By: #### L 500.2500, L100.0100 ####[facility] [address] [place], [address] CBC W/Diff, Automatedon 08-0 -2024 Absolute Neut Normal 2.0-7.7 [facility] Comment on above: Result Comment: Canc elled via OM: Order cancelled - Patient discharged Performed By: #### L 500.2500, L100.0100 ####[facility] [address] [place], [address] HCT Normal 37-47 [facility] Comment on above: Result Comment: Canc elled via OM: Order cancelled - Patient discharged Performed By: #### L 500.2500, L100.0100 ####[facility] [address] [place], [address] HGB Normal 12.0-15.0 [facility] Comment on above: Result Comment: Canc elled via OM: Order cancelled - Patient discharged Performed By: #### L 500.2500, L100.0100 ####[facility] [address] [place], [address] MCH Normal 27.0-32.0 [facility] Comment on above: Result Comment: Canc elled via OM: Order cancelled - Patient discharged Performed By: #### L 500.2500, L100.0100 ####[facility] [address] [place], [address] MCHC Normal 32-36 [facility] Comment on above: Result Comment: Canc elled via OM: Order cancelled - Patient discharged Performed By: #### L 500.2500, L100.0100 ####[facility] [address] [place], [address] MCV Normal 81-99 [facility] Comment on above: Result Comment: Canc elled via OM: Order cancelled - Patient discharged Performed By: #### L 500.2500, L100.0100 ####[facility] [address] [place], [address] NEUT% Normal 47-70 [facility] Comment on above: Result Comment: Canc elled via OM: Order cancelled - Patient discharged Performed By: #### L 500.2500, L100.0100 ####[facility] [address] [place], [address] PLT Normal 150-450 [facility] Comment on above: Result Comment: Canc elled via OM: Order cancelled - Patient discharged Performed By: #### L 500.2500, L100.0100 ####[facility] [address] [place], [address] RBC Normal 4.2-5.4 [facility] Comment on above: Result Comment: Canc elled via OM: Order cancelled - Patient discharged Performed By: #### L 500.2500, L100.0100 ####[facility] [address] [place], [address] RDW CV Normal 11.6-14.6 [facility] Comment on above: Result Comment: Canc elled via OM: Order cancelled - Patient discharged Performed By: #### L 500.2500, L100.0100 ####[facility] [address] [place], [address] RDW SD Normal 35.1-43.9 [facility] Comment on above: Result Comment: Canc elled via OM: Order cancelled - Patient discharged Performed By: #### L 500.2500, L100.0100 ####[facility] [address] [place], [address] WBC Normal 4.4-11.0 [facility] Comment on above: Result Comment: Canc elled via OM: Order cancelled - Patient discharged Performed By: #### L 500.2500, L100.0100 ####[facility] [address] [place], [address] Culture, Blood (WB)on 2024 CUB No growth in 5 days. Normal [facility] Comment on above: Performed By: #### M 200.1000 ####[facility] [address] [place], [address] 12 Lead EKGon 03-05-2025 12 Lead EKG Normal [facility] Basic Metabolic Profile (BMP )on 03-05-2025 BUN Normal 4-19 [facility] Comment on above: Result Comment: Canc elled via OM: Order cancelled - Patient discharged Performed By: #### L 500.2500, L100.0100 ####[facility] [address] [place], [address] BUN/CRE Normal 10-20 [facility] Comment on above: Result Comment: Canc elled via OM: Order cancelled - Patient discharged Performed By: #### L 500.2500, L100.0100 ####[facility] [address] [place], [address] Calcium Normal 7.6-11.0 [facility] Comment on above: Result Comment: Canc elled via OM: Order cancelled - Patient discharged Performed By: #### L 500.2500, L100.0100 ####[facility] [address] [place], [address] CL Normal 98-108 [facility] Comment on above: Result Comment: Canc elled via OM: Order cancelled - Patient discharged Performed By: #### L 500.2500, L100.0100 ####[facility] [address] [place], [address] CO2 Normal 21.0-32.0 [facility] Comment on above: Result Comment: Canc elled via OM: Order cancelled - Patient discharged Performed By: #### L 500.2500, L100.0100 ####[facility] [address] [place], [address] CREAT,SERUM Normal 0.70-1.20 [facility] Comment on above: Result Comment: Canc elled via OM: Order cancelled - Patient discharged Performed By: #### L 500.2500, L100.0100 ####[facility] [address] [place], [address] eGFR Normal >60 [facility] Comment on above: Result Comment: Canc elled via OM: Order cancelled - Patient discharged Performed By: #### L 500.2500, L100.0100 ####[facility] [address] [place], [address] GAP Normal 5-15 [facility] Comment on above: Result Comment: Canc elled via OM: Order cancelled - Patient discharged Performed By: #### L 500.2500, L100.0100 ####[facility] [address] [place], [address] GLU Normal 70-99 [facility] Comment on above: Result Comment: Canc elled via OM: Order cancelled - Patient discharged Performed By: #### L 500.2500, L100.0100 ####[facility] [address] [place], [address] Potassium Normal 3.3-5.1 [facility] Comment on above: Result Comment: Canc elled via OM: Order cancelled - Patient discharged Performed By: #### L 500.2500, L100.0100 ####[facility] [address] [place], [address] Basic Metabolic Profile (BMP) Normal 133-145 [facility] Comment on above: Result Comment: Canc elled via OM: Order cancelled - Patient discharged Performed By: #### L 500.2500, L100.0100 ####[facility] [address] [place], [address] CBC W/Diff, Automatedon 08-0 8-2024 Absolute Neut Normal 2.0-7.7 [facility] Comment on above: Result Comment: Canc elled via OM: Order cancelled - Patient discharged Performed By: #### L 500.2500, L100.0100 ####[facility] [address] [place], [address] HCT Normal 37-47 [facility] Comment on above: Result Comment: Canc elled via OM: Order cancelled - Patient discharged Performed By: #### L 500.2500, L100.0100 ####[facility] [address] [place], [address] HGB Normal 12.0-15.0 [facility] Comment on above: Result Comment: Canc elled via OM: Order cancelled - Patient discharged Performed By: #### L 500.2500, L100.0100 ####[facility] [address] [place], [address] MCH Normal 27.0-32.0 [facility] Comment on above: Result Comment: Canc elled via OM: Order cancelled - Patient discharged Performed By: #### L 500.2500, L100.0100 ####[facility] [address] [place], [address] MCHC Normal 32-36 [facility] Comment on above: Result Comment: Canc elled via OM: Order cancelled - Patient discharged Performed By: #### L 500.2500, L100.0100 ####[facility] [address] [place], [address] MCV Normal 81-99 [facility] Comment on above: Result Comment: Canc elled via OM: Order cancelled - Patient discharged Performed By: #### L 500.2500, L100.0100 ####[facility] [address] [place], [address] NEUT% Normal 47-70 [facility] Comment on above: Result Comment: Canc elled via OM: Order cancelled - Patient discharged Performed By: #### L 500.2500, L100.0100 ####[facility] [address] [place], [address] PLT Normal 150-450 [facility] Comment on above: Result Comment: Canc elled via OM: Order cancelled - Patient discharged Performed By: #### L 500.2500, L100.0100 ####[facility] [address] [place], [address] RBC Normal 4.2-5.4 [facility] Comment on above: Result Comment: Canc elled via OM: Order cancelled - Patient discharged Performed By: #### L 500.2500, L100.0100 ####[facility] [address] [place], [address] RDW CV Normal 11.6-14.6 [facility] Comment on above: Result Comment: Canc elled via OM: Order cancelled - Patient discharged Performed By: #### L 500.2500, L100.0100 ####[facility] [address] [place], [address] RDW SD Normal 35.1-43.9 [facility] Comment on above: Result Comment: Canc elled via OM: Order cancelled - Patient discharged Performed By: #### L 500.2500, L100.0100 ####[facility] [address] [place], [address] WBC Normal 4.4-11.0 [facility] Comment on above: Result Comment: Canc elled via OM: Order cancelled - Patient discharged Performed By: #### L 500.2500, L100.0100 ####[facility] [address] [place], [address] CTA Chest W/WO Contraston CTA Chest W/WO Contrast Normal [facility] Emergency Department Summary on 03-05-2025 Emergency Department Summary Normal [facility] Absolute lymphocyte countOrd ered By: Candis Willson on 03-04-2025 Lymphocytes Auto (Unsp spec) [#/Vol] 2.25 10*3/uL 0.83-4.51 [facility] Absolute neutrophil countOrd ered By: Candis Willson on 03-04-2025 Neutrophils (Bld) [#/Vol] 5.0 10*3/uL 2.0-7.7 [facility] Anion gap in Serum or Plasma Ordered By: Candis Willson on 03-04-2025 Anion gap [Moles/Vol] 12 mmol/L 5-15 [facility] Automated lymphocyte count a s percentage of total leukocytesOrdered By: Candis Willson on 03-04-2025 Lymphocytes/100 WBC Auto (Unsp spec) 25.0 % 19-41 [facility] BUN/creatinine ratioOrdered By: Candis Willson on 03-04-2025 Urea nitrogen/Creatinine [Mass ratio] 24.7 mg/mg High 10-20 [facility] Basic Metabolic Profile (BMP )on 03-04-2025 BUN/CRE 24.7 RATIO High - [facility] Comment on above: Performed By: #### L 100.0100, L500.2500 ####[facility] [address] [place], [address] Calcium [Mass/Vol] 8.6 mg/dL Normal 7.6-11.0 [facility] Comment on above: Performed By: #### L 100.0100, L500.2500 ####[facility] [address] [place], [address] Chloride [Moles/Vol] 100 mmol/L Normal 98-108 [facility] Comment on above: Performed By: #### L 100.0100, L500.2500 ####[facility] [address] [place], [address] CO2 [Moles/Vol] 24.8 mmol/L Normal 21.0-32.0 [facility] Comment on above: Performed By: #### L 100.0100, L500.2500 ####[facility] [address] [place], [address] Creatinine [Mass/Vol] 0.73 mg/dL Normal 0.70-1.20 [facility] Comment on above: Performed By: #### L 100.0100, L500.2500 ####[facility] [address] [place], [address] ECRCL 68.85 ml/min Normal 50-250 [facility] Comment on above: Performed By: #### L 100.0100, L500.2500 ####[facility] [address] [place], [address] GAP 12 Normal 5-15 [facility] Comment on above: Performed By: #### L 100.0100, L500.2500 ####[facility] [address] [place], [address] GFR/1.73 sq M.predicted among non-blacks MDRD (S/P/Bld) [Vol rate/Area] 85 mL/min/{1.73_m2} Normal >60 [facility] Comment on above: Result Comment: mL/m in/1.73m2 CKD-EPI Creatinine Equation (2020) Performed By: #### L 100.0100, L500.2500 ####[facility] [address] [place], [address] Glucose [Mass/Vol] 286 mg/dL High 70-99 [facility] Comment on above: Performed By: #### L 100.0100, L500.2500 ####[facility] [address] [place], [address] Potassium [Moles/Vol] 3.4 mmol/L Normal 3.3-5.1 [facility] Comment on above: Performed By: #### L 100.0100, L500.2500 ####[facility] [address] [place], [address] Sodium [Moles/Vol] 137 mmol/L Normal 133-145 [facility] Comment on above: Performed By: #### L 100.0100, L500.2500 ####[facility] [address] [place], [address] Urea nitrogen [Mass/Vol] 18 mg/dL Normal 4-19 [facility] Comment on above: Performed By: #### L 100.0100, L500.2500 ####[facility] [address] [place], [address] Basophil percentageOrdered B y: Candis Willson on 03-04-2025 Basophils/100 WBC (Bld) 1.1 % High 0-1 [facility] Bedside Glucoseon 03-04-2025 FINGERSTICK GLU 282 mg/dL High 74-106 [facility] Comment on above: Result Comment: PA MONTOYA OF PATIENT CARE PER NURSING PROTOCOL Performed By: #### L 501.080 ####[facility] [address] [place], [address] CBC W/Diff, Automatedon Absolute Lymph 2.25 X10 3/uL Normal 0.83-4.51 [facility] Comment on above: Performed By: #### L 100.0100, L500.2500 ####[facility] [address] [place], [address] Absolute Neut 5.0 X10 3/uL Normal 2.0-7.7 [facility] Comment on above: Performed By: #### L 100.0100, L500.2500 ####[facility] [address] [place], [address] Basophils/100 WBC (Bld) 1.1 % High 0-1 [facility] Comment on above: Performed By: #### L 100.0100, L500.2500 ####[facility] [address] [place], [address] Eosinophils/100 WBC (Bld) 3.7 % Normal 0-5 [facility] Comment on above: Performed By: #### L 100.0100, L500.2500 ####[facility] [address] [place], [address] Erythrocyte distribution width (RBC) [Ratio] 13.4 % Normal 11.6-14.6 [facility] Comment on above: Performed By: #### L 100.0100, L500.2500 ####[facility] [address] [place], [address] Hematocrit (Bld) [Volume fraction] 39.2 % Normal 37-47 [facility] Comment on above: Performed By: #### L 100.0100, L500.2500 ####[facility] [address] [place], [address] Hemoglobin (Bld) [Mass/Vol] 13.2 g/dL Normal 12.0-15.0 [facility] Comment on above: Performed By: #### L 100.0100, L500.2500 ####[facility] [address] [place], [address] IG% 3.400 High 0.0-0.9 [facility] Comment on above: Result Comment: IG% - Immature Granulocytes (promyelocytes, myelocytes andmetamyelocytes) > 1% indicates that a LEFT SHIFT is Present. Performed By: #### L 100.0100, L500.2500 ####[facility] [address] [place], [address] Lymphocytes/100 WBC (Bld) 25.0 % Normal 19-41 [facility] Comment on above: Performed By: #### L 100.0100, L500.2500 ####[facility] [address] [place], [address] MCH (RBC) [Entitic mass] 30.8 pg Normal 27.0-32.0 [facility] Comment on above: Performed By: #### L 100.0100, L500.2500 ####[facility] [address] [place], [address] MCHC (RBC) [Mass/Vol] 33.7 g/dL Normal 32-36 [facility] Comment on above: Performed By: #### L 100.0100, L500.2500 ####[facility] [address] [place], [address] MCV (RBC) [Entitic vol] 91.4 fL Normal 81-99 [facility] Comment on above: Performed By: #### L 100.0100, L500.2500 ####[facility] [address] [place], [address] Monocytes/100 WBC (Bld) 11.7 % High 0-10 [facility] Comment on above: Performed By: #### L 100.0100, L500.2500 ####[facility] [address] [place], [address] Neutrophils/100 WBC (Bld) 55.1 % Normal 47-70 [facility] Comment on above: Performed By: #### L 100.0100, L500.2500 ####[facility] [address] [place], [address] Nucleated RBC (Bld) [#/Vol] 0 10*3/uL Normal 0-5 [facility] Comment on above: Performed By: #### L 100.0100, L500.2500 ####[facility] [address] [place], [address] Platelet mean volume (Bld) [Entitic vol] 10.8 fL Normal 6.2-12.0 [facility] Comment on above: Performed By: #### L 100.0100, L500.2500 ####[facility] [address] [place], [address] Platelets (Bld) [#/Vol] 154 10*3/uL Normal 150-450 [facility] Comment on above: Performed By: #### L 100.0100, L500.2500 ####[facility] [address] [place], [address] RBC (Bld) [#/Vol] 4.29 10*6/uL Normal 4.2-5.4 [facility] Comment on above: Performed By: #### L 100.0100, L500.2500 ####[facility] [address] [place], [address] RDW SD 44.7 fl High 35.1-43.9 [facility] Comment on above: Performed By: #### L 100.0100, L500.2500 ####[facility] [address] [place], [address] WBC (Bld) [#/Vol] 9.0 10*3/uL Normal 4.4-11.0 [facility] Comment on above: Performed By: #### L 100.0100, L500.2500 ####[facility] [address] [place], [address] Carbon dioxide, total [Moles /volume] in Central venous bloodOrdered By: Candis Willson on 03-04-2025 CO2 [Moles/Vol] 24.8 mmol/L 21.0-32.0 [facility] Chloride assayOrdered By: Tasneem Willson on 03-04-2025 Chloride [Moles/Vol] 100 mmol/L 98-108 [facility] Eosinophil percentageOrdered By: Candis Willson on 03-04-2025 Eosinophils/100 WBC (Bld) 3.7 % 0-5 [facility] Erythrocyte distribution wid th ratioOrdered By: Candis Willson on 03-04-2025 Erythrocyte distribution width (RBC) [Ratio] 13.4 % 11.6-14.6 [facility] Erythrocyte distribution wid th standard deviationOrdered By: Candis Willson on 03-04-2025 Erythrocyte distribution width (RBC) [Ratio] 44.7 fl High 35.1-43.9 [facility] Glomerular filtration rate ( GFR) estimation/1.73 sq m using serum, plasma, or whole bOrdered By: Candis Willson on 03-04-2025 GFR/1.73 sq M.predicted among non-blacks MDRD (S/P/Bld) [Vol rate/Area] 85 mL/min/{1.73_m2} >60 [facility] Comment on above: mL/min/1.73m2 CKD-EP I Creatinine Equation (2020) [facility] deOrdered By: Alen Borjas on 03-04-2025 Glucose [Mass/Vol] 282 mg/dL High 74-106 [facility] Comment on above: MANAGEMENT OF PATIEN T CARE PER NURSING PROTOCOL Hematocrit Auto (Bld) [Volum e fraction]Ordered By: Candis Willson on 03-04-2025 Hematocrit (Bld) [Volume fraction] 39.2 % 37-47 [facility] Hemoglobin measurementOrdere d By: Candis Willson on 03-04-2025 Hemoglobin (Bld) [Mass/Vol] 13.2 g/dL 12.0-15.0 [facility] Immature granulocytes/100 WB C Auto (Bld)Ordered By: Candis Willson on 03-04-2025 Immature granulocytes/100 WBC (Bld) 3.400 % High 0.0-0.9 [facility] Comment on above: IG% - Immature Granu locytes (promyelocytes, myelocytes and metamyelocytes) > 1% indicates that a LEFT SHIFT is Present. MCV (mean corpuscular volume ) determinationOrdered By: Candis Willson on 03-04-2025 MCV (RBC) [Entitic vol] 91.4 fL 81-99 [facility] Mean corpuscular hemoglobin (MCH) determinationOrdered By: Candis Willson on 03-04-2025 MCH (RBC) [Entitic mass] 30.8 pg 27.0-32.0 [facility] Mean corpuscular hemoglobin concentration (MCHC) determinationOrdered By: Candis Willson on 03-04-2025 MCHC (RBC) [Mass/Vol] 33.7 g/dL 32-36 [facility] Mean platelet volume determi nationOrdered By: Candis Willson on 03-04-2025 Platelet mean volume (Bld) [Entitic vol] 10.8 fL 6.2-12.0 [facility] Monocyte percentageOrdered B y: Candis Willson on 03-04-2025 Monocytes/100 WBC (Bld) 11.7 % High 0-10 [facility] Neutrophil percentageOrdered By: Candis Willson 03-04-2025 Neutrophils/100 WBC (Bld) 55.1 % 47-70 [facility] Nucleated red blood cell per centageOrdered By: Candis Willson 03-04-2025 Nucleated RBC/100 WBC (Bld) [Ratio] 0 % 0-5 [facility] Platelet countOrdered By: Tasneem Willson on 03-04-2025 Platelets (Bld) [#/Vol] 154 10*3/uL 150-450 [facility] Potassium measurement (mass/ volume)Ordered By: Candis Willson on 03-04-2025 Potassium (Unsp spec) [Mass/Vol] 3.4 mmol/L 3.3-5.1 [facility] RBC Auto (Bld) [#/Vol]Ordere d By: Candis Willson on 03-04-2025 RBC (Bld) [#/Vol] 4.29 10*6/uL 4.2-5.4 [facility] Serum creatinine measurement (mass/volume)Ordered By: Candis Willson on 03-04-2025 Creatinine [Mass/Vol] 0.73 mg/dL 0.70-1.20 [facility] Serum glucose measurement (m ass/volume)Ordered By: Candis Willson on 03-04-2025 Glucose [Mass/Vol] 286 mg/dL High 70-99 [facility] Serum or plasma calcium wendi urement (mass/volume)Ordered By: Cadnis Willson on 03-04-2025 Calcium [Mass/Vol] 8.6 mg/dL 7.6-11.0 [facility] Serum or plasma urea nitroge n measurement (mass/volume)Ordered By: Candis Willson on 03-04-2025 Urea nitrogen [Mass/Vol] 18 mg/dL 4-19 [facility] Sodium levelOrdered By: Candis Willson on 03-04-2025 Sodium [Moles/Vol] 137 mmol/L 133-145 [facility] White blood cell (WBC) count Ordered By: Candis Willson on 03-04-2025 WBC (Bld) [#/Vol] 9.0 10*3/uL 4.4-11.0 [facility] Basic Metabolic Profile (BMP )on 03-03-2025 BUN/CRE 26.2 RATIO High 10-20 [facility] Comment on above: Performed By: #### L 100.0100, L500.2500 ####[facility] [address] [place], [address] Calcium [Mass/Vol] 8.9 mg/dL Normal 7.6-11.0 [facility] Comment on above: Performed By: #### L 100.0100, L500.2500 ####[facility] [address] [place], [address] Chloride [Moles/Vol] 105 mmol/L Normal 98-108 [facility] Comment on above: Performed By: #### L 100.0100, L500.2500 ####[facility] [address] [place], [address] CO2 [Moles/Vol] 23.2 mmol/L Normal 21.0-32.0 [facility] Comment on above: Performed By: #### L 100.0100, L500.2500 ####[facility] [address] [place], [address] Creatinine [Mass/Vol] 0.74 mg/dL Normal 0.70-1.20 [facility] Comment on above: Performed By: #### L 100.0100, L500.2500 ####[facility] [address] [place], [address] ECRCL 68.85 ml/min Normal 50-250 [facility] Comment on above: Performed By: #### L 100.0100, L500.2500 ####[facility] [address] [place], [address] GAP 12 Normal 5-15 [facility] Comment on above: Performed By: #### L 100.0100, L500.2500 ####[facility] [address] [place], [address] GFR/1.73 sq M.predicted among non-blacks MDRD (S/P/Bld) [Vol rate/Area] 84 mL/min/{1.73_m2} Normal >60 [facility] Comment on above: Result Comment: mL/m in/1.73m2 CKD-EPI Creatinine Equation (2020) Performed By: #### L 100.0100, L500.2500 ####[facility] [address] [place], [address] Glucose [Mass/Vol] 259 mg/dL High 70-99 [facility] Comment on above: Performed By: #### L 100.0100, L500.2500 ####[facility] [address] [place], [address] Potassium [Moles/Vol] 3.5 mmol/L Normal 3.3-5.1 [facility] Comment on above: Performed By: #### L 100.0100, L500.2500 ####[facility] [address] [place], [address] Sodium [Moles/Vol] 140 mmol/L Normal 133-145 [facility] Comment on above: Performed By: #### L 100.0100, L500.2500 ####[facility] [address] [place], [address] Urea nitrogen [Mass/Vol] 19 mg/dL Normal 4-19 [facility] Comment on above: Performed By: #### L 100.0100, L500.2500 ####[facility] [address] [place], [address] Bedside Glucoseon 03-03-2025 FINGERSTICK GLU 379 mg/dL High [address] [place] [address] Comment on above: Result Comment: PA GEMENT OF PATIENT CARE PER NURSING PROTOCOL Performed By: #### L 501.080 ####[facility] [address] [place], [address] FINGERSTICK GLU 288 mg/dL High [address] [place] [address] Comment on above: Result Comment: PA GEMENT OF PATIENT CARE PER NURSING PROTOCOL Performed By: #### L 501.080 ####[facility] [address] [place], [address] FINGERSTICK GLU 265 mg/dL High -[address] [place] [address] Comment on above: Result Comment: PA GEMENT OF PATIENT CARE PER NURSING PROTOCOL Performed By: #### L 501.080 ####[facility] [address] [place], [address] FINGERSTICK GLU 264 mg/dL High [address] [place] [address] Comment on above: Result Comment: PA GEMENT OF PATIENT CARE PER NURSING PROTOCOL Performed By: #### L 501.080 ####[facility] [address] [place], [address] CBC W/Diff, Automatedon 08-0 6-2025 Absolute Lymph 2.19 X10 3/uL Normal 0.83-4.51 [facility] Comment on above: Performed By: #### L 100.0100, L500.2500 ####[facility] [address] [place], [address] Absolute Neut 4.4 X10 3/uL Normal 2.0-7.7 [facility] Comment on above: Performed By: #### L 100.0100, L500.2500 ####[facility] [address] [place], [address] Basophils/100 WBC (Bld) 1.0 % Normal 0-1 [facility] Comment on above: Performed By: #### L 100.0100, L500.2500 ####[facility] [address] [place], [address] Eosinophils/100 WBC (Bld) 4.0 % Normal 0-5 [facility] Comment on above: Performed By: #### L 100.0100, L500.2500 ####[facility] [address] [place], [address] Erythrocyte distribution width (RBC) [Ratio] 13.4 % Normal 11.6-14.6 [facility] Comment on above: Performed By: #### L 100.0100, L500.2500 ####[facility] [address] [place], [address] Hematocrit (Bld) [Volume fraction] 38.0 % Normal 37-47 [facility] Comment on above: Performed By: #### L 100.0100, L500.2500 ####[facility] [address] [place], [address] Hemoglobin (Bld) [Mass/Vol] 12.6 g/dL Normal 12.0-15.0 [facility] Comment on above: Performed By: #### L 100.0100, L500.2500 ####[facility] [address] [place], [address] IG% 2.200 High 0.0-0.9 [facility] Comment on above: Result Comment: IG% - Immature Granulocytes (promyelocytes, myelocytes andmetamyelocytes) > 1% indicates that a LEFT SHIFT is Present. Performed By: #### L 100.0100, L500.2500 ####[facility] [address] [place], [address] Lymphocytes/100 WBC (Bld) 26.2 % Normal 19-41 [facility] Comment on above: Performed By: #### L 100.0100, L500.2500 ####[facility] [address] [place], [address] MCH (RBC) [Entitic mass] 30.6 pg Normal 27.0-32.0 [facility] Comment on above: Performed By: #### L 100.0100, L500.2500 ####[facility] [address] [place], [address] MCHC (RBC) [Mass/Vol] 33.2 g/dL Normal 32-36 [facility] Comment on above: Performed By: #### L 100.0100, L500.2500 ####[facility] [address] [place], [address] MCV (RBC) [Entitic vol] 92.2 fL Normal 81-99 [facility] Comment on above: Performed By: #### L 100.0100, L500.2500 ####[facility] [address] [place], [address] Monocytes/100 WBC (Bld) 13.5 % High 0-10 [facility] Comment on above: Performed By: #### L 100.0100, L500.2500 ####[facility] [address] [place], [address] Neutrophils/100 WBC (Bld) 53.1 % Normal 47-70 [facility] Comment on above: Performed By: #### L 100.0100, L500.2500 ####[facility] [address] [place], [address] Nucleated RBC (Bld) [#/Vol] 0 10*3/uL Normal 0-5 [facility] Comment on above: Performed By: #### L 100.0100, L500.2500 ####[facility] [address] [place], [address] Platelet mean volume (Bld) [Entitic vol] 11.0 fL Normal 6.2-12.0 [facility] Comment on above: Performed By: #### L 100.0100, L500.2500 ####[facility] [address] [place], [address] Platelets (Bld) [#/Vol] 126 10*3/uL Low 150-450 [facility] Comment on above: Performed By: #### L 100.0100, L500.2500 ####[facility] [address] [place], [address] RBC (Bld) [#/Vol] 4.12 10*6/uL Low 4.2-5.4 [facility] Comment on above: Performed By: #### L 100.0100, L500.2500 ####[facility] [address] [place], [address] RDW SD 45.8 fl High 35.1-43.9 [facility] Comment on above: Performed By: #### L 100.0100, L500.2500 ####[facility] [address] [place], [address] WBC (Bld) [#/Vol] 8.4 10*3/uL Normal 4.4-11.0 [facility] Comment on above: Performed By: #### L 100.0100, L500.2500 ####[facility] [address] 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 Progress Note Well controlled -continue current doses of losartan and metoprolol succinate Normal [facility] Progress Note Hx PAF with RVR in setting of DKA and sepsis -has had PAF with some RVR, AFib burden 2.3% with longest episode 3 hours on device check -> started on Eliquis. Stopped ASA Normal [facility] Progress Note S/p TAVR with 23 mm Katharine S3 valve on 04/06/24 -stable, NYHA Class -continue Eliquis 5 mg daily (age 74, wt 109 kg, Cr 0.84) -one year echo to be done today -lifelong SBE prophylaxis Normal [facility] Basic Metabolic Profile (BMP )on 03-02-2025 BUN/CRE 21.7 RATIO High 10-20 [facility] Comment on above: Performed By: #### L 100.0100, L500.2500 ####[facility] [address] [place], [address] Calcium [Mass/Vol] 8.6 mg/dL Normal 7.6-11.0 [facility] Comment on above: Performed By: #### L 100.0100, L500.2500 ####[facility] [address] [place], [address] Chloride [Moles/Vol] 107 mmol/L Normal 98-108 [facility] Comment on above: Performed By: #### L 100.0100, L500.2500 ####[facility] [address], [address] CO2 [Moles/Vol] 20.3 mmol/L Low 21.0-32.0 [facility] Comment on above: Performed By: #### L 100.0100, L500.2500 ####[facility] [address] [place], [address] Creatinine [Mass/Vol] 0.65 mg/dL Low 0.70-1.20 [facility] Comment on above: Performed By: #### L 100.0100, L500.2500 ####[facility] [address] [place], [address] ECRCL 68.85 ml/min Normal 50-250 [facility] Comment on above: Performed By: #### L 100.0100, L500.2500 ####[facility] [address] [place], [address] GAP 11 Normal 5-15 [facility] Comment on above: Performed By: #### L 100.0100, L500.2500 ####[facility] [address] [place], [address] GFR/1.73 sq M.predicted among non-blacks MDRD (S/P/Bld) [Vol rate/Area] 91 mL/min/{1.73_m2} Normal >60 [facility] Comment on above: Result Comment: mL/m in/1.73m2 CKD-EPI Creatinine Equation (2020) Performed By: #### L 100.0100, L500.2500 ####[facility] [address] [place], [address] Glucose [Mass/Vol] 215 mg/dL High 70-99 [facility] Comment on above: Performed By: #### L 100.0100, L500.2500 ####[facility] [address] [place], [address] Potassium [Moles/Vol] 3.7 mmol/L Normal 3.3-5.1 [facility] Comment on above: Performed By: #### L 100.0100, L500.2500 ####[facility] [address] [place], [address] Sodium [Moles/Vol] 139 mmol/L Normal 133-145 [facility] Comment on above: Performed By: #### L 100.0100, L500.2500 ####[facility] [address] [place], [address] Urea nitrogen [Mass/Vol] 14 mg/dL Normal 4-19 [facility] Comment on above: Performed By: #### L 100.0100, L500.2500 ####[facility] [address] [place], [address] Bedside Glucoseon 03-02-2025 FINGERSTICK GLU 305 mg/dL High [facility]106 [facility] Comment on above: Result Comment: PA GEMENT OF PATIENT CARE PER NURSING PROTOCOL Performed By: #### L 501.080 ####[facility] [address] [place], [address] FINGERSTICK GLU 269 mg/dL High [facility]106 [facility] Comment on above: Result Comment: PA GEMENT OF PATIENT CARE PER NURSING PROTOCOL Performed By: #### L 501.080 ####[facility] [address] [place], [address] FINGERSTICK GLU 243 mg/dL High -106 [facility] Comment on above: Result Comment: PA GEMENT OF PATIENT CARE PER NURSING PROTOCOL Performed By: #### L 501.080 ####[facility] [address] [place], [address] FINGERSTICK GLU 207 mg/dL High -106 [facility] Comment on above: Result Comment: PA GEMENT OF PATIENT CARE PER NURSING PROTOCOL Performed By: #### L 501.080 ####[facility] [address] [place], [address] CBC W/Diff, Automatedon 08-0 PLT EST MOD DEC Normal ADEQ [facility] Comment on above: Performed By: #### L 100.0100, L500.2500 ####[facility] [address] [place], [address] Platelet estimateOrdered By: Candis Willson on 03-02-2025 Platelets LM Ql (Bld) MOD DEC ADEQ [facility] Basic Metabolic Profile (BMP )on 03-01-2025 BUN/CRE 20.6 RATIO High 10-20 [facility] Comment on above: Performed By: #### L 100.0100, L500.2500 ####[facility] [address] [place], [address] Calcium [Mass/Vol] 8.5 mg/dL Normal 7.6-11.0 [facility] Comment on above: Performed By: #### L 100.0100, L500.2500 ####[facility] [address] [place], [address] Chloride [Moles/Vol] 108 mmol/L Normal 98-108 [facility] Comment on above: Performed By: #### L 100.0100, L500.2500 ####[facility] [address] [place], [address] CO2 [Moles/Vol] 15.3 mmol/L Low 21.0-32.0 [facility] Comment on above: Performed By: #### L 100.0100, L500.2500 ####[facility] [address] [place], [address] Creatinine [Mass/Vol] 0.69 mg/dL Low 0.70-1.20 [facility] Comment on above: Performed By: #### L 100.0100, L500.2500 ####[facility] [address] [place], [address] ECRCL 68.93 ml/min Normal 50-250 [facility] Comment on above: Performed By: #### L 100.0100, L500.2500 ####[facility] [address] [place], [address] GAP 14 Normal 5-15 [facility] Comment on above: Performed By: #### L 100.0100, L500.2500 ####[facility] [address] [place], [address] GFR/1.73 sq M.predicted among non-blacks MDRD (S/P/Bld) [Vol rate/Area] 90 mL/min/{1.73_m2} Normal >60 [facility] Comment on above: Result Comment: mL/m in/1.73m2 CKD-EPI Creatinine Equation (2020) Performed By: #### L 100.0100, L500.2500 ####[facility] [address] [place], [address] Glucose [Mass/Vol] 212 mg/dL High 70-99 [facility] Comment on above: Performed By: #### L 100.0100, L500.2500 ####[facility] [address] [place], [address] Potassium [Moles/Vol] 3.6 mmol/L Normal 3.3-5.1 [facility] Comment on above: Performed By: #### L 100.0100, L500.2500 ####[facility] [address] [place], [address] Sodium [Moles/Vol] 137 mmol/L Normal 133-145 [facility] Comment on above: Performed By: #### L 100.0100, L500.2500 ####[facility] [address] [place], [address] Urea nitrogen [Mass/Vol] 14 mg/dL Normal 4-19 [facility] Comment on above: Performed By: #### L 100.0100, L500.2500 ####[facility] [address] [place], [address] Bedside Glucoseon 03-01-2025 FINGERSTICK GLU 284 mg/dL High [facility]106 [facility] Comment on above: Result Comment: PA GEMENT OF PATIENT CARE PER NURSING PROTOCOL Performed By: #### L 501.080 ####[facility] [address] [place], [address] FINGERSTICK GLU 244 mg/dL High [facility]106 [facility] Comment on above: Result Comment: PA GEMENT OF PATIENT CARE PER NURSING PROTOCOL Performed By: #### L 501.080 ####[facility] [address] [place], [address] FINGERSTICK GLU 180 mg/dL High [facility]106 [facility] Comment on above: Result Comment: PA GEMENT OF PATIENT CARE PER NURSING PROTOCOL Performed By: #### L 501.080 ####[facility] [address] [place], [address] FINGERSTICK GLU 225 mg/dL High [address] [place] [address] Comment on above: Result Comment: PA GEMENT OF PATIENT CARE PER NURSING PROTOCOL Performed By: #### L 501.080 ####[facility] [address] [place], [address] CBC W/Diff, Automatedon Absolute Lymph 1.46 X10 3/uL Normal 0.83-4.51 [facility] Comment on above: Performed By: #### L 100.0100, L500.2500 ####[facility] [address] [place], [address] Absolute Neut 6.2 X10 3/uL Normal 2.0-7.7 [facility] Comment on above: Performed By: #### L 100.0100, L500.2500 ####[facility] [address] [place], [address] Basophils/100 WBC (Bld) 0.7 % Normal 0-1 [facility] Comment on above: Performed By: #### L 100.0100, L500.2500 ####[facility] [address] [place], [address] Eosinophils/100 WBC (Bld) 0.6 % Normal 0-5 [facility] Comment on above: Performed By: #### L 100.0100, L500.2500 ####[facility] [address] [place], [address] Erythrocyte distribution width (RBC) [Ratio] 13.4 % Normal 11.6-14.6 [facility] Comment on above: Performed By: #### L 100.0100, L500.2500 ####[facility] [address] [place], [address] Hematocrit (Bld) [Volume fraction] 35.9 % Low 37-47 [facility] Comment on above: Performed By: #### L 100.0100, L500.2500 ####[facility] [address] [place], [address] Hemoglobin (Bld) [Mass/Vol] 12.2 g/dL Normal 12.0-15.0 [facility] Comment on above: Performed By: #### L 100.0100, L500.2500 ####[facility] [address] [place], [address] IG% 0.700 Normal 0.0-0.9 [facility] Comment on above: Result Comment: IG% - Immature Granulocytes (promyelocytes, myelocytes andmetamyelocytes) > 1% indicates that a LEFT SHIFT is Present. Performed By: #### L 100.0100, L500.2500 ####[facility] [address] [place], [address] Lymphocytes/100 WBC (Bld) 16.8 % Low 19-41 [facility] Comment on above: Performed By: #### L 100.0100, L500.2500 ####[facility] [address] [place], [address] MCH (RBC) [Entitic mass] 31.0 pg Normal 27.0-32.0 [facility] Comment on above: Performed By: #### L 100.0100, L500.2500 ####[facility] [address] [place], [address] MCHC (RBC) [Mass/Vol] 34.0 g/dL Normal 32-36 [facility] Comment on above: Performed By: #### L 100.0100, L500.2500 ####[facility] [address] [place], [address] MCV (RBC) [Entitic vol] 91.3 fL Normal 81-99 [facility] Comment on above: Performed By: #### L 100.0100, L500.2500 ####[facility] [address] [place], [address] Monocytes/100 WBC (Bld) 10.6 % High 0-10 [facility] Comment on above: Performed By: #### L 100.0100, L500.2500 ####[facility] [address] [place], [address] Neutrophils/100 WBC (Bld) 70.6 % High 47-70 [facility] Comment on above: Performed By: #### L 100.0100, L500.2500 ####[facility] [address] [place], [address] Nucleated RBC (Bld) [#/Vol] 0 10*3/uL Normal 0-5 [facility] Comment on above: Performed By: #### L 100.0100, L500.2500 ####[facility] [address] [place], [address] Platelet mean volume (Bld) [Entitic vol] 12.2 fL High 6.2-12.0 [facility] Comment on above: Performed By: #### L 100.0100, L500.2500 ####[facility] [address] [place], [address] Platelets (Bld) [#/Vol] 76 10*3/uL Low 150-450 [facility] Comment on above: Performed By: #### L 100.0100, L500.2500 ####[facility] [address] [place], [address] RBC (Bld) [#/Vol] 3.93 10*6/uL Low 4.2-5.4 [facility] Comment on above: Performed By: #### L 100.0100, L500.2500 ####[facility] [address] [place], [address] RDW SD 45.7 fl High 35.1-43.9 [facility] Comment on above: Performed By: #### L 100.0100, L500.2500 ####[facility] [address] [place], [address] WBC (Bld) [#/Vol] 8.7 10*3/uL Normal 4.4-11.0 [facility] Comment on above: Performed By: #### L 100.0100, L500.2500 ####[facility] [address] [place], [address] Culture, Blood (WB)on 2024 CUB Normal [facility] Comment on above: Performed By: #### M 200.1000 ####[facility] [address] [place], [address] Echo Transesophageal (ALEKSANDAR)on 03-01-2025 Echo Transesophageal (ALEKSANDAR) Normal [facility] Electrocardiogram reportOrde red By: Ac Hubbard on 03-01-2025 EKG study [facility] Cardi[facility] Services [address] [place] [address] 12 Lead EKG 02/25/25 205 MR#: [id number] Acct: [id number] Name: JENNIFER GONZALEZ Rep #:[id number] : 1950 74 From: Ac Hubbard MD Attending Dr: Dr. Alen Borjas DO Status: ADM IN Ordering Dr: Epi Lynch DO Date: 5 Location: U Sex: F C Admitted: 02/26/25 Test Reason : ALTERED LOC Blood Pressure : */* mmHG Vent. Rate : 125 BPM Atrial Rate : 125 BPM P-R Int : 152 ms QRS Dur : 128 ms QT Int : 302 ms P-R-T Axes : 42 92 -19 degrees QTcB Int : 435 ms Sinus tachycardia Right bundle branch block T wave abnormality, consider inferior ischemia Abnormal ECG Confirmed by AC HUBBARD MD ([id number]), image editor DAMI JETER ([id number]) on 03/01/2025 10:27:04 AM Referred By: CAROLYN Confirmed By: AC HUBBARD MD 03/01/25 1027 Date _ Ac Hubbard MD CC: Dr. Abby Mcclellan MD; Dr. Alen Borjas DO; Dr. Epi Lynch, ~ Signed [facility] Work Phone: Transesophageal echocardiogr am reportOrdered By: Ac Hubbard on 03-01-2025 Study report [facility] [address] [place] [address] Echo Transesophageal (ALEKSANDAR) 03/01/25 0808 MR#: [id number] Acct: [id number] Name: JENNIFER GONZALEZ Rep #:[id number] : 1950 74 From: Ac Edwards Attending Dr: Dr. Alen Borjas DO Status: ADM IN Ordering Dr: Jesus Alberto Lopez MD Date: 03/01/25 Location: U Sex: F C Admitted: 02/26/25 Reason For Study Reason For Study: Endocarditis Medication ALEKSANDAR probe 6VT-D (SN [id number]) passed without difficulty. No complications were noted. Cetacaine Topical Alleman given X3 orally. Versed 2 mg given slow IVP. Fentanyl 50 mcg given slow IVP. Performed a rapid injection of agitated mix of 9 cc saline and 1cc air to assess for atrial septal defect. Left Ventricle Normal LV size. Left ventricular systolic function is normal. The left ventricular ejection fraction is 60 %. No regional wall motion abnormalities noted. Right Ventricle Normal RV size. The right ventricle is normal in size, function, and thickness. Atria Bubble contrast study is negative for PFO/ASD. The left atrium is mildly enlarged. No thrombus is detected in the left atrial appendage. Normal right atrium. ICD or pacer leads identified within the right atrium. Mitral Valve Mild focal mitral valve calcification, bileaflet. Mild restriction of the mitralvalve. Mild mitral valve stenosis. Mild (1+) mitral valve insufficiency. Tricuspid Valve Normal tricuspid valve. Aortic Valve Bioprosthetic aortic valve. Bioprosthetic aortic valve functioning normally. Pulmonic Valve Normal pulmonic valve. Vessels Normal aortic root. Pericardium No pericardial effusion. ECHO/Echo Transesophageal (ALEKSANDAR) Interpretation Summary Normal LV size. Left ventricular systolic function is normal. The left ventricular ejection fraction is 60 %. Bubble contrast study is negative for PFO/ASD. Mild focal mitral valve calcification, bileaflet. Bioprosthetic aortic valve functioning normally. No evidence of vegetation noted to suggest endocarditis. Ordering Physician: Jesus Alberto Lopez Referring Physician: Abby Mcclellan M.D. Performed By: Juliane Silva RDCS 03/01/25 09 Date _ Ac Hubbard MD CC: Dr. Abby Mcclellan MD; Dr. Alen Borjas DO; Dr. 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, [address] Calcium [Mass/Vol] 8.0 mg/dL Normal 7.6-11.0 [facility] Comment on above: Performed By: #### L 500.2500, L100.0100 ####[facility] [address] [place], [address] Chloride [Moles/Vol] 108 mmol/L Normal 98-108 [facility] Comment on above: Performed By: #### L 500.2500, L100.0100 ####[facility] [address] [place], [address] CO2 [Moles/Vol] 18.8 mmol/L Low 21.0-32.0 [facility] Comment on above: Performed By: #### L 500.2500, L100.0100 ####[facility] [address] [place], [address] Creatinine [Mass/Vol] 0.78 mg/dL Normal 0.70-1.20 [facility] Comment on above: Performed By: #### L 500.2500, L100.0100 ####[facility] [address] [place], [address] ECRCL 68.81 ml/min Normal 50-250 [facility] Comment on above: Performed By: #### L 500.2500, L100.0100 ####[facility] [address] [place], [address] GAP 10 Normal 5-15 [facility] Comment on above: Performed By: #### L 500.2500, L100.0100 ####[facility] [address] [place], [address] GFR/1.73 sq M.predicted among non-blacks MDRD (S/P/Bld) [Vol rate/Area] 78 mL/min/{1.73_m2} Normal >60 [facility] Comment on above: Result Comment: mL/m in/1.73m2 CKD-EPI Creatinine Equation (2020) Performed By: #### L 500.2500, L100.0100 ####[facility] [address] [place], [address] Glucose [Mass/Vol] 176 mg/dL High 70-99 [facility] Comment on above: Performed By: #### L 500.2500, L100.0100 ####[facility] [address] [place], [address] Potassium [Moles/Vol] 3.5 mmol/L Normal 3.3-5.1 [facility] Comment on above: Performed By: #### L 500.2500, L100.0100 ####[facility] [address] [place], [address] Sodium [Moles/Vol] 137 mmol/L Normal 133-145 [facility] Comment on above: Performed By: #### L 500.2500, L100.0100 ####[facility] [address] [place], [address] Urea nitrogen [Mass/Vol] 16 mg/dL Normal 4-19 [facility] Comment on above: Performed By: #### L 500.2500, L100.0100 ####[facility] [address] [place], [address] Bedside Glucoseon 02-28-2025 FINGERSTICK GLU 236 mg/dL High 74-106 [facility] Comment on above: Result Comment: PA GEMENT OF PATIENT CARE PER NURSING PROTOCOL Performed By: #### L 501.080 ####[facility] [address] [place], [address] FINGERSTICK GLU 168 mg/dL High 74-106 [facility] Comment on above: Result Comment: PA GEMENT OF PATIENT CARE PER NURSING PROTOCOL Performed By: #### L 501.080 ####[facility] [address] [place], [address] FINGERSTICK GLU 165 mg/dL High 74-106 [facility] Comment on above: Result Comment: PA GEMENT OF PATIENT CARE PER NURSING PROTOCOL Performed By: #### L 501.080 ####[facility] [address] [place], [address] FINGERSTICK GLU 170 mg/dL High 74-106 [facility] Comment on above: Result Comment: PA GEMENT OF PATIENT CARE PER NURSING PROTOCOL Performed By: #### L 501.080 ####[facility] [address] [place], [address] Blood cultureOrdered By: Maritza Willson on 02-28-2025 Bacteria identified Cx Nom (Bld) No growth in 5 days. [facility] Bacteria identified Cx Nom (Bld) No growth in 5 days. [facility] Blood manual differential co mment interpretation (narrative result)Ordered By: Candis Willson on 02-28-2025 Manual differential comment Eduardo (Bld) [Interp] SCANNED [facility] Comment on above: LEFT SHIFT: BANDS RI ESENT 2+ CBC W/Diff, Automatedon 08-0 PLT EST MOD DEC Normal ADEQ [facility] Comment on above: Performed By: #### L 500.2500, L100.0100 ####[facility] [address] [place], [address] SMEAR COMMENT SCANNED Normal [facility] Comment on above: Result Comment: LEFT SHIFT: BANDS PRESENT 2+ Performed By: #### L 500.2500, L100.0100 ####[facility] [address] [place], [address] Chest 1 View (Portable)on Chest 1 View (Portable) Normal [facility] Culture, Blood (WB)on 2024 CUB Normal [facility] Comment on above: Performed By: #### L 500.4050, L100.0100, M200.1000, L300.4310, L503.6005, M100.636, L300.3900 ####[facility] [address] [place], [address] Magnesiumon 02-28-2025 Magnesium [Mass/Vol] 1.8 mg/dL Normal 1.5-2.2 [facility] Comment on above: Performed By: #### L 501.5200, L501.2300 ####[facility] [address] [place], [address] Magnesium measurement (mass/ volume)Ordered By: Candis Willson on 02-28-2025 Magnesium (Unsp spec) [Mass/Vol] 1.8 mg/dL 1.5-2.2 [facility] Phosphoruson 02-28-2025 Phosphate [Mass/Vol] 1.7 mg/dL Low 2.7-4.5 [facility] Comment on above: Performed By: #### L 501.5200, L501.2300 ####[facility] [address] [place], [address] Urine Cultureon 02-28-2025 URC Normal [facility] Comment on above: Performed By: #### L 400.0001, M100.2200 ####[facility] [address] [place], [address] Basic Metabolic Profile (BMP )on 02-27-2025 BUN/CRE 21.6 RATIO High 10-20 [facility] Comment on above: Performed By: #### L 100.0100, L500.2500 ####[facility] [address] [place], [address] Calcium [Mass/Vol] 8.4 mg/dL Normal 7.6-11.0 [facility] Comment on above: Performed By: #### L 100.0100, L500.2500 ####[facility] [address] [place], [address] Chloride [Moles/Vol] 108 mmol/L Normal 98-108 [facility] Comment on above: Performed By: #### L 100.0100, L500.2500 ####[facility] [address] [place], [address] CO2 [Moles/Vol] 18.8 mmol/L Low 21.0-32.0 [facility] Comment on above: Performed By: #### L 100.0100, L500.2500 ####[facility] [address] [place], [address] Creatinine [Mass/Vol] 0.86 mg/dL Normal 0.70-1.20 [facility] Comment on above: Performed By: #### L 100.0100, L500.2500 ####[facility] [address] [place], [address] ECRCL 63.73 ml/min Normal 50-250 [facility] Comment on above: Performed By: #### L 100.0100, L500.2500 ####[facility] [address] [place], [address] GAP 11 Normal 5-15 [facility] Comment on above: Performed By: #### L 100.0100, L500.2500 ####[facility] [address] [place], [address] GFR/1.73 sq M.predicted among non-blacks MDRD (S/P/Bld) [Vol rate/Area] 70 mL/min/{1.73_m2} Normal >60 [facility] Comment on above: Result Comment: mL/m in/1.73m2 CKD-EPI Creatinine Equation (2020) Performed By: #### L 100.0100, L500.2500 ####[facility] [address] [place], [address] Glucose [Mass/Vol] 156 mg/dL High 70-99 [facility] Comment on above: Performed By: #### L 100.0100, L500.2500 ####[facility] [address] [place], [address] Potassium [Moles/Vol] 3.6 mmol/L Normal 3.3-5.1 [facility] Comment on above: Performed By: #### L 100.0100, L500.2500 ####[facility] [address] [place], [address] Sodium [Moles/Vol] 137 mmol/L Normal 133-145 [facility] Comment on above: Performed By: #### L 100.0100, L500.2500 ####[facility] [address] [place], [address] Urea nitrogen [Mass/Vol] 19 mg/dL Normal 4-19 [facility] Comment on above: Performed By: #### L 100.0100, L500.2500 ####[facility] [address] [place], [address] Bedside Glucoseon 02-27-2025 FINGERSTICK GLU 172 mg/dL High 74-106 [facility] Comment on above: Result Comment: PA MONTOYA OF PATIENT CARE PER NURSING PROTOCOL Performed By: #### L 501.080 ####[facility] [address] [place], [address] FINGERSTICK GLU 207 mg/dL High 74-106 [facility] Comment on above: Result Comment: PA GEMENT OF PATIENT CARE PER NURSING PROTOCOL Performed By: #### L 501.080 ####[facility] [address] [place], [address] FINGERSTICK GLU 225 mg/dL High 74-106 [facility] Comment on above: Result Comment: PA GEMENT OF PATIENT CARE PER NURSING PROTOCOL Performed By: #### L 501.080 ####[facility] [address] [place], [address] FINGERSTICK GLU 136 mg/dL High 74-106 [facility] Comment on above: Result Comment: PA GEMENT OF PATIENT CARE PER NURSING PROTOCOL Performed By: #### L 501.080 ####[facility] [address] [place], [address] CBC W/Diff, Automatedon 08-0 2-2025 Absolute Lymph 1.68 X10 3/uL Normal 0.83-4.51 [facility] Comment on above: Performed By: #### L 100.0100, L500.2500 ####[facility] [address] [place], [address] Absolute Neut 6.7 X10 3/uL Normal 2.0-7.7 [facility] Comment on above: Performed By: #### L 100.0100, L500.2500 ####[facility] [address] [place], [address] Basophils/100 WBC (Bld) 0.6 % Normal 0-1 [facility] Comment on above: Performed By: #### L 100.0100, L500.2500 ####[facility] [address] [place], [address] Eosinophils/100 WBC (Bld) 0.4 % Normal 0-5 [facility] Comment on above: Performed By: #### L 100.0100, L500.2500 ####[facility] [address] [place], [address] Erythrocyte distribution width (RBC) [Ratio] 13.5 % Normal 11.6-14.6 [facility] Comment on above: Performed By: #### L 100.0100, L500.2500 ####[facility] [address] [place], [address] Hematocrit (Bld) [Volume fraction] 39.2 % Normal 37-47 [facility] Comment on above: Performed By: #### L 100.0100, L500.2500 ####[facility] [address] [place], [address] Hemoglobin (Bld) [Mass/Vol] 13.2 g/dL Normal 12.0-15.0 [facility] Comment on above: Performed By: #### L 100.0100, L500.2500 ####[facility] [address] [place], [address] IG% 1.100 High 0.0-0.9 [facility] Comment on above: Result Comment: IG% - Immature Granulocytes (promyelocytes, myelocytes andmetamyelocytes) > 1% indicates that a LEFT SHIFT is Present. Performed By: #### L 100.0100, L500.2500 ####[facility] [address] [place], [address] Lymphocytes/100 WBC (Bld) 18.6 % Low 19-41 [facility] Comment on above: Performed By: #### L 100.0100, L500.2500 ####[facility] [address] [place], [address] MCH (RBC) [Entitic mass] 31.1 pg Normal 27.0-32.0 [facility] Comment on above: Performed By: #### L 100.0100, L500.2500 ####[facility] [address] [place], [address] MCHC (RBC) [Mass/Vol] 33.7 g/dL Normal 32-36 [facility] Comment on above: Performed By: #### L 100.0100, L500.2500 ####[facility] [address] [place], [address] MCV (RBC) [Entitic vol] 92.5 fL Normal 81-99 [facility] Comment on above: Performed By: #### L 100.0100, L500.2500 ####[facility] [address] [place], [address] Monocytes/100 WBC (Bld) 5.5 % Normal 0-10 [facility] Comment on above: Performed By: #### L 100.0100, L500.2500 ####[facility] [address] [place], [address] Neutrophils/100 WBC (Bld) 73.8 % High 47-70 [facility] Comment on above: Performed By: #### L 100.0100, L500.2500 ####[facility] [address] [place], [address] Nucleated RBC (Bld) [#/Vol] 0 10*3/uL Normal 0-5 [facility] Comment on above: Performed By: #### L 100.0100, L500.2500 ####[facility] [address] [place], [address] Platelet mean volume (Bld) [Entitic vol] 11.8 fL Normal 6.2-12.0 [facility] Comment on above: Performed By: #### L 100.0100, L500.2500 ####[facility] [address] [place], [address] Platelets (Bld) [#/Vol] 63 10*3/uL Low 150-450 [facility] Comment on above: Performed By: #### L 100.0100, L500.2500 ####[facility] [address] [place], [address] RBC (Bld) [#/Vol] 4.24 10*6/uL Normal 4.2-5.4 [facility] Comment on above: Performed By: #### L 100.0100, L500.2500 ####[facility] [address] [place], [address] RDW SD 46.3 fl High 35.1-43.9 [facility] Comment on above: Performed By: #### L 100.0100, L500.2500 ####[facility] [address] [place], [address] WBC (Bld) [#/Vol] 9.0 10*3/uL Normal 4.4-11.0 [facility] Comment on above: Performed By: #### L 100.0100, L500.2500 ####[facility] [address] [place], [address] Trough vancomycin levelOrder ed By: Doug Alonso on 02-27-2025 Vancomycin trough [Mass/Vol] 14.6 ug/mL 5.0-15.0 [facility] Comment on above: Recommended goal tro ugh ranges are generally 10-15 mcg/ml for less severe/complicated infections such as cellulitis or UTI and 15-20 mcg/ml for more severe/complicated infections such as bacteremia/sepsis, osteomyelitis, pneumonia or meningitis. Goal trough ranges should take into account indication, patient-specific factors and organism EMILY.VANCOMYCIN STANDARED DRUG THERAPY TROUGH LEVEL: 5.0 - 15.0 mg/L VANCOMYCIN HIGH INTENSITY THERAPY TROUGH LEVEL: 15.0 - 20.0 mg/L High Intensity therapy recommended for serious lifethreatening infections include:- Pdfgfbezrs-Gfwrjuaxdqwj-Nxezsteff (Ventilator/Healtcare Associated)-Sepsis PLEASE CONTACT PHARMACY SERVICES (#[id number]) FOR INTERPRETATIONOF RESULTS. Vancomycin, Trough Levelon 0 02-27-2025 VANCO, TROUGH 14.6 ug/mL Normal 5.0-15.0 [facility] Comment on above: Order Comment: Comme nts: Trough to be drawn 30 mins prior to scheduled [id number] Result Comment: Shorty mmended goal trough ranges are generally 10-15 mcg/mlfor less severe/complicated infections such as cellulitisor UTI and 15-20 mcg/ml for more severe/complicatedinfections such as bacteremia/sepsis, osteomyelitis,pneumonia or meningitis. Goal trough ranges should takeinto account indication, patient-specific factors andorganism EMILY.VANCOMYCIN STANDARED DRUG THERAPY TROUGH LEVEL: 5.0 - 15.0 mg/LVANCOMYCIN HIGH INTENSITY THERAPY TROUGH LEVEL: 15.0 - 20.0 mg/LHigh Intensity therapy recommended for serious lifethreatening infections include:- Hwaljmwimq-Kxxowjdxqrmy-Nzqnkgydy (Ventilator/Healtcare Associated)-SepsisPLEASE CONTACT PHARMACY SERVICES (#[id number]) FOR INTERPRETATIONOF RESULTS. Performed By: #### L 501.8820 ####[facility] [address] [place], [place], [address] Alcohol, Blood (Medical)-Ser umon 02-26-2025 SERUM ETOH < 10.1 Normal <=10.0 [facility] Comment on above: Result Comment: This test is for medical purposes only. The legaldefinition of intoxication varies according to local law. Performed By: #### L 501.9100, L501.6901, L501.9520, L503.0106 ####[facility] [address] [place], [place], [address] Amphetamine detection with 1 000 ng/mL as cutoffOrdered By: Doug Alonso on 02-26-2025 Amphetamines Screen method >1000 ng/mL Ql (U) Negative < 200 ng/mL [facility] Assessment of wrist artery p atency prior to arterial punctureOrdered By: Doug Alonso on 02-26-2025 Arterial patency Wrist artery --pre arterial puncture Positive [facility] BC GPC IDon 02-26-2025 BC GPC ID Normal [facility] Comment on above: Performed By: #### L 500.4050, L100.0100, M200.1000, L300.4310, L503.6005, M100.636, L300.3900 ####[facility] [address] [place], [address] Bedside Glucoseon 02-26-2025 FINGERSTICK GLU 213 mg/dL High 74-106 [facility] Comment on above: Result Comment: PA GEMENT OF PATIENT CARE PER NURSING PROTOCOL Performed By: #### L 501.080 ####[facility] [address] [place], [address] FINGERSTICK GLU 213 mg/dL High 74-106 [facility] Comment on above: Result Comment: PA GEMENT OF PATIENT CARE PER NURSING PROTOCOL Performed By: #### L 501.080 ####[facility] [address] [place], [address] Beta-Hydroxbytyrateon 2024 BETA-HYDROXYBUT 0.4 mmol/L High 0.0-0.3 [facility] Comment on above: Performed By: #### L 501.9100, L501.6901, L501.9520, L503.0106 ####[facility] [address] [place], [address] Beta-hydroxybutyrateOrdered By: Doug Alonso on 02-26-2025 Beta hydroxybutyrate [Mass/Vol] 0.4 mmol/L High 0.0-0.3 [facility] Bilirubin, totalOrdered By: Doug Alonso on 02-26-2025 Bilirubin [Mass/Vol] 1.86 mg/dL High 0.00-1.30 [facility] Blood Gases by CPSon 025 JAVON TEST Positive Normal [facility] Comment on above: Performed By: #### L 9000.0800 ####[facility] [address] [place], [address] Base excess Calc (Bld) [Moles/Vol] -5 mmol/L Low -2 to +2 [facility] Comment on above: Performed By: #### L 9000.0800 ####[facility] [address] [place], [address] Blood Gas Type ART Normal [facility] Comment on above: Performed By: #### L 9000.0800 ####[facility] [address] [place], [address] CO2 [Moles/Vol] 20 mmol/L Normal [facility] Comment on above: Performed By: #### L 9000.0800 ####[facility] [address] [place], [address] HCO3 (Bld) [Moles/Vol] 19.2 mmol/L Low 22-26 [facility] Comment on above: Performed By: #### L 9000.0800 ####[facility] [address] [place], [address] Mode Not entered Normal [facility] Comment on above: Performed By: #### L 9000.0800 ####[facility] [address] [place], [address] O2 Delivery Dev Room Air [facility] Comment on above: Performed By: #### L 9000.0800 ####[facility] [address] [place], [address] pCO2 27.6 mmHg Low 35-45 [facility] Comment on above: Performed By: #### L 9000.0800 ####[facility] [address] [place], [address] pH (Bld) 7.45 [pH] Normal 7.35-7.45 [facility] Comment on above: Performed By: #### L 9000.0800 ####[facility] [address] [place], [address] PO2 61 mmHG Low 75-100 [facility] Comment on above: Performed By: #### L 9000.0800 ####[facility] [address] [place], [address] SITE R Radial Normal [facility] Comment on above: Performed By: #### L 9000.0800 ####[facility] [address] [place], [address] SO2 92 Low 95-99 [facility] Comment on above: Performed By: #### L 9000.0800 ####[facility] [address] [place], [place], [address] Blood base excess determinat ionOrdered By: Doug Alonso on 02-26-2025 Base excess Calc (BldV) [Moles/Vol] -5 mmol/L Low -2-2 [facility] Blood bicarbonate measuremen tOrdered By: Doug Alonso on 02-26-2025 HCO3 (Bld) [Moles/Vol] 19.2 mmol/L Low 22-26 [facility] Blood cultureOrdered By: Armando Lopez on 02-26-2025 Bacteria identified Cx Nom (Bld) Streptococcus agalactiae (B) Abnormal [facility] CBC W/Diff, Automatedon 08-0 PLT EST MOD DEC Normal ADEQ [facility] Comment on above: Performed By: #### L 100.0100 ####[facility] [address] [place], [place], [address] SMEAR COMMENT SCANNED Normal [facility] Comment on above: Result Comment: LYMP HOPENIA NOTED Performed By: #### L 100.0100 ####[facility] [address] [place], [place], [address] CXR for Line Placementon CXR for Line Placement Normal [facility] Calculated very low density lipoprotein (VLDL) cholesterol measurementOrdered By: Doug Alonso on 02-26-2025 Calculated very low density lipoprotein (VLDL) cholesterol measurement 20 mg/dL 5-40 [facility] Chest 1 View (Portable)on Chest 1 View (Portable) Normal [facility] Comprehensive Metabolic Prof ilon 02-26-2025 Albumin [Mass/Vol] 3.5 g/dL Normal 3.4-4.8 [facility] Comment on above: Performed By: #### L 500.4100, L500.4050 ####[facility] [address] [place], [address] Albumin/Globulin [Mass ratio] 1.8 {ratio} Normal 0.9-2.4 [facility] Comment on above: Performed By: #### L 500.4100, L500.4050 ####[facility] [address] [place], [address] ALK PHOS 43 U/L Normal 35-104 [facility] Comment on above: Performed By: #### L 500.4100, L500.4050 ####[facility] [address] [place], [address] ALT [Catalytic activity/Vol] 30 U/L Normal <=34 [facility] Comment on above: Performed By: #### L 500.4100, L500.4050 ####[facility] [address] [place], [address] AST [Catalytic activity/Vol] 31 U/L Normal <=31 [facility] Comment on above: Performed By: #### L 500.4100, L500.4050 ####[facility] [address] [place], [address] Bilirubin [Mass/Vol] 1.86 mg/dL High 0.00-1.30 [facility] Comment on above: Performed By: #### L 500.4100, L500.4050 ####[facility] [address] [place], [address] BUN/CRE 16.1 RATIO Normal 10-20 [facility] Comment on above: Performed By: #### L 500.4100, L500.4050 ####[facility] [address] [place], [address] Calcium [Mass/Vol] 8.2 mg/dL Normal 7.6-11.0 [facility] Comment on above: Performed By: #### L 500.4100, L500.4050 ####[facility] [address] [place], [address] Chloride [Moles/Vol] 105 mmol/L Normal 98-108 [facility] Comment on above: Performed By: #### L 500.4100, L500.4050 ####[facility] [address] [place], [address] CO2 [Moles/Vol] 19.1 mmol/L Low 21.0-32.0 [facility] Comment on above: Performed By: #### L 500.4100, L500.4050 ####[facility] [address] [place], [address] Creatinine [Mass/Vol] 1.11 mg/dL Normal 0.70-1.20 [facility] Comment on above: Performed By: #### L 500.4100, L500.4050 ####[facility] [address] [place], [address] ECRCL 48.45 ml/min Low 50-250 [facility] Comment on above: Performed By: #### L 500.4100, L500.4050 ####[facility] [address] [place], [address] GAP 13 Normal 5-15 [facility] Comment on above: Performed By: #### L 500.4100, L500.4050 ####[facility] [address] [place], [address] GFR/1.73 sq M.predicted among non-blacks MDRD (S/P/Bld) [Vol rate/Area] 52 mL/min/{1.73_m2} Low >60 [facility] Comment on above: Result Comment: mL/m in/1.73m2 CKD-EPI Creatinine Equation (2020) Performed By: #### L 500.4100, L500.4050 ####[facility] [address] [place], [address] Globulin (S) [Mass/Vol] 2.0 g/dL Low 2.2-4.2 [facility] Comment on above: Performed By: #### L 500.4100, L500.4050 ####[facility] [address] [place], [address] Glucose [Mass/Vol] 263 mg/dL High 70-99 [facility] Comment on above: Performed By: #### L 500.4100, L500.4050 ####[facility] [address] [place], [address] Potassium [Moles/Vol] 3.8 mmol/L Normal 3.3-5.1 [facility] Comment on above: Performed By: #### L 500.4100, L500.4050 ####[facility] [address] [place], [address] Sodium [Moles/Vol] 137 mmol/L Normal 133-145 [facility] Comment on above: Performed By: #### L 500.4100, L500.4050 ####[facility] [address] [place], [address] T PROT 5.5 g/dL Low 5.9-8.4 [facility] Comment on above: Performed By: #### L 500.4100, L500.4050 ####[facility] [address] [place], [address] Urea nitrogen [Mass/Vol] 18 mg/dL Normal 4-19 [facility] Comment on above: Performed By: #### L 500.4100, L500.4050 ####[facility] [address] [place], [address] Consultation - Infectious Dx on 02-26-2025 Consultation - Infectious Dx Normal [facility] Consultation - Intensiviston 02-26-2025 Consultation - Director [employer] Normal [facility] Echo Complete W/ Contraston 02-26-2025 Echo Complete W/ Contrast Normal [facility] Echocardiogram study reportO rdered By: Cesar Baker on 02-26-2025 Study report [facility] [address] [place] [address] Echo Complete W/ Contrast 02/26/25 0913 MR#: [id number] Acct: [id number] Name: JENNIFER GONZALEZ Rep #:[id number] : 1950 74 From: Cesar marcelino MD Attending Dr: Dr. Candis Willson MD Status: ADM IN Ordering Dr: Donnell Mendez DO Date: 08/22 Location: ICU Sex: F C Admitted: 02/26/25 Reason For Study Reason For Study: GRAM+ BACTEREMIA. Procedure This was a 2D Doppler, Color Flow transthoracic echocardiogram. The study was technically difficult. The patient was scanned supine. Contrast injection was performed. Exam performed portable in ICU/CCU. Left Ventricle Normal left ventricular size. Mildly increased left ventricular wall thickness. Normal LVEF with estimated ejection fraction of 55 to 60%. No regional wall motion abnormalities. Indeterminate diastolic function due to elevated LA pressure secondary to mitral valve stenosis. Right Ventricle Mildly increased right ventricular size, normal wall thickness, preserved function. Atria There is mild biatrial dilatation. Mitral Valve Bileaflet diffuse mitral valve thickening. Mild mitral valve stenosis. Trivial mitral valve insufficiency. Tricuspid Valve Normal tricuspid valve. Unable to estimate RV systolic pressure due to inadequate jet, pulmonary artery pressure probably normal. Mild tricuspid valve insufficiency. Aortic Valve Not well-visualized. 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 Pulmonic Valve The pulmonic valve is not well visualized. Great Vessels The aortic root is not well visualized. Pericardium/Pleural No pericardial effusion. Epicardial fat. Medication Diluted definity 1.0ml given slow IV push to enhance endocardial definition. MMode/2D Measurements & Calculations LVIDd: 4.2 cm IVSd: 1.1 cm Ao root diam: 2.6 cm LVIDs: 2.9 cm LVPWd: 1.1 cm FS: 31.8 % LAV(MOD-bp): 41.2 ml LVAd ap4: 20.7 cm2 LVAd ap2: 20.2 cm2 LAV(MOD-bp) Indexed: 20.6 ml/m2 LVLd ap4: 7.4 cm LVLd ap2: 7.1 cm LAV(MOD-sp2): 44.2 ml EDV(MOD-sp4): 48.5 ml EDV(MOD-sp2): 46.6 ml LAV(MOD-sp4): 35.9 ml EDV(sp4-el): 49.5 ml EDV(sp2-el): 48.5 ml LVAs ap4: 10.8 cm2 LVAs ap2: 10.5 cm2 LVLs ap4: 6.4 cm LVLs ap2: 6.3 cm ESV(MOD-sp4): 15.3 ml ESV(MOD-sp2): 14.6 ml ESV(sp4-el): 15.5 ml ESV(sp2-el): 14.8 ml EF(MOD-sp4): 68.5 % EF(MOD-sp2): 68.6 % EF(sp4-el): 68.8 % ____ SV(MOD-sp4): 33.2 ml SV(MOD-sp2): 32.0 ml SV(sp4-el): 34.1 ml SI(MOD-sp4): 16.6 ml/m2 SI(MOD-sp2): 16.0 ml/m2 LA A4 area: 15.5 cm2 LA dimension(2D): 4.1 cm TAPSE: 1.4 cm Time Measurements MV dec time: 0.23 sec Doppler Measurements & Calculations MV E max antwon: 136.0 cm/sec Lat Peak E' Antwon: 9.4 cm/sec Med Peak E' Antwon: 10.4 cm/sec MV A max antwon: 140.1 cm/sec E/E' lat: 14.5 E/E' med: 13.0 MV E/A: 0.97 _ MV V2 max: 150.7 cm/sec MV P1/2t max antwon: 147.1 cm/sec Ao V2 max: 181.9 cm/sec MV max P.1 mmHg MV P1/2t: 66.7 msec Ao max P.2 mmHg MV V2 mean: 104.6 cm/sec MV dec slope: 645.9 cm/sec2 Ao V2 mean: 118.8 cm/sec MV mean P.7 mmHg MVA(P1/2t): 3.3 cm2 Ao mean P.3 mmHg MV V2 VTI: 34.2 cm Ao V2 VTI: 31.6 cm AV (velocity ratio): 0.51 LV V1 max: 93.3 cm/sec PA V2 max: 64.5 cm/sec TR max antwon: 264.0 cm/sec LV V1 max P.5 mmHg PA V2 mean: 50.9 cm/sec TR max P.9 mmHg LV V1 mean P.6 mmHg LV V1 mean: 59.3 cm/sec LV V1 VTI: 16.3 cm ECHO/Echo Complete W/ Contrast Interpretation Summary Normal left ventricular size. Mildly increased left ventricular wall thickness. Normal LVEF with estimated ejection fraction of 55 to 60%. No regional wall motion abnormalities. Indeterminate diastolic function due to elevated LA pressure secondary to mitral valve stenosis. Mildly increased right ventricular size, normal wall thickness, preserved function. Not well-visualized bioprosthetic valve. 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 Bileaflet diffuse mitral valve thickening with heavy calcification in the posterior mitral leaflet and mild mitral stenosis by Doppler measurements. Ordering Physician: Donnell Mendez Referring Physician: Abby Mcclellan Performed By: Jennifer Mays, LYNN, RVT 02/26/25 1313 Date _ Ahmad (more content not included)... [facility] Work Phone: Electrocardiogram reportOrde red By: Ac Hubbard on 02-26-2025 EKG study [facility] Cardi[facility] Services [address] [address] 12 Lead EKG 02/26/25 0211 MR#: [id number] Acct: [id number] Name: JENNIFER GONZALEZ Rep #:[id number] : 1950 74 From: Ac Hubbard MD Attending Dr: Dr. Candis Willson MD Status: ADM IN Ordering Dr: Epi Lynch DO Date: 5 Location: ICU Sex: F C Admitted: 02/26/25 Test Reason : TACHY Blood Pressure : */* mmHG Vent. Rate : 186 BPM Atrial Rate : * BPM P-R Int : * ms QRS Dur : 128 ms QT Int : 248 ms P-R-T Axes : * 99 -40 degrees QTcB Int : 436 ms Critical Test Result: High HR atrial flutter with rapid response Right bundle branch block T wave abnormality, consider inferior ischemia Abnormal ECG When compared with ECG of 25-Feb-2025 20:51, MANUAL COMPARISON REQUIRED DATA IS UNCONFIRMED Confirmed by AC HUBBARD MD ([id number]), image editor MOUNIKA SANABRIA ([id number]) on 02/26/2025 10:59:39 AM Referred By: Argueta Confirmed By: AC HUBBARD MD 02/26/25 1059 Date _ Ac Hubbard MD CC: Dr. Abby Mcclellan MD; Dr. Candis Willson MD; Dr. Epi Lynch DO ~ Signed [facility] Work Phone: Folate [Mass/volume] in Seru m or PlasmaOrdered By: Doug Alonso on 02-26-2025 Folate [Mass/Vol] 8.82 ng/mL 4.60-34.80 [facility] Comment on above: Hemolysis, Results w ill be affected, Requires Recollection. Folates,Serum (Folic Acid)on 02-26-2025 FOLATES,SERUM 8.82 ng/mL Normal 4.60-34.80 [facility] Comment on above: Result Comment: Hemo lysis, Results will be affected, Requires Recollection. Performed By: #### L 503.6005, L506.0200 ####[facility] [address] [place], [place], [id number] H AND P Exam - Hospitaliston 02-26-2025 H&P Exam - Hospitalist Normal [facility] Hemoglobin A1con 02-26-2025 HbA1c (Bld) [Mass fraction] 8.6 % High <=5.6 [facility] Comment on above: Result Comment: Norm al < 5.7 % Prediabetic 5.7 - 6.4 % Diabetic >or= 6.5 % Please note range changes. Performed By: #### L 505.5000, L501.9985 ####[facility] [address] [place], [place], [address] Hemoglobin A1c percentageOrd ered By: Doug Alonso on 02-26-2025 HbA1c (Bld) [Mass fraction] 8.6 % High <5.7 [facility] Comment on above: Normal < 5.7 % Predi abetic 5.7 - 6.4 % Diabetic >or= 6.5 % Please note range changes. L501.4021on 02-26-2025 Trop T High Sen 31 ng/L High <=14 [facility] Comment on above: Performed By: #### L 501.4021 ####[facility] [address] [place], [place], [address] LDL calc ser/plasOrdered By: Doug Alonso on 02-26-2025 Cholesterol in LDL [Mass/Vol] 55 mg/dL [facility] Comment on above: Masjawvmws=873-501 m g/dL & Higher Xfkg=307 mg/dL or greaterFriedwald Equation for LDL-C Laboratory - Chemistry and C hemistry - challengeOrdered By: Doug Alonso on 02-26-2025 AST [Catalytic activity/Vol] 31 U/L <32 [facility] Lactic Acidon 02-26-2025 Lactate [Moles/Vol] 2.3 mmol/L Invalid Interpretation Code 0.0-2.0 [facility] Comment on above: Result Comment: Crit ical Result(s) Called at: 02/26/2025-07:40 by: Jessica to Shavonne Garber.??Results read back by same. Performed By: #### L 503.6005 ####[facility] [address] [place], [place], [address] Lactate [Moles/Vol] 2.2 mmol/L Invalid Interpretation Code 0.0-2.0 [facility] Comment on above: Order Comment: Comme nts: if result >2, system reflex orders 2nd test @ 4hrsY Result Comment: Crit ical Result(s) Called at: 0231 by: AKIN HANDLEY TO RNMKUFNER.??Results read back by same. Performed By: #### L 503.6005, L506.0200 ####[facility] [address] [place], [place], [address] Lactic acid measurementOrder ed By: Doug Alonso on 02-26-2025 Lactate [Moles/Vol] 2.3 mmol/L High 0.0-2.0 [facility] Comment on above: Critical Result(s) C alled at: 02/26/2025-07:40 by: Juancarlos Hall to Shavonne Garber. Results read back by same. Lipid Profileon 02-26-2025 CHOL:HDL 3.69 Normal [facility] Comment on above: Performed By: #### L 500.4100, L500.4050 ####[facility] [address] [place], [address] Cholesterol [Mass/Vol] 103 mg/dL Normal <=200 [facility] Comment on above: Result Comment: Chol esterol level, Desirable <200 mg/dLBorderline high cholesterol 200-239 mg/dLHigh cholesterol >=240 mg/dLRecommendations of the NCEP Adult Treatment Panel for thefollowing risk-cutoff thresholds for the [place] [facility] [place]. Performed By: #### L 500.4100, L500.4050 ####[facility] [address] [place], [address] Cholesterol in HDL [Mass/Vol] 28 mg/dL Low [facility] Comment on above: Result Comment: Michelle onal Cholesterol Education Program (NCEP) guidelines:<40 mg/dL: Low HDL-cholesterol (major risk factor for CHD)>= 60 mg/dL: High HDL-cholesterol (negative risk factor forCHD)HDL-cholesterol is affected by a number of factors, e.g.smoking, exercise, hormones, sex and age. Performed By: #### L 500.4100, L500.4050 ####[facility] [address] [facility] [address] Cholesterol in LDL [Mass/Vol] 55 mg/dL Normal [facility] Comment on above: Result Comment: Bord tpesov=344-275 mg/dL Higher Yvcm=053 mg/dL or greaterFriedwald Equation for LDL-C Performed By: #### L 500.4100, L500.4050 ####[facility] [address] [place], [address] Cholesterol in VLDL [Mass/Vol] 20 mg/dL Normal 5-40 [facility] Comment on above: Performed By: #### L 500.4100, L500.4050 ####[facility] [address] [place], [address] Triglyceride [Mass/Vol] 100 mg/dL Normal [facility] Comment on above: Result Comment: The drugs N-Acetylcysteine and Metamizole may falselydepress this assay.Normal range: <150 mg/dLBorderline High: 150-199 mg/dLHigh: 200-499 mg/dLVery High: >500 mg/dL Performed By: #### L 500.4100, L500.4050 ####[facility] [address] [place], [place], [id number] Measurement, pHOrdered By: Jerry Alonso on 02-26-2025 pH (Unsp spec) 7.45 [pH] 7.35-7.45 [facility] No Panel InformationOrdered By: Doug Alonso on 02-26-2025 Blood Gas Sample Site R Radial [facility] Blood Gas Specimen Type ART [facility] Blood Gas Vent Mode Not entered [facility] Oxygen Delivery Device Room Air [facility] Urine Buprenorphine Qualitative Negative < 200 ng/mL [facility] Urine Oxycodone Screen Negative < 100 ng/mL [facility] Quantitative urine opiates m easurementOrdered By: Doug Alonso on 02-26-2025 Opiates Ql (U) Negative < 300 ng/mL [facility] RESPIRATORY PANEL MOLECULARo n 02-26-2025 RP PANEL Normal [facility] Comment on above: Performed By: #### M 100.632 ####[facility] [address] [place], [place], [address] Screening total cholesterol/ high density lipoprotein (HDL) cholesterol ratioOrdered By: Doug Alonso on 02-26-2025 Cholesterol.total/Choles terol in HDL [Mass ratio] 3.69 {ratio} [facility] Screening urine fentanyl yash surementOrdered By: Doug Alonso on 02-26-2025 fentaNYL Screen Ql (U) Negative [facility] Serum globulin measurementOr dered By: Doug Alonso on 02-26-2025 Globulin (S) [Mass/Vol] 2.0 g/dL Low 2.2-4.2 [facility] Serum or plasma alanine martinez otransferase (ALT) measurementOrdered By: Doug Alonso on 02-26-2025 ALT [Catalytic activity/Vol] 30 U/L <35 [facility] Serum or plasma albumin wendi urement (mass/volume)Ordered By: Doug Alonso on 02-26-2025 Albumin [Mass/Vol] 3.5 g/dL 3.4-4.8 [facility] Serum or plasma albumin/glob ulin mass ratioOrdered By: Doug Alonso on 02-26-2025 Albumin/Globulin [Mass ratio] 1.8 {ratio} 0.9-2.4 [facility] Serum or plasma alkaline vicente sphatase measurementOrdered By: Doug Alonso on 02-26-2025 ALP [Catalytic activity/Vol] 43 U/L 35-104 [facility] Serum or plasma cholesterol in HDL measurement (mass/volume)Ordered By: Doug Alonso on 02-26-2025 Cholesterol in HDL [Mass/Vol] 28 mg/dL Low >40 [facility] Comment on above: National Cholesterol Education Program (NCEP) guidelines:<40 mg/dL: Low HDL-cholesterol (major risk factor for CHD)>= 60 mg/dL: High HDL-cholesterol (negative risk factor for CHD)HDL-cholesterol is affected by a number of factors, e.g. smoking, exercise, hormones, sex and age. Serum or plasma cholesterol measurement (mass/volume)Ordered By: Doug Alonso on 02-26-2025 Cholesterol [Mass/Vol] 103 mg/dL <201 [facility] Comment on above: Cholesterol level, D esirable <200 mg/dLBorderline high cholesterol 200-239 mg/dLHigh cholesterol >=240 mg/dLRecommendations of the NCEP Adult Treatment Panel for the following risk-cutoff thresholds for the [place] population. Serum or plasma ethanol wendi urement (mass/volume)Ordered By: Doug Alonso on 02-26-2025 Ethanol [Mass/Vol] mg/dL <10.1 [facility] Comment on above: This test is for med ical purposes only. The legal definition of intoxication varies according to local law. TSH DL <= 0.005 mIU/L QnOrde red By: Doug Alonso on 02-26-2025 TSH Qn 1.010 uIU/mL 0.300-4.200 [facility] Thyroid Stim Hormone (TSH)on 02-26-2025 TSH 1.010 uIU/mL Normal 0.300-4.200 [facility] Comment on above: Performed By: #### L 501.9100, L501.6901, L501.9520, L503.0106 ####[facility] [address] [facility] [id number] Total carbon dioxide measure mentOrdered By: Doug Alonso on 02-26-2025 CO2 [Moles/Vol] 20 mmol/L [facility] Total proteinOrdered By: Madi Alonso on 02-26-2025 Protein [Mass/Vol] 5.5 g/dL Low 5.9-8.4 [facility] Triglycerides measurementOrd ered By: Doug Alonso on 02-26-2025 Triglyceride [Mass/Vol] 100 mg/dL <199 [facility] Comment on above: The drugs N-Acetylcy steine and Metamizole may falsely depress this assay. Normal range: <150 mg/dLBorderline High: 150-199 mg/dLHigh: 200-499 mg/dLVery High: >500 mg/dL Troponin T HS 2 HRon 025 Trop T High Sen 38 ng/L High <=14 [facility] Comment on above: Performed By: #### L 499.0042 ####[facility] [address] [place] [id number] Troponin T HS 4 HRon 025 Trop T High Sen 41 ng/L High <=14 [facility] Comment on above: Performed By: #### L 499.0043 ####[facility] [address] [facility] [address] [place], [place], [id number] Troponin T.cardiac [Mass/vol ume] in Serum or Plasma by High sensitivity methodOrdered By: Doug Alonso on 02-26-2025 Troponin T.cardiac High sensitivity method [Mass/Vol] 41 ng/L High <14 [facility] Troponin T.cardiac High sensitivity method [Mass/Vol] 38 ng/L High <14 [facility] Troponin T.cardiac High sensitivity method [Mass/Vol] 31 ng/L High <14 [facility] Urine Drug Screen (VISTA)on 02-26-2025 AMPHETAMINES Negative Normal <1000 ng/mL [facility] Comment on above: Performed By: #### L 505.5000, L501.85 ####[facility] [address] [place], [address] BARBITIURATES Negative Normal < 200 ng/mL [facility] Comment on above: Performed By: #### L 505.5000, L5.85 ####[facility] [address] [place], [address] BENZODIAZIPINE Negative Normal < 200 ng/mL [facility] Comment on above: Performed By: #### L 505.5000, L5.9984 ####[facility] [address] [place], [address] BUP Ur Drug Scr Negative Normal < 200 ng/mL [facility] Comment on above: Performed By: #### L 505.5000, L5.9984 ####[facility] [address] [place], [address] COCAINE Negative Normal < 300 ng/mL [facility] Comment on above: Performed By: #### L 505.5000, L5.85 ####[facility] [address] [place], [address] Fentanyl Negative Normal [facility] Comment on above: Performed By: #### L 505.5000, L5.85 ####[facility] [address] [place], [address] METHADONE Negative Normal < 300 ng/mL [facility] Comment on above: Performed By: #### L 505.5000, L5.85 ####[facility] [address] [place], [address] OPIATES Negative Normal < 300 ng/mL [facility] Comment on above: Performed By: #### L 505.5000, L5.85 ####[facility] [address] [place], [address] OXYCODONE Negative Normal < 100 ng/mL [facility] Comment on above: Performed By: #### L 505.5000, L501.9985 ####[facility] [address] [place], [address] PCP Negative Normal < 25 ng/mL [facility] Comment on above: Performed By: #### L 505.5000, L501.9985 ####[facility] [address] [place], [address] THC Negative Normal < 50 ng/mL [facility] Comment on above: Performed By: #### L 505.5000, L501.9985 ####[facility] [address] [place], [address] Urine benzodiazepine levelOr dered By: Doug Alonso on 02-26-2025 Benzodiazepines Ql (U) Negative < 200 ng/mL [facility] Urine cocaine levelOrdered B y: Doug Alonso on 02-26-2025 Cocaine Ql (U) Negative < 300 ng/mL [facility] Urine qvphs-9-folrvobnfucpqp abinol (THC) measurementOrdered By: Doug Alonso on 02-26-2025 Cannabinoids Screen Ql (U) Negative < 50 ng/mL [facility] Urine phencyclidine (PCP) de tectionOrdered By: Doug Alonso on 02-26-2025 Phencyclidine Ql (U) Negative < 25 ng/mL [facility] Vitamin B12on 02-26-2025 Cobalamin (Vitamin B12) [Mass/Vol] 378 pg/mL Normal 180-914 [facility] Comment on above: Performed By: #### L 501.9100, L501.6901, L501.9520, L503.0106 ####[facility] [address] [place], [address] Vitamin B12 ser/plasOrdered By: Doug Alonso on 02-26-2025 Cobalamin (Vitamin B12) [Mass/Vol] 378 pg/mL 180-914 [facility] 12 Lead EKGon 02-25-2025 12 Lead EKG Normal [facility] 12 Lead EKG Normal [facility] Absolute lymphocyte countOrd ered By: Epi Lynch on 02-25-2025 Lymphocytes Auto (Unsp spec) [#/Vol] 0.68 10*3/uL Low 0.83-4.51 [facility] Absolute neutrophil countOrd ered By: Epi Lynch on 02-25-2025 Neutrophils (Bld) [#/Vol] 10.5 10*3/uL High 2.0-7.7 [facility] Activated partial thrombopla stin time (aPTT) in platelet poor plasma by coagulation aOrdered By: Epi Lnych on 02-25-2025 aPTT Coag (PPP) [Time] 30.0 s 24.1-36.2 [facility] Anion gap in Serum or Plasma Ordered By: Epi Lynch on 02-25-2025 Anion gap [Moles/Vol] 13 mmol/L 5-15 [facility] Automated lymphocyte count a s percentage of total leukocytesOrdered By: Epi Lynch on 02-25-2025 Lymphocytes/100 WBC Auto (Unsp spec) 5.8 % Low 19-41 [facility] BUN/creatinine ratioOrdered By: Epi Lynch on 02-25-2025 Urea nitrogen/Creatinine [Mass ratio] 20.8 mg/mg High 10-20 [facility] Basophil percentageOrdered B y: Epi Lynch on 02-25-2025 Basophils/100 WBC (Bld) 0.9 % 0-1 [facility] Bilirubin Test strip Ql (U)O rdered By: Epi Lynch on 02-25-2025 Bilirubin Ql (U) Negative Negative [facility] Bilirubin, totalOrdered By: Epi Lynch on 02-25-2025 Bilirubin [Mass/Vol] 1.33 mg/dL High 0.00-1.30 [facility] Blood cultureOrdered By: Rubio Lynch on 02-25-2025 Bacteria identified Cx Nom (Bld) Streptococcus agalactiae (B) Abnormal [facility] Bacteria identified Cx Nom (Bld) Streptococcus agalactiae (B) Abnormal [facility] Brain/Head without Contrasto n 02-25-2024 Brain/Head without Contrast Normal [facility] CBC W/Diff, Automatedon 07-3 -2024 Absolute Lymph 0.68 X10 3/uL Low 0.83-4.51 [facility] Comment on above: Performed By: #### L 500.4050, L100.0100, M200.1000, L300.4310, L503.6005, M100.636, L300.3900 ####[facility] [address] [place], [address] Absolute Neut 10.5 X10 3/uL High 2.0-7.7 [facility] Comment on above: Performed By: #### L 500.4050, L100.0100, M200.1000, L300.4310, L503.6005, M100.636, L300.3900 ####[facility] [address] [place], [address] Basophils/100 WBC (Bld) 0.9 % Normal 0-1 [facility] Comment on above: Performed By: #### L 500.4050, L100.0100, M200.1000, L300.4310, L503.6005, M100.636, L300.3900 ####[facility] [address] [place], [address] Eosinophils/100 WBC (Bld) 0.0 % Normal 0-5 [facility] Comment on above: Performed By: #### L 500.4050, L100.0100, M200.1000, L300.4310, L503.6005, M100.636, L300.3900 ####[facility] [address] [place], [address] Erythrocyte distribution width (RBC) [Ratio] 13.2 % Normal 11.6-14.6 [facility] Comment on above: Performed By: #### L 500.4050, L100.0100, M200.1000, L300.4310, L503.6005, M100.636, L300.3900 ####[facility] [address] [place], [address] Hematocrit (Bld) [Volume fraction] 42.3 % Normal 37-47 [facility] Comment on above: Performed By: #### L 500.4050, L100.0100, M200.1000, L300.4310, L503.6005, M100.636, L300.3900 ####[facility] [address] [place], [address] Hemoglobin (Bld) [Mass/Vol] 14.3 g/dL Normal 12.0-15.0 [facility] Comment on above: Performed By: #### L 500.4050, L100.0100, M200.1000, L300.4310, L503.6005, M100.636, L300.3900 ####[facility] [address] [place], [address] IG% 0.600 Normal 0.0-0.9 [facility] Comment on above: Result Comment: IG% - Immature Granulocytes (promyelocytes, myelocytes andmetamyelocytes) > 1% indicates that a LEFT SHIFT is Present. Performed By: #### L 500.4050, L100.0100, M200.1000, L300.4310, L503.6005, M100.636, L300.3900 ####[facility] [address] [place], [address] Lymphocytes/100 WBC (Bld) 5.8 % Low 19-41 [facility] Comment on above: Performed By: #### L 500.4050, L100.0100, M200.1000, L300.4310, L503.6005, M100.636, L300.3900 ####[facility] [address] [place], [address] MCH (RBC) [Entitic mass] 31.2 pg Normal 27.0-32.0 [facility] Comment on above: Performed By: #### L 500.4050, L100.0100, M200.1000, L300.4310, L503.6005, M100.636, L300.3900 ####[facility] [address] [place], [address] MCHC (RBC) [Mass/Vol] 33.8 g/dL Normal 32-36 [facility] Comment on above: Performed By: #### L 500.4050, L100.0100, M200.1000, L300.4310, L503.6005, M100.636, L300.3900 ####[facility] [address] [place], [address] MCV (RBC) [Entitic vol] 92.2 fL Normal 81-99 [facility] Comment on above: Performed By: #### L 500.4050, L100.0100, M200.1000, L300.4310, L503.6005, M100.636, L300.3900 ####[facility] [address] [place], [address] Monocytes/100 WBC (Bld) 3.0 % Normal 0-10 [facility] Comment on above: Performed By: #### L 500.4050, L100.0100, M200.1000, L300.4310, L503.6005, M100.636, L300.3900 ####[facility] [address] [place], [address] Neutrophils/100 WBC (Bld) 89.7 % High 47-70 [facility] Comment on above: Performed By: #### L 500.4050, L100.0100, M200.1000, L300.4310, L503.6005, M100.636, L300.3900 ####[facility] [address] [place], [address] Nucleated RBC (Bld) [#/Vol] 0 10*3/uL Normal 0-5 [facility] Comment on above: Performed By: #### L 500.4050, L100.0100, M200.1000, L300.4310, L503.6005, M100.636, L300.3900 ####[facility] [address] [place], [address] Platelet mean volume (Bld) [Entitic vol] 11.4 fL Normal 6.2-12.0 [facility] Comment on above: Performed By: #### L 500.4050, L100.0100, M200.1000, L300.4310, L503.6005, M100.636, L300.3900 ####[facility] [address] [place], [address] Platelets (Bld) [#/Vol] 115 10*3/uL Low 150-450 [facility] Comment on above: Performed By: #### L 500.4050, L100.0100, M200.1000, L300.4310, L503.6005, M100.636, L300.3900 ####[facility] [address] [place], [address] RBC (Bld) [#/Vol] 4.59 10*6/uL Normal 4.2-5.4 [facility] Comment on above: Performed By: #### L 500.4050, L100.0100, M200.1000, L300.4310, L503.6005, M100.636, L300.3900 ####[facility] [address] [place], [address] RDW SD 44.8 fl High 35.1-43.9 [facility] Comment on above: Performed By: #### L 500.4050, L100.0100, M200.1000, L300.4310, L503.6005, M100.636, L300.3900 ####[facility] [address] [place], [place], [id number] WBC (Bld) [#/Vol] 11.7 10*3/uL High 4.4-11.0 [facility] Comment on above: Performed By: #### L 500.4050, L100.0100, M200.1000, L300.4310, L503.6005, M100.636, L300.3900 ####[facility] [address] [place], [place], [id number] CT Chest, Abd, Pel w/Contras ton 02-25-2025 CT Chest, Abd, Pel w/Contrast Normal [facility] Carbon dioxide, total [Moles /volume] in Central venous bloodOrdered By: Epi Lynch on 02-25-2025 CO2 [Moles/Vol] 22.3 mmol/L 21.0-32.0 [facility] Chest 1 View (Portable)on Chest 1 View (Portable) Normal [facility] Chloride assayOrdered By: Payam Lynch on 02-25-2025 Chloride [Moles/Vol] 99 mmol/L 98-108 [facility] Comprehensive Metabolic Prof ilon 02-25-2025 Albumin [Mass/Vol] 4.1 g/dL Normal 3.4-4.8 [facility] Comment on above: Performed By: #### L 500.4050, L100.0100, M200.1000, L300.4310, L503.6005, M100.636, L300.3900 ####[facility] [address] [place], [place], [id number] Albumin/Globulin [Mass ratio] 1.5 {ratio} Normal 0.9-2.4 [facility] Comment on above: Performed By: #### L 500.4050, L100.0100, M200.1000, L300.4310, L503.6005, M100.636, L300.3900 ####[facility] [address] [place], [address] ALK PHOS 65 U/L Normal 35-104 [facility] Comment on above: Performed By: #### L 500.4050, L100.0100, M200.1000, L300.4310, L503.6005, M100.636, L300.3900 ####[facility] [address] [place], [address] ALT [Catalytic activity/Vol] 27 U/L Normal <=34 [facility] Comment on above: Performed By: #### L 500.4050, L100.0100, M200.1000, L300.4310, L503.6005, M100.636, L300.3900 ####[facility] [address] [place], [address] AST [Catalytic activity/Vol] 21 U/L Normal <=31 [facility] Comment on above: Performed By: #### L 500.4050, L100.0100, M200.1000, L300.4310, L503.6005, M100.636, L300.3900 ####[facility] [address] [place], [address] Bilirubin [Mass/Vol] 1.33 mg/dL High 0.00-1.30 [facility] Comment on above: Performed By: #### L 500.4050, L100.0100, M200.1000, L300.4310, L503.6005, M100.636, L300.3900 ####[facility] [address] [place], [address] BUN/CRE 20.8 RATIO High 10-20 [facility] Comment on above: Performed By: #### L 500.4050, L100.0100, M200.1000, L300.4310, L503.6005, M100.636, L300.3900 ####[facility] [address] [place], [address] Calcium [Mass/Vol] 9.6 mg/dL Normal 7.6-11.0 [facility] Comment on above: Performed By: #### L 500.4050, L100.0100, M200.1000, L300.4310, L503.6005, M100.636, L300.3900 ####[facility] [address] [place], [address] Chloride [Moles/Vol] 99 mmol/L Normal 98-108 [facility] Comment on above: Performed By: #### L 500.4050, L100.0100, M200.1000, L300.4310, L503.6005, M100.636, L300.3900 ####[facility] [address] [place], [address] CO2 [Moles/Vol] 22.3 mmol/L Normal 21.0-32.0 [facility] Comment on above: Performed By: #### L 500.4050, L100.0100, M200.1000, L300.4310, L503.6005, M100.636, L300.3900 ####[facility] [address] [place], [address] Creatinine [Mass/Vol] 1.06 mg/dL Normal 0.70-1.20 [facility] Comment on above: Performed By: #### L 500.4050, L100.0100, M200.1000, L300.4310, L503.6005, M100.636, L300.3900 ####[facility] [address] [place], [address] ECRCL 50.25 ml/min Normal 50-250 [facility] Comment on above: Performed By: #### L 500.4050, L100.0100, M200.1000, L300.4310, L503.6005, M100.636, L300.3900 ####[facility] [address] [place], [address] GAP 13 Normal 5-15 [facility] Comment on above: Performed By: #### L 500.4050, L100.0100, M200.1000, L300.4310, L503.6005, M100.636, L300.3900 ####[facility] [address] [place], [address] GFR/1.73 sq M.predicted among non-blacks MDRD (S/P/Bld) [Vol rate/Area] 54 mL/min/{1.73_m2} Low >60 [facility] Comment on above: Result Comment: mL/m in/1.73m2 CKD-EPI Creatinine Equation (2020) Performed By: #### L 500.4050, L100.0100, M200.1000, L300.4310, L503.6005, M100.636, L300.3900 ####[facility] [address] [place], [address] Globulin (S) [Mass/Vol] 2.6 g/dL Normal 2.2-4.2 [facility] Comment on above: Performed By: #### L 500.4050, L100.0100, M200.1000, L300.4310, L503.6005, M100.636, L300.3900 ####[facility] [address] [place], [address] Glucose [Mass/Vol] 279 mg/dL High 70-99 [facility] Comment on above: Performed By: #### L 500.4050, L100.0100, M200.1000, L300.4310, L503.6005, M100.636, L300.3900 ####[facility] [address] [place], [address] Potassium [Moles/Vol] 4.5 mmol/L Normal 3.3-5.1 [facility] Comment on above: Performed By: #### L 500.4050, L100.0100, M200.1000, L300.4310, L503.6005, M100.636, L300.3900 ####[facility] [address] [place], [address] Sodium [Moles/Vol] 134 mmol/L Normal 133-145 [facility] Comment on above: Performed By: #### L 500.4050, L100.0100, M200.1000, L300.4310, L503.6005, M100.636, L300.3900 ####[facility] [address] [place], [address] T PROT 6.7 g/dL Normal 5.9-8.4 [facility] Comment on above: Performed By: #### L 500.4050, L100.0100, M200.1000, L300.4310, L503.6005, M100.636, L300.3900 ####[facility] [address] [place], [address] Urea nitrogen [Mass/Vol] 22 mg/dL High 4-19 [facility] Comment on above: Performed By: #### L 500.4050, L100.0100, M200.1000, L300.4310, L503.6005, M100.636, L300.3900 ####[facility] [address] [place], [address] Emergency Department Summary on 02-25-2025 Emergency Department Summary Normal [facility] Eosinophil percentageOrdered By: Epi Lynch on 02-25-2025 Eosinophils/100 WBC (Bld) 0.0 % 0-5 [facility] Erythrocyte distribution wid th ratioOrdered By: Epi Lynch on 02-25-2025 Erythrocyte distribution width (RBC) [Ratio] 13.2 % 11.6-14.6 [facility] Erythrocyte distribution wid th standard deviationOrdered By: Epi Lynch on 02-25-2025 Erythrocyte distribution width (RBC) [Ratio] 44.8 fl High 35.1-43.9 [facility] Glomerular filtration rate ( GFR) estimation/1.73 sq m using serum, plasma, or whole bOrdered By: Epi Lynch on 02-25-2025 GFR/1.73 sq M.predicted among non-blacks MDRD (S/P/Bld) [Vol rate/Area] 54 mL/min/{1.73_m2} Low >60 [facility] Comment on above: mL/min/1.73m2 CKD-EP I Creatinine Equation (2020) Hematocrit Auto (Bld) [Volum e fraction]Ordered By: Epi Lynch on 02-25-2025 Hematocrit (Bld) [Volume fraction] 42.3 % 37-47 [facility] Hemoglobin measurementOrdere d By: Epi Lynch on 02-25-2025 Hemoglobin (Bld) [Mass/Vol] 14.3 g/dL 12.0-15.0 [facility] Immature granulocytes/100 WB C Auto (Bld)Ordered By: Epi Lynch on 02-25-2025 Immature granulocytes/100 WBC (Bld) 0.600 % 0.0-0.9 [facility] Comment on above: IG% - Immature Granu locytes (promyelocytes, myelocytes and metamyelocytes) > 1% indicates that a LEFT SHIFT is Present. Influenza virus A and B and SARS-CoV-2 (COVID-19) and Respiratory syncytial virus RNAOrdered By: Epi Lynch on 02-25-2025 SARS-CoV-2 (COVID-19) RNA GIDEON+probe Ql (Unsp spec) [facility] International normalized rat io (INR) calculationOrdered By: Epi Lynch on 02-25-2025 INR Coag (Bld) [Relative time] 1.2 {INR} [facility] Ketones Test strip Ql (U)Ord ered By: Epi Lynch on 02-25-2025 Ketones Ql (U) Negative Negative [facility] Laboratory - Chemistry and C hemistry - challengeOrdered By: Epi Lynch on 02-25-2025 AST [Catalytic activity/Vol] 21 U/L <32 [facility] Lactic Acidon 02-25-2025 Lactate [Moles/Vol] 2.2 mmol/L Invalid Interpretation Code 0.0-2.0 [facility] Comment on above: Order Comment: Y Result Comment: Crit ical Result(s) Called at: 2146 by:??ROYCE TRUONG Results read back by same. Performed By: #### L 500.4050, L100.0100, M200.1000, L300.4310, L503.6005, M100.636, L300.3900 ####[facility] [address] [place], [address] Lactic acid measurementOrder ed By: Epi Lynch on 02-25-2025 Lactate [Moles/Vol] 2.2 mmol/L High 0.0-2.0 [facility] Comment on above: Critical Result(s) C alled at: 2146 by: ROYCE SALDAÑA TO VERO TRUONG Results read back by same. M100.678on 02-25-2025 M100.678 Pending SARS-CoV-2 (COVID 19) Negative INFLUENZA A Negative INFLUENZA B Negative RSV PCR Negative Normal [facility] Comment on above: Performed By: #### M 100.678 ####[facility] [address] [place], [address] MCV (mean corpuscular volume ) determinationOrdered By: Epi Lynch on 02-25-2025 MCV (RBC) [Entitic vol] 92.2 fL 81-99 [facility] Mean corpuscular hemoglobin (MCH) determinationOrdered By: Epi Lynch on 02-25-2025 MCH (RBC) [Entitic mass] 31.2 pg 27.0-32.0 [facility] Mean corpuscular hemoglobin concentration (MCHC) determinationOrdered By: Epi Lynch on 02-25-2025 MCHC (RBC) [Mass/Vol] 33.8 g/dL 32-36 [facility] Mean platelet volume determi nationOrdered By: Epi Lynch on 02-25-2025 Platelet mean volume (Bld) [Entitic vol] 11.4 fL 6.2-12.0 [facility] Microscopic analysis of urin e for red blood cells (RBC)Ordered By: Epi Lynch on 02-25-2025 Microscopic analysis of urine for red blood cells (RBC) 0-5 SEEN /hpf 0-5 [facility] Monocyte percentageOrdered B y: Epi Lynch on 02-25-2025 Monocytes/100 WBC (Bld) 3.0 % 0-10 [facility] Mucus LM Ql (Urine sed)Order ed By: Epi Lynch on 02-25-2025 Mucus Ql (Urine sed) 0 SEEN /hpf [facility] Neutrophil percentageOrdered By: Epi Lynch on 02-25-2025 Neutrophils/100 WBC (Bld) 89.7 % High 47-70 [facility] Nitrite Test strip Ql (U)Ord ered By: Epi Lynch on 02-25-2025 Nitrite Ql (U) Negative Negative [facility] Nucleated red blood cell per centageOrdered By: Epi Lynch on 02-25-2025 Nucleated RBC/100 WBC (Bld) [Ratio] 0 % 0-5 [facility] Organism identificationOrder ed By: Epi Lynch on 02-25-2025 Microorganism identified Cx Nom (Unsp spec) Streptococcus agalactiae (B) Abnormal [facility] Partial Thromboplast Timeon 02-25-2025 aPTT Coag (Bld) [Time] 30.0 s Normal 24.1-36.2 [facility] Comment on above: Performed By: #### L 500.4050, L100.0100, M200.1000, L300.4310, L503.6005, M100.636, L300.3900 ####[facility] [address] [place], [place], [address] Platelet countOrdered By: Payam Lynch on 02-25-2025 Platelets (Bld) [#/Vol] 115 10*3/uL Low 150-450 [facility] Potassium measurement (mass/ volume)Ordered By: Epi Lynch on 02-25-2025 Potassium (Unsp spec) [Mass/Vol] 4.5 mmol/L 3.3-5.1 [facility] Protein Test strip Ql (U)Ord ered By: Epi Lynch on 02-25-2025 Protein Ql (U) 30 mg/dl High Negative [facility] Prothrombin Time w/INRon INR Coag (PPP) [Relative time] 1.2 {INR} Normal [facility] Comment on above: Performed By: #### L 500.4050, L100.0100, M200.1000, L300.4310, L503.6005, M100.636, L300.3900 ####[facility] [address] [place], [place], [id number] PT Coag (PPP) [Time] 15.5 s High 11.7-14.9 [facility] Comment on above: Performed By: #### L 500.4050, L100.0100, M200.1000, L300.4310, L503.6005, M100.636, L300.3900 ####[facility] [address] [place], [place], [address] Prothrombin timeOrdered By: Epi Lynch on 02-25-2025 PT Coag (PPP) [Time] 15.5 s High 11.7-14.9 [facility] RBC Auto (Bld) [#/Vol]Ordere d By: Epi Lynch on 02-25-2025 RBC (Bld) [#/Vol] 4.59 10*6/uL 4.2-5.4 [facility] Respiratory pathogens detect ion panel by molecular detection methodOrdered By: Epi Lynch on 02-25-2025 Respiratory pathogens DNA and RNA panel GIDEON+probe (Resp) [facility] Serum creatinine measurement (mass/volume)Ordered By: Epi Lynch on 02-25-2025 Creatinine [Mass/Vol] 1.06 mg/dL 0.70-1.20 [facility] Serum globulin measurementOr dered By: Epi Lynch on 07-31-2025 Globulin (S) [Mass/Vol] 2.6 g/dL 2.2-4.2 [facility] Serum glucose measurement (m ass/volume)Ordered By: Epi Lynch on 02-25-2025 Glucose [Mass/Vol] 279 mg/dL High 70-99 [facility] Serum or plasma alanine martinez otransferase (ALT) measurementOrdered By: Epi Lynch on 02-25-2025 ALT [Catalytic activity/Vol] 27 U/L <35 [facility] Serum or plasma albumin wendi urement (mass/volume)Ordered By: Epi Lynch on 02-25-2025 Albumin [Mass/Vol] 4.1 g/dL 3.4-4.8 [facility] Serum or plasma albumin/glob ulin mass ratioOrdered By: Epi Lynch on 02-25-2025 Albumin/Globulin [Mass ratio] 1.5 {ratio} 0.9-2.4 [facility] Serum or plasma alkaline vicente sphatase measurementOrdered By: Epi Lynch on 02-25-2025 ALP [Catalytic activity/Vol] 65 U/L 35-104 [facility] Serum or plasma calcium wendi urement (mass/volume)Ordered By: Epi Lynch on 02-25-2025 Calcium [Mass/Vol] 9.6 mg/dL 7.6-11.0 [facility] Serum or plasma urea nitroge n measurement (mass/volume)Ordered By: Epi Lynch on 02-25-2025 Urea nitrogen [Mass/Vol] 22 mg/dL High 4-19 [facility] Sodium levelOrdered By: Epi Lynch on 02-25-2025 Sodium [Moles/Vol] 134 mmol/L 133-145 [facility] Squamous epithelial cells de tection in urine sediment by light microscopyOrdered By: Epi Lynch on 02-25-2025 Epithelial cells.squamous LM Ql (Urine sed) 0-5 SEEN /hpf - [facility] Total proteinOrdered By: Rubio Lynch on 02-25-2025 Protein [Mass/Vol] 6.7 g/dL 5.9-8.4 [facility] Urinalysis, Completeon 02-25 EPI,SQUAMOUS 0-5 SEEN Normal - [facility] Comment on above: Order Comment: CLEAN CATCH Performed By: #### L 400.0001, M100.2200 ####[facility] [address] [place], [address] RBC 0-5 SEEN Normal 0-5 [facility] Comment on above: Order Comment: CLEAN CATCH Performed By: #### L 400.0001, M100.2200 ####[facility] [address] [place], [address] WBC 0-5 SEEN Normal 0-5 [facility] Comment on above: Order Comment: CLEAN CATCH Performed By: #### L 400.0001, M100.2200 ####[facility] [address] [place], [address] BACTERIA 0 SEEN Normal None Seen [facility] Comment on above: Order Comment: CLEAN CATCH Performed By: #### L 400.0001, M100.2200 ####[facility] [address] [place], [address] Mucus Ql (Urine sed) 0 SEEN Normal [facility] Comment on above: Order Comment: CLEAN CATCH Performed By: #### L 400.0001, M100.2200 ####[facility] [address] [place], [address] Urine clarityOrdered By: Rubio Lynch on 02-25-2025 Clarity (U) Sl. Cloudy Clear [facility] Urine color determinationOrd ered By: Epi Lynch on 02-25-2025 Color (U) Yellow Yellow [facility] Urine cultureOrdered By: Rubio Lynch on 02-25-2025 Bacteria identified Cx Nom (U) Positive Abnormal [facility] Bacteria identified Cx Nom (U) Streptococcus agalactiae (B) Abnormal [facility] Bacteria identified Cx Nom (U) Negative Abnormal [facility] Urine glucose detectionOrder ed By: Epi Lynch on 02-25-2025 Glucose Ql (U) 1000 mg/dl High Normal [facility] Urine leukocyte esterase det ection by dipstickOrdered By: Epi Lynch on 02-25-2025 Leukocyte esterase Test strip Ql (U) Negative Negative [facility] Urine pHOrdered By: Epi Lynch on 02-25-2025 pH (U) 7.0 [pH] 5.0 - 8.0 [facility] Urine sediment bacteria coun t by microscopy (number/high power field)Ordered By: Epi Lynch on 02-25-2025 Bacteria LM.HPF (Urine sed) [#/Area] 0 /[HPF] None Seen [facility] Urine specific gravity measu rementOrdered By: Epi Lynch on 02-25-2025 Specific gravity (U) [Rel density] 1.005 1.002-1.030 [facility] Urine urobilinogen measureme ntOrdered By: Epi Lynch on 02-25-2025 Urobilinogen Ql (U) Normal mg/dl Normal [facility] White blood cell (WBC) count Ordered By: Epi Lynch on 02-25-2025 WBC (Bld) [#/Vol] 11.7 10*3/uL High 4.4-11.0 [facility] White blood cell countOrdere d By: Epi Lynch on 02-25-2025 White blood cell count 0-5 SEEN /hpf 0-5 [facility] Cardiology Visit Reporton Cardiology Visit Report Normal [facility] Pacemaker Checkon 02-08-2025 Pacemaker Check Normal [facility] CNOVon 01-11-2025 CNOV Office Visit (INTMWS) JENNIFER GONZALEZ ([id number]) 1950 F Date Time Provider Department 01/11/25 11:20 AM KAMLESH ACOSTA INTOUSMANE During your visit today, we recorded the following information about you: Pulse Blood pressure Weight 108/minute 120/78 110.4 kg Kamlesh Acosta APRN.CNP 01/11/2025 12:32 PM Signed SUBJECTIVE Jennifer Gonzalez is a 74 year old female here today for a check up on her medical problems. Chief Complaint Patient presents with: Recheck: Oxempic was unable to tolerate the 0.5 mg as it did cause constipation but at 0.25 mg she is back to normal. HPI Jennifer Gonzalez is a 74 year old female. [...] - Uncontrolled E11.65 Insulin: Yes No current facility-administere d medications for this visit. ALLERGIES Allergen Reactions Lipitor [Atorvastat* Rash red itchy rash around neck--resolved after stopping med; hands "froze" with stiffness that started a week after taking a couple pills--resolving ACTIVE PROBLEM LIST Cardiac Pacemaker - 09/29/2024 Cognitive Impairment - 02/25/2024 Paf (Paroxysmal Atrial Fibrillation) ([facility]) - 12/07/2021 Comment: [facility] Nonrheumatic Aortic Valve Stenosis - 12/07/2021 Comment: [facility], echo [facility] Status Post Right Hip Replacement - 12/23/2019 Difficulty in Walking Involving Lower Leg Joint Acid Indigestion - 03/26/2016 Polycythemia, Secondary - 03/28/2011 Comment: This was abnormal, seen by , testing was normal. Generalized Osteoarthrosis, Involving Multiple Sites - 05/10/2008 Diabetes Mellitus ([facility]) - 10/20/2007 Hypertension Goal Bp (Blood Pressure) < 140/90 - 10/12/2005 Hyperlipidemia Associated With Type 2 Diabetes Mellitus ([facility]) - 10/12/2005 Class 3 Severe Obesity Due to Excess Calories With Body Mass Index (Bmi) of 45.0 to 49.9 in Adult ([facility]) Social History Tobacco Use Smoking status: Never [...] Refill: C[facility] (more content not included)... [facility]ENN[facility]ON[facility]ALE[facility] ([id number]) 1950 F Date Time Provider Department 01/07/25 ABBY MCCLELLAN INTMWS During your visit today, [...] rash around neck--resolved after stopping med; hands "froze" with stiffness that started a week after taking a couple pills--resolving Date Reviewed: 11/10/2024 Reviewed by: Kamlesh Acosta APRN.ROBOTIC MAINTENANCE TECHNICIAN - Fully Assessed Reason for Visit: Lab Orders [1688] Primary Visit Diagnosis:Type 2 diabetes mellitus with hyperglycemia, without long-term current use of insulin (HCC) [E11.65] Other Visit Diagnoses:Hyperlipid emia associated with type 2 diabetes mellitus (HCC) [...] Encounter Status:Closed by LORETTA GUERIN on 01/11/25 Normal [facility] CNOVon 11-10-2024 CNOV Office Visit (INTMWS) RADHA GONZALEZA ([id number]) 1950 F Date Time Provider Department 11/10/24 11:20 AM KAMLESH ACOSTA INTOUSMANE During your visit today, we recorded the following information about you: Pulse Blood pressure Weight 84/minute 128/74 108.8 kg Kamlesh Acosta APRN.ROBOTIC MAINTENANCE TECHNICIAN 11/10/2024 1:23 PM Signed SUBJECTIVE Jennifer Gonzalez is a 74 year old female here today for a check up on her medical problems. Chief Complaint Patient presents with: Recheck HPI Jennifer Gonzalez is a 74 year old female. [...] - Uncontrolled E11.65 Insulin: Yes No current facility-administere d medications for this visit. ALLERGIES Allergen Reactions Lipitor [Atorvastat* Rash red itchy rash around neck--resolved after stopping med; hands "froze" with stiffness that started a week after taking a couple pills--resolving ACTIVE PROBLEM LIST Cardiac Pacemaker - 09/29/2024 Cognitive Impairment - 02/25/2024 Paf (Paroxysmal Atrial Fibrillation) ([facility]) - 12/07/2021 Comment: [facility] Nonrheumatic Aortic Valve Stenosis - 12/07/2021 Comment: [facility], echo [facility] Status Post Right Hip Replacement - 12/23/2019 Difficulty in Walking Involving Lower Leg Joint Acid Indigestion - 03/26/2016 Polycythemia, Secondary - 03/28/2011 Comment: This was abnormal, seen by , testing was normal. Generalized Osteoarthrosis, Involving Multiple Sites - 05/10/2008 Diabetes Mellitus ([facility]) - 10/20/2007 Hypertension Goal Bp (Blood Pressure) < 140/90 - 10/12/2005 Hyperlipidemia Associated With Type 2 Diabetes Mellitus ([facility]) - 10/12/2005 Class 3 Severe Obesity Due to Excess Calories With Body Mass Index (Bmi) of 45.0 to 49.9 in Adult ([facility]) Social History Tobacco Use Smoking status: Never [...] (more content not included)... Normal [facility] CNOVon 09-29-2024 CNOV Office Visit (INTMWS) JENNIFER GONZALEZ ([id number]) 1950 F Date Time Provider Department 09/29/24 11:40 AM KAMLESH ACOSTA INTMWS During your visit today, we recorded the following information about you: Pulse Blood pressure Weight 96/minute 106/72 111.2 kg Kamlesh Acosta APRN.ROBOTIC MAINTENANCE TECHNICIAN 09/29/2024 1:05 PM Signed SUBJECTIVE Jennifer Gonzalez is a 74 year old female here today for a check up on her medical problems. Chief Complaint Patient presents with: Recheck: swelling in left arm compared to right No injury that she is aware and no pain HPI Jennifer Gonzalez is a 74 year old female. She is an established patient of Abby Mcclellan MD. Here today for routine follow up. S/p TAVR on 04/06/2024. Had her heart surgery, had a pacemaker placed the next day. Notes some mild edema in the left upper extremity, no pain, redness or tenderness. This has been slight since she is post pacemaker placement. Seeing [facility] for cardiology follow up. She had labs done 09/19. Jennifer Gonzalez is a 74 year old female [...] - Uncontrolled E11.65 Insulin: Yes No current facility-administere d medications for this visit. ALLERGIES Allergen Reactions Lipitor [Atorvastat* Rash red itchy rash around neck--resolved after stopping med; hands "froze" with stiffness that started a week after taking a couple pills--resolving ACTIVE PROBLEM LIST Cardiac Pacemaker - 09/29/2024 Cognitive Impairment - 02/25/2024 Paf (Paroxysmal Atrial Fibrillation) ([facility]) - 12/07/2021 Comment: [facility] Nonrheumatic Aortic Valve Stenosis - 12/07/2021 Comment: [facility], echo [facility] Status Post Right Hip Replacement - 12/23/2019 Difficulty in Walking Involving Lower Leg Joint Acid Indigestion - 03/26/2016 Polycythemia, Secondary - 03/28/2011 Comment: This was abnormal, seen by , testing was normal. Generalized Osteoarthrosis, Involving Multiple Sites - 05/10/2008 Diabetes Mellitus ([facility]) - 10/20/2007 Hypertension Goal Bp (Blood Pressure) < 140/90 - 10/12/2005 Hyperlipidemia Associated With Type 2 Diabetes Mellitus (Hcc) ([facility]) - 10/12/2005 Class 3 Severe Obesity Due to Excess Calories With Body Mass Index (Bmi) of 45.0 to 49.9 in Adult ([facility]) Social History Tobacco Use Smoking status: Never [...] muscle usage, prolonged expiration or respiratory distress. [place] (more content not included)... Normal [facility] ALBUMIN/CREATININE RATIO, UR INEon 09-19-2024 Albumin DL <= 20 mg/L (U) [Mass/Vol] mg/dL Normal [facility] Comment on above: Order Comment: Speci men Type: URINE SPECIMENOrdering Facility: [facility] Address: [address] [place] [address] Performed By: #### U ACR ####[facility] LABCLIA [id number] [place] [address] [place] Albumin/Creatinine (U) [Mass ratio] <13 Normal <30 [facility] Comment on above: Order Comment: Speci men Type: URINE SPECIMENOrdering Facility: [facility] Address: [address] [place] [address] Result Comment: Adul t Male and Female Nephrotic Criteria: <30 mg/g is considered normal to mildly increased 30-300 mg/g is considered moderately increased >300 mg/g is considered severely increased KDIGO. (2013). KDIGO 2012 Clinical Practice Guideline for the Evaluation and Management of Chronic Kidney Disease. Official Journal of the International Society of Nephrology, 3(1), 1-150. Performed By: #### U ACR ####[facility] LABCLIA [id number] [place] [address] [place] Creatinine (U) [Mass/Vol] 95.1 mg/dL Normal 20.0-300.0 [facility] Comment on above: Order Comment: Speci men Type: URINE SPECIMENOrdering Facility: [facility] Address: [address] [place] [address] Performed By: #### U ACR ####[facility] LABCLIA [id number] [address] [address] [place] Comprehensive metabolic 2000 panelon 09-19-2024 Albumin [Mass/Vol] 4.3 g/dL Normal 3.9-4.9 [facility] Comment on above: Order Comment: Speci men Type: BLOOD SPECIMENOrdering Facility: [facility] Address: [address] [place] [address] Performed By: #### 2 4323-8, 83290-3 ####[facility] LABCLIA [id number] [place] [address] [place] ALP [Catalytic activity/Vol] 70 U/L Normal 34-123 [facility] Comment on above: Order Comment: Speci men Type: BLOOD SPECIMENOrdering Facility: [facility] Address: [address] [place] [address] Performed By: #### 2 4323-8, 14662-0 ####[facility] LABCLIA [id number] [place] [address] [place] ALT [Catalytic activity/Vol] 26 U/L Normal 7-38 [facility] Comment on above: Order Comment: Speci men Type: BLOOD SPECIMENOrdering Facility: [facility] Address: [address] [place] [address] Performed By: #### 2 4323-8, 93432-3 ####[facility] LABCLIA [id number] [place] [id number] [place] Anion gap [Moles/Vol] 13 mmol/L Normal 8-15 [facility] Comment on above: Order Comment: Speci men Type: BLOOD SPECIMENOrdering Facility: [facility] Address: [address] [place] [address] Performed By: #### 2 4323-8, 11999-5 ####[facility] LABCLIA [id number] [place] [id number] [place] AST [Catalytic activity/Vol] 21 U/L Normal 13-35 [facility] Comment on above: Order Comment: Speci men Type: BLOOD SPECIMENOrdering Facility: [facility] Address: [address] [place] [address] Performed By: #### 2 4323-8, 55113-9 ####[facility] LABCLIA [id number] [place] [address] [place] Bilirubin [Mass/Vol] 0.5 mg/dL Normal 0.2-1.3 [facility] Comment on above: Order Comment: Speci men Type: BLOOD SPECIMENOrdering Facility: [facility] Address: [address] [place] [address] Performed By: #### 2 4323-8, 93969-0 ####[facility] LABCLIA [id number] [place] [address] [place] Calcium [Mass/Vol] 9.7 mg/dL Normal 8.5-10.2 [facility] Comment on above: Order Comment: Speci men Type: BLOOD SPECIMENOrdering Facility: [facility] Address: [address] [place] [address] Performed By: #### 2 4323-8, 29677-7 ####[facility] LABCLIA [id number] [place] [address] [place] Chloride [Moles/Vol] 104 mmol/L Normal 98-107 [facility] Comment on above: Order Comment: Speci men Type: BLOOD SPECIMENOrdering Facility: [facility] Address: [address] [place] [address] Performed By: #### 2 4323-8, 47865-0 ####[facility] LABCLIA [id number] [place] [address] [place] CO2 [Moles/Vol] 22 mmol/L Normal 22-30 [facility] Comment on above: Order Comment: Speci men Type: BLOOD SPECIMENOrdering Facility: [facility] Address: [address] [place] [address] Performed By: #### 2 4323-8, 32520-8 ####[facility] LABIA [id number] [place] [address] [place] Creatinine [Mass/Vol] 0.84 mg/dL Normal 0.58-0.96 [facility] Comment on above: Order Comment: Speci men Type: BLOOD SPECIMENOrdering Facility: [facility] Address: [address] [place] [address] Performed By: #### 2 4323-8, 70380-4 ####[facility] LABIA [id number] [place] [address] [place] Creatinine and Glomerular filtration rate.predicted panel (S/P/Bld) 72 mL/min/1.73m??? Normal >=60 [facility] Comment on above: Order Comment: Fransiscojosiah men Type: BLOOD SPECIMENOrdering Facility: [facility] Address: [address] [place] [address] Result Comment: Angélica mated Glomerular Filtration Rate [...] actual GFR. Performed By: #### 2 4323-8, 21186-9 ####[facility] LABIA [id number] [place] [id number] [place] Glucose [Mass/Vol] 190 mg/dL High 74-99 [facility] Comment on above: Order Comment: Thomas shelton Type: BLOOD SPECIMENOrdering Facility: [facility] Address: [address] [place] [address] Result Comment: The [place] [employer] (ADA) provides guidance for cutoff [...] Standards of Medical Care in Diabetes 2016, [place] [employer]. Diabetes Care. 2016.39(Suppl 1). Performed By: #### 2 4323-8, 58488-9 ####[facility] LABCLIA [id number] [place] [address] [place] Potassium [Moles/Vol] 4.3 mmol/L Normal 3.7-5.1 [facility] Comment on above: Order Comment: Speci men Type: BLOOD SPECIMENOrdering Facility: [facility] Address: [address] [place] [address] Performed By: #### 2 4328, ####[facility] LABCLIA [id number] [place] [address] [place] Protein [Mass/Vol] 7.3 g/dL Normal 6.3-8.0 [facility] Comment on above: Order Comment: Speci men Type: BLOOD SPECIMENOrdering Facility: [facility] Address: [address] [place] [address] Performed By: #### 2 4328, ####[facility] LABCLIA [id number] [place] [address] [place] Sodium [Moles/Vol] 139 mmol/L Normal 136-144 [facility] Comment on above: Order Comment: Speci men Type: BLOOD SPECIMENOrdering Facility: [facility] Address: [address] [place] [address] Performed By: #### 2 4328, 21291-3 ####[facility] LABCLIA [id number] [place] [address] [place] Urea nitrogen [Mass/Vol] 23 mg/dL High 7-21 [facility] Comment on above: Order Comment: Thomas men Type: BLOOD SPECIMENOrdering Facility: [facility] Address: [address] [place] [address] Performed By: #### 2 4323-8, 79515-1 ####[facility] LABCLIA [id number] [place] [address] [place] HbA1c (Bld)on 09-19-2024 Average glucose Estimated from glycated hemoglobin (Bld) [Mass/Vol] 209 mg/dL Normal [facility] Comment on above: Order Comment: Thomas shelton Type: BLOOD SPECIMENOrdering Facility: [facility] Address: [address] [place] [address] Result Comment: eAG: (Estimated average glucose) is a calculated value from HgbA1c and is digital 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 of the average blood glucose level in the last 2-3 month period. Performed By: #### 5 5454-3 ####[facility] LABIA [id number] [place] [address] [place] HbA1c (Bld) [Mass fraction] 8.9 % High 4.3-5.6 [facility] Comment on above: Order Comment: Thomas men Type: BLOOD SPECIMENOrdering Facility: [facility] Address: [address] [place] [address] Result Comment: Amer [place] Diabetes Association guidelines indicate that patients with HgbA1c in the range 5.7-6.4% are at increased risk for development of diabetes, and intervention by lifestyle modification may be beneficial. HgbA1c greater or equal to 6.5% is considered diagnostic of diabetes. Performed By: #### 5 5454-3 ####[facility] LABCLIA [id number] [place] [address] [place] Lipid 1996 panelon 5 Cholesterol [Mass/Vol] 183 mg/dL Normal <200 [facility] Comment on above: Order Comment: Speci men Type: BLOOD SPECIMENOrdering Facility: [facility] Address: [address] [place] [address] Result Comment: <200 mg/dL, Desirable 200-239 mg/dL, Borderline high >239 mg/dL, High Performed By: #### 2 4323-8, 70304-8 ####[facility] LABCLIA [id number] [place] [address] [place] Cholesterol in HDL [Mass/Vol] 38 mg/dL Low >39 [facility] Comment on above: Order Comment: Speci men Type: BLOOD SPECIMENOrdering Facility: [facility] Address: [address] [place] [address] Result Comment: 40-5 9 mg/dL, Acceptable >59 mg/dL, High: Negative risk factor for coronary heart disease <40 mg/dL, Low: Positive risk factor for coronary heart disease Performed By: #### 2 4323-8, 98469-9 ####[facility] LABCLIA [id number] [place] [address] [place] Cholesterol in LDL [Mass/Vol] 121 mg/dL High <100 [facility] Comment on above: Order Comment: Speci men Type: BLOOD SPECIMENOrdering Facility: [facility] Address: [address] [place] [address] Result Comment: <100 mg/dL, Optimal 100-129 mg/dL, Near optimal/above optimal 130-159 mg/dL, Borderline high 160-189 mg/dL, High >189 mg/dL, Very high Secondary prevention optimal LDL Cholesterol levels are recommended to be < 70 mg/dL Performed By: #### 2 4323-8, 40667-5 ####[facility] LABCLIA [id number] [place] [address] [place] Cholesterol in LDL/Cholesterol in HDL [Mass ratio] 3.18 {ratio} High <2.54 [facility] Comment on above: Order Comment: Speci men Type: BLOOD SPECIMENOrdering Facility: [facility] Address: [address] [place] [address] Result Comment: Alejo mack: 1. National Cholesterol Education Program ATP III Guideline At-A-Glance Quick Desk Reference: National Heart, Lung, and Blood Crocheron. National Institutes of Health. 2001: NIH Publication No. 01-3305. 2. An International Atherosclerosis Society position paper: global recommendations for the management of dyslipidemia: executive summary, Atherosclerosis. 2014: 232(2):410-413. Performed By: #### 2 4323-8, 14574-2 ####[facility] LABIA [id number] [place] [address] [place] Cholesterol in VLDL [Mass/Vol] 24 mg/dL Normal <30 [facility] Comment on above: Order Comment: Fransiscoi men Type: BLOOD SPECIMENOrdering Facility: [facility] Address: [address] [place] [address] Performed By: #### 2 4323-8, 08449-4 ####[facility] LABIA [id number] [place] [address] [place] Cholesterol non HDL [Mass/Vol] 145 mg/dL High <130 [facility] Comment on above: Order Comment: Thomas shelton Type: BLOOD SPECIMENOrdering Facility: [facility] Address: [address] [place] [address] Result Comment: <130 mg/dL, Optimal 130-159 mg/dL, Near optimal/above optimal 160-189 mg/dL, Borderline high 190-219 mg/dL, High >219 mg/dL, Very high Secondary prevention optimal non HDL Cholesterol levels are recommended to be <100 mg/dL Performed By: #### 2 4323-8, 54566-2 ####[facility] LABIA [id number] [place] [address] [place] Cholesterol.total/Choles terol in HDL [Mass ratio] 4.82 {ratio} Normal <5.10 [facility] Comment on above: Order Comment: Fransiscoi men Type: BLOOD SPECIMENOrdering Facility: [facility] Address: [address] [place] [address] Performed By: #### 2 4323-8, 38446-4 ####[facility] LABCLIA [id number] [place] [address] [place] FASTING TIME 12 hrs Normal [facility] Comment on above: Order Comment: Speci men Type: BLOOD SPECIMENOrdering Facility: [facility] Address: [address] [place] [address] Performed By: #### 2 4323-8, 22507-5 ####[facility] LABCLIA [id number] [place] [address] [place] Triglyceride [Mass/Vol] 118 mg/dL Normal <[address] [facility] Comment on above: Order Comment: Speci men Type: BLOOD SPECIMENOrdering Facility: [facility] Address: [address] [place] [address] Result Comment: <150 mg/dL, Normal 150-199 mg/dL, Borderline high 200-499 mg/dL, High >499 mg/dL, Very high Performed By: #### 2 4323-8, 50156-1 ####[facility] LABCLIA [id number] [place] [address] [place] CNPNon 08-18-2024 CNPN Telephone (INTMWS) JENNIFER GONZALEZ ([id number]) 1950 F Date Time Provider Department 08/18/24 ABBY MCCLELLAN During your visit today, we recorded the following information about you: Barbara Duran 08/18/2024 12:53 PM Lucina Rodriguez is calling Abby Mcclellan MD today to request Lab Orders (March appointment) Patient has been identified by name and birthdate. Duration of symptoms: N/A Person calling: self Call patient at: at home [phone] (home) [phone] (cell) Was an appointment scheduled: Yes: Date/Time: 09-29-24 Closing statement: Abby Light MD 08/19/2024 6:13 PM Signed Labs set to August to available for September appointment Included UACR Allergies As of Date: 08/18/2024 Noted Allergy Reaction LIPITOR (ATORVASTATIN) 06/27/2016 2 - Rash Comments: red itchy rash around neck--resolved after stopping med; hands "froze" with stiffness that started a week after taking a couple pills--resolving Date Reviewed: 02/25/2024 Reviewed by: Kamlesh Acosta APRN.ROBOTIC MAINTENANCE TECHNICIAN - Fully Assessed Reason for Visit: Lab Orders [5158] Cmt: September appointment Primary Visit Diagnosis:Type 2 diabetes mellitus with other specified complication, without long-term current use of insulin (HCC) [E11.69] Other Visit Diagnoses:Hypertensi on goal BP (blood pressure) < 140/90 [I10] Hyperlipidemia associated with type 2 diabetes mellitus (HCC) (HCC) [E11.69, E78.5] Order(s):HEMOGLOBIN A1C [CAQCM3M] Order #: [id number] FUTURE LIPID PANEL BASIC [SQLIPB] Order #: [id number] FUTURE COMPREHENSIVE METABOLIC PANEL [SQCMP] Order #: [id number] FUTURE ALBUMIN/CREATININE RATIO, URINE [SQUACR] Order #: [id number] FUTURE Prescriptions as of 08/20/2024 - metFORMIN [...] by mouth once daily. (Dr. Hubbard) - [facility] [place] Daly - aspirin, enteric coated (ASPIRIN, ENTERIC COATED) [...] KRISTA JI on 08/20/24 Normal [facility] 36on 06-12-2024 36 3 attempts have no been made to reach patient. She can reach us at [phone] M-F 8-5. We will continue to reach out as well. Normal [facility] Cardiology Visit Reporton Cardiology Visit Report Normal [facility] Pacemaker Checkon 06-01-2024 Pacemaker Check [facility] 36on 05-27-2024 36 Prior Auth was required and has been approved through 07/28/2025. I attempted to reach the patient to inform of authorization and offer [facility] services but no one answered and VM was is full. Will continue to make further outreaches. Thank you! [facility] 36on 05-19-2024 36 Chart reviewed, Eliquis was started @ [facility] ROBOTIC MAINTENANCE TECHNICIAN OV 05/07/24, samples & 30 D free card given, pt will be following up w/ Dr. Hubbard. I spoke w/pt, she has 30 Day free card, but needs RX sent in. She has appt w/ Dr. Hubbard in 2 weeks. Gloria Davis to route RX. [facility] 36 Requesting refill apixaban (Eliquis) 5 MG tablet [facility] verified [facility] Office Visiton 05-07-2024 Follow-up visit [id number] Jennifer Gonzalez 1950 F Date Provider Department Center 05/07/2024 [id number] LITTLEJOHN [facility] JORGE SHMGC[facility] 95 Ar Family History Problem Relation Age of Onset Breast cancer Mother COPD Father Coronary artery disease Father Family Status - Relation Status Age at Mother Father Level of Service:31879 RI OFFICE/OUTPATIENT ESTABLISHED MOD MDM 30 MIN Reason for Visit and Comments: 1 Month Follow Up [[id number]] [facility] Progress Noteon 05-07-2024 Progress Note [facility] - [address] [address] Dept: [phone] Dept Loc: [phone] Reason for Visit: 1 Month Follow Up Assessment and Plan 1. Severe aortic stenosis Assessment & Plan: S/p TAVR with 23 mm Katharine S3 valve on 04/06/24 -stable, NYHA Class [...] 04/06/24 -will follow with device clinic at [facility] Follow up for Dr. Hubbard 1-2 months. Subjective HPI Jennifer Gonzalez is a 73 y.o. female known to Dr. Hubbard with a history of paroxysmal atrial fibrillation, nonrheumatic aortic valve stenosis, T2DM, hypertension, RBBB and left posterior fascicular block. Cath showed minimal CAD. She underwent femoral TAVR with 23 mm Katharine S3 valve on 04/06/2024. POD 1 echo [...] rash around neck--resolved after stopping med; hands "froze" with stiffness that started a week after taking a couple pills--resolving Outpatient Medications Prior to Visit Medication Sig Dispense Refill calcium carbonate 500 MG chewable tablet Chew 500 mg daily. glimepiride (Amaryl) 4 MG tablet Take 1 tablet by mouth in the morning and 1 tablet in the evening. Take with meals. Glucosamine-Chondroi t-Vit C-Mn (GLUCOSAMINE 1500 COMPLEX PO) Take by [...] Take 50 mg by mouth daily. No facility-administere d medications prior to visit. Past Medical History: [...] Weight: 240 lb (109 kg) Height: 4' 11.5" (1.511 m) Body mass index is 47.66 kg/m?. Physical Exam Constitutional: Appearance: Normal appearance. HENT: Head: Normocephalic. Eyes: General: No scleral icterus. Right eye: No discharge. Left eye: No discharge. Cardiovascular: Rate a (more content not included)... Normal [facility] Progress Note Well controlled on current doses of losartan and metoprolol succinate Normal [facility] Progress Note Hx PAF with RVR [...] 30 day free card given to patient [facility] Progress Note Noted post TAVR, PPM placed on 04/06/24 -will follow with device clinic at [facility] Progress Note S/p TAVR with 23 mm Katharine S3 valve on 04/06/24 -stable, NYHA Class II -stop ASA, start Eliquis, see below -repeat echo to be done today -lifelong SBE prophylaxis -Cardiac Rehab-advised her to schedule an orientation [facility] US Heart TransthoracicOrdere d By: Anibal Young on 05-07-2024 AV Area by Peak Velocity 1.5 cm2 [facility] Work Phone: AV Area by VTI 1.5 cm2 [facility] Work Phone: AV Mean Gradient 15 mmHg [facility] Work Phone: AV Mean Velocity 1.8 m/s [facility] Work Phone: AV Peak Gradient 28 mmHg [facility] Work Phone: AV Peak Velocity 2.6 m/s [facility] Work Phone: AV Velocity Ratio 0.46 [facility] Work Phone: AV VTI 50.3 cm [facility] Work Phone: BENITA/BSA Peak Velocity 0.8 cm2/m2 [facility] [employer] Work Phone: BENITA/BSA VTI 0.8 cm2/m2 [facility] [employer] Work Phone: E/E' Lateral 16.83 [facility] [employer] Work Phone: E/E' Ratio (Averaged) 16.83 [facility] [employer] Work Phone: E/E' Septal 16.83 [facility] [employer] Work Phone: EF BP 67 % 55 - 100 % [facility] [employer] Work Phone: Fractional Shortening 2D 36 % 28 - 44 % [facility] [employer] Work Phone: Interpretation and review of laboratory results Abnormal [facility] [employer] Work Phone: IVC Diameter 1.3 cm [facility] [employer] Work Phone: IVSd 1.0 cm Abnormal 0.6 - 0.9 cm [facility] [employer] Work Phone: LA Diameter 4.1 cm [facility] [employer] Work Phone: LA Size Index 2.05 cm/m2 [facility] [employer] Work Phone: LA Volume 2C 35 mL 22 - 52 mL [facility] [employer] Work Phone: LA Volume 4C 46 mL 22 - 52 mL [facility] [employer] Work Phone: LA Volume A/L 45 mL [facility] [employer] Work Phone: LA Volume BP 41 mL 22 - 52 mL [facility] [employer] Work Phone: LA Volume Index 2C 18 mL/m2 16 - 34 mL/m2 [facility] [employer] Work Phone: LA Volume Index 4C 23 mL/m2 16 - 34 mL/m2 [facility] [employer] Work Phone: LA Volume Index A/L 23 mL/m2 16 - 34 mL/m2 [facility] [employer] Work Phone: LA Volume Index BP 21 ml/m2 16 - 34 ml/m2 [facility] [employer] Work Phone: LV E' Lateral Velocity 6 cm/s [facility] Work Phone: LV E' Septal Velocity 6 cm/s [facility] Work Phone: LV EDV A2C 43 mL [facility] [employer] Work Phone: LV EDV A4C 51 mL [facility] [employer] Work Phone: LV EDV BP 49 mL Abnormal 56 - 104 mL [facility] Work Phone: LV EDV Index A2C 22 mL/m2 [facility] Work Phone: LV EDV Index A4C 26 mL/m2 [facility] Work Phone: LV EDV Index BP 25 mL/m2 [facility] Work Phone: LV Ejection Fraction A2C 70 % [facility] Work Phone: LV Ejection Fraction A4C 65 % [facility] Work Phone: LV ESV A2C 13 mL [facility] Work Phone: LV ESV A4C 18 mL [facility] Work Phone: LV ESV BP 16 mL Abnormal 19 - 49 mL [facility] Work Phone: LV ESV Index A2C 7 mL/m2 [facility] Work Phone: LV ESV Index A4C 9 mL/m2 [facility] Work Phone: LV ESV Index BP 8 mL/m2 [facility] Work Phone: LV Mass 2D 107.9 g 67 - 162 g [facility] Work Phone: LV Mass 2D Index 53.9 g/m2 43 - 95 g/m2 [facility] Work Phone: LV RWT Ratio 0.56 [facility] Work Phone: LVIDd 3.6 cm Abnormal 3.9 - 5.3 cm [facility] Work Phone: LVIDd Index 1.80 cm/m2 [facility] Work Phone: LVIDs 2.3 cm [facility] Work Phone: LVIDs Index 1.15 cm/m2 [facility] Work Phone: LVOT Area 3.1 cm2 [facility] Work Phone: LVOT Cardiac Output 7.2 liter/minute [facility] Work Phone: LVOT Diameter 2.0 cm [facility] Work Phone: LVOT Mean Gradient 3 mmHg [facility] Work Phone: LVOT Peak Gradient 6 mmHg [facility] Work Phone: LVOT Peak Velocity 1.2 m/s [facility] Work Phone: LVOT Stroke Volume Index 35.8 mL/m2 [facility] Work Phone: LVOT SV 71.6 ml [facility] Work Phone: LVOT VTI 22.8 cm [facility] Work Phone: LVOT:AV VTI Index 0.45 [facility] Work Phone: LVPWd 1.0 cm Abnormal 0.6 - 0.9 cm [facility] Work Phone: MV A Velocity 1.39 m/s [facility] Work Phone: MV Area by VTI 2.3 cm2 [facility] Work Phone: MV E Velocity 1.01 m/s [facility] Work Phone: MV E Wave Deceleration Time 165.2 ms [facility] Work Phone: MV E/A 0.73 [facility] Work Phone: MV Max Velocity 1.5 m/s [facility] Work Phone: MV Mean Gradient 3 mmHg [facility] Work Phone: MV Mean Velocity 0.9 m/s [facility] Work Phone: MV Peak Gradient 9 mmHg [facility] Work Phone: MV VTI 30.7 cm [facility] Work Phone: MV:LVOT VTI Index 1.35 [facility] Work Phone: RA Area 4C 28.4 mL [facility] Work Phone: RA Area 4C 27.9 mL [facility] Work Phone: RV Basal Dimension 3.0 cm [facility] Work Phone: RV Free Wall Peak S' 14 cm/s [facility] Work Phone: RV Longitudinal Dimension 6.3 cm [facility] Work Phone: RV Mid Dimension 2.7 cm [facility] Work Phone: TAPSE 2.2 cm 1.7 cm [facility] Work Phone: [facility] Work Phone: Heart Transthoracicon Left Ventricle: Left ventricle size is normal. Mildly increased wall thickness. Mild septal thickening. Normal left ventricular systolic function. The EF by visual approximation is 65%. Normal wall motion. Right Ventricle: Right ventricle size is normal. Normal systolic function. Aortic Valve: Not well visualized. Marsh Katharine 3 transcatheter bioprosthetic aortic valve with a [...] regurgitation. Aortic Valve Not well visualized. Marsh Katharine 3 transcatheter bioprosthetic aortic valve with a [...] Anion gap [Moles/Vol] 14 mmol/L Normal 8-15 [facility] Comment on above: Order Comment: Speci men Type: BLOOD SPECIMENOrdering Facility: [facility] Address: [address] [place] [address] Performed By: #### 2 4321-2, 6-3 ####[facility] LABCLIA [id number] [place] [address] [place] Calcium [Mass/Vol] 10.0 mg/dL Normal 8.5-10.2 [facility] Comment on above: Order Comment: Speci cat Type: BLOOD SPECIMENOrdering Facility: [facility] Address: [address] [place] [address] Performed By: #### 2 4321-2, 3016-3 ####[facility] LABCLIA [id number] [place] [id number] [place] Chloride [Moles/Vol] 103 mmol/L Normal 98-107 [facility] Comment on above: Order Comment: Speci men Type: BLOOD SPECIMENOrdering Facility: [facility] Address: [address] [place] [address] Performed By: #### 2 4321-2, 3016-3 ####[facility] LABCLIA [id number] [address] [address] [place] CO2 [Moles/Vol] 24 mmol/L Normal 22-30 [facility] Comment on above: Order Comment: Speci men Type: BLOOD SPECIMENOrdering Facility: [facility] Address: [address] [place] [address] Performed By: #### 2 4321-2, 6-3 ####[facility] LABCLIA [id number] [place] [id number] [place] Creatinine [Mass/Vol] 0.87 mg/dL Normal 0.58-0.96 [facility] Comment on above: Order Comment: Speci men Type: BLOOD SPECIMENOrdering Facility: [facility] Address: [address] [place] [address] Performed By: #### 2 4321-2, 3015-3 ####[facility] LABCLIA [id number] [place] [address] [place] Creatinine and Glomerular filtration rate.predicted panel (S/P/Bld) 70 mL/min/1.73m??? Normal >=60 [facility] Comment on above: Order Comment: Speci men Type: BLOOD SPECIMENOrdering Facility: [facility] Address: [address] [place] [address] Result Comment: Angélica mated Glomerular Filtration Rate [...] GFR. Performed By: #### 2 4321-2, 6-3 ####[facility] LABCLIA [id number] [place] [id number] [place] Glucose [Mass/Vol] 213 mg/dL High 74-99 [facility] Comment on above: Order Comment: Speci men Type: BLOOD SPECIMENOrdering Facility: [facility] Address: [address] [place] [id number] Result Comment: The [place] Diabetes Association (ADA) provides guidance for cutoff [...] Standards of Medical Care in Diabetes 2016, [place] Diabetes Association. Diabetes Care. 2016.39(Suppl 1). Performed By: #### 2 4321-2, 6-3 ####[facility] LABCLIA [id number] [place] [address] [place] Potassium [Moles/Vol] 4.6 mmol/L Normal 3.7-5.1 [facility] Comment on above: Order Comment: Speci men Type: BLOOD SPECIMENOrdering Facility: [facility] Address: [address] [place] [address] Performed By: #### 2 4320-2, 3015-3 ####[facility] LABCLIA [id number] [place] [id number] [place] Sodium [Moles/Vol] 141 mmol/L Normal 136-144 [facility] Comment on above: Order Comment: Fransiscoi cat Type: BLOOD SPECIMENOrdering Facility: [facility] Address: [address] [place] [address] Performed By: #### 2 4320-2, 6-3 ####[facility] LABCLIA [id number] [address] [address] [place] Urea nitrogen [Mass/Vol] 20 mg/dL Normal 7-21 [facility] Comment on above: Order Comment: Fransiscoi men Type: BLOOD SPECIMENOrdering Facility: [facility] Address: [address] [place] [address] Performed By: #### 2 432-2, 6-3 ####[facility] LABCLIA [id number] [place] [address] [place] CBC W Auto Differential pane l (Bld)on 05-04-2024 Basophils (Bld) [#/Vol] 0.09 10*3/uL Normal <0.11 [facility] Comment on above: Order Comment: Speci men Type: BLOOD SPECIMENOrdering Facility: [facility] Address: [address] [place] [address] Performed By: #### 5 7021-8 ####[facility] LABCLIA [id number] [place] [address] [place] Basophils/100 WBC (Bld) 1.2 % Normal [facility] Comment on above: Order Comment: Speci men Type: BLOOD SPECIMENOrdering Facility: [facility] Address: [address] [place] [address] Performed By: #### 5 7021-8 ####[facility] LABCLIA [id number] [place] [address] [place] Differential cell count method Nom (Bld) Auto Normal [facility] Comment on above: Order Comment: Speci men Type: BLOOD SPECIMENOrdering Facility: [facility] Address: [address] [place] [address] Performed By: #### 5 7021-8 ####[facility] LABCLIA [id number] [place] [address] [place] Eosinophils (Bld) [#/Vol] 0.37 10*3/uL Normal <0.46 [facility] Comment on above: Order Comment: Speci men Type: BLOOD SPECIMENOrdering Facility: [facility] Address: [address] [place] [address] Performed By: #### 5 7021-8 ####[facility] LABCLIA [id number] [place] [address] [place] Eosinophils/100 WBC (Bld) 4.8 % Normal [facility] Comment on above: Order Comment: Speci men Type: BLOOD SPECIMENOrdering Facility: [facility] Address: [address] [place] [address] Performed By: #### 5 7021-8 ####[facility] LABCLIA [id number] [place] [address] [place] Erythrocyte distribution width (RBC) [Ratio] 13.2 % Normal 11.5-15.0 [facility] Comment on above: Order Comment: Speci men Type: BLOOD SPECIMENOrdering Facility: [facility] Address: [address] [place] [address] Performed By: #### 5 7021-8 ####[facility] LABCLIA [id number] [place] [address] [place] Hematocrit (Bld) [Volume fraction] 43.6 % Normal 36.0-46.0 [facility] Comment on above: Order Comment: Speci men Type: BLOOD SPECIMENOrdering Facility: [facility] Address: [address] [place] [address] Performed By: #### 5 7021-8 ####[facility] LABCLIA [id number] [place] [address] [place] Hemoglobin (Bld) [Mass/Vol] 14.1 g/dL Normal 11.5-15.5 [facility] Comment on above: Order Comment: Speci men Type: BLOOD SPECIMENOrdering Facility: [facility] Address: [address] [place] [address] Performed By: #### 5 7021-8 ####[facility] LABCLIA [id number] [place] [address] [place] Immature granulocytes (Bld) [#/Vol] 10*3/uL Normal <0.10 [facility] Comment on above: Order Comment: Speci men Type: BLOOD SPECIMENOrdering Facility: [facility] Address: [address] [place] [address] Performed By: #### 5 7021-8 ####[facility] LABCLIA [id number] [place] [address] [place] Immature granulocytes/100 WBC (Bld) 0.3 % Normal [facility] Comment on above: Order Comment: Speci men Type: BLOOD SPECIMENOrdering Facility: [facility] Address: [address] [place] [address] Performed By: #### 5 7021-8 ####[facility] LABCLIA [id number] [place] [address] [place] Lymphocytes (Bld) [#/Vol] 1.67 10*3/uL Normal 1.00-4.00 [facility] Comment on above: Order Comment: Speci men Type: BLOOD SPECIMENOrdering Facility: [facility] Address: [address] [place] [address] Performed By: #### 5 7021-8 ####[facility] LABCLIA [id number] [place] [address] [place] Lymphocytes/100 WBC (Bld) 21.7 % Normal [facility] Comment on above: Order Comment: Speci men Type: BLOOD SPECIMENOrdering Facility: [facility] Address: [address] [place] [address] Performed By: #### 5 7021-8 ####[facility] LABCLIA [id number] [place] [address] [place] MCH (RBC) [Entitic mass] 31.1 pg Normal 26.0-34.0 [facility] Comment on above: Order Comment: Speci men Type: BLOOD SPECIMENOrdering Facility: [facility] Address: [address] [place] [address] Performed By: #### 5 7021-8 ####[facility] LABCLIA [id number] [place] [address] [place] MCHC (RBC) [Mass/Vol] 32.3 g/dL Normal 30.5-36.0 [facility] Comment on above: Order Comment: Speci men Type: BLOOD SPECIMENOrdering Facility: [facility] Address: [address] [place] [address] Performed By: #### 5 7021-8 ####[facility] LABCLIA [id number] [place] [address] [place] MCV (RBC) [Entitic vol] 96.0 fL Normal 80.0-100.[address] [facility] Comment on above: Order Comment: Speci men Type: BLOOD SPECIMENOrdering Facility: [facility] Address: [address] [place] [address] Performed By: #### 5 7021-8 ####[facility] LABCLIA [id number] [place] [address] [place] Monocytes (Bld) [#/Vol] 1.04 10*3/uL High <0.87 [facility] Comment on above: Order Comment: Speci men Type: BLOOD SPECIMENOrdering Facility: [facility] Address: [address] [place] [address] Performed By: #### 5 7021-8 ####[facility] LABCLIA [id number] [place] [address] [place] Monocytes/100 WBC (Bld) 13.5 % Normal C [facility] Comment on above: Order Comment: Speci men Type: BLOOD SPECIMENOrdering Facility: [facility] Address: [address] [place] [address] Performed By: #### 5 7021-8 ####[facility] LABCLIA [id number] [place] [address] [place] Neutrophils (Bld) [#/Vol] 4.52 10*3/uL Normal 1.45-7.50 [facility] Comment on above: Order Comment: Speci men Type: BLOOD SPECIMENOrdering Facility: [facility] Address: [address] [place] [address] Performed By: #### 5 7021-8 ####[facility] LABCLIA [id number] [place] [address] [place] Neutrophils/100 WBC (Bld) 58.5 % Normal [facility] Comment on above: Order Comment: Speci men Type: BLOOD SPECIMENOrdering Facility: [facility] Address: [address] [place] [address] Performed By: #### 5 7021-8 ####[facility] LABCLIA [id number] [place] [address] [place] Nucleated RBC (Bld) [#/Vol] 10*3/uL Normal <0.01 [facility] Comment on above: Order Comment: Speci men Type: BLOOD SPECIMENOrdering Facility: [facility] Address: [address] [place] [address] Performed By: #### 5 7021-8 ####[facility] LABCLIA [id number] [place] [address] [place] Nucleated RBC/100 WBC (Bld) [Ratio] 0.0 /100 WBC Normal [facility] Comment on above: Order Comment: Speci men Type: BLOOD SPECIMENOrdering Facility: [facility] Address: [address] [place] [address] Performed By: #### 5 7021-8 ####[facility] LABCLIA [id number] [place] [address] [place] Platelet mean volume (Bld) [Entitic vol] 11.9 fL Normal 9.0-12.7 [facility] Comment on above: Order Comment: Speci men Type: BLOOD SPECIMENOrdering Facility: [facility] Address: [address] [place] [address] Performed By: #### 5 7021-8 ####[facility] LABCLIA [id number] [place] [address] [place] Platelets (Bld) [#/Vol] 144 10*3/uL Low 150-400 [facility] Comment on above: Order Comment: Speci men Type: BLOOD SPECIMENOrdering Facility: [facility] Address: [address] [place] [address] Performed By: #### 5 7021-8 ####[facility] LABCLIA [id number] [place] [id number] [place] RBC (Bld) [#/Vol] 4.54 10*6/uL Normal 3.90-5.20 [facility] Comment on above: Order Comment: Speci men Type: BLOOD SPECIMENOrdering Facility: [facility] Address: [address] [place] [address] Performed By: #### 5 7021-8 ####[facility] LABCLIA [id number] [place] [address] [place] WBC (Bld) [#/Vol] 7.71 10*3/uL Normal 3.70-11.00 [facility] Comment on above: Order Comment: Speci men Type: BLOOD SPECIMENOrdering Facility: [facility] Address: [address] [place] [address] Performed By: #### 5 7021-8 ####[facility] LABCLIA [id number] [place] [address] [place] TSH SerPl-aCncon 05-04-2024 TSH Qn 0.980 m[IU]/L Normal 0.270-4.200 [facility] Comment on above: Order Comment: Speci men Type: BLOOD SPECIMENOrdering Facility: [facility] Address: [address] [place] [address] Performed By: #### 2 4321-2, 3016-3 ####[facility] LABIA [id number] [place] [id number] [place] Office Visiton 04-17-2024 Follow-up visit [id number] Jennifer Gonzalez 1950 F Date Provider Department Center 04/17/2024 [id number] [facility] [address] Family History Problem Relation Age of Onset Breast cancer Mother COPD Father Coronary artery disease Father Family Status - Relation Status Age at Mother Father Level of Service:76995 [place] OFFICE/OUTPATIENT ESTABLISHED MOD MDM 30 MIN Reason for Visit and Comments: Hospital Follow-up [832] Normal [facility] Progress Noteon 04-17-2024 Progress Note [facility] [address] [place] [address] Dept: [phone] Dept Visit type: Established : 1950 Reason for Visit: No chief complaint on file. Assessment and Plan 1. S/P TAVR (transcatheter aortic valve replacement). She has a resting tachycardia today, unclear etiology. Will check labs - Basic metabolic panel - CBC auto differential - TSH - [facility] 2. Essential hypertension. BP controlled, continue metoprolol. - ECG 12 lead - CLINIC PERFORMED - Basic metabolic panel - CBC auto differential - TSH - [facility] 3. Aortic valve stenosis, etiology of cardiac valve disease unspecified. S/p TAVR. Continue ASA, SBE prophylaxis. Referred to cardiac rehabEcho and re evaluation in one month. - Basic metabolic panel - CBC auto differential - TSH - [facility] 4. Complete heart block (CMS/HCC) (HCC). S/p PPm. Has follow up with device clinic. One month follow up Subjective Jennifer Gonzalez is a 73 y.o. female with PMH paroxysmal atrial fibrillation ?, nonrheumatic aortic valve stenosis, DM, hypertension, RBBB and left posterior fascicular block that presented to [facility] on 04/06/2024 for TAVR. Femoral TAVR with 23 mm Katharine S3 valve was performed on 04/06/2024. POD 1 echo showed EF 66%, mean ao gradient 12 mm Hg. She developed high degree AV block with intermittent SVT. PPM was implanted on 04/06, beta liliya was resumed. She was discharged on 04/08/2024. Today she is here for one week follow up. Jennifer denies any chest pain, dyspnea, groin/wrist complaints, bleeding. Her spouse notes improvement in breathing. Allergies Allergen Reactions Atorvastatin Rash red itchy rash around neck--resolved after stopping med; hands "froze" with stiffness that started a week after taking a couple pills--resolving Outpatient Medications Prior to Visit Medication Sig Dispense Refill aspirin 81 MG EC tablet Take 81 mg by mouth daily. calcium carbonate 500 MG chewable tablet Chew 500 mg daily. glimepiride (Amaryl) 4 MG tablet Take 1 tablet by mouth in the morning and 1 tablet in the evening. Take with meals. Glucosamine-Chondroi t-Vit C-Mn (GLUCOSAMINE 1500 COMPLEX PO) Take by [...] Take 25 mg by mouth daily. No facility-administere d medications prior to visit. Past Medical History: [...] Weight: 240 lb (109 kg) Height: 4' 11" (1.499 m) Physical Exam Constitutional: Appearance: Normal [...] RBBB Rev (more content not included)... Normal [facility] 36on 04-10-2024 36 Patient s/p TAVR 04/06/24 with CHB s/p PPM placement 04/07/24. BP elevated, 50 mg losartan. Spoke with patient and diarrhea has resolved, she took losartan this morning without concerns. Rescheduled 1 week follow-up to 04/17 as patient's has EGD on 04/16. Normal [facility] 36on 04-09-2024 36 Patient called b/c she started the losartan this morning and now c/o diarrhea Normal [facility] CALCIUM, IONIZEDon 4 CALCIUM IONIZED 4.60 mg/dL Normal 4.30-5.20 [facility] Comment on above: Performed By: #### L AB54 #### [employer] Milling Machinist: GRISEL GARZA ([phone]) [facility] ([facility]) [address] [place] [address] PH, IONIZED CALCIUM 7.39 Normal 7.31-7.[address] [facility] Comment on above: Performed By: #### L AB54 #### [employer] Machinist: GRISEL GARZA ([phone]) [facility] ([facility]) [address] [place] [address] CBC W Auto Differential pane l (Bld)on 04-08-2024 Basophils (Bld) [#/Vol] 0.1 10*3/uL 0.0 - 0.2 10*3/uL [facility] Basophils/100 WBC (Bld) 0.8 % 0.0 - 2.0 % [facility] Eosinophils (Bld) [#/Vol] 0.4 10*3/uL 0.0 - 0.5 10*3/uL [facility] Eosinophils/100 WBC (Bld) 3.7 % 0.0 - 6.0 % [facility] Erythrocyte distribution width (RBC) [Ratio] 13.7 % 11.5 - 15.0 % [facility] Hematocrit (Bld) [Volume fraction] 41.2 % 35.0 - 47.0 % [facility] Hemoglobin (Bld) [Mass/Vol] 13.5 g/dL 11.7 - 16.0 g/dL [facility] Immature granulocytes (Bld) [#/Vol] 0.0 10*3/uL NINF - 0.1 10*3/uL [facility] Immature granulocytes/100 WBC (Bld) 0.3 % 0.0 - 2.0 % [facility] Interpretation and review of laboratory results Abnormal [facility] Lymphocytes (Bld) [#/Vol] 2.3 10*3/uL 1.0 - 4.3 10*3/uL [facility] Lymphocytes/100 WBC (Bld) 22.5 % 15.0 - 45.0 % [facility] MCH (RBC) [Entitic mass] 30.5 pg 26. 0 - 34.0 pg [facility] MCHC (RBC) [Mass/Vol] 32.8 % 30.5 - 36.0 % [facility] MCV (RBC) [Entitic vol] 93.0 fL 77.0 - 99.0 fL [facility] Monocytes (Bld) [#/Vol] 1.4 10*3/uL High 0.0 - 0.9 10*3/uL [facility] Monocytes/100 WBC (Bld) 13.4 % High 5.0 - 13.0 % [facility] Neutrophils (Bld) [#/Vol] 6.0 10*3/uL 1.8 - 7.5 10*3/uL [facility] Neutrophils/100 WBC (Bld) 59.3 % 38.0 - 82.0 % [facility] Nucleated RBC/100 WBC (Bld) [Ratio] 0.0 % [facility] Platelet mean volume (Bld) [Entitic vol] 11.3 fL 9.0 - 12.7 fL [facility] Platelets (Bld) [#/Vol] 144 10*3/uL 140 - 440 10*3/uL [facility] RBC (Bld) [#/Vol] 4.43 10*6/uL 3.80 - 5.2 0 10*6/uL [facility] WBC (Bld) [#/Vol] 10.1 10*3/uL 3.6 - 10.7 10*3/uL [facility] CBC WITH AUTO DIFFERENTIALon 04-08-2024 Basophils (Bld) [#/Vol] 0.1 10*3/uL Normal 0.0-0.2 [facility] Comment on above: Performed By: #### L [id number] ####[employer] Machinist: GRISEL GARZA ([phone])[facility] ([facility])[address] [place] [address] Basophils/100 WBC (Bld) 0.8 % Normal 0.0-2.0 [facility] Comment on above: Performed By: #### L [id number] ####[employer] Machinist: GRISEL GARZA ([phone])[facility] ([facility])[address] [place] [address] Eosinophils (Bld) [#/Vol] 0.4 10*3/uL Normal 0.0-0.5 [facility] Comment on above: Performed By: #### L [id number] ####[employer] Machinist: GRISEL GARZA ([phone])[facility] ([facility])[address] [place] [address] Eosinophils/100 WBC (Bld) 3.7 % Normal 0.0-6.0 [facility] Comment on above: Performed By: #### L [id number] ####[employer] Milling Machinist: GRISEL GARZA ([phone])[facility])[address] [place] [address] Erythrocyte distribution width (RBC) [Ratio] 13.7 % Normal 11.5-15.0 [facility] Comment on above: Performed By: #### L [id number] ####[employer] Machinist: GRISEL [id number])[facility])[address] [place] [address] Hematocrit (Bld) [Volume fraction] 41.2 % Normal 35.0-47.0 [facility] Comment on above: Performed By: #### L [id number] ####[employer] Machinist: GRISEL GARZA ([phone])[facility])[address] [place] [address] Hemoglobin (Bld) [Mass/Vol] 13.5 g/dL Normal 11.7-16.0 [facility] Comment on above: Performed By: #### L [id number] ####[employer] Machinist: GRISEL GARZA ([phone])[facility])[address] [place] [address] IMMATURE GRANS % 0.3 % Normal 0.0-2.0 [facility] Comment on above: Performed By: #### L [id number] ####[employer] Machinist: GRISEL GARZA ([phone])[facility])[address] [place] [address] IMMATURE GRANS ABSOLUTE 0.0 10*3/uL Normal <0.1 [facility] Comment on above: Performed By: #### L [id number] ####[employer] Machinist: GRISEL GARZA ([phone])[facility])[address] [place] [address] Lymphocytes (Bld) [#/Vol] 2.3 10*3/uL Normal 1.0-4.3 [facility] Comment on above: Performed By: #### L [id number] ####[employer] Machinist: GRISEL GARZA ([phone])[facility])[address] [place] [address] Lymphocytes/100 WBC (Bld) 22.5 % Normal 15.0-45.0 [facility] Comment on above: Performed By: #### L [id number] ####[employer] Machinist: GRISEL GARZA ([phone])[facility])[address] [place] [address] MCH (RBC) [Entitic mass] 30.5 pg Normal 26.0-34.0 [facility] Comment on above: Performed By: #### L [id number] ####[employer] Machinist: GRISEL GARZA ([phone])[facility])[address] [place] [address] MCHC 32.8 % Normal 30.5-36.0 [facility] Comment on above: Performed By: #### L [id number] ####[employer] Machinist: GRISEL GARZA ([phone])[facility])[address] [place] [address] MCV (RBC) [Entitic vol] 93.0 fL Normal 77.0-99.0 [facility] Comment on above: Performed By: #### L [id number] ####[employer] Machinist: GRISEL GARZA ([phone])[facility])[address] [place] [address] Monocytes (Bld) [#/Vol] 1.4 10*3/uL High 0.0-0.9 [facility] Comment on above: Performed By: #### L [id number] ####[employer] Machinist: GRISEL GARZA ([phone])[facility])[address] [place] [address] Monocytes/100 WBC (Bld) 13.4 % High 5.0-13.0 [facility] Comment on above: Performed By: #### L [id number] ####[employer] M[employer] Machinist: GRISEL GARZA ([phone])[facility])[address] [place] [address] NEUTROPHILS ABSOLUTE 6.0 10*3/uL Normal 1.8-7.5 [facility] Comment on above: Performed By: #### L [id number] ####[employer] Milling Machinist: GRISEL GARZA ([phone])[facility])[address] [place] [address] Neutrophils/100 WBC (Bld) 59.3 % Normal 38.0-82.0 [facility] Comment on above: Performed By: #### L [id number] ####[employer] Milling Machinist: GRISEL GARZA ([phone])[facility] ([facility])[address] [place] [address] NRBC 0.0 /100 WBCs Normal 0.0-2.0 [facility] Comment on above: Performed By: #### L [id number] ####[employer] Milling Machinist: GRISEL GARZA ([phone])[facility] ([facility])[address] [place] [address] Platelet mean volume (Bld) [Entitic vol] 11.3 fL Normal 9.0-12.[address] [facility] Comment on above: Performed By: #### L [id number] ####C[employer] Milling Machinist: GRISEL GARZA ([phone])[facility] ([facility])[address] [place] [address] Platelets (Bld) [#/Vol] 144 10*3/uL Normal 140-440 [facility] Comment on above: Performed By: #### L [id number] ####[employer] Milling Machinist: GRISEL GARZA ([phone])[facility] ([facility])[address] [place] [address] RBC (Bld) [#/Vol] 4.43 10*6/uL Normal 3.80-5.20 [facility] Comment on above: Performed By: #### L [id number] ####[employer] Milling Machinist: GRISEL GARZA ([phone])[facility] ([facility])[address] [place] [address] WBC (Bld) [#/Vol] 10.1 10*3/uL Normal 3.6-10.7 [facility] Comment on above: Performed By: #### L [id number] ####[employer] Milling Machinist: GRISEL GARZA ([phone])[facility])[address] [place] [address] COMPREHENSIVE METABOLIC PANE Cedric 04-08-2024 Albumin [Mass/Vol] 3.9 g/dL Normal 3.5-5.0 [facility] Comment on above: Performed By: #### L [id number], IUD107, [id number] ####[employer] Milling Machinist: GRISEL GARZA ([phone])[facility] [place] [address] ALP [Catalytic activity/Vol] 54 U/L Normal 38-126 [facility] Comment on above: Performed By: #### L AB17, [id number], [id number] ####[employer] Milling Machinist: GRISEL GARZA ([phone])[facility] [place] [address] [place] ALT [Catalytic activity/Vol] 27 U/L Normal 0-[address] [facility] Comment on above: Performed By: #### L AB17, APT393, [id number] ####[employer] M[employer] Machinist: GRISEL GARZA ([phone])[facility] ([facility])[address] [place] [address] Anion gap [Moles/Vol] 5 mmol/L Normal 3-13 [facility] Comment on above: Performed By: #### L AB17, THN110, XRH549 ####[employer] Milling Machinist: GRISEL GARZA ([phone])[facility] ([facility])[address] [place] [address] [place] AST [Catalytic activity/Vol] 27 U/L Normal 15-46 [facility] Comment on above: Performed By: #### L AB17, FUM933, [id number] ####[employer] M[employer] Machinist: GRISEL GARZA ([phone])[facility] ([facility])[address] [place] [address] [place] Bilirubin [Mass/Vol] 1.3 mg/dL Normal 0.2-1.3 [facility] Comment on above: Performed By: #### L AB17, KQK582, TET256 ####[employer] Milling Machinist: GRISEL GARZA ([phone])[facility])[address] [place] [address] [place] Calcium [Mass/Vol] 9.4 mg/dL Normal 8.4-10.4 [facility] Comment on above: Performed By: #### L AB17, [id number], [id number] ####[employer] Machinist: GRISEL GARZA ([phone])[facility] [place] [address] [place] Chloride [Moles/Vol] 108 mmol/L High 98-107 [facility] Comment on above: Performed By: #### L AB17, ZJF864, USZ697 ####[employer] Milling Machinist: GRISEL GARZA ([phone])[facility] ([facility])[address] [place] [address] CO2 [Moles/Vol] 22 mmol/L Normal 22-30 [facility] Comment on above: Performed By: #### L AB17, UMV880, [id number] ####[employer] Milling Machinist: GRISEL GARZA ([phone])[facility])[address] [place] [address] Creatinine [Mass/Vol] 0.74 mg/dL Normal 0.52-1.04 [facility] Comment on above: Performed By: #### Nandini AB17, [id number], [id number] ####Cnc Milling Machinist: GRISEL GARZA ([phone])[facility] ([facility])[address] [place] [address] GLOMERULAR FILTRATION RATE ML/MIN/1.73 SQ M.PREDICTED 84.5 mL/min/1.73m*2 Normal >60.[address] [facility] Comment on above: Result Comment: Calc ulation based on the Chronic Kidney Disease Epidemiology Collaboration (CKD-EPI) equation refit without adjustment for race Performed By: #### L AB17, [id number], [id number] ####Cnc Milling Machinist: GRISEL GARZA ([phone])[facility] ([facility])[address] [place] [address] Glucose [Mass/Vol] 159 mg/dL High 70-[address] [facility] Comment on above: Performed By: #### L AB17, [id number], [id number] ####Cnc Milling Machinist: GRISEL GARZA ([phone])[facility])[address] [place] [address] Potassium [Moles/Vol] 3.9 mmol/L Normal 3.5-5.1 [facility] Comment on above: Performed By: #### L AB17, [id number], [id number] ####Cnc Milling Machinist: GRISEL GARZA ([phone])[facility])[address] [place] [address] Protein [Mass/Vol] 6.8 g/dL Normal 6.3-8.[address] [facility] Comment on above: Performed By: #### L AB17, [id number], [id number] ####Cnc Milling Machinist: GRISEL GARZA ([phone])[facility])[address] [place] [address] Sodium [Moles/Vol] 135 mmol/L Normal 135-[address] [facility] Comment on above: Performed By: #### L AB17, [id number], [id number] ####Cnc Milling Machinist: GRISEL GARZA ([phone])[facility] ([facility])[address] [place] [address] Urea nitrogen [Mass/Vol] 18 mg/dL High 7-[address] [facility] Comment on above: Performed By: #### L AB17, [id number], [id number] ####Cnc Milling Machinist: GRISEL GARZA ([phone])[facility] ([facility])[address] [place] [address] Calcium.ionized [Moles/Vol]o n 04-08-2024 Calcium.ionized (Bld) [Moles/Vol] 4.60 mg/dL 4.30 - 5.20 mg/dL [facility] Interpretation and review of laboratory results Normal [facility] PH, IONIZED CALCIUM 7.39 7.31 - 7.46 [facility] Comprehensive metabolic 1998 panelon 04-08-2024 Albumin [Mass/Vol] 3.9 g/dL 3.5 - 5.0 g/dL [facility] ALP [Catalytic activity/Vol] 54 U/L 38 - 126 U/L [facility] ALT [Catalytic activity/Vol] 27 U/L 0 - 34 U/L [facility] Anion gap [Moles/Vol] 5 mmol/L 3 - 13 mmol/L [facility] AST [Catalytic activity/Vol] 27 U/L 15 - 46 U/L [facility] Bilirubin [Mass/Vol] 1.3 mg/dL 0.2 - 1 .3 mg/dL [facility] Calcium [Mass/Vol] 9.4 mg/dL 8.4 - 10. 4 mg/dL [facility] Chloride [Moles/Vol] 108 mmol/L High 98 - 10 7 mmol/L [facility] CO2 [Moles/Vol] 22 mmol/L 22 - 30 mmol/L [facility] Creatinine [Mass/Vol] 0.74 mg/dL 0.52 - 1.04 mg/dL [facility] GFR/1.73 sq M.predicted (S/P/Bld) [Vol rate/Area] 84.5 mL/min - PINF [facility] Comment on above: Calculation based on the Chronic Kidney Disease Epidemiology Collaboration (CKD-EPI) equation refit without adjustment for race Glucose [Mass/Vol] 159 mg/dL High 70 - 100 mg/dL [facility] Interpretation and review of laboratory results Abnormal [facility] Potassium [Moles/Vol] 3.9 mmol/L 3.5 - 5.1 mmol/L [facility] Protein [Mass/Vol] 6.8 g/dL 6.3 - 8.2 g/dL [facility] Sodium [Moles/Vol] 135 mmol/L 135 - 145 mmol/L [facility] Urea nitrogen [Mass/Vol] 18 mg/dL High 7 - 17 mg/d L [facility] ECG 12-LEADon 04-08-2024 ECG 12-LEAD IMPRESSION: Sinus tachycardia RBBB and LPFB Nonspecific ST and T wave changes Electronically Signed On 04-08-2024 08:58:15 EDT by Alen Hidalgo [facility] ECG 12-LEAD IMPRESSION: Sinus tachycardia RBBB and LPFB Nonspecific ST and T wave changes Electronically Signed On 04-08-2024 08:58:33 EDT by Alen Hidalgo [facility] ECG 12-LEAD IMPRESSION: Sinus tachycardia RBBB and LPFB Nonspecific ST and T wave changes Electronically Signed On 04-08-2024 08:57:47 EDT by Alen Hidalgo [facility] ECG 12-LEAD IMPRESSION: Sinus tachycardia RBBB and LPFB Electronically Signed On 04-08-2024 08:56:00 EDT by Alen Hidalgo [facility] Electrophysiology studyon [facility] Laboratory - Chemistry and C hemistry - challengeon 04-08-2024 Glucose [Mass/Vol] 253 mg/dL High 70 - 100 mg/dL [facility] Glucose [Mass/Vol] 210 mg/dL High 70 - 100 mg/dL [facility] Magnesium [Mass/Vol] 1.8 mg/dL 1.6 - 2 .3 mg/dL [facility] MAGNESIUMon 04-08-2024 Magnesium [Mass/Vol] 1.8 mg/dL Normal 1.6-2.3 [facility] Comment on above: Performed By: #### L AB17, [id number], [id number] ####Cnc Milling Machinist: GRISEL GARZA ([phone])[facility] ([facility])[address] [place] [address] No Panel Informationon 04-08 Interpretation and review of laboratory results Abnormal [facility] Performed by: [facility], [address] [place] [address] CLIA ID: [id number] [facility] P [place] 26 degrees [facility] RI Interval 194 ms [facility] QRS [place] 93 degrees [facility] QRSD Interval 146 ms [facility] QT Interval 371 ms [facility] QTC Interval 482 ms [facility] T Wave [place] -72 degrees [facility] Sinus tachycardia RBBB and LPFB Nonspecific ST and T wave changes Electronically Signed On 04-08-2024 08:58:33 EDT by Alen Zurita MD - 04/08/2024 IMPRESSION: Sinus tachycardia RBBB and LPFB Nonspecific ST and T wave changes Electronically Signed On 04-08-2024 08:58:33 EDT by Alen Hern[facility]dez [facility] P [place] 52 degrees [facility] RI Interval 173 ms [facility] QRS [place] 95 degrees [facility] QRSD Interval 138 ms [facility] QT Interval 347 ms [facility] QTC Interval 478 ms [facility] T Wave [place] -70 degrees [facility] Sinus tachycardia RBBB and LPFB Nonspecific ST and T wave changes Electronically Signed On 04-08-2024 08:58:15 EDT by Alen Zurita MD - 04/08/2024 IMPRESSION: Sinus tachycardia RBBB and LPFB Nonspecific ST and T wave changes Electronically Signed On 04-08-2024 08:58:15 EDT by Alen Hernández [facility] Sinus tachycardia RBBB and LPFB Nonspecific ST and T wave changes Electronically Signed On 04-08-2024 08:57:47 EDT by Alen Zurita MD - 04/08/2024 IMPRESSION: Sinus tachycardia RBBB and LPFB Nonspecific ST and T wave changes Electronically Signed On 04-08-2024 08:57:47 EDT by Alen Hernández [facility] P [place] 40 degrees [facility] RI Interval 204 ms [facility] QRS [place] 95 degrees [facility] QRSD [facility]val [facility] 362 ms [facility] QTC Interval 477 ms [facility] T Wave [place] -65 degrees [facility] Sinus tachycardia RBBB and LPFB Electronically Signed On 04-08-2024 08:56:00 EDT by Alen Zurita MD - 04/08/2024 IMPRESSION: Sinus tachycardia RBBB and LPFB Electronically Signed On 04-08-2024 08:56:00 EDT [facility] Interpretation and review of laboratory results Abnormal [facility] Performed by: [facility], [address] [place] [address] CLIA ID: [id number] [facility] Interpretation and review of laboratory results Normal [facility] No Panel InformationOrdered By: Alen Hernández on 04-08-2024 P [place] 42 degrees [facility] Work Phone: RI Interval 155 ms [facility] Work Phone: QRS [place] 91 degrees [facility] Work Phone: QRSD Interval 143 ms [facility] Work Phone: QT Interval 356 ms [facility] Work Phone: QTC Interval 474 ms [facility] Work Phone: T Wave [place] -64 degrees [facility] Work Phone: [facility] Work Phone: PHOSPHORUSon 04-08-2024 Phosphate [Mass/Vol] 3.4 mg/dL Normal 2.5-4.5 [facility] Comment on above: Performed By: #### L AB17, [id number], [id number] ####Cnc Milling Machinist: GRISEL GARZA ([phone])[facility] ([address] Phosphate [Moles/Vol]on 03-29 Phosphate [Mass/Vol] 3.4 mg/dL 2.5 - 4 .5 mg/dL [facility] Progress Noteon 04-08-2024 Progress Note Nutrition rescreen completed. Chart reviewed. Patient to be monitored and followed by the diet orthotic finish grinding technician. .BOBBY Dugan Normal [facility] Progress Note Attestation signed by Calvin Barnard MD [...] later today, d/w patient meds and f/u [facility] [place] [facility] CCU PROGRESS NOTE Patient Name: Jennifer Gonzalez : 1950 Subjective: Jennifer Gonzalez is a 73 y.o. female with [...] ?F) (Temporal) Resp (!) 26 Ht 4' 11" (1.499 m) Wt 243 lb (110 kg) [...] 04/08/2024 Cardiac profile: No results found for: "CKTOTAL", "CKMB", TROPONINI Coagulation: No results found for: "INR", "PTT" Lipid panel: No results found for: "CHOL", "HDL", "LDL", "TRIG" Other: No results found for: "HGBA1C", T (more content not included)... Normal [facility] Vital signson 04-08-2024 Heart rate 101 /min bpm [facility] Heart rate 113 /min bpm [facility] Heart rate 104 /min bpm [facility] Vital signsOrdered By: Alen Hernández on 04-08-2024 Heart rate 107 /min bpm [facility] Work Phone: XR CHEST 2 VIEWSon 4 XR CHEST 2 VIEWS [facility] 1950 [id number] Exam Date/Time: 04/08/2024 09:54 Procedure: XR CHEST 2 VIEWS Ordering Provider: MARR SHARON Reason For Exam: Post PPM Implant [...] Electronically Signed Date/Time: 04/08/2024 12:12 PM EDT [facility] XR Chest 2 Viewson Recent pacemaker placement with intact leads. No procedural complication identified. Report Dictated on Electronically Signed By: Xiang Miranda MD Electronically Signed Date/Time: 04/08/2024 12:12 PM EDT [facility] Patient Name: JENNIFER GONZALEZ : 1950 Exam Date/Time: 04/08/2024 09:54 Procedure: XR CHEST 2 VIEWS Ordering Provider: MARR SHARON Reason For Exam: Post PPM Implant [...] spine and shoulders. No acute osseous findings. [facility] Xiang Miranda MD - 04/08/2024 Patient Name: JENNIFER GONZALEZ : 1950 Exam Date/Time: 04/08/2024 09:54 Procedure: XR CHEST 2 VIEWS Ordering Provider: MARR SHARON Reason For Exam: Post PPM Implant [...] Electronically Signed Date/Time: 04/08/2024 12:12 PM EDT [facility] Radiology Study observation (narrative) [facility] XR Chest 2 ViewsOrdered By: Xiang Miranda on 04-08-2024 [facility] Work Phone: 36on 04-07-2024 [address] [facility] 36 Can I have an order for a 1 mo follow up echo please? Normal [facility] BASIC METABOLIC PANELon 09-2023 Anion gap [Moles/Vol] 4 mmol/L Normal 3-13 [facility] Comment on above: Performed By: #### L AB15 ####Cnc Milling Machinist: GRISEL GARZA ([id number])[facility] ([facility])[address] [place] [address] Calcium [Mass/Vol] 8.9 mg/dL Normal 8.4-10.[address] [facility] Comment on above: Performed By: #### L AB15 ####Cnc Milling Machinist: GRISEL GARZA ([phone])[facility] [place] [address] Chloride [Moles/Vol] 109 mmol/L High 98-107 [facility] Comment on above: Performed By: #### L AB15 ####Cnc Milling Machinist: GRISEL GARZA ([phone])[facility] ([facility])[address] [place] [address] CO2 [Moles/Vol] 23 mmol/L Normal 22-30 [facility] Comment on above: Performed By: #### L AB15 ####Cnc Milling Machinist: GRISEL GARZA ([phone])[facility] [place] [address] Creatinine [Mass/Vol] 0.79 mg/dL Normal 0.52-1.04 [facility] Comment on above: Performed By: #### L AB15 ####Cnc Milling Machinist: GRISEL GARZA ([phone])[facility])[address] [place] [address] [place] GLOMERULAR FILTRATION RATE ML/MIN/1.73 SQ M.PREDICTED 78.1 mL/min/1.73m*2 Normal >60.[address] [facility] Comment on above: Result Comment: Calc ulation based on the Chronic Kidney Disease Epidemiology Collaboration (CKD-EPI) equation refit without adjustment for race Performed By: #### L AB15 ####Cnc Milling Machinist: GRISEL GARZA ([phone])[facility] ([facility])[address] [place] [address] Glucose [Mass/Vol] 270 mg/dL High 70-[address] [facility] Comment on above: Performed By: #### L AB15 ####Cnc Milling Machinist: GRISEL GARZA ([phone])[facility] ([facility])[address] [place] [address] Potassium [Moles/Vol] 4.1 mmol/L Normal 3.5-5.1 [facility] Comment on above: Performed By: #### L AB15 ####Cnc Milling Machinist: GRISEL GARZA ([phone])[facility] ([facility])[address] [place] [address] Sodium [Moles/Vol] 136 mmol/L Normal 135-[address] [facility] Comment on above: Performed By: #### L AB15 ####Cnc Milling Machinist: GRISEL GARZA ([phone])[facility] ([facility])[address] [place] [address] Urea nitrogen [Mass/Vol] 20 mg/dL High 7-[address] [facility] Comment on above: Performed By: #### L AB15 ####Cnc Milling Machinist: GRISEL GARZA ([phone])[facility])[address] [place] [address] Basic metabolic 1998 panelon 04-07-2024 Anion gap [Moles/Vol] 4 mmol/L 3 - 13 mmol/L [facility] Calcium [Mass/Vol] 8.9 mg/dL 8.4 - 10. 4 mg/dL [facility] Chloride [Moles/Vol] 109 mmol/L High 98 - 10 7 mmol/L [facility] CO2 [Moles/Vol] 23 mmol/L 22 - 30 mmol/L [facility] Creatinine [Mass/Vol] 0.79 mg/dL 0.52 - 1.04 mg/dL [facility] GFR/1.73 sq M.predicted (S/P/Bld) [Vol rate/Area] 78.1 mL/min - PINF [facility] Comment on above: Calculation based on the Chronic Kidney Disease Epidemiology Collaboration (CKD-EPI) equation refit without adjustment for race Glucose [Mass/Vol] 270 mg/dL High 70 - 100 mg/dL [facility] Interpretation and review of laboratory results Abnormal [facility] Potassium [Moles/Vol] 4.1 mmol/L 3.5 - 5.1 mmol/L [facility] Sodium [Moles/Vol] 136 mmol/L 135 - 145 mmol/L [facility] Urea nitrogen [Mass/Vol] 20 mg/dL High 7 - 17 mg/d L [facility] CARECOORDon 04-07-2024 [facility] Care Managment Initial Assessment Date: 04/07/2024 Patient Name: Jennifer Gonzalez : 1950 Patient Information Source of Information: Patient Cognition/Language: WFL - Within Functional Limits Permission given to speak with patient digital 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/careg iver as indicated: Yes Confirmation of Payer with patient/family: Yes Payer Name: [place]: No Confirmation of Primary Care Physician: Confirmed [...] Ambulation: Assistance (using a FWW) Bathing/Dressing: Independent Elimination/Continen ce/Toileting: Independent Feeding: Independent Who Assists with Activities of Daily Living: Instrumental Activities of Daily Living Prescription Coverage: Yes [facility]acy Used: [facility] Medication Management: Independent Transportation/Shopp ing: Independent Transportation Mode: Car Needs Assistance with [...] denies discharge needs. Breonna Jimenez RN Normal [facility] CBC (HEMOGRAM)on 04-07-2024 Erythrocyte distribution width (RBC) [Ratio] 13.5 % Normal 11.5-15.[address] [facility] Comment on above: Performed By: #### L [id number] #### Cnc Milling Machinist: GRISEL GARZA ([phone]) [facility]) [address] [place] [address] Hematocrit (Bld) [Volume fraction] 40.5 % Normal 35.0-47.[address] [facility] Comment on above: Performed By: #### L AB294 #### Cnc Milling Machinist: GRISEL GARZA ([phone]) [facility]) [address] [place] [address] Hemoglobin (Bld) [Mass/Vol] 13.1 g/dL Normal 11.7-16.[address] [facility] Comment on above: Performed By: #### L AB294 #### Cnc Milling Machinist: GRISEL GARZA ([phone]) [facility]) [address] [place] [address] MCH (RBC) [Entitic mass] 30.1 pg Normal 26.0-34.[address] [facility] Comment on above: Performed By: #### L AB294 #### Cnc Milling Machinist: GRISEL GARZA ([phone]) [facility]) [address] [place] [address] MCHC 32.3 % Normal 30.5-36.[address] [facility] Comment on above: Performed By: #### L AB294 #### Cnc Milling Machinist: GRISEL GARZA ([phone]) [facility]) [address] [place] [address] MCV (RBC) [Entitic vol] 93.1 fL Normal 77.0-99.0 [facility] Comment on above: Performed By: #### L AB294 #### Cnc Milling Machinist: GRISEL GARZA ([phone]) [facility] ([facility]) [address] [place] [address] Platelet mean volume (Bld) [Entitic vol] 11.5 fL Normal 9.0-12.[address] [facility] Comment on above: Performed By: #### L AB294 #### Cnc Milling Machinist: GRISEL GARZA ([phone]) [facility] ([facility]) [address] [place] [address] Platelets (Bld) [#/Vol] 168 10*3/uL Normal 140-440 [facility] Comment on above: Performed By: #### L AB294 #### Cnc Milling Machinist: GRISEL GARZA ([phone]) [facility] ([facility]) [address] [place] [address] RBC (Bld) [#/Vol] 4.35 10*6/uL Normal 3.80-5.20 [facility] Comment on above: Performed By: #### L AB294 #### Cnc Milling Machinist: GRISEL GARZA ([phone]) [facility] ([facility]) [address] [place] [address] WBC (Bld) [#/Vol] 9.3 10*3/uL Normal 3.6-10.[address] [facility] Comment on above: Performed By: #### L AB294 #### Cnc Milling Machinist: GRISEL GARZA ([phone]) [facility] ([facility]) [address] [place] [address] CBC panel Auto (Bld)on 04-07 Erythrocyte distribution width (RBC) [Ratio] 13.5 % 11.5 - 15.0 % [facility] Hematocrit (Bld) [Volume fraction] 40.5 % 35.0 - 47.0 % [facility] Hemoglobin (Bld) [Mass/Vol] 13.1 g/dL 11.7 - 16.0 g/dL [facility] Interpretation and review of laboratory results Normal [facility] MCH (RBC) [Entitic mass] 30.1 pg 26. 0 - 34.0 pg [facility] MCHC (RBC) [Mass/Vol] 32.3 % 30.5 - 36.0 % [facility] MCV (RBC) [Entitic vol] 93.1 fL 77.0 - 99.0 fL [facility] Platelet mean volume (Bld) [Entitic vol] 11.5 fL 9.0 - 12.7 fL [facility] Platelets (Bld) [#/Vol] 168 10*3/uL 140 - 440 10*3/uL [facility] RBC (Bld) [#/Vol] 4.35 10*6/uL 3.80 - 5.2 0 10*6/uL [facility] WBC (Bld) [#/Vol] 9.3 10*3/uL 3.6 - 10.7 10*3/uL [facility] Consulton 04-07-2024 Consult [facility] [place] [facility] Cardiology /Electrophysiology Consult Note Reason for Consult/Chief Complaint: Complete heart block Referring provider: Ayah Established office technology professor: Ayah History of Present Illness: Jennifer Gonzalez is a 73 y.o. female who [...] EGFR >90.0 78.1 No results for input(s): "CKTOTAL", "CKMB", "CKMBINDEX", "TROPONINI" in the last 72 hours. Recent Labs 04/06/24142104/07/24 000 WBC 7.2 9.3 HGB 11.7 13.1 HCT 36.1 40.5 MCV 93.8 93.1 PLT 156 168 No results found for: "HGBA1C" No results found for: "TSH" No results found for: "CHOL" No results found for: "HDL" No results found for: "LDLCALC" No results found for: "TRIG" No results found for: "CHOLHDL" No results found for: "LDLCHOLESTER" No results for input(s): "BNP" in the last 72 hours. No results for input(s): "INR" in the last 72 hours. Results from [...] AM (Final) Interpretation Summary Aortic Valve: Marsh Katharine 3 Ultra bioprosthetic aortic valve with a [...] (Final) Conclusion Successful TAVR with a 23mm Katharine S3u, via right transfemoral approach TAVR Procedural Report Interventional Cardiologists: -Srinivasa Poon MD -Devaughn Young MD (F (more content not included)... Normal [facility] Consult [facility] [place] [facility] Cardiology /Electrophysiology Consult Note Reason for Consult/Chief Complaint: AV Block s/p TAVR Established office technology professor: Ayah History of Present Illness: Jennifer Gonzalez is a 73 y.o. female with [...] EGFR >90.0 78.1 No results for input(s): "CKTOTAL", "CKMB", "CKMBINDEX", "TROPONINI" in the last 72 hours. Recent Labs 04/06/24142104/07/24 0007 WBC 7.2 9.3 HGB 11.7 13.1 HCT 36.1 40.5 MCV 93.8 93.1 PLT 156 168 No results found for: "HGBA1C" No results found for: "TSH" No results found for: "CHOL" No results found for: "HDL" No results found for: "LDLCALC" No results found for: "TRIG" No results found for: "CHOLHDL" No results found for: "LDLCHOLESTER" No results for input(s): "BNP" in the last 72 hours. No results for input(s): "INR" in the last 72 hours. Results from last 7 days Lab Units 04/01/24 0000 AST U/L 21 ALT U/L 26 No results found for: "IRON", "TIBC", FERRITIN Cardiac Tests Personally Reviewed: Last EKG [...] be incomplete. Interpretation Summary Aortic Valve: Marsh Katharine 3 Ultra bioprosthetic aortic valve with a [...] dilated ascending (more content not included)... Normal [facility] ECG 12-LEADon 04-07-2024 ECG 12-LEAD IMPRESSION: Sinus arrhythmia RBBB and LPFB Nonspecific ST and T wave changes Electronically Signed On 04-07-2024 10:38:52 EDT by Charles Hidalgo [facility] ECG 12-LEAD IMPRESSION: Sinus rhythm RBBB and LPFB Nonspecific ST and T wave changes Electronically Signed On 04-07-2024 10:38:42 EDT by Charles Dunaway [facility] IDNon 04-07-2024 IDN Problem: Cardiovascular - Adult Goal: Maintains optimal cardiac output and hemodynamic stability Outcome: Progressing Goal: Absence of cardiac dysrhythmias or at baseline Outcome: Progressing Problem: Hematologic - Adult Goal: Maintains hematologic stability Outcome: Progressing Normal [facility] Laboratory - Chemistry and C hemistry - challengeon 04-07-2024 Glucose [Mass/Vol] 162 mg/dL High 70 - 100 mg/dL [facility] Glucose [Mass/Vol] 222 mg/dL High 70 - 100 mg/dL [facility] Glucose [Mass/Vol] 208 mg/dL High 70 - 100 mg/dL [facility] No Panel Informationon 04-07 Interpretation and review of laboratory results Abnormal [facility] Performed by: [facility], [address] [place] [address] CLIA ID: [id number] [facility] Interpretation and review of laboratory results Abnormal [facility] Performed by: [facility], [address] [place] [id number] CLIA ID: [id number] [facility] Sinus arrhythmia RBBB and LPFB Nonspecific ST and T wave changes Electronically Signed On 04-07-2024 10:38:52 EDT by Charles Burgess MD - 04/07/2024 IMPRESSION: Sinus arrhythmia RBBB and LPFB Nonspecific ST and T wave changes Electronically Signed On 04-07-2024 10:38:52 EDT by Charles Dunaway [facility] P Joppa 35 degrees [facility] RI Interval 174 ms [facility] QRS Joppa 94 degrees [facility] QRSD Interval 143 ms [facility] QT Interval 375 ms [facility] QTC Interval 483 ms [facility] T Wave Joppa -67 degrees [facility] Sinus rhythm RBBB and LPFB Nonspecific ST and T wave changes Electronically Signed On 04-07-2024 10:38:42 EDT by Charles Burgess MD - 04/07/2024 IMPRESSION: Sinus rhythm RBBB and LPFB Nonspecific ST and T wave changes Electronically Signed On 04-07-2024 10:38:42 EDT by Charles Dunaway [facility] Interpretation and review of laboratory results Abnormal [facility] Performed by: [facility], [address] [place] [address] CLIA ID: [id number] [facility] No Panel InformationOrdered By: Charles Dunaway on 04-07-2024 P Joppa 51 degrees [facility] Work Phone: RI Interval 194 ms [facility] Work Phone: QRS Joppa 114 degrees [facility] Work Phone: QRSD Interval 144 ms [facility] Work Phone: QT Interval 406 ms [facility] Work Phone: QTC Interval 461 ms [facility] Work Phone: T Wave Joppa 208 degrees [facility] Work Phone: [employer] [facility] Work Phone: Nursing Noteon 04-07-2024 Nursing [...] lab for Pacemaker placement. Consent signed. Normal [facility] Progress Noteon 04-07-2024 Progress Note Spoke with Mr. Gonzalez regarding patient status. Questions answered. He will be here around 1-2 p today. He is aware that she will likely be going for pacemaker here shortly. Normal [facility] US Heart TransthoracicOrdere d By: Smith Nobles on 04-07-2024 Ascending Aorta 3.5 cm [facility] Work Phone: [phone] Ascending Aorta Index 1.75 cm/m2 [facility] Work Phone: [phone] AV Area by Peak Velocity 1.3 cm2 [facility] Work Phone: [phone] AV Area by VTI 1.5 cm2 [facility] Work Phone: AV Mean Gradient 12 mmHg [facility] Work Phone: [phone] AV Mean Velocity 1.6 m/s [facility] Work Phone: [phone] AV Peak Gradient 21 mmHg [facility] Work Phone: [phone] AV Peak Velocity 2.3 m/s [facility] Work Phone: [phone] AV Velocity Ratio 0.52 [facility] Work Phone: AV VTI 37.1 cm [facility] Work Phone: [phone] BENITA/BSA Peak Velocity 0.7 cm2/m2 [facility] Work Phone: BENITA/BSA VTI 0.8 cm2/m2 [facility] Work Phone: EF BP 66 % 55 - 100 % [facility] Work Phone: [phone] Fractional Shortening 2D 30 % 28 - 44 % [facility] Work Phone: Interpretation and review of laboratory results Abnormal [facility] Work Phone: IVC Diameter 1.7 cm [facility] Work Phone: IVSd 1.4 cm Abnormal 0.6 - 0.9 cm [facility] Work Phone: LA Volume 2C 44 mL 22 - 52 mL [facility] Work Phone: [phone] LA Volume 4C 63 mL Abnormal 22 - 52 mL [facility] Work Phone: [phone] LA Volume A/L 62 mL [facility] [employer] Work Phone: LA Volume BP 59 mL Abnormal 22 - 52 mL [facility] Work Phone: LA Volume Index 2C 22 mL/m2 16 - 34 mL/m2 [facility] Work Phone: LA Volume Index 4C 32 mL/m2 16 - 34 mL/m2 [facility] Work Phone: [phone] LA Volume Index A/L 31 mL/m2 16 - 34 mL/m2 [facility] Work Phone: LA Volume Index BP 30 ml/m2 16 - 34 ml/m2 [facility] Work Phone: LV E' Lateral Velocity 8 cm/s [facility] [employer] Work Phone: LV EDV A2C 56 mL [facility] Work Phone: LV EDV A4C 62 mL [facility] Work Phone: [phone] LV EDV BP 63 mL 56 - 104 mL [facility] Work Phone: LV EDV Index A2C 28 mL/m2 [facility] Work Phone: LV EDV Index A4C 31 mL/m2 [facility] Work Phone: LV EDV Index BP 32 mL/m2 [facility] Work Phone: LV Ejection Fraction A2C 68 % [facility] Work Phone: LV Ejection Fraction A4C 69 % [facility] Work Phone: LV ESV A2C 18 mL [facility] Work Phone: LV ESV A4C 20 mL [facility] Work Phone: [phone] LV ESV BP 21 mL 19 - 49 mL [facility] Work Phone: LV ESV Index A2C 9 mL/m2 [facility] Work Phone: LV ESV Index A4C 10 mL/m2 [facility] Work Phone: LV ESV Index BP 11 mL/m2 [facility] Work Phone: [phone] LV Mass 2D 175.8 g Abnormal 67 - 162 g [facility] Work Phone: LV Mass 2D Index 87.9 g/m2 43 - 95 g/m2 [facility] Work Phone: LV RWT Ratio 0.55 [facility] Work Phone: LVIDd 4.0 cm 3.9 - 5.3 cm [facility] Work Phone: LVIDd Index 2.00 cm/m2 [facility] Work Phone: LVIDs 2.8 cm [facility] Work Phone: [phone] LVIDs Index 1.40 cm/m2 [facility] Work Phone: LVOT Area 2.5 cm2 [facility] Work Phone: LVOT Cardiac Output 6.8 liter/minute [facility] Work Phone: LVOT Diameter 1.8 cm [facility] Work Phone: LVOT Mean Gradient 3 mmHg [facility] Work Phone: [phone] LVOT Peak Gradient 5 mmHg [facility] Work Phone: [phone] LVOT Peak Velocity 1.2 m/s [facility] Work Phone: [phone] LVOT Stroke Volume Index 27.2 mL/m2 [facility] Work Phone: [phone] LVOT SV 54.4 ml [facility] Work Phone: [phone] LVOT VTI 21.4 cm [facility] Work Phone: [phone] LVOT:AV VTI Index 0.58 [facility] Work Phone: [phone] LVPWd 1.1 cm Abnormal 0.6 - 0.9 cm [facility] Work Phone: [phone] Pulm Vein A Duration 108.5 ms [facility] Work Phone: [phone] Pulm Vein A Velocity 0.4 m/s [facility] Work Phone: [phone] Pulm Vein Peak D Velocity 0.5 m/s [facility] Work Phone: [phone] Pulm Vein Peak S Velocity 0.4 m/s [facility] Work Phone: Pulm Vein S/D 0.8 [facility] Work Phone: RA Area 4C 41.8 mL [facility] Work Phone: [phone] RA Area 4C 40.8 mL [facility] Work Phone: [phone] RV Basal Dimension 2.5 cm [facility] Work Phone: [phone] RV Free Wall Peak S' 11 cm/s [facility] Work Phone: [phone] RV Longitudinal Dimension 4.8 cm [facility] Work Phone: [phone] RV Mid Dimension 2.1 cm [facility] Work Phone: [phone] TAPSE 2.3 cm 1.7 cm [facility] Work Phone: [phone] [facility] Work Phone: Heart Transthoracicon Aortic Valve: Marsh Katharine 3 Ultra bioprosthetic aortic valve with a [...] is normal. Trace regurgitation. Aortic Valve Marsh Katharine 3 Ultra bioprosthetic aortic valve with a [...] on 04-07-2024 Heart rate 77 /min bpm [employer] Work Phone: Vital signson 04-07-2024 Heart rate 99 /min bpm [employer] ABO and Rh group Confirm Nom (Bld)on 04-06-2024 ABO group Nom (Bld) O [employer] D Ag Ql (RBC) Negative [facility] [employer] BASIC METABOLIC PANELon Anion gap [Moles/Vol] 4 mmol/L Normal 3-13 [facility] Comment on above: Performed By: #### L [id number] ####Cnc Milling Machinist: GRISEL GARZA ([phone])[facility] ([facility])[address] [place] [address] Calcium [Mass/Vol] 7.7 mg/dL Low 8.4-10.[address] [facility] Comment on above: Performed By: #### L [id number] ####C[employer] Milling Machinist: GRISEL GARZA ([phone])[facility] ([facility])[address] [place] [address] Chloride [Moles/Vol] 112 mmol/L High 98-107 [facility] Comment on above: Performed By: #### L [id number] ####C[employer] Milling Machinist: GRISEL GARZA ([phone])[facility] ([facility])[address] [place] [address] CO2 [Moles/Vol] 21 mmol/L Low 22-30 [facility] Comment on above: Performed By: #### L [id number] ####C[employer] Milling Machinist: GRISEL GARZA ([phone])[facility] ([facility])[address] [place] [address] Creatinine [Mass/Vol] 0.55 mg/dL Normal 0.52-1.04 [facility] Comment on above: Performed By: #### L AB15 ####C[employer] Milling Machinist: GRISEL GARZA ([phone])[facility] ([facility])[address] [place] [address] GLOMERULAR FILTRATION RATE ML/MIN/1.73 SQ M.PREDICTED >90.0 Normal >60.[address] [facility] Comment on above: Result Comment: Calc ulation based on the Chronic Kidney Disease Epidemiology Collaboration (CKD-EPI) equation refit without adjustment for race Performed By: #### L AB15 ####C[employer] Milling Machinist: GRISEL GARZA ([phone])[facility] ([facility])[address] [place] [address] [place] Glucose [Mass/Vol] 158 mg/dL High 70-[address] [facility] Comment on above: Performed By: #### L AB15 ####Cnc Milling Machinist: GRISEL GARZA ([phone])[facility] ([facility])[address] [place] [address] Potassium [Moles/Vol] 3.4 mmol/L Low 3.5-5.1 [facility] Comment on above: Performed By: #### L AB15 ####Cnc Milling Machinist: GRISEL GARZA ([phone])[facility] ([facility])[address] [place] [address] Sodium [Moles/Vol] 137 mmol/L Normal 135-145 [facility] Comment on above: Performed By: #### L AB15 ####Cnc Milling Machinist: GRISEL GARZA ([phone])[facility])[address] [place] [address] Urea nitrogen [Mass/Vol] 17 mg/dL Normal 7-17 [facility] Comment on above: Performed By: #### L AB15 ####C[employer] Milling Machinist: GRISEL GARZA ([phone])[facility] ([facility])[address] [place] [address] BLOOD TYPE AND SCREEN GELon 04-06-2024 ABO GROUPING O Normal [facility] Comment on above: Performed By: #### L [id number] ####C[employer] Milling Machinist: GRISEL GARZA ([phone])[facility] ([facility])[address] [place] [address] RH TYPE IN BLOOD Negative Normal [facility] Comment on above: Performed By: #### L [id number] ####Cnc Milling Machinist: GRISEL GARZA ([phone])[facility] ([facility])[address] [place] [address] Basic metabolic 1998 panelon 04-06-2024 Anion gap [Moles/Vol] 4 mmol/L 3 - 13 mmol/L [facility] Calcium [Mass/Vol] 7.7 mg/dL Low 8.4 - 10. 4 mg/dL [facility] Chloride [Moles/Vol] 112 mmol/L High 98 - 10 7 mmol/L [facility] CO2 [Moles/Vol] 21 mmol/L Low 22 - 30 mmol/L [facility] Creatinine [Mass/Vol] 0.55 mg/dL 0.52 - 1.04 mg/dL [facility] GFR/1.73 sq M.predicted (S/P/Bld) [Vol rate/Area] - PINF [facility] Comment on above: Calculation based on the Chronic Kidney Disease Epidemiology Collaboration (CKD-EPI) equation refit without adjustment for race Glucose [Mass/Vol] 158 mg/dL High 70 - 100 mg/dL [facility] Interpretation and review of laboratory results Abnormal [facility] Potassium [Moles/Vol] 3.4 mmol/L Low 3.5 - 5.1 mmol/L [facility] Sodium [Moles/Vol] 137 mmol/L 135 - 145 mmol/L [facility] Urea nitrogen [Mass/Vol] 17 mg/dL 7 - 17 mg/d L [facility] Blood type and Crossmatch pa bill (Bld)on 04-06-2024 ABO group Nom (Bld) O [facility] Blood group antibody screen GEL Ql Negative [facility] D Ag Ql (RBC) Negative [facility] CBC (HEMOGRAM)on 04-06-2024 Erythrocyte distribution width (RBC) [Ratio] 13.5 % Normal 11.5-15.[address] [facility] Comment on above: Performed By: #### L [id number] #### Cnc Milling Machinist: GRISEL GARZA ([phone]) [facility]) [address] [place] [address] Hematocrit (Bld) [Volume fraction] 36.1 % Normal 35.0-47.[address] [facility] Comment on above: Performed By: #### L [id number] #### Cnc Milling Machinist: GRISEL GARZA ([phone]) [facility] ([facility]) [address] [place] [address] Hemoglobin (Bld) [Mass/Vol] 11.7 g/dL Normal 11.7-16.[address] [facility] Comment on above: Performed By: #### L [id number] #### [employer] Milling Machinist: GRISEL GARZA ([id number]) [facility] ([facility]) [address] [place] [address] MCH (RBC) [Entitic mass] 30.4 pg Normal 26.0-34.[address] [facility] Comment on above: Performed By: #### L [id number] #### C[employer] Milling Machinist: GRISEL GARZA ([phone]) [facility]) [address] [place] [address] MCHC 32.4 % Normal 30.5-36.[address] [facility] Comment on above: Performed By: #### L [id number] #### C[employer] Milling Machinist: GRISEL GARZA ([phone]) [facility] ([facility]) [address] [place] [address] MCV (RBC) [Entitic vol] 93.8 fL Normal 77.0-99.0 S [facility] Comment on above: Performed By: #### L [id number] #### Cnc Milling Machinist: GRISEL GARZA ([phone]) [facility]) [address] [place] [address] Platelet mean volume (Bld) [Entitic vol] 11.6 fL Normal 9.0-12.[address] [facility] Comment on above: Performed By: #### L [id number] #### [employer] Milling Machinist: GRISEL GARZA ([id number]) [facility] ([facility]) [address] [place] [address] Platelets (Bld) [#/Vol] 156 10*3/uL Normal 140-[address] [facility] Comment on above: Performed By: #### L [id number] #### C[employer] Milling Machinist: GRISEL GARZA ([id number]) [facility] ([facility]) [address] [place] [address] RBC (Bld) [#/Vol] 3.85 10*6/uL Normal 3.80-5.[address] [facility] Comment on above: Performed By: #### L [id number] #### C[employer] Milling Machinist: GRISEL GARZA ([phone]) [facility]) [address] [place] [address] WBC (Bld) [#/Vol] 7.2 10*3/uL Normal 3.6-10.[address] [facility] Comment on above: Performed By: #### L [id number] #### [employer] Milling Machinist: GRISEL GARZA ([phone]) [facility] ([facility]) [address] [place] [address] CBC panel Auto (Bld)on 04-06 Erythrocyte distribution width (RBC) [Ratio] 13.5 % 11.5 - 15.0 % [facility] Hematocrit (Bld) [Volume fraction] 36.1 % 35.0 - 47.0 % [facility] Hemoglobin (Bld) [Mass/Vol] 11.7 g/dL 11.7 - 16.0 g/dL [facility] Interpretation and review of laboratory results Normal [facility] MCH (RBC) [Entitic mass] 30.4 pg 26. 0 - 34.0 pg [facility] MCHC (RBC) [Mass/Vol] 32.4 % 30.5 - 36.0 % [facility] MCV (RBC) [Entitic vol] 93.8 fL 77.0 - 99.0 fL [facility] Platelet mean volume (Bld) [Entitic vol] 11.6 fL 9.0 - 12.7 fL [facility] Platelets (Bld) [#/Vol] 156 10*3/uL 140 - 440 10*3/uL [facility] RBC (Bld) [#/Vol] 3.85 10*6/uL 3.80 - 5.2 0 10*6/uL [facility] WBC (Bld) [#/Vol] 7.2 10*3/uL 3.6 - 10.7 10*3/uL [facility] Cardiac catheterization stud yon 04-06-2024 Successful TAVR with a 23mm Katharine S3u, via right transfemoral approach TAVR Procedural Report Interventional Cardiologists: -Srinivasa Poon MD -Devaughn Young MD (Fellow) Cardiothoracic Surgeon: -Jayson Key MD Procedure: 1. A 23 KATHARINE S3 VALVE IMPLANTATION. 2. TRANSFEMORAL TRANSCATHETER AORTIC [...] Via the right femoral vein, a 6 Kittitian sheath was placed and temporary pacing wire was placed into the RV apex with appropriate capture, in addition sterile tubing was attached and given the anesthesia for central access. Via right radial artery, a 6-Kittitian sheath was placed and the pigtail catheter was placed into the aortic annulus with confirmation the implant angle. Via the right femoral artery, a 6-Kittitian sheath was placed. The patient was then heparinized. Next, two Perclose devices were used using the pre-close strategy. A Super Stiff wire was then placed through the second Perclose into the descending aorta. Then, a 14-Kittitian Katharine E-sheath was introduced over the wire into [...] AL1 catheter was removed. Next a 23mm Katharine S3 valve was then advanced through the [...] care of your patient while hospitalized at [facility]. I will continue to follow along while hospitalized. Please do not hesitate to call with any questions. [facility] Cardiac catheterization stud yOrdered By: Srinivasa Poon on 04-06-2024 [facility] Work Phone: IDNon 04-06-2024 IDN The patient [...] include continue to reinforce and monitor. Normal [facility] Laboratory - Chemistry and C hemistry - challengeon 04-06-2024 Glucose [Mass/Vol] 239 mg/dL High 70 - 100 mg/dL [facility] Glucose [Mass/Vol] 166 mg/dL High 70 - 100 mg/dL [facility] Glucose [Mass/Vol] 174 mg/dL High 70 - 100 mg/dL [facility] Glucose [Mass/Vol] 253 mg/dL High 70 - 100 mg/dL [facility] No Panel Informationon 04-06 Interpretation and review of laboratory results Abnormal [facility] Performed by: [facility], [address] [place] [id number] CLIA ID: [id number] [facility] Interpretation and review of laboratory results Abnormal [facility] Performed by: [facility], [address] [place] [address] CLIA ID: [id number] [facility] Interpretation and review of laboratory results Abnormal [facility] Performed by: [facility], [address] [place] [id number] CLIA ID: [id number] [facility] Interpretation and review of laboratory results Abnormal [facility] Performed by: [facility], [address] [place] [address] CLIA ID: [id number] [facility] Nursing Noteon 04-06-[address] Hernandez made aware of MBS 253 new orders received. Normal [facility] Op Noteon 04-06-2024 Op Note TAVR Procedural Report Interventional Cardiologists: -Srinivasa Poon MD -Devaughn Young MD (Fellow) Cardiothoracic Surgeon: -Jayson Key MD, who served as a collaborating cardiothoracic surgeon and was present for the procedure and remained available in the event that emergency surgical intervention was required. Procedure: 1. A 23 KATHARINE S3 VALVE IMPLANTATION. 2. TRANSFEMORAL TRANSCATHETER AORTIC [...] Via the right femoral vein, a 6 Kittitian sheath was placed and temporary pacing wire was placed into the RV apex with appropriate capture, in addition sterile tubing was attached and given the anesthesia for central access. Via right radial artery, a 6-Kittitian sheath was placed and the pigtail catheter was placed into the aortic annulus with confirmation the implant angle. Via the right femoral artery, a 6-Kittitian sheath was placed. The patient was then heparinized. Next, two Perclose devices were used using the pre-close strategy. A Super Stiff wire was then placed through the second Perclose into the descending aorta. Then, a 14-Kittitian Katharine E-sheath was introduced over the wire into [...] AL1 catheter was removed. Next a 23mm Katharine S3 valve was then advanced through the [...] minimal blood loss. No immediate complications. Normal [facility] US Heart TransthoracicOrdere d By: Alejandro Walls on 04-06-2024 AV Area (Pre-TAVR) 0.5 cm2 [facility] Work Phone: [phone] AV Area by Peak Velocity 1.7 cm2 [facility] Work Phone: [phone] AV Area by VTI 1.7 cm2 [facility] Work Phone: [phone] AV Mean Gradient 4 mmHg [facility] Work Phone: [phone] AV Mean Gradient (Pre-TAVR) 46 mmHg [facility] Work Phone: [phone] AV Mean Velocity 0.9 m/s [facility] Work Phone: [phone] AV Peak Gradient 7 mmHg [facility] Work Phone: [phone] AV Peak Gradient (Pre-TAVR) 69 mmHg [facility] Work Phone: [phone] AV Peak Velocity 1.3 m/s [facility] Work Phone: [phone] AV Peak Velocity (Pre-TAVR) 4.1 m/s [facility] Work Phone: [phone] AV Velocity Ratio 0.62 [facility] Work Phone: AV VTI 24.9 cm [facility] Work Phone: BENITA/BSA Peak Velocity 0.8 cm2/m2 [facility] Work Phone: BENITA/BSA VTI 0.8 cm2/m2 [facility] [employer] Work Phone: EF BP 69 % 55 - 100 % [facility] Work Phone: Fractional Shortening 2D 20 % 28 - 44 % [facility] Work Phone: Interpretation and review of laboratory results Abnormal [facility] [employer] Work Phone: IVSd 1.4 cm Abnormal 0.6 - 0.9 cm [facility] Work Phone: LV EDV A2C 49 mL [facility] Work Phone: LV EDV A4C 83 mL [facility] Work Phone: LV EDV BP 69 mL 56 - 104 mL [facility] Work Phone: LV EDV Index A2C 24 mL/m2 [facility] Work Phone: LV EDV Index A4C 41 mL/m2 [facility] Work Phone: LV EDV Index BP 34 mL/m2 [facility] Work Phone: LV Ejection Fraction A2C 63 % [facility] Work Phone: LV Ejection Fraction A4C 74 % [facility] Work Phone: LV ESV A2C 18 mL [facility] [facility] Work Phone: LV ESV A4C 22 mL [facility] Work Phone: LV ESV BP 22 mL 19 - 49 mL [facility] Work Phone: LV ESV Index A2C 9 mL/m2 [facility] Work Phone: LV ESV Index A4C 11 mL/m2 [facility] Work Phone: LV ESV Index BP 11 mL/m2 [facility] Work Phone: LV Mass 2D 209.0 g Abnormal 67 - 162 g [facility] Work Phone: LV Mass 2D Index 103.4 g/m2 Abnormal 43 - 95 g/m2 [facility] Work Phone: LV RWT Ratio 0.70 [facility] Work Phone: LVIDd 4.0 cm 3.9 - 5.3 cm [facility] Work Phone: LVIDd Index 1.98 cm/m2 [facility] Work Phone: LVIDs 3.2 cm [facility] Work Phone: LVIDs Index 1.58 cm/m2 [facility] [employer] Work Phone: [phone] LVOT Area 2.8 cm2 [facility] [employer] Work Phone: [phone] LVOT Cardiac Output 2.8 liter/minute [facility] [employer] Work Phone: [phone] LVOT Diameter 1.9 cm [facility] Work Phone: [phone] LVOT Mean Gradient 1 mmHg [facility] [employer] Work Phone: [phone] LVOT Peak Gradient 2 mmHg [facility] [employer] Work Phone: [phone] LVOT Peak Velocity 0.8 m/s [facility] [employer] Work Phone: [phone] LVOT Stroke Volume Index 20.5 mL/m2 [facility] [employer] Work Phone: [phone] LVOT SV 41.4 ml [facility] [employer] Work Phone: [phone] LVOT VTI 14.6 cm [facility] [employer] Work Phone: [phone] LVOT:AV VTI Index 0.59 [facility] Work Phone: [phone] LVPWd 1.4 cm Abnormal 0.6 - 0.9 cm [facility] [employer] Work Phone: [phone] [facility] [employer] Work Phone: [phone] Heart Transthoracicon Left Ventricle: Left ventricle size [...] cm2 with DI 0.19. Post TAVR: Marsh Katharine 3 Ultra bioprosthetic aortic valve that is [...] cm2 with DI 0.19. Post TAVR: Marsh Katharine 3 Ultra bioprosthetic aortic valve that is [...] Echo Additional Conclusions Technically difficult study. CV [facility] 36on 04-01-2024 36 Patient called me back and requested me to fax lab orders to [facility]. [phone] I faxed CBC and CMP orders only.Confirmed She is going today. Normal [facility] 36 Spoke with patient and she will have CMP and CBC completed at [facility] today. Jamie Godinez to fax lab orders Normal [facility] CBC W Auto Differential pane l (Bld)on 04-01-2024 Basophils (Bld) [#/Vol] 0.10 10*3/uL Normal <0.11 [facility] Comment on above: Order Comment: Speci men Type: BLOOD SPECIMENOrdering Facility: [facility] Address: [address] [place], [place] [address] Performed By: #### 5 7021-8 ####[facility] LABCLIA [id number] [facility] [address] [place] Basophils/100 WBC (Bld) 1.2 % Normal C [facility] Comment on above: Order Comment: Speci men Type: BLOOD SPECIMENOrdering Facility: [facility] Address: [address] [place] [address] Performed By: #### 5 7021-8 ####[facility] LABCLIA [id number] [place] [address] [place] Differential cell count method Nom (Bld) Auto Normal [facility] Comment on above: Order Comment: Speci men Type: BLOOD SPECIMENOrdering Facility: [facility] Address: [address] [place] [address] Performed By: #### 5 7021-8 ####[facility] LABCLIA [id number] [place] [address] [place] Eosinophils (Bld) [#/Vol] 0.44 10*3/uL Normal <0.46 [facility] Comment on above: Order Comment: Speci men Type: BLOOD SPECIMENOrdering Facility: [facility] Address: [address] [place] [address] Performed By: #### 5 7021-8 ####[facility] LABCLIA [id number] [place] [address] [place] Eosinophils/100 WBC (Bld) 5.1 % Normal [facility] Comment on above: Order Comment: Speci men Type: BLOOD SPECIMENOrdering Facility: [facility] Address: [address] [place] [address] Performed By: #### 5 7021-8 ####[facility] LABCLIA [id number] [place] [address] [place] Erythrocyte distribution width (RBC) [Ratio] 13.4 % Normal 11.5-15.0 [facility] Comment on above: Order Comment: Speci men Type: BLOOD SPECIMENOrdering Facility: [facility] Address: [address] [place] [address] Performed By: #### 5 7021-8 ####[facility] LABCLIA [id number] [place] [address] [place] Hematocrit (Bld) [Volume fraction] 45.5 % Normal 36.0-46.0 [facility] Comment on above: Order Comment: Speci men Type: BLOOD SPECIMENOrdering Facility: [facility] Address: [address] [place] [address] Performed By: #### 5 7021-8 ####[facility] LABCLIA [id number] [place] [address] [place] Hemoglobin (Bld) [Mass/Vol] 14.6 g/dL Normal 11.5-15.5 [facility] Comment on above: Order Comment: Speci men Type: BLOOD SPECIMENOrdering Facility: [facility] Address: [address] [place] [address] Performed By: #### 5 7021-8 ####[facility] LABCLIA [id number] [place] [address] [place] Immature granulocytes (Bld) [#/Vol] 0.03 10*3/uL Normal <0.10 [facility] Comment on above: Order Comment: Speci men Type: BLOOD SPECIMENOrdering Facility: [facility] Address: [address] [place] [address] Performed By: #### 5 7021-8 ####[facility] LABCLIA [id number] [place] [address] [place] Immature granulocytes/100 WBC (Bld) 0.4 % Normal [facility] Comment on above: Order Comment: Speci men Type: BLOOD SPECIMENOrdering Facility: [facility] Address: [address] [place] [address] Performed By: #### 5 7021-8 ####[facility] LABCLIA [id number] [place] [id number] [place] Lymphocytes (Bld) [#/Vol] 2.30 10*3/uL Normal 1.00-4.00 [facility] Comment on above: Order Comment: Speci men Type: BLOOD SPECIMENOrdering Facility: [facility] Address: [address] [place] [address] Performed By: #### 5 7021-8 ####[facility] LABCLIA [id number] [place] [address] [place] Lymphocytes/100 WBC (Bld) 26.8 % Normal [facility] Comment on above: Order Comment: Speci men Type: BLOOD SPECIMENOrdering Facility: [facility] Address: [address] [place] [address] Performed By: #### 5 7021-8 ####[facility] LABCLIA [id number] [place] [address] [place] MCH (RBC) [Entitic mass] 31.1 pg Normal 26.0-34.0 [facility] Comment on above: Order Comment: Speci men Type: BLOOD SPECIMENOrdering Facility: [facility] Address: [address] [place] [address] Performed By: #### 5 7021-8 ####[facility] LABCLIA [id number] [place] [address] [place] MCHC (RBC) [Mass/Vol] 32.1 g/dL Normal 30.5-36.0 [facility] Comment on above: Order Comment: Speci men Type: BLOOD SPECIMENOrdering Facility: [facility] Address: [address] [place] [address] Performed By: #### 5 7021-8 ####[facility] LABCLIA [id number] [place] [address] [place] MCV (RBC) [Entitic vol] 97.0 fL Normal 80.0-100.[address] [facility] Comment on above: Order Comment: Speci men Type: BLOOD SPECIMENOrdering Facility: [facility] Address: [address] [place] [address] Performed By: #### 5 7021-8 ####[facility] LABCLIA [id number] [address] [address] [place] Monocytes (Bld) [#/Vol] 0.88 10*3/uL High <0.87 [facility] Comment on above: Order Comment: Speci men Type: BLOOD SPECIMENOrdering Facility: [facility] Address: [address] [place] [address] Performed By: #### 5 7021-8 ####[facility] LABCLIA [id number] [place] [address] [place] Monocytes/100 WBC (Bld) 10.3 % Normal C [facility] Comment on above: Order Comment: Speci men Type: BLOOD SPECIMENOrdering Facility: [facility] Address: [address] [place] [address] Performed By: #### 5 7021-8 ####[facility] LABCLIA [id number] [place] [address] [place] Neutrophils (Bld) [#/Vol] 4.82 10*3/uL Normal 1.45-7.50 [facility] Comment on above: Order Comment: Speci men Type: BLOOD SPECIMENOrdering Facility: [facility] Address: [address] [place] [address] Performed By: #### 5 7021-8 ####[facility] LABCLIA [id number] [place] [id number] [place] Neutrophils/100 WBC (Bld) 56.2 % Normal [facility] Comment on above: Order Comment: Speci men Type: BLOOD SPECIMENOrdering Facility: [facility] Address: [address] [place] [address] Performed By: #### 5 7021-8 ####[facility] LABCLIA [id number] [address] [address] [place] Nucleated RBC (Bld) [#/Vol] 10*3/uL Normal <0.01 [facility] Comment on above: Order Comment: Speci men Type: BLOOD SPECIMENOrdering Facility: [facility] Address: [address] [place] [address] Performed By: #### 5 7021-8 ####[facility] LABCLIA [id number] [place] [address] [place] Nucleated RBC/100 WBC (Bld) [Ratio] 0.0 /100 WBC Normal [facility] Comment on above: Order Comment: Speci men Type: BLOOD SPECIMENOrdering Facility: [facility] Address: [address] [place] [address] Performed By: #### 5 7021-8 ####[facility] LABCLIA [id number] [place] [address] [place] Platelet mean volume (Bld) [Entitic vol] 12.0 fL Normal 9.0-12.7 [facility] Comment on above: Order Comment: Speci men Type: BLOOD SPECIMENOrdering Facility: [facility] Address: [address] [place] [address] Performed By: #### 5 7021-8 ####[facility] LABCLIA [id number] [place] [address] [place] Platelets (Bld) [#/Vol] 199 10*3/uL Normal 150-400 [facility] Comment on above: Order Comment: Speci men Type: BLOOD SPECIMENOrdering Facility: [facility] Address: [address] [place] [address] Performed By: #### 5 7021-8 ####[facility] LABCLIA [id number] [place] [address] [place] RBC (Bld) [#/Vol] 4.69 10*6/uL Normal 3.90-5.20 [facility] Comment on above: Order Comment: Speci men Type: BLOOD SPECIMENOrdering Facility: [facility] Address: [address] [place] [address] Performed By: #### 5 7021-8 ####[facility] LABCLIA [id number] [address] [address] [place] WBC (Bld) [#/Vol] 8.57 10*3/uL Normal 3.70-11.00 [facility] Comment on above: Order Comment: Speci men Type: BLOOD SPECIMENOrdering Facility: [facility] Address: [address] [place] [address] Performed By: #### 5 7021-8 ####[facility] LABCLIA [id number] [place] [id number] [place] [facility] Comprehensive metabolic 2000 panelon 04-01-2024 Albumin [Mass/Vol] 4.2 g/dL Normal 3.9-4.9 [facility] Comment on above: Order Comment: Speci men Type: BLOOD SPECIMENOrdering Facility: [facility] Address: [address] [place] [address] Performed By: #### 2 4323-8 ####[facility] LABCLIA [id number] [place] [id number] [place] ALP [Catalytic activity/Vol] 68 U/L Normal 34-123 [facility] Comment on above: Order Comment: Speci men Type: BLOOD SPECIMENOrdering Facility: [facility] Address: [address] [place] [address] Performed By: #### 2 4323-8 ####[facility] LABCLIA [id number] [address] [address] [place] ALT [Catalytic activity/Vol] 26 U/L Normal 7-38 [facility] Comment on above: Order Comment: Speci men Type: BLOOD SPECIMENOrdering Facility: [facility] Address: [address] [place] [address] Performed By: #### 2 4323-8 ####[facility] LABCLIA [id number] [address] [address] [place] Anion gap [Moles/Vol] 13 mmol/L Normal 8-15 [facility] Comment on above: Order Comment: Speci men Type: BLOOD SPECIMENOrdering Facility: [facility] Address: [address] [place] [address] Performed By: #### 2 4323-8 ####[facility] LABCLIA [id number] [place] [address] [place] AST [Catalytic activity/Vol] 21 U/L Normal 13-35 [facility] Comment on above: Order Comment: Speci men Type: BLOOD SPECIMENOrdering Facility: [facility] Address: [address] [place] [address] Performed By: #### 2 4323-8 ####[facility] LABCLIA [id number] [place] [address] [place] Bilirubin [Mass/Vol] 0.8 mg/dL Normal 0.2-1.3 [facility] Comment on above: Order Comment: Speci men Type: BLOOD SPECIMENOrdering Facility: [facility] Address: [address] [place] [address] Performed By: #### 2 4323-8 ####[facility] LABCLIA [id number] [place] [address] [place] Calcium [Mass/Vol] 9.5 mg/dL Normal 8.5-10.2 [facility] Comment on above: Order Comment: Speci men Type: BLOOD SPECIMENOrdering Facility: [facility] Address: [address] [place] [address] Performed By: #### 2 4323-8 ####[facility] LABCLIA [id number] [place] [id number] [place] Chloride [Moles/Vol] 105 mmol/L Normal 98-107 [facility] Comment on above: Order Comment: Speci men Type: BLOOD SPECIMENOrdering Facility: [facility] Address: [address] [place] [address] Performed By: #### 2 4323-8 ####[facility] LABCLIA [id number] [place] [address] [place] CO2 [Moles/Vol] 21 mmol/L Low 22-30 [facility] Comment on above: Order Comment: Speci men Type: BLOOD SPECIMENOrdering Facility: [facility] Address: [address] [place] [address] Performed By: #### 2 4323-8 ####[facility] LABCLIA [id number] [place] [address] [place] Creatinine [Mass/Vol] 0.69 mg/dL Normal 0.58-0.96 [facility] Comment on above: Order Comment: Speci men Type: BLOOD SPECIMENOrdering Facility: [facility] Address: [address] [place] [address] Performed By: #### 2 4323-8 ####[facility] LABCLIA [id number] [place] [address] [place] Creatinine and Glomerular filtration rate.predicted panel (S/P/Bld) 91 mL/min/1.73m??? Normal >=60 [facility] Comment on above: Order Comment: Speci men Type: BLOOD SPECIMENOrdering Facility: [facility] Address: [address] [place] [address] Result Comment: Angélica mated Glomerular Filtration Rate [...] actual GFR. Performed By: #### 2 4323-8 ####[facility] LABCLIA [id number] [place] [address] [place] Glucose [Mass/Vol] 215 mg/dL High 74-99 [facility] Comment on above: Order Comment: Speci men Type: BLOOD SPECIMENOrdering Facility: [facility] Address: [address] [place] [address] Result Comment: The [place] [employer] (ADA) provides guidance for cutoff [...] Standards of Medical Care in Diabetes 2016, [place] [employer]. Diabetes Care. 2016.39(Suppl 1). Performed By: #### 2 4323-8 ####[facility] LABCLIA [id number] [place] [address] [place] Potassium [Moles/Vol] 4.6 mmol/L Normal 3.7-5.1 [facility] Comment on above: Order Comment: Thomas shelton Type: BLOOD SPECIMENOrdering Facility: [facility] Address: [address] [place] [address] Performed By: #### 2 4323-8 ####[facility] LABCLIA [id number] [address] [address] [place] Protein [Mass/Vol] 7.0 g/dL Normal 6.3-8.0 [facility] Comment on above: Order Comment: Fransiscoi men Type: BLOOD SPECIMENOrdering Facility: [facility] Address: [address] [place] [address] Performed By: #### 2 4323-8 ####[facility] LABCLIA [id number] [place] [id number] [place] Sodium [Moles/Vol] 139 mmol/L Normal 136-144 [facility] Comment on above: Order Comment: Fransiscoi men Type: BLOOD SPECIMENOrdering Facility: [facility] Address: [address] [place] [address] Performed By: #### 2 4323-8 ####[facility] LABCLIA [id number] [place] [address] [place] Urea nitrogen [Mass/Vol] 21 mg/dL Normal 7-21 [facility] Comment on above: Order Comment: Speci men Type: BLOOD SPECIMENOrdering Facility: [facility] Address: [address] [place] [address] Performed By: #### 2 4323-8 ####[facility] LABCLIA [id number] [place] [address] [place] TYPE + SCREENon 04-01-2024 ABO O Normal [facility] Comment on above: Order Comment: Speci men Type: BLOOD SPECIMENOrdering Facility: [facility] Address: [address] [place] [address] Performed By: #### T SCR ####[facility] BLO[facility] BANKCLIA [id number] [place] [address] [place] HISTORICAL AB SCR STATUS Negative Normal [facility] Comment on above: Order Comment: Speci men Type: BLOOD SPECIMENOrdering Facility: [facility] Address: [address] [place] [address] Performed By: #### T SCR ####[facility] BLOOD BANKCLIA [id number] [place] [address] [place] Rh Nom (Bld) Negative Normal [facility] Comment on above: Order Comment: Speci men Type: BLOOD SPECIMENOrdering Facility: [facility] Address: [address] [place] [address] Performed By: #### T SCR ####[facility] BLOOD BANKCLIA [id number] [place] [id number] [place] TYPE AND SCREEN EXPIRATION 04/04/2024 23:59 Normal [facility] Comment on above: Order Comment: Speci men Type: BLOOD SPECIMENOrdering Facility: [facility] Address: [address] [place] [address] Performed By: #### T SCR ####CC MAIN BLOOD BANKCLIA [id number] [facility] [id number] [address] [place] 3603-17-2024 36 Requested on [employer] Normal [facility] 36on 03-16-2024 36 Approved through [employer]. Scanned under Media Auth# [id number] 04/06-04/07/24 Calendars updated. Just waiting for case request to add to [employer]. Normal [facility] 36 Pended TAVR case request, Gloria Davis VICE PRESIDENT PLANNING to sign. Normal [facility] CT ANGIOGRAM TAVRon 03-11-20 CT ANGIOGRAM TAVR Patient Name: JENNIFER GONZALEZ : 1950 Exam Date/Time: 03/10/2024 14:01 Procedure: CT ANGIOGRAM TAVR Ordering Provider: DAVIS MEGGAN Reason For Exam: AORTIC VALVE STENOSIS [facility]ve [facility] Cardiovascular CTA CLINICAL INDICATION: 73-year-old female with severe aortic stenosis, being evaluated for transcatheter aortic valve implantation. Computed tomography of the heart, thoracoabdominal aorta, and iliofemoral system was performed using a [employer] Aquilion One 320 detector scanner. Images were [...] Electronically Signed Date/Time: 03/11/2024 12:28 PM EDT Normal [facility] Office Visiton 03-10-2024 Follow-up visit [id number] Jennifer Gonzalez 1950 F Date Provider Department Center 03/10/2024 [id number] AQUINO [facility] 95 Ar Family History Problem Relation Age of Onset Breast cancer Mother COPD Father Coronary artery disease Father Family Status - Relation Status Age at Mother Father Level of Service:35191 [place] OFFICE/OUTPATIENT NEW HIGH MDM 60 MINUTES Reason for Visit and Comments: Other [0] - Aortic Stenosis Normal [facility] Follow-up visit [id number] Jennifer Gonzalez 1950 F Date Provider Department Center 03/10/2024 [id number]-ALMCXJRENZO JAFFE [facility] 95 Ar Family History Problem Relation Age of Onset Breast cancer Mother COPD Father Coronary artery disease Father Family Status - Relation Status Age at Mother Father Level of Service:56455 [place] OFFICE/OUTPATIENT NEW HIGH MDM 60 MINUTES Reason for Visit and Comments: Cardiac Valve Problem [1334] New Patient [542] - Heart Valve Clinic [facility] Follow-up visit [id number] Jennifer Gonzalez 1950 F Date Provider Department Center 03/10/2024 [id number]-BXJJIZJVVICASRINIVASA MCGINNIS [facility] 95 Ar Family History Problem Relation Age of Onset Breast cancer Mother COPD Father Coronary artery disease Father Family Status - Relation Status Age at Mother Father Level of Service:53333 [place] OFFICE/OUTPATIENT NEW HIGH MDM 60 MINUTES Reason for Visit and Comments: Cardiac Valve Problem [1334] New Patient [542] - Heart Valve Clinic [facility] PATINSon 03-10-2024 PATINS GERIATRICS DISCHARGE INSTRUCTIONS: Please talk with your [...] or missing doses (which can be dangerous). [facility] Progress Noteon 03-10-2024 Progress Note Likely multifactorial Encouraged patient to change positions slowly to avoid dizziness and falls Encouraged continued follow-up with PCP (primary care provider) and cardiology regarding her dizziness - patient and agree/confirm understanding monitor [facility] Progress Note Chronic Patient had had c/o memory loss for AWV (Annual Wellness Visit) from 02/25/24 but declined a geriatrics referral at that time I strongly encouraged patient/ to have patient schedule appt with us at [facility] for baseline memory testing I suspect either MCI (Mild Cognitive Impairment) or mild dementia based on my conversation with patient in our visit today [facility] Progress Note Reviewed med list with patient/ Advised patient speak with PCP (primary care provider) regarding alternative medication for diabetes other than glimepiride given risk of falls, hypoglycemia -patient/ amenable to this suggestion Recommended patient begin to use pillbox. [facility] Progress Note Chronic Never had sleep apnea [...] voice understanding and agreement with this plan. [facility] Progress Note I agree with cardiology plan as discussed with office technology professor on same date regarding next steps for further workup/treatment of cardiac disease which likely includes TAVR. On this date of evaluation, the patient has sufficient understanding of procedure(s) to consent to the procedure(s) being discussed and has adequate social support(s). [facility] Progress Note [facility] CARDIOLOGY [address] PENDING SALE TO [facility] [address] Dept: [phone] Dept Loc: [phone] Today's Visit Location: TAVR (transcather aortic valve replacement) Clinic [facility] Cardiology [address] [place] [id number] Visit type: [facility] Assessment at TAVR (transcather aortic valve replacement) Clinic Visit Date: 03/10/2024 Reason for Visit: Other (Aortic Stenosis) Assessment and Plan 1. Severe aortic stenosis Assessment & Plan: I agree with cardiology plan as discussed with office technology professor on same date regarding next steps for [...] have patient schedule appt with us at [facility] for baseline memory testing I suspect [...] up or missing doses (which can be dangerous)." Subjective HPI: Jennifer Gonzalez is a 73 y.o. female who [...] Total points: 4 History obtained from caregiver(s): "Reece" accompanies patient to today's appt AWV (Annual Wellness Visit) performed on 02/25/24 per Care Everywhere indicates: worsening memory, frequent imbalance/falls. Noticing memory is not as good. Some concerns about this. Takes time to remember. More falls, balance is not as good because of arthritis. Using a walker outside of the home now." PMHx of Hypertension, SVT, Paroxysmal A fib, COVID 04/2020, Diabetes, previous cath revealed no coronary disease; CTA performed on 03/10/24. Examples of difficulties patient is experiencing: Positional dizziness Transthoracic Echo (TTE): 01/08/2024 - MG56, EF 70%, BENITA 0.7cm (per my communication with cardiology Nurse Practitioner Sunita Davis) Per note from Julienne Kumar from 03/06/24, she documents: "Per note, patient with past medical history HTN, SVT, paroxysmal A Fib, DM. Pt had cardiology follow up on 12/03/2023 where she reported positional dizzines, denied any other symptoms. Echocardiogram was ordered to evaluate status of aortic stenosis, previously m (more content not included)... Normal [facility] Progress Note [facility]: Cardiothoracic Surgery Multidisciplinary Heart Valve Clinic Date: 03/10/24 Patient:Jennifer Gonzalez 1950 73 y.o. female [id number] Subjective: HPI: Jennifer Gonzalez [address] Hubbard [...] and headaches. Hematological: Does not bruise/bleed easily. Psychiatric/Behavior al: Negative for dysphoric mood. Allergies: Atorvastatin Past [...] evening. Take with meals. 11/15/23 Historical Provider, Glucosamine-Chondroi t-Vit C-Mn (GLUCOSAMINE 1500 COMPLEX PO) Take by [...] Cuff Size: Adult) Pulse 87 Ht 4' 11" (1.499 m) Wt 249 lb 1.9 oz (113 kg) SpO2 97% BMI 50.32 kg/m? Physical Exam Vitals: BP 128/72 (BP Location: Left arm, Patient Position: Sitting, BP Cuff Size: Adult) Pulse 87 Ht 4' 11" (1.499 m) Wt 249 lb 1.9 oz [...] No respirator (more content not included)... Normal [facility] Progress Note [facility] CARDIOLOGY [address] [facility] [facility] [address] Dept: [phone] Dept Visit type: New : 1950 Reason for Visit: Cardiac Valve Problem and New Patient (Heart Valve Clinic) Assessment and Plan 1. Nonrheumatic aortic valve stenosis 2. PAF (paroxysmal atrial fibrillation) ([facility] - ECG 12 lead - CLINIC [...] up for Recheck after TAVR. Subjective HPI Jennifer Gonzalez is a very pleasant 73 y.o. [...] and headaches. Hematological: Does not bruise/bleed easily. Psychiatric/Behavior al: Positive for confusion (known memory loss). Negative for dysphoric mood. Allergies Allergen Reactions Atorvastatin Rash red itchy rash around neck--resolved after stopping med; hands "froze" with stiffness that started a week after taking a couple pills--resolving Outpatient Medications Prior to Visit Medication Sig Dispense Refill aspirin 81 MG EC tablet Take 81 mg by mouth daily. calcium carbonate 500 MG chewable tablet Chew 500 mg daily. glimepiride (Amaryl) 4 MG tablet Take 1 tablet by mouth in the morning and 1 tablet in the evening. Take with meals. Glucosamine-Chondroi t-Vit C-Mn (GLUCOSAMINE 1500 COMPLEX PO) Take by [...] Take 25 mg by mouth daily. No facility-administere d medications prior to visit. Past Medical History: [...] Weight: 250 lb (113 kg) Height: 4' 11.5" (1.511 m) Physical Exam Constitutional: General: She [...] is no (more content not included)... Normal [facility] Progress Noteon 03-06-2024 Progress Note Jennifer Fabricio [address] Hubbard is [...] none Cardiac Catheterization 01/20/2024 Transthoracic Echocardiogram 01/08/2024 [facility] CNOVon 02-25-2024 CNOV Office Visit (INTMWS) JENNIFER GONZALEZ ([id number]) 1950 F Date Time Provider Department 02/25/24 11:20 AM KAMLESH ACOSTA INTMWS During your visit today, we recorded the following information about you: Pulse Blood pressure Weight 99/minute 122/76 111.1 kg Kamlesh Acosta APRN.ROBOTIC MAINTENANCE TECHNICIAN 02/25/2024 12:36 PM Signed Korey Gonzalez is [...] (Internal Medicine) Outside specialists seen: cardiology with [facility] Medical/Family history review Reviewed and updated problem list, medical/surgical/fam ximena/social history, medications, and allergies. Opioid use review [...] BMI 47.85 kg/m? Vision Screening: Follows with optometry/ophthalmol ogy SUBJECTIVE Jennifer Gonzalez is a 73 year old female here today for a check up on her medical problems. Chief Complaint Patient presents with: Medicare Wellness Exam 4 month folllow up HPI Jennifer Gonzalez is a 73 year old female. Recent work up with cardiology, sees [facility]. Had an ECHO and a [...] not taking: Reported on 02/25/2024) No current facility-administere d medications for this visit. ALLERGIES Allergen Reactions Lipitor [Atorvastat* Rash red itchy rash around neck--resolved after stopping med; hands "froze" with stiffness that started a week after taking a couple pills--resolving ACTIVE PROBLEM LIST Cognitive Impairment - 02/25/2024 Paf (Paroxysmal Atrial Fibrillation) ([facility]) - 12/07/2021 Comment: [facility] Nonrheumatic Aortic Valve Stenosis - 12/07/2021 Comment: [facility], echo [facility] Status Post Right Hip Replacement - 12/23/2019 Difficulty in Walking Involving Lower Leg Joint Acid Indigestion - 03/26/2016 Polycythemia, Secondary - 03/28/2011 Comment: This was abnormal, seen by , testing was normal. Generalized Osteoarthrosis, Involving Multiple Sites - 05/10/2008 Diabetes Mellitus ([facility]) - 10/20/2007 Hypertension Goal Bp (Blood Pressure) < 140/90 - 10/12/2005 Hyperlipidemia Associated With Type 2 Diabetes Mellitus (Hcc) ([facility]) - 10/12/2005 Class 3 Severe Obesity Due to Excess Calories With Body Mass Index (B (more content not included)... Normal [facility] CBC W Auto Differential pane l (Bld)on 02-19-2024 Basophils (Bld) [#/Vol] 0.14 10*3/uL High <0.11 [facility] Comment on above: Order Comment: Speci men Type: BLOOD SPECIMENOrdering Facility: [facility] Address: [address] [place] [address] Performed By: #### 5 7021-8 ####[facility] LABCLIA [id number] [facility] [id number], [place] [address] [place] Basophils/100 WBC (Bld) 1.6 % Normal C [facility] Comment on above: Order Comment: Speci men Type: BLOOD SPECIMENOrdering Facility: [facility] Address: [address] [place] [address] Performed By: #### 5 7021-8 ####[facility] LABCLIA [id number] [place] [address] [place] Differential cell count method Nom (Bld) Auto Normal [facility] Comment on above: Order Comment: Speci men Type: BLOOD SPECIMENOrdering Facility: [facility] Address: [address] [place] [address] Performed By: #### 5 7021-8 ####[facility] LABCLIA [id number] [place] [address] [place] Eosinophils (Bld) [#/Vol] 0.66 10*3/uL High <0.46 [facility] Comment on above: Order Comment: Speci men Type: BLOOD SPECIMENOrdering Facility: [facility] Address: [address] [place] [address] Performed By: #### 5 7021-8 ####[facility] LABCLIA [id number] [place] [address] [place] Eosinophils/100 WBC (Bld) 7.4 % Normal [facility] Comment on above: Order Comment: Speci men Type: BLOOD SPECIMENOrdering Facility: [facility] Address: [address] [place] [address] Performed By: #### 5 7021-8 ####[facility] LABCLIA [id number] [place] [address] [place] Erythrocyte distribution width (RBC) [Ratio] 13.4 % Normal 11.5-15.0 [facility] Comment on above: Order Comment: Speci men Type: BLOOD SPECIMENOrdering Facility: [facility] Address: [address] [place] [address] Performed By: #### 5 7021-8 ####[facility] LABCLIA [id number] [place] [address] [place] Hematocrit (Bld) [Volume fraction] 45.3 % Normal 36.0-46.0 [facility] Comment on above: Order Comment: Speci men Type: BLOOD SPECIMENOrdering Facility: [facility] Address: [address] [place] [address] Performed By: #### 5 7021-8 ####[facility] LABIA [id number] [place] [address] [place] Hemoglobin (Bld) [Mass/Vol] 14.5 g/dL Normal 11.5-15.5 [facility] Comment on above: Order Comment: Speci men Type: BLOOD SPECIMENOrdering Facility: [facility] Address: [address] [place] [address] Performed By: #### 5 7021-8 ####[facility] LABIA [id number] [place] [address] [place] Immature granulocytes (Bld) [#/Vol] 10*3/uL Normal <0.10 [facility] Comment on above: Order Comment: Speci men Type: BLOOD SPECIMENOrdering Facility: [facility] Address: [address] [place] [address] Performed By: #### 5 7021-8 ####[facility] LABIA [id number] [place] [address] [place] Immature granulocytes/100 WBC (Bld) 0.2 % Normal [facility] Comment on above: Order Comment: Speci men Type: BLOOD SPECIMENOrdering Facility: [facility] Address: [address] [place] [address] Performed By: #### 5 7021-8 ####[facility] LABIA [id number] [place] [address] [place] Lymphocytes (Bld) [#/Vol] 2.97 10*3/uL Normal 1.00-4.00 [facility] Comment on above: Order Comment: Speci men Type: BLOOD SPECIMENOrdering Facility: [facility] Address: [address] [place] [address] Performed By: #### 5 7021-8 ####[facility] LABIA [id number] [place] [address] [place] Lymphocytes/100 WBC (Bld) 33.4 % Normal [facility] Comment on above: Order Comment: Speci men Type: BLOOD SPECIMENOrdering Facility: [facility] Address: [address] [place] [address] Performed By: #### 5 7021-8 ####[facility] LABIA [id number] [place] [address] [place] MCH (RBC) [Entitic mass] 30.8 pg Normal 26.0-34.0 [facility] Comment on above: Order Comment: Speci men Type: BLOOD SPECIMENOrdering Facility: [facility] Address: [address] [place] [address] Performed By: #### 5 7021-8 ####[facility] LABIA [id number] [place] [address] [place] MCHC (RBC) [Mass/Vol] 32.0 g/dL Normal 30.5-36.0 [facility] Comment on above: Order Comment: Speci men Type: BLOOD SPECIMENOrdering Facility: [facility] Address: [address] [place] [address] Performed By: #### 5 7021-8 ####[facility] LABIA [id number] [place] [address] [place] MCV (RBC) [Entitic vol] 96.2 fL Normal 80.0-100.[address] [facility] Comment on above: Order Comment: Speci men Type: BLOOD SPECIMENOrdering Facility: [facility] Address: [address] [place] [address] Performed By: #### 5 7021-8 ####[facility] LABCLIA [id number] [place] [address] [place] Monocytes (Bld) [#/Vol] 1.09 10*3/uL High <0.87 [facility] Comment on above: Order Comment: Speci men Type: BLOOD SPECIMENOrdering Facility: [facility] Address: [address] [place] [address] Performed By: #### 5 7021-8 ####[facility] LABCLIA [id number] [place] [address] [place] Monocytes/100 WBC (Bld) 12.3 % Normal [facility] Comment on above: Order Comment: Speci men Type: BLOOD SPECIMENOrdering Facility: [facility] Address: [address] [place] [address] Performed By: #### 5 7021-8 ####[facility] LABCLIA [id number] [place] [address] [place] Neutrophils (Bld) [#/Vol] 4.00 10*3/uL Normal 1.45-7.50 [facility] Comment on above: Order Comment: Speci men Type: BLOOD SPECIMENOrdering Facility: [facility] Address: [address] [place] [address] Performed By: #### 5 7021-8 ####[facility] LABCLIA [id number] [place] [address] [place] Neutrophils/100 WBC (Bld) 45.1 % Normal [facility] Comment on above: Order Comment: Speci men Type: BLOOD SPECIMENOrdering Facility: [facility] Address: [address] [place] [address] Performed By: #### 5 7021-8 ####[facility] LABCLIA [id number] [id number], [place] [address] [place] Nucleated RBC (Bld) [#/Vol] 10*3/uL Normal <0.01 [facility] Comment on above: Order Comment: Speci men Type: BLOOD SPECIMENOrdering Facility: [facility] Address: [address] [place] [address] Performed By: #### 5 7021-8 ####[facility] LABCLIA [id number] [place] [address] [place] Nucleated RBC/100 WBC (Bld) [Ratio] 0.0 /100 WBC Normal [facility] Comment on above: Order Comment: Speci men Type: BLOOD SPECIMENOrdering Facility: [facility] Address: [address] [place] [address] Performed By: #### 5 7021-8 ####[facility] LABCLIA [id number] [place] [address] [place] Platelet mean volume (Bld) [Entitic vol] 11.9 fL Normal 9.0-12.7 [facility] Comment on above: Order Comment: Speci men Type: BLOOD SPECIMENOrdering Facility: [facility] Address: [address] [place] [address] Performed By: #### 5 7021-8 ####[facility] LABIA [id number] [place] [address] [place] Platelets (Bld) [#/Vol] 196 10*3/uL Normal 150-400 [facility] Comment on above: Order Comment: Speci men Type: BLOOD SPECIMENOrdering Facility: [facility] Address: [address] [place] [address] Performed By: #### 5 7021-8 ####[facility] LABCLIA [id number] [place] [address] [place] RBC (Bld) [#/Vol] 4.71 10*6/uL Normal 3.90-5.20 [facility] Comment on above: Order Comment: Speci men Type: BLOOD SPECIMENOrdering Facility: [facility] Address: [address] [place] [address] Performed By: #### 5 7021-8 ####[facility] LABCLIA [id number] [place] [address] [place] WBC (Bld) [#/Vol] 8.88 10*3/uL Normal 3.70-11.00 [facility] Comment on above: Order Comment: Speci men Type: BLOOD SPECIMENOrdering Facility: [facility] Address: [address] [place] [address] Performed By: #### 5 7021-8 ####[facility] LABCLIA [id number] [place] [address] [place] Comprehensive metabolic 2000 panelon 02-19-2024 Albumin [Mass/Vol] 4.3 g/dL Normal 3.9-4.9 [facility] Comment on above: Order Comment: Speci men Type: BLOOD SPECIMENOrdering Facility: [facility] Address: [address] [place] [address] Performed By: #### 2 4323-8 ####[facility] LABCLIA [id number] [place] [address] [place] ALP [Catalytic activity/Vol] 61 U/L Normal 34-123 [facility] Comment on above: Order Comment: Speci men Type: BLOOD SPECIMENOrdering Facility: [facility] Address: [address] [place] [address] Performed By: #### 2 4323-8 ####[facility] LABCLIA [id number] [place] [address] [place] ALT [Catalytic activity/Vol] 30 U/L Normal 7-38 [facility] Comment on above: Order Comment: Speci men Type: BLOOD SPECIMENOrdering Facility: [facility] Address: [address] [place] [address] Performed By: #### 2 4323-8 ####[facility] LABCLIA [id number] [place] [address] [place] Anion gap [Moles/Vol] 11 mmol/L Normal 8-15 [facility] Comment on above: Order Comment: Speci men Type: BLOOD SPECIMENOrdering Facility: [facility] Address: [address] [place] [address] Performed By: #### 2 4323-8 ####[facility] LABCLIA [id number] [place] [address] [place] AST [Catalytic activity/Vol] 25 U/L Normal 13-35 [facility] Comment on above: Order Comment: Speci men Type: BLOOD SPECIMENOrdering Facility: [facility] Address: [address] [place] [address] Performed By: #### 2 4323-8 ####[facility] LABCLIA [id number] [place] [address] [place] Bilirubin [Mass/Vol] 0.7 mg/dL Normal 0.2-1.3 [facility] Comment on above: Order Comment: Speci men Type: BLOOD SPECIMENOrdering Facility: [facility] Address: [address] [place] [address] Performed By: #### 2 4323-8 ####[facility] LABCLIA [id number] [place] [address] [place] Calcium [Mass/Vol] 9.8 mg/dL Normal 8.5-10.2 [facility] Comment on above: Order Comment: Speci men Type: BLOOD SPECIMENOrdering Facility: [facility] Address: [address] [place] [address] Performed By: #### 2 4323-8 ####[facility] LABCLIA [id number] [place] [address] [place] Chloride [Moles/Vol] 107 mmol/L Normal 98-107 [facility] Comment on above: Order Comment: Speci men Type: BLOOD SPECIMENOrdering Facility: [facility] Address: [address] [place] [address] Performed By: #### 2 4323-8 ####[facility] LABCLIA [id number] [place] [address] [place] CO2 [Moles/Vol] 23 mmol/L Normal 22-30 [facility] Comment on above: Order Comment: Speci men Type: BLOOD SPECIMENOrdering Facility: [facility] Address: [address] [place] [address] Performed By: #### 2 4323-8 ####[facility] LABIA [id number] [address] STATES OF [facility] Creatinine [Mass/Vol] 0.79 mg/dL Normal 0.58-0.96 [facility] Comment on above: Order Comment: Speci men Type: BLOOD SPECIMENOrdering Facility: [facility] Address: [address] [place] [address] Performed By: #### 2 4323-8 ####[facility] LABIA [id number] [address] OF [facility] Creatinine and Glomerular filtration rate.predicted panel (S/P/Bld) 78 mL/min/1.73m??? Normal >=60 [facility] Comment on above: Order Comment: Speci men Type: BLOOD SPECIMENOrdering Facility: [facility] Address: [address] [place] [address] Result Comment: Angélica mated Glomerular Filtration Rate [...] actual GFR. Performed By: #### 2 4323-8 ####[facility] LABIA [id number] [place] [address] [place] Glucose [Mass/Vol] 198 mg/dL High 74-99 [facility] Comment on above: Order Comment: Speci men Type: BLOOD SPECIMENOrdering Facility: [facility] Address: [address] [place] [address] Result Comment: The [place] [employer] Association (ADA) provides guidance for cutoff [...] Standards of Medical Care in Diabetes 2016, [place] [employer]. Diabetes Care. 2016.39(Suppl 1). Performed By: #### 2 4323-8 ####[facility] LABCLIA [id number] [place] [address] [place] Potassium [Moles/Vol] 4.7 mmol/L Normal 3.7-5.1 [facility] Comment on above: Order Comment: Fransiscoi men Type: BLOOD SPECIMENOrdering Facility: [facility] Address: [address] [place], [place] [address] Performed By: #### 2 4323-8 ####[facility] LABCLIA [id number] [place] [address] [place] Protein [Mass/Vol] 7.0 g/dL Normal 6.3-8.0 [facility] Comment on above: Order Comment: Speci men Type: BLOOD SPECIMENOrdering Facility: [facility] Address: [address] [place], [place] [address] Performed By: #### 2 4323-8 ####[facility] LABCLIA [id number] [place] [address] [place] Sodium [Moles/Vol] 141 mmol/L Normal 136-144 [facility] Comment on above: Order Comment: Speci men Type: BLOOD SPECIMENOrdering Facility: [facility] Address: [address] [place] [address] Performed By: #### 2 4323-8 ####[facility] LABCLIA [id number] [place] [address] [place] Urea nitrogen [Mass/Vol] 21 mg/dL Normal 7-21 [facility] Comment on above: Order Comment: Fransiscoi men Type: BLOOD SPECIMENOrdering Facility: [facility] Address: [address] [place] [address] Performed By: #### 2 4323-8 ####[facility] LABIA [id number] [place] [address] [place] HbA1c (Bld)on 02-19-2024 Average glucose Estimated from glycated hemoglobin (Bld) [Mass/Vol] 180 mg/dL Normal [facility] Comment on above: Order Comment: Thomas shelton Type: BLOOD SPECIMENOrdering Facility: [facility] Address: [address] [place] [address] Result Comment: eAG: (Estimated average glucose) is a calculated value from HgbA1c and is digital 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 of the average blood glucose level in the last 2-3 month period. Performed By: #### 5 5454-3 ####[facility] [id number] [place] [address] [place] HbA1c (Bld) [Mass fraction] 7.9 % High 4.3-5.6 [facility] Comment on above: Order Comment: Fransiscoi men Type: BLOOD SPECIMENOrdering Facility: [facility] Address: [address] [place] [address] Result Comment: [place] [employer] guidelines indicate that patients with HgbA1c in the range 5.7-6.4% are at increased risk for development of diabetes, and intervention by lifestyle modification may be beneficial. HgbA1c greater or equal to 6.5% is considered diagnostic of diabetes. Performed By: #### 5 5454-3 ####[facility] [id number] [place] [address] [place] DAVID SCREENINGon 04-26-2023 [facility] XR CHEST 2V FRONTAL/LATon [facility] XR Chest PA and Lateralon IMPRESSION: No acute radiographic abnormality. Hand I Thermal Cutter: BOOGIE Transcribe Date/Time: Jul 31 2022 4:03P Dictated by : BRE SAMSON MD This examination was interpreted and the report reviewed and electronically signed by: BRE SAMSON MD on Jul 31 2022 4:04PM [facility] [[email or web address] DIVISION OF RADIOLOGY * * *Final Report* [...] shows degenerative changes. DIVISION OF RADIOLOGY Provider, [facility] [place] - 07/31/2022 * * *Final Report* * [...] changes. IMPRESSION IMPRESSION: No acute radiographic abnormality. Hand I Thermal Cutter: BOOGIE Transcribe Date/Time: Jul 31 2022 4:03P Dictated by : BRE SAMSON MD This examination was interpreted and the report reviewed and electronically signed by: BRE SAMSON MD on Jul 31 2022 4:04PM EST [facility] Radiology Study observation (narrative) [facility] XR Chest PA and LateralOrder ed By: [facility] Provider on 07-31-2022 [facility] XR Chest PA and Lateralon IMPRESSION: Hazy opacities overlying the left midlung. Clinically correlate. Hand I Thermal Cutter: BOOGIE Transcribe Date/Time: May 18 2020 4:48P Dictated by : BRE SAMSON MD This examination was interpreted and the report reviewed and electronically signed by: BRE SAMSON MD on May 18 2020 4:50PM [facility] [[email or web address]] DIVISION OF RADIOLOGY * * *Final Report* [...] shows degenerative changes. DIVISION OF RADIOLOGY Provider, [facility] [place] - 05/18/2020 * * *Final Report* * [...] opacities overlying the left midlung. Clinically correlate. Hand I Thermal Cutter: BOOGIE Transcribe Date/Time: May 18 2020 4:48P Dictated by : BRE SAMSON MD This examination was interpreted and the report reviewed and electronically signed by: BRE SAMSON MD on May 18 2020 4:50PM EST [facility]narrative[facility] Chest PA and LateralOrder ed By: [facility] Provider on 05-18-2020 [facility] Vital Signs Date Time Vital Sign Value Performing Clinician Harshad hendrickson 03-05-2025 11:50-0400 Body temperature 98.4 [degF] Dr. Abby Mcclellan MD Work Phone: [facility] 03-05-2025 11:50-0400 Diastolic blood pressure 70 mm[Hg] Dr. Abby Mcclellan MD Work Phone: [facility] 03-05-2025 11:50-0400 Heart rate 104 /min Dr. Abby Mcclellan MD Work Phone: [facility] 03-05-2025 11:50-0400 Respiratory rate 22 /min Dr. Abby Mcclellan MD Work Phone: [facility] 03-05-2025 11:50-0400 SaO2% (BldA) [Mass fraction] 92 % Dr. Abby Mcclellan MD Work Phone: [facility] 03-05-2025 11:50-0400 Systolic blood pressure 128 mm[Hg] Dr. Abby Mcclellan MD Work Phone: 7(759)334-990402 [place] [address] 03-05-2025 10:11-0400 Body height 152.[address] Abby Mcclellan MD Work Phone: 0(251)685-579202 [place] [address] 03-05-2025 10:11-0400 Body mass index (BMI) [Ratio] 48.2 kg/m2 Dr. Abby Mcclellan MD Work Phone: 6(976)736-492602 [place] [address] 03-05-2025 10:11-0400 Body weight [address] Abby Mcclellan MD Work Phone: 5(758)282-514402 [place] [address] 03-04-2025 09:55-0400 Heart rate 103 /min Dr. Abby Mcclellan MD Work Phone: 2(832)457-048702 [place] [address] 03-04-2025 09:53-0400 Body temperature 98.3 [degF] Dr. Abby Mcclellan MD Work Phone: 0(945)658-777902 [place] [address] 03-04-2025 09:53-0400 Diastolic blood pressure 64 mm[Hg] Dr. Abby Mcclellan MD Work Phone: 2(874)819-086402 [place] [address] 03-04-2025 09:53-0400 Respiratory rate 20 /min Dr. Abby Mcclellan MD Work Phone: 0(418)116-534502 [place] [address] 03-04-2025 09:53-0400 SaO2% (BldA) [Mass fraction] 94 % Dr. Abby Mcclellan MD Work Phone: 6(258)825-778402 [place] [address] 03-04-2025 09:53-0400 Systolic blood pressure 140 mm[Hg] Dr. Abby Mcclellan MD Work Phone: 5(500)434-418202 [place] [address] 03-04-2025 05:18-0400 Body mass index (BMI) [Ratio] 48.8 kg/m2 Dr. Abby Mcclellan MD Work Phone: 2(853)402-268002 [place] [address] 03-04-2025 05:18-0400 Body weight 112.[address] Abby Mcclellan MD Work Phone: 2(337)892-945502 [place] [address] 03-01-2025 15:23-0400 Inhaled oxygen flow rate 2 L/min Dr. Abby Mcclellan MD Work Phone: 4(644)081-679602 [place] [address] 03-01-2025 13:51-0400 Body height 151.[address] Abby Mcclellan MD Work Phone: 8(811)964-855902 [place] [address] 02-26-2025 00:30-0400 Diastolic blood pressure 67 mm[Hg] Dr. Abby Mcclellan MD Work Phone: 8(618)805-389802 [place] [address] 02-26-2025 00:30-0400 Heart rate 125 /min Dr. Abby Mcclellan MD Work Phone: 9(797)771-738302 [place] [address] 02-26-2025 00:30-0400 Respiratory rate 30 /min Dr. Abby Mcclellan MD Work Phone: 6(224)217-421702 [place] [address] 02-26-2025 00:30-0400 SaO2% (BldA) [Mass fraction] 95 % Dr. Abby Mcclellan MD Work Phone: 1(421)487-252602 [place] [address] 02-26-2025 00:30-0400 Systolic blood pressure 139 mm[Hg] Dr. Abby Mcclellan MD Work Phone: 5(952)989-110402 [place] [address] 02-26-2025 00:00-0400 Body temperature 101 [degF] Dr. Abby Mcclellan MD Work Phone: 2(210)082-724702 [place] [address] 02-25-2025 20:42-0400 Body height 152.[address] Abby Mcclellan MD Work Phone: 4(311)293-638602 [place] [address] 02-25-2025 20:42-0400 Body mass index (BMI) [Ratio] 46.5 kg/m2 Dr. Abby Mcclellan MD Work Phone: 5(788)459-766702 [place] [address] 02-25-2025 20:42-0400 Body weight [address] Abby Mcclellan MD Work Phone: 8(587)037-157102 [place] [address] 02-08-2025 10:29-0400 Body height 152.[address] Abby Mcclellan MD Work Phone: 8(471)554-952260 [place] [address] 02-08-2025 10:29-0400 Body mass index (BMI) [Ratio] 44.9 kg/m2 Dr. Abby Mcclellan MD Work Phone: 0(349)648-173960 [place] [address] 02-08-2025 10:29-0400 Body weight 104.[address] Abby Mcclellan MD Work Phone: 6(706)500-532760 [place] [address] 02-08-2025 10:29-0400 Diastolic blood pressure 79 mm[Hg] Dr. Abby Mcclellan MD Work Phone: 2(005)916-945960 [place] [address] 02-08-2025 10:29-0400 Heart rate 95 /min Dr. Abby Mcclellan MD Work Phone: 2(802)823-983702 [place] [address] 02-08-2025 10:29-0400 Respiratory rate 18 /min Dr. Abby Mcclellan MD Work Phone: 2(099)108-259760 [place] [address] 02-08-2025 10:29-0400 SaO2% (BldA) [Mass fraction] 97 % Dr. Abby Mcclellan MD Work Phone: 8(868)436-761660 [place] [address] 02-08-2025 10:29-0400 Systolic blood pressure 129 mm[Hg] Dr. Abby Mcclellan MD Work Phone: [facility] 01-11-2025 11:16-0400 Body mass index (BMI) [Ratio] 47.53 kg/m2 Kamlesh Acosta VICE PRESIDENT PLANNING.ROBOTIC MAINTENANCE TECHNICIAN Work Phone: [facility] 01-11-2025 11:16-0400 Body weight 110.4 kg Kamlesh Dave VICE PRESIDENT PLANNING.CN P Work Phone: [facility] 01-11-2025 11:16-0400 Diastolic blood pressure 78 mm[Hg] Kamlesh Dave VICE PRESIDENT PLANNING.ROBOTIC MAINTENANCE TECHNICIAN Work Phone: [facility] 01-11-2025 11:16-0400 Heart rate 108 /min Kamlesh Dave VICE PRESIDENT PLANNING.CN P Work Phone: [facility] 01-11-2025 11:16-0400 SaO2% (BldA) [Mass fraction] 97 % Kamlesh Dave VICE PRESIDENT PLANNING.ROBOTIC MAINTENANCE TECHNICIAN Work Phone: [facility] 01-11-2025 11:16-0400 Systolic blood pressure 120 mm[Hg] Kamlesh Dave VICE PRESIDENT PLANNING.ROBOTIC MAINTENANCE TECHNICIAN Work Phone: [facility] 11-10-2024 11:15-0400 Body mass index (BMI) [Ratio] 46.84 kg/m2 Kamlesh Dave VICE PRESIDENT PLANNING.ROBOTIC MAINTENANCE TECHNICIAN Work Phone: [facility] 11-10-2024 11:15-0400 Body weight 108.8 kg Kamlesh Dave VICE PRESIDENT PLANNING.CN P Work Phone: [facility] 11-10-2024 11:15-0400 Diastolic blood pressure 74 mm[Hg] Kamlesh Dave VICE PRESIDENT PLANNING.ROBOTIC MAINTENANCE TECHNICIAN Work Phone: [facility] 11-10-2024 11:15-0400 Heart rate 84 /min Kamlesh Dave VICE PRESIDENT PLANNING.CN P Work Phone: [facility] 11-10-2024 11:15-0400 SaO2% (BldA) [Mass fraction] 98 % Kamlesh Dave VICE PRESIDENT PLANNING.ROBOTIC MAINTENANCE TECHNICIAN Work Phone: [facility] 11-10-2024 11:15-0400 Systolic blood pressure 128 mm[Hg] Kamlesh Dave VICE PRESIDENT PLANNING.ROBOTIC MAINTENANCE TECHNICIAN Work Phone: [facility] 09-29-2024 12:05-0500 Body mass index (BMI) [Ratio] 47.88 kg/m2 Kamlesh Dave VICE PRESIDENT PLANNING.ROBOTIC MAINTENANCE TECHNICIAN Work Phone: [facility] 09-29-2024 12:05-0500 Body weight 111.2 kg Kamlesh Adve VICE PRESIDENT PLANNING.CN P Work Phone: [facility] 09-29-2024 12:05-0500 Diastolic blood pressure 72 mm[Hg] Kamlesh Dave VICE PRESIDENT PLANNING.ROBOTIC MAINTENANCE TECHNICIAN Work Phone: [facility] 09-29-2024 12:05-0500 Heart rate 96 /min Kamlesh Dave VICE PRESIDENT PLANNING.CN P Work Phone: [facility] 09-29-2024 12:05-0500 SaO2% (BldA) [Mass fraction] 97 % Kamlesh Dave VICE PRESIDENT PLANNING.ROBOTIC MAINTENANCE TECHNICIAN Work Phone: [facility] 09-29-2024 12:05-0500 Systolic blood pressure 106 mm[Hg] Kamlesh Dave VICE PRESIDENT PLANNING.ROBOTIC MAINTENANCE TECHNICIAN Work Phone: [facility] 05-07-2024 15:37-0400 Body height 151.1 cm Sunita Davis VICE PRESIDENT PLANNING - ROBOTIC MAINTENANCE TECHNICIAN Work Phone: [facility] 05-07-2024 15:37-0400 Body mass index (BMI) [Ratio] 47.66 kg/m2 Sunita Davis VICE PRESIDENT PLANNING - ROBOTIC MAINTENANCE TECHNICIAN Work Phone: [facility] 05-07-2024 15:37-0400 Body weight 108.86 kg Sunita Davis VICE PRESIDENT PLANNING - ROBOTIC MAINTENANCE TECHNICIAN Work Phone: [facility] 05-07-2024 15:37-0400 Diastolic blood pressure 70 mm[Hg] Sunita Davis VICE PRESIDENT PLANNING - ROBOTIC MAINTENANCE TECHNICIAN Work Phone: [facility] 05-07-2024 15:37-0400 Heart rate 103 /min Sunita Davis VICE PRESIDENT PLANNING - ROBOTIC MAINTENANCE TECHNICIAN Work Phone: [facility] 05-07-2024 15:37-0400 Systolic blood pressure 122 mm[Hg] Sunita Davis VICE PRESIDENT PLANNING - ROBOTIC MAINTENANCE TECHNICIAN Work Phone: [facility] 05-07-2024 14:26-0400 Body height 149.9 cm Lindsey Tolentino VICE PRESIDENT PLANNING - ROBOTIC MAINTENANCE TECHNICIAN Work Phone: [facility] 05-07-2024 14:26-0400 Body mass index (BMI) [Ratio] 48.47 kg/m2 Lindsey Tolentino VICE PRESIDENT PLANNING - ROBOTIC MAINTENANCE TECHNICIAN Work Phone: [facility] 05-07-2024 14:26-0400 Body weight 108.86 kg Lindsey Tolentino VICE PRESIDENT PLANNING - ROBOTIC MAINTENANCE TECHNICIAN Work Phone: [facility] 04-17-2024 13:02-0400 Body height 149.9 cm Lindsey Tolentino VICE PRESIDENT PLANNING - ROBOTIC MAINTENANCE TECHNICIAN Work Phone: [facility] 04-17-2024 13:02-0400 Body mass index (BMI) [Ratio] 48.47 kg/m2 Lindsey Tolentino VICE PRESIDENT PLANNING - ROBOTIC MAINTENANCE TECHNICIAN Work Phone: [facility] 04-17-2024 13:02-0400 Body weight 108.86 kg Lindsey Tolentino VICE PRESIDENT PLANNING - ROBOTIC MAINTENANCE TECHNICIAN Work Phone: [facility] 04-17-2024 13:02-0400 Diastolic blood pressure 70 mm[Hg] Lindsey Fer VICE PRESIDENT PLANNING - ROBOTIC MAINTENANCE TECHNICIAN Work Phone: [facility] 04-17-2024 13:02-0400 Heart rate 110 /min Lindseyjasiel Tolentino VICE PRESIDENT PLANNING - ROBOTIC MAINTENANCE TECHNICIAN Work Phone: [facility] 04-17-2024 13:02-0400 SaO2% (BldA) [Mass fraction] 100 % Lindseyjasiel Tolentino VICE PRESIDENT PLANNING - ROBOTIC MAINTENANCE TECHNICIAN Work Phone: [facility] 04-17-2024 13:02-0400 Systolic blood pressure 110 mm[Hg] Lindsey Tolentino VICE PRESIDENT PLANNING - ROBOTIC MAINTENANCE TECHNICIAN Work Phone: [facility] 04-08-2024 13:00-0400 Diastolic blood pressure 74 mm[Hg] Srinivasa Poon MD Work Phone: [facility] 04-08-2024 13:00-0400 Heart rate 108 /min Srinivasa Edwards Work Phone: [facility] 04-08-2024 13:00-0400 Respiratory rate 35 /min Srinivasa Edwards Work Phone: [facility] 04-08-2024 13:00-0400 Systolic blood pressure 141 mm[Hg] Srinivasa Poon MD Work Phone: [facility] 04-08-2024 12:07-0400 Body temperature 99.1 [degF] Srinivasa Edwards Work Phone: [facility] 04-08-2024 12:07-0400 SaO2% (BldA) [Mass fraction] 92 % Srinivasa Poon MD Work Phone: [facility] 04-08-2024 06:00-0400 Body mass index (BMI) [Ratio] 49.43 kg/m2 Srinivasa Poon MD Work Phone: [facility] 04-08-2024 06:00-0400 Body weight 111 kg Srinivasa Edwards Work Phone: [facility] 04-07-2024 09:44-0400 Body height 149.9 cm Srinivasa Edwards Work Phone: [facility] 03-10-2024 15:49-0400 Body height 149.9 cm Renzo Horta DO Work Phone: [facility] 03-10-2024 15:49-0400 Body mass index (BMI) [Ratio] 50.32 kg/m2 Renzo Horta DO Work Phone: [facility] 03-10-2024 15:49-0400 Body weight 113 kg Renzo Horta DO Work Phone: [facility] 03-10-2024 15:49-0400 Diastolic blood pressure 72 mm[Hg] Renzo Horta DO Work Phone: [facility] 03-10-2024 15:49-0400 Heart rate 87 /min Renzo Horta DO Work Phone: [facility] 03-10-2024 15:49-0400 SaO2% (BldA) [Mass fraction] 97 % Renzo Horta DO Work Phone: [employer] 03-10-2024 15:49-0400 Systolic blood pressure 128 mm[Hg] Renzo Horta DO Work Phone: [facility] 03-10-2024 15:05-0400 Body height 151.1 cm Srinivasa Edwards Work Phone: [facility] 03-10-2024 15:05-0400 Body mass index (BMI) [Ratio] 49.65 kg/m2 Srinivasa Poon MD Work Phone: [facility] 03-10-2024 15:05-0400 Body weight 113.4 kg Srinivasa Edwards Work Phone: [facility] 03-10-2024 15:05-0400 Diastolic blood pressure 72 mm[Hg] Srinivasa Poon MD Work Phone: [facility] 03-10-2024 15:05-0400 Heart rate 87 /min Srinivasa Edwards Work Phone: [facility] 03-10-2024 15:05-0400 SaO2% (BldA) [Mass fraction] 97 % Srinivasa Poon MD Work Phone: [facility] 03-10-2024 15:05-0400 Systolic blood pressure 128 mm[Hg] Srinivasa Poon MD Work Phone: [facility] 02-25-2024 11:25-0400 Body mass index (BMI) [Ratio] 47.85 kg/m2 Kamlesh Dave VICE PRESIDENT PLANNING.ROBOTIC MAINTENANCE TECHNICIAN Work Phone: [facility] 02-25-2024 11:25-0400 Body weight 111.13 kg Kamlesh Dave VICE PRESIDENT PLANNING.CN P Work Phone: [facility] 02-25-2024 11:25-0400 Diastolic blood pressure 76 mm[Hg] Kamlesh Dave VICE PRESIDENT PLANNING.ROBOTIC MAINTENANCE TECHNICIAN Work Phone: [facility] 02-25-2024 11:25-0400 Heart rate 99 /min Kamlesh Dave VICE PRESIDENT PLANNING.CN P Work Phone: [facility] 02-25-2024 11:25-0400 SaO2% (BldA) [Mass fraction] 97 % Kamlesh Dave VICE PRESIDENT PLANNING.ROBOTIC MAINTENANCE TECHNICIAN Work Phone: [facility] 02-25-2024 11:25-0400 Systolic blood pressure 122 mm[Hg] Kamlesh Dave VICE PRESIDENT PLANNING.ROBOTIC MAINTENANCE TECHNICIAN Work Phone: [facility] 04-19-2023 11:50-0400 Body weight 109.77 kg Kamlesh Dave VICE PRESIDENT PLANNING.CN P Work Phone: [facility] 04-19-2023 11:50-0400 Diastolic blood pressure 78 mm[Hg] Kamlesh Dave VICE PRESIDENT PLANNING.ROBOTIC MAINTENANCE TECHNICIAN Work Phone: [facility] 04-19-2023 11:50-0400 Heart rate 112 /min Kamlesh Dave VICE PRESIDENT PLANNING.CN P Work Phone: [facility] 04-19-2023 11:50-0400 SaO2% (BldA) [Mass fraction] 96 % Kamlesh Dave VICE PRESIDENT PLANNING.ROBOTIC MAINTENANCE TECHNICIAN Work Phone: [facility] 04-19-2023 11:50-0400 Systolic blood pressure 118 mm[Hg] Kamlesh Dave VICE PRESIDENT PLANNING.ROBOTIC MAINTENANCE TECHNICIAN Work Phone: [facility] 07-31-2022 15:17-0500 Body temperature 98.71 [degF] Keily Mckinney VICE PRESIDENT PLANNING.ROBOTIC MAINTENANCE TECHNICIAN Work Phone: [facility] 07-31-2022 15:17-0500 Body weight 106.87 kg Keily Mckinney VICE PRESIDENT PLANNING.ROBOTIC MAINTENANCE TECHNICIAN Work Phone: [facility] 07-31-2022 15:17-0500 Diastolic blood pressure 72 mm[Hg] Keily Mckinney VICE PRESIDENT PLANNING.ROBOTIC MAINTENANCE TECHNICIAN Work Phone: [facility] 07-31-2022 15:17-0500 Heart rate 101 /min Keily Mckinney VICE PRESIDENT PLANNING.ROBOTIC MAINTENANCE TECHNICIAN Work Phone: [facility] 07-31-2022 15:17-0500 Respiratory rate 18 /min Keily Mckinney VICE PRESIDENT PLANNING.ROBOTIC MAINTENANCE TECHNICIAN Work Phone: [facility] 07-31-2022 15:17-0500 SaO2% (BldA) [Mass fraction] 96 % Keily Mckinney VICE PRESIDENT PLANNING.ROBOTIC MAINTENANCE TECHNICIAN Work Phone: [facility] 07-31-2022 15:17-0500 Systolic blood pressure 128 mm[Hg] Keily Mckinney VICE PRESIDENT PLANNING.ROBOTIC MAINTENANCE TECHNICIAN Work Phone: [facility] 04-18-2022 14:10-0400 Body weight 100.7 kg Abby Talampas MD Work Phone: [facility] 04-18-2022 14:10-0400 Diastolic blood pressure 70 mm[Hg] Abby Mcclellan MD Work Phone: [facility] 04-18-2022 14:10-0400 Heart rate 98 /min Abby Mcclellan MD Work Phone: [facility] 04-18-2022 14:10-0400 SaO2% (BldA) [Mass fraction] 95 % Abby Mcclellan MD Work Phone: [facility] 04-18-2022 14:10-0400 Systolic blood pressure 110 mm[Hg] Abby Mcclellan MD Work Phone: [facility] 02-12-2022 14:09-0400 Body height 152.[address] Abby Mcclellan Work Phone: [facility] Work Phone: 02-12-2022 14:09-0400 Body mass index (BMI) [Ratio] 42 kg/m2 Dr. Abby Mcclellan Work Phone: [facility] Work Phone: 02-12-2022 14:09-0400 Body temperature 96.6 [degF] Dr. Abby Mcclellan Work Phone: [facility] Work Phone: 02-12-2022 14:09-0400 Body weight 97.[address] Abby Mcclellan Work Phone: [facility] Work Phone: 02-12-2022 14:09-0400 Diastolic blood pressure 82 mm[Hg] Dr. Abby Mcclellan Work Phone: [facility] Work Phone: 02-12-2022 14:09-0400 Heart rate 102 /min Dr. Abby Mcclellan Work Phone: [facility] Work Phone: 02-12-2022 14:09-0400 Respiratory rate 22 /min Dr. Abby Mcclellan Work Phone: [facility] Work Phone: 02-12-2022 14:09-0400 SaO2% (BldA) [Mass fraction] 99 % Dr. Abby Mcclellan Work Phone: [facility] Work Phone: 02-12-2022 14:09-0400 Systolic blood pressure 140 mm[Hg] Dr. Abby Mcclellan Work Phone: [facility] Work Phone: 11-01-2021 13:40-0400 Body height 152.[address] Abby Mcclellan Work Phone: [facility] Work Phone: 11-01-2021 13:40-0400 Body mass index (BMI) [Ratio] 39.8 kg/m2 Dr. Abby Mcclellan Work Phone: [facility] Work Phone: 11-01-2021 13:40-0400 Body weight 92.[address] Abby Mcclellan Work Phone: [facility] Work Phone: 11-01-2021 13:40-0400 Diastolic blood pressure 78 mm[Hg] Dr. Abby Mcclellan Work Phone: [facility] Work Phone: 11-01-2021 13:40-0400 Heart rate 96 /min Dr. Abby Mcclellan Work Phone: [facility] Work Phone: 11-01-2021 13:40-0400 Respiratory rate 20 /min Dr. Abby Mcclellan Work Phone: [facility] Work Phone: 11-01-2021 13:40-0400 SaO2% (BldA) [Mass fraction] 95 % Dr. Abby Mcclellan Work Phone: [facility] Work Phone: 11-01-2021 13:40-0400 Systolic blood pressure 118 mm[Hg] Dr. Abby Mcclellan Work Phone: [facility] Work Phone: Encounters Encounter Date Encounter Type Care Provider Facility Start: 03-22-2025 ambulatory Abby D Talampas Facilit y:[facility] Start: 03-15-2025 ambulatory Abby D Talampas Facilit y:[facility] Start: 03-08-2025 ambulatory Abby D Talampas Facilit y:[facility] Start: 03-08-2025 Registered Referred Loulou Ellison MD -[facility] Start: 03-05-2025 End: 03-05-2025 Emergency department patient visit Dr. Abby Mcclellan MD Work Phone: -Emergency Department Work Phone: Start: 03-03-2025 Non-patient / Non-visit Dr. Alen Velasquez [facility] Work Phone: Start: 03-02-2025 Non-patient / Non-visit Dr. Alen Velasquez [facility] Work Phone: Start: 03-01-2025 Non-patient / Non-visit Dr. Alen Velasquez [facility] Work Phone: Start: 03-01-2025 ambulatory Abby D Talampas Facilit y:[facility] Start: 03-01-2025 Non-patient / Non-visit Dr. Donnell grace DO [facility] Start: 02-28-2025 Non-patient / Non-visit Dr. Candis Willson MD -[facility] Work Phone: Start: 02-27-2025 Non-patient / Non-visit Dr. Candis Willson MD -[facility] Work Phone: Start: 02-26-2025 ambulatory Donnell Mendez Facility:[facility] Start: 02-26-2025 Non-patient / Non-visit Cesar rosales MD -[facility] Work Phone: Start: 02-26-2025 ambulatory Mk Espinoza ity:[facility] Start: 02-26-2025 End: 03-04-2025 Evaluation and management of inpatient Dr. Doug Argueta DO -Intensive Care Unit Work Phone: Start: 02-15-2025 End: 02-16-2025 Refill Abby Mcclellan MD Work Phone: Internal Medicine [facility] Comment on above: Refill Request Start: 02-09-2025 End: 02-15-2025 Refill Abby Mcclellan MD Work Phone: Internal [facility] Comment on above: Medication Problem; Refill Request Start: 02-08-2025 End: 02-08-[address] Abby Mcclellan MD Work Phone: -[facility] Start: 02-08-2025 End: 02-08-2025 Patient encounter procedure Gm GARIBAY -[facility] Work Phone: Start: 02-02-2025 End: 02-02-[address] Abby Mcclellan MD Work Phone: [facility] [facility] It[facility] Start: 02-02-2025 End: 02-02-[address] Ac Hubbard MD -[facility] Work Phone: Start: 01-11-2025 End: 01-11-2025 Patient encounter procedure Kamlesh Acosta APRN.CNP Work Phone: Internal [facility] Comment on above: Type 2 diabetes jose roberto itus with hyperglycemia, without long-term current use of insulin (HCC) (Primary Dx); Nonrheumatic aortic valve stenosis; Cardiac pacemaker; Hyperlipidemia associated with type 2 diabetes mellitus (HCC); Hypertension goal BP (blood pressure) < 140/90; Sciatic leg pain Start: 01-11-2025 End: 01-11-2025 ambulatory KAMLESH ACOSTA Facility:[facility] Start: 01-07-2025 End: 01-07-2025 ambulatory Nu [facility] Work Phone: [facility] Start: 01-07-2025 End: 01-07-2025 Patient encounter procedure Nu Bruce [facility] Work Phone: [facility] Start: 01-07-2025 End: 01-11-2025 Telephone encounter Abby Mcclellan MD Work Phone: Internal [facility] Comment on above: Lab Orders Start: 01-01-2025 End: 01-01-2025 ambulatory Deshawn Sarmientoamor LOMAX [facility] [place] Start: 01-01-2025 End: 01-01-2025 Patient encounter procedure Deshawn Weaver MA [facility] [place] Comment on above: Population Health Na vigation Outreach ([facility] Start: 12-10-2024 End: 01-30-2025 Refill Abby Mcclellan MD Work Phone: Internal [facility] Comment on above: patient cancelled re quest Start: 12-07-2024 End: 12-07-[address] Abby Mcclellan MD Work Phone: [facility] Work Phone: Start: 12-07-2024 End: 12-07-[address] Ac Hubbard MD -[facility] Work Phone: Start: 12-02-2024 End: 12-02-[address] Abby Mcclellan MD Work Phone: [facility] Work Phone: Start: 12-02-2024 End: 12-02-[address] Ac Hubbard MD -[facility] Work Phone: Start: 11-10-2024 End: 11-10-2024 ambulatory KAMLESH ACOSTA Facility:[facility] Start: 11-10-2024 End: 11-10-2024 Patient encounter procedure Kamlesh Acosta VICE PRESIDENT PLANNING.ROBOTIC MAINTENANCE TECHNICIAN Work Phone: [facility] [place] Comment on above: Type 2 diabetes jose roberto itus with hyperglycemia, without long-term current use of insulin (HCC) (Primary Dx); Class 3 severe obesity due to excess calories with body mass index (BMI) of 45.0 to 49.9 in adult, unspecified whether serious comorbidity present (HCC); Hyperlipidemia associated with type 2 diabetes mellitus (HCC) Start: 09-29-2024 End: 09-29-2024 ambulatory KAMLESH DAVE Facility:[facility] Start: 09-29-2024 End: 09-29-2024 Patient encounter procedure Kamlesh Dave ESPANA Work Phone: [facility] [place] Comment on above: Type 2 diabetes jose [...] Refjose Mcclellan MD Work Phone: [facility] [place] Comment on above: Refill Request Start: 09-19-2024 End: 09-19-2024 ambulatory ABBY MCCLELLAN Facility:[facility] Start: 09-07-2024 End: 09-07-2024 ambulatory Abby Mcclellan Facility:[facility] Start: 09-07-2024 End: 09-07-[address] Ac Hubbard MD [facility] Work Phone: Start: 08-18-2024 End: 08-20-2024 Roosevelt Mcclellan MD Work Phone: [facility] [place] Comment on above: Refill Request Lab Orders (September pointment) Start: 2024 End: 2024 ambulatory Abby Mcclellan Facility:[facility] Start: 06-01-2024 End: 06-01-2024 ambulatory Abby D Doug Facility:[facility] Start: 05-27-2024 End: 12-11-2024 Telephone encounter Sunita Lentz CNP Work Phone: [facility] Comment on above: Prior Authorization Start: 05-19-2024 End: 05-19-2024 ambulatory Sunita Susan VICE PRESIDENT PLANNING - ROBOTIC MAINTENANCE TECHNICIAN [facility] Comment on above: PAF (paroxysmal atri al fibrillation) (HCC) Start: 05-07-2024 End: 05-07-[address] [facility] Start: 05-07-2024 End: 05-07-2024 Office outpatient visit 25 minutes Sunita Davis APRN - ROBOTIC MAINTENANCE TECHNICIAN Work Phone: [facility] Comment on above: Severe aortic stenos is (Primary Dx); PAF (paroxysmal atrial fibrillation) ([facility]); Essential hypertension; Complete heart block ([facility]) Start: 05-07-2024 End: 05-07-2024 ambulatory [facility] Start: 05-07-2024 End: 05-07-2024 Subsequent hospital visit by physician Lindsey Lentz CNP Work Phone: [facility] [address] Non-Invasive Cardiology Comment on above: Aortic valve stenosi s, etiology of cardiac valve disease unspecified Start: 05-07-2024 End: 05-07-2024 [facility] Start: 05-04-2024 End: 05-04-2024 ambulatory ABBY Jerry MCCLELLAN Facility:[facility] Start: 04-23-2024 End: 04-23-2024 Refill Abby Mcclellan MD Work Phone: Internal [facility] Comment on above: Refill Request Start: 04-17-2024 End: 04-17-2024 Office outpatient visit 25 minutes Lindsey Lentz CNP Work Phone: [facility] Comment on above: S/P TAVR (transcathe ter aortic valve replacement) (Primary Dx); Essential hypertension; Aortic valve stenosis, etiology of cardiac valve disease unspecified; Complete heart block (CMS/HCC) (HCC) Start: 04-17-2024 End: 04-17-2024 ambulatory [facility] Start: 04-06-2024 End: 04-08-2024 Evaluation and management of inpatient Srinivasa Poon MD Work Phone: [facility] Cardiac Thoracic Vascular Intensive Care Unit CTV ICU T1 Comment on above: Nonrheumatic aortic valve stenosis (Primary Dx); Severe aortic stenosis; Complete heart block (CMS/HCC) (HCC) Start: 04-03-2024 End: 04-03-2024 ambulatory Sunita Davis VICE PRESIDENT PLANNING - ROBOTIC MAINTENANCE TECHNICIAN Work Phone: [facility] Comment on above: Severe aortic stenos is (Primary Dx) Start: 04-01-2024 End: 04-01-2024 ambulatory ABBY MCCLELLAN Facility:[facility] Start: 03-10-2024 End: 03-10-2024 Office outpatient new 60 minutes Ira Aquino MD Work Phone: [facility] Comment on above: Severe aortic stenos is (Primary Dx); Memory loss; Dizziness; Daytime hypersomnolence; Polypharmacy Nonrheumatic aortic valve stenosis (Primary Dx); PAF (paroxysmal atrial fibrillation) (HCC) Severe aortic stenos is (Primary Dx) Start: 03-10-2024 End: 03-10-2024 ambulatory [facility] Start: 03-10-2024 End: 03-10-2024 Subsequent hospital visit by physician Sunita Davis VICE PRESIDENT PLANNING - ROBOTIC MAINTENANCE TECHNICIAN Work Phone: [facility] [address] Comment on above: Nonrheumatic aortic valve stenosis Start: 03-06-2024 Refill Abby monroy MD Work Phone: Internal [facility] Comment on above: Refill Request Start: 02-25-2024 End: 02-25-2024 ambulatory KAMLESH ACOSTA Facility:[facility] Start: 02-25-2024 End: 02-25-2024 Patient encounter procedure Kamlesh Acosta VICE PRESIDENT PLANNING.ROBOTIC MAINTENANCE TECHNICIAN Work Phone: [facility] [place] Comment on above: Medicare annual well ness [...] 02-19-2024 End: 02-19-2024 ambulatory KAMLESH ACOSTA Facility:[facility] Start: 11-15-2023 Refill Abby monroy MD Work Phone: [facility] [place] Comment on above: Refill Request Start: 11-12-2023 Refill Kamlesh Morgan PRN.ROBOTIC MAINTENANCE TECHNICIAN Work Phone: [facility] [place] Comment on above: Refill Request Start: 10-07-2023 Telephone encounter Myranda [facility] Comment on above: New Primary Care Pha rmacy Appt. Start: 10-03-2023 ambulatory [facility] Work Phone: [facility] Start: 07-12-2023 Telephone encounter Abby doshi MD Work Phone: Radiology Comment on above: Orders (labs) Start: 05-16-2023 Refill Abby monroy MD Work Phone: [facility] [place] Comment on above: Refill Request Start: 05-11-2023 End: 05-11-2023 ambulatory [facility] Work Phone: [facility] Start: 04-29-2023 Documentation procedure Mammog andre Coordinator [facility] Start: 04-29-2023 Letter encounter Mammography Coordinator [facility] Department Start: 04-26-2023 End: 04-26-2023 Subsequent hospital visit by physician Screen Mammo [facility] Comment on above: Encounter for screen ing mammogram for breast cancer [Z12.31] Start: 04-19-2023 End: 04-19-2023 Patient encounter procedure Kamlesh Acosta VICE PRESIDENT PLANNING.ROBOTIC MAINTENANCE TECHNICIAN Work Phone: Internal [facility] [place] Comment on above: Type 2 diabetes jose roberto itus with hyperglycemia, without long-term current use of insulin (HCC) (Primary Dx); Essential hypertension; Hyperlipidemia associated with type 2 diabetes mellitus (HCC) ; Moderate aortic stenosis by prior echocardiogram; Acute cough Start: 01-18-2023 Telephone encounter Abby doshi MD Work Phone: Internal [facility] Comment on above: Orders (glucometer) Start: 01-16-2023 ambulatory Genna Steiner MA [facility] [place] Comment on above: Population Health Na vigation Outreach ([employer] Care Gaps ) Start: 11-09-2022 Refill Abby monroy MD Work Phone: Family [facility] Comment on above: Refill Request Start: 10-18-2022 Telephone encounter Abby doshi MD Work Phone: [facility] [place] Comment on above: Statin Therapy Start: 07-31-2022 End: 07-31-2022 Subsequent hospital visit by physician [facility] Work Phone: Radiology Comment on above: Acute cough [R05.1] Start: 07-31-2022 End: 07-31-2022 Patient encounter procedure Keily Mckinney VICE PRESIDENT PLANNING.ROBOTIC MAINTENANCE TECHNICIAN Work Phone: [facility] Comment on above: Acute cough (Primary Dx) Start: 05-15-2022 End: 05-15-2022 Nursing evaluation of patient and report Mi Nurse Work Phone: Family [facility] Comment on above: Need for vaccination (Primary Dx) Start: 05-04-2022 Telephone encounter [facility] holden VICE PRESIDENT PLANNING.SENIOR AUDIT MANAGER Work Phone: Internal Medicine [place] Comment on above: Orders Start: 04-25-2022 End: 04-25-[address] Abby Mcclellan Work Phone: [facility] Work Phone: Start: 04-25-2022 End: 04-25-[address] Abby Mcclellan Work Phone: [facility]-Outpatient Breast Imaging Start: 04-18-2022 End: 04-18-2022 Office outpatient visit 25 minutes Abby Mcclellan MD Work Phone: [facility] [place] Comment on above: Controlled type 2 di abetes mellitus without complication, without long-term current use of insulin (HCC) (Primary Dx); Plantar fasciitis of right foot; Nonrheumatic aortic valve stenosis; Encounter for screening mammogram for breast cancer; Essential hypertension Start: 02-12-2022 End: 02-12-[address] Abby Mcclellan Work Phone: [facility] Endocrinology Start: 12-22-2021 ambulatory Munira Edouard [place] [facility] [place] Comment on above: Population Health Na vigation Outreach ([employer] care gaps) Start: 12-05-2021 Telephone encounter Abby doshi MD Work Phone: [facility] [place] Comment on above: Follow Up (helevated glucose) Start: 12-01-2021 Non-patient / Non-visit Dr. Alisia Mcclellan Work Phone: [facility] Start: 12-01-2021 End: 12-01-[address] Abby Mcclellan Work Phone: [facility]-Cardiovascula r Services Start: 11-01-2021 End: 11-01-[address] Abby Mcclellan Work Phone: [facility] Start: 05-18-2020 End: 05-18-2020 Subsequent hospital visit by physician [facility] Work Phone: Radiology Comment on above: Cough [R05] Procedures Date Procedure Procedure Detail Performing Clinician Start: 03-05-2025 CT angiography of ch est with contrast Dr. Abby Mcclellan MD Work Phone: Start: 03-04-[address] Abby Mcclellan MD Work Phone: Start: 02-28-[address] Abby Mcclellan MD Work Phone: Start: 02-28-2025 Plain chest X-ray Dr. Nandini Mcclellan MD Work Phone: Start: 02-28-2025 Serum inorganic phos phate measurement Dr. Abby Mcclellan MD Work Phone: Start: 02-26-[address] Abby Mcclellan MD Work Phone: Start: 02-26-2025 Plain chest X-ray Dr. Nandini Mcclellan MD Work Phone: Start: 02-26-2025 Plain chest X-ray Dr. Nandini Mcclellan MD Work Phone: Start: 02-26-2025 Carbon dioxide measu rement, partial pressure Dr. Abby Mcclellan MD Work Phone: Start: 02-26-2025 Gases blood o2 satur ation only direct wendi Dr. Abby Mcclellan MD Work Phone: Start: 02-26-2025 Measurement of parti al pressure of oxygen in blood Dr. Abby Mcclellan MD Work Phone: Start: 02-26-2025 Methadone measurement, urine Dr. Abby Mcclellan MD Work Phone: Start: 02-25-2025 CT of thorax, abdome n and pelvis with contrast Dr. Abby Mcclellan MD Work Phone: Start: 02-25-2025 CT of head without contrast Dr. Abby Mcclellan MD Work Phone: Start: 02-25-2025 Plain chest X-ray Dr. Nandini Mcclellan MD Work Phone: Start: 02-25-2025 Urnls dip stick/tabl et reagent auto microscopy Dr. Abby Mcclellan MD Work Phone: Start: 02-25-[address] Abby Mcclellan MD Work Phone: Start: 02-25-[address] Abby Mcclellan MD Work Phone: Start: 02-25-2025 Identification proce jonn for living organism Dr. Abby Mcclellan MD Work Phone: Start: 02-25-[address] Abby Mcclellan MD Work Phone: Start: 02-25-2025 SARS-CoV-2, Influenz a & RSV (PCR) Dr. bAby Mcclellan MD Work Phone: Start: 02-25-[address] Abby Mcclellan MD Work Phone: Start: 05-07-2024 Echo tthrc r-t 2d w/ wom-mode compl spec&colr d Lindsey Tolentino VICE PRESIDENT PLANNING - [facility] Work Phone: Start: 05-07-2024 Ecg routine ecg w/le ast 12 lds trcg only w/o i&r Srinivasa Poon MD Work Phone: Start: 04-17-2024 Ecg routine ecg w/le ast 12 lds trcg only w/o i&r Srinivasa Poon MD Work Phone: Start: 04-08-2024 Glucose quantitative blood xcpt reagent strip Srinivasa Poon MD Work Phone: Start: 04-08-2024 Radiologic exam ches t 2 views Pita Marr VICE PRESIDENT PLANNING - [facility] Work Phone: Start: 04-08-2024 Glucose quantitative blood [...] 12 lds trcg only w/o i&r Pita Marr VICE PRESIDENT PLANNING - ROBOTIC MAINTENANCE TECHNICIAN Work Phone: Start: 04-07-2024 Electrophysiology study Katia Augustin VICE PRESIDENT PLANNING - ROBOTIC MAINTENANCE TECHNICIAN Work Phone: Start: 04-07-2024 Ecg routine ecg w/le ast 12 lds trcg only w/o i&r Lindsey Tolentino VICE PRESIDENT PLANNING - ROBOTIC MAINTENANCE TECHNICIAN Work Phone: Start: 04-07-2024 Ecg routine ecg w/le ast 12 lds trcg only w/o i&r Srinivasa Poon MD Work Phone: Start: 04-07-2024 Echo tthrc r-t 2d w/ wom-mode compl spec&colr d Lindsey Tolentino VICE PRESIDENT PLANNING - ROBOTIC MAINTENANCE TECHNICIAN Work Phone: Start: 04-07-2024 End: 04-07-2024 Glucose quantitative blood xcpt reagent strip Srinivasa Poon MD Work Phone: Start: 04-07-2024 OXYGEN THERAPY Lindsey Tolentino VICE PRESIDENT PLANNING - ROBOTIC MAINTENANCE TECHNICIAN Work Phone: Start: 04-07-2024 Ecg routine ecg w/le ast 12 lds trcg only w/o i&r Lindsey Tolentino VICE PRESIDENT PLANNING - ROBOTIC MAINTENANCE TECHNICIAN Work Phone: Start: 04-07-2024 Basic metabolic pane l calcium total Lindsey Tolentino VICE PRESIDENT PLANNING - ROBOTIC MAINTENANCE TECHNICIAN Work Phone: Start: 04-06-2024 Glucose quantitative blood xcpt reagent strip Srinivasa Poon MD Work Phone: Start: 04-06-2024 OXYGEN THERAPY Lindsey Tolentino VICE PRESIDENT PLANNING - ROBOTIC MAINTENANCE TECHNICIAN Work Phone: Start: 04-06-2024 Glucose quantitative blood xcpt reagent strip Srinivasa Poon MD Work Phone: Start: 04-06-2024 Ecg routine ecg w/le ast 12 lds trcg only w/o i&r Lindsey Tolentino VICE PRESIDENT PLANNING - ROBOTIC MAINTENANCE TECHNICIAN Work Phone: Start: 04-06-2024 Basic metabolic pane l calcium total Lindsey Delatorre Fer VICE PRESIDENT PLANNING - ROBOTIC MAINTENANCE TECHNICIAN Work Phone: Start: 04-06-2024 End: 04-06-2024 OXYGEN THERAPY Al HADLEY RN - [employer]OURI[employer] CABIN KEEPER Work Phone: Start: 04-06-2024 Cardiac catheterizat ion study Srinivasa Poon MD Work Phone: Start: 04-06-2024 Echo transthorc r-t 2d w/wo m-mode rec f-up/lmtd Joao Davis MD Work Phone: Start: 04-06-2024 End: 04-06-2024 TRANSCATHETER AORTIC VALVE REPLACEMENT (TAVR) - OR Jayson Key MD Work Phone: Start: 04-06-2024 Glucose quantitative blood xcpt reagent strip Srinivasa Poon MD Work Phone: Start: 04-06-2024 Antibody screen Zulma MORA Comment on above: Performed By: #### L [id number] ####Cnc Milling Machinist: GRISEL GARZA ([phone])[facility] ([facility])[address] [place] [address] Start: 04-06-2024 ABO and Rh group [Ty pe] in Blood by Confirmatory method Sunita Davis VICE PRESIDENT PLANNING - [facility] Work Phone: Start: 04-06-2024 Blood typing serologic abo Sunita Davis VICE PRESIDENT PLANNING - ROBOTIC MAINTENANCE TECHNICIAN Work Phone: Start: 04-06-2024 Glucose quantitative blood xcpt reagent strip Srinivasa Poon MD Work Phone: Start: 04-01-2024 Antibody screen KAMLESH PIRES Comment on above: Order Comment: Speci men Type: BLOOD SPECIMENOrdering Facility: [facility] Address: [address] [place] [address] Performed By: #### T SCR ####[facility] [id number] [address] [place] [address] [place] Start: 03-10-2024 Ecg routine ecg w/le ast 12 lds trcg only w/o i&r Srinivasa Poon MD Work Phone: Start: 02-25-2024 Adult depression scr eening assessment Kamlesh Acosta VICE PRESIDENT PLANNING.ROBOTIC MAINTENANCE TECHNICIAN Work Phone: Start: 05-11-2023 INFLUENZA VACCINE, P RSV FREE, AGE 65+ YR, HIGH DOSE, QUADRIVALENT (FLUZONE HIGH-DOSE) Abby Mcclellan MD Work Phone: Start: 04-26-2023 Screening mammograph y bi 2-view breast inc cad Abby Mcclellan MD Work Phone: Start: 07-31-2022 Radiologic exam ches t 2 views Keily Mckinney VICE PRESIDENT PLANNING.ROBOTIC MAINTENANCE TECHNICIAN Work Phone: Start: 04-25-2022 End: 04-25-[address] Abby Mcclellan Work Phone: Start: 04-20-2021 Mammography Abby pierce MD Work Phone: Start: 02-14-2021 Adult depression scr eening assessment Abby Mcclellan MD Work Phone: Start: 05-18-2020 Radiologic exam ches t 2 views Abdullahi Flannery VICE PRESIDENT PLANNING.ROBOTIC MAINTENANCE TECHNICIAN Work Phone: Start: 02-10-2019 Colonoscopy [facility] holden VICE PRESIDENT PLANNING.SENIOR AUDIT MANAGER Work Phone: Start: 02-02-2019 Colonoscopy Abby pierce MD Work Phone: Plan of Treatment Date Care Activity Detail Author Start: 02-10-2029 Colonoscopy COLONOSCOPY [facility] Start: 02-10-2029 COLORECTAL CANCER SCREENING COLORECTAL CANCER SCREENING [facility] Start: 02-10-2029 Screening for malign ant neoplasm of colon [facility] Start: 01-11-2026 Annual PCP Team Bedspread Cutter Hand lauren Disease Visit Annual PCP Team Chronic Disease Visit [facility] Start: 11-10-2025 Annual PCP Team Bedspread Cutter Hand lauren Disease Visit Annual PCP Team Chronic Disease Visit [facility] Start: 11-10-2025 BP Controlled (<130/80) BP Controlle d (<130/80) [facility] Start: 09-29-2025 Annual PCP Team Bedspread Cutter Hand lauren Disease Visit Annual PCP Team Chronic Disease Visit [facility] Start: 09-29-2025 BP Controlled (<130/80) BP Controlle d (<130/80) [facility] Start: 09-19-2025 Hepatitis B screening Urine Al bumin:Creatinine Ratio [facility] Start: 09-19-2025 Hepatitis B surface antibody level LDL Cholesterol [facility] Start: 06-19-2025 Glaucoma screening Dilated Retinal E xam [facility] Start: 05-21-2025 End: 04-17-2026 US Heart Transthoracic Transthoracic echocardiogram (TTE) complete with contrast, bubble, strain, and 3D PRN CV Echocardiography Routine S/P TAVR (transcatheter aortic valve replacement) Aortic valve stenosis, etiology of cardiac valve disease unspecified Expected: 05/21/2025 (Approximate), Expires: 04/17/2026 [facility] Comment on above: Expected: 05/21/2025 (Approximate), Expires: 04/17/2026 Start: 05-04-2025 Diabetes: Estimated Glomerular Filtration Rate for Kidney [facility] Diabetes: Estimated Glomerular Filtration Rate for [employer] Start: 04-08-2025 Diabetes: Estimated Glomerular Filtration Rate for [facility] Diabetes: Estimated Glomerular Filtration Rate for [facility] Start: 04-01-2025 Diabetes: Estimated Glomerular Filtration Rate for [facility] Diabetes: Estimated Glomerular Filtration Rate for [facility] Start: 03-29-2025 Influenza vaccination S [facility] Start: 03-05-2025 [facility] Start: 03-04-2025 End: 03-04-2025 Patient encounter procedure [facility] [address] Non-Invasive Cardiology Start: 03-04-2025 Patient discharge [facility] Start: 03-01-2025 Referral to occupati onal therapist [facility] Start: 03-01-2025 Referral to service [facility] Start: 02-28-2025 [facility] Start: 02-28-2025 Blood culture Blood Culture [facility] Start: 02-26-2025 Consultation [facility] Start: 02-26-2025 Oxygen therapy [facility] Start: 02-26-2025 Application of intermittent pneumatic compression device [facility] Start: 02-26-2025 Following clinical pathway protocol [facility] Start: 02-26-2025 Cardiac monitoring [facility] Start: 02-26-2025 Catheterization of vein [facility] Start: 02-26-2025 Notification of physician [facility] Start: 02-26-2025 Vital signs measurements [facility] Start: 02-26-2025 Gas panel - Arterial blood [facility] Start: 02-26-2025 End: 02-26-2025 [facility] Start: 02-26-2025 Admission procedure [facility] Start: 02-26-2025 Hospital admission, emergency, from emergency room, medical nature [facility] Start: 02-26-2025 Consultation [facility] Start: 02-26-2025 Patient referral to dietitian [facility] Start: 02-25-2025 End: 02-26-2025 [facility] Start: 02-25-2025 Bacteria identified in Blood by Culture Blood Culture [facility] Start: 02-25-2025 Bacteria identified in Urine by Culture Urine Culture [facility] Start: 02-25-2025 Respiratory Panel (PCR) Respiratory Panel (PCR) [facility] Start: 02-24-2025 Annual PCP Team Bedspread Cutter Hand lauren Disease Visit Annual PCP Team Chronic Disease Visit [facility] Start: 02-24-2025 Anxiety Screening Anxiety Screening [facility] Start: 02-24-2025 BP Controlled (<130/80) BP Controlle d (<130/80) [facility] Start: 02-24-2025 Depression Screening Depression Scre ening [facility] Start: 02-15-2025 End: 02-15-2025 Patient encounter procedure 02/15/2025 11:00 AM EDT Office Visit [facility] [place] [address] [place] [address] Kamlesh Acosta APRN.[facility] [address] [place] [address] 5 week follow up of pain and new medications [facility] [place] Comment on above: 5 week follow up of pain and new medications Start: 01-11-2025 End: 01-11-2025 Patient encounter procedure 01/11/2025 11:20 AM EDT Office Visit Internal Medicine [facility] [address] [place] [address] Kamlesh Acosta APRN.ROBOTIC MAINTENANCE TECHNICIAN [address] [place] [address] 8 week follow up Internal Medicine [facility]idi Comment on above: 8 week follow up Start: 12-17-2024 Hemoglobin A1c measurement HbA1C [facility] Start: 11-10-2024 End: 11-10-2024 Patient encounter procedure 11/10/2024 11:20 AM EDT Office Visit Internal Medicine [facility] [address] [place], [place] [address] Kamlesh Acosta APRN.ROBOTIC MAINTENANCE TECHNICIAN [address] [place] [address] 6 week follow up Internal Medicine Heidi Comment on above: 6 week follow up Start: 10-24-2024 Annual PCP Team Bedspread Cutter Hand lauren Disease Visit Annual PCP Team Chronic Disease Visit [facility] Start: 10-24-2024 BP Controlled (<130/80) BP Controlle d (<130/80) [facility] Start: 10-24-2024 Covid-19 Vaccine () Covid-19 Vaccine () [facility] Comment on above: Postponed from 03/29 (Declined at this time) Start: 10-24-2024 Diabetic foot examination Diabetic Foot Exam [facility] Start: 10-17-2024 Hepatitis B surface antibody level LDL Cholesterol [facility] Start: 09-29-2024 End: 09-29-2024 Patient encounter procedure Internal Medicine Heidi Comment on above: follow up Start: 09-12-2024 End: 12-12-2024 Comprehensive metabolic 2000 panel - Serum or Plasma COMPREHENSIVE METABOLIC PANEL Lab Routine Type 2 diabetes mellitus with other specified complication, without long-term current use of insulin (HCC) Hypertension goal BP (blood pressure) < 140/90 Expected: 09/12/2024 (Approximate), Expires: 12/12/2024 [facility] Comment on above: Expected: 09/12/2024 (Approximate), Expires: 12/12/2024 Start: 09-12-2024 End: 12-12-2024 Hemoglobin A1c in Blood HEMOGLOBIN A1C Lab Routine Type 2 diabetes mellitus with other specified complication, without long-term current use of insulin (HCC) Expected: 09/12/2024 (Approximate), Expires: 12/12/2024 [facility] Work Phone: Comment on above: Expected: 09/12/2024 (Approximate), Expires: 12/12/2024 Start: 09-12-2024 End: 12-12-2024 Lipid 1996 panel - Serum or Plasma LIPID PANEL BASIC Lab Routine Hyperlipidemia associated with type 2 diabetes mellitus (HCC) (HCC) Expected: 09/12/2024 (Approximate), Expires: 12/12/2024 [facility] Comment on above: Expected: 09/12/2024 (Approximate), Expires: 12/12/2024 Start: 09-12-2024 End: 12-12-2024 Microalbumin/Creatinine [Mass Ratio] in Urine ALBUMIN/CREATININE RATIO, URINE Lab Routine Type 2 diabetes mellitus with other specified complication, without long-term current use of insulin (HCC) Expected: 09/12/2024 (Approximate), Expires: 12/12/2024 [facility] Comment on above: Expected: 09/12/2024 (Approximate), Expires: 12/12/2024 Start: 08-21-2024 Hemoglobin A1c measurement HbA1C [facility] Start: 07-29-2024 Advance Directive Discussion Advance Directive Discussion [facility] Start: 07-29-2024 Medicare Advantage Annual Wellness Visit Medicare Advantage Annual Wellness Visit [facility] Start: 07-26-2024 Annual PCP Team Bedspread Cutter Hand lauren Disease Visit Annual PCP Team Chronic Disease Visit [facility] Start: 07-26-2024 BP Controlled (<130/80) BP Controlle d (<130/80) [facility] Start: 07-26-2024 Diabetes: Urine Albumin-Creatinine Ratio for [facility] Diabetes: Urine Albumin-Creatinine Ratio for [facility] Start: 07-26-2024 Hepatitis B screening Urine Al bumin:Creatinine Ratio [facility] Start: 07-10-2024 End: 07-10-2024 Professional / ancillary services management 07/10/2024 1:00 PM EST Ancillary Procedure [facility] [place] [address] [place] [id number] [facility] [place] Start: 06-29-2024 End: 06-29-2024 Patient encounter procedure 06/29/2024 11:20 AM EST Office Visit Internal Medicine Heidi [address] [place] [address] Heidy Hawk APRN.SENIOR AUDIT MANAGER [address] [place] [address] 4 month follow up Internal Medicine [facility]idi Comment on above: 4 month follow up Start: 06-01-2024 End: 08-31-2024 CBC W Auto Differential panel - Blood COMPLETE BLOOD COUNT AND DIFFERENTIAL Lab Routine Encounter for therapeutic drug monitoring Expected: 06/01/2024, Expires: 08/31/2024 [facility] Work Phone: Comment on above: Expected: 06/01/2024 , Expires: 08/31/2024 Start: 06-01-2024 End: 08-31-2024 Comprehensive metabolic 2000 panel - Serum or Plasma COMPREHENSIVE METABOLIC PANEL Lab Routine Encounter for therapeutic drug monitoring Expected: 06/01/2024, Expires: 08/31/2024 [facility] Comment on above: Expected: 06/01/2024 , Expires: 08/31/2024 Start: 06-01-2024 End: 08-31-2024 Hemoglobin A1c in Blood HEMOGLOBIN A1C Lab Routine Type 2 diabetes mellitus with other specified complication, without long-term current use of insulin (HCC) Expected: 06/01/2024, Expires: 08/31/2024 [facility] Comment on above: Expected: 06/01/2024 , Expires: 08/31/2024 Start: 06-01-2024 End: 08-31-2024 Lipid 1996 panel - Serum or Plasma LIPID PANEL BASIC Lab Routine Hyperlipidemia associated with type 2 diabetes mellitus (HCC) (HCC) Expected: 06/01/2024, Expires: 08/31/2024 [facility] Comment on above: Expected: 06/01/2024 , Expires: 08/31/2024 Start: 05-29-2024 Glaucoma screening Dilated Retinal E xam [facility] Start: 05-29-2024 Hepatitis C antibody , confirmatory test Dilated Retinal Exam [facility] Start: 05-07-2024 End: 05-07-2024 Patient encounter procedure [facility] [address] [facility] Start: 05-07-2024 End: 05-07-2024 Professional / ancillary services management 05/07/2024 1:30 PM EDT Ancillary Procedure [facility] [place] [address] [place] [address] [facility] [place] Start: 04-28-2024 End: 04-28-2024 Professional / ancillary services management 04/28/2024 1:00 PM EDT Ancillary Procedure [facility] [place] [address] [place] [address] [facility] Start: 04-26-2024 Mammography Mammogram Screening [facility] Start: 04-26-2024 Screening for malign ant neoplasm of breast Mammogram Screening [facility] Start: 04-19-2024 Annual PCP Team Bedspread Cutter Hand lauren Disease Visit Annual PCP Team Chronic Disease Visit [facility] Start: 04-19-2024 BP Controlled (<130/80) BP Controlle d (<130/80) [facility] Start: 04-19-2024 Hemoglobin A1c measurement HbA1C [facility] Start: 04-17-2024 End: 04-17-2025 Basic metabolic 1998 panel - Serum or Plasma Basic metabolic panel Lab Routine Essential hypertension S/P TAVR (transcatheter aortic valve replacement) Aortic valve stenosis, etiology of cardiac valve disease unspecified Expected: 04/17/2024 (Approximate), Expires: 04/17/2025 [facility] Work Phone: Comment on above: Expected: 04/17/2024 (Approximate), Expires: 04/17/2025 Start: 04-17-2024 End: 04-17-2025 CBC W Auto Differential panel - Blood CBC auto differential Lab Routine Essential hypertension S/P TAVR (transcatheter aortic valve replacement) Aortic valve stenosis, etiology of cardiac valve disease unspecified Expected: 04/17/2024 (Approximate), Expires: 04/17/2025 [facility] Comment on above: Expected: 04/17/2024 (Approximate), Expires: 04/17/2025 Start: 04-17-2024 End: 04-17-2025 Thyrotropin [Units/volume] in Serum or Plasma TSH Lab Routine Essential hypertension S/P TAVR (transcatheter aortic valve replacement) Aortic valve stenosis, etiology of cardiac valve disease unspecified Expected: 04/17/2024 (Approximate), Expires: 04/17/2025 [facility] Comment on above: Expected: 04/17/2024 (Approximate), Expires: 04/17/2025 Start: 04-16-2024 End: 04-16-2024 Patient encounter procedure 04/16/2024 1:30 PM EDT Office Visit [facility] [address] [place] [id number] Sunita Davis APRN - ROBOTIC MAINTENANCE TECHNICIAN [address] [place] [address] [facility] Start: 04-15-2024 Hepatitis B surface antibody level LDL Cholesterol [facility] Start: 04-06-2024 End: 04-06-2024 Admission to same day surgery center 04/06/2024 11:00 AM EDT - 04/06/2024 12:45 PM EDT Surgery [facility] OR [address] [place] [address] Srinivasa Poon MD [address] [facility] [address] [place] [address] TRANSCATHETER AORTIC VALVE REPLACEMENT, TRANSTHORACIC ECHOCARDIOGRAM [facility] Comment on above: TRANSCATHETER AORTIC VALVE REPLACEMENT, TRANSTHORACIC ECHOCARDIOGRAM Start: 04-06-2024 End: 04-06-2024 Anesthesia consultation 04/06/2024 11:00 AM EDT Anesthesia Event [facility] [address] [place] [address] Radha Marquez VICE PRESIDENT PLANNING - ROBOTIC MAINTENANCE TECHNICIAN 1 [facility] [address] [place] [address] [facility] Start: 04-06-2024 Subsequent hospital visit by physician 04/06/2024 11:00 AM EDT Hospital Encounter [facility] [address] [place] [phone] Srinivasa Poon MD [address] [facility] [address] [facility] [address] [place] [address] Nonrheumatic aortic valve stenosis [facility] Comment on above: Nonrheumatic aortic valve stenosis Start: 04-06-2024 End: 04-06-2024 TRANSCATHETER AORTIC VALVE REPLACEMENT (TAVR) - OR TRANSCATHETER AORTIC VALVE REPLACEMENT (TAVR) - OR Nonrheumatic aortic valve stenosis 04/06/2024 11:00 AM EDT [facility] Start: 03-29-2024 COVID-19 Vaccine () COVID-19 Vaccine () [facility] Start: 03-29-2024 Covid-19 Vaccine () Covid-19 Vaccine () [facility] Start: 03-29-2024 Influenza vaccination Influenza Vacc ine (#1) [facility] Start: 12-18-2023 ANNUAL PCP TEAM PHARMACY GRADUATE INTERN LAUREN DISEASE VISIT ANNUAL PCP TEAM CHRONIC DISEASE VISIT [facility] Start: 12-18-2023 BP CONTROLLED (<130/80) BP CONTROLLE D (<130/80) [facility] Start: 12-13-2023 Hepatitis B surface antibody level LDL CHOLESTEROL [facility] Start: 10-25-2023 Hemoglobin A1c measurement HbA1C [facility] Start: 08-14-2023 ANNUAL PCP TEAM PHARMACY GRADUATE INTERN LAUREN DISEASE VISIT ANNUAL PCP TEAM CHRONIC DISEASE VISIT [facility] Start: 08-06-2023 Hepatitis B screening URINE AL BUMIN:CREATININE RATIO [facility] Start: 08-06-2023 Hepatitis B surface antibody level LDL CHOLESTEROL [facility] Start: 07-31-2023 BP CONTROLLED (<130/80) BP CONTROLLE D (<130/80) [facility] Start: 07-29-2023 Advance Directive Discussion Advance Directive Discussion [facility] Start: 07-29-2023 Behavioral Health Screening Behavioral Health Screening [facility] Start: 07-29-2023 Depression Assessment Depression Ass essment [facility] Start: 07-29-2023 Medicare Advantage Annual Wellness Visit Medicare Advantage Annual Wellness Visit [facility] Start: 07-15-2023 Hemoglobin A1c measurement HbA1C [facility] Start: 07-15-2023 Hemoglobin A1c/Hemoglobin.total in Blood HbA1C [facility] Start: 2023 Hemoglobin A1c/Hemoglobin.total in Blood HBA1C [facility] Start: 2023 RSV Immunization for Adults (1 - 1-dose 75+ series) RSV Immunization for Adults (1 - 1-dose 75+ series) [facility] Start: 2023 RSV Vaccine (1 - 1-d ose 75+ series) RSV Vaccine (1 - 1-dose 75+ series) [facility] Start: 04-25-2023 Mammography [facility] Start: 04-18-2023 ANNUAL PCP TEAM PHARMACY GRADUATE INTERN LAUREN DISEASE VISIT ANNUAL PCP TEAM CHRONIC DISEASE VISIT [facility] Start: 04-18-2023 BP CONTROLLED (<130/80) BP CONTROLLE D (<130/80) [facility] Start: 04-18-2023 COVID-19 VACCINE (#1) COVID-19 VACCI NE (#1) [facility] Comment on above: Postponed from 12/12 (Declined at this time) Start: 04-18-2023 SHINGRIX VACCINE (1 of 2) SHINGRIX VACCINE (1 of 2) [facility] Comment on above: Postponed from 06/14 (Declined at this time) Start: 04-18-2023 Urine microalbumin profile DTAP,TDAP,TD (1 - Tdap) [facility] Comment on above: Postponed from 09/07 (Declined at this time) Start: 04-03-2023 Hepatitis C antibody , confirmatory test DILATED RETINAL EXAM [facility] Start: 03-29-2023 Covid-19 Vaccine ( season) Covid-19 Vaccine ( season) [facility] Start: 03-29-2023 Influenza vaccination Influenza Vacc ine (#1) [facility] Start: 02-03-2023 Hemoglobin A1c/Hemoglobin.total in Blood HBA1C [facility] Start: 12-07-2022 BP CONTROLLED (<130/80) BP CONTROLLE D (<130/80) [facility] Start: 10-10-2022 Hemoglobin A1c/Hemoglobin.total in Blood HBA1C [facility] Start: 09-06-2022 ANNUAL PCP TEAM PHARMACY GRADUATE INTERN LAUREN DISEASE VISIT ANNUAL PCP TEAM CHRONIC DISEASE VISIT [facility] Start: 08-28-2022 Hepatitis B screening URINE AL BUMIN:CREATININE RATIO [facility] Start: 08-18-2022 End: 10-18-2022 ALBUMIN/CREAT RATIO RND UR ALBUMIN/CREAT RATIO RND UR Lab Routine Controlled type 2 diabetes mellitus without complication, without long-term current use of insulin (HCC) Expected: 08/18/2022 (Approximate), Expires: 10/18/2022 [facility] Work Phone: Comment on above: Expected: 08/18/2022 (Approximate), Expires: 10/18/2022 Start: 08-18-2022 End: 10-18-2022 CBC panel - Blood by Automated count CBC Lab Routine Controlled type 2 diabetes mellitus without complication, without long-term current use of insulin (HCC) Essential hypertension Expected: 08/18/2022 (Approximate), Expires: 10/18/2022 [facility] Work Phone: Comment on above: Expected: 08/18/2022 (Approximate), Expires: 10/18/2022 Start: 08-18-2022 End: 10-18-2022 Comprehensive metabolic 2000 panel - Serum or Plasma COMP METABOLIC PANEL Lab Routine Controlled type 2 diabetes mellitus without complication, without long-term current use of insulin (HCC) Essential hypertension Expected: 08/18/2022 (Approximate), Expires: 10/18/2022 [facility] Work Phone: Comment on above: Expected: 08/18/2022 (Approximate), Expires: 10/18/2022 Start: 08-18-2022 End: 10-18-2022 Hemoglobin A1c in Blood HGB A1C Lab Routine Controlled type 2 diabetes mellitus without complication, without long-term current use of insulin (HCC) Expected: 08/18/2022 (Approximate), Expires: 10/18/2022 [facility] Work Phone: Comment on above: Expected: 08/18/2022 (Approximate), Expires: 10/18/2022 Start: 08-18-2022 End: 10-18-2022 Lipid 1996 panel - Serum or Plasma LIPID PANEL BASIC Lab Routine Controlled type 2 diabetes mellitus without complication, without long-term current use of insulin (HCC) Essential hypertension Expected: 08/18/2022 (Approximate), Expires: 10/18/2022 [facility] Work Phone: Comment on above: Expected: 08/18/2022 (Approximate), Expires: 10/18/2022 Start: 07-29-2022 ADVANCE DIRECTIVE DISCUSSION ADVANCE DIRECTIVE DISCUSSION [facility] Start: 07-29-2022 DEPRESSION ASSESSMENT DEPRESSION ASS ESSMENT [facility] Start: 07-10-2022 SHINGRIX VACCINE (2 of 2) SHINGRIX VACCINE (2 of 2) [facility] Start: 07-03-2022 Hzv zoster vacc recombinant adjuvanted im njx ZOSTER VACC RECOMBINANT,IM Immunization/Injection Routine Need for vaccination Expected: 07/03/2022 (Approximate) [facility] Work Phone: Comment on above: Expected: 07/03/2022 (Approximate) Start: 04-20-2022 Mammography MAMMOGRAM [facility] Start: 03-29-2022 Influenza vaccination INFLUENZA (#1) [facility] Start: 03-06-2022 Hemoglobin A1c/Hemoglobin.total in Blood HBA1C [facility] Start: 02-14-2022 3 comp foot exam completed DIABETIC FOOT EXAM [facility] Start: 02-14-2022 Adult depression screening assessment DEPRESSION SCREENING [facility] Start: 02-14-2022 COVID-19 VACCINE (#1) COVID-19 VACCI NE (#1) [facility] Comment on above: Postponed from 06/14 (Declined at this time) Start: 02-14-2022 Diabetic foot examination Diabetic Foot Exam [facility] Start: 02-10-2022 Hepatitis B surface antibody level LDL CHOLESTEROL [facility] Start: 02-02-2022 Colonoscopy COLONOSCOPY [facility] Start: 02-02-2022 COLORECTAL CANCER SCREENING COLORECTAL CANCER SCREENING [facility] Start: 07-29-2021 ADVANCE DIRECTIVE DISCUSSION ADVANCE DIRECTIVE DISCUSSION [facility] Start: 07-29-2021 DEPRESSION ASSESSMENT DEPRESSION ASS ESSMENT [facility] Start: 03-10-2021 Hepatitis C antibody , confirmatory test DILATED RETINAL EXAM [facility] Start: 09-07-2011 DTaP/Tdap/Td Vaccine s (1 - Tdap) DTaP/Tdap/Td Vaccines (1 - Tdap) [facility] Start: 09-07-2011 Urine microalbumin profile [facility] Start: 2008 Hepatitis B Vaccine (1 of 3 - Risk 3-dose series) Hepatitis B Vaccine (1 of 3 - Risk 3-dose series) [facility] Start: 2008 RSV Immunization age d 60 or older (1 - 1-dose 60+ series) RSV Immunization aged 60 or older (1 - 1-dose 60+ series) [facility] Start: 2008 RSV Vaccine (1 - 1-d ose 60+ series) RSV Vaccine (1 - 1-dose 60+ series) [facility] Start: 1998 SHINGRIX VACCINE (1 of 2) SHINGRIX VACCINE (1 of 2) [facility] Start: 1993 COLOGUARD (FIT-DNA) COLOGUARD (FIT-D NA) [facility] Start: [address] COLONOGRAPHY [facility] Start: 1993 FECAL OCCULT BLOOD FECAL OCCULT BLOO D [facility] Start: 1993 Screening for malign ant neoplasm of colon [facility] Start: 1993 SIGMOIDOSCOPY SIGMOIDOSCOPY [facility] Start: 1966 BP CONTROLLED (<130/80) BP CONTROLLE D (<130/80) [facility] Start: 1966 Diabetes: Estimated Glomerular Filtration Rate for Kidney Health Diabetes: Estimated Glomerular Filtration Rate for Kidney Health [facility] Start: 1966 Hepatitis C screening Hepatitis C Sc reening [facility] Start: 1960 Depression Screening Depression Scre ening [facility] Start: 1958 Glaucoma screening Diabetes: R etinopathy Screening [facility] Start: 1948 Covid-19 Vaccine (#1) Covid-19 Vacci ne (#1) [facility] Start: 1948 Screening for malign ant neoplasm of colon [facility] Start: 1948 Screening for osteoporosis Bone Density Scan [facility] End: 03-10-2024 CT Chest WO and CT angiogram Coronary arteries W contrast IV [facility] Work Phone: Comment on above: Once for 1 Occurrenc es starting 03/10/2024 until 03/10/2024 ECG 12 lead - CLINIC PERFORMED ECG 12 lead - CLINIC PERFORMED CV ECG Routine PAF (paroxysmal atrial fibrillation) (HCC) 03/10/2024 3:05 PM EDT [facility] Work Phone: ECG 12 lead - CLINIC PERFORMED ECG 12 lead - CLINIC PERFORMED CV ECG Routine Essential hypertension 04/17/2024 1:10 PM EDT [facility] Work Phone: ECG 12 lead - CLINIC PERFORMED ECG 12 lead - CLINIC PERFORMED CV ECG Routine Severe aortic stenosis 05/07/2024 3:40 PM EDT [facility] Work Phone: Folate [Moles/volume ] in Serum or Plasma [facility] Hzv zoster vacc recombinant adjuvanted im njx ZOSTER VACC RECOMBINANT,IM Immunization/Injection Routine Need for vaccination Ordered: 05/04/2022 [facility] Work Phone: Comment on above: Ordered: 05/04/2022 Lactic acid measurement [facility] Patient Education DVT Tx [facility] Work Phone: Respiratory pathogen s DNA and RNA panel - Respiratory specimen by GIDEON with probe detection [facility] End: 05-18-2023 Screening mammography bi 2-view breast inc cad DAVID SCREENING Radiology Routine Encounter for screening mammogram for breast cancer 1 Occurrences starting 04/18/2022 until 05/18/2023 [facility] Work Phone: Comment on above: 1 Occurrences starti ng 04/18/2022 until 05/18/2023 Urine culture [facility] Immunizations Immunization Date Immunization Notes Care Provider Chelsie schmidt 09-29-2024 influenza, high dose seasonal, preservative-free Kamlesh Acosta APRN.CNP Work Phone: [facility] 09-29-2024 influenza virus vaccine, unspecified formulation Abby Mcclellan MD Work Phone: [facility] 05-11-2023 influenza (HD-IIV4) vaccine, age 65+ yr, high dose, quadrivalent, PF (FLUZONE HIGH-DOSE) Immunization [place] Work Phone: [facility] 05-11-2023 influenza virus vaccine, unspecified formulation Kamlesh Acosta VICE PRESIDENT PLANNING.ROBOTIC MAINTENANCE TECHNICIAN Work Phone: [facility] 08-14-2022 zoster vaccine recombinant Abby Mcclellan MD Work Phone: [facility] 05-19-2022 influenza, high-dose , quadrivalent vaccine (FLUZONE HIGH DOSE QUADRIVALENT) Keily Mckinney VICE PRESIDENT PLANNING.ROBOTIC MAINTENANCE TECHNICIAN Work Phone: [facility] 05-19-2022 influenza virus vaccine, unspecified formulation Kamlesh Acosta VICE PRESIDENT PLANNING.ROBOTIC MAINTENANCE TECHNICIAN Work Phone: [facility] 05-15-2022 zoster vaccine recombinant Mi Nurse Work Phone: [facility] Work Phone: 06-03-2021 influenza, high-dose , quadrivalent vaccine (FLUZONE HIGH DOSE QUADRIVALENT) Abby Mcclellan MD Work Phone: [facility] 07-01-2020 influenza, high-dose , quadrivalent vaccine (FLUZONE HIGH DOSE QUADRIVALENT) Abby Mcclellan MD Work Phone: [facility] 05-27-2019 influenza, high dose seasonal, preservative-free Abby Mcclellan MD Work Phone: [facility] 05-12-2018 influenza, high dose seasonal, preservative-free Abby Mcclellan MD Work Phone: [facility] 05-08-2017 influenza, high dose seasonal, preservative-free Abby Mcclellan MD Work Phone: [facility] 12-31-2016 pneumococcal polysaccharide vaccine, 23 valent Abby Mcclellan MD Work Phone: [facility] 06-27-2016 influenza, high dose seasonal, preservative-free Abby Mcclellan MD Work Phone: [facility] 11-07-2015 pneumococcal conjuga te vaccine, 13 valent Abby Mcclellan MD Work Phone: [facility] 05-29-2015 influenza, injectabl e, quadrivalent, preservative free Kamlesh Acosta APRN.CNP Work Phone: [facility] 05-29-2015 influenza, seasonal, injectable Dr. Abby Mcclellan Work Phone: [facility] 05-25-2015 influenza, high dose seasonal, preservative-free Abby Mcclellan MD Work Phone: [facility] 08-10-2013 influenza virus vaccine, unspecified formulation Abby Mcclellan MD Work Phone: [facility] 05-19-2012 influenza virus vaccine, unspecified formulation bAby Mcclellan MD Work Phone: [facility] 09-06-2011 tetanus and diphther ia toxoids, adsorbed, preservative free, for adult use (2 Lf of tetanus toxoid and 2 Lf of diphtheria toxoid) Abby Mcclellan MD Work Phone: [facility] Work Phone: 07-25-2011 influenza virus vaccine, unspecified formulation Abby Mcclellan MD Work Phone: [facility] 05-16-2010 influenza virus vaccine, unspecified formulation Abby Mcclellan MD Work Phone: [facility] 05-10-2008 influenza virus vaccine, unspecified formulation Abby Mcclellan MD Work Phone: [facility] 07-08-2007 influenza virus vaccine, unspecified formulation Abby Mcclellan MD Work Phone: [facility] 04-16-2006 tetanus and diphther ia toxoids, adsorbed, preservative free, for adult use (2 Lf of tetanus toxoid and 2 Lf of diphtheria toxoid) Abby Mcclellan MD Work Phone: [facility] Work Phone: Payers Date Payer Category Payer Self-pay [id number] 2022 Medicare (Managed Care) [employer] [id number] 2022 Medicare HMO [employer] MEDICARE [id number] 2022 Medicare [id number] 2021 Medicare HUMANA MEDICARE HU[employer]NA MEDICARE PPO [id number] 2021-Present [phone] [address] [place] [address] [id number] 2017 Medicare [id number]. [id number] 2014 Unknown [id number] Unknown [id number] 2.0.1.419162.3.579. 2.462 Unknown [id number] 2.1.083652.3.579. 2.462 Unknown [id number] 2.16.840.1.995146.3.579. 2.462 Unknown [id number] 2.16.840.1.840778.3.579. 2.462 Unknown [id number] 2.16.840.1.497202.3.579. 2.462 Unknown [id number] 2.16.840.1.037275.3.579. 2.462 Unknown [id number] 2.16.840.1.095333.3.579. 2.462 Unknown [id number] 2.16.840.1.989319.3.579. 2.462 Unknown [id number] 2.16.840.1.691180.3.579. 2.462 Unknown [id number] 2.16840.1.262270.3.579. 2.462 Unknown [id number] 2.840.1.299501.3.579. 2.462 Unknown [id number] 2.16840.1.187945.3.579. 2.462 Unknown [id number] 2.16.840.1.975825.3.579. 2.462 Unknown [id number] 2.16.840.1.600449.3.579. 2.462 Unknown [id number] 2.16.840.1.618893.3.579. 2.462 Unknown [id number] 2.16.840.1.209344.3.579. 2.462 Unknown [id number] 2.16.840.1.248423.3.579. 2.462 Unknown [id number] 2.16.840.1.285565.3.579. 2.462 Unknown [id number] 2.16.840.1.344843.3.579. 2.462 Unknown [id number] 2.16.840.1.373723.3.579. 2.462 Unknown [id number] 2.16.840.1.202679.3.579. 2.462 Unknown [id number] 2.16.840.1.331718.3.579. 2.462 Unknown [id number] 2.16.840.1.484593.3.579. 2.462 Unknown [id number] 2.16.840.1.854320.3.579. 2.462 Unknown [id number] 2.16.840.1.273119.3.579. 2.462 Unknown [id number] 2.16.840.1.227625.3.579. 2.462 Social History Date Type Detail Facility Start: 11-01-2021 End: 02-12-2022 Tobacco smoking status NHIS Unknown if ever smoked [facility] Work Phone: Start: 12-02-2019 None [facility] Start: 12-02-2019 Spouse/ Signif icant Other [facility] Start: 11-20-2019 Non-smoker [facility] Start: 1950 Sex Assigned At Female [facility] Start: 12-15-2010 End: 03-05-2025 Tobacco smoking status NHIS Never smoked tobacco [facility] Work Phone: Start: 02-14-2021 End: 01-11-2025 Alcohol intake Current non-drinker of alcohol (finding) [facility] Start: 1950 Sex Assigned At Not on file [facility] Start: 04-18-2020 End: 04-26-2022 Exposure to SARS-CoV-2 (event) Not sure [facility] Work Phone: Start: 12-15-2010 End: 03-03-2024 Tobacco use and exposure Smokeless tobacco non-user [facility] Work Phone: Start: 12-17-2022 End: 04-19-2023 History of Social function [facility] Work Phone: Start: 12-17-2022 End: 04-19-2023 Tobacco use panel [facility] Work Phone: Adult Depression Screening Assessment 0 [facility] Work Phone: Start: 03-10-2024 End: 05-07-2024 Alcoholic beverage intake Lifetime non-drinker (finding) [employer] Start: 02-07-2024 Sex Female (finding) [employer] [facility] Procedure Code Equipment Code Equipment [...] Lancets-Blood Glucose Strips Start: 09-21-2015 End: 10-25-2017 [id number], [id number], [id number], [id number] Start: 09-22-2015 End: 01-11-2025 Comment on above: Test blood sugar(s) 4 times daily. Dx: Type 2 DM - Uncontrolled E11.65 Insulin: Yes; Accucheck CHRISTI. [facility] Medical: [phone] Test blood sugar(s) 4 times daily. Dx: Type 2 DM - Uncontrolled E11.65 Insulin: Yes Test blood sugar(s) 1 time daily as directed. Dx: Type 2 DM - Controlled E11.9 Insulin: No Lancets-Blood Glucose Strips Start: 09-21-2015 End: 10-25-2017 Lead Pacing Tendril Sts 58cm - [id number] - [id number] Start: 04-07-2024 Lead Pacing Tendril Sts 52cm - [id number] - [id number] Start: 04-07-2024 Pacer Assurity D r Rf [place] - [id number] - [id number] Start: 04-07-2024 Valve Aor Katharine 3 Ultra 23mm - [id number] - [id number] Start: 04-06-2024 Comment on above: Description: [id number] Lancets-Blood Glucose Strips 1 EACH combo [...] EACH combo pack Start: 09-21-2015 End: 10-25-2017 Blood Sugar Diagnostic (Accu-Chek Guide Test Strips) strip Start: 02-26-2025 Lancets-Blood Glucose Strips 1 EACH combo pack Start: 09-21-2015 End: 10-25-2017 Blood Sugar Diagnostic (Accu-Chek Guide Test Strips) strip Start: 02-26-2025 Lancets-Blood Glucose Strips 1 EACH combo pack Start: 09-21-2015 End: 10-25-2017 Blood Sugar Diagnostic (Accu-Chek Guide Test Strips) strip Start: 02-26-2025 Lancets-Blood Glucose Strips 1 EACH combo pack Start: 09-21-2015 End: 10-25-2017 Goals Date Patient Goal Desired Activity /State Functional Status Date Assessment Result Facility 03-04-2025 Functional status [facility] Work Phone: 03-01-2015 Are you deaf, or do you have serious difficulty hearing No 03/01/2015 2:54 PM Chely Parkinson LPN No [facility] 03-01-2015 Are you blind, or do you have serious difficulty seeing, even when wearing glasses No 03/01/2015 2:54 PM Chely Parkinson LPN No [facility] 03-01-2015 Do you have serious difficulty walking or climbing stairs Yes 03/01/2015 2:54 PM Chely Parkinson LPN Yes [facility] 03-01-2015 Do you have difficul ty dressing or bathing No 03/01/2015 2:54 PM EDT Tao Chely VILLALBA No [facility] 03-01-2015 Because of a physica l, mental, or emotional condition, do you have difficulty doing errands alone such as visiting a physician's office or shopping No 03/01/2015 2:54 PM EDT Tao Chely BLUEN No [facility] Mental Status Date Assessment Result Facility 03-04-2025 Cognitive function Voice/Name [facility] Work Phone: 02-25-2025 Cognitive function Awake;Alert;Disoriente d [facility] Work Phone: 03-01-2015 Because of a physica l, mental, or emotional condition, do you have serious difficulty concentrating, remembering, or making decisions No 03/01/2015 2:54 PM EDT Tao Chely VILLALBA No [facility] Clinical Notes 08-29-2015 to 03-05-2025 Note Date & Type Note Facility 03-05-2025 Discharge summary Note Date/Time March 05, 2025 11:37am [facility] Medical Records Department [address] [place] [address] Emergency Department Summary 03/05/25 MR#: [id number] Acct: [id number] Name: JENNIFER GONZALEZ Rep #:[id number] : 1950 74 From: Luther Zapata MD PCP: Dr. Abby Mcclellan MD Status:RE G ER Location: ED HPI History of Present Illness Chief Complaint: Shortness of Breath Informant: patient, EMS and SNF Narrative Narrative: 74-year-old female sent to the ER today, she just arrived at [facility] yesterday after being discharged from the hospital here where she was treated for bacteremia and septic shock, according to the [facility] facility she has asymmetric swelling in her upper extremities, they did a Doppler of the left upper extremity and is positive for DVT so they started her on Eliquis but this morning she was tachypneic around 40 and tachycardic in the 120 area so they sent her here to be evaluated for pulmonary embolus. The patient does not recall this and states she has no complaints. She denies any dyspnea, chest discomfort, syncope or near syncope. She states her left arm is edematous but it does not hurt and she denies any other complaints right now. [facility] Medical History Paroxysmal atrial fibrillation Intermittent complete heart block Presence of cardiac [...] calcification Diabetes type 2, uncontrolled Morbid obesity Home Medications ?Medication ?Instructions ?Recorded ?Last Taken ?Type metoprolol succinate 25 mg 25 mg PO DAILY bp 06/01/24 Unknown History tablet,extended release 24 hr metformin 500 mg tablet 500 mg PO BID diabetes 06/02 Unknown History apixaban 5 mg tablet (Eliquis) 5 mg PO BID #180 tabs 0 02/08/25 Unknown Rx blood sugar diagnostic (Accu-Chek 02/26/25 Unknown Hi story Guide test strips) blood-glucose meter (Accu-Chek 02/26/25 Unknown Histo ry Guide Me Glucose Meter) calcium 600 mg (as 1 tab PO BID supplement 08/22 Unknown History carbonate)-vitamin D3 5 mcg (200 unit) tablet (Calcium 600 + D(3)) glimepiride 4 mg tablet 4 mg PO BID diabetes 5 Unknown History amiodarone 200 mg tablet 200 mg PO BID #0 tabs Unknown Rx cephalexin 500 mg capsule 500 mg PO Q6 #0 caps 5 Unknown Rx furosemide 40 mg tablet (Lasix) 40 mg PO DAILY #1 TAB 03/03/25 Unknown Rx insulin lispro 100 unit/mL See Protocol subcut ACHS #1 mL 03/03/25 Unknown Rx subcutaneous pen (Humalog KwikPen (U-100) Insulin) nystatin 100,000 unit/gram topical 1 applic topical BI D #0 grams 03/03/25 Unknown Rx powder pantoprazole 40 mg tablet,delayed 40 mg PO QHS #0 tabs 03/03/25 Unknown Rx release Allergy/AdvReac Type Severity Reaction Status Date / Time atorvastatin (From Lipitor) Allergy Intermediate Rash Verified 03/05/25 10:09 Family History Father COPD (chronic obstructive pulmonary disease) CAD (coronary artery disease) Mother Cancer Breast cancer Surgical History History of right hip replacement (12/02/19) history left breast stereotactic biopsy (02/10/18) History of total right knee replacement (TKR) History of total left knee replacement (01/31/09) History of total hysterectomy History of appendectomy Social History Smoking Status: Never smoker second hand exposure: No alcohol intake: never substance use type: does not use caffeine: No what type of physical activity do you participate in: none frequency: does not exercise seatbelt use: always ROS ROS ED Constitutional Constitutional ED: Denies chills or fever(s) Eyes Eyes: Denies change in vision or diplopia ENT ENT ED: Denies rhinorrhea or sore throat Cardiovascular Cardiovascular: Denies chest pain or palpitations Respiratory/Chest Respiratory/Chest: Denies cough or dyspnea Gastrointestinal Gastrointestinal: Denies abdominal pain, diarrhea, nausea or vomiting Genitourinary Genitourinary ED: Denies dysuria or hematuria Musculoskeletal Musculoskeletal: Reports other Details: Left arm swelling ; Denies back pain or neck pain Integumentary Denies abscess or rash Neurologic Neurologic: Denies headache(s), paresthesias or weakness Psychiatric Psychiatric: Denies anxiety or suicidal thoughts EXAM Physical Exam Const Vital Signs: 03/05/25 10:11 03/05/25 10:15 03/05/25 10:33 Temperature 98.4 F 98.4 F Temperature Source Oral Oral Pulse Rate 106 H 113 H Respiratory Rate 24 H 20 H Respiratory Effort Normal Non-Labored Respiratory Pattern Tachypnea Blood Pressure 118/84 H 136/94 H Blood Pressure Mean 95 108 Pulse Ox 95 95 Oxygen Delivery Method Room Air Room Air 03/05/25 11:30 Temperature 98.3 F Temperature Source Oral Pulse Rate 94 Respiratory Rate 22 H Respiratory Effort Respiratory Pattern Blood Pressure 133/72 H Blood Pressure Mean 92 Pulse Ox 93 Oxygen Delivery Method Room Air Positive well nourished, well developed and obese General Appearance ED: well developed and NAD Nutritional Appearance: obese HEENT Reports moist mucous membranes normocephalic and atraumatic Eyes PERRL and EOMs intact bilaterally Neck full ROM and supple Resp normal respiratory effort and clear to auscultation bilaterally Cardio regular rate, regular rhythm and no murmurs GI non-tender and non-distended Auscultation: normoactive bowel sounds Palpation: soft Back/Spine no CVA tenderness General Back: other FROM Extremity normal to inspection Extremity Narrative: Strong 2+/4 left radial pulse despite edema General Extremety ED: Yes edema; Negative for pulses abnormal or tenderness General Extremity: edema left upper extremity severe (All compartments soft nondistended nontender. There is some bruising discoloration to the dorsum of the left hand but it is nontender and she has brisk cap refill all fingers.); Negative for pulses abnormal Neuro oriented x3, CN's II-XII intact bilaterally and no sensory deficits noted Sensorium / Orientation: awake and alert Motor Exam: strength 5/5 throughout Psych mental status grossly normal Skin no rashes or lesions noted and no wounds MDM MDM MDM Narrative Medical decision making narrative: Here in the ER, her vital signs are essentially unremarkable, her heart rate is just over 100 and her respirations are 20. She denies any dyspnea or respiratory distress. She denies any chest discomfort. Given the vital signs that [facility] had earlier, sent her for CTA of the chest, I reviewed the images and report which I agree with, it is basically normal. Is negative for PE and no pneumonia or other infiltrate. Prior to doing this I reviewed her labs from yesterday showing that her renal function was normal. Did not EKG today that shows at the time of it being performed, sinus rhythm with a right bundle branchblock which is stable, and heart rate 95, no injury pattern. I do not think we need to repeat any other labs. She was started on Eliquis as appropriate for the DVT diagnosed in the left upper extremity, stable for discharge back to [facility] facility. History & Record Review Additional record(s) reviewed:: Prior inpatient record and Prior labs Radiography Diagnostic Testing: Clinical Impression(s) from Imaging Studies Chest CTA 03/05/25 11:07 IMPRESSION: No evidence of pulmonary embolism. No pulmonary infiltration or mass lesion is seen. Reading Location: [id number] Rhythm Strip Rhythm Strip: Sinus Rhythm Rate: 95 Ectopy: None EKG Initial EKG: Attestation: I personally reviewed and interpreted this EKG as follows: Interpretation: Sinus Rhythm, No Acute Injury Pattern and RBBB Comments: Other than widened QRS, normal intervals and normal axis borderline rightward Prior EKG tracings: available for review Prior: Unchanged Discharge Plan Triage Chief Complaint: Shortness of Breath ED Provider: Luther Zapata Dx/Rx/DC Orders Clinical Impression: Tachycardia, Acute deep vein thrombosis (DVT) of left upper extremity, Anticoagulated on apixaban Instructions: DVT Tx Prescriptions: No Action Eliquis 5 mg tablet 5 mg PO BID Qty: 180 3RF metoprolol succinate 25 mg tablet extended release 24 hr 25 mg PO DAILY glimepiride 4 mg tablet 4 mg PO BID (DME) Accu-Chek Guide test strips Strip MISCELLANEOUS (DME) blood-glucose meter [Accu-Chek Guide Me Glucose Mtr] Misc MISCELLANEOUS Patient Comments: [NO ORIGINAL SIG] calcium carbonate-vitamin D3 [Calcium 600 + D(3)] 600 mg-5 mcg (200 unit) tablet 1 tab PO BID amiodarone 200 mg Tablet 200 mg PO BID Qty: 0 0RF Rx Instructions: Continue 200 mg twice a day for 7 days, then reduce the dose of Cordarone to 200 mg daily thereafter cephalexin 500 mg Capsule 500 mg PO Q6 Qty: 0 0RF Rx Instructions: Continue cephalexin 500 mg every 6 hours x 1 week and then discontinue insulin lispro [Humalog KwikPen Insulin] 100 unit/mL Insulin Pen See Protocol subcut ACHS Qty: 1 0RF Protocol: 3. Sliding Scale Insulin Med Dosing Condition: 150-189 mg/dl = 1 unit Condition: 190-229 mg/dl = 2 units Condition: 230-269 mg/dl = 3 units Condition: 270-309 mg/dl = 4 units Condition: 310-349 mg/dl = 5 units Condition: 350-399 mg/dl = 6 units Condition: 400-449 mg/dl = 7 units Condition: Greater than 449 call physician Protocol Text: Suggested for: - Patients on Total Daily Insulin Dose of 37-55 units - Obese, infected, or steroid patients MEDIUM DOSING ALGORITHIM pantoprazole 40 mg Tablet,Delayed Release (Dr/Ec) 40 mg PO QHS Qty: 0 0RF nystatin 100,000 unit/gram Powder 1 applic topical BID Qty: 0 0RF Protocol: *Topical Application Instructions APPLICATION INSTRUCTIONS: apply to groin furosemide [Lasix] 40 mg tablet 40 mg PO DAILY Qty: 1 0RF metformin 500 mg tablet 500 mg PO BID Primary Care Provider: Abby Mcclellan Referrals: Abby Mcclellan MD [Primary Care Provider] - Activity Restrictions/Additional Instructions: CTA chest normal no PE continue apixaban for presumed left upper extremity DVT Print Language: [place] Disposition Disposition: Home, Self Care What to do if you have Problems For any increased pain, shortness of breath, bleeding, nausea or vomiting, chestpain, or any unexpected problems, contact your Primary Care Provider. Call [facility] ([phone]) or report to the closest Emergency Room. Call 911 if necessary. 03/05/25 1137 <Electronically signed by Luther Zapata MD> Cosigner Signature (if applicable): CC: Dr. Abby Mcclellan MD ~ Signed [facility] Work Phone: 1(605) 974-688008-08-2025 Discharge summary [facility] Medical Records Department [address] [place] [id number] Emergency Department Summary 03/05/25 MR#: [id number] Acct: [id number] Name: JENNIFER GONZALEZ Rep #:[id number] : 1950 74 From: Luther Zapata MD PCP: Dr. Abby Mcclellan MD Status:RE G ER Location: ED HPI History of Present Illness Chief Complaint: Shortness of Breath Informant: patient, EMS and SNF Narrative Narrative: 74-year-old female sent to the ER today, she just arrived at [facility] yesterday after being discharged from the hospital here where she was treated for bacteremia and septic shock, according to the [facility] facility she has asymmetric swelling in her upper extremities, they did a Doppler of the left upper extremity and is positive for DVT so they started her on Eliquis but this morning she was tachypneic around 40 and tachycardic in the 120 area so they sent her here to be evaluated for pulmonary embolus. The patient does not recall this and states she has no complaints. She denies any dyspnea, chest discomfort, syncope or near syncope. She states her left arm is edematous but it does not hurt and she denies any other complaints right now. [facility] Medical History Paroxysmal atrial fibrillation Intermittent complete heart block Presence of cardiac [...] calcification Diabetes type 2, uncontrolled Morbid obesity Home Medications ?Medication ?Instructions ?Recorded ?Last Taken ?Type metoprolol succinate 25 mg 25 mg PO DAILY bp 06/01/24 Unknown History tablet,extended release 24 hr metformin 500 mg tablet 500 mg PO BID diabetes 06/02 Unknown History apixaban 5 mg tablet (Eliquis) 5 mg PO BID #180 tabs 0 02/08/25 Unknown Rx blood sugar diagnostic (Accu-Chek 02/26/25 Unknown Hi story Guide test strips) blood-glucose meter (Accu-Chek 02/26/25 Unknown Histo ry Guide Me Glucose Meter) calcium 600 mg (as 1 tab PO BID supplement 08/22 Unknown History carbonate)-vitamin D3 5 mcg (200 unit) tablet (Calcium 600 + D(3)) glimepiride 4 mg tablet 4 mg PO BID diabetes 5 Unknown History amiodarone 200 mg tablet 200 mg PO BID #0 tabs Unknown Rx cephalexin 500 mg capsule 500 mg PO Q6 #0 caps 5 Unknown Rx furosemide 40 mg tablet (Lasix) 40 mg PO DAILY #1 TAB 03/03/25 Unknown Rx insulin lispro 100 unit/mL See Protocol subcut ACHS #1 mL 03/03/25 Unknown Rx subcutaneous pen (Humalog KwikPen (U-100) Insulin) nystatin 100,000 unit/gram topical 1 applic topical BI D #0 grams 03/03/25 Unknown Rx powder pantoprazole 40 mg tablet,delayed 40 mg PO QHS #0 tabs 03/03/25 Unknown Rx release Allergy/AdvReac Type Severity Reaction Status Date / Time atorvastatin (From Lipitor) Allergy Intermediate Rash Verified 03/05/25 10:09 Family History Father COPD (chronic obstructive pulmonary disease) CAD (coronary artery disease) Mother Cancer Breast cancer Surgical History History of right hip replacement (12/02/19) history left breast stereotactic biopsy (02/10/18) History of total right knee replacement (TKR) History of total left knee replacement (01/31/09) History of total hysterectomy History of appendectomy Social History Smoking Status: Never smoker second hand exposure: No alcohol intake: never substance use type: does not use caffeine: No what type of physical activity do you participate in: none frequency: does not exercise seatbelt use: always ROS ROS ED Constitutional Constitutional ED: Denies chills or fever(s) Eyes Eyes: Denies change in vision or diplopia ENT ENT ED: Denies rhinorrhea or sore throat Cardiovascular Cardiovascular: Denies chest pain or palpitations Respiratory/Chest Respiratory/Chest: Denies cough or dyspnea Gastrointestinal Gastrointestinal: Denies abdominal pain, diarrhea, nausea or vomiting Genitourinary Genitourinary ED: Denies dysuria or hematuria Musculoskeletal Musculoskeletal: Reports other Details: Left arm swelling ; Denies back pain or neck pain Integumentary Denies abscess or rash Neurologic Neurologic: Denies headache(s), paresthesias or weakness Psychiatric Psychiatric: Denies anxiety or suicidal thoughts EXAM Physical Exam Const Vital Signs: 03/05/25 10:11 03/05/25 10:15 03/05/25 10:33 Temperature 98.4 F 98.4 F Temperature Source Oral Oral Pulse Rate 106 H 113 H Respiratory Rate 24 H 20 H Respiratory Effort Normal Non-Labored Respiratory Pattern Tachypnea Blood Pressure 118/84 H 136/94 H Blood Pressure Mean 95 108 Pulse Ox 95 95 Oxygen Delivery Method Room Air Room Air 03/05/25 11:30 Temperature 98.3 F Temperature Source Oral Pulse Rate 94 Respiratory Rate 22 H Respiratory Effort Respiratory Pattern Blood Pressure 133/72 H Blood Pressure Mean 92 Pulse Ox 93 Oxygen Delivery Method Room Air Positive well nourished, well developed and obese General Appearance ED: well developed and NAD Nutritional Appearance: obese HEENT Reports moist mucous membranes normocephalic and atraumatic Eyes PERRL and EOMs intact bilaterally Neck full ROM and supple Resp normal respiratory effort and clear to auscultation bilaterally Cardio regular rate, regular rhythm and no murmurs GI non-tender and non-distended Auscultation: normoactive bowel sounds Palpation: soft Back/Spine no CVA tenderness General Back: other FROM Extremity normal to inspection Extremity Narrative: Strong 2+/4 left radial pulse despite edema General Extremety ED: Yes edema; Negative for pulses abnormal or tenderness General Extremity: edema left upper extremity severe (All compartments soft nondistended nontender.There is some bruising discoloration to the dorsum of the left hand but it is nontender and she hasbrisk cap refill all fingers.); Negative for pulses abnormal Neuro oriented x3, CN's II-XII intact bilaterally and no sensory deficits noted Sensorium / Orientation: awake and alert Motor Exam: strength 5/5 throughout Psych mental status grossly normal Skin no rashes or lesions noted and no wounds MDM MDM MDM Narrative Medical decision making narrative: Here in the ER, her vital signs are essentially unremarkable, her heart rate is just over 100 and her respirations are 20. She denies any dyspnea or respiratory distress. She denies any chest discomfort. Given the vital signs that [facility] had earlier, sent her for CTA of the chest, I reviewed the images and report which I agree with, it is basically normal. Is negative for PE and no pneumonia or other infiltrate. Prior to doing this I reviewed her labs from yesterday showing that her renal functionwas normal. Did not EKG today that shows at the time of it being performed, sinus rhythm with a right bundle branchblock which is stable, and heart rate 95, no injury pattern. I do not think we need to repeat any other labs. She was started on Eliquis as appropriate for the DVT diagnosed in the left upper extremity, stable for discharge back to [facility]. History & Record Review Additional record(s) reviewed:: Prior inpatient record and Prior labs Radiography Diagnostic Testing: Clinical Impression(s) from Imaging Studies Chest CTA 03/05/25 11:07 IMPRESSION: No evidence of pulmonary embolism. No pulmonary infiltration or mass lesion is seen. Reading Location: [id number] Rhythm Strip Rhythm Strip: Sinus Rhythm Rate: 95 Ectopy: None EKG Initial EKG: Attestation: I personally reviewed and interpreted this EKG as follows: Interpretation: Sinus Rhythm, No Acute Injury Pattern and RBBB Comments: Other than widened QRS, normal intervals and normal axis borderline rightward Prior EKG tracings: available for review Prior: Unchanged Discharge Plan Triage Chief Complaint: Shortness of Breath ED Provider: Luther Zapata Dx/Rx/DC Orders Clinical Impression: Tachycardia, Acute deep vein thrombosis (DVT) of left upper extremity, Anticoagulated on apixaban Instructions: DVT Tx Prescriptions: No Action Eliquis 5 mg tablet 5 mg PO BID Qty: 180 3RF metoprolol succinate 25 mg tablet extended release 24 hr 25 mg PO DAILY glimepiride 4 mg tablet 4 mg PO BID (DME) Accu-Chek Guide test strips Strip MISCELLANEOUS (DME) blood-glucose meter [Accu-Chek Guide Me Glucose Mtr] Misc MISCELLANEOUS Patient Comments: [NO ORIGINAL SIG] calcium carbonate-vitamin D3 [Calcium 600 + D(3)] 600 mg-5 mcg (200 unit) tablet 1 tab PO BID amiodarone 200 mg Tablet 200 mg PO BID Qty: 0 0RF Rx Instructions: Continue 200 mg twice a day for 7 days, then reduce the dose of Cordarone to 200 mg daily thereafter cephalexin 500 mg Capsule 500 mg PO Q6 Qty: 0 0RF Rx Instructions: Continue cephalexin 500 mg every 6 hours x 1 week and then discontinue insulin lispro [Humalog KwikPen Insulin] 100 unit/mL Insulin Pen See Protocol subcut ACHS Qty: 1 0RF Protocol: 3. Sliding Scale Insulin Med Dosing Condition: 150-189 mg/dl = 1 unit Condition: 190-229 mg/dl = 2 units Condition: 230-269 mg/dl = 3 units Condition: 270-309 mg/dl = 4 units Condition: 310-349 mg/dl = 5 units Condition: 350-399 mg/dl = 6 units Condition: 400-449 mg/dl = 7 units Condition: Greater than 449 call physician Protocol Text: Suggested for: - Patients on Total Daily Insulin Dose of 37-55 units - Obese, infected, or steroid patients MEDIUM DOSING ALGORITHIM pantoprazole 40 mg Tablet,Delayed Release (Dr/Ec) 40 mg PO QHS Qty: 0 0RF nystatin 100,000 unit/gram Powder 1 applic topical BID Qty: 0 0RF Protocol: *Topical Application Instructions APPLICATION INSTRUCTIONS: apply to groin furosemide [Lasix] 40 mg tablet 40 mg PO DAILY Qty: 1 0RF metformin 500 mg tablet 500 mg PO BID Primary Care Provider: Abby Mcclellan Referrals: Abby Mcclellan MD [Primary Care Provider] - Activity Restrictions/Additional Instructions: CTA chest normal no PE continue apixaban for presumed left upper extremity DVT Print Language: [place] Disposition Disposition: Home, Self Care What to do if you have Problems For any increased pain, shortness of breath, bleeding, nausea or vomiting, chestpain, or any unexpected problems, contact your Primary Care Provider. Call [facility] ([phone]) or report tothe closest Emergency Room. Call 911 if necessary. 03/05/25 1137 Cosigner Signature (if applicable): CC: Dr. Abby Mcclellan MD ~ Signed [facility]08-08-2025 Radiology Diagnostic study note [facility] Imaging Services [address] [place] [address] [id number] CTA Chest W/WO Contrast MR#: [id number] Acct: [id number] Name: JENNIFER GONZALEZ Rep #: [id number] : 1950 F 74 From: Jean Marie Malhotra MD PCP: Dr. Abby Mcclellan MD Status: RE G ER Study:CTA Chest W/WO Contrast Date of Exam: 03/05/25 Exam# [id number] Ordering Dr: Iron Zapata MD PROCEDURE: CTA CHEST W/WO CONTRAST 03/05/2025 REASON FOR EXAM: TACHYCARDIC, DVT TECHNIQUE: CTA CHEST W/WO CONTRAST Multiplanar Sagittal and Coronal images were obtained. 3D post processing was performed CONTRAST: Isovue 370 VOLUME: 95 mL One or more dose reduction techniques were used (e.g., Automated exposure control, adjustment of the mA and/or kV according to patient size, use of iterative reconstruction technique). RADIATION DOSE SUMMARY: CTDlvol: 13.3 mGy DLP: 429.69 mGycm COMPARISON: Prior chest radiograph dated February 28, 2025. FINDINGS: Hardware: A dual-chamber pacemaker is seen. Lymph nodes: Calcified right hilar lymph nodes. Heart: The heart is not enlarged. Coronary artery calcification. Prior aortic valve replacement. Thoracic Aorta: No thoracic aortic aneurysm or dissection. Atherosclerotic plaque formation of the thoracic aorta and aortic arch. Pulmonary Vessels: No evidence of pulmonary embolism. Lungs and Airways: Mild degree of scarring at the lung bases. No evidence of infiltration or mass lesion. Pleura: No pleural effusion. Upper Abdomen: Unremarkable Bones: Bone windows are unremarkable. CT/CTA Chest W/WO Contrast IMPRESSION: No evidence of pulmonary embolism. No pulmonary infiltration or mass lesion is seen. Reading Location: [id number] CC: Dr. Luther Zapata MD; Dr. Abby Mcclellan MD ~ Hand I Thermal Cutter: Signed [facility]08-07-2025 Discharge summary [facility] Medical Records Department [address] [place] [address] Transfer to [facility] MR#: [id number] Acct: [id number] Name: JENNIFER GONZALEZ Rep #:[id number] : 1950 74 From: Alen Borjas DO PCP: Dr. Abby Mcclellan MD Status:AD M IN Certification of patient admission REQUIRED AT TIME OF ADMISSION. I CERTIFY THAT POST-HOSPITAL F SERVICES ARE REQUIRED TO BE GIVEN ON AN IN-PATIENT BASIS BECAUSE OF THE ABOVE NAMED PATIENT'S NEED FOR JAIL CARE ON A CONTINUING BASIS FOR THE CONDITION(S) FOR WHICH HE/SHE WAS RECEIVING IN-PATIENT HOSPITAL SERVICES PRIOR TO HIS/HER TRANSFER TO THE [facility]. 03/03/25 1531 Diet Diet Order/Speech Therapy: INPATIENT Hospital Diet / Speech Therapy Order(s) 03/01/25 10:07 Diet: Cardiac - Heart Healthy Food consistency:: Regular Liquid Consistency:: Regular/Thin Dietary Modifications:: Consistent Carbohydrate Routine Orders/Code Status Code Status: Full Code DC O2, CPAP, BIPAP needs Home O2 Discharge instructions: No Therapies Weight Bearing: Full weight bearing Physical Therapy: Eval and Treat Occupational Therapy: Eval and Treat Problem/Diagnosis (1) Septic shock: Status: Acute Code(s): A41.9 - Sepsis, unspecified organism; R65.21 - Severe sepsis with septic shock Plan 1. Septic shock secondary to strep agalactiae-again patient was transitioned over to Keflex, her ALEKSANDAR was unremarkable for vegetation. #2 metabolic encephalopathy-cleared at this time, secondary to septic shock #3 class III obesity-complicates care, management, recovery, and prognosis #4 type 2 diabetes-blood sugars will continue to be monitored, sliding scale insulin will be administered as needed #5 generalized debility-patient will be seen by PT and OT #6 paroxysmal atrial fibrillation-patient is currently off Eliquis, she will resume this medicationafter she is discharged from the hospital. Total clinical time spent by myself addressing the patient's medical issues, reviewing all of her data, and collaborating with the patient's care team: 35 minutes Allergies/Procedures Done in Hospital Allergies atorvastatin (From Lipitor) Allergy (Intermediate, Verified 02/08/25 10:33) Rash Procedures: Transesophageal Echo and Transthoracic Echo Type of Care/Length of Stay Estimated LOS: Convalescent Care Less Than 30 days Type of Care Needed: Skilled Rehab Potential: Good Prognosis: Good Additional Orders/Day of Discharge H&P will serve as current which was dated: 02/26/25 Day of Discharge: 03/03/25 Dietary and Speech Recommendations Dietitian Recommendations/Changes: Adjust to cardiac, consistent carbohydrate diet. Will monitor weight trends. Discharge Plan Admission Admit Date/Time: 02/26/25 00:39 Primary Reason for Your Visit: Septic shock Attending Provider: Alen Borjas Primary Care Provider: Abby Mcclellan Consulting Providers: Doug Argueta; Jesus Alberto Lopez; Candis Willson Discharge Orders/Prescriptions Prescriptions: New amiodarone 200 mg Tablet 200 mg PO BID Qty: 0 0RF Rx Instructions: Continue 200 mg twice a day for 7 days, then reduce the dose of Cordarone to 200 mg daily thereafter cephalexin 500 mg Capsule 500 mg PO Q6 Qty: 0 0RF Rx Instructions: Continue cephalexin 500 mg every 6 hours x 1 week and then discontinue insulin lispro [Humalog KwikPen Insulin] 100 unit/mL Insulin Pen See Protocol subcut ACHS Qty: 1 0RF Protocol: 3. Sliding Scale Insulin Med Dosing Condition: 150-189 mg/dl = 1 unit Condition: 190-229 mg/dl = 2 units Condition: 230-269 mg/dl = 3 units Condition: 270-309 mg/dl = 4 units Condition: 310-349 mg/dl = 5 units Condition: 350-399 mg/dl = 6 units Condition: 400-449 mg/dl = 7 units Condition: Greater than 449 call physician Protocol Text: Suggested for: - Patients on Total Daily Insulin Dose of 37-55 units - Obese, infected, or steroid patients MEDIUM DOSING ALGORITHIM pantoprazole 40 mg Tablet,Delayed Release (Dr/Ec) 40 mg PO QHS Qty: 0 0RF nystatin 100,000 unit/gram Powder 1 applic topical BID Qty: 0 0RF Protocol: *Topical Application Instructions APPLICATION INSTRUCTIONS: apply to groin furosemide [Lasix] 40 mg tablet 40 mg PO DAILY Qty: 1 0RF Continued Eliquis 5 mg tablet 5 mg PO BID Qty: 180 3RF metoprolol succinate 25 mg tablet extended release 24 hr 25 mg PO DAILY glimepiride 4 mg tablet 4 mg PO BID (DME) Accu-Chek Guide test strips Strip MISCELLANEOUS (DME) blood-glucose meter [Accu-Chek Guide Me Glucose Mtr] Misc MISCELLANEOUS Patient Comments: [NO ORIGINAL SIG] calcium carbonate-vitamin D3 [Calcium 600 + D(3)] 600 mg-5 mcg (200 unit) tablet 1 tab PO BID metformin 500 mg tablet 500 mg PO BID Discontinued glucosamine sulfate [Glucosamine] 500 mg tablet 1,000 mg PO DAILY Rx Instructions: administer with meals Ozempic 0.25 mg or 0.5 mg (2 mg/3 mL) pen injector 0.5 mg SUBCUT QWEEK Patient Comments: [NO ORIGINAL SIG] [place] 3 Fish OiL capsule PO BID Patient Comments: 2 capsules two times a day Referrals / Follow Up: Abby Mcclellan MD [Primary Care Provider] - Jacinda Dexter NP, EFFICIENCY CLERK-C [Non-Staff -Ordering Privileges] - See Referral Note (In 3 weeks-call officefor appointment) Disposition Disposition (needs filled in before D/C Order can be placed): Long Term Facility 03/03/25 1531 Cosigner Signature (if applicable): CC: Dr. Doug Argueta DO; Dr. Abby Mcclellan MD; Dr. Candis Willson MD; Dr. Jesus Alberto Lopez MD ~ ADDENDUM by Dr. Alen Borjas DO on 03/04/25 at 1024 Addendum Discharge date is 03/04/25 03/04/25 1024 cc: Dr. Doug Argueta DO; Dr. Abby Mcclellan MD; Dr. Candis Willson MD; Dr. Jesus Alberto Lopez MD ~* Signed [facility]08-06-2025 Progress note Author Alen Borjas [facility] Note Date/Time March 03, 2025 3:3 3pm [facility] Medical Records Department [address] [place] [address] Progress Note - Hospitalist 03/02/25 1621 MR#: [id number] Acct: [id number] Name: JENNIFER GONZALEZ Rep #:[id number] : 1950 74 From: Alen Borjas DO PCP: Dr. Abby Mcclellan MD Status:AD M IN Location: [place] [address] Reason for Visit Chief Complaint: Fever and Confusion. Subjective Subjective Patient was seen and examined today, she is on room air but has audible expiratory wheezing. Patient also appears to have generalized edema, I have elected to place her on IV Lasix starting today. Patient did not do well with physical therapy and we are currently awaiting approval for her to go to a [facility] facility for short-term skilled services. Objective Data Objective Data Vital Signs: Vital Signs Temp Pulse Resp BP Pulse Ox O2 Del Method O2 Flow Rate 98.5 F 94 14 125/64 H 95 Room Air 2 03/02/25 15:20 03/02/25 15:20 03/02/25 15:20 03/02/25 15:20 03/02/25 15:20 03/02/25 15:20 03/01/25 15:23 Oxygen Flow Rate (L/min) 2 Oxygen Delivery Method Room Air Weight: 114 kg Body Mass Index (BMI) 49.3 Intake & Output: Intake and Output for Last 24 Hours 02/28/25 03/01/25 03/02/25 23:59 23:59 23:59 Intake Total 1875.00 / 1875.00 120 / 120 100 / 100 Output Total 925 / 1275 1000 / 1000 1000 / 1000 Balance 950.00 / 600.00 -880 / -880 -900 / -900 Lab / Micro Data 03/03/25 05:38 03/03/25 05:38 Labs: Laboratory Results - last 24 hr 03/01/25 16:50: POC Glucose 244 H 03/01/25 21:39: POC Glucose 284 H 03/02/25 06:44: WBC 7.9, RBC 4.12 L, Hgb 12.5, Hct 38.2, MCV 92.7, MCH 30.3, MCHC 32.7, RDW Std Deviation 46.8 H, RDW Coeff of Yovany 13.7, Plt Count 98 L, MPV 11.7, Immature Gran % (Auto) 1.100 H, Neut % (Auto) 58.2, Lymph % (Auto) 23.7, Parker % (Auto) 13.4 H, Eos % (Auto) 2.8, Baso % (Auto) 0.8, Absolute Neuts (auto) 4.6, Absolute Lymphs (auto) 1.88, Nucleated RBC % 0, Platelet Estimate MOD DEC, Sodium 139, Potassium 3.7, Chloride 107, Carbon Dioxide 20.3 L, Anion Gap 11, BUN 14, Creatinine 0.65 L, Estim Creat Clear Calc 68.85, Est GFR (MDRD) Non-Af 91, BUN/Creatinine Ratio 21.7 H, Glucose 215 H, Calcium 8.6 03/02/25 07:07: POC Glucose 207 H 03/02/25 11:40: POC Glucose 243 H Micro: Microbiology 02/28/25 13:40 Blood Culture (Wb) - Right Wrist Blood Culture - Preliminary No growth in 48 hours. 02/26/25 18:05 Blood Culture (Wb) - Pic Blood Culture - Final Streptococcus agalactiae (B) 02/25/25 21:10 Urine, Clean Catch Urine Culture - Final Mixed Gram Positive Organisms Streptococcus agalactiae (B) Gram negative ashley 02/25/25 20:30 Blood Culture (Wb) - Venous Blood Culture - Final Streptococcus agalactiae (B) 02/25/25 21:25 Blood Culture (Wb) - Left Hand Bacteria Detection (PCR) - Final Streptococcus agalactiae (B) 02/25/25 21:25 Blood Culture (Wb) - Left Hand Blood Culture - Final Streptococcus agalactiae (B) 02/25/25 22:30 Mucosa - Nose Respiratory Panel (PCR) - Final 02/25/25 21:11 Mucosa - Nose SARS-CoV-2, Influenza & RSV (PCR) - Final Physical Exam Narrative alert, oriented x3 and no apparent distress Constitutional Narrative: Patient has class III obesity General Appearance: cooperative, well kempt and well developed Orientation / Consciousness: awake, oriented to person and oriented to place HEENT normocephalic, head/scalp atraumatic and moist oral mucous membranes Eyes PERRL, EOMs intact bilaterally and conjunctivae normal Neck supple, no JVD, thyroid normal and no carotid bruits General: trachea midline Resp normal respiratory effort Auscultation: Negative for rales, rhonchi, scattered expiratory wheezes are noted anteriorly Cardio regular rate, regular rhythm, S1 normal heart sound, S2 normal heart sound, no murmurs, no rub and no gallops GI normal to inspection, nondistended, normoactive bowel sounds, soft to palpation,non-tender and non-distended Extremity Patient has generalized edema in her arms and in particular of the left hand Skin no rashes or lesions noted General Skin Exam: no breakdown Neuro CN's II-XII intact bilaterally, no focal motor deficits and no sensory deficits noted Sensorium / Orientation: awake, alert, oriented to person and oriented to place Speech: speech normal Psych affect normal Assessment & Plan Assessment/Plan (1) Streptococcal bacteremia: (2) Septic shock: PLAN: Plan 1. Septic shock secondary to strep agalactiae-again patient was transitioned over to Keflex, her ALEKSANDAR was unremarkable for vegetation. #2 metabolic encephalopathy-cleared at this time, secondary to septic shock #3 class III obesity-complicates care, management, recovery, and prognosis #4 type 2 diabetes-blood sugars will continue to be monitored, sliding scale insulin will be administered as needed #5 generalized debility-patient will be seen by PT and OT #6 paroxysmal atrial fibrillation-patient is currently off Eliquis, she will resume this medication after she is discharged from the hospital. #7 generalized edema-less likely from fluid administration during this hospital admission, I have decided to place the patient on IV Lasix Total clinical time spent by myself addressing the patient's medical issues, reviewing all of her data, and collaborating with the patient's care team: 35 minutes Charges/Coding Visit Charges Inpatient E&M: 76223 Subs Hosp L2 03/03/25 1533 <Electronically signed by Alen Borjas DO> Cosigner Signature (if applicable): CC: ~ Signed [facility] Work Phone: 1(622) 419-200108-06-2025 Progress note [facility] Medical Records Department [address] [place] [address] Progress Note - Hospitalist 03/02/25 1621 MR#: [id number] Acct: [id number] Name: JENNIFER GONZALEZ Rep #:[id number] : 1950 74 From: Alen Borjas DO PCP: Dr. Abby Mcclellan MD Status:AD M IN Location: [place] [address] Reason for Visit Chief Complaint: Fever and Confusion. Subjective Subjective Patient was seen and examined today, she is on room air but has audible expiratory wheezing. Patient also appears to have generalized edema, I have elected to place her on IV Lasix starting today. Patient did not do well with physical therapy and we are currently awaiting approval for her to go to a [facility] facility for short-term skilled services. Objective Data Objective Data Vital Signs: Vital Signs Temp Pulse Resp BP Pulse Ox O2 Del Method O2 Flow Rate 98.5 F 94 14 125/64 H 95 Room Air 2 03/02/25 15:20 03/02/25 15:20 03/02/25 15:20 03/02/25 15:20 03/02/25 15:20 03/02/25 15:20 03/01/25 15:23 Oxygen Flow Rate (L/min) 2 Oxygen Delivery Method Room Air Weight: 114 kg Body Mass Index (BMI) 49.3 Intake & Output: Intake and Output for Last 24 Hours 02/28/25 03/01/25 03/02/25 23:59 23:59 23:59 Intake Total 1875.00 / 1875.00 120 / 120 100 / 100 Output Total 925 / 1275 1000 / 1000 1000 / 1000 Balance 950.00 / 600.00 -880 / -880 -900 / -900 Lab / Micro Data 03/03/25 05:38 03/03/25 05:38 Labs: Laboratory Results - last 24 hr 03/01/25 16:50: POC Glucose 244 H 03/01/25 21:39: POC Glucose 284 H 03/02/25 06:44: WBC 7.9, RBC 4.12 L, Hgb 12.5, Hct 38.2, MCV 92.7, MCH 30.3, MCHC 32.7, RDW Std Deviation 46.8 H, RDW Coeff of Yovany 13.7, Plt Count 98 L, MPV 11.7, Immature Gran % (Auto) 1.100 H, Neut% (Auto) 58.2, Lymph % (Auto) 23.7, Parker % (Auto) 13.4 H, Eos % (Auto) 2.8, Baso % (Auto) 0.8, Absolute Neuts (auto) 4.6, Absolute Lymphs (auto) 1.88, Nucleated RBC % 0, Platelet Estimate MOD DEC, Sodium 139, Potassium 3.7, Chloride 107, Carbon Dioxide 20.3 L, Anion Gap 11, BUN 14, Creatinine 0.65 L, Estim Creat Clear Calc 68.85, Est GFR (MDRD) Non-Af 91, BUN/Creatinine Ratio 21.7 H, Glucose 215 H, Calcium 8.6 03/02/25 07:07: POC Glucose 207 H 03/02/25 11:40: POC Glucose 243 H Micro: Microbiology 02/28/25 13:40 Blood Culture (Wb) - Right Wrist Blood Culture - Preliminary No growth in 48 hours. 02/26/25 18:05 Blood Culture (Wb) - Pic Blood Culture - Final Streptococcus agalactiae (B) 02/25/25 21:10 Urine, Clean Catch Urine Culture - Final Mixed Gram Positive Organisms Streptococcus agalactiae (B) Gram negative ashley 02/25/25 20:30 Blood Culture (Wb) - Venous Blood Culture - Final Streptococcus agalactiae (B) 02/25/25 21:25 Blood Culture (Wb) - Left Hand Bacteria Detection (PCR) - Final Streptococcus agalactiae (B) 02/25/25 21:25 Blood Culture (Wb) - Left Hand Blood Culture - Final Streptococcus agalactiae (B) 02/25/25 22:30 Mucosa - Nose Respiratory Panel (PCR) - Final 02/25/25 21:11 Mucosa - Nose SARS-CoV-2, Influenza & RSV (PCR) - Final Physical Exam Narrative alert, oriented x3 and no apparent distress Constitutional Narrative: Patient has class III obesity General Appearance: cooperative, well kempt and well developed Orientation / Consciousness: awake, oriented to person and oriented to place HEENT normocephalic, head/scalp atraumatic and moist oral mucous membranes Eyes PERRL, EOMs intact bilaterally and conjunctivae normal Neck supple, no JVD, thyroid normal and no carotid bruits General: trachea midline Resp normal respiratory effort Auscultation: Negative for rales, rhonchi, scattered expiratory wheezes are noted anteriorly Cardio regular rate, regular rhythm, S1 normal heart sound, S2 normal heart sound, no murmurs, no rub and no gallops GI normal to inspection, nondistended, normoactive bowel sounds, soft to palpation,non-tender and non-distended Extremity Patient has generalized edema in her arms and in particular of the left hand Skin no rashes or lesions noted General Skin Exam: no breakdown Neuro CN's II-XII intact bilaterally, no focal motor deficits and no sensory deficits noted Sensorium / Orientation: awake, alert, oriented to person and oriented to place Speech: speech normal Psych affect normal Assessment & Plan Assessment/Plan (1) Streptococcal bacteremia: (2) Septic shock: PLAN: Plan 1. Septic shock secondary to strep agalactiae-again patient was transitioned over to Keflex, her ALEKSANDAR was unremarkable for vegetation. #2 metabolic encephalopathy-cleared at this time, secondary to septic shock #3 class III obesity-complicates care, management, recovery, and prognosis #4 type 2 diabetes-blood sugars will continue to be monitored, sliding scale insulin will be administered as needed #5 generalized debility-patient will be seen by PT and OT #6 paroxysmal atrial fibrillation-patient is currently off Eliquis, she will resume this medicationafter she is discharged from the hospital. #7 generalized edema-less likely from fluid administration during this hospital admission, I have decided to place the patient on IV Lasix Total clinical time spent by myself addressing the patient's medical issues, reviewing all of her data, and collaborating with the patient's care team: 35 minutes Charges/Coding Visit Charges Inpatient E&M: 47943 Subs Hosp L2 03/03/25 1533 Cosigner Signature (if applicable): CC: ~ Signed [facility]08-06-2025 [facility]08-06-2025 Hospital Discharge instructionsAdditional Instructions Date of Discharge: 03/03/25[facility] Work Phone: 1(935) 770-843708-04-2025 Progress note Author Alen Borjas [facility] Note Date/Time March 01, 2025 7:3 3pm [facility] Medical Records Department [address] [place] [address] Progress Note - Hospitalist 03/01/251926 MR#: [id number] Acct: [id number] Name: JENNIFER GONZALEZ Rep #:[id number] : 1950 74 From: Alen Borjas DO PCP: Dr. Abby Mcclellan MD Status:AD M IN Location: [place] [address] Reason for Visit Chief Complaint: Fever and Confusion. Subjective Subjective Patient was seen and examined today, she is currently on 2 L of oxygen, I talkedwith infectious diseases today and transition the patient over to oral Keflex and stopped her IV antibiotics. Patient will be seen by PT and OT and reevaluated tomorrow for possible discharge. Patient's ALEKSANDAR today was unremarkable. Objective Data Objective Data Vital Signs: Vital Signs Temp Pulse Resp BP Pulse Ox O2 Del Method O2 Flow Rate 98.5 F 93 20 H 118/45 L 95 Nasal Cannula 2 03/01/25 15:23 03/01/25 15:23 03/01/25 15:23 03/01/25 15:23 03/01/25 15:23 03/01/25 15:23 03/01/25 15:23 Oxygen Flow Rate (L/min) 2 Oxygen Delivery Method Nasal Cannula Weight: 114.2 kg Body Mass Index (BMI) 49.4 Intake & Output: Intake and Output for Last 24 Hours 02/27/25 02/28/25 03/01/25 23:59 23:59 23:59 Intake Total 2121.98 / 2121.98 1875.00 / 1875.00 120 / 120 Output Total 1430 / 1430 925 / 1275 1000 / 1000 Balance 691.98 / 691.98 950.00 / 600.00 -880 / -880 Lab / Micro Data 03/01/25 05:37 03/01/25 05:37 Labs: Laboratory Results - last 24 hr 02/28/25 22:56: POC Glucose 236 H 03/01/25 05:37: WBC 8.7, RBC 3.93 L, Hgb 12.2, Hct 35.9 L, MCV 91.3, MCH 31.0, MCHC 34.0, RDW Std Deviation 45.7 H, RDW Coeff of Yovany 13.4, Plt Count 76 L, MPV 12.2 H, Immature Gran % (Auto) 0.700, Neut % (Auto) 70.6 H, Lymph % (Auto) 16.8 L, Parker % (Auto) 10.6 H, Eos % (Auto) 0.6, Baso % (Auto) 0.7, Absolute Neuts (auto) 6.2, Absolute Lymphs (auto) 1.46, Nucleated RBC % 0, Sodium 137, Potassium 3.6, Chloride 108, Carbon Dioxide 15.3 L, Anion Gap 14, BUN 14, Creatinine 0.69 L, Estim Creat Clear Calc 68.93, Est GFR (MDRD) Non-Af 90, BUN/Creatinine Ratio 20.6 H, Glucose 212 H, Calcium 8.5 03/01/25 06:55: POC Glucose 225 H 03/01/25 11:18: POC Glucose 180 H Micro: Microbiology 02/26/25 18:05 Blood Culture (Wb) - Pic Blood Culture - Final Streptococcus agalactiae (B) 02/25/25 21:10 Urine, Clean Catch Urine Culture - Final Mixed Gram Positive Organisms Streptococcus agalactiae (B) Gram negative ashley 02/25/25 20:30 Blood Culture (Wb) - Venous Blood Culture - Final Streptococcus agalactiae (B) 02/25/25 21:25 Blood Culture (Wb) - Left Hand Bacteria Detection (PCR) - Final Streptococcus agalactiae (B) 02/25/25 21:25 Blood Culture (Wb) - Left Hand Blood Culture - Final Streptococcus agalactiae (B) 02/25/25 22:30 Mucosa - Nose Respiratory Panel (PCR) - Final 02/25/25 21:11 Mucosa - Nose SARS-CoV-2, Influenza & RSV (PCR) - Final Radiography Diagnostic Testing: Radiology Impression Transesophageal Echocardiogram 03/01/25 08:00 Interpretation Summary Normal LV size. Left ventricular systolic function is normal. The left ventricular ejection fraction is 60 %. Bubble contrast study is negative for PFO/ASD. Mild focal mitral valve calcification, bileaflet. Bioprosthetic aortic valve functioning normally. No evidence of vegetation noted to suggest endocarditis. Ordering Physician: Jesus Alberto Lopez Referring Physician: Abby Mcclellan M.D. Performed By: Juliane Silva RDCS Physical Exam Const alert, oriented x3 and no apparent distress Constitutional Narrative: Patient has class III obesity General Appearance: cooperative, well kempt and well developed Orientation / Consciousness: awake, oriented to person and oriented to place HEENT normocephalic, head/scalp atraumatic and moist oral mucous membranes Eyes PERRL, EOMs intact bilaterally and conjunctivae normal Neck supple, no JVD, thyroid normal and no carotid bruits General: trachea midline Resp normal respiratory effort and clear to auscultation bilaterally Auscultation: Negative for rales, rhonchi or wheezes Cardio regular rate, regular rhythm, S1 normal heart sound, S2 normal heart sound, no murmurs, no rub and no gallops GI normal to inspection, nondistended, normoactive bowel sounds, soft to palpation,non-tender and non-distended Extremity no clubbing, cyanosis or edema Skin no rashes or lesions noted General Skin Exam: no breakdown Neuro CN's II-XII intact bilaterally, no focal motor deficits and no sensory deficits noted Sensorium / Orientation: awake, alert, oriented to person and oriented to place Speech: speech normal Psych affect normal Assessment & Plan Assessment/Plan (1) Septic shock: PLAN: Plan 1. Septic shock secondary to strep agalactiae-again patient was transitioned over to Keflex, her ALEKSANDAR was unremarkable for vegetation. #2 metabolic encephalopathy-cleared at this time, secondary to septic shock #3 class III obesity-complicates care, management, recovery, and prognosis #4 type 2 diabetes-blood sugars will continue to be monitored, sliding scale insulin will be administered as needed #5 generalized debility-patient will be seen by PT and OT #6 paroxysmal atrial fibrillation-patient is currently off Eliquis, she will resume this medication after she is discharged from the hospital. Total clinical time spent by myself addressing the patient's medical issues, reviewing all of her data, and collaborating with the patient's care team: 35 minutes Charges/Coding Visit Charges Inpatient E&M: 75634 Subs Hosp L2 03/01/251932 <Electronically signed by Alen Borjas DO> Cosigner Signature (if applicable): CC: ~ Signed [facility] Work Phone: 1(140) 597-916108-04-2025 Progress note [facility] Medical Records Department [address] [place] [address] Progress Note - Hospitalist 03/01/251926 MR#: [id number] Acct: [id number] Name: JENNIFER GONZALEZ Rep #:[id number] : 1950 74 From: Alen Borjas DO PCP: Dr. Abby Mcclellan MD Status:AD M IN Location: [place] [address] Reason for Visit Chief Complaint: Fever and Confusion. Subjective Subjective Patient was seen and examined today, she is currently on 2 L of oxygen, I talkedwith infectious diseases today and transition the patient over to oral Keflex and stopped her IV antibiotics. Patient will be seen by PT and OT and reevaluated tomorrow for possible discharge. Patient's ALEKSANDAR today was unr emarkable. Objective Data Objective Data Vital Signs: Vital Signs Temp Pulse Resp BP Pulse Ox O2 Del Method O2 Flow Rate 98.5 F 93 20 H 118/45 L 95 Nasal Cannula 2 03/01/25 15:23 03/01/25 15:23 03/01/25 15:23 03/01/25 15:23 03/01/25 15:23 03/01/25 15:23 03/01/25 15:23 Oxygen Flow Rate (L/min) 2 Oxygen Delivery Method Nasal Cannula Weight: 114.2 kg Body Mass Index (BMI) 49.4 Intake & Output: Intake and Output for Last 24 Hours 02/27/25 02/28/25 03/01/25 23:59 23:59 23:59 Intake Total 2121.98 / 2121.98 1875.00 / 1875.00 120 / 120 Output Total 1430 / 1430 925 / 1275 1000 / 1000 Balance 691.98 / 691.98 950.00 / 600.00 -880 / -880 Lab / Micro Data 03/01/25 05:37 03/01/25 05:37 Labs: Laboratory Results - last 24 hr 02/28/25 22:56: POC Glucose 236 H 03/01/25 05:37: WBC 8.7, RBC 3.93 L, Hgb 12.2, Hct 35.9 L, MCV 91.3, MCH 31.0, MCHC 34.0, RDW Std Deviation 45.7 H, RDW Coeff of Yovany 13.4, Plt Count 76 L, MPV 12.2 H, Immature Gran % (Auto) 0.700, Neut % (Auto) 70.6 H, Lymph % (Auto) 16.8 L, Parker % (Auto) 10.6 H, Eos % (Auto) 0.6, Baso % (Auto) 0.7, Absolute Neuts (auto) 6.2, Absolute Lymphs (auto) 1.46, Nucleated RBC % 0, Sodium 137, Potassium 3.6, Chloride 108, Carbon Dioxide 15.3 L, Anion Gap 14, BUN 14, Creatinine 0.69 L, Estim Creat Clear Calc 68.93, Est GFR (MDRD) Non-Af 90, BUN/Creatinine Ratio 20.6 H, Glucose 212 H, Calcium 8.5 03/01/25 06:55: POC Glucose 225 H 03/01/25 11:18: POC Glucose 180 H Micro: Microbiology 02/26/25 18:05 Blood Culture (Wb) - Pic Blood Culture - Final Streptococcus agalactiae (B) 02/25/25 21:10 Urine, Clean Catch Urine Culture - Final Mixed Gram Positive Organisms Streptococcus agalactiae (B) Gram negative ashley 02/25/25 20:30 Blood Culture (Wb) - Venous Blood Culture - Final Streptococcus agalactiae (B) 02/25/25 21:25 Blood Culture (Wb) - Left Hand Bacteria Detection (PCR) - Final Streptococcus agalactiae (B) 02/25/25 21:25 Blood Culture (Wb) - Left Hand Blood Culture - Final Streptococcus agalactiae (B) 02/25/25 22:30 Mucosa - Nose Respiratory Panel (PCR) - Final 02/25/25 21:11 Mucosa - Nose SARS-CoV-2, Influenza & RSV (PCR) - Final Radiography Diagnostic Testing: Radiology Impression Transesophageal Echocardiogram 03/01/25 08:00 Interpretation Summary Normal LV size. Left ventricular systolic function is normal. The left ventricular ejection fraction is 60 %. Bubble contrast study is negative for PFO/ASD. Mild focal mitral valve calcification, bileaflet. Bioprosthetic aortic valve functioning normally. No evidence of vegetation noted to suggest endocarditis. Ordering Physician: Jesus Alberto Lopez Referring Physician: Abby Mcclellan M.D. Performed By: Juliane Silva RDCS Physical Exam Const alert, oriented x3 and no apparent distress Constitutional Narrative: Patient has class III obesity General Appearance: cooperative, well kempt and well developed Orientation / Consciousness: awake, oriented to person and oriented to place HEENT normocephalic, head/scalp atraumatic and moist oral mucous membranes Eyes PERRL, EOMs intact bilaterally and conjunctivae normal Neck supple, no JVD, thyroid normal and no carotid bruits General: trachea midline Resp normal respiratory effort and clear to auscultation bilaterally Auscultation: Negative for rales, rhonchi or wheezes Cardio regular rate, regular rhythm, S1 normal heart sound, S2 normal heart sound, no murmurs, no rub and no gallops GI normal to inspection, nondistended, normoactive bowel sounds, soft to palpation,non-tender and non-distended Extremity no clubbing, cyanosis or edema Skin no rashes or lesions noted General Skin Exam: no breakdown Neuro CN's II-XII intact bilaterally, no focal motor deficits and no sensory deficits noted Sensorium / Orientation: awake, alert, oriented to person and oriented to place Speech: speech normal Psych affect normal Assessment & Plan Assessment/Plan (1) Septic shock: PLAN: Plan 1. Septic shock secondary to strep agalactiae-again patient was transitioned over to Keflex, her ALEKSANDAR was unremarkable for vegetation. #2 metabolic encephalopathy-cleared at this time, secondary to septic shock #3 class III obesity-complicates care, management, recovery, and prognosis #4 type 2 diabetes-blood sugars will continue to be monitored, sliding scale insulin will be administered as needed #5 generalized debility-patient will be seen by PT and OT #6 paroxysmal atrial fibrillation-patient is currently off Eliquis, she will resume this medicationafter she is discharged from the hospital. Total clinical time spent by myself addressing the patient's medical issues, reviewing all of her data, and collaborating with the patient's care team: 35 minutes Charges/Coding Visit Charges Inpatient E&M: 85525 Subs Hosp L2 03/01/25 193 Cosigner Signature (if applicable): CC: ~ Signed [facility]08-04-2025 Progress note Author Jesus Alberto Chowdhuryninger [facility] Note Date/Time March 01, 2025 11: 28am [facility] Medical Records Department [address] [place] [address] Progress Note - Infect Disease 03/01/25 1127 MR#: [id number] Acct: [id number] Name: JENNIFER GONZALEZ Rep #:[id number] : 1950 74 From: Jesus Alberto kaiser MD PCP: Dr. Abby Mcclellan MD Status:AD M IN Location: [place] [address] Physical Exam Narrative Feeling much better, no fever, out of icu, had ALEKSANDAR this AM. No cough, no abd pain, no n/v/d. Const alert and no apparent distress General Appearance: cooperative Resp normal air movement and clear to auscultation bilaterally Cardio regular rate and regular rhythm GI soft to palpation, non-tender and non-distended Extremity General Extremity: edema Skin no rashes or lesions noted ID ID: Route of nutrition/ use of supplements: [] Nutritional Intake: [] IV Site: [] Juares Catheter: [] Assessment & Plan Assessment/Plan (1) Septic shock: (2) Streptococcal bacteremia: PLAN: Feeling better. Unclear source of GBS in blood. CT chest/abd/pelvis showed no sign infection. No recent procedures and no focal symptoms. UA neg. TTE showed no vegetation. With h/o TAVR and pacer, ordered ALEKSANDAR for 03/01 (negative per verbal report from primary team). On ceftriaxone 2gm daily iv. Ok for home with one week po keflex. Will follow prn, d/w Dr. Borjas 03/01/251127 <Electronically signed by Jesus Alberto Lopez MD> Cosigner Signature (if applicable): CC: ~ Signed [facility] Work Phone: 1(414) 791-817808-04-2025 Progress note [facility] Medical Records Department [address] [place] [address] Progress Note - Infect Disease 03/01/251126 MR#: [id number] Acct: [id number] Name: JENNIFER GONZALEZ Rep #:[id number] : 1950 74 From: Jesus Alberto kiaser MD PCP: Dr. Abby Mcclellan MD Status:AD M IN Location: [place] [address] Physical Exam Narrative Feeling much better, no fever, out of icu, had ALEKSANDAR this AM. No cough, no abd pain, no n/v/d. Const alert and no apparent distress General Appearance: cooperative Resp normal air movement and clear to auscultation bilaterally Cardio regular rate and regular rhythm GI soft to palpation, non-tender and non-distended Extremity General Extremity: edema Skin no rashes or lesions noted ID ID: Route of nutrition/ use of supplements: [] Nutritional Intake: [] IV Site: [] Juares Catheter: [] Assessment & Plan Assessment/Plan (1) Septic shock: (2) Streptococcal bacteremia: PLAN: Feeling better. Unclear source of GBS in blood. CT chest/abd/pelvis showed no sign infection.No recent procedures and no focal symptoms. UA neg. TTE showed no vegetation. With h/o TAVR and pacer, ordered ALEKSANDAR for 03/01 (negative per verbal report from primary team). On ceftriaxone 2gm daily iv.Ok for home with one week po keflex. Will follow prn, d/w Dr. Borjas 03/01/25 1128 Cosigner Signature (if applicable): CC: ~ Signed [facility]08-04-2025 Progress note Author Donnell Mendez [facility] Note Date/Time March 01, 2025 8:3 2am [facility] Medical Records Department [address] [place] [address] Progress Note - Director [employer] 03/01/2525 MR#: [id number] Acct: [id number] Name: JENNIFER GONZALEZ Rep #:[id number] : 1950 74 From: Donnell Mendez DO PCP: Dr. Abby Mcclellan MD Status:AD M IN Location: [place] [address] Assessment & Plan Assessment/Plan (1) Septic shock: PLAN: Plan RECOMMENDATIONS: 1. Continue antimicrobials per ID recommendations. 2. Tentative plans for transesophageal echocardiogram. 3. Encourage incentive spirometer use and mobilize patient as tolerated. 4. Will sign off from a critical care perspective. Please call with any additional questions. IMPRESSIONS: 1. Septic shock The patient presented with sepsis due to GBS bacteremia with acute sepsis related organ dysfunction as evidenced by altered mental status and lactic acidemia. The patient did receive IV fluid resuscitation, but was ultimately placed on vasopressor support due to hemodynamic instability. Initial CT chest/abdomen/pelvis demonstrated no significant pathology. With supportive care, including antimicrobial therapy, the patient has been weaned from vasopressor support and remains hemodynamically stable. Given her history of TAVR with bioprosthetic aortic valve along with pacemaker, surface echocardiogram was obtained but demonstrated no evidence of valvular vegetations. Plan to proceed with transesophageal echocardiogram. Antimicrobial management will be deferred to infectious diseases. 2. Encephalopathy Resolved. Most likely related to presenting sepsis. CT head was unremarkable. TSH is within normal limits. Continue supportive measures as noted above. 3. Morbid obesity/hypertension/hyperlipidemia/diabetes mellitus/paroxysmal atrial fibrillation/history of complete heart block status post pacemaker placement/aortic valve stenosis status post TAVR Complicates care, management, recovery and prognosis. Continue to hold home antihypertensives. Will initiate sliding scale insulin coverage and Accu-Cheks. Continue amiodarone as ordered to address paroxysmal atrial fibrillation. PT/OT to work with the patient. This note was generated with [employer] dictation software. It may contain incorrectwords, spelling, and punctuation that were not noted in checking the note beforesigning. Subjective Subjective The patient was seen and examined at the bedside this morning. Events from the last 24 hours have been reviewed. The patient is currently afebrile, hemodynamically stable and maintaining appropriate oxygen saturations on 2 L/minvia nasal cannula. The patient is documented to be overall net +5.2 L for the hospitalization. White blood cell count is normal. Platelet count is decreasedat 76,000. Creatinine is within normal limits. Objective Data Objective Data The patient's most recent lab work, culture data and imaging studies have all been personally reviewed. Blood cultures were positive for group B streptococcus. Vital Signs: Vital Signs Temp Pulse Resp BP Pulse Ox O2 Del Method O2 Flow Rate 97.8 F 112 H 24 H 152/81 H 96 Nasal Cannula 2 03/01/25 04:00 03/01/25 04:00 03/01/25 04:00 03/01/25 04:00 03/01/25 08:16 03/01/25 08:16 03/01/25 08:16 Oxygen Flow Rate (L/min) 2 Oxygen Delivery Method Nasal Cannula Weight: 251 lb 12.286 oz Body Mass Index (BMI) 49.4 Intake & Output: Intake and Output for Last 24 Hours 02/27/25 02/28/25 03/01/25 23:59 23:59 23:59 Intake Total 2121.98 / 2121.98 1875.00 / 1875.00 Output Total 1430 / 1430 925 / 1275 600 / 600 Balance 691.98 / 691.98 950.00 / 600.00 -600 / -600 Lab / Micro Data Attestation: I reviewed the patient's lab results. 03/01/25 05:37 03/01/25 05:37 Labs: Laboratory Results - last 24 hr 02/28/25 05:17: Phosphorus 1.7 L, Magnesium 1.8 02/28/25 08:12: POC Glucose 170 H 02/28/25 11:26: POC Glucose 165 H 02/28/25 16:08: POC Glucose 168 H 02/28/25 22:56: POC Glucose 236 H 03/01/25 05:37: WBC 8.7, RBC 3.93 L, Hgb 12.2, Hct 35.9 L, MCV 91.3, MCH 31.0, MCHC 34.0, RDW Std Deviation 45.7 H, RDW Coeff of Yovany 13.4, Plt Count 76 L, MPV 12.2 H, Immature Gran % (Auto) 0.700, Neut % (Auto) 70.6 H, Lymph % (Auto) 16.8 L, Parker % (Auto) 10.6 H, Eos % (Auto) 0.6, Baso % (Auto) 0.7, Absolute Neuts (auto) 6.2, Absolute Lymphs (auto) 1.46, Nucleated RBC % 0, Sodium 137, Potassium 3.6, Chloride 108, Carbon Dioxide 15.3 L, Anion Gap 14, BUN 14, Creatinine 0.69 L, Estim Creat Clear Calc 68.93, Est GFR (MDRD) Non-Af 90, BUN/Creatinine Ratio 20.6 H, Glucose 212 H, Calcium 8.5 03/01/25 06:55: POC Glucose 225 H Micro: Microbiology 02/26/25 18:05 Blood Culture (Wb) - Pic Blood Culture - Final Streptococcus agalactiae (B) 02/25/25 21:10 Urine, Clean Catch Urine Culture - Final Mixed Gram Positive Organisms Streptococcus agalactiae (B) Gram negative ashley 02/25/25 20:30 Blood Culture (Wb) - Venous Blood Culture - Final Streptococcus agalactiae (B) 02/25/25 21:25 Blood Culture (Wb) - Left Hand Bacteria Detection (PCR) - Final Streptococcus agalactiae (B) 02/25/25 21:25 Blood Culture (Wb) - Left Hand Blood Culture - Final Streptococcus agalactiae (B) 02/25/25 22:30 Mucosa - Nose Respiratory Panel (PCR) - Final 02/25/25 21:11 Mucosa - Nose SARS-CoV-2, Influenza & RSV (PCR) - Final Radiography Diagnostic Testing: Radiology Impression Chest X-Ray 02/28/25 13:01 IMPRESSION: No Acute Findings. Reading Location: [id number] Physical Exam Const alert and no apparent distress General Appearance: cooperative HEENT normocephalic and head/scalp atraumatic HEENT Narrative: Dry mucous membranes. Eyes PERRL, EOMs intact bilaterally and conjunctivae normal Neck supple General: trachea midline Chest inspection of chest normal Resp normal respiratory effort Auscultation: wheezes; Negative for rales or rhonchi Cardio regular rate and regular rhythm GI normal to inspection, nondistended, normoactive bowel sounds Extremity no clubbing, cyanosis or edema Skin no rashes or lesions noted Neuro CN's II-XII intact bilaterally, moves all extremities and no focal motor deficits Psych cooperative and affect normal Charges/Coding Visit Charges Inpatient E&M: 62344 Subs Hosp L2 03/01/25 0832 <Electronically signed by Donnell Mendez DO> Cosigner Signature (if applicable): CC: ~ Signed [facility] Work Phone: 1(278) 242-824208-04-2025 Progress note [facility] Medical Records Department [address] [place] [address] Progress Note - Director [employer] 03/01/25824 MR#: [id number] Acct: [id number] Name: JENNIFER GONZALEZ Rep #:[id number] : 1950 74 From: Donnell Mendez DO PCP: Dr. Abby Mcclellan MD Status:AD M IN Location: [place] [id number]- Assessment & Plan Assessment/Plan (1) Septic shock: PLAN: Plan RECOMMENDATIONS: 1. Continue antimicrobials per ID recommendations. 2. Tentative plans for transesophageal echocardiogram. 3. Encourage incentive spirometer use and mobilize patient as tolerated. 4. Will sign off from a critical care perspective. Please call with any additional questions. IMPRESSIONS: 1. Septic shock The patient presented with sepsis due to GBS bacteremia with acute sepsis related organ dysfunctionas evidenced by altered mental status and lactic acidemia. The patient did receive IV fluid resuscitation, but was ultimately placed on vasopressor support due to hemodynamic instability. Initial CT c hest/abdomen/pelvis demonstrated no significant pathology. With supportive care, including antimicrobial therapy, the patient has been weaned from vasopressor support and remains hemodynamically stable. Given her history of TAVR with bioprosthetic aortic valve along with pacemaker, surface echocardiogram was obtained but demonstrated no evidence of valvular vegetations. Plan to proceed with transesophageal echocardiogram. Antimicrobial management will be deferred to infectious diseases. 2. Encephalopathy Resolved. Most likely related to presenting sepsis. CT head was unremarkable. TSH is within normal limits. Continue supportive measures as noted above. 3. Morbid obesity/hypertension/hyperlipidemia/diabetes mellitus/paroxysmal atrial fibrillation/history of complete heart block status post pacemaker placement/aortic valve stenosis status post TAVR Complicates care, management, recovery and prognosis. Continue to hold home antihypertensives. Willinitiate sliding scale insulin coverage and Accu-Cheks. Continue amiodarone as ordered to address paroxysmal atrial fibrillation. PT/OT to work with the patient. This note was generated with [employer] dictation software. It may contain incorrectwords, spelling, and punctuation that were not noted in checking the note beforesigning. Subjective Subjective The patient was seen and examined at the bedside this morning. Events from the last 24 hours have been reviewed. The patient is currently afebrile, hemodynamically stable and maintaining appropriate oxygen saturations on 2 L/minvia nasal cannula. The patient is documented to be overall net +5.2 L for the hospitalization. White blood cell count is normal. Platelet count is decreasedat 76,000. Creatinine is within normal limits. Objective Data Objective Data The patient's most recent lab work, culture data and imaging studies have all been personally reviewed. Blood cultures were positive for group B streptococcus. Vital Signs: Vital Signs Temp Pulse Resp BP Pulse Ox O2 Del Method O2 Flow Rate 97.8 F 112 H 24 H 152/81 H 96 Nasal Cannula 2 03/01/25 04:00 03/01/25 04:00 03/01/25 04:00 03/01/25 04:00 03/01/25 08:16 03/01/25 08:16 03/01/25 08:16 Oxygen Flow Rate (L/min) 2 Oxygen Delivery Method Nasal Cannula Weight: 251 lb 12.286 oz Body Mass Index (BMI) 49.4 Intake & Output: Intake and Output for Last 24 Hours 02/27/25 02/28/25 03/01/25 23:59 23:59 23:59 Intake Total 2121.98 / 2121.98 1875.00 / 1875.00 Output Total 1430 / 1430 925 / 1275 600 / 600 Balance 691.98 / 691.98 950.00 / 600.00 -600 / -600 Lab / Micro Data Attestation: I reviewed the patient's lab results. 03/01/25 05:37 03/01/25 05:37 Labs: Laboratory Results - last 24 hr 02/28/25 05:17: Phosphorus 1.7 L, Magnesium 1.8 02/28/25 08:12: POC Glucose 170 H 02/28/25 11:26: POC Glucose 165 H 02/28/25 16:08: POC Glucose 168 H 02/28/25 22:56: POC Glucose 236 H 03/01/25 05:37: WBC 8.7, RBC 3.93 L, Hgb 12.2, Hct 35.9 L, MCV 91.3, MCH 31.0, MCHC 34.0, RDW Std Deviation 45.7 H, RDW Coeff of Yovany 13.4, Plt Count 76 L, MPV 12.2 H, Immature Gran % (Auto) 0.700, Neut % (Auto) 70.6 H, Lymph % (Auto) 16.8 L, Parker % (Auto) 10.6 H, Eos % (Auto) 0.6, Baso % (Auto) 0.7, Absolute Neuts (auto) 6.2, Absolute Lymphs (auto) 1.46, Nucleated RBC % 0, Sodium 137, Potassium 3.6, Chloride 108, Carbon Dioxide 15.3 L, Anion Gap 14, BUN 14, Creatinine 0.69 L, Estim Creat Clear Calc 68.93, Est GFR (MDRD) Non-Af 90, BUN/Creatinine Ratio 20.6 H, Glucose 212 H, Calcium 8.5 03/01/25 06:55: POC Glucose 225 H Micro: Microbiology 02/26/25 18:05 Blood Culture (Wb) - Pic Blood Culture - Final Streptococcus agalactiae (B) 02/25/25 21:10 Urine, Clean Catch Urine Culture - Final Mixed Gram Positive Organisms Streptococcus agalactiae (B) Gram negative ashley 02/25/25 20:30 Blood Culture (Wb) - Venous Blood Culture - Final Streptococcus agalactiae (B) 02/25/25 21:25 Blood Culture (Wb) - Left Hand Bacteria Detection (PCR) - Final Streptococcus agalactiae (B) 02/25/25 21:25 Blood Culture (Wb) - Left Hand Blood Culture - Final Streptococcus agalactiae (B) 02/25/25 22:30 Mucosa - Nose Respiratory Panel (PCR) - Final 02/25/25 21:11 Mucosa - Nose SARS-CoV-2, Influenza & RSV (PCR) - Final Radiography Diagnostic Testing: Radiology Impression Chest X-Ray 02/28/25 13:01 IMPRESSION: No Acute Findings. Reading Location: [facility] Physical Exam Const alert and no apparent distress General Appearance: cooperative HEENT normocephalic and head/scalp atraumatic HEENT Narrative: Dry mucous membranes. Eyes PERRL, EOMs intact bilaterally and conjunctivae normal Neck supple General: trachea midline Chest inspection of chest normal Resp normal respiratory effort Auscultation: wheezes; Negative for rales or rhonchi Cardio regular rate and regular rhythm GI normal to inspection, nondistended, normoactive bowel sounds Extremity no clubbing, cyanosis or edema Skin no rashes or lesions noted Neuro CN's II-XII intact bilaterally, moves all extremities and no focal motor deficits Psych cooperative and affect normal Charges/Coding Visit Charges Inpatient E&M: 97313 Subs Hosp L2 03/01/25 0832 Cosigner Signature (if applicable): CC: ~ Signed [facility]08-03-2025 Progress note Author [facility] Note Date/Time February 28, 2025 2:2 2pm [facility] Medical Records Department [address] [place] [address] Progress Note 02/28/2515 MR#: [id number] Acct: [id number] Name: JENNIFER GONZALEZ Rep #:[id number] : 1950 74 From: Candis Willson MD PCP: Dr. Abby Mcclellan MD Status:AD M IN Location: ICU ICU05-1 Subjective Subjective Patient seen and examined. She had no complaints and looked much better today. Review of systems is otherwise negative. Objective Data Objective Data Vital Signs: Vital Signs Temp Pulse Resp BP Pulse Ox O2 Del Method O2 Flow Rate 100.2 F H 98 27 H 151/78 H 98 Nasal Cannula 2 02/28/25 05:00 02/28/25 05:00 02/28/25 05:00 02/28/25 05:00 02/28/25 07:08 02/28/25 07:08 02/28/25 07:08 Oxygen Flow Rate (L/min) 2 Oxygen Delivery Method Nasal Cannula Weight: 251 lb 1.704 oz Body Mass Index (BMI) 49.3 Intake & Output: Intake and Output for Last 24 Hours 02/26/25 02/27/25 02/28/25 23:59 23:59 23:59 Intake Total 4875.98 / 4875.98 2121.98 / 2121.98 325.25 / 325.25 Output Total 700 / 1000 1430 / 1430 475 / 475 Balance 4175.98 / 3875.98 691.98 / 691.98 -149.75 / -149.75 Lab / Micro Data 02/28/25 05:17 02/28/25 05:17 Labs: Laboratory Results - last 24 hr 02/27/25 11:28: POC Glucose 225 H 02/27/25 11:30: Vancomycin Trough 14.6 02/27/25 15:50: POC Glucose 207 H 02/27/25 22:00: POC Glucose 172 H 02/28/25 05:17: WBC 7.4, RBC 3.90 L, Hgb 11.9 L, Hct 35.8 L, MCV 91.8, MCH 30.5,MCHC 33.2, RDW Std Deviation 45.5 H, RDW Coeff of Yovany 13.5, Plt Count 59 L, MPV 12.9 H, Immature Gran % (Auto) 0.500, Neut % (Auto) 66.9, Lymph % (Auto) 20.6, Parker % (Auto) 10.1 H, Eos % (Auto) 1.5, Baso % (Auto) 0.4, Absolute Neuts (auto) 5.0, Absolute Lymphs (auto) 1.53, Nucleated RBC % 0, Differential Comment SCANNED, Platelet Estimate MOD DEC, Sodium 137, Potassium 3.5, Chloride 108, Carbon Dioxide 18.8 L, Anion Gap 10, BUN 16, Creatinine 0.78, Estim Creat Clear Calc 68.81, Est GFR (MDRD) Non-Af 78, BUN/Creatinine Ratio 20.6 H, Glucose 176 H, Calcium 8.0 02/28/25 08:12: POC Glucose 170 H Micro: Microbiology 02/25/25 20:30 Blood Culture (Wb) - Venous Blood Culture - Final Streptococcus agalactiae (B) 02/25/25 21:25 Blood Culture (Wb) - Left Hand Bacteria Detection (PCR) - Final Streptococcus agalactiae (B) 02/25/25 21:25 Blood Culture (Wb) - Left Hand Blood Culture - Final Streptococcus agalactiae (B) 02/26/25 18:05 Blood Culture (Wb) - Pic Blood Culture - Preliminary Streptococcus agalactiae (B) 02/25/25 21:10 Urine, Clean Catch Urine Culture - Preliminary Mixed Gram Positive Organisms Beta streptococcus Gram negative ashley 02/25/25 22:30 Mucosa - Nose Respiratory Panel (PCR) - Final 02/25/25 21:11 Mucosa - Nose SARS-CoV-2, Influenza & RSV (PCR) - Final Physical Exam Const alert, oriented x3 and no apparent distress General Appearance: cooperative HEENT normocephalic, head/scalp atraumatic, hearing grossly normal bilaterally and moist oral mucous membranes Eyes PERRL, EOMs intact bilaterally and conjunctivae normal Neck no lymphadenopathy, supple and no JVD Lymph Lymphatic: no lymphedema noted Resp Resp Narrative: Mildly diminished breath sounds bibasilarly. No wheezes or crackles. on 2L of oxygen by nasal canula Cardio regular rate, regular rhythm, S1 normal heart sound, S2 normal heart sound and no murmurs GI normal to inspection, nondistended, normoactive bowel sounds, soft to palpation,non-tender and non-distended Extremity normal to inspection, full ROM, normal capillary refill and no clubbing, cyanosis or edema General Extremity: no tenderness to palpation of joints or extremities Skin General Skin Exam: no breakdown Neuro CN's II-XII intact bilaterally and no focal motor deficits Neuro Narrative: alert, communicative today. Motor Exam: general weakness Psych thought process normal and cooperative Psych Narrative: Patient is lethargic and confused but arousable. Appearance: appropriate Assessment & Plan Assessment/Plan (1) Septic shock: (2) Metabolic encephalopathy: (3) Lactic acidosis: PLAN: Plan #Septic shock * Still remains febrile with temperature over one 112.9 Fahrenheit. Also on low- dose Levophed. On IV vancomycin and Zosyn. * Blood and urine cultures ordered. Critical care on board. * Continue hydrating with IV fluids.]weaned off levophed * blood cultures growing Strep agalactiae in 2/2 samples. Urine cultures pending. * will repeat blood cultures. DC vancomycin and zosyn and narrow down to IV ceftriaxone based on sensitivities. Consult ID. #Acute encephalopathy likely due to septic shock: Management as above. Urine drug screen is negative. #Paroxysmal A-fib: Eliquis on hold. Currently on therapeutic Lovenox. Rate controlled #Benign essential hypertension: On losartan and metoprolol which are both on hold due to septic shock. Will resume as shock has resolved. #Hyperlipidemia: On statin #History of heart block: s/p pacemaker #DVT prophylaxis: on lovenox therapeutic dose. CODE STATUS: * full code * Disposition: transfer to PCU. Charges/Coding Visit Charges Inpatient E&M: 90009 Subs Hosp L2 02/28/25 1422 <Electronically signed by Candis Willson MD> Candis Willson MD Cosigner Signature (if applicable): CC: ~ Signed [facility] Work Phone: 1(588) 721-678308-03-2025 Progress note Author Frank Hanson [facility] Note Date/Time February 28, 2025 1:0 8pm [facility] Medical Records Department [address] [place] [address] Progress Note - Director [employer] 02/28/25 1302 MR#: [id number] Acct: [id number] Name: JENNIFER GONZALEZ Rep #:[id number] : 1950 74 From: Frank Hanson MD PCP: Dr. Abby Mcclellan MD Status:AD M IN Location: ICU ICU05-1 Objective Data Objective Data Vital Signs: Vital Signs Last response 3 Temperature 37.8 C H 02/28/25 12:00 Temperature Source Core 02/28/25 11:00 Pulse Rate 88 02/28/25 12:00 Pulse Strength Normal (2+) 02/28/25 10:00 Respiratory Rate 34 H 02/28/25 12:00 Respiratory Effort Normal 02/28/25 08:00 Respiratory Depth Shallow 02/28/25 08:00 Respiratory Pattern Normal 02/28/25 08:00 Blood Pressure 139/72 H 02/28/25 12:00 Blood Pressure Mean 94 02/28/25 12:00 Blood Pressure Source Monitor 02/28/25 12:00 Blood Pressure Position Semi-Fowlers 02/28/25 11:00 Blood Pressure Location Left Forearm 02/28/25 11:00 Pulse Ox 98 02/28/25 12:00 Oxygen Delivery Method Nasal Cannula 02/28/25 12:00 Oxygen Flow Rate (L/min) 2 02/28/25 12:00 I&O: I&O Last 24 Hours 3 02/27/25 02/28/25 02/28/25 23:59 11:59 23:59 Intake Total 1425 / 2121.98 855.25 / 855.25 Output Total 730 / 1430 775 / 775 Balance 695 / 691.98 80.25 / 80.25 I&O: Total Stay 3 02/25/25 20:40 thru 02/28/25 11:30 Intake Total 7853.21 Output Total 2905 Balance 4948.21 Current Meds Ordered / Administered: Current meds ordered / Administered 3 Generic Name Dose Route Start Last Admin Trade Name Freq PRN Reason Stop Dose Admin Acetaminophen 650 mg 02/26/25 10:05 02/27/25 10:25 Acetaminophen 325 Mg Tablet PO 650 mg Q4H PRN PRN Administration Pain 1-10 or Fever Amiodarone HCl 200 mg 02/27/25 10:00 02/28/25 08:21 Amiodarone 200 Mg Tablet PO 200 mg BID JESSE Administration Calcium/Vitamin D 1 tablet 02/26/25 22:00 02/28/25 08:20 Calcium Carb/Vitamin D 1 Tablet Tablet PO 1 tablet BID JESSE Administration Pantoprazole Sodium 40 mg/ 100 mls @ 330 mls/hr 02/26/25 00:46 02/27/25 22:18 Sodium Chloride IV Infused 2200 JESSE Infusion Sodium Chloride 250 mls @ 15 mls/hr 02/26/25 01:10 02/28/25 02:24 IV 15 mls/hr .[id number] PRN Infusion Saline Flush Sodium Chloride 250 mls @ 15 mls/hr 02/26/25 01:10 IV .[id number] PRN Additional IVPB Infusion Norepinephrine Bitartrate 8 mg 250 mls @ 9.375 mls/hr 02/26/25 05:45 02/29/2512:00 / Sodium Chloride CONT INF Not Given .[id number] [facility] Protocol 5 MCG/MIN Ceftriaxone Sodium 1 gm in 50 mls @ 100 mls/hr 02/28/25 10:00 Rocephin IV Q24 [facility] Insulin Human Lispro 0 unit 02/26/25 16:42 02/28/25 11:28 Insulin Lispro 100 Unit/Ml Insuln.Pen SC 1 u ACHS [facility] Administration Protocol Metoprolol Succinate 25 mg 02/28/25 10:00 02/28/25 11:27 Metoprolol(Xl)Succ 25 Mg Tablet PO 25 mg DAILY [facility] Administration Protocol Ondansetron HCl 4 mg 02/26/25 01:09 Ondansetron 4 Mg/2 Ml Vial IV Q6H PRN PRN NAUSEA/VOMITING Sodium Chloride 10 - 40 ml 02/26/25 01:10 02/27/25 11:39 0.9% Saline Lock 10 Ml Syringe IV 10 ml UD PRN Administration SALINE FLUSH Lab / Micro Data 02/28/25 05:17 02/28/25 05:17 Labs: Laboratory Results - last 24 hr 02/27/25 15:50: POC Glucose 207 H 02/27/25 22:00: POC Glucose 172 H 02/28/25 05:17: WBC 7.4, RBC 3.90 L, Hgb 11.9 L, Hct 35.8 L, MCV 91.8, MCH 30.5,MCHC 33.2, RDW Std Deviation 45.5 H, RDW Coeff of Yovany 13.5, Plt Count 59 L, MPV 12.9 H, Immature Gran % (Auto) 0.500, Neut % (Auto) 66.9, Lymph % (Auto) 20.6, Parker % (Auto) 10.1 H, Eos % (Auto) 1.5, Baso % (Auto) 0.4, Absolute Neuts (auto) 5.0, Absolute Lymphs (auto) 1.53, Nucleated RBC % 0, Differential Comment SCANNED, Platelet Estimate MOD DEC, Sodium 137, Potassium 3.5, Chloride 108, Carbon Dioxide 18.8 L, Anion Gap 10, BUN 16, Creatinine 0.78, Estim Creat Clear Calc 68.81, Est GFR (MDRD) Non-Af 78, BUN/Creatinine Ratio 20.6 H, Glucose 176 H, Calcium 8.0 02/28/25 08:12: POC Glucose 170 H 02/28/25 11:26: POC Glucose 165 H Micro: Microbiology 02/25/25 21:10 Urine, Clean Catch Urine Culture - Final Mixed Gram Positive Organisms Streptococcus agalactiae (B) Gram negative ashley 02/25/25 20:30 Blood Culture (Wb) - Venous Blood Culture - Final Streptococcus agalactiae (B) 02/25/25 21:25 Blood Culture (Wb) - Left Hand Bacteria Detection (PCR) - Final Streptococcus agalactiae (B) 02/25/25 21:25 Blood Culture (Wb) - Left Hand Blood Culture - Final Streptococcus agalactiae (B) 02/26/25 18:05 Blood Culture (Wb) - Pic Blood Culture - Preliminary Streptococcus agalactiae (B) Assessment and Plan . Assessment and plan: IMPRESSIONS: 1. Septic shock - Group B Strep + bacteremia in setting of bioprosthetic AV, concern for endocarditis - low grade fevers continue - ALEKSANDAR in AM - ID consult following 2. Tachypnea concern for pulmonary pathology - not in resp distress - suspect edema 3. Encephalopathy - reportedly normal MS earlier this AM - head CT negative - seems slowed but less so than previously 4. RVR atrial fibrillation, improved - converted back to NSR on oral amiodarone overnight - hemodynamically tolerated - amiodarone drip -> PO x 1 this AM 5. Morbid obesity/hypertension/hyperlipidemia/diabetes mellitus/paroxysmal atrial fibrillation/history of complete heart block status post pacemaker placement/aortic valve stenosis status post TAVR Complicates care, management, recovery and prognosis. Continue to hold home antihypertensives. Will initiate sliding scale insulin coverage and Accu-Cheks. Continue amiodarone as ordered to address paroxysmal atrial fibrillation. While the patient was being maintained on Eliquis on an outpatient basis, if sheis not able to clear her sensorium enough to take in p.o. intake, she will require initiation of a heparin infusion. RECOMMENDATIONS: 1. Continue antibiotics per ID. 2. pressors PRN MAP >65 mmHg. 3. continue amiodarone 200 mg BID 4. ALEKSANDAR planned 03/01. 5. check CXR to evaluate for edema 6. clear liquid diet. Critical Care Time: 50 minutes The entirety of this encounter was done via Telemedicine Frank Hanson MD Physical Exam Const alert and no apparent distress HEENT normocephalic Eyes PERRL Neck full ROM Resp normal respiratory effort Effort and Inspection: tachypneic Cardio regular rate Subjective Subjective Looks good, denies dyspnea yet remains persistently tachypneic with RR 38 02/28/25 1308 <Electronically signed by Frank Hanson MD> Cosigner Signature (if applicable): CC: ~ Signed [facility] Work Phone: 1(822) 457-861708-03-2025 Progress note [facility] Medical Records Department [address] [place] [address] Progress Note 02/28/25 0915 MR#: [id number] Acct: [id number] Name: JENNIFER GONZALEZ Rep #:[id number] : 1950 74 From: Candis Willson MD PCP: Dr. Abby Mcclellan MD Status:AD M IN Location: ICU ICU05-1 Subjective Subjective Patient seen and examined. She had no complaints and looked much better today. Review of systems isotherwise negative. Objective Data Objective Data Vital Signs: Vital Signs Temp Pulse Resp BP Pulse Ox O2 Del Method O2 Flow Rate 100.2 F H 98 27 H 151/78 H 98 Nasal Cannula 2 02/28/25 05:00 02/28/25 05:00 02/28/25 05:00 02/28/25 05:00 02/28/25 07:08 02/28/25 07:08 02/28/25 07:08 Oxygen Flow Rate (L/min) 2 Oxygen Delivery Method Nasal Cannula Weight: 251 lb 1.704 oz Body Mass Index (BMI) 49.3 Intake & Output: Intake and Output for Last 24 Hours 02/26/25 02/27/25 02/28/25 23:59 23:59 23:59 Intake Total 4875.98 / 4875.98 2121.98 / 2121.98 325.25 / 325.25 Output Total 700 / 1000 1430 / 1430 475 / 475 Balance 4175.98 / 3875.98 691.98 / 691.98 -149.75 / -149.75 Lab / Micro Data 02/28/25 05:17 02/28/25 05:17 Labs: Laboratory Results - last 24 hr 02/27/25 11:28: POC Glucose 225 H 02/27/25 11:30: Vancomycin Trough 14.6 02/27/25 15:50: POC Glucose 207 H 02/27/25 22:00: POC Glucose 172 H 02/28/25 05:17: WBC 7.4, RBC 3.90 L, Hgb 11.9 L, Hct 35.8 L, MCV 91.8, MCH 30.5,MCHC 33.2, RDW Std Deviation 45.5 H, RDW Coeff of Yovany 13.5, Plt Count 59 L, MPV 12.9 H, Immature Gran % (Auto) 0.500, Neut % (Auto) 66.9, Lymph % (Auto) 20.6, Parker % (Auto) 10.1 H, Eos % (Auto) 1.5, Baso % (Auto) 0.4, Absolute Neuts (auto) 5.0, Absolute Lymphs (auto) 1.53, Nucleated RBC % 0, Differential Comment SCANNED, Platelet Estimate MOD DEC, Sodium 137, Potassium 3.5, Chloride 108, Carbon Dioxide 18.8 L, AnionGap 10, BUN 16, Creatinine 0.78, Estim Creat Clear Calc 68.81, Est GFR (MDRD) Non-Af 78, BUN/Creatinine Ratio 20.6 H, Glucose 176 H, Calcium 8.0 02/28/25 08:12: POC Glucose 170 H Micro: Microbiology 02/25/25 20:30 Blood Culture (Wb) - Venous Blood Culture - Final Streptococcus agalactiae (B) 02/25/25 21:25 Blood Culture (Wb) - Left Hand Bacteria Detection (PCR) - Final Streptococcus agalactiae (B) 02/25/25 21:25 Blood Culture (Wb) - Left Hand Blood Culture - Final Streptococcus agalactiae (B) 02/26/25 18:05 Blood Culture (Wb) - Pic Blood Culture - Preliminary Streptococcus agalactiae (B) 02/25/25 21:10 Urine, Clean Catch Urine Culture - Preliminary Mixed Gram Positive Organisms Beta streptococcus Gram negative ashley 02/25/25 22:30 Mucosa - Nose Respiratory Panel (PCR) - Final 02/25/25 21:11 Mucosa - Nose SARS-CoV-2, Influenza & RSV (PCR) - Final Physical Exam Const alert, oriented x3 and no apparent distress General Appearance: cooperative HEENT normocephalic, head/scalp atraumatic, hearing grossly normal bilaterally and moist oral mucous membranes Eyes PERRL, EOMs intact bilaterally and conjunctivae normal Neck no lymphadenopathy, supple and no JVD Lymph Lymphatic: no lymphedema noted Resp Resp Narrative: Mildly diminished breath sounds bibasilarly. No wheezes or crackles. on 2L of oxygen by nasal canula Cardio regular rate, regular rhythm, S1 normal heart sound, S2 normal heart sound and no murmurs GI normal to inspection, nondistended, normoactive bowel sounds, soft to palpation,non-tender and non-distended Extremity normal to inspection, full ROM, normal capillary refill and no clubbing, cyanosis or edema General Extremity: no tenderness to palpation of joints or extremities Skin General Skin Exam: no breakdown Neuro CN's II-XII intact bilaterally and no focal motor deficits Neuro Narrative: alert, communicative today. Motor Exam: general weakness Psych thought process normal and cooperative Psych Narrative: Patient is lethargic and confused but arousable. Appearance: appropriate Assessment & Plan Assessment/Plan (1) Septic shock: (2) Metabolic encephalopathy: (3) Lactic acidosis: PLAN: Plan #Septic shock * Still remains febrile with temperature over one 112.9 Fahrenheit. Also on low- dose Levophed. On IV vancomycin and Zosyn. * Blood and urine cultures ordered. Critical care on board. * Continue hydrating with IV fluids.]weaned off levophed * blood cultures growing Strep agalactiae in 2/2 samples. Urine cultures pending. * will repeat blood cultures. DC vancomycin and zosyn and narrow down to IV ceftriaxone based on sensitivities. Consult ID. #Acute encephalopathy likely due to septic shock: Management as above. Urine drug screen is negative. #Paroxysmal A-fib: Eliquis on hold. Currently on therapeutic Lovenox. Rate controlled #Benign essential hypertension: On losartan and metoprolol which are both on hold due to septic shock. Will resume as shock has resolved. #Hyperlipidemia: On statin #History of heart block: s/p pacemaker #DVT prophylaxis: on lovenox therapeutic dose. CODE STATUS: * full code * Disposition: transfer to PCU. Charges/Coding Visit Charges Inpatient E&M: 26459 Subs Hosp L2 02/28/25 8256 Candis Willson MD Cosigner Signature (if applicable): CC: ~ Signed [facility]08-03-2025 Radiology Diagnostic study note [facility] Imaging Services [address] [place] [address] Chest 1 View (Portable) MR#: [id number] Acct: [id number] Name: JENNIFER GONZALEZ Rep #: [id number] : 1950 F 74 From: Rajani Barnes MD PCP: Dr. Abby Mcclellan MD Status: AD M IN Study:Chest 1 View (Portable) Date of Exam: 02/28/25 Exam# [id number] Ordering Dr: Frank Hanson MD PROCEDURE: CHEST 1 VIEW (PORTABLE) 02/28/2025 REASON FOR EXAM: TACHYPNEA TECHNIQUE: Frontal view of the chest. COMPARISON: Chest radiograph 02/26/2025. FINDINGS: Hardware: Stable left chest wall pacemaker and prior aortic valve replacement. Stable right PICC with tip overlying the right atrium. Heart: The heart size is normal. Lungs: Bibasilar atelectasis. No focal consolidation, pleural effusion or pneumothorax. Bones: Degenerative changes are identified within the thoracic spine. RAD/Chest 1 View (Portable) IMPRESSION: No Acute Findings. Reading Location: [facility] CC: Dr. Frank Hanson MD; Dr. Abby Mcclellan MD ~ Hand I Thermal Cutter: Signed [facility]08-03-2025 Progress note [facility] Medical Records Department [address] [place] [address] Progress Note - Director [employer] 02/28/25 1302 MR#: [id number] Acct: [id number] Name: JENNIFER GONZALEZ Rep #:[id number] : 1950 74 From: Frank Hanson MD PCP: Dr. Abby Mcclellan MD Status:AD M IN Location: ICU ICU05-1 Objective Data Objective Data Vital Signs: Vital Signs Last response 3 Temperature 37.8 C H 02/28/25 12:00 Temperature Source Core 02/28/25 11:00 Pulse Rate 88 02/28/25 12:00 Pulse Strength Normal (2+) 02/28/25 10:00 Respiratory Rate 34 H 02/28/25 12:00 Respiratory Effort Normal 02/28/25 08:00 Respiratory Depth Shallow 02/28/25 08:00 Respiratory Pattern Normal 02/28/25 08:00 Blood Pressure 139/72 H 02/28/25 12:00 Blood Pressure Mean 94 02/28/25 12:00 Blood Pressure Source Monitor 02/28/25 12:00 Blood Pressure Position Semi-Fowlers 02/28/25 11:00 Blood Pressure Location Left Forearm 02/28/25 11:00 Pulse Ox 98 02/28/25 12:00 Oxygen Delivery Method Nasal Cannula 02/28/25 12:00 Oxygen Flow Rate (L/min) 2 02/28/25 12:00 I&O: I&O Last 24 Hours 3 02/27/25 02/28/25 02/28/25 23:59 11:59 23:59 Intake Total 1425 / 2121.98 855.25 / 855.25 Output Total 730 / 1430 775 / 775 Balance 695 / 691.98 80.25 / 80.25 I&O: Total Stay 3 02/25/25 20:40 thru 02/28/25 11:30 Intake Total 7853.21 Output Total 2905 Balance 4948.21 Current Meds Ordered / Administered: Current meds ordered / Administered 3 Generic Name Dose Route Start Last Admin Trade Name Freq PRN Reason Stop Dose Admin Acetaminophen 650 mg 02/26/25 10:05 02/27/25 10:25 Acetaminophen 325 Mg Tablet PO 650 mg Q4H PRN PRN Administration Pain 1-10 or Fever Amiodarone HCl 200 mg 02/27/25 10:00 02/28/25 08:21 Amiodarone 200 Mg Tablet PO 200 mg BID JESSE Administration Calcium/Vitamin D 1 tablet 02/26/25 22:00 02/28/25 08:20 Calcium Carb/Vitamin D 1 Tablet Tablet PO 1 tablet BID JESSE Administration Pantoprazole Sodium 40 mg/ 100 mls @ 330 mls/hr 02/26/25 00:46 02/27/25 22:18 Sodium Chloride IV Infused 2200 JESSE Infusion Sodium Chloride 250 mls @ 15 mls/hr 02/26/25 01:10 02/28/25 02:24 IV 15 mls/hr .[id number] PRN Infusion Saline Flush Sodium Chloride 250 mls @ 15 mls/hr 02/26/25 01:10 IV .[id number] PRN Additional IVPB Infusion Norepinephrine Bitartrate 8 mg 250 mls @ 9.375 mls/hr 02/26/25 05:45 02/29/2512:00 / Sodium Chloride CONT INF Not Given .[id number] [facility] Protocol 5 MCG/MIN Ceftriaxone Sodium 1 gm in 50 mls @ 100 mls/hr 02/28/25 10:00 Rocephin IV Q24 [facility] Insulin Human Lispro 0 unit 02/26/25 16:42 02/28/25 11:28 Insulin Lispro 100 Unit/Ml Insuln.Pen SC 1 u ACHS [facility] Administration Protocol Metoprolol Succinate 25 mg 02/28/25 10:00 02/28/25 11:27 Metoprolol(Xl)Succ 25 Mg Tablet PO 25 mg DAILY [facility] Administration Protocol Ondansetron HCl 4 mg 02/26/25 01:09 Ondansetron 4 Mg/2 Ml Vial IV Q6H PRN PRN NAUSEA/VOMITING Sodium Chloride 10 - 40 ml 02/26/25 01:10 02/27/25 11:39 0.9% Saline Lock 10 Ml Syringe IV 10 ml UD PRN Administration SALINE FLUSH Lab / Micro Data 02/28/25 05:17 02/28/25 05:17 Labs: Laboratory Results - last 24 hr 02/27/25 15:50: POC Glucose 207 H 02/27/25 22:00: POC Glucose 172 H 02/28/25 05:17: WBC 7.4, RBC 3.90 L, Hgb 11.9 L, Hct 35.8 L, MCV 91.8, MCH 30.5,MCHC 33.2, RDW Std Deviation 45.5 H, RDW Coeff of Yovany 13.5, Plt Count 59 L, MPV 12.9 H, Immature Gran % (Auto) 0.500, Neut % (Auto) 66.9, Lymph % (Auto) 20.6, Parker % (Auto) 10.1 H, Eos % (Auto) 1.5, Baso % (Auto) 0.4, Absolute Neuts (auto) 5.0, Absolute Lymphs (auto) 1.53, Nucleated RBC % 0, Differential Comment SCANNED, Platelet Estimate MOD DEC, Sodium 137, Potassium 3.5, Chloride 108, Carbon Dioxide 18.8 L, AnionGap 10, BUN 16, Creatinine 0.78, Estim Creat Clear Calc 68.81, Est GFR (MDRD) Non-Af 78, BUN/Creatinine Ratio 20.6 H, Glucose 176 H, Calcium 8.0 02/28/25 08:12: POC Glucose 170 H 02/28/25 11:26: POC Glucose 165 H Micro: Microbiology 02/25/25 21:10 Urine, Clean Catch Urine Culture - Final Mixed Gram Positive Organisms Streptococcus agalactiae (B) Gram negative ashley 02/25/25 20:30 Blood Culture (Wb) - Venous Blood Culture - Final Streptococcus agalactiae (B) 02/25/25 21:25 Blood Culture (Wb) - Left Hand Bacteria Detection (PCR) - Final Streptococcus agalactiae (B) 02/25/25 21:25 Blood Culture (Wb) - Left Hand Blood Culture - Final Streptococcus agalactiae (B) 02/26/25 18:05 Blood Culture (Wb) - Pic Blood Culture - Preliminary Streptococcus agalactiae (B) Assessment and Plan . Assessment and plan: IMPRESSIONS: 1. Septic shock - Group B Strep + bacteremia in setting of bioprosthetic AV, concern for endocarditis - low grade fevers continue - ALEKSANDAR in AM - ID consult following 2. Tachypnea concern for pulmonary pathology - not in resp distress - suspect edema 3. Encephalopathy - reportedly normal MS earlier this AM - head CT negative - seems slowed but less so than previously 4. RVR atrial fibrillation, improved - converted back to NSR on oral amiodarone overnight - hemodynamically tolerated - amiodarone drip -> PO x 1 this AM 5. Morbid obesity/hypertension/hyperlipidemia/diabetes mellitus/paroxysmal atrial fibrillation/history of complete heart block status post pacemaker placement/aortic valve stenosis status post TAVR Complicates care, management, recovery and prognosis. Continue to hold home antihypertensives. Willinitiate sliding scale insulin coverage and Accu-Cheks. Continue amiodarone as ordered to address paroxysmal atrial fibrillation. While the patient was being maintained on Eliquis on an outpatient basis, if sheis not able to clear her sensorium enough to take in p.o. intake, she will require initiation of a heparin infusion. RECOMMENDATIONS: 1. Continue antibiotics per ID. 2. pressors PRN MAP >65 mmHg. 3. continue amiodarone 200 mg BID 4. ALEKSANDAR planned 03/01. 5. check CXR to evaluate for edema 6. clear liquid diet. Critical Care Time: 50 minutes The entirety of this encounter was done via Telemedicine Frank Hanson MD Physical Exam Const alert and no apparent distress HEENT normocephalic Eyes PERRL Neck full ROM Resp normal respiratory effort Effort and Inspection: tachypneic Cardio regular rate Subjective Subjective Looks good, denies dyspnea yet remains persistently tachypneic with RR 38 02/28/25 1308 Cosigner Signature (if applicable): CC: ~ Signed [facility]08-02-2025 Consult note Author Sola Rivers [facility] Note Date/Time February 27, 2025 2:4 8pm [facility] Medical Records Department [address] [place] [address] Pharmacokinetic/Renal -Consult 02/27/25 1221 MR#: [id number] Acct: [id number] Name: JENNIFER GONZALEZ Rep #:[id number] : 1950 74 From: Sola Rivers PCP: Dr. Abby Mcclellan MD Status:AD M IN Y Location: ICU ICU05-1 Consult Antibiotic Management Pharmacy has been consulted to manage selected antibiotic: Vancomycin Type of Intervention Type of Consult: Follow-up Suspected Infection Suspected Infection: Bacteremia Labs Labs: Sodium 137 mmol/L (133-145) 02/27/25 08:40 Potassium 3.6 mmol/L (3.3-5.1) 02/27/25 08:40 Chloride 108 mmol/L (98-108) 02/27/25 08:40 Carbon Dioxide 18.8 mmol/L (21.0-32.0) L 02/27/25 08:40 Anion Gap 11 (5-15) 02/27/25 08:40 BUN 19 mg/dL (4-19) 02/27/25 08:40 Creatinine 0.86 mg/dL (0.70-1.20) 02/27/25 08:40 Est GFR (MDRD) Non-Af 70 (>60) 02/27/25 08:40 BUN/Creatinine Ratio 21.6 RATIO (10-20) H 02/27/25 08:40 Glucose 156 mg/dL (70-99) H 02/27/25 08:40 Vancomycin Trough 14.6 ug/mL (5.0-15.0) 02/27/25 11:30 Microbiology Microbiology: Microbiology 02/26/25 18:05 Blood Culture (Wb) - Pic Blood Culture - Preliminary 02/25/25 21:10 Urine, Clean Catch Urine Culture - Preliminary Mixed Gram Positive Organisms Beta streptococcus Gram negative ashley 02/25/25 21:25 Blood Culture (Wb) - Left Hand Bacteria Detection (PCR) - Final Streptococcus agalactiae (B) 02/25/25 21:25 Blood Culture (Wb) - Left Hand Blood Culture - Preliminary Streptococcus agalactiae (B) 02/25/25 20:30 Blood Culture (Wb) - Venous Blood Culture - Preliminary Streptococcus agalactiae (B) 02/25/25 22:30 Mucosa - Nose Respiratory Panel (PCR) - Final 02/25/25 21:11 Mucosa - Nose SARS-CoV-2, Influenza & RSV (PCR) - Final Pharmacy Plan for Drug Dosing Pharmacy Plan for Drug Dosing: VANCOMYCIN LEVEL RECEIVED Current Vancomycin Dose: 1000MG Q12 Number of Doses Received: 3 Vancomycin Level: 14.6 MG/DL Hours Since Last Dose: 10.5 Renal Function: SCr 0.86 mg/dL Renal Function Trend: 63 mL/min Lab/Micro: GBS in blood cx Vancomycin Plan/Comments: 10.5 hour trough is subtherapeutic at 14.6mg/dL (goal 15-20). Will increase dose to 1250mg Q12 and get a level prior to 4th dose of new regimen. Pending Level: 03/01/25 @ 0000 Pharmacy Service will continue to monitor and adjust dosing as required. 02/27/25 1222 <Electronically signed by Sola Rivers> Date _ Sola Rivers 02/27/25 1448 <Electronically signed by Candis cummings MD> Cosigner Signature (if applicable): Date Candis Willson MD CC: ~ Signed [facility] Work Phone: 1(697) 823-923808-02-2025 Progress note Author Candis Chuyalberto [facility] Note Date/Time February 27, 2025 2:4 8pm [facility] Medical Records Department [address] [place] [address] Progress Note 02/27/25 1038 MR#: [id number] Acct: [id number] Name: JENNIFER GONZALEZ Rep #:[id number] : 1950 74 From: Candis Willson MD PCP: Dr. Abby Mcclellan MD Status:AD M IN Location: ICU ICU05-1 Subjective Subjective Patient seen and examined. She is alert and more communicative today and feels much better. She has no active complaints and had an uneventful night. She is febrile with temp of 100.1F. Review of systems is otherwise negative. Objective Data Objective Data Vital Signs: Vital Signs Temp Pulse Resp BP Pulse Ox O2 Del Method O2 Flow Rate 100.1 F H 117 H 24 H 124/69 H 97 Room Air 2 02/27/25 09:00 02/27/25 08:00 02/27/25 08:00 02/27/25 08:00 02/27/25 08:00 02/27/25 08:00 02/27/25 04:00 Oxygen Flow Rate (L/min) 2 Oxygen Delivery Method Room Air Weight: 249 lb 5.485 oz Body Mass Index (BMI) 48.9 Intake & Output: Intake and Output for Last 24 Hours 02/25/25 02/26/25 02/27/25 23:59 23:59 23:59 Intake Total 4875.98 / 4875.98 490 / 490 Output Total 700 / 1000 700 / 700 Balance 4175.98 / 3875.98 -210 / -210 Lab / Micro Data 02/27/25 08:40 02/27/25 08:40 Labs: Laboratory Results - last 24 hr 02/26/25 10:20: Troponin T Hi Sens 2 Hr 38 H 02/26/25 12:45: Troponin T Hi Sens 4Hr 41 H 02/26/25 17:31: POC Glucose 213 H 02/26/25 21:32: POC Glucose 213 H 02/27/25 08:04: POC Glucose 136 H 02/27/25 08:40: WBC 9.0, RBC 4.24, Hgb 13.2, Hct 39.2, MCV 92.5, MCH 31.1, MCHC 33.7, RDW Std Deviation 46.3 H, RDW Coeff of Yovany 13.5, Plt Count 63 L, MPV 11.8,Immature Gran % (Auto) 1.100 H, Neut % (Auto) 73.8 H, Lymph % (Auto) 18.6 L, Parker % (Auto) 5.5, Eos % (Auto) 0.4, Baso % (Auto) 0.6, Absolute Neuts (auto) 6.7, Absolute Lymphs (auto) 1.68, Nucleated RBC % 0, Sodium 137, Potassium 3.6, Chloride 108, Carbon Dioxide 18.8 L, Anion Gap 11, BUN 19, Creatinine 0.86, Estim Creat Clear Calc 63.73, Est GFR (MDRD) Non-Af 70, BUN/Creatinine Ratio 21.6 H, Glucose 156 H, Calcium 8.4 Micro: Microbiology 02/25/25 21:25 Blood Culture (Wb) - Left Hand Bacteria Detection (PCR) - Final Streptococcus agalactiae (B) 02/25/25 21:25 Blood Culture (Wb) - Left Hand Blood Culture - Preliminary Streptococcus agalactiae (B) 02/25/25 20:30 Blood Culture (Wb) - Venous Blood Culture - Preliminary Streptococcus agalactiae (B) 02/25/25 22:30 Mucosa - Nose Respiratory Panel (PCR) - Final 02/25/25 21:11 Mucosa - Nose SARS-CoV-2, Influenza & RSV (PCR) - Final Radiography Diagnostic Testing: Radiology Impression Echocardiogram 02/26/25 07:35 Interpretation Summary Normal left ventricular size. Mildly increased left ventricular wall thickness. Normal LVEF with estimated ejection fraction of 55 to 60%. No regional wall motion abnormalities. Indeterminate diastolic function due to elevated LA pressure secondary to mitral valve stenosis. Mildly increased right ventricular size, normal wall thickness, preserved function. Not well-visualized bioprosthetic valve. 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 Bileaflet diffuse mitral valve thickening with heavy calcification in the posterior mitral leaflet and mild mitral stenosis by Doppler measurements. Ordering Physician: Donnell Mendez Referring Physician: Abby Mcclellan Performed By: Jennifer Mays, RDCS, RVT Chest X-Ray 02/26/25 10:05 IMPRESSION: Lungs are hypoinflated, and examination is further limited by some degree of patient motion. No significant interval pneumonic process seen. No pleural effusion or pneumothorax is noted. The cardiomediastinal silhouette is stable, with a calcified and tortuous aorta noted. Aortic valve stent graft and left thoracic transvenous pacemaker with atrial and ventricular leads appear stable. No interval osseous change is noted. Reading Location: [facility] Chest X-Ray 02/26/25 11:20 IMPRESSION: The tip of the PICC line catheter is at the junction of the superior vena cava and right atrium. Reading Location: [id number] Physical Exam Const alert and oriented x3 Constitutional Narrative: flat affect HEENT normocephalic, head/scalp atraumatic, hearing grossly normal bilaterally and moist oral mucous membranes Eyes PERRL, EOMs intact bilaterally and conjunctivae normal Neck no lymphadenopathy, supple and no JVD Lymph Lymphatic: no lymphedema noted Resp Resp Narrative: Mildly diminished breath sounds bibasilarly. No wheezes or crackles. Now on room air. Cardio regular rhythm, S1 normal heart sound, S2 normal heart sound and no murmurs Cardio Narrative: Tachycardic GI normal to inspection, nondistended, normoactive bowel sounds, soft to palpation,non-tender and non-distended Extremity normal to inspection, full ROM, normal capillary refill and no clubbing, cyanosis or edema General Extremity: no tenderness to palpation of joints or extremities Skin General Skin Exam: no breakdown Neuro CN's II-XII intact bilaterally Neuro Narrative: alert, communicative today. Motor Exam: general weakness Psych thought process normal and cooperative Appearance: appropriate Assessment & Plan Assessment/Plan (1) Septic shock: (2) Metabolic encephalopathy: (3) Lactic acidosis: PLAN: Plan #Septic shock * Still remains febrile with temperature over one 112.9 Fahrenheit. Also on low- dose Levophed. On IV vancomycin and Zosyn. * Blood and urine cultures ordered. Currently NPO. Critical care on board. * Continue hydrating with IV fluids.]weaned off levophed * blood cultures growing Strep agalactiae in 1/2 samples. Urine cultures pending. #Acute encephalopathy likely due to septic shock: Management as above. Urine drug screen is negative. #Paroxysmal A-fib: Eliquis on hold. Currently on therapeutic Lovenox. Rate controlled #Benign essential hypertension: On losartan and metoprolol which are both on hold due to septic shock #Hyperlipidemia: On statin #History of heart block: s/p pacemaker #DVT prophylaxis: on lovenox therapeutic dose. CODE STATUS: * full code Charges/Coding Visit Charges Inpatient E&M: 01959 Subs Hosp L2 02/27/25 1448 <Electronically signed by Candis Willson MD> Candis Willson MD Cosigner Signature (if applicable): CC: ~ Signed [facility] Work Phone: 1(953) 927-142008-02-2025 Consult note [facility] Medical Records Department [address] [place] [address] Pharmacokinetic/Renal -Consult 02/27/25 1221 MR#: [id number] Acct: [id number] Name: JENNIFER GONZALEZ Rep #:[id number] : 1950 74 From: Sola Rivers PCP: Dr. Abby Mcclellan MD Status:AD M IN Y Location: ICU ICU05-1 Consult Antibiotic Management Pharmacy has been consulted to manage selected antibiotic: Vancomycin Type of Intervention Type of Consult: Follow-up Suspected Infection Suspected Infection: Bacteremia Labs Labs: Sodium 137 mmol/L (133-145) 02/27/25 08:40 Potassium 3.6 mmol/L (3.3-5.1) 02/27/25 08:40 Chloride 108 mmol/L (98-108) 02/27/25 08:40 Carbon Dioxide 18.8 mmol/L (21.0-32.0) L 02/27/25 08:40 Anion Gap 11 (5-15) 02/27/25 08:40 BUN 19 mg/dL (4-19) 02/27/25 08:40 Creatinine 0.86 mg/dL (0.70-1.20) 02/27/25 08:40 Est GFR (MDRD) Non-Af 70 (>60) 02/27/25 08:40 BUN/Creatinine Ratio 21.6 RATIO (10-20) H 02/27/25 08:40 Glucose 156 mg/dL (70-99) H 02/27/25 08:40 Vancomycin Trough 14.6 ug/mL (5.0-15.0) 02/27/25 11:30 Microbiology Microbiology: Microbiology 02/26/25 18:05 Blood Culture (Wb) - Pic Blood Culture - Preliminary 02/25/25 21:10 Urine, Clean Catch Urine Culture - Preliminary Mixed Gram Positive Organisms Beta streptococcus Gram negative ashley 02/25/25 21:25 Blood Culture (Wb) - Left Hand Bacteria Detection (PCR) - Final Streptococcus agalactiae (B) 02/25/25 21:25 Blood Culture (Wb) - Left Hand Blood Culture - Preliminary Streptococcus agalactiae (B) 02/25/25 20:30 Blood Culture (Wb) - Venous Blood Culture - Preliminary Streptococcus agalactiae (B) 02/25/25 22:30 Mucosa - Nose Respiratory Panel (PCR) - Final 02/25/25 21:11 Mucosa - Nose SARS-CoV-2, Influenza & RSV (PCR) - Final Pharmacy Plan for Drug Dosing Pharmacy Plan for Drug Dosing: VANCOMYCIN LEVEL RECEIVED Current Vancomycin Dose: 1000MG Q12 Number of Doses Received: 3 Vancomycin Level: 14.6 MG/DL Hours Since Last Dose: 10.5 Renal Function: SCr 0.86 mg/dL Renal Function Trend: 63 mL/min Lab/Micro: GBS in blood cx Vancomycin Plan/Comments: 10.5 hour trough is subtherapeutic at 14.6mg/dL (goal 15-20). Will increase dose to 1250mg Q12 and get a level prior to 4th dose of new regimen. Pending Level: 03/01/25 @ 0000 Pharmacy Service will continue to monitor and adjust dosing as required. 02/27/25 1222 Date _ Sola Rivers 02/27/25 1448 m MD> Cosigner Signature (if applicable): Date Candis Willson MD CC: ~ Signed [facility]08-02-2025 Progress note [facility] Medical Records Department [address] [facility] [place] [address] Progress Note 02/27/25 1038 MR#: [id number] Acct: [id number] Name: JENNIFER GONZALEZ Rep #:[id number] : 1950 74 From: Candis Willson MD PCP: Dr. Abby Mcclellan MD Status:AD M IN Location: ICU ICU05-1 Subjective Subjective Patient seen and examined. She is alert and more communicative today and feels much better. She hasno active complaints and had an uneventful night. She is febrile with temp of 100.1F. Review of systems is otherwise negative. Objective Data Objective Data Vital Signs: Vital Signs Temp Pulse Resp BP Pulse Ox O2 Del Method O2 Flow Rate 100.1 F H 117 H 24 H 124/69 H 97 Room Air 2 02/27/25 09:00 02/27/25 08:00 02/27/25 08:00 02/27/25 08:00 02/27/25 08:00 02/27/25 08:00 02/27/25 04:00 Oxygen Flow Rate (L/min) 2 Oxygen Delivery Method Room Air Weight: 249 lb 5.485 oz Body Mass Index (BMI) 48.9 Intake & Output: Intake and Output for Last 24 Hours 02/25/25 02/26/25 02/27/25 23:59 23:59 23:59 Intake Total 4875.98 / 4875.98 490 / 490 Output Total 700 / 1000 700 / 700 Balance 4175.98 / 3875.98 -210 / -210 Lab / Micro Data 02/27/25 08:40 02/27/25 08:40 Labs: Laboratory Results - last 24 hr 02/26/25 10:20: Troponin T Hi Sens 2 Hr 38 H 02/26/25 12:45: Troponin T Hi Sens 4Hr 41 H 02/26/25 17:31: POC Glucose 213 H 02/26/25 21:32: POC Glucose 213 H 02/27/25 08:04: POC Glucose 136 H 02/27/25 08:40: WBC 9.0, RBC 4.24, Hgb 13.2, Hct 39.2, MCV 92.5, MCH 31.1, MCHC 33.7, RDW Std Deviation 46.3 H, RDW Coeff of Yovany 13.5, Plt Count 63 L, MPV 11.8,Immature Gran % (Auto) 1.100 H, Neut % (Auto) 73.8 H, Lymph % (Auto) 18.6 L, Parker % (Auto) 5.5, Eos % (Auto) 0.4, Baso % (Auto) 0.6, Absolute Neuts (auto) 6.7, Absolute Lymphs (auto) 1.68, Nucleated RBC % 0, Sodium 137, Potassium 3.6, Chloride 108, Carbon Dioxide 18.8 L, Anion Gap 11, BUN 19, Creatinine 0.86, Estim Creat Clear Calc 63.73, Est GFR (MDRD) Non-Af 70, BUN/Creatinine Ratio 21.6 H, Glucose 156 H, Calcium 8.4 Micro: Microbiology 02/25/25 21:25 Blood Culture (Wb) - Left Hand Bacteria Detection (PCR) - Final Streptococcus agalactiae (B) 02/25/25 21:25 Blood Culture (Wb) - Left Hand Blood Culture - Preliminary Streptococcus agalactiae (B) 02/25/25 20:30 Blood Culture (Wb) - Venous Blood Culture - Preliminary Streptococcus agalactiae (B) 02/25/25 22:30 Mucosa - Nose Respiratory Panel (PCR) - Final 02/25/25 21:11 Mucosa - Nose SARS-CoV-2, Influenza & RSV (PCR) - Final Radiography Diagnostic Testing: Radiology Impression Echocardiogram 02/26/25 07:35 Interpretation Summary Normal left ventricular size. Mildly increased left ventricular wall thickness. Normal LVEF with estimated ejection fraction of 55 to 60%. No regional wall motion abnormalities. Indeterminate diastolic function due to elevated LA pressure secondary to mitral valve stenosis. Mildly increased right ventricular size, normal wall thickness, preserved function. Not well-visualized bioprosthetic valve. 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 Bileaflet diffuse mitral valve thickening with heavy calcification in the posterior mitral leaflet and mild mitral stenosis by Doppler measurements. Ordering Physician: Donnell Mendez Referring Physician: Abby Mcclellan Performed By: Jennifer Mays, RDCS, RVT Chest X-Ray 02/26/25 10:05 IMPRESSION: Lungs are hypoinflated, and examination is further limited by some degree of patient motion. No significant interval pneumonic process seen. No pleural effusion or pneumothorax is noted. The cardiomediastinal silhouette is stable, with a calcified and tortuous aorta noted. Aortic valvestent graft and left thoracic transvenous pacemaker with atrial and ventricular leads appear stable. No interval osseous change is noted. Reading Location: [facility]1 Chest X-Ray 02/26/25 11:20 IMPRESSION: The tip of the PICC line catheter is at the junction of the superior vena cava and right atrium. Reading Location: [id number] Physical Exam Const alert and oriented x3 Constitutional Narrative: flat affect HEENT normocephalic, head/scalp atraumatic, hearing grossly normal bilaterally and moist oral mucous membranes Eyes PERRL, EOMs intact bilaterally and conjunctivae normal Neck no lymphadenopathy, supple and no JVD Lymph Lymphatic: no lymphedema noted Resp Resp Narrative: Mildly diminished breath sounds bibasilarly. No wheezes or crackles. Now on room air. Cardio regular rhythm, S1 normal heart sound, S2 normal heart sound and no murmurs Cardio Narrative: Tachycardic GI normal to inspection, nondistended, normoactive bowel sounds, soft to palpation,non-tender and non-distended Extremity normal to inspection, full ROM, normal capillary refill and no clubbing, cyanosis or edema General Extremity: no tenderness to palpation of joints or extremities Skin General Skin Exam: no breakdown Neuro CN's II-XII intact bilaterally Neuro Narrative: alert, communicative today. Motor Exam: general weakness Psych thought process normal and cooperative Appearance: appropriate Assessment & Plan Assessment/Plan (1) Septic shock: (2) Metabolic encephalopathy: (3) Lactic acidosis: PLAN: Plan #Septic shock * Still remains febrile with temperature over one 112.9 Fahrenheit. Also on low- dose Levophed. On IV vancomycin and Zosyn. * Blood and urine cultures ordered. Currently NPO. Critical care on board. * Continue hydrating with IV fluids.]weaned off levophed * blood cultures growing Strep agalactiae in 1/2 samples. Urine cultures pending. #Acute encephalopathy likely due to septic shock: Management as above. Urine drug screen is negative. #Paroxysmal A-fib: Eliquis on hold. Currently on therapeutic Lovenox. Rate controlled #Benign essential hypertension: On losartan and metoprolol which are both on hold due to septic shock #Hyperlipidemia: On statin #History of heart block: s/p pacemaker #DVT prophylaxis: on lovenox therapeutic dose. CODE STATUS: * full code Charges/Coding Visit Charges Inpatient E&M: 22454 Subs Hosp L2 02/27/25 1445 Candis Willson MD Cosigner Signature (if applicable): CC: ~ Signed [facility]08-02-2025 Progress note Author Frank Hanson [facility] Note Date/Time February 27, 2025 10: 37am [facility] Medical Records Department [address] [place] [address] Progress Note - Director [employer] 02/27/25 1029 MR#: [id number] Acct: [id number] Name: JENNIFER GONZALEZ Rep #:[id number] : 1950 74 From: Frank Hanson MD PCP: Dr. Abby Mcclellan MD Status:AD M IN [facility] Data Objective Data Vital Signs: Vital Signs Last response 3 Temperature 37.8 C H 02/27/25 09:00 Temperature Source Core 02/27/25 09:00 Pulse Rate 117 H 02/27/25 08:00 Pulse Strength Normal (2+) 02/26/25 10:00 Respiratory Rate 24 H 02/27/25 08:00 Respiratory Effort Normal, Non-Labored 02/27/25 04:00 Respiratory Depth Normal 02/27/25 04:00 Respiratory Pattern Tachypnea 02/27/25 04:00 Blood Pressure 124/69 H 02/27/25 08:00 Blood Pressure Mean 87 02/27/25 08:00 Blood Pressure Source Monitor 02/27/25 08:00 Blood Pressure Position Supine 02/27/25 08:00 Blood Pressure Location Left Forearm 02/27/25 08:00 Pulse Ox 97 02/27/25 08:00 Oxygen Delivery Method Room Air 02/27/25 08:00 Oxygen Flow Rate (L/min) 2 02/27/25 04:00 I&O: I&O Last 24 Hours 3 02/26/25 02/26/25 02/27/25 11:59 23:59 11:59 Intake Total 4033.13 / 4875.98 842.85 / 4875.98 490 / 490 Output Total 250 / 1000 450 / 1000 700 / 700 Balance 3783.13 / 3875.98 392.85 / 3875.98 -210 / -210 I&O: Total Stay 3 02/25/25 20:40 thru 02/27/25 08:00 Intake Total 5365.98 Output Total 1400 Balance 3965.98 Current Meds Ordered / Administered: Current meds ordered / Administered 3 Generic Name Dose Route Start Last Admin Trade Name Freq PRN Reason Stop Dose Admin Acetaminophen 650 mg 02/26/25 10:05 02/27/25 10:25 Acetaminophen 325 Mg Tablet PO 650 mg Q4H PRN PRN Administration Pain 1-10 or Fever Amiodarone HCl 200 mg 02/27/25 10:00 02/27/25 09:55 Amiodarone 200 Mg Tablet PO 200 mg BID JESSE Administration Calcium/Vitamin D 1 tablet 02/26/25 22:00 02/27/25 09:54 Calcium Carb/Vitamin D 1 Tablet Tablet PO 1 tablet BID JESSE Administration Pantoprazole Sodium 40 mg/ 100 mls @ 330 mls/hr 02/26/25 00:46 02/26/25 22:04 Sodium Chloride IV Infused 2200 JESSE Infusion Piperacillin Sod/Tazobactam 50 mls @ 12.5 mls/hr 02/26/25 06:00 02/27/25 06:13 Sod 3.375 gm/ Sodium Chloride IV 12.5 mls/hr Q8 JESSE Administration Vancomycin IV-PHARMACY TO DOSE 500 mls @ 250 mls/hr 02/26/25 01:09 1 each/ Sodium Chloride IV PRN PRN Rx to Dose Protocol Sodium Chloride 250 mls @ 15 mls/hr 02/26/25 01:10 IV .[id number] PRN Saline Flush Sodium Chloride 250 mls @ 15 mls/hr 02/26/25 01:10 IV .[id number] PRN Additional IVPB Infusion Vancomycin HCl 1,000 mg/ 270 mls @ 250 mls/hr 02/26/25 12:00 02/27/25 02:16 Sodium Chloride IV Infused Q12H JESSE Infusion Norepinephrine Bitartrate 8 mg 250 mls @ 9.375 mls/hr 02/26/25 05:45 02/28/2508:32 / Sodium Chloride CONT INF Not Given .[id number] [facility] Protocol 5 MCG/MIN Insulin Human Lispro 0 unit 02/26/25 16:42 02/27/25 08:19 Insulin Lispro 100 Unit/Ml Insuln.Pen SC Not Given ACHS [facility] Protocol Ondansetron HCl 4 mg 02/26/25 01:09 Ondansetron 4 Mg/2 Ml Vial IV Q6H PRN PRN NAUSEA/VOMITING Sodium Chloride 10 - 40 ml 02/26/25 01:10 0.9% Saline Lock 10 Ml Syringe IV UD PRN SALINE FLUSH Vancomycin Protocol 1 lab 02/27/25 10:30 Vancomycin Trough/Random Due MC 02/27/25 12:30 DAILY JESSE Lab / Micro Data 02/27/25 08:40 02/27/25 08:40 Labs: Laboratory Results - last 24 hr 02/26/25 10:20: Troponin T Hi Sens 2 Hr 38 H 02/26/25 12:45: Troponin T Hi Sens 4Hr 41 H 02/26/25 17:31: POC Glucose 213 H 02/26/25 21:32: POC Glucose 213 H 02/27/25 08:04: POC Glucose 136 H 02/27/25 08:40: WBC 9.0, RBC 4.24, Hgb 13.2, Hct 39.2, MCV 92.5, MCH 31.1, MCHC 33.7, RDW Std Deviation 46.3 H, RDW Coeff of Yovany 13.5, Plt Count 63 L, MPV 11.8,Immature Gran % (Auto) 1.100 H, Neut % (Auto) 73.8 H, Lymph % (Auto) 18.6 L, Parker % (Auto) 5.5, Eos % (Auto) 0.4, Baso % (Auto) 0.6, Absolute Neuts (auto) 6.7, Absolute Lymphs (auto) 1.68, Nucleated RBC % 0, Sodium 137, Potassium 3.6, Chloride 108, Carbon Dioxide 18.8 L, Anion Gap 11, BUN 19, Creatinine 0.86, Estim Creat Clear Calc 63.73, Est GFR (MDRD) Non-Af 70, BUN/Creatinine Ratio 21.6 H, Glucose 156 H, Calcium 8.4 Micro: Microbiology 02/25/25 21:25 Blood Culture (Wb) - Left Hand Bacteria Detection (PCR) - Final Streptococcus agalactiae (B) 02/25/25 21:25 Blood Culture (Wb) - Left Hand Blood Culture - Preliminary Streptococcus agalactiae (B) 02/25/25 20:30 Blood Culture (Wb) - Venous Blood Culture - Preliminary Streptococcus agalactiae (B) 02/25/25 22:30 Mucosa - Nose Respiratory Panel (PCR) - Final Imaging Radiology Impression Echocardiogram 02/26/25 07:35 Interpretation Summary Normal left ventricular size. Mildly increased left ventricular wall thickness. Normal LVEF with estimated ejection fraction of 55 to 60%. No regional wall motion abnormalities. Indeterminate diastolic function due to elevated LA pressure secondary to mitral valve stenosis. Mildly increased right ventricular size, normal wall thickness, preserved function. Not well-visualized bioprosthetic valve. 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 Bileaflet diffuse mitral valve thickening with heavy calcification in the posterior mitral leaflet and mild mitral stenosis by Doppler measurements. Ordering Physician: Donnell eMndez Referring Physician: Abby Mcclellan Performed By: Jennifer Mays, LYNN, RVT Chest X-Ray 02/26/25 10:05 IMPRESSION: Lungs are hypoinflated, and examination is further limited by some degree of patient motion. No significant interval pneumonic process seen. No pleural effusion or pneumothorax is noted. The cardiomediastinal silhouette is stable, with a calcified and tortuous aorta noted. Aortic valve stent graft and left thoracic transvenous pacemaker with atrial and ventricular leads appear stable. No interval osseous change is noted. Reading Location: [facility] Chest X-Ray 02/26/25 11:20 IMPRESSION: The tip of the PICC line catheter is at the junction of the superior vena cava and right atrium. Reading Location: [id number] Assessment and Plan . Assessment and plan: IMPRESSIONS: 1. Septic shock - GPC bacteremia in setting of bioprosthetic AV, concern for endocarditis - low grade fevers continue - await culture ID/ sens. - ID consult following 2. Encephalopathy - reportedly normal MS earlier this AM - head CT negative 3. RVR atrial fibrillation - VR > 130s during my exam - hemodynamically tolerated - amiodarone drip -> PO x 1 this AM 3. Morbid obesity/hypertension/hyperlipidemia/diabetes mellitus/paroxysmal atrial fibrillation/history of complete heart block status post pacemaker placement/aortic valve stenosis status post TAVR Complicates care, management, recovery and prognosis. Continue to hold home antihypertensives. Will initiate sliding scale insulin coverage and Accu-Cheks. Continue amiodarone as ordered to address paroxysmal atrial fibrillation. While the patient was being maintained on Eliquis on an outpatient basis, if sheis not able to clear her sensorium enough to take in p.o. intake, she will require initiation of a heparin infusion. RECOMMENDATIONS: 1. Continue empiric antibiotics. 2. Continue Levophed to maintain mean arterial pressure at or above 65 mmHg. 3. trial of amiodarone 200 mg BID low threshold to resume IV drip if RVR remains uncontrolled. 4. ALEKSANDAR planned 03/01. 5. follow MS carefully low threshold for brain MRI. 6. clear liquid diet. Critical Care Time: 50 minutes The entirety of this encounter was done via Telemedicine Physical Exam Const alert and no apparent distress General Appearance: cooperative and comfortable HEENT normocephalic Eyes PERRL Neck full ROM Resp normal respiratory effort Cardio Rate: tachycardic Rhythm: abnormal rhythm Subjective Subjective Stable overnight, slept poorly. She seems slow/ groggy but nurse tells me she was sharp mentally earlier. 02/27/25 1037 <Electronically signed by Frank Hanson MD> Cosigner Signature (if applicable): CC: ~ Signed [facility] Work Phone: 1(330) 190-366108-02-2025 Progress note [facility] Medical Records Department [address] [place] [address] Progress Note - Director [employer] 02/27/25 1029 MR#: [id number] Acct: [id number] Name: JENNIFER GONZALEZ Rep #:[id number] : 1950 74 From: Frank Hanson MD PCP: Dr. Abby Mcclellan MD Status:AD M IN Location: ICU ICU05-1 Objective Data Objective Data Vital Signs: Vital Signs Last response 3 Temperature 37.8 C H 02/27/25 09:00 Temperature Source Core 02/27/25 09:00 Pulse Rate 117 H 02/27/25 08:00 Pulse Strength Normal (2+) 02/26/25 10:00 Respiratory Rate 24 H 02/27/25 08:00 Respiratory Effort Normal, Non-Labored 02/27/25 04:00 Respiratory Depth Normal 02/27/25 04:00 Respiratory Pattern Tachypnea 02/27/25 04:00 Blood Pressure 124/69 H 02/27/25 08:00 Blood Pressure Mean 87 02/27/25 08:00 Blood Pressure Source Monitor 02/27/25 08:00 Blood Pressure Position Supine 02/27/25 08:00 Blood Pressure Location Left Forearm 02/27/25 08:00 Pulse Ox 97 02/27/25 08:00 Oxygen Delivery Method Room Air 02/27/25 08:00 Oxygen Flow Rate (L/min) 2 02/27/25 04:00 I&O: I&O Last 24 Hours 3 02/26/25 02/26/25 02/27/25 11:59 23:59 11:59 Intake Total 4033.13 / 4875.98 842.85 / 4875.98 490 / 490 Output Total 250 / 1000 450 / 1000 700 / 700 Balance 3783.13 / 3875.98 392.85 / 3875.98 -210 / -210 I&O: Total Stay 3 02/25/25 20:40 thru 02/27/25 08:00 Intake Total 5365.98 Output Total 1400 Balance 3965.98 Current Meds Ordered / Administered: Current meds ordered / Administered 3 Generic Name Dose Route Start Last Admin Trade Name Freq PRN Reason Stop Dose Admin Acetaminophen 650 mg 02/26/25 10:05 02/27/25 10:25 Acetaminophen 325 Mg Tablet PO 650 mg Q4H PRN PRN Administration Pain 1-10 or Fever Amiodarone HCl 200 mg 02/27/25 10:00 02/27/25 09:55 Amiodarone 200 Mg Tablet PO 200 mg BID JESSE Administration Calcium/Vitamin D 1 tablet 02/26/25 22:00 02/27/25 09:54 Calcium Carb/Vitamin D 1 Tablet Tablet PO 1 tablet BID JESSE Administration Pantoprazole Sodium 40 mg/ 100 mls @ 330 mls/hr 02/26/25 00:46 02/26/25 22:04 Sodium Chloride IV Infused 2200 JESSE Infusion Piperacillin Sod/Tazobactam 50 mls @ 12.5 mls/hr 02/26/25 06:00 02/27/25 06:13 Sod 3.375 gm/ Sodium Chloride IV 12.5 mls/hr Q8 JESSE Administration Vancomycin IV-PHARMACY TO DOSE 500 mls @ 250 mls/hr 02/26/25 01:09 1 each/ Sodium Chloride IV PRN PRN Rx to Dose Protocol Sodium Chloride 250 mls @ 15 mls/hr 02/26/25 01:10 IV .[id number] PRN Saline Flush Sodium Chloride 250 mls @ 15 mls/hr 02/26/25 01:10 IV .[id number] PRN Additional IVPB Infusion Vancomycin HCl 1,000 mg/ 270 mls @ 250 mls/hr 02/26/25 12:00 02/27/25 02:16 Sodium Chloride IV Infused Q12H JESSE Infusion Norepinephrine Bitartrate 8 mg 250 mls @ 9.375 mls/hr 02/26/25 05:45 02/28/2508:32 / Sodium Chloride CONT INF Not Given .[id number] [facility] Protocol 5 MCG/MIN Insulin Human Lispro 0 unit 02/26/25 16:42 02/27/25 08:19 Insulin Lispro 100 Unit/Ml Insuln.Pen SC Not Given ACHS [facility] Protocol Ondansetron HCl 4 mg 02/26/25 01:09 Ondansetron 4 Mg/2 Ml Vial IV Q6H PRN PRN NAUSEA/VOMITING Sodium Chloride 10 - 40 ml 02/26/25 01:10 0.9% Saline Lock 10 Ml Syringe IV UD PRN SALINE FLUSH Vancomycin Protocol 1 lab 02/27/25 10:30 Vancomycin Trough/Random Due 02/27/25 12:30 DAILY [facility] Lab / Micro Data 02/27/25 08:40 02/27/25 08:40 Labs: Laboratory Results - last 24 hr 02/26/25 10:20: Troponin T Hi Sens 2 Hr 38 H 02/26/25 12:45: Troponin T Hi Sens 4Hr 41 H 02/26/25 17:31: POC Glucose 213 H 02/26/25 21:32: POC Glucose 213 H 02/27/25 08:04: POC Glucose 136 H 02/27/25 08:40: WBC 9.0, RBC 4.24, Hgb 13.2, Hct 39.2, MCV 92.5, MCH 31.1, MCHC 33.7, RDW Std Deviation 46.3 H, RDW Coeff of Yovany 13.5, Plt Count 63 L, MPV 11.8,Immature Gran % (Auto) 1.100 H, Neut % (Auto) 73.8 H, Lymph % (Auto) 18.6 L, Parker % (Auto) 5.5, Eos % (Auto) 0.4, Baso % (Auto) 0.6, Absolute Neuts (auto) 6.7, Absolute Lymphs (auto) 1.68, Nucleated RBC % 0, Sodium 137, Potassium 3.6, Chloride 108, Carbon Dioxide 18.8 L, Anion Gap 11, BUN 19, Creatinine 0.86, Estim Creat Clear Calc 63.73, Est GFR (MDRD) Non-Af 70, BUN/Creatinine Ratio 21.6 H, Glucose 156 H, Calcium 8.4 Micro: Microbiology 02/25/25 21:25 Blood Culture (Wb) - Left Hand Bacteria Detection (PCR) - Final Streptococcus agalactiae (B) 02/25/25 21:25 Blood Culture (Wb) - Left Hand Blood Culture - Preliminary Streptococcus agalactiae (B) 02/25/25 20:30 Blood Culture (Wb) - Venous Blood Culture - Preliminary Streptococcus agalactiae (B) 02/25/25 22:30 Mucosa - Nose Respiratory Panel (PCR) - Final Imaging Radiology Impression Echocardiogram 02/26/25 07:35 Interpretation Summary Normal left ventricular size. Mildly increased left ventricular wall thickness. Normal LVEF with estimated ejection fraction of 55 to 60%. No regional wall motion abnormalities. Indeterminate diastolic function due to elevated LA pressure secondary to mitral valve stenosis. Mildly increased right ventricular size, normal wall thickness, preserved function. Not well-visualized bioprosthetic valve. 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 Bileaflet diffuse mitral valve thickening with heavy calcification in the posterior mitral leaflet and mild mitral stenosis by Doppler measurements. Ordering Physician: Donnell Mendez Referring Physician: Abby Mcclellan Performed By: Jennifer Mays, RDCS, RVT Chest X-Ray 02/26/25 10:05 IMPRESSION: Lungs are hypoinflated, and examination is further limited by some degree of patient motion. No significant interval pneumonic process seen. No pleural effusion or pneumothorax is noted. The cardiomediastinal silhouette is stable, with a calcified and tortuous aorta noted. Aortic valvestent graft and left thoracic transvenous pacemaker with atrial and ventricular leads appear stable. No interval osseous change is noted. Reading Location: [facility]-1 Chest X-Ray 02/26/25 11:20 IMPRESSION: The tip of the PICC line catheter is at the junction of the superior vena cava and right atrium. Reading Location: [id number] Assessment and Plan . Assessment and plan: IMPRESSIONS: 1. Septic shock - GPC bacteremia in setting of bioprosthetic AV, concern for endocarditis - low grade fevers continue - await culture ID/ sens. - ID consult following 2. Encephalopathy - reportedly normal MS earlier this AM - head CT negative 3. RVR atrial fibrillation - VR > 130s during my exam - hemodynamically tolerated - amiodarone drip -> PO x 1 this AM 3. Morbid obesity/hypertension/hyperlipidemia/diabetes mellitus/paroxysmal atrial fibrillation/history of complete heart block status post pacemaker placement/aortic valve stenosis status post TAVR Complicates care, management, recovery and prognosis. Continue to hold home antihypertensives. Willinitiate sliding scale insulin coverage and Accu-Cheks. Continue amiodarone as ordered to address paroxysmal atrial fibrillation. While the patient was being maintained on Eliquis on an outpatient basis, if sheis not able to clear her sensorium enough to take in p.o. intake, she will require initiation of a heparin infusion. RECOMMENDATIONS: 1. Continue empiric antibiotics. 2. Continue Levophed to maintain mean arterial pressure at or above 65 mmHg. 3. trial of amiodarone 200 mg BID low threshold to resume IV drip if RVR remains uncontrolled. 4. ALEKSANDAR planned 03/01. 5. follow MS carefully low threshold for brain MRI. 6. clear liquid diet. Critical Care Time: 50 minutes The entirety of this encounter was done via Telemedicine Physical Exam Const alert and no apparent distress General Appearance: cooperative and comfortable HEENT normocephalic Eyes PERRL Neck full ROM Resp normal respiratory effort Cardio Rate: tachycardic Rhythm: abnormal rhythm Subjective Subjective Stable overnight, slept poorly. She seems slow/ groggy but nurse tells me she was sharp mentally earlier. 02/27/25 1037 Cosigner Signature (if applicable): CC: ~ Signed [facility]08-01-2025 Progress note Author [facility] Note Date/Time February 26, 2025 4:2 9pm [facility] Medical Records Department [address] [place] [address] Progress Note 02/26/25 1259 MR#: [id number] Acct: [id number] Name: JENNIFER GONZALEZ Rep #:[id number] : 1950 74 From: Candis Willson MD PCP: Dr. Abby Mcclellan MD Status:AD M IN Location: ICU ICU05-1 Subjective Subjective Patient seen and examined. Patient is quite lethargic and still not really ableto answer any questions. I saw her with her nurse by bedside. Patient remains febrile and tachypneic. She is on 2 L of oxygen and on broad-spectrum antibiotics. Unable to do review of systems. Objective Data Objective Data Vital Signs: Vital Signs Temp Pulse Resp BP Pulse Ox O2 Del Method O2 Flow Rate 102.9 F H 92 36 H 124/75 H 98 Nasal Cannula 2 02/26/25 11:02/26/25 11:02/26/25 11:02/26/25 11:02/26/25 11:02/26/25 11:02/26/25 11:00 Oxygen Flow Rate (L/min) 2 Oxygen Delivery Method Nasal Cannula Weight: 241 lb 13.553 oz Body Mass Index (BMI) 47.5 Intake & Output: Intake and Output for Last 24 Hours 02/24/25 02/25/25 02/26/25 23:59 23:59 23:59 Intake Total 4233.13 / 4233.13 Output Total 450 / 450 Balance 3783.13 / 3783.13 Lab / Micro Data 02/26/25 04:51 02/26/25 04:51 Labs: Laboratory Results - last 24 hr 02/25/25 20:30: WBC 11.7 H, RBC 4.59, Hgb 14.3, Hct 42.3, MCV 92.2, MCH 31.2, MCHC 33.8, RDW Std Deviation 44.8 H, RDW Coeff of Yovany 13.2, Plt Count 115 L, MPV11.4, Immature Gran % (Auto) 0.600, Neut % (Auto) 89.7 H, Lymph % (Auto) 5.8 L, Parker % (Auto) 3.0, Eos % (Auto) 0.0, Baso % (Auto) 0.9, Absolute Neuts (auto) 10.5 H, Absolute Lymphs (auto) 0.68 L, Nucleated RBC % 0, PT 15.5 H, INR 1.2, APTT 30.0, Sodium 134, Potassium 4.5, Chloride 99, Carbon Dioxide 22.3, Anion Gap 13, BUN 22 H, Creatinine 1.06, Estim Creat Clear Calc 50.25, Est GFR (MDRD) Non-Af 54 L, BUN/Creatinine Ratio 20.8 H, Glucose 279 H, Calcium 9.6, Total Bilirubin 1.33 H, AST 21, ALT 27, Alkaline Phosphatase 65, Total Protein 6.7, Albumin 4.1, Globulin 2.6, Albumin/Globulin Ratio 1.5 02/25/25 20:50: Lactic Acid 2.2 H* 02/25/25 21:10: Urine Color Yellow, Urine Clarity Sl. Cloudy, Urine pH 7.0, Ur Specific Eckerty 1.005, Urine Protein 30 H, Urine Glucose (UA) 1000 H, Urine Ketones Negative, Urine Occult Blood 25 H, Urine Nitrite Negative, Urine Bilirubin Negative, Urine Urobilinogen Normal, Ur Leukocyte Esterase Negative, Urine RBC 0-5 SEEN, Urine WBC 0-5 SEEN, Ur Squamous Epith Cells 0-5 SEEN, Urine Bacteria 0 SEEN, Urine Mucus 0 SEEN 02/26/25 01:19: Lactic Acid 2.2 H*, Vitamin B12 378, Serum Folate 8.82, b-Hydroxybutyric mmol/L 0.4 H, TSH 1.010, Ethyl Alcohol < 10.1 02/26/25 01:30: Urine Opiates Screen NEGATIVE, U Buprenorphine Qual NEGATIVE, UrOxycodone Screen NEGATIVE, Urine Methadone Screen NEGATIVE, Urine Fentanyl Screen NEGATIVE, Ur Barbiturates Screen NEGATIVE, Ur Phencyclidine Scrn NEGATIVE, Ur Amphetamines Screen NEGATIVE, U Benzodiazepines Scrn NEGATIVE, Urine Cocaine Screen NEGATIVE, U Cannabinoids Screen NEGATIVE 02/26/25 04:51: WBC 11.3 H, RBC 3.99 L, Hgb 12.5, Hct 37.1, MCV 93.0, MCH 31.3, MCHC 33.7, RDW Std Deviation 45.2 H, RDW Coeff of Yovany 13.2, Plt Count 94 L, MPV 11.4, Immature Gran % (Auto) 1.700 H, Neut % (Auto) 90.0 H, Lymph % (Auto) 2.8 L, Parker % (Auto) 4.2, Eos % (Auto) 0.3, Baso % (Auto) 1.0, Absolute Neuts (auto) 10.2 H, Absolute Lymphs (auto) 0.31 L, Nucleated RBC % 0, Differential Comment SCANNED, Platelet Estimate MOD DEC, Sodium 137, Potassium 3.8, Chloride 105, Carbon Dioxide 19.1 L, Anion Gap 13, BUN 18, Creatinine 1.11, Estim Creat Clear Calc 48.45 L, Est GFR (MDRD) Non-Af 52 L, BUN/Creatinine Ratio 16.1, Glucose 263H, Hemoglobin A1c 8.6 H, Calcium 8.2, Total Bilirubin 1.86 H, AST 31, ALT 30, Alkaline Phosphatase 43, Total Protein 5.5 L, Albumin 3.5, Globulin 2.0 L, Albumin/Globulin Ratio 1.8, Triglycerides 100, Cholesterol 103, LDL Cholesterol,Calc 55, VLDL Cholesterol 20, HDL Cholesterol 28 L, Cholesterol/HDL Ratio 3.69 02/26/25 06:05: Lactic Acid 2.3 H* 02/26/25 08:15: Troponin T High Sens 31 H 02/26/25 10:20: Troponin T Hi Sens 2 Hr 38 H Micro: Microbiology 02/25/25 21:25 Blood Culture (Wb) - Left Hand Bacteria Detection (PCR) - Final Streptococcus agalactiae (B) 02/25/25 21:25 Blood Culture (Wb) - Left Hand Blood Culture - Preliminary 02/25/25 20:30 Blood Culture (Wb) - Venous Blood Culture - Preliminary 02/25/25 22:30 Mucosa - Nose Respiratory Panel (PCR) - Final 02/25/25 21:11 Mucosa - Nose SARS-CoV-2, Influenza & RSV (PCR) - Final ABG Data ABG results: ABG 02/26/25 02:32 Specimen Type ART Sample Site R Radial pH 7.45 Bicarbonate Actual 19.2 L Total CO2 20 Base Excess -5 L O2 Saturation 92 L ABG pCO2 27.6 L ABG pO2 61 L Javon Test Positive O2 Delivery Device Room Air Vent Mode Not entered Radiography Diagnostic Testing: Radiology Impression Brain CT 02/25/25 21:45 IMPRESSION: No acute intracranial findings Reading Location: [facility] Chest X-Ray 02/25/25 21:45 IMPRESSION: No acute chest findings. Reading Location: [facility] Chest/Abdomen/Pelvis CT 02/25/25 22:19 IMPRESSION: No acute chest abdomen or pelvic pathology. Reading Location: [facility] Chest X-Ray 02/26/25 10:05 IMPRESSION: Lungs are hypoinflated, and examination is further limited by some degree of patient motion. No significant interval pneumonic process seen. No pleural effusion or pneumothorax is noted. The cardiomediastinal silhouette is stable, with a calcified and tortuous aorta noted. Aortic valve stent graft and left thoracic transvenous pacemaker with atrial and ventricular leads appear stable. No interval osseous change is noted. Reading Location: [facility]-1 Physical Exam Const Constitutional Narrative: Patient able to mumble in response to questions but is very confused and lethargic. Orientation / Consciousness: confused and lethargic HEENT head/scalp atraumatic HEENT Narrative: Very dry lips and oral mucosa. Neck no lymphadenopathy and supple Lymph Lymphatic: no lymphedema noted Resp Resp Narrative: Tachypneic. Mildly diminished breath sounds bibasilarly. No wheezes or crackles. On 2 L of oxygen by nasal cannula. Cardio regular rate, regular rhythm, S1 normal heart sound, S2 normal heart sound and no murmurs GI normal to inspection, nondistended, normoactive bowel sounds, soft to palpation and non-tender Extremity normal capillary refill and no clubbing, cyanosis or edema General Extremity: no tenderness to palpation of joints or extremities Skin General Skin Exam: no breakdown Neuro Neuro Narrative: Confused, lethargic, moves all extremities spontaneously. Motor Exam: general weakness Assessment & Plan Assessment/Plan (1) Septic shock: (2) Metabolic encephalopathy: (3) Lactic acidosis: PLAN: Plan #Septic shock * Etiology is not clear. Still remains febrile with temperature over one 112.9 Fahrenheit. Also on low-dose Levophed. On IV vancomycin and Zosyn. * Blood and urine cultures ordered. Currently NPO. Critical care on board. * Continue hydrating with IV fluids. #Acute encephalopathy likely due to septic shock: Management as above. Urine drug screen is negative. #Paroxysmal A-fib: Eliquis on hold. Currently on therapeutic Lovenox. Rate controlled #Benign essential hypertension: On losartan and metoprolol which are both on hold due to septic shock #Hyperlipidemia: On statin #History of heart block: s/p pacemaker #DVT prophylaxis: on lovenox therapeutic dose. CODE STATUS: * Patient's counseled extensively about different types of CODE STATUS including full code, DNR CCA and DNR CCA. elects for her to be full code. * Total [id number] time 16 minutes. * Total time spent on evaluation and management of patient, reviewing chart and specialist notes, discussing plan with patient's , discussion with nursing and ancillary staff as well as documentation: 35 mins Charges/Coding Visit Charges Inpatient E&M: 39577 PROLNG IP/OBS E/M EA 15 MIN Procedures Hospitalists Procedures: 43885 Advncd Care Plan 30 Min 02/26/25 1149 <Electronically signed by Candis Willson MD> Candis Willson MD Cosigner Signature (if applicable): CC: ~ Signed [facility] Work Phone: 1(589) 457-455508-01-2025 Consult note Author Jesus Alberto Lopez [facility] Note Date/Time February 26, 2025 3:3 2pm [facility] Medical Records Department [address] [place] [address] Consultation - Infectious Dx 02/26/25 1524 MR#: [id number] Acct: [id number] Name: JENNIFER GONZALEZ Rep #:[id number] : 1950 74 From: Jesus Alberto kaiser MD PCP: Dr. Abby Mcclellan MD Status:AD M IN Location: ICU ICU05-1 Assessment & Plan Assessment/Plan (1) Septic shock: (2) Streptococcal bacteremia: PLAN: Feeling better. Unclear source of GBS in blood. CT chest/abd/pelvis showed no sign infection. No recent procedures and no focal symptoms. UA neg. TTE showed no vegetation. With h/o TAVR and pacer, will order ALEKSANDAR for 03/01. On empiric vanc/zosyn. If strep is the only growth, plan would be to narrow to ceftriaxone 2gm daily iv. Will follow, thank you HPI Consult Data Date of Consult: 02/26/25 HPI Narrative Reason for Consultation: bacteremia HPI Narrative: JENNIFER GONZALEZ, is a 74 F with h/o TAVR 04/06/2024 and pacer, DM, presented to ED 02/25 with one day h/o altered mental status. No recent illnesses, no new procedures or dental work. Had fever and taken to ED. Admitted to icu on vanc/zosyn. Now bcx with strep. No abd pain, dysuria, rash, aches, congestion,cough, or dyspnea. Family at bedside, she is feeling better. Full ROS performed and neg except as noted above. [facility] Medical History Intermittent complete heart [...] calcification Diabetes type 2, uncontrolled Morbid obesity Home Medications ?Medication ?Instructions ?Recorded ?Last Taken ?Type metoprolol succinate 25 mg 25 mg PO DAILY bp 06/01/24 Unknown History tablet,extended release 24 hr metformin 500 mg tablet 500 mg PO BID diabetes 06/02 Unknown History apixaban 5 mg tablet (Eliquis) 5 mg PO BID #180 tabs 0 02/08/25 Unknown Rx [place] 3 Fish OiL PO BID supplment 02/26/25 Un known History blood sugar diagnostic (Accu-Chek 02/26/25 Unknown Hi story Guide test strips) blood-glucose meter (Accu-Chek 02/26/25 Unknown Histo ry Guide Me Glucose Meter) calcium 600 mg (as 1 tab PO BID supplement 08/22 Unknown History carbonate)-vitamin D3 5 mcg (200 unit) tablet (Calcium 600 + D(3)) glimepiride 4 mg tablet 4 mg PO BID diabetes 5 Unknown History glucosamine sulfate 500 mg tablet 1,000 mg PO DAILY butterfield pplement 02/26/25 Unknown History (Glucosamine) semaglutide 0.25 mg or 0.5 mg (2 0.5 mg subcut QWEEK d iabetes 02/26/25 Unknown History mg/3 mL) subcutaneous pen injector (Ozempic) Allergy/AdvReac Type Severity Reaction Status Date / Time atorvastatin (From Lipitor) Allergy Intermediate Rash Verified 02/08/25 10:33 Family History Father COPD (chronic obstructive pulmonary disease) CAD (coronary artery disease) Mother Cancer Breast cancer Surgical History History of right hip replacement (12/02/19) history left breast stereotactic biopsy (02/10/18) History of total right knee replacement (TKR) History of total left knee replacement (01/31/09) History of total hysterectomy History of appendectomy Social History Smoking Status: Never smoker second hand exposure: No alcohol intake: never substance use type: does not use caffeine: No what type of physical activity do you participate in: none frequency: does not exercise seatbelt use: always Physical Exam Const alert and no apparent distress General Appearance: cooperative HEENT normocephalic and head/scalp atraumatic Eyes PERRL and EOMs intact bilaterally Neck supple and No nodes Resp normal air movement and clear to auscultation bilaterally Cardio regular rate and regular rhythm GI soft to palpation, non-tender and non-distended Extremity General Extremity: edema Skin no rashes or lesions noted Skin Narrative: no splinter hemorrhages on hands or feet. No redness/tenderness over L chest pacer Neuro CN's II-XII intact bilaterally Medical Records Data Attestation: I reviewed the patient's medical records Lab / Micro Data 02/26/25 04:51 02/26/25 04:51 Labs: Laboratory Results - last 24 hr 02/25/25 20:30: WBC 11.7 H, RBC 4.59, Hgb 14.3, Hct 42.3, MCV 92.2, MCH 31.2, MCHC 33.8, RDW Std Deviation 44.8 H, RDW Coeff of Yovany 13.2, Plt Count 115 L, MPV11.4, Immature Gran % (Auto) 0.600, Neut % (Auto) 89.7 H, Lymph % (Auto) 5.8 L, Parker % (Auto) 3.0, Eos % (Auto) 0.0, Baso % (Auto) 0.9, Absolute Neuts (auto) 10.5 H, Absolute Lymphs (auto) 0.68 L, Nucleated RBC % 0, PT 15.5 H, INR 1.2, APTT 30.0, Sodium 134, Potassium 4.5, Chloride 99, Carbon Dioxide 22.3, Anion Gap 13, BUN 22 H, Creatinine 1.06, Estim Creat Clear Calc 50.25, Est GFR (MDRD) Non-Af 54 L, BUN/Creatinine Ratio 20.8 H, Glucose 279 H, Calcium 9.6, Total Bilirubin 1.33 H, AST 21, ALT 27, Alkaline Phosphatase 65, Total Protein 6.7, Albumin 4.1, Globulin 2.6, Albumin/Globulin Ratio 1.5 02/25/25 20:50: Lactic Acid 2.2 H* 02/25/25 21:10: Urine Color Yellow, Urine Clarity Sl. Cloudy, Urine pH 7.0, Ur Specific Eckerty 1.005, Urine Protein 30 H, Urine Glucose (UA) 1000 H, Urine Ketones Negative, Urine Occult Blood 25 H, Urine Nitrite Negative, Urine Bilirubin Negative, Urine Urobilinogen Normal, Ur Leukocyte Esterase Negative, Urine RBC 0-5 SEEN, Urine WBC 0-5 SEEN, Ur Squamous Epith Cells 0-5 SEEN, Urine Bacteria 0 SEEN, Urine Mucus 0 SEEN 02/26/25 01:19: Lactic Acid 2.2 H*, Vitamin B12 378, Serum Folate 8.82, b-Hydroxybutyric mmol/L 0.4 H, TSH 1.010, Ethyl Alcohol < 10.1 02/26/25 01:30: Urine Opiates Screen NEGATIVE, U Buprenorphine Qual NEGATIVE, UrOxycodone Screen NEGATIVE, Urine Methadone Screen NEGATIVE, Urine Fentanyl Screen NEGATIVE, Ur Barbiturates Screen NEGATIVE, Ur Phencyclidine Scrn NEGATIVE, Ur Amphetamines Screen NEGATIVE, U Benzodiazepines Scrn NEGATIVE, Urine Cocaine Screen NEGATIVE, U Cannabinoids Screen NEGATIVE 02/26/25 04:51: WBC 11.3 H, RBC 3.99 L, Hgb 12.5, Hct 37.1, MCV 93.0, MCH 31.3, MCHC 33.7, RDW Std Deviation 45.2 H, RDW Coeff of Yovany 13.2, Plt Count 94 L, MPV 11.4, Immature Gran % (Auto) 1.700 H, Neut % (Auto) 90.0 H, Lymph % (Auto) 2.8 L, Parker % (Auto) 4.2, Eos % (Auto) 0.3, Baso % (Auto) 1.0, Absolute Neuts (auto) 10.2 H, Absolute Lymphs (auto) 0.31 L, Nucleated RBC % 0, Differential Comment SCANNED, Platelet Estimate MOD DEC, Sodium 137, Potassium 3.8, Chloride 105, Carbon Dioxide 19.1 L, Anion Gap 13, BUN 18, Creatinine 1.11, Estim Creat Clear Calc 48.45 L, Est GFR (MDRD) Non-Af 52 L, BUN/Creatinine Ratio 16.1, Glucose 263H, Hemoglobin A1c 8.6 H, Calcium 8.2, Total Bilirubin 1.86 H, AST 31, ALT 30, Alkaline Phosphatase 43, Total Protein 5.5 L, Albumin 3.5, Globulin 2.0 L, Albumin/Globulin Ratio 1.8, Triglycerides 100, Cholesterol 103, LDL Cholesterol,Calc 55, VLDL Cholesterol 20, HDL Cholesterol 28 L, Cholesterol/HDL Ratio 3.69 02/26/25 06:05: Lactic Acid 2.3 H* 02/26/25 08:15: Troponin T High Sens 31 H 02/26/25 10:20: Troponin T Hi Sens 2 Hr 38 H 02/26/25 12:45: Troponin T Hi Sens 4Hr 41 H Micro: Microbiology 02/25/25 21:25 Blood Culture (Wb) - Left Hand Bacteria Detection (PCR) - Final Streptococcus agalactiae (B) 02/25/25 21:25 Blood Culture (Wb) - Left Hand Blood Culture - Preliminary 02/25/25 20:30 Blood Culture (Wb) - Venous Blood Culture - Preliminary 02/25/25 22:30 Mucosa - Nose Respiratory Panel (PCR) - Final 02/25/25 21:11 Mucosa - Nose SARS-CoV-2, Influenza & RSV (PCR) - Final ABG Data ABG results: ABG 02/26/25 02:32 Specimen Type ART Sample Site R Radial pH 7.45 Bicarbonate Actual 19.2 L Total CO2 20 Base Excess -5 L O2 Saturation 92 L ABG pCO2 27.6 L ABG pO2 61 L Javon Test Positive O2 Delivery Device Room Air Vent Mode Not entered Imaging Radiology Impression Brain CT 02/25/25 21:45 IMPRESSION: No acute intracranial findings Reading Location: [facility] Chest X-Ray 02/25/25 21:45 IMPRESSION: No acute chest findings. Reading Location: [facility] Chest/Abdomen/Pelvis CT 02/25/25 22:19 IMPRESSION: No acute chest abdomen or pelvic pathology. Reading Location: [facility] Echocardiogram 02/26/25 07:35 Interpretation Summary Normal left ventricular size. Mildly increased left ventricular wall thickness. Normal LVEF with estimated ejection fraction of 55 to 60%. No regional wall motion abnormalities. Indeterminate diastolic function due to elevated LA pressure secondary to mitral valve stenosis. Mildly increased right ventricular size, normal wall thickness, preserved function. Not well-visualized bioprosthetic valve. 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 Bileaflet diffuse mitral valve thickening with heavy calcification in the posterior mitral leaflet and mild mitral stenosis by Doppler measurements. Ordering Physician: Donnell Mendez Referring Physician: Abby Mcclellan Performed By: Jennifer Mays, RDCS, RVT Chest X-Ray 02/26/25 10:05 IMPRESSION: Lungs are hypoinflated, and examination is further limited by some degree of patient motion. No significant interval pneumonic process seen. No pleural effusion or pneumothorax is noted. The cardiomediastinal silhouette is stable, with a calcified and tortuous aorta noted. Aortic valve stent graft and left thoracic transvenous pacemaker with atrial and ventricular leads appear stable. No interval osseous change is noted. Reading Location: [facility] Chest X-Ray 02/26/25 11:20 IMPRESSION: The tip of the PICC line catheter is at the junction of the superior vena cava and right atrium. Reading Location: [id number] 02/26/25 1532 <Electronically signed by Jesus Alberto Lopez MD> Cosigner Signature (if applicable): CC: Dr. Abby Mcclellan MD~ Signed [facility] Work Phone: [phone] 329-600108-01-2025 Progress note [facility] Medical Records Department [address] [place] [address] Progress Note 02/26/25 1259 MR#: [id number] Acct: [id number] Name: JENNIFER GONZALEZ Rep #:[id number] : 1950 74 From: Candis Willson MD PCP: Dr. Abby Mcclellan MD Status:AD M IN Location: ICU ICU05-1 Subjective Subjective Patient seen and examined. Patient is quite lethargic and still not really ableto answer any questions. I saw her with her nurse by bedside. Patient remains febrile and tachypneic. She is on 2 L of oxygen and on broad-spectrum antibiotics. Unable to do review of systems. Objective Data Objective Data Vital Signs: Vital Signs Temp Pulse Resp BP Pulse Ox O2 Del Method O2 Flow Rate 102.9 F H 92 36 H 124/75 H 98 Nasal Cannula 2 02/26/25 11:00 02/26/25 11:00 02/26/25 11:00 02/26/25 11:00 02/26/25 11:00 02/26/25 11:00 02/26/25 11:00 Oxygen Flow Rate (L/min) 2 Oxygen Delivery Method Nasal Cannula Weight: 241 lb 13.553 oz Body Mass Index (BMI) 47.5 Intake & Output: Intake and Output for Last 24 Hours 02/24/25 02/25/25 02/26/25 23:59 23:59 23:59 Intake Total 4233.13 / 4233.13 Output Total 450 / 450 Balance 3783.13 / 3783.13 Lab / Micro Data 02/26/25 04:51 02/26/25 04:51 Labs: Laboratory Results - last 24 hr 02/25/25 20:30: WBC 11.7 H, RBC 4.59, Hgb 14.3, Hct 42.3, MCV 92.2, MCH 31.2, MCHC 33.8, RDW Std Deviation 44.8 H, RDW Coeff of Yovany 13.2, Plt Count 115 L, MPV11.4, Immature Gran % (Auto) 0.600, Neut % (Auto) 89.7 H, Lymph % (Auto) 5.8 L, Parker % (Auto) 3.0, Eos % (Auto) 0.0, Baso % (Auto) 0.9, Absolute Neuts (auto) 10.5 H, Absolute Lymphs (auto) 0.68 L, Nucleated RBC % 0, PT 15.5 H, INR 1.2, APTT 30.0, Sodium 134, Potassium 4.5, Chloride 99, Carbon Dioxide 22.3, Anion Gap 13, BUN 22 H, Creatinine 1.06, Estim Creat Clear Calc 50.25, Est GFR (MDRD) Non-Af 54 L, BUN/Creatinine Ratio 20.8 H, Glucose 279 H, Calcium 9.6, Total Bilirubin 1.33 H, AST 21, ALT 27, Alkaline Phosphatase 65, Total Protein 6.7, Albumin 4.1, Globulin 2.6, Albumin/Globulin Ratio 1.5 02/25/25 20:50: Lactic Acid 2.2 H* 02/25/25 21:10: Urine Color Yellow, Urine Clarity Sl. Cloudy, Urine pH 7.0, Ur Specific Eckerty 1.005, Urine Protein 30 H, Urine Glucose (UA) 1000 H, Urine Ketones Negative, Urine Occult Blood 25 H, Urine Nitrite Negative, Urine Bilirubin Negative, Urine Urobilinogen Normal, Ur Leukocyte Esterase Negative, Urine RBC 0-5 SEEN, Urine WBC 0-5 SEEN, Ur Squamous Epith Cells 0-5 SEEN, Urine Bacteria 0 SEEN, Urine Mucus 0 SEEN 02/26/25 01:19: Lactic Acid 2.2 H*, Vitamin B12 378, Serum Folate 8.82, b- Hydroxybutyric mmol/L 0.4H, TSH 1.010, Ethyl Alcohol < 10.1 02/26/25 01:30: Urine Opiates Screen NEGATIVE, U Buprenorphine Qual NEGATIVE, UrOxycodone Screen NEGATIVE, Urine Methadone Screen NEGATIVE, Urine Fentanyl Screen NEGATIVE, Ur Barbiturates Screen NEGATIVE, Ur Phencyclidine Scrn NEGATIVE, Ur Amphetamines Screen NEGATIVE, U Benzodiazepines Scrn NEGATIVE, Urine Cocaine Screen NEGATIVE, U Cannabinoids Screen NEGATIVE 02/26/25 04:51: WBC 11.3 H, RBC 3.99 L, Hgb 12.5, Hct 37.1, MCV 93.0, MCH 31.3, MCHC 33.7, RDW Std Deviation 45.2 H, RDW Coeff of Yovany 13.2, Plt Count 94 L, MPV 11.4, Immature Gran % (Auto) 1.700 H, Neut % (Auto) 90.0 H, Lymph % (Auto) 2.8 L, Parker % (Auto) 4.2, Eos % (Auto) 0.3, Baso % (Auto) 1.0, Absolute Neuts (auto) 10.2 H, Absolute Lymphs (auto) 0.31 L, Nucleated RBC % 0, Differential Comment S CANNED, Platelet Estimate MOD DEC, Sodium 137, Potassium 3.8, Chloride 105, Carbon Dioxide 19.1 L, Anion Gap 13, BUN 18, Creatinine 1.11, Estim Creat Clear Calc 48.45 L, Est GFR (MDRD) Non-Af 52 L, BUN/Creatinine Ratio 16.1, Glucose 263H, Hemoglobin A1c 8.6 H, Calcium 8.2, Total Bilirubin 1.86 H, AST 31, ALT 30, Alkaline Phosphatase 43, Total Protein 5.5 L, Albumin 3.5, Globulin 2.0 L, Albumin/Globulin Ratio 1.8, Triglycerides 100, Cholesterol 103, LDL Cholesterol,Calc 55, VLDL Cholesterol 20, HDL Cholesterol 28 L, Cholesterol/HDL Ratio 3.69 02/26/25 06:05: Lactic Acid 2.3 H* 02/26/25 08:15: Troponin T High Sens 31 H 02/26/25 10:20: Troponin T Hi Sens 2 Hr 38 H Micro: Microbiology 02/25/25 21:25 Blood Culture (Wb) - Left Hand Bacteria Detection (PCR) - Final Streptococcus agalactiae (B) 02/25/25 21:25 Blood Culture (Wb) - Left Hand Blood Culture - Preliminary 02/25/25 20:30 Blood Culture (Wb) - Venous Blood Culture - Preliminary 02/25/25 22:30 Mucosa - Nose Respiratory Panel (PCR) - Final 02/25/25 21:11 Mucosa - Nose SARS-CoV-2, Influenza & RSV (PCR) - Final ABG Data ABG results: ABG 02/26/25 02:32 Specimen Type ART Sample Site R Radial pH 7.45 Bicarbonate Actual 19.2 L Total CO2 20 Base Excess -5 L O2 Saturation 92 L ABG pCO2 27.6 L ABG pO2 61 L Javon Test Positive O2 Delivery Device Room Air Vent Mode Not entered Radiography Diagnostic Testing: Radiology Impression Brain CT 02/25/25 21:45 IMPRESSION: No acute intracranial findings Reading Location: [facility] Chest X-Ray 02/25/25 21:45 IMPRESSION: No acute chest findings. Reading Location: [facility] Chest/Abdomen/Pelvis CT 02/25/25 22:19 IMPRESSION: No acute chest abdomen or pelvic pathology. Reading Location: [facility] Chest X-Ray 02/26/25 10:05 IMPRESSION: Lungs are hypoinflated, and examination is further limited by some degree of patient motion. No significant interval pneumonic process seen. No pleural effusion or pneumothorax is noted. The cardiomediastinal silhouette is stable, with a calcified and tortuous aorta noted. Aortic valvestent graft and left thoracic transvenous pacemaker with atrial and ventricular leads appear stable. No interval osseous change is noted. Reading Location: [facility] Physical Exam Const Constitutional Narrative: Patient able to mumble in response to questions but is very confused and lethargic. Orientation / Consciousness: confused and lethargic HEENT head/scalp atraumatic HEENT Narrative: Very dry lips and oral mucosa. Neck no lymphadenopathy and supple Lymph Lymphatic: no lymphedema noted Resp Resp Narrative: Tachypneic. Mildly diminished breath sounds bibasilarly. No wheezes or crackles. On 2 L of oxygen by nasal cannula. Cardio regular rate, regular rhythm, S1 normal heart sound, S2 normal heart sound and no murmurs GI normal to inspection, nondistended, normoactive bowel sounds, soft to palpation and non-tender Extremity normal capillary refill and no clubbing, cyanosis or edema General Extremity: no tenderness to palpation of joints or extremities Skin General Skin Exam: no breakdown Neuro Neuro Narrative: Confused, lethargic, moves all extremities spontaneously. Motor Exam: general weakness Assessment & Plan Assessment/Plan (1) Septic shock: (2) Metabolic encephalopathy: (3) Lactic acidosis: PLAN: Plan #Septic shock * Etiology is not clear. Still remains febrile with temperature over one 112.9 Fahrenheit. Also on low-dose Levophed. On IV vancomycin and Zosyn. * Blood and urine cultures ordered. Currently NPO. Critical care on board. * Continue hydrating with IV fluids. #Acute encephalopathy likely due to septic shock: Management as above. Urine drug screen is negative. #Paroxysmal A-fib: Eliquis on hold. Currently on therapeutic Lovenox. Rate controlled #Benign essential hypertension: On losartan and metoprolol which are both on hold due to septic shock #Hyperlipidemia: On statin #History of heart block: s/p pacemaker #DVT prophylaxis: on lovenox therapeutic dose. CODE STATUS: * Patient's counseled extensively about different types of CODE STATUS including full code,DNR CCA and DNR CCA. elects for her to be full code. * Total [id number] time 16 minutes. * Total time spent on evaluation and management of patient, reviewing chart and specialist notes, discussing plan with patient's , discussion with nursing and ancillary staff as well as documentation: 35 mins Charges/Coding Visit Charges Inpatient E&M: 33504 PROLNG IP/OBS E/M EA 15 MIN Procedures Hospitalists Procedures: 61625 Advncd Care Plan 30 Min 02/26/25 1629 Candis Willson MD Cosigner Signature (if applicable): CC: ~ Signed [facility]08-01-2025 Consult note [facility] Medical Records Department [address] [place] [address] Consultation - Infectious Dx 02/26/25 1524 MR#: [id number] Acct: [id number] Name: JENNIFER GONZALEZ Rep #:[id number] : 1950 74 From: Jesus Alberto kaiser MD PCP: Dr. Abby Mcclellan MD Status:AD M IN Location: ICU ICU05-1 Assessment & Plan Assessment/Plan (1) Septic shock: (2) Streptococcal bacteremia: PLAN: Feeling better. Unclear source of GBS in blood. CT chest/abd/pelvis showed no sign infection.No recent procedures and no focal symptoms. UA neg. TTE showed no vegetation. With h/o TAVR and pacer, will order ALEKS[facility] for 03/01. On empiric vanc/zosyn. If strep is the only growth, plan would be to narrow to ceftriaxone 2gm daily iv. Will follow, thank you HPI Consult Data Date of Consult: 02/26/25 HPI Narrative Reason for Consultation: bacteremia HPI Narrative: JENNIFER GONZALEZ, is a 74 F with h/o TAVR 04/06/2024 and pacer, DM, presented to ED 02/25 with one day h/o altered mental status. No recent illnesses, no new procedures or dental work. Had fever and taken toED. Admitted to icu on vanc/zosyn. Now bcx with strep. No abd pain, dysuria, rash, aches, congestion ,cough, or dyspnea. Family at bedside, she is feeling better. Full ROS performed and neg except as noted above. [facility] Medical History Intermittent complete heart [...] calcification Diabetes type 2, uncontrolled Morbid obesity Home Medications ?Medication ?Instructions ?Recorded ?Last Taken ?Type metoprolol succinate 25 mg 25 mg PO DAILY bp 06/01/24 Unknown History tablet,extended release 24 hr metformin 500 mg tablet 500 mg PO BID diabetes 06/02 Unknown History apixaban 5 mg tablet (Eliquis) 5 mg PO BID #180 tabs 0 02/08/25 Unknown Rx [place] 3 Fish OiL PO BID supplment 02/26/25 Un known History blood sugar diagnostic (Accu-Chek 02/26/25 Unknown Hi story Guide test strips) blood-glucose meter (Accu-Chek 02/26/25 Unknown Histo ry Guide Me Glucose Meter) calcium 600 mg (as 1 tab PO BID supplement 08/22 Unknown History carbonate)-vitamin D3 5 mcg (200 unit) tablet (Calcium 600 + D(3)) glimepiride 4 mg tablet 4 mg PO BID diabetes 5 Unknown History glucosamine sulfate 500 mg tablet 1,000 mg PO DAILY butterfield pplement 02/26/25 Unknown History (Glucosamine) semaglutide 0.25 mg or 0.5 mg (2 0.5 mg subcut QWEEK d iabetes 02/26/25 Unknown History mg/3 mL) subcutaneous pen injector (Ozempic) Allergy/AdvReac Type Severity Reaction Status Date / Time atorvastatin (From Lipitor) Allergy Intermediate Rash Verified 02/08/25 10:33 Family History Father COPD (chronic obstructive pulmonary disease) CAD (coronary artery disease) Mother Cancer Breast cancer Surgical History History of right hip replacement (12/02/19) history left breast stereotactic biopsy (02/10/18) History of total right knee replacement (TKR) History of total left knee replacement (01/31/09) History of total hysterectomy History of appendectomy Social History Smoking Status: Never smoker second hand exposure: No alcohol intake: never substance use type: does not use caffeine: No what type of physical activity do you participate in: none frequency: does not exercise seatbelt use: always Physical Exam Const alert and no apparent distress General Appearance: cooperative HEENT normocephalic and head/scalp atraumatic Eyes PERRL and EOMs intact bilaterally Neck supple and No nodes Resp normal air movement and clear to auscultation bilaterally Cardio regular rate and regular rhythm GI soft to palpation, non-tender and non-distended Extremity General Extremity: edema Skin no rashes or lesions noted Skin Narrative: no splinter hemorrhages on hands or feet. No redness/tenderness over L chest pacer Neuro CN's II-XII intact bilaterally Medical Records Data Attestation: I reviewed the patient's medical records Lab / Micro Data 02/26/25 04:51 02/26/25 04:51 Labs: Laboratory Results - last 24 hr 02/25/25 20:30: WBC 11.7 H, RBC 4.59, Hgb 14.3, Hct 42.3, MCV 92.2, MCH 31.2, MCHC 33.8, RDW Std Deviation 44.8 H, RDW Coeff of Yovany 13.2, Plt Count 115 L, MPV11.4, Immature Gran % (Auto) 0.600, Neut % (Auto) 89.7 H, Lymph % (Auto) 5.8 L, Parker % (Auto) 3.0, Eos % (Auto) 0.0, Baso % (Auto) 0.9, Absolute Neuts (auto) 10.5 H, Absolute Lymphs (auto) 0.68 L, Nucleated RBC % 0, PT 15.5 H, INR 1.2, APTT 30.0, Sodium 134, Potassium 4.5, Chloride 99, Carbon Dioxide 22.3, Anion Gap 13, BUN 22 H, Creatinine 1.06, Estim Creat Clear Calc 50.25, Est GFR (MDRD) Non-Af 54 L, BUN/Creatinine Ratio 20.8 H, Glucose 279 H, Calcium 9.6, Total Bilirubin 1.33 H, AST 21, ALT 27, Alkaline Phosphatase 65, Total Protein 6.7, Albumin 4.1, Globulin 2.6, Albumin/Globulin Ratio 1.5 02/25/25 20:50: Lactic Acid 2.2 H* 02/25/25 21:10: Urine Color Yellow, Urine Clarity Sl. Cloudy, Urine pH 7.0, Ur Specific Eckerty 1.005, Urine Protein 30 H, Urine Glucose (UA) 1000 H, Urine Ketones Negative, Urine Occult Blood 25 H, Urine Nitrite Negative, Urine Bilirubin Negative, Urine Urobilinogen Normal, Ur Leukocyte Esterase Negative, Urine RBC 0-5 SEEN, Urine WBC 0-5 SEEN, Ur Squamous Epith Cells 0-5 SEEN, Urine Bacteria 0 SEEN, Urine Mucus 0 SEEN 02/26/25 01:19: Lactic Acid 2.2 H*, Vitamin B12 378, Serum Folate 8.82, b- Hydroxybutyric mmol/L 0.4H, TSH 1.010, Ethyl Alcohol < 10.1 02/26/25 01:30: Urine Opiates Screen NEGATIVE, U Buprenorphine Qual NEGATIVE, UrOxycodone Screen NEGATIVE, Urine Methadone Screen NEGATIVE, Urine Fentanyl Screen NEGATIVE, Ur Barbiturates Screen NEGATIVE, Ur Phencyclidine Scrn NEGATIVE, Ur Amphetamines Screen NEGATIVE, U Benzodiazepines Scrn NEGATIVE, Urine Cocaine Screen NEGATIVE, U Cannabinoids Screen NEGATIVE 02/26/25 04:51: WBC 11.3 H, RBC 3.99 L, Hgb 12.5, Hct 37.1, MCV 93.0, MCH 31.3, MCHC 33.7, RDW Std Deviation 45.2 H, RDW Coeff of Yovany 13.2, Plt Count 94 L, MPV 11.4, Immature Gran % (Auto) 1.700 H, Neut % (Auto) 90.0 H, Lymph % (Auto) 2.8 L, Parker % (Auto) 4.2, Eos % (Auto) 0.3, Baso % (Auto) 1.0, Absolute Neuts (auto) 10.2 H, Absolute Lymphs (auto) 0.31 L, Nucleated RBC % 0, Differential Comment S CANNED, Platelet Estimate MOD DEC, Sodium 137, Potassium 3.8, Chloride 105, Carbon Dioxide 19.1 L, Anion Gap 13, BUN 18, Creatinine 1.11, Estim Creat Clear Calc 48.45 L, Est GFR (MDRD) Non-Af 52 L, BUN/Creatinine Ratio 16.1, Glucose 263H, Hemoglobin A1c 8.6 H, Calcium 8.2, Total Bilirubin 1.86 H, AST 31, ALT 30, Alkaline Phosphatase 43, Total Protein 5.5 L, Albumin 3.5, Globulin 2.0 L, Albumin/Globulin Ratio 1.8, Triglycerides 100, Cholesterol 103, LDL Cholesterol,Calc 55, VLDL Cholesterol 20, HDL Cholesterol 28 L, Cholesterol/HDL Ratio 3.69 02/26/25 06:05: Lactic Acid 2.3 H* 02/26/25 08:15: Troponin T High Sens 31 H 02/26/25 10:20: Troponin T Hi Sens 2 Hr 38 H 02/26/25 12:45: Troponin T Hi Sens 4Hr 41 H Micro: Microbiology 02/25/25 21:25 Blood Culture (Wb) - Left Hand Bacteria Detection (PCR) - Final Streptococcus agalactiae (B) 02/25/25 21:25 Blood Culture (Wb) - Left Hand Blood Culture - Preliminary 02/25/25 20:30 Blood Culture (Wb) - Venous Blood Culture - Preliminary 02/25/25 22:30 Mucosa - Nose Respiratory Panel (PCR) - Final 02/25/25 21:11 Mucosa - Nose SARS-CoV-2, Influenza & RSV (PCR) - Final ABG Data ABG results: ABG 02/26/25 02:32 Specimen Type ART Sample Site R Radial pH 7.45 Bicarbonate Actual 19.2 L Total CO2 20 Base Excess -5 L O2 Saturation 92 L ABG pCO2 27.6 L ABG pO2 61 L Javon Test Positive O2 Delivery Device Room Air Vent Mode Not entered Imaging Radiology Impression Brain CT 02/25/25 21:45 IMPRESSION: No acute intracranial findings Reading Location: [place] [address] Chest X-Ray 02/25/25 21:45 IMPRESSION: No acute chest findings. Reading Location: [facility] Chest/Abdomen/Pelvis CT 02/25/25 22:19 IMPRESSION: No acute chest abdomen or pelvic pathology. Reading Location: [facility] Echocardiogram 02/26/25 07:35 Interpretation Summary Normal left ventricular size. Mildly increased left ventricular wall thickness. Normal LVEF with estimated ejection fraction of 55 to 60%. No regional wall motion abnormalities. Indeterminate diastolic function due to elevated LA pressure secondary to mitral valve stenosis. Mildly increased right ventricular size, normal wall thickness, preserved function. Not well-visualized bioprosthetic valve. 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 Bileaflet diffuse mitral valve thickening with heavy calcification in the posterior mitral leaflet and mild mitral stenosis by Doppler measurements. Ordering Physician: Donnell Mendez Referring Physician: Abby Mcclellan Performed By: Jennifer Mays, RDCS, RVT Chest X-Ray 02/26/25 10:05 IMPRESSION: Lungs are hypoinflated, and examination is further limited by some degree of patient motion. No significant interval pneumonic process seen. No pleural effusion or pneumothorax is noted. The cardiomediastinal silhouette is stable, with a calcified and tortuous aorta noted. Aortic valvestent graft and left thoracic transvenous pacemaker with atrial and ventricular leads appear stable. No interval osseous change is noted. Reading Location: [facility] Chest X-Ray 02/26/25 11:20 IMPRESSION: The tip of the PICC line catheter is at the junction of the superior vena cava and right atrium. Reading Location: [facility] 02/26/25 1532 Cosigner Signature (if applicable): CC: Dr. Abby Mcclellan MD~ Signed [facility]08-01-2025 Radiology Diagnostic study note [facility] Imaging Services [address] [place] [address] CXR for Line Placement MR#: [id number] Acct: [id number] Name: JENNIFER GONZALEZ Rep #: [id number] : 1950 F 74 From: Jean Marie Malhotra MD PCP: Dr. Abby Mcclellan MD Status: AD M IN Study:CXR for Line Placement Date of Exam: 02/26/25 Exam# [id number] Ordering Dr: Durham DO PROCEDURE: CXR FOR LINE PLACEMENT 02/26/2025 REASON FOR EXAM: CONFIRM PICC LINE TECHNIQUE: CXR FOR LINE PLACEMENT COMPARISON: Prior study dated February 25, 2025. FINDINGS: A right-sided PICC line catheter has been placed with the tip at the junction ofthe superior vena cava and right atrium. EKG electrodes are seen. Vascular congestion and mild CHF. Degenerative changes of the shoulder joints. RAD/CXR for Line Placement IMPRESSION: The tip of the PICC line catheter is at the junction of the superior vena cava and right atrium. Reading Location: [facility] CC: Dr. Donnell Mendez DO; Dr. Abby Mcclellan MD ~ Hand I Thermal Cutter: Signed [facility]08-01-2025 Consult note Author Donnell Mendez [facility] Note Date/Time February 26, 2025 11: 13am [facility] Medical Records Department [address] [place] [address] Consultation - Director [employer] 02/26/25 0709 MR#: [id number] Acct: [id number] Name: JENNIFER GONZALEZ Rep #:[id number] : 1950 74 From: Donnell Mendez DO PCP: Dr. Abby Mcclellan MD Status:AD M IN Location: ICU ICU05-1 Assessment & Plan Assessment/Plan (1) Septic shock: PLAN: Plan RECOMMENDATIONS: 1. Continue empiric antibiotics. 2. Continue Levophed to maintain mean arterial pressure at or above 65 mmHg. 3. Continue amiodarone as ordered. 4. Given positive blood cultures, will obtain echocardiogram. 5. Infectious diseases consultation. 6. Patient to remain n.p.o. for now pending improvement in mental status. IMPRESSIONS: 1. Septic shock The patient presented with sepsis due to gram-positive bacteremia with acute sepsis related organ dysfunction as evidenced by altered mental status and lactic acidemia. The patient did receive IV fluid resuscitation, but was ultimately placed on vasopressor support due to hemodynamic instability. Initial CT chest/abdomen/pelvis demonstrated no significant pathology. However,subsequent blood cultures were positive for gram-positive cocci. The patient does have a history of a TAVR with bioprosthetic aortic valve in place along with a pacemaker. Will obtain echocardiogram along with ID consultation. 2. Encephalopathy Most likely related to presenting sepsis. CT head was unremarkable. TSH is within normal limits. Continue supportive measures as noted above. 3. Morbid obesity/hypertension/hyperlipidemia/diabetes mellitus/paroxysmal atrial fibrillation/history of complete heart block status post pacemaker placement/aortic valve stenosis status post TAVR Complicates care, management, recovery and prognosis. Continue to hold home antihypertensives. Will initiate sliding scale insulin coverage and Accu-Cheks. Continue amiodarone as ordered to address paroxysmal atrial fibrillation. While the patient was being maintained on Eliquis on an outpatient basis, if sheis not able to clear her sensorium enough to take in p.o. intake, she will require initiation of a heparin infusion. TIME: 35 minutes of critical care time, independent of procedures, was spent addressing the patient's septic shock, encephalopathy, review of all data and collaboration with the care team. HPI Consult Data Date of Consult: 02/26/25 HPI Narrative Reason for Consultation: Sepsis HPI Narrative: The patient is a 74-year-old female, with a history as outlined below, who presented to the emergency department on February 25 with fever and altered mental status. History pertinent to the patient's hospitalization was obtained primarily via chart review, as the patient is too encephalopathic to provide anyadditional details. She does have a documented history that includes paroxysmalatrial fibrillation, valvular heart disease status post, history of intermittentheart block requiring pacemaker placement, diabetes mellitus and hypertension. She was last evaluated 2 weeks ago in the cardiology clinic. On presentation to the emergency department, the patient was documented to be febrile with a temperature of 103 ?F. She was also notably tachycardic and tachypneic. Presenting blood pressure was documented to be 121/73 mmHg. The patient was maintaining appropriate oxygen saturations on room air. Laboratory evaluation revealed a white blood cell count of 12,000. Platelet count was low at 115,000. Arterial blood gas was notable for a pH of 7.45 with a pCO2 of 27 and PO2 of 61. Chemistry profile was unremarkable, with the exception of a lactate of 2.2. Total bilirubin was noted to be 1.86. TSH was within normal limits. Urine analysis was negative for nitrites and leukocyte esterase. Toxicology screen, including alcohol level was negative. CT imaging of the chest/abdomen/pelvis was obtained without any discernible pathology identified. COVID, influenza and RSV PCR's were negative. The patient received supplementalIV fluid hydration and was initiated on antimicrobial therapy. She was admittedto the medical intensive care unit for further management. Overnight, the patient's hemodynamic status remains somewhat tenuous despite fluid resuscitation. The patient was ultimately placed on low-dose vasopressor support this morning to maintain hemodynamic stability. I also spoke with microbiology who indicated that the patient's blood cultures were all positive for gram-positive cocci in chains. [facility] Medical History Intermittent complete heart [...] calcification Diabetes type 2, uncontrolled Morbid obesity Home Medications ?Medication ?Instructions ?Recorded ?Last Taken ?Type calcium carbonate (Calcium 500) 500 mg PO DAILY supple ment 01/05/19 Unknown History glucosamine HCl 1,500 mg tablet 1,500 mg PO DAILY 03/30 04/17 Unknown History metoprolol succinate 25 mg 50 mg PO DAILY bp 06/01/24 Unknown History tablet,extended release 24 hr glimepiride 2 mg tablet 4 mg PO BID 06/02/24 Unknown History metformin 500 mg tablet 1,000 mg PO BID diabetes 12/19 Unknown History apixaban 5 mg tablet (Eliquis) 5 mg PO BID #180 tabs 0 02/08/25 Unknown Rx losartan 50 mg tablet 50 mg PO QDAY 02/08/25 Unkno wn History Allergy/AdvReac Type Severity Reaction Status Date / Time atorvastatin (From Lipitor) Allergy Intermediate Rash Verified 02/08/25 10:33 Family History Father COPD (chronic obstructive pulmonary disease) CAD (coronary artery disease) Mother Cancer Breast cancer Surgical History History of right hip replacement (12/02/19) history left breast stereotactic biopsy (02/10/18) History of total right knee replacement (TKR) History of total left knee replacement (01/31/09) History of total hysterectomy History of appendectomy Social History Smoking Status: Never smoker second hand exposure: No alcohol intake: never substance use type: does not use caffeine: No what type of physical activity do you participate in: none frequency: does not exercise seatbelt use: always ROS Review of Systems ROS Unobtainable: due to mental status Physical Exam Const Constitutional Narrative: The patient will arouse to verbal stimulation but is disoriented and confused. She is alert and oriented to person only. General Appearance: lethargic and ill appearing HEENT normocephalic and head/scalp atraumatic HEENT Narrative: Dry mucous membranes. Eyes PERRL, EOMs intact bilaterally and conjunctivae normal Neck supple General: trachea midline Chest inspection of chest normal Resp normal respiratory effort Effort and Inspection: tachypneic Auscultation: Negative for rales, rhonchi or wheezes Cardio regular rate and regular rhythm GI normal to inspection, nondistended, normoactive bowel sounds Extremity no clubbing, cyanosis or edema Skin no rashes or lesions noted Neuro CN's II-XII intact bilaterally and no focal motor deficits Psych Mood & Affect: flat affect Lab / Micro Data 02/26/25 04:51 02/26/25 04:51 Labs: Laboratory Results - last 24 hr 02/25/25 20:30: WBC 11.7 H, RBC 4.59, Hgb 14.3, Hct 42.3, MCV 92.2, MCH 31.2, MCHC 33.8, RDW Std Deviation 44.8 H, RDW Coeff of Yovany 13.2, Plt Count 115 L, MPV11.4, Immature Gran % (Auto) 0.600, Neut % (Auto) 89.7 H, Lymph % (Auto) 5.8 L, Parker % (Auto) 3.0, Eos % (Auto) 0.0, Baso % (Auto) 0.9, Absolute Neuts (auto) 10.5 H, Absolute Lymphs (auto) 0.68 L, Nucleated RBC % 0, PT 15.5 H, INR 1.2, APTT 30.0, Sodium 134, Potassium 4.5, Chloride 99, Carbon Dioxide 22.3, Anion Gap 13, BUN 22 H, Creatinine 1.06, Estim Creat Clear Calc 50.25, Est GFR (MDRD) Non-Af 54 L, BUN/Creatinine Ratio 20.8 H, Glucose 279 H, Calcium 9.6, Total Bilirubin 1.33 H, AST 21, ALT 27, Alkaline Phosphatase 65, Total Protein 6.7, Albumin 4.1, Globulin 2.6, Albumin/Globulin Ratio 1.5 02/25/25 20:50: Lactic Acid 2.2 H* 02/25/25 21:10: Urine Color Yellow, Urine Clarity Sl. Cloudy, Urine pH 7.0, Ur Specific Eckerty 1.005, Urine Protein 30 H, Urine Glucose (UA) 1000 H, Urine Ketones Negative, Urine Occult Blood 25 H, Urine Nitrite Negative, Urine Bilirubin Negative, Urine Urobilinogen Normal, Ur Leukocyte Esterase Negative, Urine RBC 0-5 SEEN, Urine WBC 0-5 SEEN, Ur Squamous Epith Cells 0-5 SEEN, Urine Bacteria 0 SEEN, Urine Mucus 0 SEEN 02/26/25 01:19: Lactic Acid 2.2 H*, Vitamin B12 378, Serum Folate 8.82, b-Hydroxybutyric mmol/L 0.4 H, TSH 1.010, Ethyl Alcohol < 10.1 02/26/25 01:30: Urine Opiates Screen NEGATIVE, U Buprenorphine Qual NEGATIVE, UrOxycodone Screen NEGATIVE, Urine Methadone Screen NEGATIVE, Urine Fentanyl Screen NEGATIVE, Ur Barbiturates Screen NEGATIVE, Ur Phencyclidine Scrn NEGATIVE, Ur Amphetamines Screen NEGATIVE, U Benzodiazepines Scrn NEGATIVE, Urine Cocaine Screen NEGATIVE, U Cannabinoids Screen NEGATIVE 02/26/25 04:51: WBC 11.3 H, RBC 3.99 L, Hgb 12.5, Hct 37.1, MCV 93.0, MCH 31.3, MCHC 33.7, RDW Std Deviation 45.2 H, RDW Coeff of Yovany 13.2, Plt Count 94 L, MPV 11.4, Immature Gran % (Auto) 1.700 H, Neut % (Auto) 90.0 H, Lymph % (Auto) 2.8 L, Parker % (Auto) 4.2, Eos % (Auto) 0.3, Baso % (Auto) 1.0, Absolute Neuts (auto) 10.2 H, Absolute Lymphs (auto) 0.31 L, Nucleated RBC % 0, Differential Comment SCANNED, Platelet Estimate MOD DEC, Sodium 137, Potassium 3.8, Chloride 105, Carbon Dioxide 19.1 L, Anion Gap 13, BUN 18, Creatinine 1.11, Estim Creat Clear Calc 48.45 L, Est GFR (MDRD) Non-Af 52 L, BUN/Creatinine Ratio 16.1, Glucose 263H, Calcium 8.2, Total Bilirubin 1.86 H, AST 31, ALT 30, Alkaline Phosphatase 43,Total Protein 5.5 L, Albumin 3.5, Globulin 2.0 L, Albumin/Globulin Ratio 1.8, Triglycerides 100, Cholesterol 103, LDL Cholesterol, Calc 55, VLDL Cholesterol 20, HDL Cholesterol 28 L, Cholesterol/HDL Ratio 3.69 Micro: Microbiology 02/25/25 20:30 Blood Culture (Wb) - Venous Blood Culture - Preliminary 02/25/25 21:11 Mucosa - Nose SARS-CoV-2, Influenza & RSV (PCR) - Final ABG Data ABG results: ABG 02/26/25 02:32 Specimen Type ART Sample Site R Radial pH 7.45 Bicarbonate Actual 19.2 L Total CO2 20 Base Excess -5 L O2 Saturation 92 L ABG pCO2 27.6 L ABG pO2 61 L Javon Test Positive O2 Delivery Device Room Air Vent Mode Not entered Imaging Radiology Impression Brain CT 02/25/25 21:45 IMPRESSION: No acute intracranial findings Reading Location: [facility] Chest X-Ray 02/25/25 21:45 IMPRESSION: No acute chest findings. Reading Location: [facility] Chest/Abdomen/Pelvis CT 02/25/25 22:19 IMPRESSION: No acute chest abdomen or pelvic pathology. Reading Location: [facility] Charges/Coding Procedures Hospitalists Procedures: 05731 Critical Care 1st Hr 02/26/25 1113 <Electronically signed by Donnell Mendez DO> Cosigner Signature (if applicable): CC: Dr. Abby Mcclellan MD~ Signed [facility] Work Phone: [phone] Consult note [facility] Medical Records Department [address] [place] [address] Consultation - Director [employer] 02/26/25 0709 MR#: [id number] Acct: [id number] Name: JENNIFER GONZALEZ Rep #:[id number] : 1950 74 From: Donnell Mendez DO PCP: Dr. Abby Mcclellan MD Status:AD M IN Location: ICU ICU05-1 Assessment & Plan Assessment/Plan (1) Septic shock: PLAN: Plan RECOMMENDATIONS: 1. Continue empiric antibiotics. 2. Continue Levophed to maintain mean arterial pressure at or above 65 mmHg. 3. Continue amiodarone as ordered. 4. Given positive blood cultures, will obtain echocardiogram. 5. Infectious diseases consultation. 6. Patient to remain n.p.o. for now pending improvement in mental status. IMPRESSIONS: 1. Septic shock The patient presented with sepsis due to gram-positive bacteremia with acute sepsis related organ dysfunction as evidenced by altered mental status and lactic acidemia. The patient did receive IV fluid resuscitation, but was ultimately placed on vasopressor support due to hemodynamic instability. Initial CT chest/abdomen/pelvis demonstrated no significant pathology. However,subsequent blood cultures were positive for gram-positive cocci. The patient does have a history of a TAVR with bioprosthetic aortic valve in place along with a pacemaker. Will obtain echocardiogram along with ID consultation. 2. Encephalopathy Most likely related to presenting sepsis. CT head was unremarkable. TSH is within normal limits. Continue supportive measures as noted above. 3. Morbid obesity/hypertension/hyperlipidemia/diabetes mellitus/paroxysmal atrial fibrillation/history of complete heart block status post pacemaker placement/aortic valve stenosis status post TAVR Complicates care, management, recovery and prognosis. Continue to hold home antihypertensives. Willinitiate sliding scale insulin coverage and Accu-Cheks. Continue amiodarone as ordered to address paroxysmal atrial fibrillation. While the patient was being maintained on Eliquis on an outpatient basis, if sheis not able to clear her sensorium enough to take in p.o. intake, she will require initiation of a heparin infusion. TIME: 35 minutes of critical care time, independent of procedures, was spent addressing the patient's septic shock, encephalopathy, review of all data and collaboration with the care team. HPI Consult Data Date of Consult: 02/26/25 HPI Narrative Reason for Consultation: Sepsis HPI Narrative: The patient is a 74-year-old female, with a history as outlined below, who presented to the emergency department on February 25 with fever and altered mental status. History pertinent to the patient's hospitalization was obtained primarily via chart review, as the patient is too encephalopathic to provide anyadditional details. She does have a documented history that includes paroxysmalatrial fibrillation, valvular heart disease status post, history of intermittentheart block requiring pacemaker placement, diabetes mellitus and hypertension. She was last evaluated 2 weeks ago in the cardiology clinic. On presentation to the emergency department, the patient was documented to be febrile with a temperature of 103 ?F. She was also notably tachycardic and tachypneic. Presenting blood pressure was documented to be 121/73 mmHg. The patient was maintaining appropriate oxygen saturations on room air. Laboratory evaluation revealed a white blood cell count of 12,000. Platelet count was low at 115,000. Arterial blood gas was notable for a pH of 7.45 with a pCO2 of 27 and PO2 of 61. Chemistry profile was unremarkable, with the exception of a lactate of 2.2. Total bilirubin was noted to be 1.86. TSH was within normal limits. Urine analysis was negative for nitrites and leukocyte esterase. Toxicologyscreen, including alcohol level was negative. CT imaging of the chest/abdomen/pelvis was obtained without any discernible pathology identified. COVID, influenza and RSV PCR's were negative. The patient received supplementalIV fluid hydration and was initiated on antimicrobial therapy. She was admittedto the medical intensive care unit for further management. Overnight, the patient's hemodynamic status remains somewhat tenuous despite fluid resuscitation. The patient was ultimately placed on low-dose vasopressor support this morning to maintain hemodynamic stability. I also spoke with microbiology who indicated that the patient's blood cultures were allpositive for gram-positive cocci in chains. [facility] Medical History Intermittent complete heart [...] calcification Diabetes type 2, uncontrolled Morbid obesity Home Medications ?Medication ?Instructions ?Recorded ?Last Taken ?Type calcium carbonate (Calcium 500) 500 mg PO DAILY supple ment 01/05/19 Unknown History glucosamine HCl 1,500 mg tablet 1,500 mg PO DAILY 03/30 04/17 Unknown History metoprolol succinate 25 mg 50 mg PO DAILY bp 06/01/24 Unknown History tablet,extended release 24 hr glimepiride 2 mg tablet 4 mg PO BID 06/02/24 Unknown History metformin 500 mg tablet 1,000 mg PO BID diabetes 12/19 Unknown History apixaban 5 mg tablet (Eliquis) 5 mg PO BID #180 tabs 0 02/08/25 Unknown Rx losartan 50 mg tablet 50 mg PO QDAY 02/08/25 Unkno wn History Allergy/AdvReac Type Severity Reaction Status Date / Time atorvastatin (From Lipitor) Allergy Intermediate Rash Verified 02/08/25 10:33 Family History Father COPD (chronic obstructive pulmonary disease) CAD (coronary artery disease) Mother Cancer Breast cancer Surgical History History of right hip replacement (12/02/19) history left breast stereotactic biopsy (02/10/18) History of total right knee replacement (TKR) History of total left knee replacement (01/31/09) History of total hysterectomy History of appendectomy Social History Smoking Status: Never smoker second hand exposure: No alcohol intake: never substance use type: does not use caffeine: No what type of physical activity do you participate in: none frequency: does not exercise seatbelt use: always ROS Review of Systems ROS Unobtainable: due to mental status Physical Exam Const Constitutional Narrative: The patient will arouse to verbal stimulation but is disoriented and confused. She is alert and oriented to person only. General Appearance: lethargic and ill appearing HEENT normocephalic and head/scalp atraumatic HEENT Narrative: Dry mucous membranes. Eyes PERRL, EOMs intact bilaterally and conjunctivae normal Neck supple General: trachea midline Chest inspection of chest normal Resp normal respiratory effort Effort and Inspection: tachypneic Auscultation: Negative for rales, rhonchi or wheezes Cardio regular rate and regular rhythm GI normal to inspection, nondistended, normoactive bowel sounds Extremity no clubbing, cyanosis or edema Skin no rashes or lesions noted Neuro CN's II-XII intact bilaterally and no focal motor deficits Psych Mood & Affect: flat affect Lab / Micro Data 02/26/25 04:51 02/26/25 04:51 Labs: Laboratory Results - last 24 hr 02/25/25 20:30: WBC 11.7 H, RBC 4.59, Hgb 14.3, Hct 42.3, MCV 92.2, MCH 31.2, MCHC 33.8, RDW Std Deviation 44.8 H, RDW Coeff of Yovany 13.2, Plt Count 115 L, MPV11.4, Immature Gran % (Auto) 0.600, Neut % (Auto) 89.7 H, Lymph % (Auto) 5.8 L, Parker % (Auto) 3.0, Eos % (Auto) 0.0, Baso % (Auto) 0.9, Absolute Neuts (auto) 10.5 H, Absolute Lymphs (auto) 0.68 L, Nucleated RBC % 0, PT 15.5 H, INR 1.2, APTT 30.0, Sodium 134, Potassium 4.5, Chloride 99, Carbon Dioxide 22.3, Anion Gap 13, BUN 22 H, Creatinine 1.06, Estim Creat Clear Calc 50.25, Est GFR (MDRD) Non-Af 54 L, BUN/Creatinine Ratio 20.8 H, Glucose 279 H, Calcium 9.6, Total Bilirubin 1.33 H, AST 21, ALT 27, Alkaline Phosphatase 65, Total Protein 6.7, Albumin 4.1, Globulin 2.6, Albumin/Globulin Ratio 1.5 02/25/25 20:50: Lactic Acid 2.2 H* 02/25/25 21:10: Urine Color Yellow, Urine Clarity Sl. Cloudy, Urine pH 7.0, Ur Specific Eckerty 1.005, Urine Protein 30 H, Urine Glucose (UA) 1000 H, Urine Ketones Negative, Urine Occult Blood 25 H, Urine Nitrite Negative, Urine Bilirubin Negative, Urine Urobilinogen Normal, Ur Leukocyte Esterase Negative, Urine RBC 0-5 SEEN, Urine WBC 0-5 SEEN, Ur Squamous Epith Cells 0-5 SEEN, Urine Bacteria 0 SEEN, Urine Mucus 0 SEEN 02/26/25 01:19: Lactic Acid 2.2 H*, Vitamin B12 378, Serum Folate 8.82, b- Hydroxybutyric mmol/L 0.4H, TSH 1.010, Ethyl Alcohol < 10.1 02/26/25 01:30: Urine Opiates Screen NEGATIVE, U Buprenorphine Qual NEGATIVE, UrOxycodone Screen NEGATIVE, Urine Methadone Screen NEGATIVE, Urine Fentanyl Screen NEGATIVE, Ur Barbiturates Screen NEGATIVE, Ur Phencyclidine Scrn NEGATIVE, Ur Amphetamines Screen NEGATIVE, U Benzodiazepines Scrn NEGATIVE, Urine Cocaine Screen NEGATIVE, U Cannabinoids Screen NEGATIVE 02/26/25 04:51: WBC 11.3 H, RBC 3.99 L, Hgb 12.5, Hct 37.1, MCV 93.0, MCH 31.3, MCHC 33.7, RDW Std Deviation 45.2 H, RDW Coeff of Yovany 13.2, Plt Count 94 L, MPV 11.4, Immature Gran % (Auto) 1.700 H, Neut % (Auto) 90.0 H, Lymph % (Auto) 2.8 L, Parker % (Auto) 4.2, Eos % (Auto) 0.3, Baso % (Auto) 1.0, Absolute Neuts (auto) 10.2 H, Absolute Lymphs (auto) 0.31 L, Nucleated RBC % 0, Differential Comment S CANNED, Platelet Estimate MOD DEC, Sodium 137, Potassium 3.8, Chloride 105, Carbon Dioxide 19.1 L, Anion Gap 13, BUN 18, Creatinine 1.11, Estim Creat Clear Calc 48.45 L, Est GFR (MDRD) Non-Af 52 L, BUN/Creatinine Ratio 16.1, Glucose 263H, Calcium 8.2, Total Bilirubin 1.86 H, AST 31, ALT 30, Alkaline Phosphatase 43,Total Protein 5.5 L, Albumin 3.5, Globulin 2.0 L, Albumin/Globulin Ratio 1.8, Triglycerides 100, Cholesterol 103, LDL Cholesterol, Calc 55, VLDL Cholesterol 20, HDL Cholesterol 28 L, Cholesterol/HDL Ratio 3.69 Micro: Microbiology 02/25/25 20:30 Blood Culture (Wb) - Venous Blood Culture - Preliminary 02/25/25 21:11 Mucosa - Nose SARS-CoV-2, Influenza & RSV (PCR) - Final ABG Data ABG results: ABG 02/26/25 02:32 Specimen Type ART Sample Site R Radial pH 7.45 Bicarbonate Actual 19.2 L Total CO2 20 Base Excess -5 L O2 Saturation 92 L ABG pCO2 27.6 L ABG pO2 61 L Javon Test Positive O2 Delivery Device Room Air Vent Mode Not entered Imaging Radiology Impression Brain CT 02/25/25 21:45 IMPRESSION: No acute intracranial findings Reading Location: [facility] Chest X-Ray 02/25/25 21:45 IMPRESSION: No acute chest findings. Reading Location: [facility] Chest/Abdomen/Pelvis CT 02/25/25 22:19 IMPRESSION: No acute chest abdomen or pelvic pathology. Reading Location: [facility] Charges/Coding Procedures Hospitalists Procedures: 05940 Critical Care 1st Hr 02/26/25 1113 Cosigner Signature (if applicable): CC: Dr. Abby Mcclellan MD~ Signed [facility]08-01-2025 Radiology Diagnostic study note [facility] Imaging Services [address] [place] [address] Chest 1 View (Portable) MR#: [id number] Acct: [id number] Name: JENNIFER GONZALEZ Rep #: [id number] : 1950 F 74 From: Madi Gomes MD PCP: Dr. Abby Mcclellan MD Status: AD M IN Study:Chest 1 View (Portable) Date of Exam: 02/26/25 Exam# [id number] Ordering Dr: Durham DO PROCEDURE: CHEST 1 VIEW (PORTABLE) 02/26/2025 REASON FOR EXAM: SHORTNESS OF BREATH TECHNIQUE: Frontal view of the chest. COMPARISON: Chest x-ray of 02/25/2025. RAD/Chest 1 View (Portable) IMPRESSION: Lungs are hypoinflated, and examination is further limited by some degree of patient motion. No significant interval pneumonic process seen. No pleural effusion or pneumothorax is noted. The cardiomediastinal silhouette is stable, with a calcified and tortuous aorta noted. Aortic valvestent graft and left thoracic transvenous pacemaker with atrial and ventricular leads appear stable. No interval osseous change is noted. Reading Location: [place] [address] CC: Dr. Donnell Mendez DO; Dr. Abby Mcclellan MD ~ Hand I Thermal Cutter: Signed [facility]08-01-2025 History and physical note Author Doug Alonso [facility] Note Date/Time February 26, 2025 5:4 5am [facility] Medical Records Department [address] [place] [address] H&P Exam - Hospitalist 02/26/25 0001 MR#: [id number] Acct: [id number] Name: JENNIFER GONZALEZ Rep #:[id number] : 1950 74 From: Doug Edgar DO PCP: Dr. Abby Mcclellan MD Status:AD M IN Location: ICU ICU05-1 HPI - General General Date of Admission: 02/26/25 Date of Service: 02/26/25 Chief Complaint: Fever and Confusion. HPI Narrative JENNIFER GONZALEZ, is a 74 F with a past medical history of essential hypertension on losartan and metoprolol, hyperlipidemia; with intolerance to atorvastatin (rash), morbid (class III) obesity; with BMI of 46.5 this admission, DM-2; of unknown control on glimepiride twice daily and metformin twice daily, history ofDKA, paroxysmal atrial fibrillation; on apixaban twice daily, history of intermittent complete heart block; s/p PPM (03/2024), history of RBBB, history ofSVT, history of nonrheumatic aortic valve stenosis with aortic valve calcification; s/p TAVR (03/2024), history of COVID-19 (2019), history of total hysterectomy, history of appendectomy, history of diverticulitis and OA; s/p Right THR (2019) and bilateral TKR's who presents to [facility] complaining of fever and confusion. Mrs. Gonzalez is not a fully-reliable historian at this time so information was gathered from chart, medical staff and computer. According to the records she was driving during the day of February 25, 2025 when her family noted she was confused causing them to activate EMS. The family had noted memory lapses but she has not no formal previous diagnosis of dementia. In the ER she was noted to have a fever of 103 ?F present on admission in addition to Leukocytosis of 11.7 K, Lactic acidosis of 2.2 mmol/L and persistent tachycardia of ~120 bpm allpresent on admission consistent with suspected Sepsis of unknown origin complicated by clinical evidence of Metabolic Encephalopathy possibly due at least in part to Adverse Drug Reaction to metformin with CT scan of the chest abdomen pelvis with IV contrast revealing no acute chest, abdomen or pelvic pathology and CXR that revealed no acute chest findings and head CT without contrast that revealed no acute intracranial findings. She was also noted to have moderate thrombocytopenia of 115 K present on admission and Hyperglycemia of 279 mg/dL present on admission with ABG and beta-hydroxybutyrate pending at this time. Her viral respiratory panel is still pending at this time. She was then admitted to the ICU for ongoing care under the Sepsis protocol for [facility] that is expected to extend beyond 2 midnights. [facility] Medical History Intermittent complete heart [...] calcification Diabetes type 2, uncontrolled Morbid obesity Home Medications ?Medication ?Instructions ?Recorded ?Last Taken ?Type calcium carbonate (Calcium 500) 500 mg PO DAILY supple ment 01/05/19 Unknown History glucosamine HCl 1,500 mg tablet 1,500 mg PO DAILY 03/30 04/17 Unknown History metoprolol succinate 25 mg 50 mg PO DAILY bp 06/01/24 Unknown History tablet,extended release 24 hr glimepiride 2 mg tablet 4 mg PO BID 06/02/24 Unknown History metformin 500 mg tablet 1,000 mg PO BID diabetes 12/19 Unknown History apixaban 5 mg tablet (Eliquis) 5 mg PO BID #180 tabs 0 02/08/25 Unknown Rx losartan 50 mg tablet 50 mg PO QDAY 02/08/25 Unkno wn History Allergy/AdvReac Type Severity Reaction Status Date / Time atorvastatin (From Lipitor) Allergy Intermediate Rash Verified 02/08/25 10:33 Family History Father COPD (chronic obstructive pulmonary disease) CAD (coronary artery disease) Mother Cancer Breast cancer Surgical History History of right hip replacement (12/02/19) history left breast stereotactic biopsy (02/10/18) History of total right knee replacement (TKR) History of total left knee replacement (01/31/09) History of total hysterectomy History of appendectomy Social History Smoking Status: Never smoker second hand exposure: No alcohol intake: never substance use type: does not use caffeine: No what type of physical activity do you participate in: none frequency: does not exercise seatbelt use: always ROS ROS Narrative Full review of systems was not possible due to patient's confusion. Vital Signs Vital Signs Vital Signs: 02/25/25 20:42 02/25/25 20:56 02/25/25 21:00 Temperature 103 F H Temperature Source Axillary Pulse Rate 129 H 128 H 131 H Respiratory Rate 30 H 23 H 27 H Blood Pressure 121/73 H Blood Pressure Mean 89 Pulse Ox 98 Oxygen Delivery Method Room Air 02/25/25 21:08 02/25/25 21:15 02/25/25 21:30 Temperature Temperature Source Pulse Rate 125 H 128 H Respiratory Rate 36 H 30 H Blood Pressure 149/80 H Blood Pressure Mean 103 Pulse Ox Oxygen Delivery Method Room Air 02/25/25 21:32 02/25/25 21:32 02/25/25 21:45 Temperature Temperature Source Pulse Rate 132 H 128 H Respiratory Rate 25 H 37 H Blood Pressure 143/131 H 143/131 H 149/128 H Blood Pressure Mean 137 137 137 Pulse Ox Oxygen Delivery Method 02/25/25 21:56 02/25/25 22:00 02/25/25 22:47 Temperature 103.2 F H 102.7 F H Temperature Source Axillary Oral Pulse Rate 124 H 123 H 115 H Respiratory Rate 27 H 28 H 26 H Blood Pressure 139/66 H 119/65 94/56 L Blood Pressure Mean 90 83 68 Pulse Ox 99 100 97 Oxygen Delivery Method Room Air Room Air Room Air 02/25/25 23:00 02/25/25 23:29 02/25/25 23:30 Temperature 101.1 F H 101.1 F H Temperature Source Axillary Oral Pulse Rate 119 H 118 H 127 H Respiratory Rate 28 H 29 H 23 H Blood Pressure 135/84 H 135/87 H 131/62 H Blood Pressure Mean 101 103 85 Pulse Ox 97 97 97 Oxygen Delivery Method Room Air Room Air Room Air 02/25/25 23:31 Temperature 101.1 F H Temperature Source Pulse Rate 119 H Respiratory Rate 29 H Blood Pressure 138/90 H Blood Pressure Mean 106 Pulse Ox 97 Oxygen Delivery Method Weight Weight: 238 lb 1.588 oz Body Mass Index (BMI) 46.5 Physical Exam Const Constitutional Narrative: Patient is confused and lethargic but arousable. Orientation / Consciousness: confused and lethargic HEENT normocephalic, head/scalp atraumatic, hearing grossly normal bilaterally and moist oral mucous membranes Eyes PERRL, EOMs intact bilaterally and conjunctivae normal Neck no lymphadenopathy, supple and no JVD Resp normal respiratory effort, no retractions, no use of accessory muscles and clearto auscultation bilaterally Cardio regular rate and regular rhythm Cardio Narrative: Tachycardia at ~130 bpm noted. GI normal to inspection, nondistended, normoactive bowel sounds, soft to palpation,non-tender and non-distended Extremity normal to inspection, full ROM and no clubbing, cyanosis or edema Skin Skin Narrative: Patient has evidence of rash, abscess, wounds or jaundice. Neuro Neuro Narrative: Patient cannot tell me her name, time or place. Psych Psych Narrative: Patient is lethargic and confused but arousable. Results Medical Records Data Attestation: I reviewed the patient's medical records Lab / Micro Data Attestation: I reviewed the patient's lab results. 02/26/25 04:51 02/25/25 20:30 Labs: Laboratory Results - last 24 hr 02/25/25 20:30: WBC 11.7 H, RBC 4.59, Hgb 14.3, Hct 42.3, MCV 92.2, MCH 31.2, MCHC 33.8, RDW Std Deviation 44.8 H, RDW Coeff of Yovany 13.2, Plt Count 115 L, MPV11.4, Immature Gran % (Auto) 0.600, Neut % (Auto) 89.7 H, Lymph % (Auto) 5.8 L, Parker % (Auto) 3.0, Eos % (Auto) 0.0, Baso % (Auto) 0.9, Absolute Neuts (auto) 10.5 H, Absolute Lymphs (auto) 0.68 L, Nucleated RBC % 0, PT 15.5 H, INR 1.2, APTT 30.0, Sodium 134, Potassium 4.5, Chloride 99, Carbon Dioxide 22.3, Anion Gap 13, BUN 22 H, Creatinine 1.06, Estim Creat Clear Calc 50.25, Est GFR (MDRD) Non-Af 54 L, BUN/Creatinine Ratio 20.8 H, Glucose 279 H, Calcium 9.6, Total Bilirubin 1.33 H, AST 21, ALT 27, Alkaline Phosphatase 65, Total Protein 6.7, Albumin 4.1, Globulin 2.6, Albumin/Globulin Ratio 1.5 02/25/25 20:50: Lactic Acid 2.2 H* 02/25/25 21:10: Urine Color Yellow, Urine Clarity Sl. Cloudy, Urine pH 7.0, Ur Specific Eckerty 1.005, Urine Protein 30 H, Urine Glucose (UA) 1000 H, Urine Ketones Negative, Urine Occult Blood 25 H, Urine Nitrite Negative, Urine Bilirubin Negative, Urine Urobilinogen Normal, Ur Leukocyte Esterase Negative, Urine RBC 0-5 SEEN, Urine WBC 0-5 SEEN, Ur Squamous Epith Cells 0-5 SEEN, Urine Bacteria 0 SEEN, Urine Mucus 0 SEEN Micro: Microbiology 02/25/25 21:11 Mucosa - Nose SARS-CoV-2, Influenza & RSV (PCR) - Final Imaging Radiology Impression Brain CT 02/25/25 21:45 IMPRESSION: No acute intracranial findings Reading Location: [place] [address] Chest X-Ray 02/25/25 21:45 IMPRESSION: No acute chest findings. Reading Location: [place] [address] Chest/Abdomen/Pelvis CT 02/25/25 22:19 IMPRESSION: No acute chest abdomen or pelvic pathology. Reading Location: [place] [address] Assessment & Plan Assessment/Plan (1) Sepsis due to undetermined organism: (2) Fever: QUALIFIERS: Fever type: unspecified Qualified Code(s): R50.9 - Fever, unspecified (3) Lactic acidosis: (4) Tachycardia: (5) Metabolic encephalopathy: (6) Adverse drug reaction: QUALIFIERS: Encounter type: initial encounter Qualified Code(s): T50.905A - Adverse effect of unspecified drugs, medicaments and biological substances, initial encounter (7) Hyperglycemia due to type 2 diabetes mellitus: QUALIFIERS: Diabetes mellitus director long term care insulin use: without director long term care use Qualified Code(s): E11.65 - Type 2 diabetes mellitus with hyperglycemia (8) Morbid obesity with BMI of 45.0-49.9, adult: (9) Thrombocytopenia: (10) Paroxysmal atrial fibrillation: (11) Chronic anticoagulation: PLAN: Plan 1. Fever of 103 ?F present on admission in addition to Leukocytosis of 11.7 K, Lactic acidosis of 2.2 mmol/L and persistent tachycardia of ~120 bpm all presenton admission consistent with suspected Sepsis of unknown origin - Admit to ICU for treatment under the sepsis protocol. Continue empiric IV piperacillin-tazobactam and IV vancomycin begun in ER and await culture and sensitivity data. Serialize lactate. Keep n.p.o. for now and give pantoprazole 40 mg IV daily for GI prophylaxis. Give ondansetron IV as needed for nausea and vomiting. Give acetaminophen as needed for pain or fever. 2. Metabolic Encephalopathy due to #1 - Check TSH, B12, Folate, HgbA1c, CAROLA andUDS to evaluate for potentially reversible causes of confusion. We will minimize potentially SENIOR AUDIT MANAGER-active medications in an effort to allow sensorium to clear. Otherwise, continue conservative treatment and monitor for improvement. 3. Suspected Adverse Drug Reaction to metformin contributing to or causing #1 &#2 - Hold metformin and monitor for improvement. 4. DM-2; of unknown control on glimepiride twice daily and metformin twice daily with Hyperglycemia of 279 mg/dL present on admission complicating #1 - #3 - Keep NPO as outlined in #1. Check FSBS q. 6 hours plus lowest-intensity SSI. Check HgbA1c to objectively evaluate quality of diabetic control. Check beta-hydroxybutyrate and ABG to evaluate for evidence of DKA with a known history of DKA. 5. Morbid (class III) obesity; with BMI of 46.5 this admission adding to the burden of disease outlined from #1 - #4 - Weight loss will be recommended when sensorium clears. Check TSH. This complicates her case and may hamper recovery. 6. Paroxysmal atrial fibrillation; on apixaban twice daily - Hold apixaban for now and cover with full-dose enoxaparin with patient unable to safely tolerate oral intake at this time. 7. Moderate Thrombocytopenia of 115K present on admission - Check CBC daily to follow trend. 8. Essential hypertension on losartan and metoprolol - Hold scheduled oral antihypertensives at this time in light of #1. 9. Hyperlipidemia; with intolerance to atorvastatin (rash) - Noted. Check Lipid Profile. 10. History of intermittent complete heart block; s/p PPM (03/2024) - Noted. 11. History of RBBB - Noted. 12. History of SVT - Noted. 13. History of nonrheumatic aortic valve stenosis with aortic valve calcification; s/p TAVR (03/2024) - Stable. 14. History of COVID-19 (2019) - Noted. 15. History of total hysterectomy - Noted for the sake of completeness. 16. History of appendectomy - Noted. 17. History of diverticulitis - Noted with no signs of recurrence on CT this admission. 18. OA; s/p Right THR (2019) and bilateral TKR's - Stable. 19. DVT/GI prophylaxis - Enoxaparin 100 mg sq x 1 plus SCD's. Pantoprazole 40 mg IV daily. Hold further enoxaparin if platelet count drops below 100K. Total time: Approximately (but not less than) 75 minutes. Update: Patient developed atrial fibrillation; with rapid ventricular response afew hours after arrival to ICU which was initially treated with digoxin 0.5 mg IV once. Patient then slowed down transiently and then she sped up to 130 bpm with a systolic blood pressure of ~80 mmHg therefore IV amiodarone infusion was ordered in addition to Levophed drip to keep MAP greater than 65 mmHg. BRUSH HAND was updated with plan. Sepsis Attestation Sepsis Alert: Yes Sepsis Attestation: Agree w/Sepsis Date exam was performed: 02/26/25 Time exam was performed: 00:45 Possible Source of Sepsis: Unknown Sepsis Organ Dysfunction Criteria Present: Lactic Acid > 2 mmol/L and New/Unexplained change in mental status Supportive Findings: In the ER she was noted to have a fever of 103 ?F present on admission in addition to Leukocytosis of 11.7 K, Lactic acidosis of 2.2 mmol/L and persistenttachycardia of ~120 bpm all present on admission consistent with suspected Sepsis of unknown origin complicated by clinical evidence of Metabolic Encephalopathy possibly due at least in part to Adverse Drug Reaction to metformin. Fluid Resuscitation Fluid resuscitation indicated?: Yes Fluid Resuscitation ordered: 30 ml/kg fluid bolus ordered Amount of fluid ordered: 2 Sepsis Note Date exam was performed: 02/26/25 Time exam was performed: 04:45 Sepsis Attestation: Sepsis re-evaluation was performed Response to fluids: Fluid responsive hypotension Charges/Coding Visit Charges Inpatient E&M: 74277 Init Hosp L3 02/26/25 0545 <Electronically signed by Doug Argueta DO> Cosigner Signature (if applicable): CC: Dr. Doug Argueta DO; Dr. Abby Mcclellan MD~ Signed [facility] Work Phone: [phone] [phone] History and physical note [facility] Medical Records Department [address] [place] [address] H&P Exam - Hospitalist 02/26/25 0001 MR#: [id number] Acct: [id number] Name: JENNIFER GONZALEZ Rep #:[id number] : 1950 74 From: Doug Edgar DO PCP: Dr. Abby Mcclellan MD Status:AD M IN Location: ICU ICU05-1 HPI - General General Date of Admission: 02/26/25 Date of Service: 02/26/25 Chief Complaint: Fever and Confusion. HPI Narrative JENNIFER GONZALEZ, is a 74 F with a past medical history of essential hypertension on losartan and metoprolol, hyperlipidemia; with intolerance to atorvastatin (rash), morbid (class III) obesity; with BMI of 46.5 this admission, DM-2; of unknown control on glimepiride twice daily and metformin twice daily, history ofDKA, paroxysmal atrial fibrillation; on apixaban twice daily, history of intermittent complete heart block; s/p PPM (03/2024), history of RBBB, history ofSVT, history of nonrheumatic aortic valve stenosis with aortic valve calcification; s/p TAVR (03/2024), history of COVID-19 (2019), history of total hysterectomy, history of appendectomy, history of diverticulitis and OA; s/p Right THR(2019) and bilateral TKR's who presents to [facility] complaining of fever and confusion. Mrs. Gonzalez is not a fully-reliable historian at this time so information was gathered from chart, medical staff and computer. According to the records she was driving during the day of February 25, 2025when her family noted she was confused causing them to activate EMS. The family had noted memory lapses but she has not no formal previous diagnosis of dementia. In the ER she was noted to have a fever of 103 ?F present on admission in addition to Leukocytosis of 11.7 K, Lactic acidosis of 2.2 mmol/L and persistent tachycardia of ~120 bpm allpresent on admission consistent with suspected Sepsis of unknown origin complicated by clinical evidence of Metabolic Encephalopathy possibly due at least in part to Adverse Drug Reaction to metformin with CT scan of the chest abdomen pelvis with IV contrast revealing no acute chest, abdomen or pelvic pathology and CXR that revealed no acute chest findings and head CT without contrast that revealed no acute intracranial findings. She was also noted tohave moderate thrombocytopenia of 115 K present on admission and Hyperglycemia of 279 mg/dL presenton admission with ABG and beta-hydroxybutyrate pending at this time. Her viral respiratory panel isstill pending at this time. She was then admitted to the ICU for ongoing care under the Sepsis protocol for [facility] that is expected to extend beyond 2 midnights. [facility] Medical History Intermittent complete heart [...] calcification Diabetes type 2, uncontrolled Morbid obesity Home Medications ?Medication ?Instructions ?Recorded ?Last Taken ?Type calcium carbonate (Calcium 500) 500 mg PO DAILY supple ment 01/05/19 Unknown History glucosamine HCl 1,500 mg tablet 1,500 mg PO DAILY 03/30 04/17 Unknown History metoprolol succinate 25 mg 50 mg PO DAILY bp 06/01/24 Unknown History tablet,extended release 24 hr glimepiride 2 mg tablet 4 mg PO BID 06/02/24 Unknown History metformin 500 mg tablet 1,000 mg PO BID diabetes 12/19 Unknown History apixaban 5 mg tablet (Eliquis) 5 mg PO BID #180 tabs 0 02/08/25 Unknown Rx losartan 50 mg tablet 50 mg PO QDAY 02/08/25 Unkno wn History Allergy/AdvReac Type Severity Reaction Status Date / Time atorvastatin (From Lipitor) Allergy Intermediate Rash Verified 02/08/25 10:33 Family History Father COPD (chronic obstructive pulmonary disease) CAD (coronary artery disease) Mother Cancer Breast cancer Surgical History History of right hip replacement (12/02/19) history left breast stereotactic biopsy (02/10/18) History of total right knee replacement (TKR) History of total left knee replacement (01/31/09) History of total hysterectomy History of appendectomy Social History Smoking Status: Never smoker second hand exposure: No alcohol intake: never substance use type: does not use caffeine: No what type of physical activity do you participate in: none frequency: does not exercise seatbelt use: always ROS ROS Narrative Full review of systems was not possible due to patient's confusion. Vital Signs Vital Signs Vital Signs: 02/25/25 20:42 02/25/25 20:56 02/25/25 21:00 Temperature 103 F H Temperature Source Axillary Pulse Rate 129 H 128 H 131 H Respiratory Rate 30 H 23 H 27 H Blood Pressure 121/73 H Blood Pressure Mean 89 Pulse Ox 98 Oxygen Delivery Method Room Air 02/25/25 21:08 02/25/25 21:15 02/25/25 21:30 Temperature Temperature Source Pulse Rate 125 H 128 H Respiratory Rate 36 H 30 H Blood Pressure 149/80 H Blood Pressure Mean 103 Pulse Ox Oxygen Delivery Method Room Air 02/25/25 21:32 02/25/25 21:32 02/25/25 21:45 Temperature Temperature Source Pulse Rate 132 H 128 H Respiratory Rate 25 H 37 H Blood Pressure 143/131 H 143/131 H 149/128 H Blood Pressure Mean 137 137 137 Pulse Ox Oxygen Delivery Method 02/25/25 21:56 02/25/25 22:00 02/25/25 22:47 Temperature 103.2 F H 102.7 F H Temperature Source Axillary Oral Pulse Rate 124 H 123 H 115 H Respiratory Rate 27 H 28 H 26 H Blood Pressure 139/66 H 119/65 94/56 L Blood Pressure Mean 90 83 68 Pulse Ox 99 100 97 Oxygen Delivery Method Room Air Room Air Room Air 02/25/25 23:00 02/25/25 23:29 02/25/25 23:30 Temperature 101.1 F H 101.1 F H Temperature Source Axillary Oral Pulse Rate 119 H 118 H 127 H Respiratory Rate 28 H 29 H 23 H Blood Pressure 135/84 H 135/87 H 131/62 H Blood Pressure Mean 101 103 85 Pulse Ox 97 97 97 Oxygen Delivery Method Room Air Room Air Room Air 02/25/25 23:31 Temperature 101.1 F H Temperature Source Pulse Rate 119 H Respiratory Rate 29 H Blood Pressure 138/90 H Blood Pressure Mean 106 Pulse Ox 97 Oxygen Delivery Method Weight Weight: 238 lb 1.588 oz Body Mass Index (BMI) 46.5 Physical Exam Const Constitutional Narrative: Patient is confused and lethargic but arousable. Orientation / Consciousness: confused and lethargic HEENT normocephalic, head/scalp atraumatic, hearing grossly normal bilaterally and moist oral mucous membranes Eyes PERRL, EOMs intact bilaterally and conjunctivae normal Neck no lymphadenopathy, supple and no JVD Resp normal respiratory effort, no retractions, no use of accessory muscles and clearto auscultation bilaterally Cardio regular rate and regular rhythm Cardio Narrative: Tachycardia at ~130 bpm noted. GI normal to inspection, nondistended, normoactive bowel sounds, soft to palpation,non-tender and non-distended Extremity normal to inspection, full ROM and no clubbing, cyanosis or edema Skin Skin Narrative: Patient has evidence of rash, abscess, wounds or jaundice. Neuro Neuro Narrative: Patient cannot tell me her name, time or place. Psych Psych Narrative: Patient is lethargic and confused but arousable. Results Medical Records Data Attestation: I reviewed the patient's medical records Lab / Micro Data Attestation: I reviewed the patient's lab results. 02/26/25 04:51 02/25/25 20:30 Labs: Laboratory Results - last 24 hr 02/25/25 20:30: WBC 11.7 H, RBC 4.59, Hgb 14.3, Hct 42.3, MCV 92.2, MCH 31.2, MCHC 33.8, RDW Std Deviation 44.8 H, RDW Coeff of Yovany 13.2, Plt Count 115 L, MPV11.4, Immature Gran % (Auto) 0.600, Neut % (Auto) 89.7 H, Lymph % (Auto) 5.8 L, Parker % (Auto) 3.0, Eos % (Auto) 0.0, Baso % (Auto) 0.9, Absolute Neuts (auto) 10.5 H, Absolute Lymphs (auto) 0.68 L, Nucleated RBC % 0, PT 15.5 H, INR 1.2, APTT 30.0, Sodium 134, Potassium 4.5, Chloride 99, Carbon Dioxide 22.3, Anion Gap 13, BUN 22 H, Creatinine 1.06, Estim Creat Clear Calc 50.25, Est GFR (MDRD) Non-Af 54 L, BUN/Creatinine Ratio 20.8 H, Glucose 279 H, Calcium 9.6, Total Bilirubin 1.33 H, AST 21, ALT 27, Alkaline Phosphatase 65, Total Protein 6.7, Albumin 4.1, Globulin 2.6, Albumin/Globulin Ratio 1.5 02/25/25 20:50: Lactic Acid 2.2 H* 02/25/25 21:10: Urine Color Yellow, Urine Clarity Sl. Cloudy, Urine pH 7.0, Ur Specific Eckerty 1.005, Urine Protein 30 H, Urine Glucose (UA) 1000 H, Urine Ketones Negative, Urine Occult Blood 25 H, Urine Nitrite Negative, Urine Bilirubin Negative, Urine Urobilinogen Normal, Ur Leukocyte Esterase Negative, Urine RBC 0-5 SEEN, Urine WBC 0-5 SEEN, Ur Squamous Epith Cells 0-5 SEEN, Urine Bacteria 0 SEEN, Urine Mucus 0 SEEN Micro: Microbiology 02/25/25 21:11 Mucosa - Nose SARS-CoV-2, Influenza & RSV (PCR) - Final Imaging Radiology Impression Brain CT 02/25/25 21:45 IMPRESSION: No acute intracranial findings Reading Location: [place] [address] Chest X-Ray 02/25/25 21:45 IMPRESSION: No acute chest findings. Reading Location: [place] [address] Chest/Abdomen/Pelvis CT 02/25/25 22:19 IMPRESSION: No acute chest abdomen or pelvic pathology. Reading Location: [place] [address] Assessment & Plan Assessment/Plan (1) Sepsis due to undetermined organism: (2) Fever: QUALIFIERS: Fever type: unspecified Qualified Code(s): R50.9 - Fever, unspecified (3) Lactic acidosis: (4) Tachycardia: (5) Metabolic encephalopathy: (6) Adverse drug reaction: QUALIFIERS: Encounter type: initial encounter Qualified Code(s): T50.905A - Adverse effect of unspecified drugs, medicaments and biological substances, initial encounter (7) Hyperglycemia due to type 2 diabetes mellitus: QUALIFIERS: Diabetes mellitus director long term care insulin use: without senior living use Qualified Code(s): E11.65 - Type 2 diabetes mellitus with hyperglycemia (8) Morbid obesity with BMI of 45.0-49.9, adult: (9) Thrombocytopenia: (10) Paroxysmal atrial fibrillation: (11) Chronic anticoagulation: PLAN: Plan 1. Fever of 103 ?F present on admission in addition to Leukocytosis of 11.7 K, Lactic acidosis of 2.2 mmol/L and persistent tachycardia of ~120 bpm all presenton admission consistent with suspected Sepsis of unknown origin - Admit to ICU for treatment under the sepsis protocol. Continue empiric IV p iperacillin-tazobactam and IV vancomycin begun in ER and await culture and sensitivity data. Serialize lactate. Keep n.p.o. for now and give pantoprazole 40 mg IV daily for GI prophylaxis. Give ondansetron IV as needed for nausea and vomiting. Give acetaminophen as needed for pain or fever. 2. Metabolic Encephalopathy due to #1 - Check TSH, B12, Folate, HgbA1c, CAROLA andUDS to evaluate for potentially reversible causes of confusion. We will minimize potentially SENIOR AUDIT MANAGER-active medications in an effort to allow sensorium to clear. Otherwise, continue conservative treatment and monitor for improvement. 3. Suspected Adverse Drug Reaction to metformin contributing to or causing #1 &#2 - Hold metformin and monitor for improvement. 4. DM-2; of unknown control on glimepiride twice daily and metformin twice daily with Hyperglycemiaof 279 mg/dL present on admission complicating #1 - #3 - Keep NPO as outlined in #1. Check FSBS q. 6 hours plus lowest-intensity SSI. Check HgbA1c to objectively evaluate quality of diabetic control.Check beta- hydroxybutyrate and ABG to evaluate for evidence of DKA with a known history of DKA. 5. Morbid (class III) obesity; with BMI of 46.5 this admission adding to the burden of disease outlined from #1 - #4 - Weight loss will be recommended when sensorium clears. Check TSH. This complicates her case and may hamper recovery. 6. Paroxysmal atrial fibrillation; on apixaban twice daily - Hold apixaban for now and cover with full-dose enoxaparin with patient unable to safely tolerate oral intake at this time. 7. Moderate Thrombocytopenia of 115K present on admission - Check CBC daily to follow trend. 8. Essential hypertension on losartan and metoprolol - Hold scheduled oral antihypertensives at this time in light of #1. 9. Hyperlipidemia; with intolerance to atorvastatin (rash) - Noted. Check Lipid Profile. 10. History of intermittent complete heart block; s/p PPM (03/2024) - Noted. 11. History of RBBB - Noted. 12. History of SVT - Noted. 13. History of nonrheumatic aortic valve stenosis with aortic valve calcification; s/p TAVR (03/2024) - Stable. 14. History of COVID-19 (2019) - Noted. 15. History of total hysterectomy - Noted for the sake of completeness. 16. History of appendectomy - Noted. 17. History of diverticulitis - Noted with no signs of recurrence on CT this admission. 18. OA; s/p Right THR (2019) and bilateral TKR's - Stable. 19. DVT/GI prophylaxis - Enoxaparin 100 mg sq x 1 plus SCD's. Pantoprazole 40 mg IV daily. Hold further enoxaparin if platelet count drops below 100K. Total time: Approximately (but not less than) 75 minutes. Update: Patient developed atrial fibrillation; with rapid ventricular response afew hours after arrival to ICU which was initially treated with digoxin 0.5 mg IV once. Patient then slowed down transiently and then she sped up to 130 bpm with a systolic blood pressure of ~80 mmHg therefore IV amiodarone infusion was ordered in addition to Levophed drip to keep MAP greater than 65 mmHg. BRUSH HAND was updated with plan. Sepsis Attestation Sepsis Alert: Yes Sepsis Attestation: Agree w/Sepsis Date exam was performed: 02/26/25 Time exam was performed: 00:45 Possible Source of Sepsis: Unknown Sepsis Organ Dysfunction Criteria Present: Lactic Acid > 2 mmol/L and New/Unexplained change in mental status Supportive Findings: In the ER she was noted to have a fever of 103 ?F present on admission in addition to Leukocytosis of 11.7 K, Lactic acidosis of 2.2 mmol/L and persistenttachycardia of ~120 bpm all present on admission consistent with suspected Sepsis of unknown origin complicated by clinical evidence of Metabolic Encephalopathy possibly due at least in part to Adverse Drug Reaction to metformin. Fluid Resuscitation Fluid resuscitation indicated?: Yes Fluid Resuscitation ordered: 30 ml/kg fluid bolus ordered Amount of fluid ordered: 2 Sepsis Note Date exam was performed: 02/26/25 Time exam was performed: 04:45 Sepsis Attestation: Sepsis re-evaluation was performed Response to fluids: Fluid responsive hypotension Charges/Coding Visit Charges Inpatient E&M: 57023 Init Hosp L3 02/26/25 0545 Cosigner Signature (if applicable): CC: Dr. Doug Argueta DO; Dr. Abby Mcclellan MD~ Signed [facility]08-01-2025 Consult note Author Jayson Ceja [facility] Note Date/Time February 26, 2025 1:3 4am [facility] Medical Records Department [address] [place] [address] Pharmacokinetic/Renal -Consult 02/26/25 0130 MR#: [id number] Acct: [id number] Name: FABRICIOJENNIFER A Rep #:[id number] : 1950 74 From: Jayson Ceja PCP: Dr. Abby Mcclellan MD Status:AD M IN Y Location: ICU ICU05-1 Consult Antibiotic Management Pharmacy has been consulted to manage selected antibiotic: Vancomycin Type of Intervention Type of Consult: New start Suspected Infection Suspected Infection: Sepsis Labs Labs: Sodium 134 mmol/L (133-145) 02/25/25 20:30 Potassium 4.5 mmol/L (3.3-5.1) 02/25/25 20:30 Chloride 99 mmol/L (98-108) 02/25/25 20:30 Carbon Dioxide 22.3 mmol/L (21.0-32.0) 02/25/25 20:30 Anion Gap 13 (5-15) 02/25/25 20:30 BUN 22 mg/dL (4-19) H 02/25/25 20:30 Creatinine 1.06 mg/dL (0.70-1.20) 02/25/25 20:30 Est GFR (MDRD) Non-Af 54 (>60) L 02/25/25 20:30 BUN/Creatinine Ratio 20.8 RATIO (10-20) H 02/25/25 20:30 Glucose 279 mg/dL (70-99) H 02/25/25 20:30 Microbiology Microbiology: Microbiology 02/25/25 21:11 Mucosa - Nose SARS-CoV-2, Influenza & RSV (PCR) - Final Dosing Weight Weight used for dosin kg Estimated Creatinine Clearance Estimated Creatinine Clearance: 50 Goal Trough Goal Trough: 15-20 mcg/mL Pharmacy Plan for Drug Dosing Pharmacy Plan for Drug Dosing: Pharmacy Service will continue to monitor and adjust dosing as required. Follow-Up Labs Follow-Up Labs: Trough: Vancomycin Date/Time Labs Ordered Labs to be done on [date and time ordered]: 02/27/25 @1130 02/26/25 0131 <Electronically signed by Jayson odell> Date _ Jayson Ceja 02/26/25 013 <Electronically signed by Doug Kendall DO> Cosigner Signature (if applicable): Date Doug Argueta DO CC: ~ Signed [facility] Work Phone: 1(478) 788-360008-01-2025 Discharge summary Author Epi Lynch [facility] Note Date/Time February 26, 2025 12: 29am [facility] Medical Records Department [address] [place] [address] Emergency Department Summary 02/25/25 MR#: [id number] Acct: [id number] Name: JENNIFER GONZALEZ Rep #:[id number] : 1950 74 From: Epi Devlin PCP: Dr. Abby Mcclellan MD Status:AD M IN Location: ICU ICU05-1 HPI History of Present Illness Chief Complaint: Confusion Informant: spouse/S.O., family and EMS Narrative Narrative: History of hypertension, SVT, paroxysmal atrial fibrillation, aortic sclerosis and mild stenosis. She is status post TAVR 04/06/2024. Patient had a pacemaker placed at that time as well secondary to intermittent complete heart block observed while hospitalized. Primary EMS increased altered mental status. Spouse and family present. Mary was driving earlier today however confused. Despite no cough unclear of anyvomiting. Spouse states at times will have memory lapse however no diagnosis dementia. From records she is on Eliquis for history of A-fib. On arrival she is confused she has a fever she is tachycardic. Blood pressure 121/73. [facility] Medical History Intermittent complete heart [...] calcification Diabetes type 2, uncontrolled Morbid obesity Home Medications ?Medication ?Instructions ?Recorded ?Last Taken ?Type calcium carbonate (Calcium 500) 500 mg PO DAILY supple ment 01/05/19 Unknown History glucosamine HCl 1,500 mg tablet 1,500 mg PO DAILY 03/30 04/17 Unknown History metoprolol succinate 25 mg 50 mg PO DAILY bp 06/01/24 Unknown History tablet,extended release 24 hr glimepiride 2 mg tablet 4 mg PO BID 06/02/24 Unknown History metformin 500 mg tablet 1,000 mg PO BID diabetes 12/19 Unknown History apixaban 5 mg tablet (Eliquis) 5 mg PO BID #180 tabs 0 02/08/25 Unknown Rx losartan 50 mg tablet 50 mg PO QDAY 02/08/25 Unkno wn History Allergy/AdvReac Type Severity Reaction Status Date / Time atorvastatin (From Lipitor) Allergy Intermediate Rash Verified 02/08/25 10:33 Family History Father COPD (chronic obstructive pulmonary disease) CAD (coronary artery disease) Mother Cancer Breast cancer Surgical History History of right hip replacement (12/02/19) history left breast stereotactic biopsy (02/10/18) History of total right knee replacement (TKR) History of total left knee replacement (01/31/09) History of total hysterectomy History of appendectomy Social History Smoking Status: Never smoker second hand exposure: No alcohol intake: never substance use type: does not use caffeine: No what type of physical activity do you participate in: none frequency: does not exercise seatbelt use: always ROS ROS ED Review of Systems ROS Unobtainable: due to mental status EXAM Physical Exam Const Vital Signs: 02/25/25 20:42 02/25/25 20:56 02/25/25 21:00 Temperature 103 F H Temperature Source Axillary Pulse Rate 129 H 128 H 131 H Respiratory Rate 30 H 23 H 27 H Blood Pressure 121/73 H Blood Pressure Mean 89 Pulse Ox 98 Oxygen Delivery Method Room Air 02/25/25 21:08 02/25/25 21:15 02/25/25 21:30 Temperature Temperature Source Pulse Rate 125 H 128 H Respiratory Rate 36 H 30 H Blood Pressure 149/80 H Blood Pressure Mean 103 Pulse Ox Oxygen Delivery Method Room Air 02/25/25 21:32 02/25/25 21:32 02/25/25 21:45 Temperature Temperature Source Pulse Rate 132 H 128 H Respiratory Rate 25 H 37 H Blood Pressure 143/131 H 143/131 H 149/128 H Blood Pressure Mean 137 137 137 Pulse Ox Oxygen Delivery Method 02/25/25 21:56 02/25/25 22:00 02/25/25 22:47 Temperature 103.2 F H 102.7 F H Temperature Source Axillary Oral Pulse Rate 124 H 123 H 115 H Respiratory Rate 27 H 28 H 26 H Blood Pressure 139/66 H 119/65 94/56 L Blood Pressure Mean 90 83 68 Pulse Ox 99 100 97 Oxygen Delivery Method Room Air Room Air Room Air 02/25/25 23:00 02/25/25 23:29 02/25/25 23:30 Temperature 101.1 F H 101.1 F H Temperature Source Axillary Oral Pulse Rate 119 H 118 H 127 H Respiratory Rate 28 H 29 H 23 H Blood Pressure 135/84 H 135/87 H 131/62 H Blood Pressure Mean 101 103 85 Pulse Ox 97 97 97 Oxygen Delivery Method Room Air Room Air Room Air 02/25/25 23:31 02/26/25 00:00 Temperature 101.1 F H 101.0 F H Temperature Source Axillary Pulse Rate 119 H 117 H Respiratory Rate 29 H 30 H Blood Pressure 138/90 H 131/62 H Blood Pressure Mean 106 85 Pulse Ox 97 100 Oxygen Delivery Method Room Air Positive well nourished and well developed Constitutional Narrative: Nontoxic however confused. Moving all 4 extremities. General Appearance ED: well developed HEENT Reports moist mucous membranes normocephalic and atraumatic Eyes General Eye ED: Yes normal appearance of both eyes Neck full ROM Chest Wall Chest: Negative for tenderness Resp normal respiratory effort and normal air movement Effort and Inspection: symmetric chest movement; Negative for respiratory distress Cardio regular rhythm and no murmurs Rate: tachycardic Peripheral Pulses: pulses 2+ throughout GI normal to inspection, nondistended, normoactive bowel sounds and non-tender Palpation: Negative for guarding or rebound tenderness present Extremity normal to inspection General Extremety ED: Negative for edema or tenderness General Extremity: Negative for edema Neuro Neuro Narrative: Patient tell me her name cannot tell me the place or time. Skin no rashes or lesions noted and no wounds Sepsis Attestation Sepsis Alert: Yes Sepsis Attestation: Agree w/Sepsis Date exam was performed: 02/25/25 Time exam was performed: 21:00 Possible Source of Sepsis: Unknown Sepsis Organ Dysfunction Criteria Present: Lactic Acid > 2 mmol/L Fluid Resuscitation Amount of fluid ordered: 2,000 Reason for lesser fluid bolus:: Concern for fluid overload Sepsis Note Date exam was performed: 02/26/25 Time exam was performed: 00:29 Sepsis Attestation: Sepsis re-evaluation was performed MDM MDM MDM Narrative Medical decision making narrative: Interventions / MDM: Differential diagnosis: Febrile illness, encephalopathy Diagnosis considered but do not suspect: Intra hemorrhage heart CT negative. UTI however urine negative. My EKG interpretation: Sinus tachycardia rate of 125, no ST changes, right bundle branch block. Imaging independently reviewed and interpreted by myself: CT brain: No intracranial hemorrhage. Will be chest x-ray: No acute process. External documents reviewed: N/A Test considered but not ordered:N/A ED course: Presentation confusion febrile tachycardic respirate noted 30s however she was not in any respiratory distress. Sepsis workup initial. She michael Eliquis for CT scan will be ordered. Nursing did cath for urine. Rectal Tylenol for her fever. 2218: CT negative chest x-ray labs white count 11.7. Lactic acid 2.2. Creatinine 1.06. Cath urine negative for infection. COVID flu RSV pending. Febrile illness unclear etiology at this time. I will add viral panel will obtain chest abdomen pelvis CT looking for potential source of infection. 2318: CT chest abdomen pelvis IV contrast returning negative. Viral panel pending. No clear etiology with her fever at this time. She is communicating however not baseline. Heart rate 120s blood pressure 120 in the room. Zosyn was started will add vancomycin febrile with unknown origin. Will discuss with hospitalist for admission. Symptomatic to the possibility of atrial flutter with her heart rate now improved with fluids. IV Lopressor x 1 was given. 0000: I spoke with hospitalist Dr. Grimm updated on the findings and workup. Fever of unknown origin tachycardia will place in the ICU. Re-evaluation: stable Disposition discussed with patient/family/significant other: Patient and family Case discussed with consulting clinician: Hospitalist This note was generated with [employer] dictation software. It may contain incorrectwords, spelling, and punctuation that were not noted in checking the note beforesigning. Lab Data Attestation: I reviewed the patient's lab results. Labs: Laboratory Results - last 24 hr 02/25/25 02/25/25 02/25/25 20:30 20:50 21:10 WBC 11.7 H RBC 4.59 Hgb 14.3 Hct 42.3 MCV 92.2 MCH 31.2 MCHC 33.8 RDW Std Deviation 44.8 H RDW Coeff of Yovany 13.2 Plt Count 115 L MPV 11.4 Immature Gran % (Auto) 0.600 Neut % (Auto) 89.7 H Lymph % (Auto) 5.8 L Parker % (Auto) 3.0 Eos % (Auto) 0.0 Baso % (Auto) 0.9 Absolute Neuts (auto) 10.5 H Absolute Lymphs (auto) 0.68 L Nucleated RBC % 0 PT 15.5 H INR 1.2 APTT 30.0 Sodium 134 Potassium 4.5 Chloride 99 Carbon Dioxide 22.3 Anion Gap 13 BUN 22 H Creatinine 1.06 Estim Creat Clear Calc 50.25 Est GFR (MDRD) Non-Af 54 L BUN/Creatinine Ratio 20.8 H Glucose 279 H Lactic Acid 2.2 H* Calcium 9.6 Total Bilirubin 1.33 H AST 21 ALT 27 Alkaline Phosphatase 65 Total Protein 6.7 Albumin 4.1 Globulin 2.6 Albumin/Globulin Ratio 1.5 Urine Color Yellow Urine Clarity Sl. Cloudy Urine pH 7.0 Ur Specific Eckerty 1.005 Urine Protein 30 H Urine Glucose (UA) 1000 H Urine Ketones Negative Urine Occult Blood 25 H Urine Nitrite Negative Urine Bilirubin Negative Urine Urobilinogen Normal Ur Leukocyte Esterase Negative Urine RBC 0-5 SEEN Urine WBC 0-5 SEEN Ur Squamous Epith Cells 0-5 SEEN Urine Bacteria 0 SEEN Urine Mucus 0 SEEN Radiography Diagnostic Testing: Clinical Impression(s) from Imaging Studies Brain CT 02/25/25 21:45 IMPRESSION: No acute intracranial findings Reading Location: [facility]- Chest X-Ray 02/25/25 21:45 IMPRESSION: No acute chest findings. Reading Location: [facility]- Chest/Abdomen/Pelvis CT 02/25/25 22:19 IMPRESSION: No acute chest abdomen or pelvic pathology. Reading Location: [place] [address] Critical Care Time Critical Care Time: Yes Critical care time (excluding procedures): 30-74 minutes, Discussing w/Patient &/or Family/Manufacturing Group Leader, Discussing w/Consultants, Arranging Admission or Transfer, Performing Direct Patient Care at Bedside and - (45 minutes) Discharge Plan Dx/Rx/DC Orders Clinical Impression: Fever, Presence of cardiac pacemaker, Encephalopathy, Acidosis, lactic, Chronicanticoagulation Disposition Disposition: Acute Care [facility] What to do if you have Problems For any increased pain, shortness of breath, bleeding, nausea or vomiting, chestpain, or any unexpected problems, contact your Primary Care Provider. Call [facility] ([phone]) or report to the closest Emergency Room. Call 911 if necessary. 02/26/25 0029 <Electronically signed by Epi Devlin> Cosigner Signature (if applicable): CC: Dr. Abby Mcclellan MD ~ Signed [facility] Work Phone: 1(265) 839-785608-01-2025 Consult note [facility] Medical Records Department [address] [place] [address] Pharmacokinetic/Renal -Consult 02/26/25129 MR#: [id number] Acct: [id number] Name: JENNIFER GONZALEZ Rep #:[id number] : 1950 74 From: Jayson Ceja PCP: Dr. Abby Mcclellan MD Status:AD M IN Y Location: ICU ICU05-1 Consult Antibiotic Management Pharmacy has been consulted to manage selected antibiotic: Vancomycin Type of Intervention Type of Consult: New start Suspected Infection Suspected Infection: Sepsis Labs Labs: Sodium 134 mmol/L (133-145) 02/25/25 20:30 Potassium 4.5 mmol/L (3.3-5.1) 02/25/25 20:30 Chloride 99 mmol/L (98-108) 02/25/25 20:30 Carbon Dioxide 22.3 mmol/L (21.0-32.0) 02/25/25 20:30 Anion Gap 13 (5-15) 02/25/25 20:30 BUN 22 mg/dL (4-19) H 02/25/25 20:30 Creatinine 1.06 mg/dL (0.70-1.20) 02/25/25 20:30 Est GFR (MDRD) Non-Af 54 (>60) L 02/25/25 20:30 BUN/Creatinine Ratio 20.8 RATIO (10-20) H 02/25/25 20:30 Glucose 279 mg/dL (70-99) H 02/25/25 20:30 Microbiology Microbiology: Microbiology 02/25/25 21:11 Mucosa - Nose SARS-CoV-2, Influenza & RSV (PCR) - Final Dosing Weight Weight used for dosin kg Estimated Creatinine Clearance Estimated Creatinine Clearance: 50 Goal Trough Goal Trough: 15-20 mcg/mL Pharmacy Plan for Drug Dosing Pharmacy Plan for Drug Dosing: Pharmacy Service will continue to monitor and adjust dosing as required. Follow-Up Labs Follow-Up Labs: Trough: Vancomycin Date/Time Labs Ordered Labs to be done on [date and time ordered]: 02/27/25 @1130 02/26/25130 ds> Date _ Jayson Ceja 02/26/25 0134 nzo DO> Cosigner Signature (if applicable): Date Doug Argueta DO CC: ~ Signed [facility]08-01-2025 Discharge summary [facility] Medical Records Department [address] [place] [address] Emergency Department Summary 02/25/25 MR#: [id number] Acct: [id number] Name: JENNIFER GONZALEZ Rep #:[id number] : 1950 74 From: Epi Devlin PCP: Dr. Abby Mcclellan MD Status:AD M IN Location: ICU ICU-1 HPI History of Present Illness Chief Complaint: Confusion Informant: spouse/S.O., family and EMS Narrative Narrative: History of hypertension, SVT, paroxysmal atrial fibrillation, aortic sclerosis and mild stenosis. She is status post TAVR 04/06/2024. Patient had a pacemaker placed at that time as well secondary to intermittent complete heart block observed while hospitalized. Primary EMS increased altered mental status. Spouse and family present. Mary was driving earlier today however confused. Despite no cough unclear of anyvomiting. Spouse states at times will havememory lapse however no diagnosis dementia. From records she is on Eliquis for history of A-fib. On arrival she is confused she has a fever she is tachycardic. Blood pressure 121/73. [facility] Medical History Intermittent complete heart [...] calcification Diabetes type 2, uncontrolled Morbid obesity Home Medications ?Medication ?Instructions ?Recorded ?Last Taken ?Type calcium carbonate (Calcium 500) 500 mg PO DAILY supple ment 01/05/19 Unknown History glucosamine HCl 1,500 mg tablet 1,500 mg PO DAILY 03/30 04/17 Unknown History metoprolol succinate 25 mg 50 mg PO DAILY bp 06/01/24 Unknown History tablet,extended release 24 hr glimepiride 2 mg tablet 4 mg PO BID 06/02/24 Unknown History metformin 500 mg tablet 1,000 mg PO BID diabetes 12/19 Unknown History apixaban 5 mg tablet (Eliquis) 5 mg PO BID #180 tabs 0 02/08/25 Unknown Rx losartan 50 mg tablet 50 mg PO QDAY 02/08/25 Unkno wn History Allergy/AdvReac Type Severity Reaction Status Date / Time atorvastatin (From Lipitor) Allergy Intermediate Rash Verified 02/08/25 10:33 Family History Father COPD (chronic obstructive pulmonary disease) CAD (coronary artery disease) Mother Cancer Breast cancer Surgical History History of right hip replacement (12/02/19) history left breast stereotactic biopsy (02/10/18) History of total right knee replacement (TKR) History of total left knee replacement (01/31/09) History of total hysterectomy History of appendectomy Social History Smoking Status: Never smoker second hand exposure: No alcohol intake: never substance use type: does not use caffeine: No what type of physical activity do you participate in: none frequency: does not exercise seatbelt use: always ROS ROS ED Review of Systems ROS Unobtainable: due to mental status EXAM Physical Exam Const Vital Signs: 02/25/25 20:42 02/25/25 20:56 02/25/25 21:00 Temperature 103 F H Temperature Source Axillary Pulse Rate 129 H 128 H 131 H Respiratory Rate 30 H 23 H 27 H Blood Pressure 121/73 H Blood Pressure Mean 89 Pulse Ox 98 Oxygen Delivery Method Room Air 02/25/25 21:08 02/25/25 21:15 02/25/25 21:30 Temperature Temperature Source Pulse Rate 125 H 128 H Respiratory Rate 36 H 30 H Blood Pressure 149/80 H Blood Pressure Mean 103 Pulse Ox Oxygen Delivery Method Room Air 02/25/25 21:32 02/25/25 21:32 02/25/25 21:45 Temperature Temperature Source Pulse Rate 132 H 128 H Respiratory Rate 25 H 37 H Blood Pressure 143/131 H 143/131 H 149/128 H Blood Pressure Mean 137 137 137 Pulse Ox Oxygen Delivery Method 02/25/25 21:56 02/25/25 22:00 02/25/25 22:47 Temperature 103.2 F H 102.7 F H Temperature Source Axillary Oral Pulse Rate 124 H 123 H 115 H Respiratory Rate 27 H 28 H 26 H Blood Pressure 139/66 H 119/65 94/56 L Blood Pressure Mean 90 83 68 Pulse Ox 99 100 97 Oxygen Delivery Method Room Air Room Air Room Air 02/25/25 23:00 02/25/25 23:29 02/25/25 23:30 Temperature 101.1 F H 101.1 F H Temperature Source Axillary Oral Pulse Rate 119 H 118 H 127 H Respiratory Rate 28 H 29 H 23 H Blood Pressure 135/84 H 135/87 H 131/62 H Blood Pressure Mean 101 103 85 Pulse Ox 97 97 97 Oxygen Delivery Method Room Air Room Air Room Air 02/25/25 23:31 02/26/25 00:00 Temperature 101.1 F H 101.0 F H Temperature Source Axillary Pulse Rate 119 H 117 H Respiratory Rate 29 H 30 H Blood Pressure 138/90 H 131/62 H Blood Pressure Mean 106 85 Pulse Ox 97 100 Oxygen Delivery Method Room Air Positive well nourished and well developed Constitutional Narrative: Nontoxic however confused. Moving all 4 extremities. General Appearance ED: well developed HEENT Reports moist mucous membranes normocephalic and atraumatic Eyes General Eye ED: Yes normal appearance of both eyes Neck full ROM Chest Wall Chest: Negative for tenderness Resp normal respiratory effort and normal air movement Effort and Inspection: symmetric chest movement; Negative for respiratory distress Cardio regular rhythm and no murmurs Rate: tachycardic Peripheral Pulses: pulses 2+ throughout GI normal to inspection, nondistended, normoactive bowel sounds and non-tender Palpation: Negative for guarding or rebound tenderness present Extremity normal to inspection General Extremety ED: Negative for edema or tenderness General Extremity: Negative for edema Neuro Neuro Narrative: Patient tell me her name cannot tell me the place or time. Skin no rashes or lesions noted and no wounds Sepsis Attestation Sepsis Alert: Yes Sepsis Attestation: Agree w/Sepsis Date exam was performed: 02/25/25 Time exam was performed: 21:00 Possible Source of Sepsis: Unknown Sepsis Organ Dysfunction Criteria Present: Lactic Acid > 2 mmol/L Fluid Resuscitation Amount of fluid ordered: 2,000 Reason for lesser fluid bolus:: Concern for fluid overload Sepsis Note Date exam was performed: 02/26/25 Time exam was performed: 00:29 Sepsis Attestation: Sepsis re-evaluation was performed MDM MDM MDM Narrative Medical decision making narrative: Interventions / MDM: Differential diagnosis: Febrile illness, encephalopathy Diagnosis considered but do not suspect: Intra hemorrhage heart CT negative. UTI however urine negative. My EKG interpretation: Sinus tachycardia rate of 125, no ST changes, right bundle branch block. Imaging independently reviewed and interpreted by myself: CT brain: No intracranial hemorrhage. Will be chest x-ray: No acute process. External documents reviewed: N/A Test considered but not ordered:N/A ED course: Presentation confusion febrile tachycardic respirate noted 30s however she was not in any respiratory distress. Sepsis workup initial. She michael Eliquis for CT scan will be ordered. Nursingdid cath for urine. Rectal Tylenol for her fever. 2218: CT negative chest x-ray labs white count 11.7. Lactic acid 2.2. Creatinine 1.06. Cath urine negative for infection. COVID flu RSV pending. Febrile illness unclear etiology at this time. I will add viral panel will obtain chest abdomen pelvis CT looking for potential source of infection. 2318: CT chest abdomen pelvis IV contrast returning negative. Viral panel pending. No clear etiology with her fever at this time. She is communicating however not baseline. Heart rate 120s blood pressure 120 in the room. Zosyn was started will add vancomycin febrile with unknown origin. Will discuss with hospitalist for admission. Symptomatic to the possibility of atrial flutter with her heart rate now improved with fluids. IV Lopressor x 1 was given. 0000: I spoke with hospitalist Dr. Grimm updated on the findings and workup. Fever of unknown origin tachycardia will place in the ICU. Re-evaluation: stable Disposition discussed with patient/family/significant other: Patient and family Case discussed with consulting clinician: Hospitalist This note was generated with [employer] software. It may contain incorrectwords, spelling, and punctuation that were not noted in checking the note beforesigning. Lab Data Attestation: I reviewed the patient's lab results. Labs: Laboratory Results - last 24 hr 02/25/25 02/25/25 02/25/25 20:30 20:50 21:10 WBC 11.7 H RBC 4.59 Hgb 14.3 Hct 42.3 MCV 92.2 MCH 31.2 MCHC 33.8 RDW Std Deviation 44.8 H RDW Coeff of Yovany 13.2 Plt Count 115 L MPV 11.4 Immature Gran % (Auto) 0.600 Neut % (Auto) 89.7 H Lymph % (Auto) 5.8 L Parker % (Auto) 3.0 Eos % (Auto) 0.0 Baso % (Auto) 0.9 Absolute Neuts (auto) 10.5 H Absolute Lymphs (auto) 0.68 L Nucleated RBC % 0 PT 15.5 H INR 1.2 APTT 30.0 Sodium 134 Potassium 4.5 Chloride 99 Carbon Dioxide 22.3 Anion Gap 13 BUN 22 H Creatinine 1.06 Estim Creat Clear Calc 50.25 Est GFR (MDRD) Non-Af 54 L BUN/Creatinine Ratio 20.8 H Glucose 279 H Lactic Acid 2.2 H* Calcium 9.6 Total Bilirubin 1.33 H AST 21 ALT 27 Alkaline Phosphatase 65 Total Protein 6.7 Albumin 4.1 Globulin 2.6 Albumin/Globulin Ratio 1.5 Urine Color Yellow Urine Clarity Sl. Cloudy Urine pH 7.0 Ur Specific Eckerty 1.005 Urine Protein 30 H Urine Glucose (UA) 1000 H Urine Ketones Negative Urine Occult Blood 25 H Urine Nitrite Negative Urine Bilirubin Negative Urine Urobilinogen Normal Ur Leukocyte Esterase Negative Urine RBC 0-5 SEEN Urine WBC 0-5 SEEN Ur Squamous Epith Cells 0-5 SEEN Urine Bacteria 0 SEEN Urine Mucus 0 SEEN Radiography Diagnostic Testing: Clinical Impression(s) from Imaging Studies Brain CT 02/25/25 21:45 IMPRESSION: No acute intracranial findings Reading Location: [facility] Chest X-Ray 02/25/25 21:45 IMPRESSION: No acute chest findings. Reading Location: [facility] Chest/Abdomen/Pelvis CT 02/25/25 22:19 IMPRESSION: No acute chest abdomen or pelvic pathology. Reading Location: [place] [address] Critical Care Time Critical Care Time: Yes Critical care time (excluding procedures): 30-74 minutes, Discussing w/Patient &/or Family/CareGiver, Discussing w/Consultants, Arranging Admission or Transfer, Performing Direct Patient Care atBedside and - (45 minutes) Discharge Plan Dx/Rx/DC Orders Clinical Impression: Fever, Presence of cardiac pacemaker, Encephalopathy, Acidosis, lactic, Chronicanticoagulation Disposition Disposition: Acute Care [facility] What to do if you have Problems For any increased pain, shortness of breath, bleeding, nausea or vomiting, chestpain, or any unexpected problems, contact your Primary Care Provider. Call [facility] ([phone]) or report tothe closest Emergency Room. Call 911 if necessary. 02/26/25 0029 Cosigner Signature (if applicable): CC: Dr. Abby Mcclellan MD ~ Signed [facility]07-31-2025 Radiology Diagnostic study note [facility] Imaging Services [address] [place] [id number] Chest, Abd, Pel w/Contrast MR#: [id number] Acct: [id number] Name: JENNIFER GONZALEZ Rep #: [id number] : 1950 F 74 From: Rajani Goodrich MD PCP: Dr. Abby Mcclellan MD Status: RE G ER Study:CT Chest, Abd, Pel w/Contrast Date of E xam: 02/25/25 Exam# [id number] Ordering Dr: Epi Lynch DO PROCEDURE: CT CHEST, ABD, PEL W/CONTRAST 02/25/2025 REASON FOR EXAM: FEVER UNKNOWN CAUSE TECHNIQUE: Chest, abdomen and pelvis CT with intravenous contrast. Coronal and Sagittal reconstruction series were provided. One or more dose reduction techniques were used (e.g., Automated exposure control, adjustment of the mA and/or kV according to patient size, use of iterative reconstruction technique. PATIENT PREPARATION: Per protocol ORAL CONTRAST TYPE: None. AMOUNT: mL CONTRAST: Isovue 300 VOLUME: 88mL Gauge IV RADIATION DOSE SUMMARY: CTDlvol: 66 mGy DLP: 2188 mGycm COMPARISON: Chest x-ray 02/25/2025 FINDINGS: Unremarkable base of neck and axilla. Normal esophagus. Normal heart size. Status post AVR. No acute vascular pathology. Thoracic spine scoliosis and degeneration. Left-sided cardiac device. No acutechest wall findings. Central airways are patent. Under aerated lungs. No consolidation, effusion, or pneumothorax. Small gallstone. Unremarkable liver, pancreas,, kidneys. Bilateral small adrenal gland nodules favoring benign etiology. No hydronephrosis. Normal bladder. Status post hysterectomy. No retroperitoneal or pelvic adenopathy. Nondistended bowel. No signs of appendicitis. No acute large bowel findings. Status post right THR. Lumbar spine degeneration. No acute abdominal wall findings. CT/CT Chest, Abd, Pel w/Contrast IMPRESSION: No acute chest abdomen or pelvic pathology. Reading Location: [place] [address] CC: Dr. Abby Mcclellan MD; Dr. Epi Lynch DO ~ Hand I Thermal Cutter: Signed [facility]07-31-2025 Radiology Diagnostic study note [facility] Imaging Services [address] [place] [address] [id number] Chest 1 View (Portable) MR#: [id number] Acct: [id number] Name: JENNIFER GONZALEZ Rep #: [id number] : 1950 F 74 From: Rajani Goodrich MD PCP: Dr. Abby Mcclellan MD Status: RE G ER Study:Chest 1 View (Portable) Date of Exam: 02/25/25 Exam# [id number] Ordering Dr: Epi Lynch DO PROCEDURE: CHEST 1 VIEW (PORTABLE) 02/25/2025 REASON FOR EXAM: ALTERED MENTAL STATUS TECHNIQUE: Frontal view of the chest. COMPARISON: 01/14/2024 FINDINGS: Normal heart size. Status post AVR. Unremarkable cardiac device. Well inflated lungs. No consolidation, effusion or pneumothorax. Chronic right-sided rotator cuff tear. RAD/Chest 1 View (Portable) IMPRESSION: No acute chest findings. Reading Location: [place] [address] CC: Dr. Abby Mcclellan MD; Dr. Epi Lynch DO ~ Hand I Thermal Cutter: Signed [facility]07-31-2025 Radiology Diagnostic study note [facility] Imaging Services [address] [address] Brain/Head without Contrast MR#: [id number] Acct: [id number] Name: JENNIFER GONZALEZ Rep #: [id number] : 1950 F 74 From: Rajani Goodrich MD PCP: Dr. Abby Mcclellan MD Status: RE G ER Study:Brain/Head without Contrast Date of Exa m: 02/25/25 Exam# [id number] Ordering Dr: Epi Lynch DO PROCEDURE: BRAIN/HEAD WITHOUT CONTRAST 02/25/2025 REASON FOR EXAM: ALTERED MENTAL STATUS TECHNIQUE: BRAIN/HEAD WITHOUT CONTRAST Coronal and Sagittal reconstruction series were provided. One or more dose reduction techniques were used (e.g., Automated exposure control, adjustment of the mA and/or kV according to patient size, use of iterative reconstruction technique. RADIATION DOSE SUMMARY: CTDlvol: 45 mGy DLP: 813 mGycm COMPARISON: No FINDINGS: Mild atrophy. Mild white matter change. 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 Arterial calcifications. No acute abnormal brain densities. No intracranial hemorrhage. No hydrocephalus or midline shift. No acute scalp or skull pathology. Unremarkable orbits. Clear sinuses, mastoid air cells, middle ear cavities. CT/Brain/Head without Contrast IMPRESSION: No acute intracranial findings Reading Location: [place] [address] CC: Dr. Abby Mcclellan MD; Dr. Epi Lynch DO ~ Hand I Thermal Cutter: Signed [facility]07-31-2025 Discharge summary Author Epi Lynch [facility] Note Date/Time February 26, 2025 12: 29am [facility] Medical Records Department [address] [place] [address] Emergency Department Summary 02/25/25 MR#: [id number] Acct: [id number] Name: JENNIFER GONZALEZ Rep #:[id number] : 1950 74 From: Epi Devlin PCP: Dr. Abby Mcclellan MD Status:AD M IN Location: ICU ICU05-1 HPI History of Present Illness Chief Complaint: Confusion Informant: spouse/S.O., family and EMS Narrative Narrative: History of hypertension, SVT, paroxysmal atrial fibrillation, aortic sclerosis and mild stenosis. She is status post TAVR 04/06/2024. Patient had a pacemaker placed at that time as well secondary to intermittent complete heart block observed while hospitalized. Primary EMS increased altered mental status. Spouse and family present. Mary was driving earlier today however confused. Despite no cough unclear of anyvomiting. Spouse states at times will have memory lapse however no diagnosis dementia. From records she is on Eliquis for history of A-fib. On arrival she is confused she has a fever she is tachycardic. Blood pressure 121/73. [facility] Medical History Intermittent complete heart block Presence [...] calcification Diabetes type 2, uncontrolled Morbid obesity Home Medications ?Medication ?Instructions ?Recorded ?Last Taken ?Type calcium carbonate (Calcium 500) 500 mg PO DAILY supple ment 01/05/19 Unknown History glucosamine HCl 1,500 mg tablet 1,500 mg PO DAILY 03/30 04/17 Unknown History metoprolol succinate 25 mg 50 mg PO DAILY bp 06/01/24 Unknown History tablet,extended release 24 hr glimepiride 2 mg tablet 4 mg PO BID 06/02/24 Unknown History metformin 500 mg tablet 1,000 mg PO BID diabetes 12/19 Unknown History apixaban 5 mg tablet (Eliquis) 5 mg PO BID #180 tabs 0 02/08/25 Unknown Rx losartan 50 mg tablet 50 mg PO QDAY 02/08/25 Unkno wn History Allergy/AdvReac Type Severity Reaction Status Date / Time atorvastatin (From Lipitor) Allergy Intermediate Rash Verified 02/08/25 10:33 Family History Father COPD (chronic obstructive pulmonary disease) CAD (coronary artery disease) Mother Cancer Breast cancer Surgical History History of right hip replacement (12/02/19) history left breast stereotactic biopsy (02/10/18) History of total right knee replacement (TKR) History of total left knee replacement (01/31/09) History of total hysterectomy History of appendectomy Social History Smoking Status: Never smoker second hand exposure: No alcohol intake: never substance use type: does not use caffeine: No what type of physical activity do you participate in: none frequency: does not exercise seatbelt use: always ROS ROS ED Review of Systems ROS Unobtainable: due to mental status EXAM Physical Exam Const Vital Signs: 02/25/25 20:42 02/25/25 20:56 02/25/25 21:00 Temperature 103 F H Temperature Source Axillary Pulse Rate 129 H 128 H 131 H Respiratory Rate 30 H 23 H 27 H Blood Pressure 121/73 H Blood Pressure Mean 89 Pulse Ox 98 Oxygen Delivery Method Room Air 02/25/25 21:08 02/25/25 21:15 02/25/25 21:30 Temperature Temperature Source Pulse Rate 125 H 128 H Respiratory Rate 36 H 30 H Blood Pressure 149/80 H Blood Pressure Mean 103 Pulse Ox Oxygen Delivery Method Room Air 02/25/25 21:32 02/25/25 21:32 02/25/25 21:45 Temperature Temperature Source Pulse Rate 132 H 128 H Respiratory Rate 25 H 37 H Blood Pressure 143/131 H 143/131 H 149/128 H Blood Pressure Mean 137 137 137 Pulse Ox Oxygen Delivery Method 02/25/25 21:56 02/25/25 22:00 02/25/25 22:47 Temperature 103.2 F H 102.7 F H Temperature Source Axillary Oral Pulse Rate 124 H 123 H 115 H Respiratory Rate 27 H 28 H 26 H Blood Pressure 139/66 H 119/65 94/56 L Blood Pressure Mean 90 83 68 Pulse Ox 99 100 97 Oxygen Delivery Method Room Air Room Air Room Air 02/25/25 23:00 02/25/25 23:29 02/25/25 23:30 Temperature 101.1 F H 101.1 F H Temperature Source Axillary Oral Pulse Rate 119 H 118 H 127 H Respiratory Rate 28 H 29 H 23 H Blood Pressure 135/84 H 135/87 H 131/62 H Blood Pressure Mean 101 103 85 Pulse Ox 97 97 97 Oxygen Delivery Method Room Air Room Air Room Air 02/25/25 23:31 02/26/25 00:00 Temperature 101.1 F H 101.0 F H Temperature Source Axillary Pulse Rate 119 H 117 H Respiratory Rate 29 H 30 H Blood Pressure 138/90 H 131/62 H Blood Pressure Mean 106 85 Pulse Ox 97 100 Oxygen Delivery Method Room Air Positive well nourished and well developed Constitutional Narrative: Nontoxic however confused. Moving all 4 extremities. General Appearance ED: well developed HEENT Reports moist mucous membranes normocephalic and atraumatic Eyes General Eye ED: Yes normal appearance of both eyes Neck full ROM Chest Wall Chest: Negative for tenderness Resp normal respiratory effort and normal air movement Effort and Inspection: symmetric chest movement; Negative for respiratory distress Cardio regular rhythm and no murmurs Rate: tachycardic Peripheral Pulses: pulses 2+ throughout GI normal to inspection, nondistended, normoactive bowel sounds and non-tender Palpation: Negative for guarding or rebound tenderness present Extremity normal to inspection General Extremety ED: Negative for edema or tenderness General Extremity: Negative for edema Neuro Neuro Narrative: Patient tell me her name cannot tell me the place or time. Skin no rashes or lesions noted and no wounds Sepsis Attestation Sepsis Alert: Yes Sepsis Attestation: Agree w/Sepsis Date exam was performed: 02/25/25 Time exam was performed: 21:00 Possible Source of Sepsis: Unknown Sepsis Organ Dysfunction Criteria Present: Lactic Acid > 2 mmol/L Fluid Resuscitation Amount of fluid ordered: 2,000 Reason for lesser fluid bolus:: Concern for fluid overload Sepsis Note Date exam was performed: 02/26/25 Time exam was performed: 00:29 Sepsis Attestation: Sepsis re-evaluation was performed MDM MDM MDM Narrative Medical decision making narrative: Interventions / MDM: Differential diagnosis: Febrile illness, encephalopathy Diagnosis considered but do not suspect: Intra hemorrhage heart CT negative. UTI however urine negative. My EKG interpretation: Sinus tachycardia rate of 125, no ST changes, right bundle branch block. Imaging independently reviewed and interpreted by myself: CT brain: No intracranial hemorrhage. Will be chest x-ray: No acute process. External documents reviewed: N/A Test considered but not ordered:N/A ED course: Presentation confusion febrile tachycardic respirate noted 30s however she was not in any respiratory distress. Sepsis workup initial. She michael Eliquis for CT scan will be ordered. Nursing did cath for urine. Rectal Tylenol for her fever. 2218: CT negative chest x-ray labs white count 11.7. Lactic acid 2.2. Creatinine 1.06. Cath urine negative for infection. COVID flu RSV pending. Febrile illness unclear etiology at this time. I will add viral panel will obtain chest abdomen pelvis CT looking for potential source of infection. 2318: CT chest abdomen pelvis IV contrast returning negative. Viral panel pending. No clear etiology with her fever at this time. She is communicating however not baseline. Heart rate 120s blood pressure 120 in the room. Zosyn was started will add vancomycin febrile with unknown origin. Will discuss with hospitalist for admission. Symptomatic to the possibility of atrial flutter with her heart rate now improved with fluids. IV Lopressor x 1 was given. 0000: I spoke with hospitalist Dr. Grimm updated on the findings and workup. Fever of unknown origin tachycardia will place in the ICU. Re-evaluation: stable Disposition discussed with patient/family/significant other: Patient and family Case discussed with consulting clinician: Hospitalist This note was generated with [employer] dictation software. It may contain incorrectwords, spelling, and punctuation that were not noted in checking the note beforesigning. Lab Data Attestation: I reviewed the patient's lab results. Labs: Laboratory Results - last 24 hr 02/25/25 02/25/25 02/25/25 20:30 20:50 21:10 WBC 11.7 H RBC 4.59 Hgb 14.3 Hct 42.3 MCV 92.2 MCH 31.2 MCHC 33.8 RDW Std Deviation 44.8 H RDW Coeff of Yovany 13.2 Plt Count 115 L MPV 11.4 Immature Gran % (Auto) 0.600 Neut % (Auto) 89.7 H Lymph % (Auto) 5.8 L Parker % (Auto) 3.0 Eos % (Auto) 0.0 Baso % (Auto) 0.9 Absolute Neuts (auto) 10.5 H Absolute Lymphs (auto) 0.68 L Nucleated RBC % 0 PT 15.5 H INR 1.2 APTT 30.0 Sodium 134 Potassium 4.5 Chloride 99 Carbon Dioxide 22.3 Anion Gap 13 BUN 22 H Creatinine 1.06 Estim Creat Clear Calc 50.25 Est GFR (MDRD) Non-Af 54 L BUN/Creatinine Ratio 20.8 H Glucose 279 H Lactic Acid 2.2 H* Calcium 9.6 Total Bilirubin 1.33 H AST 21 ALT 27 Alkaline Phosphatase 65 Total Protein 6.7 Albumin 4.1 Globulin 2.6 Albumin/Globulin Ratio 1.5 Urine Color Yellow Urine Clarity Sl. Cloudy Urine pH 7.0 Ur Specific Eckerty 1.005 Urine Protein 30 H Urine Glucose (UA) 1000 H Urine Ketones Negative Urine Occult Blood 25 H Urine Nitrite Negative Urine Bilirubin Negative Urine Urobilinogen Normal Ur Leukocyte Esterase Negative Urine RBC 0-5 SEEN Urine WBC 0-5 SEEN Ur Squamous Epith Cells 0-5 SEEN Urine Bacteria 0 SEEN Urine Mucus 0 SEEN Radiography Diagnostic Testing: Clinical Impression(s) from Imaging Studies Brain CT 02/25/25 21:45 IMPRESSION: No acute intracranial findings Reading Location: [place] [address] Chest X-Ray 02/25/25 21:45 IMPRESSION: No acute chest findings. Reading Location: [place] [address] Chest/Abdomen/Pelvis CT 02/25/25 22:19 IMPRESSION: No acute chest abdomen or pelvic pathology. Reading Location: [place] [address] Critical Care Time Critical Care Time: Yes Critical care time (excluding procedures): 30-74 minutes, Discussing w/Patient &/or Family/Manufacturing Group Leader, Discussing w/Consultants, Arranging Admission or Transfer, Performing Direct Patient Care at Bedside and - (45 minutes) Discharge Plan Dx/Rx/DC Orders Clinical Impression: Fever, Presence of cardiac pacemaker, Encephalopathy, Acidosis, lactic, Chronicanticoagulation Disposition Disposition: Acute Care [facility] What to do if you have Problems For any increased pain, shortness of breath, bleeding, nausea or vomiting, chestpain, or any unexpected problems, contact your Primary Care Provider. Call [facility] ([phone]) or report to the closest Emergency Room. Call 911 if necessary. 02/26/25 0029 <Electronically signed by Epi Devlin> Cosigner Signature (if applicable): CC: Dr. Abby Mcclellan MD ~ Signed [facility] Work Phone: 1(534) 242-955507-21-2025 Telephone encounter Note* Telephone Encounter - Keisha Petersen - 02/15/2025 11:16 AM EDT Prescription Refill Information The patient has [...] Keisha Petersen February 15, 2025 11:17 AM [facility]07-21-2025 Miscellaneous Notes* Telephone Encounter - Keisha Petersen - 02/15/2025 11:16 AM EDT Prescription Refill Information The patient has [...] 15, 2025 11:17 AM [facility] Telephone encounter Note * Telephone Encounter - Lois Ellis RN - 02/09/2025 5:11 PM EDT Pt's last appt was 01/11 with Kamlesh and next appt 02/15 with Kamlesh. Pt calling in stating Bree has been telling her that she needs to contact her provider's office to get refills on her Metformin. It appears in med history that pt was originally taking 2 tablets by mouth 2 times daily but then inSep of this year, it was updated to take 1 tablet by mouth 2 times a day. [facility] but would have originally only been a 4 month supply but since pt decreased down to 1 tab 2 times a day, the script lasted her longer. Pt also states she needs a refill on her Ozempic sent to [facility] in [place]. Due to constipation issues, pt is still only taking 0.25 mg weekly. So pt does not want to increase dosage. She would likethis script to be sent to [facility] too but currently she needs at least a one month supply to [facility] as she is out of medication. [facility]07-15-2025 Miscellaneous Notes* Telephone Encounter - Lois Ellis RN - 02/09/2025 5:11 PM EDT Pt's last appt was 01/11 with Kamlesh and next appt 02/15 with Kamlesh. Pt calling in stating Bree has been telling her that she needs to contact her provider's office to get refills on her Metformin. It appears in med history that pt was originally taking 2 tablets by mouth 2 times daily but then inSep of this year, it was updated to take 1 tablet by mouth 2 times a day. [facility] but would have originally only been a 4 month supply but since pt decreased down to 1 tab 2 times a day, the script lasted her longer. Pt also states she needs a refill on her Ozempic sent to [facility] in [place]. Due to constipation issues, pt is still only taking 0.25 mg weekly. So pt does not want to increase dosage. She would likethis script to be sent to [facility] too but currently she needs at least a one month supply to [facility] as she is out of medication. [facility] Procedure [facility] [address] [place] [address] Pacemaker Check Date of Service: 02/08/25 1334 MR#: [id number] Acct: [id number] Name: JENNIFER GONZALEZ Rep #: [id number] : 1950 From: Hilary kaiser Age/Sex: 74/F [place] [facility] Status: Signed Billing Codes PM Device Codes: 39561 PM Dev Prog Eval, Dual Assessment and Plan Assessment and Plan (1) Paroxysmal atrial fibrillation: Status: Acute (2) Intermittent complete heart block: Status: Acute (3) Presence of cardiac pacemaker: Status: Chronic 02/08/25 1335 > Date _ Hilary Espinoza Signature: Date (if applicable) CC: ~ [facility]07-14-2025 Evaluation note* Diagnosis Onset Date Resolution Status Admit Date Intermittent complete heart block acute February 08, 2025 10:08am Paroxysmal atrial fibrillation acute February 08, 2025 10:08am Presence of cardiac pacemaker chroni c February 08, 2025 10:08am Intermittent complete heart block acute February 08, 2025 10:09am Paroxysmal atrial fibrillation acute February 08, 2025 10:09am Essential (primary) hypertension chronic February 08, 2025 10:09am Nonrheumatic aortic (valve) stenosis chronic February 08, 2025 10:09am [facility] Work Phone: 1(257) 366-733407-14-2025 Evaluation note* Diagnosis Onset Date Resolution Status Admit Date Intermittent complete heart block ac [place] February 08, 2025 10:08am Paroxysmal atrial fibrillation acute February 08, 2025 10:08am Presence of cardiac pacemaker chroni c February 08, 2025 10:08am Intermittent complete heart block ac [place] February 08, 2025 10:09am Paroxysmal atrial fibrillation acute February 08, 2025 10:09am Essential (primary) hypertension chr onic February 08, 2025 10:09am Nonrheumatic aortic (valve) stenosis chronic February 08, 2025 10:09am Lactic acidosis acute February 12:16am Adverse drug reaction acute Feb 12:16am Chronic anticoagulation acute A 2024 12:16am Encephalopathy acute February 12:16am Fever acute February 26 12:16am Hyperglycemia due to type 2 diabetes mellitus acute February 26 12:16am Metabolic encephalopathy acute February 26, 2025 12:16am Morbid obesity with BMI of 45.0-49.9, adult acute February 26 12:16am Paroxysmal atrial fibrillation acute February 26, 2025 12:16am Sepsis due to undetermined organism acute February 26, 2025 12:16am Tachycardia acute February 26, 025 12:16am Thrombocytopenia acute February 262024 12:16am Presence of cardiac pacemaker chroni c February 26, 2025 12:16am [facility] Work Phone: 1(178) 139-697207-14-2025 Evaluation note* Diagnosis Onset Date Resolution Status Admit Date Intermittent complete heart block ac [place] February 08, 2025 10:08am Paroxysmal atrial fibrillation acute February 08, 2025 10:08am Presence of cardiac pacemaker chroni c February 08, 2025 10:08am Intermittent complete heart block ac [place] February 08, 2025 10:09am Paroxysmal atrial fibrillation acute February 08, 2025 10:09am Essential (primary) hypertension chr onic February 08, 2025 10:09am Nonrheumatic aortic (valve) stenosis chronic February 08, 2025 10:09am Lactic acidosis acute February 12:39am Adverse drug reaction acute Aug us2024 12:39am Chronic anticoagulation acute A ugust 2024 12:39am Encephalopathy acute February 12:39am Fever acute February 26 12:39am Hyperglycemia due to type 2 diabetes mellitus acute February 26 12:39am Metabolic encephalopathy acute February 26, 2025 12:39am Morbid obesity with BMI of 45.0-49.9, adult acute February 26 12:39am Paroxysmal atrial fibrillation acute February 26, 2025 12:39am Sepsis due to undetermined organism acute February 26, 2025 12:39am Septic shock acute February 26, 2025 12:39am Streptococcal bacteremia acute February 26, 2025 12:39am Tachycardia acute February 26 12:39am Thrombocytopenia acute February 262024 12:39am Presence of cardiac pacemaker chroni c February 26, 2025 12:39am [facility] Work Phone: 1(721) 105-545406-16-2025 Telephone encounter Note* Telephone Encounter - Loretta Guerin RN - 01/11/2025 12:24 PM EDT Patient saw Kamlesh today 01/11/2025. Loretta Guerin RN [facility]06-16-2025 Miscellaneous Notes* Telephone Encounter - Loretta [...] advise, Loretta Guerin RN documented in [facility] encounterPrem[facility] [facility]25 NoteHNO ID: [id number] Author: KAMLESH ACOSTA APRN.DANILO Service: ? Author Type: Nurse Practitioner Type: Progress Notes Filed: 01/11/2025 12:32 Note Text: SUBJECTIVE Jennifer Gonzalez is a 74 year old female here today for a check up on her medical problems. Chief Complaint Patient presents with: Recheck: Oxempic was unable to tolerate the 0.5 mg as it did cause constipation but at 0.25 mg she is back to normal. HPI Jennifer Gonzalez is a 74 year old female. [...] rash around neck--resolved after stopping med; hands "froze" with stiffness that started a week after taking a couple pills--resolving ACTIVE PROBLEM LIST Cardiac Pacemaker - 09/29/2024 Cognitive Impairment - 02/25/2024 Paf (Paroxysmal Atrial Fibrillation) ([facility]) - 12/07/2021 Comment: [facility] Nonrheumatic Aortic Valve Stenosis - 12/07/2021 Comment: [facility], echo [facility] Status Post Right Hip Replacement - 12/23/2019 Difficulty in Walking Involving Lower Leg Joint Acid Indigestion - 03/26/2016 Polycythemia, Secondary - 03/28/2011 Comment: This was abnormal, seen by , testing was normal. Generalized Osteoarthrosis, Involving Multiple Sites - 05/10/2008 Diabetes Mellitus ([facility]) - 10/20/2007 Hypertension Goal Bp (Blood Pressure) < 140/90 - 10/12/2005 Hyperlipidemia Associated With Type 2 Diabetes Mellitus ([facility]) - 10/12/2005 Class 3 Severe Obesity Due to Excess Calories With Body Mass Index (Bmi) of 45.0 to 49.9 in Adult ([facility]) Social History Tobacco Use Smoking status: Never [...] and Perception: (more content not included)...[facility]06-16-2025 History of Present illness Narrative* Kamlesh Acosta APRN.[facility] - 01/11/2025 11:17 AM EDT SUBJECTIVE Jennifer Gonzalez is a 74 year old female here today for a check up on her medical problems. Chief Complaint Patient presents with: Recheck: Oxempic was unable to tolerate the 0.5 mg as it did cause constipation but at 0.25 mg she is back to normal. HPI Jennifer Gonzalez is a 74 year old female. [...] rash around neck--resolved after stopping med; hands "froze" with stiffness that started a week after taking a couple pills--resolving ACTIVE PROBLEM LIST Cardiac Pacemaker - 09/29/2024 Cognitive Impairment - 02/25/2024 Paf (Paroxysmal Atrial Fibrillation) ([facility]) - 12/07/2021 Comment: [facility] Nonrheumatic Aortic Valve Stenosis - 12/07/2021 Comment: [facility], echo [facility] Status Post Right Hip Replacement - [...] (Bmi) of 45.0 to 49.9 in Adult ([facility]) Social History Tobacco Use Smoking status: Never [...] hyperglycemia, without long-term current use of insulin ([facility]) - ICD9: 250.00, 790.29, ICD10: E11.65 [...] medication.. Kamlesh Acosta APRN-DANILO documented in [facility]Prem[facility] Telephone encounter Note * Telephone Encounter - Loretta Guerin RN - 01/07/2025 12:05 PM EDT Patient calls and states that she has appointment with Kamlesh on 01/11/2025. Patient is asking about labs to be done prior to appointment? Please review and advise, Loretta Guerin RN [facility]06-12-2025 History of Present illness Narrative* Nu Bruce RPh - 01/07/2025 11:47 AM EDT Primary Care [...] elevated. Nu Bruce RPh documented in this encounterPremier Health [facility]06-12-2025 NoteHNO ID: [id number] Author: NU BRUCE RPh Service: ? Author [...] PharmD referral if repeat A1c returns elevated. [facility] NotePatient Outreach (PHMEWO) JENNIFER GONZALEZ ([id number]) 1950 F Date Time Provider Department 01/07/25 NU BRUCE During your visit today, we recorded the [...] repeat A1c returns elevated. Nu Bruce RPh Allergies As of Date: 01/07/2025 Noted Allergy Reaction LIPITOR (ATORVASTATIN) 06/27/2016 2 - Rash Comments: red itchy rash around neck--resolved after stopping med; hands "froze" with stiffness that started a week after taking a couple pills--resolving Date Reviewed: 11/10/2024 Reviewed by: Kamlesh Acosta APRN.ROBOTIC MAINTENANCE TECHNICIAN - Fully Assessed Prescriptions as of 01/07/2025 [...] Status:Closed by NU BRUCE on 01/07/25[facility] 01-01-2025 NoteHNO ID: [id number] Author: DESHAWN WEAVER MA Service: ? Author Type: Surgical Coder Type: Progress Notes Filed: 01/01/2025 15:51 Note Text: POPULATION HEALTH NAVIGATION OUTREACH Action/FYI Gaps due: AWV A1C [facility] in may but this is confirmed to be done outside of [facility]. No HCCs or med adherence. Reason for Outreach Care Gap/HCC or Scheduling Wellness Visits Care Gaps due: Medicare Annual Wellness Visit HBA1C Patient Contacted: Unable or unnecessary to reach patient: Left message Updated appointment notes Navigation Signature: Deshawn Weaver MA January 01, 2025 3:49 [facility]06-06-2025 History of Present illness Narrative* Deshawn Weaver MA - 01/01/2025 3:49 PM EDT POPULATION HEALTH NAVIGATION OUTREACH Action/FYI Gaps due: AWV A1C [facility] in nov but this is confirmed to be done outside of [facility]. No HCCs or med adherence. Reason for Outreach Care Gap/HCC or Scheduling Wellness Visits Care Gaps due: Medicare Annual Wellness Visit HBA1C Patient Contacted: Unable or unnecessary to reach patient: Left message Updated appointment notes Navigation Signature: Deshawn Weaver MA January 01, 2025 3:49 PM documented in this encounterPremier Health [facility]06-[facility]-2025 NotePatient Outreach (NETNAV) JENNIFER GONZALEZ ([id number]) 1950 F Date Time Provider Department 01/01/25 DESHAWN WEAVER NETWILL During your visit today, we recorded the following information about you: Deshawn Weaver MA 01/01/2025 3:51 PM Signed POPULATION HEALTH NAVIGATION OUTREACH Action/FYI Gaps due: AWV A1C [place] in nov but this is confirmed to be done [...] rash around neck--resolved after stopping med; hands "froze" with stiffness that started a week after taking a couple pills--resolving Date Reviewed: 11/10/2024 Reviewed by: Kamlesh Acosta APRN.ROBOTIC MAINTENANCE TECHNICIAN - Fully Assessed Reason for Visit: Population Health Navigation Outreach [3910] Cmt: Clarisaeddie mark heidi Prescriptions as of 01/01/2025 - semaglutide (OZEMPIC) [...] Status:Closed by DESHAWN WEAVER on 01/01/25[facility] 11-10-2024 NoteHNO ID: [id number] Author: KAMLESH ACOSTA APRN.ROBOTIC MAINTENANCE TECHNICIAN Service: ? Author Type: Nurse Practitioner Type: Progress Notes Filed: 11/10/2024 13:23 Note Text: SUBJECTIVE Jennifer Gonzalez is a 74 year old female here today for a check up on her medical problems. Chief Complaint Patient presents with: Recheck HPI Jennifer Gonzalez is a 74 year old female. [...] rash around neck--resolved after stopping med; hands "froze" with stiffness that started a week after taking a couple pills--resolving ACTIVE PROBLEM LIST Cardiac Pacemaker - 09/29/2024 Cognitive Impairment - 02/25/2024 Paf (Paroxysmal Atrial Fibrillation) ([facility]) - 12/07/2021 Comment: [facility] Nonrheumatic Aortic Valve Stenosis - 12/07/2021 Comment: [facility], echo [facility] Status Post Right Hip Replacement - 12/23/2019 Difficulty in Walking Involving Lower Leg Joint Acid Indigestion - 03/26/2016 Polycythemia, Secondary - 03/28/2011 Comment: This was abnormal, seen by , testing was normal. Generalized Osteoarthrosis, Involving Multiple Sites - 05/10/2008 Diabetes Mellitus ([facility]) - 10/20/2007 Hypertension Goal Bp (Blood Pressure) < 140/90 - 10/12/2005 Hyperlipidemia Associated With Type 2 Diabetes Mellitus ([facility]) - 10/12/2005 Class 3 Severe Obesity Due to Excess Calories With Body Mass Index (Bmi) of 45.0 to 49.9 in Adult ([facility]) Social History Tobacco Use Smoking status: Never [...] deficit p (more content not included)...[facility]04-15-2025 History of Present illness Narrative* Kamlesh Acosta APRN.ROBOTIC MAINTENANCE TECHNICIAN - 11/10/2024 11:30 AM EDT SUBJECTIVE Jennifer Gonzalez is a 74 year old female here today for a check up on her medical problems. Chief Complaint Patient presents with: Recheck HPI Jennifer Gonzalez is a 74 year old female. [...] rash around neck--resolved after stopping med; hands "froze" with stiffness that started a week after taking a couple pills--resolving ACTIVE PROBLEM LIST Cardiac Pacemaker - 09/29/2024 Cognitive Impairment - 02/25/2024 Paf (Paroxysmal Atrial Fibrillation) ([facility]) - 12/07/2021 Comment: [facility] Nonrheumatic Aortic Valve Stenosis - 12/07/2021 Comment: [facility], echo [facility] Status Post Right Hip Replacement - 12/23/2019 Difficulty in Walking Involving Lower Leg Joint Acid Indigestion - 03/26/2016 Polycythemia, Secondary - 03/28/2011 Comment: This was abnormal, seen by , testing was normal. Generalized Osteoarthrosis, Involving Multiple Sites - 05/10/2008 Diabetes Mellitus ([facility]) - 10/20/2007 Hypertension Goal Bp (Blood Pressure) < 140/90 - 10/12/2005 Hyperlipidemia Associated With Type 2 Diabetes Mellitus ([facility]) - 10/12/2005 Class 3 Severe Obesity Due to Excess Calories With Body Mass Index (Bmi) of 45.0 to 49.9 in Adult ([facility]) Social History Tobacco Use Smoking status: Never [...] weeks (around 01/05/2025) for DM follow up. Kamlesh Acosta APRN-DANILO documented in this encounterPremier Health [facility]03-04-2025 NoteHNO ID: [id number] Author: KAMLESH ACOSTA APRN.CNP Service: ? Author Type: Nurse Practitioner Type: Progress Notes Filed: 09/29/2024 13:05 Note Text: SUBJECTIVE Jennifer Gonzalez is a 74 year old female here today for a check up on her medical problems. Chief Complaint Patient presents with: Recheck: swelling in left arm compared to right No injury that she is aware and no pain HPI Jennifer Gonzalez is a 74 year old female. She is an established patient of Abby Mcclellan MD. Here today for routine follow up. S/p TAVR on 04/06/2024. Had her heart surgery, had a pacemaker placed the next day. Notes some mild edema in the left upper extremity, no pain, redness or tenderness. This has been slight since she is post pacemaker placement. Seeing [facility] for cardiology follow up. She had labs done 09/19. Jennifer Gonzalez is a 74 year old female [...] rash around neck--resolved after stopping med; hands "froze" with stiffness that started a week after taking a couple pills--resolving ACTIVE PROBLEM LIST Cardiac Pacemaker - 09/29/2024 Cognitive Impairment - 02/25/2024 Paf (Paroxysmal Atrial Fibrillation) ([facility]) - 12/07/2021 Comment: [facility] Nonrheumatic Aortic Valve Stenosis - 12/07/2021 Comment: [facility], echo [facility] Status Post Right Hip Replacement - 12/23/2019 Difficulty in Walking Involving Lower Leg Joint Acid Indigestion - 03/26/2016 Polycythemia, Secondary - 03/28/2011 Comment: This was abnormal, seen by , testing was normal. Generalized Osteoarthrosis, Involving Multiple Sites - 05/10/2008 Diabetes Mellitus ([facility]) - 10/20/2007 Hypertension Goal Bp (Blood Pressure) < 140/90 - 10/12/2005 Hyperlipidemia Associated With Type 2 Diabetes Mellitus ([facility]) ([facility]) - 10/12/2005 Class 3 Severe Obesity Due to Excess Calories With Body Mass Index (Bmi) of 45.0 to 49.9 in Adult ([facility]) Social History Tobacco Use Smoking status: Never [...] deficit pres (more content not included)...[facility]03-04-2025 History of Present illness Narrative* Kamlesh Acosta APRN.ROBOTIC MAINTENANCE TECHNICIAN - 09/29/2024 12:08 PM EST SUBJECTIVE Jennifer Gonzalez is a 74 year old female here today for a check up on her medical problems. Chief Complaint Patient presents with: Recheck: swelling in left arm compared to right No injury that she is aware and no pain HPI Jennifer Gonzalez is a 74 year old female. She is an established patient of Abby Mcclellan MD. Here today for routine follow up. S/p TAVR on 04/06/2024. Had her heart surgery, had a pacemaker placed the next day. Notes some mild edema in the left upper extremity, no pain, redness or tenderness. This has been slight since she is post pacemaker placement. Seeing [facility] for cardiology follow up. She had labs done 09/19. Jennifer Gonzalez is a 74 year old female [...] rash around neck--resolved after stopping med; hands "froze" with stiffness that started a week after taking a couple pills--resolving ACTIVE PROBLEM LIST Cardiac Pacemaker - 09/29/2024 Cognitive Impairment - 02/25/2024 Paf (Paroxysmal Atrial Fibrillation) ([facility]) - 12/07/2021 Comment: [facility] Nonrheumatic Aortic Valve Stenosis - 12/07/2021 Comment: [facility], echo [facility] Status Post Right Hip Replacement - 12/23/2019 Difficulty in Walking Involving Lower Leg Joint Acid Indigestion - 03/26/2016 Polycythemia, Secondary - 03/28/2011 Comment: This was abnormal, seen by , testing was normal. Generalized Osteoarthrosis, Involving Multiple Sites - 05/10/2008 Diabetes Mellitus ([facility]) - 10/20/2007 Hypertension Goal Bp (Blood Pressure) < 140/90 - 10/12/2005 Hyperlipidemia Associated With Type 2 Diabetes Mellitus ([facility]) ([facility]) - 10/12/2005 Class 3 Severe Obesity Due to Excess Calories With Body Mass Index (Bmi) of 45.0 to 49.9 in Adult ([facility]) Social History Tobacco Use Smoking status: Never [...] hyperglycemia, without long-term current use of insulin ([facility]) - ICD9: 250.00, 790.29, ICD10: E11.65 [...] associated with type 2 diabetes mellitus (HCC) ([facility]) - ICD9: 250.80, 272.4, ICD10: E11.69, [...] aerobic exercise 4. PAF (paroxysmal atrial fibrillation) ([facility]) - ICD9: 427.31, ICD10: I48.0 Stable s/p pacemaker. 5. Class 3 severe obesity due to excess calories with body mass index (BMI) of 45.0 to 49.9 in adult, unspecified whether serious comorbidity present ([facility]) - ICD9: 278.01, V85.42, ICD10: E66.813, Z68.42, [...] medication.. Kamlesh Acosta APRN-DANILO documented in this encounterPrem[facility]02-26-2025 Telephone encounter Note * Telephone Encounter - Abby Mcclellan MD - 09/23/2024 1:13 PM EST The following approved medication requests have been transmitted electronically. Requested Prescriptions Pending Prescriptions Disp Refills glimepiride (AMARYL) 4 mg tablet 180 tablet 1 Sig: Take 1 tablet by mouth two times a day with meals. Abby Mcclellan MD [facility]02-26-2025 Miscellaneous Notes* Telephone Encounter - Abby [...] 21, 2024 1:37 PM documented in this encounterPremier Health [facility]02-24-2025 Telephone encounter Note * Telephone Encounter [...] Patricia Cuenca September 21, 2024 1:37 PM [facility]01-22-2025 Telephone encounter Note* Telephone Encounter - Abby Mcclellan MD - 08/19/2024 6:11 PM EST Labs set to August to available for September appointment Included UACR [facility]01-22-2025 Miscellaneous Notes* Telephone Encounter - Abby Mcclellan MD - 08/19/2024 6:11 PM EST Labs set to August to available for September appointment Included UACR * Telephone Encounter - Barbara Duran - 08/18/2024 12:52 PM EST Jennifer is calling Abby Mcclellan MD today to request Lab Orders (September appointment) Patient has been identified by name and birthdate. Duration of symptoms: N/A Person calling: self Call patient at: at home [phone] (home) [phone] (cell) Was an appointment scheduled: Yes: Date/Time: 09-29-24 Closing statement: Barbara Clements documented in this encounterPremier Health [facility]01-22-2025 Telephone encounter Note * Telephone Encounter - Abby Mcclellan MD - 08/19/2024 1:04 PM EST The following approved medication requests have been transmitted electronically. Requested Prescriptions Pending Prescriptions Disp Refills metFORMIN (GLUCOPHAGE) 500 mg tablet 180 tablet 3 Sig: Take 2 tablets by mouth two times a day with meals. Abby Mcclellan MD [facility]01-22-2025 Miscellaneous Notes* Telephone Encounter - Abby [...] pharmacy said she has no refills. Barbara Clements August 18, 2024 12:53 PM documented in this encounterPremier Health [facility]01-21-2025 Telephone encounter Note * Telephone Encounter - Barbara Duran - 08/18/2024 12:52 PM EST Jennifer is calling Abby Mcclellan MD today to request Lab Orders (September appointment) Patient has been identified by name and birthdate. Duration of symptoms: N/A Person calling: self Call patient at: at home [phone] (home) [phone] (cell) Was an appointment scheduled: Yes: Date/Time: 09-29-24 Closing statement: Barbara Clements [facility] Work Phone: 1(766) 321-662801-21-2025 Telephone encounter Note* Telephone Encounter - Barbara [...] pharmacy said she has no refills. Barbara Clements August 18, 2024 12:53 PM [facility] Work Phone: 1(663) 282-130611-15-2024 Telephone encounter Note* Telephone Encounter - Sadiq Babcock - 06/12/2024 1:54 PM EST 3 attempts have no been made to reach patient. She can reach us at [phone] M-F 8-5. We will continue to reach out as well. [id number] Miscellaneous Notes* Telephone Encounter - Sadiq Babcock - 06/12/2024 1:54 PM EST 3 attempts have no been made to reach patient. She can reach us at [phone] M-F 8-5. We will continue to reach out as well. * Telephone Encounter - Theresa Felipe - 05/27/2024 2:33 PM EDT Prior Auth was required and has been approved through 07/28/2025. I attempted to reach the patient to inform of authorization and [facility] but no [facility] answered and VM was is full. Will continue to make further outreaches. Thank you! documented in this [facility]10-30-2024 Telephone encounter Note* Telephone Encounter - Theresa Felipe - 05/27/2024 2:33 PM EDT Prior Auth was required and has been approved through 07/28/2025. I attempted to reach the patient to inform of authorization and [facility] but no one answered and VM was is full. Will continue to make further outreaches. Thank you! [facility] [id number] Telephone encounter Note* Telephone Encounter - Polly Coleman RN - 05/19/2024 11:01 AM EDT Chart reviewed, Karunaquemma was started @ [facility] OV 05/07/24, samples & 30 D free card given, pt will be following up w/ Dr. Hubbard. I spoke w/pt, she has 30 Day free card, but needs RX sent in. She has appt w/ Dr. Hubbard in 2 weeks. [facility] to route RX. [facility] [id number] Miscellaneous Notes* Telephone Encounter - Polly Coleman RN - 05/19/2024 11:01 AM EDT Chart reviewed, Karunaarielleemma was started @ [facility] CNP OV [...] refill apixaban (Eliquis) 5 MG tablet Kenneth Simons verified documented in this [facility]10-22-2024 Telephone encounter Note* Telephone Encounter - Charlotte Godinez - 05/19/2024 10:29 AM EDT Requesting refill apixaban (Eliquis) 5 MG tablet Kenneth Simons verified [id number] History of Present illness Narrative* MILDRED Fuentes CNP - 05/07/2024 3:00 PM EDT Images from the original note were not included. [facility] - [address] [address] Dept: [phone] Dept Loc: [phone] Reason for Visit: 1 Month Follow Up Assessment and Plan 1. Severe aortic stenosis Assessment & Plan: S/p TAVR with 23 mm Katharine S3 valve on 04/06/24 -stable, NYHA Class [...] up for Dr. Hubbard . Subjective HPI Jennifer Gonzalez is a 73 y.o. female known to Dr. Hubbard with a history of paroxysmal atrial fibrillation, nonrheumatic aortic valve stenosis, T2DM, hypertension, RBBB and left posterior fascicular block. Cath showed minimal CAD. She underwent femoral TAVR with 23 mm Katharine S3 valve on 04/06/2024. POD 1 echo [...] rash around neck--resolved after stopping med; hands "froze" with stiffness that started a week after taking a couple pills--resolving Outpatient Medications Prior to Visit Medication Sig Dispense Refill calcium carbonate 500 MG chewable tablet Chew 500 mg daily. glimepiride (Amaryl) 4 MG tablet Take 1 tablet by mouth in the morning and 1 tablet in the evening.Take with meals. Xlyhocvwnqe-Fkptouhkx-Nvf C-Mn (GLUCOSAMINE 1500 COMPLEX PO) Take by mouth. [employer]er Blood Glucose Test test strip Test blood [...] Weight: 240 lb (109 kg) Height: 4' 11.5" (1.511 m) Body mass index is 47.66 [...] % MILDRED Ceja CNP documented in this [facility]10-10-2024 History of Present illness Narrative* MILDRED Fuentes CNP - 05/07/2024 3:00 PM EDT Images from the original note were not included. [facility] - [address] [address] Dept: [phone] Dept Loc: [phone] Reason for Visit: 1 Month Follow Up Assessment and Plan 1. Severe aortic stenosis Assessment & Plan: S/p TAVR with 23 mm Katharine S3 valve on 04/06/24 -stable, NYHA Class [...] 04/06/24 -will follow with device clinic at [facility] Follow up for Dr. Hubbard 1-2 months. Subjective HPI Jennifer Gonzalez is a 73 y.o. female known to Dr. Hubbard with a history of paroxysmal atrial fibrillation, nonrheumatic aortic valve stenosis, T2DM, hypertension, RBBB and left posterior fascicular block. Cath showed minimal CAD. She underwent femoral TAVR with 23 mm Katharine S3 valve on 04/06/2024. POD 1 echo [...] rash around neck--resolved after stopping med; hands "froze" with stiffness that started a week after taking a couple pills--resolving Outpatient Medications Prior to Visit Medication Sig Dispense Refill calcium carbonate 500 MG chewable tablet Chew 500 mg daily. glimepiride (Amaryl) 4 MG tablet Take 1 tablet by mouth in the morning and 1 tablet in the evening.Take with meals. Cxidaftzptt-Zqcoxcwdf-Pvf C-Mn (GLUCOSAMINE 1500 COMPLEX PO) Take by [...] Weight: 240 lb (109 kg) Height: 4' 11.5" (1.511 m) Body mass index is 47.66 [...] Final MILDRED Ceja CNP documented in this encounterSProMedica Fostoria Community [id number] Evaluation + Plan note* Assessment & Plan Note - MILDRED Fuentes CNP - 05/07/2024 10:31 AM EDT Associated Problem(s): Essential hypertension Well controlled on current doses of losartan and metoprolol succinate [facility] [id number] Evaluation + Plan note* Assessment & Plan [...] and 30 dayfree card given to patient [facility] [id number] Miscellaneous Notes* Assessment & Plan Note - [...] aortic stenosis S/p TAVR with 23 mm Katharine S3 valve on 04/06/24 -stable, NYHA Class -continue ASA 81 mg daily -repeat echo to be done today -lifelong SBE prophylaxis -Cardiac Rehab documented in this [facility]10-10-2024 Miscellaneous Notes* Assessment & Plan Note [...] 04/06/24 -will follow with device clinic at [facility] * Assessment & Plan Note - MILDRED Fuentes CNP - 05/07/2024 10:13 AM EDT Associated Problem(s): Severe aortic stenosis S/p TAVR with 23 mm Katharine S3 valve on 04/06/24 -stable, NYHA Class II -stop ASA, start Eliquis, see below -repeat echo to be done today -lifelong SBE prophylaxis -Cardiac Rehab-advised her to schedule an orientation documented in this encounterSProMedica Fostoria Community [id number] Evaluation + Plan note* Assessment & Plan Note - MILDRED Fuentes CNP - 05/07/2024 10:28 AM EDT Associated Problem(s): Complete heart block (HCC) Noted post TAVR, PPM placed on 04/06/24 -will follow with device clinic at [id number] Evaluation + Plan note* Assessment & Plan Note - MILDRED Fuentes CNP - 05/07/2024 10:13 AM EDTAssociated Problem(s): Severe aortic stenosis S/p TAVR with 23 mm Katharine S3 valve on 04/06/24 -stable, NYHA Class II -stop ASA, start Eliquis, see below -repeat echo to be done today -lifelong SBE prophylaxis -Cardiac Rehab-advised her to schedule an orientation [id number] Telephone encounter Note* Telephone Encounter - Inna [...] Inna Proctor April 23, 2024 12:36 PM [facility]09-26-2024 Miscellaneous Notes* Telephone Encounter - Inna [...] 23, 2024 12:36 PM documented in this [facility]Prem[facility] History of Present illness Narrative* MILDRED Maza CNP - 04/17/2024 12:45 PM EDT Images from the original note were not included. [facility] [address] [address] Dept: [phone] Dept Visit type: Established : 1950 Reason for Visit: No chief complaint on file. Assessment and Plan 1. S/P TAVR (transcatheter aortic valve replacement). She has a resting tachycardia today, unclear etiology. Will check labs - Basic metabolic panel - CBC auto differential - TSH - [facility] 2. Essential hypertension. BP controlled, continue metoprolol. - ECG 12 lead - CLINIC PERFORMED - Basic metabolic panel - CBC auto differential - TSH - [facility] Cardiac[facility]ulmonary Re[facility] 3. Aortic valve stenosis, etiology of cardiac valve disease unspecified. S/p TAVR. Continue ASA, SBE prophylaxis. Referred to cardiac rehabEcho and re evaluation in one month. - Basic metabolic panel - CBC auto differential - TSH - [facility] Card[facility] Re[facility] 4. Complete heart block (CMS/HCC) (HCC). S/p PPm. Has follow up with device clinic. One month follow up Subjective Jennifer Gonzalez is a 73 y.o. female with PMH paroxysmal atrial fibrillation ?, nonrheumatic aortic valve stenosis, DM, hypertension, RBBB and left posterior fascicular block that presented to [facility] on 04/06/2024 for TAVR. Femoral TAVR with 23 mm Katharine S3 valve was performed on 04/06/2024. POD 1 echo showed EF 66%, mean ao gradient 12 mm Hg. She developed high degree AV block with intermittent SVT. PPM was implanted on 04/06, beta liliya was resumed. She was discharged on 04/08/2024. Today she is here for one week follow up. Jennifer denies any chest pain, dyspnea, groin/wrist complaints, bleeding. Her spouse notes improvement in breathing. Allergies Allergen Reactions Atorvastatin Rash red itchy rash around neck--resolved after stopping med; hands "froze" with stiffness that started a week after taking a couple pills--resolving Outpatient Medications Prior to Visit Medication Sig Dispense Refill aspirin 81 MG EC tablet Take 81 mg by mouth daily. calcium carbonate 500 MG chewable tablet Chew 500 mg daily. glimepiride (Amaryl) 4 MG tablet Take 1 tablet by mouth in the morning and 1 tablet in the evening.Take with meals. Azhiskomzkm-Mbkvvynma-Prb C-Mn (GLUCOSAMINE 1500 COMPLEX PO) Take by [...] Weight: 240 lb (109 kg) Height: 4' 11" (1.499 m) Physical Exam Constitutional: Appearance: Normal [...] specialty: EKG in office: ST with RBBB Review of tests/labs done/ordered outside my specialty: Independent interpretation of tests: MILDRED Maza CNP documented in this [facility]09-11-2024 NoteSuccessful dual-chamber pacemaker implant Procedure Details [...] in the left axillary vein. A 9 Kittitian sheath was placed and the ventricular is advanced in the heart. This was repeated to 7 Kittitian sheath for the atrial lead. The atrial [...] the patient went to lab in stable condition.[facility] [id number] Note Attestation signed by Calvin Barnard MD [...] at increased risk for PPM after procedure. [facility] [place] [facility] Cardiology Discharge Summary Name: Jennifer Gonzalez Date of : 1950 Date of [...] with hyperglycemia Class 3 Obesity Hospital Course Jennifer Gonzalez is a 73 y.o. female with PMH paroxysmal atrial fibrillation, nonrheumatic aortic valve stenosis, DM, hypertension, RBBB and left posterior fascicular block that presented to [facility] on 04/06/2024 for TAVR procedure who [facility] to the [facility]06 for TAVR placement due to [...] referenced a hospitalization in September 2003 for "palpitations". Outside if this her metoprolol seems to have been originally started for unspecified tachycardia. / this unclear hx, need for anticoagulation is [...] to [facility] [address] [place] [address] (more content not included)...[facility]09-11-2024 History of Present illness Narrative* Karli Gonzalez - 04/08/2024 10:30 AM EDT Nutrition rescreen completed. Chart reviewed. Patient to be monitored and followed by the diet orthotic finish grinding technician. .BOBBY Dugan * MILDRED Juarez CNP - 04/08/2024 9:35 AM EDT [facility] Cardiology /Electrophysiology Progress Note HPI / Interval History: Jennifer Gonzalez is a 73 y.o. female with [...] 156 168 144 No results for input(s): "CKTOTAL", "CKMB", "CKMBINDEX", "TROPONINI" in the last 72 hours. No results for input(s): "BNP" in the last 72 hours. No results for input(s): "TRIG", "HDL", "LDLCALC", "CHOL" in the last 72 hours. No results found for: "LDLCHOLESTER" No results found for: "TSH" EF BP Date Value Ref Range Status 04/07/2024 66 55 - 100 % Final 04/06/24 TRANSTHORACIC ECHOCARDIOGRAM (TTE) COMPLETE (CONTRAST/BUBBLE/3D PRN) 04/07/2024 11:40 AM (Final) Interpretation Summary Aortic Valve: Marsh Kathairne 3 Ultra bioprosthetic aortic valve with a [...] from the original note were not included. [facility] CCU PROGRESS NOTE Patient Name: Jennifer Gonzalez : 1950 Subjective: Jennifer Gonzalez is a 73 y.o. female with [...] F) (Temporal) Resp (!) 26 Ht 4' 11" (1.499 m) Wt 243 lb (110 kg) [...] 04/08/2024 Cardiac profile: No results found for: "CKTOTAL", "CKMB", "TROPONINI" Coagulation: No results found for: "INR", "PTT" Lipid panel: No results found for: "CHOL", "HDL", "LDL", "TRIG" Other: No results found for: "HGBA1C", "TSH" Chest Imaging: CXR: Cardiac Studies: Telemetry findings reviewed: few desats on RA o/n, few runs of tachycardia. ECG: Encounter Date: 04/06/24 ECG 12 lead Result Value Heart Rate 104 QRSD Interval 141 QT Interval 362 QTC Interval 477 P Joppa 40 QRS Joppa 95 T Wave Joppa -65 RI Interval 204 Impression Sinus tachycardia RBBB and LPFB Anterior infarct, old Echo: 04/06/24 TRANSTHORACIC ECHOCARDIOGRAM (TTE) COMPLETE (CONTRAST/BUBBLE/3D PRN) 04/07/2024 11:40 AM (Final) Interpretation Summary Aortic Valve: Marsh Katharine 3 Ultra bioprosthetic aortic valve with a [...] (Final) Conclusion Successful TAVR with a 23mm Katharine S3u, via right transfemoral approach TAVR Procedural Report Interventional Cardiologists: -Srinivasa Poon MD -Devaughn Young MD (Fellow) Cardiothoracic Surgeon: -Jayson Key MD Procedure: 1. A 23 KATHARINE S3 VALVE IMPLANTATION. 2. TRANSFEMORAL TRANSCATHETER AORTIC [...] Via the right femoral vein, a 6 Kittitian sheath was placed and temporary pacing wire was placed into the RV apex with appropriate capture, in addition sterile tubing was attached and given theanesthesia for central access. Via right radial artery, a 6-Kittitian sheath was placed and the pigtail catheter was placed into the aortic annulus with confirmation the implant angle. Via the right femoral artery, a 6-Kittitian sheath was placed. The patient was then heparinized. Next, two Perclose devices were used using the pre-close strategy. A Super Stiff wire was then placed through the second Perclose into the descending aorta. Then, a 14-Kittitian Katharine E-sheath was introduced over the wire into [...] AL1 catheter was removed. Next a 23mm Katharine S3 valve was then advanced through the [...] care of your patient while hospitalized at [facility]. I will continue to follow along [...] Maza CNP - 04/07/2024 10:17 AM EDT [facility] [place] [facility] Cardiology /Electrophysiology Progress Note HPI / Interval History: Ms Gonzalez is POD 1 TAVR. She denies any chest pain, dyspnea, palpitations, groin complaints. [id number] am this morning she intermittent high degree [...] 0.55 0.79 Recent Labs 04/06/24 1422 04/07/24 000 WBC 7.2 9.3 HGB 11.7 13.1 HCT 36.1 40.5 MCV 93.8 93.1 PLT 156 168 No results for input(s): "CKTOTAL", "CKMB", "CKMBINDEX", "TROPONINI" in the last 72 hours. No results for input(s): "BNP" in the last 72 hours. No results for input(s): "TRIG", "HDL", "LDLCALC", "CHOL" in the last 72 hours. No results found for: "LDLCHOLESTER" No results found for: "TSH" EF BP Date Value Ref Range Status 04/07/2024 66 55 - 100 % Preliminary 04/06/24 TRANSTHORACIC ECHOCARDIOGRAM (TTE) COMPLETE (CONTRAST/BUBBLE/3D PRN) (Preliminary) This result has not been signed. Information might be incomplete. Interpretation Summary Aortic Valve: Marsh Katharine 3 Ultra bioprosthetic aortic valve with a [...] Date Of Service 04/07/2024 documented in this [facility]09-11-2024 [facility] [place] [facility] Cardiology /Electrophysiology Progress Note HPI / Interval History: Jennifer Gonzalez is a 73 y.o. female with [...] CREATININE 0.55 0.79 0.74 Recent Labs 04/06/24 14204/07/24 0007 04/08/24 0035 WBC 7.2 9.3 10.1 HGB 11.7 13.1 13.5 HCT 36.1 40.5 41.2 MCV 93.8 93.1 93.0 PLT 156 168 144 No results for input(s): "CKTOTAL", "CKMB", "CKMBINDEX", "TROPONINI" in the last 72 hours. No results for input(s): "BNP" in the last 72 hours. No results for input(s): "TRIG", "HDL", "LDLCALC", "CHOL" in the last 72 hours. No results found for: "LDLCHOLESTER" No results found for: "TSH" EF BP Date Value Ref Range Status 04/07/2024 66 55 - 100 % Final 04/06/24 TRANSTHORACIC ECHOCARDIOGRAM (TTE) COMPLETE (CONTRAST/BUBBLE/3D PRN) 04/07/2024 11:40 AM (Final) Interpretation Summary Aortic Valve: Marsh Katharine 3 Ultra bioprosthetic aortic valve with a [...] 04/07/2024 66 55 - 100 % Final KayceRadha Blas, VICE PRESIDENT PLANNING - ROBOTIC MAINTENANCE TECHNICIAN Date Of Service 04/08/2024[facility]09-10-2024 Plan of care note* Care Plan - Shasta Badillo RN - 04/07/2024 6:09 PM EDT Problem: Cardiovascular - Adult Goal: Maintains optimal cardiac output and hemodynamic stability Outcome: Progressing Goal: Absence of cardiac dysrhythmias or at baseline Outcome: Progressing Problem: Hematologic - Adult Goal: Maintains hematologic stability Outcome: Progressing [facility] [id number] Miscellaneous Notes* Care Plan - Shasta Badillo [...] Managment Initial Assessment Date: 04/07/2024 Patient Name: Jennifer Gonzalez : 1950 Patient Information Source of Information: Patient Cognition/Language: WFL - Within Functional Limits Permission given to speak with patient digital 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 as indicated: Yes Confirmation of Payer with patient/family: Yes Payer Name: [place]: No Confirmation of Primary Care Physician: Confirmed [...] Living Prescription Coverage: Yes [facility] Medication Management: Independent Transportation/Shopping: Independent Transportation Mode: [...] 253 new orders received. documented in this [facility]09-10-2024 Note* Care Coordination - Breonna Jimenez RN - 04/07/2024 2:40 PM EDT Care Managment Initial Assessment Date: 04/07/2024 Patient Name: Jennifer Gonzalez : 1950 Patient Information Source of Information: Patient Cognition/Language: WFL - Within Functional Limits Permission given to speak with patient digital 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 as indicated: Yes Confirmation of [...] Living Prescription Coverage: Yes Pharmacy Used: [facility] Medication Management: Independent Transportation/Shopping: Independent Transportation Mode: [...] and denies discharge needs. Breonna Jimenez RN [facility] [id number] Note* Care Coordination - Breonna Jimenez RN - 04/07/2024 2:40 PM EDT Care Managment Initial Assessment Date: 04/07/2024 Patient Name: Jennifer Gonzalez : 1950 Patient Information Source of Information: Patient Cognition/Language: WFL - Within Functional Limits Permission given to speak with patient digital 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 as indicated: Yes Confirmation of Payer with patient/family: Yes Payer Name: [employer] [place]: No Confirmation of Primary Care Physician: Confirmed [...] Living Prescription Coverage: Yes [facility] Medication Management: Independent Transportation/Shopping: Independent Transportation Mode: [...] Referral for: Additional Information: Patient admitted to [facility] ICU s/p TAVR complicated by CHB today requiring PPM. Spoke with patient and at bedside, introduced self and role. Patient from home with , is using a walker for ambulation otherwise is independent, has PCP and prescription coverage, willhave a ride home and denies discharge needs. Breonna Jimenez RN [facility]09-10-2024 Note Attestation signed by Calvin Barnard MD [...] Patient had RBBB and LAHB at baseline. 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 female with [...] rash around neck--resolved after stopping med; hands "froze" with stiffness that started a week after taking a couple pills--resolving Medications: Current Outpatient Medications Medication Instructions aspirin 81 mg, Oral, Daily calcium carbonate 500 mg, Oral, Daily glimepiride (Amaryl) 4 MG tablet 1 tablet, Oral, 2 times daily with meals Magoklyqvil-Raihfyvoj-Ztz C-Mn (GLUCOSAMINE 1500 COMPLEX PO) Oral [employer] [...] (Temporal) Resp 23 Ht 1.499 m (4' 11") Wt 110 kg (243 lb) SpO2 93% [...] dry. Eyes: Extraocular Mo (more content not included)...[facility] [employer] [facility] [id number] Consult note* Eric Okeefe MD - 04/07/2024 11:59 AM EDT [facility] [place] [facility] Cardiology /Electrophysiology Consult Note Reason for Consult/Chief Complaint: Complete heart block Referring provider: Ayah Martínez office technology professor: Ayah History of Present Illness: Jennifer Gonzalez is a 73 y.o. female who [...] EGFR >90.0 78.1 No results for input(s): "CKTOTAL", "CKMB", "CKMBINDEX", "TROPONINI" in the last 72 hours. Recent Labs 04/06/24142104/07/24 0007 WBC 7.2 9.3 HGB 11.7 13.1 HCT 36.1 40.5 MCV 93.8 93.1 PLT 156 168 No results found for: "HGBA1C" No results found for: "TSH" No results found for: "CHOL" No results found for: "HDL" No results found for: "LDLCALC" No results found for: "TRIG" No results found for: "CHOLHDL" No results found for: "LDLCHOLESTER" No results for input(s): "BNP" in the last 72 hours. No results for input(s): "INR" in the last 72 hours. Results from [...] AM (Final) Interpretation Summary Aortic Valve: Marsh Katharine 3 Ultra bioprosthetic aortic valve with a [...] (Final) Conclusion Successful TAVR with a 23mm Katharine S3u, via right transfemoral approach TAVR Procedural Report Interventional Cardiologists: -Srinivasa Poon MD -Devaughn Young MD (Fellow) Cardiothoracic Surgeon: -Jayson Key MD Procedure: 1. A 23 KATHARINE S3 VALVE IMPLANTATION. 2. TRANSFEMORAL TRANSCATHETER AORTIC [...] Via the right femoral vein, a 6 Kittitian sheath was placed and temporary pacing wire was placed into the RV apex with appropriate capture, in addition sterile tubing was attached and given theanesthesia for central access. Via right radial artery, a 6-Kittitian sheath was placed and the pigtail catheter was placed into the aortic annulus with confirmation the implant angle. Via the right femoral artery, a 6-Kittitian sheath was placed. The patient was then heparinized. Next, two Perclose devices were used using the pre-close strategy. A Super Stiff wire was then placed through the second Perclose into the descending aorta. Then, a 14-Kittitian Katharine E-sheath was introduced over the wire into [...] AL1 catheter was removed. Next a 23mm Katharine S3 valve was then advanced through the [...] care of your patient while hospitalized at [facility]. I will continue to follow along while hospitalized. Please do not hesitate to call with any questions. Signed by: Srinivasa Poon MD on 04/06/2024 1:41 PM EF BP Date Value Ref Range Status 04/07/2024 66 55 - 100 % Final Eric Okeefe MD DATE of SERVICE: 04/07/2024 [facility] [employer] Work Phone: [phone] 820-261509-10-2024 Consult note* Eric Okeefe MD - 04/07/2024 11:59 AM EDT [facility] [place] [facility] Cardiology /Electrophysiology Consult Note Reason for Consult/Chief Complaint: Complete heart block Referring provider: Ayah Established office technology professor: Ayah History of Present Illness: Jennifer Gonzalez is a 73 y.o. female who [...] EGFR >90.0 78.1 No results for input(s): "CKTOTAL", "CKMB", "CKMBINDEX", "TROPONINI" in the last 72 hours. Recent Labs 04/06/24142104/07/24 0007 WBC 7.2 9.3 HGB 11.7 13.1 HCT 36.1 40.5 MCV 93.8 93.1 PLT 156 168 No results found for: "HGBA1C" No results found for: "TSH" No results found for: "CHOL" No results found for: "HDL" No results found for: "LDLCALC" No results found for: "TRIG" No results found for: "CHOLHDL" No results found for: "LDLCHOLESTER" No results for input(s): "BNP" in the last 72 hours. No results for input(s): "INR" in the last 72 hours. Results from [...] AM (Final) Interpretation Summary Aortic Valve: Marsh Katharine 3 Ultra bioprosthetic aortic valve with a [...] (Final) Conclusion Successful TAVR with a 23mm Katharine S3u, via right transfemoral approach TAVR Procedural Report Interventional Cardiologists: -Srinivasa Poon MD -Devaughn Young MD (Fellow) Cardiothoracic Surgeon: -Jayson Key MD Procedure: 1. A 23 KATHARINE S3 VALVE IMPLANTATION. 2. TRANSFEMORAL TRANSCATHETER AORTIC [...] Via the right femoral vein, a 6 Kittitian sheath was placed and temporary pacing wire was placed into the RV apex with appropriate capture, in addition sterile tubing was attached and given theanesthesia for central access. Via right radial artery, a 6-Kittitian sheath was placed and the pigtail catheter was placed into the aortic annulus with confirmation the implant angle. Via the right femoral artery, a 6-Kittitian sheath was placed. The patient was then heparinized. Next, two Perclose devices were used using the pre-close strategy. A Super Stiff wire was then placed through the second Perclose into the descending aorta. Then, a 14-Kittitian Katharine E-sheath was introduced over the wire into [...] AL1 catheter was removed. Next a 23mm Katharine S3 valve was then advanced through the [...] care of your patient while hospitalized at [facility]. I will continue to follow along while hospitalized. Please do not hesitate to call with any questions. Signed by: Srniivasa Poon MD on 04/06/2024 1:41 PM EF BP Date Value Ref Range Status 04/07/2024 66 55 - 100 % Final Eric Okeefe MD DATE of SERVICE: 04/07/2024 * Tracey Solomon MD - 04/07/2024 10:40 AM EDTAssociated Order(s): IP CONSULT TO CARDIOLOGY [facility] [place] [facility] Cardiology /Electrophysiology Consult Note Reason for Consult/Chief Complaint: AV Block s/p TAVR Established office technology professor: Ayah History of Present Illness: Jennifer Gonzalez is a 73 y.o. female with [...] Behavior: Behavior normal. Laboratory Tests: Recent Labs 04/06/242 04/07/24 0007 NA 137 136 K 3.4* 4.1 CL 112* 109* CO2 21* 23 BUN 17 20* CREATININE 0.55 0.79 EGFR >90.0 78.1 No results for input(s): "CKTOTAL", "CKMB", "CKMBINDEX", "TROPONINI" in the last 72 hours. Recent Labs 04/06/24 14204/07/24 0007 WBC 7.2 9.3 HGB 11.7 13.1 HCT 36.1 40.5 MCV 93.8 93.1 PLT 156 168 No results found for: "HGBA1C" No results found for: "TSH" No results found for: "CHOL" No results found for: "HDL" No results found for: "LDLCALC" No results found for: "TRIG" No results found for: "CHOLHDL" No results found for: "LDLCHOLESTER" No results for input(s): "BNP" in the last 72 hours. No results for input(s): "INR" in the last 72 hours. Results from last 7 days Lab Units 04/01/24 0000 AST U/L 21 ALT U/L 26 No results found for: "IRON", "TIBC", "FERRITIN" Cardiac Tests Personally Reviewed: Last EKG 04/06/24 [...] be incomplete. Interpretation Summary Aortic Valve: Marsh Katharine 3 Ultra bioprosthetic aortic valve with a [...] (Final) Conclusion Successful TAVR with a 23mm Katharine S3u, via right transfemoral approach TAVR Procedural Report Interventional Cardiologists: -Srinivasa Poon MD -Devaughn Young MD (Fellow) Cardiothoracic Surgeon: -Jayson Key MD Procedure: 1. A 23 KATHARINE S3 VALVE IMPLANTATION. 2. TRANSFEMORAL TRANSCATHETER AORTIC [...] Via the right femoral vein, a 6 Kittitian sheath was placed and temporary pacing wire was placed into the RV apex with appropriate capture, in addition sterile tubing was attached and given theanesthesia for central access. Via right radial artery, a 6-Kittitian sheath was placed and the pigtail catheter was placed into the aortic annulus with confirmation the implant angle. Via the right femoral artery, a 6-Kittitian sheath was placed. The patient was then heparinized. Next, two Perclose devices were used using the pre-close strategy. A Super Stiff wire was then placed through the second Perclose into the descending aorta. Then, a 14-Kittitian Katharine E-sheath was introduced over the wire into [...] AL1 catheter was removed. Next a 23mm Katharine S3 valve was then advanced through the [...] care of your patient while hospitalized at [facility]. I will continue to follow along [...] Phase II Cardiopulmonary Rehab Referral discussed with Jennifer Gonzalez. Patient prefers cardiopulmonary rehab at [facility]. Given information on program at preferred location. documented in this [facility]09-10-2024 Nurse Note* Shasta Badillo RN - 04/07/2024 [...] 110- 120s. All other VSS. Lindsey Tolentino, ROBOTIC MAINTENANCE TECHNICIAN tobedside. EP consult ordered. 1138: Pt had another episode of tachycardia with HR in 170s. All other VSS. Pt asymptomatic 1159: Dr. Okeefe to bedside for EP consult. Plan to take patient for permanent pacemaker placement. 1215: Pt taken to EP lab for Pacemaker placement. Consent signed. [id number] Nurse Note* Shasta Badillo RN - 04/07/2024 [...] unresponsive with labored breathing. Code Blue called. Minh RN pushed 1 mg atropine with return of patient to a perfusing bradycardic rhythm prior to CPR being initiated. Pt regained consciousness and denied any discomfort. 1058: Dr. Lucas to bedside. Pacing pads placed on patient and connected to defibrillator, transcutaneous pacing not initiated at this time as pt HR 110- 120s. All other VSS. Lindsey Tolentino, ROBOTIC MAINTENANCE TECHNICIAN tobedside. EP consult ordered. 1138: Pt had another episode of tachycardia with HR in 170s. All other VSS. Pt asymptomatic 1159: Dr. Okeefe to bedside for EP consult. Plan to take patient for permanent pacemaker placement. 1215: Pt taken to EP lab for Pacemaker placement. Consent signed. documented in this [facility]09-10-2024 Consult note* Tracey Solomon MD - 04/07/2024 10:40 AM EDTAssociated Order(s): IP CONSULT TO CARDIOLOGY [facility] [place] [facility] Cardiology /Electrophysiology Consult Note Reason for Consult/Chief Complaint: AV Block s/p TAVR Established office technology professor: Ayah History of Present Illness: Jennifer Gonzalez is a 73 y.o. female with [...] EGFR >90.0 78.1 No results for input(s): "CKTOTAL", "CKMB", "CKMBINDEX", "TROPONINI" in the last 72 hours. Recent Labs 04/06/24 1422 04/07/24 0007 WBC 7.2 9.3 HGB 11.7 13.1 HCT 36.1 40.5 MCV 93.8 93.1 PLT 156 168 No results found for: "HGBA1C" No results found for: "TSH" No results found for: "CHOL" No results found for: "HDL" No results found for: "LDLCALC" No results found for: "TRIG" No results found for: "CHOLHDL" No results found for: "LDLCHOLESTER" No results for input(s): "BNP" in the last 72 hours. No results for input(s): "INR" in the last 72 hours. Results from last 7 days Lab Units 04/01/24 0000 AST U/L 21 ALT U/L 26 No results found for: "IRON", "TIBC", "FERRITIN" Cardiac Tests Personally Reviewed: Last EKG 04/06/24 [...] be incomplete. Interpretation Summary Aortic Valve: Marsh Katharine 3 Ultra bioprosthetic aortic valve with a [...] (Final) Conclusion Successful TAVR with a 23mm Katharine S3u, via right transfemoral approach TAVR Procedural Report Interventional Cardiologists: -Srinivasa Poon MD -Devaughn Young MD (Fellow) Cardiothoracic Surgeon: -Jayson Key MD Procedure: 1. A 23 KATHARINE S3 VALVE IMPLANTATION. 2. TRANSFEMORAL TRANSCATHETER AORTIC [...] Via the right femoral vein, a 6 Kittitian sheath was placed and temporary pacing wire was placed into the RV apex with appropriate capture, in addition sterile tubing was attached and given theanesthesia for central access. Via right radial artery, a 6-Kittitian sheath was placed and the pigtail catheter was placed into the aortic annulus with confirmation the implant angle. Via the right femoral artery, a 6-Kittitian sheath was placed. The patient was then heparinized. Next, two Perclose devices were used using the pre-close strategy. A Super Stiff wire was then placed through the second Perclose into the descending aorta. Then, a 14-Kittitian Katharine E-sheath was introduced over the wire into [...] AL1 catheter was removed. Next a 23mm Katharine S3 valve was then advanced through the [...] care of your patient while hospitalized at [facility]. I will continue to follow along [...] Tracey Solomon MD DATE of SERVICE: 04/07/2024 [employer] Work Phone: [phone]) 524-850809-10-2024 [facility] [place] [facility] Cardiology /Electrophysiology Progress Note HPI / Interval [...] PLT 156 168 No results for input(s): "CKTOTAL", "CKMB", "CKMBINDEX", "TROPONINI" in the last 72 hours. No results for input(s): "BNP" in the last 72 hours. No results for input(s): "TRIG", "HDL", "LDLCALC", "CHOL" in the last 72 hours. No results found for: "LDLCHOLESTER" No results found for: "TSH" EF BP Date Value Ref Range Status 04/07/2024 66 55 - 100 % Preliminary 04/06/24 TRANSTHORACIC ECHOCARDIOGRAM (TTE) COMPLETE (CONTRAST/BUBBLE/3D PRN) (Preliminary) This result has not been signed. Information might be incomplete. Interpretation Summary Aortic Valve: Marsh Katharine 3 Ultra bioprosthetic aortic valve with a [...] 66 55 - 100 % Preliminary Lindsey Tolentino APRN - ROBOTIC MAINTENANCE TECHNICIAN Date Of Service 04/07/2024[facility]09-10-2024 Consult note* Malika Greenberg - 04/07/2024 9:08 AM EDTAssociated Order(s): IP CONSULT TO CARDIAC REHAB Received referral and reviewed chart. Phase II Cardiopulmonary Rehab Referral discussed with Jennifer Gonzalez. Patient prefers cardiopulmonary rehab at [facility]. Given information on program at preferred location. [id number] NoteReceived referral and reviewed chart. Phase II Cardiopulmonary Rehab Referral discussed with Jennifer Gonzalez. Patient prefers cardiopulmonary rehab at [facility]. Given information on program at preferred location. [facility]09-09-2024 Plan of care note* Care Plan - [...] these barriers includecontinue to reinforce and monitor. [id number] NotePatient was transferred to CCU team for stabilization and need for pacer placement when evidence of heart block developed POD1. Please see CCU team notes and discharge summary.[facility]09-09-2024 Hospital Discharge instructions* Discharge Instructions* Pita Marr APRN - DANILO - 04/06/2024 4:27 PM EDT - Please call the Heart Valve Clinic with any questions: [phone] -You will have have the following follow [...] in CPR. Call the Device Clinic at [phone] if you have any questions regarding your incision, pacemaker, or follow-up appointments documented in this [facility]09-09-2024 NotePatient: Jennifer Gonzalez Procedure Summary Date: 04/06/24 Room / Location: [facility] Operating Room Anesthesia Start: 1148 [...] discharged once all PACU criteria has been met.[facility] [id number] NotePatient: Jennifer Gonzalez Procedure Summary Date: 04/06/24 Room / Location: [facility] Operating Room Anesthesia Start: 1148 [...] Allowed opportunity for questions and acknowledgement of understanding.[facility]09-09-2024 NoteArterial Line: Date/Time: 04/06/2024 12:28 PM [...] Staffing Performed: Other Other staff: Srinivasa Poon, [facility]09-09-2024 NoteH&P reviewed. The patient was examined and there are no changes to the H&P.[facility]09-09-2024 Note* Perioperative Nursing Note - Tamela Lai RN - 04/06/2024 9:[address] Hernandez made aware of MBS 253 new orders received. [id number] Note* Perioperative Nursing Note - Tamela Lai RN - 04/06/2024 9:[address] Hernandez made aware of MBS 253 new orders received. [id number] Note Attestation signed by Srinivasa Poon MD at 04/06/2024 10:28 PM I, Dr. Poon, saw and evaluated the patient. I personally obtained the parker and critical portions of the history and physical exam. I reviewed the chart and discussed the patient with the Nurse Practitioner. I agree with the Nurse Practitioner's medical decision making. I spoke with Jennifer Gonzalez this morning. she tells me that nothing has changed clinically since our last office visit. We will proceed with the planned procedure. Srinivasa Poon MD Cardiology Nonrheumatic aortic valve stenosis +1 more Dx Cardiac Valve Problem New Patient ; Referred by Ac Hubbard Reason for Visit Progress Notes Srinivasa Poon MD (Physician) Cardiology Expand All Collapse All [facility] CARDIOLOGY [address] [facility] [address] Dept: [phone] Dept Visit type: New : 1950 Reason for Visit: Cardiac Valve Problem and New Patient (Heart Valve Clinic) Assessment and Plan 1. Nonrheumatic aortic valve stenosis 2. PAF (paroxysmal atrial fibrillation) ([facility]) - ECG 12 lead - CLINIC [...] up for Recheck after TAVR. Subjective HPI Jennifer Gonzalez is a very pleasant 73 y.o. [...] rash around neck--resolved after stopping med; hands "froze" with stiffness that started a week after [...] tablet in the evening. Take with meals. Qtjqxtftlhq-Ckftyymae-Bem C-Mn (GLUCOSAMINE 1500 COMPLEX PO) Take by [...] History Problem Relation Name (more content not included)...[facility] 04-03-2024 Note Attestation signed by Srinivasa Poon MD at 04/06/2024 10:28 PM I, Dr. Poon, saw and evaluated the patient. I personally obtained the parker and critical portions of the history and physical exam. I reviewed the chart and discussed the patient with the Nurse Practitioner. I agree with the Nurse Practitioner's medical decision making. I spoke with Jennifer Gonzalez this morning. she tells me that nothing has changed clinically since our last office visit. We will proceed with the planned procedure. Srinivasa Poon MD Cardiology Nonrheumatic aortic valve stenosis +1 more Dx Cardiac Valve Problem New Patient ; Referred by Ac Hubbard Reason for Visit Progress Notes Srinivasa Poon MD (Physician) Cardiology Expand All Collapse All [facility] CARDIOLOGY [address] [place] [address] Dept: [phone] Dept Visit type: New : 1950 Reason for Visit: Cardiac Valve Problem and New Patient (Heart Valve Clinic) Assessment and Plan 1. Nonrheumatic aortic valve stenosis 2. PAF (paroxysmal atrial fibrillation) ([facility]) - ECG 12 lead - CLINIC [...] up for Recheck after TAVR. Subjective HPI Jennifer Gonzalez is a very pleasant 73 y.o. [...] rash around neck--resolved after stopping med; hands "froze" with stiffness that started a week after [...] tablet in the evening. Take with meals. Rkruuzfuwfb-Jhifcuhoi-Vxg C-Mn (GLUCOSAMINE 1500 COMPLEX PO) Take by [...] History Problem Relation Name (more content not included)...[facility] 04-02-2024 NotePre TAVR phone call placed. Reviewed, procedure, instructions and meds. Pt verbalizes understanding. Pt knows to call [phone] with any concerns. Gloria Davis APRN notified for prep for proc orders. Diagnosis: Procedure being done: TAVR Date/time of procedure: 04/06/24 11 am Surgeon: Dr. Poon 2nd surgeon: Dr. Key Admission type: To be admitted Anesthesia: MAC Completed: H&P/EKG/CBC/CMP/CXR Date completed: 04/01/24 Additional orders will need T&S morning [facility]SFormer[facility] NotePatient: Jennifer Gonzalez Procedure Information Date/Time: 04/06/24 1100 Procedures: TRANSCATHETER AORTIC VALVE REPLACEMENT, TRANSTHORACIC ECHOCARDIOGRAM TRANSCATHETER AORTIC VALVE REPLACEMENT, TRANSTHORACIC ECHOCARDIOGRAM (Chest) Location: [facility] Operating Room Surgeons: Srinivasa Poon MD; Renzo Horta, DO Relevant Problems No relevant active problems [...] in media under external cardiology Radha Marquez, VICE PRESIDENT PLANNING - ROBOTIC MAINTENANCE TECHNICIAN JUDITH Screening Labs: No results found for: "WBC", "HGB", "HCT", "MCV", "PLT" No results found for: "NA", "K", "CL", "CO2", "BUN", "CREATININE", "GLUCOSE", "CALCIUM", "PROT", "BILIRUBINFL", "ALKPHOS", "AST", "ALT", "EGFR", "GLOB" No echocardiogram results found for the past 14 days 03/10/24 ECG 12-LEAD 03/12/2024 10:37 PM (Final) Narrative Sinus Rhythm -Right bundle branch block and right axis -possible right ventricular hypertrophy -consider pulmonary disease. -Old anteroseptal infarct. -T-abnormality -Possible Anterolateral and inferior ischemia. ABNORMAL Signed by: Srinivasa Poon MD on 03/12/2024 10:37 PM Equipment Requests: Additional Equipment [facility]. [facility]08-[facility]-2024 NoteTAVR procedure, instructions reviewed with pt and . Patient scheduled for TAVR on 04/06/24 at 11 am Will report to [facility] by 9 am Can park in the [facility] Parking Deck or use [employer] parking at the [facility] entrance Plan on overnight stay in the [...] with any questions/concerns Pre-op testing done in [place] at least 1 week before. Provided patient with lab orders. CXR completed in December Patient/family verbalized understanding.[facility]08-14-2024 Note Dx: Procedure: TAVR Date/Time: 04/06/24 at 11:00a Surgeon: PB Location: [facility] Ad[facility] Anesthesia: [facility]08-13-2024 Evaluation + Plan note* Assessment & Plan Note - Ira Aquino MD - 03/10/2024 4:42 PM EDTAssociated Problem(s): Dizziness Likely multifactorial Encouraged patient to change positions slowly to avoid dizziness and falls Encouraged continued follow-up with PCP (primary care provider) and cardiology regarding her dizziness - patient and agree/confirm understanding monitor [place] [id number] Miscellaneous Notes* Assessment & Plan Note - [...] have patient schedule appt with us at [facility] for baseline memory testing I suspect [...] agree with cardiology plan as discussed with office technology professor on same date regarding next steps for further workup/treatment of cardiac disease which likely includes TAVR. On this date of evaluation, the patient has sufficient understanding of procedure(s) to consent to the procedure(s) being discussed and has adequate social support(s). documented in this encounterSProMedica Fostoria Community [id number] Evaluation + Plan note* Assessment & Plan Note - Ira Aquino MD - 03/10/2024 4:41 PM EDTAssociated Problem(s): Memory loss Chronic Patient had had c/o memory loss for AWV (Annual Wellness Visit) from 02/25/24 but declined a geriatrics referral at that time I strongly encouraged patient/ to have patient schedule appt with us at [facility] for baseline memory testing I suspect either MCI (Mild Cognitive Impairment) or mild dementia based on my conversation with patient in our visit today [facility] [id number] Evaluation + Plan note* Assessment & Plan Note - Ira Aquino MD - 03/10/2024 4:28 PM EDTAssociated Problem(s): Polypharmacy Reviewed med list with patient/ Advised patient speak with PCP (primary care provider) regarding alternative medication for diabetes other than glimepiride given risk of falls, hypoglycemia -patient/ amenable to this suggestion Recommended patient begin to use pillbox. [facility] [id number] Evaluation + Plan note* Assessment & Plan [...] voice understanding and agreement with this plan. [facility] [id number] Evaluation + Plan note* Assessment & Plan [...] etc. - patient/ amenable to this recommendation [facility] [id number] Note02/19/24 A1c 7.9% Discussed with patient and her the recommendation to have education surrounding how to use new glucometer/test strips so she can check her BG at home due to diabetes and falls as well as dizziness and patient taking glimepiride which has high risk of causing hypoglycemia, dizziness, confusion, falls, etc. - patient/ amenable to this [facility]08-13-2024 Evaluation + Plan note* Assessment & Plan Note - Ira Aquino MD - 03/10/2024 4:16 PM EDTAssociated Problem(s): Severe aortic stenosis I agree with cardiology plan as discussed with office technology professor on same date regarding next steps for further workup/treatment of cardiac disease which likely includes TAVR. On this date of evaluation, the patient has sufficient understanding of procedure(s) to consent to the procedure(s) being discussed and has adequate social support(s). [facility] [id number] History of Present illness Narrative* Ira Aquino MD - 03/10/2024 3:30 PM EDT Images from the original note were not included. [facility] CARDIOLOGY [address] [facility] [address] Dept: [phone] Dept Loc: [phone] Today's Visit Location: TAVR (transcather aortic valve replacement) Clinic [facility] Cardiology [address] [place] [address] Visit type: [facility] Assessment at TAVR (transcather aortic valve replacement) Clinic Visit Date: 03/10/2024 Reason for Visit: Other (Aortic Stenosis) Assessment and Plan 1. Severe aortic stenosis Assessment & Plan: I agree with cardiology plan as discussed with office technology professor on same date regarding next steps for [...] have patient schedule appt with us at [facility] for baseline memory testing I suspect [...] up or missing doses (which can be dangerous)." Subjective HPI: Jennifer Gonzalez is a 73 y.o. female who [...] Total points: 4 History obtained from caregiver(s): "Reece" accompanies patient to today's appt AWV (Annual Wellness Visit) performed on 02/25/24 per Care Everywhere indicates: worsening memory, frequent imbalance/falls. Noticing memory is not as good. Some concerns about this. Takes time to remember. More falls, balance is not as good because of arthritis. Using a walker outside of the home now." PMHx of Hypertension, SVT, Paroxysmal A fib, COVID 04/2020, Diabetes, previous cath revealed no coronary disease; CTA performed on 03/10/24. Examples of difficulties patient is experiencing: Positional dizziness Transthoracic Echo (TTE): 01/08/2024 - MG56, EF 70%, BENITA 0.7cm (per my communication with cardiologyNurse Practitioner Sunita Davis) Per note from Julienne Kumar from 03/06/24, she documents: "Per note, patient with past medical history HTN, [...] aortic valve stenosis with recommendation of TAVR. " History obtained from patient: Increased fatigue. Less exercise tolerance. Must take a break long-term up stairs. Dizzy with quick changes in position. I don't walk much so I don't have a lot of shortness of breath. But I just feel like I am tired orfatigued a lot." Doesn't become short of breath just walking in house along main floor. Doesn't use any ambulatory aide in home but does use walker/wheelchair when out and about. daytime fatigue/hypersomnolence: patient advised "Please talk with your PCP (primary care provider)Sharon Mcclellan regarding possible sleep apnea testing which can reduce fatigue if you have it diagnosed and start CPAP if necessary." Able to identify : YES Current events: Does know current [place] President ("TEJA Ortiz"). What is the name of the recent virus/pandemic? Patient does know about COVID19 pandemic. CAN'T RECALL THE NAME of covid despite "oh I had that twice!" Type 2 Diabetes Takes glimepiride 4mg daily, [...] rash around neck--resolved after stopping med; hands "froze" with stiffness that started a week after taking a couple pills--resolving Current Outpatient Medications Medication Sig Dispense Refill aspirin 81 MG EC tablet Take 81 mg by mouth daily. calcium carbonate 500 MG chewable tablet Chew 500 mg daily. glimepiride (Amaryl) 4 MG tablet Take 1 tablet by mouth in the morning and 1 tablet in the evening.Take with meals. Xicatrhezpp-Jzqrrgxbh-Rzx C-Mn (GLUCOSAMINE 1500 COMPLEX PO) Take by [...] Cuff Size: Adult) Pulse 87 Ht 4' 11" (1.499 m) Wt 249 lb 1.9 oz [...] and phrases are mis-transcribed.) documented in this [facility]08-13-2024 Instructions* Patient Instructions* Ira Aquino MD [...] (which can be dangerous). documented in this [facility]08-13-2024 History of Present illness Narrative* Renzo Horta DO - 03/10/2024 3:00 PM EDT Images from the original note were not included. [facility]: Cardiothoracic Surgery Multidisciplinary Heart Valve Clinic Date: 03/10/24 Patient:Jennifer Gonzalez 1950 73 y.o. female [id number] Subjective: HPI: Jennifer Gonzalez [address] Hubbard [...] the evening.Take with meals. 11/15/23 Historical Provider, Dzhsasmbzne-Saorixqpt-Rlb C-Mn (GLUCOSAMINE 1500 COMPLEX PO) Take by [...] Cuff Size: Adult) Pulse 87 Ht 4' 11" (1.499 m) Wt 249 lb 1.9 oz (113 kg) SpO2 97% BMI 50.32 kg/m Physical Exam Vitals: BP 128/72 (BP Location: Left arm, Patient Position: Sitting, BP Cuff Size: Adult) Pulse 87 Ht 4' 11" (1.499 m) Wt 249 lb 1.9 oz [...] Reviewed in EMR No results found for: "WBC", "HGB", "HCT", "MCV", "PLT" No results found for: "NA", "K", "CL", "CO2", "BUN", "CREATININE", "GLUCOSE", CALCIUM Diagnostics: Reviewed in EMR Assessment/Plan: Mrs. [...] personally performed the evaluation and management of Jennifer Gonzalez in the development of a treatment [...] electronic health record on the day of encounter. Electronically signed by Renzo Horta DO, [...] echocardiography,and other diagnostic images. documented in this [facility]08-13-2024 History of Present illness Narrative* Srinivasa Poon MD - 03/10/2024 2:30 PM EDT Images from the original note were not included. [facility] CARDIOLOGY [address] [facility] [address] Dept: [phone] Dept Visit type: New : 1950 Reason for Visit: Cardiac Valve Problem and New Patient (Heart Valve Clinic) Assessment and Plan 1. Nonrheumatic aortic valve stenosis 2. PAF (paroxysmal atrial fibrillation) ([facility]) - ECG 12 lead - CLINIC [...] up for Recheck after TAVR. Subjective HPI Jennifer Gonzalez is a very pleasant 73 y.o. [...] rash around neck--resolved after stopping med; hands "froze" with stiffness that started a week after taking a couple pills--resolving Outpatient Medications Prior to Visit Medication Sig Dispense Refill aspirin 81 MG EC tablet Take 81 mg by mouth daily. calcium carbonate 500 MG chewable tablet Chew 500 mg daily. glimepiride (Amaryl) 4 MG tablet Take 1 tablet by mouth in the morning and 1 tablet in the evening.Take with meals. Gskgggfghge-Bneylnhen-Egv C-Mn (GLUCOSAMINE 1500 COMPLEX PO) Take by [...] Weight: 250 lb (113 kg) Height: 4' 11.5" (1.511 m) Physical Exam Constitutional: General: She [...] Reviewed and Summarized No results found for: "EFBP", "PLVEF", "LVEFPHYS", "LVEF2D", "EF" Review of tests/labs done/ordered within my specialty: EKG in office: Review of tests/labs done/ordered outside my specialty: Independent interpretation of tests: I personally reviewed the images from Jennifer Gonzalez's most recent TTE and cath in the office today, to help with medical decision making. My interpretation is noted in the HPI section of this note. Srinivasa Poon MD documented in this [facility]08-09-2024 Telephone encounter Note* Telephone Encounter - Abby Mcclellan MD - 03/06/2024 6:06 PM EDT The following approved medication requests have been transmitted electronically. Requested Prescriptions Signed Prescriptions Disp Refills metFORMIN (GLUCOPHAGE) 500 mg tablet 180 tablet 3 Sig: Take 2 tablets by mouth two times a day with meals. Authorizing Provider: ABBY MCCLELLAN MD [facility]08-09-2024 Miscellaneous Notes* Telephone Encounter - Abby [...] 06, 2024 1:33 PM documented in this encounterPrem[facility]08-[facility] Telephone encounter Note * Telephone Encounter - Chrissy Dawn LPN - 03/06/2024 2:03 PM EDT In review this is a new pharmacy. Rx would be needed. [facility]08-09-2024 Telephone encounter Note* Telephone Encounter - [...] Keisha Petersen March 06, 2024 1:33 PM [facility]07-30-2024 Instructions* Patient Instructions* Kamlesh Acosta APRN.ROBOTIC MAINTENANCE TECHNICIAN - 02/25/2024 11:31 AM EDT Screening schedule [...] review all the medicines you take, even oerr-arw-ygaarjz medicines. As you get older, the way [...] review all the medicines you take, even uykw-idn-byvbhpc medicines. As you get older, the way [...] have certain medical conditions. documented in this encounterPrem[facility]07-30-2024 NoteHNO ID: [id number] Author: KAMLESH ACOSTA APRN.CNP Service: ? Author [...] (Internal Medicine) Outside specialists seen: cardiology with [facility] Medical/Family history review Reviewed and [...] kg/m? Vision Screening: Follows with optometry/ophthalmology SUBJECTIVE Jennifer Gonzalez is a 73 year old female here today for a check up on her medical problems. Chief Complaint Patient presents with: Medicare Wellness Exam 4 month folllow up HPI Jennifer Gonzalez is a 73 year old female. [...] rash around neck--resolved after stopping med; hands "froze" with stiffness that started a week after taking a couple pills--resolving ACTIVE PROBLEM LIST Cognitive Impairment - 02/25/2024 Paf (Paroxysmal Atrial Fibrillation) (Hcc) - 12/07/2021 Comment: [facility] Nonrheumatic Aortic Valve Stenosis - 12/07/2021 Comment: [facility], echo 2021 [facility] Status Post Right Hip Replacement - 12/23/2019 Difficulty in Walking Involving Lower Leg Joint Acid Indigestion - 03/26/2016 Polycythemia, Secondary - 03/28/2011 Comment: This was abnormal, seen by , testing was normal. Generalized Osteoarthrosis, Involving Multiple Sites - 05/10/2008 Diabetes Mellitus ([facility]) - 10/20/2007 Hypertension Goal Bp (Blood Pressure) < 140/90 - 10/12/2005 Hyperlipidemia Associated With Type 2 Diabetes Mellitus (Hcc) ([facility]) - 10/12/2005 Class 3 Severe Obesity Due to Excess Calories With Body Mass Index (Bmi) of 45.0 to 49.9 in Adult ([facility]) Social History Tobacco Use Smoking status: Never Smokeless tobacco: Never Substance Use Topics Alcohol use: No Drug use: No Review of Systems Constitutional: Negative. Respiratory: (more content not included)...[facility]07-30-2024 History of Present illness Narrative* Kamlesh Acosta APRN.DANILO - 02/25/2024 11:21 AM EDT Images from [...] (Internal Medicine) Outside specialists seen: cardiology with [facility] Medical/Family history review Reviewed and [...] kg/m Vision Screening: Follows with optometry/ophthalmology SUBJECTIVE Jennifer Gonzalez is a 73 year old female here today for a check up on her medical problems. Chief Complaint Patient presents with: Medicare Wellness Exam 4 month folllow up HPI Jennifer Gonzalez is a 73 year old female. Recent work up with cardiology, sees [facility]. Had an ECHO and a [...] Take 1 tablet by mouth once daily. BRANONN-600 WITH VITAMIN D 600 MG-200 UNIT [...] rash around neck--resolved after stopping med; hands "froze" with stiffness that started a week after taking a couple pills--resolving ACTIVE PROBLEM LIST Cognitive Impairment - 02/25/2024 Paf (Paroxysmal Atrial Fibrillation) ([facility]) - 12/07/2021 Comment: [facility] Nonrheumatic Aortic Valve Stenosis - 12/07/2021 Comment: [facility], echo [facility] Status Post Right Hip Replacement - 12/23/2019 Difficulty in Walking Involving Lower Leg Joint Acid Indigestion - 03/26/2016 Polycythemia, Secondary - 03/28/2011 Comment: This was abnormal, seen by , testing was normal. Generalized Osteoarthrosis, Involving Multiple Sites - 05/10/2008 Diabetes Mellitus ([facility]) - 10/20/2007 Hypertension Goal Bp (Blood Pressure) < 140/90 - 10/12/2005 Hyperlipidemia Associated With Type 2 Diabetes Mellitus ([facility]) ([facility]) - 10/12/2005 Class 3 Severe Obesity Due to Excess Calories With Body Mass Index (Bmi) of 45.0 to 49.9 in Adult ([facility]) Social History Tobacco Use Smoking status: Never [...] on chronic conditions and medications.. Kamlesh Acosta APRN-ROBOTIC MAINTENANCE TECHNICIAN documented in this encounterPremier [facility]04-19-2024 Miscellaneous Notes* Addendum Note - Kamlesh Acosta APRN.CNP - 11/15/2023 12:08 PM EDTAddended by: KAMLESH ACOSTA on: 11/15/2023 12:08 PM Modules accepted: Orders * Telephone Encounter - Saji Choudhury LPN - 11/15/2023 11:51 AM EDT Pt calls to state a short term supply for glimepiride was supposed to go to [facility]. Looks like on 11/12, short term supply also went to mail away pharmacy. Also, the sig needs updated, pt states glimepiride was increased to 2 tablets daily, not 1. Rx pending. Please review and advise. Saji Choudhury LPN documented in this encounterPremier Health [facility] Hospital04-17-2024 Miscellaneous Notes* Telephone Encounter - Zena [...] sent locally for a gap supply to [facility] and to the mail order at [facility] please send TREVOR Patient has been identified [...] notify patient. Trini Clements documented in this encounterPremier Health [facility] Hospital03-12-2024 Miscellaneous Notes* Telephone Encounter - Myranda [...] appt. Left a message. documented in this encounterPremier Health [facility] Hospital03-08-2024 History of Present illness Narrative* Kamlesh [...] address diabetes. Consult to Pharmacy order pended toP for consideration and signature. Nu Bruce RPh documented in this encounterPremier Health [facility] Hospital12-15-2023 Miscellaneous Notes* Telephone Encounter - Tanja Lester Ma - 07/12/2023 1:40 PM EST Patient notified. * Telephone Encounter - Ema Beltran APRN.CNP - 07/12/2023 1:03 PM EST It is not quite time to get her HgbA1c drawn. She has upcoming appointment with Kamlesh and A1c can bedone in office and/or be ordered at that time. Thank you Ema Beltran APRN.CNP * Telephone Encounter - Keily Gallardo - 07/12/2023 8:09 AM EST Hello! Patient came in requesting to get some lab work done, but there are no orders in. Please advise if patient needs labs done before her next 3 month follow up this month. Thank you! Keily. documented in this encounterPremier Health [facility] Hospital10-19-2023 Miscellaneous Notes* Telephone Encounter - Abby Mcclellan MD - 05/16/2023 12:01 PM EDT Okayed * Telephone Encounter - Inna Proctor - 05/16/2023 11:35 AM EDT Patient calling back [facility] did send her a meter and test strips. However, she just got a letter from [facility] stating they need a new script for [...] notify patient. Camille Clements documented in this encounterPremier Health [facility] Hospital10-02-2023 Miscellaneous Notes* Letter - Coordinator, Mammography - 04/29/2023 8:25 AM EDT April 29, 2023 PID: [id number] Jennifer Gonzalez [address] [place] [address] Dear Ms. Gonzalez, We are pleased to inform you that [...] report will be kept on file at [facility] as part of your permanent medical record and are available for your continuing care. Thank you for allowing us to help in meeting your health care needs. Sincerely, Dr. Alex Interpreting Radiologist [facility] (Normal over 40) documented in this encounterPremier Health [facility] Hospital09-29-2023 History of Present illness Narrative* Karla Armas, RT(R) - 04/26/2023 2:50 PM EDT Radiology Service Progress Note PATIENT NAME: Jennifer Gonzalez DATE OF SERVICE: April 26, 2023 [...] IV DATA: Not applicable SIGNED BY: RT Cha(R) April 26, 2023 2:43 PM documented in this encounterPremier Health [facility] Hospital09-29-2023 Miscellaneous Notes* Result Encounter Note - Heidy Hawk APRN.CNS - 04/26/2023 2:50 PM EDT Negative, 1 year screening follow-up documented in this [facility]09-22-2023 Instructions* Patient Instructions* Kamlesh Acosta APRN.CNP - 04/19/2023 12:12 PM EDT Follow up in 3 months but call if blood sugar checks are consistently running above 175 with the higher dose of glimepiride. documented in this encounterPremier Health [facility] Hospital09-22-2023 History of Present illness Narrative* Kamlesh Acosta APRN.CNP - 04/19/2023 11:57 AM EDT SUBJECTIVE Jennifer Gonzalez is a 72 year old female here today for a check up on her medical problems. Chief Complaint Patient presents with: 4 month follow up Cough: for about two weeks. Moist non-productive. fatigue HPI Jennifer Gonzalez is a 72 year old female [...] rash around neck--resolved after stopping med; hands "froze" with stiffness that started a week after taking a couple pills--resolving ACTIVE PROBLEM LIST Paf (Paroxysmal Atrial Fibrillation) ([facility]) - 12/07/2021 Comment: [facility] Moderate Aortic Stenosis By Prior Echocardiogram - 12/07/2021 Comment: [facility], echo [facility] Status Post Right Hip Replacement - [...] (Bmi) of 45.0 to 49.9 in Adult ([facility]) Social History Tobacco Use Smoking status: Never [...] hyperglycemia, without long-term current use of insulin ([facility]) - ICD9: 250.00, 790.29, ICD10: E11.65 [...] DM. Kamlesh Acosta APRN-DANILO documented in this encounterPremier Health [facility] Hospital06-25-2023 Miscellaneous Notes* Telephone Encounter - Abby [...] a True Metrix Glucose Meter [facility]. * Telephone Encounter - Barbaar Thompson Pss - 01/18/2023 1:15 PM EDT Jennifer is calling because [facility] is supposed to send her a glucometer, but keeps sending strips instead. Please send an order for her glucometer (she reports having a Next Luiz?) documented in this encounterPremier Health [facility] Hospital06-21-2023 History of Present illness Narrative* Genna [...] Payer: Payor: [employer] MEDICARE / Plan: [employer] Materia PLUS / Product Type: HMO / Care Gap Reviewed:: Follow-up appointment Advance Directive Reminder: Reminder note to check Health Maintenance for items below Health Maintenance items due: DIABETIC FOOT EXAM due on 02/14/2022 ADVANCE DIRECTIVE DISCUSSION due on 07/29/2022 Navigation Signature: Genna Steiner MA January 16, 2023 7:51 AM documented in this encounterPremier Health [facility]04-14-2023 Miscellaneous Notes* Telephone Encounter - Chrissy Dawn LPN - 11/09/2022 11:01 AM EDT Last seen pcp 08/14/22. Next appt is 12/17/22. * Telephone Encounter - Dina Sterling - 11/09/2022 10:03 AM EDT Patient has been identified by name and date of : Yes Requested Prescriptions Pending Prescriptions Disp Refills glimepiride (AMARYL) 2 mg tablet 90 tablet 3 Sig: Take 1 tablet by mouth daily with breakfast. RX INSTRUCTIONS: Patient aware RX will be sent to pharmacy. No need to notify patient. Dina Hopkins documented in this encounterPremier Health [facility]03-24-2023 Miscellaneous Notes* Telephone Encounter - Krista [...] The 10-year ASCVD risk score (Anna Marie GEORGE, et al., 2019) is: 34.5% Values used to calculate the score: Age: 72 years Sex: Female Is Non- : No Diabetic: Yes Tobacco smoker: No Systolic Blood Pressure: 130 mmHg Is BP treated: Yes HDL Cholesterol: 39 mg/dL Total Cholesterol: 191 mg/dL * Telephone Encounter - Dami Henriquez RN - 10/18/2022 3:37 PM EDT Khushboo Williamson called in and reports she had sent a fax in about the patient being a diabetic and that they are not on a Statin to help decrease the risk of Cardiovascular disease. She would likea call back to see how the provider has addressed this situation. documented in this encounterPremier Health [facility]01-03-2023 History of Present illness Narrative* Suzanne Zaidi RT(R) - 07/31/2022 3:50 PM EST Radiology Service Progress Note PATIENT NAME: Jennifer Gonzalez DATE OF SERVICE: July 31, 2022 [...] 31, 2022 3:47 PM documented in this encounterPremier Health [facility]01-03-2023 History of Present illness Narrative* Keily Mckinney APRN.DANILO - 07/31/2022 3:30 PM EST This note was created using NoteWriter. Subjective Jennifer Gonzalez is a 72 year old female. [...] she attended a family gathering mid June " someone there was obviously sick" The history is provided by the patient. No content writer was used. Cough This is a new [...] PROSTC AGRFT/ALGRFT Right 12/02/2019 Dr. Barney at [facility] ARTHRP KNE CONDYLE&PLATU MEDIAL&LAT COMPARTMENTS 01/31/2009 [...] - Uncontrolled E11.65 Insulin: Yes; Accucheck [facility] Medical: [phone] Walker misc Trio Rolling Walker aspirin, enteric [...] flags Follow up with PCP Keily Mckinney APRN.ROBOTIC MAINTENANCE TECHNICIAN documented in this encounterPremier Health [facility] Hospital10-18-2022 History of Present illness Narrative* Viki Sibley LPN - 05/15/2022 10:24 AM EDT Patient presents for Shingrix vaccines. Denies any problems at this time. Tolerated injection well. Viki Sibley LPN documented in this encounterPremier Health [facility]10-07-2022 Miscellaneous Notes* Telephone Encounter - Viki Sibley LPN - 05/04/2022 9:47 AM EDT Patient scheduled for nurse visit 05/15/22 to receive Shingrix vaccine. Please place order at this time. Viki Sibley LPN documented in this [facility]09-21-2022 Instructions* Patient Instructions* Abby Mcclellan MD - 04/18/2022 2:55 PM EDT Consider arch support socks. documented in this encounterPremier Health [facility]09-21-2022 History of Present illness Narrative* Abby Mcclellan MD - 04/18/2022 2:45 PM EDT This note was created using NoteWriter. Subjective Jennifer Gonzalez is a 71 year old female. Patient presents with: Follow Up SUBJECTIVE: Jennifer Gonzalez is a 71 year old year [...] 325 pedals. [facility] test strips. Does not want COVID vaccine. [facility]. Last scope was 2015. Lost wedding wring when had COVID probably in August. Colonoscopy done by Dr. Sanchez at [facility]. 2018. Told 10 years for next [...] - Uncontrolled E11.65 Insulin: Yes; Accucheck [facility] Medical: [phone] [facility] Rolling Walker aspirin, enteric coated (ASPIRIN, ENTERIC [...] up for mammogram, yearly mammogram recommended - [facility] SCREENING 5. Essential hypertension - ICD9: 401.9, ICD10: I10 - good control - Continue current medication(s) - Recommended regular aerobic exercise. - Discussed need and benefit for weight loss. - Goal of BP <130/80 - COMP METABOLIC PANEL - LIPID PANEL BASIC - CBC Abby Mcclellan MD documented in this encounterPremier Health [facility]05-27-2022 History of Present illness Narrative* Munira Edouard MA - 12/22/2021 1:38 PM EDT POPULATION HEALTH NAVIGATION OUTREACH Action/FYI LM for pt to call to schedule mammogram after 04/20/2022 and colonoscopy, logan,ad, hgba1c order is insystem, added notes to [...] 22, 2021 1:38 PM documented in this encounterPremier Health [facility]05-10-2022 Miscellaneous Notes* Telephone Encounter - Teresa [...] mg/dL [phone] documented in this encounterPremier Health [facility] Hospital10-21-2020 History of Present illness Narrative* Suzanne Zaidi (Rt)Carlos - 05/18/2020 4:30 PM EDT Radiology Service Progress Note PATIENT NAME: Jennifer Gonzalez DATE OF SERVICE: May 18, 2020 [...] 18, 2020 4:47 PM documented in this encounterPremier Health [facility] Hospital06-09-2016 History of Past illness Narrative* Problem [...] Value 09/15/2016 5.8 2016 Test sent to [facility]. ) Last Ophthalmology exam was within the past 12 months Assessment: Stable, good controle PLAN: No change. Cut back on testing to 1 x per Pain in joint, lower leg 04/21/2007 011 documented as of this encounter (statuses as of 12/08/2021) [facility] History of Past illness Narrative* Problem [...] Value 09/15/2016 5.8 2016 Test sent to [facility]. ) Last Ophthalmology exam was within the past 12 months Assessment: Stable, good controle PLAN: No change. Cut back on testing to 1 x per Pain in joint, lower leg 04/21/2007 011 documented as of this encounter (statuses as of 12/22/2021) [facility] History of Past illness Narrative* Problem [...] Value 09/15/2016 5.8 2016 Test sent to [facility]. ) Last Ophthalmology exam was within the past 12 months Assessment: Stable, good controle PLAN: No change. Cut back on testing to 1 x per Pain in joint, lower leg 04/21/2007 011 documented as of this encounter (statuses as of 05/04/2022) [facility] History of Past illness Narrative* Problem Noted Date Resolved Date Colon cancer screening 01/05/2016 6 Nonspecific abnormal results of liver function eliana andrew 10/20/2007 03/04/2012 Diabetes mellitus type 2, controlled, [...] Value 09/15/2016 5.8 2016 Test sent to [facility]. ) Last Ophthalmology exam was within the past 12 months Assessment: Stable, good controle PLAN: No change. Cut back on testing to 1 x per Pain in joint, lower leg 04/21/2007 011 documented as of this encounter (statuses as of 05/15/2022) [facility] History of Past illness Narrative* Problem [...] Value 09/15/2016 5.8 2016 Test sent to [facility]. ) Last Ophthalmology exam was within the past 12 months Assessment: Stable, good controle PLAN: No change. Cut back on testing to 1 x per Pain in joint, lower leg 04/21/2007 011 documented as of this encounter (statuses as of 05/25/2022) [facility] of Past illness Narrative* Problem [...] Value 09/15/2016 5.8 2016 Test sent to [facility]. ) Last Ophthalmology exam was within the past 12 months Assessment: Stable, good controle PLAN: No change. Cut back on testing to 1 x per Pain in joint, lower leg 04/21/2007 011 documented as of this encounter (statuses as of 08/02/2022) [facility] History of Past illness Narrative* Problem [...] Value 09/15/2016 5.8 2016 Test sent to [facility]. ) Last Ophthalmology exam was within the past 12 months Assessment: Stable, good controle PLAN: No change. Cut back on testing to 1 x per Pain in joint, lower leg 04/21/2007 011 documented as of this encounter (statuses as of 10/19/2022) [facility] History of Past illness Narrative* Problem [...] Value 09/15/2016 5.8 2016 Test sent to [facility]. ) Last Ophthalmology exam was within the past 12 months Assessment: Stable, good controle PLAN: No change. Cut back on testing to 1 x per Pain in joint, lower leg 04/21/2007 011 documented as of this encounter (statuses as of 11/09/2022) [facility] of Past illness Narrative* Problem [...] Value 09/15/2016 5.8 2016 Test sent to [facility]. ) Last Ophthalmology exam was within the past 12 months Assessment: Stable, good controle PLAN: No change. Cut back on testing to 1 x per Pain in joint, lower leg 04/21/2007 011 documented as of this encounter (statuses as of 01/16/2023) [facility] of Past illness Narrative* Problem [...] Value 09/15/2016 5.8 2016 Test sent to [facility]. ) Last Ophthalmology exam was within the past 12 months Assessment: Stable, good controle PLAN: No change. Cut back on testing to 1 x per Pain in joint, lower leg 04/21/2007 011 documented as of this encounter (statuses as of 01/21/2023) [facility] of Past illness Narrative* Problem [...] Value 09/15/2016 5.8 2016 Test sent to [facility]. ) Last Ophthalmology exam was within the past 12 months Assessment: Stable, good controle PLAN: No change. Cut back on testing to 1 x per Pain in joint, lower leg 04/21/2007 documented as of this encounter (statuses as of 04/19/2023) [facility] of Past illness Narrative* Problem [...] Value 09/15/2016 5.8 2016 Test sent to [facility]. ) Last Ophthalmology exam was within the past 12 months Assessment: Stable, good controle PLAN: No change. Cut back on testing to 1 x per Pain in joint, lower leg 04/21/2007 documented as of this encounter (statuses as of 05/02/2023) [facility] of Past illness Narrative* Problem [...] Value 09/15/2016 5.8 2016 Test sent to [facility]. ) Last Ophthalmology exam was within the past 12 months Assessment: Stable, good controle PLAN: No change. Cut back on testing to 1 x per Pain in joint, lower leg 04/21/2007 documented as of this encounter (statuses as of 05/11/2023) [facility] of Past illness Narrative* Problem [...] Value 09/15/2016 5.8 2016 Test sent to [facility]. ) Last Ophthalmology exam was within the past 12 months Assessment: Stable, good controle PLAN: No change. Cut back on testing to 1 x per Pain in joint, lower leg 04/21/2007 documented as of this encounter (statuses as of 05/16/2023) [facility] of Past illness Narrative* Problem [...] Value 09/15/2016 5.8 2016 Test sent to [facility]. ) Last Ophthalmology exam was within the past 12 months Assessment: Stable, good controle PLAN: No change. Cut back on testing to 1 x per Pain in joint, lower leg 04/21/2007 documented as of this encounter (statuses as of 06/02/2023) [facility] of Past illness Narrative* Problem [...] Value 09/15/2016 5.8 2016 Test sent to [facility]. ) Last Ophthalmology exam was within the past 12 months Assessment: Stable, good controle PLAN: No change. Cut back on testing to 1 x per Pain in joint, lower leg 04/21/2007 documented as of this encounter (statuses as of 07/12/2023) [facility] of Past illness Narrative* Problem [...] Value 09/15/2016 5.8 2016 Test sent to [facility]. ) Last Ophthalmology exam was within the past 12 months Assessment: Stable, good controle PLAN: No change. Cut back on testing to 1 x per Pain in joint, lower leg 04/21/2007 documented as of this encounter (statuses as of 10/07/2023) [facility] of Past illness Narrative* Problem [...] Value 09/15/2016 5.8 2016 Test sent to [facility]. ) Last Ophthalmology exam was within the past 12 months Assessment: Stable, good controle PLAN: No change. Cut back on testing to 1 x per Pain in joint, lower leg 04/21/2007 documented as of this encounter (statuses as of 10/08/2023) [facility] of Past illness Narrative* Problem [...] Value 09/15/2016 5.8 2016 Test sent to [facility]. ) Last Ophthalmology exam was within the past 12 months Assessment: Stable, good controle PLAN: No change. Cut back on testing to 1 x per Pain in joint, lower leg 04/21/2007 Tachycardia, unspecified 04/03/2005 documented as of this encounter (statuses as of 11/13/2023) [facility] of Past illness Narrative* Problem [...] Value 09/15/2016 5.8 2016 Test sent to [facility]. ) Last Ophthalmology exam was within the past 12 months Assessment: Stable, good controle PLAN: No change. Cut back on testing to 1 x per Pain in joint, lower leg 04/21/2007 Tachycardia, unspecified 04/03/2005 documented as of this encounter (statuses as of 11/15/2023) [facility] Evaluation note* Diagnosis Onset Date Resolution Status Essential (primary) hypertension chronic Nonrheumatic aortic (valve) stenosis chronic Atrial fibrillation with rap id ventricular response August, resolved [facility] Work Phone: Discharge summary Author Alen Borjas [facility] Note Date/Time March 04, 2025 10: 24am [facility] Medical Records Department [address] [place] [address] Transfer to Extended Care MR#: [id number] Acct: [id number] Name: JENNIFER GONZALEZ Rep #:[id number] : [id number] From: Alen Borjas DO PCP: Dr. Abby Mcclellan MD Status:AD M IN Certification of patient admission REQUIRED AT TIME OF ADMISSION. I CERTIFY THAT POST-HOSPITAL ECF SERVICES ARE REQUIRED TO BE GIVEN ON AN IN-PATIENT BASIS BECAUSE OF THE ABOVE NAMED PATIENT'S NEED FOR JAIL CARE ON A CONTINUING BASIS FOR THE CONDITION(S) FOR WHICH HE/SHE WAS RECEIVING IN-PATIENT HOSPITAL SERVICES PRIOR TO HIS/HER TRANSFER TO THE [facility]. 03/03/25 1531<Electronically signed by Alen Borjas DO> Diet Diet Order/Speech Therapy: INPATIENT Hospital Diet / Speech Therapy Order(s) 03/01/25 10:07 Diet: Cardiac - Heart Healthy Food consistency:: Regular Liquid Consistency:: Regular/Thin Dietary Modifications:: Consistent Carbohydrate Routine Orders/Code Status Code Status: Full Code DC O2, CPAP, BIPAP needs Home O2 Discharge instructions: No Therapies Weight Bearing: Full weight bearing Physical Therapy: Eval and Treat Occupational Therapy: Eval and Treat Problem/Diagnosis (1) Septic shock: Status: Acute Code(s): A41.9 - Sepsis, unspecified organism; R65.21 - Severe sepsis with septic shock Plan 1. Septic shock secondary to strep agalactiae-again patient was transitioned over to Keflex, her ALEKSANDAR was unremarkable for vegetation. #2 metabolic encephalopathy-cleared at this time, secondary to septic shock #3 class III obesity-complicates care, management, recovery, and prognosis #4 type 2 diabetes-blood sugars will continue to be monitored, sliding scale insulin will be administered as needed #5 generalized debility-patient will be seen by PT and OT #6 paroxysmal atrial fibrillation-patient is currently off Eliquis, she will resume this medication after she is discharged from the hospital. Total clinical time spent by myself addressing the patient's medical issues, reviewing all of her data, and collaborating with the patient's care team: 35 minutes Allergies/Procedures Done in Hospital Allergies atorvastatin (From Lipitor) Allergy (Intermediate, Verified 02/08/25 10:33) Rash Procedures: Transesophageal Echo and Transthoracic Echo Type of Care/Length of Stay Estimated LOS: Convalescent Care Less Than 30 days Type of Care Needed: Skilled Rehab Potential: Good Prognosis: Good Additional Orders/Day of Discharge H&P will serve as current which was dated: 02/26/25 Day of Discharge: 03/03/25 Dietary and Speech Recommendations Dietitian Recommendations/Changes: Adjust to cardiac, consistent carbohydrate diet. Will monitor weight trends. Discharge Plan Admission Admit Date/Time: 02/26/25 00:39 Primary Reason for Your Visit: Septic shock Attending Provider: Alen Borjas Primary Care Provider: Abby Mcclellan Consulting Providers: Doug Argueta; Jesus Alberto Lopez; Candis Willson Discharge Orders/Prescriptions Prescriptions: New amiodarone 200 mg Tablet 200 mg PO BID Qty: 0 0RF Rx Instructions: Continue 200 mg twice a day for 7 days, then reduce the dose of Cordarone to 200 mg daily thereafter cephalexin 500 mg Capsule 500 mg PO Q6 Qty: 0 0RF Rx Instructions: Continue cephalexin 500 mg every 6 hours x 1 week and then discontinue insulin lispro [Humalog KwikPen Insulin] 100 unit/mL Insulin Pen See Protocol subcut ACHS Qty: 1 0RF Protocol: 3. Sliding Scale Insulin Med Dosing Condition: 150-189 mg/dl = 1 unit Condition: 190-229 mg/dl = 2 units Condition: 230-269 mg/dl = 3 units Condition: 270-309 mg/dl = 4 units Condition: 310-349 mg/dl = 5 units Condition: 350-399 mg/dl = 6 units Condition: 400-449 mg/dl = 7 units Condition: Greater than 449 call physician Protocol Text: Suggested for: - Patients on Total Daily Insulin Dose of 37-55 units - Obese, infected, or steroid patients MEDIUM DOSING ALGORITHIM pantoprazole 40 mg Tablet,Delayed Release (Dr/Ec) 40 mg PO QHS Qty: 0 0RF nystatin 100,000 unit/gram Powder 1 applic topical BID Qty: 0 0RF Protocol: *Topical Application Instructions APPLICATION INSTRUCTIONS: apply to groin furosemide [Lasix] 40 mg tablet 40 mg PO DAILY Qty: 1 0RF Continued Eliquis 5 mg tablet 5 mg PO BID Qty: 180 3RF metoprolol succinate 25 mg tablet extended release 24 hr 25 mg PO DAILY glimepiride 4 mg tablet 4 mg PO BID (DME) Accu-Chek Guide test strips Strip MISCELLANEOUS (DME) blood-glucose meter [Accu-Chek Guide Me Glucose Mtr] Misc MISCELLANEOUS Patient Comments: [NO ORIGINAL SIG] calcium carbonate-vitamin D3 [Calcium 600 + D(3)] 600 mg-5 mcg (200 unit) tablet 1 tab PO BID metformin 500 mg tablet 500 mg PO BID Discontinued glucosamine sulfate [Glucosamine] 500 mg tablet 1,000 mg PO DAILY Rx Instructions: administer with meals Ozempic 0.25 mg or 0.5 mg (2 mg/3 mL) pen injector 0.5 mg SUBCUT QWEEK Patient Comments: [NO ORIGINAL SIG] [place] 3 Fish OiL capsule PO BID Patient Comments: 2 capsules two times a day Referrals / Follow Up: Abby Mcclellan MD [Primary Care Provider] - Jacinda Dexter NP, EFFICIENCY CLERK-C [Non-Staff -Ordering Privileges] - See Referral Note (In 3 weeks-call office for appointment) Disposition Disposition (needs filled in before D/C Order can be placed): Long Term Facility 03/03/25 1531 <Electronically signed by Alen Borjas DO> Cosigner Signature (if applicable): CC: Dr. Doug Argueta DO; Dr. Abby Mcclellan MD; Dr. Candis Willson MD; Dr. Jesus Alberto Lopez MD ~ ADDENDUM by Dr. Alen Borjas DO on 03/04/25 at 1024 Addendum Discharge date is 03/04/25 03/04/25 1024 <Electronically signed by Alen Borjas DO> cc: Dr. Doug Argueta DO; Dr. Abby Mcclellan MD; Dr. Candis Willson MD; Dr. Jesus Alberto Lopez MD ~* Signed [facility] Work Phone: Evaluation note* Diagnosis Onset Date Resolution Status Diabetes acute Obesity acute Essential (primary) hypertension chronic [facility] Work Phone: Evaluation note* Diagnosis Need for vaccination- Primary Need for prophylactic vaccination and inoculation against unspecified single disease [facility] Diagnosis Need for vaccination- Primary Need for prophylactic vaccination and inoculation against unspecified single disease [facility] Diagnosis Controlled type 2 diabetes mellitus without complication, without long-term current use of insulin (HCC)- Primary Plantar fasciitis of right foot Plantar fascial fibromatosis Nonrheumatic aortic valve stenosis Aortic valve disorders Encounter for screening mammogram for breast cancer Essential hypertension Unspecified essential hypertension [facility] Diagnosis Acute cough- Primary [facility] Diagnosis Controlled type 2 diabetes mellitus without complication, without long-term current use of insulin (HCC)- Primary [facility] Diagnosis Type 2 diabetes mellitus with hyperglycemia, without long-term current use of insulin (HCC)- Primary Essential hypertension Unspecified essential hypertension Hyperlipidemia associated with type 2 diabetes mellitus (HCC) Moderate aortic stenosis by prior echocardiogram Aortic valve disorders Acute cough [facility] Diagnosis Controlled type 2 diabetes mellitus without complication, without long-term current use of insulin (HCC) [facility] Diagnosis Encounter for screening mammogram for breast cancer [facility] Diagnosis Type 2 diabetes mellitus with other specified complication, without long-term current use of insulin (HCC)- Primary Hypertension goal BP (blood pressure) < 140/90 Unspecified essential hypertension Hyperlipidemia associated with type 2 diabetes mellitus (HCC) (HCC) [facility] Diagnosis Medicare annual wellness visit, subsequent- [...] monitoring documented in this encounter [facility] note* Diagnosis Severe aortic stenosis- Primary Aortic valve disorders Memory loss Dizziness Dizziness and giddiness Daytime hypersomnolence Polypharmacy Issue of repeat prescriptions documented in this encounter [facility] note* Diagnosis Nonrheumatic aortic valve stenosis- Primary PAF (paroxysmal atrial fibrillation) ([facility]) Atrial fibrillation documented in this encounter [facility] note* Diagnosis Nonrheumatic aortic valve stenosis documented in this encounter [facility] note* Diagnosis Severe aortic stenosis- Primary Aortic valve disorders documented in this encounter [facility] note* Diagnosis Nonrheumatic aortic valve stenosis- Primary Severe aortic stenosis- Primary Aortic valve disorders Nonrheumatic aortic valve stenosis documented in this encounter [facility] note* Diagnosis Nonrheumatic aortic valve stenosis- Primary Nonrheumatic aortic valve stenosis Severe aortic stenosis Aortic valve disorders Complete heart block (CMS/HCC) (HCC) Atrioventricular block, complete Complete heart block (CMS/HCC) (HCC) Atrioventricular block, complete Nonrheumatic aortic valve stenosis Complete heart block (CMS/HCC) (HCC) Atrioventricular block, complete Encounter for adjustment or management of cardiac device documented in this encounter [facility] note* Diagnosis S/P TAVR (transcatheter aortic valve replacement)- Primary Essential hypertension Unspecified essential hypertension Aortic valve stenosis, etiology of cardiac valve disease unspecified Complete heart block (HCC) Atrioventricular block, complete documented in this encounter [facility] note* Diagnosis Controlled type 2 diabetes mellitus without complication, without long-term current use of insulin ([facility])- Primary BMI 45.0-49.9, adult ([facility]) Body Mass Index 45.0-49.9, adult Hypertension goal BP (blood pressure) < 140/90 Unspecified essential hypertension Hand pain, left Pain in limb Need for shingles vaccine Need for prophylactic vaccination and inoculation against other viral diseases Acute cough documented in this encounter [facility] note* Diagnosis Severe aortic stenosis- Primary Aortic valve disorders PAF (paroxysmal atrial fibrillation) (HCC) Atrial fibrillation Essential hypertension Unspecified essential hypertension Complete heart block (HCC) Atrioventricular block, complete Encounter for adjustment or management of cardiac device documented in this encounter [facility] note* Diagnosis Aortic valve stenosis, etiology of cardiac valve disease unspecified Encounter for adjustment or management of cardiac device documented in this encounter [facility] note* Diagnosis Severe aortic stenosis- Primary Aortic valve disorders Memory loss Dizziness Dizziness and giddiness Daytime hypersomnolence Polypharmacy Issue of repeat prescriptions Severe aortic stenosis- Primary Aortic valve disorders PAF (paroxysmal atrial fibrillation) ([facility]) Atrial fibrillation Essential hypertension Unspecified essential hypertension Complete heart block (HCC) Atrioventricular block, complete PAF (paroxysmal atrial fibrillation) (HCC) Atrial fibrillation Encounter for adjustment or management of cardiac device documented in this encounter [facility] note* Diagnosis Controlled type 2 diabetes mellitus without complication, without long-term current use of insulin ([facility])- Primary BMI 45.0-49.9, adult ([facility]) Body Mass Index 45.0-49.9, adult Hypertension goal BP (blood pressure) < 140/90 Unspecified essential hypertension Hand pain, left Pain in limb Need for shingles vaccine Need for prophylactic vaccination and inoculation against other viral diseases Type 2 diabetes mellitus with other specified complication, without long-term current use of insulin ([facility])- Primary Hypertension goal BP (blood pressure) < 140/90 Unspecified essential hypertension Hyperlipidemia associated with type 2 diabetes mellitus (HCC) ([facility]) documented in this encounter [facility] note* Diagnosis Controlled type 2 diabetes mellitus without complication, without long-term current use of insulin ([facility])- Primary BMI 45.0-49.9, adult ([facility]) Body Mass Index 45.0-49.9, adult Hypertension goal BP (blood pressure) < 140/90 Unspecified essential hypertension Hand pain, left Pain in limb Need for shingles vaccine Need for prophylactic vaccination and inoculation against other viral diseases Type 2 diabetes mellitus with hyperglycemia, without long-term current use of insulin ([facility])- Primary Hyperlipidemia associated with type 2 diabetes mellitus (HCC) ([facility]) Hypertension goal BP (blood pressure) < 140/90 Unspecified essential hypertension PAF (paroxysmal atrial fibrillation) ([facility]) Atrial fibrillation Class 3 severe obesity due to excess calories with body mass index (BMI) of 45.0 to 49.9 in adult, unspecified whether serious comorbidity present ([facility]) Encounter for immunization Need for other specified prophylactic vaccination against single bacterial disease Nonrheumatic aortic valve stenosis Aortic valve disorders Arm edema Edema Cardiac pacemaker Cardiac pacemaker in situ documented in this encounter [facility] note* Diagnosis Controlled type 2 diabetes mellitus without complication, without long-term current use of insulin ([facility])- Primary BMI 45.0-49.9, adult ([facility]) Body Mass Index 45.0-49.9, adult Hypertension [...] diabetes mellitus (HCC) documented in this encounter [facility] noteNo assessment information [facility]Pal[facility] Work Phone: Evaluation note* Diagnosis Controlled type 2 diabetes mellitus without complication, without long-term current use of insulin (HCC)- Primary BMI 45.0-49.9, adult ([facility]) Body Mass Index 45.0-49.9, adult Hypertension [...] Sciatic leg pain documented in this encounter [facility] note* Diagnosis Controlled type 2 diabetes [...] hypertension documented in this encounter [facility] note* Diagnosis Controlled type 2 diabetes [...] of insulin (HCC) [facility] Diagnosis Onset Date Resolution Status Admit Date Intermittent complete heart block acute February 08, 2025 10:09am Paroxysmal atrial fibrillation acute February 08, 2025 10:09am Essential (primary) hypertension chronic February 08, 2025 10:09am Nonrheumatic aortic (valve) stenosis chronic February 08, 2025 10:09am [facility] [employer] Work Phone: Evaluation note* Diagnosis Controlled type [...] of insulin (HCC) documented in this encounter [facility] Discharge instructionsAdditional Instructions CTA chest normal no PE continue apixaban for presumed left upper extremity DVT [facility] Work Phone: Reason for referral (narrative)* Diagnostic Procedure Only (Routine) - Pending Review Specialty Diagnoses / Procedures Referred By Zandra oliva Referred To Contact [facility] Diagnoses Encounter for screening mammogram for breast cancer Procedures DAVID SCREENING SCREENING MAMMOGRAPHY BI 2-VIEW BREAST INC CAD Abby Mcclellan MD [address] [place] [address] Br [facility] [place] [address] Referral ID Status Reason Start Date Expiration Date Visits Requested Visits Authorized [id number] Pending Review Auto-Generat ed Referral 04/18/2022 05/18/2023 1 1 [facility] for referral (narrative)* Diagnostic Procedure Only (Routine) - Closed Specialty Diagnoses / Procedures Referred By Contsheila t Referred To Contact [facility] Diagnoses Encounter for screening mammogram for breast cancer Procedures DAVID SCREENING SCREENING MAMMOGRAPHY BI 2-VIEW BREAST INC Abby So MD [address] [place] [address] [facility] Imaging [address] [address] Referral ID Status Reason Start Date Expiration Date V isits Requested Visits Authorized [id number] Closed Auto-Generate d Referral 04/18/2022 05/18/2023 1 1 [facility] for referral (narrative)No reason for referral information availableJohnson [facility] Work Phone: [employer] for visit Narrative* Diagnostic Procedure Only (Routine) - Closed Specialty Diagnoses / Procedures Referred By Zandra oliva Referred To Contact [facility] Diagnoses Encounter for screening mammogram for breast cancer Procedures ADVID SCREENING SCREENING MAMMOGRAPHY BI 2-VIEW BREAST INC Abby So MD [address] [place] [address] [facility] Imaging [id number] [place] [address] Referral ID Status Reason Start Date Expiration Date V isits Requested Visits Authorized [id number] Closed Auto-Generate d Referral 04/18/2022 05/18/2023 1 1 [facility] Chief Complaint and Reason for Visit Chief Complaint f/u visit Michael NONRHEUMATIC AORTIC STENOSIS HAYDEE Reason for Visit Essential (primary) hypertension Nonrheumatic aortic (valve) stenosis Atrial fibrillation with rapid ventricular response Chief Complaint EFFICIENCY CLERK, DIABETES, NPP MA ILED SCREENING Reason [...] 2 025 10:08am 1 Y FU/BARON @ February 08, 2025 10:0 9am Chief Complaint Admit Date Pacer Check Remote December 02, 2024 2:21am Pacer Check Remote December 07, 2024 2:00a m Pacer Check Remote February 08, 2025 9:00 am ANNUAL IN CLINIC/SD @ 10:30 February 08, 2 025 10:08am 1 Y FU/BARON @ February 08, 2025 10:0 9am altered mental status February 26, 2025 1 2:16am Reason for Visit Admit Date Intermittent complete heart block January 262024 10:08am Paroxysmal atrial fibrillation January 10:08am Presence of cardiac pacemaker February 08, 2025 10:08am Intermittent complete heart block January 262024 10:09am Paroxysmal atrial fibrillation January 10:09am Essential (primary) hypertension February 082024 10:09am Nonrheumatic aortic (valve) stenosis Jan 10:09am Lactic acidosis February 26, 2025 12: 16am Adverse drug reaction February 26, 2025 1 2:16am Chronic anticoagulation February 26, 2025 12:16am Encephalopathy February 26, 2025 12: 16am Fever February 26, 2025 12: 16am Hyperglycemia due to type 2 diabetes tommy litus February 26, 2025 12:16am Metabolic encephalopathy February 26 12:16am Morbid obesity with BMI of 45.0-49.9, ad ult February 26, 2025 12:16am Paroxysmal atrial fibrillation February 12:16am Sepsis due to undetermined organism Augu 2024 12:16am Tachycardia February 26, 2025 12: 16am Thrombocytopenia February 26, 2025 12: 16am Presence of cardiac pacemaker February 12:16am Chief Complaint Admit Date Pacer Check Remote December 02, 2024 2:21am Pacer Check Remote December 07, 2024 2:00a m Pacer Check Remote February 08, 2025 9:00 am ANNUAL IN CLINIC/SD @ 10:30 February 08, 2 025 10:08am 1 Y FU/BARON @ 10 February 08, 2025 10:0 9am SEPSIS OF UNKNOWN ORIGIN, METABOLIC Augu st 2024 12:39am SEPSIS OF UNKNOWN ORIGIN, METABOLIC Aug[facility] 2024 7:09am GRAM+ BACTEREMIA February 26, 2025 7:3 5am SEPSIS OF UNKNOWN ORIGIN, METABOLIC Aug[facility] 2024 10:38am SEPSIS OF UNKNOWN ORIGIN, METABOLIC Aug[facility] 2024 9:15am SEPSIS OF UNKNOWN ORIGIN, METABOLIC Aug[facility] 2024 8:25am SEPSIS OF UNKNOWN ORIGIN, METABOLIC Aug[facility] 2024 7:27pm SEPSIS OF UNKNOWN ORIGIN, METABOLIC Augu [facility] 2024 4:21pm SEPSIS OF UNKNOWN ORIGIN, METABOLIC Augu st 2024 3:11pm Reason for Visit Admit Date Intermittent complete heart block January 262024 10:08am Paroxysmal atrial fibrillation January 10:08am Presence of cardiac pacemaker February 08, 2025 10:08am Intermittent complete heart block January 262024 10:09am Paroxysmal atrial fibrillation January 10:09am Essential (primary) hypertension February 082024 10:09am Nonrheumatic aortic (valve) stenosis Jan 10:09am Lactic acidosis February 26, 2025 12: 39am Adverse drug reaction February 26, 2025 1 2:39am Chronic anticoagulation February 26, 2025 12:39am Encephalopathy February 26, 2025 12: 39am Fever February 26, 2025 12: 39am Hyperglycemia due to type 2 diabetes tommy litus February 26, 2025 12:39am Metabolic encephalopathy February 26 12:39am Morbid obesity with BMI of 45.0-49.9, ad ult February 26, 2025 12:39am Paroxysmal atrial fibrillation February 12:39am Sepsis due to undetermined organism Augu 2024 12:39am Septic shock February 26, 2025 12: 39am Streptococcal bacteremia February 26 12:39am Tachycardia February 26, 2025 12: 39am Thrombocytopenia February 26, 2025 12: 39am Presence of cardiac pacemaker February 12:39am Chief Complaint Admit Date Pacer Check Remote December 02, 2024 2:21am Pacer Check Remote December 07, 2024 2:00a m Pacer Check Remote February 08, 2025 9:00 am ANNUAL IN CLINIC/SD @ 10:30 February 08, 2 025 10:08am 1 Y FU/BARON @ 10 February 08, 2025 10:0 9am SEPSIS OF UNKNOWN ORIGIN, METABOLIC Aug[facility] 2024 12:39am SEPSIS OF UNKNOWN ORIGIN, METABOLIC Augu [facility] 2024 7:09am GRAM+ BACTEREMIA February 26, 2025 7:3 5am SEPSIS OF UNKNOWN ORIGIN, METABOLIC Aug[facility] 2024 10:38am SEPSIS OF UNKNOWN ORIGIN, METABOLIC Augu [facility] 2024 9:15am SEPSIS OF UNKNOWN ORIGIN, METABOLIC Aug[facility] 2024 8:25am SEPSIS OF UNKNOWN ORIGIN, METABOLIC Augu [facility] 2024 7:27pm SEPSIS OF UNKNOWN ORIGIN, METABOLIC Augu st 2024 4:21pm SEPSIS OF UNKNOWN ORIGIN, METABOLIC Augu st 2024 3:11pm hypoxia March 05, 2025 10: 08am Chief Complaint Admit Date Pacer Check Remote December 02, 2024 2:21am Pacer Check Remote December 07, 2024 2:00a m Pacer Check Remote February 02, 2025 2:00a m Pacer Check Remote February 08, 2025 9:00 am ANNUAL IN CLINIC/SD @ 10:30 February 08, 2 025 10:08am 1 Y FU/BARON @ 10 February 08, 2025 10:0 9am SEPSIS OF UNKNOWN ORIGIN, METABOLIC Augu st 2024 12:39am SEPSIS OF UNKNOWN ORIGIN, METABOLIC Augu st 2024 7:09am GRAM+ BACTEREMIA February 26, 2025 7:3 5am SEPSIS OF UNKNOWN ORIGIN, METABOLIC Augu st 2024 10:38am SEPSIS OF UNKNOWN ORIGIN, METABOLIC Augu st , 2024 9:15am SEPSIS OF UNKNOWN ORIGIN, METABOLIC Augu [facility] 2024 8:25am SEPSIS OF UNKNOWN ORIGIN, METABOLIC Augu [facility] 2024 7:27pm SEPSIS OF UNKNOWN ORIGIN, METABOLIC Augu [facility] 2024 4:21pm SEPSIS OF UNKNOWN ORIGIN, METABOLIC Augu [facility] 2024 3:11pm hypoxia March 05, 2025 10: 08am Family History No Family History Records Found Relationship Condition Age at Onset Recorded Date/T glory father Chronic obstructive pulmonary disease Unk nown Coronary artery disease Unknown mother Malignant neoplasm Unknown Malignant neoplasm of breast Unknown Advance Directives No Advanced Directives Records Found Advance Directive Response Recorded Date/ Time Advance Directives No August 11:43am Living Will Yes December 02, 2019 1: 55pm Power of Electric Organ Assembler And Checker Yes December 02, 2019 1:55pm Documents on File Type Date Recorded 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 Yes December 02, 2019 1:55pm Advance Directives Yes January 19 8:53am Advance Directive Response Recorded Date/ Time Living Will Yes December 02, 2019 1: 55pm Do you have a Healthcare Power of Electric Organ Assembler And Checker? Yes December 02, 2019 1:55pm Do you have a Healthcare Power of Electric Organ Assembler And Checker? No February 25, 2025 8:52pm Advance Directives Yes January 19 8:53am Advance Directive Response Recorded Date/ Time Living Will Yes December 02, 2019 1: 55pm Do you have a Healthcare Power of Electric Organ Assembler And Checker? Yes December 02, 2019 1:55pm Do you have a Healthcare Power of Electric Organ Assembler And Checker? No February 25, 2025 8:52pm Do you have a Healthcare Power of Electric Organ Assembler And Checker? Yes March 05, 2025 10:10am Name of Medical Power of Electric Organ Assembler And Checker Anibal HIGGINS March 05, 2025 10:10am Advance Directives Yes January 19 8:53am Reason for Referral Specialty Diagnoses / Procedures Referred By Danielac t Referred To Contact Radiology Diagnoses Nonrheumatic aortic valve stenosis Procedures CTA Angiogram TAVR Sunita Davis VICE PRESIDENT PLANNING - ROBOTIC MAINTENANCE TECHNICIAN [address] [place] [address] Referral ID Status Reason Start Date Expiration Date Visits Re quested Visits Authorized [id number] Closed 03/10/2024 05/09/2024 1 1 Specialty Diagnoses / Procedures Referred By Zandra t Referred To Contact Cardiology Diagnoses S/P TAVR (transcatheter aortic valve replacement) Aortic valve stenosis, etiology of cardiac valve disease unspecified Procedures Transthoracic echocardiogram (TTE) complete with contrast, bubble, strain, and 3D PRN RI ECHO TTHRC R-T 2D W/WOM-MODE COMPL SPEC&COLR D RI TTE W OR WO FOL WCON,DOPPLER Lindsey Tolentino, VICE PRESIDENT PLANNING - ROBOTIC MAINTENANCE TECHNICIAN [address] [address] Referral ID Status Reason Start Date Expiration Date V isits Requested Visits Authorized [id number] Pending Review 04/17/2024 04/17/2025 1 1 Specialty Diagnoses / Procedures Referred By Contac t Referred To Contact Cardiology Diagnoses Essential hypertension S/P TAVR (transcatheter aortic valve replacement) Aortic valve stenosis, etiology of cardiac valve disease unspecified Procedures RI OFFICE/OUTPATIENT NEW HIGH MDM 60 MINUTES Lindsey Tolentino, VICE PRESIDENT PLANNING - ROBOTIC MAINTENANCE TECHNICIAN [address] [place] [address] [facility] [address] [place] [address] Referral ID Status Reason Start Date Expiration Date Visits Requested Visits Authorized [id number] Pending Review Specialty Services Required 04/17/2024 04/17/2025 1 1 Specialty Diagnoses / Procedures Referred By Contac t Referred To Contact Cardiology Diagnoses Aortic valve stenosis, etiology of cardiac valve disease unspecified Procedures Transthoracic echocardiogram (TTE) complete with contrast, bubble, strain, and 3D PRN RI ECHO TTHRC R-T 2D W/WOM-MODE COMPL SPEC&COLR D RI TTE W OR WO FOL WCON,DOPPLER Lindsey Tolentino, VICE PRESIDENT PLANNING - ROBOTIC MAINTENANCE TECHNICIAN [address] [place] [address] Referral ID Status Reason Start Date Expiration Date Visits Re quested Visits Authorized [id number] Closed 05/07/2024 07/05/2024 1 1 Summary Purpose [...] or prosecute any alcohol or drug abuse patient.[facility] the event this information is protected by the Federal Confidentiality of Alcohol and Drug Abuse Patient Records regulations: The Federal rules restrict any use of the information to criminally investigate or prosecute any alcohol or drug abuse patient.[facility]In the event this information is protected by the Federal Confidentiality of Alcohol and Drug Abuse Patient Records regulations: The Federal rules restrict any use of the information to criminally investigate or prosecute any alcohol or drug abuse patient.[facility]In the event this information is protected by the Federal Confidentiality of Alcohol and Drug Abuse Patient Records regulations: The Federal rules restrict any use of the information to criminally investigate or prosecute any alcohol or drug abuse patient.[facility]In the event this information is protected by the Federal Confidentiality of Alcohol and Drug Abuse Patient Records regulations: The Federal rules restrict any use of the information to criminally investigate or prosecute any alcohol or drug abuse patient.[facility]In the event this information is protected by the Federal Confidentiality of Alcohol and Drug Abuse Patient Records regulations: The Federal rules restrict any use of the information to criminally investigate or prosecute any alcohol or drug abuse patient.[facility]In the event this information is protected by the Federal Confidentiality of Alcohol and Drug Abuse Patient Records regulations: The Federal rules restrict any use of the information to criminally investigate or prosecute any alcohol or drug abuse patient.[facility]In the event this information is protected by the Federal Confidentiality of Alcohol and Drug Abuse Patient Records regulations: The Federal rules restrict any use of the information to criminally investigate or prosecute any alcohol or drug abuse patient.[facility]In the event this information is protected by the Federal Confidentiality of Alcohol and Drug Abuse Patient Records regulations: The Federal rules restrict any use of the information to criminally investigate or prosecute any alcohol or drug abuse patient.[facility]In the event this information is protected by the Federal Confidentiality of Alcohol and Drug Abuse Patient Records regulations: The Federal rules restrict any use of the information to criminally investigate or prosecute any alcohol or drug abuse patient.[facility]In the event this information is protected by the Federal Confidentiality of Alcohol and Drug Abuse Patient Records regulations: The Federal rules restrict any use of the information to criminally investigate or prosecute any alcohol or drug abuse patient.[facility]In the event this information is protected by the Federal Confidentiality of Alcohol and Drug Abuse Patient Records regulations: The Federal rules restrict any use of the information to criminally investigate or prosecute any alcohol or drug abuse patient.[facility]In the event this information is protected by the Federal Confidentiality of Alcohol and Drug Abuse Patient Records regulations: The Federal rules restrict any use of the information to criminally investigate or prosecute any alcohol or drug abuse patient.[facility]In the event this information is protected by the Federal Confidentiality of Alcohol and Drug Abuse Patient Records regulations: The Federal rules restrict any use of the information to criminally investigate or prosecute any alcohol or drug abuse patient.[facility]In the event this information is protected by the Federal Confidentiality of Alcohol and Drug Abuse Patient Records regulations: The Federal rules restrict any use of the information to criminally investigate or prosecute any alcohol or drug abuse patient.[facility]In the event this information is protected by the Federal Confidentiality of Alcohol and Drug Abuse Patient Records regulations: The Federal rules restrict any use of the information to criminally investigate or prosecute any alcohol or drug abuse patient.[facility]In the event this information is protected by the Federal Confidentiality of Alcohol and Drug Abuse Patient Records regulations: The Federal rules restrict any use of the information to criminally investigate or prosecute any alcohol or drug abuse patient.[facility]In the event this information is protected by the Federal Confidentiality of Alcohol and Drug Abuse Patient Records regulations: The Federal rules restrict any use of the information to criminally investigate or prosecute any alcohol or drug abuse patient.[facility]In the event this information is protected by the Federal Confidentiality of Alcohol and Drug Abuse Patient Records regulations: The Federal rules restrict any use of the information to criminally investigate or prosecute any alcohol or drug abuse patient.[facility]In the event this information is protected by the Federal Confidentiality of Alcohol and Drug Abuse Patient Records regulations: The Federal rules restrict any use of the information to criminally investigate or prosecute any alcohol or drug abuse patient.[facility]In the event this information is protected by the Federal Confidentiality of Alcohol and Drug Abuse Patient Records regulations: The Federal rules restrict any use of the information to criminally investigate or prosecute any alcohol or drug abuse patient.[facility]In the event this information is protected by the Federal Confidentiality of Alcohol and Drug Abuse Patient Records regulations: The Federal rules restrict any use of the information to criminally investigate or prosecute any alcohol or drug abuse patient.[facility]In the event this information is protected by the Federal Confidentiality of Alcohol and Drug Abuse Patient Records regulations: The Federal rules restrict any use of the information to criminally investigate or prosecute any alcohol or drug abuse patient.[facility]In the event this information is protected by the Federal Confidentiality of Alcohol and Drug Abuse Patient Records regulations: The Federal rules restrict any use of the information to criminally investigate or prosecute any alcohol or drug abuse patient.[facility]In the event this information is protected by the Federal Confidentiality of Alcohol and Drug Abuse Patient Records regulations: The Federal rules restrict any use of the information to criminally investigate or prosecute any alcohol or drug abuse patient.[facility]In the event this information is protected by the Federal Confidentiality of Alcohol and Drug Abuse Patient Records regulations: The Federal rules restrict any use of the information to criminally investigate or prosecute any alcohol or drug abuse patient.[facility]In the event this information is protected by the Federal Confidentiality of Alcohol and Drug Abuse Patient Records regulations: The Federal rules restrict any use of the information to criminally investigate or prosecute any alcohol or drug abuse patient.[facility]In the event this information is protected by the Federal Confidentiality of Alcohol and Drug Abuse Patient Records regulations: The Federal rules restrict any use of the information to criminally investigate or prosecute any alcohol or drug abuse patient.[facility]In the event this information is protected by the Federal Confidentiality of Alcohol and Drug Abuse Patient Records regulations: The Federal rules restrict any use of the information to criminally investigate or prosecute any alcohol or drug abuse patient.[facility]In the event this information is protected by the Federal Confidentiality of Alcohol and Drug Abuse Patient Records regulations: The Federal rules restrict any use of the information to criminally investigate or prosecute any alcohol or drug abuse patient.[facility]In the event this information is protected by the Federal Confidentiality of Alcohol and Drug Abuse Patient Records regulations: The Federal rules restrict any use of the information to criminally investigate or prosecute any alcohol or drug abuse patient.[facility]In the event this information is protected by the Federal Confidentiality of Alcohol and Drug Abuse Patient Records regulations: The Federal rules restrict any use of the information to criminally investigate or prosecute any alcohol or drug abuse patient.[facility]In the event this information is protected by the Federal Confidentiality of Alcohol and Drug Abuse Patient Records regulations: The Federal rules restrict any use of the information to criminally investigate or prosecute any alcohol or drug abuse patient.[facility]In the event this information is protected by the Federal Confidentiality of Alcohol and Drug Abuse Patient Records regulations: The Federal rules restrict any use of the information to criminally investigate or prosecute any alcohol or drug abuse patient.[facility]In the event this information is protected by the Federal Confidentiality of Alcohol and Drug Abuse Patient Records regulations: The Federal rules restrict any use of the information to criminally investigate or prosecute any alcohol or drug abuse patient.[facility]In the event this information is protected by the Federal Confidentiality of Alcohol and Drug Abuse Patient Records regulations: The Federal rules restrict any use of the information to criminally investigate or prosecute any alcohol or drug abuse patient.[facility]In the event this information is protected by the Federal Confidentiality of Alcohol and Drug Abuse Patient Records regulations: The Federal rules restrict any use of the information to criminally investigate or prosecute any alcohol or drug abuse patient.[facility] Reason for Visit (unrecogniz ed section and content) Reason Comments Follow Up helevated glucose Reason Onset Date Comments [facility] Health Navigation Outreach 12/22/2021 [employer] care gaps Reason Comments Orders Reason Comments Imm/Inj Reason Comments Follow Up Reason Comments Cough Cough and congestion x 2 weeks Reason Comments Statin Therapy Reason Comments Refill Request Reason Onset Date Comments [facility] Health Navigation Outreach 01/16/2023 [employer] Gaps [...] Clinic Specialty Diagnoses / Procedures Referred By Zandra oliva Referred To Contact Radiology Diagnoses Nonrheumatic aortic valve stenosis Procedures CTA Angiogram TAVR Sunita Davis, VICE PRESIDENT PLANNING - ROBOTIC MAINTENANCE TECHNICIAN [address] [place] [address] Referral ID Status Reason Start Date Expiration Date Visits Re quested Visits Authorized [id number] Closed 03/10/2024 05/09/2024 1 1 Specialty Diagnoses / Procedures Referred By Zandra oliva Referred To Contact Diagnoses Nonrheumatic aortic valve stenosis Procedures RI REPLACE AORTIC VALVE PERQ FEMORAL ARTRY APPROACH TRANSCATHETER AORTIC VALVE REPLACEMENT, TRANSTHORACIC ECHOCARDIOGRAM TRANSCATHETER AORTIC VALVE REPLACEMENT, TRANSTHORACIC ECHOCARDIOGRAM Bittenbender, Peter, MD [address] [facility] [address] [place] [address] Referral ID Status Reason Start Date Expiration Date Visits Re quested Visits Authorized [id number] 03/17/2024 1 1 Reason Comments Hospital Follow-up Reason Onset Date Comments Refill Request 04/23/2024 Reason Comments 1 Month Follow Up Specialty Diagnoses / Procedures Referred By Contac t Referred To Contact Cardiology Diagnoses Aortic valve stenosis, etiology of cardiac valve disease unspecified Procedures Transthoracic echocardiogram (TTE) complete with contrast, bubble, strain, and 3D PRN RI ECHO TTHRC R-T 2D W/WOM-MODE COMPL SPEC&COLR D RI TTE W OR WO FOL WCON,DOPPLER Lindsey Tolentino, VICE PRESIDENT PLANNING - ROBOTIC MAINTENANCE TECHNICIAN [address] [facility] [address] [place] [address] Referral ID Status Reason Start Date Expiration Date Visits Re quested Visits Authorized [id number] Closed 05/07/2024 07/05/2024 1 1 Reason Onset [...] Comments Population Health Navigation Outreach 01/01/2025 [employer] heidi Reason Comments Recheck Oxempic was unable t o tolerate the 0.5 mg as it did cause constipation but at 0.25 mg she is back to normal. Reason Comments Lab Orders Reason Onset Date Comments patient cancelled request 12/10/2024 Reason Comments Medication Problem Refill Request Reason Onset Date Comments Refill Request 02/15/2025 Care Teams (unrecognized sec tion and content) Nuclear Medicine Supervisor Relationship Specialty Start Date End Date Abby Mcclellan MD [address] [place], [place] [address] PCP - General Internal Medicine 12/05/12 Nuclear Medicine Supervisor Relationship Specialty Start Date End Date Abby Mcclellan MD [address] [place], [place] [id number] PCP - General Internal Medicine 12/05/12 Nuclear Medicine Supervisor Relationship Specialty Start Date End Date Abby Mcclellan MD [address] [place] [address] PCP - General Internal Medicine 12/05/12 Nuclear Medicine Supervisor Relationship Specialty Start Date End Date Abby Mcclellan MD [address] [place] [address] PCP - General Internal Medicine 12/05/12 Nuclear Medicine Supervisor Relationship Specialty Start Date End Date Abby Mcclellan MD [address] [place] [address] PCP - General Internal Medicine 12/05/12 Nuclear Medicine Supervisor Relationship Specialty Start Date End Date Abby Mcclellan MD [address] [place] [address] PCP - General Internal Medicine 12/05/12 Nuclear Medicine Supervisor Relationship Specialty Start Date End Date Abby Mcclellan MD [address] [place] [address] PCP - General Internal Medicine 12/05/12 Nuclear Medicine Supervisor Relationship Specialty Start Date End Date Abby Mcclellan MD [address] [place] [address] PCP - General Internal Medicine 12/05/12 Nuclear Medicine Supervisor Relationship Specialty Start Date End Date Abby Mcclellan MD [address] [place] [address] PCP - General Internal Medicine 12/05/12 Nuclear Medicine Supervisor Relationship Specialty Start Date End Date Abby Mcclellan MD [address] [place] [address] PCP - General Internal Medicine 12/05/12 Nuclear Medicine Supervisor Relationship Specialty Start Date End Date Abby Mcclellan MD [address] [facility] [place] [address] PCP - General Internal Medicine 12/05/12 Nuclear Medicine Supervisor Relationship Specialty Start Date End Date Abby Mcclellan MD [address] [facility] [place] [address] PCP - General Internal Medicine 12/05/12 Nuclear Medicine Supervisor Relationship Specialty Start Date End Date Abby Mcclellan MD [address] [facility] [place] [address] PCP - General Internal Medicine 12/05/12 Nuclear Medicine Supervisor Relationship Specialty Start Date End Date Abby Mcclellan MD [address] [facility] [place] [address] PCP - General Internal Medicine 12/05/12 Nuclear Medicine Supervisor Relationship Specialty Start Date End Date Abby Mcclellan MD [address] [facility] [place] [address] PCP - General Internal Medicine 12/05/12 Nuclear Medicine Supervisor Relationship Specialty Start Date End Date Abby Mcclellan MD [address] [facility] [place] [address] PCP - General Internal Medicine 12/05/12 Nuclear Medicine Supervisor Relationship Specialty Start Date End Date Abby Mcclellan MD [address] [facility] [place] [address] PCP - General Internal Medicine 12/05/12 Nuclear Medicine Supervisor Relationship Specialty Start Date End Date Abby Mcclellan [address] [facility] [place] [address] PCP - General Internal Medicine 03/10/24 Nuclear Medicine Supervisor Relationship Specialty Start Date End Date Abby Mcclellan [address] [facility] [place] [address] PCP - General Internal Medicine 03/10/24 Nuclear Medicine Supervisor Relationship Specialty Start Date End Date Abby Mcclellan [address] [facility] [place] [address] PCP - General Internal Medicine 03/10/24 Nuclear Medicine Supervisor Relationship Specialty Start Date End Date Abby Mcclellan [address] [facility] [place] [address] PCP - General Internal Medicine 03/10/24 Nuclear Medicine Supervisor Relationship Specialty Start Date End Date Abby Mcclellan [address] [facility] [place] [address] PCP - General Internal Medicine 03/10/24 Nuclear Medicine Supervisor Relationship Specialty Start Date End Date Abby Mcclellan [address] [facility] [place] [address] PCP - General Internal Medicine 03/10/24 Nuclear Medicine Supervisor Relationship Specialty Start Date End Date Abby Mcclellan MD [address] [facility] [place] [address] PCP - General Internal Medicine 12/05/12 Nuclear Medicine Supervisor Relationship Specialty Start Date End Date Abby Mcclellan MD [address] [facility] [place] [address] PCP - General Internal Medicine 12/05/12 Nuclear Medicine Supervisor Relationship Specialty Start Date End Date Abby Mcclellan [address] [place], [place] [address] PCP - General Internal Medicine 03/10/24 Nuclear Medicine Supervisor Relationship Specialty Start Date End Date Abby Mcclellan [address] [place], [place] [address] PCP - General Internal Medicine 03/10/24 Nuclear Medicine Supervisor Relationship Specialty Start Date End Date Abby Mcclellan [address] [place] [address] PCP - General Internal Medicine 03/10/24 Nuclear Medicine Supervisor Relationship Specialty Start Date End Date Abby Mcclellan [address] [place] [address] PCP - General Internal Medicine 03/10/24 Nuclear Medicine Supervisor Relationship Specialty Start Date End Date Abby Mcclellan MD [address] [place] [address] PCP - General Internal Medicine 12/05/12 Heidy Hawk, VICE PRESIDENT PLANNING.SENIOR AUDIT MANAGER [address] [place] [address] Cemetery Counselor Internal Medicine 07/06/24 Kamlesh Acosta VICE PRESIDENT PLANNING.ROBOTIC MAINTENANCE TECHNICIAN [address] [place] [address] Cemetery Counselor Internal Medicine 07/06/24 Nuclear Medicine Supervisor Relationship Specialty Start Date End Date Abby Mcclellan MD [address] [place], [place] [address] PCP - General Internal Medicine 12/05/12 Heidy Hawk, VICE PRESIDENT PLANNING.SENIOR AUDIT MANAGER [address] [facility] [place] [address] Cemetery Counselor Internal Medicine 07/06/24 Kamlesh Acosta VICE PRESIDENT PLANNING.ROBOTIC MAINTENANCE TECHNICIAN [address] [facility] [address] Cemetery Counselor Internal Medicine 07/06/24 Nuclear Medicine Supervisor Relationship Specialty Start Date End Date Abby Mcclellan MD [address] [facility] [place] [address] PCP - General Internal Medicine 12/05/12 Heidy Hawk, VICE PRESIDENT PLANNING.SENIOR AUDIT MANAGER [address] [place] [address] Cemetery Counselor Internal Medicine 07/06/24 Kamlesh Acosta VICE PRESIDENT PLANNING.ROBOTIC MAINTENANCE TECHNICIAN [address] [place] [address] Cemetery Counselor Internal Medicine 07/06/24 Nuclear Medicine Supervisor Relationship Specialty Start Date End Date Abby Mcclellan MD [address] [place] [address] PCP - General Internal Medicine 12/05/12 Heidy Hawk, VICE PRESIDENT PLANNING.SENIOR AUDIT MANAGER [address] [facility] [place] [address] Cemetery Counselor Internal Medicine 07/06/24 Kamlesh Acosta VICE PRESIDENT PLANNING.ROBOTIC MAINTENANCE TECHNICIAN [address] [facility] [place] [address] Cemetery Counselor Internal Medicine 07/06/24 Nuclear Medicine Supervisor Relationship Specialty Start Date End Date Abby Mcclellan MD [address] [facility], [place] [address] PCP - General Internal Medicine 12/05/12 Heidy Hawk, VICE PRESIDENT PLANNING.SENIOR AUDIT MANAGER [address] [facility] [place], [place] [address] Cemetery Counselor Internal Medicine 07/06/24 Kamlesh Acosta VICE PRESIDENT PLANNING.ROBOTIC MAINTENANCE TECHNICIAN [address] [facility] [place], [place] [address] Cemetery Counselor Internal Medicine 10/20/24 Team Status: Active Member [...] December 07, 2024 End: December 07, 2024 Nuclear Medicine Supervisor Relationship Specialty Start Date End Date Abby Mcclellan [address] [facility], [place] [id number] PCP - General Internal Medicine 03/10/24 Nuclear Medicine Supervisor Relationship Specialty Start Date End Date Abby Mcclellan MD [address] [facility], [place] [id number] PCP - General Internal Medicine 12/05/12 Kamlesh Acosta VICE PRESIDENT PLANNING.ROBOTIC MAINTENANCE TECHNICIAN [address] [place] [address] Cemetery Counselor Internal Medicine 10/20/24 Heidy Hawk, VICE PRESIDENT PLANNING.SENIOR AUDIT MANAGER [address] [place] [address] Cemetery Counselor Internal Medicine 12/16/24 Nuclear Medicine Supervisor Relationship Specialty Start Date End Date Abby Mcclellan MD [address] [place] [address] PCP - General Internal Medicine 12/05/12 Kamlesh Acosta VICE PRESIDENT PLANNING.ROBOTIC MAINTENANCE TECHNICIAN [address] [place] [address] Cemetery Counselor Internal Medicine 10/20/24 Heidy Hawk, VICE PRESIDENT PLANNING.SENIOR AUDIT MANAGER [address] [place] [address] Cemetery Counselor Internal Medicine 12/16/24 Nuclear Medicine Supervisor Relationship Specialty Start Date End Date Abby Mcclellan MD [address] [place] [address] PCP - General Internal Medicine 12/05/12 Kamlesh Acosta VICE PRESIDENT PLANNING.ROBOTIC MAINTENANCE TECHNICIAN [address] [place] [address] Cemetery Counselor Internal Medicine 10/20/24 Heidy Hawk, VICE PRESIDENT PLANNING.SENIOR AUDIT MANAGER [address] [place] [address] Cemetery Counselor Internal Medicine 12/16/24 Nuclear Medicine Supervisor Relationship Specialty Start Date End Date Abby Mcclellan MD [address] [facility] [place] [address] PCP - General Internal Medicine 12/05/12 Kamlesh Acosta, VICE PRESIDENT PLANNING.ROBOTIC MAINTENANCE TECHNICIAN [address] [facility] [address] Cemetery Counselor Internal Medicine 10/20/24 Heidy Hawk, VICE PRESIDENT PLANNING.SENIOR AUDIT MANAGER [address] [facility] [address] Cemetery Counselor Internal Medicine 12/16/24 Nuclear Medicine Supervisor Relationship Specialty Start Date End Date Abby Mcclellan MD [address] [facility] [address] PCP - General Internal Medicine 12/05/12 Heidy Hawk, VICE PRESIDENT PLANNING.SENIOR AUDIT MANAGER [address] [facility] [address] Cemetery Counselor Internal Medicine 07/06/24 12/15/24 Kamlesh Acosta, VICE PRESIDENT PLANNING.ROBOTIC MAINTENANCE TECHNICIAN [address] [facility] [address] Cemetery Counselor Internal Medicine 10/20/24 Heidy Hawk, VICE PRESIDENT PLANNING.SENIOR AUDIT MANAGER [address] [facility] [place] [address] Cemetery Counselor Internal Medicine 12/16/24 Team Status: Active Member [...] Hilary Jackman Attending Provider Active Start: 2024 Team Status: Inactive Member Role/Relationship Status [...] February 08, 2025 End: February 08, 2025 Nuclear Medicine Supervisor Relationship Specialty Start Date End Date Abby Mcclellan MD [address] [place] [address] PCP - General Internal Medicine 12/05/12 Kamlesh Acosta VICE PRESIDENT PLANNING.ROBOTIC MAINTENANCE TECHNICIAN [address] [place], [place] [address] Cemetery Counselor Internal Medicine 10/20/24 Heidy Hawk, VICE PRESIDENT PLANNING.SENIOR AUDIT MANAGER [address] [place], [place] [id number] Cemetery Counselor Internal Medicine 12/16/24 Team Status: Inactive Member Role/Relationship Status Dates Dr. Abby Mcclellan MD Primary Care Provider Active Start: February 08, 2025 End: February 08, 2025 Dr. Abby Mcclellan MD Referring Provider Active Start: February 08, 2025 End: February 08, 2025 Dr. Ac Hubbard MD Attending Provider Active S tart: February 08, 2025 End: February 08, 2025 Team Status: Active Member Role/Relationship Status Dates Dr. Abby Mcclellan MD Primary Care Provider Active Start: February 26, 2025 Dr. Epi Lynch DO Emergency Provider Active Start : February 26, 2025 Dr. Doug Argueta DO Admit Provider Active Start: February 26, 2025 Dr. Doug Argueta DO Attending Provider Active Start: February 26, 2025 Team Status: Inactive Member Role/Relationship Status Dates Dr. Abby Mcclellan MD Primary Care Provider Active Start: February 26, 2025 End: March 04, 2025 Dr. Epi Lynch DO Emergency Provider Active Start : February 26, 2025 End: March 04, 2025 Dr. Doug Argueta DO Admit Provider Active Start: February 26, 2025 End: March 04, 2025 Dr. Doug Argueta DO Other Provider Active Start: February 26, 2025 End: March 04, 2025 Dr. Jesus Alberto Lopez MD Other Provider Active Start: February 26, 2025 End: March 04, 2025 Dr. Alen Borjas DO Attending Provider Active Start: February 26, 2025 End: March 04, 2025 Dr. Candis Willson MD Other Provider Active St art: February 26, 2025 End: March 04, 2025 Dr. Darion Pimentel MD Other Provider Active Star t: February 26, 2025 Dr. Donnell Mendez DO Other Provider Active Start : February 26, 2025 Dr. Doug Rueda MD Other Provider Active Sta rt: February 26, 2025 Dr. Frank Hanson MD Other Provider Active St art: February 26, 2025 Dr. Desean Cali MD Other Provider Active S tart: February 26, 2025 Dr. Marcella Pagan MD Other Provider Active Start: February 26, 2025 Dr. Donald Ramirez MD Other Provider Active Start : February 26, 2025 Dr. Ayan Lee MD Other Provider Active Start: February 26, 2025 Dr. Joao Cote MD Other Provider Active Start : February 26, 2025 Dr. Robina Salgado MD Other Provider Active Star t: February 26, 2025 Dr. Altaf Cruz MD Other Provider Active Sta rt: February 26, 2025 Dr. Jacquelin Blanco MD Other Provider Active Sta rt: February 26, 2025 Dr. Derrick Ames MD Other Provider Active Star t: February 26, 2025 Dr. August Berkowitz MD Other Provider Active St art: February 26, 2025 Dr. Damir Zabala MD Other Provider Active Star t: February 26, 2025 Dr. Campbell Carlos DO Other Provider Active St art: February 26, 2025 Dr. Rip Larios MD Other Provider Active Start: February 26, 2025 Dr. Nura Kahn MD Other Provider Active St art: February 26, 2025 Dr. Jani Myers DO Other Provider Active Start: February 26, 2025 Dr. Timmy Dickinson MD Other Provider Active Star t: February 26, 2025 Dr. Jean Claude Pereira MD Other Provider Active Sta rt: February 26, 2025 Team Status: Active Member Role/Relationship Status Dates Dr. Abby Mcclellan MD Primary Care Provider Active Start: February 26, 2025 Dr. Epi Lynch DO Emergency Provider Active Start : February 26, 2025 Dr. Doug Argueta DO Admit Provider Active Start: February 26, 2025 Dr. Doug Argueta DO Other Provider Active Start: February 26, 2025 Dr. Mk Tesfaye MD Other Provider Active Start: February 26, 2025 Dr. Miguel Heath MD Other Provider Active Start: February 26, 2025 Dr. Darion Pimentel MD Other Provider Active Star t: February 26, 2025 Dr. Donnell Mendez DO Attending Provider Active S tart: February 26, 2025 Dr. Donnell Mendez DO Other Provider Active Start : February 26, 2025 Dr. Doug Rueda MD Other Provider Active Sta rt: February 26, 2025 Dr. Frank Hansno MD Other Provider Active St art: February 26, 2025 Dr. Desean Cali MD Other Provider Active S tart: February 26, 2025 Dr. Marcella Pagan MD Other Provider Active Start: February 26, 2025 Dr. Donald Ramirez MD Other Provider Active Start : February 26, 2025 Dr. Ayan Lee MD Other Provider Active Start: February 26, 2025 Dr. Joao Cote MD Other Provider Active Start : February 26, 2025 Dr. Robina Salgado MD Other Provider Active Star t: February 26, 2025 Dr. Altaf Cruz MD Other Provider Active Sta rt: February 26, 2025 Dr. Jacquelin Blanco MD Other Provider Active Sta rt: February 26, 2025 Dr. Derrick Ames MD Other Provider Active Star t: February 26, 2025 Dr. August Berkowitz MD Other Provider Active St art: February 26, 2025 Dr. Damir Zabala MD Other Provider Active Star t: February 26, 2025 Dr. Campbell Carlos DO Other Provider Active St art: February 26, 2025 Dr. Rip Larios MD Other Provider Active Start: February 26, 2025 Dr. Nura Kahn MD Other Provider Active St art: February 26, 2025 Dr. Jani Myers DO Other Provider Active Start: February 26, 2025 Dr. Timmy Dickinson MD Other Provider Active Star t: February 26, 2025 Dr. Jean Claude Pereira MD Other Provider Active Sta rt: February 26, 2025 Dr. Candis Willson MD Other Provider Active St art: February 26, 2025 Dr. Jesus Alberto Lopez MD Other Provider Active Start: February 26, 2025 Team Status: Active Member Role/Relationship Status Dates Dr. Abby Mcclellan MD Primary Care Provider Active Start: February 26, 2025 Cesar Baker MD Attending Provider Active Start: February 26, 2025 Dr. Donnell Mendez DO Referring Provider Active S tart: February 26, 2025 Team Status: Active Member Role/Relationship Status Dates Dr. Abby Mcclellan MD Primary Care Provider Active Start: February 27, 2025 Dr. Epi Lynch DO Emergency Provider Active Start : February 27, 2025 Dr. Doug Argueta DO Admit Provider Active Start: February 27, 2025 Dr. Doug Argueta DO Other Provider Active Start: February 27, 2025 Dr. Mk Tesfaye MD Other Provider Active Start: February 27, 2025 Dr. Miguel Heath MD Other Provider Active Start: February 27, 2025 Dr. Darion Pimentel MD Other Provider Active Star t: February 27, 2025 Dr. Donnell Mendez DO Other Provider Active Start : February 27, 2025 Dr. Doug Rueda MD Other Provider Active Sta rt: February 27, 2025 Dr. Frank Hanson MD Other Provider Active St art: February 27, 2025 Dr. Desean Cali MD Other Provider Active S tart: February 27, 2025 Dr. Marcella Pagan MD Other Provider Active Start: February 27, 2025 Dr. Donald Ramirez MD Other Provider Active Start : February 27, 2025 Dr. Ayan Lee MD Other Provider Active Start: February 27, 2025 Dr. Joao Cote MD Other Provider Active Start : February 27, 2025 Dr. Robina Salgado MD Other Provider Active Star t: February 27, 2025 Dr. Altaf Cruz MD Other Provider Active Sta rt: February 27, 2025 Dr. Jacquelin Blanco MD Other Provider Active Sta rt: February 27, 2025 Dr. Derrick Ames MD Other Provider Active Star t: February 27, 2025 Dr. August Berkowitz MD Other Provider Active St art: February 27, 2025 Dr. Damir Zabala MD Other Provider Active Star t: February 27, 2025 Dr. Campbell Carlos DO Other Provider Active St art: February 27, 2025 Dr. Rip Larios MD Other Provider Active Start: February 27, 2025 Dr. Nura Kahn MD Other Provider Active St art: February 27, 2025 Dr. Jani Myers DO Other Provider Active Start: February 27, 2025 Dr. Timmy Dickinson MD Other Provider Active Star t: February 27, 2025 Dr. Jean Claude Pereira MD Other Provider Active Sta rt: February 27, 2025 Dr. Candis Willson MD Attending Provider Active Start: February 27, 2025 Dr. Candis Willson MD Other Provider Active St art: February 27, 2025 Dr. Jesus Alberto Lopez MD Other Provider Active Start: February 27, 2025 Team Status: Active Member Role/Relationship Status Dates Dr. Abby Mcclellan MD Primary Care Provider Active Start: February 28, 2025 Dr. Epi Lynch DO Emergency Provider Active Start : February 28, 2025 Dr. Doug Argueta DO Admit Provider Active Start: February 28, 2025 Dr. Doug Argueta DO Other Provider Active Start: February 28, 2025 Dr. Mk Tesfaye MD Other Provider Active Start: February 28, 2025 Dr. Miguel Heath MD Other Provider Active Start: February 28, 2025 Dr. Darion Pimentel MD Other Provider Active Star t: February 28, 2025 Dr. Donnell Mendez DO Other Provider Active Start : February 28, 2025 Dr. Doug Rueda MD Other Provider Active Sta rt: February 28, 2025 Dr. Frank Hanson MD Other Provider Active St art: February 28, 2025 Dr. Desean Cali MD Other Provider Active S tart: February 28, 2025 Dr. Marcella Pagan MD Other Provider Active Start: February 28, 2025 Dr. Donald Ramirez MD Other Provider Active Start : February 28, 2025 Dr. Ayan Lee MD Other Provider Active Start: February 28, 2025 Dr. Joao Cote MD Other Provider Active Start : February 28, 2025 Dr. Robina Salgado MD Other Provider Active Star t: February 28, 2025 Dr. Altaf Cruz MD Other Provider Active Sta rt: February 28, 2025 Dr. Jacquelin Blanco MD Other Provider Active Sta rt: February 28, 2025 Dr. Derrick Ames MD Other Provider Active Star t: February 28, 2025 Dr. August Berkowitz MD Other Provider Active St art: February 28, 2025 Dr. Damir Zabala MD Other Provider Active Star t: February 28, 2025 Dr. Campbell Carlos DO Other Provider Active St art: February 28, 2025 Dr. Rip Larios MD Other Provider Active Start: February 28, 2025 Dr. Nura Kahn MD Other Provider Active St art: February 28, 2025 Dr. Jani Myers DO Other Provider Active Start: February 28, 2025 Dr. Timmy Dickinson MD Other Provider Active Star t: February 28, 2025 Dr. Jean Claude Pereira MD Other Provider Active Sta rt: February 28, 2025 Dr. Candis Willson MD Attending Provider Active Start: February 28, 2025 Dr. Candis Willson MD Other Provider Active St art: February 28, 2025 Dr. Jesus Alberto Lopez MD Other Provider Active Start: February 28, 2025 Team Status: Active Member Role/Relationship Status Dates Dr. Abby Mcclellan MD Primary Care Provider Active Start: March 01, 2025 Dr. Ac Hubbard MD Attending Provider Active S tart: March 01, 2025 Team Status: Active Member Role/Relationship Status Dates Dr. Abby Mcclellan MD Primary Care Provider Active Start: March 01, 2025 Dr. Epi Lynch DO Emergency Provider Active Start : March 01, 2025 Dr. Doug Argueta DO Admit Provider Active Start: March 01, 2025 Dr. Doug Argueta DO Other Provider Active Start: March 01, 2025 Dr. Jesus Alberto Lopez MD Other Provider Active Start: March 01, 2025 Dr. Mk Tesfaye MD Other Provider Active Start: March 01, 2025 Dr. Miguel Heath MD Other Provider Active Start: March 01, 2025 Dr. Darion Pimentel MD Other Provider Active Star t: March 01, 2025 Dr. Donnell Mendez DO Attending Provider Active S tart: March 01, 2025 Dr. Donnell Mendez DO Other Provider Active Start : March 01, 2025 Dr. Doug Rueda MD Other Provider Active Sta rt: March 01, 2025 Dr. Frank Hanson MD Other Provider Active St art: March 01, 2025 Dr. Desean Cali MD Other Provider Active S tart: March 01, 2025 Dr. Marcella Pagan MD Other Provider Active Start: March 01, 2025 Dr. Donald Ramirez MD Other Provider Active Start : March 01, 2025 Dr. Ayan Lee MD Other Provider Active Start: March 01, 2025 Dr. Joao Cote MD Other Provider Active Start : March 01, 2025 Dr. Robina Salgado MD Other Provider Active Star t: March 01, 2025 Dr. Altaf Cruz MD Other Provider Active Sta rt: March 01, 2025 Dr. Jacquelin Blanco MD Other Provider Active Sta rt: March 01, 2025 Dr. Derrick Ames MD Other Provider Active Star t: March 01, 2025 Dr. August Berkowitz MD Other Provider Active St art: March 01, 2025 Dr. Damir Zabala MD Other Provider Active Star t: March 01, 2025 Dr. Campbell Carlos DO Other Provider Active St art: March 01, 2025 Dr. Rip Larios MD Other Provider Active Start: March 01, 2025 Dr. Nura Kahn MD Other Provider Active St art: March 01, 2025 Dr. Jani Myers DO Other Provider Active Start: March 01, 2025 Dr. Timmy Dickinson MD Other Provider Active Star t: March 01, 2025 Dr. Jean Claude Pereira MD Other Provider Active Sta rt: March 01, 2025 Dr. Alen Borjas , Other Provider Active S tart: March 01, 2025 Dr. Candis Willson MD Other Provider Active St art: March 01, 2025 Team Status: Active Member Role/Relationship Status Dates Dr. Abby Mcclellan MD Primary Care Provider Active Start: March 01, 2025 Dr. Epi Lynch DO Emergency Provider Active Start : March 01, 2025 Dr. Doug Argueta DO Admit Provider Active Start: March 01, 2025 Dr. Doug Argueta DO Other Provider Active Start: March 01, 2025 Dr. Jesus Alberto Lopez MD Other Provider Active Start: March 01, 2025 Dr. Mk Tesfaye MD Other Provider Active Start: March 01, 2025 Dr. Miguel Heath MD Other Provider Active Start: March 01, 2025 Dr. Darion Pimentel MD Other Provider Active Star t: March 01, 2025 Dr. Donnell Mendez DO Other Provider Active Start : March 01, 2025 Dr. Doug Rueda MD Other Provider Active Sta rt: March 01, 2025 Dr. Frank Hanson MD Other Provider Active St art: March 01, 2025 Dr. Desean Cali MD Other Provider Active S tart: March 01, 2025 Dr. Marcella Pagan MD Other Provider Active Start: March 01, 2025 Dr. Donald Ramirez MD Other Provider Active Start : March 01, 2025 Dr. Ayan Lee MD Other Provider Active Start: March 01, 2025 Dr. Joao Cote MD Other Provider Active Start : March 01, 2025 Dr. Robina Salgado MD Other Provider Active Star t: March 01, 2025 Dr. Altaf Cruz MD Other Provider Active Sta rt: March 01, 2025 Dr. Jacquelin Blanco MD Other Provider Active Sta rt: March 01, 2025 Dr. Derrick Ames MD Other Provider Active Star t: March 01, 2025 Dr. August Berkowitz MD Other Provider Active St art: March 01, 2025 Dr. Damir Zabala MD Other Provider Active Star t: March 01, 2025 Dr. Campbell Dhesi , DO Other Provider Active St art: March 01, 2025 Dr. Rip Larios MD Other Provider Active Start: March 01, 2025 Dr. Nura Kahn MD Other Provider Active St art: March 01, 2025 Dr. Jani Myers , Other Provider Active Start: March 01, 2025 Dr. Timmy Dickinson MD Other Provider Active Star t: March 01, 2025 Dr. Jean Claude Pereira MD Other Provider Active Sta rt: March 01, 2025 Dr. Alen Borjas , Attending Provider Active Start: March 01, 2025 Dr. Alen Borjas DO Other Provider Active S tart: March 01, 2025 Dr. Candis Willson MD Other Provider Active St art: March 01, 2025 Team Status: Active Member Role/Relationship Status Dates Dr. Abby Mcclellan MD Primary Care Provider Active Start: March 02, 2025 Dr. Epi Lynch , Emergency Provider Active Start : March 02, 2025 Dr. Doug Argueta DO Admit Provider Active Start: March 02, 2025 Dr. Doug Argueta DO Other Provider Active Start: March 02, 2025 Dr. Jesus Alberto Lopez MD Other Provider Active Start: March 02, 2025 Dr. Alen Borjas DO Attending Provider Active Start: March 02, 2025 Dr. Alen Borjas DO Other Provider Active S tart: March 02, 2025 Dr. Candis Willson MD Other Provider Active St art: March 02, 2025 Team Status: Active Member Role/Relationship Status Dates Dr. Abby Mcclellan MD Primary Care Provider Active Start: March 03, 2025 Dr. Epi Lynch DO Emergency Provider Active Start : March 03, 2025 Dr. Doug Argueta DO Admit Provider Active Start: March 03, 2025 Dr. Doug Argueta DO Other Provider Active Start: March 03, 2025 Dr. Jesus Alberto Lopez MD Other Provider Active Start: March 03, 2025 Dr. Alen Borjas DO Attending Provider Active Start: March 03, 2025 Dr. Alen Borjas DO Other Provider Active S tart: March 03, 2025 Dr. Candis Willson MD Other Provider Active St art: March 03, 2025 Team Status: Inactive Member Role/Relationship Status Dates Dr. Abby Mcclellan MD Primary Care Provider Active Start: March 05, 2025 End: March 05, 2025 Dr. Luther Zapata MD Emergency Provider Active Start: March 05, 2025 End: March 05, 2025 Team Status: Inactive Member Role/Relationship Status Dates Dr. Abby Mcclellan MD Primary Care Provider Active Start: February 02, 2025 End: February 02, 2025 Dr. Ac Hubbard MD Attending Provider Active S tart: February 02, 2025 End: February 02, 2025 Team Status: Inactive Member Role/Relationship Status [...] MD Primary Care Provider Active Start: February 26, 2025 End: March 04, 2025 Dr. Epi Lynch DO Emergency Provider Active Start : February 26, 2025 End: March 04, 2025 Dr. Doug Argueta DO Admit Provider Active Start: February 26, 2025 End: March 04, 2025 Dr. Doug Argueta DO Other Provider Active Start: February 26, 2025 End: March 04, 2025 Dr. Jesus Alberto Lopez MD Other Provider Active Start: February 26, 2025 End: March 04, 2025 Dr. Alen Borjas DO Attending Provider Active Start: February 26, 2025 End: March 04, 2025 Dr. Candis Willson MD Other Provider Active St art: February 26, 2025 End: March 04, 2025 Dr. Darion Pimentel MD Other Provider Active Star t: February 26, 2025 Dr. Donnell Mendez DO Other Provider Active Start : February 26, 2025 Dr. Doug Rueda MD Other Provider Active Sta rt: February 26, 2025 Dr. Frank Hanson MD Other Provider Active St art: February 26, 2025 Dr. Desean Cali MD Other Provider Active S tart: February 26, 2025 Dr. Marcella Pagan MD Other Provider Active Start: February 26, 2025 Dr. Donald Ramirez MD Other Provider Active Start : February 26, 2025 Dr. Ayan Lee MD Other Provider Active Start: February 26, 2025 Dr. Joao Cote MD Other Provider Active Start : February 26, 2025 Dr. Robina Salgado MD Other Provider Active Star t: February 26, 2025 Dr. Altaf Cruz MD Other Provider Active Sta rt: February 26, 2025 Dr. Jacquelin Blanco MD Other Provider Active Sta rt: February 26, 2025 Dr. Derrick Ames MD Other Provider Active Star t: February 26, 2025 Dr. August Berkowitz MD Other Provider Active St art: February 26, 2025 Dr. Damir Zabala MD Other Provider Active Star t: February 26, 2025 Dr. Campbell Carlos DO Other Provider Active St art: February 26, 2025 Dr. Rip Larios MD Other Provider Active Start: February 26, 2025 Dr. Nura Kahn MD Other Provider Active St art: February 26, 2025 Dr. Jani Myers DO Other Provider Active Start: February 26, 2025 Dr. Timmy Dickinson MD Other Provider Active Star t: February 26, 2025 Dr. Jean Claude Pereira MD Other Provider Active Sta rt: February 26, 2025 Team Status: Active Member Role/Relationship Status Dates Dr. Abby Mcclellan MD Primary Care Provider Active Start: February 26, 2025 Dr. Epi Lynch DO Emergency Provider Active Start : February 26, 2025 Dr. Doug Argueta DO Admit Provider Active Start: February 26, 2025 Dr. Doug Argueta DO Other Provider Active Start: February 26, 2025 Dr. Mk Tesfaye MD Other Provider Active Start: February 26, 2025 Dr. Miguel Heath MD Other Provider Active Start: February 26, 2025 Dr. Darion Pimentel MD Other Provider Active Star t: February 26, 2025 Dr. Donnell Mendez DO Attending Provider Active S tart: February 26, 2025 Dr. Donnell Mendez DO Other Provider Active Start : February 26, 2025 Dr. Doug Rueda MD Other Provider Active Sta rt: February 26, 2025 Dr. Frank Hanson MD Other Provider Active St art: February 26, 2025 Dr. Desean Cali MD Other Provider Active S tart: February 26, 2025 Dr. Marcella Pagan MD Other Provider Active Start: February 26, 2025 Dr. Donald Ramirez MD Other Provider Active Start : February 26, 2025 Dr. Ayan Lee MD Other Provider Active Start: February 26, 2025 Dr. Joao Cote MD Other Provider Active Start : February 26, 2025 Dr. Robina Salgado MD Other Provider Active Star t: February 26, 2025 Dr. Altaf Cruz MD Other Provider Active Sta rt: February 26, 2025 Dr. Jacquelin Blanco MD Other Provider Active Sta rt: February 26, 2025 Dr. Derrick Ames MD Other Provider Active Star t: February 26, 2025 Dr. August Berkowitz MD Other Provider Active St art: February 26, 2025 Dr. Damir Zabala MD Other Provider Active Star t: February 26, 2025 Dr. Campbell Carlos DO Other Provider Active St art: February 26, 2025 Dr. Rip Larios MD Other Provider Active Start: February 26, 2025 Dr. Nura Kahn MD Other Provider Active St art: February 26, 2025 Dr. Jani Myers DO Other Provider Active Start: February 26, 2025 Dr. Timmy Dickinson MD Other Provider Active Star t: February 26, 2025 Dr. Jean Claude Pereira MD Other Provider Active Sta rt: February 26, 2025 Dr. Candis Willson MD Other Provider Active St art: February 26, 2025 Dr. Jesus Alberto Lopez MD Other Provider Active Start: February 26, 2025 Team Status: Active Member Role/Relationship Status Dates Dr. Abby Mcclellan MD Primary Care Provider Active Start: February 26, 2025 Cesar Baker MD Attending Provider Active Start: February 26, 2025 Dr. Donnell Mendez DO Referring Provider Active S tart: February 26, 2025 Team Status: Active Member Role/Relationship Status Dates Dr. Abby Mcclellan MD Primary Care Provider Active Start: February 27, 2025 Dr. Epi Lynch DO Emergency Provider Active Start : February 27, 2025 Dr. Doug Argueta DO Admit Provider Active Start: February 27, 2025 Dr. Doug Argueta DO Other Provider Active Start: February 27, 2025 Dr. Mk Tesfaye MD Other Provider Active Start: February 27, 2025 Dr. Miguel Heath MD Other Provider Active Start: February 27, 2025 Dr. Darion Pimentel MD Other Provider Active Star t: February 27, 2025 Dr. Donnell Mendez DO Other Provider Active Start : February 27, 2025 Dr. Doug Rueda MD Other Provider Active Sta rt: February 27, 2025 Dr. Frank Hanson MD Other Provider Active St art: February 27, 2025 Dr. Desean Cali MD Other Provider Active S tart: February 27, 2025 Dr. Marcella Pagan MD Other Provider Active Start: February 27, 2025 Dr. Donald Ramirez MD Other Provider Active Start : February 27, 2025 Dr. Ayan Lee MD Other Provider Active Start: February 27, 2025 Dr. Joao Cote MD Other Provider Active Start : February 27, 2025 Dr. Robina Salgado MD Other Provider Active Star t: February 27, 2025 Dr. Altaf Cruz MD Other Provider Active Sta rt: February 27, 2025 Dr. Jacquelin Blanco MD Other Provider Active Sta rt: February 27, 2025 Dr. Derrick Ames MD Other Provider Active Star t: February 27, 2025 Dr. August Berkowitz MD Other Provider Active St art: February 27, 2025 Dr. Damir Zabala MD Other Provider Active Star t: February 27, 2025 Dr. Campbell Carlos , Other Provider Active St art: February 27, 2025 Dr. Rip Larios MD Other Provider Active Start: February 27, 2025 Dr. Nura Kahn MD Other Provider Active St art: February 27, 2025 Dr. Jani Myers , Other Provider Active Start: February 27, 2025 Dr. Timmy Dickinson MD Other Provider Active Star t: February 27, 2025 Dr. Jean Claude Pereira MD Other Provider Active Sta rt: February 27, 2025 Dr. Candis Willson MD Attending Provider Active Start: February 27, 2025 Dr. Candis Willson MD Other Provider Active St art: February 27, 2025 Dr. Jesus Alberto Lopez MD Other Provider Active Start: February 27, 2025 Team Status: Active Member Role/Relationship Status Dates Dr. Abby Mcclellan MD Primary Care Provider Active Start: February 28, 2025 Dr. Epi Lynch DO Emergency Provider Active Start : February 28, 2025 Dr. Doug Argueta DO Admit Provider Active Start: February 28, 2025 Dr. Doug Argueta DO Other Provider Active Start: February 28, 2025 Dr. Mk Tesfaye MD Other Provider Active Start: February 28, 2025 Dr. Miguel Heath MD Other Provider Active Start: February 28, 2025 Dr. Darion Pimentel MD Other Provider Active Star t: February 28, 2025 Dr. Donnell Mendez DO Other Provider Active Start : February 28, 2025 Dr. Doug Rueda MD Other Provider Active Sta rt: February 28, 2025 Dr. Frank Hanson MD Other Provider Active St art: February 28, 2025 Dr. Desean Cali MD Other Provider Active S tart: February 28, 2025 Dr. Marcella Pagan MD Other Provider Active Start: February 28, 2025 Dr. Donald Ramirez MD Other Provider Active Start : February 28, 2025 Dr. Ayan Lee MD Other Provider Active Start: February 28, 2025 Dr. Joao Cote MD Other Provider Active Start : February 28, 2025 Dr. Robina Salgado MD Other Provider Active Star t: February 28, 2025 Dr. Altaf Cruz MD Other Provider Active Sta rt: February 28, 2025 Dr. Jacquelin Blanco MD Other Provider Active Sta rt: February 28, 2025 Dr. Derrick Ames MD Other Provider Active Star t: February 28, 2025 Dr. August Berkowitz MD Other Provider Active St art: February 28, 2025 Dr. Damir Zabala MD Other Provider Active Star t: February 28, 2025 Dr. Campbell Carlos DO Other Provider Active St art: February 28, 2025 Dr. Rip Larios MD Other Provider Active Start: February 28, 2025 Dr. Nura Kahn MD Other Provider Active St art: February 28, 2025 Dr. Jani Myers DO Other Provider Active Start: February 28, 2025 Dr. Timmy Dickinson MD Other Provider Active Star t: February 28, 2025 Dr. Jean Claude Pereira MD Other Provider Active Sta rt: February 28, 2025 Dr. Candis Willson MD Attending Provider Active Start: February 28, 2025 Dr. Candis Wlilson MD Other Provider Active St art: February 28, 2025 Dr. Jesus Alberto Lopez MD Other Provider Active Start: February 28, 2025 Team Status: Active Member Role/Relationship Status Dates Dr. Abby Mcclellan MD Primary Care Provider Active Start: March 01, 2025 Dr. Ac Hubbard MD Attending Provider Active S tart: March 01, 2025 Team Status: Active Member Role/Relationship Status Dates Dr. Abby Mcclellan MD Primary Care Provider Active Start: March 01, 2025 Dr. Epi Lynch DO Emergency Provider Active Start : March 01, 2025 Dr. Doug Argueta DO Admit Provider Active Start: March 01, 2025 Dr. Doug Argueta DO Other Provider Active Start: March 01, 2025 Dr. Jesus Alberto Lopez MD Other Provider Active Start: March 01, 2025 Dr. Mk Tesfaye MD Other Provider Active Start: March 01, 2025 Dr. Miguel Heath MD Other Provider Active Start: March 01, 2025 Dr. Darion Pimentel MD Other Provider Active Star t: March 01, 2025 Dr. Donnell Mendez , Attending Provider Active S tart: March 01, 2025 Dr. Donnell Mendez , Other Provider Active Start : March 01, 2025 Dr. Doug Rueda MD Other Provider Active Sta rt: March 01, 2025 Dr. Frank Hanson MD Other Provider Active St art: March 01, 2025 Dr. Desean Cali MD Other Provider Active S tart: March 01, 2025 Dr. Marcella Pagan MD Other Provider Active Start: March 01, 2025 Dr. Donald Ramirez MD Other Provider Active Start : March 01, 2025 Dr. Ayan Lee MD Other Provider Active Start: March 01, 2025 Dr. Joao Cote MD Other Provider Active Start : March 01, 2025 Dr. Robina Salgado MD Other Provider Active Star t: March 01, 2025 Dr. Altaf Cruz MD Other Provider Active Sta rt: March 01, 2025 Dr. Jacquelin Blanco MD Other Provider Active Sta rt: March 01, 2025 Dr. Derrick Ames MD Other Provider Active Star t: March 01, 2025 Dr. August Berkowitz MD Other Provider Active St art: March 01, 2025 Dr. Damir Zabala MD Other Provider Active Star t: March 01, 2025 Dr. Campbell Carlos DO Other Provider Active St art: March 01, 2025 Dr. Rip Larios MD Other Provider Active Start: March 01, 2025 Dr. Nura Kahn MD Other Provider Active St art: March 01, 2025 Dr. Jani Myers DO Other Provider Active Start: March 01, 2025 Dr. Timmy Dickinson MD Other Provider Active Star t: March 01, 2025 Dr. Jean Claude Pereira MD Other Provider Active Sta rt: March 01, 2025 Dr. Alen Borjas DO Other Provider Active S tart: March 01, 2025 Dr. Candis Willson MD Other Provider Active St art: March 01, 2025 Team Status: Active Member Role/Relationship Status Dates Dr. Abby Mcclellan MD Primary Care Provider Active Start: March 01, 2025 Dr. Epi Lynch DO Emergency Provider Active Start : March 01, 2025 Dr. Doug Argueta DO Admit Provider Active Start: March 01, 2025 Dr. Doug Argueta , Other Provider Active Start: March 01, 2025 Dr. Jesus Alberto Lopez MD Other Provider Active Start: March 01, 2025 Dr. Mk Tesfaye MD Other Provider Active Start: March 01, 2025 Dr. Miguel Heath MD Other Provider Active Start: March 01, 2025 Dr. Darion Pimentel MD Other Provider Active Star t: March 01, 2025 Dr. Donnell Mendez , Other Provider Active Start : March 01, 2025 Dr. Doug Rueda MD Other Provider Active Sta rt: March 01, 2025 Dr. Frank Hanson MD Other Provider Active St art: March 01, 2025 Dr. Desean Cali MD Other Provider Active S tart: March 01, 2025 Dr. Marcella Pagan MD Other Provider Active Start: March 01, 2025 Dr. Donald Ramirez MD Other Provider Active Start : March 01, 2025 Dr. Ayan Lee MD Other Provider Active Start: March 01, 2025 Dr. Joao Cote MD Other Provider Active Start : March 01, 2025 Dr. Robina Salgado MD Other Provider Active Star t: March 01, 2025 Dr. Altaf Cruz MD Other Provider Active Sta rt: March 01, 2025 Dr. Jacquelin Blanco MD Other Provider Active Sta rt: March 01, 2025 Dr. Derrick Ames MD Other Provider Active Star t: March 01, 2025 Dr. August Berkowitz MD Other Provider Active St art: March 01, 2025 Dr. Damir Zabala MD Other Provider Active Star t: March 01, 2025 Dr. Campbell Carlos DO Other Provider Active St art: March 01, 2025 Dr. Rip Larios MD Other Provider Active Start: March 01, 2025 Dr. Nura Kahn MD Other Provider Active St art: March 01, 2025 Dr. Jani Myers DO Other Provider Active Start: March 01, 2025 Dr. Timmy Dickinson MD Other Provider Active Star t: March 01, 2025 Dr. Jean Claude Pereira MD Other Provider Active Sta rt: March 01, 2025 Dr. Alen Borjas DO Attending Provider Active Start: March 01, 2025 Dr. Alen Borjas DO Other Provider Active S tart: March 01, 2025 Dr. Candis Willson MD Other Provider Active St art: March 01, 2025 Team Status: Active Member Role/Relationship Status Dates Dr. Abby Mcclellan MD Primary Care Provider Active Start: March 02, 2025 Dr. Epi Lynch DO Emergency Provider Active Start : March 02, 2025 Dr. Doug Argueta DO Admit Provider Active Start: March 02, 2025 Dr. Doug Argueta DO Other Provider Active Start: March 02, 2025 Dr. Jesus Alberto Lopez MD Other Provider Active Start: March 02, 2025 Dr. Alen Borjas DO Attending Provider Active Start: March 02, 2025 Dr. Alen Borjas DO Other Provider Active S tart: March 02, 2025 Dr. Candis Willson MD Other Provider Active St art: March 02, 2025 Team Status: Active Member Role/Relationship Status Dates Dr. Abby Mcclellan MD Primary Care Provider Active Start: March 03, 2025 Dr. Epi Lynch DO Emergency Provider Active Start : March 03, 2025 Dr. Doug Argueta DO Admit Provider Active Start: March 03, 2025 Dr. Doug Argueta DO Other Provider Active Start: March 03, 2025 Dr. Jesus Alberto Lopez MD Other Provider Active Start: March 03, 2025 Dr. Alen Borjas DO Attending Provider Active Start: March 03, 2025 Dr. Alen Borjas DO Other Provider Active S tart: March 03, 2025 Dr. Candis Willson MD Other Provider Active St art: March 03, 2025 Team Status: Inactive Member Role/Relationship Status Dates Dr. Abby Mcclellan MD Primary Care Provider Active Start: March 05, 2025 End: March 05, 2025 Dr. Luther Zapata MD Attending Provider Active Start: March 05, 2025 End: March 05, 2025 Dr. Luther Zapata MD Emergency Provider Active Start: March 05, 2025 End: March 05, 2025 Team Status: Active Member Role/Relationship Status Dates Dr. Abby Mcclellan MD Primary Care Provider Active Start: March 08, 2025 Loulou BOGGS MD Attending Provider Active Start: March 08, 2025 Scheduled Active and Recently Administ ered Medications (unrecognized section and content) Medication Order 04/06/2024 04/07/2024 04/08/2024 aspirin EC tablet 81 mg 81 mg, Oral, Daily, First dose on Sat04/07/24 at 0900, Do not crush, chew, or split. 0933 (Given - Provider: Shasta Badillo, STORM) 0807 (Given - Provider: Alida Pina RN) [...] (Given - Provider: Al Araujo APRN - [employer]) glipiZIDE (Glucotrol) tablet 10 mg 10 mg, [...] 12 Units 1642 (Given - Provider: Irma Shane RN) 0800 (Not Given - Provider: Shasta Badillo [...] (Held by provider - Provider: Lindsey Tolentino VICE PRESIDENT PLANNING - [facility] - Reason: Other) 0728 (Unheld by provider - Provider: Jose Herndon MD)0801 (Given - Provider: Alida Pina RN) mupirocin (Bactroban) 2 % ointment 1 Application 1 Application, Nasal, 2 times daily, First dose on Sat04/06/24 at 1430, For 5 days, Recovery & On Unit, Indications: MRSA Nasal Decolonization 1642 (Given - Provider: Irma Shane RN)2108 (Given - Provider: Rhonda Kay RN) 0933 (Given - Provider: Shasta Badillo RN)205 (Given - Provider: Rhonda Kay RN) 0808 (Given - Provider: Alida Pina RN) pantoprazole (ProtoNix) 40 mg in sodium chloride (PF) 0.9 % 10 mL injection(Linked Group 2) 40 mg, IntraVENous, Administer over 2 Minutes, Daily before breakfast, First dose on Sat04/08/24 at 0600, Give only if unable to tolerate po. 0630 (See Alternative - Provider: Rhonda Kay RN) pantoprazole (ProtoNix) EC tablet 40 mg(Linked Group 2) 40 mg, Oral, Daily before breakfast, First dose on Sat04/08/24 at 0600, Do not crush, chew, or split. 0630 (Given - Provider: Rhonda Kay, RN) potassium chloride CR (Klor-Con M10) ER tablet [...] Recovery (only) 2108 (Given - Provider: Rhonda Kay, STORM) 0900 (Given - Provider: Shasta Badillo, STORM) vancomycin (Vancocin) 1,000 mg in sodium chloride 0.9 % 250 mL IVPB (COMPLETED) 1,000 mg, IntraVENous, at 166.7 mL/hr, Administer over 90 Minutes, Once, On Sat04/07/24 at 1215, For 1 dose, Preprocedure, Please send to EP lab ADD-[place] bag, Suspected Indication (Select all that apply): Surgical Prophylaxis 1238 (New Bag - Provider: Shivani Diaz RN)1350 (Stopped - Provider: Shasta Badillo RN - Comment: Not infusing on return to [facility]) Continuous Medication Order 04/06/2024 04/07/2024 04/08/2024 sodium chloride 0.9 % infusion (CANCELED) 50 mL/hr, IntraVENous, Continuous, Starting on Sat04/06/24 at 0915, Preprocedure, Upon admission to sameday - please start iv if patient does not have iv access. 0943 (New Bag - Provider: Tamela Lai RN)1148 (Continued by Anesthesia - Provider: Al Araujo APRN - ALEJANDRO)1309 (Anesthesia Volume Adjustment - Provider: MILDRED Da Silva CRNA) 0730 (Stopped - Provider: Shasta Badillo RN - [...] 1238, Intraprocedure 1238 (Given - Provider: Shivani Diaz, STORM) gentamicin (Garamycin) 80 mg in sodium chloride 0.9 % 500 mL irrigation (CANCELED) Irrigation, As needed, Starting on Sat04/07/24 at 1328, Intraprocedure 1328 (Given - Provider: Shivani Diaz, STORM) glucagon (human recombinant) injection 1 mg 1 [...] Eric Okeefe MD)1247 (Given - Provider: Shivani Diaz, STORM) midazolam (Versed) injection (CANCELED) IntraVENous, As needed, Starting on Sat04/07/24 at 1238, Intraprocedure 1238 (Given - Provider: Shivani Diaz, STORM) No Frequency Medication Order 04/06/2024 04/07/2024 04/08/2024 atropine 1 MG/10ML syringe - Pyxis ADS Override Pull (COMPLETED) Starting on Sat04/07/24 at 0947, For 1 dose, Shavonne Sutherland: cabinet override 1057 (Given - Provider: Jayson Badillo, STORM) Linked Groups Order Group 1: Insulin Lispro [...] ized section and content) DATE CREATED AUTHOR 01/13/2025 [facility] DATE CREATED AUTHOR AUTHOR'S ORGANIZ ATION 03/06/2025 [facility] DATE CREATED AUTHOR AUTHOR'S ORGANIZ ATION 03/22/2025 [facility] FOR RECORDS PERTAINING TO PATIENTS WHO [...] BE BASED ON THE PRIMARY CLINICAL RECORDS. [employer] [facility]. provides no warranty or guarantee of the accuracy or completeness of information in this document.
[2025-03-30 08:40] LABS: Hematocrit 38.6 % (37-47); Hemoglobin 13.0 g/dL (12.0-15.0); Immature Granulocytes Count 0.030 X10^3/uL (0.0-0.0); Mean Corp Hgb Conc 33.7 g/dL (32-36); Mean Corpuscular Volume 87.7 fL (81-99); Mean Platelet Vol. 12.0 fl (6.2-12.0); NRBC Flagged by Analyzer 0 % (0-5); Platelet Count 161 K/mm3 (150-450); RBC Distribution Width CV 13.1 % (11.6-14.6); RBC Distribution Width SD 42.1 fl (35.1-43.9); Red Blood Count 4.40 M/mm3 (4.2-5.4); White Blood Count 9.8 K/mm3 (4.4-11.0)
[2025-03-30 08:48] LABS: Anion Gap 12 (5-15); BUN 21 mg/dL (4-19); BUN/Creat Ratio 22.9 RATIO (10-20); Calcium,Total 8.8 mg/dL (7.6-11.0); Carbon Dioxide 24.5 mmol/L (21.0-32.0); Chloride 97 mmol/L (98-108); Glucose 181 mg/dL (70-99); Potassium 3.5 mmol/L (3.3-5.1)
== END ==
LOC: OLS.WHLTCC 04:00
PROVIDERS: PCP Internal Medicine; Referring Provider Internal Medicine; Visit Provider Internal Medicine
DX: E11.65 Type 2 diabetes mellitus with hyperglycemia (principal); A49.1 Streptococcal infection, unspecified site; R65.21 Severe sepsis with septic shock
CPT/HCPCS: 36415; 80048; 85025

== ENCOUNTER → 2025-04-06 05:00 | Outpatient (REF) | payer MEDICARE, SELFPAY ==
[2025-04-06 07:05] LABS: Hematocrit 39.8 % (37-47); Hemoglobin 13.1 g/dL (12.0-15.0); Immature Granulocytes Count 0.030 X10^3/uL (0.0-0.0); Mean Corp Hgb Conc 32.9 g/dL (32-36); Mean Corpuscular Volume 89.8 fL (81-99); Mean Platelet Vol. 11.6 fl (6.2-12.0); NRBC Flagged by Analyzer 0 % (0-5); Platelet Count 180 K/mm3 (150-450); RBC Distribution Width CV 13.5 % (11.6-14.6); RBC Distribution Width SD 44.3 fl (35.1-43.9); Red Blood Count 4.43 M/mm3 (4.2-5.4); White Blood Count 9.1 K/mm3 (4.4-11.0)
[2025-04-06 07:23] LABS: Anion Gap 14 (5-15); BUN 20 mg/dL (4-19); BUN/Creat Ratio 13.7 RATIO (10-20); Calcium,Total 8.3 mg/dL (7.6-11.0); Carbon Dioxide 20.9 mmol/L (21.0-32.0); Chloride 100 mmol/L (98-108); Glucose 226 mg/dL (70-99); Potassium 3.6 mmol/L (3.3-5.1)
== END ==
LOC: OLS.WHLTCC 05:00
PROVIDERS: PCP Internal Medicine; Visit Provider Internal Medicine
DX: A49.1 Streptococcal infection, unspecified site (principal); R65.21 Severe sepsis with septic shock; M62.561 Muscle wasting and atrophy, not elsewhere classified, right lower leg; M62.562 Muscle wasting and atrophy, not elsewhere classified, left lower leg; E11.65 Type 2 diabetes mellitus with hyperglycemia
CPT/HCPCS: 36415; 80048; 85025

== ENCOUNTER 2025-06-02 09:34 | Inpatient (IN) | payer MEDICARE, SELFPAY ==
[2025-06-02] VITALS (11 sets, daily range): BP systolic 79–120; BP diastolic 46–98; PULSE 66–78; RESP 14–24; TEMP 36.4–36.9; O2SAT 92–99; BMI 39.8; BMI 12.9
--- NOTE | 2025-06-02 09:39 | CT_ITS ---
PROCEDURE: CT/STROKE Brain/Head without Cont
--- NOTE | 2025-06-02 09:45 | CT_ITS ---
PROCEDURE: CT/STROKE CTA Head AND Neck W/Con
[2025-06-02 10:25] LABS: Hematocrit 35.6 % (37-47); Hemoglobin 11.9 g/dL (12.0-15.0); Immature Granulocytes Count 0.010 X10^3/uL (0.0-0.0); Mean Corp Hgb Conc 33.4 g/dL (32-36); Mean Corpuscular Volume 90.4 fL (81-99); Mean Platelet Vol. 11.7 fl (6.2-12.0); NRBC Flagged by Analyzer 0 % (0-5); Platelet Count 144 K/mm3 (150-450); RBC Distribution Width CV 14.7 % (11.6-14.6); RBC Distribution Width SD 49.0 fl (35.1-43.9); Red Blood Count 3.94 M/mm3 (4.2-5.4); White Blood Count 6.8 K/mm3 (4.4-11.0)
[2025-06-02 10:31] LABS: Partial Thromboplast Time 32.7 Seconds (24.1-36.2); Prothrombin Time (Protime)PT. 18.9 SECONDS (11.7-14.9)
[2025-06-02 10:44] LABS: Anion Gap 11 (5-15); BUN 33 mg/dL (4-19); BUN/Creat Ratio 18.8 RATIO (10-20); Calcium,Total 8.8 mg/dL (7.6-11.0); Carbon Dioxide 25.4 mmol/L (21.0-32.0); Chloride 100 mmol/L (98-108); Estimated Creatinine Clearance 27.60 ml/min (50-250); Glucose 111 mg/dL (70-99); Potassium 3.8 mmol/L (3.3-5.1); Troponin T High Sensitivity 22 ng/L (<=14)
--- NOTE | 2025-06-02 10:51 | ED.VIS.STROK ---
HPI History of Present Illness Chief Complaint: Stroke Alert Informant: patient, spouse/S.O. and EMS Narrative Narrative: Patient is a 74-year-old female presenting with altered mental status, speech difficulty, and right arm weakness. Per EMS, she is a assisted patient and was found this way this morning, was not like this yesterday but nobody at snf facility knew the last known normal/baseline. - Family member reports that patient's speech is slightly worse than usual today. Also reports that she usually has weakness in both of her legs which is why she is in the assisted right now. - Denies chest pain, dyspnea, headache, focal numbness, or any other acute symptom right now. Denies any recent fall. - Denies previous known CVA. - Currently on anticoagulant therapy, apixaban. [facility] Medical History Streptococcal bacteremia Septic shock Chronic anticoagulation Thrombocytopenia Morbid obesity with BMI of 45.0-49.9, adult Hyperglycemia due to type 2 diabetes mellitus Adverse drug reaction Metabolic encephalopathy Tachycardia Lactic acidosis Fever Sepsis due to undetermined organism Chronic anticoagulation Acidosis, lactic Encephalopathy Fever Paroxysmal atrial fibrillation Intermittent complete heart block Presence of cardiac pacemaker Obesity Diabetes COVID-19 virus detected (05/19/20) Atrial fibrillation with rapid ventricular response (08/2015) Right bundle branch block (RBBB) Type 2 diabetes mellitus Nonrheumatic aortic (valve) stenosis Essential (primary) hypertension Microcalcification of left breast on mammogram Abnormal mammogram of left breast Sepsis Diverticulitis Encephalopathy DKA (diabetic ketoacidoses) Arthritis Aortic valve calcification Diabetes type 2, uncontrolled Morbid obesity Home Medications ?Medication ?Instructions ?Recorded ?Last Taken ?Type metoprolol succinate 25 mg 25 mg PO DAILY bp 06/01/24 Unknown History tablet,extended release 24 hr metformin 500 mg tablet 500 mg PO BID diabetes 06/02/24 Unknown History apixaban 5 mg tablet (Eliquis) 5 mg PO BID #180 tabs 02/08/25 Unknown Rx blood sugar diagnostic (Accu-Chek 02/26/25 Unknown History Guide test strips) blood-glucose meter (Accu-Chek 02/26/25 Unknown History Guide Me Glucose Meter) calcium 600 mg (as 1 tab PO BID supplement 02/26/25 Unknown History carbonate)-vitamin D3 5 mcg (200 unit) tablet (Calcium 600 + D(3)) glimepiride 4 mg tablet 4 mg PO BID diabetes 02/26/25 Unknown History amiodarone 200 mg tablet 200 mg PO BID #0 tabs 03/03/25 Unknown Rx cephalexin 500 mg capsule 500 mg PO Q6 #0 caps 03/03/25 Unknown Rx furosemide 40 mg tablet (Lasix) 40 mg PO DAILY #1 TAB 03/03/25 Unknown Rx insulin lispro 100 unit/mL See Protocol subcut ACHS #1 mL 03/03/25 Unknown Rx subcutaneous pen (Humalog KwikPen (U-100) Insulin) nystatin 100,000 unit/gram topical 1 applic topical BID #0 grams 03/03/25 Unknown Rx powder pantoprazole 40 mg tablet,delayed 40 mg PO QHS #0 tabs 03/03/25 Unknown Rx release Allergy/AdvReac Type Severity Reaction Status Date / Time atorvastatin (From Lipitor) Allergy Intermediate Rash Verified 03/05/25 10:09 Family History Father COPD (chronic obstructive pulmonary disease) CAD (coronary artery disease) Mother Cancer Breast cancer Surgical History History of right hip replacement (12/02/19) history left breast stereotactic biopsy (02/10/18) History of total right knee replacement (TKR) History of total left knee replacement (01/31/09) History of total hysterectomy History of appendectomy Social History Smoking Status: Never smoker second hand exposure: No alcohol intake: never substance use type: does not use caffeine: No what type of physical activity do you participate in: none frequency: does not exercise seatbelt use: always ROS ROS ED Constitutional Constitutional ED: Denies chills or fever(s) Eyes Eyes: Denies change in vision or diplopia ENT ENT ED: Denies rhinorrhea or sore throat Cardiovascular Cardiovascular: Denies chest pain or palpitations Respiratory/Chest Respiratory/Chest: Denies cough or dyspnea Gastrointestinal Gastrointestinal: Denies abdominal pain, diarrhea, nausea or vomiting Genitourinary Genitourinary ED: Denies dysuria or hematuria Musculoskeletal Musculoskeletal: Denies back pain or neck pain Integumentary Denies abscess or rash Neurologic Neurologic: Reports abnormal speech and weakness; Denies headache(s) or paresthesias Psychiatric Psychiatric: Denies suicidal thoughts EXAM Physical Exam Const Vital Signs: 06/02/25 09:41 06/02/25 09:42 06/02/25 10:03 Temperature 97.6 F L Temperature Source Temporal Pulse Rate 71 73 Respiratory Rate 17 24 H Blood Pressure 117/98 H 108/49 L Blood Pressure Mean 104 68 Pulse Ox 92 96 Oxygen Delivery Method Room Air Room Air Room Air Positive well nourished and well developed General Appearance ED: well developed and NAD HEENT Reports moist mucous membranes normocephalic and atraumatic Eyes PERRL and EOMs intact bilaterally Neck full ROM and supple Resp normal respiratory effort and clear to auscultation bilaterally Cardio regular rate and regular rhythm GI non-tender and non-distended Auscultation: normoactive bowel sounds Palpation: soft Back/Spine no CVA tenderness General Back: other FROM Extremity normal to inspection General Extremety ED: Negative for edema, pulses abnormal or tenderness General Extremity: Negative for edema or pulses abnormal Neuro oriented x3, CN's II-XII intact bilaterally and no sensory deficits noted Neuro Narrative: Difficulty holding both legs up but symmetrically so, no drift with the arms. No sensory loss. Mild right nasolabial fold flattening, mild aphasia, mild dysarthria. No dysmetria. Sensorium / Orientation: awake and alert Skin no rashes or lesions noted and no wounds MDM MDM MDM Narrative Medical decision making narrative: The patient was designated a pre-hospital stroke team evaluation due to symptoms reportedly less than 24 hours in duration, although the last known well is actually unknown. We assume it was last night. Since she was discovered with these symptoms this morning and is anticoagulated on apixaban for a history of AFib, she is not a thrombolytic candidate. I evaluated her in the ambulance bay. According to the paramedics, she showed slight improvement compared to the assisted?s initial assessment. She is now able to move her right arm, which was previously weak, and her speech symptoms have also improved. She was sent directly for a CT and CT angiography of the head and neck. I reviewed all the images and spoke with the radiologist. There is no bleed and no large vessel occlusion (LVO). She does have some plaque in both internal carotid arteries, but nothing appears critical. Therefore, she is not a candidate for thrombectomy evaluation. I then spoke with Stroke Neurology, and they agree with admitting her for further workup. I discussed this with the hospitalist. Her EKG shows sinus rhythm, and she is doing well clinically, although her blood pressure is low. We will obtain additional studies, including a chest x-ray and urinalysis, to evaluate for infections and other potential sources of metabolic encephalopathy that could be contributing to her symptoms, as opposed to an acute vascular event or TIA, which remains in the differential diagnosis. Lab Data Attestation: I reviewed the patient's lab results. Labs: Laboratory Results - last 24 hr 06/02/25 09:54 WBC 6.8 RBC 3.94 L Hgb 11.9 L Hct 35.6 L MCV 90.4 MCH 30.2 MCHC 33.4 RDW Std Deviation 49.0 H RDW Coeff of Yovany 14.7 H Plt Count 144 L MPV 11.7 Immature Gran % (Auto) 0.100 Neut % (Auto) 53.4 Lymph % (Auto) 27.4 Duval % (Auto) 13.6 H Eos % (Auto) 4.2 Baso % (Auto) 1.3 H Absolute Neuts (auto) 3.6 Absolute Lymphs (auto) 1.87 Nucleated RBC % 0 PT 18.9 H INR 1.6 APTT 32.7 Sodium 136 Potassium 3.8 Chloride 100 Carbon Dioxide 25.4 Anion Gap 11 BUN 33 H Creatinine 1.76 H Estim Creat Clear Calc 27.60 L Est GFR (MDRD) Non-Af 30 L BUN/Creatinine Ratio 18.8 Glucose 111 H Calcium 8.8 Troponin T High Sens 22 H D Radiography Diagnostic Testing: Clinical Impression(s) from Imaging Studies Brain CT 06/02/25 09:39 IMPRESSION: CHRONIC CHANGES. NO ACUTE FINDINGS. Stroke Alert: Chronic changes The critical findings in the findings and impression above were relayed directly by me by telephone to Luther Zapata on 06/02/2025 at 9:54 am with readback verification. Reading Location: [id number] Head/Neck CTA 06/02/25 09:45 IMPRESSION: Mild plaque formation at the origin of the both right and left internal carotid arteries causing mild degree of luminal narrowing. Reading Location: [id number] Rhythm Strip Rhythm Strip: Sinus Rhythm Rate: 75 Ectopy: None EKG Initial EKG: Attestation: I personally reviewed and interpreted this EKG as follows: Interpretation: Sinus Rhythm, No Acute Injury Pattern and RBBB Prior EKG tracings: available for review Prior: Unchanged Management Discussion w/another healthcare provider: Hospitalist, Fiberglass Finisher (stroke neuro Dr. acosta) and Radiologist Discharge Plan Dx/Rx/DC Orders Clinical Impression: Aphasia, Right arm weakness, Anticoagulated on apixaban, Debility, Acute renal insufficiency Disposition Disposition: Acute Care Hospital [facility] NIHSS NIHSS 1a. Level of Consciousness: 0 - Alert; keenly responsive 1b. LOC Questions: 0 - Answers BOTH questions correctly 1c. LOC Commands: 0 - Performs BOTH tasks correctly 2. Best Gaze: 0 - Normal 3. Visual: 0 - No visual loss 4. Facial Palsy: 1 - Minor paralysis (flattened nasolabial fold, asymmetry on smiling) 5a. Left Arm: 0 - No drift; arm holds 90 (or 45) degrees for full 10 seconds 5b. Right Arm: 0 - No drift; arm holds 90 (or 45) degrees for full 10 seconds 6a. Left Le - No effort against gravity; leg falls to bed immediately 6b. Right Le - No effort against gravity; leg falls to bed immediately 7. Limb Ataxia: 0 - Absent 8. Sensory: 0 - Normal; no sensory loss 9. Best Language: 1 - [id number] aphasia; 10. Dysarthria: 1 = [id number] dysarthria; 11. Extinction and Inattention: 0 - No abnormality Total: 9 Stroke Questions Stroke Team Activated: Yes IV Thrombolytic Administered: No (due to timing, anticoagulated)
--- NOTE | 2025-06-02 10:56 | RAD_ITS ---
PROCEDURE: RAD/Chest 1 View (Portable)
--- NOTE | 2025-06-02 11:08 | CM.ED ---
Social Work Reason for visit: Stroke Alert SW met with patient and patients , who both confirm that patient will be returning to [facility] when medically ready. Isabel Alvarez, CITY JAILER, INFORMAL WAITER/WAITRESS
--- NOTE | 2025-06-02 11:42 | ED.RN ---
Attempted to call report to Deonte hyde. No answer. Callback number and name left with bill cutter.
[2025-06-02 11:55] LABS: Troponin T High Sens 2 HR 25 ng/L (<=14)
[2025-06-02 11:57] LABS: Mucous, Urine 0 SEEN /hpf (<or=2+); Red Blood Cells-Urine 0 SEEN /hpf (0-5); Squamous Epithelial Cells - UA 0 SEEN /hpf (5-10)
[2025-06-02 12:03] LABS: Color, Urine Yellow (Yellow); Glucose, Dipstick Normal (Normal); Ketone-Dipstick 5 mg/dl (Negative); Leukocyte Esterase-Dipstick 500 /ul (Negative); Nitrite-Dipstick Negative (Negative); Occult Blood-Urine 25 /ul (Negative); Protein-Dipstick 30 mg/dl (Negative); Specific Gravity, Urine 1.005 (1.002-1.030); Urine Bilirubin Dipstick Negative (Negative)
--- NOTE | 2025-06-02 12:37 | PCM.HP.STD ---
HPI - General General Date of Admission: 06/02/25 Date of Service: 06/02/25 Chief Complaint: AMS, R arm weakness HPI Narrative LITO GONZALEZ, is a 74-year-old female with a history of diabetes, GERD, A-fib, permanent pacemaker presented to [facility] ED 06/02/2025 with altered mental status, dysarthria, and right arm weakness. Reportedly she is a residential patient was found this way this a.m. with unknown last baseline. Per family patient usually has weakness in her legs which is why she is in the residential however the other symptoms are new. In the ED temp 97.6, heart rate 71, blood pressure 119/98, pulse ox 92% on room air. White count 6.8, hemoglobin 11.9 with a platelet count of 144. INR 1.6, BUN 33 with creatinine 1.76, glucose 111 troponin of 22. CTA head and neck with no LVO, head CT with chronic changes and no acute findings. UA does not appear infectious hospitalist contacted for admission for stroke rule out. Patient evaluated at bedside, seems slightly confused as to why she is here but did not know she is at [facility] and that the year was 2024 however very poor historian. Notes she was just diagnosed with a UTI due to problems urinating and denies any urinary symptoms at this time but is unsure about weakness. Denies any sensory changes, reported a little bit of nausea with the UTI but has since improved, had been constipated and then took medicine for that and had diarrhea. No abdominal pain. Denies any shortness of breath or chest pain, denies any changes in vision [facility] Medical History Streptococcal bacteremia Septic shock Chronic anticoagulation Thrombocytopenia Morbid obesity with BMI of 45.0-49.9, adult Hyperglycemia due to type 2 diabetes mellitus Adverse drug reaction Metabolic encephalopathy Tachycardia Lactic acidosis Fever Sepsis due to undetermined organism Chronic anticoagulation Acidosis, lactic Encephalopathy Fever Paroxysmal atrial fibrillation Intermittent complete heart block Presence of cardiac pacemaker Obesity Diabetes COVID-19 virus detected (05/19/20) Atrial fibrillation with rapid ventricular response (08/2015) Right bundle branch block (RBBB) Type 2 diabetes mellitus Nonrheumatic aortic (valve) stenosis Essential (primary) hypertension Microcalcification of left breast on mammogram Abnormal mammogram of left breast Sepsis Diverticulitis Encephalopathy DKA (diabetic ketoacidoses) Arthritis Aortic valve calcification Diabetes type 2, uncontrolled Morbid obesity Home Medications ?Medication ?Instructions ?Recorded ?Last Taken ?Type apixaban 5 mg tablet (Eliquis) 5 mg PO BID #180 tabs 02/08/25 Unknown Rx blood sugar diagnostic (Accu-Chek 02/26/25 Unknown History Guide test strips) blood-glucose meter (Accu-Chek 02/26/25 Unknown History Guide Me Glucose Meter) furosemide 40 mg tablet (Lasix) 40 mg PO DAILY #1 TAB 03/03/25 Unknown Rx insulin lispro 100 unit/mL See Protocol subcut ACHS #1 mL 03/03/25 Unknown Rx subcutaneous pen (Humalog KwikPen (U-100) Insulin) nystatin 100,000 unit/gram topical 1 applic topical BID #0 grams 03/03/25 Unknown Rx powder pantoprazole 40 mg tablet,delayed 40 mg PO QHS #0 tabs 03/03/25 Unknown Rx release acetaminophen 325 mg capsule 650 mg PO Q4H PRN fever or pain 06/02/25 Unknown History amiodarone 200 mg tablet 200 mg PO DAILY 06/02/25 Unknown History calcium 500 mg (as 1 tab PO BID 06/02/25 Unknown History carbonate)-vitamin D3 5 mcg (200 unit) tablet (Calcium 500 + D) insulin degludec 100 unit/mL (3 18 unit subcut DAILY 06/02/25 Unknown History mL) subcutaneous pen (Tresiba FlexTouch U-100 insulin) magnesium oxide 400 mg PO BID 06/02/25 Unknown History metformin 1,000 mg tablet 1,000 mg PO BID 06/02/25 Unknown History metoprolol succinate 50 mg 50 mg PO DAILY 06/02/25 Unknown History tablet,extended release 24 hr nitrofurantoin 100 mg PO BID 06/02/25 Unknown History monohydrate/macrocrystals 100 mg capsule (Macrobid) ondansetron 4 mg disintegrating 2 mg PO Q6H PRN PRN nausea and 06/02/25 Unknown History tablet vomiting Allergy/AdvReac Type Severity Reaction Status Date / Time atorvastatin (From Lipitor) Allergy Intermediate Rash Verified 03/05/25 10:09 Family History Father COPD (chronic obstructive pulmonary disease) CAD (coronary artery disease) Mother Cancer Breast cancer Surgical History History of right hip replacement (12/02/19) history left breast stereotactic biopsy (02/10/18) History of total right knee replacement (TKR) History of total left knee replacement (01/31/09) History of total hysterectomy History of appendectomy Social History Smoking Status: Never smoker second hand exposure: No alcohol intake: never substance use type: does not use caffeine: No what type of physical activity do you participate in: none frequency: does not exercise seatbelt use: always ROS ROS Narrative General: Denies fever/chills HENT: Slight headache, little bit of a runny nose, denies sore throat EYES: Denies changes in vision Resp: Denies cough, denies shortness of breath Cardiac: Denies chest pain GI: Denies abdominal pain, has alternated some with constipation and diarrhea, denies nausea/vomiting : Did have some burning on urination that is resolved Extremity: Denies any increase in swelling MSK: Somewhat generally weak Neuro: Denies any numbness/tingling Heme: Denies any bleeding or bruising Skin: Denies rashes Psychiatric: No complaints voiced Vital Signs Vital Signs Vital Signs: 06/02/25 09:41 06/02/25 09:42 06/02/25 10:03 Temperature 97.6 F L Temperature Source Temporal Pulse Rate 71 73 Respiratory Rate 17 24 H Blood Pressure 117/98 H 108/49 L Blood Pressure Mean 104 68 Pulse Ox 92 96 Oxygen Delivery Method Room Air Room Air Room Air 06/02/25 10:51 06/02/25 11:26 06/02/25 11:27 Temperature 97.8 F 97.8 F Temperature Source Oral Pulse Rate 72 78 78 Respiratory Rate 16 16 16 Blood Pressure 104/87 H 104/58 L 104/58 L Blood Pressure Mean 92 73 73 Pulse Ox 98 99 99 Oxygen Delivery Method Room Air Room Air 06/02/25 12:27 Temperature 98.5 F Temperature Source Oral Pulse Rate 72 Respiratory Rate 16 Blood Pressure 108/55 L Blood Pressure Mean 72 Pulse Ox 96 Oxygen Delivery Method Room Air Weight Weight: 92.5 kg Body Mass Index (BMI) 39.8 Physical Exam Narrative General: Seems a little bit tired, does not seem to know why she is here but was able to say she was at [facility] and that was 2024 HEENT: Atraumatic, slight nasolabial fold flattening on right lower part of face Eyes: Anicteric, normal conjunctiva, extraocular movements intact, pupils equal Neck: Supple Respiratory: Clear to auscultation bilaterally, normal respiratory effort Cardiovascular: Regular rate and rhythm GI: Soft, nontender, nondistended Extremities: Has some bilateral nonpitting edema Musculoskeletal: Strength 5 - out of 5 in right upper extremity, 5 out of 5 left upper extremity, 2 out of 5 right lower extremity, 2 out of 5 left lower extremity Neuro: Possibly some mild right lower facial droop, cranial nerves II through XII intact, [id number] with difficulty bilaterally right greater than left Skin: No rashes appreciated Psych: Attempts to be cooperative Results Lab / Micro Data 06/02/25 09:54 06/02/25 09:54 Labs: Laboratory Results - last 24 hr 06/02/25 09:54: WBC 6.8, RBC 3.94 L, Hgb 11.9 L, Hct 35.6 L, MCV 90.4, MCH 30.2, MCHC 33.4, RDW Std Deviation 49.0 H, RDW Coeff of Yovany 14.7 H, Plt Count 144 L, MPV 11.7, Immature Gran % (Auto) 0.100, Neut % (Auto) 53.4, Lymph % (Auto) 27.4, [place] % (Auto) 13.6 H, Eos % (Auto) 4.2, Baso % (Auto) 1.3 H, Absolute Neuts (auto) 3.6, Absolute Lymphs (auto) 1.87, Nucleated RBC % 0, PT 18.9 H, INR 1.6, APTT 32.7, Sodium 136, Potassium 3.8, Chloride 100, Carbon Dioxide 25.4, Anion Gap 11, BUN 33 H, Creatinine 1.76 H, Estim Creat Clear Calc 27.60 L, Est GFR (MDRD) Non-Af 30 L, BUN/Creatinine Ratio 18.8, Glucose 111 H, Calcium 8.8, Troponin T High Sens 22 H D 06/02/25 11:32: Troponin T Hi Sens 2 Hr 25 H 06/02/25 11:50: Urine Color Yellow, Urine Clarity Sl. Cloudy, Urine pH 7.0, Ur Specific [place] 1.005, Urine Protein 30 H, Urine Glucose (UA) Normal, Urine Ketones 5 H, Urine Occult Blood 25 H, Urine Nitrite Negative, Urine Bilirubin Negative, Urine Urobilinogen Normal, Ur Leukocyte Esterase 500 H, Urine RBC 0 SEEN, Urine WBC 10-25 SEEN, Ur Squamous Epith Cells 0 SEEN, Urine Bacteria 0 SEEN, Urine Mucus 0 SEEN Rhythm Strip Rhythm Strip: Sinus Rhythm Rate: 75 Ectopy: None Imaging Radiology Impression Brain CT 06/02/25 09:39 IMPRESSION: CHRONIC CHANGES. NO ACUTE FINDINGS. Stroke Alert: Chronic changes The critical findings in the findings and impression above were relayed directly by me by telephone to Luther Zapata on 06/02/2025 at 9:54 am with readback verification. Reading Location: [id number] Head/Neck CTA 06/02/25 09:45 IMPRESSION: Mild plaque formation at the origin of the both right and left internal carotid arteries causing mild degree of luminal narrowing. Reading Location: [facility] Chest X-Ray 06/02/25 10:56 IMPRESSION: No Acute Findings. Reading Location: [id number] Assessment & Plan Assessment/Plan (1) Right arm weakness: (2) Acute renal insufficiency: PLAN: Plan # Dysarthria and right arm weakness -Admit to tele -CT head w/ chronic changes in ED -CTA head and neck no LVO -MRI ordered -NIH q4hr -asa, listed allergy to atorvastatin -Echo -PT/OT/Speech eval -Teleneuro consult placed -Hold BP medications to allow for permissive hypertension for 24 hours unless SBP greater than 220 or DBP greater than 120 or until stroke is ruled out # Elevated creatinine -BUN 33 with a creatinine of 1.76 up from 20 and 1.43 respectively from 2 months ago but prior to that seem to have a baseline around 0.8 - IV fluids -I's and O's -If no improvement can consider further workup including urine lytes and kidney and bladder ultrasound -Hold home Lasix # Recent UTI -Patient had urinary symptoms and was started on Macrobid 05/30 and is on 100 mg twice daily through 06/04/2025 per residential records -Given creatinine clearance less than 30 will switch to Rocephin #Type 2 diabetes mellitus -Glucose checks and sliding scale insulin -Continue home medications #GERD -Continue PPI #Paroxysmal Atrial Fibrillation -Rate control: Metoprolol, amiodarone -Anticoagulation: Eliquis #Hx av replacement and PPM - Noted, will need to check patient to have MRI given pacemaker, she is unsure #DVT ppx: Patient already on full dose anticoagulation with Eliquis Thuy Mccall MD Charges/Coding Visit Charges Inpatient E&M: 61112 Init Hosp L2
--- NOTE | 2025-06-02 12:48 | ECHOCS_ITS ---
Reason For Study ECHO/Echo Complete W/ Contrast
[2025-06-02] MEDS: 0.9% Normal Saline (1000mL) 1,000 ML 50 ML IV (14:22)
--- NOTE | 2025-06-02 14:46 | CASEMGMT ---
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 Susie Collins DC Planning Asst. Original Note: Discharge Planning H&P sent via [facility] to [facility] with note asking if precert will be needed to return. Awaiting response. Susie Collins DC Planning Asst.
[2025-06-02 15:09] LABS: Troponin T High Sens 4 HR 26 ng/L (<=14)
[2025-06-02] MEDS: APIXABAN 5 MG TABLET PO (21:52)
[2025-06-02] MEDS: Ensure Plus High Protein 120 ML LIQUID PO (21:56)
[2025-06-03] VITALS (8 sets, daily range): BP systolic 105–125; BP diastolic 63–81; PULSE 60–75; RESP 15–18; TEMP 35.8–36.6; O2SAT 94–96; BMI 30.4
[2025-06-03 07:10] LABS: Hematocrit 41.8 % (37-47); Hemoglobin 13.7 g/dL (12.0-15.0); Immature Granulocytes Count 0.040 X10^3/uL (0.0-0.0); Mean Corp Hgb Conc 32.8 g/dL (32-36); Mean Corpuscular Volume 92.1 fL (81-99); Mean Platelet Vol. 12.0 fl (6.2-12.0); NRBC Flagged by Analyzer 0 % (0-5); Platelet Count 172 K/mm3 (150-450); RBC Distribution Width CV 14.9 % (11.6-14.6); RBC Distribution Width SD 50.5 fl (35.1-43.9); Red Blood Count 4.54 M/mm3 (4.2-5.4); White Blood Count 8.3 K/mm3 (4.4-11.0)
[2025-06-03 07:48] LABS: Anion Gap 13 (5-15); BUN 31 mg/dL (4-19); BUN/Creat Ratio 18.6 RATIO (10-20); Calcium,Total 9.5 mg/dL (7.6-11.0); Carbon Dioxide 24.8 mmol/L (21.0-32.0); Chloride 103 mmol/L (98-108); Cholesterol 183 mg/dL (<=200); Estimated Creatinine Clearance 35.35 ml/min (50-250); Glucose 87 mg/dL (70-99); Low Density Lipoprotein Calc. 121 mg/dL; Potassium 3.6 mmol/L (3.3-5.1); Triglycerides 160 mg/dL; Very Low Density Lipoprotein 32 mg/dL (5-40); cholesterol:hdl ratio screen 5.55
[2025-06-03] MEDS: Metoprolol(XL)Succ 50 MG Tablet PO (09:56)
[2025-06-03] MEDS: APIXABAN 5 MG TABLET PO ×2 (09:57→21:23)
[2025-06-03] MEDS: FLU VACCINE HIGH DOSE 25-26(65YR UP) 180 MCG/0.5 ML SYRINGE IM (11:30)
--- NOTE | 2025-06-03 14:41 | CHAPLAIN ---
Type of Pastoral Visit _x__ Initial Visit ___ Follow-up Visit ___ On-call Visit ___ General Patient Visit ___ Spiritual Assessment ___ Family Conference ___ Bereavement ___ Rapid Response ___ Code Blue ___ Other (describe below) Pastoral Care Referral From _x__ Patient ___ Family ___ Nurse ___ Physician ___ Director [employer] ___ Aerial Planting And Cultivation Manager ___ Other (describe below) Sacrament/Intervention _x__ Active listening ___ Anointing ___ Hoahaoism ___ Bereavement ___ Communion _x__ Sheyla exploration ___ ___ Life review _x__ Prayer ___ Reconciliation ___ Sacrament of Sick _x__ Supportive presence ___ Wedding ___ Other (describe below) Pastoral Comments patient speaks of her situation and the tests needed since she may have had a stroke; pt talks mostly about her past yarsani and her new yarsani and the prayers being given for me; pt has a and other family around; pt is waiting for more tests and appears content with no other acknowledged concerns; presence and prayer welcomed and given;
--- NOTE | 2025-06-03 14:47 | CASEMGMT ---
Discharge Planning Updates sent via [facility] with request to submit for precert. Asked if pt can return while waiting. Awaiting response. Susie Collins DC Planning Asst.
--- NOTE | 2025-06-03 15:42 | CASEMGMT ---
Social Work SW met with pt and completed PHQ9 due to possible stroke. Pt with score of 6, stating she has poor appetite and little energy. Pt denies depression at this time. SW educated pt to correlation between stroke and depression. NAIDA Carter
--- NOTE | 2025-06-03 16:34 | CON.PCM.NE_ITS ---
Assessment and Plan: Stroke
--- NOTE | 2025-06-03 16:34 | STROKE.CONS ---
Assessment and Plan: Stroke Assessment/Plan LITO GONZALEZ is a 74 RH female [place] resident with history of Afib on eliquis, GERD, DM, s/p PPM who was found 06/02/25 at her NH in the morning with mental status changes, dysarthria, and right arm weakness. Neurological examination shows confusion, mild right facial droop, right arm weakness, and chronic bilateral leg weakness. NIHSS-10. ASSESSMENT/PLAN: Suspected Acute ischemic stroke 1) Stroke mechanism is likely cardioembolism (Afib). Primary team to clarify if patient able to get MRI brain with PPM 2) Continue eliquis for Afib stroke prevention. Recommend discontinuing Asa (not home med). 3) Recommend completing stroke bundle (HgbA1c, LDL, PT/OT eval, swallow eval, stroke education, etc) Primary team messaged recs on backline. Laura Wray MD HPI Consult Data Date of Consult: 06/03/25 HPI Narrative HPI Narrative: LITO GONZALEZ, is a 74 year old [place] female [place] resident with history of Afib on eliquis, GERD, DM, s/p PPM who was found 06/02/25 at her NH in the morning with mental status changes, dysarthria, and right arm weakness. Patient brought to [place] [facility]. CT brain negative. CTA head/neck negative. She was admitted. TTE EF 60%, LA severely enlarged. ALL: Lipitor. No LDL or Hgba1c. Primary team to clarify if patient can have MRI brain Patient reports she still has dysarthria and confusion. She feels her right arm is weaker as well. At baseline she is wheelchair bound and has chronic bilateral leg weakness. 105/64. [facility] Medical History Streptococcal bacteremia Septic shock Chronic anticoagulation Thrombocytopenia Morbid obesity with BMI of 45.0-49.9, adult Hyperglycemia due to type 2 diabetes mellitus Adverse drug reaction Metabolic encephalopathy Tachycardia Lactic acidosis Fever Sepsis due to undetermined organism Chronic anticoagulation Acidosis, lactic Encephalopathy Fever Paroxysmal atrial fibrillation Intermittent complete heart block Presence of cardiac pacemaker Obesity Diabetes COVID-19 virus detected (05/19/20) Atrial fibrillation with rapid ventricular response (08/2015) Right bundle branch block (RBBB) Type 2 diabetes mellitus Nonrheumatic aortic (valve) stenosis Essential (primary) hypertension Microcalcification of left breast on mammogram Abnormal mammogram of left breast Sepsis Diverticulitis Encephalopathy DKA (diabetic ketoacidoses) Arthritis Aortic valve calcification Diabetes type 2, uncontrolled Morbid obesity Home Medications ?Medication ?Instructions ?Recorded ?Last Taken ?Type apixaban 5 mg tablet (Eliquis) 5 mg PO BID #180 tabs 02/08/25 Unknown Rx blood sugar diagnostic (Accu-Chek 02/26/25 Unknown History Guide test strips) blood-glucose meter (Accu-Chek 02/26/25 Unknown History Guide Me Glucose Meter) furosemide 40 mg tablet (Lasix) 40 mg PO DAILY #1 TAB 03/03/25 Unknown Rx insulin lispro 100 unit/mL See Protocol subcut ACHS #1 mL 03/03/25 Unknown Rx subcutaneous pen (Humalog KwikPen (U-100) Insulin) nystatin 100,000 unit/gram topical 1 applic topical BID #0 grams 03/03/25 Unknown Rx powder pantoprazole 40 mg tablet,delayed 40 mg PO QHS #0 tabs 03/03/25 Unknown Rx release acetaminophen 325 mg capsule 650 mg PO Q4H PRN fever or pain 06/02/25 Unknown History amiodarone 200 mg tablet 200 mg PO DAILY 06/02/25 Unknown History calcium 500 mg (as 1 tab PO BID 06/02/25 Unknown History carbonate)-vitamin D3 5 mcg (200 unit) tablet (Calcium 500 + D) insulin degludec 100 unit/mL (3 18 unit subcut DAILY 06/02/25 Unknown History mL) subcutaneous pen (Tresiba FlexTouch U-100 insulin) magnesium oxide 400 mg PO BID 06/02/25 Unknown History metformin 1,000 mg tablet 1,000 mg PO BID 06/02/25 Unknown History metoprolol succinate 50 mg 50 mg PO DAILY 06/02/25 Unknown History tablet,extended release 24 hr nitrofurantoin 100 mg PO BID 06/02/25 Unknown History monohydrate/macrocrystals 100 mg capsule (Macrobid) ondansetron 4 mg disintegrating 2 mg PO Q6H PRN PRN nausea and 06/02/25 Unknown History tablet vomiting Allergy/AdvReac Type Severity Reaction Status Date / Time atorvastatin (From Lipitor) Allergy Intermediate Rash Verified 03/05/25 10:09 Family History Father COPD (chronic obstructive pulmonary disease) CAD (coronary artery disease) Mother Cancer Breast cancer Surgical History History of right hip replacement (12/02/19) history left breast stereotactic biopsy (02/10/18) History of total right knee replacement (TKR) History of total left knee replacement (01/31/09) History of total hysterectomy History of appendectomy Social History Smoking Status: Never smoker second hand exposure: No alcohol intake: never substance use type: does not use caffeine: No what type of physical activity do you participate in: none frequency: does not exercise seatbelt use: always Vital Signs Vital Signs Vital Signs: 06/02/25 17:44 06/02/25 17:45 06/02/25 21:45 Temperature 97.9 F 97.7 F L Temperature Source Oral Oral Pulse Rate 70 66 Respiratory Rate 15 18 Respiratory Effort Respiratory Depth Respiratory Pattern Blood Pressure 106/76 120/67 Blood Pressure Mean 86 84 Blood Pressure Source Monitor Monitor Blood Pressure Position Semi-Fowlers Semi-Fowlers Blood Pressure Location Right Arm Right Arm Pulse Ox 95 96 98 Oxygen Delivery Method Room Air Room Air Room Air 06/02/25 22:00 06/03/25 01:51 06/03/25 05:35 Temperature 97.6 F L 97.8 F Temperature Source Oral Oral Pulse Rate 66 69 Respiratory Rate 18 18 Respiratory Effort Normal Non-Labored Respiratory Depth Normal Respiratory Pattern Normal Blood Pressure 125/63 H 105/64 Blood Pressure Mean 83 77 Blood Pressure Source Monitor Monitor Blood Pressure Position Semi-Fowlers Semi-Fowlers Blood Pressure Location Right Arm Right Arm Pulse Ox 96 95 Oxygen Delivery Method Room Air Room Air Room Air 06/03/25 06:47 06/03/25 07:20 06/03/25 09:35 Temperature 97.9 F Temperature Source Oral Pulse Rate 60 Respiratory Rate 16 Respiratory Effort Normal Non-Labored Respiratory Depth Normal Respiratory Pattern Normal Blood Pressure 121/69 H Blood Pressure Mean 86 Blood Pressure Source Monitor Blood Pressure Position Semi-Fowlers Blood Pressure Location Right Arm Pulse Ox 95 94 Oxygen Delivery Method Room Air Room Air Room Air 06/03/25 09:56 06/03/25 13:30 Temperature 96.9 F L Temperature Source Temporal Pulse Rate 62 75 Respiratory Rate 16 Respiratory Effort Respiratory Depth Respiratory Pattern Blood Pressure 108/63 Blood Pressure Mean 78 Blood Pressure Source Monitor Blood Pressure Position Semi-Fowlers Blood Pressure Location Right Forearm Pulse Ox 94 Oxygen Delivery Method Room Air Weight Weight: 93.7 kg Body Mass Index (BMI) 30.4 Physical Exam Neuro Neuro Narrative: Neurological?examination: General: The patient appears comfortable in no acute distress. Mental Status: ?The patient?s mental status was alert but confused, reported her age correctly but the month as April. ?Language was intact. ?Cranial nerves: ?No visual complaints, and extra-ocular motion was intact. Subtle right nasolabial fold flattening. Tongue was midline with normal movement. ?There was mild dysarthria. Motor: Mild right arm weakness with pronator drift. Bilateral legs are unable to anti-gravity (baseline per patient), she is able to wiggle toes. Sensation: Intact light touch bilaterally, no extinction. ?Coordination: ?Bilateral finger to nose was normal. ?There was no dysmetria. Gait: ?deferred Lab / Micro Data 06/03/25 06:37 06/03/25 06:37 Labs: Laboratory Results - last 24 hr 06/02/25 17:04: POC Glucose 97 06/02/25 21:54: POC Glucose 74 06/03/25 06:18: POC Glucose 82 06/03/25 06:37: WBC 8.3, RBC 4.54, Hgb 13.7, Hct 41.8, MCV 92.1, MCH 30.2, MCHC 32.8, RDW Std Deviation 50.5 H, RDW Coeff of Yovany 14.9 H, Plt Count 172, MPV 12.0, Immature Gran % (Auto) 0.500, Neut % (Auto) 48.2, Lymph % (Auto) 32.9, [place] % (Auto) 12.0 H, Eos % (Auto) 5.2 H, Baso % (Auto) 1.2 H, Absolute Neuts (auto) 4.0, Absolute Lymphs (auto) 2.72, Nucleated RBC % 0, Sodium 140, Potassium 3.6, Chloride 103, Carbon Dioxide 24.8, Anion Gap 13, BUN 31 H, Creatinine 1.65 H, Estim Creat Clear Calc 35.35 L, Est GFR (MDRD) Non-Af 32 L, BUN/Creatinine Ratio 18.6, Glucose 87, Calcium 9.5, Triglycerides 160, Cholesterol 183, LDL Cholesterol, Calc 121, VLDL Cholesterol 32, HDL Cholesterol 33 L, Cholesterol/HDL Ratio 5.55 06/03/25 11:15: POC Glucose 197 H Rhythm Strip Rhythm Strip: Sinus Rhythm Rate: 75 Ectopy: None Active Medications Active Medications Active Medications: Current Medications Generic Name Dose Route Start Last Admin Trade Name Freq PRN Reason Stop Dose Admin Acetaminophen 650 mg 06/02/25 13:17 Acetaminophen 325 Mg Tablet PO Q6H PRN PRN Pain 1-10 Or Fever >100.7 Albuterol Sulfate 2.5 mg 06/02/25 13:17 Albuterol 2.5 Mg/3 Ml Vial.Neb. INHALATION Q2H PRN PRN SOB &/OR WHEEZING Amiodarone HCl 200 mg 06/03/25 10:00 06/03/25 09:56 Amiodarone 200 Mg Tablet PO 200 mg DAILY JESSE Administration Apixaban 5 mg 06/02/25 22:00 06/03/25 09:57 Apixaban 5 Mg Tablet PO 5 mg BID JESSE Administration Aspirin 81 mg 06/03/25 08:00 06/03/25 09:56 Aspirin 81 Mg Tab.Chew PO 81 mg BREAKFAST JESSE Administration Glucagon 1 mg 06/02/25 13:17 Glucagon 1 Mg/Ml Syringe IM X1 PRN HYPOGLYCEMIA Protocol Glucagon 1 mg 06/02/25 13:17 Glucagon 1 Mg/Ml Syringe IM X1 PRN Hypoglycemia Protocol Dextrose 250 mls @ 0 mls/hr 06/02/25 13:17 Dextrose 10%-Water IV .Q0M PRN HYPOGLYCEMIA Protocol As Directed Dextrose 250 mls @ 0 mls/hr 06/02/25 13:17 Dextrose 10%-Water IV .Q0M PRN HYPOGLYCEMIA Protocol As Directed Ceftriaxone Sodium 1 gm in 50 mls @ 100 mls/hr 06/02/25 13:17 06/03/25 11:55 Rocephin IV 06/05/25 13:18 Infused Q24 JESSE Infusion Sodium Chloride 250 mls @ 15 mls/hr 06/02/25 13:37 IV .[id number] PRN Saline Flush Sodium Chloride 250 mls @ 15 mls/hr 06/02/25 13:37 IV .[id number] PRN Additional IVPB Infusion Sodium Chloride 250 mls @ 15 mls/hr 06/03/25 14:33 IV .[id number] PRN Saline Flush Sodium Chloride 250 mls @ 15 mls/hr 06/03/25 14:33 IV .[id number] PRN Additional IVPB Infusion Insulin Human Lispro 0 unit 06/02/25 16:00 06/03/25 12:17 Insulin Lispro 100 Unit/Ml Insuln.Pen SC 2 units ACHS JESSE Administration Protocol Iopamidol 0 ml 06/02/25 09:45 06/02/25 14:28 Contrast Allergy Safety Check IV Not Given X1 JESSE Melatonin 10 mg 06/02/25 13:17 Melatonin 10 Mg Tablet PO QHS PRN PRN INSOMNIA Metoprolol Succinate 50 mg 06/03/25 10:00 06/03/25 09:56 Metoprolol(Xl)Succ 50 Mg Tablet PO 50 mg DAILY JESSE Administration Protocol Nutritional Formula (Lactose Free) 120 ml 06/02/25 18:00 06/03/25 15:28 Ensure Plus High Protein 120 Ml Liquid PO Not Given 4X/DAY JESSE Ondansetron HCl 4 mg 06/02/25 13:17 Ondansetron 4 Mg/2 Ml Vial IV Q4H PRN PRN NAUSEA/VOMITING Pantoprazole Sodium 40 mg 06/02/25 22:00 06/02/25 21:52 Pantoprazole Sodium 40 Mg Tablet PO 40 mg QHS JESSE Administration Senna/Docusate Sodium 2 tablet 06/02/25 13:17 Senna/Docusate Sodium 1 Tablet PO BID PRN PRN Constipation Sodium Chloride 10 - 40 ml 06/02/25 13:37 0.9% Saline Lock 10 Ml Syringe IV UD PRN SALINE FLUSH Sodium Chloride 10 - 40 ml 06/03/25 14:33 0.9% Saline Lock 10 Ml Syringe IV UD PRN SALINE FLUSH NIHSS NIHSS Nursing Documentation NIHSS Nursing Documentation: NIHSS: Ischemic Stroke/TIA Start: 06/02/25 13:17 Text: For PCU Patients: NIH and Neuro Check every 4 Status: Active hours, PRN and with change in RN caregiver. Freq: [id number] Protocol: Activity Type Activity Date Activity User E-sign Co-sign Detail Recorded Client Recorded Date Recorded By Document 06/03/25 13:30 ML [id number] 06/03/25 14:39 ML 06/03/25 13:30 NIH Stroke Scale [NIHSS] A score of 0 is normal or asymptomatic . Total possible score is 42. Inpatient: RN or Physician to activate a stroke alert for onset of new stroke symptoms or with NIHSS increase >/= 3 points. Following change in neurological status, NIHSS will be performed per physician order or more frequently PRN. -1a. Level of Consciousness 0 - Alert; keenly responsive -1b. LOC Questions 0 - Answers BOTH questions correctly -1c. LOC Commands 0 - Performs BOTH tasks correctly -2. Best Gaze 0 - Normal -3. Visual 0 - No visual loss -4. Facial Palsy 1 - Minor paralysis ( flattened nasolabial fold , asymmetry on smiling) -5a. Left Arm 0 - No drift; arm holds 90 ( or 45) degrees for full 10 seconds -5b. Right Arm 1 - Drift; arm drifts downward but doesn?t hit the bed -6a. Left Leg 3 - No effort against gravity ; leg falls to bed immediately -6b. Right Leg 3 - No effort against gravity ; leg falls to bed immediately -7. Limb Ataxia 0 - Absent -8. Sensory 0 - Normal; no sensory loss -9. Best Language 0 - No aphasia; normal -10. Dysarthria 1 = Mild-to- moderate dysarthria; -11. Extinction and Inattention 0 - No abnormality -Total 9 Query Text:A score of 0 is normal or asymptomatic. Total possible score is 42 . ED: Notify Physician for NIHSS increase by > / = 3 points. Inpatient: RN or Physician to activate a stroke alert for NIHSS increase of > / = 3 points. Coma Scale [Assess] -Eye Opening Spontaneous -Motor Obeys Commands -Verbal Oriented [Total] -Coma Scale Total 15 NIHSS 1a. Level of Consciousness: 0 - Alert; keenly responsive 1b. LOC Questions: 1 - Answers ONE question correctly 1c. LOC Commands: 0 - Performs BOTH tasks correctly 2. Best Gaze: 0 - Normal 3. Visual: 0 - No visual loss 4. Facial Palsy: 1 - Minor paralysis (flattened nasolabial fold, asymmetry on smiling) 5a. Left Arm: 0 - No drift; arm holds 90 (or 45) degrees for full 10 seconds 5b. Right Arm: 1 - Drift; arm drifts downward but doesn?t hit the bed 6a. Left Le - No effort against gravity; leg falls to bed immediately 6b. Right Le - No effort against gravity; leg falls to bed immediately 7. Limb Ataxia: 0 - Absent 8. Sensory: 0 - Normal; no sensory loss 9. Best Language: 0 - No aphasia; normal 10. Dysarthria: 1 = Uaxh-ke-hmbmimfn dysarthria; 11. Extinction and Inattention: 0 - No abnormality Total: 10
[2025-06-03] MEDS: Ensure Plus High Protein 120 ML LIQUID PO (16:47)
--- NOTE | 2025-06-03 16:50 | PN.HOSP_ITS ---
Reason for Visit
--- NOTE | 2025-06-03 16:50 | PCM.PN.HOSP ---
Reason for Visit Chief Complaint: AMS, R arm weakness Subjective Subjective More alert today, acknowledges arms are weak right greater than left, also notices that her words are harder to get out, both lower extremities are weak but she is unable to say if this is her baseline, does not verbalize any other new or acute complaints, denies any abdominal pain Objective Data Objective Data Vital Signs: Vital Signs Temp Pulse Resp BP Pulse Ox O2 Del Method 96.9 F L 75 16 108/63 94 Room Air 06/03/25 13:30 06/03/25 13:30 06/03/25 13:30 06/03/25 13:30 06/03/25 13:30 06/03/25 13:30 Oxygen Delivery Method Room Air Weight: 93.7 kg Body Mass Index (BMI) 30.4 Intake & Output: Intake and Output for Last 24 Hours 06/01/25 06/02/25 06/03/25 23:59 23:59 23:59 Intake Total 250 / 250 796.67 / 796.67 Output Total 350 / 350 350 / 350 Balance -100 / -100 446.67 / 446.67 Lab / Micro Data 06/03/25 06:37 06/03/25 06:37 Labs: Laboratory Results - last 24 hr 06/02/25 17:04: POC Glucose 97 06/02/25 21:54: POC Glucose 74 06/03/25 06:18: POC Glucose 82 06/03/25 06:37: WBC 8.3, RBC 4.54, Hgb 13.7, Hct 41.8, MCV 92.1, MCH 30.2, MCHC 32.8, RDW Std Deviation 50.5 H, RDW Coeff of Yovany 14.9 H, Plt Count 172, MPV 12.0, Immature Gran % (Auto) 0.500, Neut % (Auto) 48.2, Lymph % (Auto) 32.9, [place] % (Auto) 12.0 H, Eos % (Auto) 5.2 H, Baso % (Auto) 1.2 H, Absolute Neuts (auto) 4.0, Absolute Lymphs (auto) 2.72, Nucleated RBC % 0, Sodium 140, Potassium 3.6, Chloride 103, Carbon Dioxide 24.8, Anion Gap 13, BUN 31 H, Creatinine 1.65 H, Estim Creat Clear Calc 35.35 L, Est GFR (MDRD) Non-Af 32 L, BUN/Creatinine Ratio 18.6, Glucose 87, Calcium 9.5, Triglycerides 160, Cholesterol 183, LDL Cholesterol, Calc 121, VLDL Cholesterol 32, HDL Cholesterol 33 L, Cholesterol/HDL Ratio 5.55 06/03/25 11:15: POC Glucose 197 H Rhythm Strip Rhythm Strip: Sinus Rhythm Rate: 75 Ectopy: None Physical Exam Narrative General: Alert, better able to answer questions though does have mild dysarthria HEENT: Atraumatic Eyes: Anicteric, normal conjunctiva, extraocular movements intact, pupils equal Neck: Supple Respiratory: Normal respiratory effort Cardiovascular: Regular rate GI: Soft, nontender, nondistended Extremities: No edema Musculoskeletal: Strength 4+ out of 5 in right upper extremity, 5 - out of 5 left upper extremity, 2+ out of 5 right lower extremity, 2+ out of 5 left lower extremity Neuro: Appears to have some right facial droop with dysarthria otherwise, cranial nerves II through XII intact, [id number] with difficulty bilaterally but more prominent with right hand Skin: No rashes appreciated Psych: Cooperative Assessment & Plan Assessment/Plan (1) Right arm weakness: (2) Acute renal insufficiency: PLAN: Plan # Dysarthria and right arm weakness -Admit to tele -CT head w/ chronic changes in ED -CTA head and neck no LVO -MRI ordered -NIH q4hr -asa, listed allergy to atorvastatin -Echo -PT/OT/Speech eval -Teleneuro consult placed -Hold BP medications to allow for permissive hypertension for 24 hours unless SBP greater than 220 or DBP greater than 120 or until stroke is ruled out -06/03: MRI to be done 06/04, MRI rep was not available to come in until that date and time and needs to be present for the MRI, neuro evaluated and suspect that this is cardioembolic in nature, continue anticoagulation. Discussed with neurology # Elevated creatinine -BUN 33 with a creatinine of 1.76 up from 20 and 1.43 respectively from 2 months ago but prior to that seem to have a baseline around 0.8 - IV fluids -I's and O's -If no improvement can consider further workup including urine lytes and kidney and bladder ultrasound -Hold home Lasix -06/03: Slightly better today with a creatinine of 1.65 but does not seem to be back to baseline, continue to hold home Lasix and encourage p.o. intake # Recent UTI -Patient had urinary symptoms and was started on Macrobid 05/30 and is on 100 mg twice daily through 06/04/2025 per skilled nursing records -Given creatinine clearance less than 30 will switch to Rocephin date continue Rocephin and will keep same stop date of 06/05 #Type 2 diabetes mellitus -Glucose checks and sliding scale insulin -Continue home medications -06/03: Glucose this a.m. 197, resume long-acting insulin with slightly lower dose to avoid hypoglycemia, initially held long-acting insulin due to glucose in the 80s and 90s however given increase feel it is reasonable to resume at lower dose #GERD -Continue PPI -06/03: No current reflux complaints, encourage p.o., continue home PPI #Paroxysmal Atrial Fibrillation -Rate control: Metoprolol, amiodarone -Anticoagulation: Eliquis -06/03: Continue to monitor on telemetry continue home medications including Eliquis, stroke suspected to be cardioembolic #Hx av replacement and PPM - Noted, will need to check patient to have MRI given pacemaker, she is unsure -06/03: Rep to be here tomorrow for MRI #DVT ppx: Patient already on full dose anticoagulation with Karunaquis Thuy Mccall MD Charges/Coding Visit Charges Inpatient E&M: 05671 Subs Hosp L2 NIHSS NIHSS Nursing Documentation NIHSS Nursing Documentation: NIHSS: Ischemic Stroke/TIA Start: 06/02/25 13:17 Text: For PCU Patients: NIH and Neuro Check every 4 Status: Active hours, PRN and with change in RN caregiver. Freq: [id number] Protocol: Activity Type Activity Date Activity User E-sign Co-sign Detail Recorded Client Recorded Date Recorded By Document 06/03/25 13:30 ML [id number] 06/03/25 14:39 ML 06/03/25 13:30 NIH Stroke Scale [NIHSS] A score of 0 is normal or asymptomatic . Total possible score is 42. Inpatient: RN or Physician to activate a stroke alert for onset of new stroke symptoms or with NIHSS increase >/= 3 points. Following change in neurological status, NIHSS will be performed per physician order or more frequently PRN. -1a. Level of Consciousness 0 - Alert; keenly responsive -1b. LOC Questions 0 - Answers BOTH questions correctly -1c. LOC Commands 0 - Performs BOTH tasks correctly -2. Best Gaze 0 - Normal -3. Visual 0 - No visual loss -4. Facial Palsy 1 - Minor paralysis ( flattened nasolabial fold , asymmetry on smiling) -5a. Left Arm 0 - No drift; arm holds 90 ( or 45) degrees for full 10 seconds -5b. Right Arm 1 - Drift; arm drifts downward but doesn?t hit the bed -6a. Left Leg 3 - No effort against gravity ; leg falls to bed immediately -6b. Right Leg 3 - No effort against gravity ; leg falls to bed immediately -7. Limb Ataxia 0 - Absent -8. Sensory 0 - Normal; no sensory loss -9. Best Language 0 - No aphasia; normal -10. Dysarthria 1 = Mild-to- moderate dysarthria; -11. Extinction and Inattention 0 - No abnormality -Total 9 Query Text:A score of 0 is normal or asymptomatic. Total possible score is 42 . ED: Notify Physician for NIHSS increase by > / = 3 points. Inpatient: RN or Physician to activate a stroke alert for NIHSS increase of > / = 3 points. Coma Scale [Assess] -Eye Opening Spontaneous -Motor Obeys Commands -Verbal Oriented [Total] -Coma Scale Total 15
[2025-06-04] VITALS (12 sets, daily range): BP systolic 105–127; BP diastolic 49–74; PULSE 70–80; RESP 15–18; TEMP 35.8–36.6; O2SAT 93–97; BMI 31.1
[2025-06-04 05:13] LABS: Hematocrit 38.2 % (37-47); Hemoglobin 13.0 g/dL (12.0-15.0); Immature Granulocytes Count 0.020 X10^3/uL (0.0-0.0); Mean Corp Hgb Conc 34.0 g/dL (32-36); Mean Corpuscular Volume 90.1 fL (81-99); Mean Platelet Vol. 12.1 fl (6.2-12.0); NRBC Flagged by Analyzer 0 % (0-5); Platelet Count 164 K/mm3 (150-450); RBC Distribution Width CV 15.3 % (11.6-14.6); RBC Distribution Width SD 50.0 fl (35.1-43.9); Red Blood Count 4.24 M/mm3 (4.2-5.4); White Blood Count 7.5 K/mm3 (4.4-11.0)
[2025-06-04 05:37] LABS: Anion Gap 11 (5-15); BUN 26 mg/dL (4-19); BUN/Creat Ratio 16.4 RATIO (10-20); Calcium,Total 9.1 mg/dL (7.6-11.0); Carbon Dioxide 24.3 mmol/L (21.0-32.0); Chloride 103 mmol/L (98-108); Estimated Creatinine Clearance 37.26 ml/min (50-250); Glucose 163 mg/dL (70-99); Potassium 3.6 mmol/L (3.3-5.1)
[2025-06-04] MEDS: Metoprolol(XL)Succ 50 MG Tablet PO (09:29)
[2025-06-04] MEDS: Ensure Plus High Protein 120 ML LIQUID PO ×3 (09:31→21:10)
[2025-06-04] MEDS: APIXABAN 5 MG TABLET PO ×2 (09:31→21:11)
[2025-06-04] MEDS: Insulin Glargine-YFGN 100 UNIT/ML Pen SC ×2 (09:52→11:59)
--- NOTE | 2025-06-04 10:03 | CASEMGMT ---
Discharge Planning Updates sent to with note that pt will likely return over the weekend. Precert remains pending. *Pt can return without precert. Juancarlos Dyson completed and sent to [facility]. Susie Collins DC Planning Asst.
--- NOTE | 2025-06-04 11:42 | PN.HOSP_ITS ---
Reason for Visit
--- NOTE | 2025-06-04 11:42 | PCM.PN.HOSP ---
Reason for Visit Chief Complaint: AMS, R arm weakness Subjective Subjective Still having right upper extremity weakness and incoordination, feeling about the same as yesterday with no new acute complaints, denies any abdominal pain, still some weakness in her legs which is not acute Objective Data Objective Data Vital Signs: Vital Signs Temp Pulse Resp BP Pulse Ox O2 Del Method 97.9 F 71 16 116/68 97 Room Air 06/04/25 09:00 06/04/25 09:29 06/04/25 09:00 06/04/25 09:00 06/04/25 09:58 06/04/25 09:58 Oxygen Delivery Method Room Air Weight: 95.5 kg Body Mass Index (BMI) 31.1 Intake & Output: Intake and Output for Last 24 Hours 06/02/25 06/03/25 06/04/25 23:59 23:59 23:59 Intake Total 250 / 250 1036.67 / 1036.67 50 / 50 Output Total 350 / 350 750 / 750 200 / 200 Balance -100 / -100 286.67 / 286.67 -150 / -150 Lab / Micro Data 06/04/25 04:52 06/04/25 04:52 Labs: Laboratory Results - last 24 hr 06/03/25 11:15: POC Glucose 197 H 06/03/25 16:38: POC Glucose 166 H 06/03/25 21:19: POC Glucose 178 H 06/04/25 04:52: WBC 7.5, RBC 4.24, Hgb 13.0, Hct 38.2, MCV 90.1, MCH 30.7, MCHC 34.0, RDW Std Deviation 50.0 H, RDW Coeff of Yovany 15.3 H, Plt Count 164, MPV 12.1 H, Immature Gran % (Auto) 0.300, Neut % (Auto) 49.5, Lymph % (Auto) 30.2, [place] % (Auto) 13.0 H, Eos % (Auto) 5.7 H, Baso % (Auto) 1.3 H, Absolute Neuts (auto) 3.7, Absolute Lymphs (auto) 2.28, Nucleated RBC % 0, Sodium 138, Potassium 3.6, Chloride 103, Carbon Dioxide 24.3, Anion Gap 11, BUN 26 H, Creatinine 1.58 H, Estim Creat Clear Calc 37.26 L, Est GFR (MDRD) Non-Af 34 L, BUN/Creatinine Ratio 16.4, Glucose 163 H, Calcium 9.1 06/04/25 06:16: POC Glucose 152 H Rhythm Strip Rhythm Strip: Sinus Rhythm Rate: 75 Ectopy: None Physical Exam Narrative General: Alert, better able to answer questions though does have mild dysarthria HEENT: Atraumatic Eyes: Anicteric, normal conjunctiva, extraocular movements intact, pupils equal Neck: Supple Respiratory: Normal respiratory effort Cardiovascular: Regular rate GI: Soft, nontender, nondistended Extremities: No edema Musculoskeletal: Strength 4+ out of 5 in right upper extremity, 5 - out of 5 left upper extremity, remains weak in bilateral lower extremities Neuro: Appears to have some right facial droop with dysarthria, similar to yesterday if not slightly improved, does still have some uncoordination especially with right hand Skin: No rashes appreciated Psych: Cooperative Assessment & Plan Assessment/Plan (1) Right arm weakness: (2) Acute renal insufficiency: PLAN: Plan # Dysarthria and right arm weakness -Admit to tele -CT head w/ chronic changes in ED -CTA head and neck no LVO -MRI ordered -NIH q4hr -asa, listed allergy to atorvastatin -Echo -PT/OT/Speech eval -Teleneuro consult placed -Hold BP medications to allow for permissive hypertension for 24 hours unless SBP greater than 220 or DBP greater than 120 or until stroke is ruled out -06/03: MRI to be done 06/04, MRI rep was not available to come in until that date and time and needs to be present for the MRI, neuro evaluated and suspect that this is cardioembolic in nature, continue anticoagulation. Discussed with neurology -06/04: MRI today to complete stroke workup, patient had A1c in February with a hemoglobin A1c of 8.6, lipid panel obtained this admission, echo with EF of 60% and indeterminant diastolic dysfunction with bioprosthetic aortic valve appearing to function normally. Appreciate neurology recommendations, as per discussion with neurology we will continue Eliquis and finish stroke workup with MRI today # Elevated creatinine -BUN 33 with a creatinine of 1.76 up from 20 and 1.43 respectively from 2 months ago but prior to that seem to have a baseline around 0.8 - IV fluids -I's and O's -If no improvement can consider further workup including urine lytes and kidney and bladder ultrasound -Hold home Lasix -06/03: Slightly better today with a creatinine of 1.65 but does not seem to be back to baseline, continue to hold home Lasix and encourage p.o. intake -06/04: Slowly trending back down, Lasix still held and fluid status being monitored, encourage p.o. intake # Recent UTI -Patient had urinary symptoms and was started on Macrobid 05/30 and is on 100 mg twice daily through 06/04/2025 per group home records -Given creatinine clearance less than 30 will switch to Rocephin date continue Rocephin and will keep same stop date of 06/05 -06/04: Continuing patient on antibiotics, stop date entered #Type 2 diabetes mellitus -Glucose checks and sliding scale insulin -Continue home medications -06/03: Glucose this a.m. 197, resume long-acting insulin with slightly lower dose to avoid hypoglycemia, initially held long-acting insulin due to glucose in the 80s and 90s however given increase feel it is reasonable to resume at lower dose -06/04: Glucose increasing as patient's p.o. intake increasing as 1 would expect, will give another 5 units of long-acting insulin, continue sliding scale, and increase to 10 units long-acting daily and continue to uptitrate as tolerated Chronic medical problems and/or problems not being actively addressed during today's encounter: #GERD -Continue PPI #Paroxysmal Atrial Fibrillation -Rate control: Metoprolol, amiodarone -Anticoagulation: Eliquis #Hx av replacement and PPM - Noted #DVT ppx: Patient already on full dose anticoagulation with Eliquis Thuy Mccall MD Time spent in the patient's overall evaluation,decision-making process, review of diagnostic data, adjustment of management, discussion with other providers, nursing nursing and ancillary staff involved in patient's care documentation, 36 Minutes Charges/Coding Visit Charges Inpatient E&M: 12629 Subs Hosp L2 NIHSS NIHSS Nursing Documentation NIHSS Nursing Documentation: NIHSS: Ischemic Stroke/TIA Start: 06/02/25 13:17 Text: For PCU Patients: NIH and Neuro Check every 4 Status: Active hours, PRN and with change in RN caregiver. Freq: [id number] Protocol: Activity Type Activity Date Activity User E-sign Co-sign Detail Recorded Client Recorded Date Recorded By Document 06/04/25 09:00 ML [id number] 06/04/25 10:50 ML 06/04/25 09:00 NIH Stroke Scale [NIHSS] A score of 0 is normal or asymptomatic . Total possible score is 42. Inpatient: RN or Physician to activate a stroke alert for onset of new stroke symptoms or with NIHSS increase >/= 3 points. Following change in neurological status, NIHSS will be performed per physician order or more frequently PRN. -1a. Level of Consciousness 0 - Alert; keenly responsive -1b. LOC Questions 0 - Answers BOTH questions correctly -1c. LOC Commands 0 - Performs BOTH tasks correctly -2. Best Gaze 0 - Normal -3. Visual 0 - No visual loss -4. Facial Palsy 0 - Normal symmetrical movements -5a. Left Arm 0 - No drift; arm holds 90 ( or 45) degrees for full 10 seconds -5b. Right Arm 1 - Drift; arm drifts downward but doesn?t hit the bed -6a. Left Leg 3 - No effort against gravity ; leg falls to bed immediately -6b. Right Leg 3 - No effort against gravity ; leg falls to bed immediately -7. Limb Ataxia 0 - Absent -8. Sensory 0 - Normal; no sensory loss -9. Best Language 0 - No aphasia; normal -10. Dysarthria 1 = Mild-to- moderate dysarthria; -11. Extinction and Inattention 0 - No abnormality -Total 8 Query Text:A score of 0 is normal or asymptomatic. Total possible score is 42 . ED: Notify Physician for NIHSS increase by > / = 3 points. Inpatient: RN or Physician to activate a stroke alert for NIHSS increase of > / = 3 points. Coma Scale [Assess] -Eye Opening Spontaneous -Motor Obeys Commands -Verbal Oriented [Total] -Coma Scale Total 15
--- NOTE | 2025-06-04 12:48 | MRI_ITS ---
PROCEDURE: MRI/Brain without Contrast
--- NOTE | 2025-06-04 15:43 | CASEMGMT ---
Social Work Patient will DC back to [facility], when medically ready. ?We did ask for precert to be started. Patient can return before pre-cert received. Transport form started, green sheet in the chart.? ALLY Lopez
[2025-06-05 01:00] VITALS: BP 133/70; PULSE 74; RESP 18; TEMP 36.1; O2SAT 95
[2025-06-05 04:36] LABS: Hematocrit 38.1 % (37-47); Hemoglobin 12.7 g/dL (12.0-15.0); Immature Granulocytes Count 0.030 X10^3/uL (0.0-0.0); Mean Corp Hgb Conc 33.3 g/dL (32-36); Mean Corpuscular Volume 91.4 fL (81-99); Mean Platelet Vol. 12.2 fl (6.2-12.0); NRBC Flagged by Analyzer 0 % (0-5); Platelet Count 160 K/mm3 (150-450); RBC Distribution Width CV 15.1 % (11.6-14.6); RBC Distribution Width SD 51.2 fl (35.1-43.9); Red Blood Count 4.17 M/mm3 (4.2-5.4); White Blood Count 7.2 K/mm3 (4.4-11.0)
[2025-06-05 05:04] VITALS: BP 126/62; PULSE 77; RESP 18; TEMP 36.1; O2SAT 97
[2025-06-05 05:09] LABS: Anion Gap 11 (5-15); BUN 22 mg/dL (4-19); BUN/Creat Ratio 14.9 RATIO (10-20); Calcium,Total 9.1 mg/dL (7.6-11.0); Carbon Dioxide 24.6 mmol/L (21.0-32.0); Chloride 103 mmol/L (98-108); Estimated Creatinine Clearance 40.60 ml/min (50-250); Glucose 207 mg/dL (70-99); Potassium 3.5 mmol/L (3.3-5.1)
[2025-06-05 05:52] VITALS: BMI 30.6
[2025-06-05 07:15] VITALS: BP 123/72; PULSE 74; RESP 14; TEMP 36.7; O2SAT 98
[2025-06-05] MEDS: APIXABAN 5 MG TABLET PO (08:48)
[2025-06-05] MEDS: Ensure Plus High Protein 120 ML LIQUID PO ×2 (08:48→14:12)
[2025-06-05 08:49] VITALS: PULSE 77
[2025-06-05] MEDS: Metoprolol(XL)Succ 50 MG Tablet PO (08:49)
[2025-06-05] MEDS: Insulin Glargine-YFGN 100 UNIT/ML Pen 10 UNIT SC (08:49)
[2025-06-05 10:38] VITALS: BMI 30.6
--- NOTE | 2025-06-05 11:01 | PCM.TXEXTCAR ---
Diet Diet Order/Speech Therapy: INPATIENT Hospital Diet / Speech Therapy Order(s) 06/02/25 13:17 Diet: Cardiac - Heart Healthy Food consistency:: Easy to Chew Liquid Consistency:: Regular/Thin Speech Therapy Comments: Distant sup, assistance feeding as needed, meds whole in puree Routine Orders/Code Status Suppository Type: Dulcolax 10mg Suppository Frequency: Daily PRN Routine Lab Work: BMP (2-3 days) Code Status: Full Code DC O2, CPAP, BIPAP needs Home O2 Discharge instructions: No Therapies Physical Therapy: Eval and Treat Occupational Therapy: Eval and Treat Problem/Diagnosis (1) Acute CVA (cerebrovascular accident): Status: Acute Code(s): I63.9 - Cerebral infarction, unspecified (2) Right arm weakness: Status: Acute Code(s): R29.898 - Other symptoms and signs involving the musculoskeletal system (3) Acute renal insufficiency: Status: Acute Code(s): N28.9 - Disorder of kidney and ureter, unspecified Plan # Acute ischemia in the right periventricular white matter and jamil consistent with acute ischemic stroke # LOBO versus CKD # UTI diagnosed prior to admission?antibiotics finished #Type 2 diabetes mellitus #GERD #Paroxysmal Atrial Fibrillation #Hx av replacement and PPM LITO GONZALEZ, is a 74-year-old female with a history of diabetes, GERD, A-fib, permanent pacemaker presented to [facility] ED 06/02/2025 with altered mental status, dysarthria, and right arm weakness. She was [facility] and started on Macrobid, she came into the ED with an unclear last known well but given the right arm weakness and confusion hospitalist contacted for CVA rule out. CTA head and neck and CT head in the ED with no acute process. MRI however did demonstrate acute ischemia in the right periventricular white matter and in the jamil with extensive chronic changes. Patient seen by neurology who reviewed her case and the MRI, they recommended continuing her Eliquis and continuing her other risk factor modification and to follow up with neurology on an outpatient basis. On day of discharge patient slightly improved, still with right arm weakness and ataxia, facial droop slightly improving, dysarthria slightly improving, denies any abdominal pain, no new or acute complaints on day of discharge. Of note on admission patient had creatinine that seem to be increased from baseline, this is subsequently downtrended every day, unclear if this is patient's new baseline or still slightly elevated so recommend repeating in 2 to 3 days especially given resumption of patient's home medications. Discharge instructions as follows: DISCHARGE INSTRUCTIONS PLEASE READ *Please take this with you to your next doctors appointment* - You have been continued on your Eliquis for your stroke -Please follow-up with neurology upon discharge, please call Dr. Elias's office upon discharge to schedule an appointment or establish with a neurologist of your choice if you do not already follow with one. -Your long-acting insulin was slightly decreased, will likely be able to go back up to your home dose once you are diet returns to normal but will defer this to her physician assuming care -You have finished your antibiotics for the urinary tract infection diagnosed prior to admission so your nitrofurantoin has been discontinued -Would recommend lab work (BMP) to check your function in 2 to 3 days -Weigh yourself every day. A sudden weight gain can mean you are retaining fluid. Weigh yourself at the same time of day and in the same kind of clothes. Ideally, weigh yourself first thing in the morning after you empty your bladder, but before you eat breakfast. -Please call your physician if your weight goes up by more than 2 pounds in 1 day or 5 pounds in 1 week. This can be a sign that you are retaining more fluid than you should be. -Please call your primary care provider's office upon discharge to schedule a hospital follow up within 1 week. -For any concerning signs or symptoms please call 911 or proceed to the nearest emergency department Allergies/Procedures Done in Hospital Allergies atorvastatin (From Lipitor) Allergy (Intermediate, Verified 03/05/25 10:09) Rash Type of Care/Length of Stay Estimated LOS: Convalescent Care Less Than 30 days Type of Care Needed: Skilled Rehab Potential: Poor Prognosis: Poor Additional Orders/Day of Discharge Day of Discharge: 06/05/25 Dietary and Speech Recommendations Dietitian Recommendations/Changes: Recommend Cardiac diet to manage medical conditions. Discharge Plan Admission Admit Date/Time: 06/02/25 12:37 Primary Reason for Your Visit: Confusion, RUE weakness, acute stroke Attending Provider: Thuy Mccall Primary Care Provider: Mindy Morrow Instructions Patient Instructions: AFib Preventing Stroke Additional Instructions / Restrictions: DISCHARGE INSTRUCTIONS PLEASE READ *Please take this with you to your next doctors appointment* - You have been continued on your Eliquis for your stroke -Please follow-up with neurology upon discharge, please call Dr. Elias's office upon discharge to schedule an appointment or establish with a neurologist of your choice. -Your long-acting insulin was slightly decreased, will likely be able to go back up to your home dose once you are diet returns to normal but will defer this to her physician assuming care -You have finished your antibiotics for the urinary tract infection diagnosed prior to admission so your nitrofurantoin has been discontinued -Would recommend lab work (BMP) to check your function in 2 to 3 days -Weigh yourself every day. A sudden weight gain can mean you are retaining fluid. Weigh yourself at the same time of day and in the same kind of clothes. Ideally, weigh yourself first thing in the morning after you empty your bladder, but before you eat breakfast. -Please call your physician if your weight goes up by more than 2 pounds in 1 day or 5 pounds in 1 week. This can be a sign that you are retaining more fluid than you should be. -Please call your primary care provider's office upon discharge to schedule a hospital follow up within 1 week. -For any concerning signs or symptoms please call 911 or proceed to the nearest emergency department Discharge Orders/Prescriptions Prescriptions: Continued Eliquis 5 mg tablet 5 mg PO BID Qty: 180 3RF magnesium oxide 400 mg magnesium capsule 400 mg PO BID calcium carbonate-vitamin D3 [Calcium 500 + D] 500 mg-5 mcg (200 unit) tablet 1 tab PO BID metformin 1,000 mg tablet 1,000 mg PO BID metoprolol succinate 50 mg tablet extended release 24 hr 50 mg PO DAILY acetaminophen 325 mg capsule 650 mg PO Q4H PRN (Reason: fever or pain) ondansetron 4 mg tablet,disintegrating 2 mg PO Q6H PRN PRN (Reason: nausea and vomiting) amiodarone 200 mg Tablet 200 mg PO DAILY Rx Instructions: Continue 200 mg twice a day for 7 days, then reduce the dose of Cordarone to 200 mg daily thereafter (DME) Accu-Chek Guide test strips Strip MISCELLANEOUS (DME) blood-glucose meter [Accu-Chek Guide Me Glucose Mtr] Mis MISCELLANEOUS Patient Comments: [NO ORIGINAL SIG] insulin lispro [Humalog KwikPen Insulin] 100 unit/mL Insulin Pen See Protocol subcut ACHS Qty: 1 0RF Protocol: 3. Sliding Scale Insulin Med Dosing Condition: 150-189 mg/dl = 1 unit Condition: 190-229 mg/dl = 2 units Condition: 230-269 mg/dl = 3 units Condition: 270-309 mg/dl = 4 units Condition: 310-349 mg/dl = 5 units Condition: 350-399 mg/dl = 6 units Condition: 400-449 mg/dl = 7 units Condition: Greater than 449 call physician Protocol Text: Suggested for: - Patients on Total Daily Insulin Dose of 37-55 units - Obese, infected, or steroid patients MEDIUM DOSING ALGORITHIM pantoprazole 40 mg Tablet,Delayed Release (Dr/Ec) 40 mg PO QHS Qty: 0 0RF nystatin 100,000 unit/gram Powder 1 applic topical BID Qty: 0 0RF Protocol: *Topical Application Instructions APPLICATION INSTRUCTIONS: apply to groin furosemide [Lasix] 40 mg tablet 40 mg PO DAILY Qty: 1 0RF Changed insulin degludec [Tresiba FlexTouch U-100] 100 unit/mL (3 mL) insulin pen 13 unit subcut DAILY 30 Days Qty: 3.9 0RF Discontinued nitrofurantoin monohyd/m-cryst [Macrobid] 100 mg capsule 100 mg PO BID Rx Instructions: must administer with a meal/food Referrals / Follow Up: Mindy Morrow MD [Primary Care Provider, Geriatrics] Sergio Elias MD [Non-Staff -Ordering Privileges, Neurology] - Within 1 Month Disposition Disposition (needs filled in before D/C Order can be placed): Longterm Facility
--- NOTE | 2025-06-05 11:14 | PCM.DC.SUM ---
Providers Date of Admission: 06/02/25 Date of Discharge: 06/05/25 Primary Care Physician: Dr. Mindy Morrow MD Consultations 06/02/25 13:17 Consult: Tele-Neurology Routine Consulting Provider: [facility] Reason for Consult: Acute Ischemic Stroke/TIA EMERGENT Consult: No MD Notified: Yes Date Notified: 06/02/25 Time Notified: 13:30 Method of Notification: Answering Service Nursing Unit Staff Notify [facility] of Tele-Neurology Consult: Yes Reason For Visit: CVA R/O AND WORSENED KIDNEY DYSFUNCTION Diagnosis Discharge Diagnosis (1) Acute CVA (cerebrovascular accident): Status: Acute Code(s): I63.9 - Cerebral infarction, unspecified (2) Right arm weakness: Status: Acute Code(s): R29.898 - Other symptoms and signs involving the musculoskeletal system (3) Acute renal insufficiency: Status: Acute Code(s): N28.9 - Disorder of kidney and ureter, unspecified Plan # Acute ischemia in the right periventricular white matter and jamil consistent with acute ischemic stroke # LOBO versus CKD # UTI diagnosed prior to admission?antibiotics finished #Type 2 diabetes mellitus #GERD #Paroxysmal Atrial Fibrillation #Hx av replacement and PPM Medications at Discharge Home Medications apixaban 5 mg tablet (Eliquis) 5 mg PO BID #180 tabs 02/08/25 blood sugar diagnostic (Accu-Chek Guide test strips) 02/26/25 blood-glucose meter (Accu-Chek Guide Me Glucose Meter) 02/26/25 furosemide 40 mg tablet (Lasix) 40 mg PO DAILY #1 TAB 03/03/25 insulin lispro 100 unit/mL subcutaneous pen (Humalog KwikPen (U-100) Insulin) See Protocol subcut ACHS #1 mL 03/03/25 nystatin 100,000 unit/gram topical powder 1 applic topical BID #0 grams 03/03/25 pantoprazole 40 mg tablet,delayed release 40 mg PO QHS #0 tabs 03/03/25 acetaminophen 325 mg capsule 650 mg PO Q4H PRN fever or pain 06/02/25 amiodarone 200 mg tablet 200 mg PO DAILY 06/02/25 calcium 500 mg (as carbonate)-vitamin D3 5 mcg (200 unit) tablet (Calcium 500 + D) 1 tab PO BID 06/02/25 magnesium oxide 400 mg PO BID 06/02/25 metformin 1,000 mg tablet 1,000 mg PO BID 06/02/25 metoprolol succinate 50 mg tablet,extended release 24 hr 50 mg PO DAILY 06/02/25 ondansetron 4 mg disintegrating tablet 2 mg PO Q6H PRN PRN nausea and vomiting 06/02/25 insulin degludec 100 unit/mL (3 mL) subcutaneous pen (Tresiba FlexTouch U-100 insulin) 13 unit (0.13 mL) subcut DAILY 30 days #3.9 mL 06/05/25 Hospital Course Procedures Transthoracic echo Summary of Care Provided Minutes Spent on Discharge: 32 Hospital Course: LITO GONZALEZ, is a 74-year-old female with a history of diabetes, GERD, A-fib, permanent pacemaker presented to [facility] ED 06/02/2025 with altered mental status, dysarthria, and right arm weakness. She was recently diagnosed with a UTI per detention records and started on Macrobid, she came into the ED with an unclear last known well but given the right arm weakness and confusion hospitalist contacted for CVA rule out. CTA head and neck and CT head in the ED with no acute process. MRI however did demonstrate acute ischemia in the right periventricular white matter and in the jamil with extensive chronic changes. Patient seen by neurology who reviewed her case and the MRI, they recommended continuing her Eliquis and continuing her other risk factor modification and to follow up with neurology on an outpatient basis. On day of discharge patient slightly improved, still with right arm weakness and ataxia, facial droop slightly improving, dysarthria slightly improving, denies any abdominal pain, no new or acute complaints on day of discharge. Of note on admission patient had creatinine that seem to be increased from baseline, this is subsequently downtrended every day, unclear if this is patient's new baseline or still slightly elevated so recommend repeating in 2 to 3 days especially given resumption of patient's home medications. Discharge instructions as follows: DISCHARGE INSTRUCTIONS PLEASE READ *Please take this with you to your next doctors appointment* - You have been continued on your Eliquis for your stroke -Please follow-up with neurology upon discharge, please call Dr. Elias's office upon discharge to schedule an appointment or establish with a neurologist of your choice if you do not already follow with one. -Your long-acting insulin was slightly decreased, will likely be able to go back up to your home dose once you are diet returns to normal but will defer this to her physician assuming care -You have finished your antibiotics for the urinary tract infection diagnosed prior to admission so your nitrofurantoin has been discontinued -Would recommend lab work (BMP) to check your function in 2 to 3 days -Weigh yourself every day. A sudden weight gain can mean you are retaining fluid. Weigh yourself at the same time of day and in the same kind of clothes. Ideally, weigh yourself first thing in the morning after you empty your bladder, but before you eat breakfast. -Please call your physician if your weight goes up by more than 2 pounds in 1 day or 5 pounds in 1 week. This can be a sign that you are retaining more fluid than you should be. -Please call your primary care provider's office upon discharge to schedule a hospital follow up within 1 week. -For any concerning signs or symptoms please call 911 or proceed to the nearest emergency department Physical Exam Narrative General: Alert, better able to answer questions though does have mild dysarthria HEENT: Atraumatic Eyes: Anicteric, normal conjunctiva, extraocular movements intact, pupils equal Neck: Supple Respiratory: Normal respiratory effort Cardiovascular: Regular rate GI: Soft, nontender, nondistended Extremities: No edema Musculoskeletal: Strength 4+ out of 5 in right upper extremity, 5 - out of 5 left upper extremity, remains weak in bilateral lower extremities Neuro: Appears to have some right facial droop with dysarthria slowly improving, does still have some uncoordination especially with right hand Skin: No rashes appreciated Psych: Cooperative Weight / BMI Weight Weight: 94 kg Body Mass Index (BMI) 30.6 ABG / Lab / Microbiology Data 06/05/25 04:12 06/05/25 04:12 Laboratory: Laboratory Results - last 24 hr 06/04/25 11:23: POC Glucose 221 H 06/04/25 15:58: POC Glucose 225 H 06/04/25 21:05: POC Glucose 211 H 06/05/25 04:12: WBC 7.2, RBC 4.17 L, Hgb 12.7, Hct 38.1, MCV 91.4, MCH 30.5, MCHC 33.3, RDW Std Deviation 51.2 H, RDW Coeff of Yovany 15.1 H, Plt Count 160, MPV 12.2 H, Immature Gran % (Auto) 0.400, Neut % (Auto) 47.2, Lymph % (Auto) 31.3, O'Brien % (Auto) 13.2 H, Eos % (Auto) 6.7 H, Baso % (Auto) 1.2 H, Absolute Neuts (auto) 3.4, Absolute Lymphs (auto) 2.26, Nucleated RBC % 0, Sodium 139, Potassium 3.5, Chloride 103, Carbon Dioxide 24.6, Anion Gap 11, BUN 22 H, Creatinine 1.45 H, Estim Creat Clear Calc 40.60 L, Est GFR (MDRD) Non-Af 37 L, BUN/Creatinine Ratio 14.9, Glucose 207 H, Calcium 9.1 06/05/25 06:20: POC Glucose 184 H Radiography Diagnostic Testing: Radiology Impression Brain MRI 06/04/25 12:48 IMPRESSION: 1. Acute ischemia right periventricular white matter, and in the jamil. 2. Extensive chronic microvascular ischemic changes, moderate volume loss. Red Alert: Ischemia as above The critical findings in the findings and impression above were relayed directly by me by telephone to Thuy Mccall on 06/04/2025 at 3:28 pm with readback verification. Reading Location: [id number] Instructions DC O2, CPAP, BIPAP Needs Home O2 Discharge instructions: No Meaningful Use Info Meaningful Use Meaningful Use Diagnoses (Choose all that apply): None applicable Discharge Plan Admission Admit Date/Time: 06/02/25 12:37 Primary Reason for Your Visit: Confusion, RUE weakness, acute stroke Attending Provider: Thuy Mccall Primary Care Provider: Mindy Morrow Instructions Patient Instructions: AFib Preventing Stroke Additional Instructions / Restrictions: DISCHARGE INSTRUCTIONS PLEASE READ *Please take this with you to your next doctors appointment* - You have been continued on your Eliquis for your stroke -Please follow-up with neurology upon discharge, please call Dr. Elias's office upon discharge to schedule an appointment or establish with a neurologist of your choice. -Your long-acting insulin was slightly decreased, will likely be able to go back up to your home dose once you are diet returns to normal but will defer this to her physician assuming care -You have finished your antibiotics for the urinary tract infection diagnosed prior to admission so your nitrofurantoin has been discontinued -Would recommend lab work (BMP) to check your function in 2 to 3 days -Weigh yourself every day. A sudden weight gain can mean you are retaining fluid. Weigh yourself at the same time of day and in the same kind of clothes. Ideally, weigh yourself first thing in the morning after you empty your bladder, but before you eat breakfast. -Please call your physician if your weight goes up by more than 2 pounds in 1 day or 5 pounds in 1 week. This can be a sign that you are retaining more fluid than you should be. -Please call your primary care provider's office upon discharge to schedule a hospital follow up within 1 week. -For any concerning signs or symptoms please call 911 or proceed to the nearest emergency department Discharge Orders/Prescriptions Prescriptions: Continued Eliquis 5 mg tablet 5 mg PO BID Qty: 180 3RF magnesium oxide 400 mg magnesium capsule 400 mg PO BID calcium carbonate-vitamin D3 [Calcium 500 + D] 500 mg-5 mcg (200 unit) tablet 1 tab PO BID metformin 1,000 mg tablet 1,000 mg PO BID metoprolol succinate 50 mg tablet extended release 24 hr 50 mg PO DAILY acetaminophen 325 mg capsule 650 mg PO Q4H PRN (Reason: fever or pain) ondansetron 4 mg tablet,disintegrating 2 mg PO Q6H PRN PRN (Reason: nausea and vomiting) amiodarone 200 mg Tablet 200 mg PO DAILY Rx Instructions: Continue 200 mg twice a day for 7 days, then reduce the dose of Cordarone to 200 mg daily thereafter (DME) Accu-Chek Guide test strips Strip MISCELLANEOUS (DME) blood-glucose meter [Accu-Chek Guide Me Glucose Mtr] Misc MISCELLANEOUS Patient Comments: [NO ORIGINAL SIG] insulin lispro [Humalog KwikPen Insulin] 100 unit/mL Insulin Pen See Protocol subcut ACHS Qty: 1 0RF Protocol: 3. Sliding Scale Insulin Med Dosing Condition: 150-189 mg/dl = 1 unit Condition: 190-229 mg/dl = 2 units Condition: 230-269 mg/dl = 3 units Condition: 270-309 mg/dl = 4 units Condition: 310-349 mg/dl = 5 units Condition: 350-399 mg/dl = 6 units Condition: 400-449 mg/dl = 7 units Condition: Greater than 449 call physician Protocol Text: Suggested for: - Patients on Total Daily Insulin Dose of 37-55 units - Obese, infected, or steroid patients MEDIUM DOSING ALGORITHIM pantoprazole 40 mg Tablet,Delayed Release (Dr/Ec) 40 mg PO QHS Qty: 0 0RF nystatin 100,000 unit/gram Powder 1 applic topical BID Qty: 0 0RF Protocol: *Topical Application Instructions APPLICATION INSTRUCTIONS: apply to groin furosemide [Lasix] 40 mg tablet 40 mg PO DAILY Qty: 1 0RF Changed insulin degludec [Tresiba FlexTouch U-100] 100 unit/mL (3 mL) insulin pen 13 unit subcut DAILY 30 Days Qty: 3.9 0RF Discontinued nitrofurantoin monohyd/m-cryst [Macrobid] 100 mg capsule 100 mg PO BID Rx Instructions: must administer with a meal/food Referrals / Follow Up: Mindy Morrow MD [Primary Care Provider, Geriatrics] Sergio Elias MD [Non-Staff -Ordering Privileges, Neurology] - Within 1 Month Disposition Disposition (needs filled in before D/C Order can be placed): Nursing Home Facility Charges/Coding Visit Charges Inpatient E&M: 86386 Disch Hosp >30min
[2025-06-05 11:15] VITALS: BP 121/65; PULSE 81; RESP 15; TEMP 36.6; O2SAT 99
--- NOTE | 2025-06-05 12:21 | PCA ---
THIS US CALLED [facility] AT 1212, AND TALKED TO NURSE PATTIE, TOLD HER ESTIMATED TRANSPORT TIME BUT DID REQUEST [employer] FOR THE 1600 ETA, WILL CALL BACK IF THEY TIME IS CHANGED. ALSO GOT DIFFERENT FAX NUMBER TO SEND HER INFORMATION ALONG WITH SENDING WITH TRANSPORT TEAM. [phone], FAX SENT
--- NOTE | 2025-06-05 15:09 | NURSING ---
REport called to Deonte Edmonds rn
[2025-06-05 15:46] VITALS: BP 120/58; PULSE 83; RESP 15; TEMP 36.6; O2SAT 99
[2025-06-05 15:53] VITALS: BMI 30.6
== END 2025-06-05 16:10 | disposition skilled nursing facility (03) | DRG 65 ==
LOC: ED 11:16 → PCU 11:24
PROVIDERS: Admitting Provider Internal Medicine; Emergency Provider Emergency Medicine; PCP Internal Medicine; Visit Provider Internal Medicine
DX: I63.9 Cerebral infarction, unspecified (principal); N39.0 Urinary tract infection, site not specified; R47.01 Aphasia; E11.9 Type 2 diabetes mellitus without complications; G83.21 Monoplegia of upper limb affecting right dominant side; I48.0 Paroxysmal atrial fibrillation; I10 Essential (primary) hypertension; I65.23 Occlusion and stenosis of bilateral carotid arteries; Z95.2 Presence of prosthetic heart valve; I35.0 Nonrheumatic aortic (valve) stenosis; Z79.4 Long term (current) use of insulin; I45.10 Unspecified right bundle-branch block; K21.9 Gastro-esophageal reflux disease without esophagitis; N28.9 Disorder of kidney and ureter, unspecified; R53.81 Other malaise; R29.710 NIHSS score 10; R29.810 Facial weakness; R47.1 Dysarthria and anarthria; Z23 Encounter for immunization; Z79.01 Long term (current) use of 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; Z87.19 Personal history of other diseases of the digestive system; Z79.84 Long term (current) use of oral hypoglycemic drugs; Z95.0 Presence of cardiac pacemaker; Z88.8 Allergy status to other drugs, medicaments and biological substances; Z79.899 Other long term (current) drug therapy
CPT/HCPCS: 36415; 70450; 70496; 70498; 70551; 71045; 80048; 80061; 81001; 82962; 84484; 85025; 85610; 85730; 87040; 92523; 92526; 92610; 93005; 93306; 94762; 97162; 97166; 97530; 97535; 97802; 99285; Q9957; Q9967; A4216; C8929

== ENCOUNTER 2025-06-22 07:38 | Emergency (ER) | payer MEDICARE, SELFPAY ==
[2025-06-22 07:39] VITALS: BP 119/72; PULSE 77; RESP 18; TEMP 37.1; O2SAT 95; BMI 31.1
--- NOTE | 2025-06-22 08:13 | CT_ITS ---
PROCEDURE: ABDOMEN/PELVIS W IV CONT ONLY 06/22/2025 REASON FOR EXAM: ABDOMINAL PAIN TECHNIQUE: Procedure Code: [id number] Modality: CT Procedure: ABDOMEN/PELVIS W IV CONT ONLY Coronal and Sagittal reconstruction series were provided. CONTRAST: Isovue 370 VOLUME: 75 mL One or more dose reduction techniques were used (e.g., Automated exposure control, adjustment of the mA and/or kV according to patient size, use of iterative reconstruction technique. RADIATION DOSE SUMMARY: CTDlvol: 30 mGy DLP: 1335 mGycm COMPARISON: February 25, 2025 FINDINGS: Lung bases: Mitral valve calcification. TAVR. Coronary artery disease. Pacemaker. Liver: Focal fat at the interlobar fissure. Non cirrhotic. Gallbladder: Tiny calculi dependently within the gallbladder lumen. No gallbladder distention or wall thickening. No biliary ductal dilation. Spleen: Splenic granulomas. Pancreas: Normal Adrenals: Normal Kidneys: No collecting system dilation, calculus or mass. Bladder: Normal. Reproductive Organs: Hysterectomy Bowel: Stomach is normal. Small bowel is normal. Colon is unremarkable. There is some incontinence of stool. Modest amount of formed stool in the rectal vault. Appendix: Appendectomy Lymph nodes: None appear enlarged Vasculature: Moderate atherosclerotic plaque without aneurysm. Peritoneum / Retroperitoneum: No free air, free fluid or mass. Bones: Bone demineralization. Right hip prosthesis. Interspinous arthropathy lumbar spine. Grade 1 anterolisthesis L4 on L5. lower lumbar facet hypertrophy. CT/Abdomen/Pelvis W IV Cont ONLY IMPRESSION: 1. Small gallstones. No findings of cholecystitis at this time. 2. Splenic granulomas 3. Incontinence of stool. 4. No acute abnormality 5. Mitral valve calcification. TAVR. Coronary artery disease. Reading Location: [id number]
--- NOTE | 2025-06-22 08:14 | EDS_ITS ---
HPI HPI - GI History of Present Illness Chief Complaint: Abd Pain Detail of Chief Complaint: Abdominal pain Informant: patient Narrative Narrative: Patient presents with abdominal pain that started 3 to 4 days ago. Decreased bowel movements over the last week. States she had a small bowel movement yesterday. She has had no appetite. She presents from shelter. She has had intermittent nausea and vomiting for a couple days after she tries to eat. She is on Eliquis for history of A-fib. Has had prior appendectomy as well as hysterectomy. [facility] Medical History Streptococcal bacteremia Septic shock Chronic anticoagulation Thrombocytopenia Morbid obesity with BMI of 45.0-49.9, adult Hyperglycemia due to type 2 diabetes mellitus Adverse drug reaction Metabolic encephalopathy Tachycardia Lactic acidosis Fever Sepsis due to undetermined organism Chronic anticoagulation Acidosis, lactic Encephalopathy Fever Paroxysmal atrial fibrillation Intermittent complete heart block Presence of cardiac pacemaker Obesity Diabetes COVID-19 virus detected (05/19/20) Atrial fibrillation with rapid ventricular response (08/2015) Right bundle branch block (RBBB) Type 2 diabetes mellitus Nonrheumatic aortic (valve) stenosis Essential (primary) hypertension Microcalcification of left breast on mammogram Abnormal mammogram of left breast Sepsis Diverticulitis Encephalopathy DKA (diabetic ketoacidoses) Arthritis Aortic valve calcification Diabetes type 2, uncontrolled Morbid obesity Home Medications ?Medication ?Instructions ?Recorded ?Last Taken ?Type apixaban 5 mg tablet (Eliquis) 5 mg PO BID #180 tabs 0 02/08/25 Unknown Rx blood sugar diagnostic (Accu-Chek 02/26/25 Unknown Hi story Guide test strips) blood-glucose meter (Accu-Chek 02/26/25 Unknown Histo ry Guide Ok Glucose Meter) furosemide 40 mg tablet (Lasix) 40 mg PO DAILY #1 TAB 03/03/25 Unknown Rx insulin lispro 100 unit/mL See Protocol subcut ACHS #1 mL 03/03/25 Unknown Rx subcutaneous pen (Humalog KwikPen (U-100) Insulin) nystatin 100,000 unit/gram topical 1 applic topical BI D #0 grams 03/03/25 Unknown Rx powder pantoprazole 40 mg tablet,delayed 40 mg PO QHS #0 tabs 03/03/25 Unknown Rx release acetaminophen 325 mg capsule 650 mg PO Q4H PRN fever o r pain 06/02/25 Unknown History amiodarone 200 mg tablet 200 mg PO DAILY 06/02/25 Unk nown History calcium 500 mg (as 1 tab PO BID 06/02/25 Unknow n History carbonate)-vitamin D3 5 mcg (200 unit) tablet (Calcium 500 + D) magnesium oxide 400 mg PO BID 06/02/25 Unkno wn History metformin 1,000 mg tablet 1,000 mg PO BID 06/02/25 Unk nown History metoprolol succinate 50 mg 50 mg PO DAILY 06/02/25 Unk nown History tablet,extended release 24 hr ondansetron 4 mg disintegrating 2 mg PO Q6H PRN PRN na usea and 06/02/25 Unknown History tablet vomiting insulin degludec 100 unit/mL (3 13 unit (0.13 mL) subc ut DAILY 30 06/05/25 Unknown Rx mL) subcutaneous pen (Tresiba days #3.9 mL FlexTouch U-100 insulin) Allergy/AdvReac Type Severity Reaction Status Date / Time atorvastatin (From Lipitor) Allergy Intermediate Rash Verified 06/22/25 07:44 Family History Father COPD (chronic obstructive pulmonary disease) CAD (coronary artery disease) Mother Cancer Breast cancer Surgical History History of right hip replacement (12/02/19) history left breast stereotactic biopsy (02/10/18) History of total right knee replacement (TKR) History of total left knee replacement (01/31/09) History of total hysterectomy History of appendectomy Social History Smoking Status: Never smoker second hand exposure: No alcohol intake: never substance use type: does not use caffeine: No what type of physical activity do you participate in: none frequency: does not exercise seatbelt use: always ROS ROS ED Review of Systems ROS Unobtainable: other Constitutional Constitutional ED: Reports lethargy; Denies chills, fever(s), sweats or weight loss Eyes Eyes: Denies blurry vision, change in vision or diplopia ENT ENT ED: Denies rhinorrhea or sore throat Cardiovascular Cardiovascular: Denies chest pain, orthopnea or racing heartbeat Respiratory/Chest Respiratory/Chest: Denies cough, dyspnea, dyspnea on exertion, orthopnea or sputum Gastrointestinal Gastrointestinal: Reports abdominal pain, nausea and vomiting; Denies diarrhea Genitourinary Genitourinary ED: Denies dysuria, hematuria or urinary frequency Musculoskeletal Musculoskeletal: Denies arthralgias, back pain, myalgias or neck pain Integumentary Denies abscess, Abrasions or rash Neurologic Neurologic: Denies headache(s) or weakness Psychiatric Psychiatric: Denies anxiety, depression or suicidal thoughts Endocrine Endocrinology: Denies polydipsia, polyphagia or polyuria Hematologic/Lymphatic Hematologic/Lymphatic: Denies easy bleeding, easy bruising or lymphadenopathy Allergic/Immunologic Allergic/Immunologic ED: Denies mouth swelling, tongue swelling or urticaria EXAM Physical Exam Const Vital Signs: 06/22/25 07:39 06/22/25 09:46 06/22/25 11:07 Temperature 98.7 F Temperature Source Oral Pulse Rate 77 87 80 Respiratory Rate 18 Blood Pressure 119/72 115/58 L 147/83 H Blood Pressure Mean 87 77 104 Pulse Ox 95 96 94 Oxygen Delivery Method Room Air Room Air Room Air Positive well nourished and well developed General Appearance ED: well developed and NAD HEENT Reports TM's clear and moist mucous membranes normocephalic and atraumatic; Negative for trauma or tenderness Tympanic Membrane ED: Yes TM's clear Eyes PERRL and EOMs intact bilaterally General Eye ED: Negative for pale conjunctiva or scleral icterus Neck no lymphadenopathy, supple and no JVD General: Negative for tenderness Chest Wall inspection of chest normal and palpation of chest normal Chest: Negative for tenderness Resp normal respiratory effort and clear to auscultation bilaterally Effort and Inspection: Negative for respiratory distress or pain with movement Auscultation: Negative for rhonchi, wheezes or diminished lung sounds Cardio regular rate, regular rhythm, S1 normal heart sound, S2 normal heart sound and no murmurs Peripheral Pulses: pulses 2+ throughout GI normal to inspection, nondistended, normoactive bowel sounds, soft to palpation, non-distended and no masses GI Narrative: Tenderness palpation over the suprapubic region as well as the left lower quadrant with guarding. No rebound or rigidity. No peritoneal signs. Back/Spine no CVA tenderness and no thoracic nor lumbar tenderness Extremity normal to inspection General Extremety ED: Negative for edema General Extremity: Negative for edema Neuro oriented x3, CN's II-XII intact bilaterally, no sensory deficits noted and gait normal Sensorium / Orientation: awake, alert, oriented to person, oriented to place and oriented to time Motor Exam: strength 5/5 throughout and strength abnormal Psych mental status grossly normal Skin no rashes or lesions noted and no wounds MDM MDM MDM Narrative Medical decision making narrative: Patient presents with abdominal pain as well as nausea and vomiting. Decreased bowel movements and decreased p.o. intake. Will obtain an IV and she does not anything for pain initially at rest does not have much discomfort. Concern for diverticulitis versus UTI or kidney stone or bowel obstruction versus perforation. Patient was given a liter Mustain fluid bolus and Zofran. Will obtain labs and CT scan imaging. CT scan unremarkable. CBC with differential showed normal white count of 8.6 with hemoglobin 12 and platelet count of 175. Chemistries unremarkable. Glucose elevated to 60 and BUN 34 with creatinine 1.82. Lactate slightly elevated 2.0. CT scan of the abdomen pelvis showed no acute process. I did do a rectal exam on patient and she had a lot of soft stool within the rectal vault but no impaction noted. She was given a soapsuds enema. She had some results with that. Urinalysis showed no signs of infection. At this point should be discharged back to the shelter. Lab Data Attestation: I reviewed the patient's lab results. Labs: Laboratory Results - last 24 hr 06/22/25 06/22/25 06/22/25 08:00 08:00 08:25 WBC Cancelled Corrected WBC Cancelled RBC Cancelled Hgb Cancelled Hct Cancelled MCV Cancelled MCH Cancelled MCHC Cancelled RDW Std Deviation Cancelled RDW Coeff of Yov[place] Cancelled Plt Count Cancelled MPV Cancelled Immature Gran % (Auto) Cancelled Neut % (Auto) Cancelled Lymph % (Auto) Cancelled [place] % (Auto) Cancelled Eos % (Auto) Cancelled Baso % (Auto) Cancelled Absolute Neuts (auto) Cancelled Absolute Lymphs (auto) Cancelled Total Counted Cancelled Neutrophils % (Manual) Cancelled Band Neutrophils % Cancelled Lymphocytes % (Manual) Cancelled Monocytes % (Manual) Cancelled Eosinophils % (Manual) Cancelled Basophils % (Manual) Cancelled Metamyelocytes % Cancelled Myelocytes % Cancelled Promyelocytes % Cancelled Blast Cells % Cancelled Plasma Cell % (Manual) Cancelled Other Cells % Cancelled Nucleated RBC % Cancelled Nucleated RBCs/100 WBC Cancelled Differential Comment Cancelled Diff Path Review Cancelled Hypersegmented Neuts Cancelled Atypical Lymphocytes Cancelled Reactive Lymphocytes Cancelled Smudge Cells Cancelled Toxic Granulation Cancelled Toxic Vacuolation Cancelled Dohle Bodies Cancelled Radha Rods Cancelled Platelet Estimate Cancelled Plt Morphology Comment Cancelled RBC Morphology Cancelled Cancelled Polychromasia Cancelled Hypochromasia Cancelled Basophilic Stippling Cancelled Anisocytosis Cancelled Microcytosis Cancelled Macrocytosis Cancelled Spherocytes Cancelled Sickle Cells Cancelled Target Cells Cancelled Tear Drop Cells Cancelled Ovalocytes Cancelled Stomatocytes Cancelled [place] Bodies Cancelled [place] Cells Cancelled Bite Cells Cancelled Crenated Cell Cancelled Acanthocytes (Spur) Cancelled Rouleaux Cancelled Schistocytes Cancelled Sodium 137 Potassium 3.7 Chloride 95 L Carbon Dioxide 26.1 Anion Gap 16 H BUN 34 H Creatinine 1.82 H Estim Creat Clear Calc 31.84 L Est GFR (MDRD) Non-Af 28 L BUN/Creatinine Ratio 18.5 Glucose 260 H Lactic Acid 2.0 Calcium 9.8 Total Bilirubin 1.03 AST 21 ALT 15 Alkaline Phosphatase 61 Total Protein 6.5 Albumin 3.4 Globulin 3.1 Albumin/Globulin Ratio 1.1 Urine Color Urine Clarity Urine pH Ur Specific [place] Urine Protein Urine Glucose (UA) Urine Ketones Urine Occult Blood Urine Nitrite Urine Bilirubin Urine Urobilinogen Ur Leukocyte Esterase Urine RBC Urine WBC Ur Squamous Epith Cells Urine Bacteria Hyaline Casts Urine Mucus 06/22/25 06/22/25 06/22/25 08:40 08:40 09:06 WBC Cancelled 8.6 Corrected WBC Cancelled RBC Cancelled 3.88 L Hgb Cancelled 12.0 Hct Cancelled 36.0 L MCV Cancelled 92.8 MCH Cancelled 30.9 MCHC Cancelled 33.3 RDW Std Deviation Cancelled 50.6 H RDW Coeff of [place]ov[place] Cancelled 15.0 H Plt Count Cancelled 175 MPV Cancelled 12.4 H Immature Gran % (Auto) Cancelled 0.200 Neut % (Auto) Cancelled 56.7 Lymph % (Auto) Cancelled 26.2 [place] % (Auto) Cancelled 11.4 H Eos % (Auto) Cancelled 4.3 Baso % (Auto) Cancelled 1.2 H Absolute Neuts (auto) Cancelled 4.9 Absolute Lymphs (auto) Cancelled 2.25 Total Counted Cancelled Neutrophils % (Manual) Cancelled Band Neutrophils % Cancelled Lymphocytes % (Manual) Cancelled Monocytes % (Manual) Cancelled Eosinophils % (Manual) Cancelled Basophils % (Manual) Cancelled Metamyelocytes % Cancelled Myelocytes % Cancelled Promyelocytes % Cancelled Blast Cells % Cancelled Plasma Cell % (Manual) Cancelled Other Cells % Cancelled Nucleated RBC % Cancelled 0 Nucleated RBCs/100 WBC Cancelled Differential Comment Cancelled Diff Path Review Cancelled Hypersegmented Neuts Cancelled Atypical Lymphocytes Cancelled Reactive Lymphocytes Cancelled Smudge Cells Cancelled Toxic Granulation Cancelled Toxic Vacuolation Cancelled Dohle Bodies Cancelled Radha Rods Cancelled Platelet Estimate Cancelled Plt Morphology Comment Cancelled RBC Morphology Cancelled Cancelled Polychromasia Cancelled Hypochromasia Cancelled Basophilic Stippling Cancelled Anisocytosis Cancelled Microcytosis Cancelled Macrocytosis Cancelled Spherocytes Cancelled Sickle Cells Cancelled Target Cells Cancelled Tear Drop Cells Cancelled Ovalocytes Cancelled Stomatocytes Cancelled [place] Bodies Cancelled [place] Cells Cancelled Bite Cells Cancelled Crenated Cell Cancelled Acanthocytes (Spur) Cancelled Rouleaux Cancelled Schistocytes Cancelled Sodium Potassium Chloride Carbon Dioxide Anion Gap BUN Creatinine Estim Creat Clear Calc Est GFR (MDRD) Non-Af BUN/Creatinine Ratio Glucose Lactic Acid Calcium Total Bilirubin AST ALT Alkaline Phosphatase Total Protein Albumin Globulin Albumin/Globulin Ratio Urine Color Urine Clarity Urine pH Ur Specific [place] Urine Protein Urine Glucose (UA) Urine Ketones Urine Occult Blood Urine Nitrite Urine Bilirubin Urine Urobilinogen Ur Leukocyte Esterase Urine RBC Urine WBC Ur Squamous Epith Cells Urine Bacteria Hyaline Casts Urine Mucus 06/22/25 10:30 WBC Corrected WBC RBC Hgb Hct MCV MCH MCHC RDW Std Deviation RDW Coeff of Yovany Plt Count MPV Immature Gran % (Auto) Neut % (Auto) Lymph % (Auto) [place] % (Auto) Eos % (Auto) Baso % (Auto) Absolute Neuts (auto) Absolute Lymphs (auto) Total Counted Neutrophils % (Manual) Band Neutrophils % Lymphocytes % (Manual) Monocytes % (Manual) Eosinophils % (Manual) Basophils % (Manual) Metamyelocytes % Myelocytes % Promyelocytes % Blast Cells % Plasma Cell % (Manual) Other Cells % Nucleated RBC % Nucleated RBCs/100 WBC Differential Comment Diff Path Review Hypersegmented Neuts Atypical Lymphocytes Reactive Lymphocytes Smudge Cells Toxic Granulation Toxic Vacuolation Dohle Bodies Radha Rods Platelet Estimate Plt Morphology Comment RBC Morphology Polychromasia Hypochromasia Basophilic Stippling Anisocytosis Microcytosis Macrocytosis Spherocytes Sickle Cells Target Cells Tear Drop Cells Ovalocytes Stomatocytes [place] Bodies [place] Cells Bite Cells Crenated Cell Acanthocytes (Spur) Rouleaux Schistocytes Sodium Potassium Chloride Carbon Dioxide Anion Gap BUN Creatinine Estim Creat Clear Calc Est GFR (MDRD) Non-Af BUN/Creatinine Ratio Glucose Lactic Acid Calcium Total Bilirubin AST ALT Alkaline Phosphatase Total Protein Albumin Globulin Albumin/Globulin Ratio Urine Color Yellow Urine Clarity Clear Urine pH 6.0 Ur Specific [place] 1.015 Urine Protein 30 H Urine Glucose (UA) 50 H Urine Ketones Negative Urine Occult Blood Negative Urine Nitrite Negative Urine Bilirubin Negative Urine Urobilinogen Normal Ur Leukocyte Esterase 25 H Urine RBC 0 SEEN Urine WBC 0-5 SEEN Ur Squamous Epith Cells 0-5 SEEN Urine Bacteria 0 SEEN Hyaline Casts 25-50 SEEN Urine Mucus 0 SEEN Radiography Diagnostic Testing: Clinical Impression(s) from Imaging Studies Abdomen/Pelvis CT 06/22/25 08:13 IMPRESSION: 1. Small gallstones. No findings of cholecystitis at this time. 2. Splenic granulomas 3. Incontinence of stool. 4. No acute abnormality 5. Mitral valve calcification. TAVR. Coronary artery disease. Reading Location: [facility] Discharge Plan Triage Chief Complaint: Abd Pain ED Provider: Debbie Mathis Dx/Rx/DC Orders Clinical Impression: Abdominal pain, Constipation Instructions: ED Abdominal Pain Unkn Cause Fem, ED Constipation (Adult) Prescriptions: No Action Eliquis 5 mg tablet 5 mg PO BID Qty: 180 3RF magnesium oxide 400 mg magnesium capsule 400 mg PO BID calcium carbonate-vitamin D3 [Calcium 500 + D] 500 mg-5 mcg (200 unit) tablet 1 tab PO BID metformin 1,000 mg tablet 1,000 mg PO BID metoprolol succinate 50 mg tablet extended release 24 hr 50 mg PO DAILY acetaminophen 325 mg capsule 650 mg PO Q4H PRN (Reason: fever or pain) ondansetron 4 mg tablet,disintegrating 2 mg PO Q6H PRN PRN (Reason: nausea and vomiting) amiodarone 200 mg Tablet 200 mg PO DAILY Rx Instructions: Continue 200 mg twice a day for 7 days, then reduce the dose of Cordarone to 200 mg daily thereafter insulin degludec [Tresiba FlexTouch U-100] 100 unit/mL (3 mL) insulin pen 13 unit subcut DAILY 30 Days Qty: 3.9 0RF (DME) Accu-Chek Guide test strips Strip MISCELLANEOUS (DME) blood-glucose meter [Accu-Chek Guide Me Glucose Mtr] Misc MISCELLANEOUS Patient Comments: [NO ORIGINAL SIG] insulin lispro [Humalog KwikPen Insulin] 100 unit/mL Insulin Pen See Protocol subcut ACHS Qty: 1 0RF Protocol: 3. Sliding Scale Insulin Med Dosing Condition: 150-189 mg/dl = 1 unit Condition: 190-229 mg/dl = 2 units Condition: 230-269 mg/dl = 3 units Condition: 270-309 mg/dl = 4 units Condition: 310-349 mg/dl = 5 units Condition: 350-399 mg/dl = 6 units Condition: 400-449 mg/dl = 7 units Condition: Greater than 449 call physician Protocol Text: Suggested for: - Patients on Total Daily Insulin Dose of 37-55 units - Obese, infected, or steroid patients MEDIUM DOSING ALGORITHIM pantoprazole 40 mg Tablet,Delayed Release (Dr/Ec) 40 mg PO QHS Qty: 0 0RF nystatin 100,000 unit/gram Powder 1 applic topical BID Qty: 0 0RF Protocol: *Topical Application Instructions APPLICATION INSTRUCTIONS: apply to groin furosemide [Lasix] 40 mg tablet 40 mg PO DAILY Qty: 1 0RF Primary Care Provider: Mindy Morrow Referrals: Mindy Morrow MD [Primary Care Provider, Geriatrics] - 3-5 Days Print Language: Dutch Disposition Disposition: Home, Self Care
[2025-06-22] MEDS: 0.9% Normal Saline (1000mL) 1,000 ML 999 ML IV (08:24)
[2025-06-22 09:04] LABS: AST(SGOT) 21 U/L (<=31); Alanine Aminotransfer ALT/SGPT 15 U/L (<=34); Albumin, Serum 3.4 g/dL (3.4-4.8); Alkaline Phosphatase 61 U/L (35-104); Anion Gap 16 (5-15); BUN 34 mg/dL (4-19); BUN/Creat Ratio 18.5 RATIO (10-20); Calcium,Total 9.8 mg/dL (7.6-11.0); Carbon Dioxide 26.1 mmol/L (21.0-32.0); Chloride 95 mmol/L (98-108); Estimated Creatinine Clearance 31.84 ml/min (50-250); Globulin 3.1 g/dL (2.2-4.2); Glucose 260 mg/dL (70-99); Potassium 3.7 mmol/L (3.3-5.1)
[2025-06-22 09:20] LABS: Hematocrit 36.0 % (37-47); Hemoglobin 12.0 g/dL (12.0-15.0); Immature Granulocytes Count 0.020 X10^3/uL (0.0-0.0); Mean Corp Hgb Conc 33.3 g/dL (32-36); Mean Corpuscular Volume 92.8 fL (81-99); Mean Platelet Vol. 12.4 fl (6.2-12.0); NRBC Flagged by Analyzer 0 % (0-5); Platelet Count 175 K/mm3 (150-450); RBC Distribution Width CV 15.0 % (11.6-14.6); RBC Distribution Width SD 50.6 fl (35.1-43.9); Red Blood Count 3.88 M/mm3 (4.2-5.4); White Blood Count 8.6 K/mm3 (4.4-11.0)
[2025-06-22 09:46] VITALS: BP 115/58; PULSE 87; O2SAT 96
[2025-06-22 10:46] LABS: Mucous, Urine 0 SEEN /hpf (<or=2+); Red Blood Cells-Urine 0 SEEN /hpf (0-5)
[2025-06-22 10:49] LABS: Color, Urine Yellow (Yellow); Glucose, Dipstick 50 mg/dl (Normal); Ketone-Dipstick Negative (Negative); Leukocyte Esterase-Dipstick 25 /ul (Negative); Nitrite-Dipstick Negative (Negative); Occult Blood-Urine Negative /ul (Negative); Protein-Dipstick 30 mg/dl (Negative); Specific Gravity, Urine 1.015 (1.002-1.030); Urine Bilirubin Dipstick Negative (Negative)
[2025-06-22 10:56] LABS: Squamous Epithelial Cells - UA 0-5 SEEN /hpf (5-10)
[2025-06-22 11:07] VITALS: BP 147/83; PULSE 80; O2SAT 94
[2025-06-22 12:29] LABS: Reflex Lactate? Y
[2025-06-22 13:00] VITALS: PULSE 72; O2SAT 97
[2025-06-22 14:38] VITALS: BP 132/78; PULSE 64; RESP 18; TEMP 36.9; O2SAT 99
== END 2025-06-22 14:40 | disposition skilled nursing facility (03) ==
PROVIDERS: Emergency Provider Emergency Medicine; PCP Internal Medicine; Visit Provider Emergency Medicine
DX: K59.00 Constipation, unspecified (principal); I48.0 Paroxysmal atrial fibrillation; E11.65 Type 2 diabetes mellitus with hyperglycemia; Z79.4 Long term (current) use of insulin; I10 Essential (primary) hypertension; Z79.01 Long term (current) use of 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; Z79.84 Long term (current) use of oral hypoglycemic drugs; Z79.899 Other long term (current) drug therapy; Z86.16 Personal history of COVID-19
CPT/HCPCS: 74177; 80053; 81001; 83605; 85025; 96361; 96374; 99285; Q9967; A4216; J2405